=== PATIENT | female | born 1970 | race Caucasian/White ===

== ENCOUNTER 2023-05-30 15:47 | Emergency (ER) | payer MEDICAID, SELFPAY ==
[2023-05-30 15:49] VITALS: BP 133/89; PULSE 99; RESP 16; TEMP 36.4; O2SAT 99; BMI 21.1
--- NOTE | 2023-05-30 16:01 | EDS_ITS ---
HPI History of Present Illness Chief Complaint: Back Detail of Chief Complaint: Back pain that she localized to the sacrum area status post fall Informant: patient Onset/Context/Timing Onset: Days Context: Sudden Onset Injury: direct trauma Timing: Continuous Quality: Sharp Location: - (Sacrum) Current Severity: Mild Maximum Severity: Moderate Worsened by: improves with Movement and - (And sitting) Relieved by: Nothing Associated Symptoms Associated Symptoms: Negative for Numbness, Tingling, Radiation to Right Leg, Radiation to Left Leg, Fever, Abdominal Pain, Dysuria, Unable to Ambulate, Unable to Transfer, Urinary Retention, Urinary Incontinence, Constipation or Fecal Incontinence Narrative Narrative: Patient is a 53-year-old woman with history of ankylosing spondylisis, fracture coccyx who fell 5 days ago. She slipped. She landed on her buttocks. She localizes pain to the sacral region. She denies perianal discomfort or buttocks pain. She denies bowel or bladder dysfunction. Denies saddle paresthesia or anesthesia. She does have a history of herniated disc with foot drop. This improved with conservative therapy. She denies fever, chills night sweats. She states her son drove her to the hospital. She is a smoker. She recent saw pulmonology. She is scheduled for outpatient pulmonary testing. Prior similar symptoms: Yes Recent Illness/Hospitalization: Yes PFSH PFSH Home Medications naproxen 500 mg tablet 500 mg PO BID #14 tabs 05/30/23 [Rx Last Taken Unknown] Allergy/AdvReac Type Severity Reaction Status Date / Time No Known Allergies Allergy Verified 05/30/23 15:48 Social History (Updated 05/30/23 @ 16:[address] Addy Faith MD) household members: children Smoking Status: Current every day smoker tobacco type: cigarettes alcohol intake: current substance use type: does not use ROS ROS ED Constitutional Constitutional ED: Denies chills, fever(s), subjective or sweats Gastrointestinal Gastrointestinal: Denies abdominal pain, nausea or vomiting Genitourinary Genitourinary ED: Denies dysuria, hematuria or urinary frequency Musculoskeletal Musculoskeletal: Reports back pain; Denies arthralgias, myalgias or neck pain Integumentary Denies rash Neurologic Neurologic: Denies headache(s), paresthesias or weakness Hematologic/Lymphatic Hematologic/Lymphatic: Denies easy bleeding or easy bruising EXAM Physical Exam Const Vital Signs: 05/30/23 15:49 Temperature 97.6 F L Temperature Source Temporal Pulse Rate 99 Respiratory Rate 16 Blood Pressure 133/89 H Blood Pressure Mean 103 Pulse Ox 99 Oxygen Delivery Method Room Air Positive well nourished and well developed Constitutional Narrative: While patient was told me what happened she began to cry. She became hysterical then. General Appearance ED: well developed and NAD; Negative for pallor HEENT Reports moist mucous membranes Negative for trauma or tenderness Eyes PERRL and EOMs intact bilaterally General Eye ED: Negative for pale conjunctiva or scleral icterus Neck No no lymphadenopathy, No supple and No no JVD Neck Narrative: There is no posterior midline cervical pain. Resp normal respiratory effort and clear to auscultation bilaterally Cardio regular rate, regular rhythm, S1 normal heart sound, S2 normal heart sound and no murmurs GI normal to inspection, nondistended, normoactive bowel sounds, soft to palpation, non-tender, non-distended and no masses Back/Spine normal to inspection Back/Spine Narrative: There is no pain ovation over the the thoracic spine. There is pain ovation at the area of the L5-S1 junction and sacrum. There is no pain the patient over the left or right ischial tuberosity. There is no pain ovation over the pubic symphysis. Sensation L3-S1 is normal on the right. Sensation over S1 dermatome is abnormal. Patient states is chronic. EHL may be slightly diminished on the left compared to the right. Gait was observed. There is no foot drop. Able to walk on heels and toes. Cervical Spine: Negative for cervical spine tenderness Thoracic Spine / Upper Back: paraspinal muscle tenderness Lumbar Spine / Lower Back: straight leg raise negative bilaterally; Negative for ROM limited Extremity normal to inspection and no clubbing, cyanosis or edema General Extremety ED: Negative for edema or tenderness General Extremity: Negative for edema Neuro oriented x3 and no sensory deficits noted Sensorium / Orientation: alert Deep Tendon Reflexes: Rt Patellar (L4): 3+, Lt Patellar (L4): 3+, Rt Ankle (S1): 3+ and Lt Ankle (S1): 3+ Deep Tendon Reflexes Back: Rt Patellar (L4): 3+, Lt Patellar (L4): 3+, Rt Ankle (S1): 3+ and Lt Ankle (S1): 3+ Plantar Reflex: Downgoing: bilateral (There is no clonus.) Psych Mood & Affect: depressed and tearful Skin no rashes or lesions noted and no wounds General Skin Exam: Negative for jaundice or pallor MDM MDM MDM Narrative Medical decision making narrative: With history of fall and ankle spondylitis will obtain x-ray to assess for fracture. She was medicated with oral Naprosyn and [place]. She requested no injections. History & Record Review Additional record(s) reviewed:: Prior outpatient record (Ankylosing spondylitis) Radiography Chest X-Ray - ED: Read by ED Physician (Three-view x-ray of the LS-spine reveals no acute fracture, subluxation or dislocation. There is minimal degenerative changes noted. Disc spaces normal. This is independent reviewed interpreted by me.) Diagnostic Testing: Clinical Impression(s) from Imaging Studies Lumbar Spine X-Ray 05/30/23 16:25 IMPRESSION: Minimal degenerative changes of the lumbar spine. Electronically Signed: Paul Rocha DO at 17:05 EDT Reading Location ID and State: [facility] / [place] Tel [phone], Service support , Treatment and Re-Evaluation Narrative: Patient was discharged home on NSAIDs and she has no contraindication. Suspect there is an obstructive component that is making her pain worse. Discharge Plan Triage Chief Complaint: Back ED Provider: Addy Faith Dx/Rx/DC Orders Clinical Impression: Injury due to fall, Hx of ankylosing spondylitis, Contusion of lower back and pelvis, initial encounter Instructions: ED Coccyx or Sacrum Contusion Prescriptions: New naproxen 500 mg tablet 500 mg PO BID Qty: 14 0RF Primary Care Provider: Care Physician,No Primary Referrals: NOT,DEFINED [Non-Staff] - Doctor,Your [Non-Staff] - 1 Week if not improving Activity Restrictions/Additional Instructions: 1. Apply ice to your low back 6-10 times a day for the next 3 to 5 days 2. Take medicine as prescribed 3. The name of your primary care provider is listed on your insurance card issued to you by [facility] [employer] Disposition Disposition: Home, Self Care
--- NOTE | 2023-05-30 16:13 | ED.RN ---
PT WILL NOT KEEP GOWN ON PUT HER OWN CLOTHES BACK ON
[2023-05-30] MEDS: HYDROcodone Bitartrate/Apap 5/325 Tablet PO (16:19)
[2023-05-30] MEDS: Naproxen 500 MG Tablet PO (16:19)
--- NOTE | 2023-05-30 16:25 | RAD_ITS ---
STUDY: X-RAY - LUMBAR SPINE REASON FOR EXAM: Female, 53 years old. Injury/Pain -- History of ankylosing spondylisis TECHNIQUE: 3 view(s) of the lumbar spine were obtained. COMPARISON: None FINDINGS: Normal lumbar lordosis. There is no substantial scoliosis. There is a normal alignment of the vertebrae. Normal vertebral bodies with minimal spurring at the endplates. Normal disc space heights. The soft tissue structures are unremarkable. RAD/Lumbar Spine 2 or 3 Views IMPRESSION: Minimal degenerative changes of the lumbar spine. Electronically Signed: Paul Rocha DO at 17:05 EDT Reading Location ID and State: [facility] / [place] Tel [phone], Service support ,
[2023-05-30 17:34] VITALS: BP 140/78; PULSE 80; RESP 16; TEMP 36.6; O2SAT 100
== END 2023-05-30 17:35 | disposition home or self-care (01) ==
PROVIDERS: Emergency Provider Emergency Medicine; Visit Provider Emergency Medicine
DX: S30.0XXA Contusion of lower back and pelvis, initial encounter (principal); M53.3 Sacrococcygeal disorders, not elsewhere classified; W01.0XXA Fall on same level from slipping, tripping and stumbling without subsequent striking against object, initial encounter; F17.210 Nicotine dependence, cigarettes, uncomplicated
CPT/HCPCS: 72100; 99283

== ENCOUNTER 2023-07-12 04:45 | Emergency (ER) | payer MEDICAID, SELFPAY ==
[2023-07-12 04:46] VITALS: BP 169/92; PULSE 110; RESP 18; TEMP 36.2; O2SAT 99
--- NOTE | 2023-07-12 05:20 | RAD_ITS ---
INDICATION: pain EXAMINATION/TECHNIQUE: X-RAY - XR Spine Lumbar Min 4 Views COMPARISON: No relevant prior comparison study available FINDINGS: VERTEBRAE: Preserved vertebral body height. No fracture. No spondylolisthesis. Preservation of the normal lumbar lordosis. No significant facet arthropathy. DISCS: Disc spaces are maintained. INCLUDED ABDOMEN: Included bowel gas pattern is non-obstructive. RAD/L/S Spine Min 4 Views IMPRESSION: No evidence of lumbar spinal fracture or spondylolisthesis. Electronically Signed: Yovanny Rooney MD at 6:20 EDT ,
[2023-07-12] MEDS: Oxycodone/Apap 5/325 Tablet PO (05:32)
[2023-07-12 05:45] VITALS: BP 169/92; PULSE 110; RESP 18; TEMP 36.2; O2SAT 99
--- NOTE | 2023-07-12 06:38 | EDS_ITS ---
HPI History of Present Illness Chief Complaint: Back Informant: patient Narrative Narrative: Patient is a 53-year-old female with past medical history of ankylosing spondylitis. She reports she has chronic back pain from this but also has a old injury. She states the other day she had a mechanical fall where she reinjured her back. She denies striking her head any loss of consciousness or history of bleeding disorder or blood thinner use. She states she had increased pain since a fall with any type of motion making it difficult to ambulate or sleep. She states there is been no loss of bowel or bladder control and she denies any history of IV drug use. However based on the persistent pain and difficulty sleeping she presents for evaluation [facility] Medical History no medical history Home Medications ?Medication ?Instructions ?Recorded ?Last Taken ?Type naproxen 500 mg tablet 500 mg PO BID #14 tabs 05/30/23 Unknown Rx oxycodone-acetaminophen 5 mg-325 1 tab PO Q6H PRN pain 5 days #20 07/12/23 Unknown Rx mg tablet (Percocet) tabs Allergy/AdvReac Type Severity Reaction Status Date / Time No Known Allergies Allergy Verified 05/30/23 15:48 Social History (Updated 05/30/23 @ 16:[address] Addy Faith MD) household members: children Smoking Status: Current every day smoker tobacco type: cigarettes alcohol intake: current substance use type: does not use ROS ROS ED Constitutional Constitutional ED: Denies chills or fever(s) Eyes Eyes: Denies change in vision ENT ENT ED: Denies sore throat Cardiovascular Cardiovascular: Denies chest pain Respiratory/Chest Respiratory/Chest: Denies cough or dyspnea Gastrointestinal Gastrointestinal: Denies abdominal pain, diarrhea, nausea or vomiting Genitourinary Genitourinary ED: Denies dysuria Musculoskeletal Musculoskeletal: Reports back pain Integumentary Denies rash Neurologic Neurologic: Denies headache(s), paresthesias or weakness Hematologic/Lymphatic Hematologic/Lymphatic: Denies easy bleeding or easy bruising EXAM Physical Exam Const Vital Signs: 07/12/23 04:46 07/12/23 05:45 Temperature 97.1 F L 97.1 F L Temperature Source Temporal Pulse Rate 110 H 110 H Respiratory Rate 18 18 Blood Pressure 169/92 H 169/92 H Blood Pressure Mean 117 117 Pulse Ox 99 99 Oxygen Delivery Method Room Air Positive well nourished and well developed General Appearance ED: well developed; Negative for pallor HEENT HEENT Narrative: Normocephalic atraumatic Eyes PERRL and EOMs intact bilaterally General Eye ED: Negative for scleral icterus Neck supple Resp normal respiratory effort and clear to auscultation bilaterally Cardio regular rhythm Rate: tachycardic and other Other Details: Tachycardic rate with regular rhythm Radial and carotid pulses are equal and symmetric GI normal to inspection, nondistended, normoactive bowel sounds, non-tender, non- distended and no masses GI Narrative: No voluntary guarding or rigidity or pulsatile mass Auscultation: normoactive bowel sounds Palpation: soft Back/Spine no CVA tenderness Back/Spine Narrative: No bony deformity or step-off of the thoracic or lumbar spine patient does have midline lumbar tenderness with palpation as well as bilateral paralumbar tenderness and spasm that worsens with motion No saddle anesthesia. Negative straight leg raise. No clonus or Babinski. Patellar reflexes are plus 1 out of 4 bilaterally Extremity normal to inspection Extremity Narrative: No asymmetric edema no pitting edema negative Homans' sign bilaterally Neuro oriented x3, CN's II-XII intact bilaterally and no sensory deficits noted Sensorium / Orientation: alert Psych Psych Narrative: Patient has a tearful/anxious affect Mood & Affect: anxious and tearful Skin no rashes or lesions noted and no wounds General Skin Exam: Negative for jaundice or pallor MDM MDM MDM Narrative Medical decision making narrative: Patient arrived to the ER hypertensive and tachycardic but was felt this was secondary to pain. She reported a longstanding history of back problems but states that the pain worsened after a mechanical fall. As she reported the fall was mechanical there is low concern for cardiac or syncopal cause and I do not feel there is need for laboratory testing. She also denies any loss of bowel or bladder control or IV drug use and my concern for cauda equina versus epidural abscess is low. Based on her history there is higher likelihood for potential compression fracture or spondylolisthesis so an x-ray was ordered. X-ray revealed no signs of acute trauma. After patient was treated in ER she had resolution of her pain and felt much better. Therefore at this time with negative x-rays as well as improvement of pain with treatment did not feel there is need for further evaluation and she is otherwise safe for discharge History & Record Review Discussion w/independent historian: Patient Radiography Diagnostic Testing: Clinical Impression(s) from Imaging Studies Lumbar Spine X-Ray 07/12/23 05:20 IMPRESSION: No evidence of lumbar spinal fracture or spondylolisthesis. Electronically Signed: Yovanny Rooney MD at 6:20 EDT Reading Location ID and State: [facility] / [place] Tel , Service support , X-ray of the lumbar spine as interpreted by the emergency medicine physician reveals no acute compression fracture or spondylolisthesis Discharge Plan Triage Chief Complaint: Back ED Provider: Jose Alfaro Dx/Rx/DC Orders Clinical Impression: Lumbar contusion, Ankylosing spondylitis Instructions: Ankylosing Spondylitis in Adults, ED Back Contusion Prescriptions: New oxycodone-acetaminophen [Percocet] 5-325 mg tablet 1 tab PO Q6H PRN (Reason: pain) 5 Days Qty: 20 0RF No Action naproxen 500 mg tablet 500 mg PO BID Qty: 14 0RF Primary Care Provider: Care Physician,No Primary Referrals: Care Physician,No Primary [Primary Care Provider] - Activity Restrictions/Additional Instructions: Please continue home medications as directed by your doctor and return to the ER should you have any further concerns or worsening of symptoms Print Language: Greenlandic Disposition Disposition: Home, Self Care Discharge Date/Time: 07/12/23 07:15
== END 2023-07-12 07:15 | disposition home or self-care (01) ==
PROVIDERS: Emergency Provider Emergency Medicine; Visit Provider Emergency Medicine
DX: S30.0XXA Contusion of lower back and pelvis, initial encounter (principal); M45.9 Ankylosing spondylitis of unspecified sites in spine; G89.29 Other chronic pain; W19.XXXA Unspecified fall, initial encounter; F17.210 Nicotine dependence, cigarettes, uncomplicated; Z79.1 Long term (current) use of non-steroidal anti-inflammatories (NSAID)
CPT/HCPCS: 72110; 99282; J7030; A4216

== ENCOUNTER 2023-10-27 05:24 | Emergency (ER) | payer MEDICAID, SELFPAY ==
[2023-10-27 05:27] VITALS: BP 163/95; PULSE 88; RESP 16; TEMP 36.2; O2SAT 98; BMI 21.9
--- NOTE | 2023-10-27 05:34 | RAD_ITS ---
INDICATION: FALL EXAMINATION/TECHNIQUE: X-RAY - LEFT XR Shoulder Min 2 Views COMPARISON: None. FINDINGS: SOFT TISSUES: Calcification lateral to the humeral head may represent calcific tendinopathy. BONES/JOINTS: No fracture or dislocation. Mild degenerative changes of the acromioclavicular joint and glenohumeral joint. No erosive changes. RAD/Shoulder min 2 Views IMPRESSION: No fracture or dislocation. Electronically Signed: Ron Iqbal DO at 6:46 EDT ,
--- NOTE | 2023-10-27 05:34 | RAD_ITS ---
INDICATION: FALL EXAMINATION/TECHNIQUE: X-RAY - LEFT XR Hip Unilateral with Pelvis when performed; 2-3 Views COMPARISON: None. FINDINGS: SOFT TISSUES: Unremarkable. BONES/JOINTS: No fracture or dislocation. No significant degenerative changes. No erosive changes. RAD/HIP, UNI W/ Pelvis 2-3 Views IMPRESSION: No fracture or dislocation. Electronically Signed: Ron Iqbal DO at 6:48 EDT ,
[2023-10-27] MEDS: oxyCODONE 5 MG Tablet 10 MG PO ×2 (06:34)
--- NOTE | 2023-10-27 06:36 | EX.ED.DYSGE1 ---
HPI History of Present Illness Chief Complaint: General Illness Informant: patient Narrative Narrative: Patient is a 53-year-old female with past medical history of ankylosing spondylitis. She also has a history of seizure disorder. She reports that earlier in the week she had a seizure versus syncopal event where she was walking out of her bedroom towards the dinner table and the next thing she knows she was waking up on the floor. She was taken to an outside facility where she states she was admitted and worked up for this syncope versus seizure and discharged. She states that she believes she injured her shoulder and hip when she had the events and despite taking her medications and [id number] medications there has been no improvement of the pain so she is concerned for potential injury and comes in for evaluation [facility] Medical History (Updated 10/28/23 @ 02:[address] Joes Alfaro, DO) Ankylosing spondylitis Epilepsy Home Medications ?Medication ?Instructions ?Recorded ?Last Taken ?Type duloxetine 60 mg capsule,delayed 60 mg PO DAILY 10/27/23 Unknown History release (Cymbalta) fluticasone fur. 200 mcg-umeclid 1 ea inhalation DAILY 10/27/23 Unknown History 62.5 mcg-vilant 25 mcg inhalat.powder (Trelegy Ellipta) fluticasone propionate 50 2 spray intranasal DAILY PRN 10/27/23 Unknown History mcg/actuation nasal congestion spray,suspension gabapentin 600 mg tablet 600 mg PO TID 10/27/23 Unknown History hydroxyzine HCl 25 mg tablet 25 mg PO DAILY PRN anxiety 10/27/23 Unknown History lamotrigine 150 mg tablet 150 mg PO DAILY 10/27/23 Unknown History oxycodone-acetaminophen 10 mg-325 1 tab PO Q6H PRN pain 3 days #12 10/27/23 Unknown Rx mg tablet (Percocet) tabs Allergy/AdvReac Type Severity Reaction Status Date / Time No Known Allergies Allergy Verified 10/27/23 05:25 Social History (Updated 05/30/23 @ 16:[address] Addy Faith MD) household members: children Smoking Status: Current every day smoker tobacco type: cigarettes alcohol intake: current substance use type: does not use ROS ROS ED Constitutional Constitutional ED: Denies chills or fever(s) Eyes Eyes: Denies blurry vision or change in vision ENT ENT ED: Denies sore throat Cardiovascular Cardiovascular: Denies chest pain, palpitations or racing heartbeat Respiratory/Chest Respiratory/Chest: Denies cough or dyspnea Gastrointestinal Gastrointestinal: Denies abdominal pain, diarrhea, nausea or vomiting Genitourinary Genitourinary ED: Denies dysuria Musculoskeletal Musculoskeletal: Reports other Details: Positive left shoulder and left hip pain ; Denies neck pain Integumentary Denies rash Neurologic Neurologic: Denies headache(s) Hematologic/Lymphatic Hematologic/Lymphatic: Denies easy bleeding or easy bruising EXAM Physical Exam Const Vital Signs: 10/27/23 05:27 10/27/23 05:27 10/27/23 07:06 Temperature 97.2 F L 97.8 F Temperature Source Temporal Pulse Rate 88 69 Respiratory Rate 16 16 Respiratory Effort Normal Non-Labored Respiratory Pattern Normal Blood Pressure 163/95 H 141/99 H Blood Pressure Mean 117 113 Pulse Ox 98 99 Oxygen Delivery Method Room Air Positive well nourished and well developed General Appearance ED: well developed; Negative for pallor HEENT HEENT Narrative: Normocephalic atraumatic Eyes PERRL and EOMs intact bilaterally General Eye ED: Negative for scleral icterus Neck supple Resp normal respiratory effort and clear to auscultation bilaterally Cardio regular rate and regular rhythm GI normal to inspection, nondistended, normoactive bowel sounds, non-tender, non-distended and no masses Auscultation: normoactive bowel sounds Palpation: soft Back/Spine Back/Spine Narrative: No bony deformity or step-off of the thoracic or lumbar spine no midline tenderness to palpation Extremity Extremity Narrative: Bilateral upper and lower extremities are neurovascularly intact There is mild diffuse pain on palpation of the left shoulder without bony deformity joint effusion or sulcus sign Pelvis is stable there is no shortening or external rotation of either lower extremity. Mild diffuse pain on palpation of the left lateral hip. Despite diffuse pain to the shoulder and hip patient is able to bear weight and move all extremities without difficulty. Neuro oriented x3 and CN's II-XII intact bilaterally Sensorium / Orientation: alert Motor Exam: strength 5/5 throughout Psych Psych Narrative: Tearful/anxious affect Skin no rashes or lesions noted and no wounds Skin Narrative: No overlying soft tissue findings to suggest trauma or infection General Skin Exam: Negative for jaundice or pallor MDM MDM MDM Narrative Medical decision making narrative: Patient presented to the ER hypertensive but otherwise with stable vital. She reported that she sustained injuries after a syncopal versus seizure event which have been completely worked up at an outside facility and therefore I felt no need to repeat this workup. With differential diagnosis being contusion versus dislocation versus fracture and elect to perform x-ray. Imaging studies revealed no signs of acute trauma or joint effusion. By exam she does not have overlying soft tissue changes to suggest septic joint cellulitis abscess or gout/pseudogout. Therefore this time I do not feel there is need for further workup and she is given symptomatic medication and discharged. Radiography Diagnostic Testing: Clinical Impression(s) from Imaging Studies Hip/Pelvis X-Ray 10/27/23 05:34 IMPRESSION: No fracture or dislocation. Electronically Signed: Ron Iqbal DO at 6:48 EDT , Shoulder X-Ray 10/27/23 05:34 IMPRESSION: No fracture or dislocation. Electronically Signed: Ron Iqbal DO at 6:46 EDT , X-ray of the left shoulder as interpreted by the emergency medicine physician reveals no acute fracture dislocation or joint effusion X-ray of the left hip with 1 view pelvis as interpreted by the emergency medicine physician reveals no acute fracture or dislocation or joint effusion Discharge Plan Triage Chief Complaint: General Illness ED Provider: Jose Alfaro Dx/Rx/DC Orders Clinical Impression: Contusion of left shoulder, Contusion of hip, left, Ankylosing spondylitis, Epilepsy Instructions: Bruises (Contusions), Ankylosing Spondylitis in Adults Prescriptions: New oxycodone-acetaminophen [Percocet] 10-325 mg tablet 1 tab PO Q6H PRN (Reason: pain) 3 Days Qty: 12 0RF No Action lamotrigine 150 mg tablet 150 mg PO DAILY gabapentin 600 mg tablet 600 mg PO TID hydroxyzine HCl 25 mg tablet 25 mg PO DAILY PRN (Reason: anxiety) duloxetine [Cymbalta] 60 mg capsule,delayed release(DR/EC) 60 mg PO DAILY fluticasone propionate 50 mcg/actuation spray,suspension 2 spray INTRANASAL DAILY PRN (Reason: congestion) Trelegy Ellipta 200-62.5-25 mcg blister with device 1 ea INHALATION DAILY Primary Care Provider: Care Physician,No Primary Referrals: Care Physician,No Primary [Primary Care Provider] - Activity Restrictions/Additional Instructions: Please follow-up with your family doctor for repeat evaluation and continue all of your home medications as directed. If you have any further concerns or worsening of symptoms please return to the ER for repeat evaluation Print Language: French Disposition Disposition: Home, Self Care Discharge Date/Time: 10/27/23 07:06
[2023-10-27 07:06] VITALS: BP 141/99; PULSE 69; RESP 16; TEMP 36.6; O2SAT 99
== END 2023-10-27 07:06 | disposition home or self-care (01) ==
PROVIDERS: Emergency Provider Emergency Medicine; Visit Provider Emergency Medicine
DX: S70.02XA Contusion of left hip, initial encounter (principal); M45.9 Ankylosing spondylitis of unspecified sites in spine; G40.909 Epilepsy, unspecified, not intractable, without status epilepticus; S40.012A Contusion of left shoulder, initial encounter; W18.30XA Fall on same level, unspecified, initial encounter; Y93.01 Activity, walking, marching and hiking; Z79.51 Long term (current) use of inhaled steroids; Z79.899 Other long term (current) drug therapy; F17.210 Nicotine dependence, cigarettes, uncomplicated
CPT/HCPCS: 73030; 73502; 99284

== ENCOUNTER 2024-01-24 14:40 | Emergency (ER) | payer MEDICAID, SELFPAY ==
[2024-01-24 14:41] VITALS: BP 142/93; PULSE 114; RESP 18; TEMP 36.8; O2SAT 98; BMI 22.1
--- NOTE | 2024-01-24 15:06 | ED.VIS.BACK ---
HPI History of Present Illness Chief Complaint: Back Informant: patient Onset/Context/Timing Onset: Days Context: Gradual Onset Timing: Continuous Quality: - (Shock like) Location: Thoracic, Lumbar, Buttock and Right Leg Worsened by: improves with Movement and Ambulation Relieved by: Nothing Associated Symptoms Associated Symptoms: Tingling and Radiation to Right Leg; Negative for Numbness, Radiation to Left Leg, Fever, Abdominal Pain, Dysuria, Unable to Ambulate, Unable to Transfer, Urinary Retention, Urinary Incontinence, Constipation or Fecal Incontinence Narrative Narrative: Patient presents with low back pain that has been getting worse over the past few days. Patient states she slipped and fell and landed on her right hip recently. Patient states she was also recently diagnosed with COVID and pneumonia. Patient states this has flared up her back pain. Patient states she also has a history of ankylosing spondylitis and fibromyalgia. Patient admits to some tingling down her right leg. Patient admits to some pain shooting to her posterior thigh. Patient denies any radiation of the pain to her abdomen. Patient denies any bowel or bladder changes. Patient denies any saddle anesthesia. [facility] Medical History (Updated 01/24/24 @ 17:[address] Edwar Fitzpatrick, DO) Depression Anxiety Fibromyalgia Ankylosing spondylitis Epilepsy Home Medications ?Medication ?Instructions ?Recorded ?Last Taken ?Type duloxetine 60 mg capsule,delayed 60 mg PO DAILY 10/27/23 Unknown History release (Cymbalta) fluticasone fur. 200 mcg-umeclid 1 ea inhalation DAILY 10/27/23 Unknown History 62.5 mcg-vilant 25 mcg inhalat.powder (Trelegy Ellipta) fluticasone propionate 50 2 spray intranasal DAILY PRN 10/27/23 Unknown History mcg/actuation nasal congestion spray,suspension gabapentin 600 mg tablet 600 mg PO TID 10/27/23 Unknown History hydroxyzine HCl 25 mg tablet 25 mg PO DAILY PRN anxiety 10/27/23 Unknown History lamotrigine 150 mg tablet 150 mg PO DAILY 10/27/23 Unknown History oxycodone-acetaminophen 5 mg-325 1 tab PO Q8H PRN pain 3 days #9 01/24/24 Unknown Rx mg tablet (Percocet) tabs Allergy/AdvReac Type Severity Reaction Status Date / Time No Known Allergies Allergy Verified 01/24/24 14:41 Surgical History History of herniorrhaphy Hx of section Social History household members: children Smoking Status: Current every day smoker tobacco type: cigarettes alcohol intake: current substance use type: does not use ROS ROS ED Constitutional Constitutional ED: Denies chills or fever(s) Eyes Eyes: Denies blurry vision or change in vision ENT ENT ED: Denies rhinorrhea or sore throat Cardiovascular Cardiovascular: Denies chest pain or palpitations Respiratory/Chest Respiratory/Chest: Reports cough; Denies dyspnea Gastrointestinal Gastrointestinal: Reports nausea; Denies vomiting Genitourinary Genitourinary ED: Denies dysuria or hematuria Musculoskeletal Musculoskeletal: Reports back pain and neck pain Integumentary Denies abscess or rash Neurologic Neurologic: Reports headache(s); Denies weakness Allergic/Immunologic Allergic/Immunologic ED: Denies mouth swelling or urticaria EXAM Physical Exam Const Vital Signs: 01/24/24 14:41 Temperature 98.3 F Temperature Source Oral Pulse Rate 114 H Respiratory Rate 18 Blood Pressure 142/93 H Blood Pressure Mean 109 Pulse Ox 98 Oxygen Delivery Method Room Air Positive well nourished and well developed General Appearance ED: well developed and NAD HEENT Reports moist mucous membranes Neck supple and no JVD Back/Spine Back/Spine Narrative: There is tenderness over the lumbar spine and paraspinal muscles. There is also tenderness over the right sacroiliac joint. There is tenderness over the sacrum. There is no edema or ecchymosis. Range of motion was slightly limited in all motions of the lumbar spine secondary to pain. Strength is 5/5 bilaterally in the lower extremities. There are no sensory deficits noted. Deep tendon reflexes are 2/4 bilaterally in the lower extremities. Straight leg raises were negative bilaterally. Patient was able to get out of bed and stand on her own without difficulty. Lumbar Spine / Lower Back: ROM limited and straight leg raise negative bilaterally Extremity normal to inspection General Extremety ED: Negative for edema or tenderness General Extremity: Negative for edema Neuro oriented x3 and no sensory deficits noted Sensorium / Orientation: alert Motor Exam: strength 5/5 throughout Deep Tendon Reflexes: Rt Patellar (L4): 2+, Lt Patellar (L4): 2+, Rt Ankle (S1): 2+ and Lt Ankle (S1): 2+ Deep Tendon Reflexes Back: Rt Patellar (L4): 2+, Lt Patellar (L4): 2+, Rt Ankle (S1): 2+ and Lt Ankle (S1): 2+ MDM MDM MDM Narrative Medical decision making narrative: Differential diagnosis includes lumbosacral strain, sacroiliitis, ankylosing spondylitis, hip fracture, and contusion. X-rays of the right hip will be obtained to assess for fracture and arthritis. Radiography Diagnostic Testing: Clinical Impression(s) from Imaging Studies Hip/Pelvis X-Ray 01/24/24 15:53 IMPRESSION: No evidence for acute fracture of the pelvis or right hip Electronically Signed: Ron Solano MD at 16:50 EST , X-rays of the right hip were obtained. There are 3 views. On my independent interpretation, there is no acute fracture or dislocation noted. Radiologist also interpreted the x-rays and agrees. Treatment and Re-Evaluation Narrative: I offered the patient an injection of morphine. Patient states she would prefer to have the pill and requested 10 mg of oxycodone. Patient was given a dose of 5 mg of oxycodone. Patient was given a prescription for a short course of Percocet. Patient was instructed to follow-up with her primary care physician in 3 to 5 days. Patient was instructed return if worse in any way. Patient understood and was agreeable with plan. All questions were answered. Discharge Plan Triage Chief Complaint: Back ED Provider: Edwar Fitzpatrick Dx/Rx/DC Orders Clinical Impression: Sacroiliitis, Fibromyalgia Instructions: ED Sacroiliitis Prescriptions: New oxycodone-acetaminophen [Percocet] 5-325 mg tablet 1 tab PO Q8H PRN (Reason: pain) 3 Days Qty: 9 0RF Discontinued oxycodone-acetaminophen [Percocet] 10-325 mg tablet 1 tab PO Q6H PRN (Reason: pain) 3 Days Qty: 12 0RF No Action lamotrigine 150 mg tablet 150 mg PO DAILY gabapentin 600 mg tablet 600 mg PO TID hydroxyzine HCl 25 mg tablet 25 mg PO DAILY PRN (Reason: anxiety) duloxetine [Cymbalta] 60 mg capsule,delayed release(DR/EC) 60 mg PO DAILY fluticasone propionate 50 mcg/actuation spray,suspension 2 spray INTRANASAL DAILY PRN (Reason: congestion) Trelegy Ellipta 200-62.5-25 mcg blister with device 1 ea INHALATION DAILY Primary Care Provider: Patricia Montalvo MD Referrals: Patricia Montalvo MD [Other] - 2 Days Care Physician,No Primary [Non-Staff] - Activity Restrictions/Additional Instructions: Any further pain medication must be prescribed by your primary care physician or pain management physician. Print Language: Lithuanian Disposition Disposition: Home, Self Care
[2024-01-24] MEDS: oxyCODONE 5 MG Tablet PO (15:43)
--- NOTE | 2024-01-24 15:53 | RAD_ITS ---
STUDY: X-RAY - PELVIS AND RIGHT HIP REASON FOR EXAM: Female, 53 years old. Injury/Pain TECHNIQUE: 3 views of the pelvis and hip. COMPARISON: None. FINDINGS: There is a non-specific bowel gas pattern. Normal visualized soft tissue structures. Normal bilateral iliac wings, sacroiliac joints and visualized sacrum. Normal bilateral superior and inferior pubic rami. Normal pubic symphysis. Normal bilateral ischial tuberosities. Normal visualized femoral head. Normal acetabulum. Normal hip joint. RAD/HIP, UNI W/ Pelvis 2-3 Views IMPRESSION: No evidence for acute fracture of the pelvis or right hip Electronically Signed: Ron Solano MD at 16:50 EST ,
== END 2024-01-24 17:24 | disposition home or self-care (01) ==
PROVIDERS: Emergency Provider Emergency Medicine; Visit Provider Emergency Medicine
DX: M46.1 Sacroiliitis, not elsewhere classified (principal); M45.9 Ankylosing spondylitis of unspecified sites in spine; M79.7 Fibromyalgia; F17.210 Nicotine dependence, cigarettes, uncomplicated; Z79.51 Long term (current) use of inhaled steroids; Z79.899 Other long term (current) drug therapy
CPT/HCPCS: 73502; 99282

== ENCOUNTER 2024-08-21 03:31 | Emergency (ER) | payer MEDICAID, SELFPAY ==
[2024-08-21 03:32] VITALS: BP 170/100; PULSE 107; RESP 16; TEMP 36.7; O2SAT 98; BMI 20.4
[2024-08-21] MEDS: oxyCODONE 5 MG Tablet 10 MG PO (04:05)
--- NOTE | 2024-08-21 04:20 | RAD_ITS ---
PROCEDURE: SHOULDER MIN 2 VIEWS 08/21/2024 REASON FOR EXAM: PAIN TECHNIQUE: SHOULDER MIN 2 VIEWS COMPARISON: None. FINDINGS: Calcific tendinosis at the humeral insertion of the rotator cuff tendons. Mild osteopenia of the visualized bones. Degenerative joint disease. No fracture or dislocation is seen. No lytic or blastic bone lesion is noted. RAD/Shoulder min 2 Views IMPRESSION: No evidence for acute abnormality. Reading Location[facility]
--- NOTE | 2024-08-21 04:20 | RAD_ITS ---
PROCEDURE: HIP, UNI W/ PELVIS 2-3 VIEWS 08/21/2024 REASON FOR EXAM: PAIN TECHNIQUE: HIP, UNI W/ PELVIS 2-3 VIEWS COMPARISON: 01/24/2024. FINDINGS: Mild osteopenia of the visualized bones. Degenerative joint disease. No fracture or dislocation is seen. No lytic or blastic bone lesion is noted. RAD/HIP, UNI W/ Pelvis 2-3 Views IMPRESSION: No evidence for acute abnormality. Reading Location: [facility]
--- OUTSIDE RECORDS SUMMARY | 2024-08-21 04:29 | XMS RPT_ITS | CCD ---
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 Lymphadenopathy Take 1 tablet by mouth every 4 hours as needed for Pain for up to 3 days. 10 tablet 0 07/01/2020 07/04/2020 Active Start: 06-30-2020 HYDROcodone-ac etaminophen (NORCO) 5-325 MG per tablet 1 tablet Start: 06-30-2020 End: 06-30-2020 HYDROcodone-acetaminophen (N ORCO) 5-325 MG per tablet 1 tablet End: 07-22-2023 take 1 tablet by mouth every six hours as needed HYDROcodone-Acetaminophen (NORCO) 10-325 mg per tablet Take 1 tablet by mouth every 6 hours as needed. 07/22/2023 Discontinued Comment on above: Take 1 tablet by vivi th every 6 hours as needed. albuterol sulfate HFA 108 (90 Base) MCG/ACT inhaler (2 sources) Start: 07-29-19 take 2 puff(s) by inhalation every six hours as needed for wheezing albuterol sulfate HFA 108 (90 Base) MCG/ACT inhaler Indications: Bronchitis Inhale 2 puffs into the lungs every 6 hours as needed for Wheezing or Shortness of Breath 1 Inhaler 3 07/29/2019 Active amoxicillin 875 mg / clavulanate 125 mg oral tablet (2 sources) Penicillin-class Antibacterial Start: 02-28-20 End: 03-04-19 take 1 tablet by mouth twice daily amoxicillin-clavul anate (AUGMENTIN) 875-125 MG per tablet Take 1 tablet by mouth 2 times daily for 5 days 10 tablet 02/28/2024 03/04/2024 Active Start: 02-28-2024 End: 02-28-2024 1 tablet, Oral, ONCE, 1 dose , On Sat02/28/24 at 0430, Antimicrobial Indications: Skin and Soft Tissue Infection ascorbic acid 1000 mg oral tablet (1 source) Vitamin C Start: 08-04-2021 take 1 tablet by mouth once daily Ascorbic Acid (VITAMIN C) 1000 MG tablet Indications: COVID Take 1 tablet by mouth daily 30 tablet 3 08/04/2021 Active azithromycin 500 mg oral tablet (2 sources) Macrolide Antimicrobial Start: 08-04-2021 take 1 tablet by mouth once daily azithromycin (ZITHROMAX) 500 MG tablet Indications: COVID Take 1 tablet by mouth daily 5 tablet 0 08/04/2021 Active Start: 07-29-2019 End: 08-03-2019 take 1 tablet by mouth once daily azithromycin (ZITHROMAX) 500 MG tablet Indications: Bronchitis , Acute sinusitis, recurrence not specified, unspecified location Take 1 tablet by mouth daily for 5 days 5 tablet 0 07/29/2019 08/03/2019 Active cephalexin 500 mg oral capsule (5 sources) Cephalosporin Antibacterial Start: 01-04-2024 End: 07-07-2024 take 1 capsule by mouth every eight hours Cephalexin ([id number] MG) 500 MG CAP Active 500 MG PO EVERY 8 HOURS for paronychia 21 09January 04, 2024 8:39am cyclobenzaprine hydrochloride 10 mg oral tablet (20 sources) Muscle Relaxant Start: 08-20-2024 take 1 tablet by mouth three times daily as needed for muscle spasms cyclobenzaprine (Flexeril) 10 mg tablet Indications: Acute on chronic back pain Take 1 tablet (10 mg) by mouth 3 times a day as needed for muscle spasms. 17 tablet 08/20/2024 Active Start: 06-10-2024 End: 06-20-2024 take 1 tablet by mouth twice daily as needed for muscle spasms cyclobenzaprine (FLEXERIL) 5 MG tablet Take 1 tablet by mouth 2 times daily as needed for Muscle spasms 10 tablet 06/10/2024 06/20/2024 Active Start: 09-06-2023 End: 05-22-2024 take 1 tablet by mouth three times daily as needed for muscle spasms cyclobenzaprine (Flexeril) 10 mg tablet Indications: Other chronic pain Take 1 tablet (10 mg) by mouth 3 times a day as needed for muscle spasms for up to 5 days. 15 tablet 05/17/2024 8:26 AM EDT 05/17/2024 Active Start: 09-02-2023 End: 09-02-2023 cyclobenzaprine (FLEXERIL) t ablet 10 mg Start: 07-09-2023 End: 07-09-2023 cyclobenzaprine (FLEXERIL) t ablet 5 mg Start: 06-15-2023 take 10 mg by mouth three times daily as needed for muscle spasms Cyclobenzaprine [Flexeril] 10 MG PO THREE TIMES A DAY PRN For Muscle Spasm June 15, 2023 Active AMANDA number [id number] Start: 06-15-2023 take 10 mg by mouth three times daily as needed for muscle spasms Cyclobenzaprine 10 MG PO THREE TIMES A DAY PRN For Muscle Spasm June 15, 2023 Active AMANDA number [id number] Start: 06-15-2023 End: 06-23-2024 take 1 tablet by mouth three times daily Cyclobenzaprine (Flexeril) 10 MG Tab Active 10 MG PO THREE TIMES A DAY June 15, 2023 12:00am AMANDA number [id number] Start: 04-04-2023 End: 09-05-2023 take 1 tablet by mouth twice daily as needed for muscle spasms Cyclobenzaprine HCl ([id number] M1) 10 MG TAB Discontinued 10 MG PO TWICE A DAY NEEDED as needed for spasm April 04, 2023 8:01am September 05, 2023 5:44am Start: 10-30-2022 End: 04-30-2024 take 1 tablet by mouth three times daily as needed for muscle spasms cyclobenzaprine (Fexmid) 7.5 mg tablet Take 1 tablet (7.5 mg) by mouth 3 times a day as needed for muscle spasms. 10/30/2022 04/30/2024 Discontinued (Med List Cleanup) Start: 08-18-2022 End: 09-25-2022 take 1 tablet by mouth every eight hours Cyclobenzaprine Hcl (Cyclobenzaprine Hydrochlo) 10 MG Tab Discontinued 10 MG PO Q8H August 18, 2022 12:00am September 25, 2022 11:52am Start: 07-31-2022 End: 03-25-2024 take 1 tablet by mouth once daily Cyclobenzaprine 10 mg tablet Discontinued 10 MG PO Every Day July 31, 2022 12:00am March 25, 2024 10:18am Start: 06-02-2022 End: 06-08-2022 take 1 tablet by mouth every eight hours as needed cyclobenzaprine 10 mg oral tablet ; 1 tab(s) orally every 8 hours, As Needed Quantity: 15 Refills: 0 Ordered: 02-Jun-2022 Lisa Roque Start: 02-Jun-2022 End: 08-Jun-2022 Generic Substitution Allowed Comments: May cause drowsiness. Alcohol may intensify this effect. Use care when operating dangerous machinery.Obtain medical advice before taking any non-prescription drugs as some may affect the action of this medication. Comment on above: May cause drowsiness . Alcohol may intensify this effect. Use care when operating dangerous machinery.Obtain medical advice before taking any non-prescription drugs as some may affect the action of this medication. dextromethorphan hydrobromide 2 mg/ml / guaiFENesin 20 mg/ml oral solution (1 source) Uncompetitive P-hdlfis-L-aspartate Receptor Antagonist, Sigma-1 Agonist Start: 020 take 10 mL by mouth three times daily as needed for cough guaiFENesin-dextro methorphan (ROBITUSSIN DM) 100-10 MG/5ML syrup Indications: Bronchitis , Acute sinusitis, recurrence not specified, unspecified location Take 10 mLs by mouth 3 times daily as needed for Cough 240 mL 2 07/29/2019 Active diclofenac sodium 0.01 mg/mg topical gel (20 sources) Nonsteroidal Anti-inflammatory Drug Start: 024 diclofenac (Voltaren) 1 % GEL topical gel Apply 2 g topically 4 times daily. 100 g 04/08/2023 Active Start: 11-19-2022 take 1 tablet by vivi th twice daily Diclofenac Sodium (Diclofenac Sodium Dr) 75 MG Tab Active 75 MG PO TWICE A DAY November 19, 2022 12:00am Start: 06-30-2020 diclofenac sod ium (VOLTAREN) 1 % gel 2 g Start: 05-20-2020 End: 06-30-2020 diclofenac sodium (VOLTAREN) 1 % GEL Apply 2 g topically 4 times daily as needed for Pain 100 g 3 05/20/2020 06/30/2020 Discontinued (LIST CLEANUP) Start: 05-20-2020 diclofenac sod ium (VOLTAREN) 1 % GEL famotidine 20 mg oral tablet (2 sources) Histamine-2 Receptor Antagonist Start: 08-06-2024 take 1 tablet by mouth twice daily famotidine (PEPCID) 20 MG tablet Take 1 tablet by mouth 2 times daily 60 tablet 08/06/2024 Active 30 actuat fluticasone furoate 0.1 mg/actuat / umeclidinium 0.0625 mg/actuat / vilanterol 0.025 mg/actuat dry powder inhaler (4 sources) Anticholinergic, Corticosteroid, beta2-Adrenergic Agonist Start: 12-03-2018 take 1 puff(s) by inhalation once daily fluticasone-umec lidin-vilant (TRELEGY ELLIPTA) 100-62.5-25 MCG/INH AEPB Indications: Cough Inhale 1 puff into the lungs daily 1 each 0 12/03/2018 Active Fluticasone-Umeclid in-Vilanter (9 sources) Start: 05-20-2024 Fluticasone-Umec lidin-Vilanter (Trelegy Ellipta) 200-62.5-25 mcg blister with device Active 1 INH INH Every Day 60 May 20, 2024 12:10pm Start: 08-08-2022 End: 11-25-2022 Avnhmsgexub-Tznnhzzkz-Mjimxq er (Trelegy Ellipta) 200-62.5-25 mcg blister with device Discontinued EACH IH Daily August 07, 2022 11:00pm November 25, 2022 9:56am Start: 08-08-2022 End: 11-25-2022 Kofcuiqskkx-Rmfrptwjb-Dxjghf er (Trelegy Ellipta) 200-62.5-25 mcg blister with device Discontinued EACH IH Daily August 08, 2022 12:00am November 25, 2022 10:56am Start: 07-31-2022 End: 05-20-2024 Btsbuyocvmf-Xgayoxacl-Laahpa er (Trelegy Ellipta) 200-62.5-25 mcg blister with device Discontinued 1 INH INH Every Day July 31, 2022 12:00am May 20, 2024 12:11pm Start: 07-31-2022 Fluticasone-Um eclidin-Vilanter (Trelegy Ellipta) 200-62.5-25 mcg blister with device Active 1 INH INH Every Day July 30, 2022 11:00pm Start: 07-31-2022 Fluticasone-Um eclidin-Vilanter (Trelegy Ellipta) 200-62.5-25 mcg blister with device Active 1 INH INH Every Day July 31, 2022 12:00am zubtoftsrgz-lmpchnjwj-znjceb er (TRELEGY ELLIPTA) 200-62.5-25 mcg inhalation powder (2 sources) Start: 03-02-2024 take 1 puff(s) by inhalation once daily jwykpikdhvc-tmltvmgkv-hhtqllma (TRELEGY ELLIPTA) 200-62.5-25 mcg inhalation powder Inhale 1 Puff as instructed once daily. 03/02/2024 Active gbvifckevci-mekwjildl-ngzqop er (TRELEGY-ELLIPTA) 200-62.5-25 mcg blister with device (18 sources) Start: 12-04-2022 take 1 puff(s) by inhalation once daily ggvuksqmldk-dqkduqcaf-bixysmma (TRELEGY-ELLIPTA) 200-62.5-25 mcg blister with device Indications: Medication refill Inhale 1 puff once daily. 60 each 12/04/2022 Active Start: 12-04-2022 take 1 puff(s) by inhalation once daily uizqgjoptve-bewgqiiww-cynorozg (TRELEGY-ELLIPTA) 200-62.5-25 mcg blister with device Indications: Medication refill Inhale 1 puff once daily. 60 each 0 12/04/2022 Active Mdngaebkfru-Gsnnulitfkvn-Msy an (10 sources) Fluticasone-Umec lidinium-Vilan (TRELEGY ELLIPTA1 AE1) 1 AER Aero Pow Br Act Active 1 AER IN DAILY 60 actuat formoterol fumarat e 0.005 mg/actuat / mometasone furoate 0.1 mg/actuat metered dose inhaler (1 source) Corticost eroid, beta2-Adr energic Agonist St ar t: 22 take 1 puff(s) by inhalation twice daily mometasone-formoterol (DULERA) 100-5 MCG/ACT inhaler Indications: Bronchitis Inhale 1 puff into the lungs 2 times daily 1 each 3 09/11/2021 Active gabapentin 300 mg oral capsu le (20 sources) Anti-epil eptic Agent St ar t: 25 take 1 capsule by mouth once 300 mg, oral, Once, On 07/12/24 at 0340, For 1 dose, Capsules may be opened and sprinkled on food (eg, applesauce, orange juice, pudding Start: 03-17-2024 End: 07-07-2024 take 1 tablet by mouth three times daily gabapentin (NEURONTIN) 600 MG tablet Take 1 tablet by mouth 3 times daily for 12 days. 36 tablet 03/17/2024 05/15/2024 Discontinued (LIST CLEANUP) Start: 03-08-2024 take 600 mg by mouth three times daily 600 mg, Oral, 3 TIMES DAILY, First dose on 03/08/24 at 0900, Until Discontinued Start: 06-02-2023 take 300 mg by mouth three times daily Gabapentin Active 300 MG PO 3 Times a Day June 02, 2023 12:00am Start: 04-04-2023 End: 08-01-2023 take 1 capsule by mouth every twelve hours Gabapentin ([id number] MG) 100 MG CAP Discontinued 100 MG PO EVERY 12 HOURS April 04, 2023 8:01am August 01, 2023 6:44am Start: 07-31-2022 End: 05-20-2024 take 1 capsule by mouth every eight hours Gabapentin 100 mg capsule Discontinued 100 MG PO Q8H July 31, 2022 12:00am May 20, 2024 11:15am Start: 07-02-2022 End: 11-25-2022 take 100 mg by mouth three times daily Gabapentin Discontinued 100 MG PO 3 Times a Day August 08, 2022 12:00am November 25, 2022 10:55am take 1 tablet by vivi th three times daily gabapentin (Neurontin) 800 mg tablet Take 1 tablet (800 mg) by mouth 3 times a day. Active Comment on above: Take 100 mg by mouth three times daily. It is very important that you take or use this exactly as directed. Do not skip doses or discontinue unless directed by your doctor.May cause drowsiness. Alcohol may intensify this effect. Use care when operating dangerous machinery. 12 hr guaiFENesin 600 mg extended release oral tablet (20 sources) Start: End: take 1 tablet by mouth twice daily guaiFENesin (MUCINEX) 600 MG extended release tablet Take 1 tablet by mouth 2 times daily for 15 days 30 tablet 08/01/2024 08/16/2024 Active Start: 07-01-2024 End: 07-16-2024 take 1 tablet by mouth twice daily guaiFENesin (MUCINEX) 600 MG extended release tablet Take 1 tablet by mouth 2 times daily for 15 days 30 tablet 07/01/2024 07/16/2024 Active Start: 03-13-2024 take 1 tablet by vivi th every twelve hours Guaifenesin 600 mg tablet extended release 12hr Active MG PO March 13, 2024 1:00am End: 07-01-2024 take 2 tablets by mouth twice daily as needed for congestion guaiFENesin (MUCINEX) 600 MG extended release tablet Take 2 tablets by mouth 2 times daily as needed for Congestion 07/01/2024 Discontinued (LIST CLEANUP) ibuprofen 600 mg oral tablet (20 sources) Nonsteroidal Anti-inflammatory Drug Start: 08-01-2024 take 1 tablet by mouth every six hours as needed for pain ibuprofen (ADVIL;MOTRIN) 600 MG tablet Take 1 tablet by mouth every 6 hours as needed for Pain 120 tablet 3 08/01/2024 Active Start: 06-03-2024 End: 06-03-2024 take 1 dose by mouth once 600 mg, Oral, ONCE, 1 dose, On Sat06/03/24 at 1500 Start: 11-20-2023 take 1 tablet by vivi th every six hours as needed for pain Ibuprofen ([id number] MG) 600 MG TAB Active 600 MG PO EVERY 6 HOURS NEEDED as needed for pain 56 November 20, 2023 9:03am Start: 09-15-2023 End: 09-15-2023 take 400 mg by mouth once at mealtime as needed for pain 400 mg, oral, Once, On Sat09/15/23 at 0950, For 1 dose, May administer with food to reduce GI upset., If ordered PRN for pain, nurse is permitted to administer this medication for higher pain scores based on patient preference? Yes Start: 09-20-2022 take 1 tablet by vivi th every six hours as needed Ibuprofen 200 mg tablet Active 200 MG PO Q6H as needed September 20, 2022 12:00am Start: 08-28-2022 End: 09-25-2022 take 1 tablet by mouth every six hours as needed Ibuprofen (Motrin) 600 MG Tab Discontinued 600 MG PO EVERY 6 HOURS NEEDED August 28, 2022 12:00am September 25, 2022 11:52am Start: 08-28-2022 End: 07-22-2023 take 800 mg by mouth every eight hours as needed Ibuprofen Discontinued 800 MG PO EVERY 8 HOURS NEEDED August 28, 2022 12:00am September 25, 2022 11:52am Start: 08-12-2022 End: 09-25-2022 take 600 mg by mouth every eight hours as needed Ibuprofen Discontinued 600 MG PO EVERY 8 HOURS NEEDED August 12, 2022 12:00am September 25, 2022 11:52am Start: 07-01-2020 End: 07-06-2020 take 1 tablet by mouth three times daily as needed for pain ibuprofen (ADVIL;MOTRIN) 600 MG tablet Take 1 tablet by mouth 3 times daily as needed for Pain 15 tablet 0 07/01/2020 07/06/2020 Active ibuprofen (ADVIL ;MOTRIN) 400 MG tablet Take 400 mg by mouth every 6 hours as needed for Pain Patient states she takes 12 tablets a day 0 Active Comment on above: Take 800 mg by mouth . ipratropium bromide 0.2 mg/ml inhalation solution (1 source) Anticholinergic Start: 07-01-19 ipratropium (ATROVENT) 0.02 % nebulizer solution 0.5 mg iv contrast (will be provided with radiology test) (1 source) Start: 10-23-19 End: 10-24-19 iv contrast (will be provided with radiology test) Indications: Chronic low back pain with sciatica, sciatica laterality unspecified, unspecified back pain laterality , Sacroiliac pain MRI pelvis ortho Inj, intravenously, once for 1 dose. No IV access, insert saline lock prior to the beginning of sedation, infusion, injection of imaging exam. Discontinue saline lock post exam. If Pt. has a central line or IVAD, may access for administration according to line specific nursing protocol. Once exam is complete flush line and de-access according to line specific nursing protocol in the MR contrast administration guidelines link 1 Each 0 10/22/2022 10/23/2022 Active Comment on above: MRI pelvis ortho Inj , intravenously, once for 1 dose. No IV access, insert saline lock prior to the beginning of sedation, infusion, injection of imaging exam. Discontinue saline lock post exam. If Pt. has a central line or IVAD, may access for administration according to line specific nursing protocol. Once exam is complete flush line and de-access according to line specific nursing protocol in the MR contrast administration guidelines link ketorolac tromethamine 10 mg oral tablet (20 sources) Nonsteroidal Anti-inflammatory Drug, Cyclooxygenase Inhibitor Start: 08-21-19 End: 08-26-19 take 1 tablet by mouth four times daily ketorolac (Toradol) 10 mg tablet Indications: Acute on chronic back pain , Calcific tendinitis of left shoulder Take 1 tablet (10 mg) by mouth 4 times a day for 5 days. 20 tablet 08/20/2024 08/25/2024 Active Start: 08-20-2024 End: 08-20-2024 inject 60 mg by intramuscular injection once 60 mg, intramuscular, Once, On Alicia 08/20/24 at 1055, For 1 dose Start: 08-08-2024 End: 08-08-2024 30 mg, IntraMUSCular, ONCE, 1 dose, On 08/08/24 at 2000, Do not administer for more than 5 days. Start: 08-06-2024 End: 08-06-2024 30 mg, IntraMUSCular, ONCE, 1 dose, On Alicia 08/06/24 at 0445, Do not administer for more than 5 days. Start: 07-08-2024 End: 07-08-2024 30 mg, IntraMUSCular, ONCE, 1 dose, On 07/08/24 at 2100, Do not administer for more than 5 days. Start: 07-01-2024 End: 07-01-2024 inject 1 dose by intramuscular injection once 30 mg, IntraMUSCular, ONCE, 1 dose, On 07/01/24 at 0830 Start: 06-17-2024 End: 06-17-2024 30 mg, IntraMUSCular, Once, 1 dose, On Sat06/17/24 at 0530, Do not administer for more than 5 days. Start: 06-10-2024 End: 06-10-2024 15 mg, IntraVENous, ONCE, 1 dose, On Sat06/10/24 at 1330 Start: 06-05-2024 End: 06-05-2024 15 mg, IntraVENous, ONCE, 1 dose, On Sat06/05/24 at 1700 Start: 06-03-2024 End: 06-03-2024 15 mg, IntraVENous, ONCE, 1 dose, On Sat06/03/24 at 1200, Do not administer for more than 5 days. Start: 05-25-2024 End: 05-25-2024 15 mg, IntraMUSCular, ONCE, 1 dose, On Sat05/25/24 at 1345, Do not administer for more than 5 days. Start: 05-25-2024 End: 05-25-2024 15 mg, IntraVENous, ONCE, 1 dose, On Sat05/25/24 at 1030, Do not administer for more than 5 days. Start: 05-22-2024 End: 05-22-2024 60 mg, IntraMUSCular, ONCE, 1 dose, On Sat05/22/24 at 1400, Do not administer for more than 5 days. Start: 05-17-2024 End: 05-17-2024 15 mg, intravenous, Once, On Sat05/17/24 at 0620, For 1 dose Start: 05-15-2024 End: 05-15-2024 30 mg, IntraMUSCular, ONCE, 1 dose, On Sat05/15/24 at 1115, Do not administer for more than 5 days. Start: 04-30-2024 End: 04-30-2024 inject 30 mg by intramuscular injection once 30 mg, intramuscular, Once, On Alicia 04/30/24 at 0440, For 1 dose Start: 04-24-2024 End: 04-24-2024 30 mg, IntraMUSCular, ONCE, 1 dose, On Sat04/24/24 at 0500, Do not administer for more than 5 days. Start: 04-20-2024 End: 04-20-2024 60 mg, IntraMUSCular, ONCE, 1 dose, On Sat04/20/24 at 1545, Do not administer for more than 5 days. Start: 04-10-2024 End: 04-10-2024 30 mg, IntraVENous, ONCE, 1 dose, On Sat04/10/24 at 0245, Do not administer for more than 5 days. Start: 04-07-2024 End: 04-07-2024 30 mg, IntraMUSCular, ONCE, 1 dose, On Sat04/07/24 at 0500, Do not administer for more than 5 days. Start: 03-17-2024 End: 03-17-2024 15 mg, IntraMUSCular, ONCE, 1 dose, On Tu03/17/24 at 0330, Do not administer for more than 5 days. Start: 03-12-2024 End: 03-12-2024 30 mg, IntraMUSCular, ONCE, 1 dose, On Alicia 03/12/24 at 1915, Do not administer for more than 5 days. Start: 03-08-2024 End: 03-08-2024 15 mg, IntraVENous, ONCE, 1 dose, On Sat03/08/24 at 0100, Do not administer for more than 5 days. Start: 02-28-2024 End: 02-28-2024 30 mg, IntraMUSCular, ONCE, 1 dose, On Sat02/28/24 at 0430, Do not administer for more than 5 days. Start: 02-20-2024 End: 02-20-2024 30 mg, IntraMUSCular, ONCE, 1 dose, On Alicia 02/20/24 at 0515, Do not administer for more than 5 days. Start: 02-11-2024 End: 02-11-2024 30 mg, IntraMUSCular, ONCE, 1 dose, On Sat02/11/24 at 0400, Do not administer for more than 5 days. Start: 02-06-2024 End: 02-06-2024 30 mg, IntraMUSCular, ONCE, 1 dose, On Alicia 02/06/24 at 0300, Do not administer for more than 5 days. Start: 01-21-2024 End: 01-21-2024 15 mg, IntraMUSCular, ONCE, 1 dose, On 01/21/24 at 1815, Do not administer for more than 5 days. Start: 01-18-2024 End: 01-18-2024 30 mg, IntraMUSCular, ONCE, 1 dose, On 01/18/24 at 0815, Do not administer for more than 5 days. Start: 01-13-2024 End: 01-13-2024 30 mg, IntraMUSCular, ONCE, 1 dose, On 01/13/24 at 0845, Do not administer for more than 5 days. Start: 01-09-2024 End: 01-09-2024 15 mg, IntraMUSCular, ONCE, 1 dose, On Alicia 01/09/24 at 0500, Do not administer for more than 5 days. Start: 12-29-2023 End: 12-29-2023 30 mg, IntraVENous, ONCE, 1 dose, On 12/29/23 at 0800, Do not administer for more than 5 days. Start: 12-03-2023 End: 12-03-2023 30 mg, IntraMUSCular, ONCE, 1 dose, On 12/03/23 at 0430, Do not administer for more than 5 days. Start: 10-18-2023 End: 10-18-2023 30 mg, IntraVENous, ONCE, 1 dose, On Sat10/18/23 at 0945, Do not administer for more than 5 days. Start: 09-06-2023 End: 09-06-2023 inject 1 dose by intramuscular injection once 30 mg, Intramuscular, ONCE, 1 dose, On Sat09/06/23 at 0617 Start: 08-06-2023 take 1 tablet by vivi th every six hours as needed for pain ketorolac (TORADOL) 10 MG tablet Take 1 Tablet by mouth every 6 hours as needed for Pain. 20 Tablet 08/06/2023 Active Start: 08-06-2023 End: 08-06-2023 inject 1 dose by intramuscular injection once 15 mg, Intramuscular, ONCE, 1 dose, On 08/06/23 at 0659 Start: 07-09-2023 End: 07-09-2023 ketorolac (TORADOL) injectio n 30 mg Start: 05-31-2023 End: 05-31-2023 ketorolac (TORADOL) injectio n 30 mg Start: 05-06-2023 End: 05-06-2023 ketorolac (TORADOL) injectio n 30 mg Start: 04-25-2023 End: 04-25-2023 ketorolac (TORADOL) injectio n 30 mg Start: 03-10-2023 End: 03-10-2023 ketorolac (Toradol) injectio n 30 mg Start: 10-31-2022 End: 10-31-2022 ketorolac (TORADOL) 30 MG/ML injection Start: 08-17-2022 End: 08-17-2022 ketorolac (TORADOL) injectio n 30 mg Start: 06-23-2022 End: 06-23-2022 ketorolac (TORADOL) injectio n 30 mg lamoTRIgine 150 mg oral tablet (20 sources) Mood Stabilizer, Anti-epileptic Agent Start: 03-08-2024 take 150 mg by mouth once daily 150 mg, Oral, DAILY, First dose (after last reorder) on 03/08/24 at 1015, Until Discontinued Start: 09-25-2022 take 150 mg by mouth once vicente y Lamotrigine Active 150 MG PO DAILY September 25, 2022 12:00am Start: 07-31-2022 End: 05-20-2024 lamoTRIgine (LAMICTAL) 150 m g tablet 150 mg. 05/15/2023 Active Start: 03-07-2022 End: 03-09-2024 take 1 tablet by mouth twice daily lamoTRIgine (LAMICTAL) 150 MG tablet Indications: PTSD (post-traumatic stress disorder) , Sacroiliitis (HCC) Take 1 tablet by mouth 2 times daily 180 tablet 1 03/07/2022 03/09/2024 Discontinued (Stop Taking at Discharge) Start: 01-30-2021 take 1 tablet by vivi th twice daily lamoTRIgine (LAMICTAL) 150 MG tablet Indications: PTSD (post-traumatic stress disorder) , Sacroiliitis (HCC) Take 1 tablet by mouth 2 times daily 180 tablet 1 01/30/2021 Active Start: 06-30-2020 lamoTRIgine (L AMICTAL) tablet 150 mg Start: 05-20-2020 take 1 tablet by vivi th twice daily lamoTRIgine (LAMICTAL) 150 MG tablet Indications: Sacroiliitis (HCC) , PTSD (post-traumatic stress disorder) Take 1 tablet by mouth 2 times daily 180 tablet 1 05/20/2020 Active Start: 05-11-2019 take 150 mg by mouth once vicente y Lamotrigine Active 150 MG PO Daily August 08, 2022 12:00am Start: 11-02-2018 take 1 tablet by vivi th twice daily lamoTRIgine (LAMICTAL) 150 MG tablet Take 1 tablet by mouth 2 times daily 0 11/02/2018 Active Start: 11-19-2014 take 1 tablet by vivi th twice daily lamoTRIgine (LAMICTAL) 100 mg tablet Take 1 tablet by mouth twice daily. 60 tablet 6 11/19/2014 Active Start: 11-19-2014 End: 10-24-2022 lamoTRIgine (LAMICTAL) 25 mg tablet to be increased to 3 tabs bid 100 tablet 0 11/19/2014 10/24/2022 Discontinued (Dosage adjustment) Comment on above: to be increased to 3 tabs bid Take 1 tablet by vivi th twice daily. lidocaine 0.05 mg/mg medicated patch (20 sources) Antiarrhythmic, Amide Local Anesthetic Start: apply 1 dose transdermal route every twelve hours, then apply 1 dose transdermal route every twelve hours lidocaine (Lidoderm) 5 % patch Indications: Acute on chronic back pain Place 1 patch over 12 hours on the skin once daily. Remove & discard patch within 12 hours or as directed by . 5 patch 08/20/2024 Active Start: 08-20-2024 1 patch, trans dermal, Administer over 12 Hours, Once, On Alicia 08/20/24 at 1055, For 1 dose, Apply to point of maximum pain. Patch will remain on for 12 hours, then removed for [address] patch directly over any surgical incisions or wounds. Start: 08-08-2024 1 patch, Trans DERmal, Administer over 12 Hours, Once, On 08/08/24 at 2030, For 1 dose, Apply patch to right hip. The product development consultant's recommendations for the number of patches that can be applied within a 24-hour period varies from 1 to 4 times daily and the duration of application varies from 8 to 24 hours; refer to the product development consultant's labeling for product-specific recommendations. Start: 07-01-2024 End: 07-31-2024 apply 1 dose transdermal route once daily lidocaine 4 % external patch Place 1 patch onto the skin daily 30 patch 07/01/2024 07/31/2024 Active Start: 07-01-2024 1 patch, Trans DERmal, Administer over 12 Hours, ONCE, On 07/01/24 at 0830, For 1 dose, Apply patch to low back. The product development consultant's recommendations for the number of patches that can be applied within a 24-hour period varies from 1 to 4 times daily and the duration of application varies from 8 to 24 hours; refer to the product development consultant's labeling for product-specific recommendations. Start: 04-20-2024 1 patch, Trans DERmal, Administer over 12 Hours, ONCE, On Sat04/20/24 at 1545, For 1 dose, Apply patch to shoulder l The product development consultant's recommendations for the number of patches that can be applied within a 24-hour period varies from 1 to 4 times daily and the duration of application varies from 8 to 24 hours; refer to the product development consultant's labeling for product-specific recommendations. Start: 04-20-2024 End: 04-30-2024 lidocaine (LIDODERM) 5 % Jerod ce 2 patches onto the skin daily for 10 days 12 hours on, 12 hours off. 30 patch 1 04/20/2024 04/30/2024 Active Start: 03-18-2024 End: 04-17-2024 apply 1 dose transdermal route once daily lidocaine 4 % external patch Place 1 patch onto the skin daily 30 patch 03/18/2024 04/17/2024 Active Start: 03-13-2024 End: 05-20-2024 apply 1 dose transdermal route once daily Lidocaine 5 % adhesive patch,medicated Active 0 .ROUTE .COMPLEX May 20, 2024 12:09pm APPLY 1 PATCH TOPICALLY TO THE SKIN DAILY. MAY WEAR UP TO 12 HOURS; Start: 11-20-2023 End: 12-21-2023 Lidocaine (LIDODERM PATCH1 E ACH) 1 EACH PATCH Discontinued 1 SURINDER TOP DAILY November 20, 2023 9:03am December 21, 2023 12:07am Start: 10-08-2023 End: 10-08-2023 lidocaine (PF) 10 mg/mL (1 % ) 100 mg injection (XYLOCAINE) Start: 09-30-2023 Lidocaine (Lid ocaine Patch 5%) 5 % Pad Active 5 % EX EVERY 12 HOURS September 30, 2023 12:00am Start: 09-06-2023 apply 1 dose transde rmal route every twenty-four hours lidocaine (Lidoderm) 5 % patch Place 1 Patch on the skin every 24 hours. 10 Patch 3 09/06/2023 Active Start: 09-06-2023 apply 1 dose transde rmal route every twelve hours, then apply 1 dose transdermal route once 1 patch, transdermal, Administer over 12 Hours, Once, On Sat09/06/23 at 0725, For 1 dose, Apply to affected area Start: 11-19-2022 End: 09-05-2023 apply 5 doses topically once daily Lidocaine (LIDOCAINE PATCH 55 %) 5 % Patch Discontinued 5 % TOP DAILY April 04, 2023 8:33am September 05, 2023 5:44am Start: 11-19-2022 End: 08-13-2023 lidocaine (LIDODERM) 5 % Start: 10-31-2022 apply 1 dose transde rmal route every twenty-four hours lidocaine (Lidoderm) 5 % patch Place 1 Patch on the skin every 24 hours. (12 hours on, 12 hours off) 10 Patch 0 10/31/2022 Active Start: 09-05-2022 End: 10-02-2023 LIDOCAINE PAIN RELIEF 4 % pa tch Start: 09-05-2022 End: 08-08-2023 apply 1 dose transdermal route once daily lidocaine 4 % external patch Place 1 patch onto the skin daily 30 patch 0 07/09/2023 08/08/2023 Active Start: 07-31-2022 End: 03-18-2024 apply 1 dose transdermal route once daily lidocaine (LIDODERM) 5 % Place 1 patch onto the skin daily 12 hours on, 12 hours off. 30 patch 03/17/2024 03/18/2024 Discontinued (LIST CLEANUP) Start: 06-25-2022 End: 07-24-2022 Lidoderm 5% topical film ; A pply topically to affected area once a day Quantity: 1 Refills: 0 Ordered: 25-Jun-2022 Amandeep Marcial Start: 25-Jun-2022 End: 24-Jul-2022 Generic Substitution Allowed Comments: For external use only.Remove old patch prior to applying a new patch. Start: 06-23-2022 End: 07-08-2022 apply 1 dose transdermal route once daily lidocaine 4 % external patch Place 1 patch onto the skin daily for 15 days 15 each 0 06/23/2022 07/08/2022 Active Comment on above: For external use onl y.Remove old patch prior to applying a new patch. 50 ml magnesium sulfate 40 mg/ml injection (1 source) Start: 5 meloxicam 7.5 mg oral tablet (13 sources) Nonsteroidal Anti-inflammatory Drug Start: 3 End: 4 take 1 tablet by mouth once meloxicam (MOBIC) 7.5 mg tablet Take 1 tablet by mouth every afternoon. 0 09/13/2022 08/20/2023 Discontinued Start: 05-11-2019 End: 11-07-2019 take 1 tablet by mouth once daily meloxicam (MOBIC) 15 MG tablet Indications: DDD (degenerative disc disease), lumbar , Sacroiliitis (HCC) Take 1 tablet by mouth daily 90 tablet 1 05/11/2019 11/07/2019 Active Start: 02-11-2019 take 1 tablet by vivi th once daily meloxicam (MOBIC) 15 MG tablet Take 1 tablet by mouth daily 30 tablet 0 02/11/2019 Active Start: 01-08-2019 End: 02-02-2019 take 1 tablet by mouth once daily meloxicam (MOBIC) 7.5 MG tablet Take 1 tablet by mouth daily 30 tablet 0 01/08/2019 02/02/2019 Discontinued (LIST CLEANUP) Meloxicam 10 MG CAPS Take by mouth Unsure of dose Active MELOXICAM PO Kevin e by mouth 0 Active metaxalone 800 mg oral tablet (1 source) Start: 05-16-2023 End: 05-21-2023 Skelaxin 800 mg oral tablet Dose : 800 mg = 1 tab(s), Oral, TID, X 5 day(s), # 15 tab(s), 0 Refill(s), 05/21/23 5:55:00 AM EDT Start Date: 05/16/23 Stop Date: 05/21/23 Status: Ordered methocarbamol 500 mg oral tablet (20 sources) Muscle Relaxant Start: 08-01-2024 End: 08-11-2024 take 1 tablet by mouth four times daily methocarbamol (ROBAXIN) 500 MG tablet Take 1 tablet by mouth 4 times daily for 10 days 40 tablet 08/01/2024 08/11/2024 Active Start: 07-01-2024 End: 07-04-2024 take 1 tablet by mouth three times daily methocarbamol (ROBAXIN-750) 750 MG tablet Take 1 tablet by mouth 3 times daily for 3 days 9 tablet 07/01/2024 07/04/2024 Active Start: 05-20-2024 End: 06-01-2024 take 1 tablet by mouth four times daily methocarbamol (ROBAXIN) 750 mg tablet Take 750 mg by mouth four times daily. 05/22/2024 Active Start: 12-06-2022 End: 07-22-2023 take 1 tablet by mouth four times daily methocarbamol (ROBAXIN-750) 750 MG tablet Take 1 tablet by mouth 4 times daily for 10 days 40 tablet 0 07/09/2023 07/19/2023 Active Start: 11-19-2022 take 1000 mg by mout h four times daily Methocarbamol [Robaxin] 1000 MG PO FOUR TIMES A DAY November 19, 2022 Active Start: 11-19-2022 take 1000 mg by mout h four times daily Methocarbamol 1000 MG PO FOUR TIMES A DAY November 19, 2022 Active Start: 11-19-2022 take 2 tablets by mo uth four times daily Methocarbamol (Robaxin) 500 MG Tab Active 1000 MG PO FOUR TIMES A DAY November 19, 2022 12:00am Start: 09-25-2022 Methocarbamol MG PO NEEDED PRN September 25, 2022 Active Start: 09-25-2022 Methocarbamol Active MG PO NEEDED September 25, 2022 12:00am Start: 08-04-2022 End: 11-25-2022 Methocarbamol Discontinued 5 00 MG PO As Needed August 08, 2022 12:00am November 25, 2022 10:55am Comment on above: May cause drowsiness . Alcohol may intensify this effect. Use care when operating dangerous machinery. methylPREDNISolone 4 mg oral tablet (20 sources) Corticosteroid Start: 04-11-2024 End: 04-17-2024 Medrol Dosepak 4 mg oral tablet 1 packet(s), Oral, qDay, as directed on package labeling, X 6 day(s), # 21 tab(s), 0 Refill(s), 04/17/24 10:49:00 AM EST Start Date: 04/11/24 Stop Date: 04/17/24 Status: Ordered Quantity: 21.0 Unit: tab(s) Repeat number: 1 Start: 03-18-2024 End: 03-24-2024 methylPREDNISolone (MEDROL, BEE,) 4 MG tablet Take by mouth. 1 kit 03/18/2024 03/24/2024 Active Start: 01-21-2024 End: 01-27-2024 methylPREDNISolone (MEDROL, BEE,) 4 MG tablet Take by mouth. 1 kit 01/21/2024 01/27/2024 Active Start: 10-08-2023 End: 10-08-2023 methylPREDNISolone acetate 4 0 mg injection (DEPO-Medrol) Start: 09-30-2023 Methylpredniso lone (Medrol Dosepak) 4 MG Bee Active 4 MG PO DIRECTED September 30, 2023 12:00am Start: 10-22-2022 End: 10-22-2022 methylPREDNISolone acetate 4 0 mg injection (DEPO-Medrol) Start: 08-09-2022 End: 09-25-2022 take 1 tablet by mouth once daily Methylprednisolone (Medrol Dosepak) 4 MG Tab Discontinued 4 MG PO DAILY August 18, 2022 12:00am September 25, 2022 11:52am End: 09-02-2023 take 0.5 tablet by mouth once daily methylPREDNISolone (MEDROL) 4 MG tablet Take 0.5 tablets by mouth daily 0 09/02/2023 Discontinued (LIST CLEANUP) metoclopramide 10 mg oral tablet (4 sources) Dopamine-2 Receptor Antagonist Start: 08-06-2024 take 1 tablet by mouth three times daily as needed for nausea metoclopramide (REGLAN) 10 MG tablet Take 1 tablet by mouth 3 times daily as needed (nausea) 15 tablet 08/06/2024 Active Start: 10-18-2023 End: 10-18-2023 10 mg, IntraVENous, ONCE, 1 dose, On Sat10/18/23 at 0945, IV Push: Max 10 mg over 1-2 minutes. Start: 09-29-2023 End: 09-29-2023 metoclopramide (REGLAN) inje ction 10 mg naproxen 500 mg oral tablet (20 sources) Nonsteroidal Anti-inflammatory Drug Start: 05-22-2024 End: 08-01-2024 take 1 tablet by mouth twice daily as needed for pain naproxen (NAPROSYN) 500 MG tablet Take 1 tablet by mouth 2 times daily as needed for Pain 60 tablet 05/22/2024 08/01/2024 Discontinued (LIST CLEANUP) Start: 09-02-2023 End: 05-17-2024 take 1 tablet by mouth twice daily as needed for pain naproxen (NAPROSYN) 500 MG tablet Take 1 tablet by mouth 2 times daily as needed for Pain 60 tablet 05/22/2024 Active Start: 06-15-2023 take 500 mg by mouth twice daily as needed for pain Naproxen [Naprosyn] 500 MG PO TWICE A DAY PRN For Pain June 15, 2023 Active Start: 06-15-2023 take 500 mg by mouth twice daily as needed for pain Naproxen 500 MG PO TWICE A DAY PRN For Pain June 15, 2023 Active Start: 06-02-2023 take 1000 mg by mouth once tamiko ly Naproxen Active 1000 MG PO Daily June 02, 2023 12:00am Start: 04-14-2023 End: 05-20-2024 take 1 tablet by mouth every twelve hours in the morning naproxen (Naprosyn) 500 mg tablet Indications: pain Take 1 tablet (500 mg) by mouth every 12 hours. 20 tablet 05/17/2024 8:26 AM EDT 05/17/2024 Active Start: 12-06-2022 End: 09-02-2023 take 1 tablet by mouth twice daily at mealtime as needed for pain naproxen (EC NAPROSYN) 500 MG EC tablet Take 1 tablet by mouth 2 times daily (with meals) For pain relief as needed 20 tablet 0 05/06/2023 09/02/2023 Discontinued (LIST CLEANUP) Start: 09-25-2022 Naproxen MG PO NEEDED PRN September 25, 2022 Active Start: 09-25-2022 Naproxen Activ e MG PO NEEDED September 25, 2022 12:00am Start: 08-04-2022 take 1 tablet by vivi th every twelve hours naproxen 500 mg oral tablet ; 1 tab(s) orally every 12 hours as needed for pain or swelling. Quantity: 20 Refills: 0 Ordered: 04-Aug-2022 Driss Thomasn Aylin Start: 04-Aug-2022 Generic Substitution Allowed Comments: Check with your doctor before becoming .May cause drowsiness or dizziness.Obtain medical advice before taking any non-prescription drugs as some may affect the action of this medication.Take with food or milk. Start: 06-25-2022 End: 05-22-2024 take 1 tablet by mouth twice daily Naproxen (Naprosyn) 500 MG Tab Active 500 MG PO TWICE A DAY June 15, 2023 12:00am End: 08-01-2023 take 1 tablet by mouth every twelve hours Naproxen Sodium (Vsuie611 MG) 220 MG TAB Discontinued 220 MG PO EVERY 12 HOURS August 01, 2023 6:44am Comment on above: Check with your doct or before becoming .May cause drowsiness or dizziness.Obtain medical advice before taking any non-prescription drugs as some may affect the action of this medication.Take with food or milk. omeprazole 40 mg delayed release oral capsule (6 sources) Proton Pump Inhibitor Start: 04-27-19 take 1 capsule by mouth once daily omeprazole (PRILOSEC) 40 mg capsule Take 1 capsule by mouth once daily. 04/27/2024 Active End: 10-24-2022 take 1 capsule by mouth once daily omeprazole (PRILOSEC) 20 mg capsule Take 20 mg by mouth once daily. 0 10/24/2022 Discontinued (Discontinued by another Health Care Provider) Comment on above: Take 20 mg by mouth once daily. ondansetron 4 mg disintegrating oral tablet (16 sources) Serotonin-3 Receptor Antagonist Start: 08-07-19 take 1 tablet by mouth three times daily as needed for nausea ondansetron (ZOFRAN-ODT) 4 MG disintegrating tablet Take 1 tablet by mouth 3 times daily as needed for Nausea or Vomiting 21 tablet 08/06/2024 Active Start: 07-01-2024 take 1 tablet by vivi th three times daily as needed for nausea ondansetron (ZOFRAN-ODT) 4 MG disintegrating tablet Take 1 tablet by mouth 3 times daily as needed for Nausea or Vomiting 21 tablet 07/01/2024 Active Start: 05-02-2024 End: 05-02-2024 4 mg, IntraVENous, ONCE, 1 d ose, On 05/02/24 at 0530 Start: 04-20-2024 End: 04-20-2024 take 1 dose by mouth once 4 mg, Oral, ONCE, 1 dose, On 04/20/24 at 1545 Start: 04-20-2024 End: 04-25-2024 take 1 tablet by mouth every eight hours as needed ondansetron (ZOFRAN) 4 mg tablet Take 4 mg by mouth every 8 hours as needed for nausea/vomiting. 04/20/2024 Active Start: 03-08-2024 4 mg, IntraVEN ous, EVERY 6 HOURS PRN, Starting on 03/08/24 at 0058, Until Discontinued, Nausea, Vomiting Start: 12-29-2023 End: 12-29-2023 4 mg, IntraVENous, ONCE, 1 d ose, On 12/29/23 at 0800 Start: 06-23-2022 End: 06-23-2022 ondansetron (ZOFRAN-ODT) disintegrating tablet 4 mg polyethylene glycol 3350 170 00 mg powder for oral solution (2 sources) Osmotic Laxative Start: 03-08-2024 Start: 06-30-2020 polyethylene g lycol (GLYCOLAX) packet 17 g Potassium Chloride (1 source) Start: 03-08-2024 potassium chlo ride (KLOR-CON M) extended release tablet 40 mEq predniSONE 50 mg oral tablet (20 sources) Start: 08-01-2024 End: 08-06-2024 take 1 tablet by mouth once daily predniSONE (DELTASONE) 50 MG tablet Take 1 tablet by mouth daily for 5 days 5 tablet 08/01/2024 08/06/2024 Active Start: 07-01-2024 End: 07-06-2024 take 1 tablet by mouth once daily predniSONE (DELTASONE) 50 MG tablet Take 1 tablet by mouth daily for 5 days 5 tablet 07/01/2024 07/06/2024 Active Start: 07-01-2024 End: 07-01-2024 take 1 dose by mouth once 60 mg, Oral, ONCE, 1 dose, O n 07/01/24 at 0830 Start: 06-03-2024 End: 06-08-2024 take 2 tablets by mouth once daily predniSONE (DELTASONE) 20 MG tablet Take 2 tablets by mouth daily for 5 days 10 tablet 06/03/2024 06/08/2024 Active Start: 09-02-2023 End: 09-14-2023 predniSONE (DELTASONE) 10 MG tablet Take 4 tablets by mouth daily for 3 days, THEN 3 tablets daily for 3 days, THEN 2 tablets daily for 3 days, THEN 1 tablet daily for 3 days. Take by oral route 4 tabs x 3 days, then 3 tabs x 3 days, then 2 tabs x 3 days, then 1 tab x 3 days, then discontinue. Take with food.. 30 tablet 0 09/02/2023 09/14/2023 Active Start: 06-02-2023 take 20 mg by mouth once daily Prednisone Active 20 MG PO Daily June 02, 2023 12:00am Start: 04-14-2023 predniSONE (De ltasone) 10 mg tablet Indications: Contusion of sacrum, initial encounter , Sprain of left shoulder, unspecified shoulder sprain type, initial encounter Take three tablets orally day 1-3, two tablets day 4-6, and one tablet day 7-9 18 tablet 04/14/2023 Active Start: 12-04-2022 End: 12-09-2022 take 1 tablet by mouth once daily predniSONE (Deltasone) 50 mg tablet Indications: Acute exacerbation of chronic low back pain Take 1 tablet (50 mg) by mouth once daily for 5 days. 5 tablet 0 12/04/2022 12/09/2022 Start: 07-31-2022 End: 05-20-2024 Prednisone 10 mg tablet Discontinued 10 MG PO July 31, 2022 12:00am May 20, 2024 12:11pm Start: 06-25-2022 End: 06-29-2022 take 1 tablet by mouth once daily at mealtime predniSONE 20 mg oral tablet ; 2 tab(s) orally once a day- starting on 06/26/22 Quantity: 10 Refills: 0 Ordered: 25-Jun-2022 Amandeep Marcial Start: 25-Jun-2022 End: 29-Jun-2022 Generic Substitution Allowed Comments: It is very important that you take or use this exactly as directed. Do not skip doses or discontinue unless directed by your doctor.Obtain medical advice before taking any non-prescription drugs as some may affect the action of this medication.Take with food or milk. Start: 06-23-2022 End: 06-28-2022 take 2 tablets by mouth once daily predniSONE (DELTASONE) 20 MG tablet Take 2 tablets by mouth daily for 5 days 10 tablet 0 06/23/2022 06/28/2022 Active Start: 06-02-2022 End: 06-06-2022 take 1 tablet by mouth once daily at mealtime predniSONE 50 mg oral tablet ; 1 tab(s) orally once a day Quantity: 5 Refills: 0 Ordered: 02-Jun-2022 Lisa Roque Start: 02-Jun-2022 End: 06-Jun-2022 Generic Substitution Allowed Comments: It is very important that you take or use this exactly as directed. Do not skip doses or discontinue unless directed by your doctor.Obtain medical advice before taking any non-prescription drugs as some may affect the action of this medication.Take with food or milk. Comment on above: It is very important that you take or use this exactly as directed. Do not skip doses or discontinue unless directed by your doctor.Obtain medical advice before taking any non-prescription drugs as some may affect the action of this medication.Take with food or milk. Promethazine (1 source) Phenothiazine Start: 06-30-2020 promethazine (PHENERGAN) tablet 12.5 mg rizatriptan 10 mg oral tablet (5 sources) Serotonin-1b and Serotonin-1d Receptor Agonist Start: 06-15-2023 Rizatriptan Benzoate [Maxalt] 10 MG PO DAILY PRN June 15, 2023 Active Take 110 mg tablet at time of onset of headache. May repeat once in a 24-hour period. Start: 06-15-2023 Rizatriptan Be nzoate 10 MG PO DAILY PRN June 15, 2023 Active Take 110 mg tablet at time of onset of headache. May repeat once in a 24-hour period. Start: 06-15-2023 Rizatriptan Be nzoate (Maxalt) 10 MG Tab Active 10 MG PO DAILY June 15, 2023 12:00am Take 110 mg tablet at time of onset of headache. May repeat once in a 24-hour period. sulfamethoxazole 800 mg / trimethoprim 160 mg oral tablet (2 sources) Dihydrofolate Reductase Inhibitor Antibacterial, Sulfonamide Antimicrobial Start: 10-27-2023 End: 11-03-2023 take 1 tablet by mouth twice daily sulfamethoxazole-trimethoprim 800-160 MG (Bactrim DS) 800-160 MG per tablet Take 1 Tablet by mouth 2 times daily for 7 days. 14 Tablet 10/27/2023 11/03/2023 Active Start: 10-27-2023 End: 10-27-2023 1 Tablet, Oral, ONCE, 1 dose , On 10/27/23 at 0239 tiZANidine 4 mg oral tablet (11 sources) Central alpha-2 Adrenergic Agonist Start: 09-30-2023 take 1 tablet by mouth three times daily as needed Tizanidine Hcl (Zanaflex) 4 MG Tab Active 4 MG PO THREE TIMES A DAY NEEDED September 30, 2023 12:00am Start: 09-15-2023 End: 09-15-2023 take 4 mg by mouth once 4 mg, oral, Once, On Sun 09/01 06/25 at 0950, For 1 dose Start: 06-25-2022 End: 07-24-2022 take 2 tablets by mouth every eight hours Zanaflex 4 mg oral tablet ; 2 tab(s) orally every 8 hours Quantity: 24 Refills: 0 Ordered: 25-Jun-2022 Amandeep Marcial Start: 25-Jun-2022 End: 24-Jul-2022 Generic Substitution Allowed Comments: It is very important that you take or use this exactly as directed. Do not skip doses or discontinue unless directed by your doctor.May cause drowsiness. Alcohol may intensify this effect. Use care when operating dangerous machinery.This drug may impair the ability to drive or operate machinery. Use care until you become familiar with its effects. Start: 04-22-2019 take 1 tablet by vivi twice daily as needed for muscle spasms tiZANidine (ZANAFLEX) 2 MG tablet Take 1 tablet by mouth 2 times daily as needed (muscle spasms) 60 tablet 0 04/22/2019 Active Start: 02-11-2019 End: 03-13-2019 take 1 tablet by mouth once daily as needed for muscle spasms tiZANidine (ZANAFLEX) 2 MG tablet Take 1 tablet by mouth daily as needed (muscle spasms) 30 tablet 0 02/11/2019 03/13/2019 Comment on above: It is very important that you take or use this exactly as directed. Do not skip doses or discontinue unless directed by your doctor.May cause drowsiness. Alcohol may intensify this effect. Use care when operating dangerous machinery.This drug may impair the ability to drive or operate machinery. Use care until you become familiar with its effects. TRELEGY ELLIPTA 200-62.5-25 mcg inhalation powder (19 sources) Start: 10-16-19 take 1 puff(s) by inhalation once daily TRELEGY ELLIPTA 200-62.5-25 mcg inhalation powder inhale 1 puff once daily 10/15/2022 Active Start: 10-15-2022 take 1 puff(s) by in halation once daily TRELEGY ELLIPTA 200-62.5-25 mcg inhalation powder inhale 1 puff once daily 0 10/15/2022 Active Audsurur-Sjzb-Oxrkv-Oreg-Cap ry 100 mg-150 mg- 50 mg-150 mg capsule (2 sources) Start: 09-20-2022 Ephdeeft-Fmla-Lbfck-Oreg-Cap ry 100 mg-150 mg- 50 mg-150 mg capsule Active CAP PO September 20, 2022 12:00am Start: 09-20-2022 Turmeric-Ging- Vjqvh-Klzr-Fjtqe 100 mg-150 mg- 50 mg-150 mg capsule Active CAP PO September 19, 2022 11:00pm varenicline 1 mg oral tablet (6 sources) Partial Cholinergic Nicotinic Agonist Start: 07-01-2024 varenicline (CHANTIX CONTINUING MONTH BEE) 1 MG tablet Take 0.5 mg once daily for 3 days, 0.5 mg twice daily for 3 days. Take 2 tablets (1mg) twice daily following. 20 tablet 07/01/2024 Active Varenicline Tart rate (CHANTIX) BEE Active 0.5 MG PO Zinc (1 source) Start: 08-04-2021 take 2 capsules by m outh once daily zinc 50 MG CAPS Indications: COVID Take 100 mg by mouth daily 30 capsule 3 08/04/2021 Active Completed/Discontinued Medications Medication Drug Class(es) Dates Sig (Normalized) Sig (Original) (A MED REC NEEDS DONE) (7 sources) End: 07-07-2024 (A MED REC NEEDS DONE) Discontinued July 07, 2024 4:27am (A MED REC NEEDS DONE) Active 0.9% NaCl 10 mL flush (2 sources) Start: 10-08-2023 End: 10-08-2023 0.9% NaCl 10 mL flush acetaminophen 325 mg / oxyCODONE hydrochloride 5 mg oral tablet (20 sources) Opioid Agonist Start: 08-01-2024 End: 08-01-2024 take 1 tablet by mouth every twenty-four hours 1 tablet, Oral, ONCE, 1 dose, On 08/01/24 at 0515, Maximum dose of acetaminophen is 4000 mg from all sources in 24 hours. Start: 07-08-2024 End: 07-08-2024 take 1 tablet by mouth every twenty-four hours 1 tablet, Oral, ONCE, 1 dose, On Sat07/08/24 at 2100, Maximum dose of acetaminophen is 4000 mg from all sources in 24 hours. Start: 05-02-2024 End: 05-02-2024 take 1 tablet by mouth every twenty-four hours 1 tablet, Oral, Once, 1 dose, On 05/02/24 at 0530, Maximum dose of acetaminophen is 4000 mg from all sources in 24 hours. Start: 04-13-2024 take 1 tablet by vivi th every six hours as needed oxyCODONE-acetaminophen (PERCOCET) 5-325 mg tablet Take 1 tablet by mouth every 6 hours as needed. 04/13/2024 Active Start: 03-29-2024 End: 03-29-2024 take 1 tablet by mouth every twenty-four hours 1 tablet, Oral, ONCE, 1 dose, On 03/29/24 at 0830, Maximum dose of acetaminophen is 4000 mg from all sources in 24 hours. Start: 03-18-2024 End: 03-18-2024 take 1 tablet by mouth every twenty-four hours 2 tablet, Oral, ONCE, 1 dose, On 03/18/24 at 0515, Maximum dose of acetaminophen is 4000 mg from all sources in 24 hours. Start: 03-13-2024 End: 03-13-2024 take 1 tablet by mouth every twenty-four hours 1 tablet, Oral, ONCE, 1 dose, On Sat03/13/24 at 1645, Maximum dose of acetaminophen is 4000 mg from all sources in 24 hours. Start: 03-12-2024 End: 03-12-2024 take 1 tablet by mouth every twenty-four hours 1 tablet, Oral, ONCE, 1 dose, On Alicia 03/12/24 at 1915, Maximum dose of acetaminophen is 4000 mg from all sources in 24 hours. Start: 03-12-2024 End: 03-17-2024 oxyCODONE-acetaminophen (PER COCET) 5-325 MG per tablet Indications: Contusion of thigh, unspecified laterality, initial encounter , Facial contusion, initial encounter , Cervical sprain, initial encounter , Back contusion, left, initial encounter Take 1 tablet by mouth every 8 hours as needed for Pain for up to 4 days. Intended supply: 3 days. Take lowest dose possible to manage pain Max Daily Amount: 3 tablets 4 tablet 03/13/2024 03/17/2024 Active Start: 03-08-2024 oxyCODONE-acet aminophen (PERCOCET) 5-325 MG per tablet 1 tablet Start: 03-08-2024 End: 03-08-2024 take 1 tablet by mouth every twenty-four hours 1 tablet, Oral, ONCE, 1 dose, On Verner 03/08/24 at 0100, Maximum dose of acetaminophen is 4000 mg from all sources in 24 hours. Start: 12-29-2023 End: 01-01-2024 oxyCODONE-acetaminophen (PER COCET) 5-325 MG per tablet Indications: Chronic pain syndrome Take 1 tablet by mouth every 6 hours as needed for Pain for up to 3 days. Max Daily Amount: 4 tablets 12 tablet 12/29/2023 01/01/2024 Active Start: 11-10-2023 End: 11-20-2023 Oxycodone W/ Acetaminophen (PERCOCET1 TA1) 1 TAB TAB Discontinued 1 TABLET PO EVERY 8 HOURS NEEDED as needed for PAIN 7-10 2 1 November 10, 2023 4:30pm November 20, 2023 7:03am Start: 10-11-2023 End: 11-20-2023 Oxycodone W/ Acetaminophen (PERCOCET1 TA1) 1 TAB TAB Discontinued 1 TABLET PO EVERY 4 HOURS NEEDED as needed for pain 6 3 October 11, 2023 11:13am November 20, 2023 7:03am Start: 09-06-2023 End: 09-08-2023 take 1 tablet by mouth every eight hours for pain oxyCODONE-acetaminophen (Percocet) 5-325 mg tablet Indications: Ankylosing spondylitis, unspecified site of spine (Multi) , Chronic midline back pain, unspecified back location Take 1 tablet by mouth every 8 hours if needed for severe pain (7 - 10) for up to 2 days. 5 tablet 09/06/2023 09/08/2023 Active Start: 09-06-2023 End: 09-06-2023 take 1 tablet by mouth once as needed for pain 1 tablet, oral, Once, On Sat09/06/23 at 0725, For 1 dose, If ordered PRN for pain, nurse is permitted to administer this medication for higher pain scores based on patient preference? Yes Start: 09-02-2023 End: 09-02-2023 oxyCODONE-acetaminophen (PER COCET) 5-325 MG per tablet 2 tablet Start: 08-15-2023 End: 08-18-2023 take 1 tablet by mouth every six hours as needed for pain Percocet 5 mg-325 mg oral tablet Dose = 1 tab(s), Oral, q6h, PRN Pain, X 3 day(s), # 12 tab(s), 0 Refill(s), Back pain, 62.8 Start Date: 08/15/23 Stop Date: 08/18/23 Status: Ordered Start: 07-12-2023 take 1 tablet by vivi th every six hours Oxycodone-Acetaminophen (Percocet) 5-325 mg tablet Active 1 TABLET PO EVERY 6 HOURS 21 07July 12, 2023 Start: 05-06-2023 End: 05-06-2023 oxyCODONE-acetaminophen (PER COCET) 5-325 MG per tablet 1 tablet Start: 12-04-2022 End: 12-04-2022 oxyCODONE-acetaminophen (Per cocet) 5-325 mg per tablet 1 tablet Start: 08-17-2022 End: 08-17-2022 oxyCODONE-acetaminophen (PER COCET) 5-325 MG per tablet 1 tablet Start: 08-04-2022 End: 08-06-2022 take 1 tablet by mouth every six hours oxycodone-acetaminophen 5 mg-325 mg oral tablet ; 1 tab(s) orally every 6 hours x 3 days Quantity: 12 Refills: 0 Ordered: 04-Aug-2022 Driss Thomasn Aylin Start: 04-Aug-2022 End: 06-Aug-2022 Generic Substitution Allowed Comments: Caution federal law prohibits the transfer of this drug to any person other than the person for whom it was prescribed.May cause drowsiness. Alcohol may intensify this effect. Use care when operating dangerous machinery.This prescription cannot be refilled.This product contains acetaminophen. Do not use with any other product containing acetaminophen to prevent possible liver damage.Using more of this medication than prescribed may cause serious breathing problems. Start: 07-31-2022 End: 07-31-2022 oxyCODONE-acetaminophen (PER COCET) 5-325 MG per tablet 1 tablet Start: 06-23-2022 End: 06-23-2022 oxyCODONE-acetaminophen (PER COCET) 5-325 MG per tablet 1 tablet Comment on above: Caution federal law prohibits the transfer of this drug to any person other than the person for whom it was prescribed.May cause drowsiness. Alcohol may intensify this effect. Use care when operating dangerous machinery.This prescription cannot be refilled.This product contains acetaminophen. Do not use with any other product containing acetaminophen to prevent possible liver damage.Using more of this medication than prescribed may cause serious breathing problems. albuterol 0.83 mg/ml inhalation solution (20 sources) beta2-Adrenergic Agonist Start: 03-08-2024 2.5 mg, Nebulization, 4 TIMES DAILY PRN, Starting on 03/08/24 at 0823, Until Discontinued, Wheezing, Initiate RT Bronchodilator Protocol: No Start: 02-06-2023 End: 05-15-2024 take 2 puff(s) by inhalation four times daily as needed for wheezing albuterol sulfate HFA (VENTOLIN HFA) 108 (90 Base) MCG/ACT inhaler Inhale 2 puffs into the lungs 4 times daily as needed for Wheezing 18 g 02/06/2023 05/15/2024 Discontinued (LIST CLEANUP) Start: 01-30-2021 take 2 puff(s) by in halation every six hours as needed for wheezing albuterol sulfate HFA 108 (90 Base) MCG/ACT inhaler Indications: Bronchitis Inhale 2 puffs into the lungs every 6 hours as needed for Wheezing or Shortness of Breath 18 g 3 01/30/2021 Active Start: 06-30-2020 albuterol (PRO VENTIL) nebulizer solution 2.5 mg Start: 05-20-2020 take 2 puff(s) by in halation every six hours as needed for wheezing albuterol sulfate HFA 108 (90 Base) MCG/ACT inhaler Indications: Bronchitis Inhale 2 puffs into the lungs every 6 hours as needed for Wheezing or Shortness of Breath 1 Inhaler 5 05/20/2020 Active Start: 05-20-2020 albuterol sulf ate HFA 108 (90 Base) MCG/ACT inhaler aluminum & magnesium hydroxide-simethicone (MAALOX PLUS) 30 mL, lidocaine viscous hcl (XYLOCAINE) 5 mL (GI COCKTAIL) (1 source) Start: 08-06-2024 End: 08-06-2024 Oral, ONCE, On Alicia 08/06/24 at 0445, For 1 dose, Take 5 mL from lidocaine viscous 2% cup and mix with 30 mL of maalox and then administer. aspirin 81 mg chewable table t (2 sources) Platelet Aggregation Inhibitor, Nonsteroidal Anti-inflammatory Drug Start: 04-25-2023 End: 04-25-2023 aspirin chewable tablet 324 mg Start: 08-04-2021 End: 08-04-2022 take 1 tablet by mouth once daily aspirin 325 MG EC tablet Indications: COVID Take 1 tablet by mouth daily 30 tablet 3 08/04/2021 08/04/2022 Active azelastine hydrochloride 0.137 mg/actuat metered dose nasal spray (10 sources) Histamine-1 Receptor Antagonist Start: 03-07-2022 End: 06-23-2022 take 1 spray(s) nasal route twice daily azelastine (ASTELIN) 0.1 % nasal spray Indications: Acute sinusitis, recurrence not specified, unspecified location 1 spray by Nasal route 2 times daily Use in each nostril as directed 2 each 1 03/07/2022 06/23/2022 Discontinued (LIST CLEANUP) Start: 05-20-2020 take 1 spray(s) nasa l route twice daily azelastine (ASTELIN) 0.1 % nasal spray Indications: Acute sinusitis, recurrence not specified, unspecified location 1 spray by Nasal route 2 times daily Use in each nostril as directed 2 Bottle 1 05/20/2020 Active Start: 07-29-2019 take 1 spray(s) nasa l route twice daily azelastine (ASTELIN) 0.1 % nasal spray Indications: Acute sinusitis, recurrence not specified, unspecified location 1 spray by Nasal route 2 times daily Use in each nostril as directed 2 Bottle 1 07/29/2019 Active 120 actuat budesonide 0.08 mg/actuat / formoterol fumarate 0.0045 mg/actuat metered dose inhaler (5 sources) Corticosteroid, beta2-Adrenergic Agonist Start: 07-31-2022 End: 05-20-2024 take 1 puff(s) by inhalation every twelve hours Budesonide-Formoterol (Symbicort) 80-4.5 mcg/actuation HFA aerosol inhaler Discontinued 2 PUFF INH EVERY 12 HOURS July 31, 2022 12:00am May 20, 2024 12:10pm Start: 08-04-2021 take 2 puff(s) by in halation twice daily SYMBICORT 80-4.5 MCG/ACT AERO Indications: COVID Inhale 2 puffs into the lungs 2 times daily 10.2 g 3 08/04/2021 Active cefdinir 300 mg oral capsule (5 sources) Cephalosporin Antibacterial Start: 06-10-2024 End: 06-10-2024 take 1 capsule by mouth once 300 mg, Oral, ONCE, 1 dose, On Sat06/10/24 at 1545, Antimicrobial Indications: Pneumonia (CAP) Start: 06-10-2024 End: 06-17-2024 take 1 capsule by mouth twice daily cefdinir (OMNICEF) 300 MG capsule Take 1 capsule by mouth 2 times daily for 7 days 14 capsule 06/10/2024 06/17/2024 Active Start: 01-18-2024 End: 01-28-2024 take 1 capsule by mouth twice daily cefdinir (OMNICEF) 300 MG capsule Take 1 capsule by mouth 2 times daily for 10 days 20 capsule 01/18/2024 01/28/2024 Active celecoxib 200 mg oral capsule (9 sources) Nonsteroidal Anti-inflammatory Drug Start: 03-07-2022 End: 03-25-2024 take 1 capsule by mouth once daily Celecoxib 200 mg capsule Discontinued 200 MG PO Every Day July 31, 2022 12:00am March 25, 2024 10:16am chlorzoxazone 500 mg oral tablet (4 sources) Muscle Relaxant Start: 11-25-2022 End: 03-06-2023 take 500 mg by mouth three times daily Chlorzoxazone Discontinued 500 MG PO 3 Times a Day November 25, 2022 12:00am March 06, 2023 10:53pm cholecalciferol 0.025 mg oral tablet (5 sources) Vitamin D Start: 03-07-2022 End: 06-23-2022 take 1 tablet by mouth once daily vitamin D3 (CHOLECALCIFEROL) 25 MCG (1000 UT) TABS tablet Indications: COVID Take 1 tablet by mouth daily 90 tablet 1 03/07/2022 06/23/2022 Discontinued (LIST CLEANUP) Start: 08-04-2021 take 1 tablet by vivi th once daily vitamin D3 (CHOLECALCIFEROL) 25 MCG (1000 UT) TABS tablet Indications: COVID Take 1 tablet by mouth daily 90 tablet 1 08/04/2021 Active dexamethasone phosphate 10 mg/ml injectable solution (8 sources) Corticosteroid Start: 06-03-2024 End: 06-03-2024 10 mg, IntraVENous, ONCE, On Sat06/03/24 at 1200, For 1 dose Start: 04-10-2024 End: 04-10-2024 10 mg, IntraVENous, ONCE, On Sat04/10/24 at 0245, For 1 dose Start: 03-18-2024 End: 03-18-2024 inject 10 mg by intramuscular injection once 10 mg, IntraMUSCular, ONCE, On Sat03/18/24 at 0515, For 1 dose Start: 03-17-2024 End: 03-17-2024 take 6 mg by mouth once 6 mg, Oral, ONCE, On 03/04 at 0330, For 1 dose Start: 09-29-2023 End: 09-29-2023 dexAMETHasone (DECADRON) injection 10 mg Start: 05-06-2023 End: 05-06-2023 dexAMETHasone (DECADRON) injection 10 mg Start: 07-31-2022 End: 07-31-2022 dexamethasone (DECADRON) injection 10 mg Start: 08-04-2021 dexamethasone (DECADRON) tablet Indications: COVID Take 8 mg a day for 5 days, then 4 mg a day for 5 days 15 tablet 0 08/04/2021 Active diazePAM 5 mg oral tablet (1 source) Benzodiazepine Start: 08-13-2023 End: 08-13-2023 take 10 mg by mouth once 10 mg, oral, Once, On Sat08/13/23 at 1625, For 1 dose doxycycline hyclate 100 mg oral capsule (5 sources) Tetracycline-class Drug Start: 06-10-2024 End: 06-10-2024 take 1 capsule by mouth once 100 mg, Oral, ONCE, 1 dose, On Sat06/10/24 at 1545, Antimicrobial Indications: Pneumonia (CAP), This medication can interact with tube feedings (TF)- obtain MD order to manage. Recommend holding TF for 1 h before and 2 h after dose. Take 1 h before or 2 h after dairy, calcium, iron, magnesium, aluminum or zinc. Start: 06-10-2024 End: 06-17-2024 take 1 tablet by mouth twice daily doxycycline hyclate (VIBRA-TABS) 100 MG tablet Take 1 tablet by mouth 2 times daily for 7 days 14 tablet 06/10/2024 06/17/2024 Active Start: 01-18-2024 End: 01-28-2024 take 1 tablet by mouth twice daily doxycycline hyclate (VIBRA-TABS) 100 MG tablet Take 1 tablet by mouth 2 times daily for 10 days 20 tablet 01/18/2024 01/28/2024 Active 2 ml droperidol 2.5 mg/ml injection (1 source) Dopamine-2 Receptor Antagonist Start: 08-06-2023 End: 08-06-2023 inject 1 dose by intramuscular injection once 2.5 mg, Intramuscular, ONCE, 1 dose, On Sat08/06/23 at 0659 Start: 08-06-2023 End: 08-06-2023 inject 1 dose by intramuscular injection once 2.5 mg, Intramuscular, ONCE, 1 dose, On Sat08/06/23 at 0659 DULoxetine 30 mg delayed release oral capsule (20 sources) Serotonin and Norepinephrine Reuptake Inhibitor Start: 03-08-2024 take 1 capsule by mouth twice daily 60 mg, Oral, 2 TIMES DAILY, First dose (after last reorder) on Sat03/08/24 at 1015, Until Discontinued, Do not crush or break. May add contents of capsule to apple juice or apple sauce, but not chocolate. Start: 10-23-2023 End: 03-09-2024 take 1 capsule by mouth twice daily DULoxetine (CYMBALTA) 60 mg capsule Take 1 capsule by mouth two times a day. 10/23/2023 Active Start: 08-01-2022 Duloxetine 60 mg capsule,delayed release(DR/EC) Active EACH PO August 01, 2022 12:00am Start: 12-30-2021 take 1 capsule by mo uth once daily DULoxetine (Cymbalta) [address] capsule Take 1 capsule (60 mg) by mouth once daily. 12/30/2021 Active Start: 09-11-2021 take 1 capsule by mo uth once daily DULoxetine (CYMBALTA) 60 MG extended release capsule Indications: PTSD (post-traumatic stress disorder) Take 1 capsule by mouth daily 90 capsule 0 09/11/2021 Active Start: 05-20-2020 take 1 capsule by mo uth once daily DULoxetine (CYMBALTA) 60 MG extended release capsule Indications: PTSD (post-traumatic stress disorder) Take 1 capsule by mouth daily 90 capsule 1 05/20/2020 Active Start: 12-03-2018 End: 03-09-2023 take 1 capsule by mouth once daily DULoxetine (CYMBALTA) 30 MG extended release capsule Indications: Annular tear of lumbar disc , DDD (degenerative disc disease), lumbar Take 1 capsule by mouth daily 90 capsule 1 11/17/2019 Active Comment on above: Take 30 mg by mouth once daily. 0.4 ml enoxaparin sodium 100 mg/ml prefilled syringe (2 sources) Low Molecular Weight Heparin Start: 03-08-19 inject 40 mg by subcutaneous injection once daily 40 mg, SubCUTAneous, DAILY, First dose on 03/08/24 at 0900, Until Discontinued, Indication of Use: Prophylaxis-DVT/PE, Administer by deep subCUTAneous injection with pt lying down. Alternate injection sites on abdominal wall. Do not rub site after injection. Check with provider prior to any invasive procedure. Start: 07-01-2020 enoxaparin (LO VENOX) injection 40 mg fluticasone propionate 0.05 mg/actuat metered dose nasal spray (11 sources) Corticosteroid Start: 03-07-2022 End: 06-23-2022 fluticasone (FLONASE) 50 MCG/ACT nasal spray Indications: Acute bacterial sinusitis , Sore throat 1 spray by Nasal route daily 15.8 g 3 03/07/2022 06/23/2022 Discontinued (LIST CLEANUP) Start: 09-11-2021 fluticasone (F LONASE) 50 MCG/ACT nasal spray Indications: Acute bacterial sinusitis , Sore throat 1 spray by Nasal route daily 15.8 g 3 09/11/2021 Active Start: 07-01-2020 fluticasone (F LONASE) 50 MCG/ACT nasal spray 1 spray Start: 05-20-2020 fluticasone (F LONASE) 50 MCG/ACT nasal spray Indications: Acute bacterial sinusitis , Sore throat 1 spray by Nasal route daily 1 Bottle 5 05/20/2020 Active Start: 05-20-2020 fluticasone (F LONASE) 50 MCG/ACT nasal spray Start: 11-17-2019 fluticasone (F LONASE) 50 MCG/ACT nasal spray Indications: Acute bacterial sinusitis , Sore throat 1 spray by Nasal route daily 1 Bottle 3 11/17/2019 Active tazcbhoozin-qtwxcqkxn-aqjifb (TRELEGY ELLIPTA) 200-62.5-25 MCG/ACT AEPB inhaler (20 sources) Start: 07-10-2022 End: 07-31-2022 take 1 puff(s) by inhalation once daily byjirgbswcr-nknopihqp-mljxhg (TRELEGY ELLIPTA) 200-62.5-25 MCG/ACT AEPB inhaler Inhale 1 puff into the lungs daily 1 each 3 07/10/2022 07/31/2022 Discontinued (LIST CLEANUP) Start: 03-23-2022 take 1 puff(s) by inhalation once daily qrvsmsbgeaz-opjtnvyou-hysdjd (TRELEGY ELLIPTA) 200-62.5-25 MCG/ACT AEPB inhaler Inhale 1 puff into the lungs daily 1 each 3 03/23/2022 Active take 1 puff(s) by inhalation once daily as needed zxvifpqieih-zvqerznsy-omdodu (TRELEGY ELLIPTA) 200-62.5-25 MCG/ACT AEPB inhaler Inhale 1 puff into the lungs daily as needed Active gadobenate dimeglumine (MULTIHANCE) injection 10 mL (1 source) Start: 08-17-2022 End: 08-17-2022 gadobenate dimeglumine (MULTIHANCE) injection 10 mL gadobenate dimeglumine (MULTIHANCE) injection 15 mL (1 source) Start: 10-18-2023 End: 10-18-2023 take 1 dose intravenously once 15 mL, IntraVENous, IMG ONCE PRN, 1 dose, Starting on Sat10/18/23 at 1207, Until Sat10/18/23 at 1207, Other gadoteridol (PROHANCE) injection 13 mL (1 source) Start: 03-08-2024 End: 03-08-2024 take 1 dose intravenously once 13 mL, IntraVENous, IMG ONCE PRN, 1 dose, Starting on Sat03/08/24 at 1156, Until Sat03/08/24 at 1202, Other 1000 ml glucose 500 mg/ml injection (1 source) Start: 10-18-2023 25 mL, IntraVENous, PRN, Starting on Sat10/18/23 at 1131, Until Discontinued, Low blood sugar 0.5 ml HYDROmorphone hydrochloride 1 mg/ml prefilled syringe (2 sources) Opioid Agonist Start: 05-17-2024 End: 05-17-2024 0.5 mg, intravenous, Once, On Sat05/17/24 at 0355, For 1 dose Start: 10-18-2023 End: 10-18-2023 take 1 dose by mouth every hour 1 mg, IntraVENous, ONCE, 1 dose, On Sat10/18/23 at 1145, Give just prior to Mri If oral and IV narcotics ordered, use oral first and only use IV if oral is ineffective or cannot take oral. Do Not give oral and IV within 1 hour of each other unless specifically ordered., Give just prior to Mri hydrOXYzine hydrochloride 25 mg oral tablet (20 sources) Antihistamine Start: 06-10-2024 End: 06-10-2024 take 1 tablet by mouth every eight hours as needed hydrOXYzine HCl (ATARAX) 25 MG tablet Take 1 tablet by mouth every 8 hours as needed for Itching 9 tablet 06/10/2024 06/10/2024 Discontinued (LIST CLEANUP) Start: 03-13-2024 take 1 tablet by vivi th every eight hours as needed Hydroxyzine Hcl 25 mg tablet Active 25 MG PO Q8H as needed March 13, 2024 1:00am Start: 04-25-2023 End: 05-09-2023 take 1 capsule by mouth three times daily as needed hydrOXYzine pamoate (VISTARIL) 25 MG capsule Take 1-2 capsules by mouth 3 times daily as needed for Anxiety 30 capsule 0 04/25/2023 05/09/2023 Active take 1 tablet by vivi th twice daily Hydroxyzine Hcl (Hydroxyz HCl50 MG) 50 MG TAB Active 50 MG PO TWICE A DAY End: 06-23-2024 iohexol (OMNIPaque) 350 mg iodine/mL solution 100 mL (1 source) Start: 05-17-2024 End: 05-17-2024 100 mL, intravenous, Once in imaging, Starting on 05/17/24 at 0308, For 1 dose iohexol 300 mg injection (OMNIPAQUE 300) (2 sources) Start: 10-08-2023 End: 10-08-2023 iohexol 300 mg injection (OMNIPAQUE 300) Iopamidol (1 source) Radiographic Contrast Agent Start: 01-07-2019 End: 01-07-2019 iopamidol (ISOVUE-370) 76 % injection 90 mL iopamidol (ISOVUE-370) 76 % injection 50 mL (1 source) Start: 03-22-2022 End: 03-22-2022 iopamidol (ISOVUE-370) 76 % injection 50 mL iopamidol (ISOVUE-370) 76 % injection 75 mL (3 sources) Start: 06-03-2024 End: 06-03-2024 take 1 dose intravenously once 75 mL, IntraVENous, IMG ONCE PRN, 1 dose, Starting on Sat06/03/24 at 1330, Until 06/03/24 at 1330, Other Start: 03-07-2024 End: 03-07-2024 take 1 dose intravenously once 75 mL, IntraVENous, IMG ONCE PRN, 1 dose, Starting on 03/07/24 at 2312, Until 03/07/24 at 2329, Other Start: 06-30-2020 End: 06-30-2020 iopamidol (ISOVUE-370) 76 % injection 75 mL levETIRAcetam 500 mg oral tablet (4 sources) Start: 11-10-2002 End: 10-24-2022 KEPPRA 500MG TABLET Comment on above: Take two(2) tablets twice daily. 1 ml LORazepam 2 mg/ml injection (8 sources) Benzodiazepine Start: 06-10-2024 End: 06-10-2024 inject 1 dose intravenously once 1 mg, IntraVENous, ONCE, 1 dose, On Sat06/10/24 at 1330, Immediately prior to intravenous use, lorazepam Injection must be diluted with at least an equal volume of compatible solution (NS or D5W). Start: 05-22-2024 End: 05-22-2024 take 1 dose by mouth once 1 mg, Oral, ONCE, 1 dose, On Sat05/22/24 at 1245 Start: 03-08-2024 End: 03-08-2024 inject 0.5 mg intravenously once 0.5 mg, IntraVENous, ONCE, 1 dose, On 03/08/24 at 1115, Immediately prior to intravenous use, lorazepam Injection must be diluted with at least an equal volume of compatible solution (NS or D5W). Start: 04-25-2023 End: 04-25-2023 LORazepam (ATIVAN) injection 2 mg End: 10-24-2022 take 1 tablet by mouth twice daily LORazepam (ATIVAN) 1 mg tablet Take 1 mg by mouth twice daily. 0 10/24/2022 Discontinued (Discontinued by another Health Care Provider) Comment on above: Take 1 mg by mouth t wice daily. meclizine hydrochloride 12.5 mg oral tablet (1 source) Antiemetic Start: 2024 End: 2024 take 1 dose by mouth once 25 mg, Oral, ONCE, 1 dose, On 03/08/24 at 0100 methylsulfonylmethane 500 mg oral capsule (4 sources) Start: 2022 End: 2023 Methylsulfonylmethane 500 mg cap Take by mouth. 0 09/20/2022 07/22/2023 Discontinued Start: 09-20-2022 take 1 capsule by mo uth once Methylsulfonylmethane 500 mg capsule Active 1500 MG PO Once September 20, 2022 12:00am Start: 09-20-2022 take 1500 mg by mouth once Met hylsulfonylmethane Active 1500 MG PO Once September 20, 2022 12:00am 1 ml morphine sulfate 4 mg/ml injection (18 sources) Opioid Agonist Start: 03-17-2024 End: 03-17-2024 take 1 dose by mouth every hour 6 mg, IntraMUSCular, ONCE, 1 dose, On Sat03/17/24 at 0330, If oral and IV narcotics ordered, use oral first and only use IV if oral is ineffective or cannot take oral. Do Not give oral and IV within 1 hour of each other unless specifically ordered. Start: 03-08-2024 End: 03-08-2024 take 1 dose by mouth every hour 2 mg, IntraVENous, NOW , 1 dose, On Sat03/08/24 at 1115, If oral and IV narcotics ordered, use oral first and only use IV if oral is ineffective or cannot take oral. Do Not give oral and IV within 1 hour of each other unless specifically ordered. Start: 10-18-2023 End: 10-18-2023 take 1 dose by mouth every hour 4 mg, IntraVENous, ONC E, 1 dose, On Sat10/18/23 at 0945, If oral and IV narcotics ordered, use oral first and only use IV if oral is ineffective or cannot take oral. Do Not give oral and IV within 1 hour of each other unless specifically ordered. Start: 04-04-2023 End: 04-04-2023 take 1 tablet by mouth twice daily as needed for pain Morphine Sulfate (MSIR15 M1) 15 MG TAB Discontinued 15 MG PO TWICE A DAY NEEDED as needed for PAIN 7-10 14 7 April 04, 2023 8:01am April 04, 2023 8:26am 2 ml orphenadrine citrate 30 mg/ml injection (11 sources) Muscle Relaxant Start: 07-01-2024 End: 07-01-2024 inject 1 dose by intramuscular injection once 60 mg, IntraMUSCular, ONCE, 1 dose, On Sat07/01/24 at 0830 Start: 06-17-2024 End: 06-17-2024 inject 1 dose by intramuscular injection once 60 mg, IntraMUSCular, ONCE, 1 dose, On Sat06/17/24 at 0530 Start: 04-20-2024 End: 04-20-2024 inject 1 dose by intramuscular injection once 60 mg, IntraMUSCular, ONCE, 1 dose, On Sat04/20/24 at 1545 Start: 03-29-2024 End: 03-29-2024 inject 1 dose by intramuscular injection once 60 mg, IntraMUSCular, ONCE, 1 dose, On 03/29/24 at 0830 Start: 12-03-2023 End: 12-03-2023 inject 1 dose by intramuscular injection once 30 mg, IntraMUSCular, ONCE, 1 dose, On Sat12/03/23 at 0430 Start: 09-29-2023 End: 09-29-2023 orphenadrine (NORFLEX) injec tion 60 mg Start: 12-04-2022 End: 12-04-2022 orphenadrine (Norflex) injec tion 60 mg Start: 08-17-2022 End: 08-17-2022 orphenadrine (NORFLEX) injec tion 60 mg Start: 07-31-2022 End: 07-31-2022 orphenadrine (NORFLEX) injec tion 60 mg Start: 06-23-2022 End: 06-23-2022 orphenadrine (NORFLEX) injec tion 60 mg oxyCODONE hydrochloride 5 mg oral tablet (20 sources) Opioid Agonist Start: 07-12-2024 End: 07-12-2024 take 5 mg by mouth once as needed for pain 5 mg, oral, Once, On 07/12/24 at 0340, For 1 dose, If ordered PRN for pain, nurse is permitted to administer this medication for higher pain scores based on patient preference? Yes Start: 07-07-2024 take 1 tablet by vivi th every eight hours as needed for pain OXYCODONE IMMEDIATE RELEASE (OXY IR,ROXICODON5 MG) 5 MG Tablet Active 5 MG PO EVERY 8 HOURS NEEDED as needed for SEVERE PAIN 8 July 07, 2024 8:04am Si tab PO q8h prn for severe pain. Take with a large glass of water. Start: 05-11-2024 take 1 tablet by vivi th every six hours as needed oxyCODONE IR (ROXICODONE) 5 mg immediate release tablet Take 5 mg by mouth every 6 hours as needed. 05/11/2024 Active Start: 02-10-2024 End: 02-10-2024 take 5 mg by mouth once as needed for pain 5 mg, oral, Once, On Sat02/10/24 at 0440, For 1 dose, If ordered PRN for pain, nurse is permitted to administer this medication for higher pain scores based on patient preference? Yes, Indications: pain Start: 12-07-2023 End: 07-07-2024 take 1 tablet by mouth three times daily as needed for pain OXYCODONE IMMEDIATE RELEASE (OXY IR,ROXICODON5 MG) 5 MG Tablet Discontinued 5 MG PO THREE TIMES DAILY NEEDED as needed for PAIN 7-10 12 December 07, 2023 8:20am July 07, 2024 4:27am Start: 04-04-2023 End: 08-01-2023 take 1 tablet by mouth three times daily as needed for pain OXYCODONE IMMEDIATE RELEASE (OXY IR,ROXICODON5 MG) 5 MG Tablet Discontinued 5 MG PO THREE TIMES DAILY NEEDED as needed for PAIN 7-10 15 April 04, 2023 8:26am August 01, 2023 6:44am Oxycodone W/ Apap 5-325 Mg (14 sources) Start: 08-28-2022 End: 09-02-2022 take 5-325 mg by mouth every six hours as needed Oxycodone W/ Apap 5-325 Mg 1 TAB PO EVERY 6 HOURS NEEDED PRN 10 August 28,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 Specific [place] (1.002 - 1.030) 1.010 Urines Urine Color (YELLOW) YELLOW Urine Appearance (CLEAR) CLEAR Urine pH (4.6 - 8.0) 6.0 Ur Specific [place] (1.002 - 1.030) 1.012 Urine Protein (NEG) NEG Urine Glucose (UA) (NEG MG/DL) NEG Urine Ketones (NEG) NEG Urine Hemoglobin (NEG) NEG Urine Nitrite (NEG) NEG Urine Gross Bile (NEG) NEG Urine Urobilinogen (<2.0 MG/DL) NEG Ur Leukocyte Esterase (NEG) TR Urine RBC (NEG /HPF) 0-2 Urine WBC (NEG) 0-5 Ur Squamous Epith Cells (NEG /HPF) 0-5 Urine Ascorbic Acid (NEG MG/DL) NEG (Edwar Raygoza MD) Assessment / Plan, ED Orders: All Orders Procedure Date/time Status URINE CULTURE 07/08 615 Active ROUTINE URINE WITH REFLEX CULT 07/07 604 Complete DRUG SCREEN (more content not included)... Normal [facility] Glucose Ur Ql Strip.autoOrde red By: Edwar Raygoza on 07-07-2024 Glucose Auto test strip Ql (U) Negative NEG [facility] Hgb Ur Ql Strip.autoOrdered By: Edwar Raygoza on 07-07-2024 Hemoglobin Auto test strip Ql (U) Negative NEG [facility] Ketones Ur Ql Strip.autoOrde red By: Edwar Raygoza on 07-07-2024 Ketones Auto test strip Ql (U) Negative NEG [facility] Laboratory - Chemistry and C hemistry - challengeOrdered By: Edwar Raygoza on 07-07-2024 Specific gravity (U) [Rel density] 1.010 1.002-1.030 [facility] Comment on above: This is a screening test and the results should be used formedical purposes only. Methadone Ur QlOrdered By: Jonatan Raygoza on 07-07-2024 Methadone Ql (U) Not detected None Detect [facility] Comment on above: Cut-off 300 ng/mLThi s is a screening test and the results should be used formedical purposes only. Nitrite Ur Ql Strip.autoOrde red By: Edwar Raygoza on 07-07-2024 Nitrite Auto test strip Ql (U) Negative NEG [facility] No Panel InformationOrdered By: Edwar Raygoza on 07-07-2024 Urine 6-Acetylmorphine Screen Not detected None Detect [facility] Comment on above: Cut-off 10 ng/mLThis is a screening test and the results should be used formedical purposes only. Urine Ascorbic Acid Level Negative NEG [facility] Urine Fentanyl Screen Not detected NONE DETECT [facility] Comment on above: Cut-off 1 ng/mLThis is a screening test and the results should be used formedical purposes only. Opiates Ur QlOrdered By: Regina Raygoza on 07-07-2024 Opiates Ql (U) Not detected None Detect [facility] Comment on above: Cut-off 300 ng/mLThi s is a screening test and the results should be used formedical purposes only. Oxycodone Ur QlOrdered By: Jonatan Raygoza on 07-07-2024 oxyCODONE Ql (U) Not detected None Detect [facility] Comment on above: Cut-off 100 ng/mLThi s is a screening test and the results should be used formedical purposes only.This test will detect other related compounds; Codeine,Dihydrocodeine, Hydrocodone, Hydromorphone, and Oxymorphone. Prot Ur Ql Strip.autoOrdered By: Edwar Raygoza on 07-07-2024 Protein Auto test strip Ql (U) Negative NEG [facility] RBC #/area UrnS HPFOrdered B y: Edwar Raygoza on 07-07-2024 RBC LM.HPF (Urine sed) [#/Area] 0-2 NEG [facility] ROUTINE URINE WITH RFLX CULT on 07-07-2024 Appearance (U) CLEAR Normal CLEAR [facility] [place] Comment on above: Performed By: #### U RREFLEX ####[address] [address] Color (U) YELLOW Normal YELLOW [facility] Comment on above: Performed By: #### U RREFLEX ####[address] [address] Glucose Ql (U) Negative Normal NEG [facility] [place] [facility] Comment on above: Performed By: #### U RREFLEX ####[address] [address] Nitrite Ql (U) Negative Normal NEG [facility] Comment on above: Performed By: #### U RREFLEX ####[address] [address] pH (U) 6.0 [pH] Normal 4.6-8.0 [facility] Comment on above: Performed By: #### U RREFLEX ####[address] [address] Protein Ql (U) Negative Normal NEG [facility] [place] Comment on above: Performed By: #### U RREFLEX ####[address] [address] Specific gravity (U) [Rel density] 1.012 Normal 1.002-1.030 [facility] Comment on above: Performed By: #### U RREFLEX ####[address] [address] URINE ASCORBIC ACID Negative Normal NEG [facility] Comment on above: Performed By: #### U RREFLEX ####[address] [address] URINE BILE Negative Normal NEG [facility] Comment on above: Performed By: #### U RREFLEX ####[address] [address] URINE HEMOGLOBIN Negative Normal NEG [facility] Comment on above: Performed By: #### U RREFLEX ####[address] [address] URINE KETONE Negative Normal NEG [facility] Comment on above: Performed By: #### U RREFLEX ####[address] [address] URINE LEUKOCYTES TR Abnormal NEG [facility] Comment on above: Performed By: #### U RREFLEX ####[address] [address] URINE RED BLOOD CELLS 0-2 Normal NEG [facility] Comment on above: Performed By: #### U RREFLEX ####[address] [address] URINE SQUAMOUS EPITHELIAL 0-5 Abnormal NEG [facility] Comment on above: Performed By: #### U RREFLEX ####[address] [address] URINE WBC 0-5 Normal NEG [facility] Comment on above: Performed By: #### U RREFLEX ####[address] [address] Urobilinogen (U) [Mass/Vol] Negative Normal <2.0 [facility] Comment on above: Performed By: #### U RREFLEX ####[address] [address] Specific gravity Auto test s trip (U) [Rel density]Ordered By: Edwar Raygoza on 07-07-2024 Specific gravity (U) [Rel density] 1.012 1.002-1.030 [facility] Squamous #/area UrnS HPFOrde red By: Edawr Raygoza on 07-07-2024 Epithelial cells.squamous LM.HPF (Urine sed) [#/Area] 0-5 NEG [facility] URINE CULTUREon 07-07-2024 Bacteria identified Cx Nom (U) RUN DATE: 07/08/24 Laboratory LIVE PAGE 1 RUN TIME: 923 Specimen Inquiry RUN USER: INTERFACE [facility] Department of Laboratories [address] [place] [address] PATIENT: DB DOAN LOC: [facility] U #: [id number] HOME PHONE: AGE/SX: 54/F ROOM: RE07/07/[address]: Edwar Raygoza MD : 74 BED: DIS: STATUS: DEP ER LAB O/S: Specimen: [id number] Collected: 07/07/24 Status: COMP Req#: [id number] Received: 07/07/24 Source: UR CC Sp Desc: Subm Dr: Edwar Raygoza MD Ordered: URINE CULTURE Procedure Result Verified > URINE CULTURE Final 07/08/24 COLONY COUNT > 100,000 COLONIES/ML HEAVY LACTOBACILLUS SPECIES RARE YEAST END OF REPORT Normal [facility] Comment on above: Performed By: #### C KEITH ####[place] [address] Urobilinogen Test strip Ql ( U)Ordered By: Edwar Raygoza on 07-07-2024 Urobilinogen Ql (U) Negative <2.0 [facility] WBC #/area UrnS HPFOrdered B y: Edwar Raygoza on 07-07-2024 WBC LM.HPF (Urine sed) [#/Area] 0-5 NEG [facility] WBC Ur Ql AutoOrdered By: Antonio Raygoza on 07-07-2024 WBC Auto Ql (U) TR NEG [facility] pH Auto test strip (U)Ordere d By: Edwar Raygoza on 07-07-2024 pH (U) 6.0 [pH] 4.6-8.0 [facility] CBC with DIFFERENTIALon Basophils (Bld) [#/Vol] 0.0 10*3/uL Normal 0.0-0.1 [facility] Comment on above: Performed By: #### H S TROP I, CMP, MG, PT, CBCD ####[facility] [address] [place] [address] Basophils/100 WBC (Bld) 0.1 % Normal 0.0-1.0 [facility] Comment on above: Performed By: #### H S TROP I, CMP, MG, PT, CBCD ####[facility] [address] [place] [address] Eosinophils (Bld) [#/Vol] 0.0 10*3/uL Normal 0.0-0.4 [facility] Comment on above: Performed By: #### H S TROP I, CMP, MG, PT, CBCD ####[facility] [address] [place] [address] Eosinophils/100 WBC (Bld) 0.0 % Low 1.0-4.0 [facility] Comment on above: Performed By: #### H S TROP I, CMP, MG, PT, CBCD ####[facility] [address] [place] [address] Hematocrit (Bld) [Volume fraction] 39.2 % Normal 37.0-47.0 [facility] Comment on above: Performed By: #### H S TROP I, CMP, MG, PT, CBCD ####[facility] [address] [place] [address] Hemoglobin (Bld) [Mass/Vol] 13.3 g/dL Normal 12.0-16.0 [facility] Comment on above: Performed By: #### H S TROP I, CMP, MG, PT, CBCD ####[facility] [address] [place] [address] IG # 0.0 10*3/uL Normal 0.0-0.1 [facility] Comment on above: Performed By: #### H S TROP I, CMP, MG, PT, CBCD ####[facility] [address] [place] [address] IG % 0.5 % Normal 0.0-1.0 [facility] Comment on above: Performed By: #### H S TROP I, CMP, MG, PT, CBCD ####[facility] [address] [place] [address] Lymphocytes (Bld) [#/Vol] 1.3 10*3/uL Normal 1.3-4.4 [facility] Comment on above: Performed By: #### H S TROP I, CMP, MG, PT, CBCD ####[facility] [address] [place] [address] Lymphocytes/100 WBC (Bld) 16.4 % Low 27.0-41.0 [facility] Comment on above: Performed By: #### H S TROP I, CMP, MG, PT, CBCD ####[facility] [address] [place] [address] MCV (RBC) [Entitic vol] 92.2 fL Normal 81.0-99.0 [facility] Comment on above: Performed By: #### H S TROP I, CMP, MG, PT, CBCD ####[facility] [address] [place] [address] MEAN CORPUSCULAR HGB 31.3 pg High 27.0-31.0 [facility] Comment on above: Performed By: #### H S TROP I, CMP, MG, PT, CBCD ####[facility] [address] [place] [address] MEAN CORPUSCULAR HGB CONC 33.9 g/dl Normal 33.0-37.0 [facility] Comment on above: Performed By: #### H S TROP I, CMP, MG, PT, CBCD ####[facility] [address] [place] [address] Monocytes (Bld) [#/Vol] 0.4 10*3/uL Normal 0.1-1.0 [facility] Comment on above: Performed By: #### H S TROP I, CMP, MG, PT, CBCD ####[facility] [address] [place] [address] Monocytes/100 WBC (Bld) 4.9 % Normal 3.0-9.0 [facility] Comment on above: Performed By: #### H S TROP I, CMP, MG, PT, CBCD ####[facility] [address] [place] [address] Neutrophils (Bld) [#/Vol] 6.4 10*3/uL Normal 2.3-7.9 [facility] Comment on above: Performed By: #### H S TROP I, CMP, MG, PT, CBCD ####[facility] [address] [place] [address] Neutrophils/100 WBC (Bld) 78.1 % High 47.0-73.0 [facility] Comment on above: Performed By: #### H S TROP I, CMP, MG, PT, CBCD ####[facility] [address] [place] [address] NUCLEATED RED BLOOD CELL 0.0 10*3/uL Normal 0.0-0.0 [facility] Comment on above: Performed By: #### H S TROP I, CMP, MG, PT, CBCD ####[facility] [address] [place] [address] NUCLEATED RED BLOOD CELL 0.0 % Normal 0.0-0.0 [facility] Comment on above: Performed By: #### H S TROP I, CMP, MG, PT, CBCD ####[facility] [address] [place] [address] PLATELET COUNT AUTOMATED 302 10*3/uL Normal 130-400 [facility] Comment on above: Performed By: #### H S TROP I, CMP, MG, PT, CBCD ####[facility] [address] [place] [address] Platelet mean volume (Bld) [Entitic vol] 7.7 fL Low 9.6-12.3 [facility] Comment on above: Performed By: #### H S TROP I, CMP, MG, PT, CBCD ####[facility] [address] [place] [address] RBC (Bld) [#/Vol] 4.25 10*6/uL Normal 4.10-5.10 [facility] Comment on above: Performed By: #### H S TROP I, CMP, MG, PT, CBCD ####[facility] [address] [place] [address] RED CELL DISTRI WIDTH 13.2 % Normal 0-14.5 [facility] Comment on above: Performed By: #### H S TROP I, CMP, MG, PT, CBCD ####[facility] [address] [place] [address] WBC (Bld) [#/Vol] 8.1 10*3/uL Normal 4.8-10.8 [facility] Comment on above: Performed By: #### H S TROP I, CMP, MG, PT, CBCD ####[facility] [address] [place] [address] CHEST AP ONLY (1 V)on 2024 [id number] Name: JEMANITA RAYSandhya Mahmood Phys: DEBORA ACOSTA DO : 1970 Age: 54 Sex: F Acct: [id number] Loc: ED Exam Date: 07/05/2024 Status: REG ER Radiology No: [id number] Unit No: [id number] EXAM# TYPE/EXAM RESULT [id number] EDRAD/CHEST AP ONLY (1 V) SEE REPORT INDICATION: Chest pain. TECHNIQUE: Frontal chest was obtained at 2:15 hours. COMPARISON: 06/07/2024 XR Chest one view FINDINGS: The cardiomediastinal silhouette is normal in size. There is no consolidation or atelectasis in either lung. There are no pleural effusions. There is no pneumothorax. No acute osseous process. IMPRESSION: No acute cardiopulmonary process. Signed by Georgina Gordon MD [facility] [address] [place] [address] REPORT SIGNED IN OTHER VENDOR SYSTEM 07/05/2024 Reported By: GEORGINA GORDON MD CC: MARIA ELENA MONTALVO Technologist: ASAEL MORALES Transcribed Date/Time: 07/05/2024 (0257) Jalousies Installer: BRUCE Printed Date/Time: 07/05/2024 (025) PAGE 1 Signed Report Normal [facility] COMPREHENSIVE METABOLIC PANE Walt 07-05-2024 Albumin [Mass/Vol] 4.1 g/dL Normal 3.4-5.0 [facility] Comment on above: Performed By: #### H S TROP I, CMP, MG, PT, CBCD ####[facility] [address] [place] [address] ALP [Catalytic activity/Vol] 89 U/L Normal 46-116 [facility] Comment on above: Performed By: #### H S TROP I, CMP, MG, PT, CBCD ####[facility] [address] [place] [address] ALT [Catalytic activity/Vol] 18 U/L Normal 5-49 [facility] Comment on above: Performed By: #### H S TROP I, CMP, MG, PT, CBCD ####[facility] [address] [place] [address] AST [Catalytic activity/Vol] 16 U/L Normal 0-34 [facility] Comment on above: Performed By: #### H S TROP I, CMP, MG, PT, CBCD ####[facility] [address] [place] [address] Bilirubin [Mass/Vol] 0.5 mg/dL Normal 0.3-1.2 [facility] Comment on above: Performed By: #### H S TROP I, CMP, MG, PT, CBCD ####[facility] [address] [place] [address] CALCIUM,TOTAL 10.1 md/dL Normal 8.7-10.4 [facility] Comment on above: Performed By: #### H S TROP I, CMP, MG, PT, CBCD ####[facility] [address] [place] [address] Chloride [Moles/Vol] 104 mmol/L Normal 98-107 [facility] Comment on above: Performed By: #### H S TROP I, CMP, MG, PT, CBCD ####[facility] [address] [place] [address] CO2 [Moles/Vol] 27 mmol/L Normal 20-31 [facility] Comment on above: Performed By: #### H S TROP I, CMP, MG, PT, CBCD ####[facility] [address] [place] [address] Creatinine [Mass/Vol] 0.57 mg/dL Normal 0.55-1.02 [facility] Comment on above: Performed By: #### H S TROP I, CMP, MG, PT, CBCD ####[facility] [address] [place] [address] EST GLOM FILT > 60 Normal [facility] Comment on above: Result Comment: Result Units: mL/min/1.73 m2 Note: Persistent reduction for 3 months or more of an eGFR of <60 ml/min/1.73 m2 defines Chronic Kidney Disease (CKD). Patients with eGFR values greater than or equal to 60 ml/min/1.73 m2 may also have CKD if evidence of persistent proteinuria is present. STAGES OF CKD eGFR Stage 1 Kidney damage with normal kidney function >=90 Stage 2 Kidney damage with mild loss of kidney function 89-60 Stage 3a Mild to moderate loss of kidney function 59-44 Stage 3b Moderate to severe loss of kidney function 43-30 Stage 4 Severe loss of kidney function 29-15 Stage 5 Kidney failure < 15 . Performed By: #### H S TROP I, CMP, MG, PT, CBCD ####[facility] [address] [place] [address] ESTIMATED GLOM FILT RATE > 60 Normal [facility] Comment on above: Performed By: #### H S TROP I, CMP, MG, PT, CBCD ####[facility] [address] [place] [address] Glucose [Mass/Vol] 126 mg/dL High 65-99 [facility] Comment on above: Performed By: #### H S TROP I, CMP, MG, PT, CBCD ####[facility] [address] [place] [address] Potassium [Moles/Vol] 3.6 mmol/L Normal 3.4-5.1 [facility] Comment on above: Performed By: #### H S TROP I, CMP, MG, PT, CBCD ####[facility] [address] [place] [address] Protein [Mass/Vol] 7.1 g/dL Normal 6.0-8.0 [facility] Comment on above: Performed By: #### H S TROP I, CMP, MG, PT, CBCD ####[facility] [address] [place] [address] Sodium [Moles/Vol] 138 mmol/L Normal 136-145 [facility] Comment on above: Performed By: #### H S TROP I, CMP, MG, PT, CBCD ####[facility] [address] [place] [address] Urea nitrogen [Mass/Vol] 13 mg/dL Normal 9-23 [facility] Comment on above: Performed By: #### H S TROP I, CMP, MG, PT, CBCD ####[facility] [address] [place] [address] ELECTROCARDIOGRAM REPORTon 0 07-05-2024 Staff Accountant Report [place], [place] ELECTROCARDIOGRAM REPORT NAME: DB DOAN UNIT #: [id number] ROOM: DOCTOR: DEBORA ACOSTA DO BIRTHDATE: [birth year] [facility] Test Date: 2024-07-05 Test Time: 02:05:42 Pat Name: DB DOAN Department: ED Room: Gender: Female Melter Caster: MELISSA : 1970 Requested By: DEBORA ACOSTA Order Number: [id number] Reading MD: Debora Acosta DO Measurements Intervals [place] Rate: 90 P: 77 KS: 171 QRS: 10 QRSD: 91 T: 57 QT: 377 QTc: 462 Interpretive Statements Sinus rhythm Probable left atrial enlargement RSR' in V1 or V2, probably normal variant Compared to ECG 06/07/2024 08:11:11 No significant changes Rate of [address] Elevations READ AT:0211 Electronically Signed On 07-05-2024 16:00:00 PDT by Debora Acosta DO CM:EKGRPT:ELECTROCARDIO GRAM REPORT 4 1600 DEBORA ESTEBAN DO Normal [facility] HIP RIGHT (2-3 V)on 07-06-19 CRHIPR Name: FRANKIDB Mahmood Phys: DEBORA ACOSTA DO : 1970 Age: 54 Sex: F Acct: [id number] Loc: ED Exam Date: 07/05/2024 Status: REG ER Radiology No: [id number] Unit No: [id number] EXAM# TYPE/EXAM RESULT [id number] EDRAD/HIP RIGHT (2-3 V) SEE REPORT INDICATION: Injury at work, fell onto hip. Throbbing right hip joint. TECHNIQUE: Two view(s) of the right hip. COMPARISON: XR Right Hip 03/13/2023. FINDINGS: There is no displaced fracture. The alignment is anatomic. No soft tissue abnormality is seen. IMPRESSION: No acute osseous abnormality. Signed by Lino Junior MD [facility] [address], [place] [address] REPORT SIGNED IN OTHER VENDOR SYSTEM 07/05/2024 Reported By: LINO JUNIOR MD CC: MARIA ELENA MONTALVO Technologist: ASAEL MORALES Transcribed Date/Time: 07/05/2024 (0439) Jalousies Installer: BRUCE Printed Date/Time: 07/05/2024 (7594) PAGE 1 Signed Report Normal [facility] HS TROPONIN Ion 07-05-2024 HS TROPONIN I 5 ng/L Normal 0-34 [facility] Comment on above: Result Comment: Inte rpretation comment: High-sensitivity troponin I (hsTnI) assay can reliably detect low troponin concentrations relative to conventional troponin assays. It is the preferred marker of myocardial necrosis as recommended by the Fourth [employer] Definition of Myocardial Infarction Guidelines. The diagnosis of acute myocardial infarction (AMI) is made based on a rise or fall of troponin with at least one measurement exceeding the laboratory's upper limit of normal (indicatiing myocardial injury), in the context of reasonable suspicion for coronary ischemia (e.g. typical symptoms, changes on ECG, evidence for loss of myocardial infarction or demonstration of obstructive coronary artery disease). Note: Although abnormal hsTnI values reflect injury to myocardial cells, an elevated hsTnI does not indicate the cause of injury (i.e. ischemia versus non-ischemic disease). In some cases, myocardial injury is chronic and relatively stable such that hsTnI values remain elevated but do not change substantially over hours to days (examples include chronic kidney disease, heart failure or advanced patient age). When determining whether there has been a significant rise or fall of troponin on serial sampling, absolute change in troponin concentration has greater diagnostic accuracy for AMI than relative change criteria. A change of >7 ng/L over a 2-hour interval is suggested as a significant change. If the initial hsTnI is below the 99th percentile upper reference limit, a 50% change from the baseline is considered significant. If the initial hsTnI is above the 99th percentile upper reference limit, a 20% change from the baseline value is considered significant. Performed By: #### H S TROP I #### [facility] [address] [place] [address] HS TROPONIN I 5 ng/L Normal 0-34 [facility] Comment on above: Result Comment: Inte rpretation comment: High-sensitivity troponin I (hsTnI) assay can reliably detect low troponin concentrations relative to conventional troponin assays. It is the preferred marker of myocardial necrosis as recommended by the Fourth [facility] Definition of Myocardial Infarction Guidelines. The diagnosis of acute myocardial infarction (AMI) is made based on a rise or fall of troponin with at least one measurement exceeding the laboratory's upper limit of normal (indicatiing myocardial injury), in the context of reasonable suspicion for coronary ischemia (e.g. typical symptoms, changes on ECG, evidence for loss of myocardial infarction or demonstration of obstructive coronary artery disease). Note: Although abnormal hsTnI values reflect injury to myocardial cells, an elevated hsTnI does not indicate the cause of injury (i.e. ischemia versus non-ischemic disease). In some cases, myocardial injury is chronic and relatively stable such that hsTnI values remain elevated but do not change substantially over hours to days (examples include chronic kidney disease, heart failure or advanced patient age). When determining whether there has been a significant rise or fall of troponin on serial sampling, absolute change in troponin concentration has greater diagnostic accuracy for AMI than relative change criteria. A change of >7 ng/L over a 2-hour interval is suggested as a significant change. If the initial hsTnI is below the 99th percentile upper reference limit, a 50% change from the baseline is considered significant. If the initial hsTnI is above the 99th percentile upper reference limit, a 20% change from the baseline value is considered significant. Performed By: #### H S TROP I, CMP, MG, PT, CBCD ####[facility] [id number] [place] [address] MAGNESIUMon 07-05-2024 Magnesium [Mass/Vol] 2.1 mg/dL Normal 1.6-2.6 [facility] Comment on above: Performed By: #### H S TROP I, CMP, MG, PT, CBCD ####[facility] [id number] [place] [address] PROTHROMBIN TIMEon 5 INTERNATIONAL NORM RATIO 0.9 Low 2.0-3.5 [facility] Comment on above: Result Comment: INR THERAPEUTIC RANGE: GROUP A 2.0-3.0 INR GROUP B 2.5-3.5 INR GROUP A SUGGESTED INDICATIONS: PROPHYLAXIS AND TREATMENT OF VENOUS THROMBOSIS TREATMENT OF PULMONARY EMBOLISM ATRIAL FIBRILLATION GROUP B SUGGESTED INDICATIONS: MECHANICAL PROSTHETIC VALVES Performed By: #### H S TROP I, CMP, MG, PT, CBCD ####[facility] [id number] [place] [address] PT Coag (PPP) [Time] 10.0 s Normal 8.9-12.2 [facility] Comment on above: Performed By: #### H S TROP I, CMP, MG, PT, CBCD ####[facility] [id number] [place] [address] XR hand RT min 3Von 07-06-19 25 XR hand RT min 3V [facility] [address] [id number] XRay Report Signed Patient: DB DOAN MR#: [id number] 32 : 1970 Acct:[id number] Age/Sex: 54 / F Admit Date: 07/04/24 Loc: ER Attending Dr: Ordering Physician: Buck Unger MD Date of Service: 07/05/24 Procedure(s): XR hand RT min 3V Accession Number(s): [id number] cc: Buck Unger MD INDICATION: Right thumb pain after injury yesterday. TECHNIQUE: Three views of the right hand. COMPARISON: None Available. FINDINGS: There is no displaced fracture. The alignment is anatomic. No soft tissue abnormality is seen. IMPRESSION: No evidence for acute injury. Signed by Bartolo Garcia MD [address] [place] [address] Dictated By: Bartolo Garcia MD DD/ [id number] Signed By: Bartolo Garcia MD 07/05/2440 Jalousies Installer: STACY 07/05/2440 Normal [facility] ([place]) Portable XR Chest AP single viewon 07-01-2024 No acute cardiopulmonary disease. No significant change. [facility] EXAMINATION: ONE XRAY VIEW OF THE CHEST 07/01/2024 8:26 am COMPARISON: 06/10/2024 HISTORY: ORDERING SYSTEM PROVIDED HISTORY: r/o pneumonia TECHNOLOGIST PROVIDED HISTORY: Reason for exam:->r/o pneumonia FINDINGS: No significant change. Normal heart size. No acute pulmonary infiltrate. No vascular congestion or pleural effusion. No pneumothorax. [facility] Nuno Calzada MD - 07/01/2024 EXAMINATION: ONE XRAY VIEW OF THE CHEST 07/01/2024 8:26 am COMPARISON: 06/10/2024 HISTORY: ORDERING SYSTEM PROVIDED HISTORY: r/o pneumonia TECHNOLOGIST PROVIDED HISTORY: Reason for exam:->r/o pneumonia FINDINGS: No significant change. Normal heart size. No acute pulmonary infiltrate. No vascular congestion or pleural effusion. No pneumothorax. IMPRESSION: No acute cardiopulmonary disease. No significant change. [facility] Radiology Study observation (narrative) [facility] XR CHEST PORTABLEon 07-02-19 XR CHEST PORTABLE EXAMINATION: ONE XRAY VIEW OF THE CHEST 07/01/2024 8:26 am COMPARISON: 06/10/2024 HISTORY: ORDERING SYSTEM PROVIDED HISTORY: r/o pneumonia TECHNOLOGIST PROVIDED HISTORY: Reason for exam:->r/o pneumonia FINDINGS: No significant change. Normal heart size. No acute pulmonary infiltrate. No vascular congestion or pleural effusion. No pneumothorax. IMPRESSION: No acute cardiopulmonary disease. No significant change. Interpreted by: Nuno Calzada MD Signed by: Nuno Calzada MD 07/01/24 Final result Normal [facility] Comment on above: Order Comment: Reaso n for exam:->r/o pneumonia XR SHOULDER LEFT (MIN 2 VIEW S)on 07-01-2024 XR SHOULDER LEFT (MIN 2 VIEWS) EXAMINATION: TWO XRAY VIEWS OF THE LEFT SHOULDER 07/01/2024 8:25 am COMPARISON: Left shoulder x-ray 04/11/2024 HISTORY: ORDERING SYSTEM PROVIDED HISTORY: injury TECHNOLOGIST PROVIDED HISTORY: Reason for exam:->injury FINDINGS: Limited two view exam. No fracture or dislocation. No suspicious bony lesion. The left glenohumeral joint space appears preserved. A 7.5 mm length soft tissue calcification borders the superolateral left humeral head compatible with calcific tendinosis, and unchanged. Left AC joint appears preserved. No focal soft tissue swelling. IMPRESSION: 1. No fracture or dislocation. 2. Left shoulder focal calcific tendinosis, unchanged. Interpreted by: Nuno Calzada MD Signed by: Nuno Calzada MD 07/01/24 Final result Normal [facility] Comment on above: Order Comment: Reaso n for exam:->injury XR Shoulder - left 2 Viewson 07-01-2024 1. No fracture or dislocation. 2. Left shoulder focal calcific tendinosis, unchanged. [facility] EXAMINATION: TWO XRAY VIEWS OF THE LEFT SHOULDER 07/01/2024 8:25 am COMPARISON: Left shoulder x-ray 04/11/2024 HISTORY: ORDERING SYSTEM PROVIDED HISTORY: injury TECHNOLOGIST PROVIDED HISTORY: Reason for exam:->injury FINDINGS: Limited two view exam. No fracture or dislocation. No suspicious bony lesion. The left glenohumeral joint space appears preserved. A 7.5 mm length soft tissue calcification borders the superolateral left humeral head compatible with calcific tendinosis, and unchanged. Left AC joint appears preserved. No focal soft tissue swelling. [facility] Nuno Calzada MD - 07/01/2024 EXAMINATION: TWO XRAY VIEWS OF THE LEFT SHOULDER 07/01/2024 8:25 am COMPARISON: Left shoulder x-ray 04/11/2024 HISTORY: ORDERING SYSTEM PROVIDED HISTORY: injury TECHNOLOGIST PROVIDED HISTORY: Reason for exam:->injury FINDINGS: Limited two view exam. No fracture or dislocation. No suspicious bony lesion. The left glenohumeral joint space appears preserved. A 7.5 mm length soft tissue calcification borders the superolateral left humeral head compatible with calcific tendinosis, and unchanged. Left AC joint appears preserved. No focal soft tissue swelling. IMPRESSION: 1. No fracture or dislocation. 2. Left shoulder focal calcific tendinosis, unchanged. [facility] Radiology Study observation (narrative) [facility] XR Shoulder - left 2 ViewsOr dered By: Nuno Ward on 07-01-2024 [facility]: XR HIP BILATERAL W AP PELVIS (2 VIEWS)on 06-17-2024 XR HIP BILATERAL W AP PELVIS (2 VIEWS) EXAMINATION: ONE XRAY VIEW OF THE PELVIS AND TWO XRAY VIEWS OF EACH OF THE BILATERAL HIPS 06/17/2024 4:56 am COMPARISON: None. HISTORY: ORDERING SYSTEM PROVIDED HISTORY: hip pain TECHNOLOGIST PROVIDED HISTORY: Reason for exam:->hip pain FINDINGS: No evidence of pelvic fracture. Bilateral hips demonstrate normal alignment. No focal osseous lesion. SI joints are symmetric. IMPRESSION: No acute abnormality of the pelvis. Interpreted by: Jaja Weaver MD Signed by: Jaja Weaver MD 06/17/24 Final result Normal [facility] Comment on above: Order Comment: Reaso n for exam:->hip pain XR Pelvis and Hip - bilatera l Viewson 06-17-2024 No acute abnormality of the pelvis. [facility] EXAMINATION: ONE XRAY VIEW OF THE PELVIS AND TWO XRAY VIEWS OF EACH OF THE BILATERAL HIPS 06/17/2024 4:56 am COMPARISON: None. HISTORY: ORDERING SYSTEM PROVIDED HISTORY: hip pain TECHNOLOGIST PROVIDED HISTORY: Reason for exam:->hip pain FINDINGS: No evidence of pelvic fracture. Bilateral hips demonstrate normal alignment. No focal osseous lesion. SI joints are symmetric. [facility] Jaja Weaver MD - 06/17/2024 EXAMINATION: ONE XRAY VIEW OF THE PELVIS AND TWO XRAY VIEWS OF EACH OF THE BILATERAL HIPS 06/17/2024 4:56 am COMPARISON: None. HISTORY: ORDERING SYSTEM PROVIDED HISTORY: hip pain TECHNOLOGIST PROVIDED HISTORY: Reason for exam:->hip pain FINDINGS: No evidence of pelvic fracture. Bilateral hips demonstrate normal alignment. No focal osseous lesion. SI joints are symmetric. IMPRESSION: No acute abnormality of the pelvis. [facility] Radiology Study observation (narrative) [facility] XR Pelvis and Hip - bilatera l ViewsOrdered By: Jaja Weaver on 06-17-2024 [facility] Work Phone: CBC with Auto Differentialon 06-10-2024 Basophils (Bld) [#/Vol] 0.02 10*3/uL [facility] Basophils/100 WBC (Bld) 0 % 0.0 - 2.0 % [facility] Eosinophils (Bld) [#/Vol] 0.01 10*3/uL Low [facility] Eosinophils/100 WBC (Bld) 0 % 0 - 6 % [facility] Erythrocyte distribution width (RBC) [Ratio] 13.1 % 11.5 - 15.0 % [facility] Hematocrit (Bld) [Volume fraction] 40.6 % 34.0 - 48.0 % [facility] Hemoglobin (Bld) [Mass/Vol] 14.1 g/dL 11.5 - 15.5 g/dL [facility] Immature granulocytes (Bld) [#/Vol] 0.18 10*3/uL [facility] Immature granulocytes/100 WBC (Bld) 2 % 0.0 - 5.0 % [facility] Interpretation and review of laboratory results Abnormal [facility] Lymphocytes/100 WBC (Bld) 18 % Low 20.0 - 42.0 % [facility] Lymphocytes/100 WBC (Bld) 1.52 % [facility] MCH (RBC) [Entitic mass] 31.4 pg 26.0 - 35.0 pg [facility] MCHC (RBC) [Mass/Vol] 34.7 g/dL High 32.0 - 34.5 g/dL [facility] MCV (RBC) [Entitic vol] 90.4 fL 80.0 - 99.9 fL [facility] Monocytes/100 WBC (Bld) 10 % 2.0 - 12.0 % [facility] Monocytes/100 WBC (Bld) 0.87 % [facility] Neutrophils/100 WBC (Bld) 69 % 43.0 - 80.0 % [facility] Platelet mean volume (Bld) [Entitic vol] 7.7 fL 7.0 - 12.0 fL [facility] Platelets (Bld) [#/Vol] 352 10*3/uL [facility] RBC (Bld) [#/Vol] 4.49 10*6/uL 3.50 - 5.5 0 m/uL [facility] Segmented neutrophils/100 WBC (Bld) 5.88 % [facility] WBC other (Bld) [#/Vol] 8.5 [facility] CBC with Diffon 06-10-2024 Abs. Basophil 0.02 k/uL Normal 0.00-0.20 [facility] Comment on above: Performed By: #### Goldie SANDOVAL, UA #### [address] [address] Prevention Rn: Darci Castle MD Abs.Imm.Granulocyte 0.18 k/uL Normal 0.00-0.58 [facility] Comment on above: Performed By: #### Goldie SANDOVAL, UA #### [place] [address] Prevention Rn: Darci Castle MD Abs.Neutrophil (Seg) 5.88 k/uL Normal 1.80-7.30 [facility] Comment on above: Performed By: #### Goldie SANDOVAL, UA #### [place] [address] Prevention Rn: Darci Castle MD Basophils/100 WBC (Bld) 0 % Normal 0.0-2.0 [facility] Comment on above: Performed By: #### Goldie SANDOVAL, UA #### [address] [address] Prevention Rn: Darci Castle MD Eosinophils (Bld) [#/Vol] 0.01 10*3/uL Low 0.05-0.50 [facility] Comment on above: Performed By: #### Goldie SANDOVAL, UA #### [address] [address] Prevention Rn: Darci Castle MD Eosinophils/100 WBC (Bld) 0 % Normal 0-6 [facility] Comment on above: Performed By: #### Goldie SANDOVAL, UA #### [address] [place] [address] Prevention Rn: Darci Castle MD Erythrocyte distribution width (RBC) [Ratio] 13.1 % Normal 11.5-15.0 [facility] Comment on above: Performed By: #### Goldie SANDOVAL, UA #### [address] [place] [address] Prevention Rn: Darci Castle MD Hematocrit (Bld) [Volume fraction] 40.6 % Normal 34.0-48.0 [facility] Comment on above: Performed By: #### Goldie SANDOVAL, UA #### [address] [place] [address] Prevention Rn: Darci Castle MD Hemoglobin (Bld) [Mass/Vol] 14.1 g/dL Normal 11.5-15.5 [facility] Comment on above: Performed By: #### Goldie SANDOVAL, UA #### [address] [place] [address] Prevention Rn: Darci Castle MD Immature granulocytes/100 WBC (Bld) 2 % Normal 0.0-5.0 [facility] Comment on above: Performed By: #### Goldie SANDOVAL, UA #### [address] [place] [address] Prevention Rn: Darci Castle MD Lymphocytes (Bld) [#/Vol] 1.52 10*3/uL Normal 1.50-4.00 [facility] Comment on above: Performed By: #### Goldie SANDOVAL, UA #### [address] [place] [address] Prevention Rn: Darci Castle MD Lymphocytes/100 WBC (Bld) 18 % Low 20.0-42.0 [facility] Comment on above: Performed By: #### Goldie SANDOVAL, UA #### [address] [place] [address] Prevention Rn: Darci Castle MD MCH (RBC) [Entitic mass] 31.4 pg Normal 26.0-35.0 [facility] Comment on above: Performed By: #### Goldie SANDOVAL, UA #### [place] [id number] Prevention Rn: Darci Castle MD MCHC (RBC) [Mass/Vol] 34.7 g/dL High 32.0-34.5 [facility] Comment on above: Performed By: #### Goldie SANDOVAL, UA #### [address] [place] [address] Prevention Rn: Darci Castle MD MCV (RBC) [Entitic vol] 90.4 fL Normal 80.0-99.9 [facility] Comment on above: Performed By: #### Goldie SANDOVAL, UA #### [place] [address] Prevention Rn: Darci Castle MD Monocytes (Bld) [#/Vol] 0.87 10*3/uL Normal 0.10-0.95 [facility] Comment on above: Performed By: #### Goldie SANDOVAL, UA #### [address] [place] [address] Prevention Rn: Darci Castle MD Monocytes/100 WBC (Bld) 10 % Normal 2.0-12.0 [facility] Comment on above: Performed By: #### Goldie SANDOVAL, UA #### [place] [address] Prevention Rn: Darci Castle MD Neutrophil (Seg) 69 % Normal 43.0-80.0 [facility] Comment on above: Performed By: #### Goldie SANDOVAL, UA #### [place] [address] [place] [address] Prevention Rn: Darci Castle MD Platelet mean volume (Bld) [Entitic vol] 7.7 fL Normal 7.0-12.0 [facility] Comment on above: Performed By: #### Goldie SANDOVAL, UA #### [address] [place] [address] Prevention Rn: Darci Castle MD Platelets (Bld) [#/Vol] 352 10*3/uL Normal 130-450 [facility] Comment on above: Performed By: #### Goldie SANDOVAL, UA #### [address] [place] [address] Prevention Rn: Darci Castle MD RBC (Bld) [#/Vol] 4.49 10*6/uL Normal 3.50-5.50 [facility] Comment on above: Performed By: #### Goldie SANDOVAL, UA #### [address] [place] [address] Prevention Rn: Darci Castle MD WBC (Bld) [#/Vol] 8.5 10*3/uL Normal 4.5-11.5 [facility] Comment on above: Performed By: #### Goldie SANDOVAL, UA #### [address] [place] [address] Prevention Rn: Darci Castle MD CMPon 06-10-2024 Albumin [Mass/Vol] 4 g/dL 3.5 - 5.2 g/dL [facility] ALP [Catalytic activity/Vol] 98 U/L 35 - 104 U/L [facility] ALT [Catalytic activity/Vol] 17 U/L 0 - 32 U/L [facility] Anion gap [Moles/Vol] 10 mmol/L 7 - 16 mmol/L [facility] AST [Catalytic activity/Vol] 17 U/L 0 - 31 U/L [facility] Bilirubin [Mass/Vol] 0.2 mg/dL 0.0 - 1 .2 mg/dL [facility] Calcium [Mass/Vol] 9.5 mg/dL 8.6 - 10. 2 mg/dL [facility] Chloride [Moles/Vol] 103 mmol/L 98 - 10 7 mmol/L [facility] CO2 [Moles/Vol] 27 mmol/L 22 - 29 mmol/L [facility] Creatinine [Mass/Vol] 0.7 mg/dL 0.50 - 1.00 mg/dL [facility] Est, Glom Filt Rate - PINF [facility] Comment on above: These results are not intended for use in patients <18 years of age. eGFR results are calculated without a race factor using the 2020 CKD-EPI equation. Careful clinical correlation is recommended, particularly when comparing to results calculated using previous equations. The CKD-EPI equation is less accurate in patients with extremes of muscle mass, extra-renal metabolism of creatine, excessive creatine ingestion, or following therapy that affects renal tubular secretion. Glucose [Mass/Vol] 87 mg/dL 74 - 99 mg/dL [facility] Potassium [Moles/Vol] 3.7 mmol/L 3.5 - 5.0 mmol/L [facility] Protein [Mass/Vol] 7.1 g/dL 6.4 - 8.3 g/dL [facility] Sodium [Moles/Vol] 140 mmol/L 132 - 146 mmol/L [facility] Urea nitrogen [Mass/Vol] 13 mg/dL 6 - 20 mg/dL [facility] CT LUMBAR SPINE WO CONTRASTo n 06-10-2024 CT LUMBAR SPINE WO CONTRAST EXAMINATION: CT OF THE LUMBAR SPINE WITHOUT CONTRAST 06/10/2024 TECHNIQUE: CT of the lumbar spine was performed without the administration of intravenous contrast. Multiplanar reformatted images are provided for review. Adjustment of mA and/or kV according to patient size was utilized. Automated exposure control, iterative reconstruction, and/or weight based adjustment of the mA/kV was utilized to reduce the radiation dose to as low as reasonably achievable. COMPARISON: None HISTORY: ORDERING SYSTEM PROVIDED HISTORY: acute on chronic pain TECHNOLOGIST PROVIDED HISTORY: Reason for exam:->acute on chronic pain Decision Support Exception - unselect if not a suspected or confirmed emergency medical condition->Emergency Medical Condition ([place]) FINDINGS: BONES/ALIGNMENT: There is normal alignment of the spine. The vertebral body heights are maintained. No osseous destructive lesion is seen. DEGENERATIVE CHANGES: Unchanged slight bulging discs at the lower 3 lumbar levels. No evidence of soft tissue or osseous narrowing of the canal or neural foramina. SOFT TISSUES/RETROPERITONEUM : New focal alveolar consolidation in the posteromedial left costophrenic angle could reflect pneumonia. No paraspinous soft tissue mass detected. Stomach is mildly distended with fluid. Kidneys appear normal. IMPRESSION: 1. No acute fracture or malalignment of the lumbar spine. 2. New focal alveolar consolidation in the posteromedial left lung costophrenic angle. Consider pneumonia. Interpreted by: Siddhartha Vazquez MD Signed by: Siddhartha Vazquez MD 06/10/24 Final result Normal [facility] Comment on above: Order Comment: Reaso n for exam:->acute on chronic painDecision Support Exception - unselect if not a suspected or confirmed emergency medical condition->Emergency Medical Condition (MA) CT Lumbar spine WO contrasto n 06-10-2024 1. No acute fracture or malalignment of the lumbar spine. 2. New focal alveolar consolidation in the posteromedial left lung costophrenic angle. Consider pneumonia. [facility] EXAMINATION: CT OF THE LUMBAR SPINE WITHOUT CONTRAST 06/10/2024 TECHNIQUE: CT of the lumbar spine was performed without the administration of intravenous contrast. Multiplanar reformatted images are provided for review. Adjustment of mA and/or kV according to patient size was utilized. Automated exposure control, iterative reconstruction, and/or weight based adjustment of the mA/kV was utilized to reduce the radiation dose to as low as reasonably achievable. COMPARISON: None HISTORY: ORDERING SYSTEM PROVIDED HISTORY: acute on chronic pain TECHNOLOGIST PROVIDED HISTORY: Reason for exam:->acute on chronic pain Decision Support Exception - unselect if not a suspected or confirmed emergency medical condition->Emergency Medical Condition (MA) FINDINGS: BONES/ALIGNMENT: There is normal alignment of the spine. The vertebral body heights are maintained. No osseous destructive lesion is seen. DEGENERATIVE CHANGES: Unchanged slight bulging discs at the lower 3 lumbar levels. No evidence of soft tissue or osseous narrowing of the canal or neural foramina. SOFT TISSUES/RETROPERITONEUM : New focal alveolar consolidation in the posteromedial left costophrenic angle could reflect pneumonia. No paraspinous soft tissue mass detected. Stomach is mildly distended with fluid. Kidneys appear normal. [facility] Siddhartha Gan MD - 06/10/2024 EXAMINATION: CT OF THE LUMBAR SPINE WITHOUT CONTRAST 06/10/2024 TECHNIQUE: CT of the lumbar spine was performed without the administration of intravenous contrast. Multiplanar reformatted images are provided for review. Adjustment of mA and/or kV according to patient size was utilized. Automated exposure control, iterative reconstruction, and/or weight based adjustment of the mA/kV was utilized to reduce the radiation dose to as low as reasonably achievable. COMPARISON: None HISTORY: ORDERING SYSTEM PROVIDED HISTORY: acute on chronic pain TECHNOLOGIST PROVIDED HISTORY: Reason for exam:->acute on chronic pain Decision Support Exception - unselect if not a suspected or confirmed emergency medical condition->Emergency Medical Condition (MA) FINDINGS: BONES/ALIGNMENT: There is normal alignment of the spine. The vertebral body heights are maintained. No osseous destructive lesion is seen. DEGENERATIVE CHANGES: Unchanged slight bulging discs at the lower 3 lumbar levels. No evidence of soft tissue or osseous narrowing of the canal or neural foramina. SOFT TISSUES/RETROPERITONEUM : New focal alveolar consolidation in the posteromedial left costophrenic angle could reflect pneumonia. No paraspinous soft tissue mass detected. Stomach is mildly distended with fluid. Kidneys appear normal. IMPRESSION: 1. No acute fracture or malalignment of the lumbar spine. 2. New focal alveolar consolidation in the posteromedial left lung costophrenic angle. Consider pneumonia. [facility] Radiology Study observation (narrative) [facility] CT Lumbar spine WO contrastO rdered By: Siddhartha Vazquez on 06-10-2024 [facility] Work Phone: Comp Metabolic Profon 2024 Albumin [Mass/Vol] 4.0 g/dL Normal 3.5-5.2 [facility] Comment on above: Performed By: #### Goldie ASNDOVAL, UA #### [address] [place] [address] Prevention Rn: Darci Castle MD Alkaline Phos 98 U/L Normal 35-104 [facility] Comment on above: Performed By: #### D LORI, UA #### [address] [address] Prevention Rn: Darci Castle MD ALT [Catalytic activity/Vol] 17 U/L Normal 0-32 [facility] Comment on above: Performed By: #### Goldie SANDOVAL, UA #### [address] [place] [address] Prevention Rn: Darci Castle MD Anion gap [Moles/Vol] 10 mmol/L Normal 7-16 [facility] Comment on above: Performed By: #### Goldie SANDOVAL, UA #### [address] [place] [address] Prevention Rn: Darci Castle MD AST [Catalytic activity/Vol] 17 U/L Normal 0-31 [facility] Comment on above: Performed By: #### Goldie SANDOVAL, UA #### [address] [place] [address] Prevention Rn: Darci Castle MD Bilirubin [Mass/Vol] 0.2 mg/dL Normal 0.0-1.2 [facility] Comment on above: Performed By: #### D AU, UA #### [address] [place] [address] Prevention Rn: Darci Castle MD Calcium [Mass/Vol] 9.5 mg/dL Normal 8.6-10.2 [facility] Comment on above: Performed By: #### D AU, UA #### [address] [place] [address] Prevention Rn: Darci Castle MD Chloride [Moles/Vol] 103 mmol/L Normal 98-107 [facility] Comment on above: Performed By: #### D AU, UA #### [address] [place] [address] Prevention Rn: Darci Castle MD CO2 [Moles/Vol] 27 mmol/L Normal 22-29 [facility] Comment on above: Performed By: #### D AU, UA #### [address] [place] [address] Prevention Rn: Darci Castle MD Creatinine [Mass/Vol] 0.7 mg/dL Normal 0.50-1.00 [facility] Comment on above: Performed By: #### D AU, UA #### [address] [place] [address] Prevention Rn: Darci Castle MD GFR/1.73 sq M.predicted among non-blacks MDRD (S/P/Bld) [Vol rate/Area] mL/min/{1.73_m2} Normal >60 [facility] Comment on above: Result Comment: These results are not intended for use in patients <18 years of age. eGFR results are calculated without a race factor using the 2020 CKD-EPI equation. Careful clinical correlation is recommended, particularly when comparing to results calculated using previous equations. The CKD-EPI equation is less accurate in patients with extremes of muscle mass, extra-renal metabolism of creatine, excessive creatine ingestion, or following therapy that affects renal tubular secretion. Performed By: #### D AU, UA #### [address] [place] [address] Prevention Rn: Darci Castle MD Glucose [Mass/Vol] 87 mg/dL Normal 74-99 [facility] Comment on above: Performed By: #### Goldie AU, UA #### [address] [place] [address] Prevention Rn: Darci Castle MD Potassium [Moles/Vol] 3.7 mmol/L Normal 3.5-5.0 [facility] Comment on above: Performed By: #### Goldie AU, UA #### [address] [place] [address] Prevention Rn: Darci Castle MD Protein [Mass/Vol] 7.1 g/dL Normal 6.4-8.3 [facility] Comment on above: Performed By: #### Goldie SANDOVAL, UA #### [address] [place] [address] Prevention Rn: Darci Castle MD Sodium [Moles/Vol] 140 mmol/L Normal 132-146 [facility] Comment on above: Performed By: #### Goldie AU, UA #### [address] [place] [address] Prevention Rn: Darci Castle MD Urea nitrogen [Mass/Vol] 13 mg/dL Normal 6-20 [facility] Comment on above: Performed By: #### Goldie SANDOVAL, UA #### [address] [place] [address] Prevention Rn: Darci Castle MD HCG Screen, Urineon 06-11-19 25 Beta HCG ( test) Ql (U) Negative Normal NEG [facility] Comment on above: Result Comment: Test results should always be evaluated with all available clinical data. If a urine sample is too dilute, it may not contain a advertising sales representative urinary hCG concentration. If a negative result is obtained and is still suspected, a first morning sample should be obtained and tested. Performed By: #### D AU, UA #### [facility] [address] [place] [address] Prevention Rn: Darci Castle MD Magnesiumon 06-10-2024 Magnesium [Mass/Vol] 2.1 mg/dL 1.6 - 2 .6 mg/dL [facility] Magnesium [Mass/Vol] 2.1 mg/dL Normal 1.6-2.6 [facility] Comment on above: Performed By: #### D AU, UA #### [facility] [address] [place] [address] Prevention Rn: Darci Castle MD No Panel Informationon 06-10 [facility] Portable XR Chest AP single viewon 06-10-2024 1. No acute cardiopulmonary disease. 2. Resolution of the previously seen moderate focal area of consolidation of the lingula. [facility] EXAMINATION: ONE XRAY VIEW OF THE CHEST 06/10/2024 2:27 pm COMPARISON: Chest two views and CT pulmonary angiogram from 06/03/2024. HISTORY: ORDERING SYSTEM PROVIDED HISTORY: chest pain TECHNOLOGIST PROVIDED HISTORY: Reason for exam:->chest pain FINDINGS: The previously seen moderate focal area of consolidation of the lingula has resolved, with clearing of the infiltrate from along the left heart border. The rest of the chest remains clear. There is no sign of pneumothorax, pulmonary contusion, pleural hematoma, or rib fracture to correlate with the history of pain. The heart remains normal in size. The mediastinum is normal in appearance. The osseous structures are normal in appearance for the patient's age. [facility] Manish Gandara MD - 06/10/2024 EXAMINATION: ONE XRAY VIEW OF THE CHEST 06/10/2024 2:27 pm COMPARISON: Chest two views and CT pulmonary angiogram from 06/03/2024. HISTORY: ORDERING SYSTEM PROVIDED HISTORY: chest pain TECHNOLOGIST PROVIDED HISTORY: Reason for exam:->chest pain FINDINGS: The previously seen moderate focal area of consolidation of the lingula has resolved, with clearing of the infiltrate from along the left heart border. The rest of the chest remains clear. There is no sign of pneumothorax, pulmonary contusion, pleural hematoma, or rib fracture to correlate with the history of pain. The heart remains normal in size. The mediastinum is normal in appearance. The osseous structures are normal in appearance for the patient's age. IMPRESSION: 1. No acute cardiopulmonary disease. 2. Resolution of the previously seen moderate focal area of consolidation of the lingula. [facility] Radiology Study observation (narrative) [facility] [employer] Portable XR Chest AP single viewOrdered By: Manish Gandara on 06-10-[address] [facility] Work Phone: , urineon HCG ( test) Ql (U) Negative NEGATIVE [facility] [employer] Comment on above: Test results should always be evaluated with all available clinical data. If a urine sample is too dilute, it may not contain a advertising sales representative urinary hCG concentration. If a negative result is obtained and is still suspected, a first morning sample should be obtained and tested. Troponinon 06-10-2024 Troponin I.cardiac High sensitivity method [Mass/Vol] ng/L 0 - 9 ng/L [facility] Center[facility]uan[facility] Comment on above: High Sensitivity Troponin values cannot be compared with other Troponin methodologies. Patients with high levels of Biotin oral intake (i.e >5mg/day) may have falsely decreased Troponin levels. Samples collected within 8 hours of biotin intake may require additional information for diagnosis. [facility] Center[facility] Troponin, High Sens <6 Normal 0-9 [facility] Comment on above: Result Comment: High Sensitivity Troponin values cannot be compared with other Troponin methodologies. Patients with high levels of Biotin oral intake (i.e >5mg/day) may have falsely decreased Troponin levels. Samples collected within 8 hours of biotin intake may require additional information for diagnosis. Performed By: #### D AU, UA #### [facility] [address] [place] [address] Prevention Rn: Darci Castle MD XR CHEST PORTABLEon 06-11-19 25 XR CHEST PORTABLE EXAMINATION: ONE XRAY VIEW OF THE CHEST 06/10/2024 2:27 pm COMPARISON: Chest two views and CT pulmonary angiogram from 06/03/2024. HISTORY: ORDERING SYSTEM PROVIDED HISTORY: chest pain TECHNOLOGIST PROVIDED HISTORY: Reason for exam:->chest pain FINDINGS: The previously seen moderate focal area of consolidation of the lingula has resolved, with clearing of the infiltrate from along the left heart border. The rest of the chest remains clear. There is no sign of pneumothorax, pulmonary contusion, pleural hematoma, or rib fracture to correlate with the history of pain. The heart remains normal in size. The mediastinum is normal in appearance. The osseous structures are normal in appearance for the patient's age. IMPRESSION: 1. No acute cardiopulmonary disease. 2. Resolution of the previously seen moderate focal area of consolidation of the lingula. Interpreted by: Manish Gandara MD Signed by: Manish Gandara MD 06/10/24 Final result Normal [facility] Comment on above: Order Comment: Reaso n for exam:->chest pain XR HIP RIGHT (2-3 VIEWS)on 0 06-10-2024 XR HIP RIGHT (2-3 VIEWS) EXAMINATION: TWO XRAY VIEWS OF THE RIGHT HIP 06/10/2024 2:27 pm COMPARISON: Pelvis and right hip from 04/11/2024. HISTORY: ORDERING SYSTEM PROVIDED HISTORY: fall TECHNOLOGIST PROVIDED HISTORY: Reason for exam:->fall FINDINGS: There is no sign of fracture or dislocation of the hip. The femoral head and acetabulum are in anatomic alignment. No degenerative disease is seen. The visualized bony pelvis and soft tissues are normal in appearance. IMPRESSION: Normal examination of the right hip. Interpreted by: Manish Gandara MD Signed by: Manish Gandara MD 06/10/24 Final result Normal [facility] Comment on above: Order Comment: Reaso n for exam:->fall XR Hip - right 2 Viewson Normal examination o f the right hip. [facility] EXAMINATION: TWO XRAY VIEWS OF THE RIGHT HIP 06/10/2024 2:27 pm COMPARISON: Pelvis and right hip from 04/11/2024. HISTORY: ORDERING SYSTEM PROVIDED HISTORY: fall TECHNOLOGIST PROVIDED HISTORY: Reason for exam:->fall FINDINGS: There is no sign of fracture or dislocation of the hip. The femoral head and acetabulum are in anatomic alignment. No degenerative disease is seen. The visualized bony pelvis and soft tissues are normal in appearance. [facility] Manish Gandara MD - 06/10/2024 EXAMINATION: TWO XRAY VIEWS OF THE RIGHT HIP 06/10/2024 2:27 pm COMPARISON: Pelvis and right hip from 04/11/2024. HISTORY: ORDERING SYSTEM PROVIDED HISTORY: fall TECHNOLOGIST PROVIDED HISTORY: Reason for exam:->fall FINDINGS: There is no sign of fracture or dislocation of the hip. The femoral head and acetabulum are in anatomic alignment. No degenerative disease is seen. The visualized bony pelvis and soft tissues are normal in appearance. IMPRESSION: Normal examination of the right hip. [facility] Radiology Study observation (narrative) [facility] BASIC METABOLIC PANELon 04-0 CALCIUM,TOTAL 10.5 md/dL High 8.7-10.4 [facility] Comment on above: Performed By: #### B MP, HS TROP I, MG, CBCD ####[facility] [address] [place] [address] Chloride [Moles/Vol] 102 mmol/L Normal 98-107 [facility] Comment on above: Performed By: #### B MP, HS TROP I, MG, CBCD ####[facility] [address] [place] [address] CO2 [Moles/Vol] 26 mmol/L Normal 20-31 [facility] Comment on above: Performed By: #### B MP, HS TROP I, MG, CBCD ####[facility] [address] [place] [address] Creatinine [Mass/Vol] 0.66 mg/dL Normal 0.55-1.02 [facility] Comment on above: Performed By: #### B MP, HS TROP I, MG, CBCD ####[facility] [address] [place] [address] EST GLOM FILT > 60 Normal [facility] Comment on above: Result Comment: Result Units: mL/min/1.73 m2 Note: Persistent reduction for 3 months or more of an eGFR of <60 ml/min/1.73 m2 defines Chronic Kidney Disease (CKD). Patients with eGFR values greater than or equal to 60 ml/min/1.73 m2 may also have CKD if evidence of persistent proteinuria is present. STAGES OF CKD eGFR Stage 1 Kidney damage with normal kidney function >=90 Stage 2 Kidney damage with mild loss of kidney function 89-60 Stage 3a Mild to moderate loss of kidney function 59-44 Stage 3b Moderate to severe loss of kidney function 43-30 Stage 4 Severe loss of kidney function 29-15 Stage 5 Kidney failure < 15 . Performed By: #### B MP, HS TROP I, MG, CBCD ####[facility] [address] [place] [address] ESTIMATED GLOM FILT RATE > 60 Normal [facility] Comment on above: Performed By: #### B MP, HS TROP I, MG, CBCD ####[facility] [address] [place] [address] Glucose [Mass/Vol] 92 mg/dL Normal 65-99 [facility] Comment on above: Performed By: #### B MP, HS TROP I, MG, CBCD ####[facility] [address] [place] [address] Potassium [Moles/Vol] 3.2 mmol/L Low 3.4-5.1 [facility] Comment on above: Performed By: #### B MP, HS TROP I, MG, CBCD ####[facility] [address] [place] [address] Sodium [Moles/Vol] 137 mmol/L Normal 136-145 [facility] Comment on above: Performed By: #### B MP, HS TROP I, MG, CBCD ####[facility] [address] [place] [address] Urea nitrogen [Mass/Vol] 9 mg/dL Normal 9-23 [facility] Comment on above: Performed By: #### B MP, HS TROP I, MG, CBCD ####[facility] [address] [place] [address] CBC with DIFFERENTIALon 04-0 Basophils (Bld) [#/Vol] 0.0 10*3/uL Normal 0.0-0.1 [facility] Comment on above: Performed By: #### B MP, HS TROP I, MG, CBCD ####[facility] [address] [place] [address] Basophils/100 WBC (Bld) 0.2 % Normal 0.0-1.0 [facility] Comment on above: Performed By: #### B MP, HS TROP I, MG, CBCD ####[facility] [address] [place] [address] Eosinophils (Bld) [#/Vol] 0.0 10*3/uL Normal 0.0-0.4 [facility] Comment on above: Performed By: #### B MP, HS TROP I, MG, CBCD ####[facility] [address] [place] [address] Eosinophils/100 WBC (Bld) 0.1 % Low 1.0-4.0 [facility] Comment on above: Performed By: #### B MP, HS TROP I, MG, CBCD ####[facility] [address] [place] [address] Hematocrit (Bld) [Volume fraction] 39.9 % Normal 37.0-47.0 [facility] Comment on above: Performed By: #### B MP, HS TROP I, MG, CBCD ####[facility] [address] [place] [address] Hemoglobin (Bld) [Mass/Vol] 13.8 g/dL Normal 12.0-16.0 [facility] Comment on above: Performed By: #### B MP, HS TROP I, MG, CBCD ####[facility] [address] [place] [address] IG # 0.1 10*3/uL Normal 0.0-0.1 [facility] Comment on above: Performed By: #### B MP, HS TROP I, MG, CBCD ####[facility] [address] [place] [address] IG % 0.9 % Normal 0.0-1.0 [facility] Comment on above: Performed By: #### B MP, HS TROP I, MG, CBCD ####[facility] [address] [place] [address] Lymphocytes (Bld) [#/Vol] 1.9 10*3/uL Normal 1.3-4.4 [facility] Comment on above: Performed By: #### B MP, HS TROP I, MG, CBCD ####[facility] [address] [place] [address] Lymphocytes/100 WBC (Bld) 14.8 % Low 27.0-41.0 [facility] Comment on above: Performed By: #### B MP, HS TROP I, MG, CBCD ####[facility] [address] [place] [address] MCV (RBC) [Entitic vol] 91.1 fL Normal 81.0-99.0 [facility] Comment on above: Performed By: #### B MP, HS TROP I, MG, CBCD ####[facility] [address] [place] [address] MEAN CORPUSCULAR HGB 31.5 pg High 27.0-31.0 [facility] Comment on above: Performed By: #### B MP, HS TROP I, MG, CBCD ####[facility] [address] [place] [address] MEAN CORPUSCULAR HGB CONC 34.6 g/dl Normal 33.0-37.0 [facility] Comment on above: Performed By: #### B MP, HS TROP I, MG, CBCD ####[facility] [address] [place] [address] Monocytes (Bld) [#/Vol] 0.7 10*3/uL Normal 0.1-1.0 [facility] Comment on above: Performed By: #### B MP, HS TROP I, MG, CBCD ####[facility] [address] [place] [address] Monocytes/100 WBC (Bld) 5.4 % Normal 3.0-9.0 [facility] Comment on above: Performed By: #### B MP, HS TROP I, MG, CBCD ####[facility] [address] [place] [address] Neutrophils (Bld) [#/Vol] 9.8 10*3/uL High 2.3-7.9 [facility] Comment on above: Performed By: #### B MP, HS TROP I, MG, CBCD ####[facility] [address] [place] [address] Neutrophils/100 WBC (Bld) 78.6 % High 47.0-73.0 [facility] Comment on above: Performed By: #### B MP, HS TROP I, MG, CBCD ####[facility] [address] [place] [address] NUCLEATED RED BLOOD CELL 0.0 10*3/uL Normal 0.0-0.0 [facility] Comment on above: Performed By: #### B MP, HS TROP I, MG, CBCD ####[facility] [address] [place] [address] NUCLEATED RED BLOOD CELL 0.0 % Normal 0.0-0.0 [facility] Comment on above: Performed By: #### B MP, HS TROP I, MG, CBCD ####[facility] [address] [place] [address] PLATELET COUNT AUTOMATED 369 10*3/uL Normal 130-400 [facility] Comment on above: Performed By: #### B MP, HS TROP I, MG, CBCD ####[facility] [address] [place] [address] Platelet mean volume (Bld) [Entitic vol] 7.9 fL Low 9.6-12.3 [facility] Comment on above: Performed By: #### B MP, HS TROP I, MG, CBCD ####[facility] [address] [place] [address] RBC (Bld) [#/Vol] 4.38 10*6/uL Normal 4.10-5.10 [facility] Comment on above: Performed By: #### B MP, HS TROP I, MG, CBCD ####[facility] [address] [place] [address] RED CELL DISTRI WIDTH 12.9 % Normal 0-14.5 [facility] Comment on above: Performed By: #### B MP, HS TROP I, MG, CBCD ####[facility] [address] [place] [address] WBC (Bld) [#/Vol] 12.5 10*3/uL High 4.8-10.8 [facility] Comment on above: Performed By: #### B MP, HS TROP I, MG, CBCD ####[facility] [address] [place] [address] CHEST AP ONLY (1 V)on 2024 [id number] Name: DB DOAN Phys: BELLO ALARCON MD : 1970 Age: 54 Sex: F Acct: [id number] Loc: ED Exam Date: 06/07/2024 Status: REG ER Radiology No: [id number] Unit No: [id number] EXAM# TYPE/EXAM RESULT [id number] EDRAD/CHEST AP ONLY (1 V) SEE REPORT INDICATION: Chest pain. TECHNIQUE: Frontal chest was obtained at 8:15 hours. COMPARISON: XR chest 04/23/2023 FINDINGS: The cardiomediastinal silhouette is normal in size. There is no consolidation or atelectasis in either lung. There are no pleural effusions. There is no pneumothorax. No acute osseous process. IMPRESSION: No acute cardiopulmonary abnormality. Signed by Yovanny Addison MD [facility] [address] , [place] [address] REPORT SIGNED IN OTHER VENDOR SYSTEM 06/07/2024 Reported By: YOVANNY ADDISON MD CC: MARIA ELENA MONTALVO Technologist: ROCIO POOLE Transcribed Date/Time: 06/07/2024 (826) Jalousies Installer: BRUCE Printed Date/Time: 06/07/2024 (9765) PAGE 1 Signed Report Normal [facility] ELECTROCARDIOGRAM REPORTon 0 06-07-2024 Staff Accountant Report [place], [place] ELECTROCARDIOGRAM REPORT NAME: DB DOAN UNIT #: [id number] ROOM: DOCTOR: [facility] DRAFT REPORT BIRTHDATE: [birth year] [facility] Test Date: 2024-06-07 Test Time: 08:11:11 Pat Name: DB DOAN Department: ED Room: Gender: Female Melter Caster: DW1 : 1970 Requested By: BELLO ALARCON Order Number: [id number] Reading MD: Measurements Intervals [place] Rate: 82 P: 78 KS: 155 QRS: 4 QRSD: 98 T: 51 QT: 406 QTc: 475 Interpretive Statements Sinus rhythm Probable left atrial enlargement RSR' in V1 or V2, probably normal variant CM:EKGRPT:ELECTROCARDIO GRAM REPORT [id number] BELLO ALARCON MD [facility] BELLO ALARCON MD Normal [facility] HS TROPONIN Ion 06-07-2024 HS TROPONIN I 4 ng/L Normal 0-34 [facility] Comment on above: Result Comment: Inte rpretation comment: High-sensitivity troponin I (hsTnI) assay can reliably detect low troponin concentrations relative to conventional troponin assays. It is the preferred marker of myocardial necrosis as recommended by the Fourth Universial Definition of Myocardial Infarction Guidelines. The diagnosis of acute myocardial infarction (AMI) is made based on a rise or fall of troponin with at least one measurement exceeding the laboratory's upper limit of normal (indicatiing myocardial injury), in the context of reasonable suspicion for coronary ischemia (e.g. typical symptoms, changes on ECG, evidence for loss of myocardial infarction or demonstration of obstructive coronary artery disease). Note: Although abnormal hsTnI values reflect injury to myocardial cells, an elevated hsTnI does not indicate the cause of injury (i.e. ischemia versus non-ischemic disease). In some cases, myocardial injury is chronic and relatively stable such that hsTnI values remain elevated but do not change substantially over hours to days (examples include chronic kidney disease, heart failure or advanced patient age). When determining whether there has been a significant rise or fall of troponin on serial sampling, absolute change in troponin concentration has greater diagnostic accuracy for AMI than relative change criteria. A change of >7 ng/L over a 2-hour interval is suggested as a significant change. If the initial hsTnI is below the 99th percentile upper reference limit, a 50% change from the baseline is considered significant. If the initial hsTnI is above the 99th percentile upper reference limit, a 20% change from the baseline value is considered significant. Performed By: #### B MP, HS TROP I, MG, CBCD ####[facility] [address] [place] [address] MAGNESIUMon 06-07-2024 Magnesium [Mass/Vol] 2.3 mg/dL Normal 1.6-2.6 [facility] Comment on above: Performed By: #### B MP, HS TROP I, MG, CBCD ####[facility] [address] [place] [address] Brain Natri. Peptideon 06-05 Natriuretic peptide B (Bld) [Mass/Vol] 54 pg/mL Normal 0-125 [facility] Comment on above: Result Comment: An a ge-independent cutoff point of 300 pg/ml has a 98% negative predictive value excluding acute heart failure. Performed By: #### T HUSSEIN, CBCWD, CP #### [facility] [address] [place] [address] Prevention Rn: Darci Castle MD Brain Natriuretic Peptideon 06-05-2024 Natriuretic peptide B (Bld) [Mass/Vol] 54 pg/mL 0 - 125 pg/mL [facility] Comment on above: An age-independent c utoff point of 300 pg/ml has a 98% negative predictive value excluding acute heart failure. CBC with Auto Differentialon 06-05-2024 Basophils (Bld) [#/Vol] 0.01 10*3/uL [facility] Basophils/100 WBC (Bld) 0 % 0.0 - 2.0 % [facility] Eosinophils (Bld) [#/Vol] 0 10*3/uL Low [facility] Eosinophils/100 WBC (Bld) 0 % 0 - 6 % [facility] Erythrocyte distribution width (RBC) [Ratio] 13.2 % 11.5 - 15.0 % [facility] Hematocrit (Bld) [Volume fraction] 36.4 % 34.0 - 48.0 % [facility] Hemoglobin (Bld) [Mass/Vol] 12.6 g/dL 11.5 - 15.5 g/dL [facility] Immature granulocytes (Bld) [#/Vol] 0.09 10*3/uL [facility] Immature granulocytes/100 WBC (Bld) 1 % 0.0 - 5.0 % [facility] Interpretation and review of laboratory results Abnormal [facility] Lymphocytes/100 WBC (Bld) 11 % Low 20.0 - 42.0 % [facility] Lymphocytes/100 WBC (Bld) 1.16 % Low [facility] MCH (RBC) [Entitic mass] 31.5 pg 26.0 - 35.0 pg [facility] MCHC (RBC) [Mass/Vol] 34.6 g/dL High 32.0 - 34.5 g/dL [facility] MCV (RBC) [Entitic vol] 91 fL 80.0 - 99.9 fL [facility] Monocytes/100 WBC (Bld) 10 % 2.0 - 12.0 % [facility] Monocytes/100 WBC (Bld) 0.98 % High [facility] Neutrophils/100 WBC (Bld) 78 % 43.0 - 80.0 % [facility] Platelet mean volume (Bld) [Entitic vol] 8.1 fL 7.0 - 12.0 fL [facility] Hospital Platelets (Bld) [#/Vol] 345 10*3/uL [facility] RBC (Bld) [#/Vol] 4 10*6/uL 3.50 - 5.5 0 m/uL [facility] Segmented neutrophils/100 WBC (Bld) 8 % High [facility] WBC other (Bld) [#/Vol] 10.2 [facility] CBC with Diffon 06-05-2024 Abs. Basophil 0.01 k/uL Normal 0.00-0.20 [facility] Comment on above: Performed By: #### T ROSSY SAVAGE, CP #### [place] [address] Prevention Rn: Darci Castle MD Abs.Imm.Granulocyte 0.09 k/uL Normal 0.00-0.58 [facility] Comment on above: Performed By: #### T ROSSY SAVAGE, CP #### [place] [address] Prevention Rn: Darci Castle MD Abs.Neutrophil (Seg) 8.00 k/uL High 1.80-7.30 [facility] Comment on above: Performed By: #### T ROSSY SAVAGE, CP #### [place] [address] Prevention Rn: Darci Castle MD Basophils/100 WBC (Bld) 0 % Normal 0.0-2.0 [facility] Comment on above: Performed By: #### T ROSSY SAVAGE, CP #### [place] [address] Prevention Rn: Darci Castle MD Eosinophils (Bld) [#/Vol] 0.00 10*3/uL Low 0.05-0.50 [facility] Comment on above: Performed By: #### T ROSSY SAVAGE, CP #### [address] [place] [address] Prevention Rn: Darci Castle MD Eosinophils/100 WBC (Bld) 0 % Normal 0-6 [facility] Comment on above: Performed By: #### T ROSSY SAVAGE, CP #### [address] [place] [address] Prevention Rn: Darci Castle MD Erythrocyte distribution width (RBC) [Ratio] 13.2 % Normal 11.5-15.0 [facility] Comment on above: Performed By: #### T ROSSY SAVAGE, CP #### [place] [address] Prevention Rn: Darci Castle MD Hematocrit (Bld) [Volume fraction] 36.4 % Normal 34.0-48.0 [facility] Comment on above: Performed By: #### T ROSSY SAVAGE, CP #### [address] [place] [address] Prevention Rn: Darci Castle MD Hemoglobin (Bld) [Mass/Vol] 12.6 g/dL Normal 11.5-15.5 [facility] Comment on above: Performed By: #### T ROSSY SAVAGE, CP #### [address] [place] [address] Prevention Rn: Darci Castle MD Immature granulocytes/100 WBC (Bld) 1 % Normal 0.0-5.0 [facility] Comment on above: Performed By: #### T ROSSY SAVAGE, CP #### [address] [place] [id number] Prevention Rn: Darci Castle MD Lymphocytes (Bld) [#/Vol] 1.16 10*3/uL Low 1.50-4.00 [facility] Comment on above: Performed By: #### T ROSSY SAVAGE, CP #### [place] [address] Prevention Rn: Darci Castle MD Lymphocytes/100 WBC (Bld) 11 % Low 20.0-42.0 [facility] Comment on above: Performed By: #### T ROSSY SAVAGE, CP #### [place] [address] Prevention Rn: Darci Castle MD MCH (RBC) [Entitic mass] 31.5 pg Normal 26.0-35.0 [facility] Comment on above: Performed By: #### ROSSY ALTAMIRANO, CP #### [place] [address] Prevention Rn: Darci Castle MD MCHC (RBC) [Mass/Vol] 34.6 g/dL High 32.0-34.5 [facility] Comment on above: Performed By: #### ROSSY ALTAMIRANO, CP #### [place] [address] Prevention Rn: Darci Castle MD MCV (RBC) [Entitic vol] 91.0 fL Normal 80.0-99.9 [facility] Comment on above: Performed By: #### T ROSSY SAVAGE, CP #### [place] [address] Prevention Rn: Darci Castle MD Monocytes (Bld) [#/Vol] 0.98 10*3/uL High 0.10-0.95 [facility] Comment on above: Performed By: #### T ROSSY SAVAGE, CP #### [address] [place] [address] Prevention Rn: Darci Castle MD Monocytes/100 WBC (Bld) 10 % Normal 2.0-12.0 [facility] Comment on above: Performed By: #### ROSSY ALTAMIRANO, CP #### [address] [place] [address] Prevention Rn: Darci Castle MD Neutrophil (Seg) 78 % Normal 43.0-80.0 [facility] Comment on above: Performed By: #### ROSSY ALTAMIRANO, CP #### [address] [place] [address] Prevention Rn: Darci Castle MD Platelet mean volume (Bld) [Entitic vol] 8.1 fL Normal 7.0-12.0 [facility] Comment on above: Performed By: #### ROSSY ALTAMIRANO, CP #### [address] [place] [address] Prevention Rn: Darci Castle MD Platelets (Bld) [#/Vol] 345 10*3/uL Normal 130-450 [facility] Comment on above: Performed By: #### ROSSY ALTAMIRANO, CP #### [address] [place] [address] Prevention Rn: Darci Castle MD RBC (Bld) [#/Vol] 4.00 10*6/uL Normal 3.50-5.50 [facility] Comment on above: Performed By: #### ROSSY ALTAMIRANO, CP #### [address] [place] [address] Prevention Rn: Darci Castle MD WBC (Bld) [#/Vol] 10.2 10*3/uL Normal 4.5-11.5 [facility] Comment on above: Performed By: #### T HUSSEIN, CBCWD, CP #### [facility] [address] [place] [phone] Prevention Rn: Darci Castle MD [facility] 06-05-2024 Albumin [Mass/Vol] 4.3 g/dL 3.5 - 5.2 g/dL [facility] ALP [Catalytic activity/Vol] 112 U/L High 35 - 104 U/L [facility] ALT [Catalytic activity/Vol] 16 U/L 0 - 32 U/L [facility] Anion gap [Moles/Vol] 14 mmol/L 7 - 16 mmol/L [facility] AST [Catalytic activity/Vol] 13 U/L 0 - 31 U/L [facility] Bilirubin [Mass/Vol] 0.2 mg/dL 0.0 - 1 .2 mg/dL [facility] Calcium [Mass/Vol] 9.5 mg/dL 8.6 - 10. 2 mg/dL [facility] Chloride [Moles/Vol] 99 mmol/L 98 - 10 7 mmol/L [facility] CO2 [Moles/Vol] 22 mmol/L 22 - 29 mmol/L [facility] Creatinine [Mass/Vol] 0.6 mg/dL 0.50 - 1.00 mg/dL [facility] Est, Glom Filt Rate - PINF [facility] Comment on above: These results are not intended for use in patients <18 years of age. eGFR results are calculated without a race factor using the 2020 CKD-EPI equation. Careful clinical correlation is recommended, particularly when comparing to results calculated using previous equations. The CKD-EPI equation is less accurate in patients with extremes of muscle mass, extra-renal metabolism of creatine, excessive creatine ingestion, or following therapy that affects renal tubular secretion. Glucose [Mass/Vol] 105 mg/dL High 74 - 99 mg/dL [facility] Interpretation and review of laboratory results Abnormal [facility] Potassium [Moles/Vol] 3.9 mmol/L 3.5 - 5.0 mmol/L [facility] Protein [Mass/Vol] 6.8 g/dL 6.4 - 8.3 g/dL [facility] Sodium [Moles/Vol] 135 mmol/L 132 - 146 mmol/L [facility] Urea nitrogen [Mass/Vol] 7 mg/dL 6 - 20 mg/dL [facility] COVID-19 & Influenza Comboon 06-05-2024 FLUAV RNA KESHA+probe Ql (Resp) Not detected Not Detected [facility] FLUBV RNA KESHA+probe Ql (Resp) Not detected Not Detected [facility] SARS-CoV-2 (COVID-19) RNA KESHA+probe Ql (Resp) Not detected Not Detected [facility] Comment on above: Testing was performed using JOSE G Bri SARS-CoV-2 and Influenza A/B nucleic acid assay. This test is a multiplex Real-Time Reverse Transcriptase Polymerase Chain Reaction (RT-PCR)-based in vitro diagnostic test intended for the qualitative detection of nucleic acids from SARS-CoV-2, influenza A, and influenza B in nasopharyngeal and nasal swab specimens for use under the FDA's Emergency Use Authorization (EUA) only. Not Detected results do not preclude SARS-CoV-2 infection and should not be used as the sole basis for patient management decisions. Negative results must be combined with clinical observations, patient history, and epidemiological information. Fact sheet for Patients: https://www.fda.gov/media/190968/download Fact sheet for Healthcare Providers: https://www.fda.gov/media/482709/download Source .NASOPHARYNGEAL SWAB [facility] Specimen Description .NASOPHARYNGEAL SWAB [facility] Metabolic Profon 2024 Albumin [Mass/Vol] 4.3 g/dL Normal 3.5-5.2 [facility] Comment on above: Performed By: #### T ROSSY SAVAGE, CP #### [facility] [address] [place] [address] Prevention Rn: Darci Castle MD Alkaline Phos 112 U/L High 35-104 [facility] Comment on above: Performed By: #### T ROSSY SAVAGE, CP #### [address] [place] [address] Prevention Rn: Darci Castle MD ALT [Catalytic activity/Vol] 16 U/L Normal 0-32 [facility] Comment on above: Performed By: #### T ROSSY SAVAGE, CP #### [address] [place] [address] Prevention Rn: Darci Castle MD Anion gap [Moles/Vol] 14 mmol/L Normal 7-16 [facility] Comment on above: Performed By: #### T ROSSY SAVAGE, CP #### [address] [place] [address] Prevention Rn: Darci Castle MD AST [Catalytic activity/Vol] 13 U/L Normal 0-31 [facility] Comment on above: Performed By: #### ROSSY ALTAMIRANO, CP #### [address] [place] [address] Prevention Rn: Darci Castle MD Bilirubin [Mass/Vol] 0.2 mg/dL Normal 0.0-1.2 [facility] Comment on above: Performed By: #### T ROSSY SAVAGE, CP #### [address] [place] [address] Prevention Rn: Darci Castle MD Calcium [Mass/Vol] 9.5 mg/dL Normal 8.6-10.2 [facility] Comment on above: Performed By: #### T ROSSY SAVAGE, CP #### [address] [place] [address] Prevention Rn: Darci Castle MD Chloride [Moles/Vol] 99 mmol/L Normal 98-107 [facility] Comment on above: Performed By: #### T ROSSY SAVAGE, CP #### [address] [place] [address] Prevention Rn: Darci Castle MD CO2 [Moles/Vol] 22 mmol/L Normal 22-29 [facility] Comment on above: Performed By: #### T ROSSY SAVAGE, CP #### [address] [place] [address] Prevention Rn: Darci Castle MD Creatinine [Mass/Vol] 0.6 mg/dL Normal 0.50-1.00 [facility] Comment on above: Performed By: #### T ROSSY SAVAGE, CP #### [address] [place] [address] Prevention Rn: Darci Castle MD GFR/1.73 sq M.predicted among non-blacks MDRD (S/P/Bld) [Vol rate/Area] mL/min/{1.73_m2} Normal >60 [facility] Comment on above: Result Comment: These results are not intended for use in patients <18 years of age. eGFR results are calculated without a race factor using the 2020 CKD-EPI equation. Careful clinical correlation is recommended, particularly when comparing to results calculated using previous equations. The CKD-EPI equation is less accurate in patients with extremes of muscle mass, extra-renal metabolism of creatine, excessive creatine ingestion, or following therapy that affects renal tubular secretion. Performed By: #### T ROSSY SAVAGE, CP #### [address] [place] [address] Prevention Rn: Darci Castle MD Glucose [Mass/Vol] 105 mg/dL High 74-99 [facility] Comment on above: Performed By: #### T ROSSY SAVAGE, CP #### [address] [place] [address] Prevention Rn: Darci Castle MD Potassium [Moles/Vol] 3.9 mmol/L Normal 3.5-5.0 [facility] Comment on above: Performed By: #### ROSSY ALTAMIRANO, CP #### [address] [place] [address] Prevention Rn: Darci Castle MD Protein [Mass/Vol] 6.8 g/dL Normal 6.4-8.3 [facility] Comment on above: Performed By: #### ROSSY ALTAMIRANO, CP #### [address] [place] [address] Prevention Rn: Darci Castle MD Sodium [Moles/Vol] 135 mmol/L Normal 132-146 [facility] Comment on above: Performed By: #### ROSSY ALTAMIRANO, CP #### [address] [place] [address] Prevention Rn: Darci Castle MD Urea nitrogen [Mass/Vol] 7 mg/dL Normal 6-20 [facility] Comment on above: Performed By: #### ROSSY ALTAMIRANO, CP #### [address] [place] [address] Prevention Rn: Darci Castle MD D-Dimer, Quantitativeon D-Dimer, Quant [facility] Comment on above: D-DIMER Interpretation: <230 ng/mL (D-DU) Indicates low probability for PE/DVT >= 4000/ng/mL (D-DU) This level could suggest the presence of DIC. Clinical correlation may be helpful. [facility] D-Dimer,Quantitativeon 06-05 D-dimer <200 Normal 0-230 [facility] Comment on above: Result Comment: D-DIMER Interpretation: <230 ng/mL (D-DU) Indicates low probability for PE/DVT >= 4000/ng/mL (D-DU) This level could suggest the presence of DIC. Clinical correlation may be helpful. Performed By: #### T ROSSY SAVAGE, CP #### [address] [phone] Prevention Rn: Darci Castle MD Magnesium 06-05-2024 Magnesium [Mass/Vol] 2.1 mg/dL 1.6 - 2 .6 mg/dL [facility] Magnesium [Mass/Vol] 2.1 mg/dL Normal 1.6-2.6 [facility] Comment on above: Performed By: #### T ROSSY SAVAGE, CP #### [address] [id number] Prevention Rn: Darci Castle MD No Panel Informationon 06-05 [facility] SARS-CoV-2 + Flu A/[facility] 06-05 Influenza A, RT-PCR Not detected Normal [facility] Comment on above: Performed By: #### D AU, UA #### [address] [place] [address] Prevention Rn: Darci Castle MD Influenza B, RT-PCR Not detected Normal [facility] Comment on above: Performed By: #### D LORI, UA #### [address] [place] [address] Prevention Rn: Darci Castle MD SARS-CoV-2 (COVID-19) RNA KESHA+probe Ql (Unsp spec) Not detected Normal [facility] Comment on above: Result Comment: Testing was performed using JOSE G Bri SARS-CoV-2 and Influenza A/B nucleic acid assay. This test is a multiplex Real-Time Reverse Transcriptase Polymerase Chain Reaction (RT-PCR)-based in vitro diagnostic test intended for the qualitative detection of nucleic acids from SARS-CoV-2, influenza A, and influenza B in nasopharyngeal and nasal swab specimens for use under the FDA's Emergency Use Authorization (EUA) only. Not Detected results do not preclude SARS-CoV-2 infection and should not be used as the sole basis for patient management decisions. Negative results must be combined with clinical observations, patient history, and epidemiological information. Fact sheet for Patients: https://www.fda.gov/media/706859/download Fact sheet for Healthcare Providers: https://www.fda.gov/media/398124/download Performed By: #### D AU, UA #### [address] [place] [address] Prevention Rn: Darci Castle MD Source .NASOPHARYNGEAL SWAB Normal [facility] Comment on above: Performed By: #### D AU, UA #### [address] [place] [address] Prevention Rn: Darci Castle MD Troponinon 06-05-2024 Troponin I.cardiac High sensitivity method [Mass/Vol] 6 ng/L 0 - 9 ng/L [facility] Comment on above: High Sensitivity Troponin values cannot be compared with other Troponin methodologies. Patients with high levels of Biotin oral intake (i.e >5mg/day) may have falsely decreased Troponin levels. Samples collected within 8 hours of biotin intake may require additional information for diagnosis. Troponin, High Sens 6 ng/L Normal 0-9 [facility] Comment on above: Result Comment: High Sensitivity Troponin values cannot be compared with other Troponin methodologies. Patients with high levels of Biotin oral intake (i.e >5mg/day) may have falsely decreased Troponin levels. Samples collected within 8 hours of biotin intake may require additional information for diagnosis. Performed By: #### T ROPI, CBCWD, CP #### [address] [place] [address] Prevention Rn: Darci Castle MD Brain Natri. Peptideon 06-03 Natriuretic peptide B (Bld) [Mass/Vol] 166 pg/mL High 0-125 [facility] Comment on above: Result Comment: An a ge-independent cutoff point of 300 pg/ml has a 98% negative predictive value excluding acute heart failure. Performed By: #### T ROSSY SAVAGE, CP #### [facility] [address] [place] [address] Prevention Rn: Darci Castle MD Brain Natriuretic Peptideon 06-03-2024 Natriuretic peptide B (Bld) [Mass/Vol] 166 pg/mL High 0 - 125 pg/mL [facility] Comment on above: An age-independent c utoff point of 300 pg/ml has a 98% negative predictive value excluding acute heart failure. CBC with Auto Differentialon 06-03-2024 Basophils (Bld) [#/Vol] 0.03 10*3/uL [facility] Basophils/100 WBC (Bld) 0 % 0.0 - 2.0 % [facility] Eosinophils (Bld) [#/Vol] 0.04 10*3/uL Low [facility] Eosinophils/100 WBC (Bld) 0 % 0 - 6 % [facility] Erythrocyte distribution width (RBC) [Ratio] 13.2 % 11.5 - 15.0 % [facility] Hematocrit (Bld) [Volume fraction] 41.5 % 34.0 - 48.0 % [facility] Hemoglobin (Bld) [Mass/Vol] 14.7 g/dL 11.5 - 15.5 g/dL [facility] Immature granulocytes (Bld) [#/Vol] 0.06 10*3/uL [facility] Immature granulocytes/100 WBC (Bld) 1 % 0.0 - 5.0 % [facility] Interpretation and review of laboratory results Abnormal [facility] Lymphocytes/100 WBC (Bld) 17 % Low 20.0 - 42.0 % [facility] Lymphocytes/100 WBC (Bld) 1.95 % [facility] MCH (RBC) [Entitic mass] 31.6 pg 26.0 - 35.0 pg [facility] MCHC (RBC) [Mass/Vol] 35.4 g/dL High 32.0 - 34.5 g/dL [facility] MCV (RBC) [Entitic vol] 89.2 fL 80.0 - 99.9 fL [facility] Monocytes/100 WBC (Bld) 9 % 2.0 - 12.0 % [facility] Monocytes/100 WBC (Bld) 1.05 % High [facility] Neutrophils/100 WBC (Bld) 72 % 43.0 - 80.0 % [facility] Platelet mean volume (Bld) [Entitic vol] 7.9 fL 7.0 - 12.0 fL [facility] Platelets (Bld) [#/Vol] 374 10*3/uL [facility] RBC (Bld) [#/Vol] 4.65 10*6/uL 3.50 - 5.5 0 m/uL [facility] Segmented neutrophils/100 WBC (Bld) 8.1 % High [facility] WBC other (Bld) [#/Vol] 11.2 [facility] CBC with Diffon 06-03-2024 Abs. Basophil 0.03 k/uL Normal 0.00-0.20 [facility] Comment on above: Performed By: #### T ROSSY SAVAGE, CP #### [place] [address] Prevention Rn: Darci Castle MD Abs.Imm.Granulocyte 0.06 k/uL Normal 0.00-0.58 [facility] Comment on above: Performed By: #### T ROSSY SAVAGE, CP #### [place] [address] Prevention Rn: Darci Castle MD Abs.Neutrophil (Seg) 8.10 k/uL High 1.80-7.30 [facility] Comment on above: Performed By: #### T ROSSY SAVAGE, CP #### [place] [address] Prevention Rn: Darci Castle MD Basophils/100 WBC (Bld) 0 % Normal 0.0-2.0 [facility] Comment on above: Performed By: #### ROSSY ALTAMIRANO, CP #### [place] [address] Prevention Rn: Darci Castle MD Eosinophils (Bld) [#/Vol] 0.04 10*3/uL Low 0.05-0.50 [facility] Comment on above: Performed By: #### ROSSY ALTAMIRANO, CP #### [place] [address] Prevention Rn: Darci Castle MD Eosinophils/100 WBC (Bld) 0 % Normal 0-6 [facility] Comment on above: Performed By: #### ROSSY ALTAMIRANO, CP #### [place] [address] Prevention Rn: Darci Castle MD Erythrocyte distribution width (RBC) [Ratio] 13.2 % Normal 11.5-15.0 [facility] Comment on above: Performed By: #### ROSSY ALTAMIRANO, CP #### [place] [address] Prevention Rn: Darci Castle MD Hematocrit (Bld) [Volume fraction] 41.5 % Normal 34.0-48.0 [facility] Comment on above: Performed By: #### ROSSY ALTAMIRANO, CP #### [place] [address] Prevention Rn: Darci Castle MD Hemoglobin (Bld) [Mass/Vol] 14.7 g/dL Normal 11.5-15.5 [facility] Comment on above: Performed By: #### ROSSY ALTAMIRANO, CP #### [address] [place] [address] Prevention Rn: Darci Castle MD Immature granulocytes/100 WBC (Bld) 1 % Normal 0.0-5.0 [facility] Comment on above: Performed By: #### T ROSSY SAVAGE, CP #### [place] [address] Prevention Rn: Darci Castle MD Lymphocytes (Bld) [#/Vol] 1.95 10*3/uL Normal 1.50-4.00 [facility] Comment on above: Performed By: #### T ROSSY SAVAGE, CP #### [place] [address] Prevention Rn: Darci Castle MD Lymphocytes/100 WBC (Bld) 17 % Low 20.0-42.0 [facility] Comment on above: Performed By: #### T ROSSY SAVAGE, CP #### [place] [address] Prevention Rn: Darci Castle MD MCH (RBC) [Entitic mass] 31.6 pg Normal 26.0-35.0 [facility] Comment on above: Performed By: #### T ROSSY SAVAGE, CP #### [place] [address] Prevention Rn: Darci Castle MD MCHC (RBC) [Mass/Vol] 35.4 g/dL High 32.0-34.5 [facility] Comment on above: Performed By: #### T HUSSEIN CBCWD, CP #### [place] [id number] Prevention Rn: Darci Castle MD MCV (RBC) [Entitic vol] 89.2 fL Normal 80.0-99.9 [facility] Comment on above: Performed By: #### T ROSSY SAVAGE, CP #### [address] [address] Prevention Rn: Darci Castle MD Monocytes (Bld) [#/Vol] 1.05 10*3/uL High 0.10-0.95 [facility] Comment on above: Performed By: #### T ROSSY SAVAGE, CP #### [address] [address] Prevention Rn: Darci Castle MD Monocytes/100 WBC (Bld) 9 % Normal 2.0-12.0 [facility] Comment on above: Performed By: #### ROSSY ALTAMIRANO, CP #### [address] [address] Prevention Rn: Darci Castle MD Neutrophil (Seg) 72 % Normal 43.0-80.0 [facility] Comment on above: Performed By: #### ROSSY ALTAMIRANO, CP #### [address] [address] Prevention Rn: Darci Castle MD Platelet mean volume (Bld) [Entitic vol] 7.9 fL Normal 7.0-12.0 [facility] Comment on above: Performed By: #### ROSSY ALTAMIRANO, CP #### [address] [address] Prevention Rn: Darci Castle MD Platelets (Bld) [#/Vol] 374 10*3/uL Normal 130-450 [facility] Comment on above: Performed By: #### ROSSY ALTAMIRANO, CP #### [address] [place], [place] [id number] Prevention Rn: Darci Castle MD RBC (Bld) [#/Vol] 4.65 10*6/uL Normal 3.50-5.50 [facility] Comment on above: Performed By: #### T ROSSY SAVAGE, CP #### [address] [place], [place] [phone] Prevention Rn: Darci Castle MD WBC (Bld) [#/Vol] 11.2 10*3/uL Normal 4.5-11.5 [facility] Comment on above: Performed By: #### T ROSSY SAVAGE, CP #### [address] [id number] Prevention Rn: Darci Castle MD [facility] 06-03-2024 Albumin [Mass/Vol] 4.7 g/dL 3.5 - 5.2 g/dL [facility] ALP [Catalytic activity/Vol] 125 U/L High 35 - 104 U/L [facility] ALT [Catalytic activity/Vol] 16 U/L 0 - 32 U/L [facility] Anion gap [Moles/Vol] 16 mmol/L 7 - 16 mmol/L [facility] AST [Catalytic activity/Vol] 19 U/L 0 - 31 U/L [facility] Bilirubin [Mass/Vol] 0.4 mg/dL 0.0 - 1 .2 mg/dL [facility] Calcium [Mass/Vol] 10.2 mg/dL 8.6 - 10. 2 mg/dL [facility] Chloride [Moles/Vol] 96 mmol/L Low 98 - 10 7 mmol/L [facility] CO2 [Moles/Vol] 25 mmol/L 22 - 29 mmol/L [facility] Creatinine [Mass/Vol] 0.6 mg/dL 0.50 - 1.00 mg/dL [facility] Est, Glom Filt Rate - PINF [facility] Comment on above: These results are not intended for use in patients <18 years of age. eGFR results are calculated without a race factor using the 2020 CKD-EPI equation. Careful clinical correlation is recommended, particularly when comparing to results calculated using previous equations. The CKD-EPI equation is less accurate in patients with extremes of muscle mass, extra-renal metabolism of creatine, excessive creatine ingestion, or following therapy that affects renal tubular secretion. Glucose [Mass/Vol] 88 mg/dL 74 - 99 mg/dL [facility] [employer] Potassium [Moles/Vol] 3 mmol/L Low 3.5 - 5.0 mmol/L [facility] [employer] Protein [Mass/Vol] 7.8 g/dL 6.4 - 8.3 g/dL [facility] [employer] Sodium [Moles/Vol] 137 mmol/L 132 - 146 mmol/L [facility] [employer] Urea nitrogen [Mass/Vol] 13 mg/dL 6 - 20 mg/dL [facility] [employer] COVID-19 & Influenza Comboon 06-03-2024 FLUAV RNA KESHA+probe Ql (Resp) Not detected Not Detected [facility] FLU[facility] RNA KESHA+probe Ql (Resp) Not detected Not Detected [facility] SARS-CoV-2 (COVID-19) RNA KESHA+probe Ql (Resp) Not detected Not Detected [facility] Comment on above: Testing was performed using JOSE G Bri SARS-CoV-2 and Influenza A/B nucleic acid assay. This test is a multiplex Real-Time Reverse Transcriptase Polymerase Chain Reaction (RT-PCR)-based in vitro diagnostic test intended for the qualitative detection of nucleic acids from SARS-CoV-2, influenza A, and influenza B in nasopharyngeal and nasal swab specimens for use under the [facility]'s Emergency Use Authorization (EUA) only. Not Detected results do not preclude SARS-CoV-2 infection and should not be used as the sole basis for patient management decisions. Negative results must be combined with clinical observations, patient history, and epidemiological information. Fact sheet for Patients: https://www.fda.gov/media/442575/download Fact sheet for Healthcare Providers: https://www.fda.gov/media/529481/download Source .NASOP[facility]ARYNGEAL SWAB [facility] [employer] Specimen Description .NASOPHARYNGEAL SWAB [facility] CTA PULMONARY W CONTRASTon 0 06-03-2024 CTA PULMONARY W CONTRAST EXAMINATION: CTA OF THE CHEST 06/03/2024 1:19 pm TECHNIQUE: CTA of the chest was performed after the administration of intravenous contrast. Multiplanar reformatted images are provided for review. MIP images are provided for review. Automated exposure control, iterative reconstruction, and/or weight based adjustment of the mA/kV was utilized to reduce the radiation dose to as low as reasonably achievable. COMPARISON: None. HISTORY: ORDERING SYSTEM PROVIDED HISTORY: elevated ddimer; sternal chest pain TECHNOLOGIST PROVIDED HISTORY: Reason for exam:->elevated ddimer; sternal chest pain Additional Contrast?->1 FINDINGS: Pulmonary Arteries: Pulmonary arteries are adequately opacified for evaluation. No evidence of intraluminal filling defect to suggest pulmonary embolism. Main pulmonary artery is normal in caliber. Mediastinum: No evidence of mediastinal lymphadenopathy. The heart and pericardium demonstrate no acute abnormality. There is no acute abnormality of the thoracic aorta. Lungs/pleura: Lungs without focal consolidation however scattered reticular opacifications in the mid lungs atelectasis versus scarring or bronchiolitis considerations questionable minimal mucous plugging without true consolidation. Right upper lobe groundglass 6mm nodule. No evidence of pleural effusion or pneumothorax. Upper Abdomen: Limited images of the upper abdomen are unremarkable. Soft Tissues/Bones: No acute bone or soft tissue abnormality. IMPRESSION: 1. No evidence of pulmonary embolism. 2. Right upper lobe groundglass 6 mm nodule. 3. No consolidation however scattered opacifications in the mid lungs are partially reticular could represent bronchiolitis versus mixed atelectasis RECOMMENDATIONS: As per Fleischner criteria follow-up as below : Lung-RADS 2 - Benign (v2022) Management: 12 month screening LDCT Interpreted by: Stanford Barger DO Signed by: Stanford Barger DO 06/03/24 Final result Normal [facility] Comment on above: Order Comment: Reaso n for exam:->elevated ddimer; sternal chest painAdditional Contrast?->1 CTA Pulmonary arteries W con trast Maryann 06-03-2024 1. No evidence of pulmonary embolism. 2. Right upper lobe groundglass 6 mm nodule. 3. No consolidation however scattered opacifications in the mid lungs are partially reticular could represent bronchiolitis versus mixed atelectasis RECOMMENDATIONS: As per Fleischner criteria follow-up as below : Lung-RADS 2 - Benign (v2022) Management: 12 month screening LDCT [facility] EXAMINATION: CTA OF THE CHEST 06/03/2024 1:19 pm TECHNIQUE: CTA of the chest was performed after the administration of intravenous contrast. Multiplanar reformatted images are provided for review. MIP images are provided for review. Automated exposure control, iterative reconstruction, and/or weight based adjustment of the mA/kV was utilized to reduce the radiation dose to as low as reasonably achievable. COMPARISON: None. HISTORY: ORDERING SYSTEM PROVIDED HISTORY: elevated ddimer; sternal chest pain TECHNOLOGIST PROVIDED HISTORY: Reason for exam:->elevated ddimer; sternal chest pain Additional Contrast?->1 FINDINGS: Pulmonary Arteries: Pulmonary arteries are adequately opacified for evaluation. No evidence of intraluminal filling defect to suggest pulmonary embolism. Main pulmonary artery is normal in caliber. Mediastinum: No evidence of mediastinal lymphadenopathy. The heart and pericardium demonstrate no acute abnormality. There is no acute abnormality of the thoracic aorta. Lungs/pleura: Lungs without focal consolidation however scattered reticular opacifications in the mid lungs atelectasis versus scarring or bronchiolitis considerations questionable minimal mucous plugging without true consolidation. Right upper lobe groundglass 6mm nodule. No evidence of pleural effusion or pneumothorax. Upper Abdomen: Limited images of the upper abdomen are unremarkable. Soft Tissues/Bones: No acute bone or soft tissue abnormality. [facility] Barger, Stanford, DO - 06/03/2024 EXAMINATION: CTA OF THE CHEST 06/03/2024 1:19 pm TECHNIQUE: CTA of the chest was performed after the administration of intravenous contrast. Multiplanar reformatted images are provided for review. MIP images are provided for review. Automated exposure control, iterative reconstruction, and/or weight based adjustment of the mA/kV was utilized to reduce the radiation dose to as low as reasonably achievable. COMPARISON: None. HISTORY: ORDERING SYSTEM PROVIDED HISTORY: elevated ddimer; sternal chest pain TECHNOLOGIST PROVIDED HISTORY: Reason for exam:->elevated ddimer; sternal chest pain Additional Contrast?->1 FINDINGS: Pulmonary Arteries: Pulmonary arteries are adequately opacified for evaluation. No evidence of intraluminal filling defect to suggest pulmonary embolism. Main pulmonary artery is normal in caliber. Mediastinum: No evidence of mediastinal lymphadenopathy. The heart and pericardium demonstrate no acute abnormality. There is no acute abnormality of the thoracic aorta. Lungs/pleura: Lungs without focal consolidation however scattered reticular opacifications in the mid lungs atelectasis versus scarring or bronchiolitis considerations questionable minimal mucous plugging without true consolidation. Right upper lobe groundglass 6mm nodule. No evidence of pleural effusion or pneumothorax. Upper Abdomen: Limited images of the upper abdomen are unremarkable. Soft Tissues/Bones: No acute bone or soft tissue abnormality. IMPRESSION: 1. No evidence of pulmonary embolism. 2. Right upper lobe groundglass 6 mm nodule. 3. No consolidation however scattered opacifications in the mid lungs are partially reticular could represent bronchiolitis versus mixed atelectasis RECOMMENDATIONS: As per Fleischner criteria follow-up as below : Lung-RADS 2 - Benign (v2022) Management: 12 month screening LDCT [facility] Radiology Study observation (narrative) [facility] CTA Pulmonary arteries W con trast IVOrdered By: Stanford Barger on 06-03-2024 [facility] Work Phone: Comp Metabolic Profon 2024 Albumin [Mass/Vol] 4.7 g/dL Normal 3.5-5.2 [facility] Comment on above: Performed By: #### T ROSSY SAVAGE, CP #### [address] [address] Prevention Rn: Darci Castle MD Alkaline Phos 125 U/L High 35-104 [facility] Comment on above: Performed By: #### ROSSY ALTAMIRANO, CP #### [address] [place] [address] Prevention Rn: Darci Castle MD ALT [Catalytic activity/Vol] 16 U/L Normal 0-32 [facility] Comment on above: Performed By: #### ROSSY ALTAMIRANO, CP #### [address] [place] [address] Prevention Rn: Darci Castle MD Anion gap [Moles/Vol] 16 mmol/L Normal 7-16 [facility] Comment on above: Performed By: #### T ROSSY SAVAGE, CP #### [address] [place] [address] Prevention Rn: Darci Castle MD AST [Catalytic activity/Vol] 19 U/L Normal 0-31 [facility] Comment on above: Performed By: #### T ROSSY SAVAGE, CP #### [address] [address] Prevention Rn: Darci Castle MD Bilirubin [Mass/Vol] 0.4 mg/dL Normal 0.0-1.2 [facility] Comment on above: Performed By: #### T ROSSY SAVAGE, CP #### [address] [place] [address] Prevention Rn: Darci Castle MD Calcium [Mass/Vol] 10.2 mg/dL Normal 8.6-10.2 [facility] Comment on above: Performed By: #### ROSSY ALTAMIRANO, CP #### [address] [place] [address] Prevention Rn: Darci Castle MD Chloride [Moles/Vol] 96 mmol/L Low 98-107 [facility] Comment on above: Performed By: #### T ROSSY SAVAGE, CP #### [address] [place] [address] Prevention Rn: Darci Castle MD CO2 [Moles/Vol] 25 mmol/L Normal 22-29 [facility] Comment on above: Performed By: #### T ROSSY SAVAGE, CP #### [address] [place] [address] Prevention Rn: Darci Castle MD Creatinine [Mass/Vol] 0.6 mg/dL Normal 0.50-1.00 [facility] Comment on above: Performed By: #### ROSSY ALTAMIRANO, CP #### [address] [address] Prevention Rn: Darci Castle MD GFR/1.73 sq M.predicted among non-blacks MDRD (S/P/Bld) [Vol rate/Area] mL/min/{1.73_m2} Normal >60 [facility] Comment on above: Result Comment: These results are not intended for use in patients <18 years of age. eGFR results are calculated without a race factor using the 2020 CKD-EPI equation. Careful clinical correlation is recommended, particularly when comparing to results calculated using previous equations. The CKD-EPI equation is less accurate in patients with extremes of muscle mass, extra-renal metabolism of creatine, excessive creatine ingestion, or following therapy that affects renal tubular secretion. Performed By: #### ROSSY ALTAMIRANO, CP #### [address] [address] Prevention Rn: Darci Castle MD Glucose [Mass/Vol] 88 mg/dL Normal 74-99 [facility] Comment on above: Performed By: #### ROSSY ALTAMIRANO CP #### [address] [address] Prevention Rn: Darci Castle MD Potassium [Moles/Vol] 3.0 mmol/L Low 3.5-5.0 [facility] Comment on above: Performed By: #### ROSSY ALTAMIRANO, CP #### [address] [address] Prevention Rn: Darci Castle MD Protein [Mass/Vol] 7.8 g/dL Normal 6.4-8.3 [facility] Comment on above: Performed By: #### ROSSY ALTAMIRANO, CP #### [address] [place] [address] Prevention Rn: Darci Castle MD Sodium [Moles/Vol] 137 mmol/L Normal 132-146 [facility] Comment on above: Performed By: #### ROSSY ALTAMIRANO, CP #### [address] [place] [address] Prevention Rn: Darci Castle MD Urea nitrogen [Mass/Vol] 13 mg/dL Normal 6-20 [facility] Comment on above: Performed By: #### ROSSY ALTAMIRANO, CP #### [address] [place] [address] Prevention Rn: Darci Castle MD D-Dimer, Quantitativeon 04- D-Dimer, Quant 273 High [facility] Comment on above: D-DIMER Interpretation: <230 ng/mL (D-DU) Indicates low probability for PE/DVT >= 4000/ng/mL (D-DU) This level could suggest the presence of DIC. Clinical correlation may be helpful. Interpretation and review of laboratory results Abnormal [facility] D-Dimer,Quantitativeon 06-03 D-dimer 273 ng/mL DDU High 0-230 [facility] Comment on above: Result Comment: D-DIMER Interpretation: <230 ng/mL (D-DU) Indicates low probability for PE/DVT >= 4000/ng/mL (D-DU) This level could suggest the presence of DIC. Clinical correlation may be helpful. Performed By: #### T ROSSY SAVAGE, CP #### [address] [place] [address] Prevention Rn: Darci Castle MD HCG Screen, Urineon 06-04-19 25 Beta HCG ( test) Ql (U) Negative Normal NEG [facility] Comment on above: Result Comment: Test results should always be evaluated with all available clinical data. If a urine sample is too dilute, it may not contain a advertising sales representative urinary hCG concentration. If a negative result is obtained and is still suspected, a first morning sample should be obtained and tested. Performed By: #### H CGUB #### [facility] [place] [address] Prevention Rn: Liseth Doran MD No Panel Informationon 06-03 Interpretation and review of laboratory results Abnormal [facility] , urineon HCG ( test) Ql (U) Negative NEGATIVE [facility] Comment on above: Test results should always be evaluated with all available clinical data. If a urine sample is too dilute, it may not contain a advertising sales representative urinary hCG concentration. If a negative result is obtained and is still suspected, a first morning sample should be obtained and tested. [facility] SARS-CoV-2 + Flu A/[facility] 06-03 Influenza A, RT-PCR Not detected Normal [facility] Comment on above: Performed By: #### T ROPI #### [address] [address] Prevention Rn: Darci Castle MD Influenza B, RT-PCR Not detected Normal [facility] Comment on above: Performed By: #### T ROPI #### [address] [address] Prevention Rn: Darci Castle MD SARS-CoV-2 (COVID-19) RNA KESHA+probe Ql (Unsp spec) Not detected Normal [facility] Comment on above: Result Comment: Testing was performed using JOSE G Bri SARS-CoV-2 and Influenza A/B nucleic acid assay. This test is a multiplex Real-Time Reverse Transcriptase Polymerase Chain Reaction (RT-PCR)-based in vitro diagnostic test intended for the qualitative detection of nucleic acids from SARS-CoV-2, influenza A, and influenza B in nasopharyngeal and nasal swab specimens for use under the FDA's Emergency Use Authorization (EUA) only. Not Detected results do not preclude SARS-CoV-2 infection and should not be used as the sole basis for patient management decisions. Negative results must be combined with clinical observations, patient history, and epidemiological information. Fact sheet for Patients: https://www.fda.gov/media/097739/download Fact sheet for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 reformatted images are provided for review. Adjustment of mA and/or kV according to patient size was utilized. Automated exposure control, iterative reconstruction, and/or weight based adjustment of the mA/kV was utilized to reduce the radiation dose to as low as reasonably achievable. COMPARISON: None HISTORY: ORDERING SYSTEM PROVIDED HISTORY: s/p reported fall yesterday TECHNOLOGIST PROVIDED HISTORY: Reason for exam:->s/p reported fall yesterday Decision Support Exception - unselect if not a suspected or confirmed emergency medical condition->Emergency Medical Condition (MA) FINDINGS: BONES/ALIGNMENT: There is normal alignment of the spine. The vertebral body heights are maintained. No osseous destructive lesion is seen. Transverse processes appear to be intact. DEGENERATIVE CHANGES: No significant degenerative changes of the lumbar spine. No evidence of high-grade osseous or soft tissue narrowing of the canal. Minimal bulging discs at the lower 2 lumbar levels. SOFT TISSUES/RETROPERITONEUM : No paraspinal mass is seen. IMPRESSION: Unremarkable non-contrast CT of the lumbar spine. Interpreted by: Siddhartha Vazquez MD Signed by: Siddhartha Vazquez MD 05/15/24 Final result Normal [facility] Comment on above: Order Comment: Reaso n for exam:->s/p reported fall yesterdayDecision Support Exception - unselect if not a suspected or confirmed emergency medical condition->Emergency Medical Condition (MA) CT PELVIS WO CONTRASTon 05-02 CT PELVIS WO CONTRAST EXAMINATION: CT OF THE PELVIS WITHOUT CONTRAST05/15/2024 10:09 am TECHNIQUE: CT of the pelvis was performed without the administration of intravenous contrast. Multiplanar reformatted images are provided for review. Adjustment of mA and/or kV according to patient size was utilized. Automated exposure control, iterative reconstruction, and/or weight based adjustment of the mA/kV was utilized to reduce the radiation dose to as low as reasonably achievable. COMPARISON: CT pelvis 03/12/2024. HISTORY: ORDERING SYSTEM PROVIDED HISTORY: s/p fall, reported h/o ankylosing spondylitis TECHNOLOGIST PROVIDED HISTORY: Reason for exam:->s/p fall, reported h/o ankylosing spondylitis Additional Contrast?->None Decision Support Exception - unselect if not a suspected or confirmed emergency medical condition->Emergency Medical Condition (MA) FINDINGS: Lumbar vertebrae are intact with normal height and alignment. There is multilevel very minor lumbar degenerative disc changes manifested as mild endplate spurring. Posterior elements are intact with no significant facet arthritic changes or spondylolysis. Visualized portion of the sacrum is intact. SI joints are normal. There is no evidence of lumbar disc herniation or spinal canal stenosis. IMPRESSION: 1. No acute lumbosacral spine fracture or posttraumatic subluxation. 2. No evidence a lumbar disc herniation, significant degenerative disc changes or spondylolysis. Interpreted by: Dalton Richards MD Signed by: Dalton Richards MD 05/15/24 Final result Normal [facility] Comment on above: Order Comment: Reaso n for exam:->s/p fall, reported h/o ankylosing spondylitisAdditional Contrast?->NoneDecision Support Exception - unselect if not a suspected or confirmed emergency medical condition->Emergency Medical Condition (MA) CT Pelvis WO contraston 05-02 1. No acute lumbosac ral spine fracture or posttraumatic subluxation. 2. No evidence a lumbar disc herniation, significant degenerative disc changes or spondylolysis. [facility] EXAMINATION: CT OF THE PELVIS WITHOUT CONTRAST05/15/2024 10:09 am TECHNIQUE: CT of the pelvis was performed without the administration of intravenous contrast. Multiplanar reformatted images are provided for review. Adjustment of mA and/or kV according to patient size was utilized. Automated exposure control, iterative reconstruction, and/or weight based adjustment of the mA/kV was utilized to reduce the radiation dose to as low as reasonably achievable. COMPARISON: CT pelvis 03/12/2024. HISTORY: ORDERING SYSTEM PROVIDED HISTORY: s/p fall, reported h/o ankylosing spondylitis TECHNOLOGIST PROVIDED HISTORY: Reason for exam:->s/p fall, reported h/o ankylosing spondylitis Additional Contrast?->None Decision Support Exception - unselect if not a suspected or confirmed emergency medical condition->Emergency Medical Condition (MA) FINDINGS: Lumbar vertebrae are intact with normal height and alignment. There is multilevel very minor lumbar degenerative disc changes manifested as mild endplate spurring. Posterior elements are intact with no significant facet arthritic changes or spondylolysis. Visualized portion of the sacrum is intact. SI joints are normal. There is no evidence of lumbar disc herniation or spinal canal stenosis. [facility] Dalton Richards M D - 05/15/2024 EXAMINATION: CT OF THE PELVIS WITHOUT CONTRAST05/15/2024 10:09 am TECHNIQUE: CT of the pelvis was performed without the administration of intravenous contrast. Multiplanar reformatted images are provided for review. Adjustment of mA and/or kV according to patient size was utilized. Automated exposure control, iterative reconstruction, and/or weight based adjustment of the mA/kV was utilized to reduce the radiation dose to as low as reasonably achievable. COMPARISON: CT pelvis 03/12/2024. HISTORY: ORDERING SYSTEM PROVIDED HISTORY: s/p fall, reported h/o ankylosing spondylitis TECHNOLOGIST PROVIDED HISTORY: Reason for exam:->s/p fall, reported h/o ankylosing spondylitis Additional Contrast?->None Decision Support Exception - unselect if not a suspected or confirmed emergency medical condition->Emergency Medical Condition (MA) FINDINGS: Lumbar vertebrae are intact with normal height and alignment. There is multilevel very minor lumbar degenerative disc changes manifested as mild endplate spurring. Posterior elements are intact with no significant facet arthritic changes or spondylolysis. Visualized portion of the sacrum is intact. SI joints are normal. There is no evidence of lumbar disc herniation or spinal canal stenosis. IMPRESSION: 1. No acute lumbosacral spine fracture or posttraumatic subluxation. 2. No evidence a lumbar disc herniation, significant degenerative disc changes or spondylolysis. [facility] Radiology Study observation (narrative) [facility] CT Pelvis WO contrastOrdered By: Dalton Richards on 05-15-2024 [facility] Work Phone: Oneil 05-11-2024 [facility] Telephone ([facility]) DB DOAN ([id number]) 1970 F Date Time Provider Department 05/11/24 CECE STEWART [facility] During your visit today, we recorded the following information about you: Fiona Blum 05/18/2024 11:30 AM Addendum Called the patient to make her aware that the VV appt with Dr. Palacios on 06/12 would have to be in-person or rescheduled for the next available VV. No ans/left msg to call the office back. JOSE Jones Krystle 05/18/2024 11:29 AM Signed Attempted to reach the patient again concerning 06/[address] Palacios. This appointment will have to be in-person or rescheduled for next available VV. No answer/lft msg to call the office back. Will send [facility] message of new appointment. JOSE Jones Allergies As of Date: 05/11/2024 (No Known Allergies) Date Reviewed: 01/20/2024 Reviewed by: Jude Rivas RN - Fully Assessed Reason for Visit: Appointment Conflict [Other] Cmt: 06/[address] Palacios needs to be in-person or rescheduled to vv slot Prescriptions as of 05/18/2024 - DULoxetine (CYMBALTA) 60 mg capsule Take 1 capsule by mouth two times a day. - cyclobenzaprine (FLEXERIL) 10 mg tablet Take 10 mg by mouth at bedtime as needed (muscle spasms). - gabapentin (NEURONTIN) 600 mg tablet Take 600 mg by mouth three times a day. - HYDROXYZINE HCL ORAL Take by mouth once daily as needed. Unknown dosage - TRELEGY ELLIPTA 200-62.5-25 mcg inhalation powder inhale 1 puff once daily - lamoTRIgine (LAMICTAL) 100 mg tablet Take 1 tablet by mouth twice daily. Meds Comments as of 01/20/2024: Also takes Naproxyn and Tylenol. Problem List As Of Date 05/11/2024 Noted Resolved Neck pain, chronic [M54.2, G89.29] 10/28/2014 Arm pain, diffuse [M79.603] 10/28/2014 Bilateral low back pain with left-sided sciatic*10/28/2014 Leg pain, diffuse [M79.606] 10/28/2014 Generalized anxiety disorder [F41.1] 10/28/2014 DDD (degenerative disc disease), lumbar [M51.36*12/03/2018 Sprain or strain of cervical spine [BWO6917] 07/16/2014 Sacroiliitis (HCC) [M46.1] 05/02/2022 Primary osteoarthritis of left hip [M16.12] 01/08/2019 Lymphadenopathy [R59.1] 06/30/2020 Disorder of sacrum [M53.3] 01/08/2019 Centrilobular emphysema (HCC) [J43.2] 03/23/2022 Brachial neuritis or radiculitis [M54.12] 08/14/2011 Anxiety attack [F41.0] 09/16/2014 Syncope and collapse determined by examination *10/22/2023 Fibromyalgia [M79.7] 10/22/2023 PTSD (post-traumatic stress disorder) [F43.10] 10/22/2023 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*10/23/2023 Syncope and collapse [R55] 10/23/2023 Encounter Status:Closed by FIONA BLUM on 05/11/24 Normal [facility] Basic Metabolic Panelon 03-0 Anion gap [Moles/Vol] 7 mmol/L Normal 4-14 [facility] ([place] Comment on above: Performed By: #### 3 00.3525, BMP #### [facility] [address] [place] [address] Calcium [Mass/Vol] 9.6 mg/dL Normal 8.5-10.5 [facility] ([place]) Comment on above: Performed By: #### 3 00.3525, BMP #### [facility] [address] [place] [address] Chloride [Moles/Vol] 105 mmol/L Normal 98-107 [facility] ([place]) Comment on above: Performed By: #### 3 00.3525, BMP #### [facility] [address] [place] [address] CO2 [Moles/Vol] 27 mmol/L Normal 21-31 [facility] ([place]) Comment on above: Performed By: #### 3 00.3525, BMP #### [facility] [address] [place] [address] Creatinine [Moles/Vol] 0.61 mg/dL Normal 0.60-1.20 [facility] ([place] Comment on above: Performed By: #### 3 00.3525, BMP #### [facility] [address] [place] [address] Creatinine and Glomerular filtration rate.predicted panel (S/P/Bld) 125 mL/min Normal >60 [facility] ([place]) Comment on above: Result Comment: [facility] uses the Modification of Diet in Renal Disease (MDRD) equation, along with the patients blood creatinine, age, sex and race to calculate the eGFR. Both values are provided as Lab does not know the race. Performed By: #### 3 00.3524, BMP #### [facility] [address] [place] [address] GFR/1.73 sq M.predicted among non-blacks MDRD (S/P/Bld) [Vol rate/Area] 103 mL/min/{1.73_m2} Normal >60 [facility] ([place]) Comment on above: Performed By: #### 3 , BMP #### [facility] [address] [place] [address] Glucose [Mass/Vol] 76 mg/dL Normal 70-99 [facility] ([place]) Comment on above: Performed By: #### 3 , BMP #### [facility] [address] [place] [address] Potassium [Moles/Vol] 3.5 mmol/L Low 3.6-5.0 [facility] ([place]) Comment on above: Performed By: #### 3 , BMP #### [facility] [address] [place] [address] Sodium [Moles/Vol] 139 mmol/L Normal 135-145 [facility] ([place] Comment on above: Performed By: #### 3 , BMP #### [facility] [address] [place] [address] Urea nitrogen [Mass/Vol] 9 mg/dL Normal 7-25 [facility] ([place] Comment on above: Performed By: #### 3 00.3525, BMP #### [facility] [address] [place] [address] CBC W Auto Differential pane l (Bld)on 05-09-2024 Basophils (Bld) [#/Vol] 0.0 10*3/uL Normal 0.00-0.20 [facility] ([place] Comment on above: Performed By: #### 5 7021-8 #### [facility] [address] [place] [address] Basophils/100 WBC (Bld) 0.2 % Normal 0.0-1.5 [facility] ([place]) Comment on above: Performed By: #### 5 7021-8 #### [facility] [address] [place] [address] Eosinophils (Bld) [#/Vol] 0.1 10*3/uL Normal 0.00-0.33 [facility] ([place]) Comment on above: Performed By: #### 5 7021-8 #### [facility] [address] [place] [address] Eosinophils/100 WBC (Bld) 0.7 % Normal 0.0-3.0 [facility] ([place]) Comment on above: Performed By: #### 5 7021-8 #### [facility] [address] [place] [address] Erythrocyte distribution width (RBC) [Ratio] 14.4 % High 10.9-14.3 [facility] ([place]) Comment on above: Performed By: #### 5 7021-8 #### [facility] [address] [place] [address] Hematocrit (Bld) [Volume fraction] 39.1 % Normal 36.0-44.0 [facility] ([place]) Comment on above: Performed By: #### 5 7021-8 #### [address] [address] Hemoglobin (Bld) [Mass/Vol] 14.0 g/dL Normal 12.0-15.0 [facility] ([place]) Comment on above: Performed By: #### 5 7021-8 #### [address] [address] Lymphocytes Auto (Unsp spec) [#/Vol] 2.1 10*3/uL Normal 1.10-4.80 [facility] ([place]) Comment on above: Performed By: #### 5 7021-8 #### [address] [address] Lymphocytes/100 WBC (Bld) 25.5 % Normal 24.0-44.0 [facility] ([place]) Comment on above: Performed By: #### 5 7021-8 #### [address] [address] MCH (RBC) [Entitic mass] 32.0 pg Normal 28.0-34.0 [facility] ([place]) Comment on above: Performed By: #### 5 7021-8 #### [address] [address] MCHC (RBC) [Mass/Vol] 35.7 g/dL Normal 33.0-37.0 [facility] ([place]) Comment on above: Performed By: #### 5 7021-8 #### [address] [address] MCV (RBC) [Entitic vol] 89.6 fL Normal 80.0-100.0 [facility] ([place]) Comment on above: Performed By: #### 5 7021-8 #### [address] [address] Monocytes (Bld) [#/Vol] 0.5 10*3/uL Normal 0.20-0.70 [facility] ([place]) Comment on above: Performed By: #### 5 7021-8 #### [address] [address] Monocytes/100 WBC (Bld) 5.9 % Normal 3.4-9.0 [facility] ([place]) Comment on above: Performed By: #### 5 7021-8 #### [facility] [address] [place] [address] Neutrophils (Bld) [#/Vol] 5.5 10*3/uL Normal 1.83-8.70 [facility] ([place] Comment on above: Performed By: #### 5 7021-8 #### [facility] [address] [place] [address] Neutrophils/100 WBC (Bld) 67.7 % Normal 40.0-74.0 [facility] ([place]) Comment on above: Performed By: #### 5 7021-8 #### [facility] [address] [place] [address] Platelet mean volume (Bld) [Entitic vol] 6.3 fL Low 7.4-10.4 [facility] ([place]) Comment on above: Performed By: #### 5 7021-8 #### [facility] [address] [place] [address] Platelets (Bld) [#/Vol] 378 10*3/uL Normal 150-450 [facility] ([place]) Comment on above: Performed By: #### 5 7021-8 #### [facility] [address] [place] [address] RBC (Bld) [#/Vol] 4.37 10*6/uL Normal 4.00-4.90 [facility] ([place]) Comment on above: Performed By: #### 5 7021-8 #### [address] [address] WBC (Bld) [#/Vol] 8.2 10*3/uL Normal 4.5-11.0 [facility] ([place]) Comment on above: Performed By: #### 5 7021-8 #### [facility] [address] [place] [address] CT angio abdomen pelv[address] CT angio abdomen pelvis [facility] [address] [place] [address] CT Scan Report Signed Patient: DB DOAN MR#: [id number] 32 : 1970 Acct:[id number] Age/Sex: 54 / F Admit Date: 05/09/24 Loc: ER Attending Dr: Ordering Physician: Siddhartha Siddiqi DO Date of Service: 05/09/24 Procedure(s): CT angio abdomen pelvis Accession Number(s): [id number] cc: Siddhartha Siddiqi DO HISTORY: Celiac artery aneurysm. PHYSICIAN INDICATIONS: TECHNIQUE: High resolution axial CT images of the abdomen/pelvis with three-dimensional reconstruction on separate workstation. Study was performed with intravenous contrast for CT Angiogram. . AEC. k=0.015 mSv/(mGy-cm) FINDINGS: The heart size is normal and lung bases are clear. The liver, spleen, adrenal glands, kidneys and pancreas are unremarkable. Bowel is non-distended. No adenopathy is noted in the retroperitoneum. Bladder is unremarkable. Uterus is present. No adnexal mass or fluid collection. Abdominal aorta is normal in caliber. There is no rupture or dissection. Solitary bilateral renal arteries are present. 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 Right common, internal, and external iliac arteries are unremarkable. Right common femoral artery is unremarkable. Left common, internal, and external iliac arteries are unremarkable. Left common femoral artery is unremarkable. IMPRESSION: CT Angiogram Abdominal Aorta with contrast and high resolution 2-D and 3-D images: 1. 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 2. Normal appearance of the aorta. Dictated By: Mariely Chawla MD DD/ 25 Signed By: Mariely Chawla MD 05/09/241125 [employer] Installer: JEROD 05/09/24 112 Normal [facility] ([place]) CT angio chest PE protocolon 05-09-2024 CT angio chest PE protocol [facility] [address] [place] [address] CT Scan Report Signed Patient: DB DOAN MR#: [id number] 32 : 1970 Acct:[id number] Age/Sex: 54 / F Admit Date: 05/09/24 Loc: ER Attending Dr: Ordering Physician: Siddhartha Siddiqi DO Date of Service: 05/09/24 Procedure(s): CT angio chest PE protocol Accession Number(s): [id number] cc: Siddhartha Siddiqi DO HISTORY: Chest pain. PHYSICIAN INDICATIONS: eval for PE, pleuritic chest pain TECHNIQUE: High resolution axial CT images of the chest with three-dimensional reconstruction on separate workstation. Study was performed with intravenous contrast for CT Angiogram. CT Dose Index: 12.6 mGy. DLP: 954 mGy-cm.. Administered 97.0 ml of mg/ml. AEC. k=0.014 mSv/(mGy-cm) FINDINGS: The pulmonary arteries appear normal in caliber without filling defects to suggest pulmonary emboli. The aorta is normal in caliber without aneurysm, dissection or rupture. The heart size is normal. Chronic bronchiectasis in the right middle lobe and lingula with volume loss. Lung whitfield are otherwise clear. No pleural effusions are present. No lung nodules are identified. The mediastinum is unremarkable with no significant adenopathy identified. The hilar regions are unremarkable. In the upper abdomen, visualized portions of the liver, adrenal glands, kidneys and spleen are unremarkable. IMPRESSION: CT Angiogram Chest and Pulmonary Arteries with contrast and high resolution 2-D and 3-D images: 1. No evidence of pulmonary emboli by CT technique. 2. Chronic bronchiectasis in the right middle lobe and lingula with volume loss. 3. Lung whitfield are clear. Dictated By: Mariely Chawla MD DD/ Signed By: Mariely Chawla MD 05/09/241127 [employer] Installer: JEROD 05/09/24 1128 Normal [facility] ([place]) Troponin I High Sensitivityo n 05-09-2024 Troponin I High Sensitivity 3 pg/mL Normal 0-15 [facility] ([place]) Comment on above: Performed By: #### 3 00.3525, BMP #### [facility] [address] [place] [address] Brain Natri. Peptideon 05-02 Pro-BNP <36 Normal 0-125 [facility] Comment on above: Result Comment: An a ge-independent cutoff point of 300 pg/ml has a 98% negative predictive value excluding acute heart failure. Performed By: #### C P, DDIMER, BNP, CBCWD, TROPI ####[id number] [place] [address] Lab Director: Jewell Tse MD Brain Natriuretic Peptideon 05-02-2024 Natriuretic peptide B (Bld) [Mass/Vol] pg/mL 0 - 125 pg/mL [facility] Comment on above: An age-independent c utoff point of 300 pg/ml has a 98% negative predictive value excluding acute heart failure. CBC with Auto Differentialon 05-02-2024 Basophils (Bld) [#/Vol] 0.01 10*3/uL [facility] Basophils/100 WBC (Bld) 0 % 0.0 - 2.0 % [facility] Eosinophils (Bld) [#/Vol] 0.01 10*3/uL Low [facility] Eosinophils/100 WBC (Bld) 0 % 0 - 6 % [facility] Erythrocyte distribution width (RBC) [Ratio] 13.4 % 11.5 - 15.0 % [facility] Hematocrit (Bld) [Volume fraction] 41.0 % 34.0 - 48.0 % [facility] Hemoglobin (Bld) [Mass/Vol] 13.7 g/dL 11.5 - 15.5 g/dL [facility] Immature granulocytes (Bld) [#/Vol] 0.04 10*3/uL [facility] Immature granulocytes/100 WBC (Bld) 1 % 0.0 - 5.0 % [facility] Interpretation and review of laboratory results Abnormal [facility] Lymphocytes/100 WBC (Bld) 19 % Low 20.0 - 42.0 % [facility] Lymphocytes/100 WBC (Bld) 1.62 % [facility] MCH (RBC) [Entitic mass] 30.8 pg 26.0 - 35.0 pg [facility] MCHC (RBC) [Mass/Vol] 33.4 g/dL 32.0 - 34.5 g/dL [facility] MCV (RBC) [Entitic vol] 92.1 fL 80.0 - 99.9 fL [facility] Monocytes/100 WBC (Bld) 7 % 2.0 - 12.0 % [facility] Monocytes/100 WBC (Bld) 0.55 % [facility] Neutrophils/100 WBC (Bld) 73 % 43.0 - 80.0 % [facility] Platelet mean volume (Bld) [Entitic vol] 7.9 fL 7.0 - 12.0 fL [facility] Platelets (Bld) [#/Vol] 338 10*3/uL [facility] RBC (Bld) [#/Vol] 4.45 10*6/uL 3.50 - 5.5 0 m/uL [facility] Segmented neutrophils/100 WBC (Bld) 6.10 % [facility] WBC other (Bld) [#/Vol] 8.3 [facility] CBC with Diffon 05-02-2024 Abs. Basophil 0.01 k/uL Normal 0.00-0.20 [facility] [facility] Comment on above: Performed By: #### C P, DDIMER, BNP, CBCWD, TROPI ####[place] [address] [facility] Director: Jewell Tse MD Abs.Imm.Granulocyte 0.04 k/uL Normal 0.00-0.58 [facility] Comment on above: Performed By: #### C P, DDIMER, BNP, CBCWD, TROPI ####[place] [address] lab Director: Jewell Tse MD Abs.Neutrophil (Seg) 6.10 k/uL Normal 1.80-7.30 [facility] Comment on above: Performed By: #### C P, DDIMER, BNP, CBCWD, TROPI ####[place] [address] [facility] Director: Jewell Tse MD Basophils/100 WBC (Bld) 0 % Normal 0.0-2.0 [facility] Comment on above: Performed By: #### C P, DDIMER, BNP, CBCWD, TROPI ####[place], [place] [address])[phone] Director: Jewell Tse MD Eosinophils (Bld) [#/Vol] 0.01 10*3/uL Low 0.05-0.50 [facility] Comment on above: Performed By: #### C P, DDIMER, BNP, CBCWD, TROPI ####[place], [place] [address])[phone] Director: Jewell Tse MD Eosinophils/100 WBC (Bld) 0 % Normal 0-6 [facility] Comment on above: Performed By: #### C P, DDIMER, BNP, CBCWD, TROPI ####[place], [place] [address])[phone] Director: Jewell Tse MD Erythrocyte distribution width (RBC) [Ratio] 13.4 % Normal 11.5-15.0 [facility] Comment on above: Performed By: #### C P, DDIMER, BNP, CBCWD, TROPI ####[place], [place] [address])[phone] Director: Jewell Tse MD Hematocrit (Bld) [Volume fraction] 41.0 % Normal 34.0-48.0 [facility] Comment on above: Performed By: #### C P, DDIMER, BNP, CBCWD, TROPI ####[place] [address] Lab Director: Jewell Tse MD Hemoglobin (Bld) [Mass/Vol] 13.7 g/dL Normal 11.5-15.5 [facility] Comment on above: Performed By: #### C P, DDIMER, BNP, CBCWD, TROPI ####[place] [address] Lab Director: Jewell Tse MD Immature granulocytes/100 WBC (Bld) 1 % Normal 0.0-5.0 [facility] Comment on above: Performed By: #### C P, DDIMER, BNP, CBCWD, TROPI ####[place], [place] [address])[phone] Director: Jewell Tse MD Lymphocytes (Bld) [#/Vol] 1.62 10*3/uL Normal 1.50-4.00 [facility] Comment on above: Performed By: #### C P, DDIMER, BNP, CBCWD, TROPI ####[place] [address] [facility] Director: Jewell Tse MD Lymphocytes/100 WBC (Bld) 19 % Low 20.0-42.0 [facility] Comment on above: Performed By: #### C P, DDIMER, BNP, CBCWD, TROPI ####[place] [address] Lab Director: Jewell Tse MD MCH (RBC) [Entitic mass] 30.8 pg Normal 26.0-35.0 [facility] Comment on above: Performed By: #### C P, DDIMER, BNP, CBCWD, TROPI ####[place] [address] Lab Director: Jewlel Tse MD MCHC (RBC) [Mass/Vol] 33.4 g/dL Normal 32.0-34.5 [facility] Comment on above: Performed By: #### C P, DDIMER, BNP, CBCWD, TROPI ####[place], [place] [address])[phone] Director: Jewell Tse MD MCV (RBC) [Entitic vol] 92.1 fL Normal 80.0-99.9 [facility] Comment on above: Performed By: #### C P, DDIMER, BNP, CBCWD, TROPI ####[place], [place] [address])[phone] Director: Jewell Tse MD Monocytes (Bld) [#/Vol] 0.55 10*3/uL Normal 0.10-0.95 [facility] Comment on above: Performed By: #### C P, DDIMER, BNP, CBCWD, TROPI ####[place], [place] [address])[phone] Director: Jewell Tse MD Monocytes/100 WBC (Bld) 7 % Normal 2.0-12.0 [facility] Comment on above: Performed By: #### C P, DDIMER, BNP, CBCWD, TROPI ####[place], [place] [address])[phone] Director: Jewell Tse MD Neutrophil (Seg) 73 % Normal 43.0-80.0 [facility] Comment on above: Performed By: #### C P, DDIMER, BNP, CBCWD, TROPI ####[place], [place] [address])[phone] Director: Jewell Tse MD Platelet mean volume (Bld) [Entitic vol] 7.9 fL Normal 7.0-12.0 [facility] Comment on above: Performed By: #### C P, DDIMER, BNP, CBCWD, TROPI ####[place], [place] [address])[phone] Director: Jewell Tse MD Platelets (Bld) [#/Vol] 338 10*3/uL Normal 130-450 [facility] Comment on above: Performed By: #### C P, DDIMER, BNP, CBCWD, TROPI ####[address] [address] Lab Director: Jewell Tse MD RBC (Bld) [#/Vol] 4.45 10*6/uL Normal 3.50-5.50 [facility] Comment on above: Performed By: #### C P, DDIMER, BNP, CBCWD, TROPI ####[place] [address] lab Director: Jewell Tse MD WBC (Bld) [#/Vol] 8.3 10*3/uL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 (Bazett) 472 ms [facility] Work Phone: R [place] 47 degrees [facility] Work Phone: T [place] 64 degrees [facility] Work Phone: Ventricular Rate 83 BPM [facility] [facility] Work Phone: [facility] Work Phone: EKG 12 Leadon 03-09-2024 Normal sinus rhythm Normal ECG When compared with ECG of 25-APR-2023 11:23, No significant change was found Confirmed by Siddhartha Berman ([id number]) on 03/09/2024 11:12:49 AM [facility] Siddhartha Naik MD - 03/09/2024 Normal sinus rhythm Normal ECG When compared with ECG of 25-APR-2023 11:23, No significant change was found Confirmed by Siddhartha Berman ([id number]) on 03/09/2024 11:12:49 AM [facility] Thyroid Stim. Horm.on 2024 Thyroid Stim. Horm. 0.80 uIU/mL Normal 0.27-4.20 [facility] Comment on above: Performed By: #### D , UA #### [facility] [address] [place] [address] Prevention Rn: Darci Castle MD CTA HEAD W CONTRASTon 2024 CTA HEAD W CONTRAST EXAMINATION: CTA OF THE HEAD WITH CONTRAST 03/07/2024 10:12 pm: TECHNIQUE: CTA of the head/brain was performed with the administration of intravenous contrast. Multiplanar reformatted images are provided for review. MIP images are provided for review. Automated exposure control, iterative reconstruction, and/or weight based adjustment of the mA/kV was utilized to reduce the radiation dose to as low as reasonably achievable. COMPARISON: None. HISTORY: ORDERING SYSTEM PROVIDED HISTORY: Dizzy headache off balance double vision TECHNOLOGIST PROVIDED HISTORY: Reason for exam:->Dizzy headache off balance double vision Has a code stroke or stroke alert been called?-> What reading provider will be dictating this exam?->CRC FINDINGS: ANTERIOR CIRCULATION: No significant stenosis of the intracranial internal carotid, anterior cerebral, or middle cerebral arteries. No aneurysm. POSTERIOR CIRCULATION: No significant stenosis of the vertebral, basilar, or posterior cerebral arteries. No aneurysm. OTHER: No dural venous sinus thrombosis on this non-dedicated study. BRAIN: No mass effect or midline shift. No extra-axial fluid collection. The boogie-white differentiation is maintained. IMPRESSION: Unremarkable CTA of the head. Interpreted by: Yovanny Addison MD Signed by: Yovanny Addison MD 03/08/24 Final result Normal [facility] Comment on above: Order Comment: Reaso n for exam:->Dizzy headache off balance double visionHas a code stroke or stroke alert been called?->What reading provider will be dictating this exam?->CRC CTA Head vessels W contrast Maryann 03-08-2024 Unremarkable CTA of the head. [facility] EXAMINATION: CTA OF THE HEAD WITH CONTRAST 03/07/2024 10:12 pm: TECHNIQUE: CTA of the head/brain was performed with the administration of intravenous contrast. Multiplanar reformatted images are provided for review. MIP images are provided for review. Automated exposure control, iterative reconstruction, and/or weight based adjustment of the mA/kV was utilized to reduce the radiation dose to as low as reasonably achievable. COMPARISON: None. HISTORY: ORDERING SYSTEM PROVIDED HISTORY: Dizzy headache off balance double vision TECHNOLOGIST PROVIDED HISTORY: Reason for exam:->Dizzy headache off balance double vision Has a code stroke or stroke alert been called?-> What reading provider will be dictating this exam?->CRC FINDINGS: ANTERIOR CIRCULATION: No significant stenosis of the intracranial internal carotid, anterior cerebral, or middle cerebral arteries. No aneurysm. POSTERIOR CIRCULATION: No significant stenosis of the vertebral, basilar, or posterior cerebral arteries. No aneurysm. OTHER: No dural venous sinus thrombosis on this non-dedicated study. BRAIN: No mass effect or midline shift. No extra-axial fluid collection. The boogie-white differentiation is maintained. [facility] Yovanny Addison MD - 03/08/2024 EXAMINATION: CTA OF THE HEAD WITH CONTRAST 03/07/2024 10:12 pm: TECHNIQUE: CTA of the head/brain was performed with the administration of intravenous contrast. Multiplanar reformatted images are provided for review. MIP images are provided for review. Automated exposure control, iterative reconstruction, and/or weight based adjustment of the mA/kV was utilized to reduce the radiation dose to as low as reasonably achievable. COMPARISON: None. HISTORY: ORDERING SYSTEM PROVIDED HISTORY: Dizzy headache off balance double vision TECHNOLOGIST PROVIDED HISTORY: Reason for exam:->Dizzy headache off balance double vision Has a code stroke or stroke alert been called?-> What reading provider will be dictating this exam?->CRC FINDINGS: ANTERIOR CIRCULATION: No significant stenosis of the intracranial internal carotid, anterior cerebral, or middle cerebral arteries. No aneurysm. POSTERIOR CIRCULATION: No significant stenosis of the vertebral, basilar, or posterior cerebral arteries. No aneurysm. OTHER: No dural venous sinus thrombosis on this non-dedicated study. BRAIN: No mass effect or midline shift. No extra-axial fluid collection. The boogie-white differentiation is maintained. IMPRESSION: Unremarkable CTA of the head. [facility] CTA Head vessels W contrast IVOrdered By: Yovanny Addison on 03-08-2024 [facility] Work Phone: CTA NECK W CONTRASTon 2024 CTA NECK W CONTRAST EXAMINATION: CTA OF THE NECK 03/07/2024 10:12 pm TECHNIQUE: CTA of the neck was performed with the administration of intravenous contrast. Multiplanar reformatted images are provided for review. MIP images are provided for review. Stenosis of the internal carotid arteries measured using NASCET criteria. Automated exposure control, iterative reconstruction, and/or weight based adjustment of the mA/kV was utilized to reduce the radiation dose to as low as reasonably achievable. COMPARISON: None. HISTORY: ORDERING SYSTEM PROVIDED HISTORY: Dizzy double vision off balance TECHNOLOGIST PROVIDED HISTORY: Reason for exam:->Dizzy double vision off balance Has a code stroke or stroke alert been called?-> What reading provider will be dictating this exam?->CRC FINDINGS: AORTIC ARCH/ARCH VESSELS: No dissection or arterial injury. No significant stenosis of the brachiocephalic or subclavian arteries. CAROTID ARTERIES: No dissection, arterial injury, or hemodynamically significant stenosis by NASCET criteria. VERTEBRAL ARTERIES: No dissection, arterial injury, or significant stenosis. SOFT TISSUES: The lung apices are clear. No cervical or superior mediastinal lymphadenopathy. The larynx and pharynx are unremarkable. No acute abnormality of the salivary and thyroid glands. BONES: No acute osseous abnormality. IMPRESSION: Unremarkable CTA of the neck. Interpreted by: Yovanny Addison MD Signed by: Yovanny Addison MD 03/08/24 Final result Normal [facility] Comment on above: Order Comment: Reaso n for exam:->Dizzy double vision off balanceHas a code stroke or stroke alert been called?->What reading provider will be dictating this exam?->CRC CTA Neck vessels W contrast Maryann 03-08-2024 Unremarkable CTA of the neck. [facility] EXAMINATION: CTA OF THE NECK 03/07/2024 10:12 pm TECHNIQUE: CTA of the neck was performed with the administration of intravenous contrast. Multiplanar reformatted images are provided for review. MIP images are provided for review. Stenosis of the internal carotid arteries measured using NASCET criteria. Automated exposure control, iterative reconstruction, and/or weight based adjustment of the mA/kV was utilized to reduce the radiation dose to as low as reasonably achievable. COMPARISON: None. HISTORY: ORDERING SYSTEM PROVIDED HISTORY: Dizzy double vision off balance TECHNOLOGIST PROVIDED HISTORY: Reason for exam:->Dizzy double vision off balance Has a code stroke or stroke alert been called?-> What reading provider will be dictating this exam?->CRC FINDINGS: AORTIC ARCH/ARCH VESSELS: No dissection or arterial injury. No significant stenosis of the brachiocephalic or subclavian arteries. CAROTID ARTERIES: No dissection, arterial injury, or hemodynamically significant stenosis by NASCET criteria. VERTEBRAL ARTERIES: No dissection, arterial injury, or significant stenosis. SOFT TISSUES: The lung apices are clear. No cervical or superior mediastinal lymphadenopathy. The larynx and pharynx are unremarkable. No acute abnormality of the salivary and thyroid glands. BONES: No acute osseous abnormality. [facility] Yovanny Addison MD - 03/08/2024 EXAMINATION: CTA OF THE NECK 03/07/2024 10:12 pm TECHNIQUE: CTA of the neck was performed with the administration of intravenous contrast. Multiplanar reformatted images are provided for review. MIP images are provided for review. Stenosis of the internal carotid arteries measured using NASCET criteria. Automated exposure control, iterative reconstruction, and/or weight based adjustment of the mA/kV was utilized to reduce the radiation dose to as low as reasonably achievable. COMPARISON: None. HISTORY: ORDERING SYSTEM PROVIDED HISTORY: [email or web address] double vision off balance TECHNOLOGIST PROVIDED HISTORY: Reason for exam:->Dizzy double vision off balance Has a code stroke or stroke alert been called?-> What reading provider will be dictating this exam?->CRC FINDINGS: AORTIC ARCH/ARCH VESSELS: No dissection or arterial injury. No significant stenosis of the brachiocephalic or subclavian arteries. CAROTID ARTERIES: No dissection, arterial injury, or hemodynamically significant stenosis by NASCET criteria. VERTEBRAL ARTERIES: No dissection, arterial injury, or significant stenosis. SOFT TISSUES: The lung apices are clear. No cervical or superior mediastinal lymphadenopathy. The larynx and pharynx are unremarkable. No acute abnormality of the salivary and thyroid glands. BONES: No acute osseous abnormality. IMPRESSION: Unremarkable CTA of the neck. [facility], Abuse, Uron 2024 Amphetamine(s),Ur Negative Normal NEG [facility] Comment on above: Result Comment: Cuto ff: 1000 ng/mL Performed By: #### D AU, UA #### [place] [facility] [address] [place] [address] Prevention Rn: Darci Castle MD Barbiturate(s),Ur Negative Normal NEG [facility] Comment on above: Result Comment: Cuto ff: 200 ng/ml Performed By: #### D AU, UA #### [facility] [address] [place] [address] Prevention Rn: Darci Castle MD Benzodiazepine(s) Negative Normal NEG [facility] Comment on above: Result Comment: Cuto ff: 200 ng/ml Performed By: #### D AU, UA #### [facility] [address] [place] [address] Prevention Rn: Darci Castle MD Buprenorphrine, Ur Positive Abnormal NEG [facility] Comment on above: Result Comment: Cuto ff: 5 ng/ml Performed By: #### D AU, UA #### [facility] [address] [place] [address] Prevention Rn: Darci Castle MD Cannabinoid(s),Ur Negative Normal NEG [facility] Comment on above: Result Comment: Cuto ff: 50 ng/ml Performed By: #### D AU, UA #### [facility] [address] [place] [address] Prevention Rn: Darci Castle MD Cocaine Metabolite Negative Normal NEG [facility] Comment on above: Result Comment: Cuto ff: 300 ng/ml Performed By: #### D AU, UA #### [facility] [address] [place] [address] Prevention Rn: Darci Castle MD Fentanyl, Urine Negative Normal NEG [facility] Comment on above: Result Comment: Cuto ff: 1.0 ng/ml Performed By: #### D AU, UA #### [address] [place] [address] Prevention Rn: Darci Castle MD Interpretive Info These drug screen results are for medical purposes only and should not be Normal [facility] Comment on above: Result Comment: cons idered definitive or confirmed. The drug methodology concentration value must be greater than or equal to the cutoff to be reported as positive. Confirmtory testing orders and/or interpretive sceening questions can be directed to toxicology at [phone]. The absence of expected drug(s) and/or metabolite(s) may be due to inappropriate timing of specimen collection relative to drug administration, poor drug absorption, diluted/adulterated urine, or limitations of screening methodology. Performed By: #### D LORI, UA #### [address] [place] [address] Prevention Rn: Darci Castle MD Methadone Ql (U) Negative Normal NEG [facility] Comment on above: Result Comment: Cuto ff: 300 ng/ml Performed By: #### Goldie AU, UA #### [address] [place] [address] Prevention Rn: Darci Castle MD Opiate(s), Ur Negative Normal NEG [facility] Comment on above: Result Comment: Cuto ff: 300 ng/ml Note: The Opiate screen is not intended to detect Oxycodone. Performed By: #### D AU, UA #### [address] [place] [address] Prevention Rn: Darci Castle MD Oxycodone, Urine Negative Normal NEG [facility] Comment on above: Result Comment: Cuto ff: 100 ng/ml Performed By: #### D AU, UA #### [facility] [address] [facility] [place] [address] Prevention Rn: Darci Castle MD Phencyclidine, Ur Negative Normal NEG [facility] Comment on above: Result Comment: Cuto ff: 25 ng/ml Performed By: #### D AU, UA #### [facility] [address] [place] [place] [address] Prevention Rn: Darci Castle MD MR Brain WO and W contrast I Von 03-08-2024 Radiology Study observation (narrative) [facility] MR Orbit and Face and Neck W O and W contrast Maryann 03-08-2024 Radiology Study observation (narrative) [facility] MRI BRAIN W WO CONTRASTon MRI BRAIN W WO CONTRAST EXAMINATION: MRI OF THE BRAIN WITHOUT AND WITH CONTRAST; MRI OF THE BRAIN AND MRI OF THE ORBITS WITH AND WITHOUT CONTRAST 03/08/2024 11:23 am TECHNIQUE: Multiplanar multisequence MRI of the head/brain was performed without and with the administration of intravenous contrast.; Multiplanar multisequence MRI of the brain and MRI of the orbits was performed with and without intravenous contrast. COMPARISON: Head CT dated 03/07/2024 and MRI brain dated 11/06/2014 HISTORY: ORDERING SYSTEM PROVIDED HISTORY: diplopia TECHNOLOGIST PROVIDED HISTORY: Reason for exam:->diplopia FINDINGS: MRI BRAIN: INTRACRANIAL STRUCTURES/VENTRICLES: Many of the images are degraded by motion artifact. There is no acute infarct. A few tiny stable foci of T2/FLAIR hyperintensity is seen in the bifrontal deep white matter, a that may be related to minimal chronic white matter ischemic disease. These are of doubtful clinical significance. No mass effect or midline shift. No evidence of an acute intracranial hemorrhage. The ventricles and sulci are normal in size and configuration. The sellar/suprasellar regions show no acute process. There is an isointense mass in the pituitary that shows slightly heterogeneous enhancement with contrast measuring 1.5 x 1.2 x 0.9 cm. This extends into the suprasellar cistern in the midline. The infundibulum is in the midline. The superior margin of the mass extends to within about 2 mm of the optic chiasm but there is no evidence of compression of the chiasm. The lesion most likely represents appear to tree adenoma. The normal signal voids within the major intracranial vessels appear maintained. Otherwise, no abnormal focus of enhancement is seen within the brain. SINUSES: The visualized paranasal sinuses and mastoid air cells are well aerated. BONES/SOFT TISSUES: The bone marrow signal intensity appears normal. The soft tissues demonstrate no acute abnormality. MRI ORBITS: The visualized portion of the orbits demonstrate no acute abnormality. The ocular globes, optic nerves and extraocular muscles appear symmetric and within normal limits. The bilateral lacrimal glands are symmetric and enhance normally. There is no evidence of an intra orbital or retro-orbital mass or enhancing lesion. The optic chiasm appears within normal limits with no evidence of compression by the pituitary mass described above. IMPRESSION: 1. No evidence of acute intracranial abnormality. 2. 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 This extends into the suprasellar cistern but there is no evidence of compression of the optic chiasm. Clinical correlation is suggested. 3. Otherwise, unremarkable MRI of the orbits. Interpreted by: Chandra Betancourt MD Signed by: Chandra Betancourt MD 03/08/24 Final result Normal [facility] Comment on above: Order Comment: Reaso n for exam:->diplopia MRI ORBITS FACE NECK W WO CO NTRASTon 03-08-2024 MRI ORBITS FACE NECK W WO CONTRAST EXAMINATION: MRI OF THE BRAIN WITHOUT AND WITH CONTRAST; MRI OF THE BRAIN AND MRI OF THE ORBITS WITH AND WITHOUT CONTRAST 03/08/2024 11:23 am TECHNIQUE: Multiplanar multisequence MRI of the head/brain was performed without and with the administration of intravenous contrast.; Multiplanar multisequence MRI of the brain and MRI of the orbits was performed with and without intravenous contrast. COMPARISON: Head CT dated 03/07/2024 and MRI brain dated 11/06/2014 HISTORY: ORDERING SYSTEM PROVIDED HISTORY: diplopia TECHNOLOGIST PROVIDED HISTORY: Reason for exam:->diplopia FINDINGS: MRI BRAIN: INTRACRANIAL STRUCTURES/VENTRICLES: Many of the images are degraded by motion artifact. There is no acute infarct. A few tiny stable foci of T2/FLAIR hyperintensity is seen in the bifrontal deep white matter, a that may be related to minimal chronic white matter ischemic disease. These are of doubtful clinical significance. No mass effect or midline shift. No evidence of an acute intracranial hemorrhage. The ventricles and sulci are normal in size and configuration. The sellar/suprasellar regions show no acute process. There is an isointense mass in the pituitary that shows slightly heterogeneous enhancement with contrast measuring 1.5 x 1.2 x 0.9 cm. This extends into the suprasellar cistern in the midline. The infundibulum is in the midline. The superior margin of the mass extends to within about 2 mm of the optic chiasm but there is no evidence of compression of the chiasm. The lesion most likely represents appear to tree adenoma. The normal signal voids within the major intracranial vessels appear maintained. Otherwise, no abnormal focus of enhancement is seen within the brain. SINUSES: The visualized paranasal sinuses and mastoid air cells are well aerated. BONES/SOFT TISSUES: The bone marrow signal intensity appears normal. The soft tissues demonstrate no acute abnormality. MRI ORBITS: The visualized portion of the orbits demonstrate no acute abnormality. The ocular globes, optic nerves and extraocular muscles appear symmetric and within normal limits. The bilateral lacrimal glands are symmetric and enhance normally. There is no evidence of an intra orbital or retro-orbital mass or enhancing lesion. The optic chiasm appears within normal limits with no evidence of compression by the pituitary mass described above. IMPRESSION: 1. No evidence of acute intracranial abnormality. 2. 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 This extends into the suprasellar cistern but there is no evidence of compression of the optic chiasm. Clinical correlation is suggested. 3. Otherwise, unremarkable MRI of the orbits. Interpreted by: Chandra Betancourt MD Signed by: Chandra Betancourt MD 03/08/24 Final result Normal [facility] Comment on above: Order Comment: Reaso n for exam:->diplopia No Panel Informationon 03-08 1. No evidence of ac [place] intracranial abnormality. 2. 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 This extends into the suprasellar cistern but there is no evidence of compression of the optic chiasm. Clinical correlation is suggested. 3. Otherwise, unremarkable MRI of the orbits. [facility] EXAMINATION: MRI OF THE BRAIN WITHOUT AND WITH CONTRAST; MRI OF THE BRAIN AND MRI OF THE ORBITS WITH AND WITHOUT CONTRAST 03/08/2024 11:23 am TECHNIQUE: Multiplanar multisequence MRI of the head/brain was performed without and with the administration of intravenous contrast.; Multiplanar multisequence MRI of the brain and MRI of the orbits was performed with and without intravenous contrast. COMPARISON: Head CT dated 03/07/2024 and MRI brain dated 11/06/2014 HISTORY: ORDERING SYSTEM PROVIDED HISTORY: diplopia TECHNOLOGIST PROVIDED HISTORY: Reason for exam:->diplopia FINDINGS: MRI BRAIN: INTRACRANIAL STRUCTURES/VENTRICLES: Many of the images are degraded by motion artifact. There is no acute infarct. A few tiny stable foci of T2/FLAIR hyperintensity is seen in the bifrontal deep white matter, a that may be related to minimal chronic white matter ischemic disease. These are of doubtful clinical significance. No mass effect or midline shift. No evidence of an acute intracranial hemorrhage. The ventricles and sulci are normal in size and configuration. The sellar/suprasellar regions show no acute process. There is an isointense mass in the pituitary that shows slightly heterogeneous enhancement with contrast measuring 1.5 x 1.2 x 0.9 cm. This extends into the suprasellar cistern in the midline. The infundibulum is in the midline. The superior margin of the mass extends to within about 2 mm of the optic chiasm but there is no evidence of compression of the chiasm. The lesion most likely represents appear to tree adenoma. The normal signal voids within the major intracranial vessels appear maintained. Otherwise, no abnormal focus of enhancement is seen within the brain. SINUSES: The visualized paranasal sinuses and mastoid air cells are well aerated. BONES/SOFT TISSUES: The bone marrow signal intensity appears normal. The soft tissues demonstrate no acute abnormality. MRI ORBITS: The visualized portion of the orbits demonstrate no acute abnormality. The ocular globes, optic nerves and extraocular muscles appear symmetric and within normal limits. The bilateral lacrimal glands are symmetric and enhance normally. There is no evidence of an intra orbital or retro-orbital mass or enhancing lesion. The optic chiasm appears within normal limits with no evidence of compression by the pituitary mass described above. [facility] Chandra Betancourt MD - 03/08/2024 EXAMINATION: MRI OF THE BRAIN WITHOUT AND WITH CONTRAST; MRI OF THE BRAIN AND MRI OF THE ORBITS WITH AND WITHOUT CONTRAST 03/08/2024 11:23 am TECHNIQUE: Multiplanar multisequence MRI of the head/brain was performed without and with the administration of intravenous contrast.; Multiplanar multisequence MRI of the brain and MRI of the orbits was performed with and without intravenous contrast. COMPARISON: Head CT dated 03/07/2024 and MRI brain dated 11/06/2014 HISTORY: ORDERING SYSTEM PROVIDED HISTORY: diplopia TECHNOLOGIST PROVIDED HISTORY: Reason for exam:->diplopia FINDINGS: MRI BRAIN: INTRACRANIAL STRUCTURES/VENTRICLES: Many of the images are degraded by motion artifact. There is no acute infarct. A few tiny stable foci of T2/FLAIR hyperintensity is seen in the bifrontal deep white matter, a that may be related to minimal chronic white matter ischemic disease. These are of doubtful clinical significance. No mass effect or midline shift. No evidence of an acute intracranial hemorrhage. The ventricles and sulci are normal in size and configuration. The sellar/suprasellar regions show no acute process. There is an isointense mass in the pituitary that shows slightly heterogeneous enhancement with contrast measuring 1.5 x 1.2 x 0.9 cm. This extends into the suprasellar cistern in the midline. The infundibulum is in the midline. The superior margin of the mass extends to within about 2 mm of the optic chiasm but there is no evidence of compression of the chiasm. The lesion most likely represents appear to tree adenoma. The normal signal voids within the major intracranial vessels appear maintained. Otherwise, no abnormal focus of enhancement is seen within the brain. SINUSES: The visualized paranasal sinuses and mastoid air cells are well aerated. BONES/SOFT TISSUES: The bone marrow signal intensity appears normal. The soft tissues demonstrate no acute abnormality. MRI ORBITS: The visualized portion of the orbits demonstrate no acute abnormality. The ocular globes, optic nerves and extraocular muscles appear symmetric and within normal limits. The bilateral lacrimal glands are symmetric and enhance normally. There is no evidence of an intra orbital or retro-orbital mass or enhancing lesion. The optic chiasm appears within normal limits with no evidence of compression by the pituitary mass described above. IMPRESSION: 1. No evidence of acute intracranial abnormality. 2. 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 This extends into the suprasellar cistern but there is no evidence of compression of the optic chiasm. Clinical correlation is suggested. 3. Otherwise, unremarkable MRI of the orbits. [facility] No Panel InformationOrdered By: Chandra Betancourt on 03-08-2024 [facility] Work Phone: Troponinon 03-08-2024 Interpretation and review of laboratory results Abnormal [facility] Troponin I.cardiac High sensitivity method [Mass/Vol] 10 ng/L High 0 - 9 ng/L [facility] Comment on above: High Sensitivity Troponin values cannot be compared with other Troponin methodologies. Patients with high levels of Biotin oral intake (i.e >5mg/day) may have falsely decreased Troponin levels. Samples collected within 8 hours of biotin intake may require additional information for diagnosis. [facility] Troponin, High Sens 10 ng/L High 0-9 [facility] Comment on above: Result Comment: High Sensitivity Troponin values cannot be compared with other Troponin methodologies. Patients with high levels of Biotin oral intake (i.e >5mg/day) may have falsely decreased Troponin levels. Samples collected within 8 hours of biotin intake may require additional information for diagnosis. Performed By: #### T JOSH #### [facility] [address] [id number] Prevention Rn: Darci Castle MD URINE DRUG SCREENon 03-08-19 25 Amphetamines Ql (U) Negative NEGATIVE [facility] Comment on above: Cutoff: 1000 ng/mL Barbiturates Screen Ql (U) Negative NEGATIVE [facility] Comment on above: Cutoff: 200 ng/ml Benzodiazepines Ql (U) Negative NEGATIVE [facility] Comment on above: Cutoff: 200 ng/ml Buprenorphine Ql (U) Positive Abnormal NEGATIVE [facility] Comment on above: Cutoff: 5 ng/ml Cannabinoids Screen Ql (U) Negative NEGATIVE [facility] Comment on above: Cutoff: 50 ng/ml Cocaine Ql (U) Negative NEGATIVE [facility] Comment on above: Cutoff: 300 ng/ml fentaNYL Ql (U) Negative NEGATIVE [facility] Comment on above: Cutoff: 1.0 ng/ml Interpretation and review of laboratory results Abnormal [facility] Methadone Ql (U) Negative NEGATIVE [facility] Comment on above: Cutoff: 300 ng/ml Opiates Screen Ql (U) Negative NEGATIVE [facility] Comment on above: Cutoff: 300 ng/ml Note: The Opiate screen is not intended to detect Oxycodone. oxyCODONE Ql (U) Negative NEGATIVE [facility] Comment on above: Cutoff: 100 ng/ml Phencyclidine Ql (U) Negative NEGATIVE [facility] Comment on above: Cutoff: 25 ng/ml Test Information These drug screen results are for medical purposes only and should not be considered definitive or confirmed. [facility] Comment on above: The drug methodology concentration value must be greater than or equal to the cutoff to be reported as positive. Confirmtory testing orders and/or interpretive sceening questions can be directed to toxicology at [phone]. The absence of expected drug(s) and/or metabolite(s) may be due to inappropriate timing of specimen collection relative to drug administration, poor drug absorption, diluted/adulterated urine, or limitations of screening methodology. [facility] Bilirubin Ql (U) Negative NEGATIVE [facility] Clarity (U) Clear Clear [facility] Color (U) Yellow Yellow [facility] Comment Microscopic exam not performed based on chemical results unless requested in original order. [facility] Glucose Test strip (U) [Mass/Vol] Negative NEGATIVE mg/dL [facility] Hemoglobin Auto test strip Ql (U) Negative NEGATIVE [facility] Interpretation and review of laboratory results Abnormal [facility] Ketones (U) [Mass/Vol] Negative NEGATIVE mg/dL [facility] Leukocyte esterase Test strip Ql (U) Negative NEGATIVE [facility] Nitrite Ql (U) Negative NEGATIVE [facility] pH (U) 6.5 [pH] 5.0 - 9.0 [facility] Protein (U) [Mass/Vol] Negative NEGATIVE mg/dL [facility] Specific gravity (U) [Rel density] Low 1.005 - 1.030 [facility] Urobilinogen Qn (U) 0.2 {Leonie'U}/dL 0. 0 - 1.0 EU/dL [facility] Urinalysis, Routineon 2024 Bilirubin, SemiQt,Ur Negative Normal NEG [facility] Comment on above: Performed By: #### D AU, UA #### [address] [place] [address] Prevention Rn: Darci Castle MD Blood, Urine Negative Normal NEG [facility] Comment on above: Performed By: #### Goldie SANDOVAL, UA #### [address] [place] [address] Prevention Rn: Darci Castle MD Clarity (U) Clear Normal CLEAR [facility] Comment on above: Performed By: #### Goldie SANDOVAL, UA #### [address] [place] [address] Prevention Rn: Darci Castel MD Color (U) Yellow Normal YEL [facility] Comment on above: Performed By: #### Goldie SANDOVAL, UA #### [address] [place] [address] Prevention Rn: Darci Castle MD Comment Microscopic exam not performed based on chemical results unless requested in Normal [facility] Comment on above: Result Comment: orig inal order. Performed By: #### D AU, UA #### [address] [place] [address] Prevention Rn: Darci Castle MD Glucose Ql (U) Negative Normal NEG [facility] Comment on above: Performed By: #### D AU, UA #### [place] [address] [place] [address] Prevention Rn: Darci Castle MD Ketones Ql (U) Negative Normal NEG [facility] Comment on above: Performed By: #### D AU, UA #### [place] [address] [place] [address] Prevention Rn: Darci Castle MD Leukocyte esterase Test strip Ql (U) Negative Normal NEG [facility] Comment on above: Performed By: #### D AU, UA #### [address] [place] [address] Prevention Rn: Darci Castle MD Nitrite,Ur Negative Normal NEG [facility] Comment on above: Performed By: #### D AU, UA #### [place] [address] [place] [address] Prevention Rn: Darci Castle MD PH,Ur 6.5 Normal 5.0-9.0 [facility] Comment on above: Performed By: #### D AU, UA #### [place] [address] [place] [address] Prevention Rn: Darci Castle MD Protein Ql (U) Negative Normal NEG [facility] Comment on above: Performed By: #### D AU, UA #### [place] [address] [place] [address] Prevention Rn: Darci Castle MD Spec. [place],Ur <1.005 Low 1.005-1.030 [facility] Comment on above: Performed By: #### D AU, UA #### [place] [address] [place] [address] Prevention Rn: Darci Castle MD Urobilinogen,Ur 0.2 EU/dL Normal 0.0-1.0 [facility] Comment on above: Performed By: #### D AU, UA #### [facility] [address] [place] [address] Prevention Rn: Darci Castle MD CBC with Auto Differentialon 03-07-2024 Basophils (Bld) [#/Vol] 0.03 10*3/uL [facility] Basophils/100 WBC (Bld) 1 % 0.0 - 2.0 % [facility] Eosinophils (Bld) [#/Vol] 0.10 10*3/uL [facility] Eosinophils/100 WBC (Bld) 2 % 0 - 6 % [facility] Erythrocyte distribution width (RBC) [Ratio] 12.7 % 11.5 - 15.0 % [facility] Hematocrit (Bld) [Volume fraction] 37.6 % 34.0 - 48.0 % [facility] Hemoglobin (Bld) [Mass/Vol] 12.5 g/dL 11.5 - 15.5 g/dL [facility] Immature granulocytes (Bld) [#/Vol] [facility] Immature granulocytes/100 WBC (Bld) 0 % 0.0 - 5.0 % [facility] Interpretation and review of laboratory results Abnormal [facility] Lymphocytes/100 WBC (Bld) 44 % High 20.0 - 42.0 % [facility] Lymphocytes/100 WBC (Bld) 2.02 % [facility] MCH (RBC) [Entitic mass] 30.3 pg 26.0 - 35.0 pg [facility] MCHC (RBC) [Mass/Vol] 33.2 g/dL 32.0 - 34.5 g/dL [facility] MCV (RBC) [Entitic vol] 91.0 fL 80.0 - 99.9 fL [facility] Monocytes/100 WBC (Bld) 12 % 2.0 - 12.0 % [facility] Monocytes/100 WBC (Bld) 0.54 % [facility] Neutrophils/100 WBC (Bld) 41 % Low 43.0 - 80.0 % [facility] Platelet mean volume (Bld) [Entitic vol] 8.0 fL 7.0 - 12.0 fL [facility] Platelets (Bld) [#/Vol] 305 10*3/uL [facility] RBC (Bld) [#/Vol] 4.13 10*6/uL 3.50 - 5.5 0 m/uL [facility] Segmented neutrophils/100 WBC (Bld) 1.87 % [facility] WBC other (Bld) [#/Vol] 4.6 [facility] CBC with Diffon 03-07-2024 Abs. Basophil 0.03 k/uL Normal 0.00-0.20 [facility] Comment on above: Performed By: #### ROSSY ALTAMIRANO, CP #### [place] [address] Prevention Rn: Darci Castle MD Abs.Imm.Granulocyte <0.03 Normal 0.00-0.58 [facility] Comment on above: Performed By: #### ROSSY ALTAMIRANO, CP #### [place] [address] Prevention Rn: Darci Castle MD Abs.Neutrophil (Seg) 1.87 k/uL Normal 1.80-7.30 [facility] Comment on above: Performed By: #### ROSSY ALTAMIRANO, CP #### [place] [id number] Prevention Rn: Darci Castle MD Basophils/100 WBC (Bld) 1 % Normal 0.0-2.0 [facility] Comment on above: Performed By: #### ROSSY ALTAMIRANO, CP #### [place] [address] Prevention Rn: Darci Castle MD Eosinophils (Bld) [#/Vol] 0.10 10*3/uL Normal 0.05-0.50 [facility] Comment on above: Performed By: #### ROSSY ALTAMIRANO, CP #### [place] [address] Prevention Rn: Darci Castle MD Eosinophils/100 WBC (Bld) 2 % Normal 0-6 [facility] Comment on above: Performed By: #### ROSSY ALTAMIRANO, CP #### [place] [address] Prevention Rn: Darci Castle MD Erythrocyte distribution width (RBC) [Ratio] 12.7 % Normal 11.5-15.0 [facility] Comment on above: Performed By: #### ROSSY ALTAMIRANO, CP #### [place] [address] Prevention Rn: Darci Castle MD Hematocrit (Bld) [Volume fraction] 37.6 % Normal 34.0-48.0 [facility] Comment on above: Performed By: #### ROSSY ALTAMIRANO, CP #### [place] [address] Prevention Rn: Darci Castle MD Hemoglobin (Bld) [Mass/Vol] 12.5 g/dL Normal 11.5-15.5 [facility] Comment on above: Performed By: #### ROSSY ALTAMIRANO, CP #### [place] [address] Prevention Rn: Darci Castle MD Immature granulocytes/100 WBC (Bld) 0 % Normal 0.0-5.0 [facility] Comment on above: Performed By: #### ROSSY ALTAMIRANO, CP #### [address] [place] [address] Prevention Rn: Darci Castle MD Lymphocytes (Bld) [#/Vol] 2.02 10*3/uL Normal 1.50-4.00 [facility] Comment on above: Performed By: #### T ROSSY SAVAGE, CP #### [address] [place] [address] Prevention Rn: Darci Castle MD Lymphocytes/100 WBC (Bld) 44 % High 20.0-42.0 [facility] Comment on above: Performed By: #### ROSSY ALTAMIRANO, CP #### [address] [place] [address] Prevention Rn: Darci Castle MD MCH (RBC) [Entitic mass] 30.3 pg Normal 26.0-35.0 [facility] Comment on above: Performed By: #### ROSSY ALTAMIRANO, CP #### [address] [place] [address] Prevention Rn: Darci Castle MD MCHC (RBC) [Mass/Vol] 33.2 g/dL Normal 32.0-34.5 [facility] Comment on above: Performed By: #### T ROSSY SAVAGE, CP #### [address] [place] [id number] Prevention Rn: Darci Castle MD MCV (RBC) [Entitic vol] 91.0 fL Normal 80.0-99.9 [facility] Comment on above: Performed By: #### T ROSSY SAVAGE, CP #### [address] [place] [id number] Prevention Rn: Darci Castle MD Monocytes (Bld) [#/Vol] 0.54 10*3/uL Normal 0.10-0.95 [facility] Comment on above: Performed By: #### ROSSY ALTAMIRANO, CP #### [address] [place] [address] Prevention Rn: Darci Castle MD Monocytes/100 WBC (Bld) 12 % Normal 2.0-12.0 [facility] Comment on above: Performed By: #### ROSSY ALTAMIRANO, CP #### [place] [address] Prevention Rn: Darci Castle MD Neutrophil (Seg) 41 % Low 43.0-80.0 [facility] Comment on above: Performed By: #### ROSSY ALTAMIRANO, CP #### [address] [place] [address] Prevention Rn: Darci Castle MD Platelet mean volume (Bld) [Entitic vol] 8.0 fL Normal 7.0-12.0 [facility] Comment on above: Performed By: #### ROSSY ALTAMIRANO, CP #### [address] [place] [address] Prevention Rn: Darci Castle MD Platelets (Bld) [#/Vol] 305 10*3/uL Normal 130-450 [facility] Comment on above: Performed By: #### ROSSY ALTAMIRANO, CP #### [place] [address] Prevention Rn: Darci Castle MD RBC (Bld) [#/Vol] 4.13 10*6/uL Normal 3.50-5.50 [facility] Comment on above: Performed By: #### ROSSY ALTAMIRANO, CP #### [address] [place] [address] Prevention Rn: Darci Castle MD WBC (Bld) [#/Vol] 4.6 10*3/uL Normal 4.5-11.5 [facility] Comment on above: Performed By: #### T ROSSY SAVAGE, CP #### [address] [place] [address] Prevention Rn: Darci Castle MD Comp Metabolic Profon 2024 Albumin [Mass/Vol] 3.9 g/dL Normal 3.5-5.2 [facility] Comment on above: Performed By: #### T ROSSY SAVAGE, CP #### [place] [address] Prevention Rn: Darci Castle MD Alkaline Phos 79 U/L Normal 35-104 [facility] Comment on above: Performed By: #### T RSOSY SAVGAE, CP #### [place] [address] Prevention Rn: Darci Castle MD ALT [Catalytic activity/Vol] 14 U/L Normal 0-32 [facility] Comment on above: Performed By: #### T ROSSY SAVAGE, CP #### [address] [place] [address] Prevention Rn: Darci Castle MD Anion gap [Moles/Vol] 7 mmol/L Normal 7-16 [facility] Comment on above: Performed By: #### T ROSSY SAVAGE, CP #### [address] [address] Prevention Rn: Darci Castle MD AST [Catalytic activity/Vol] 16 U/L Normal 0-31 [facility] Comment on above: Performed By: #### T ROSSY SAVAGE, CP #### [address] [place] [address] Prevention Rn: Darci Castle MD Bilirubin [Mass/Vol] 0.3 mg/dL Normal 0.0-1.2 [facility] Comment on above: Performed By: #### T ROSSY SAVAGE, CP #### [address] [address] Prevention Rn: Darci Castle MD Calcium [Mass/Vol] 9.1 mg/dL Normal 8.6-10.2 [facility] Comment on above: Performed By: #### T ROSSY SAVAGE, CP #### [address] [address] Prevention Rn: Darci Castle MD Chloride [Moles/Vol] 102 mmol/L Normal 98-107 [facility] Comment on above: Performed By: #### T ROSSY SAVAGE, CP #### [address] [address] Prevention Rn: Darci Castle MD CO2 [Moles/Vol] 30 mmol/L High 22-29 [facility] Comment on above: Performed By: #### T ROSSY SAVAGE, CP #### [address] [address] Prevention Rn: Darci Castle MD Creatinine [Mass/Vol] 0.7 mg/dL Normal 0.50-1.00 [facility] Comment on above: Performed By: #### T ROSSY SAVAGE, CP #### [address] [address] Prevention Rn: Darci Castle MD GFR/1.73 sq M.predicted among non-blacks MDRD (S/P/Bld) [Vol rate/Area] mL/min/{1.73_m2} Normal >60 [facility] Comment on above: Result Comment: These results are not intended for use in patients <18 years of age. eGFR results are calculated without a race factor using the 2020 CKD-EPI equation. Careful clinical correlation is recommended, particularly when comparing to results calculated using previous equations. The CKD-EPI equation is less accurate in patients with extremes of muscle mass, extra-renal metabolism of creatine, excessive creatine ingestion, or following therapy that affects renal tubular secretion. Performed By: #### ROSSY ALTAMIRANO, CP #### [place] [address] Prevention Rn: Darci Castle MD Glucose [Mass/Vol] 105 mg/dL High 74-99 [facility] Comment on above: Performed By: #### ROSSY ALTAMIRANO, CP #### [place] [address] Prevention Rn: Darci Castle MD Potassium [Moles/Vol] 3.9 mmol/L Normal 3.5-5.0 [facility] Comment on above: Performed By: #### ROSSY ALTAMIRANO, CP #### [place] [address] Prevention Rn: Darci Castle MD Protein [Mass/Vol] 6.1 g/dL Low 6.4-8.3 [facility] Comment on above: Performed By: #### ROSSY ALTAMIRANO, CP #### [place] [address] Prevention Rn: Darci Castle MD Sodium [Moles/Vol] 139 mmol/L Normal 132-146 [facility] Comment on above: Performed By: #### ROSSY ALTAMIRANO, CP #### [place] [address] [facility]. [place], [place] [id number] Prevention Rn: Darci Castle MD Urea nitrogen [Mass/Vol] 3 mg/dL Low 6-20 [facility] Comment on above: Performed By: #### T HUSSEIN, CBCWD, CP #### [facility] [address] [facility] [place], [place] [id number] Prevention Rn: Darci Castle MD Comprehensive Metabolic Pane [facility] 03-07-2024 Albumin [Mass/Vol] 3.9 g/dL 3.5 - 5.2 g/dL [facility] ALP [Catalytic activity/Vol] 79 U/L 35 - 104 U/L [facility] ALT [Catalytic activity/Vol] 14 U/L 0 - 32 U/L [facility] Anion gap [Moles/Vol] 7 mmol/L 7 - 16 mmol/L [facility] AST [Catalytic activity/Vol] 16 U/L 0 - 31 U/L [facility] Bilirubin [Mass/Vol] 0.3 mg/dL 0.0 - 1 .2 mg/dL [facility] Calcium [Mass/Vol] 9.1 mg/dL 8.6 - 10. 2 mg/dL [facility] Chloride [Moles/Vol] 102 mmol/L 98 - 10 7 mmol/L [facility] CO2 [Moles/Vol] 30 mmol/L High 22 - 29 mmol/L [facility] Creatinine [Mass/Vol] 0.7 mg/dL 0.50 - 1.00 mg/dL [facility] Est, Glom Filt Rate - PINF [facility] Comment on above: These results are not intended for use in patients <18 years of age. eGFR results are calculated without a race factor using the 2020 CKD-EPI equation. Careful clinical correlation is recommended, particularly when comparing to results calculated using previous equations. The CKD-EPI equation is less accurate in patients with extremes of muscle mass, extra-renal metabolism of creatine, excessive creatine ingestion, or following therapy that affects renal tubular secretion. Glucose [Mass/Vol] 105 mg/dL High 74 - 99 mg/dL [facility] Potassium [Moles/Vol] 3.9 mmol/L 3.5 - 5.0 mmol/L [facility] Protein [Mass/Vol] 6.1 g/dL Low 6.4 - 8.3 g/dL [facility] Sodium [Moles/Vol] 139 mmol/L 132 - 146 mmol/L [facility] Urea nitrogen [Mass/Vol] 3 mg/dL Low 6 - 20 mg/dL [facility] No Panel Informationon 03-07 Radiology Study observation (narrative) [facility] Interpretation and review of laboratory results Abnormal [facility] Troponinon 03-07-2024 Troponin I.cardiac High sensitivity method [Mass/Vol] 17 ng/L High 0 - 9 ng/L [facility] Comment on above: High Sensitivity Troponin values cannot be compared with other Troponin methodologies. Patients with high levels of Biotin oral intake (i.e >5mg/day) may have falsely decreased Troponin levels. Samples collected within 8 hours of biotin intake may require additional information for diagnosis. Troponin, High Sens 17 ng/L High 0-9 [facility] Comment on above: Result Comment: High Sensitivity Troponin values cannot be compared with other Troponin methodologies. Patients with high levels of Biotin oral intake (i.e >5mg/day) may have falsely decreased Troponin levels. Samples collected within 8 hours of biotin intake may require additional information for diagnosis. Performed By: #### T JOSHI, CBCWD, CP #### [facility] [address] [place] [address] Prevention Rn: Darci Castle MD XR SHOULDER LEFT (MIN 2 VIEW S)on 03-07-2024 XR SHOULDER LEFT (MIN 2 VIEWS) EXAMINATION: THREE XRAY VIEWS OF THE LEFT SHOULDER 03/07/2024 11:07 pm COMPARISON: 01/10/2023 HISTORY: ORDERING SYSTEM PROVIDED HISTORY: fall, pain TECHNOLOGIST PROVIDED HISTORY: Reason for exam:->fall, pain FINDINGS: Glenohumeral joint is normally aligned. No evidence of acute fracture or dislocation. Rotator cuff periarticular calcifications. AC joint degenerative changes. Visualized lung is unremarkable. IMPRESSION: No acute abnormality. Interpreted by: Bello Peralta MD Signed by: Bello Peralta MD 03/07/24 Final result Normal [facility] Comment on above: Order Comment: Reaso n for exam:->fall, pain XR Shoulder - left 2 Viewson 03-07-2024 No acute abnormality . [facility] EXAMINATION: THREE XRAY VIEWS OF THE LEFT SHOULDER 03/07/2024 11:07 pm COMPARISON: 01/10/2023 HISTORY: ORDERING SYSTEM PROVIDED HISTORY: fall, pain TECHNOLOGIST PROVIDED HISTORY: Reason for exam:->fall, pain FINDINGS: Glenohumeral joint is normally aligned. No evidence of acute fracture or dislocation. Rotator cuff periarticular calcifications. AC joint degenerative changes. Visualized lung is unremarkable. [facility] Bello Peralta MD - 03/07/2024 EXAMINATION: THREE XRAY VIEWS OF THE LEFT SHOULDER 03/07/2024 11:07 pm COMPARISON: 01/10/2023 HISTORY: ORDERING SYSTEM PROVIDED HISTORY: fall, pain TECHNOLOGIST PROVIDED HISTORY: Reason for exam:->fall, pain FINDINGS: Glenohumeral joint is normally aligned. No evidence of acute fracture or dislocation. Rotator cuff periarticular calcifications. AC joint degenerative changes. Visualized lung is unremarkable. IMPRESSION: No acute abnormality. [facility] Radiology Study observation (narrative) [facility] XR Shoulder - left 2 ViewsOr dered By: Bello Peralta on 03-07-2024 [facility] Work Phone: COVID-19, Rapidon 02-20-2024 SARS-CoV-2 (COVID-19) RdRp gene KESHA+probe Ql (Resp) Not detected Not Detected [facility] Comment on above: Rapid NATT: Negative results should be treated as presumptive and, if inconsistent with clinical signs and symptoms or necessary for patient management, should be tested with an alternative molecular assay. Negative results do not preclude SARS-CoV-2 infection and should not be used as the sole basis for patient management decisions. This test has been authorized by the FDA under an Emergency Use Authorization (EUA) for use by authorized laboratories. Fact sheet for Healthcare Providers: https://www.fda.gov/media/185993/download Fact sheet for Patients: https://www.fda.gov/media/219495/download Methodology: Isothermal Nucleic Acid Amplification Specimen Description .NASOPHARYNGEAL SWAB [facility] Influenza A and [facility] 02-20-20 24 Influenza A by MOL Detected Abnormal [facility] Comment on above: Result Comment: Meth odology: Isothermal Nucleic Acid Amplification Performed By: #### F LUABP ####[place] [address] Lab Director: Jewell Tse MD Influenza B by MOL Not detected Normal [facility] Comment on above: Result Comment: Meth odology: Isothermal Nucleic Acid Amplification Performed By: #### F LUABP ####[place] [id number] lab Director: Jewell Tse MD Influenza A+B, PCRon 024 Influenza A by PCR Detected Abnormal Not Detected [facility] Comment on above: Methodology: Isother mal Nucleic Acid Amplification Influenza B by PCR Not detected Not Detected [facility] Comment on above: Methodology: Isother mal Nucleic Acid Amplification Interpretation and review of laboratory results Abnormal [facility] No Panel Informationon 02-19 [facility] [id number] 02-20-2024 SARS-CoV-2 (COVID-19) RNA KESHA+probe Ql (Unsp spec) Not detected Normal [facility] Comment on above: Result Comment: Rapid NATT: Negative results should be treated as presumptive and, if inconsistent with clinical signs and symptoms or necessary for patient management, should be tested with an alternative molecular assay. Negative results do not preclude SARS-CoV-2 infection and should not be used as the sole basis for patient management decisions. This test has been authorized by the FDA under an Emergency Use Authorization (EUA) for use by authorized laboratories. Fact sheet for Healthcare Providers: https://www.fda.gov/media/221602/download Fact sheet for Patients: https://www.fda.gov/media/749860/download Methodology: Isothermal Nucleic Acid Amplification Performed By: #### C OVRB #### [facility] [address] [place] [address] Prevention Rn: Jewell Tse MD XR CHEST (2 VW)on 02-20-2024 XR CHEST (2 VW) EXAMINATION: TWO XRAY VIEWS OF THE CHEST 02/20/2024 5:25 am COMPARISON: None. HISTORY: ORDERING SYSTEM PROVIDED HISTORY: cough TECHNOLOGIST PROVIDED HISTORY: Reason for exam:->cough FINDINGS: Two-view chest reveals cardiac and mediastinal silhouettes within normal limits. The lung whitfield are clear. No focal parenchymal opacification present. Some linear scarring or atelectatic change identified within the lingula. Mild bronchial cuffing in the perihilar regions to suggest a nonspecific bronchiolitis. No pleural effusion or pneumothorax. The bony structures are unremarkable. Pulmonary vascularity is within normal limits. IMPRESSION: Some peribronchial cuffing to suggest a nonspecific bronchiolitis. No acute parenchymal disease.. Interpreted by: Mckayla Ha MD Signed by: Mckayla Ha MD 02/20/24 Final result Normal [facility] Comment on above: Order Comment: Reaso n for exam:->cough XR Chest 2 Viewson Some peribronchial cuffing to suggest a nonspecific bronchiolitis. No acute parenchymal disease.. [facility] EXAMINATION: TWO XRAY VIEWS OF THE CHEST 02/20/2024 5:25 am COMPARISON: None. HISTORY: ORDERING SYSTEM PROVIDED HISTORY: cough TECHNOLOGIST PROVIDED HISTORY: Reason for exam:->cough FINDINGS: Two-view chest reveals cardiac and mediastinal silhouettes within normal limits. The lung whitfield are clear. No focal parenchymal opacification present. Some linear scarring or atelectatic change identified within the lingula. Mild bronchial cuffing in the perihilar regions to suggest a nonspecific bronchiolitis. No pleural effusion or pneumothorax. The bony structures are unremarkable. Pulmonary vascularity is within normal limits. [facility] Mckayla Ha MD - 02/20/2024 EXAMINATION: TWO XRAY VIEWS OF THE CHEST 02/20/2024 5:25 am COMPARISON: None. HISTORY: ORDERING SYSTEM PROVIDED HISTORY: cough TECHNOLOGIST PROVIDED HISTORY: Reason for exam:->cough FINDINGS: Two-view chest reveals cardiac and mediastinal silhouettes within normal limits. The lung whitfield are clear. No focal parenchymal opacification present. Some linear scarring or atelectatic change identified within the lingula. Mild bronchial cuffing in the perihilar regions to suggest a nonspecific bronchiolitis. No pleural effusion or pneumothorax. The bony structures are unremarkable. Pulmonary vascularity is within normal limits. IMPRESSION: Some peribronchial cuffing to suggest a nonspecific bronchiolitis. No acute parenchymal disease.. [facility] Radiology Study [facility]narrative) [facility] 2 ViewsOrdered By: Mckayla Ha on 02-20-2024 [facility] Work Phone: MR-ANKLE LEFT WO CONTRASTon 02-12-2024 MR-ANKLE LEFT WO CONTRAST Name: DB DOAN Phys: Ryne Ramirez MD : 1970 Age: 53 Sex: F Acct: [id number] Loc: [facility] Exam Date: 02/12/2024 Status: PRE REF Radiology No: Unit No: [id number] PH: [phone] Diagnosis: INSTABILITY LEFT ANKLE EXAM: [id number] MR-ANKLE LEFT WO CONTRAST Reason For Procedure: LEFT ANKLE INSTABILITY, SPRAIN STUDY: MR-ANKLE LEFT WO CONTRAST CLINICAL INDICATION: [Ankle instability. TECHNIQUE: Magnetic resonance imaging left ankle. Multiplanar multipulse images obtained without intraarticular or intravenous contrast material. COMPARISON: None. FINDINGS: The Achilles tendon is intact and of normal signal intensity. Plantar fascia is normal. Ankle mortise is intact. No osteochondral lesions are seen. Well-corticated bony density inferior to the lateral malleolus apparent old trauma. Deltoid ligament is intact. Sinus tarsi and tarsal tunnels are normal. Subtalar joint appears normal. Calcaneofibular ligament is intact. The tendons along the anterior, posterior lateral aspect of the ankle are intact. Fluid is seen surrounding the tibialis posterior tendon along the medial aspect left ankle. Mild edema anterior talofibular ligament apparent low-grade sprain. Posterior talofibular ligament is intact. The anterior and posterior tibiofibular ligaments are intact. IMPRESSION: TENOSYNOVITIS TIBIALIS POSTERIOR TENDON. MILD LOW-GRADE SPRAIN ANTERIOR TALOFIBULAR LIGAMENT. REPORT SIGNED IN OTHER VENDOR SYSTEM 02/12/2024 Reported By: Ron Coon MD CC: Technologist: KOJO MAE, RT/R/ Transcribed Date/Time: 02/12/2024 (606) [employer] Installer: NAFISA Printed Date/Time: 02/12/2024 ([id number]) PAGE 1 Signed Report Normal [facility] CT CERVICAL SPINE WO JARRET Ton 02-11-2024 CT CERVICAL SPINE WO CONTRAST EXAMINATION: CT OF THE CERVICAL SPINE WITHOUT CONTRAST 02/11/2024 3:56 am TECHNIQUE: CT of the cervical spine was performed without the administration of intravenous contrast. Multiplanar reformatted images are provided for review. Automated exposure control, iterative reconstruction, and/or weight based adjustment of the mA/kV was utilized to reduce the radiation dose to as low as reasonably achievable. COMPARISON: None. HISTORY: ORDERING SYSTEM PROVIDED HISTORY: eval neck pain c7, fall TECHNOLOGIST PROVIDED HISTORY: Reason for exam:->eval neck pain c7, fall Decision Support Exception - unselect if not a suspected or confirmed emergency medical condition->Emergency Medical Condition (MA) FINDINGS: BONES/ALIGNMENT: There is no acute fracture or traumatic malalignment. DEGENERATIVE CHANGES: There is multilevel degenerative disc disease, without significant spinal canal stenosis. SOFT TISSUES: There is no prevertebral soft tissue swelling. IMPRESSION: No acute abnormality of the cervical spine. Interpreted by: Jaja Weaver MD Signed by: Jaja Weaver MD 02/11/24 Final result Normal [facility] Comment on above: Order Comment: Reaso n for exam:->eval neck pain c7, fall Decision Support Exception - unselect if not a suspected or confirmed emergency medical condition->Emergency Medical Condition (MA) CT Cervical spine WO contrtyler ton 02-11-2024 No acute abnormality of the cervical spine. [facility] EXAMINATION: CT OF THE CERVICAL SPINE WITHOUT CONTRAST 02/11/2024 3:56 am TECHNIQUE: CT of the cervical spine was performed without the administration of intravenous contrast. Multiplanar reformatted images are provided for review. Automated exposure control, iterative reconstruction, and/or weight based adjustment of the mA/kV was utilized to reduce the radiation dose to as low as reasonably achievable. COMPARISON: None. HISTORY: ORDERING SYSTEM PROVIDED HISTORY: eval neck pain c7, fall TECHNOLOGIST PROVIDED HISTORY: Reason for exam:->eval neck pain c7, fall Decision Support Exception - unselect if not a suspected or confirmed emergency medical condition->Emergency Medical Condition (MA) FINDINGS: BONES/ALIGNMENT: There is no acute fracture or traumatic malalignment. DEGENERATIVE CHANGES: There is multilevel degenerative disc disease, without significant spinal canal stenosis. SOFT TISSUES: There is no prevertebral soft tissue swelling. [facility] Jaja Weaver MD - 02/11/2024 EXAMINATION: CT OF THE CERVICAL SPINE WITHOUT CONTRAST 02/11/2024 3:56 am TECHNIQUE: CT of the cervical spine was performed without the administration of intravenous contrast. Multiplanar reformatted images are provided for review. Automated exposure control, iterative reconstruction, and/or weight based adjustment of the mA/kV was utilized to reduce the radiation dose to as low as reasonably achievable. COMPARISON: None. HISTORY: ORDERING SYSTEM PROVIDED HISTORY: eval neck pain c7, fall TECHNOLOGIST PROVIDED HISTORY: Reason for exam:->eval neck pain c7, fall Decision Support Exception - unselect if not a suspected or confirmed emergency medical condition->Emergency Medical Condition (MA) FINDINGS: BONES/ALIGNMENT: There is no acute fracture or traumatic malalignment. DEGENERATIVE CHANGES: There is multilevel degenerative disc disease, without significant spinal canal stenosis. SOFT TISSUES: There is no prevertebral soft tissue swelling. IMPRESSION: No acute abnormality of the cervical spine. [facility] Radiology Study observation (narrative) [facility] CT Cervical spine WO contras tOrdered By: Jaja Weaver on 02-11-2024 [facility] Work Phone: XR CERVICAL SPINE 2-3 VIEWSo n 02-10-2024 XR CERVICAL SPINE 2-3 VIEWS Interpreted By: Monae Owens, STUDY: XR CERVICAL SPINE 2-3 VIEWS; ; 02/10/2024 4:56 am INDICATION: Signs/Symptoms:fall. COMPARISON: None. ACCESSION NUMBER(S): [id number] ORDERING CLINICIAN: CHRIS TIWARI FINDINGS: Three views of the cervical spine Alignment appears grossly maintained. Visualized dens appears grossly intact. Multilevel degenerative changes with facet and uncinate hypertrophy. Intervertebral disc space narrowing. Vertebral body heights are grossly maintained. The prevertebral soft tissues are within normal limits. Visualized lung apices are clear. IMPRESSION: Degenerative changes. MACRO: None Signed by: Monae Owens 02/10/2024 5:41 AM Dictation workstation: [id number] [facility] XR HIP RIGHT WITH PELVIS WHE N PERFORMED 2 OR 3 VIEWSon 02-10-2024 XR HIP RIGHT WITH PELVIS WHEN PERFORMED 2 OR 3 VIEWS Interpreted By: Monae Owens, STUDY: XR HIP RIGHT WITH PELVIS WHEN PERFORMED 2 OR 3 VIEWS; ; 02/10/2024 4:56 am INDICATION: Signs/Symptoms:fall. COMPARISON: 08/04/2022 ACCESSION NUMBER(S): [id number] ORDERING CLINICIAN: CHRIS TIWARI FINDINGS: AP pelvis and two views of the right hip. No acute fracture or dislocation identified. Mild degenerative changes noted. Soft tissues are grossly unremarkable. IMPRESSION: No acute osseous abnormality identified. MACRO: None Signed by: Monae Owens 02/10/2024 5:44 AM Dictation workstation: [id number] [facility] XR SHOULDER RIGHT 2+ VIEWSon 02-10-2024 XR SHOULDER RIGHT 2+ VIEWS Interpreted By: Monae Owens, STUDY: XR SHOULDER RIGHT 2+ VIEWS; ; 02/10/2024 4:56 am INDICATION: Signs/Symptoms:fall. COMPARISON: None. ACCESSION NUMBER(S): [id number] ORDERING CLINICIAN: CHRIS TIWARI FINDINGS: Two views of the right shoulder Mild degenerative changes of the acromioclavicular joint. No acute fracture dislocation identified within constraints of limited projection. Soft tissues are within normal limits. The visualized right chest is grossly unremarkable. IMPRESSION: No acute osseous abnormality identified within constraints of limited projection. MACRO: None Signed by: Monae Owens 02/10/2024 5:45 AM Dictation workstation: [id number] [facility] Emergency Department Summary on 01-24-2024 Emergency Department Summary [facility] Medical Records Department [address] [facility] [place] [address] Emergency Department Summary 01/24/24 MR#: [id number] Acct: [id number] Name: DB DOAN Timoteo Rep #: [id number] : 1970 53 From: Edwar Fitzpatrick DO PCP: Maria Elena Montalvo MD Status:DEP ER Location: ED HPI History of Present Illness Chief Complaint: Back Informant: patient Onset/Context/Timing Onset: Days Context: Gradual Onset Timing: Continuous Quality: - (Shock like) Location: Thoracic, Lumbar, Buttock and Right Leg Worsened by: improves with Movement and Ambulation Relieved by: Nothing Associated Symptoms Associated Symptoms: Tingling and Radiation to Right Leg; Negative for Numbness, Radiation to Left Leg, Fever, Abdominal Pain, Dysuria, Unable to Ambulate, Unable to Transfer, Urinary Retention, Urinary Incontinence, Constipation or Fecal Incontinence Narrative Narrative: Patient presents with low back pain that has been getting worse over the past few days. Patient states she slipped and fell and landed on her right hip recently. Patient states she was also recently diagnosed with COVID and pneumonia. Patient states this has flared up her back pain. Patient states she also has a history of ankylosing spondylitis and fibromyalgia. Patient admits to some tingling down her right leg. Patient admits to some pain shooting to her posterior thigh. Patient denies any radiation of the pain to her abdomen. Patient denies any bowel or bladder changes. Patient denies any saddle anesthesia. [facility] Medical History (Updated 01/24/24 @ 17:[address] Edwar Fitzpatrick DO) Depression Anxiety Fibromyalgia Ankylosing spondylitis Epilepsy Home Medications ???Medication ???Instructions ???Recorded ???Last Taken ???Type duloxetine 60 mg capsule,delayed 60 mg PO DAILY 10/27/23 Unknown History release (Cymbalta) fluticasone fur. 200 mcg-umeclid 1 ea inhalation DAILY 10/27/23 Unknown History 62.5 mcg-vilant 25 mcg inhalat.powder (Trelegy Ellipta) fluticasone propionate 50 2 spray intranasal DAILY PRN 10/27/23 Unknown History mcg/actuation nasal congestion spray,suspension gabapentin 600 mg tablet 600 mg PO TID 10/27/23 Unknown History hydroxyzine HCl 25 mg tablet 25 mg PO DAILY PRN anxiety 10/27/23 Unknown History lamotrigine 150 mg tablet 150 mg PO DAILY 10/27/23 Unknown History oxycodone-acetaminophen 5 mg-325 1 tab PO Q8H PRN pain 3 days #9 01/24/24 Unknown Rx mg tablet (Percocet) tabs Allergy/AdvReac Type Severity Reaction Status Date / Time No Known Allergies Allergy Verified 01/24/24 14:41 Surgical History History of herniorrhaphy Hx of section Social History household members: children Smoking Status: Current every day smoker tobacco type: cigarettes alcohol intake: current substance use type: does not use ROS ROS ED Constitutional Constitutional ED: Denies chills or fever(s) Eyes Eyes: Denies blurry vision or change in vision ENT ENT ED: Denies rhinorrhea or sore throat Cardiovascular Cardiovascular: Denies chest pain or palpitations Respiratory/Chest Respiratory/Chest: Reports cough; Denies dyspnea Gastrointestinal Gastrointestinal: Reports nausea; Denies vomiting Genitourinary Genitourinary ED: Denies dysuria or hematuria Musculoskeletal Musculoskeletal: Reports back pain and neck pain Integumentary Denies abscess or rash Neurologic Neurologic: Reports headache(s); Denies weakness Allergic/Immunologic Allergic/Immunologic ED: Denies mouth swelling or urticaria EXAM Physical Exam Const Vital Signs: 01/24/24 14:41 Temperature 98.3 F Temperature Source Oral Pulse Rate 114 H Respiratory Rate 18 Blood Pressure 142/93 H Blood Pressure Mean 109 Pulse Ox 98 Oxygen Delivery Method Room Air Positive well nourished and well developed General Appearance ED: well developed and NAD HEENT Reports moist mucous membranes Neck supple and no JVD Back/Spine Back/Spine Narrative: There is tenderness over the lumbar spine and paraspinal muscles. There is also tenderness over the right sacroiliac joint. There is tenderness over the sacrum. There is no edema or ecchymosis. Range of motion was slightly limited in all motions of the lumbar spine secondary to pain. Strength is 5/5 bilaterally in the lower extremities. There are no sensory deficits noted. Deep tendon reflexes are 2/4 bilaterally in the lower extremities. Straight leg raises were negative bilaterally. Patient was able to get out of bed and stand on her own without difficulty. Lumbar Spine / Lower Back: ROM limited and straight leg raise negative bilaterally Extremity normal to inspection General Extremety ED: N (more content not included)... Normal [facility] HIP, UNI W/ Pelvis 2-3 Views on 01-24-2024 HIP, UNI W/ Pelvis 2-[address] [facility] Imaging Services [address] [place], [place] [id number] HIP, UNI W/ Pelvis 2-3 Views MR#: [id number] Acct: [id number] Name: DB DOAN Rep #: [id number] : 1970 F 53 From: Ron Solano MD PCP: Maria Elena Montalvo MD Status: REG ER Study: HIP, UNI W/ Pelvis 2-3 Views Date of Exam: Exam# [id number] Ordering [place]: [place] [id number] STUDY: X-RAY - PELVIS AND RIGHT HIP REASON FOR EXAM: Female, 53 years old. Injury/Pain TECHNIQUE: 3 views of the pelvis and hip. COMPARISON: None. FINDINGS: There is a non-specific bowel gas pattern. Normal visualized soft tissue structures. Normal bilateral iliac wings, sacroiliac joints and visualized sacrum. Normal bilateral superior and inferior pubic rami. Normal pubic symphysis. Normal bilateral ischial tuberosities. Normal visualized femoral head. Normal acetabulum. Normal hip joint. RAD/HIP, UNI W/ Pelvis 2-3 Views IMPRESSION: No evidence for acute fracture of the pelvis or right hip Electronically Signed: Ron Solano MD at 16:50 EST , CC: Maria Elena Montalvo MD; Dr. Edwar Fitzpatrick DO Jalousies Installer: Signed Normal [facility] COVID-19 & Influenza [place] 01-21-2024 FLUAV RNA KSEHA+probe Ql (Resp) Not detected Not Detected [facility] Comment on above: Note: Influenza A an d Influenza B negative results should be considered presumptive in samples that have a Detected SARS-CoV-2 result. Consider re-testing with an alternate FDA-approved test if clinically indicated. FLUBV RNA KESHA+probe Ql (Resp) Not detected Not Detected [facility] Comment on above: Note: Influenza A an d Influenza B negative results should be considered presumptive in samples that have a Detected SARS-CoV-2 result. Consider re-testing with an alternate FDA-approved test if clinically indicated. Interpretation and review of laboratory results Abnormal [facility] SARS-CoV-2 (COVID-19) RNA KESHA+probe Ql (Resp) Detected Abnormal Not Detected [facility] Comment on above: Testing was performed using JOSE G Bri SARS-CoV-2 and Influenza A/B nucleic acid assay. This test is a multiplex Real-Time Reverse Transcriptase Polymerase Chain Reaction (RT-PCR)-based in vitro diagnostic test intended for the qualitative detection of nucleic acids from SARS-CoV-2, influenza A, and influenza B in nasopharyngeal and nasal swab specimens for use under the FDA's Emergency Use Authorization (EUA) only. Detected results are indicative of the presence of SARS-CoV-2. Clinical correlation with patient history and other diagnostic information is necessary to determine patient infection status. Positive results do not rule out bacterial infection or co-infection with other pathogens. Fact sheet for Patients: https://www.fda.gov/media/554634/download Fact sheet for Healthcare Providers: https://www.fda.gov/media/587514/download Source .NASOPHARYNGEAL SWAB [facility] Specimen Description .NASOPHARYNGEAL SWAB [facility] SARS-CoV-2 + Flu A/Bon 01-20 Influenza A, RT-PCR Not detected Normal [facility] Comment on above: Result Comment: Note : Influenza A and Influenza B negative results should be considered presumptive in samples that have a Detected SARS-CoV-2 result. Consider re-testing with an alternate FDA-approved test if clinically indicated. Performed By: #### C VFLU #### [facility] [address] [place] [address] Prevention Rn: Liseth Doran MD Influenza B, RT-PCR Not detected Normal [facility] Comment on above: Result Comment: Note : Influenza A and Influenza B negative results should be considered presumptive in samples that have a Detected SARS-CoV-2 result. Consider re-testing with an alternate FDA-approved test if clinically indicated. Performed By: #### C VFLU #### [facility] [address] [place], [place] [id number] Prevention Rn: Liseth Doran MD SARS-CoV-2 (COVID-19) RNA KESHA+probe Ql (Unsp spec) Detected Abnormal [facility] Comment on above: Result Comment: Testing was performed using JOSE G Bri SARS-CoV-2 and Influenza A/B nucleic acid assay. This test is a multiplex Real-Time Reverse Transcriptase Polymerase Chain Reaction (RT-PCR)-based in vitro diagnostic test intended for the qualitative detection of nucleic acids from SARS-CoV-2, influenza A, and influenza B in nasopharyngeal and nasal swab specimens for use under the FDA's Emergency Use Authorization (EUA) only. Detected results are indicative of the presence of SARS-CoV-2. Clinical correlation with patient history and other diagnostic information is necessary to determine patient infection status. Positive results do not rule out bacterial infection or co-infection with other pathogens. Fact sheet for Patients: https://www.fda.gov/media/794793/download Fact sheet for Healthcare Providers: https://www.fda.gov/media/626392/download Performed By: #### C VFLU #### [facility] [address] [place], [place] [id number] Prevention Rn: Liseth Doran MD Source .NASOPHARYNGEAL SWAB Normal [facility] Comment on above: Performed By: #### C VFLU #### [facility] [address] [place], [place] [id number] Prevention Rn: Liseth Doran MD [facility] 01-20-2024 [facility] HNO ID: [id number] Author: DYLAN COBURN RT(R) Service: Radiology Author Type: Technologist Type: Allied Health Filed: 01/20/2024 13:26 Note Text: Radiology Service Progress Note PATIENT NAME: Db Doan DATE OF SERVICE: January 20, 2024 TIME: 1:25 PM PATIENT IDENTITY VERIFICATION COMPLETED USING TWO (2) IDENTIFIERS: Name and Date of confirmed by patient verbally and Name and Date of confirmed by identification band. FALL SCREENING: Has the patient had 2 falls in the last year or 1 fall with injury or currently using an Ambulatory Assistive Device (Walker, Cane, Wheelchair, Crutches, etc.)? Emergency Room Patient: Screened in ED PATIENT GENDER DATA: Female. status: : No status: NO. PATIENT RELEVANT IMPLANT DATA REVIEWED: Not Applicable PATIENT PRESENTS WITH AN IMPLANTABLE OR ATTACHED LINE LEADER: No RADIOLOGY DEPARTMENT: CT; Exam(s) Completed: Pelvis PERIPHERAL IV DATA: Not applicable SIGNED BY: MARI Cuellar) January 20, 2024 1:25 PM Normal [facility] HNO ID: [id number] Author: DYLAN COBURN RT(R) Service: Radiology Author Type: Technologist Type: Allied Health Filed: 01/20/2024 13:08 Note Text: Spoke to ED, patient can come to CT when ready Normal [facility] CT PELVIS WO IVCONon 024 CT PELVIS WO IVCON * * *Final Report* * * DATE OF EXAM: Jan 20 2024 1:21PM ASC 0556 - CT PELVIS WO IVCON / PROCEDURE REASON: Pelvic fracture * * * * Physician Interpretation * * * * CT OF PELVIS WITHOUT CONTRAST CLINICAL HISTORY: Pelvic fracture. Tailbone injury. Frequent falls TECHNIQUE: Routine helical scanning of the pelvis without intravenous contrast. Reformatted thin axial, sagittal and coronal images reviewed. CT Radiation dose: Integrated Dose-length product (DLP): 202. mGy*cm. CT Dose Reduction Employed: Automated exposure control(AEC) and iterative recon COMPARISON: 10/22/2023 x-rays RESULT: No acute or chronic fracture. Bilateral hip and sacroiliac joints are maintained. No bone destruction. Sacrum and coccyx are negative. Localizer images: No additional findings. IMPRESSION: No fracture, malalignment or other deformity of pelvic bones. Jalousies Installer: PSCB Transcribe Date/Time: Jan 20 2024 2:19P Dictated by : RAYO COUCH MD This examination was interpreted and the report reviewed and electronically signed by: RAYO COUCH MD on Jan 20 2024 2:29PM EST [id number] [facility] ED NOTEon 01-20-2024 ED NOTE HNO ID: [id number] Author: LUIS HOWARD RN Service: ? Author Type: Registered Nurse Type: ED Notes Filed: 01/20/2024 14:42 Note Text: Left without paper copies of discharge instructions. [facility] ED NOTE HNO ID: [id number] Author: JUDE RIVAS RN Service: ? Author Type: Registered Nurse Type: ED Notes Filed: 01/20/2024 11:50 Note Text: Patient reports that she has an Autoimmune disease. [facility] ED NOTE HNO ID: [id number] Author: JUDE RIVAS RN Service: ? Author Type: Registered Nurse Type: ED Notes Filed: 01/20/2024 11:50 Note Text: Patient is ambulatory to ER for concerns of I feel like I am being electrocuted going up my spine and also a mole on her chest. [facility] ED PROV NOTEon 01-20-2024 ED PROV NOTE HNO ID: [id number] Author: LATANYA HELM MD Service: Emergency Medicine Author Type: Nurse Practitioner Type: ED Provider Notes Filed: 01/21/2024 12:07 Note Text: Attestation signed by Latanya Helm MD at 01/21/2024 12:07 PM SUPERVISED APC VISIT, PHYSICIAN ATTESTATION: (Supervised) Based on the medical record the care appears appropriate. ED Provider Note Patient Name: Db Doan : 1970 SERVICE DATE: 01/20/24 History Patient presents with: Back Pain This is a 53-year-old female that presents to emergency department with complaints of fall 2 days ago landing on her buttocks and now having pain up spine that feels like electrocution. She denies loss of bowel or bladder, numbness or tingling in lower extremities. It was noted that she was seen in an [id number] emergency department approximately 5 hours prior to arrival. History provided by: Patient History limited by: n/a. jack spooler tender used: No PAST MEDICAL HISTORY Diagnosis Date Anxiety attack Brachial neuritis or radiculitis NOS Centrilobular emphysema (HCC) 03/23/2022 Cervical radiculopathy Cervicalgia Disc displacement, lumbar Displacement of cervical intervertebral disc without myelopathy Generalized convulsive epilepsy without intractable epilepsy (HCC) Intractable pain Lumbar radiculopathy Migraine without aura Other chronic pain PTSD (post-traumatic stress disorder) Reactive depression Sprain or strain of cervical spine PAST SURGICAL HISTORY Procedure Laterality Date HERNIA REPAIR HX FAMILY HISTORY Problem Relation Age of Onset Coronary Artery Disease Father Social History Tobacco Use Smoking status: Every Day Current packs/day: 0.50 Types: Cigarettes Smokeless tobacco: Not on file Vaping Use Vaping status: Never Used Substance and Sexual Activity Alcohol use: Never Drug use: Never Sexual activity: Not on file ALLERGIES No Known Allergies Review of Systems Constitutional: Negative. HENT: Negative. Eyes: Negative. Respiratory: Negative. Cardiovascular: Negative. Gastrointestinal: Negative. Genitourinary: Negative. Musculoskeletal: Positive for back pain. Skin: Negative. Neurological: Negative. Psychiatric/Behavioral: Negative. Physical Exam Vitals BP Pulse Temp Temp src Resp SpO2 Weight Height 01/20/24 1150 01/20/24 1144 01/20/24 1144 01/20/24 1144 01/20/24 1144 01/20/24 1150 01/20/24 1144 01/20/24 1144 146/76 102 36.9 ?C (98.5 ?F) Temporal Art 18 99 % 63.5 kg (140 lb) 1.702 m (5' 7) Physical Exam Vitals and nursing note reviewed. Constitutional: Appearance: She is well-developed. HENT: Head: Normocephalic and atraumatic. Right Ear: External ear normal. Left Ear: External ear normal. Nose: Nose normal. Eyes: Conjunctiva/sclera: Conjunctivae normal. Pupils: Pupils are equal, round, and reactive to light. Cardiovascular: Rate and Rhythm: Normal rate and regular rhythm. Heart sounds: Normal heart sounds. Pulmonary: Effort: Pulmonary effort is normal. Breath sounds: Normal breath sounds. Abdominal: General: Bowel sounds are normal. Palpations: Abdomen is soft. Musculoskeletal: General: Normal range of motion. Cervical back: Normal range of motion and neck supple. Lumbar back: Tenderness present. No swelling, edema, deformity, signs of trauma, lacerations, spasms or bony tenderness. Normal range of motion. Negative left straight leg raise test. No scoliosis. Comments: No midline tenderness or step-offs noted. MSP's intact. Bilateral lower extremity reflexes 2+. Skin: General: Skin is warm and dry. Neurological: Mental Status: She is alert and oriented to person, place, and time. Diagnostic Testing ED Labs Ordered and Reviewed URINALYSIS, DIPSTICK ONLY - Abnormal; Notable for the following components: Result Value Ref Range Protein, Urine 1+ (*) Negative All other components within normal limits HCG, QUALITATIVE, URINE - Normal Procedures ED Course / Clinical Impression Clinical Impressions as of 01/20/241940 Chronic bilateral low back pain without sciatica MDM / Disposition / Plan MEDICAL DECISION MAKING Number and Complexity of Problems Differential Diagnosis: contusion, fx, drug seeking MDM data External documents reviewed: old records reviewed My EKG interpretation: n/a My CT interpretation: negative My X-ray interpretation: n/a My Ultrasound interpretation: n/a Decision rules/scores evaluated: n/a Discussed with: n/a Treatment and Disposition ED course: This is a 53-year-old female that presents to emergency department with complaints of fall 2 days ago landing on her buttocks and now having pain up spine that feels like electrocution. She denies loss of bowel o (more content not included)... Normal [facility]Don 01-19-2024 ED [facility] M 01/19/24 [place], [place] [address] [id number] DB DOAN None EMERGENCY ROOM REPORT [id number] History of Present Illness Date of Service 01/19/24 Provider Clive Campbell MD, MBE Chief Complaint Pain, Ankle History of Present Illness 53-year-old female with past medical history of ankylosing spondylitis, chronic lower back pain, left ankle ligamentous injury, and drug-seeking behavior presenting for back and ankle pain. Patient is well-known to this department, frequently presents to this department including 3 days ago speaking only of wanting prescriptions for opioid pain medications. Patient presents asking for opioids and an opioid pain medication prescription today. Patient reports that her chronic back pain has been acting up again as well as her left ankle. Patient does report that she was seen here 3 days ago however states that they did not give her any opioid prescription. Patient denies any new trauma or accidents, difficulty with ambulation, fevers or chills, headache, syncope, dizziness or lightheadedness, chest pain or palpitations or shortness of breath, abdominal pain, changes in urination or bowel movements, or any other symptoms or complaints. Patient reports that she used to follow-up with pain management but has not seen them in a long time. Patient reports that she has not seen her physician who manages her chronic back pain and ankylosing spondylitis and over a year. Patient does report that she is set up with orthopedics regarding her ankle and that she has an outpatient MRI scheduled in the upcoming several weeks but is not sure of exactly when. Denies any changes in these pains or symptoms. 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. She reports that the reason doctors do not take her seriously is because the magalys has gotten to them all. Patient reports that despite the litany of opioid prescription she has been given over the past year, she has not gotten any of these prescriptions as she states that the magalys is stealing my narcotics. Denies any suicidal or homicidal ideation, visual or auditory hallucinations. Patient denies any psychiatric history. Patient states that she had imaging of her ankle a few days ago in this emergency department which was normal and does not want more imaging at this time but would rather just have the Percocets and leave. Denies any other symptoms or complaints. Denies smoking, alcohol, or illicit drug use. Past Medical/Surgical History : EPILEPSY : Depression : Anxiety : ankilosing spondylisis : TAILBONE FRACTURE Family History Diabetes: none Hypertension: none CHF: none Neurological: dementia Social History Smoking history: Never smoker (Kendra Murphy MD) Home Medications . Active Scripts Lamotrigine (Lamictal) 150 MG PO DAILY Duloxetine Hcl (Cymbalta) 60 MG PO BID Gabapentin 600 MG PO TID Acetaminophen (Tylenol Extra Strength) 1,000 MG PO Q6HPRN PRN PAIN Hydroxyzine Hcl (Atarax) 50 MG PO BID Fluticasone-Umeclidiniu m-Vilan (Trelegy Ellipta) 1 AER IN DAILY [A MED REC NEEDS DONE] OXYCODONE IMMEDIATE RELEASE (Oxycodone) 5 MG PO TIDPRN PRN PAIN 7-10 Ibuprofen (MOTRIN) 600 MG PO Q6HPRN PRN pain ACETAMINOPHEN (Tylenol Extra Strength) 500 MG PO Q6HPRN PRN pain Cephalexin (Keflex) 500 MG PO Q8HR (Kendra Murphy MD) Allergies Allergies Coded Allergies: NO KNOWN ALLERGY (11/20/23) (Kendra Murphy MD) Review of Systems Other All relevant ROS reviewed with patient and negative aside from noted in the HPI (Kendra Murphy MD) Examination Exam Vitals Vital Signs Date Time Temp Pulse Resp B/P B/P Pulse O2 O2 Flow FiO2 Mean Ox Delivery Rate 01/18 1607 94 12 145/92 01/18 1514 98.0 102 14 146/119 133 98 Vitals: Listed above and reviewed by myself General: AOx3, no acute distress. Appears stated age Skin: Warm, dry and intact without rashes or lesions. Appropriate color. Nailbeds pink w/o cyanosis or clubbing. HEENT: Normocephalic, atraumatic. EOM intact, PERRLA, w/o scleral icterus, no signs of conjunctival injection or nystagmus. External ear and ear canal are non-tender and without swelling, tympanic membrane normal in appearance. Nasal mucosa is pink and moist. The nasal septum is midline. Nares are patent bilaterally. Pharynx normal in appearance w/o exudates. Neck midline and w/o tenderness CV: RRR, no murmurs, rubs, or gallops. +S1/S2 normal. Pulses 2+ and equal in all extremities Resp: CTABL, no wheezes, rales, or rhonci. Chest wall is symmetric and without deformity or tenderness. GI: Abdomen soft, nontender to palpation and without distension. +BS and normoactive in all four quadrants. No masses, hepatomegaly, or splenomegaly (more content not included)... Normal [facility] COVID-[address] & [address] [facility] 01-18-2024 FLUAV RNA KESHA+probe Ql (Resp) Not detected Not Detected [facility] Comment on above: Note: Influenza A an d Influenza B negative results should be considered presumptive in samples that have a Detected SARS-CoV-2 result. Consider re-testing with an alternate FDA-approved test if clinically indicated. FLUBV RNA KESHA+probe Ql (Resp) Not detected Not Detected [facility] Comment on above: Note: Influenza A an d Influenza B negative results should be considered presumptive in samples that have a Detected SARS-CoV-2 result. Consider re-testing with an alternate FDA-approved test if clinically indicated. Interpretation and review of laboratory results Abnormal [facility] SARS-CoV-2 (COVID-19) RNA KESHA+probe Ql (Resp) Detected Abnormal Not Detected [facility] Comment on above: Testing was performed using JOSE G Bri SARS-CoV-2 and Influenza A/B nucleic acid assay. This test is a multiplex Real-Time Reverse Transcriptase Polymerase Chain Reaction (RT-PCR)-based in vitro diagnostic test intended for the qualitative detection of nucleic acids from SARS-CoV-2, influenza A, and influenza B in nasopharyngeal and nasal swab specimens for use under the FDA's Emergency Use Authorization (EUA) only. Detected results are indicative of the presence of SARS-CoV-2. Clinical correlation with patient history and other diagnostic information is necessary to determine patient infection status. Positive results do not rule out bacterial infection or co-infection with other pathogens. Fact sheet for Patients: https://www.fda.gov/media/329456/download Fact sheet for Healthcare Providers: https://www.fda.gov/media/230666/download Source .NASOPHARYNGEAL SWAB [facility] Specimen Description .NASOPHARYNGEAL SWAB [facility] Portable XR Chest AP single viewon 01-18-2024 1. Small infiltrate within the right lung base. [facility] EXAMINATION: ONE XRAY VIEW OF THE CHEST 01/18/2024 8:03 am COMPARISON: None. HISTORY: ORDERING SYSTEM PROVIDED HISTORY: covid, cough TECHNOLOGIST PROVIDED HISTORY: Reason for exam:->covid, cough FINDINGS: The cardiac silhouette is within normal limits. There is a small infiltrate seen within the right lung base. The left lung is clear. There is no right or left pleural effusion. [facility] Wilmer Wray MD - 01/18/2024 EXAMINATION: ONE XRAY VIEW OF THE CHEST 01/18/2024 8:03 am COMPARISON: None. HISTORY: ORDERING SYSTEM PROVIDED HISTORY: covid, cough TECHNOLOGIST PROVIDED HISTORY: Reason for exam:->covid, cough FINDINGS: The cardiac silhouette is within normal limits. There is a small infiltrate seen within the right lung base. The left lung is clear. There is no right or left pleural effusion. IMPRESSION: 1. Small infiltrate within the right lung base. [facility] Radiology Study observation (narrative) [facility] Portable XR Chest AP single viewOrdered By: Wilmer Wray on 01-18-2024 [facility] Work Phone: Rapid Strep Screenon 024 Specimen source Nom (Unsp spec) .THROAT SWAB [facility] Strep A, Molecular Negative NEGATIVE [facility] SARS-CoV-2 + Flu A/[facility] 01-17 Influenza A, RT-PCR Not detected Normal [facility] Comment on above: Result Comment: Note : Influenza A and Influenza B negative results should be considered presumptive in samples that have a Detected SARS-CoV-2 result. Consider re-testing with an alternate FDA-approved test if clinically indicated. Performed By: #### D AU, UA #### [address] [place], [place] [id number] Prevention Rn: Darci Castle MD Influenza B, RT-PCR Not detected Normal [facility] Comment on above: Result Comment: Note : Influenza A and Influenza B negative results should be considered presumptive in samples that have a Detected SARS-CoV-2 result. Consider re-testing with an alternate FDA-approved test if clinically indicated. Performed By: #### D LORI, UA #### [address] [place] [address] Prevention Rn: Darci Castle MD SARS-CoV-2 (COVID-19) RNA KESHA+probe Ql (Unsp spec) Detected Abnormal [facility] Comment on above: Result Comment: Testing was performed using JOSE G Bri SARS-CoV-2 and Influenza A/B nucleic acid assay. This test is a multiplex Real-Time Reverse Transcriptase Polymerase Chain Reaction (RT-PCR)-based in vitro diagnostic test intended for the qualitative detection of nucleic acids from SARS-CoV-2, influenza A, and influenza B in nasopharyngeal and nasal swab specimens for use under the FDA's Emergency Use Authorization (EUA) only. Detected results are indicative of the presence of SARS-CoV-2. Clinical correlation with patient history and other diagnostic information is necessary to determine patient infection status. Positive results do not rule out bacterial infection or co-infection with other pathogens. Fact sheet for Patients: https://www.fda.gov/media/399821/download Fact sheet for Healthcare Providers: https://www.fda.gov/media/287082/download Performed By: #### D AU, UA #### [address] [place], [place] [id number] Prevention Rn: Darci Castle MD Source .NASOPHARYNGEAL SWAB Normal [facility] Comment on above: Performed By: #### D AU, UA #### [facility] [address] [place] [address] Prevention Rn: Darci Castle MD Strep Group A, Rapidon 01-17 Strep A, Molecular Negative Normal [facility] Comment on above: Performed By: #### R SAB #### [facility] [address] [place] [address] Prevention Rn: Liseth Doran MD Source .THROAT SWAB Normal [facility] Comment on above: Performed By: #### R SAB #### [facility] [address] [place] [address] Prevention Rn: Liseth Doran MD XR CHEST PORTABLEon 01-18-20 XR CHEST PORTABLE EXAMINATION: ONE XRAY VIEW OF THE CHEST 01/18/2024 8:03 am COMPARISON: None. HISTORY: ORDERING SYSTEM PROVIDED HISTORY: covid, cough TECHNOLOGIST PROVIDED HISTORY: Reason for exam:->covid, cough FINDINGS: The cardiac silhouette is within normal limits. There is a small infiltrate seen within the right lung base. The left lung is clear. There is no right or left pleural effusion. IMPRESSION: 1. Small infiltrate within the right lung base. Interpreted by: Wilmer Wray MD Signed by: Wilmer Wray MD 01/18/24 Final result Normal [facility] Comment on above: Order Comment: Reaso n for exam:->covid, cough ANKLE LEFT-MIN 3 VWSon 01-15 ANKLE LEFT-MIN 3 VWS Name: DB DOAN Phys: Suraj Cevallos MD : 1970 Age: 53 Sex: F Acct: [id number] Loc: SAT Exam Date: 01/16/2024 Status: DEP ER Radiology No: Unit No: [id number] PH: [phone] Diagnosis: L ANKLE PAIN, L KNEE PAIN EXAM: [id number] ANKLE LEFT-MIN 3 VWS Reason For Procedure: Rotated, now has pain STUDY: ANKLE LEFT-MIN 3 VWS CLINICAL INDICATION: Left ankle pain TECHNIQUE: 4 views COMPARISON: December 06. FINDINGS: No acute fracture or dislocation. Ankle mortise congruent. Talar dome intact. Well-defined ossific density adjacent to the tip of the fibula similar to prior study suggesting remote injury. Prior Fracture base of the 5th metatarsal unchanged. IMPRESSION: NO ACUTE FRACTURE SITE: O REPORT SIGNED IN OTHER VENDOR SYSTEM 01/16/2024 Reported By: Brandon Morales DO CC: Technologist: AGUILAR OSMAN, RT/R Transcribed Date/Time: 01/16/2024 (07) Jalousies Installer: NAFISA Printed Date/Time: 01/16/2024 (07) PAGE 1 Signed Report Normal [facility] 01-16-2024 ED [facility] 01/16/24 [place], [place] [address] [id number] DB DOAN None EMERGENCY ROOM REPORT MR [id number] History of Present Illness Date of Service 01/16/24 Provider Jayson Henry MD, Colton MD Chief Complaint Pain, Body Part History of Present Illness Patient is a 53-year-old female with a history of ankylosing spondylitis, left ankle ligamentous injury., Presenting for concern of possibly twisting her ankle and left knee. Patient is concerned because this is a similar mechanism to prior injury. Patient has been wearing a prefashion splint to the left ankle, but states that he does not providing adequate support, perhaps her ankle can still roll. Patient is using a cane , but not crutches. She has been following with Ortho who is apparently scheduled a an MRI for further evaluation of ligamentous injury in the left ankle. Patient complains of chronic pain, even though she takes gabapentin and multiple NSAIDs. Patient has previously been referred to pain clinic, but is uncertain if patient is followed up. She currently denies any symptoms except for back pain, SI pain, knee pain, ankle pain. She goes on to state that she has had multiple issues with different splints and boots. Past Medical/Surgical History : EPILEPSY : Depression : Anxiety : ankilosing spondylisis : TAILBONE FRACTURE Family History Diabetes: none Hypertension: none CHF: none Neurological: dementia Social History Smoking history: Current every day smoker Alcohol: N Drugs: N (Suraj Cevallos MD) Home Medications . Active Scripts Lamotrigine (Lamictal) 150 MG PO DAILY Duloxetine Hcl (Cymbalta) 60 MG PO BID Gabapentin 600 MG PO TID Acetaminophen (Tylenol Extra Strength) 1,000 MG PO Q6HPRN PRN PAIN Hydroxyzine Hcl (Atarax) 50 MG PO BID Fluticasone-Umeclidiniu m-Vilan (Trelegy Ellipta) 1 AER IN DAILY [A MED REC NEEDS DONE] OXYCODONE IMMEDIATE RELEASE (Oxycodone) 5 MG PO TIDPRN PRN PAIN 7-10 Ibuprofen (MOTRIN) 600 MG PO Q6HPRN PRN pain ACETAMINOPHEN (Tylenol Extra Strength) 500 MG PO Q6HPRN PRN pain Cephalexin (Keflex) 500 MG PO Q8HR (Suraj Cevallos MD) Allergies Allergies Coded Allergies: NO KNOWN ALLERGY (11/20/23) (Suraj Cevallos MD) Review of Systems Other Negative except as noted in HPI (Suraj Cevallos MD) Examination Exam Date of Last Tetanus: UNK Constitutional Alert, Oriented X3, Mild Distress, Moderate Distress Head ATNC Eye EOMI Mouth/Throat Oropharynx Normal, Moist Membranes Musculoskeletal No Edema, Normal Pulses, patietn endorses tenderness to the left nee along the medial border. Skin/Breasts Intact, Warm and Dry Neurological Normal Speech, Sensation Intact Psych/Mental Status Alert, Oriented X 3 (Suraj Cevallos MD) Exam Vitals Vital Signs Date Time Temp Pulse Resp B/P B/P Pulse O2 O2 Flow FiO2 Mean Ox Delivery Rate 01/15 0300 98.8 110 20 145/97 118 99 Diagnostic Studies Recent Impressions [facility] - ANKLE LEFT-MIN 3 VWS 01/15 329 Report Impression - Status: SIGNED Entered: 01/16/2024726 IMPRESSION: NO ACUTE FRACTURE SITE: O Impression By: Brandon Baxter DO [facility] - KNEE LEFT 4 VWS OR MORE 01/15 329 Report Impression - Status: SIGNED Entered: 01/16/202418 IMPRESSION: NO FRACTURE SITE: O Impression By: Brandon Baxter DO (Jayson Henry MD) Assessment / Plan, ED Medical Decision Making: Patient is a 53-year-old female with history of ankylosing spondylitis, injury to the left leg ankle. I have ordered x-rays based on patient's description of possible injury. On review of these x-rays with wet read by myself and my attending, we do not believe we see any acute fracture abnormalities. Patient already has follow-up scheduled with orthopedics, who has scheduled an MRI. Patient request pain medication, we have given her an initial dose of 5 mg of Percolone. Patient later is requesting that she be able to leave, and is asking if we can give her a prescription for pain medication for a few days released a couple of take-home doses. My attending is met with the patient, and explained that she does not believe this is suitable for her current ailment, and that the patient should follow-up with pain management. Patient has left the department prior to receiving discharge instructions, and has therefore been marked left without completion of treatment. Condition: Good Referrals: Bob Lees MD: 1-2 Days Micah Ketn MD: 1-2 Days Patient Instructions: DI for Knee Pain Additional Instructions: At this time, your knee x-ray and ankle x-ray do not appear significantly changed from prior studies. We do not believe there is any acute fracture or disloca (more content not included)... Normal [facility] KNEE LEFT 4 VWS OR MOREon KNEE LEFT 4 VWS OR MORE Name: DB DOAN Phys: Suraj Cevallos MD : 1970 Age: 53 Sex: F Acct: [id number] Loc: SAT Exam Date: 01/16/2024 Status: DEP ER Radiology No: Unit No: [id number] PH: [phone] Diagnosis: L ANKLE PAIN, L KNEE PAIN EXAM: [id number] KNEE LEFT 4 VWS OR MORE Reason For Procedure: Rotated, now has pain STUDY: KNEE LEFT 4 VWS OR MORE CLINICAL INDICATION: Left knee injury TECHNIQUE: 4 views COMPARISON: None. FINDINGS: No acute fracture or dislocation. No joint effusion. Minimal patellofemoral compartment degenerative change. Minimal medial compartment joint space loss. IMPRESSION: NO FRACTURE SITE: O REPORT SIGNED IN OTHER VENDOR SYSTEM 01/16/2024 Reported By: Brandon Morales DO CC: Technologist: LIN BULLOCK Transcribed Date/Time: 01/16/2024 (717) Jalousies Installer: NAFISA Printed Date/Time: 01/16/2024 (36) PAGE 1 Signed Report Normal [facility] HAND RIGHT (MIN 3 V)on 01-13 CRHANDR Name: DB DOAN Phys: DEYSI NOLASCO JR, DO : 1970 Age: 53 Sex: F Acct: [id number] Loc: ED Exam Date: 01/14/2024 Status: [facility] ER Radiology No: [id number] Unit No: [id number] EXAM# TYPE/EXAM RESULT [id number] EDRAD/HAND RIGHT (MIN 3 V) SEE REPORT INDICATION: Right hand pain and swelling to the fourth and fifth metacarpals after punching a wall. TECHNIQUE: Three view(s) of the right hand. COMPARISON: XR hand 04/23/2023. FINDINGS: There is no displaced fracture. The alignment is anatomic. No soft tissue abnormality is seen. IMPRESSION: No acute osseous abnormality identified. Signed by Robel Dumont [facility] [address] [place] [id number] REPORT SIGNED IN OTHER VENDOR SYSTEM 01/14/2024 Reported By: ROBEL DUMONT M.D. CC: MARIA ELENA MONTALVO Technologist: ASAEL MORALES Transcribed Date/Time: 01/14/2024 (710) Jalousies Installer: BRUCE Printed Date/Time: 01/14/2024 (334) PAGE 1 Signed Report Normal [facility] XR ANKLE MINIMUM 3 VIEWS LEF Ton 01-13-2024 XR ANKLE MINIMUM 3 VIEWS LEFT ORIGINAL EXAMINATION: THREE XRAY VIEWS OF THE LEFT ANKLE 01/13/2024 7:28 am COMPARISON: Left ankle x-ray on 12/22/2023 HISTORY: ORDERING SYSTEM PROVIDED HISTORY: Reason for Exam: pain Twisting injury yesterday. FINDINGS: There is no acute fracture or dislocation of the left ankle. Accessory ossicle adjacent to the lateral malleolus is stable. Alignment of the ankle mortise is normal. Talar dome is normal in contour. There is no fracture of the calcaneus. IMPRESSION: No acute fracture or dislocation of the left ankle. Interpreted by: Krzysztof Mehta MD Preliminary Report By: Krzysztof Mehta MD Electronically signed By Krzysztof Mehta MD Dictated Date: 01/13/2024 7:37:18 AM Prelim Date: 01/13/2024 7:38:36 AM Sign Date: 01/13/2024 7:38:36 AM Ordering Provider: PAULINA THORPE [facility] XR Ankle left 3 plus viewon 01-13-2024 XR Ankle left 3 plus view LEFT FOOT AND ANKLE: CLINICAL INDICATION: fall, pain. TECHNIQUE: AP, Lat, Oblique foot plus AP, lateral and oblique ankle COMPARISON: None. FINDINGS: Mild soft tissue edema of the lateral ankle. There is no evidence for fracture or dislocation. Well corticated ossicles or sequela of remote trauma along the medial malleolus and fifth metatarsal base. IMPRESSION: No acute osseous abnormality of the left foot or ankle. Report Dictated on Authenticated by: Gallo Whitlock On: 01/13/2024 06:01 Read by: GALLO WHITLOCK MD, MD Date: 01/13/2024 06:01 [facility] XR Foot Left complete 3 plus viewson 01-13-2024 XR Foot Left complete 3 plus views LEFT FOOT AND ANKLE: CLINICAL INDICATION: fall, pain. TECHNIQUE: AP, Lat, Oblique foot plus AP, lateral and oblique ankle COMPARISON: None. FINDINGS: Mild soft tissue edema of the lateral ankle. There is no evidence for fracture or dislocation. Well corticated ossicles or sequela of remote trauma along the medial malleolus and fifth metatarsal base. IMPRESSION: No acute osseous abnormality of the left foot or ankle. Report Dictated on Authenticated by: Gallo Whitlock On: 01/13/2024 06:01 Read by: GALLO WHITLOCK MD, MD Date: 01/13/2024 06:01 [facility] XR HAND RIGHT (MIN 3 VIEWS)o n 01-13-2024 XR HAND RIGHT (MIN 3 VIEWS) EXAMINATION: THREE XRAY VIEWS OF THE RIGHT HAND 01/13/2024 8:48 am COMPARISON: None. HISTORY: ORDERING SYSTEM PROVIDED HISTORY: ro fx TECHNOLOGIST PROVIDED HISTORY: Reason for exam:->ro fx FINDINGS: Three views the right hand were obtained. There is no acute fracture dislocation right hand. 6, there is no fracture of the 5th metacarpal. The 5th metacarpophalangeal joint is intact and unremarkable. The carpal bones are normally aligned Under lateral view minimal soft tissue swelling is noted adjacent to the 5th metacarpophalangeal joint. IMPRESSION: 1. There is no acute fracture or dislocation of the right hand 2. Minimal soft tissue swelling adjacent to the 5th metacarpophalangeal joint. Interpreted by: Wilmer Wray MD Signed by: Wilmer Wray MD 01/13/24 Final result Normal [facility] Comment on above: Order Comment: Reaso n for exam:->ro fx XR Hand - right 3 Viewson 1. There is no acute fracture or dislocation of the right hand 2. Minimal soft tissue swelling adjacent to the 5th metacarpophalangeal joint. [facility] EXAMINATION: THREE XRAY VIEWS OF THE RIGHT HAND 01/13/2024 8:48 am COMPARISON: None. HISTORY: ORDERING SYSTEM PROVIDED HISTORY: ro fx TECHNOLOGIST PROVIDED HISTORY: Reason for exam:->ro fx FINDINGS: Three views the right hand were obtained. There is no acute fracture dislocation right hand. 6, there is no fracture of the 5th metacarpal. The 5th metacarpophalangeal joint is intact and unremarkable. The carpal bones are normally aligned Under lateral view minimal soft tissue swelling is noted adjacent to the 5th metacarpophalangeal joint. [facility] Wilmer Wray MD - 01/13/2024 EXAMINATION: THREE XRAY VIEWS OF THE RIGHT HAND 01/13/2024 8:48 am COMPARISON: None. HISTORY: ORDERING SYSTEM PROVIDED HISTORY: ro fx TECHNOLOGIST PROVIDED HISTORY: Reason for exam:->ro fx FINDINGS: Three views the right hand were obtained. There is no acute fracture dislocation right hand. 6, there is no fracture of the 5th metacarpal. The 5th metacarpophalangeal joint is intact and unremarkable. The carpal bones are normally aligned Under lateral view minimal soft tissue swelling is noted adjacent to the 5th metacarpophalangeal joint. IMPRESSION: 1. There is no acute fracture or dislocation of the right hand 2. Minimal soft tissue swelling adjacent to the 5th metacarpophalangeal joint. [facility] Study observation (narrative) [facility] XR Hand - right 3 ViewsOrder ed By: Wilmer Wray on 01-13-2024 [facility] Work Phone: XR Hand Right 3 plus viewson 01-13-2024 XR Hand Right 3 plus views RIGHT HAND: CLINICAL INDICATION: fall, pain. TECHNIQUE: PA, Lat, and oblique COMPARISON: None. FINDINGS: No focal soft tissue abnormalities. No acute fractures or dislocations. Mild osteoarthritic changes. IMPRESSION: No acute fractures or dislocations of the right hand. Report Dictated on Authenticated by: Gallo Whitlock On: 01/13/2024 05:57 Read by: GALLO WHITLOCK MD, MD Date: 01/13/2024 05:57 Normal [facility] Anion Gap SerPl-sCncOrdered By: Lorne Ruvalcaba on 01-04-2024 Anion gap [Moles/Vol] 9.0 mmol/L 0-16 [facility] Appearance UrOrdered By: Fan Ruvalcaba on 01-04-2024 Appearance (U) CLEAR CLEAR [facility] BASIC METABOLICon 01-04-2024 Anion gap [Moles/Vol] 9.0 mmol/L Normal 0-16 [facility] Comment on above: Performed By: #### C HEM7 #### [facility] [address] [address] Calcium [Mass/Vol] 9.8 mg/dL Normal 8.5-10.1 [facility] Comment on above: Performed By: #### C HEM7 #### [facility] [address] [address] Chloride [Moles/Vol] 107 mmol/L Normal 98-107 [facility] Comment on above: Performed By: #### C HEM7 #### [facility] [address] [address] CO2 [Moles/Vol] 30 mmol/L Normal 21-32 [facility] Comment on above: Result Comment: TCO2 test measures total amount of CO2 in the blood, which occurs mostly in the form of bicarbonate (HCO3). Performed By: #### C HEM7 #### [facility] [address] [address] Creatinine [Mass/Vol] 0.63 mg/dL Normal 0.55-1.02 [facility] Comment on above: Performed By: #### C HEM7 #### [facility] [address] [address] GFR/1.73 sq M.predicted among non-blacks MDRD (S/P/Bld) [Vol rate/Area] 107 mL/min/{1.73_m2} Normal >60 [facility] Comment on above: Result Comment: Aver age GFR for 50-59 years old = 93 ml/min/1.73 sq.m Chronic Kidney Disease - GFR generally <60 ml/min/1.73 sq.m Kidney Failure - GFR generally <15 ml/min/1.73 sq.m The estimated glomerular filtration rate (eGFR) was calculated using the 2020 CKD-EPI eGFR creatinine equation, which does not include race as a factor. This equation is validated in individuals 18 years of age and older. Accurate estimation of GFR requires stable day-to-day creatinine. Creatinine-based eGFR is less accurate in patients with extremes of muscle mass, restriction of dietary protein, ingestion of creatine, extra-renal metabolism of creatinine, or treatment with medications that affect renal tubular creatinine secretion. The eGFR is normalized to a body surface area of 1.73 square meters. GFR Categories in Chronic Kidney Disease (CKD) GFR GFR (mL/min/1.73 Category: square meters): Interpretation: G1 90 or greater Normal or high* G2 60-89 Mild decrease* G3a 45-59 Mild to moderate decrease G3b 30-44 Moderate to severe decrease G4 15-29 Severe decrease G5 14 or less Kidney failure *In the absence of evidence of kidney damage, neither GFR category G1 nor G2 fulfill the criteria for CKD (Kidney Int Suppl 2013;3:1-150) The new eGFRcr equation has similar overall performance characteristics to older equations. For most patients the previous eGFR result will be similar. However, for some, the values may differ by more than 10% particularly at higher values of eGFRcr and for younger patients. Please go to eGFR calculator/National Kidney Foundation to compare this result with a previously calculated eGFR based on older equations. Performed By: #### C HEM7 #### [facility] [address] [address] Glucose [Mass/Vol] 82 mg/dL Normal 70-110 [facility] Comment on above: Result Comment: Fals eligio depressed or falsely elevated results may occur on samples drawn from patients taking Sulfasalazine and Sulfapyridine. ADA Guidelines for Diabetes: Fasting glucose <100 = Normal fasting glucose. Fasting glucose 100-125 = Impaired fasting glucose, also referred to as pre-diabetes. Fasting glucose >125 = Provisional diagnosis of diabetes. Diagnosis must be confirmed by repeat testing on a different day. Performed By: #### C HEM7 #### [facility] [address] [address] Potassium [Moles/Vol] 4.0 mmol/L Normal 3.5-5.1 [facility] Comment on above: Performed By: #### C HEM7 #### [facility] [address] [address] Sodium [Moles/Vol] 142 mmol/L Normal 136-145 [facility] Comment on above: Performed By: #### C HEM7 #### [facility] [address] [address] Urea nitrogen [Mass/Vol] 7 mg/dL Normal 7-18 [facility] Comment on above: Performed By: #### C HEM7 #### [facility] [address] [place] [address] Urea nitrogen/Creatinine [Mass ratio] 11.2 mg/mg Normal 0-30 [facility] Comment on above: Performed By: #### C HEM7 #### [facility] [address] [place] [address] BUN SerPl-mCncOrdered By: Shara Ruvalcaba on 01-04-2024 Urea nitrogen [Mass/Vol] 7 mg/dL 7-18 [facility] BUN/creat SerPl-mRtoOrdered By: Lorne Ruvalcaba on 01-04-2024 Urea nitrogen/Creatinine [Mass ratio] 11.2 mg/mg 0-30 [facility] Basophils Auto (Bld) [#/Vol] Ordered By: Lorne Ruvalcaba on 01-04-2024 Basophils (Bld) [#/Vol] 0.00 10*3/uL 0.0-0.2 [facility] Basophils/100 WBC Auto (Bld) Ordered By: Lorne Jordon on 01-04-2024 Basophils/100 WBC (Bld) 0.2 % 0.0-1.5 [facility] Bile Ac Ur QlOrdered By: Fan greta Jordon on 01-04-2024 Bile acid Ql (U) Negative NEG [facility] CBC AUTO DIFF (REFLEX MANUAL )on 01-04-2024 BASOPHIL # 0.00 x10 3/uL Normal 0.0-0.2 [facility] Comment on above: Performed By: #### C BCAD ####[address] [address] BASOPHIL % 0.2 % Normal 0.0-1.5 [facility] Comment on above: Performed By: #### C BCAD ####[address] [address] EOSINOPHIL % 2.0 % Normal 0.0-10.0 [facility] Comment on above: Performed By: #### C BCAD ####[address] [address] LYMPHOCYTE # 1.30 x10 3/uL Normal 1.0-4.8 [facility] Comment on above: Performed By: #### C BCAD ####[address] [address] LYMPHOCYTE % 17.7 % Normal 13.0-47.0 [facility] Comment on above: Performed By: #### C BCAD ####[address] [address] MEAN SHELLY HGB CONC 34.5 g/dl Normal 31.0-37.0 [facility] Comment on above: Performed By: #### C BCAD ####[address] [address] MEAN CORPUSCULAR HGB 32.0 pg Normal 26.0-34.0 [facility] Comment on above: Performed By: #### C BCAD ####[address] [address] MEAN CORPUSCULAR VOLUME 92.8 fl Normal 78-102 [facility] Comment on above: Performed By: #### C BCAD ####[address] [address] MEAN PLATELET VOLUME 6.1 fl Low 7.5-10.7 [facility] Comment on above: Performed By: #### C BCAD ####[address] [address] MONOCYTE # 0.70 x10 3/uL Normal 0.0-1.0 [facility] Comment on above: Performed By: #### C BCAD ####[address] [address] MONOCYTE % 9.7 % Normal 0.0-10.0 [facility] Comment on above: Performed By: #### C BCAD ####[address] [address] NEUT# 5.30 x10 3/uL Normal 1.8-7.7 [facility] Comment on above: Performed By: #### C BCAD ####[address] [address] NEUTROPHIL % 70.4 % Normal 40.0-80.0 [facility] Comment on above: Performed By: #### C BCAD ####[address] [address] PLATELET 385 x10 3/uL High 150-350 [facility] Comment on above: Performed By: #### C BCAD ####[address] [address] RED BLOOD CELL COUNT 4.16 x10 6/uL Normal 4.00-5.20 [facility] Comment on above: Performed By: #### C BCAD ####[address] [address] RED CELL WIDTH 12.9 % Normal 11.5-14.5 [facility] Comment on above: Performed By: #### C BCAD ####[address] [address] TOTAL EO 0.20 x10 3/uL Normal 0-1.0 [facility] Comment on above: Performed By: #### C BCAD ####[address] [address] WHITE BLOOD CELL COUNT 7.5 x10 3/uL Normal 4.5-11.0 [facility] Comment on above: Performed By: #### C BCAD ####[address] [address] CO2 SerPl-sCncOrdered By: Shara Ruvalcaba on 01-04-2024 CO2 [Moles/Vol] 30 mmol/L 21-32 [facility] Comment on above: TCO2 test measures t otal amount of CO2 in the blood, whichoccurs mostly in the form of bicarbonate (HCO3). Calcium SerPl-mCncOrdered By : Lorne Solimanrocky on 01-04-2024 Calcium [Mass/Vol] 9.8 mg/dL 8.5-10.1 [facility] Chloride SerPl-sCncOrdered B y: Lorne Ghrocky on 01-04-2024 Chloride [Moles/Vol] 107 mmol/L 98-107 [facility] Color UrOrdered By: Lorne krishna on 01-04-2024 Color (U) STRAW YELLOW [facility] Creat SerPl-mCncOrdered By: Lorne Jordon on 01-04-2024 Creatinine [Mass/Vol] 0.63 mg/dL 0.55-1.02 [facility] EDon 01-04-2024 ED [facility] SYSTE M 01/04/24 [place], [place] [address] [id number] DB DOAN None EMERGENCY ROOM REPORT MR [id number] History of Present Illness Date of Service 01/04/24 Provider Macario Kincaid MD Chief Complaint Back Pain, Middle History of Present Illness 53-year-old female with past medical history of ankylosing spondylitis, depression, epilepsy who presented to the ED with chief complaints of pain in her left shoulder, left ankle, lower back, left toe since 1 week. The patient believes the patient is experiencing a flareup of her ankylosing spondylitis. She describes her pain in the left shoulder as stabbing pain but there is no problem with the movement, there was no history of any trauma. She took a muscle relaxer 1 and half hour ago before coming to the ER which she claims did help her with the pain. She has got wound in her left toe at the nail fold for which the patient had used peroxide yesterday to clean out the wound. She has got swelling and splitting present in the nail fold which she says were opened and on healing phase. According to the patient she was supposed to get a nerve block yesterday but was canceled due to reasons of work. She has been following in the [facility] for her ankylosing spondylitis treatment. Past Medical/Surgical History : EPILEPSY : Depression : Anxiety : ankilosing spondylisis : TAILBONE FRACTURE Family History Diabetes: none Hypertension: none CHF: none Neurological: dementia Social History Smoking history: Current every day smoker Alcohol: N Drugs: N (Lorne Ruvalcaba MD) Home Medications . Active Scripts Lamotrigine (Lamictal) 150 MG PO DAILY Duloxetine Hcl (Cymbalta) 60 MG PO BID Gabapentin 600 MG PO TID Acetaminophen (Tylenol Extra Strength) 1,000 MG PO Q6HPRN PRN PAIN Hydroxyzine Hcl (Atarax) 50 MG PO BID Fluticasone-Umeclidiniu m-Vilan (Trelegy Ellipta) 1 AER IN DAILY [A MED REC NEEDS DONE] OXYCODONE IMMEDIATE RELEASE (Oxycodone) 5 MG PO TIDPRN PRN PAIN 7-10 Ibuprofen (MOTRIN) 600 MG PO Q6HPRN PRN pain ACETAMINOPHEN (Tylenol Extra Strength) 500 MG PO Q6HPRN PRN pain Cephalexin (Keflex) 500 MG PO Q8HR (Lorne Ruvalcaba MD) Allergies Allergies Coded Allergies: NO KNOWN ALLERGY (11/20/23) (Lorne Ruvalcaba MD) Review of Systems Other Except as noted in the HPI, all remaining systems are reviewed and found to be negative. (Lorne Ruvalcaba MD) Examination Exam Vitals Vital Signs Date Time Temp Pulse Resp B/P B/P Pulse O2 O2 Flow FiO2 Mean Ox Delivery Rate 01/03 0850 106 18 134/92 99 01/03 0746 98.0 106 18 134/92 108 99 01/03 0726 98.0 106 18 134/92 108 99 Room Air General Appearance: Alert and oriented, mild distress. HEENT: No scleral icterus, no thyromegaly, airway normal. Jugular Venous Distension: No JVD, no hepato-jugular reflex. Lungs: Clear to auscultation. Heart: Regular rate. Abdomen: Normal bowel sounds, soft, non-tender. Extremities: Patient has wound present in the right great toe nail fold on the medial side. Paronychia. Tenderness present all over the body. Especially in the shoulder, elbows, ankles., Lower back Neurological: Alert and oriented x3. Mental Status: Cooperative. Musculoskeletal: Full ROM. Skin: No skin disruptions, no rashes. Date of Last Tetanus: UNK Diagnostic Studies Recent Impressions [facility] EMERGENCY/RADIOLOGY - SHOULDER LEFT-MIN 2 VWS 01/04 0807 Report Impression - Status: SIGNED Entered: 01/04/2024 [id number] IMPRESSION: INTACT SKELETAL STRUCTURES AND JOINT SPACES. SMALL FOCUS OF CALCIFICATION ADJACENT TO THE GREATER TUBEROSITY THAT MAY BE THE SEQUELA OF TENDINITIS. SITE O Impression By: WILL/Homer Owens M.D. Laboratory Tests 01/03 753 Chemistry Sodium (136 - 145 MMOL/L) 142 Potassium (3.5 - 5.1 MMOL/L) 4.0 Chloride (98 - 107 MMOL/L) 107 CO2 (Enzymatic) (21 - 32 MMOL/L) 30 Anion Gap (0 - 16) 9.0 BUN (7 - 18 MG/DL) 7 Creatinine (0.55 - 1.02 MG/DL) 0.63 Est GFR (CKD-EPI 2020) (>60) 107 BUN/Creatinine Ratio (0 - 30) 11.2 Glucose (70 - 110 MG/DL) 82 Calcium (8.5 - 10.1 MG/DL) 9.8 Hematology WBC (4.5 - 11.0 x10 3/uL) 7.5 RBC (4.00 - 5.20 x10 6/uL) 4.16 Hgb (12.0 - 16.0 g/dl) 13.3 Hct (36 - 46 %) 38.6 MCV (78 - 102 fl) 92.8 MCH (26.0 - 34.0 pg) 32.0 MCHC (31.0 - 37.0 g/dl) 34.5 RDW (11.5 - 14.5 %) 12.9 Plt Count (150 - 350 x10 3/uL) 385 MPV (7.5 - 10.7 fl) 6.1 Eos # (Auto) (0 - 1.0 x10 3/uL) 0.20 Baso # (Auto) (0.0 - 0.2 x10 3/uL) 0.00 Neutrophils % (40.0 - 80.0 %) 70.4 Lymphocytes % (13.0 - 47.0 %) 17.7 Monocytes % (0.0 - 10.0 %) 9.7 Eosinophils % (0.0 - 10.0 %) 2.0 Basophils % (0.0 - 1.5 %) 0.2 Neutrophils # (1.8 - 7.7 x10 3/uL) 5.30 Lymphocytes # (1.0 - 4.8 x10 3/uL) 1.30 Monocytes # (0.0 - 1.0 x10 3/uL) 0.70 Urines (more content not included)... Normal [facility] Eosinophils Manual cnt (Bld) [#/Vol]Ordered By: Lorne Ruvalcaba on 01-04-2024 Eosinophils (Bld) [#/Vol] 0.20 10*3/uL 0-1.0 [facility] Glucose SerPl-mCncOrdered By : Lorne Ruvalcaba on 01-04-2024 Glucose [Mass/Vol] 82 mg/dL 70-110 [facility] Comment on above: Falsely depressed or falsely elevated results may occur onsamples drawn from patients taking Sulfasalazine andSulfapyridine. ADA Guidelines for Diabetes:Fasting glucose <100 = Normal fasting glucose.Fasting glucose 100-125 = Impaired fasting glucose, also referred to as pre-diabetes.Fasting glucose >125 = Provisional diagnosis of diabetes. Diagnosis must be confirmed by repeat testing on a different day. Glucose Ur Ql Strip.autoOrde red By: Lorne Ruvalcaba on 01-04-2024 Glucose Auto test strip Ql (U) Negative NEG [facility] Hgb Bld-mCncOrdered By: Clare Unger on 01-04-2024 Hemoglobin (Bld) [Mass/Vol] 13.3 g/dL 12.0-16.0 [facility] Hgb Ur Ql Strip.autoOrdered By: Lorne Ruvalcaba on 01-04-2024 Hemoglobin Auto test strip Ql (U) Negative [facility]G [facility] Ketones Ur Ql Strip.autoOrde red By: Lorne Ruvalcaba on 01-04-2024 Ketones Auto test strip Ql (U) Negative NEG [facility] Laboratory - Chemistry and C hemistry - challengeOrdered By: Lorne Ruvalcaba on 01-04-2024 GFR/1.73 sq M.predicted MDRD (S/P/Bld) [Vol rate/Area] 107 mL/min/{1.73_m2} >60 [facility] Comment on above: Average GFR for 50-5 9 years old = 93 ml/min/1.73 sq.mChronic Kidney Disease - GFR generally <60 ml/min/1.73 sq.mKidney Failure - GFR generally <15 ml/min/1.73 sq.m The estimated glomerular filtration rate (eGFR) wascalculated using the 2020 CKD-EPI eGFR creatinine equation,which does not include race as a factor. This equation isvalidated in individuals 18 years of age and older. Accurateestimation of GFR requires stable day-to-day creatinine.Creatinine-based eGFR is less accurate in patients withextremes of muscle mass, restriction of dietary protein,ingestion of creatine, extra-renal metabolism of creatinine,or treatment with medications that affect renal tubularcreatinine secretion. The eGFR is normalized to a bodysurface area of 1.73 square meters. GFR Categories in Chronic Kidney Disease (CKD) GFR GFR (mL/min/1.73Category: square meters): Interpretation:G1 90 or greater Normal or high*G2 60-89 Mild decrease*G3a 45-59 Mild to moderate [id number] 30-44 Moderate to severe decreaseG4 15-29 Severe decreaseG5 14 or less Kidney failure*In the absence of evidence of kidney damage, neither GFRcategory G1 nor G2 fulfill the criteria for CKD (Kidney IntSuppl 2013;3:1-150) The new eGFRcr equation has similar overall performancecharacteristics to older equations. For most patients theprevious eGFR result will be similar. However, for some, thevalues may differ by more than 10% particularly at highervalues of eGFRcr and for younger patients. Please go to eGFRcalculator/National Kidney Foundation to compare this resultwith a previously calculated eGFR based on older equations. Laboratory - Hematology and Cell countsOrdered By: Lorne Ruvalcaba on 01-04-2024 Eosinophils/100 WBC (Bld) 2.0 % 0.0-10.0 [facility] Erythrocyte distribution width (RBC) [Ratio] 12.9 % 11.5-14.5 [facility] Hematocrit Auto (Bld) [Pure volume fraction] 38.6 36-46 [facility] Lymphocytes/100 WBC (Bld) 17.7 % 13.0-47.0 [facility] Monocytes/100 WBC (Bld) 9.7 % 0.0-10.0 [facility] Neutrophils/100 WBC (Bld) 70.4 % 40.0-80.0 [facility] Platelet mean volume (Bld) [Entitic vol] 6.1 fL 7.5-10.7 [facility] Lymphocytes Auto (Bld) [#/Vo l]Ordered By: Lorne Ruvalcaba on 01-04-2024 Lymphocytes (Bld) [#/Vol] 1.30 10*3/uL 1.0-4.8 [facility] MCH Auto (RBC) [Entitic mass ]Ordered By: Lorne Ruvalcaba on 01-04-2024 MCH (RBC) [Entitic mass] 32.0 pg 26.0-34.0 [facility] MCHC Auto (RBC) [Mass/Vol]Or dered By: Lorne Ruvalcaba on 01-04-2024 MCHC (RBC) [Mass/Vol] 34.5 g/dL 31.0-37.0 [facility] MCV Auto (RBC) [Entitic vol] Ordered By: Lorne Ruvalcaba on 01-04-2024 MCV (RBC) [Entitic vol] 92.8 fL 78-102 [facility] Monocytes Auto (Bld) [#/Vol] Ordered By: Lorne Ruvalcaba on 01-04-2024 Monocytes (Bld) [#/Vol] 0.70 10*3/uL 0.0-1.0 [facility] Neutrophils Auto (Bld) [#/Vo l]Ordered By: Lorne Ruvalcaba on 01-04-2024 Neutrophils (Bld) [#/Vol] 5.30 10*3/uL 1.8-7.7 [facility] Nitrite Ur Ql Strip.autoOrde red By: Lorne Jordon on 01-04-2024 Nitrite Auto test strip Ql (U) Negative NEG [facility] No Panel InformationOrdered By: Lorne Ruvalcaba on 01-04-2024 Urine Ascorbic Acid Level Negative NEG [facility] Platelet # BldOrdered By: Shara blair Jordon on 01-04-2024 Platelets (Bld) [#/Vol] 385 10*3/uL 150-350 [facility] Potassium SerPl-sCncOrdered By: Lorne Ruvalcaba on 01-04-2024 Potassium [Moles/Vol] 4.0 mmol/L 3.5-5.1 [facility] Prot Ur Ql Strip.autoOrdered By: Lorne Ruvalcaba on 01-04-2024 Protein Auto test strip Ql (U) Negative NEG [facility] RBC Auto (Bld) [#/Vol]Ordere d By: Lorne Ruvalcaba on 01-04-2024 RBC (Bld) [#/Vol] 4.16 10*6/uL 4.00-5.20 [facility] ROUTINE URINE WITH RFLX CULT on 01-04-2024 Appearance (U) CLEAR Normal CLEAR [facility] [place] Comment on above: Performed By: #### U RREFLEX ####[address] [address] Color (U) STRAW Abnormal YELLOW [facility] Comment on above: Performed By: #### U RREFLEX ####[address] [address] Glucose Ql (U) Negative Normal NEG [facility] [place] Comment on above: Performed By: #### U RREFLEX ####[address] [address] Nitrite Ql (U) Negative Normal NEG [facility] [place] Comment on above: Performed By: #### U RREFLEX ####[address] [address] pH (U) 7.0 [pH] Normal 4.6-8.0 [facility] Comment on above: Performed By: #### U RREFLEX ####[address] [address] Protein Ql (U) Negative Normal NEG [facility] Comment on above: Performed By: #### U RREFLEX ####[address] [address] Specific gravity (U) [Rel density] 1.003 Normal 1.002-1.030 [facility] Comment on above: Performed By: #### U RREFLEX ####[address] [address] URINE ASCORBIC ACID Negative Normal NEG [facility] Comment on above: Performed By: #### U RREFLEX ####[address] [address] URINE BILE Negative Normal NEG [facility] Comment on above: Performed By: #### U RREFLEX ####[address] [address] URINE HEMOGLOBIN Negative Normal NEG [facility] Comment on above: Performed By: #### U RREFLEX ####[address] [address] URINE KETONE Negative Normal NEG [facility] Comment on above: Performed By: #### U RREFLEX ####[address] [address] URINE LEUKOCYTES Negative Normal NEG [facility] Comment on above: Performed By: #### U RREFLEX ####[address] [address] Urobilinogen (U) [Mass/Vol] Negative Normal <2.0 [facility] Comment on above: Performed By: #### U RREFLEX ####[facility] [address] [place] [address] SHOULDER LEFT-MIN 2 VWSon SHOULDER LEFT-MIN 2 VWS Name: DB DOAN Phys: Lorne Ruvalcaba MD : 1970 Age: 53 Sex: F Acct: [id number] Loc: SAT Exam Date: 01/04/2024 Status: REG ER Radiology No: Unit No: [id number] PH: [phone] Diagnosis: BACK PAIN EXAM: [id number] SHOULDER LEFT-MIN 2 VWS Reason For Procedure: pain in left shoulder LEFT SHOULDER - 3 VIEWS: CLINICAL INDICATION: Pain/no known recent injury. COMPARISON: None. IMPRESSION: INTACT SKELETAL STRUCTURES AND JOINT SPACES. SMALL FOCUS OF CALCIFICATION ADJACENT TO THE GREATER TUBEROSITY THAT MAY BE THE SEQUELA OF TENDINITIS. SITE O REPORT SIGNED IN OTHER VENDOR SYSTEM 01/04/2024 Reported By: Homer Chamorro M.D. CC: Technologist: GERMAN JULIAN, RT/Jennifer Transcribed Date/Time: 01/04/2024 (0849) Jalousies Installer: NAFISA Printed Date/Time: 01/04/2024 (0849) PAGE 1 Signed Report Normal [facility] Sodium SerPl-sCncOrdered By: Lorne Ruvalcaba on 01-04-2024 Sodium [Moles/Vol] 142 mmol/L 136-145 [facility] Specific gravity Auto test s trip (U) [Rel density]Ordered By: Lorne Ruvalcaba on 01-04-2024 Specific gravity (U) [Rel density] 1.003 1.002-1.030 [facility] Urobilinogen Test strip Ql ( U)Ordered By: Lorne Ruvalcaba on 01-04-2024 Urobilinogen Ql (U) Negative <2.0 [facility] WBC Auto (Bld) [#/Vol]Ordere d By: Lorne Ruvalcaba on 01-04-2024 WBC (Bld) [#/Vol] 7.5 10*3/uL 4.5-11.0 [facility] WBC Ur Ql AutoOrdered By: Shara Ruvalcaba on 01-04-2024 WBC Auto Ql (U) Negative NEG [facility] pH Auto test strip (U)Ordere d By: Lorne Ruvalcaba on 01-04-2024 pH (U) 7.0 [pH] 4.6-8.0 [facility] CNPNon 12-31-2023 CNPN Telephone (AGSPINE3) DB DOAN ([id number]) 1970 F Date Time Provider Department 12/31/23 JOCELYNE ALBERT AGSPINE3 During your visit today, we recorded the following information about you: Db Chavez 12/31/2023 12:20 PM Signed ----- Message from Marie Stanton sent at 12/31/2023 12:14 PM EDT ----- Regarding: Spine AND Pain / Jocelyne Albert) / Procedure / InjectionCANCEL-RESCHED ULE Contact: Spine AND Pain / Jocelyne Albert) / Procedure / Injection CANCEL-RESCHEDULE Patient has been identified by name and Date of (Y/N): y Patient: Db Doan Date of : 1970 Provider for this encounter: Dr Albert Reason for the call/escalation: needs to cancel/reschedule 01/03/24 and 01/17/24 procedures w/ Dr Albert. They should be on the alternate Fridays Person calling if other than patient: n/a Return call to if other than patient: n/a Best contact number: [phone] Thank you, Marie Greco December 31, 2023 12:16 PM Brandy Samuel 12/31/2023 2:05 PM Signed LVM with patient to call back/reschedule her procedures. Brandy Hoffman 01/01/2024 11:18 AM Signed LVM with patient to call back/reschedule her MBBs and VV follow ups. Brandy Samuel Allergies As of Date: 12/31/2023 (No Known Allergies) Date Reviewed: 12/19/2023 Reviewed by: Bayron Fields APRN.TECHNICAL APPLICATIONS SPECIALIST - Fully Assessed Reason for Visit: Returning Patient's Call [[phone]] Prescriptions as of 01/01/2024 - DULoxetine (CYMBALTA) 60 mg capsule Take 1 capsule by mouth two times a day. - cyclobenzaprine (FLEXERIL) 10 mg tablet Take 10 mg by mouth at bedtime as needed (muscle spasms). - gabapentin (NEURONTIN) 600 mg tablet Take 600 mg by mouth three times a day. - HYDROXYZINE HCL ORAL Take by mouth once daily as needed. Unknown dosage - TRELEGY ELLIPTA 200-62.5-25 mcg inhalation powder inhale 1 puff once daily - lamoTRIgine (LAMICTAL) 100 mg tablet Take 1 tablet by mouth twice daily. Problem List As Of Date 12/31/2023 Noted Resolved Neck pain, chronic [M54.2, G89.29] 10/28/2014 Arm pain, diffuse [M79.603] 10/28/2014 Bilateral low back pain with left-sided sciatic*10/28/2014 Leg pain, diffuse [M79.606] 10/28/2014 Generalized anxiety disorder [F41.1] 10/28/2014 DDD (degenerative disc disease), lumbar [M51.36*12/03/2018 Sprain or strain of cervical spine [[id number]] 07/16/2014 Sacroiliitis (HCC) [M46.1] 05/02/2022 Primary osteoarthritis of left hip [M16.12] 01/08/2019 Lymphadenopathy [R59.1] 06/30/2020 Disorder of sacrum [M53.3] 01/08/2019 Centrilobular emphysema (HCC) [J43.2] 03/23/2022 Brachial neuritis or radiculitis [M54.12] 08/14/2011 Anxiety attack [F41.0] 09/16/2014 Syncope and collapse determined by examination *10/22/2023 Fibromyalgia [M79.7] 10/22/2023 PTSD (post-traumatic stress disorder) [F43.10] 10/22/2023 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*10/23/2023 Syncope and collapse [R55] 10/23/2023 Encounter Status:Closed by DB CHAVEZ on 12/31/23 Normal [facility] CBC with Auto Differentialon 12-29-2023 Basophils (Bld) [#/Vol] 0.01 10*3/uL [facility] Basophils/100 WBC (Bld) 0 % 0.0 - 2.0 % [facility] Eosinophils (Bld) [#/Vol] 0.00 10*3/uL Low [facility] Eosinophils/100 WBC (Bld) 0 % 0 - 6 % [facility] Erythrocyte distribution width (RBC) [Ratio] 12.1 % 11.5 - 15.0 % [facility] Hematocrit (Bld) [Volume fraction] 36.8 % 34.0 - 48.0 % [facility] Hemoglobin (Bld) [Mass/Vol] 13.0 g/dL 11.5 - 15.5 g/dL [facility] Immature granulocytes (Bld) [#/Vol] 0.03 10*3/uL [facility] Immature granulocytes/100 WBC (Bld) 0 % 0.0 - 5.0 % [facility] Interpretation and review of laboratory results Abnormal [facility] Lymphocytes/100 WBC (Bld) 20 % 20.0 - 42.0 % [facility] Lymphocytes/100 WBC (Bld) 1.81 % [facility] MCH (RBC) [Entitic mass] 31.6 pg 26.0 - 35.0 pg [facility] MCHC (RBC) [Mass/Vol] 35.3 g/dL High 32.0 - 34.5 g/dL [facility] MCV (RBC) [Entitic vol] 89.5 fL 80.0 - 99.[address] [facility] [address] [facility] Monocytes/100 WBC (Bld) 8 % 2.0 - 12.0 % [facility] Monocytes/100 WBC (Bld) 0.72 % [facility] Neutrophils/100 WBC (Bld) 72 % 43.0 - 80.0 % [facility] Platelet mean volume (Bld) [Entitic vol] 7.9 fL 7.0 - 12.0 fL [facility] Platelets (Bld) [#/Vol] 322 10*3/uL [facility] RBC (Bld) [#/Vol] 4.11 10*6/uL 3.50 - 5.5 0 m/uL [facility] Segmented neutrophils/100 WBC (Bld) 6.46 % [facility] WBC other (Bld) [#/Vol] 9.0 [facility] CBC with Diffon 12-29-2023 Abs. Basophil 0.01 k/uL Normal 0.00-0.20 [facility] Comment on above: Performed By: #### Goldie SANDOVAL, UA #### [place] [address] Prevention Rn: Darci Castle MD Abs.Imm.Granulocyte 0.03 k/uL Normal 0.00-0.58 [facility] Comment on above: Performed By: #### Goldie SANDOVAL, UA #### [place] [address] Prevention Rn: Darci Castle MD Abs.Neutrophil (Seg) 6.46 k/uL Normal 1.80-7.30 [facility] Comment on above: Performed By: #### Goldie SANDOVAL, UA #### [address] [address] Prevention Rn: Darci Castle MD Basophils/100 WBC (Bld) 0 % Normal 0.0-2.0 [facility] Comment on above: Performed By: #### Goldie AU, UA #### [address] [address] Prevention Rn: Darci Castle MD Eosinophils (Bld) [#/Vol] 0.00 10*3/uL Low 0.05-0.50 [facility] Comment on above: Performed By: #### Goldie SANDOVAL, UA #### [address] [place] [address] Prevention Rn: Darci Castle MD Eosinophils/100 WBC (Bld) 0 % Normal 0-6 [facility] Comment on above: Performed By: #### Goldie SANDOVAL, UA #### [address] [place] [address] Prevention Rn: Darci Castle MD Erythrocyte distribution width (RBC) [Ratio] 12.1 % Normal 11.5-15.0 [facility] Comment on above: Performed By: #### Goldie SANDOVAL, UA #### [address] [place] [address] Prevention Rn: Darci Castle MD Hematocrit (Bld) [Volume fraction] 36.8 % Normal 34.0-48.0 [facility] Comment on above: Performed By: #### Goldie SANDOVAL, UA #### [address] [place] [address] Prevention Rn: Darci Castle MD Hemoglobin (Bld) [Mass/Vol] 13.0 g/dL Normal 11.5-15.5 [facility] Comment on above: Performed By: #### Goldie SANDOVAL, UA #### [address] [place] [address] Prevention Rn: Darci Castle MD Immature granulocytes/100 WBC (Bld) 0 % Normal 0.0-5.0 [facility] Comment on above: Performed By: #### Goldie SANDOVAL, UA #### [address] [place] [address] Prevention Rn: Darci Castle MD Lymphocytes (Bld) [#/Vol] 1.81 10*3/uL Normal 1.50-4.00 [facility] Comment on above: Performed By: #### D AU, UA #### [address] [place] [address] Prevention Rn: Darci Castle MD Lymphocytes/100 WBC (Bld) 20 % Normal 20.0-42.0 [facility] Comment on above: Performed By: #### Goldie AU, UA #### [address] [place] [address] Prevention Rn: Darci Castle MD MCH (RBC) [Entitic mass] 31.6 pg Normal 26.0-35.0 [facility] Comment on above: Performed By: #### Goldie SANDOVAL, UA #### [address] [place] [address] Prevention Rn: Darci Castle MD MCHC (RBC) [Mass/Vol] 35.3 g/dL High 32.0-34.5 [facility] Comment on above: Performed By: #### Goldie AU, UA #### [address] [place] [address] Prevention Rn: Darci Castle MD MCV (RBC) [Entitic vol] 89.5 fL Normal 80.0-99.9 [facility] Comment on above: Performed By: #### Goldie AU, UA #### [address] [place] [address] Prevention Rn: Darci Castle MD Monocytes (Bld) [#/Vol] 0.72 10*3/uL Normal 0.10-0.95 [facility] Comment on above: Performed By: #### Goldie AU, UA #### [address] [place] [address] Prevention Rn: Darci Castle MD Monocytes/100 WBC (Bld) 8 % Normal 2.0-12.0 [facility] Comment on above: Performed By: #### Goldie AU, UA #### [address] [place] [address] Prevention Rn: Darci Castle MD Neutrophil (Seg) 72 % Normal 43.0-80.0 [facility] Comment on above: Performed By: #### Goldie SANDOVAL, UA #### [address] [place] [address] Prevention Rn: Darci Castle MD Platelet mean volume (Bld) [Entitic vol] 7.9 fL Normal 7.0-12.0 [facility] Comment on above: Performed By: #### Goldie SANDOVAL, UA #### [address] [place] [address] Prevention Rn: Darci Castle MD Platelets (Bld) [#/Vol] 322 10*3/uL Normal 130-450 [facility] Comment on above: Performed By: #### Goldie SANDOVAL, UA #### [address] [place] [address] Prevention Rn: Darci Castle MD RBC (Bld) [#/Vol] 4.11 10*6/uL Normal 3.50-5.50 [facility] Comment on above: Performed By: #### Goldie AU, UA #### [address] [place] [address] Prevention Rn: Darci Castle MD WBC (Bld) [#/Vol] 9.0 10*3/uL Normal 4.5-11.5 [facility] Comment on above: Performed By: #### Goldie SANDOVAL, UA #### [address] [place] [address] Prevention Rn: Darci Castle MD Comp Metabolic Profon 2023 Albumin [Mass/Vol] 4.6 g/dL Normal 3.5-5.2 [facility] Comment on above: Performed By: #### ROSSY ALTAMIRANO, CP #### [address] [place] [address] Prevention Rn: Darci Castle MD ALT [Catalytic activity/Vol] 16 U/L Normal 0-32 [facility] Comment on above: Performed By: #### ROSSY ALTAMIRANO, CP #### [place] [address] Prevention Rn: Darci Castle MD Anion gap [Moles/Vol] 15 mmol/L Normal 7-16 [facility] Comment on above: Performed By: #### ROSSY ALTAMIRANO, CP #### [address] [address] Prevention Rn: Darci Castle MD AST [Catalytic activity/Vol] 18 U/L Normal 0-31 [facility] Comment on above: Performed By: #### ROSSY ALTAMIRANO, CP #### [place] [address] Prevention Rn: Darci Castle MD Bilirubin [Mass/Vol] 0.2 mg/dL Normal 0.0-1.2 [facility] Comment on above: Performed By: #### ROSSY ALTAMIRANO, CP #### [place] [address] Prevention Rn: Darci Castle MD Calcium [Mass/Vol] 10.1 mg/dL Normal 8.6-10.2 [facility] Comment on above: Performed By: #### T ROSSY SAVAGE, CP #### [address] [place] [address] Prevention Rn: Darci Castle MD Chloride [Moles/Vol] 103 mmol/L Normal 98-107 [facility] Comment on above: Performed By: #### ROSSY ALTAMIRANO, CP #### [address] [place] [address] Prevention Rn: Darci Castle MD CO2 [Moles/Vol] 25 mmol/L Normal 22-29 [facility] Comment on above: Performed By: #### T ROSSY SAVAGE, CP #### [address] [place] [address] Prevention Rn: Darci Castle MD Creatinine [Mass/Vol] 0.6 mg/dL Normal 0.50-1.00 [facility] Comment on above: Performed By: #### ROSSY ALTAMIRANO, CP #### [address] [place] [address] Prevention Rn: Darci Castle MD Glucose [Mass/Vol] 95 mg/dL Normal 74-99 [facility] Comment on above: Performed By: #### ROSSY ALTAMIRANO, CP #### [address] [place] [address] Prevention Rn: Darci Castle MD Potassium [Moles/Vol] 3.5 mmol/L Normal 3.5-5.0 [facility] Comment on above: Performed By: #### ROSSY ALTAMIRANO, CP #### [address] [place] [address] Prevention Rn: Darci Castle MD Protein [Mass/Vol] 6.8 g/dL Normal 6.4-8.3 [facility] Comment on above: Performed By: #### T ROSSY SAVAGE, CP #### [place] [address] [facility] [place] [address] Prevention Rn: Darci Castle MD Sodium [Moles/Vol] 143 mmol/L Normal 132-146 [facility] Comment on above: Performed By: #### T ROSSY SAVAGE, CP #### [address] [place] [address] Prevention Rn: Darci Castle MD Urea nitrogen [Mass/Vol] 8 mg/dL Normal 6-20 [facility] Comment on above: Performed By: #### T ROSSY SAVAGE, CP #### [address] [place] [address] Prevention Rn: Darci Castle MD Alkaline Phos 81 U/L Normal 35-104 [facility] Comment on above: Performed By: #### T ROSSY SAVAGE, CP #### [address] [place] [address] Prevention Rn: Darci Castle MD GFR/1.73 sq M.predicted among non-blacks MDRD (S/P/Bld) [Vol rate/Area] mL/min/{1.73_m2} Normal >60 [facility] Comment on above: Result Comment: These results are not intended for use in patients <18 years of age. eGFR results are calculated without a race factor using the 2020 CKD-EPI equation. Careful clinical correlation is recommended, particularly when comparing to results calculated using previous equations. The CKD-EPI equation is less accurate in patients with extremes of muscle mass, extra-renal metabolism of creatine, excessive creatine ingestion, or following therapy that affects renal tubular secretion. Performed By: #### T ROSSY SAVAGE, CP #### [address] [place] [address] Prevention Rn: Darci Castle MD Comprehensive Metabolic Pane walt 12-29-2023 ALP [Catalytic activity/Vol] 81 U/L 35 - 104 U/L [facility] Est, Shannon Baird Rate - PINF [facility] Comment on above: These results are not intended for use in patients <18 years of age. eGFR results are calculated without a race factor using the 2020 CKD-EPI equation. Careful clinical correlation is recommended, particularly when comparing to results calculated using previous equations. The CKD-EPI equation is less accurate in patients with extremes of muscle mass, extra-renal metabolism of creatine, excessive creatine ingestion, or following therapy that affects renal tubular secretion. Creatine Kinaseon 12-29-2023 CK [Catalytic activity/Vol] 98 U/L Normal 20-180 [facility] Comment on above: Performed By: #### T HUSSEIN, ROSSY, CP #### [address] [place] [address] Prevention Rn: Darci Castle MD Lactic Acidon 12-29-2023 Interpretation and review of laboratory results Abnormal [facility] Lactate (BldV) [Moles/Vol] 2.3 mmol/L High 0.5 - 2.2 mmol/L [facility] Lactate [Moles/Vol] 2.3 mmol/L High 0.5-2.2 [facility] Comment on above: Performed By: #### D AU, UA #### [address] [place] [address] Prevention Rn: Darci Castle MD No Panel Informationon 12-28 [facility] XR ANKLE MINIMUM 3 VIEWS LEF Ton 12-22-2023 XR ANKLE MINIMUM 3 VIEWS LEFT ORIGINAL EXAMINATION: THREE XRAY VIEWS OF THE LEFT ANKLE 12/22/2023 12:23 am COMPARISON: Left ankle x-ray on 09/30/2023 HISTORY: ORDERING SYSTEM PROVIDED HISTORY: Reason for Exam: pain FINDINGS: There is no acute fracture or dislocation of left tibia or fibula. 7 mm corticated ossicle near the tip of the lateral malleolus is unchanged consistent with the accessory ossicle or fragment from prior trauma. The alignment of the ankle mortise is normal. The talus and calcaneus are intact. Soft tissue swelling is greatest laterally. IMPRESSION: 1. No acute fracture or dislocation. 2. Soft tissue swelling is greatest laterally. Interpreted by: Krzysztof Mehta MD Preliminary Report By: Krzysztof Mehta MD Electronically signed By Krzysztof Mehta MD Dictated Date: 12/22/2023 12:24:24 AM Prelim Date: 12/22/2023 12:26:35 AM Sign Date: 12/22/2023 12:26:35 AM Ordering Provider: [facility] XR SPINE LUMBAR AP/LATon XR SPINE LUMBAR AP/LAT ORIGINAL EXAMINATION: 2 XRAY VIEWS OF THE LUMBAR SPINE12/22/2023 12:24 am COMPARISON: CT lumbar spine 09/30/2023, x-ray lumbar spine 05/16/2023 HISTORY: ORDERING SYSTEM PROVIDED HISTORY: Reason for Exam: pain after fall. FINDINGS: There are 5 lumbar type vertebral bodies present with normal alignment. No acute fracture or compression deformity of the lumbar spine is present. Mild multilevel degenerative changes of the lumbar spine most pronounced at L5-S1. IMPRESSION: No compression deformity or significant listhesis. I have personally reviewed the images of this examination, and agree with the resident's findings and interpretation. Interpreted by: Krzysztof Mehta MD Preliminary Report By: Santa Godinez Electronically signed By Krzysztof Mehta MD Dictated Date: 12/22/2023 12:26:35 AM Prelim Date: 12/22/2023 12:30:27 AM Sign Date: 12/22/2023 12:31:22 AM Ordering Provider: DEYSI US [facility] CNCOon 12-20-[address] [facility] CNPNon 12-20-2023 CNPN Telephone (AGSPHWG) DB DOAN ([id number]) 1970 F Date Time Provider Department 12/20/23 BAYRON FIELDS AGSPHWG During your visit today, we recorded the following information about you: SamuelBrandy 12/20/2023 4:20 PM Signed Procedure(s) being scheduled: MBBs 1.Are you diabetic No 2. Are you on any blood thinners? No 3. Are you taking any aspirin? No 4. Are you currently taking any antibiotics? No 5. Do you have any allergies to latex? No 6. Do you have any allergies to seafood or shellfish? No 7. Do you have any allergies to x-ray dye? No 8. Did the physician instruct you to take any medication prior to your procedure? No 9. Does this procedure require a charter driver? Yes If yes, has patient been notified that a charter driver is needed and must be present at check in? yes 10. Were the pre-procedure instructions explained and provided to the patient? Yes 11. Do you have a pacemaker? No 12. Do you have an internal stimulator of any kind? No Brandy Antonmons Allergies As of Date: 12/20/2023 (No Known Allergies) Date Reviewed: 12/19/2023 Reviewed by: Bayron Fields APRN.TECHNICAL APPLICATIONS SPECIALIST - Fully Assessed Reason for Visit: Injections [199] Prescriptions as of 12/20/2023 - DULoxetine (CYMBALTA) 60 mg capsule Take 1 capsule by mouth two times a day. - cyclobenzaprine (FLEXERIL) 10 mg tablet Take 10 mg by mouth at bedtime as needed (muscle spasms). - gabapentin (NEURONTIN) 600 mg tablet Take 600 mg by mouth three times a day. - HYDROXYZINE HCL ORAL Take by mouth once daily as needed. Unknown dosage - TRELEGY ELLIPTA 200-62.5-25 mcg inhalation powder inhale 1 puff once daily - lamoTRIgine (LAMICTAL) 100 mg tablet Take 1 tablet by mouth twice daily. Problem List As Of Date 12/20/2023 Noted Resolved Neck pain, chronic [M54.2, G89.29] 10/28/2014 Arm pain, diffuse [M79.603] 10/28/2014 Bilateral low back pain with left-sided sciatic*10/28/2014 Leg pain, diffuse [M79.606] 10/28/2014 Generalized anxiety disorder [F41.1] 10/28/2014 DDD (degenerative disc disease), lumbar [M51.36*12/03/2018 Sprain or strain of cervical spine [DLW8912] 07/16/2014 Sacroiliitis (HCC) [M46.1] 05/02/2022 Primary osteoarthritis of left hip [M16.12] 01/08/2019 Lymphadenopathy [R59.1] 06/30/2020 Disorder of sacrum [M53.3] 01/08/2019 Centrilobular emphysema (HCC) [J43.2] 03/23/2022 Brachial neuritis or radiculitis [M54.12] 08/14/2011 Anxiety attack [F41.0] 09/16/2014 Syncope and collapse determined by examination *10/22/2023 Fibromyalgia [M79.7] 10/22/2023 PTSD (post-traumatic stress disorder) [F43.10] 10/22/2023 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*10/23/2023 Syncope and collapse [R55] 10/23/2023 Encounter Status:Closed by BRANDY SAMUEL on 12/20/23 [facility] DB [facility]AN ([id number]) 1970 F Date Time Provider Department 12/18/23 [facility] During your visit today, we recorded the following information about you: Db Chavez 12/18/2023 12:52 PM Signed ----- Message from Alma Cortes sent at 12/18/2023 12:41 PM EDT ----- Regarding: Spine Donnie Virtual Issue Spine Donnie Virtual Issue Patient: Db Doan Date of : 1970 Primary Care Provider: Maria Elena Montalvo MD Patient has been identified by name and Date of (Y/N): y Patient: Db Doan Date of : 1970 Provider for this encounter: Maria Elena Montalvo MD Reason for the call/escalation: Patient stated that her appointment with Bayron Fields isn't showing [facility] after she did the pre visit questionnaire. I gave her the number to [facility] but she said she needs to be seen so she wants to make sure she can be seen Was Patient Referred to [facility]/Seek Emergency Treatment (Y/N): n Did Patient Agree (Y/N): n/a Was An Attempt Made To Transfer The Patient To The Office (Y/N): n Were You Able To Reach Someone At The Office (Y/N): n.a If Yes - Patient Was Transferred To (Caregivers Name): n/a If No - Which [facility] [employer] Salesperson Did You Speak With Regarding This Patient: n/a Was an appointment scheduled (Y/N): n Reason patient was requesting visit (RFV/signs and symptoms/diagnosis) : n/a Person calling if other than patient: self Return call to if other than patient: self Best contact number: [phone] Thank you, Alma Villar December 18, 2023 12:41 PM Brandy Samuel 12/18/2023 1:54 PM Signed Spoke with the patient, who said [facility] technical support already spoke with her and made sure she's all set for her VV with Bayron on 12/19/23. Brandy Samuel Allergies As of Date: 12/18/2023 (No Known Allergies) Date Reviewed: 10/27/2023 Reviewed by: Dent, Marlena D, RN - Fully Assessed Reason for Visit: Returning Patient's Call [408] Prescriptions as of 12/18/2023 - DULoxetine (CYMBALTA) 60 mg capsule Take 1 capsule by mouth two times a day. - cyclobenzaprine (FLEXERIL) 10 mg tablet Take 10 mg by mouth at bedtime as needed (muscle spasms). - gabapentin (NEURONTIN) 600 mg tablet Take 600 mg by mouth three times a day. - HYDROXYZINE HCL ORAL Take by mouth once daily as needed. Unknown dosage - TRELEGY ELLIPTA 200-62.5-25 mcg inhalation powder inhale 1 puff once daily - lamoTRIgine (LAMICTAL) 100 mg tablet Take 1 tablet by mouth twice daily. Problem List As Of Date 12/18/2023 Noted Resolved Neck pain, chronic [M54.2, G89.29] 10/28/2014 Arm pain, diffuse [M79.603] 10/28/2014 Bilateral low back pain with left-sided sciatic*10/28/2014 Leg pain, diffuse [M79.606] 10/28/2014 Generalized anxiety disorder [F41.1] 10/28/2014 DDD (degenerative disc disease), lumbar [M51.36*12/03/2018 Sprain or strain of cervical spine [GOZ0210] 07/16/2014 Sacroiliitis (HCC) [M46.1] 05/02/2022 Primary osteoarthritis of left hip [M16.12] 01/08/2019 Lymphadenopathy [R59.1] 06/30/2020 Disorder of sacrum [M53.3] 01/08/2019 Centrilobular emphysema (HCC) [J43.2] 03/23/2022 Brachial neuritis or radiculitis [M54.12] 08/14/2011 Anxiety attack [F41.0] 09/16/2014 Syncope and collapse determined by examination *10/22/2023 Fibromyalgia [M79.7] 10/22/2023 PTSD (post-traumatic stress disorder) [F43.10] 10/22/2023 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*10/23/2023 Syncope and collapse [R55] 10/23/2023 Encounter Status:Closed by RIDDLE, DB on 12/18/23 [facility] CT LUMBAR SPINE WO CONTRASTo n 12-17-2023 CT LUMBAR SPINE WO CONTRAST EXAMINATION: CT OF THE LUMBAR SPINE WITHOUT CONTRAST 12/17/2023 TECHNIQUE: CT of the lumbar spine was performed without the administration of intravenous contrast. Multiplanar reformatted images are provided for review. Adjustment of mA and/or kV according to patient size was utilized. Automated exposure control, iterative reconstruction, and/or weight based adjustment of the mA/kV was utilized to reduce the radiation dose to as low as reasonably achievable. COMPARISON: CT lumbar spine dated 05/06/2023 HISTORY: ORDERING SYSTEM PROVIDED HISTORY: fall and lumbar pain TECHNOLOGIST PROVIDED HISTORY: Reason for exam:->fall and lumbar pain Decision Support Exception - unselect if not a suspected or confirmed emergency medical condition->Emergency Medical Condition (MA) FINDINGS: BONES/ALIGNMENT: There is normal alignment of the spine. The vertebral body heights are maintained. No osseous destructive lesion is seen. DEGENERATIVE CHANGES: No significant degenerative changes of the lumbar spine. SOFT TISSUES/RETROPERITONEUM : No paraspinal mass is seen. IMPRESSION: Unremarkable non-contrast CT of the lumbar spine. Interpreted by: Stanford Barger DO Signed by: Stanford Barger DO 12/17/23 Final result Normal [facility] Comment on above: Order Comment: Reaso n for exam:->pleurisy XR ANKLE LEFT (MIN 3 VIEWS)o n 12-17-2023 XR ANKLE LEFT (MIN 3 VIEWS) EXAMINATION: THREE XRAY VIEWS OF THE LEFT ANKLE 12/17/2023 5:12 am COMPARISON: None. HISTORY: ORDERING SYSTEM PROVIDED HISTORY: fall and left ankle pain TECHNOLOGIST PROVIDED HISTORY: Reason for exam:->fall and left ankle pain IMPRESSION: Soft tissue swelling lateral ankle. No radiographic evidence of acute fracture or dislocation. Ossific density inferior to the lateral malleolus likely reflects either remote injury or accessory ossicle. Also be an accessory ossicle at the base of the 5th metatarsal. Interpreted by: Nabil Putnam MD Signed by: Nabil Putnam MD 12/17/23 Final result Normal [facility] Comment on above: Order Comment: Reaso n for exam:->pain r/o fracture ANKLE LEFT (MIN3-V)on 2023 [facility] Name: BLADIMIR DOANCEY L Phys: BELLO ALARCON MD : 1970 Age: 53 Sex: F Acct: [id number] Loc: ED Exam Date: 12/13/2023 Status: [facility] ER Radiology No: [id number] Unit No: [id number] EXAM# TYPE/EXAM RESULT [id number] EDRAD/ANKLE LEFT (MIN3-V) SEE REPORT INDICATION: Generalized left lower ankle pain. TECHNIQUE: Four views of the left ankle. COMPARISON: None Available. FINDINGS: Deformity at the proximal portion of the fifth metatarsal may represent old fracture. The alignment is anatomic. Mild lateral soft tissue swelling is. IMPRESSION: Question old fracture of the fifth metatarsal. Soft tissue swelling. Signed by Parker Nuñez MD [address] [address] REPORT SIGNED IN OTHER VENDOR SYSTEM 12/13/2023 Reported By: PARKER NUÑEZ MD CC: MARIA ELENA MONTALVO Technologist: GILLIAN CONNER Transcribed Date/Time: 12/13/2023 (1326) Jalousies Installer: BRUCE Printed Date/Time: 12/13/2023 (0176) PAGE 1 Signed Report Normal [facility] LUMBAR SPINE AP/LAT (2 OR 3 V)on 12-13-2023 CRLSP2 Name: FRANKIDB Phys: BELLO ALARCON MD : 1970 Age: 53 Sex: F Acct: [id number] Loc: ED Exam Date: 12/13/2023 Status: [facility] ER Radiology No: [id number] Unit No: [id number] EXAM# TYPE/EXAM RESULT [id number] EDRAD/LUMBAR SPINE AP/LAT (2 OR SEE REPORT INDICATION: Lower back pain. TECHNIQUE: Three views of the lumbar spine. COMPARISON: 09/13/2023 XR Lumbar. FINDINGS: Slight dextroscoliosis. Vertebral body height is normal without compression deformity. Disc heights are preserved with mild degenerative irregularity of the vertebral endplates. Mild hypertrophic bony degenerative changes in the facet joints lower lumbar spine. IMPRESSION: Mild bony degenerative changes. No acute bony findings. Signed by Catalina Watts MD [address] [address] REPORT SIGNED IN OTHER VENDOR SYSTEM 12/13/2023 Reported By: CATALINA WATTS DO CC: MARIA ELENA MONTALVO Technologist: GILLIAN CONNER Transcribed Date/Time: 12/13/2023 (1324) Jalousies Installer: BRUCE Printed Date/Time: 12/13/2023 (132) PAGE 1 Signed Report Normal [facility] EMILIEcatina 12-07-2023 [facility] Name: DB DOAN Phys: Suraj Cevallos MD : 1970 Age: 53 Sex: F Acct: [id number] Loc: SAT Exam Date: 12/07/2023 Status: PRE ER Radiology No: Unit No: [id number] PH: [phone] Diagnosis: L ANKLE PAIN / RIGHT SIDE BACK PAIN EXAM: [id number] ANKLE LEFT-MIN 3 VWS Reason For Procedure: Suspected inversion injury LEFT ANKLE AND FOOT - 8 VIEWS: CLINICAL INDICATION: Injury. COMPARISON: None. IMPRESSION: TRANSVERSE FRACTURE OF THE BASE OF THE 5TH METATARSAL OF INDETERMINATE AGE. SMALL BONY ELEMENT INFERIOR TO THE LATERAL MALLEOLUS THAT IS FELT TO BE DEVELOPMENTAL OR THE SEQUELA OF OLD TRAUMA. INTACT JOINT SPACES. SITE O REPORT SIGNED IN OTHER VENDOR SYSTEM 12/07/2023 Reported By: Homer Chamorro M.D. CC: Technologist: LIN BONDS Transcribed Date/Time: 12/07/2023 (075) Jalousies Installer: NAFISA Printed Date/Time: 12/07/2023 (075) PAGE 1 Signed Report Normal [facility] 12-07-2023 ED [facility] 12/07/23 [place], [place] [address] [id number] DB DOAN None EMERGENCY ROOM REPORT MR [id number] History of Present Illness Date of Service 12/07/23 Provider Siddhartha Crisostomo MD, Colton MD Chief Complaint Pain, Body Part History of Present Illness Patient is a 53-year-old female with history of chronic back pain with prior spinal surgery, prior coccyx injury, prior left knee fracture, prior ankle fracture on the left. Reported history of epilepsy depression and anxiety. Patient reports that yesterday she was walking in her yard, when she had an inversion of her foot suddenly with significant pain that she says 10 out of 10 in the left ankle. Patient is complaining of an effusion of the left ankle, states that it is difficult to antione her foot. Patient has been able to ambulate, with some difficulty and has numbness over the dorsum of her foot, but has intact pulse motor and sensory. Patient complains of that numbness extending up the posterior lateral aspect of her leg. Patient also complaining of right hip pain, back pain with an aggravation of her sciatica patient concerned that she may have aggravated prior injuries with this fall. Patient denies any other sick symptoms, has had no head injury, no loss conscious, no nausea no vomiting. Past Medical/Surgical History : EPILEPSY : Depression : Anxiety : ankilosing spondylisis : TAILBONE FRACTURE Family History Diabetes: none Hypertension: none CHF: none Neurological: dementia Social History Smoking history: Current every day smoker Alcohol: N Drugs: N (Suraj Cevallos MD) Home Medications . Active Scripts Lamotrigine (Lamictal) 150 MG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 a prescription for Percocets x 2 to take at home until she can follow-up with her PCP. Patient agreeable this plan. Given strict return precautions. Discussed with my attending, Dr. Campbell. Condition: Good Disposition: HOME/PENITENTIARY/ASSIST.ANUSHA() Referrals: None (PCP/Family): As Needed [facility] [place] [facility] Patient Instructions: DI for Back Strain or Sprai (more content not included)... Normal [facility] LSPLALon 11-10-2023 LSPLAL Name: DB DOAN Phys: Kade Prince DO : 1970 Age: 53 Sex: F Acct: [id number] Loc: SAT Exam Date: 11/10/2023 Status: PRE ER Radiology No: Unit No: [id number] PH: [phone] Diagnosis: RIGHT WRIST PAIN EXAM: [id number] LIMITED SPINE/LUMBR 2 OR 3 VWS Reason For Procedure: sacral and SI pain, fall onto glut LUMBAR SPINE - 3 VIEWS: CLINICAL INDICATION: Injury/pain. COMPARISON: None. IMPRESSION: NEAR ANATOMIC ALIGNMENT OF THE CURVATURE. INTACT VERTEBRA AND INTERVERTEBRAL DISC SPACES. SITE O REPORT SIGNED IN OTHER VENDOR SYSTEM 11/10/2023 Reported By: Homer Chamorro M.D. CC: Technologist: CARA BAEZA, RT/R Transcribed Date/Time: 11/10/2023 (160) Jalousies Installer: NAFISA Printed Date/Time: 11/10/2023 (351) PAGE 1 Signed Report Normal [facility] WRSTRon 11-10-2023 WRSTR Name: DB DOAN Phys: Kade Prince DO : 1970 Age: 53 Sex: F Acct: [id number] Loc: SAT Exam Date: 11/10/2023 Status: PRE ER Radiology No: Unit No: [id number] PH: [phone] Diagnosis: RIGHT WRIST PAIN EXAM: [id number] WRIST RIGHT-MIN 3 VWS Reason For Procedure: FOOSH, distal radius/ulna ttp RIGHT WRIST - 4 VIEWS: CLINICAL INDICATION: Fall/pain. COMPARISON: None. IMPRESSION: INTACT SKELETAL STRUCTURES AND JOINT SPACES. SITE O REPORT SIGNED IN OTHER VENDOR SYSTEM 11/10/2023 Reported By: Homer Chamorro M.D. CC: Technologist: CARA BAEZA, RT/R Transcribed Date/Time: 11/10/2023 (1603) Jalousies Installer: NAFISA Printed Date/Time: 11/10/2023 (383) PAGE 1 Signed Report Normal [facility] ED NOTEon 10-27-2023 ED NOTE HNO ID: [id number] Author: ROBERTO GOLDBERG RN Service: Emergency Medicine Author Type: Registered Nurse Type: ED Notes Filed: 10/27/2023 04:11 Note Text: Pt provided discharge paperwork. No PIV in place. VSS. Normal [facility] ED Noteson 10-27-2023 Staff Accountant Authentication Interface Message Text Went to give the patient her sulfamethoxazole-trimet hoprim and the patient was not in her room. The patient left without her antibiotic or her discharge papers. Normal [facility] ED PROV NOTEon 10-27-2023 ED PROV NOTE HNO ID: [id number] Author: MARTA SIERRA MD Service: Emergency Medicine Author Type: Physician Type: ED Provider Notes Filed: 10/29/2023 00:16 Note Text: ED Provider Note Patient Name: Db Doan : 1970 SERVICE DATE: 10/27/23 History Patient presents with: Multiple Concerns HPI Db Doan is a 53-year-old female with history of emphysema, lumbar radiculopathy, and PTSD who presents to the ED for low back pain. History provided by patient note that she is dealing with low back pain for years. Has been unable to achieve any pain relief. No associated bowel incontinence or urinary retention. Denies any fevers or IV drug use. Has tried multiple mvxk-dil-dmjlstl meds without relief. Has been able to continue to ambulate. Given ongoing pain came to the ED for further evaluation and treatment. On chart review: patient with multiple ED visits to different emergency departments requesting opioid pain medications. Elevated Narx Score at 530. PAST MEDICAL HISTORY No date: Anxiety attack No date: Brachial neuritis or radiculitis NOS 03/23/2022: Centrilobular emphysema (HCC) No date: Cervical radiculopathy No date: Cervicalgia No date: Disc displacement, lumbar No date: Displacement of cervical intervertebral disc without myelopathy No date: Generalized convulsive epilepsy without intractable epilepsy (HCC) No date: Intractable pain No date: Lumbar radiculopathy No date: Migraine without aura No date: Other chronic pain No date: PTSD (post-traumatic stress disorder) No date: Reactive depression No date: Sprain or strain of cervical spine No past surgical history on file. FAMILY HISTORY Problem Relation Age of Onset Coronary Artery Disease Father Social History Tobacco Use Smoking status: Every Day Current packs/day: 0.50 Types: Cigarettes Smokeless tobacco: Not on file Vaping Use Vaping status: Never Used Substance and Sexual Activity Alcohol use: Never Drug use: Never Sexual activity: Not on file ALLERGIES No Known Allergies Review of Systems Constitutional: Negative for chills and fever. Physical Exam Vitals [10/27/23 0241] BP Pulse Temp Temp src Resp SpO2 Weight Height 167/108 (!) 114 37.1 ?C (98.7 ?F) Oral 18 99 % 63.5 kg (140 lb) 1.702 m (5' 7) Physical Exam Constitutional: General: She is not in acute distress. Appearance: Normal appearance. Eyes: Extraocular Movements: Extraocular movements intact. Pupils: Pupils are equal, round, and reactive to light. Cardiovascular: Rate and Rhythm: Normal rate and regular rhythm. Pulses: Normal pulses. Pulmonary: Effort: Pulmonary effort is normal. Breath sounds: Normal breath sounds. No wheezing or rales. Abdominal: General: Bowel sounds are normal. Palpations: Abdomen is soft. Tenderness: There is no abdominal tenderness. There is no right CVA tenderness, left CVA tenderness, guarding or rebound. Musculoskeletal: General: Normal range of motion. Cervical back: Normal range of motion. Comments: Midline lumbar back tenderness without palpable step-offs or deformities. Tenderness to the right SI joint. Right lower extremity: strength intact, range of motion intact, sensation intact, 2+ DP and PT pulses Left lower extremity: Strength intact, range of motion intact, sensation intact, 2+ DP and PT pulses. Skin: General: Skin is warm. Capillary Refill: Capillary refill takes less than 2 seconds. Comments: Erythema and mild swelling to the lateral nailbed of the big toe on the left foot. No active purulent drainage. Neurological: Mental Status: She is alert and oriented to person, place, and time. Diagnostic Testing ED Labs Ordered and Reviewed - No data to display Procedures ED Course / Clinical Impression ED Course as of 10/29/23 0011 Others' Documentation Sun Oct 27, 2023 0350 Patient seen and examined. Triage vitals hemodynamically stable. Patient in no acute distress. [JZ] ED Course User Index [JZ] Siddhartha Starks MD Clinical Impressions as of 10/29/23 0011 Paronychia of great toe Chronic midline low back pain without sciatica Pain due to dental caries MDM / Disposition / Plan 53-year-old female who presents to the ED for low back pain. Initial evaluation significant for female in no acute distress vitals hemodynamically stable, and physical exam notable for equal and symmetric strength in the bilateral lower extremities. Patient without concern for cauda equina or cord compression given no history of urinary retention or bowel incontinence and strength intact in the lower extremities. Likely pain secondary to her chronic lower back pain. Discussed with patient we will place referral for pain management to get her connected with long-term outpatient care for her ongoing pain. Patient's exam also significant for a paronychia to the left big toe recommending soaks at home and will prescribe Augmentin (more content not included)... Normal [facility] ED Provider Noteson 10-27-19 Staff Accountant Authentication Interface Message Text EMERGENCY DEPARTMENT - VISIT NOTE ------- HISTORY OF PRESENT ILLNESS --- Chief Complaint Patient presents with Foot/toe symptoms Hx of hangnail x a couple of week. For the last two days pt has noticed her R big toe has been becoming more painful . Redness noted, no warmth, pt states when she squeezes toe, she gets yellow/bloody pus. Sensation intact Toothache Back molar L side HIPAA: Verbal permission granted from patient to discuss case, including protected health information, in front of family / friends in room at the time of the evaluation. Source Inspector: not needed - patient preferred language is Malaysian. The history is provided by the Patient. Db Doan is a 53 year old female w/ PMH of generalized anxiety, emphysema, fibromyalgia, PTSD who presented with left great toe swelling, left-sided dental pain. Patient states over the past 2 days he has noticed the medial portion of her left great toe has started to become red after she pulled a piece of skin from it. She noted mild drainage of purulent discharge as well and the redness has since spread. She denies any fevers, chills. She does have pain at the site however has been ambulatory without issue. She notes since this time she has also developed left mandibular tooth pain and is concerned with the are connected. She also mentions multiple previous complaints of chronic back pain and is requesting stronger pain medications for this. She also mentions that she was unsure whether she was had seizures and was recently admitted for syncope workup and possible seizures. She has been taking her Lamictal and has not missed any doses. Review of External (Non- ED) Notes: Discharge summaries reviewed and show evaluated for syncope, had reassuring workup and was discharged REVIEW OF SYSTEMS Review of Systems See HPI PAST HISTORY Pertinent Past History: No past medical history on file. There is no problem list on file for this patient. Pertinent Social History: PHYSICAL EXAM BP (!) 154/104 Pulse (!) 118 Temp 98.4 ???F (36.9 ???C) (Oral) Resp 18 SpO2 100% Constitutional Nursing triage notes reviewed, Vital signs reviewed, Alert and Awake HENT multiple dental caries noted, small dental fracture around filling in left lower mandibular molar Eyes Nonicteric and Noninjected Neck Supple Lungs Clear to auscultation Heart Regular rate and rhythm and No murmurs Abdomen Soft, Nondistended, Nontender and Normal bowel sounds No CVAT Back No midline bony tenderness to thoracic/lumbar/sacral spines Extremities Left lower extremity: Erythema, mild swelling over the medial nail bed consistent with ingrown toenail has small paronychia, no active purulent discharge, otherwise nontender to palpation, sensation intact distally Neuro Alert normally oriented Skin No rash or lesion Psych Cooperative MEDICAL DECISION MAKING and ED COURSE Nursing triage and assessment notes reviewed and incorporated. Course: Management Decisions: XRAY toe considered but not performed due to low concern for osteomyelitis Secondary Considerations / Diagnoses Addressed During this Visit: Elevated blood pressure assessed and likely in the setting of acute complaint, we will repeat with primary care. Assessment AND Plan: 53 year old female with the above mentioned medical history presenting today with left toe infection, dental pain. Upon presentation to the Emergency Department, patient was hemodynamically stable, normotensive, not tachycardic and afebrile. Patient's history exam as above is consistent with likely ingrown toenail with small paronychia. Low concern for acute septic joint or osteomyelitis. Dental pain as above is likely consistent with dental fracture around filling for which he will need to see dentistry. Plan is for providing a prescription for Bactrim however patient eloped here in the emergency department prior to receiving her prescriptions. Pt made aware of findings and is understanding of and agreeable to plan. Pt given condition specific signs and symptoms that warrant return to the ED. ------- IMPRESSION AND DISPOSITION ----- Clinical Impression Diagnosis Comment Ingrown toenail [L60.0] Closed fracture of tooth, initial encounter [S02.5XXA] Eloped from the Emergency Department. Unable to finish evaluation or complete a medical screening exam due to the patient leaving. Unable to provide discharge or follow up instructions. This note was created with the assistance of speech recognition software. Jose Bennett. Normal [facility] Emergency Department Summary on 10-27-2023 Emergency Department Summary [facility] Medical Records Department [address] [place] [address] Emergency Department Summary 10/27/23 MR#: [id number] Acct: [id number] Name: DB DOAN Rep #: [id number] : 1970 53 From: Jose Alfaro DO PCP: Care Physician,No Primary Status:DEP ER Location: ED HPI History of Present Illness Chief Complaint: General Illness Informant: patient Narrative Narrative: Patient is a 53-year-old female with past medical history of ankylosing spondylitis. She also has a history of seizure disorder. She reports that earlier in the week she had a seizure versus syncopal event where she was walking out of her bedroom towards the dinner table and the next thing she knows she was waking up on the floor. She was taken to an outside facility where she states she was admitted and worked up for this syncope versus seizure and discharged. She states that she believes she injured her shoulder and hip when she had the events and despite taking her medications and lezu-fkt-lsiklva medications there has been no improvement of the pain so she is concerned for potential injury and comes in for evaluation [facility] Medical History (Updated 10/28/23 @ 02:[address] Jose Alfaro, ) Ankylosing spondylitis Epilepsy Home Medications ???Medication ???Instructions ???Recorded ???Last Taken ???Type duloxetine 60 mg capsule,delayed 60 mg PO DAILY 10/27/23 Unknown History release (Cymbalta) fluticasone fur. 200 mcg-umeclid 1 ea inhalation DAILY 10/27/23 Unknown History 62.5 mcg-vilant 25 mcg inhalat.powder (Trelegy Ellipta) fluticasone propionate 50 2 spray intranasal DAILY PRN 10/27/23 Unknown History mcg/actuation nasal congestion spray,suspension gabapentin 600 mg tablet 600 mg PO TID 10/27/23 Unknown History hydroxyzine HCl 25 mg tablet 25 mg PO DAILY PRN anxiety 10/27/23 Unknown History lamotrigine 150 mg tablet 150 mg PO DAILY 10/27/23 Unknown History oxycodone-acetaminophen 10 mg-325 1 tab PO Q6H PRN pain 3 days #12 10/27/23 Unknown Rx mg tablet (Percocet) tabs Allergy/AdvReac Type Severity Reaction Status Date / Time No Known Allergies Allergy Verified 10/27/23 05:25 Social History (Updated 05/30/23 @ 16:[address] Addy Faith MD) household members: children Smoking Status: Current every day smoker tobacco type: cigarettes alcohol intake: current substance use type: does not use ROS ROS ED Constitutional Constitutional ED: Denies chills or fever(s) Eyes Eyes: Denies blurry vision or change in vision ENT ENT ED: Denies sore throat Cardiovascular Cardiovascular: Denies chest pain, palpitations or racing heartbeat Respiratory/Chest Respiratory/Chest: Denies cough or dyspnea Gastrointestinal Gastrointestinal: Denies abdominal pain, diarrhea, nausea or vomiting Genitourinary Genitourinary ED: Denies dysuria Musculoskeletal Musculoskeletal: Reports other Details: Positive left shoulder and left hip pain ; Denies neck pain Integumentary Denies rash Neurologic Neurologic: Denies headache(s) Hematologic/Lymphatic Hematologic/Lymphatic: Denies easy bleeding or easy bruising EXAM Physical Exam Const Vital Signs: 10/27/23 05:27 10/27/23 05:27 10/27/23 07:06 Temperature 97.2 F L 97.8 F Temperature Source Temporal Pulse Rate 88 69 Respiratory Rate 16 16 Respiratory Effort Normal Non-Labored Respiratory Pattern Normal Blood Pressure 163/95 H 141/99 H Blood Pressure Mean 117 113 Pulse Ox 98 99 Oxygen Delivery Method Room Air Positive well nourished and well developed General Appearance ED: well developed; Negative for pallor HEENT HEENT Narrative: Normocephalic atraumatic Eyes PERRL and EOMs intact bilaterally General Eye ED: Negative for scleral icterus Neck supple Resp normal respiratory effort and clear to auscultation bilaterally Cardio regular rate and regular rhythm GI normal to inspection, nondistended, normoactive bowel sounds, non-tender, non-distended and no masses Auscultation: normoactive bowel sounds Palpation: soft Back/Spine Back/Spine Narrative: No bony deformity or step-off of the thoracic or lumbar spine no midline tenderness to palpation Extremity Extremity Narrative: Bilateral upper and lower extremities are neurovascularly intact There is mild diffuse pain on palpation of the left shoulder without bony deformity joint effusion or sulcus sign Pelvis is stable there is no shortening or external rotation of either lower extremity. Mild diffuse pain on palpation of the left lateral hip. Despite diffuse pain to the shoulder and hip patient is able to bear weight and move all extremities without difficulty. Neuro oriented x3 and CN's II-XII intact bilaterally Sensorium / Orientation: alert Motor Exam: stren (more content not included)... Normal [facility] HIP, UNI W/ Pelvis 2-3 Views on 10-27-2023 HIP, UNI W/ Pelvis 2-[address] [facility] Imaging Services [address] [place], [place] [address] HIP, UNI W/ Pelvis 2-3 Views MR#: [id number] Acct: [id number] Name: DB DOAN Rep #: [id number] : 1970 F 53 From: Rno Iqbal MD PCP: Care Physician,No Primary Status: REG ER Study: HIP, UNI W/ Pelvis 2-3 Views Date of Exam: Exam# [id number] Ordering Dr: [place] [id number] INDICATION: FALL EXAMINATION/TECHNIQUE: X-RAY - LEFT XR Hip Unilateral with Pelvis when performed; 2-3 Views COMPARISON: None. FINDINGS: SOFT TISSUES: Unremarkable. BONES/JOINTS: No fracture or dislocation. No significant degenerative changes. No erosive changes. RAD/HIP, UNI W/ Pelvis 2-3 Views IMPRESSION: No fracture or dislocation. Electronically Signed: Ron Iqbal DO at 6:48 EDT , CC: Jose Alfaro DO; No Primary Care Physician Jalousies Installer: Signed Normal [facility] Shoulder min 2 Viewson 10-[address] [facility] Imaging Services [address] [place] [address] Shoulder min 2 Views MR#: [id number] Acct: [id number] Name: DB DOAN Rep #: [id number] : 1970 F 53 From: Ron Iqbal MD PCP: Care Physician,No Primary Status: REG ER Study: Shoulder min 2 Views Date of Exam: 10/27/23 Exam# [id number] Ordering Dr: [place] [id number] INDICATION: FALL EXAMINATION/TECHNIQUE: X-RAY - LEFT XR Shoulder Min 2 Views COMPARISON: None. FINDINGS: SOFT TISSUES: Calcification lateral to the humeral head may represent calcific tendinopathy. BONES/JOINTS: No fracture or dislocation. Mild degenerative changes of the acromioclavicular joint and glenohumeral joint. No erosive changes. RAD/Shoulder min 2 Views IMPRESSION: No fracture or dislocation. Electronically Signed: Ron Iqbal DO at 6:46 EDT , CC: Jose Alfaro DO; No Primary Care Physician Jalousies Installer: Signed [facility] ED NOTEon 10-26-2023 ED NOTE HNO ID: [id number] Author: JUDD MCKEON, NIK Service: ? Author Type: Registered Nurse Type: ED Notes Filed: 10/26/2023 05:17 Note Text: Pt left after being evaluated by EDMD. [facility] ED PROV NOTEon 10-26-2023 ED PROV NOTE HNO ID: [id number] Author: SHRUTHI HURT MD Service: ? Author Type: Physician Type: ED Provider Notes Filed: 10/26/2023 05:18 Note Text: ED Provider Note Patient Name: Db Doan : 1970 SERVICE DATE: 10/26/23 History Patient presents with: Fall: Patient states she has recurrent falls onto right hip, was seen at [facility] in [place] for syncope on Saturday. Patient also states infected right big toe for 4 days. Patient states she also has a cracked tooth for weeks, a filling fell out. This patient is a 53-year-old female with a history of anxiety and PTSD. She is a frequent utilizer of the emergency department. This appears to be her at least 13th ER visit this month. She has been in multiple area emergency departments including [place], [facility], [facility], [facility] emergency department, [facility]. It appears that patient was at [facility] emergency department. She was complaining that she felt like she had had a seizure. She was requesting Percocet. She was offered nonsedating medication and it was explained that opioids were not indicated. She became agitated and eloped. She was then seen at [facility] emergency department. She was asking the nurse if the provider was going to provide home pain medications. Patient then eloped from the emergency department. Patient presents today with multiple complaints. She states that she had a syncopal episode on Saturday. She fell. She was admitted overnight andunderwent cardiac evaluation. She was discharged. She complains of ongoing right hip pain since that time. She states she did not have an x-ray at that time. She also complains of an infection starting in her right great toe. She also complains of dental pain. PAST MEDICAL HISTORY No date: Anxiety attack No date: Brachial neuritis or radiculitis NOS 03/23/2022: Centrilobular emphysema (HCC) No date: Cervical radiculopathy No date: Cervicalgia No date: Disc displacement, lumbar No date: Displacement of cervical intervertebral disc without myelopathy No date: Generalized convulsive epilepsy without intractable epilepsy (HCC) No date: Intractable pain No date: Lumbar radiculopathy No date: Migraine without aura No date: Other chronic pain No date: PTSD (post-traumatic stress disorder) No date: Reactive depression No date: Sprain or strain of cervical spine History reviewed. No pertinent surgical history. FAMILY HISTORY Problem Relation Age of Onset - Coronary Artery Disease Father Social History Tobacco Use - Smoking status: Every Day Current packs/day: 0.50 Types: Cigarettes - Smokeless tobacco: Not on file Vaping Use - Vaping status: Never Used Substance and Sexual Activity - Alcohol use: Never - Drug use: Never - Sexual activity: Not on file ALLERGIES No Known Allergies Review of Systems Physical Exam Vitals [10/26/23 0456] BP Pulse Temp Temp src Resp SpO2 Weight Height 135/95 (!) 97 36.3 ?C (97.3 ?F) Oral 14 98 % 65.2 kg (143 lb 11.8 oz) 1.702 m (5' 7) Physical Exam Vitals reviewed. HENT: Head: Normocephalic. Mouth/Throat: Mouth: Mucous membranes are moist. Comments: Patient does have decay of left mandibular molar, no focal abscess, no fluctuance no facial or jaw swelling Cardiovascular: Rate and Rhythm: Normal rate. Pulmonary: Effort: Pulmonary effort is normal. Musculoskeletal: Comments: Active full range of motion of the right hip. Patient does have some erythema at the medial nail fold of the right great toe consistent with paronychia. Neurological: Mental Status: She is alert. Diagnostic Testing ED Labs Ordered and Reviewed - No data to display Procedures ED Course / Clinical Impression Clinical Impressions as of 10/26/23 0519 Pain, dental Paronychia of toe of right foot Pain of right hip MDM / Disposition / Plan I offered right hip x-ray as well as oral antibiotics for her dental pain and paronychia. Patient specifically was requesting Percocet by name. I explained that narcotics are not indicated at this time. I went back to place orders and was notified that the patient had eloped. Please note this is the patient's third elopement from 3 different emergency departments since yesterday. SIGNATURE: Shruthi Hurt MD - SHRUTHI HURT 10/26/23 0518 [facility] ED Physician Documentationon 10-26-2023 ED Physician Documentation [address] [address] Physician Documentation Signed: Name: DB DOAN MRUN: [id number] : 1970 Loc: ED Age / Sex: 53/ F Adm Status: DEP ER Adm Date:10/26/23 Room/Bed: Disposition Decision - General Final diagnosis: Right hip pain, Onychocryptosis Disposition: HOME, SELF-CARE Condition: Stable Instructions: RICE, ED Toenail Ingrown Infec Abx Only, ED Muscle Strain, Extremity HPI: Back Complaint - Time Seen By Provider Time Seen by Provider: 10/26/23 06:16 - General Information Information source:: Patient Patient limitations: No Limitations - History of Present Illness Chief complaint: Back Complaint Initial narrative: Patient presents with right hip pain. She indicates that she either had a syncopal episode or seizure this past Saturday. She was admitted to [facility] and observed overnight. They did not x-ray her hip. She has been ambulatory has a history of chronic back pain. She indicates still pains over the right lateral hip. She took Tylenol last night and nothing recently. She indicates she has chronic back pain. She also medicates that her right great toe is infected. - Immunization History Tetanus status: Unknown - Allergies Allergies/Adverse reaction: Allergies Allergy/AdvReac Type Severity Reaction Status Date / Time No Known Allergies Allergy Unverified 10/26/23 06:28 Past Medical History - Available ancillary/Nurse notes reviewed History reviewed and agreed with:: Yes Past EENT history: Negative Past EENT surgeries/treatments: Negative Past neurological history: Seizures, Epilepsy Additional medical history details: medicated for seizures, last seizure 3years ago. Past cardiovascular history: Negative Past cardiovascular surgeries/treatments:: Negative Past respiratory history: Negative Past gastrointestinal history: Hernia Past gastrointestinal surgeries/treatments: Hernia repair Past genitourinary history: Negative Past Genitourinary surgeries/treatments: Negative Past musculoskeletal history: Back Injury Past endocrine history: Negative Past endocrine surgeries/treatments: Negative Is the patient ?: No Past female reproductive surgeries/treatments: Negative Hemotologic: Negative Psychiatric: Depression, Anxiety Psychiatric Treatments: Managed with Medications Other surgeries/treatments: Negative Past Anesthesia Complications: Denies - Family History Family History: Negative Family History Review of Systems .: All 10 Systems Reviewed Negative Unless Otherwise Stated in the HPI .: I have reviewed available Ancillary/Nursing Staff documentation. General Exam - Other Other exam information: Patient presents with right hip pain. She indicates that she either had a syncopal episode or seizure this past Saturday. She was admitted to [facility] and observed overnight. They did not x-ray her hip. She has been ambulatory has a history of chronic back pain. She indicates still pains over the right lateral hip. She took Tylenol last night and nothing recently. She indicates she has chronic back pain. She also medicates that her right great toe is infected. Course of Treatment Vital Signs 10/26/23 06:13 Temperature 98.0 F Pulse Rate [ 108 H Left Radial] Respiratory 20 Rate Blood Pressure 138/85 [Right Arm] O2 Sat by Pulse 98 Oximetry - Progress Narrative: 10/26/23 06:32 Patient was seen and evaluated upon arrival in the emergency department. Right hip x-ray was ordered. Patient is actually from the [facility] but indicates that she is here visiting her brother. She was just seen in the [facility] on Saturday overnight. Prior to completion of the x-ray or further discussion including possible medications for pain patient got up and walked out of the department without explanation. She essentially eloped without completion of treatment. Given her underlying story her presentation as well as of the distance between her re sidence in this facility there is some suspicion of narcotic or drug-seeking behavior. Regardless the patient is alert and oriented capable of making her own decisions. - Course Orders: Orders Category Date Time Status XR HIP/PELVIS, RIGHT AP/LAT [RAD] Stat Exams 10/26/23 06:29 Ordered 10/27/23 0729 CC: Maria Guadalupe RACHEL, Jia Benedict; PCP DO, Unknown Normal [facility] CASE MGT INIT Anthony 2023 CASE MGT INIT MARK HNO ID: [id number] Author: BRANDYN MOYA MSW Service: Care Coordination Author Type: Analysis Director Type: Care Mgt Initial Assessment Filed: 10/23/2023 13:46 Note Text: CARE MANAGEMENT: ASSESSMENT AND DISCHARGE PLAN SERVICE DATE: October 23, 2023 SERVICE TIME: 1:31 PM PCP: Maria Elena Montalvo MD Primary Contact: Extended Emergency Contact Information Primary Emergency Contact: Chung Doan Mobile Relation: Brother Admission Status: Inpatient Insurance Provider: [employer] [place] MEDICA[employer] Discharge Planning requested by: Potential Transition Plans Home Advance Directives Current Advance Directive: None Brancher Attempted to Assist with AD Completion: Yes Action: Education Provided Current Living Arrangements and Support Lives with: Family members Type of Residence: Private Residence (House) Support: None How do you manage to accomplish the following: Independent: Bathe/Shower;Dress;Meal s/Meal Prep;Going to the bathroom;Medication Management Needs Assistance: Ambulation;Transportati on to appointments/community Current Services/Equipment Current Post-Acute Service(s): DME Current DME Type: Walker Discharge Planning Patient Goal(s): Better mobility, General wellness, Be able to go home Marlette of Choice Explained: Marlette of Choice Given: Yes Level of Care Discussed: Home Care Are you interested in bedside delivery of your medications? No Discharge Planning Participant(s): Patient Patient/Family Comments: Caregiver Assessment: Caregiver is ready, willing and able to meet the patient's needs as recommended by the inter-professional team: No Caregiver needed Transport at Discharge: Transportation Arrangements: Car Destination: Home Needs Prior to Discharge: Needs Prior to Discharge: To Be Determined Post-Acute Discharge Plan: SW met with patient at bedside . Patient admitted for syncope and syncope and collapse . Patient history Bilateral low back pain with left-sided sciatica COPD Generalized anxiety disorder ,Epilepsy (HCC) Centrilobular emphysema (HCC) . Patient reports that she has a wheeled walker at home . Patient request a bedside commode . Patient reports her brother will transport at discharge . Patient anticipated to be discharged home when medically cleared . [facility] will follow-up . SIGNATURE: DANIEL Izquierdo PATIENT NAME: Db Doan DATE: October 23, 2023 TIME: 1:31 PM CONTACT #: [phone] Normal [facility] CBC panel Auto (Bld)on 10-22 Erythrocyte distribution width (RBC) [Ratio] 12.9 % Normal 11.5-15.0 [facility] Comment on above: Order Comment: Speci men Type: BLOOD SPECIMENOrdering Facility: [facility] Address: [address] [place] [address] Performed By: #### 5 8410-2 ####[facility] LABORATORYCLIA [id number] [place] [address] [place] Hematocrit (Bld) [Volume fraction] 35.4 % Low 36.0-46.0 [facility] Comment on above: Order Comment: Speci men Type: BLOOD SPECIMENOrdering Facility: [facility] Address: [address] [place] [address] Performed By: #### 5 8410-2 ####[facility] LABORATORYCLIA [id number] [place] [address] [place] Hemoglobin (Bld) [Mass/Vol] 12.0 g/dL Normal 11.5-15.5 [facility] Comment on above: Order Comment: Speci men Type: BLOOD SPECIMENOrdering Facility: [facility] Address: [address] [place] [address] Performed By: #### 5 8410-2 ####[facility] LABORATORYCLIA [id number] [place] [address] [place] MCH (RBC) [Entitic mass] 32.0 pg Normal 26.0-34.0 [facility] Comment on above: Order Comment: Speci men Type: BLOOD SPECIMENOrdering Facility: [facility] Address: [address] [place] [address] Performed By: #### 5 8410-2 ####[facility] LABORATORYCLIA [id number] [place] [address] [place] MCHC (RBC) [Mass/Vol] 33.9 g/dL Normal 30.5-36.0 [facility] Comment on above: Order Comment: Speci men Type: BLOOD SPECIMENOrdering Facility: [facility] Address: [address] [place] [address] Performed By: #### 5 8410-2 ####[facility] LABORATORYCLIA [id number] [place] [id number] [place] MCV (RBC) [Entitic vol] 94.4 fL Normal 80.0-100.0 [facility] Comment on above: Order Comment: Speci men Type: BLOOD SPECIMENOrdering Facility: [facility] Address: [address] [place] [address] Performed By: #### 5 8410-2 ####[facility] LABORATORYCLIA [id number] [place] [address] [place] Nucleated RBC (Bld) [#/Vol] 10*3/uL Normal <0.01 [facility] Comment on above: Order Comment: Speci men Type: BLOOD SPECIMENOrdering Facility: [facility] Address: [address] [place] [address] Performed By: #### 5 8410-2 ####[facility] LABORATORYCLIA [id number] [place] [address] [place] Platelet mean volume (Bld) [Entitic vol] 8.0 fL Low 9.0-12.7 [facility] Comment on above: Order Comment: Speci men Type: BLOOD SPECIMENOrdering Facility: [facility] Address: [address] [place] [address] Performed By: #### 5 8410-2 ####[facility] LABORATORYCLIA [id number] [place] [address] [place] Platelets (Bld) [#/Vol] 258 10*3/uL Normal 150-400 [facility] Comment on above: Order Comment: Speci men Type: BLOOD SPECIMENOrdering Facility: [facility] Address: [address] [place] [address] Performed By: #### 5 8410-2 ####[facility] LABORATORYCLIA [id number] [place] [address] [place] RBC (Bld) [#/Vol] 3.75 10*6/uL Low 3.90-5.20 [facility] Comment on above: Order Comment: Speci men Type: BLOOD SPECIMENOrdering Facility: [facility] Address: [address] [place] [address] Performed By: #### 5 8410-2 ####[facility] LABORATORYCLIA [id number] [place] [address] [place] WBC (Bld) [#/Vol] 5.95 10*3/uL Normal 3.70-11.00 [facility] Comment on above: Order Comment: Speci men Type: BLOOD SPECIMENOrdering Facility: [facility] Address: [address] [place] [address] Performed By: #### 5 8410-2 ####[facility] LABORATORYCLIA [id number] [place] [address] [place] Erythrocyte distribution width (RBC) [Ratio] 12.9 % Normal 11.5-15.0 [facility] Comment on above: Order Comment: Speci men Type: BLOOD SPECIMENOrdering Facility: [facility] Address: [address] [place] [address] Performed By: #### 5 8410-2 ####[facility] LABORATORYCLIA [id number] [place] [address] [place] Hematocrit (Bld) [Volume fraction] 32.3 % Low 36.0-46.0 [facility] Comment on above: Order Comment: Speci men Type: BLOOD SPECIMENOrdering Facility: [facility] Address: [address] [place] [address] Performed By: #### 5 8410-2 ####[facility] LABORATORYCLIA [id number] [place] [address] [place] Hemoglobin (Bld) [Mass/Vol] 10.8 g/dL Low 11.5-15.5 [facility] Comment on above: Order Comment: Speci men Type: BLOOD SPECIMENOrdering Facility: [facility] Address: [address] [place] [address] Performed By: #### 5 8410-2 ####[facility] LABORATORYCLIA [id number] [place] [address] [place] MCH (RBC) [Entitic mass] 32.0 pg Normal 26.0-34.0 [facility] Comment on above: Order Comment: Speci men Type: BLOOD SPECIMENOrdering Facility: [facility] Address: [address] [place] [address] Performed By: #### 5 8410-2 ####[facility] LABORATORYCLIA [id number] [place] [id number] [place] MCHC (RBC) [Mass/Vol] 33.4 g/dL Normal 30.5-36.0 [facility] Comment on above: Order Comment: Speci men Type: BLOOD SPECIMENOrdering Facility: [facility] Address: [address] [place] [address] Performed By: #### 5 8410-2 ####[facility] LABORATORYCLIA [id number] [place] [id number] [place] MCV (RBC) [Entitic vol] 95.8 fL Normal 80.0-100.0 [facility] Comment on above: Order Comment: Speci men Type: BLOOD SPECIMENOrdering Facility: [facility] Address: [address] [place] [address] Performed By: #### 5 8410-2 ####[facility] LABORATORYCLIA [id number] [place] [address] [place] Nucleated RBC (Bld) [#/Vol] 10*3/uL Normal <0.01 [facility] Comment on above: Order Comment: Speci men Type: BLOOD SPECIMENOrdering Facility: [facility] Address: [address] [place] [address] Performed By: #### 5 8410-2 ####[facility] LABORATORYCLIA [id number] [place] [address] [place] Platelet mean volume (Bld) [Entitic vol] 8.3 fL Low 9.0-12.7 [facility] Comment on above: Order Comment: Speci men Type: BLOOD SPECIMENOrdering Facility: [facility] Address: [address] [place] [address] Performed By: #### 5 8410-2 ####[facility] LABORATORYCLIA [id number] [place] [id number] [place] Platelets (Bld) [#/Vol] 221 10*3/uL Normal 150-400 [facility] Comment on above: Order Comment: Speci men Type: BLOOD SPECIMENOrdering Facility: [facility] Address: [address] [place] [address] Performed By: #### 5 8410-2 ####[facility] LABORATORYCLIA [id number] [place] [address] [place] RBC (Bld) [#/Vol] 3.37 10*6/uL Low 3.90-5.20 [facility] Comment on above: Order Comment: Speci men Type: BLOOD SPECIMENOrdering Facility: [facility] Address: [address] [place] [address] Performed By: #### 5 8410-2 ####[facility] LABORATORYCLIA [id number] WBC (Bld) [#/Vol] 3.83 10*3/uL Normal 3.70-11.00 [facility] Comment on above: Order Comment: Speci men Type: BLOOD SPECIMENOrdering Facility: [facility] Address: [address] [place] [address] Performed By: #### 5 8410-2 ####[facility] LABORATORYCLIA [id number] [place] [id number] [facility] CONSULT PROGon 10-23-2023 CONSULT PROG HNO ID: [id number] Author: MARIELY SALTER DO Service: Neurology General Author Type: Physician Type: Consult Progress Note Filed: 10/24/2023 10:13 Note Text: [facility] Neurologic Follow-up Consultation Patient Name: Db Doan Date of : 1970 Primary Care Physician: Maria Elena Montalvo MD Consulting Physician: Lance Sr MD Date of Service: October 23, 2023 Impressions and Recommendations: 1.) Syncope - The patient has a non-focal neurologic history and physical examination. There are no reports of post ictal confusion, tongue biting, loss of bowel or bladder control, or any seizure like activity. I don't suspect that this syncopal event represents a primary neurological process such as stroke, TIA, or seizure. This was in the setting of feeling poorly over the past couple of the week and eating very little. No new episodes noted. - continue supportive care - monitor for expected course - no additional neurologic testing needed at this point OK for discharge from a neurologic standpoint Chief Complaint/Reason for Consult: syncope and collapse Interval History of Present Illness: Per nurse: d/w RN. Reviewed notes. No new neurologic concerns. Per patient: feeling better, denies new focal weakness, denies new neurologic complaints Associated with: No reported new focal weakness or abnormal movements. There are no additional associated signs or symptoms. Exacerbated by: Denied Alleviated by: Denied Events: No further events noted There are no additional modifying factors. There is no additional collateral history. Brief Interval Review of systems: Patient denies and there is no indication of chest pain, shortness of breath, nausea or any other new updates to ROS as documented in my original consultation. Medications: Current Facility-Administered Medications Medication Dose Route Frequency heparin 5,000 Units injection 5,000 Units SUBCUTANEOUS q 12 H NaCl 0.9% iv flush bag 20 mL INTRAVENOUS PRN prochlorperazine 5 mg injection (COMPAZINE) 5 mg INTRAVENOUS q 6 H PRN docusate sodium 100 mg cap(s) (COLACE) 100 mg ORAL BID PRN acetaminophen 650 mg tab(s) (TYLENOL) 650 mg ORAL q 6 H PRN lidocaine 4 % 1 Patch (SALONPAS) 1 Patch TRANSDERMAL DAILY And lidocaine patch - REMOVE OTHER AT BEDTIME And lidocaine - VERIFY PATCH OTHER q 8 H DULoxetine 60 mg cap(s) (CYMBALTA) 60 mg ORAL BID gabapentin 600 mg tab(s) (NEURONTIN) 600 mg ORAL TID hydrOXYzine HCl 25 mg tab(s) (ATARAX) 25 mg ORAL q 8 H PRN lamoTRIgine (LaMICtal) tab(s) 150 mg 150 mg ORAL DAILY cyclobenzaprine 10 mg tab(s) (FLEXERIL) 10 mg ORAL AT BEDTIME PRN budesonide 0.5 mg/2 mL 1 mg (PULMICORT) 1 mg INHALATION BID And ipratropium-albuterol 3 mL nebulizer solution (DUONEB) 3 mL INHALATION QID sodium chloride 0.9 % (flush) 2-10 mL (BD POSIFLUSH) 2-10 mL INTRAVENOUS DIRECTED PRN And perflutren lipid microspheres 1.1 mg/mL 1.3 mL injection (DEFINITY) 1.3 mL INTRAVENOUS DIRECTED PRN oxyCODONE-acetaminophen 5-325 mg 2 tablet (PERCOCET) 2 tablet ORAL q 6 H PRN Pre-admission cyclobenzaprine (FLEXERIL) 10 mg tablet, Take 10 mg by mouth at bedtime as needed (muscle spasms)., Disp: , Rfl: , Unknown gabapentin (NEURONTIN) 600 mg tablet, Take 600 mg by mouth three times a day., Disp: , Rfl: , 10/22/2023 HYDROXYZINE HCL ORAL, Take by mouth once daily as needed. Unknown dosage, Disp: , Rfl: , Unknown DULoxetine (CYMBALTA) 60 mg capsule, Take 1 capsule by mouth once daily for 14 days., Disp: 14 capsule, Rfl: 0, 10/22/2023 TRELEGY ELLIPTA 200-62.5-25 mcg inhalation powder, inhale 1 puff once daily, Disp: , Rfl: , Unknown lidocaine (LIDODERM) 5 %, , Disp: , Rfl: , Unknown lamoTRIgine (LAMICTAL) 100 mg tablet, Take 1 tablet by mouth twice daily., Disp: 60 tablet, Rfl: 6, 10/22/2023 LIDOCAINE PAIN RELIEF 4 % patch, , Disp: , Rfl: NEUROLOGIC SINGLE SYSTEM EXAM: Vital Signs: BP 139/73 Pulse 84 Temp 36.6 ?C (97.9 ?F) (Oral) Resp 17 Ht 170.2 cm (5' 7) Wt 63.5 kg (140 lb) SpO2 99% BMI 21.93 kg/m? Orthostatic Vital Signs (Comprehensive) BP Device / Method: Automatic General: Pleasant and cooperative. Well nourished and well developed. Appears to be stated age. Mental Status: Awake, alert and oriented. Attentive with good concentration. Mood and affect are normal. Language is fluent without aphasia. Recent and remote memory adequate. Adequate fund of knowledge. Cranial Nerves: VFF. PERRL, EOMs full, no nystagmus, pursuits are normal. Facial movement and sensation intact. Eyelid and lip closure strong. Hearing intact. Palate and tongue are midline with normal movements. Sternocleidomastoid and trapezius are strong bilaterally. Motor: No tremor, fasciculations, or atrophy. Tone and power are normal in the bilateral UE and LE. Sensation: Intact to light touch sense in all 4 extremities. Coordination: No limb ataxia. No truncal ataxia. Reflexes: (more content not included)... Normal [facility] Comprehensive metabolic 2000 panelon 10-23-2023 Albumin [Mass/Vol] 3.1 g/dL Low 3.9-4.9 [facility] Comment on above: Order Comment: Speci men Type: BLOOD SPECIMENOrdering Facility: [facility] Address: [address] [place] [address] Performed By: #### 1 9123-9, 96652-7 ####[facility] LABORATORYCLIA [id number] [place] [address] [place] ALP [Catalytic activity/Vol] 44 U/L Normal 34-123 [facility] Comment on above: Order Comment: Speci men Type: BLOOD SPECIMENOrdering Facility: [facility] Address: [address] [place] [address] Performed By: #### 1 9123-9, 64175-7 ####[facility] LABORATORYCLIA [id number] [place] [address] [place] ALT [Catalytic activity/Vol] 16 U/L Normal 7-38 [facility] Comment on above: Order Comment: Speci men Type: BLOOD SPECIMENOrdering Facility: [facility] Address: [address] [place] [address] Performed By: #### 1 9123-9, 80523-8 ####[facility] LABORATORYCLIA [id number] [place] [address] [place] Anion gap [Moles/Vol] 4 mmol/L Low 8-15 [facility] Comment on above: Order Comment: Speci men Type: BLOOD SPECIMENOrdering Facility: [facility] Address: [address] [place] [address] Performed By: #### 1 9123-9, 66083-3 ####[facility] LABORATORYCLIA [id number] [place] [address] [place] AST [Catalytic activity/Vol] 14 U/L Normal 13-35 [facility] Comment on above: Order Comment: Speci men Type: BLOOD SPECIMENOrdering Facility: [facility] Address: [address] [place] [address] Performed By: #### 1 9123-9, 82742-1 ####[facility] LABORATORYCLIA [id number] [place] [address] [place] Bilirubin [Mass/Vol] 0.2 mg/dL Normal 0.2-1.3 [facility] Comment on above: Order Comment: Speci men Type: BLOOD SPECIMENOrdering Facility: [facility] Address: [address] [place] [address] Performed By: #### 1 9123-9, 95620-6 ####[facility] LABORATORYCLIA [id number] [place] [address] [place] Calcium [Mass/Vol] 8.3 mg/dL Low 8.5-10.2 [facility] Comment on above: Order Comment: Speci men Type: BLOOD SPECIMENOrdering Facility: [facility] Address: [address] [place] [address] Performed By: #### 1 9123-9, 50569-2 ####[facility] LABORATORYCLIA [id number] [place] [address] [place] Chloride [Moles/Vol] 109 mmol/L High 98-107 [facility] Comment on above: Order Comment: Speci men Type: BLOOD SPECIMENOrdering Facility: [facility] Address: [address] [place] [address] Performed By: #### 1 9123-9, 06488-0 ####[facility] LABORATORYCLIA [id number] [place] [address] [place] CO2 [Moles/Vol] 29 mmol/L Normal 22-30 [facility] Comment on above: Order Comment: Speci men Type: BLOOD SPECIMENOrdering Facility: [facility] Address: [address] [place] [address] Performed By: #### 1 9123-9, 30029-8 ####[facility] LABORATORYCLIA [id number] [place] [id number] [place] Creatinine [Mass/Vol] 0.70 mg/dL Normal 0.58-0.96 [facility] Comment on above: Order Comment: Speci men Type: BLOOD SPECIMENOrdering Facility: [facility] Address: [address] [place] [address] Performed By: #### 1 9123-9, 95671-4 ####[facility] LABORATORYCLIA [id number] [place] [address] [place] Creatinine and Glomerular filtration rate.predicted panel (S/P/Bld) 105 mL/min/1.73m??? Normal >=60 [facility] Comment on above: Order Comment: Eunice perez Type: BLOOD SPECIMENOrdering Facility: [facility] Address: [address] [place] [address] Result Comment: Rah mated Glomerular Filtration Rate (eGFR) is calculated using the 2020 CKD-EPI creatinine equation. This equation utilizes serum creatinine, sex, and age as parameters. The creatinine assay has traceable calibration to isotope dilution-mass spectrometry. Refer to KDIGO guidelines for clinical interpretation. In patients with unstable renal function, e.g. those with acute kidney injury, the eGFR may not accurately reflect actual GFR. Performed By: #### 1 9123-9, 23095-1 ####[facility] LABORATORYCLIA [id number] [place] [id number] [place] Glucose [Mass/Vol] 72 mg/dL Low 74-99 [facility] Comment on above: Order Comment: Speci men Type: BLOOD SPECIMENOrdering Facility: [facility] Address: [address] [place] [address] Result Comment: The [place] [employer] (ADA) provides guidance for cutoff values for fasting glucose and random glucose. The ADA defines fasting as no caloric intake for at least 8 hours. Fasting plasma glucose results between 100 to 125 mg/dL indicate increased risk for diabetes (prediabetes). Fasting plasma glucose results greater than or equal to 126 mg/dL meet the criteria for diagnosis of diabetes. In the absence of unequivocal hyperglycemia, results should be confirmed by repeat testing. In a patient with classic symptoms of hyperglycemia or hyperglycemic crisis, random plasma glucose results greater than or equal to 200 mg/dL meet the criteria for diagnosis of diabetes. Reference: Standards of Medical Care in Diabetes 2016, [place] [employer]. Diabetes Care. 2016.39(Suppl 1). Performed By: #### 1 9123-9, 58959-6 ####[facility] LABORATORYCLIA [id number] [place] [id number] [place] Potassium [Moles/Vol] 4.3 mmol/L Normal 3.7-5.1 [facility] Comment on above: Order Comment: Speci men Type: BLOOD SPECIMENOrdering Facility: [facility] Address: [address] [place] [address] Performed By: #### 1 9123-9, 19479-3 ####[facility] LABORATORYCLIA [id number] [place] [address] [place] Protein [Mass/Vol] 4.7 g/dL Low 6.3-8.0 [facility] Comment on above: Order Comment: Speci men Type: BLOOD SPECIMENOrdering Facility: [facility] Address: [address] [place] [address] Performed By: #### 1 9123-9, 67362-7 ####[facility] LABORATORYCLIA [id number] [place] [address] [place] Sodium [Moles/Vol] 142 mmol/L Normal 136-144 [facility] Comment on above: Order Comment: Speci men Type: BLOOD SPECIMENOrdering Facility: [facility] Address: [address] [place] [address] Performed By: #### 1 9123-9, 71257-7 ####[facility] LABORATORYCLIA [id number] [place] [address] [place] Urea nitrogen [Mass/Vol] 6 mg/dL Low 7-21 [facility] Comment on above: Order Comment: Speci men Type: BLOOD SPECIMENOrdering Facility: [facility] Address: [address] [address] Performed By: #### 1 9123-9, 16932-2 ####[facility] LABORATORYCLIA [id number] [place] [address] [place] Magnesium SerPl-mCncon 10-22 Magnesium [Mass/Vol] 2.3 mg/dL Normal 1.7-2.3 [facility] Comment on above: Order Comment: Speci men Type: BLOOD SPECIMENOrdering Facility: [facility] Address: [address] [address] Performed By: #### 1 9123-9, 06299-3 ####[facility] LABORATORYCLIA [id number] [place] [id number] [place] NM CARDIAC PERF STRESS/PHARM on 10-23-2023 NM CARDIAC PERF STRESS/PHARM * * *Final Report* * * DATE OF EXAM: Oct 23 2023 11:19AM [facility] 0006 NM CARDIAC PERF STRESS/PHARM / PROCEDURE REASON: Chest pain/anginal equiv, high CAD risk, not treadmill candidate * * * * Physician Interpretation * * * * RESULT: PATIENT: Name: MISS DB DOAN Age: 53 years Gender: F CONCLUSIONS: 1. SPECT Perfusion Study: Normal. 2. There is no scintigraphic evidence for inducible ischemia. 3. No evidence of scarred myocardium. 4. Left ventricle is normal in size. The left ventricle systolic function is normal. 5. This is a low risk scan. Gated Stress FBP LVEF % 84 Prior Study Comparison No prior nuclear cardiology exam available for comparison. Nuclear Med Report:1-Day Gated SPECT Myocardial Perfusion with Regadenoson Stress: Myocardial perfusion imaging was performed at rest 30 minutes following the IV injection of the radiotracer. The patient received 0.4 mg of regadenoson, via rapid IV push, immediately followed by radiotracer IV. Gated post stress tomographic imaging was performed 30 to 60 minutes later. See administered radiotracer and doses below. [facility] Date of service: 10/23/2023 9:16:51 AM Ordering Physician: ELIF ALLEN. Requesting Physician: ELIF ALLEN Indication: CP - ECG uniterpretable OR unable to exercise Interpreting physician: Lino Vela MD Height: 170.20 cm BSA: 1.73 m? Weight: 63.50 kg BMI: 21.9 kg/m? Exam Type: Rest Stress Radiopharm: Tc-99m Tetrofosmin Tc-99m Tetrofosmin Dosage(mCi): 13.3 34.0 Stress Agent: Regadenoson 0.4mg Supply provided from [facility] Resting Blood Press: 110/60 mmHg Image Quality The overall study imaging quality was deemed to be good. FINDINGS: Left Ventricle Wall Motion: Stress IR:3D - All segments are normal. Rest IR:3D - Gated Stress FBP - Reversibility - Stress IR:3D Stress IR:3D Gated Stress FBP LVEF: 84 % ED Volume: 85 ml ES Volume: 14 ml TID: 0.94 Perfusion Findings Stress IR:3D - Summed Score=0 All segments demonstrate normal perfusion. Rest IR:3D - Summed Score=0 All segments demonstrate normal perfusion. Stress IR:3D Rest IR:3D Summed Score=0 Summed Score=0 LEFT VENTRICLE The left ventricle is normal in size. Left ventricular systolic function is normal. Right Ventricle The right ventricle is unseen or not interrogated. Stress Test Findings: There is no scintigraphic evidence for inducible ischemia. There is no evidence of scarring. The left ventricular cavity size is unchanged with stress. * * * Final * * * ---- Stress ECG Report: [facility] Date of service: 10/23/2023 9:16:51 AM Ordering physician: ELIF ALLEN senior education specialist: Lisa Melgoza Interpreting physician: Niurka Lopez MD Patient name: MISS DB DOAN Age: 53 years Gender: F Height: 170.20 cm BSA: 1.73 m? Weight: 63.50 kg BMI: 21.9 kg/m? Indication: Syncope / near-syncope Stress ECG Conclusion: Conclusion: Normal Stress ECG Summary: The patient's resting heart rate was 77 bpm and blood pressure was 110/60 mmHg. The test was terminated due to end of protocol. No symptoms provoked during stress. The maximum heart rate was 93 bpm, which is 55% of the predicted heart rate for age. Peak blood pressure was 100/60 mmHg. The double product achieved was 9300. Medications: Last Used CYMBALTA HEPARIN SQ Resting ECG: Normal Sinus Rhythm Symptoms at rest: No symptoms Pharamcologic Protocol: Regadenoson Stress Exercise Table: +-----+--+---+---+ Stage HR SYS MARIANNE +-----+--+---+---+ 1 76 +-----+--+---+---+ 2 81 +-----+--+---+---+ 3 93 102 58 +-----+--+---+---+ +-----+--+---+---+ HR SYS MARIANNE +-----+--+---+---+ Final 93 100 60 +-----+--+---+---+ Recovery Table: +------+--+---+---+ Stage HR SYS MARIANNE +------+--+---+---+ 1 83 +------+--+---+---+ 2 88 100 60 +------+--+---+---+ 3 81 94 62 +------+--+---+---+ Stress Observations: Resting HR: 77 bpm Peak HR: 93 bpm (55% MPHR) Resting BP: 110 / 60 mmHg Peak BP: 100 / 60 mmHg Rate Pressure Product (RPP): 9300 Stress Exercise Observations: Reason for test termination: end of protocol, Symptoms during test: No symptoms provoked during stress, ST segment and T wave changes: No ST changes and Arrhythmias: No arrhythmias Comments: All blood pressure taken manually right arm with regular cuff Metabolic Exercise Data Variable: Observed value [Expected Range] HGI: 0.1 [>1.06 bpm/mmHg] * * * Final * * * ---- 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 [facility] THERAPY NTon 10-23-2023 THERAPY NT HNO ID: [id number] Author: AMY LEOS, PT Service: Physical Therapy Author Type: Physical Therapist Type: Therapy (PT/OT/Speech/Resp) Filed: 10/23/2023 14:12 Note Text: Physical Therapy Evaluation Summary SERVICE DATE: 10/23/2023 SERVICE TIME: 1135 to 1210 ROOM: [place] [address] PT 6 Clicks Score: 24 DISCHARGE RECOMMENDATIONS Outpatient PT Recommended Discharge Disposition Comments: Recommend outpatient PT to address chronic back pain and related balance and mobility deficits. Discussed using wheeled walker on bad days to improve balance and safety. Recommended Discharge Equipment: No equipment needs anticipated ASSESSMENT Response to Therapy Interventions: Good Participation in Activities, Pain PRECAUTIONS Fall Risk CURRENT HOSPITAL COURSE Admitted after syncopal episode at home; right hip pain after fall. Patient reports increase in back pain since steroid injection and 10/07. Had decreased appetite and lightheadedness prior to syncopal episode. Relevant Past Medical History: Anxiety, emphysema, ankylosing spondylitis, COPD, fibromyalgia, cervical radiculopathy, epilepsy, migraines, chronic LBP with sciatica, PTSD HOME LIVING Patient Lives With: Family (Stays with different family members; plans to go to mother and step-father's home at discharge.) Assistance Available: Part-Time Entry To Home: No Stairs Number Of Stairs To Bed/Bath: 0 Tub/Shower Type: Sits in tub to shower due to being unable to stand; does not take a bath. Equipment Owned: Cane, Walker- Wheeled, Grab Bars- Shower PRIOR FUNCTIONAL LEVEL Within Functional Limits Baseline: IND ambulation/ADLs; drives; uses cane PRN. Reports with she does not have pain meds, she is barely able to get OOB. SUBJECTIVE Agreeable to participate. Patient tearful throughout session talking about chronic back pain. THERAPY DIAGNOSIS Abnormalities of gait and mobility-other TREATMENT INTERVENTIONS Evaluation, Therapeutic Activity (67066) Timed Code Treatment (minutes): 10 Skilled Treatment Time (minutes): 35 TRAINING AND EDUCATION PROVIDED Assistive Device Use, Benefits of In-Hospital Mobility, Discharge Planning, Disease Specific Education, Equipment, Expected Functional Level, Role of Physical Therapy THERAPEUTIC SKILLS USED Assessment of Tolerance Including Vitals Response to Activity, Cuing Verbal FUNCTIONAL STATUS Bed Mobility Supine To Sit: Independent Sit to Supine: Independent Transfers Sit To Stand: Independent Stand To Sit: Independent Bed to Chair Gait Supervision Gait Device: None General Deviations/Observations : Wide base of support Gait Distance (feet): 150 feet, 10 feet Stairs GOALS Patient will demonstrate understanding of importance of mobility during hospital stay and resolve all functional needs identified. Rehab Potential: Good PLAN PT Frequency: Discontinue Therapy Services Reasons Therapy Services Discontinued: Goals met (No inpatient skilled PT needs. Patient ambulating in the [place] without assist.) Treatment Interventions: Education, Functional Mobility Training, Balance Training SIGNATURE: Amy Leos, PT PATIENT NAME: Db Doan DATE: October 23, 2023 TIME: 2:12 PM [facility] 10-22-2023 ALLIED HEALTH HNO ID: [id number] Author: BELLO STYLES RT(R) Service: Radiology Author Type: Technologist Type: Allied Health Filed: 10/22/2023 08:18 Note Text: Radiology Service Progress Note PATIENT NAME: Db Doan DATE OF SERVICE: October 22, 2023 TIME: 8:18 AM PATIENT IDENTITY VERIFICATION COMPLETED USING TWO (2) IDENTIFIERS: Name and Date of confirmed by patient verbally and Name and Date of confirmed by identification band. FALL SCREENING: Has the patient had 2 falls in the last year or 1 fall with injury or currently using an Ambulatory Assistive Device (Walker, Cane, Wheelchair, Crutches, etc.)? No PATIENT GENDER DATA: Female. status: : No status: NO. PATIENT RELEVANT IMPLANT DATA REVIEWED: Not Applicable PATIENT PRESENTS WITH AN IMPLANTABLE OR ATTACHED LINE LEADER: No RADIOLOGY DEPARTMENT: General X-ray: Exam(s) Completed: Chest X-Ray Pelvis X-Ray: Pelvis with Hip Right PERIPHERAL IV DATA: Not applicable SIGNED BY: Bello Styles RT(R) October 22, 2023 8:18 AM Normal [facility] CBC W Auto Differential pane l (Bld)on 10-22-2023 Basophils (Bld) [#/Vol] 10*3/uL Normal <0.11 [facility] Comment on above: Order Comment: Speci men Type: BLOOD SPECIMENOrdering Facility: [facility] Address: [address] [place] [address] Performed By: #### 5 7021-8 ####[facility] LABORATORYCLIA [id number] [place] [address] [place] Basophils/100 WBC (Bld) 0.3 % [facility] Comment on above: Order Comment: Speci men Type: BLOOD SPECIMENOrdering Facility: [facility] Address: [address] [place] [address] Performed By: #### 5 7021-8 ####[facility] LABORATORYCLIA [id number] [place] [address] [place] Differential cell count method Nom (Bld) Auto [facility] Comment on above: Order Comment: Speci men Type: BLOOD SPECIMENOrdering Facility: [facility] Address: [address] [place] [address] Performed By: #### 5 7021-8 ####[facility] LABORATORYCLIA [id number] [place] [address] [place] Eosinophils (Bld) [#/Vol] 0.19 10*3/uL Normal <0.46 [facility] Comment on above: Order Comment: Speci men Type: BLOOD SPECIMENOrdering Facility: [facility] Address: [address] [place] [address] Performed By: #### 5 7021-8 ####[facility] LABORATORYCLIA [id number] [place] [address] [place] Eosinophils/100 WBC (Bld) 2.7 % [facility] Comment on above: Order Comment: Speci men Type: BLOOD SPECIMENOrdering Facility: [facility] Address: [address] [place] [address] Performed By: #### 5 7021-8 ####[facility] LABORATORYCLIA [id number] [place] [address] [place] Erythrocyte distribution width (RBC) [Ratio] 12.9 % Normal 11.5-15.0 [facility] Comment on above: Order Comment: Speci men Type: BLOOD SPECIMENOrdering Facility: [facility] Address: [address] [place] [address] Performed By: #### 5 7021-8 ####[facility] LABORATORYCLIA [id number] [place] [address] [place] Hematocrit (Bld) [Volume fraction] 43.3 % Normal 36.0-46.0 [facility] Comment on above: Order Comment: Speci men Type: BLOOD SPECIMENOrdering Facility: [facility] Address: [address] [place] [address] Performed By: #### 5 7021-8 ####[facility] LABORATORYCLIA [id number] [place] [address] [place] Hemoglobin (Bld) [Mass/Vol] 15.0 g/dL Normal 11.5-15.5 [facility] Comment on above: Order Comment: Speci men Type: BLOOD SPECIMENOrdering Facility: [facility] Address: [address] [place] [address] Performed By: #### 5 7021-8 ####[facility] LABORATORYCLIA [id number] [place] [address] [place] Immature granulocytes (Bld) [#/Vol] 10*3/uL Normal <0.10 [facility] Comment on above: Order Comment: Speci men Type: BLOOD SPECIMENOrdering Facility: [facility] Address: [address] [place] [address] Performed By: #### 5 7021-8 ####[facility] LABORATORYCLIA [id number] [place] [address] [place] Immature granulocytes/100 WBC (Bld) 0.3 % Normal [facility] Comment on above: Order Comment: Speci men Type: BLOOD SPECIMENOrdering Facility: [facility] Address: [address] [place] [address] Performed By: #### 5 7021-8 ####[facility] LABORATORYCLIA [id number] [place] [address] [place] Lymphocytes (Bld) [#/Vol] 2.04 10*3/uL Normal 1.00-4.00 [facility] Comment on above: Order Comment: Speci men Type: BLOOD SPECIMENOrdering Facility: [facility] Address: [address] [place] [address] Performed By: #### 5 7021-8 ####[facility] LABORATORYCLIA [id number] [address] [place] Lymphocytes/100 WBC (Bld) 29.2 % Normal [facility] Comment on above: Order Comment: Speci men Type: BLOOD SPECIMENOrdering Facility: [facility] Address: [address] [place] [address] Performed By: #### 5 7021-8 ####[facility] LABORATORYCLIA [id number] [place] [address] [place] MCH (RBC) [Entitic mass] 32.5 pg Normal 26.0-34.0 [facility] Comment on above: Order Comment: Speci men Type: BLOOD SPECIMENOrdering Facility: [facility] Address: [address] [place] [address] Performed By: #### 5 7021-8 ####[facility] LABORATORYCLIA [id number] [place] [address] [place] MCHC (RBC) [Mass/Vol] 34.6 g/dL Normal 30.5-36.0 [facility] Comment on above: Order Comment: Speci men Type: BLOOD SPECIMENOrdering Facility: [facility] Address: [address] [place] [address] Performed By: #### 5 7021-8 ####[facility] LABORATORYCLIA [id number] [place] [id number] [place] MCV (RBC) [Entitic vol] 93.9 fL Normal 80.0-100.0 [facility] Comment on above: Order Comment: Speci men Type: BLOOD SPECIMENOrdering Facility: [facility] Address: [address] [place] [address] Performed By: #### 5 7021-8 ####[facility] LABORATORYCLIA [id number] [place] [id number] [place] Monocytes (Bld) [#/Vol] 0.70 10*3/uL Normal <0.87 [facility] Comment on above: Order Comment: Speci men Type: BLOOD SPECIMENOrdering Facility: [facility] Address: [address] [place] [address] Performed By: #### 5 7021-8 ####[facility] LABORATORYCLIA [id number] [place] [address] [place] Monocytes/100 WBC (Bld) 10.0 % Normal [facility] Comment on above: Order Comment: Speci men Type: BLOOD SPECIMENOrdering Facility: [facility] Address: [address] [place] [address] Performed By: #### 5 7021-8 ####[facility] LABORATORYCLIA [id number] [place] [id number] [place] Neutrophils (Bld) [#/Vol] 4.01 10*3/uL Normal 1.45-7.50 [facility] Comment on above: Order Comment: Speci men Type: BLOOD SPECIMENOrdering Facility: [facility] Address: [address] [place] [address] Performed By: #### 5 7021-8 ####[facility] LABORATORYCLIA [id number] [place] [id number] [place] Neutrophils/100 WBC (Bld) 57.5 % Normal [facility] Comment on above: Order Comment: Speci men Type: BLOOD SPECIMENOrdering Facility: [facility] Address: [address] [address] Performed By: #### 5 7021-8 ####[facility] LABORATORYCLIA [id number] [place] [address] [place] Nucleated RBC (Bld) [#/Vol] 10*3/uL Normal <0.01 [facility] Comment on above: Order Comment: Speci men Type: BLOOD SPECIMENOrdering Facility: [facility] Address: [address] [place] [address] Performed By: #### 5 7021-8 ####[facility] LABORATORYCLIA [id number] [place] [address] [place] Nucleated RBC/100 WBC (Bld) [Ratio] 0.0 /100 WBC Normal [facility] Comment on above: Order Comment: Speci men Type: BLOOD SPECIMENOrdering Facility: [facility] Address: [address] [place] [address] Performed By: #### 5 7021-8 ####[facility] LABORATORYCLIA [id number] [place] [address] [place] Platelet mean volume (Bld) [Entitic vol] 8.1 fL Low 9.0-12.7 [facility] Comment on above: Order Comment: Speci men Type: BLOOD SPECIMENOrdering Facility: [facility] Address: [address] [place] [address] Performed By: #### 5 7021-8 ####[facility] LABORATORYCLIA [id number] [place] [address] [place] Platelets (Bld) [#/Vol] 316 10*3/uL Normal 150-400 [facility] Comment on above: Order Comment: Speci men Type: BLOOD SPECIMENOrdering Facility: [facility] Address: [address] [place] [address] Performed By: #### 5 7021-8 ####[facility] LABORATORYCLIA [id number] [place] [address] [place] RBC (Bld) [#/Vol] 4.61 10*6/uL Normal 3.90-5.20 [facility] Comment on above: Order Comment: Speci men Type: BLOOD SPECIMENOrdering Facility: [facility] Address: [address] [address] Performed By: #### 5 7021-8 ####[facility] LABORATORYCLIA [id number] [place] WBC (Bld) [#/Vol] 6.98 10*3/uL Normal 3.70-11.00 [facility] Comment on above: Order Comment: Speci men Type: BLOOD SPECIMENOrdering Facility: [facility] Address: [address] [place] [address] Performed By: #### 5 7021-8 ####[facility] LABORATORYCLIA [id number] [place] [id number] [facility]23 CONSULT HNO ID: [id number] Author: ERICA RANDOLPH MD Service: Cardiovascular Medicine Author Type: Physician Type: Consults Filed: 10/22/2023 15:53 Note Text: CONSULT: CARDIOLOGY PATIENT NAME: Db Doan SERVICE DATE: 10/22/2023 SERVICE TIME: 9:58 AM CONSULTING PHYSICIAN: Erica Randolph MD PCP: Maria Elena Montalvo MD ATTENDING: Lance Sr MD CONSULTING PROVIDER: Lance Sr MD REASON FOR CONSULT: Syncope ASSESSMENT: Reported syncope. Resolved spontaneously. Chest pain. History of prolonged episodes of chest pain not related to exertion. Will rule out ischemia. EKG : NSR. No old EKG for comparison, but no concerning findings. HS VICKY normal x 2. Tele : NSR. Echo today : Ejection fraction 59%. Stress test in the am. (Had coffee today AND concern for unsteadiness w/ exercise stress.) Other problems: Hx Seizure DO COPD Depression / anxiety Ankylosing spondylitis ADMISSION DIAGNOSIS: Syncope and collapse determined by examination [R55] HPI: Ms. Doan is a 53 year old female with a PMH of COPD, anxiety, depression, ankylosing spondylitis, fibromyalgia, cervical radiculopathy, epilepsy, migraines, chronic LBP w/ sciatica, PTSD who presented to the ED with complaint of syncope. On 10/07 she had a steroid injection in her low back and the pain has been worse since. She has had decreased oral intake d/t the pain and felt she was lightheaded and dehydrated then had a syncopal episode witnessed by her mother. She fell to the ground on her right side without hitting her head. She was out for about a minute and a half. The patient describes the sensation of her dizziness as if she is unsteady and drunk. [place] like her eyes were fluttering, but also felt her vision go dark and is certain she had LOC. She also states she has had intermittent left sided chest achy pain which can last a long time and is nonexertional. Pt is very anxious and becomes tearful because her dad from an [place] in his late 30s. She denies SOB, palpitations, diaphoresis, orthopnea or PND. She still smokes cigarettes. HISTORY: PAST MEDICAL HISTORY No date: Anxiety attack No date: Brachial neuritis or radiculitis NOS 03/23/2022: Centrilobular emphysema (HCC) No date: Cervical radiculopathy No date: Cervicalgia No date: Disc displacement, lumbar No date: Displacement of cervical intervertebral disc without myelopathy No date: Generalized convulsive epilepsy without intractable epilepsy (HCC) No date: Intractable pain No date: Lumbar radiculopathy No date: Migraine without aura No date: Other chronic pain No date: PTSD (post-traumatic stress disorder) No date: Reactive depression No date: Sprain or strain of cervical spine No past surgical history on file. FAMILY HISTORY Problem Relation Age of Onset Coronary Artery Disease Father SOCIAL Social History Tobacco Use Smoking status: Every Day Current packs/day: 0.50 Types: Cigarettes Vaping Use Vaping status: Never Used Substance Use Topics Alcohol use: Never Drug use: Never ALLERGIES: ALLERGIES No Known Allergies MEDICATIONS: Prior to Admission Medications: cyclobenzaprine (FLEXERIL) 10 mg tablet, Take 10 mg by mouth at bedtime as needed (muscle spasms)., Disp: , Rfl: , Unknown gabapentin (NEURONTIN) 600 mg tablet, Take 600 mg by mouth three times a day., Disp: , Rfl: , 10/22/2023 HYDROXYZINE HCL ORAL, Take by mouth once daily as needed. Unknown dosage, Disp: , Rfl: , Unknown DULoxetine (CYMBALTA) 60 mg capsule, Take 1 capsule by mouth once daily for 14 days., Disp: 14 capsule, Rfl: 0, 10/22/2023 TRELEGY ELLIPTA 200-62.5-25 mcg inhalation powder, inhale 1 puff once daily, Disp: , Rfl: , Unknown lidocaine (LIDODERM) 5 %, , Disp: , Rfl: , Unknown lamoTRIgine (LAMICTAL) 100 mg tablet, Take 1 tablet by mouth twice daily., Disp: 60 tablet, Rfl: 6, 10/22/2023 LIDOCAINE PAIN RELIEF 4 % patch, , Disp: , Rfl: Current Facility-Administered Medications Medication Dose Route Frequency lidocaine patch - REMOVE OTHER ONCE And lidocaine - VERIFY PATCH OTHER ONCE heparin 5,000 Units injection 5,000 Units SUBCUTANEOUS q 12 H NaCl 0.9% iv flush bag 20 mL INTRAVENOUS PRN NaCl 0.9% iv infusion 75 mL/hr INTRAVENOUS CONTINUOUS prochlorperazine 5 mg injection (COMPAZINE) 5 mg INTRAVENOUS q 6 H PRN docusate sodium 100 mg cap(s) (COLACE) 100 mg ORAL BID PRN acetaminophen 650 mg tab(s) (TYLENOL) 650 mg ORAL q 6 H PRN traMADol 25 mg tab(s) (ULTRAM) 25 mg ORAL q 6 H PRN [START ON 10/23/2023] lidocaine 4 % 1 Patch (SALONPAS) 1 Patch TRANSDERMAL DAILY And [START ON 10/23/2023] lidocaine patch - REMOVE OTHER AT BEDTIME And [START ON 10/23/2023] lidocaine - VERIFY PATCH OTHER q 8 H DULoxetine 60 mg cap(s) (CYMBALTA) 60 mg ORAL BID gabapentin 600 mg tab(s) (NEURONTIN) 600 mg ORAL TID hydrOXYzine HCl 25 mg tab(s) (ATARAX) 25 mg ORAL q 8 H PRN lamoTRIgine (LaMICtal) tab(s) 150 mg 150 mg ORA (more content not included)... [facility] CONSULT HNO ID: [id number] Author: MARIELY SALTER DO Service: Neurology General Author Type: Physician Type: Consults Filed: 10/22/2023 17:50 Note Text: [facility] Neurologic Initial Consultation Patient Name: Db Doan Date of : 1970 Primary Care Physician: Maria Elena Montalvo MD Consulting Physician: Lance Sr MD Date of Service: October 22, 2023 Impressions and Recommendations: 1.) Syncope - The patient has a non-focal neurologic history and physical examination. There are no reports of post ictal confusion, tongue biting, loss of bowel or bladder control, or any seizure like activity. I don't suspect that this syncopal event represents a primary neurological process such as stroke, TIA, or seizure. This was in the setting of feeling poorly over the past couple of the week and eating very little. - continue supportive care - monitor for expected course - no additional neurologic testing needed at this point -Okay with discharge from a neurological standpoint Chief Complaint/Reason for Consult: syncope and collapse History of Present Illness: Db Doan is a 53 year old right-handed female who I was asked to see for an acute change in neurological status in regard to the above chief complaint. History is obtained by a thorough review of the electronic medical records and speaking with the patient. Patient reported to the emergency room very early in the morning with complaints of dizziness. She had a low back injection 2 weeks ago on the sixth and said ever since then she has been feeling dehydrated and very lightheaded. She also reports that she feels unsteady when she is walking. She denies a spinning sensation. She has no tinnitus or hearing loss. She said she has been eating poorly. Details are scant but apparently a syncopal event was witnessed to her mother falling to the ground landing on her right side. She denies striking her head. No seizure activity was reported. Nothing focal was reported. They did a head CT in the ER that was unremarkable. There are no additional associated signs or symptoms. There are no additional modifying factors. No CP, SOB, or nausea. Although it appears it is being reported that she has epilepsy I can find no such history and she denies such. Comprehensive Review Of Systems: Except as already mentioned, the remaining 13 ROS, done in a thorough and comprehensive manner with a good audrey effort, are negative. Allergies:ALLERGIES No Known Allergies Medications: Current Facility-Administered Medications Medication Dose Route Frequency lidocaine patch - REMOVE OTHER ONCE And lidocaine - VERIFY PATCH OTHER ONCE heparin 5,000 Units injection 5,000 Units SUBCUTANEOUS q 12 H NaCl 0.9% iv flush bag 20 mL INTRAVENOUS PRN NaCl 0.9% iv infusion 75 mL/hr INTRAVENOUS CONTINUOUS prochlorperazine 5 mg injection (COMPAZINE) 5 mg INTRAVENOUS q 6 H PRN docusate sodium 100 mg cap(s) (COLACE) 100 mg ORAL BID PRN acetaminophen 650 mg tab(s) (TYLENOL) 650 mg ORAL q 6 H PRN traMADol 25 mg tab(s) (ULTRAM) 25 mg ORAL q 6 H PRN [START ON 10/23/2023] lidocaine 4 % 1 Patch (SALONPAS) 1 Patch TRANSDERMAL DAILY And [START ON 10/23/2023] lidocaine patch - REMOVE OTHER AT BEDTIME And [START ON 10/23/2023] lidocaine - VERIFY PATCH OTHER q 8 H DULoxetine 60 mg cap(s) (CYMBALTA) 60 mg ORAL BID gabapentin 600 mg tab(s) (NEURONTIN) 600 mg ORAL TID hydrOXYzine HCl 25 mg tab(s) (ATARAX) 25 mg ORAL q 8 H PRN lamoTRIgine (LaMICtal) tab(s) 150 mg 150 mg ORAL DAILY cyclobenzaprine 10 mg tab(s) (FLEXERIL) 10 mg ORAL AT BEDTIME PRN budesonide 0.5 mg/2 mL 1 mg (PULMICORT) 1 mg INHALATION BID And ipratropium-albuterol 3 mL nebulizer solution (DUONEB) 3 mL INHALATION QID Pre-admission (Not in a hospital admission) Past Medical History: PAST MEDICAL HISTORY No date: Anxiety attack No date: Brachial neuritis or radiculitis NOS 03/23/2022: Centrilobular emphysema (HCC) No date: Cervical radiculopathy No date: Cervicalgia No date: Disc displacement, lumbar No date: Displacement of cervical intervertebral disc without myelopathy No date: Generalized convulsive epilepsy without intractable epilepsy (HCC) No date: Intractable pain No date: Lumbar radiculopathy No date: Migraine without aura No date: Other chronic pain No date: PTSD (post-traumatic stress disorder) No date: Reactive depression No date: Sprain or strain of cervical spine Past Surgical History:No past surgical history on file. Family History: FAMILY HISTORY Problem Relation Age of Onset Coronary Artery Disease Father Social History: Social History Tobacco Use Smoking status: Every Day Current packs/day: 0.50 Types: Cigarettes Vaping Use Vaping status: Never Used Substance Use Topics Alcohol use: Never Drug use: Never NEUROLOGIC SINGLE SYSTEM EXAM: Vital Signs: BP 134/72 Pulse 85 Temp 36.9 ?C (98.4 ?F) (Ora (more content not included)... Normal [facility] Comprehensive metabolic 2000 panelon 10-22-2023 Albumin [Mass/Vol] 4.2 g/dL Normal 3.9-4.9 [facility] Comment on above: Order Comment: Speci men Type: BLOOD SPECIMENOrdering Facility: [facility] Address: [address] [place] [address] Performed By: #### 2 4323-8, [id number], ####[facility] LABORATORYCLIA [id number] [place] [address] [place] ALP [Catalytic activity/Vol] 68 U/L Normal 34-123 [facility] Comment on above: Order Comment: Speci men Type: BLOOD SPECIMENOrdering Facility: [facility] Address: [address] [place] [address] Performed By: #### 2 4323-8, [id number], ####[facility] LABORATORYCLIA [id number] [place] [address] [place] ALT [Catalytic activity/Vol] 22 U/L Normal 7-38 [facility] Comment on above: Order Comment: Speci men Type: BLOOD SPECIMENOrdering Facility: [facility] Address: [address] [place] [address] Performed By: #### 2 4323-8, [id number], ####[facility] LABORATORYCLIA [id number] [place] [id number] [place] Anion gap [Moles/Vol] 9 mmol/L Normal 8-15 [facility] Comment on above: Order Comment: Speci men Type: BLOOD SPECIMENOrdering Facility: [facility] Address: [address] [place] [address] Performed By: #### 2 4323-8, [id number], ####[facility] LABORATORYCLIA [id number] [place] [id number] [place] AST [Catalytic activity/Vol] 21 U/L Normal 13-35 [facility] Comment on above: Order Comment: Speci men Type: BLOOD SPECIMENOrdering Facility: [facility] Address: [address] [place] [address] Performed By: #### 2 4323-8, [id number], ####[facility] LABORATORYCLIA [id number] [place] [id number] [place] Bilirubin [Mass/Vol] 0.2 mg/dL Normal 0.2-1.3 [facility] Comment on above: Order Comment: Speci men Type: BLOOD SPECIMENOrdering Facility: [facility] Address: [address] [place] [address] Performed By: #### 2 4323-8, [id number], ####[facility] LABORATORYCLIA [id number] [place] [address] [place] Calcium [Mass/Vol] 9.5 mg/dL Normal 8.5-10.2 [facility] Comment on above: Order Comment: Speci men Type: BLOOD SPECIMENOrdering Facility: [facility] Address: [address] [place] [address] Performed By: #### 2 4323-8, [id number], ####[facility] LABORATORYCLIA [id number] [place] [address] [place] Chloride [Moles/Vol] 97 mmol/L Low 98-107 [facility] Comment on above: Order Comment: Speci men Type: BLOOD SPECIMENOrdering Facility: [facility] Address: [address] [place] [address] Performed By: #### 2 4323-8, [id number], ####[facility] LABORATORYCLIA [id number] [place] [id number] [place] CO2 [Moles/Vol] 30 mmol/L Normal 22-30 [facility] Comment on above: Order Comment: Speci men Type: BLOOD SPECIMENOrdering Facility: [facility] Address: [address] [place] [address] Performed By: #### 2 4323-8, [id number], ####[facility] LABORATORYCLIA [id number] [place] [id number] [place] Creatinine [Mass/Vol] 0.69 mg/dL Normal 0.58-0.96 [facility] Comment on above: Order Comment: Speci men Type: BLOOD SPECIMENOrdering Facility: [facility] Address: [address] [place] [address] Performed By: #### 2 4323-8, [id number], ####[facility] LABORATORYCLIA [id number] [place] [id number] [place] Creatinine and Glomerular filtration rate.predicted panel (S/P/Bld) 105 mL/min/1.73m??? Normal >=60 [facility] Comment on above: Order Comment: [facility] Type: BLOOD SPECIMENOrdering Facility: [facility] Address: [address] [place] [address] Result Comment: Rah mated Glomerular Filtration Rate (eGFR) is calculated using the 2020 CKD-EPI creatinine equation. This equation utilizes serum creatinine, sex, and age as parameters. The creatinine assay has traceable calibration to isotope dilution-mass spectrometry. Refer to KDIGO guidelines for clinical interpretation. In patients with unstable renal function, e.g. those with acute kidney injury, the eGFR may not accurately reflect actual GFR. Performed By: #### 2 4323-8, [id number], ####[facility] LABORATORYCLIA [id number] [place] [id number] [place] Glucose [Mass/Vol] 91 mg/dL Normal 74-99 [facility] Comment on above: Order Comment: Speci ana Type: BLOOD SPECIMENOrdering Facility: [facility] Address: [address] [place] [address] Result Comment: The [place] Diabetes [employer] (ADA) provides guidance for cutoff values for fasting glucose and random glucose. The ADA defines fasting as no caloric intake for at least 8 hours. Fasting plasma glucose results between 100 to 125 mg/dL indicate increased risk for diabetes (prediabetes). Fasting plasma glucose results greater than or equal to 126 mg/dL meet the criteria for diagnosis of diabetes. In the absence of unequivocal hyperglycemia, results should be confirmed by repeat testing. In a patient with classic symptoms of hyperglycemia or hyperglycemic crisis, random plasma glucose results greater than or equal to 200 mg/dL meet the criteria for diagnosis of diabetes. Reference: Standards of Medical Care in Diabetes 2016, [place] [employer]. Diabetes Care. 2016.39(Suppl 1). Performed By: #### 2 4323-8, [id number], ####[facility] LABORATORYCLIA [id number] [place] [address] [place] Potassium [Moles/Vol] 4.1 mmol/L Normal 3.7-5.1 [facility] Comment on above: Order Comment: Speci men Type: BLOOD SPECIMENOrdering Facility: [facility] Address: [address] [place] [address] Performed By: #### 2 4323-8, [id number], ####[facility]CLIA [id number] [place] [address] [place] Protein [Mass/Vol] 6.4 g/dL Normal 6.3-8.0 [facility] Comment on above: Order Comment: Speci men Type: BLOOD SPECIMENOrdering Facility: [facility] Address: [address] [place] [address] Performed By: #### 2 4323-8, [id number], ####[facility] LABORATORYCLIA [id number] [place] [id number] [place] Sodium [Moles/Vol] 136 mmol/L Normal 136-144 [facility] Comment on above: Order Comment: Nishii men Type: BLOOD SPECIMENOrdering Facility: [facility] Address: [address] [place] [address] Performed By: #### 2 4323-8, [id number], ####[facility] LABORATORYCLIA [id number] [place] [id number] [place] Urea nitrogen [Mass/Vol] 8 mg/dL Normal 09-21 [facility] Comment on above: Order Comment: Speci men Type: BLOOD SPECIMENOrdering Facility: [facility] Address: [address] [place] [address] Performed By: #### 2 4323-8, [id number], 67877-7 ####[facility] LABORATORYCLIA [id number] [place] [id number] [place] ECG COMPLETEon 10-22-2023 ECG COMPLETE Ventricular Rate : 8 2 BPM Atrial Rate : 82 BPM P-R Interval : 164 ms QRS Duration : 84 ms Q-T Interval : 420 ms QTC Calculation(Bazett) : 490 ms Calculated P [place] : 78 degrees Calculated R [place] : 48 degrees Calculated T [place] : 58 degrees NORMAL SINUS RHYTHM POSSIBLE LEFT ATRIAL ENLARGEMENT LOW VOLTAGE QRS PROLONGED QT ABNORMAL ECG NO PREVIOUS ECGS AVAILABLE Confirmed by DO CAPONE JEREMY ([id number]), industrial editor YAMILET MARIN () on 10/23/2023 7:52:06 AM NAME : DB DOAN PID : [id number] : 1970 Gender : Female Race : ORD : [id number] Procedure Date : Oct 22 2023 07:56:21 Edit Date : Oct 23 2023 07:57:08 Diagnosis: NORMAL SINUS RHYTHM POSSIBLE LEFT ATRIAL ENLARGEMENT LOW VOLTAGE QRS PROLONGED QT ABNORMAL ECG NO PREVIOUS ECGS AVAILABLE Confirmed by DO CAPONE JEREMY ([id number]), industrial editor YAMILET MARIN () on 10/23/2023 7:52:06 AM Test Reason : Chest Pain Location : 1 : 1 ED Overread By : DO CAPONE JEREMY Edited By : YAMILET MARIN Referred By : , Acquired by : [id number], Normal [facility] ECHOon 10-22-2023 Echocardiography Echocardiography Report: Transthoracic Echo [facility] Date of service: 10/22/2023 1:23:09 PM Ordering physician: ELIF ALLEN Indication: Syncope Technologist: Minna FIELD Interpreting physician: Erica Randolph MD PATIENT: Name: DB DOAN : 1970 Age: 53 years Gender: F Primary rhythm: sinus. Height: 170.18 cm BSA: 1.76 m Weight: 65.32 kg BMI: 22.6 kg/m Heart rate 79 bpm Blood pressure 130/75 mmHg Color Doppler was utilized to interrogate the cardiac valves assessed and spectral Doppler was utilized to determine the flow velocities and pressure gradients reported in this exam. Myocardial strain analysis was performed in this exam to aid in the assessment of cardiac function. MEASUREMENTS: Value Indexed Normal Left atrial volume 25 ml (biplane A-L) 14 ml/m Litzy <= 34 LV ID (diastole) 4.7 cm (2D) 2.67 cm/m LV ID (systole) 2.9 cm (2D) 1.65 cm/m IVS, leaflet tips 0.8 cm (2D) Posterior wall thickness 0.8 cm (2D) Left ventricular mass 122 g (2D) 70 g/m Global peak long strain -18.6 % LV stroke volume 40 ml (2D 4-ch.) LV end diastolic volume 68 ml (2D 4-ch.) 39.0 ml/m 29<=EDVi<62 LV end systolic volume 28 ml (2D 4-ch.) 16.2 ml/m Ejection Fraction 59 % (2D 4-ch.) EF > 54 FINDINGS: LEFT VENTRICLE The left ventricle is normal in size. Left ventricular systolic function is normal. Global LV myocardial strain is normal. Normal left ventricular diastolic function. Mitral annular lateral E/e': 6.2. Mitral annular septal E/e': 7.2. Wall Motion: All scored segments are normal. RIGHT VENTRICLE The right ventricle is normal in size. Right ventricular systolic function is normal. RV systolic tissue Doppler velocity is 14.0 cm/s. Tricuspid annular displacement is 1.7 cm. Estimated right ventricular systolic pressure is not reported due to an insufficient tricuspid regurgitation signal. Estimated right atrial pressure is 3 mmHg based on IVC assessment. LEFT ATRIUM The left atrial cavity is normal in size. Pulmonary Veins: The pulmonary venous pattern showed normal systolic flow. RIGHT ATRIUM The right atrial cavity is normal in size. Inferior Vena Cava: The inferior vena cava appears normal measuring 0.8 cm. The vessel decreases greater than 50 percent with inspiration. MITRAL VALVE The mitral valve leaflets are structurally normal. [place] mitral valve. There is trace mitral valve regurgitation. The pressure half time is 46 msec. The peak mitral E/A ratio is 1.22. The average mitral E/e' ratio is 6.7. The mitral flow deceleration time is 158 msec. TRICUSPID VALVE The tricuspid valve leaflets are structurally normal. [place] tricuspid valve. There is trace tricuspid valve regurgitation. AORTIC VALVE The aortic valve cusps are structurally normal. There is trace aortic valve regurgitation. Tricuspid aortic valve. PULMONIC VALVE The pulmonic valve cusps are structurally normal. There is trace pulmonic valve regurgitation. PULMONARY ARTERIES The pulmonary arteries are normal. PERICARDIUM There is no pericardial effusion. CONCLUSIONS: - Exam indication: Syncope - The left ventricle is normal in size. Left ventricular systolic function is normal. EF = 59 5% (2D 4-ch.) Normal left ventricular diastolic function. - The right ventricle is normal in size. Right ventricular systolic function is normal. - There are no significant valvular abnormalities. - The patient has not had a prior [facility] echocardiographic exam for comparison. * * * Final * * * [facility] : [id number] ISUID [facility] ED NOTEon 10-22-2023 ED NOTE HNO ID: [id number] Author: BRANDON CARDENAS RN Service: Emergency Medicine Author Type: Registered Nurse Type: ED Notes Filed: 10/22/2023 09:13 Note Text: 6 floor notified of RN handoff [facility] ED NOTE HNO ID: [id number] Author: CHELSI FISHER, Medic Service: ? Author Type: Real Estate Underwriter and Melter Caster Type: ED Notes Filed: 10/22/2023 06:39 Note Text: Patient to ED with dizziness, lower back pain and hip pain after a syncopal episode at 1700 yesterday in which she had LOC for 5 minutes but didn't hit her head (per patient mother who witnessed). [facility] ED PROV NOTEon 10-22-2023 ED PROV NOTE HNO ID: [id number] Author: ISABEL CAPONE DO Service: Emergency Medicine Author Type: Physician Type: ED Provider Notes Filed: 10/22/2023 11:57 Note Text: ED Provider Note Patient Name: Db Doan : 1970 SERVICE DATE: 10/22/23 History Patient presents with: Dizziness Low Back Pain Hip Pain Patient is a 53-year-old female with PMH anxiety, emphysema, ankylosing spondylitis, COPD, fibromyalgia, cervical radiculopathy, epilepsy, migraines, chronic low back pain with sciatica, PTSD presenting to ED for syncope. On 10/07 had steroid injection into her back per chronic back pain. States since then she feels her back pain has been worse and has caused decreased appetite and she feels she may be dehydrated as yesterday she felt very lightheaded like she was in a pass out and had a syncopal event. Her mom did witness the event where she fell to the ground landing on her right side. She did not hit her head. She was out for about a minute and a half before coming to. States she now has pain to her right hip as well after the fall. Lightheadedness has improved and she has been ambulatory since. She denies any fevers or chills, cough or congestion, CP or SOB, nausea vomiting or diarrhea, abdominal pain, urinary changes, paresthesias or weakness in the extremities. She does states she has chronic numbness to the left side of her groin, nothing new or worsening. No loss of bowel or bladder function. No tongue or mouth injury. No open wounds. History provided by: Patient jack spooler tender used: No PAST MEDICAL HISTORY No date: Anxiety attack No date: Brachial neuritis or radiculitis NOS 03/23/2022: Centrilobular emphysema (HCC) No date: Cervical radiculopathy No date: Cervicalgia No date: Disc displacement, lumbar No date: Displacement of cervical intervertebral disc without myelopathy No date: Generalized convulsive epilepsy without intractable epilepsy (HCC) No date: Intractable pain No date: Lumbar radiculopathy No date: Migraine without aura No date: Other chronic pain No date: PTSD (post-traumatic stress disorder) No date: Reactive depression No date: Sprain or strain of cervical spine No past surgical history on file. FAMILY HISTORY Problem Relation Age of Onset Coronary Artery Disease Father Social History Tobacco Use Smoking status: Every Day Current packs/day: 0.50 Types: Cigarettes Smokeless tobacco: Not on file Vaping Use Vaping status: Never Used Substance and Sexual Activity Alcohol use: Never Drug use: Never Sexual activity: Not on file ALLERGIES No Known Allergies Review of Systems Constitutional: Positive for appetite change. Negative for chills and fever. HENT: Negative. Respiratory: Negative. Cardiovascular: Negative. Gastrointestinal: Negative. Genitourinary: Negative. Musculoskeletal: Positive for arthralgias and back pain. Skin: Negative. Allergic/Immunologic: Negative. Neurological: Positive for syncope and light-headedness. Negative for dizziness, weakness, numbness and headaches. Hematological: Negative. Physical Exam Vitals [10/22/23 0635] BP Pulse Temp Temp src Resp SpO2 Weight Height 119/88 (!) 95 36.9 ?C (98.4 ?F) Oral 16 99 % 63.5 kg (140 lb) 1.702 m (5' 7) Physical Exam Vitals and nursing note reviewed. Constitutional: Appearance: She is not diaphoretic. Comments: Alert and oriented x 3. No acute distress. Not acutely ill or toxic appearing. HENT: Head: Normocephalic and atraumatic. Comments: No obvious or palpable deformities. No septal hematomas or subconjunctival hemorrhages. Nose: Nose normal. Mouth/Throat: Pharynx: Oropharynx is clear. Eyes: Extraocular Movements: Extraocular movements intact. Conjunctiva/sclera: Conjunctivae normal. Pupils: Pupils are equal, round, and reactive to light. Cardiovascular: Rate and Rhythm: Normal rate and regular rhythm. Pulses: Normal pulses. Heart sounds: Normal heart sounds. No murmur heard. No friction rub. No gallop. Pulmonary: Effort: Pulmonary effort is normal. No respiratory distress. Breath sounds: Normal breath sounds. Abdominal: General: There is no distension. Palpations: Abdomen is soft. Tenderness: There is no abdominal tenderness. Comments: No pulsatile abdominal mass Musculoskeletal: General: Normal range of motion. Cervical back: Normal range of motion and neck supple. No rigidity or tenderness. Comments: Diffuse tenderness across the lower back. No bony step-offs/deformities. Moves all extremities without difficulty. 2+ pulse in bilateral upper and lower extremities. Lymphadenopathy: Cervical: No cervical adenopathy. Skin: General: Skin is warm and dry. Capillary Refill: Capillary refill takes less than 2 seconds. Neurological: General: No focal deficit present. Mental Status: She is alert and oriented to person, place, and time. GCS: GCS eye subscore (more content not included)... Normal [facility] HCG Preg Ur Qlon 10-22-2023 HCG ( test) Ql (U) Negative Normal Negative [facility] Comment on above: Order Comment: Speci men Type: URINE SPECIMENOrdering Facility: [facility] Address: [address] [place] [address] Result Comment: This test is intended to aid in the early detection of . Very dilute urine samples, as indicated by a low specific gravity, may not contain advertising sales representative levels of hCG. This test detects intact hCG only. This test does not reliably detect hCG degradation products, including free-beta subunit and beta-core fragment. Therefore, this test may show reduced reactivity in urine after 8 weeks gestation. A number of conditions other than , including trophoblastic disease and certain non-trophoblastic neoplasms cause elevated levels of hCG. As with any assay employing mouse antibodies, the possibility exists for interference by human anti-mouse antibodies (HAMA) in the specimen. The test provides a presumptive diagnosis for . Performed By: #### 2 4356-8, 2106-3 ####[facility] LABORATORYCLIA [id number] [place] [address] [place] HIGH SENSITIVITY TROPONIN T (INITIAL)on 10-22-2023 Troponin T.cardiac High sensitivity method [Mass/Vol] 10 ng/L Normal <12 [facility] Comment on above: Order Comment: Speci men Type: BLOOD SPECIMENOrdering Facility: [facility] Address: [address] [place] [address] Performed By: #### 2 4323-8, [id number], 57732-3 ####[facility] LABORATORYCLIA [id number] [place] [id number] [place] HIGH SENSITIVITY TROPONIN T (SECOND)on 10-22-2023 Troponin T.cardiac High sensitivity method [Mass/Vol] 9 ng/L Normal <12 [facility] Comment on above: Order Comment: Speci men Type: BLOOD SPECIMENOrdering Facility: [facility] Address: [address] [place] [address] Performed By: #### L [id number] ####[facility] LABORATORYCLIA [id number] [place] [id number] [place] HISTORY PHYSICALon HISTORY PHYSICAL HNO ID: [id number] Author: LANCE SR MD Service: ? Author Type: Physician Type: H&P Filed: 10/22/2023 17:17 Note Text: HISTORY AND PHYSICAL EXAMINATION SERVICE DATE: 10/22/2023 SERVICE TIME: 5:14 PM PRIMARY CARE PHYSICIAN: Maria Elena Montalvo MD ASSESSMENT AND PLAN Patient Active Hospital Problem List: Syncope and collapse determined by examination Date Noted: 10/22/2023 Bilateral low back pain with left-sided sciatica Date Noted: 10/28/2014 Generalized anxiety disorder Date Noted: 10/28/2014 Epilepsy (HCC) Date Noted: 10/28/2014 Centrilobular emphysema (HCC) Date Noted: 03/23/2022 Fibromyalgia Date Noted: 10/22/2023 PTSD (post-traumatic stress disorder) Date Noted: 10/22/2023 Plan: Syncope: Physical examination is benign. No gross neurologic deficit. States was out for 1.5 min. No seizure. Cardiology and neuro consulted. Stress test planned for AM. COPD: Continue with respiratory treatment as needed. Anxiety: Management as outpatient. PTSD and FM: Continue with the same medications. LBP: sees pain management. SZD: On Lamictal. Gabapentin. SUBJECTIVE CHIEF COMPLAINT: passed out HPI: 53-year-old female with PMH anxiety, emphysema, ankylosing spondylitis, COPD, fibromyalgia, cervical radiculopathy, epilepsy, migraines, chronic low back pain with sciatica, PTSD presenting to ED for syncope. On 10/07 had steroid injection into her back per chronic back pain. States since then she feels her back pain has been worse and has caused decreased appetite and she feels she may be dehydrated as yesterday she felt very lightheaded like she was in a pass out and had a syncopal event. Her mom did witness the event where she fell to the ground landing on her right side. She did not hit her head. She was out for about a minute and a half before coming to. States she now has pain to her right hip as well after the fall. Lightheadedness has improved and she has been ambulatory since. She denies any fevers or chills, cough or congestion, CP or SOB, nausea vomiting or diarrhea, abdominal pain, urinary changes, paresthesias or weakness in the extremities. She does states she has chronic numbness to the left side of her groin, nothing new or worsening. No loss of bowel or bladder function. No tongue or mouth injury. No open wounds. PAST MEDICAL HISTORY: PAST MEDICAL HISTORY No date: Anxiety attack No date: Brachial neuritis or radiculitis NOS 03/23/2022: Centrilobular emphysema (HCC) No date: Cervical radiculopathy No date: Cervicalgia No date: Disc displacement, lumbar No date: Displacement of cervical intervertebral disc without myelopathy No date: Generalized convulsive epilepsy without intractable epilepsy (HCC) No date: Intractable pain No date: Lumbar radiculopathy No date: Migraine without aura No date: Other chronic pain No date: PTSD (post-traumatic stress disorder) No date: Reactive depression No date: Sprain or strain of cervical spine PAST SURGICAL HISTORY: None. FAMILY HISTORY: FAMILY HISTORY Problem Relation Age of Onset Coronary Artery Disease Father SOCIAL HISTORY: Social History Tobacco Use Smoking status: Every Day Current packs/day: 0.50 Types: Cigarettes Vaping Use Vaping status: Never Used Substance Use Topics Alcohol use: Never Drug use: Never MEDICATIONS: Prior to Admission Medications cyclobenzaprine (FLEXERIL) 10 mg tablet, Take 10 mg by mouth at bedtime as needed (muscle spasms)., Disp: , Rfl: , Unknown gabapentin (NEURONTIN) 600 mg tablet, Take 600 mg by mouth three times a day., Disp: , Rfl: , 10/22/2023 HYDROXYZINE HCL ORAL, Take by mouth once daily as needed. Unknown dosage, Disp: , Rfl: , Unknown DULoxetine (CYMBALTA) 60 mg capsule, Take 1 capsule by mouth once daily for 14 days., Disp: 14 capsule, Rfl: 0, 10/22/2023 TRELEGY ELLIPTA 200-62.5-25 mcg inhalation powder, inhale 1 puff once daily, Disp: , Rfl: , Unknown lidocaine (LIDODERM) 5 %, , Disp: , Rfl: , Unknown lamoTRIgine (LAMICTAL) 100 mg tablet, Take 1 tablet by mouth twice daily., Disp: 60 tablet, Rfl: 6, 10/22/2023 LIDOCAINE PAIN RELIEF 4 % patch, , Disp: , Rfl: CURRENT ALLERGIES: ALLERGIES No Known Allergies COMPLETE REVIEW OF SYSTEMS: GENERAL: No fever, wt loss, loss of appetite, fatigue HEENT: No epistaxis, no mouth ulcers NECK: no neck pain, masses RESPIRATORY: No sob, cough, DAHL, wheezing CARDIOVASCULAR: No cp, palp, leg edema, PND, orthopnea GI: No nausea,vomiting, diarrhea, constipation, abdominal pain. Reflux, blood in stool. : No hematuria, dysuria, flank pain, frequency. MUSCULOSKELETAL: chronic aches and pains. SKIN: No rashes, ulcers, itching. PSYCH: + anxiety, depression, insomnia. HEMATOLOGY/LYMPHOLOGY: No bruising, Hx of hematological problems, Hx of VTE ENDOCRINE: No polyuria, polydipsia, undue heat or cold intolerance NEURO: No seizures, syncope, numbness, focal weakness, tingling, dizziness, vertigo, slurred speech (more content not included)... Normal [facility] Magnesium SerPl-mCncon 10-21 Magnesium [Mass/Vol] 2.4 mg/dL High 1.7-2.3 [facility] Comment on above: Order Comment: Speci men Type: BLOOD SPECIMENOrdering Facility: [facility] Address: [address] [place] [address] Performed By: #### 2 4323-8, HLX2829, 52105-9 ####[facility] LABORATORYCLIA [id number] [place] [address] [place] NURSING PROGon 10-22-2023 NURSING PROG HNO ID: [id number] Author: MARIAELENA TAYLOR RN Service: Nursing Author Type: Registered Nurse Type: Nursing Progress Note Filed: 10/22/2023 10:21 Note Text: Other: Nursing assessment database complete. CASINO CASHIER medications reviewed with patient and updated. . JOB COACH/JOB DEVELOPER notified for admission orders. Safety measures in place. Normal [facility] Urinalysis complete panel (U )on 10-22-2023 Bilirubin Ql (U) Negative Normal Negative [facility] Comment on above: Order Comment: Speci men Type: URINE SPECIMENOrdering Facility: [facility] Address: [address] [place] [address] Performed By: #### 2 4356-8, 2105-05 ####[facility] LABORATORYCLIA [id number] [place] [id number] [facility] Performed By: #### 2 4356-8 ####[facility] LABORATORYCLIA [id number] [place] [id number] [place] Clarity (Unsp spec) Clear Normal Clear [facility] Comment on above: Order Comment: Speci men Type: URINE SPECIMENOrdering Facility: [facility] Address: [address] [place] [address] Performed By: #### 2 4356-8, 2105-05 ####[facility] [id number] [address] Performed By: #### 2 4356-8 ####[facility] [id number] [address] [place] Color (U) Yellow Normal Yellow [facility] Comment on above: Order Comment: Speci men Type: URINE SPECIMENOrdering Facility: [facility] Address: [address] [place] [address] Performed By: #### 2 4356-8, 2105-05 ####[facility] LABORATORYCLIA [id number] [address] [place] Performed By: #### 2 4356-8 ####[facility] LABORATORYCLIA [id number] [place] [id number] [place] Epithelial cells LM.HPF (Urine sed) [#/Area] Few Normal [facility] Comment on above: Order Comment: Speci men Type: URINE SPECIMENOrdering Facility: [facility] Address: [address] [place] [address] Performed By: #### 2 4356-8, 2105-05 ####[facility] MARGIE LABORATORYCLIA [id number] [place] [id number] [facility] [place] Performed By: #### 2 4356-8 ####[facility] LABORATORYCLIA [id number] [place] [id number] [facility] [place] Glucose Test strip (U) [Mass/Vol] Negative Normal Negative [facility] Comment on above: Order Comment: Speci men Type: URINE SPECIMENOrdering Facility: [facility] Address: [address] [place] [address] Performed By: #### 2 4356-8, 2105-05 ####[facility] KORTNEY LABORATORYCLIA [id number] [address] [place] Performed By: #### 2 4356-8 ####[facility] LABORATORYCLIA [id number] [place] [id number] [place] Hemoglobin Ql (U) Negative Normal Negative [facility] Comment on above: Order Comment: Speci men Type: URINE SPECIMENOrdering Facility: [facility] Address: [address] [place] [address] Performed By: #### 2 4356-8, 2105-05 ####[facility] LABORATORYCLIA [id number] [address] [place] Performed By: #### 2 4356-8 ####[facility] LABORATORYCLIA [id number] [place] [id number] [place] Ketones Ql (U) Negative Normal Negative [facility] Comment on above: Order Comment: Speci men Type: URINE SPECIMENOrdering Facility: [facility] Address: [address] [place] [id number] Performed By: #### 2 4356-8, 2105-05 ####[facility] LABORATORYCLIA [id number] [place] [id number] [place] Performed By: #### 2 4356-8 ####[facility] LABORATORYCLIA [id number] [place] [id number] [facility] Leukocyte esterase Test strip Ql (U) Negative Normal Negative [facility] Comment on above: Order Comment: Speci men Type: URINE SPECIMENOrdering Facility: [facility] Address: [address] [place] [address] Performed By: #### 2 4356-8, 2105-05 ####[facility] LABORATORYCLIA [id number] [place] [id number] [facility] [place] Performed By: #### 2 4356-8 ####[facility] LABORATORYCLIA [id number] [place] [id number] [place] Nitrite Ql (U) Negative Normal Negative [facility] Comment on above: Order Comment: Speci men Type: URINE SPECIMENOrdering Facility: [facility] Address: [address] [place] [address] Performed By: #### 2 4356-8, 2105-05 ####[facility] LABORATORYCLIA [id number] [address] [place] Performed By: #### 2 4356-8 ####[facility] LABORATORYCLIA [id number] [place] [id number] [place] pH (U) 6.5 [pH] Normal 5.0-8.0 [facility] Comment on above: Order Comment: Speci men Type: URINE SPECIMENOrdering Facility: [facility] Address: [address] [place] [address] Performed By: #### 2 4356-8, 2105-05 ####[facility] LABORATORYCLIA [id number] [place] [id number] [place] pH (U) 7.0 [pH] Normal 5.0-8.0 [facility] Comment on above: Order Comment: Speci men Type: URINE SPECIMENOrdering Facility: [facility] Address: [address] [place] [address] Performed By: #### 2 4356-8 ####[facility] LABORATORYCLIA [id number] [address] Protein (U) [Mass/Vol] Negative Normal Negative [facility] Comment on above: Order Comment: Speci men Type: URINE SPECIMENOrdering Facility: [facility] Address: [address] [place] [address] Performed By: #### 2 4356-8, 2105-05 ####[facility] KORTNEY LABORATORYCLIA [id number] [address] Performed By: #### 2 4356-8 ####[facility] LABORATORYCLIA [id number] [place] [id number] [facility] [place] RBC LM.HPF (Urine sed) [#/Area] 0-3 /HPF Normal 0-3 /HPF [facility] Comment on above: Order Comment: Speci men Type: URINE SPECIMENOrdering Facility: [facility] Address: [address] [place] [address] Performed By: #### 2 4356-8, 2105-05 ####[facility] K[facility]NEY LABORATORYCLIA [id number] [address] Performed By: #### 2 4356-8 ####[facility] LABORATORYCLIA [id number] [place] [id number] [facility] [place] Specific gravity (U) [Rel density] <=1.005 Low 1.005-1.030 [facility] Comment on above: Order Comment: Speci men Type: URINE SPECIMENOrdering Facility: [facility] Address: [address] [place] [address] Performed By: #### 2 4356-8, 2105-05 ####[facility] LABORATORYCLIA [id number] [address] Specific gravity (U) [Rel density] 1.010 Normal 1.005-1.030 [facility] Comment on above: Order Comment: Speci men Type: URINE SPECIMENOrdering Facility: [facility] Address: [address] [place] [address] Performed By: #### 2 4356-8 ####[facility] LABORATORYCLIA [id number] [address] Urobilinogen Ql (U) 0.2 EU/dL Normal 0.2-1.0 EU/dL [facility] Comment on above: Order Comment: Speci men Type: URINE SPECIMENOrdering Facility: [facility] Address: [address] [place] [address] Performed By: #### 2 4356-8, 2105-05 ####[facility] LABORATORYCLIA [id number] [address] Performed By: #### 2 4356-8 ####[facility] LABORATORYCLIA [id number] [address] WBC LM.HPF (Urine sed) [#/Area] 0-5 /HPF Normal 0-5 /HPF [facility] Comment on above: Order Comment: Speci men Type: URINE SPECIMENOrdering Facility: [facility] Address: [address] [place] [address] Performed By: #### 2 4356-8, 2105-05 ####[facility] LABORATORYCLIA [id number] [address] Performed By: #### 2 4356-8 ####[facility] LABORATORYCLIA [id number] [address] [place] XR CHEST 1V FRONTALon 2023 XR CHEST 1V FRONTAL * * *Final Report* * * DATE OF EXAM: Oct 22 2023 8:17AM SPX 5290 - XR CHEST 1V FRONTAL / PROCEDURE REASON: Syncope/presyncope * * * * Physician Interpretation * * * * RESULT: EXAM:XR HIP 3V PELV+ AP/LAT RT, XR CHEST 1V FRONTAL HISTORY: Fracture, hip. Syncope. COMPARISON:Chest CT October 17, 2023 IMPRESSION: CHEST: The lungs are clear. There is no pleural effusion. The cardiomediastinal silhouette is within limits of normal. Osseous structures are unremarkable. RIGHT HIP AND PELVIS: There is no evidence of fracture. Bilateral hip and sacroiliac joints are maintained. Mineralization is normal. Few pelvic phleboliths are noted. Transcribed Using Voice Recognition Transcribe Date/Time: Oct 22 2023 8:22A Dictated by: ALICIA DALAL MD This examination was interpreted and the report reviewed and electronically signed by: ALICIA DALAL MD on Oct 22 2023 8:26AM EST [id number] [facility] XR HIP 3V PELV+ AP/LAT RTon 10-22-2023 XR HIP 3V PELV+ AP/LAT RT * * *Final Report* * * DATE OF EXAM: Oct 22 2023 8:17AM SPX 5352 - XR HIP 3V PELV+ AP/LAT RT / PROCEDURE REASON: Fracture, hip * * * * Physician Interpretation * * * * RESULT: EXAM:XR HIP 3V PELV+ AP/LAT RT, XR CHEST 1V FRONTAL HISTORY: Fracture, hip. Syncope. COMPARISON:Chest CT October 17, 2023 IMPRESSION: CHEST: The lungs are clear. There is no pleural effusion. The cardiomediastinal silhouette is within limits of normal. Osseous structures are unremarkable. RIGHT HIP AND PELVIS: There is no evidence of fracture. Bilateral hip and sacroiliac joints are maintained. Mineralization is normal. Few pelvic phleboliths are noted. Transcribed Using Voice Recognition Transcribe Date/Time: Oct 22 2023 8:22A Dictated by: ALICIA DALAL MD This examination was interpreted and the report reviewed and electronically signed by: ALICIA DALAL MD on Oct 22 2023 8:26AM EST [id number] [facility] Cult,Urineon 10-19-2023 Cult,Urine Specimen Description .CLEAN CATCH URINE Special Requests Site: Urine Culture NO GROWTH Report Status FINAL 10/19/[address] [facility] Comment on above: Performed By: #### U ####[facility] [place] [address] [facility] Director: Darci Castle [place] [address] [address] lab Director: Lam Kenyon MD CBC with Auto Differentialon 10-18-2023 Basophils (Bld) [#/Vol] 0.02 10*3/uL [facility] Basophils/100 WBC (Bld) 0 % 0.0 - 2.0 % [facility] Eosinophils (Bld) [#/Vol] 0.09 10*3/uL [facility] Eosinophils/100 WBC (Bld) 1 % 0 - 6 % [facility] Erythrocyte distribution width (RBC) [Ratio] 12.3 % 11.5 - 15.0 % [facility] Hematocrit (Bld) [Volume fraction] 39.8 % 34.0 - 48.0 % [facility] Hemoglobin (Bld) [Mass/Vol] 13.8 g/dL 11.5 - 15.5 g/dL [facility] Immature granulocytes (Bld) [#/Vol] 0.03 10*3/uL [facility] Immature granulocytes/100 WBC (Bld) 0 % 0.0 - 5.0 % [facility] Interpretation and review of laboratory results Abnormal [facility] Lymphocytes/100 WBC (Bld) 29 % 20.0 - 42.0 % [facility] Lymphocytes/100 WBC (Bld) 2.26 % [facility] MCH (RBC) [Entitic mass] 33.0 pg 26.0 - 35.0 pg [facility] MCHC (RBC) [Mass/Vol] 34.7 g/dL High 32.0 - 34.5 g/dL [facility] MCV (RBC) [Entitic vol] 95.2 fL 80.0 - 99.9 fL [facility] Monocytes/100 WBC (Bld) 9 % 2.0 - 12.0 % [facility] Monocytes/100 WBC (Bld) 0.72 % [facility] Neutrophils/100 WBC (Bld) 59 % 43.0 - 80.0 % [facility] Platelet mean volume (Bld) [Entitic vol] 7.9 fL 7.0 - 12.0 fL [facility] Platelets (Bld) [#/Vol] 331 10*3/uL [facility] RBC (Bld) [#/Vol] 4.18 10*6/uL 3.50 - 5.5 0 m/uL [facility] Segmented neutrophils/100 WBC (Bld) 4.56 % [facility] WBC other (Bld) [#/Vol] 7.7 [facility] CBC with Diffon 10-18-2023 Abs. Basophil 0.02 k/uL Normal 0.00-0.20 [facility] Comment on above: Performed By: #### C MPX, MG, LACTIC, CBCWD, SED, TROPI ####[place] [address] [place], [place] [address])[phone] Director: Lam Kenyon MD Abs.Imm.Granulocyte 0.03 k/uL Normal 0.00-0.58 [facility] Comment on above: Performed By: #### C MPX, MG, LACTIC, CBCWD, SED, TROPI ####[place] [address] [place], [place] [address])[phone] Director: Lam Kenyon MD Abs.Neutrophil (Seg) 4.56 k/uL Normal 1.80-7.30 [facility] Comment on above: Performed By: #### C MPX, MG, LACTIC, CBCWD, SED, TROPI ####[place] [address] [place], [place] [address])[phone] Director: Lam Kenyon MD Basophils/100 WBC (Bld) 0 % Normal 0.0-2.0 [facility] Comment on above: Performed By: #### C MPX, MG, LACTIC, CBCWD, SED, TROPI ####[address] [address])[phone] Director: Lam Kenyon MD Eosinophils (Bld) [#/Vol] 0.09 10*3/uL Normal 0.05-0.50 [facility] Comment on above: Performed By: #### C MPX, MG, LACTIC, CBCWD, SED, TROPI ####[facility] [place] [address] Lab Director: Lam Kenyon MD Eosinophils/100 WBC (Bld) 1 % Normal 0-6 [facility] Comment on above: Performed By: #### C MPX, MG, LACTIC, CBCWD, SED, TROPI ####[place] [address] [place] [address] Lab Director: Lam Kenyon MD Erythrocyte distribution width (RBC) [Ratio] 12.3 % Normal 11.5-15.0 [facility] Comment on above: Performed By: #### C MPX, MG, LACTIC, CBCWD, SED, TROPI ####[place] [address] [place] [address] Lab Director: Lam Kenyon MD Hematocrit (Bld) [Volume fraction] 39.8 % Normal 34.0-48.0 [facility] Comment on above: Performed By: #### C MPX, MG, LACTIC, CBCWD, SED, TROPI ####[address] [address] Lab Director: Lam Kenyon MD Hemoglobin (Bld) [Mass/Vol] 13.8 g/dL Normal 11.5-15.5 [facility] Comment on above: Performed By: #### C MPX, MG, LACTIC, CBCWD, SED, TROPI ####[address] [address] Lab Director: Lam Kenyon MD Immature granulocytes/100 WBC (Bld) 0 % Normal 0.0-5.0 [facility] Comment on above: Performed By: #### C MPX, MG, LACTIC, CBCWD, SED, TROPI ####[place] [address] [place] [address] Lab Director: Lam Kenyon MD Lymphocytes (Bld) [#/Vol] 2.26 10*3/uL Normal 1.50-4.00 [facility] Comment on above: Performed By: #### C MPX, MG, LACTIC, CBCWD, SED, TROPI ####[facility] [address] [place] [address] Lab Director: Lam Kenyon MD Lymphocytes/100 WBC (Bld) 29 % Normal 20.0-42.0 [facility] Comment on above: Performed By: #### C MPX, MG, LACTIC, CBCWD, SED, TROPI ####[facility] [address] [place] [address] Lab Director: Lam Kenyon MD MCH (RBC) [Entitic mass] 33.0 pg Normal 26.0-35.0 [facility] Comment on above: Performed By: #### C MPX, MG, LACTIC, CBCWD, SED, TROPI ####[facility] [address] [place], [place] [address])[phone] Director: Lam Kenyon MD MCHC (RBC) [Mass/Vol] 34.7 g/dL High 32.0-34.5 [facility] Comment on above: Performed By: #### C MPX, MG, LACTIC, CBCWD, SED, TROPI ####[facility] [address] [place] [address]([facility])[phone] Director: Lam Kenyon MD MCV (RBC) [Entitic vol] 95.2 fL Normal 80.0-99.9 [facility] Comment on above: Performed By: #### C MPX, MG, LACTIC, CBCWD, SED, TROPI ####[facility] [address] [place], [place] [address])[phone] Director: Lam Kenyon MD Monocytes (Bld) [#/Vol] 0.72 10*3/uL Normal 0.10-0.95 [facility] Comment on above: Performed By: #### C MPX, MG, LACTIC, CBCWD, SED, TROPI ####[address] [place] [address] Lab Director: Lam Kenyon MD Monocytes/100 WBC (Bld) 9 % Normal 2.0-12.0 [facility] Comment on above: Performed By: #### C MPX, MG, LACTIC, CBCWD, SED, TROPI ####[facility] [address] [place] [address] Lab Director: Lam Kenyon MD Neutrophil (Seg) 59 % Normal 43.0-80.0 [facility] Comment on above: Performed By: #### C MPX, MG, LACTIC, CBCWD, SED, TROPI ####[facility] [address] [place] [address] Lab Director: Lam Kenyon MD Platelet mean volume (Bld) [Entitic vol] 7.9 fL Normal 7.0-12.0 [facility] Comment on above: Performed By: #### C MPX, MG, LACTIC, CBCWD, SED, TROPI ####[facility] [address] [place] [address]([facility])[phone] Director: Lam Kenyon MD Platelets (Bld) [#/Vol] 331 10*3/uL Normal 130-450 [facility] Comment on above: Performed By: #### C MPX, MG, LACTIC, CBCWD, SED, TROPI ####[facility] [address] [place], [place] [phone])[phone] Director: Lam Kenyon MD RBC (Bld) [#/Vol] 4.18 10*6/uL Normal 3.50-5.50 [facility] Comment on above: Performed By: #### C MPX, MG, LACTIC, CBCWD, SED, TROPI ####[facility] [place], [place] [phone])[phone] Director: Lam Kenyon MD WBC (Bld) [#/Vol] 7.7 10*3/uL Normal 4.5-11.5 [facility] Comment on above: Performed By: #### C MPX, MG, LACTIC, CBCWD, SED, TROPI ####[facility] [address] [place], [place] [phone] Lab Director: Lam Kenyon MD CNCOon 10-18-2023 CNCO Letter Text Normal [facility] Comp Metabolic Pr/rfx MGon 0 10-18-2023 Albumin [Mass/Vol] 4.1 g/dL Normal 3.5-5.2 [facility] Comment on above: Performed By: #### C MPX, MG, LACTIC, CBCWD, SED, TROPI ####[facility] [address] [place], [place] [phone] Lab Director: Lam Kenyon MD Alkaline Phos 69 U/L Normal 35-104 [facility] Comment on above: Performed By: #### C MPX, MG, LACTIC, CBCWD, SED, TROPI ####[facility] [address] [place], [place] [phone] Lab Director: Lam Kenyon MD ALT [Catalytic activity/Vol] 21 U/L Normal 0-32 [facility] Comment on above: Performed By: #### C MPX, MG, LACTIC, CBCWD, SED, TROPI ####[facility] [address] [place], [place] [phone] Lab Director: Lam Kenyon MD Anion gap [Moles/Vol] 13 mmol/L Normal 7-16 [facility] Comment on above: Performed By: #### C MPX, MG, LACTIC, CBCWD, SED, TROPI ####[facility] [address] [place], [place] [phone] Lab Director: Lam Kenyon MD AST [Catalytic activity/Vol] 20 U/L Normal 0-31 [facility] Comment on above: Performed By: #### C MPX, MG, LACTIC, CBCWD, SED, TROPI ####[facility] [address] [place] [address] Lab Director: Lam Kenyon MD Bilirubin [Mass/Vol] 0.2 mg/dL Normal 0.0-1.2 [facility] Comment on above: Performed By: #### C MPX, MG, LACTIC, CBCWD, SED, TROPI ####[facility] [place] [address] Lab Director: Lam Kenyon MD Calcium [Mass/Vol] 9.3 mg/dL Normal 8.6-10.2 [facility] Comment on above: Performed By: #### C MPX, MG, LACTIC, CBCWD, SED, TROPI ####[facility] [place] [address] Lab Director: Lam Kenyon MD Chloride [Moles/Vol] 100 mmol/L Normal 98-107 [facility] Comment on above: Performed By: #### C MPX, MG, LACTIC, CBCWD, SED, TROPI ####[facility] [address] [place] [address] Lab Director: Lam Kenyon MD CO2 [Moles/Vol] 27 mmol/L Normal 22-29 [facility] Comment on above: Performed By: #### C MPX, MG, LACTIC, CBCWD, SED, TROPI ####[facility] [place] [address] Lab Director: Lam Kenyon MD Creatinine [Mass/Vol] 0.7 mg/dL Normal 0.50-1.00 [facility] [facility] Comment on above: Performed By: #### C MPX, MG, LACTIC, CBCWD, SED, TROPI ####[facility] [place] [address] Lab Director: Lam Kenyon MD GFR/1.73 sq M.predicted among non-blacks MDRD (S/P/Bld) [Vol rate/Area] mL/min/{1.73_m2} Normal >60 [facility] Comment on above: Result Comment: These results are not intended for use in patients <18 years of age. eGFR results are calculated without a race factor using the 2020 CKD-EPI equation. Careful clinical correlation is recommended, particularly when comparing to results calculated using previous equations. The CKD-EPI equation is less accurate in patients with extremes of muscle mass, extra-renal metabolism of creatine, excessive creatine ingestion, or following therapy that affects renal tubular secretion. Performed By: #### C MPX, MG, LACTIC, CBCWD, SED, TROPI ####[facility] [place] [address] Lab Director: Lam Kenyon MD Glucose [Mass/Vol] 57 mg/dL Low 74-99 [facility] Comment on above: Performed By: #### C MPX, MG, LACTIC, CBCWD, SED, TROPI ####[id number] [place], [place] [address])[phone] Director: Lam Kenyon MD Potassium [Moles/Vol] 3.5 mmol/L Normal 3.5-5.0 [facility] Comment on above: Performed By: #### C MPX, MG, LACTIC, CBCWD, SED, TROPI ####[id number] [place] [address] Lab Director: Lam Kenyon MD Protein [Mass/Vol] 6.3 g/dL Low 6.4-8.3 [facility] Comment on above: Performed By: #### C MPX, MG, LACTIC, CBCWD, SED, TROPI ####[facility] [place] [address] Lab Director: Lam Kenyon MD Sodium [Moles/Vol] 140 mmol/L Normal 132-146 [facility] Comment on above: Performed By: #### C MPX, MG, LACTIC, CBCWD, SED, TROPI ####[facility] [place], [place] [address])[phone] Director: Lam Kenyon MD Urea nitrogen [Mass/Vol] 5 mg/dL Low 6-20 [facility] Comment on above: Performed By: #### C MPX, MG, LACTIC, CBCWD, SED, TROPI ####[facility] [address] [place] [address] lab Director: Lam Kenyon MD Comprehensive Metabolic Pane l w/ Reflex to MGon 10-18-2023 Albumin [Mass/Vol] 4.1 g/dL 3.5 - 5.2 g/dL [facility] ALP [Catalytic activity/Vol] 69 U/L 35 - 104 U/L [facility] ALT [Catalytic activity/Vol] 21 U/L 0 - 32 U/L [facility] Anion gap [Moles/Vol] 13 mmol/L 7 - 16 mmol/L [facility] AST [Catalytic activity/Vol] 20 U/L 0 - 31 U/L [facility] Bilirubin [Mass/Vol] 0.2 mg/dL 0.0 - 1 .2 mg/dL [facility] Calcium [Mass/Vol] 9.3 mg/dL 8.6 - 10. 2 mg/dL [facility] Chloride [Moles/Vol] 100 mmol/L 98 - 10 7 mmol/L [facility] CO2 [Moles/Vol] 27 mmol/L 22 - 29 mmol/L [facility] Creatinine [Mass/Vol] 0.7 mg/dL 0.50 - 1.00 mg/dL [facility] Est, Glom Filt Rate - PINF [facility] Comment on above: These results are not intended for use in patients <18 years of age. eGFR results are calculated without a race factor using the 2020 CKD-EPI equation. Careful clinical correlation is recommended, particularly when comparing to results calculated using previous equations. The CKD-EPI equation is less accurate in patients with extremes of muscle mass, extra-renal metabolism of creatine, excessive creatine ingestion, or following therapy that affects renal tubular secretion. Glucose [Mass/Vol] 57 mg/dL Low 74 - 99 mg/dL [facility] Interpretation and review of laboratory results Abnormal [facility] Potassium [Moles/Vol] 3.5 mmol/L 3.5 - 5.0 mmol/L [facility] Protein [Mass/Vol] 6.3 g/dL Low 6.4 - 8.3 g/dL [facility] Sodium [Moles/Vol] 140 mmol/L 132 - 146 mmol/L [facility] Urea nitrogen [Mass/Vol] 5 mg/dL Low 6 - 20 mg/dL [facility] D-Dimer, Quantitativeon 10-02 D-Dimer, Quant [facility] Comment on above: D-DIMER Interpretation: <230 ng/mL (D-DU) Indicates low probability for PE/DVT >= 4000/ng/mL (D-DU) This level could suggest the presence of DIC. Clinical correlation may be helpful. D-Dimer,Quantitativeon 10-17 D-dimer <200 Normal 0-230 [facility] Comment on above: Result Comment: D-DIMER Interpretation: <230 ng/mL (D-DU) Indicates low probability for PE/DVT >= 4000/ng/mL (D-DU) This level could suggest the presence of DIC. Clinical correlation may be helpful. Performed By: #### D DIMER ####[facility] [place] [address] Lab Director: Lam Kenyon MD Lactic Acidon 10-18-2023 Lactate (BldV) [Moles/Vol] 2.1 mmol/L 0.5 - 2.2 mmol/L [facility] Lactate [Moles/Vol] 2.1 mmol/L Normal 0.5-2.2 [facility] Comment on above: Performed By: #### C MPX, MG, LACTIC, CBCWD, SED, TROPI ####[facility] [place] [address] Lab Director: Lam Kenyon MD MR Lumbar spine WO and W con trast Maryann 10-18-2023 1. No evidence of epidural mass or abscess. 2. No central canal stenosis. 3. Mild bilateral neural foraminal narrowing present at L4/L5 more significant on the left and mild bilateral neural foraminal narrowing at L5/S1. 4. Tiny annular fissures are seen at L4/L5 and L5/S1. [facility] EXAMINATION: MRI OF THE LUMBAR SPINE WITHOUT AND WITH CONTRAST 10/18/2023 11:37 am TECHNIQUE: Multiplanar multisequence MRI of the lumbar spine was performed without and with the administration of intravenous contrast. COMPARISON: None. HISTORY: ORDERING SYSTEM PROVIDED HISTORY: Rule out epidural abscess, cauda equina TECHNOLOGIST PROVIDED HISTORY: Reason for exam:->Rule out epidural abscess, cauda equina Decision Support Exception - unselect if not a suspected or confirmed emergency medical condition->Emergency Medical Condition (MA) FINDINGS: 15 mL MultiHance utilized. No abnormal osseous enhancement. No enhancement involving conus medullaris or nerve roots. No evidence of epidural mass or hematoma. No fracture or malalignment. No prevertebral soft tissue edema. L1/L2: No central canal stenosis or neural foraminal narrowing. L2/L3: No central canal stenosis or neural foraminal narrowing. L3/L4: No central canal stenosis. There is mild bilateral neural foraminal narrowing L4/L5: Mild facet hypertrophy is present with mild circumferential disc bulge. There is a small focus of increased T2 and STIR signal associated with the central annulus at this location suggesting a small annular fissure. There is mild bilateral neural foraminal narrowing more significant on the left. L5/S1: Mild circumferential disc bulge is present. There is a tiny focus of increased signal associated with the left foraminal annulus at this level suggestive of a small annular fissure. There is mild bilateral neural foraminal narrowing. [facility] Ismael Hurst DO - 10/18/2023 EXAMINATION: MRI OF THE LUMBAR SPINE WITHOUT AND WITH CONTRAST 10/18/2023 11:37 am TECHNIQUE: Multiplanar multisequence MRI of the lumbar spine was performed without and with the administration of intravenous contrast. COMPARISON: None. HISTORY: ORDERING SYSTEM PROVIDED HISTORY: Rule out epidural abscess, cauda equina TECHNOLOGIST PROVIDED HISTORY: Reason for exam:->Rule out epidural abscess, cauda equina Decision Support Exception - unselect if not a suspected or confirmed emergency medical condition->Emergency Medical Condition (MA) FINDINGS: 15 mL MultiHance utilized. No abnormal osseous enhancement. No enhancement involving conus medullaris or nerve roots. No evidence of epidural mass or hematoma. No fracture or malalignment. No prevertebral soft tissue edema. L1/L2: No central canal stenosis or neural foraminal narrowing. L2/L3: No central canal stenosis or neural foraminal narrowing. L3/L4: No central canal stenosis. There is mild bilateral neural foraminal narrowing L4/L5: Mild facet hypertrophy is present with mild circumferential disc bulge. There is a small focus of increased T2 and STIR signal associated with the central annulus at this location suggesting a small annular fissure. There is mild bilateral neural foraminal narrowing more significant on the left. L5/S1: Mild circumferential disc bulge is present. There is a tiny focus of increased signal associated with the left foraminal annulus at this level suggestive of a small annular fissure. There is mild bilateral neural foraminal narrowing. IMPRESSION: 1. No evidence of epidural mass or abscess. 2. No central canal stenosis. 3. Mild bilateral neural foraminal narrowing present at L4/L5 more significant on the left and mild bilateral neural foraminal narrowing at L5/S1. 4. Tiny annular fissures are seen at L4/L5 and L5/S1. [facility] Radiology Study observation (narrative) [facility] MR Lumbar spine WO and W con trast IVOrdered By: Ismael Hurst on 10-18-2023 [facility] Work Phone: MRI LUMBAR SPINE W WO CONTRA STon 10-18-2023 MRI LUMBAR SPINE W WO CONTRAST EXAMINATION: MRI OF THE LUMBAR SPINE WITHOUT AND WITH CONTRAST 10/18/2023 11:37 am TECHNIQUE: Multiplanar multisequence MRI of the lumbar spine was performed without and with the administration of intravenous contrast. COMPARISON: None. HISTORY: ORDERING SYSTEM PROVIDED HISTORY: Rule out epidural abscess, cauda equina TECHNOLOGIST PROVIDED HISTORY: Reason for exam:->Rule out epidural abscess, cauda equina Decision Support Exception - unselect if not a suspected or confirmed emergency medical condition->Emergency Medical Condition (MA) FINDINGS: 15 mL MultiHance utilized. No abnormal osseous enhancement. No enhancement involving conus medullaris or nerve roots. No evidence of epidural mass or hematoma. No fracture or malalignment. No prevertebral soft tissue edema. L1/L2: No central canal stenosis or neural foraminal narrowing. L2/L3: No central canal stenosis or neural foraminal narrowing. L3/L4: No central canal stenosis. There is mild bilateral neural foraminal narrowing L4/L5: Mild facet hypertrophy is present with mild circumferential disc bulge. There is a small focus of increased T2 and STIR signal associated with the central annulus at this location suggesting a small annular fissure. There is mild bilateral neural foraminal narrowing more significant on the left. L5/S1: Mild circumferential disc bulge is present. There is a tiny focus of increased signal associated with the left foraminal annulus at this level suggestive of a small annular fissure. There is mild bilateral neural foraminal narrowing. IMPRESSION: 1. No evidence of epidural mass or abscess. 2. No central canal stenosis. 3. Mild bilateral neural foraminal narrowing present at L4/L5 more significant on the left and mild bilateral neural foraminal narrowing at L5/S1. 4. Tiny annular fissures are seen at L4/L5 and L5/S1. Interpreted by: Ismael Hurst DO Signed by: Ismael Hurst DO 10/18/23 Final result Normal [facility] Comment on above: Order Comment: Reaso n for exam:->Rule out epidural abscess, cauda equina Decision Support Exception - unselect if not a suspected or confirmed emergency medical condition->Emergency Medical Condition (MA) Magnesiumon 10-18-2023 Magnesium [Mass/Vol] 2.1 mg/dL 1.6 - 2 .6 mg/dL [facility] Magnesium [Mass/Vol] 2.1 mg/dL Normal 1.6-2.6 [facility] Comment on above: Performed By: #### C MPX, MG, LACTIC, CBCWD, SED, TROPI ####[facility] [place] [address] lab Director: Lam Kenyon MD No Panel InformationOrdered By: Sheree Isaac on 10-18-2023 [employer] POC Urine QualOrde red By: Sheree Isaac on 10-18-2023 Beta HCG ( test) Ql (U) Negative Negative [facility] CoursePeer Lot Number [id number] [facility] Negative QC Pass/Fail Pass [facility] Positive QC Pass/Fail Pass [facility] Sedimentation Rateon 024 ESR (Bld) [Velocity] 1 mm/h [facility] Sedimentation Rate 1 mm/Hr Normal 0-20 [facility] Comment on above: Performed By: #### C MPX, MG, LACTIC, CBCWD, SED, TROPI ####[facility] [address] [place] [address] Lab Director: Lam Kenyon MD Troponinon 10-18-2023 Troponin I.cardiac High sensitivity method [Mass/Vol] 6 ng/L 0 - 9 ng/L [facility] Comment on above: High Sensitivity Troponin values cannot be compared with other Troponin methodologies. Patients with high levels of Biotin oral intake (i.e >5mg/day) may have falsely decreased Troponin levels. Samples collected within 8 hours of biotin intake may require additional information for diagnosis. Troponin, High Sens 6 ng/L Normal 0-9 [facility] Comment on above: Result Comment: High Sensitivity Troponin values cannot be compared with other Troponin methodologies. Patients with high levels of Biotin oral intake (i.e >5mg/day) may have falsely decreased Troponin levels. Samples collected within 8 hours of biotin intake may require additional information for diagnosis. Performed By: #### C MPX, MG, LACTIC, CBCWD, SED, TROPI ####[facility] [address] [place] [address] Lab Director: Lam Kenyon MD Urinalysis w/ Microon 2023 Urine RBC's 0 TO 2 Normal R02 [facility] Comment on above: Performed By: #### U AMIC ####[facility] [address] [place] [address] Lab Director: Lam Kenyon MD Urine WBC's 0 TO 5 Normal R05 [facility] Comment on above: Performed By: #### U AMIC ####[facility] [address] [place] [address] Lab Director: Lam Kenyon MD Bilirubin, SemiQt,Ur Negative Normal NEG [facility] Comment on above: Performed By: #### U AMIC ####[facility] [address] [place] [address] Lab Director: Lam Kenyon MD Blood, Urine Negative Normal NEG [facility] Comment on above: Performed By: #### U AMIC ####[facility] [address] [place] [address] Lab Director: Lam Kenyon MD Clarity (U) Clear Normal CLEAR [facility] Comment on above: Performed By: #### U AMIC ####[facility] [address] [place] [address] Lab Director: Lam Kenyon MD Color (U) Yellow Normal YEL [facility] Comment on above: Performed By: #### U AMIC ####[facility] [address] [place] [address] Lab Director: Lam Kenyon MD Glucose Ql (U) Negative Normal NEG [facility] Comment on above: Performed By: #### U AMIC ####[facility] [address] [place] [address] Lab Director: Lam Kenyon MD Ketones Ql (U) Negative Normal NEG [facility] Comment on above: Performed By: #### U AMIC ####[facility] [address] [place], [place] [id number] Lab Director: Lam Kenyon MD Leukocyte esterase Test strip Ql (U) Negative Normal NEG [facility] Comment on above: Performed By: #### U AMIC ####[facility] [address] [place] [address] Lab Director: Lam Kenyon MD Nitrite,Ur Negative Normal NEG [facility] Comment on above: Performed By: #### U AMIC ####[facility] [address] [place] [address] Lab Director: Lam Kenyon MD PH,Ur 6.5 Normal 5.0-9.0 [facility] Comment on above: Performed By: #### U AMIC ####[facility] [address] [place] [address] Lab Director: Lam Kenyon MD Protein Ql (U) Negative Normal NEG [facility] Comment on above: Performed By: #### U AMIC ####[facility] [address] [place] [address] lab Director: Lam Kenyon MD Spec. [place],Ur <1.005 Low 1.005-1.030 [facility] Comment on above: Performed By: #### U AMIC ####[facility] [address] [place] [address] lab Director: Lam Kenyon MD Urobilinogen,Ur 0.2 EU/dL Normal 0.0-1.0 [facility] Comment on above: Performed By: #### U AMIC ####[facility] [address] [place], [place] [address])[phone] Director: Lam Kenyon MD Urinalysis with Microscopico n 10-18-2023 Bilirubin Ql (U) Negative NEGATIVE [facility] Clarity (U) Clear Clear [facility] Color (U) Yellow Yellow [facility] Glucose Test strip (U) [Mass/Vol] Negative NEGATIVE mg/dL [facility] Hemoglobin Auto test strip Ql (U) Negative NEGATIVE [facility] Interpretation and review of laboratory results Abnormal [facility] Ketones (U) [Mass/Vol] Negative NEGATIVE mg/dL [facility] Leukocyte esterase Test strip Ql (U) Negative NEGATIVE [facility] Nitrite Ql (U) Negative NEGATIVE [facility] pH (U) 6.5 [pH] 5.0 - 9.0 [facility] Protein (U) [Mass/Vol] Negative NEGATIVE mg/dL [facility] RBC LM.HPF (Urine sed) [#/Area] 0 TO 2 0 TO 2 /HPF [facility] Specific gravity (U) [Rel density] Low 1.005 - 1.030 [facility] Urobilinogen Qn (U) 0.2 {Leonie'U}/dL 0. 0 - 1.0 EU/dL [facility] WBC LM.HPF (Urine sed) [#/Area] 0 TO 5 0 TO 5 /HPF [facility] ALLIED HEALTHon 10-17-2023 ALLIED HEALTH HNO ID: [id number] Author: ARI ESTEBAN RT(R) Service: Radiology Author Type: Melter Caster Type: Birdi Filed: 10/17/2023 08:03 Note Text: Radiology Service Progress Note DATE OF SERVICE: October 17, 2023 TIME: 7:30 AM PATIENT IDENTITY VERIFICATION COMPLETED USING TWO (2) STANDARD IDENTIFIERS: Name and Date of confirmed by patient verbally and Name and Date of confirmed by identification band. FALL SCREENING: Has the patient had 2 falls in the last year or 1 fall with injury or currently using an Ambulatory Assistive Device (Walker, Cane, Wheelchair, Crutches, etc.)? Emergency Room Patient: Screened in ED PATIENT GENDER DATA: Female. status: : No status: NO. PATIENT RELEVANT IMPLANT DATA REVIEWED: Not Applicable PATIENT PRESENTS WITH AN IMPLANTABLE OR ATTACHED LINE LEADER: No ALLERGIES: Reviewed and unchanged CONTRAST ALLERGY: NO. EXAM: CT -CONTRAST INDUCED NEPHROPATHY RISK FACTORS: Not applicable CREATININE: Creatinine Date Value Ref Range Status 10/17/2023 0.67 0.52 - 1.04 mg/dL Final eGFR-All Other Races Date Value Ref Range Status 10/17/2023 >60 >60 mL/min/1.73 2 Final eGFR- Date Value Ref Range Status 10/17/2023 >60 >60 mL/min/1.73 2 Final Comment: MDRD calculation used for eGFR results. P.O.C.T. RESULTS: POC done: Yes, See Lab Tab October 17, 2023 TREATMENT: N/A and No Hydration needed. PERIPHERAL IV DATA: Inpatient - refer to LDA documentation RADIOLOGY DEPARTMENT: CT; Exam(s) Completed: Abdomen/Pelvis and PE Study SIGNATURE: RT SYLVESTER(R) PATIENT NAME: Db Doan DATE: October 17, 2023 TIME: 7:30 AM Normal [facility] ALLIED HEALTH HNO ID: [id number] Author: ARI ESTEBAN RT(R) Service: Radiology Author Type: Melter Caster Type: Allied Health Filed: 10/17/2023 07:12 Note Text: CT waiting on labs to scan. Normal [facility] CBCDIFon 10-17-2023 Abs Baso 0.02 k/uL Normal 0-0.2 [facility] Comment on above: Performed By: #### L IPA, CMP, CBCDIF, TROPI ####[facility] [id number] [facility] Hospital[facility], [place] [phone] Abs Bond 0.70 k/uL Normal 0-0.8 [facility] Comment on above: Performed By: #### L IPA, CMP, CBCDIF, TROPI ####[facility] [id number]Holy Family Hospitalrd, [place] [phone] Abs Neut 3.72 k/uL Normal 1.8-7.7 [facility] Comment on above: Performed By: #### L IPA, CMP, CBCDIF, TROPI ####[facility] [address], [place] [phone] Basophils/100 WBC (Bld) 0.3 % Normal 0-1 [facility] Comment on above: Performed By: #### L IPA, CMP, CBCDIF, TROPI ####[facility] [id number] RdHoly Family Hospitalrdon, [place] [phone] Eosinophils (Bld) [#/Vol] 0.03 10*3/uL Normal 0-0.4 [facility] Comment on above: Performed By: #### L IPA, CMP, CBCDIF, TROPI ####[facility] [id number], [place] [phone] Eosinophils/100 WBC (Bld) 0.4 % Normal 0-4 [facility] Comment on above: Performed By: #### L IPA, CMP, CBCDIF, TROPI ####[facility] [id number], [place] [phone] Erythrocyte distribution width (RBC) [Ratio] 12.7 % Normal 11.5-14.5 [facility] Comment on above: Performed By: #### L IPA, CMP, CBCDIF, TROPI ####[facility] [id number], [place] [phone] Hematocrit (Bld) [Volume fraction] 38.3 % Normal 36.0-46.0 [facility] Comment on above: Performed By: #### L IPA, CMP, CBCDIF, TROPI ####[facility] Clinical [id number], [place] [phone] Hemoglobin (Bld) [Mass/Vol] 13.7 g/dL Normal 12.0-16.0 [facility] Comment on above: Performed By: #### L IPA, CMP, CBCDIF, TROPI ####[facility] [id number], [place] [phone] Immature Gran 0.40 % Normal 0-1.9 [facility] Comment on above: Performed By: #### L IPA, CMP, CBCDIF, TROPI ####[facility] [id number], [place] [phone] Lymphocytes (Bld) [#/Vol] 3.01 10*3/uL Normal 1.0-4.0 [facility] Comment on above: Performed By: #### L IPA, CMP, CBCDIF, TROPI ####[facility] Clinical [id number], [place] [phone] Lymphocytes/100 WBC (Bld) 40.1 % Normal 22-44 [facility] Comment on above: Performed By: #### L IPA, CMP, CBCDIF, TROPI ####[facility] [id number], [place] [phone] MCH 32.9 pG Normal 26-34 [facility] Comment on above: Performed By: #### L IPA, CMP, CBCDIF, TROPI ####[facility] [id number], [place] [phone] MCHC (RBC) [Mass/Vol] 35.8 g/dL Normal 31-37 [facility] Comment on above: Performed By: #### L IPA, CMP, CBCDIF, TROPI ####[facility] [id number], [place] [phone] MCV (RBC) [Entitic vol] 91.8 fL Normal 80-100 [facility] Comment on above: Performed By: #### L IPA, CMP, CBCDIF, TROPI ####[facility] [id number], [place] [phone] Monocytes/100 WBC (Bld) 9.3 % Normal 4-12 [facility] Comment on above: Performed By: #### L IPA, CMP, CBCDIF, TROPI ####[facility] [id number], [place] [phone] Neutrophils/100 WBC (Bld) 49.5 % Normal 40-70 [facility] Comment on above: Performed By: #### L IPA, CMP, CBCDIF, TROPI ####[facility] [id number], [place] [phone] NRBCs 0 /100 WBC Normal 0-0.9 [facility] Comment on above: Performed By: #### L IPA, CMP, CBCDIF, TROPI ####[facility] [id number], [place] [phone] Platelets (Bld) [#/Vol] 310 10*3/uL Normal 150-450 [facility] Comment on above: Performed By: #### L IPA, CMP, CBCDIF, TROPI ####[facility] [id number], [place] [phone] RBC (Bld) [#/Vol] 4.17 10*6/uL Normal 4.00-5.20 [facility] Comment on above: Performed By: #### L IPA, CMP, CBCDIF, TROPI ####[facility] [id number] [place], [place] [phone] WBC (Bld) [#/Vol] 7.51 10*3/uL Normal 4.5-11.0 [facility] Comment on above: Performed By: #### L IPA, CMP, CBCDIF, TROPI ####[facility] [id number] [place], [place] [phone] CT ABD/PEL W IVCONon 024 CT ABD/PEL W IVCON * * *Final Report* * * DATE OF EXAM: Oct 17 2023 8:11AM ASC 0530 - CT ABD/PEL W IVCON / PROCEDURE REASON: Abdominal abscess/infection suspected * * * * Physician Interpretation * * * * EXAMINATION: CT ABDOMEN AND PELVIS WITH IV CONTRAST CLINICAL HISTORY: Epigastric pain radiating to the right shoulder TECHNIQUE: CT of the abdomen and pelvis was performed using standard technique, scanning from just above the dome of the diaphragm to the symphysis pubis. MQ: CTAP_3 Contrast: IV: 100 ml of Omnipaque 350 CT Radiation dose: Integrated Dose-length product (DLP) for this visit = 473 mGy*cm. CT Dose Reduction Employed: Automated exposure control(AEC) and iterative recon COMPARISON: 03/22/2022 outside imaging RESULT: Liver: No mass. Biliary: No bile duct dilation. Gallbladder unremarkable Spleen: No mass. No splenomegaly. Pancreas: No mass or duct dilation. Adrenals: No mass. Kidneys: No mass, calculus or hydronephrosis. GI tract: Mild dilatation of the colon with a moderate amount of fluid and stool present Lymph nodes: No abdominal or pelvic lymphadenopathy. Mesentery/Peritoneum: No ascites or mass. Retroperitoneum: No mass. Vasculature: - Abdominal aorta and iliac arteries: No aneurysm. - Celiac and SMA: Patent without stenosis. - Portal venous system (SMV, splenic vein, portal vein and branches): Patent. - Hepatic veins: Patent. Pelvis: No mass, ascites or fluid collection. Bones/Soft Tissues: Unremarkable Lower thorax: A chest CT performed will be reported separately. Localizer images: No additional findings. IMPRESSION: No acute abnormality seen. Mildly distended colon with a moderate amount of stool and fluid present throughout. Jalousies Installer: [facility] Transcribe Date/Time: Oct 17 2023 10:08A Dictated by : DANIA QUIROZ MD This examination was interpreted and the report reviewed and electronically signed by: DANIA QUIROZ MD on Oct 17 2023 10:12AM EST [id number] Normal [facility] CT CHEST W IVCON PEon 2023 CT CHEST W IVCON PE * * *Final Report* * * DATE OF EXAM: Oct 17 2023 8:11AM ASC 0540 - CT CHEST W IVCON PE / PROCEDURE REASON: sob * * * * Physician Interpretation * * * * EXAMINATION: CHEST CT WITH CONTRAST (PULMONARY EMBOLISM PROTOCOL) CLINICAL HISTORY: Shortness of breath. Epigastric pain. Technique: Spiral CT acquisition of the chest from the thoracic inlet to the upper abdomen following IV contrast. Axial 1 and 3 mm thick slices plus coronal and sagittal reformatted images. MQ: CTCP_5 Contrast: 100 mL Omnipaque [address] Radiation dose: Integrated Dose-length product (DLP) for this visit = 473 mGy*cm CT Dose Reduction Employed: Automated exposure control(AEC) and iterative recon Comparison: No relevant prior studies available. RESULT: Limitations: None. Evaluation for thromboembolic disease: - Right heart chambers: No thromboembolic disease. - Main pulmonary arteries: No thromboembolic disease. - Lobar pulmonary arteries: No thromboembolic disease. - Segmental pulmonary arteries: No thromboembolic disease. - Subsegmental pulmonary arteries: No thromboembolic disease. - Additional pulmonary artery findings: The main pulmonary artery is normal in caliber. Lines, tubes, and devices: None. Lung parenchyma and airways: No consolidation. No suspicious pulmonary nodule. The central airways are patent. Minor atelectasis in the anterior inferior right middle lobe and lingula. Pleural space: No pleural effusion. No pleural thickening. Lower neck, lymph nodes, and mediastinum: The imaged thyroid gland is normal. No lymphadenopathy in the supraclavicular, axillary, mediastinal, or hilar regions. Heart, pericardium, and thoracic vessels: The thoracic aorta is normal in caliber. The cardiac chambers are normal in size. No coronary artery atherosclerotic calcifications are noted, although the study is not optimized for coronary assessment. No pericardial effusion or thickening. Bones and soft tissues: No destructive bone lesion. Chest wall is unremarkable. Upper abdomen: No abnormality in the imaged upper abdomen. Localizer images: No additional findings. IMPRESSION: No CT evidence of pulmonary embolism. No acute parenchymal lung abnormality identified. Minor scarring and/or atelectasis in the inferior right middle lobe and lingula Jalousies Installer: [facility] Transcribe Date/Time: Oct 17 2023 10:06A Dictated by : DANIA QUIROZ MD This examination was interpreted and the report reviewed and electronically signed by: DANIA QUIROZ MD on Oct 17 2023 10:08AM EST [id number] Normal [facility] Comp Metabolic Panelon 10-16 Albumin [Mass/Vol] 4.1 g/dL Normal 3.5-5.0 [facility] Comment on above: Performed By: #### L IPA, CMP, CBCDIF, TROPI ####[facility] [id number] [place], [place] [phone] Alkaline Phos 53 U/L Normal 38-125 [facility] Comment on above: Performed By: #### L IPA, CMP, CBCDIF, TROPI ####[facility] [id number] [place], [place] [phone] ALT [Catalytic activity/Vol] 23 U/L Normal 0-34 [facility] Comment on above: Performed By: #### L IPA, CMP, CBCDIF, TROPI ####[facility] [id number] [place], [place] [phone] Anion gap [Moles/Vol] 6 mmol/L Normal 0-15 [facility] Comment on above: Performed By: #### L IPA, CMP, CBCDIF, TROPI ####[facility] [id number] [place], [place] [phone] AST [Catalytic activity/Vol] 24 U/L Normal 17-59 [facility] Comment on above: Performed By: #### L IPA, CMP, CBCDIF, TROPI ####[facility] [id number] [facility] [place] [phone] Bilirubin [Mass/Vol] 0.5 mg/dL Normal 0.2-1.3 [facility] Comment on above: Performed By: #### L IPA, CMP, CBCDIF, TROPI ####[facility] [id number] [facility] [place] [phone] Calcium [Mass/Vol] 9.4 mg/dL Normal 8.4-10.2 [facility] Comment on above: Performed By: #### L IPA, CMP, CBCDIF, TROPI ####[facility] Clinical [id number] [facility] [place] [phone] Chloride [Moles/Vol] 105 mmol/L Normal 98-107 [facility] Comment on above: Performed By: #### L IPA, CMP, CBCDIF, TROPI ####[facility] Clinical [id number] [facility] [place] [phone] CO2 [Moles/Vol] 31 mmol/L High 22-30 [facility] Comment on above: Performed By: #### L IPA, CMP, CBCDIF, TROPI ####[facility] Clinical [id number] [facility] [place] [place] [phone] Creatinine [Mass/Vol] 0.67 mg/dL Normal 0.52-1.04 [facility] Comment on above: Performed By: #### L IPA, CMP, CBCDIF, TROPI ####[facility] Clinical [id number] [facility] [place] [place], [place] [phone] eGFR Amer >60 Normal >60 [facility] Comment on above: Result Comment: MDRD calculation used for eGFR results. Performed By: #### L IPA, CMP, CBCDIF, TROPI ####[facility] [id number] [facility] [place] [phone] eGFR non Am >60 Normal >60 [facility] Comment on above: Performed By: #### L IPA, CMP, CBCDIF, TROPI ####[facility] [id number] [facility] [place] [phone] Glucose [Mass/Vol] 85 mg/dL Normal 74-106 [facility] Comment on above: Performed By: #### L IPA, CMP, CBCDIF, TROPI ####[facility] [id number] [facility] [place] [phone] Potassium [Moles/Vol] 3.5 mmol/L Normal 3.5-5.1 [facility] Comment on above: Performed By: #### L IPA, CMP, CBCDIF, TROPI ####[facility] [id number] [facility] [place] [phone] Protein [Mass/Vol] 6.4 g/dL Normal 6.2-8.2 [facility] Comment on above: Performed By: #### L IPA, CMP, CBCDIF, TROPI ####[facility] [id number] [facility] [place] [phone] Sodium [Moles/Vol] 138 mmol/L Normal 137-145 [facility] Comment on above: Performed By: #### L IPA, CMP, CBCDIF, TROPI ####[facility] [id number] [facility] [place] [place] [phone] Urea nitrogen [Mass/Vol] 9 mg/dL Normal 7-17 [facility] Comment on above: Performed By: #### L IPA, CMP, CBCDIF, TROPI ####[facility] [id number] [facility] [place], [place] [phone] ED NOTEon 10-17-2023 ED NOTE HNO ID: [id number] Author: MACI BAILON RN Service: Nursing Author Type: Registered Nurse Type: ED Notes Filed: 10/17/2023 10:43 Note Text: at bedside to review radiology results and discharge plan. Patient tearful and continuing to request narcotic prescription d/t chronic pain. Pain management discussed with patient by . Patient continuing to push for narcotic prescription stating you cannot discharge me home like this, I have to much pain. offered alternative medications prior to discharge. Patient states I do not need Toradol or norflex or anything else that stuff does not work. again informed patient to follow up withpain management. Patient remains unhappy and tearful in room. Patient stating this is ridiculous that you all are allowing me to live this way. Attempted to review discharge instructions and follow up care information with patient. Patient unwilling to listen and review discharge at this time. IV removed. [facility] ED NOTE HNO ID: [id number] Author: MACI BAILON RN Service: Nursing Author Type: Registered Nurse Type: ED Notes Filed: 10/17/2023 10:40 Note Text: Called to bedside by patient. Patient requesting to be discharged to make her scheduled appointment this afternoon. notified. Awaiting radiology results at this time. Patient updated. [facility] ED NOTE HNO ID: [id number] Author: MACI BAILON RN Service: Nursing Author Type: Registered Nurse Type: ED Notes Filed: 10/17/2023 07:45 Note Text: Assumed care of patient. Bedside report received from Gallo ZARAGOZA. Patient initially presented to the ED with c/o back pain. Patient has chronic back pain. Recent pain injection on 10/10/23. Patient denies any injury. Denies any loss of bowel or bladder control. Patient states pain improved since arrival to the ED. Patient awaiting radiology at this time. Call carrillo within reach, will continue to monitor. [facility] ED NOTE HNO ID: [id number] Author: GALLO ROLDAN, NIK Service: ? Author Type: Registered Nurse Type: ED Notes Filed: 10/17/2023 05:16 Note Text: Patient to ed for lower back pain, received an inject to her back on 10/10/2023. [facility] ED PROV NOTEon 10-17-2023 ED PROV NOTE HNO ID: [id number] Author: AUSTEN SALAZAR JR, MD Service: ? Author Type: Physician Type: ED Provider Notes Filed: 10/17/2023 10:30 Note Text: ED Provider Note Patient Name: Db Doan : 1970 SERVICE DATE: 10/17/23 History Patient presents with: Back Pain HPI PAST MEDICAL HISTORY No date: Anxiety attack No date: Brachial neuritis or radiculitis NOS 03/23/2022: Centrilobular emphysema (HCC) No date: Cervical radiculopathy No date: Cervicalgia No date: Disc displacement, lumbar No date: Displacement of cervical intervertebral disc without myelopathy No date: Generalized convulsive epilepsy without intractable epilepsy (HCC) No date: Intractable pain No date: Lumbar radiculopathy No date: Migraine without aura No date: Other chronic pain No date: PTSD (post-traumatic stress disorder) No date: Reactive depression No date: Sprain or strain of cervical spine History reviewed. No pertinent surgical history. FAMILY HISTORY Problem Relation Age of Onset Coronary Artery Disease Father Social History Tobacco Use Smoking status: Every Day Packs/day: .5 Types: Cigarettes Smokeless tobacco: Not on file Vaping Use Vaping Use: Never used Substance and Sexual Activity Alcohol use: Never Drug use: Never Sexual activity: Not on file ALLERGIES No Known Allergies Review of Systems Physical Exam Vitals [10/17/23 0513] BP Pulse Temp Temp src Resp SpO2 Weight Height 134/86 105 36.9 ?C (98.4 ?F) Oral 20 98 % 65.8 kg (145 lb) -- Physical Exam Diagnostic Testing ED Labs Ordered and Reviewed COMPREHENSIVE METABOLIC PANEL - Abnormal; Notable for the following components: Result Value Ref Range CO2 31 (*) 22 - 30 mmol/L All other components within normal limits LIPASE COMPLETE BLOOD COUNT AND DIFFERENTIAL TROPONIN I LIPASE Procedures ED Course / Clinical Impression Clinical Impressions as of 10/17/23 0734 RUQ pain Acute pain of right shoulder Acute exacerbation of chronic low back pain MDM / Disposition / Plan MEDICAL DECISION MAKING Number and Complexity of Problems Differential Diagnosis: MDM Data External documents reviewed . My EKG interpretation: EKG-normal sinus rhythm normal EKG My CT interpretation: My X-ray interpretation: My Ultrasound interpretation: Tests considered but not ordered Decision rules/scores evaluated: Discussed with: Treatment and Disposition ED Course: Social determinants of health that impact treatment or disposition Shared decision making: Code status: Discussion with regarding code status. Code status determined as Full I assumed care of this patient at 0700 hrs. The patient presents with back pain. Workup including CT of the thorax PE protocol and an abdominal CAT scan were both unremarkable. I discussed the results with the patient. She verbalized understanding. The patient will be discharged with follow-up with her PCP. SIGNATURE: Austen Salazar Jr, MD, - AUSTEN SALAZAR JR, MD 10/17/23 1030 Normal [facility] ED PROV NOTE HNO ID: [id number] Author: LATANYA HELM MD Service: Emergency Medicine Author Type: Physician Type: ED Provider Notes Filed: 10/17/2023 06:36 Note Text: ED Provider Note Patient Name: Db Doan : 1970 SERVICE DATE: 10/17/23 History Patient presents with: Back Pain Abdominal Pain Pain location: Epigastric Pain quality: aching Pain radiation: ? r shoulder. Pain severity: Moderate Onset quality: Gradual Duration: 2 days Timing: Constant Chronicity: New Context: not eating and not sick contacts Relieved by: Nothing Worsened by: Deep breathing (?) Associated symptoms: no anorexia, no belching, no chest pain, no chills, no fatigue, no fever, no flatus, no melena, no nausea, no shortness of breath, no sore throat and no vaginal bleeding Risk factors comment: Chronic back pain from ankylosing spondylitis PAST MEDICAL HISTORY No date: Anxiety attack No date: Brachial neuritis or radiculitis NOS 03/23/2022: Centrilobular emphysema (HCC) No date: Cervical radiculopathy No date: Cervicalgia No date: Disc displacement, lumbar No date: Displacement of cervical intervertebral disc without myelopathy No date: Generalized convulsive epilepsy without intractable epilepsy (HCC) No date: Intractable pain No date: Lumbar radiculopathy No date: Migraine without aura No date: Other chronic pain No date: PTSD (post-traumatic stress disorder) No date: Reactive depression No date: Sprain or strain of cervical spine History reviewed. No pertinent surgical history. FAMILY HISTORY Problem Relation Age of Onset Coronary Artery Disease Father Social History Tobacco Use Smoking status: Every Day Packs/day: .5 Types: Cigarettes Smokeless tobacco: Not on file Vaping Use Vaping Use: Never used Substance and Sexual Activity Alcohol use: Never Drug use: Never Sexual activity: Not on file ALLERGIES No Known Allergies Review of Systems Constitutional: Negative for chills, fatigue and fever. HENT: Negative for sore throat. Eyes: Negative. Respiratory: Negative for shortness of breath. Cardiovascular: Negative for chest pain. Gastrointestinal: Positive for abdominal pain. Negative for anorexia, flatus, melena and nausea. Genitourinary: Negative. Negative for vaginal bleeding. Musculoskeletal: Negative. R shoulder pain Skin: Negative. Neurological: Negative. Psychiatric/Behavioral: Negative. All other systems reviewed and are negative. Physical Exam Vitals [10/17/23 0513] BP Pulse Temp Temp src Resp SpO2 Weight Height 134/86 105 36.9 ?C (98.4 ?F) Oral 20 98 % 65.8 kg (145 lb) -- Physical Exam Vitals and nursing note reviewed. Constitutional: Appearance: She is well-developed. HENT: Head: Normocephalic and atraumatic. Right Ear: External ear normal. Left Ear: External ear normal. Nose: Nose normal. Mouth/Throat: Mouth: Mucous membranes are moist. Eyes: Extraocular Movements: Extraocular movements intact. Conjunctiva/sclera: Conjunctivae normal. Pupils: Pupils are equal, round, and reactive to light. Cardiovascular: Rate and Rhythm: Normal rate and regular rhythm. Pulses: Normal pulses. Heart sounds: Normal heart sounds, S1 normal and S2 normal. No murmur heard. No gallop. Pulmonary: Effort: Pulmonary effort is normal. Breath sounds: Normal breath sounds. Abdominal: General: Bowel sounds are normal. Palpations: Abdomen is soft. Tenderness: There is abdominal tenderness. Comments: Ruq Musculoskeletal: General: Normal range of motion. Cervical back: Normal range of motion and neck supple. Comments: Mild bilateral lumbar spasm negative straight leg raising test. Skin: General: Skin is warm and dry. Capillary Refill: Capillary refill takes less than 2 seconds. Neurological: General: No focal deficit present. Mental Status: She is alert and oriented to person, place, and time. Psychiatric: Mood and Affect: Mood normal. Diagnostic Testing ED Labs Ordered and Reviewed COMPREHENSIVE METABOLIC PANEL LIPASE COMPLETE BLOOD COUNT AND DIFFERENTIAL LIPASE TROPONIN I Procedures ED Course / Clinical Impression Clinical Impressions as of 10/17/23 0636 RUQ pain Acute pain of right shoulder Acute exacerbation of chronic low back pain MDM / Disposition / Plan MEDICAL DECISION MAKING Number and Complexity of Problems Differential Diagnosis: Intra-abdominal process with a free air PE gallbladder disease pancreatitis MDM Data External documents reviewed prior inpatient notes. My EKG interpretation: My CT interpretation: My X-ray interpretation: My Ultrasound interpretation: Tests considered but not ordered Decision rules/scores evaluated: Discussed with: Treatment and Disposition ED Course: This is a 53-year-old woman with history of ankylosing spondylitis had an epidural shot done on 10/09 at the [facility] complains of a 2-day histor (more content not included)... Normal [facility] Lipaseon 10-17-2023 Lipase [Catalytic activity/Vol] 69 U/L Normal 23-300 [facility] Comment on above: Performed By: #### L IPA, CMP, CBCDIF, TROPI ####[facility] [id number] [place], [place] [phone] Troponin Ion 10-17-2023 Troponin I.cardiac [Mass/Vol] ng/mL Normal [facility] Comment on above: Result Comment: Troponin I Interpretation <0.012-0.034 Negative 0.035-0.119 Boogie Zone: Risk Stratification >0.119 Consistent with AMI Biotin (Vitamin B7) is known to potentially cause an interfering NEGATIVE bias with this assay. If this result does not correlate clinically with your patient's presentation, it is suggested that Biotin use be discontinued for 2 days prior to re-testing. Performed By: #### L IPA, CMP, CBCDIF, TROPI ####[facility] [id number] [place], [place] [phone] EDon 10-11-2023 ED [facility] 10/11/23 [place], [place] [address] [id number] DB DOAN None EMERGENCY ROOM REPORT MR [id number] History of Present Illness Chief Complaint Back Pain, Lower Past Medical/Surgical History : EPILEPSY : Depression : Anxiety : ankilosing spondylisis : TAILBONE FRACTURE Family History Diabetes: none Hypertension: none CHF: none Neurological: dementia Social History Smoking history: Current every day smoker Alcohol: N Drugs: N (Bob Dominguez MD) Date of Service 10/11/23 Provider Bob Dominguez MD, Jaemin MD History of Present Illness Patient is a 53-year-old female with a past medical history of ankylosing spondylitis, epilepsy, tailbone fracture, who comes to the ED with a complaint of low back pain. Patient reports she has had a chronic back pain since her tailbone fracture. Patient reportedly got epidural caudal block 2 days ago at [facility]. Patient reports she starting having worsening back pain yesterday. It was associated with left leg radiating pain. Denies motor weakness, saddle anesthesia, renal difficulty, defecation difficulty. Denies fever, chills. No difficulty walking. Patient reports she was instructed that the pain might get worse for the past couple of weeks. Patient is on gabapentin, Cymbalta, naproxen, lamotrigine. (Usha Meza MD) Home Medications . Active Scripts Lamotrigine (Lamictal) 150 MG PO DAILY Duloxetine Hcl (Cymbalta) 60 MG PO BID Gabapentin 600 MG PO TID Acetaminophen (Tylenol Extra Strength) 1,000 MG PO Q6HPRN PRN PAIN Hydroxyzine Hcl (Atarax) 50 MG PO BID Fluticasone-Umeclidiniu m-Vilan (Trelegy Ellipta) 1 AER IN DAILY Oxycodone W/ Acetaminophen (Percocet 5/325) 1 TABLET PO Q4HPRN PRN pain Oxycodone W/ Acetaminophen (Percocet 5/325) 1 TABLET PO Q4HPRN PRN pain (Bob Dominguez MD) Allergies Allergies Coded Allergies: NO KNOWN ALLERGY (09/05/23) (Usha Meza MD) Review of Systems Other Except as noted in the HPI, all remaining systems were reviewed and found to be negative. (Usha Meza MD) Examination Exam Vitals Vital Signs Date Time Temp Pulse Resp B/P B/P Pulse O2 O2 Flow FiO2 Mean Ox Delivery Rate 10/10 1120 85 157/91 10/10 1030 90 18 150/85 98 Room Air 10/10 0947 97.5 108 18 149/109 126 98 10/10 0941 97.5 108 18 149/109 126 98 Room Air General Appearance: Alert and oriented, mild distress. HEENT: No scleral icterus, no thyromegaly, airway normal, mucus membranes pink and moist. Jugular Venous Distension: No JVD, no hepato-jugular reflex. Lungs: Clear to auscultation. No crackles, rhonchi, or wheezes. Heart: Regular rate. No murmur, rub, or gallop. Abdomen: Normal bowel sounds, soft, non-tender. No guarding or rigidity. Extremities: No pitting edema, peripheral pulses good bilaterally. Neurological: Alert and oriented x3. Mental Status: Cooperative. Musculoskeletal: No swelling or redness seen on back area. No tenderness present. Lower extremity motor V/V bilateral throughout. Sensation symmetric. Skin: No skin disruptions, no rashes. (Usha Meza MD) Date of Last Tetanus: UNK (Bob Dominguez MD) Assessment / Plan, ED Orders: All Orders Procedure Date/time Status SEEN BY PHYSICIAN / PROVIDER 10/10 956 Active Current Medications Anti-Emetics Sig/Pola Start time Last Medication Dose Route/Reason Stop Time Status Admin/ Admin Dose Ondansetron Base 4 MG ONCE ONE 10/10 1030 DC 10/10 PO 10/10 1031 1050 4 MG Opiate Agonists Sig/Pola Start time Last Medication Dose Route/Reason Stop Time Status Admin/ Admin Dose Hydromorphone HCl 0.5 MG ONCE ONE 10/10 1029 DC 10/10 IM 10/10 1030 1047 0.5 MG Medical Decision Making: I saw the patient in conjunction with the Emergency Medicine Resident. I was present during the critical decision making process, and agree with the above assessment and treatment plan. (Bob Dominguez MD) Clinical Impression: Back pain Diagnosis: Back pain Medical Decision Making: Patient is a 53-year-old female with a past medical history of ankylosing spondylitis, epilepsy, tailbone fracture, who comes to the ED with a complaint of low back pain. On presentation, patient's vitals were stable without fever at 149/545-203-62-98%??97. 5. On examination, no focal focal neurologic deficits seen. No swelling or redness tenderness present on her lower back. 0.5 Dilaudid IM, ondansetron 4 mg ODT given for pain control. I explained to the patient that pain can get worse for the first couple of days after procedure, but there is no sign of infection or neurologic deficit. I counseled the patient to take prescribed Percocet as needed and follow-up with her neurosurgeon as scheduled. Patient was additionally instructed to come back to the ED if fever dev (more content not included)... Normal [facility] CBC with Diffon 10-10-2023 Abs. Basophil 0.02 k/uL Normal 0.00-0.20 [facility] Comment on above: Performed By: #### T ROSSY SAVAGE, CP #### [place] [address] Prevention Rn: Darci Castle MD Abs.Imm.Granulocyte 0.05 k/uL Normal 0.00-0.58 [facility] Comment on above: Performed By: #### ROSSY ALTAMIRANO, CP #### [place] [address] Prevention Rn: Darci Castle MD Abs.Neutrophil (Seg) 4.24 k/uL Normal 1.80-7.30 [facility] Comment on above: Performed By: #### ROSSY ALTAMIRANO, CP #### [address] [place] [address] Prevention Rn: Darci Castle MD Basophils/100 WBC (Bld) 0 % Normal 0.0-2.0 [facility] Comment on above: Performed By: #### ROSSY ALTAMIRANO, CP #### [place] [address] Prevention Rn: Darci Castle MD Eosinophils (Bld) [#/Vol] 0.10 10*3/uL Normal 0.05-0.50 [facility] Comment on above: Performed By: #### T ROSSY SAVAGE, CP #### [place] [address] Prevention Rn: Darci Castle MD Eosinophils/100 WBC (Bld) 1 % Normal 0-6 [facility] Comment on above: Performed By: #### T ROSSY SAVAGE, CP #### [place] [address] Prevention Rn: Darci Castle MD Erythrocyte distribution width (RBC) [Ratio] 12.5 % Normal 11.5-15.0 [facility] Comment on above: Performed By: #### T ROSSY SAVAGE, CP #### [place] [address] Prevention Rn: Darci Castle MD Hematocrit (Bld) [Volume fraction] 37.4 % Normal 34.0-48.0 [facility] Comment on above: Performed By: #### T ROSSY SAVAGE, CP #### [place] [address] Prevention Rn: Darci Castle MD Hemoglobin (Bld) [Mass/Vol] 12.7 g/dL Normal 11.5-15.5 [facility] Comment on above: Performed By: #### T ROSSY SAVAGE, CP #### [place] [address] Prevention Rn: Darci Castle MD Immature granulocytes/100 WBC (Bld) 1 % Normal 0.0-5.0 [facility] Comment on above: Performed By: #### T ROSSY SAVAGE, CP #### [place] [address] Prevention Rn: Darci Castle MD Lymphocytes (Bld) [#/Vol] 2.15 10*3/uL Normal 1.50-4.00 [facility] Comment on above: Performed By: #### ROSSY ALTAMIRANO, CP #### [address] [address] Prevention Rn: Darci Castle MD Lymphocytes/100 WBC (Bld) 30 % Normal 20.0-42.0 [facility] Comment on above: Performed By: #### T ROSSY SAVAGE, CP #### [place] [address] Prevention Rn: Darci Castle MD MCH (RBC) [Entitic mass] 32.2 pg Normal 26.0-35.0 [facility] Comment on above: Performed By: #### ROSSY ALTAMIRANO, CP #### [place] [address] Prevention Rn: Darci Castle MD MCHC (RBC) [Mass/Vol] 34.0 g/dL Normal 32.0-34.5 [facility] Comment on above: Performed By: #### ROSSY ALTAMIRANO, CP #### [place] [address] Prevention Rn: Darci Castle MD MCV (RBC) [Entitic vol] 94.7 fL Normal 80.0-99.9 [facility] Comment on above: Performed By: #### T ROSSY SAVAGE, CP #### [place] [address] Prevention Rn: Darci Castle MD Monocytes (Bld) [#/Vol] 0.57 10*3/uL Normal 0.10-0.95 [facility] Comment on above: Performed By: #### T ROSSY SAVAGE, CP #### [address] [place] [address] Prevention Rn: Darci Castle MD Monocytes/100 WBC (Bld) 8 % Normal 2.0-12.0 [facility] Comment on above: Performed By: #### T ROSSY SAVAGE, CP #### [address] [place] [address] Prevention Rn: Darci Castle MD Neutrophil (Seg) 59 % Normal 43.0-80.0 [facility] Comment on above: Performed By: #### T ROSSY SAVAGE, CP #### [address] [place] [address] Prevention Rn: Darci Castle MD Platelet mean volume (Bld) [Entitic vol] 7.8 fL Normal 7.0-12.0 [facility] Comment on above: Performed By: #### T ROSSY SAVAGE, CP #### [address] [place] [address] Prevention Rn: Darci Castle MD Platelets (Bld) [#/Vol] 324 10*3/uL Normal 130-450 [facility] Comment on above: Performed By: #### T ROSSY SAVAGE, CP #### [address] [place] [id number] Prevention Rn: Darci Castle MD RBC (Bld) [#/Vol] 3.95 10*6/uL Normal 3.50-5.50 [facility] Comment on above: Performed By: #### T ROSSY SAVAGE, CP #### [address] [place] [address] Prevention Rn: Darci Castle MD WBC (Bld) [#/Vol] 7.1 10*3/uL Normal 4.5-11.5 [facility] Comment on above: Performed By: #### T ROSSY SAVAGE, ADILENE #### [facility] [address] [place] [address] Prevention Rn: Darci Castle MD 10-10-2023 CNPN Telephone (AGSPINE3) DB DOAN ([id number]) 1970 F Date Time Provider Department 10/10/23 JOCELYNE ALBERT AGSPINE3 During your visit today, we recorded the following information about you: Minna Sandoval LPN 10/10/2023 2:30 PM Signed Spoke with patient following up from procedure. Patient states that she has had severe increased pain since the procedure. Patient also stated that her pain is throbbing and radiating up her back. She also stated that she was not able to sleep, and that her torso is so stiff she is not able to turn. She stated that she has an autoimmune disease, that she has trouble with anytime any foreign body is introduced to her system. This nurse instructed the patient that she should go to the Emergency department to get checked out. She was also instructed to take her after visit summary with her so everyone knew what procedure she had done. I also went over the discharge instruction again and told her that it takes 3-5 days for the steroid to start working, and 2-3 weeks to get the full effect. Please advise. BAM Amaral Kermit, MD 10/10/2023 2:51 PM Signed I attempted to call the patient, but I was unable to reach her on her provided contact number. Regarding the message from our nursing staff, I agree with these recommendations. She is only 2 days out from the Caudal Epidural steroid injection, it will be at least 3-7 days to experience relief from the injection, and it is very common to have worsening of pain in the short-term during those first few days. This was discussed at the time of consent for the injection and as part of her after-visit instructions. If she is having red flag symptoms - loss of bowel or bladder function, new and progressively worsening weakness, or intractable pain, then ED would be appropriate and updated imaging might be considered if clinically relevant. Jocelyne Albert III, MD, TRACEE Allergies As of Date: 10/10/2023 (No Known Allergies) Date Reviewed: 10/08/2023 Reviewed by: Minna Sandoval LPN - Fully Assessed Reason for Visit: Procedure Follow Up [1139] Cmt: Dr. Albert 10/08/23 Prescriptions as of 10/10/2023 - gabapentin (NEURONTIN) 600 mg tablet Take 600 mg by mouth three times a day. - HYDROXYZINE HCL ORAL Take by mouth once daily as needed. Unknown dosage - DULoxetine (CYMBALTA) 60 mg capsule Take 1 capsule by mouth once daily for 14 days. - LIDOCAINE PAIN RELIEF 4 % patch - TRELEGY ELLIPTA 200-62.5-25 mcg inhalation powder inhale 1 puff once daily - lidocaine (LIDODERM) 5 % - lamoTRIgine (LAMICTAL) 100 mg tablet Take 1 tablet by mouth twice daily. Problem List As Of Date 10/10/2023 Noted Resolved Neck pain, chronic [M54.2, G89.29] 10/28/2014 Arm pain, diffuse [M79.603] 10/28/2014 Bilateral low back pain with left-sided sciatic*10/28/2014 Leg pain, diffuse [M79.606] 10/28/2014 Generalized anxiety disorder [F41.1] 10/28/2014 Epilepsy (HCC) [G40.909] 10/28/2014 DDD (degenerative disc disease), lumbar [M51.36]12/03/2018 Sprain or strain of cervical spine [NVV0797] 07/16/2014 Sacroiliitis (HCC) [M46.1] 05/02/2022 Primary osteoarthritis of left hip [M16.12] 01/08/2019 Lymphadenopathy [R59.1] 06/30/2020 Disorder of sacrum [M53.3] 01/08/2019 Centrilobular emphysema (HCC) [J43.2] 03/23/2022 Brachial neuritis or radiculitis [M54.12] 08/14/2011 Anxiety attack [F41.0] 09/16/2014 Encounter Status:Closed by MINNA SANDOVAL on 10/10/23 Normal [facility] CT HEAD WO CONTRASTon 2023 CT HEAD WO CONTRAST EXAMINATION: CT OF THE HEAD WITHOUT CONTRAST 10/10/2023 3:41 pm TECHNIQUE: CT of the head was performed without the administration of intravenous contrast. Automated exposure control, iterative reconstruction, and/or weight based adjustment of the mA/kV was utilized to reduce the radiation dose to as low as reasonably achievable. COMPARISON: None. HISTORY: ORDERING SYSTEM PROVIDED HISTORY: headache TECHNOLOGIST PROVIDED HISTORY: Reason for exam:->headache Has a code stroke or stroke alert been called?->No Decision Support Exception - unselect if not a suspected or confirmed emergency medical condition->Emergency Medical Condition (MA) FINDINGS: BRAIN/VENTRICLES: There is no acute intracranial hemorrhage, mass effect or midline shift. No abnormal extra-axial fluid collection. The boogie-white differentiation is maintained without evidence of an acute infarct. There is no evidence of hydrocephalus. ORBITS: The visualized portion of the orbits demonstrate no acute abnormality. SINUSES: The visualized paranasal sinuses and mastoid air cells demonstrate no acute abnormality. SOFT TISSUES/SKULL: No acute abnormality of the visualized skull or soft tissues. The pituitary gland is prominent measures 1.2 by 0.94 cm. The pituitary gland is stable in size when compared with the patient's prior study of 04/24/2018. IMPRESSION: No acute intracranial abnormality. Stable prominence of the pituitary gland which measures 1.2 cm x 0.9 cm. Interpreted by: Wilmer Wray MD Signed by: Wilmer Wray MD 10/10/23 Final result Normal [facility] Comment on above: Order Comment: Reaso n for exam:->headacheHas a code stroke or stroke alert been called?->NoDecision Support Exception - unselect if not a suspected or confirmed emergency medical condition->Emergency Medical Condition (MA) Comp Metabolic Profon 2023 Albumin [Mass/Vol] 4.2 g/dL Normal 3.5-5.2 [facility] Comment on above: Performed By: #### T ROSSY SAVAGE, CP #### [address] [place] [address] Prevention Rn: Darci Castle MD Alkaline Phos 69 U/L Normal 35-104 [facility] Comment on above: Performed By: #### ROSSY ALTAMIRANO, CP #### [address] [address] Prevention Rn: Darci Castle MD ALT [Catalytic activity/Vol] 23 U/L Normal 0-32 [facility] Comment on above: Performed By: #### ROSSY ALTAMIRANO, CP #### [address] [address] Prevention Rn: Darci Castle MD Anion gap [Moles/Vol] 11 mmol/L Normal 7-16 [facility] Comment on above: Performed By: #### ROSSY ALTAMIRANO, CP #### [address] [address] Prevention Rn: Darci Castle MD AST [Catalytic activity/Vol] 20 U/L Normal 0-31 [facility] Comment on above: Performed By: #### ROSSY ALTAMIRANO, CP #### [address] [address] Prevention Rn: Darci Castle MD Bilirubin [Mass/Vol] 0.2 mg/dL Normal 0.0-1.2 [facility] Comment on above: Performed By: #### ROSSY ALTAMIRANO, CP #### [address] [address] Prevention Rn: Darci Castle MD Calcium [Mass/Vol] 9.6 mg/dL Normal 8.6-10.2 [facility] Comment on above: Performed By: #### T ROSSY SAVAGE, CP #### [address] [place] [address] Prevention Rn: Darci Castle MD Chloride [Moles/Vol] 105 mmol/L Normal 98-107 [facility] Comment on above: Performed By: #### T ROSSY SAVAGE, CP #### [address] [place] [address] Prevention Rn: Darci Castle MD CO2 [Moles/Vol] 28 mmol/L Normal 22-29 [facility] Comment on above: Performed By: #### T ROSSY SAVAGE, CP #### [place] [address] Prevention Rn: Darci Castle MD Creatinine [Mass/Vol] 0.7 mg/dL Normal 0.50-1.00 [facility] Comment on above: Performed By: #### T ROSSY SAVAGE, CP #### [address] [place] [address] Prevention Rn: Darci Castle MD GFR/1.73 sq M.predicted among non-blacks MDRD (S/P/Bld) [Vol rate/Area] mL/min/{1.73_m2} Normal >60 [facility] Comment on above: Result Comment: These results are not intended for use in patients <18 years of age. eGFR results are calculated without a race factor using the 2020 CKD-EPI equation. Careful clinical correlation is recommended, particularly when comparing to results calculated using previous equations. The CKD-EPI equation is less accurate in patients with extremes of muscle mass, extra-renal metabolism of creatine, excessive creatine ingestion, or following therapy that affects renal tubular secretion. Performed By: #### T ROSSY SAVAGE, CP #### [address] [place] [address] Prevention Rn: Darci Castle MD Glucose [Mass/Vol] 90 mg/dL Normal 74-99 [facility] Comment on above: Performed By: #### T ROSSY SAVAGE, CP #### [address] [place] [address] Prevention Rn: Darci Castle MD Potassium [Moles/Vol] 4.0 mmol/L Normal 3.5-5.0 [facility] Comment on above: Performed By: #### T ROSSY SAVAGE, CP #### [address] [place] [address] Prevention Rn: Darci Castle MD Protein [Mass/Vol] 6.3 g/dL Low 6.4-8.3 [facility] Comment on above: Performed By: #### ROSSY ALTAMIRANO, CP #### [address] [place] [address] Prevention Rn: Darci Castle MD Sodium [Moles/Vol] 144 mmol/L Normal 132-146 [facility] Comment on above: Performed By: #### ROSSY ALTAMIRANO, CP #### [address] [place] [address] Prevention Rn: Darci Castle MD Urea nitrogen [Mass/Vol] 9 mg/dL Normal 6-20 [facility] Comment on above: Performed By: #### ROSSY ALTAMIRANO, CP #### [address] [address] Prevention Rn: Darci Castle MD ANKLE-LEFT MIN 3 VIEWSon ANKLE-LEFT MIN 3 VIEWS JEMANITA RAYY Female [id number] Ordering physician: Shakeel Saavedra LOC:ER [id number] Attending physician: 1970 53 DO S: 09/30/23 Acc#: [id number] Exam/Proc: ANKLE-LEFT MIN 3 VIEWS Dept: RADIOLOGY EXAMINATION: THREE XRAY VIEWS OF THE LEFT ANKLE09/30/2023 3:15 pm COMPARISON: None. HISTORY: ORDERING SYSTEM PROVIDED HISTORY: TECHNOLOGIST PROVIDED HISTORY: Reason for Exam: PAIN FINDINGS: There is no acute fracture dislocation or ankle joint effusion. Ankle mortise is symmetric and the talar dome is smooth in contour. There is a corticated bony density measuring approximately 0.7 cm below the lateral malleolus representing either accessory ossicle or sequela from prior trauma. There is no soft tissue swelling. There is no ankle joint effusion. IMPRESSION: 1. No acute bony abnormality or ankle joint effusion. Electronically signed By Dalton Richards 09/30/2023 3:17:49 PM EST Workstation ID : [id number] REPORT SIGNATURE ON FILE Electronically Signed Date/Time: 09/30/23 1517 Dictated Date/time: 09/30/23 1516 CC: [facility] ED.PDOCon 09-30-2023 ED.PDOC DB DOAN Female [id number] Attending provider: DEANDRE BURGER [id number] Shakeel Saavedra 1970 53 DOS: 09/30/23 Hx/Exam - History of Present Illness Chief Complaint: BACK PAIN Location: Lower Symptom Duration: Several Symptom Duration: Week(s) Onset of Symptoms: Acute on chronic Intensity: moderate Quality: Pain Episode Frequency: constant Additional Comments: Patient has a history of chronic back pain. She complains of lower back pain that radiates down the left lower extremity. She states she does not have any ligaments in her ankle she stepped in a pothole twisting her ankle complains of ankle and foot pain. Denies any numbness or saddle paresthesias denies bowel or bladder incontinence denies IV drug use. No fever or chills. - Review of Systems All Other Systems: Pertinent Positives in HPI, All Other Systems Negative - Past Medical History ED PMH: Yes Anxiety, Yes Arthritis, Yes Depression, Yes Seizures - Past Surgical History Surgical History: Yes (X 2), Yes Hernia Repair (LT INGUINAL) - Social History Smoking Status: Current every day smoker Hx Alcohol Use: No - Family History Family/Social History Related to Chief Complaint: Denies - Physical Exam Other Exam Findings: Physical Exam General Appearance: awake, alert, no apparent distress Eyes: PERRL, EOMI, conjunctivae clear, no discharge, no scleral icterus Head, Ears, Nose, and Throat: TMs normal, pharynx normal, EAC normal, mucous membranes moist, nares clear, mastoid non-tender Neck: supple, non-tender, no stridor, no masses, no bony tenderness, full ROM Respiratory: lungs clear, no wheezes/rhonchi/rales, no respiratory distress, no accessory muscle use, chest non-tender Cardiovascular: regular rate, rhythm, no murmur Abdomen/GI: non tender, soft, non-distended, normal bowel sounds, no organomegaly, no pulsatile mass, no peritoneal signs Back: no CVA tenderness, no vertebral tenderness, normal ROM, There are equal and adequate pedal pulses and posterior tibialis pulses. Good strength the hallux longus bilaterally. DTRs 2+/4 in the bilateral lower extremities without focal neurological deficits. Straight leg test is negative. Tender in the bilateral paraspinal musculature lumbar spine with radiculopathy down the left lower extremity. Extremity: Tender to the lateral portion of the left foot and lateral malleolus. Achilles tendon intact neurovascular exam intact compartments are soft Neurologic: no motor/sensory deficits, normal gait, normal strength, normal sensation, speech clear/fluent, [employer] II-XII intact Psychiatric: oriented x3, calm, normal affect Skin Exam: warm/dry, normal color - Source of History Source of History: Nursing Notes/Vital Signs/Triage Reviewed and Agree Source of History: Old Medical Records Reviewed Note(s) - Physician Notes Additional Notes, See Orders for Details: 09/30/23 14:44 MEDICAL DECISION MAKING Number and Complexity of Problems Differential Diagnosis: [X]-Fracture, sprain, strain, contusion, discitis, lumbar radiculopathy, sciatica neuritis MDM Data External documents reviewed: [X]-records reviewed and nothing relevant to todays visit My EKG Interpretation: [See Note if applicable] My CT Interpretation: [Interpreted by radiology if applicable] My X-ray Interpretation: [Interpreted by radiology if applicable] My Ultrasound Interpretation: [Interpreted by radiology if applicable] Decision rules/scored evaluated: [] Tests considered but not ordered: [] Discussed with: [] Treatment and Disposition ED Course: [X]-see below Shared decision making: [X]-patient and or parent/Guardian agreeable with treatment plan Social determinants: [X]-none Code status: [X]-full Patient is giving pain medication here. Records were reviewed. She has been seen in the emergency department multiple times for chronic back issues. She has an extensive OARRS history 09/30/23 14:45 09/30/23 14:46 She assures me that she has a ride home. I have reservations of prescribing scheduled medications for her and I will not prescribe any narcotic pain medicines given her past ER visit history and given the fact that her OARRS report is significant. 09/30/23 15:34 FOOT-LEFT MIN 3 VIEWS Dept: RADIOLOGY EXAMINATION: THREE XRAY VIEWS OF THE LEFT FOOT09/30/2023 3:16 pm COMPARISON: None. HISTORY: ORDERING SYSTEM PROVIDED HISTORY: TECHNOLOGIST PROVIDED HISTORY: Reason for Exam: PAIN FINDINGS: No acute fracture dislocation or destructive bony process. No evidence of degenerative or erosive arthritic changes. Soft tissues are normal. IMPRESSION: No acute bony abnormality. Electronically signed By Dalton Richards 09/30/2023 3:18:[address] THREE XRAY VIEWS OF THE LEFT ANKLE09/30/2023 3:15 pm COMPARISON: None. HISTORY: ORDERING SYSTEM PROVIDED HISTORY: TECHNOLOGIST PROVIDED HISTORY: Reason for Exam: PAIN FINDINGS: There is no ac (more content not included)... Normal [facility] FOOT-LEFT MIN 3 VIEWSon 09-02 FOOT-LEFT MIN 3 VIEWS DB DOAN [id number] Ordering physician: Shakeel Saavedra LOC:ER [id number] Attending physician: 1970 53 DO S: 09/30/23 Acc#: [id number] Exam/Proc: FOOT-LEFT MIN 3 VIEWS Dept: RADIOLOGY EXAMINATION: THREE XRAY VIEWS OF THE LEFT FOOT09/30/2023 3:16 pm COMPARISON: None. HISTORY: ORDERING SYSTEM PROVIDED HISTORY: TECHNOLOGIST PROVIDED HISTORY: Reason for Exam: PAIN FINDINGS: No acute fracture dislocation or destructive bony process. No evidence of degenerative or erosive arthritic changes. Soft tissues are normal. IMPRESSION: No acute bony abnormality. Electronically signed By Dalton Richards 09/30/2023 3:18:56 PM EST Workstation ID : [id number] REPORT SIGNATURE ON FILE Electronically Signed Date/Time: 09/30/231517 Dictated Date/time: 09/30/231517 CC: [facility] LUMBAR SPINE W/O CONTRASTon 09-30-2023 LUMBAR SPINE W/O CONTRAST DB DOAN Female [id number] Ordering physician: Shakeel Saavedra LOC:ER [id number] Attending physician: 1970 53 DO S: 09/30/23 Acc#: [id number] Exam/Proc: LUMBAR SPINE W/O CONTRAST Dept: COMPUTED TOMOGRAPHY EXAMINATION: CT OF THE LUMBAR SPINE WITHOUT CONTRAST 09/30/2023 3:19 pm TECHNIQUE: CT of the lumbar spine was performed without the administration of intravenous contrast. Multiplanar reformatted images are provided for review. Adjustment of mA and/or kV according to patient size was utilized. Automated exposure control, iterative reconstruction, and/or weight based adjustment of the mA/kV was utilized to reduce the radiation dose to as low as reasonably achievable. COMPARISON: CT lumbar spine 12/02/2022. HISTORY: ORDERING SYSTEM PROVIDED HISTORY: TECHNOLOGIST PROVIDED HISTORY: Reason for Exam: fall FINDINGS: Visualized lung bases are clear. Lumbar vertebra are intact with normal height and alignment. Disc spaces are well preserved. Spinal canal volume is normal. The posterior elements align normally with no appreciable degenerative facet arthritic changes or spondylolysis. The sacrum is intact. There is no gross lumbar disc herniation. Bilateral lumbar neural foramina are widely patent. IMPRESSION: 1. No acute cervical spine fracture or malalignment. 2. No gross evidence of lumbar disc herniation. 3. No evidence of acute posttraumatic spondylolysis. Electronically signed By Dalton Richards 09/30/2023 3:33:35 PM EST Workstation ID : [id number] REPORT SIGNATURE ON FILE Electronically Signed Date/Time: 09/30/23 1533 Dictated Date/time: 09/30/23 1530 CC: Normal [facility] CBC with Auto Differentialon 09-29-2023 Basophils (Bld) [#/Vol] 0.01 10*3/uL [facility] [employer] [facility] Basophils/100 WBC (Bld) 0 % 0.0 - 2.0 % [facility] Eosinophils (Bld) [#/Vol] 0.02 10*3/uL Low [facility] Eosinophils/100 WBC (Bld) 0 % 0 - 6 % [facility] Erythrocyte distribution width (RBC) [Ratio] 12.1 % 11.5 - 15.0 % [facility] Hematocrit (Bld) [Volume fraction] 39.2 % 34.0 - 48.0 % [facility] Hemoglobin (Bld) [Mass/Vol] 13.9 g/dL 11.5 - 15.5 g/dL [facility] Immature granulocytes (Bld) [#/Vol] 0.03 10*3/uL [facility] Immature granulocytes/100 WBC (Bld) 0 % 0.0 - 5.0 % [facility] Interpretation and review of laboratory results Abnormal [facility] Lymphocytes/100 WBC (Bld) 11 % Low 20.0 - 42.0 % [facility] Lymphocytes/100 WBC (Bld) 0.96 % Low [facility] MCH (RBC) [Entitic mass] 32.6 pg 26.0 - 35.0 pg [facility] MCHC (RBC) [Mass/Vol] 35.5 g/dL High 32.0 - 34.5 g/dL [facility] MCV (RBC) [Entitic vol] 92.0 fL 80.0 - 99.9 fL [facility] Monocytes/100 WBC (Bld) 3 % 2.0 - 12.0 % [facility] Monocytes/100 WBC (Bld) 0.21 % [facility] Neutrophils/100 WBC (Bld) 86 % High 43.0 - 80.0 % [facility] Platelet mean volume (Bld) [Entitic vol] 8.1 fL 7.0 - 12.0 fL [facility] Platelets (Bld) [#/Vol] 371 10*3/uL [facility] RBC (Bld) [#/Vol] 4.26 10*6/uL 3.50 - 5.5 0 m/uL [facility] Segmented neutrophils/100 WBC (Bld) 7.26 % [facility] WBC other (Bld) [#/Vol] 8.5 [facility] CBC with Diffon 09-29-2023 Abs. Basophil 0.01 k/uL Normal 0.00-0.20 [facility] Comment on above: Performed By: #### C LASHONDA, CMPX, LIP, LACTIC #### [address] [address] Prevention Rn: Lam Kenyon MD Abs.Imm.Granulocyte 0.03 k/uL Normal 0.00-0.58 [facility] Comment on above: Performed By: #### C LASHONDA, CMPX, LIP, LACTIC #### [address] [address] Prevention Rn: Lam Kenyon MD Abs.Neutrophil (Seg) 7.26 k/uL Normal 1.80-7.30 [facility] Comment on above: Performed By: #### C BCWD, CMPX, LIP, LACTIC #### [address] [id number] Prevention Rn: Lam Kenyon MD Basophils/100 WBC (Bld) 0 % Normal 0.0-2.0 [facility] Comment on above: Performed By: #### C BCWD, CMPX, LIP, LACTIC #### [address] [address] Prevention Rn: Lam Kenyon MD Eosinophils (Bld) [#/Vol] 0.02 10*3/uL Low 0.05-0.50 [facility] Comment on above: Performed By: #### C BCWD, CMPX, LIP, LACTIC #### [address] [address] ( Prevention Rn: Lam Kenyon MD Eosinophils/100 WBC (Bld) 0 % Normal 0-6 [facility] Comment on above: Performed By: #### C BCWD, CMPX, LIP, LACTIC #### [address] [address] Prevention Rn: Lam Kenyon MD Erythrocyte distribution width (RBC) [Ratio] 12.1 % Normal 11.5-15.0 [facility] Comment on above: Performed By: #### C BCWD, CMPX, LIP, LACTIC #### [address] [address] ( Prevention Rn: Lam Kenyon MD Hematocrit (Bld) [Volume fraction] 39.2 % Normal 34.0-48.0 [facility] Comment on above: Performed By: #### C BCWD, CMPX, LIP, LACTIC #### [address] [address] ( Prevention Rn: Lam Kenyon MD Hemoglobin (Bld) [Mass/Vol] 13.9 g/dL Normal 11.5-15.5 [facility] Comment on above: Performed By: #### C BCWD, CMPX, LIP, LACTIC #### [address] [address] Prevention Rn: Lam Kenyon MD Immature granulocytes/100 WBC (Bld) 0 % Normal 0.0-5.0 [facility] Comment on above: Performed By: #### C BCWD, CMPX, LIP, LACTIC #### [address] [address] ( Prevention Rn: Lam Kenyon MD Lymphocytes (Bld) [#/Vol] 0.96 10*3/uL Low 1.50-4.00 [facility] Comment on above: Performed By: #### C BCWD, CMPX, LIP, LACTIC #### [address] [address] ( Prevention Rn: Lam Kenyon MD Lymphocytes/100 WBC (Bld) 11 % Low 20.0-42.0 [facility] Comment on above: Performed By: #### C BCWD, CMPX, LIP, LACTIC #### [address] [address] ( Prevention Rn: Lam Kenyon MD MCH (RBC) [Entitic mass] 32.6 pg Normal 26.0-35.0 [facility] Comment on above: Performed By: #### C BCWD, CMPX, LIP, LACTIC #### [address] [address] Prevention Rn: Lam Kenyon MD MCHC (RBC) [Mass/Vol] 35.5 g/dL High 32.0-34.5 [facility] Comment on above: Performed By: #### C BCWD, CMPX, LIP, LACTIC #### [address] [address] Prevention Rn: Lam Kenyon MD MCV (RBC) [Entitic vol] 92.0 fL Normal 80.0-99.9 [facility] Comment on above: Performed By: #### C BCWD, CMPX, LIP, LACTIC #### [address] [place] [address] Prevention Rn: Lam Kenyon MD Monocytes (Bld) [#/Vol] 0.21 10*3/uL Normal 0.10-0.95 [facility] Comment on above: Performed By: #### C BCWD, CMPX, LIP, LACTIC #### [address] [address] Prevention Rn: Lam Kenyon MD Monocytes/100 WBC (Bld) 3 % Normal 2.0-12.0 [facility] Comment on above: Performed By: #### C BCWD, CMPX, LIP, LACTIC #### [address] [address] Prevention Rn: Lam Kenyon MD Neutrophil (Seg) 86 % High 43.0-80.0 [facility] Comment on above: Performed By: #### C BCWD, CMPX, LIP, LACTIC #### [address] [address] Prevention Rn: Lam Kenyon MD Platelet mean volume (Bld) [Entitic vol] 8.1 fL Normal 7.0-12.0 [facility] Comment on above: Performed By: #### C BCWD, CMPX, LIP, LACTIC #### [address] [address] Prevention Rn: Lam Kenyon MD Platelets (Bld) [#/Vol] 371 10*3/uL Normal 130-450 [facility] Comment on above: Performed By: #### C BCWD, CMPX, LIP, LACTIC #### [facility] [address] [place] [address] Prevention Rn: Lam Kenyon MD RBC (Bld) [#/Vol] 4.26 10*6/uL Normal 3.50-5.50 [facility] Comment on above: Performed By: #### C BCWD, CMPX, LIP, LACTIC #### [facility] [address] [place], [place] [id number] Prevention Rn: Lam Kenyon MD WBC (Bld) [#/Vol] 8.5 10*3/uL Normal 4.5-11.5 [facility] Comment on above: Performed By: #### C BCWD, CMPX, LIP, LACTIC #### [facility] [address] [place], [place] [phone] Prevention Rn: Lam Kenyon MD Comp Metabolic Pr/rfx MGon 0 09-29-2023 Albumin [Mass/Vol] 4.4 g/dL Normal 3.5-5.2 [facility] Comment on above: Performed By: #### C BCWD, CMPX, LIP, LACTIC #### [address] [id number] Prevention Rn: Lam Kenyon MD Alkaline Phos 76 U/L Normal 35-104 [facility] Comment on above: Performed By: #### C BCWD, CMPX, LIP, LACTIC #### [facility] [address] [place] [phone] Prevention Rn: Lam Kenyon MD ALT [Catalytic activity/Vol] 17 U/L Normal 0-32 [facility] Comment on above: Performed By: #### C BCWD, CMPX, LIP, LACTIC #### [address] [phone] Prevention Rn: Lam Kenyon MD Anion gap [Moles/Vol] 17 mmol/L High 7-16 [facility] Comment on above: Performed By: #### C BCWD, CMPX, LIP, LACTIC #### [facility] [address] [place], [place] [address] Prevention Rn: Lam Kenyon MD AST [Catalytic activity/Vol] 17 U/L Normal 0-31 [facility] Comment on above: Performed By: #### C BCWD, CMPX, LIP, LACTIC #### [address] [phone] Prevention Rn: Lam Kenyon MD Bilirubin [Mass/Vol] 0.2 mg/dL Normal 0.0-1.2 [facility] Comment on above: Performed By: #### C BCWD, CMPX, LIP, LACTIC #### [address] [id number] Prevention Rn: Lam Kenyon MD Calcium [Mass/Vol] 9.7 mg/dL Normal 8.6-10.2 [facility] Comment on above: Performed By: #### C BCWD, CMPX, LIP, LACTIC #### [address] [address] Prevention Rn: Lam Kenyon MD Chloride [Moles/Vol] 97 mmol/L Low 98-107 [facility] Comment on above: Performed By: #### C BCWD, CMPX, LIP, LACTIC #### [address] [address] Prevention Rn: Lam Kenyon MD CO2 [Moles/Vol] 21 mmol/L Low 22-29 [facility] Comment on above: Performed By: #### C BCWD, CMPX, LIP, LACTIC #### [address] [id number] Prevention Rn: Lam Kenyon MD Creatinine [Mass/Vol] 0.7 mg/dL Normal 0.50-1.00 [facility] Comment on above: Performed By: #### C BCWD, CMPX, LIP, LACTIC #### [address] [address] Prevention Rn: Lam Kenyon MD GFR/1.73 sq M.predicted among non-blacks MDRD (S/P/Bld) [Vol rate/Area] mL/min/{1.73_m2} Normal >60 [facility] Comment on above: Result Comment: These results are not intended for use in patients <18 years of age. eGFR results are calculated without a race factor using the 2020 CKD-EPI equation. Careful clinical correlation is recommended, particularly when comparing to results calculated using previous equations. The CKD-EPI equation is less accurate in patients with extremes of muscle mass, extra-renal metabolism of creatine, excessive creatine ingestion, or following therapy that affects renal tubular secretion. Performed By: #### C BCWD, CMPX, LIP, LACTIC #### [address] [place] [address] Prevention Rn: Lam Kenyon MD Glucose [Mass/Vol] 152 mg/dL High 74-99 [facility] Comment on above: Performed By: #### C BCWD, CMPX, LIP, LACTIC #### [address] [address] Prevention Rn: Lam Kenyon MD Potassium [Moles/Vol] 3.7 mmol/L Normal 3.5-5.0 [facility] Comment on above: Performed By: #### C BCWD, CMPX, LIP, LACTIC #### [address] [address] Prevention Rn: Lam Kenyon MD Protein [Mass/Vol] 6.9 g/dL Normal 6.4-8.3 [facility] Comment on above: Performed By: #### C BCWD, CMPX, LIP, LACTIC #### [address] [address] Prevention Rn: Lam Kenyon MD Sodium [Moles/Vol] 135 mmol/L Normal 132-146 [facility] Comment on above: Performed By: #### C BCWD, CMPX, LIP, LACTIC #### [address] [address] Prevention Rn: Lam Kenyon MD Urea nitrogen [Mass/Vol] 10 mg/dL Normal 6-20 [facility] Comment on above: Performed By: #### C BCWD, CMPX, LIP, LACTIC #### [facility] [address] [place] [address] Prevention Rn: Lam Kenyon MD Comprehensive Metabolic Pane l w/ Reflex to MGon 09-29-2023 Albumin [Mass/Vol] 4.4 g/dL 3.5 - 5.2 g/dL [facility] ALP [Catalytic activity/Vol] 76 U/L 35 - 104 U/L [facility] ALT [Catalytic activity/Vol] 17 U/L 0 - 32 U/L [facility] Anion gap [Moles/Vol] 17 mmol/L High 7 - 16 mmol/L [facility] AST [Catalytic activity/Vol] 17 U/L 0 - 31 U/L [facility] Bilirubin [Mass/Vol] 0.2 mg/dL 0.0 - 1 .2 mg/dL [facility] Calcium [Mass/Vol] 9.7 mg/dL 8.6 - 10. 2 mg/dL [facility] Chloride [Moles/Vol] 97 mmol/L Low 98 - 10 7 mmol/L [facility] CO2 [Moles/Vol] 21 mmol/L Low 22 - 29 mmol/L [facility] Creatinine [Mass/Vol] 0.7 mg/dL 0.50 - 1.00 mg/dL [facility] Est, Glom Filt Rate - PINF [facility] Comment on above: These results are not intended for use in patients <18 years of age. eGFR results are calculated without a race factor using the 2020 CKD-EPI equation. Careful clinical correlation is recommended, particularly when comparing to results calculated using previous equations. The CKD-EPI equation is less accurate in patients with extremes of muscle mass, extra-renal metabolism of creatine, excessive creatine ingestion, or following therapy that affects renal tubular secretion. Glucose [Mass/Vol] 152 mg/dL High 74 - 99 mg/dL [facility] Interpretation and review of laboratory results Abnormal [facility] Potassium [Moles/Vol] 3.7 mmol/L 3.5 - 5.0 mmol/L [facility] Protein [Mass/Vol] 6.9 g/dL 6.4 - 8.3 g/dL [facility] Sodium [Moles/Vol] 135 mmol/L 132 - 146 mmol/L [facility] Urea nitrogen [Mass/Vol] 10 mg/dL 6 - 20 mg/dL [facility] Lactic Acidon 09-29-2023 Interpretation and review of laboratory results Abnormal [facility] Lactate (BldV) [Moles/Vol] 3.9 mmol/L Critically high 0.5 - 2.2 mmol/L [facility] Comment on above: Results called to an d read back by: ARI MARTIN RN ON AT 1412 [facility] Lactate [Moles/Vol] 3.9 mmol/L Critically high 0.5-2.2 [facility] Comment on above: Result Comment: Resu lts called to and read back by: ARI MARTIN RN ON AT 1412 Performed By: #### C BCWD, CMPX, LIP, LACTIC #### [facility] [address] [place] [address] Prevention Rn: Lam Kenyon MD Lipaseon 09-29-2023 Lipase [Catalytic activity/Vol] 17 U/L 13 - 60 U/L [facility] Lipase [Catalytic activity/Vol] 17 U/L Normal 13-60 [facility] Comment on above: Performed By: #### C BCWD, CMPX, LIP, LACTIC #### [facility] [address] [place] [address] Prevention Rn: Lam Kenyon MD No Panel Informationon 09-28 [facility] Urinalysis w/ Microon 2023 Bacteria 2+ Abnormal NONE [facility] Comment on above: Performed By: #### U AMIC ####[facility] [place] [address] Lab Director: Lam Kenyon MD Epithelial cells LM Ql (Urine sed) 0 TO 2 Normal [facility] Comment on above: Performed By: #### U AMIC ####[facility] [address] [place], [place] [address])[phone] Director: Lam Kenyon MD Mucus Strands PRESENT Normal [facility] Comment on above: Performed By: #### U AMIC ####[facility] [address] [place] [address]([facility])[phone] Director: Lam Kenyon MD Urine RBC's 0 TO 2 Normal R02 [facility] Comment on above: Performed By: #### U AMIC ####[facility] [address] [place], [place] [address])[phone] Director: Lam Kenyon MD Urine WBC's 0 TO 5 Normal 5 [facility] Comment on above: Performed By: #### U AMIC ####[facility] [address] [place], [place] [address])[phone] Director: Lam Kenyon MD Bilirubin, SemiQt,Ur Negative Normal NEG [facility] Comment on above: Performed By: #### U AMIC ####[facility] [address] [place] [address]([facility])[phone] Director: Lam Kenyon MD Blood, Urine Negative Normal NEG [facility] Comment on above: Performed By: #### U AMIC ####[facility] [address] [place], [place] [address])[phone] Director: Lam Kenyon MD Clarity (U) Clear Normal CLEAR [facility] Comment on above: Performed By: #### U AMIC ####[facility] [address] [place] [address]([facility])[phone] Director: Lam Kenyon MD Color (U) Yellow Normal YEL [facility] Comment on above: Performed By: #### U AMIC ####[facility] [address] [place] [phone] Director: Lam Kenyon MD Glucose Ql (U) Negative Normal NEG [facility] Comment on above: Performed By: #### U AMIC ####[facility] [address] [place] [address]([facility])[phone] Director: Lam Kenyon MD Ketones Ql (U) TRACE Abnormal NEG [facility] Comment on above: Performed By: #### U AMIC ####[facility] [address] [place] [address]([facility])[phone] Director: Lam Kenyon MD Leukocyte esterase Test strip Ql (U) Negative Normal NEG [facility] Comment on above: Performed By: #### U AMIC ####[facility] [address] [place] [address]([facility])[phone] Director: Lam Kenyon MD Nitrite,Ur Negative Normal NEG [facility] Comment on above: Performed By: #### U AMIC ####[facility] [place] [address]([facility])[phone] Director: Lam Kenyon MD PH,Ur 6.0 Normal 5.0-9.0 [facility] Comment on above: Performed By: #### U AMIC ####[facility] [address] [place] [address]([facility])[phone] Director: Lam Kenyon MD Protein Ql (U) Negative Normal NEG [facility] Comment on above: Performed By: #### U AMIC ####[facility] [address] [place], [place] [address])[phone] Director: Lam Kenyon MD Spec. [place],Ur 1.025 Normal 1.005-1.030 [facility] Comment on above: Performed By: #### U AMIC ####[facility] [address] [place] [address]([facility])[phone] Director: Lam Kenyon MD Urobilinogen,Ur 0.2 EU/dL Normal 0.0-1.0 [facility] Comment on above: Performed By: #### U [facility] ####[facility] [place] [address] lab Director: Lam Kenyon MD Urinalysis with Microscopico n 09-29-2023 Bacteria LM Ql (Urine sed) 2+ Abnormal None [facility] Bilirubin Ql (U) Negative NEGATIVE [facility] Clarity (U) Clear Clear [facility] Color (U) Yellow Yellow [facility] Epithelial cells LM.HPF (Urine sed) [#/Area] 0 TO 2 /HPF [facility] Glucose Test strip (U) [Mass/Vol] Negative NEGATIVE mg/dL [facility] Hemoglobin Auto test strip Ql (U) Negative NEGATIVE [facility] Interpretation and review of laboratory results Abnormal [facility] Ketones (U) [Mass/Vol] TRACE Abnormal NEGATIVE mg/dL [facility] [employer] [facility] Leukocyte esterase Test strip Ql (U) Negative NEGATIVE [employer] [facility] Mucus Ql (Urine sed) PRESENT [facility] [employer] [facility] Nitrite Ql (U) Negative NEGATIVE [facility] pH (U) 6.0 [pH] 5.0 - 9.0 [facility] Protein (U) [Mass/Vol] Negative NEGATIVE mg/dL [facility] RBC LM.HPF (Urine sed) [#/Area] 0 TO 2 0 TO 2 /HPF [facility] [employer] [facility] Specific gravity (U) [Rel density] 1.025 1.005 - 1.030 [facility] Urobilinogen Qn (U) 0.2 {Leonie'U}/dL 0. 0 - 1.0 EU/dL [employer] [facility] WBC LM.HPF (Urine sed) [#/Area] 0 TO 5 0 TO 5 /HPF [facility] XR FOOT LEFT (MIN 3 VIEWS)on 09-29-2023 XR FOOT LEFT (MIN 3 VIEWS) EXAMINATION: THREE XRAY VIEWS OF THE LEFT FOOT 09/29/2023 12:00 pm COMPARISON: The previous study performed 09/23/2023. HISTORY: ORDERING SYSTEM PROVIDED HISTORY: concern fracture is not healing TECHNOLOGIST PROVIDED HISTORY: Reason for exam:->concern fracture is not healing FINDINGS: Again identified is the fracture at the base of the 5th metatarsal bone. There has been no significant interval change in alignment and position. No new osseous or surrounding soft tissue abnormality is appreciated. IMPRESSION: Fracture at the base of the 5th metatarsal bone again identified, when compared to the previous study performed 09/23/2023. No significant interval change in alignment and position. Interpreted by: Ron Oviedo MD Signed by: Ron Oviedo MD 09/29/23 Final result Normal [facility] Comment on above: Order Comment: Reaso n for exam:->concern fracture is not healing XR Foot - left 3 Viewson Fracture at the base of the 5th metatarsal bone again identified, when compared to the previous study performed 09/23/2023. No significant interval change in alignment and position. [facility] EXAMINATION: THREE XRAY VIEWS OF THE LEFT FOOT 09/29/2023 12:00 pm COMPARISON: The previous study performed 09/23/2023. HISTORY: ORDERING SYSTEM PROVIDED HISTORY: concern fracture is not healing TECHNOLOGIST PROVIDED HISTORY: Reason for exam:->concern fracture is not healing FINDINGS: Again identified is the fracture at the base of the 5th metatarsal bone. There has been no significant interval change in alignment and position. No new osseous or surrounding soft tissue abnormality is appreciated. [facility] Ron Oviedo MD - 09/29/2023 EXAMINATION: THREE XRAY VIEWS OF THE LEFT FOOT 09/29/2023 12:00 pm COMPARISON: The previous study performed 09/23/2023. HISTORY: ORDERING SYSTEM PROVIDED HISTORY: concern fracture is not healing TECHNOLOGIST PROVIDED HISTORY: Reason for exam:->concern fracture is not healing FINDINGS: Again identified is the fracture at the base of the 5th metatarsal bone. There has been no significant interval change in alignment and position. No new osseous or surrounding soft tissue abnormality is appreciated. IMPRESSION: Fracture at the base of the 5th metatarsal bone again identified, when compared to the previous study performed 09/23/2023. No significant interval change in alignment and position. [facility] Radiology Study observation (narrative) [facility] XR Foot - left 3 ViewsOrdere d By: Ron Oviedo on 09-29-2023 [facility] Work Phone: XR ANKLE LEFT (MIN 3 VIEWS)o n 09-23-2023 XR ANKLE LEFT (MIN 3 VIEWS) EXAM: XR Left Ankle Complete, 3 or More Views EXAM DATE/TIME: 09/23/2023 1:06 pm CLINICAL HISTORY: ORDERING SYSTEM PROVIDED HISTORY: pain post injury TECHNOLOGIST PROVIDED HISTORY: Reason for exam:->pain post injury TECHNIQUE: Frontal, lateral and oblique views of the left ankle. COMPARISON: No relevant prior studies available. FINDINGS: Bones/joints: Calcification at the tip the lateral malleolus appears to be developmental with no definite acute fractures or any bony malalignment noted. Soft tissues: Lateral ankle soft tissue swelling. IMPRESSION: 1. Lateral ankle soft tissue swelling. 2. Calcification at the tip the lateral malleolus appears to be developmental with no definite acute fractures or any bony malalignment noted. Interpreted by: Aylin Dougherty MD Signed by: Aylin Dougherty MD 09/23/23 Final result Normal [facility] Comment on above: Order Comment: Reaso n for exam:->pain post injury XR FOOT LEFT (MIN 3 VIEWS)on 09-23-2023 XR FOOT LEFT (MIN 3 VIEWS) EXAM: XR Left Foot Complete, 3 or More Views EXAM DATE/TIME: 09/23/2023 1:06 pm CLINICAL HISTORY: ORDERING SYSTEM PROVIDED HISTORY: pain post injury TECHNOLOGIST PROVIDED HISTORY: Reason for exam:->pain post injury TECHNIQUE: Frontal, lateral and oblique views of the left foot. COMPARISON: No relevant prior studies available. FINDINGS: Bones/joints: Appearance of the tubercle at the base of the 5th metatarsal suggests an accessory ossicle or at most an old fracture with either incomplete or nonhealing. No acute fractures are noted. No dislocation. Soft tissues: No acute findings. No radiopaque foreign body. IMPRESSION: Appearance of the tubercle at the base of the 5th metatarsal suggests an accessory ossicle or at most an old fracture with either incomplete or nonhealing. No acute fractures are noted. Interpreted by: Aylin Dougherty MD Signed by: Aylin Dougherty MD 09/23/23 Final result Normal [facility] Comment on above: Order Comment: Reaso n for exam:->pain post injury CNOVon 09-19-2023 CNOV Office Visit (AGSPIN E2) DB DOAN ([id number]) 1970 F Date Time Provider Department 09/19/23 12:30 PM BELLO LIM AGSPINE2 During your visit today, we recorded the following information about you: Bello Lim, [place] 09/20/2023 8:57 AM Signed Chiropractor Progress/Procedure Note Db Mahmood rFanki is a 53 year old female who presents for Chiropractic follow up for Low Back Pain acu 04/18 mp mkf Have you noticed any improvement since your last visit? Patient states she had less pain for about a day. Has high pain today due to helping her daughter move. Have you done any home exercises that Dr. Lim gave you? None What is your response to the home exercises? N/A What aggravates your pain? Non specific ADLs, chores, lifting What makes your pain better? Chiro care Current pain level? 9/10 How low has your pain level been on the pain scale since your last visit? 5/10 How high has your pain level been on the pain scale since your last visit? 10/10. Since your last visit with Dr. Lim have you had any Images or injections? no REVIEW OF SYSTEMS: The patient reports arm or leg weakness and numbness or tingling. PHYSICAL EXAM: The patient is alert and oriented in no acute distress. There is moderate hypertonicity through the cervical paraspinal muscles, thoracic paraspinal muscles, and lumbar paraspinal muscles. Range of motion: improved Pain on extension. Motor Strength: reduced Neurovascular intact. Orthopedic testing: N/A. Spinal segmental dysfunction: Cervical, Lumbar, Thoracic, and SI The patient is alert and oriented in no acute distress. I have confirmed and edited as necessary the HPI and ROS obtained by others. IMPRESSION AND PLAN: (M54.50, G89.29) Chronic bilateral low back pain without sciatica (primary encounter diagnosis) (M99.01) Segmental and somatic dysfunction of cervical region (M99.05) Segmental and somatic dysfunction of pelvic region (M99.04) Segmental and somatic dysfunction of sacral region No orders found for this visit on 09/19/23. Treatments: Acupuncture: 38 minutes, lumbar spine, needles re-inserted every 15 minutes. Manipulation/ART : C4-5 / T5-7 / L3: cervical spine, sacral, and pelvic. Return: 1 time, 4 weeks Patient responded well, instructed to call with problems or concerns, responded well to all treatments. I personally performed treatments/procedures listed. Time in: 12:37 Time out: 140 Dr. Bello Lim [place] Allergies As of Date: 09/19/2023 (No Known Allergies) Date Reviewed: 09/19/2023 Reviewed by: Elif Marino LMT - Fully Assessed Reason for Visit: Low Back Pain [126] Primary Visit Diagnosis:Chronic bilateral low back pain without sciatica [M54.50, G89.29] Other Visit Diagnoses:Segmental and somatic dysfunction of cervical region [M99.01] Segmental and somatic dysfunction of pelvic region [M99.05] Segmental and somatic dysfunction of sacral region [M99.04] Order(s):ACUPUNCT W/O STIMUL 15 MIN [[id number]] Order #: [id number] ACUPUNCT W/O STIMUL ADDL 15M [[id number]] Order #: [id number]: 2 CHIROPRAC MANIP,SPINAL,3-4 REGIONS [[id number]] Order #: [id number] Prescriptions as of 09/20/2023 - gabapentin (NEURONTIN) 600 mg tablet Take 600 mg by mouth three times a day. - HYDROXYZINE HCL ORAL Take by mouth once daily as needed. Unknown dosage - DULoxetine (CYMBALTA) 60 mg capsule Take 1 capsule by mouth once daily for 14 days. - LIDOCAINE PAIN RELIEF 4 % patch - TRELEGY ELLIPTA 200-62.5-25 mcg inhalation powder inhale 1 puff once daily - lidocaine (LIDODERM) 5 % - lamoTRIgine (LAMICTAL) 100 mg tablet Take 1 tablet by mouth twice daily. Problem List As Of Date 09/19/2023 Noted Resolved Neck pain, chronic [M54.2, G89.29] 10/28/2014 Arm pain, diffuse [M79.603] 10/28/2014 Bilateral low back pain with left-sided sciatic*10/28/2014 Leg pain, diffuse [M79.606] 10/28/2014 Generalized anxiety disorder [F41.1] 10/28/2014 Epilepsy (HCC) [G40.909] 10/28/2014 DDD (degenerative disc disease), lumbar [M51.36]12/03/2018 Sprain or strain of cervical spine [KEQ9731] 07/16/2014 Sacroiliitis (HCC) [M46.1] 05/02/2022 Primary osteoarthritis of left hip [M16.12] 01/08/2019 Lymphadenopathy [R59.1] 06/30/2020 Disorder of sacrum [M53.3] 01/08/2019 Centrilobular emphysema (HCC) [J43.2] 03/23/2022 Brachial neuritis or radiculitis [M54.12] 08/14/2011 Anxiety attack [F41.0] 09/16/2014 Encounter Status:Closed by BELLO LIM on 09/20/23 [facility] XR SACRUM COCCYX 2+ VIEWSon 09-15-2023 XR SACRUM COCCYX 2+ VIEWS Interpreted By: Kailee Leach, STUDY: XR SACRUM COCCYX 2+ VIEWS; ; 09/15/2023 10:20 am INDICATION: Signs/Symptoms:fall. COMPARISON: 04/14/2023 ACCESSION NUMBER(S): [id number] ORDERING CLINICIAN: JATIN DAVIS FINDINGS: Three views sacrum show sacroiliac joints and sacrum appear intact. Pubic symphysis appears normal. Tubal ligation clips noted. No fracture. Alignment satisfactory. IMPRESSION: No acute bony abnormalities. No change since the prior exam MACRO: None Signed by: Kailee Leach 09/15/2023 10:47 AM Dictation workstation: [id number] [facility] XR Sacrum and Coccyx 2 Views on 09-15-2023 No acute bony abnormalities. No change since the prior exam MACRO: None Signed by: Kailee Leach 09/15/2023 10:47 AM Dictation workstation: [id number] MMODAL Interpreted By: Kailee Gallardo ch, STUDY: XR SACRUM COCCYX 2+ VIEWS; ; 09/15/2023 10:20 am INDICATION: Signs/Symptoms:fall. COMPARISON: 04/14/2023 ACCESSION NUMBER(S): [id number] ORDERING CLINICIAN: JATIN DAVIS FINDINGS: Three views sacrum show sacroiliac joints and sacrum appear intact. Pubic symphysis appears normal. Tubal ligation clips noted. No fracture. Alignment satisfactory. MMODAL Kailee Leach MD - 09/15/2023 Interpreted By: Kailee Leach, STUDY: XR SACRUM COCCYX 2+ VIEWS; ; 09/15/2023 10:20 am INDICATION: Signs/Symptoms:fall. COMPARISON: 04/14/2023 ACCESSION NUMBER(S): [id number] ORDERING CLINICIAN: JATIN DAVIS FINDINGS: Three views sacrum show sacroiliac joints and sacrum appear intact. Pubic symphysis appears normal. Tubal ligation clips noted. No fracture. Alignment satisfactory. IMPRESSION: No acute bony abnormalities. No change since the prior exam MACRO: None Signed by: Kailee Leach 09/15/2023 10:47 AM Dictation workstation: [id number] [facility] Work Phone: Radiology Study observation (narrative) [facility] Work Phone: XR Sacrum and Coccyx 2 Views Ordered By: Kailee Leach on 09-15-2023 [facility] Work Phone: LUMBAR SPINE AP/LAT (2 OR 3 V)on 09-13-2023 [id number] Name: ANITA DOANSandhya Mahmood Phys: LINGAFELT DO,EDDIE : 1970 Age: 53 Sex: F Acct: [id number] Loc: ED Exam Date: 09/13/2023 Status: REG ER Radiology No: [id number] Unit No: [id number] EXAM# TYPE/EXAM RESULT [id number] EDRAD/LUMBAR SPINE AP/LAT (2 OR SEE REPORT INDICATION: Low back pain. Recent fall. TECHNIQUE: Two view(s) of the lumbar spine. COMPARISON: XR sacrum/coccyx 09/13/2023. XR lumbar spine 08/31/2023. FINDINGS: The alignment is anatomic. Vertebral body height is normal without compression deformity. Mild narrowing of the L5-S1 disc space. Moderate facet arthrosis in the mid to lower lumbar spine. IMPRESSION: Mild narrowing at L5-S1 disc space. Moderate facet arthrosis in the mid to lower lumbar spine. No acute osseous abnormality. Signed by Lino Junior MD REPORT SIGNED IN OTHER VENDOR SYSTEM 09/13/2023 Reported By: LINO JUNIOR MD CC: MARIA ELENA MONTALVO Technologist: HIMA CORREIA Transcribed Date/Time: 09/13/2023 (708) Jalousies Installer: BRUCE Printed Date/Time: 09/13/2023 (708) PAGE 1 Signed Report Normal [facility] SACRUM/COCCYX (MIN 2 V)on [facility] Name: DB DOAN Phys: LINGAFELT DO,EDDIE : 1970 Age: 53 Sex: F Acct: [id number] Loc: ED Exam Date: 09/13/2023 Status: REG ER Radiology No: [id number] Unit No: [id number] EXAM# TYPE/EXAM RESULT [id number] EDRAD/SACRUM/COCCYX (MIN 2 V) SEE REPORT INDICATION: Low back pain. Recent fall. TECHNIQUE: Three views of the sacrum and coccyx were obtained. COMPARISON: XR lumbar spine 09/13/2023. FINDINGS: There is no acute fracture. Visualized joint spaces are unremarkable. Large amount of stool in the distal colon and rectum. IMPRESSION: 1. No acute osseous abnormality. Signed by Lino Junior MD REPORT SIGNED IN OTHER VENDOR SYSTEM 09/13/2023 Reported By: LINO JUNIOR MD CC: MARIA ELENA MONTALVO Technologist: HIMA CORREIA Transcribed Date/Time: 09/13/2023 (720) Jalousies Installer: BRUCE Printed Date/Time: 09/13/2023 (720) PAGE 1 Signed Report Normal [facility] CNPNon 09-10-2023 CNPN Telephone (AGSPINE3) DB DOAN ([id number]) 1970 F Date Time Provider Department 09/10/23 BELLO LIM AGSPINE3 During your visit today, we recorded the following information about you: Db Chavez 09/10/2023 10:41 AM Signed ----- Message from Jase Hemphill sent at 09/10/2023 10:08 AM EDT ----- Regarding: Spine AND Pain / Bello Lim ID / Cancellation of Visits on 09/09 and 09/11 Patient: Db Doan Date of : 1970 Primary Care Provider: Maria Elena Montalvo MD Patient has been identified by name and Date of (Y/N): y Patient: Db Doan Date of : 1970 Provider for this encounter: Maria Elena Montalvo MD Reason for the call/escalation: Pt called in to cancel two visits with Dr Lim: one for today 09/09 and another on 09/11. Pt stated they would not need to reschedule visits as they already have other visits scheduled with Dr Lim. Was Patient Referred to [facility]/Seek Emergency Treatment (Y/N): n Did Patient Agree (Y/N): n Was An Attempt Made To Transfer The Patient To The Office (Y/N): n Were You Able To Reach Someone At The Office (Y/N): n If Yes - Patient Was Transferred To (Caregivers Name): n If No - Which [facility] [employer] Salesperson Did You Speak With Regarding This Patient: n Was an appointment scheduled (Y/N): n Reason patient was requesting visit (RFV/signs and symptoms/diagnosis) : acu and manip Person calling if other than patient: self Return call to if other than patient: n Best contact number: [phone] Thank you, Jase Hemphill September 10, 2023 10:08 AM Allergies As of Date: 09/10/2023 (No Known Allergies) Date Reviewed: 08/27/2023 Reviewed by: Bridgette Fraser LMT - Fully Assessed Reason for Visit: Returning Patient's Call [408] Prescriptions as of 10/03/2023 - gabapentin (NEURONTIN) 600 mg tablet Take 600 mg by mouth three times a day. - HYDROXYZINE HCL ORAL Take by mouth once daily as needed. Unknown dosage - DULoxetine (CYMBALTA) 60 mg capsule Take 1 capsule by mouth once daily for 14 days. - LIDOCAINE PAIN RELIEF 4 % patch - TRELEGY ELLIPTA 200-62.5-25 mcg inhalation powder inhale 1 puff once daily - lidocaine (LIDODERM) 5 % - lamoTRIgine (LAMICTAL) 100 mg tablet Take 1 tablet by mouth twice daily. Problem List As Of Date 09/10/2023 Noted Resolved Neck pain, chronic [M54.2, G89.29] 10/28/2014 Arm pain, diffuse [M79.603] 10/28/2014 Bilateral low back pain with left-sided sciatic*10/28/2014 Leg pain, diffuse [M79.606] 10/28/2014 Generalized anxiety disorder [F41.1] 10/28/2014 Epilepsy (HCC) [G40.909] 10/28/2014 DDD (degenerative disc disease), lumbar [M51.36]12/03/2018 Sprain or strain of cervical spine [HZN3830] 07/16/2014 Sacroiliitis (HCC) [M46.1] 05/02/2022 Primary osteoarthritis of left hip [M16.12] 01/08/2019 Lymphadenopathy [R59.1] 06/30/2020 Disorder of sacrum [M53.3] 01/08/2019 Centrilobular emphysema (HCC) [J43.2] 03/23/2022 Brachial neuritis or radiculitis [M54.12] 08/14/2011 Anxiety attack [F41.0] 09/16/2014 Encounter Status:Closed by RIDDLE, DB on 09/10/23 Normal [facility] ED Provider Noteson 09-06-19 Staff Accountant Authentication Interface Message Text CC: Low back pain HPI: Patient reports that she may have injured her tailbone a year ago Has lower back pain Wanted narcotic pain medications Followed by pain management in [facility] This visit multiple ERs recently for similar complaints Denies fever chills Denies weakness, dizziness, headache, facial pain, stuffy nose, earache, sore throat, cough, difficulty breathing, chest pain, abdominal pain, nausea, vomiting, diarrhea, pain with urination, frequency or urgency, arm pain, leg pain, neck pain, or any injury There is no problem list on file for this patient. The remainder of the review of systems is negative for other complaint. BP 139/86 Pulse 99 Temp 98.2 ???F (36.8 ???C) (Temporal) Resp 16 Wt 140 lb (63.5 kg) SpO2 100% Physical Exam Vitals and nursing note reviewed. Constitutional: General: She is not in acute distress. Appearance: She is not toxic-appearing. HENT: Head: Normocephalic. Mouth/Throat: Mouth: Mucous membranes are moist. Eyes: Extraocular Movements: Extraocular movements intact. Pupils: Pupils are equal, round, and reactive to light. Cardiovascular: Rate and Rhythm: Normal rate and regular rhythm. Heart sounds: Normal heart sounds. Pulmonary: Effort: Pulmonary effort is normal. Breath sounds: Normal breath sounds. Abdominal: General: Abdomen is flat. Bowel sounds are normal. There is no distension or abdominal bruit. There are no signs of injury. Palpations: Abdomen is soft. Tenderness: There is no abdominal tenderness. Musculoskeletal: Comments: Full range of motion of all 4 extremity Mild lower back tenderness Skin: General: Skin is warm and dry. Capillary Refill: Capillary refill takes less than 2 seconds. Neurological: General: No focal deficit present. Mental Status: She is alert and oriented to person, place, and time. Cranial Nerves: No cranial nerve deficit. Motor: No weakness. Gait: Gait normal. Comments: No neuro deficits Cranial nerves intact No focal weakness of extremities Psychiatric: Mood and Affect: Mood normal. Behavior: Behavior normal. Medical Decision Making AND Course: Chronic lower back pain Treated with Toradol Tylenol and Lidoderm patches Nursing triage and assessment notes reviewed and incorporated. Nature of presenting problem: Complication of an existing problem The patient has received a medical screening examination and within reasonable clinical confidence an emergency medical condition was identified and has been stabilized Jonny Xiao MD Normal [facility] EDon 09-05-2023 ED [facility] 09/05/23 [place], [place] [address] [id number] DB DOAN None EMERGENCY ROOM REPORT MR [id number] History of Present Illness Date of Service 09/05/23 Provider Edwar Raygoza MD Chief Complaint Back Pain, Lower History of Present Illness Patient is a 53-year-old female presenting with lower back pain. Patient states that she has a 1 year history of back fracture, and had chronic back pain prior to that. Patient denies any urinary incontinence, bowel incontinence or saddle anesthesia. Patient states that this is chronic back pain, however it is worse at this time. She is to follow-up with neurosurgery at [facility]. She did see them on September 03 where they did some hip and back manipulation. She states that they also did some acupuncture. Since then the pain has been worsening. Patient states that the actual pain management aspect of her treatment will not be until October. She has presented to the emergency department requesting pain management. She states that she does not want Dilaudid, as she has become immune Dilaudid. She states that 10 mg of oxycodone is usually quite helpful to her. Patient has not had any recent trauma to the area after the manipulation that was done by neurosurgery at [facility]. Patient does not have any red flags for cauda equina at this time. Patient has been otherwise well. Past Medical/Surgical History : EPILEPSY : Depression : Anxiety : ankilosing spondylisis : TAILBONE FRACTURE Family History Diabetes: none Hypertension: none CHF: none Neurological: dementia Social History Smoking history: Current every day smoker Alcohol: DENIES Drugs: DENIES (Ruby Meeks MD) Date of Service 09/05/23 Provider Edwar Raygoza MD (Edwar Raygoza MD) Home Medications . Active Scripts Lamotrigine (Lamictal) 150 MG PO DAILY Duloxetine Hcl (Cymbalta) 60 MG PO BID Gabapentin 600 MG PO TID Acetaminophen (Tylenol Extra Strength) 1,000 MG PO Q6HPRN PRN PAIN Hydroxyzine Hcl (Atarax) 50 MG PO BID Fluticasone-Umeclidiniu m-Vilan (Trelegy Ellipta) 1 AER IN DAILY (Ruby Meeks MD) Allergies Allergies Coded Allergies: NO KNOWN ALLERGY (09/05/23) (Ruby Meeks MD) Review of Systems Other Except as noted in the HPI, all remaining systems are reviewed and found to be negative. (Ruby Meeks MD) Examination Exam Vitals Vital Signs Date Time Temp Pulse Resp B/P B/P Pulse O2 O2 Flow FiO2 Mean Ox Delivery Rate 09/04 0712 89 19 155/60 100 RA 09/04 0653 94 17 150/80 100 Room Air 09/04 0540 97.4 104 18 142/86 109 99 09/04 0535 97.4 104 18 142/86 109 99 Date of Last Tetanus: UNK Other Physical Findings General Appearance: Alert and oriented, mild distress. HEENT: No scleral icterus, no thyromegaly, airway normal, mucus membranes pink and moist. Lungs: Speaking in full sentences. Nonlabored respirations. Abdomen: Normal bowel sounds, soft, non-tender. No guarding or rigidity. Extremities: No pitting edema, peripheral pulses good bilaterally. Neurological: Alert and oriented x3. Mental Status: Cooperative. Musculoskeletal: Full ROM. Pain upon palpation of lumbar spine. Skin: No skin disruptions, no rashes. (Rbuy Meeks MD) Exam Musculoskeletal Normal Pulses, Pt is able to get on and off the ED gurney without difficulty. Also able to lay flat and sit up without difficulty or pain. Neurological Normal Gait, Normal Speech, Strength at 5/5 X4 Ext, Normal Tone, Sensation Intact, Cranial Nerves 3-12 NL, Reflexes 2+ (Edwar Raygoza MD) Assessment / Plan, ED Medical Decision Making: Patient is a 53-year-old female presenting with chronic lower back pain that is worsening in intensity. Patient does not have any red flags for cauda equina or any recent trauma to the area. She does not require any repeat imaging. There are concerns about patient's pain medication use, with review of OARRS. She was given 10 mg oxycodone one time, and advised to follow-up with the pain specialist, her team at [facility] or her primary care doctor. This patient was seen and managed with supervision by Dr. Raygoza. (Ruby Meeks MD) Clinical Impression: ACUTE ON CHRONIC BACK PAIN-ATRAUMATIC. Diagnosis: Acute on chronic back pain-atraumatic Orders: All Orders Procedure Date/time Status SEEN BY PHYSICIAN / PROVIDER 09/04 0550 Active Current Medications Opiate Agonists Sig/Pola Start time Last Medication Dose Route/Reason Stop Time Status Admin/ Admin Dose Oxycodone HCl 10 MG ONCE ONE 09/04 700 DC 09/04 PO 09/04 701 0711 10 MG Medical Decision Making: I reviewed with the emergency medicine or internal medicine resident rotating in the emergency department about the care of this patient. We have dis (more content not included)... Normal [facility] XR LUMBAR SPINE (2-3 VIEWS)o n 09-02-2023 XR LUMBAR SPINE (2-3 VIEWS) EXAMINATION: XRAY VIEWS OF THE LUMBAR SPINE 09/02/2023 11:54 am COMPARISON: None. HISTORY: ORDERING SYSTEM PROVIDED HISTORY: back pain after manipulation TECHNOLOGIST PROVIDED HISTORY: Reason for exam:->back pain after manipulation FINDINGS: 5 non rib-bearing lumbar type vertebral bodies are identified. The vertebrae appear normal in height and alignment. Small endplate osteophytes noted at L2-3, L3-4 and L4-5. There is no evidence of paravertebral soft tissue edema or fracture. No pars defect is identified. The SI joints are grossly unremarkable. IMPRESSION: Mild multilevel degenerative disc disease in the mid lumbar spine. Otherwise unremarkable lumbar spine radiographs. If there are neurologic symptoms, MRI could be performed for further evaluation. Interpreted by: Mike Baron MD Signed by: Mike Baron MD 09/02/23 Final result Normal [facility] Comment on above: Order Comment: Reaso n for exam:->back pain after manipulation XR Lumbar spine 2 or 3 Views on 09-02-2023 Mild multilevel degenerative disc disease in the mid lumbar spine. Otherwise unremarkable lumbar spine radiographs. If there are neurologic symptoms, MRI could be performed for further evaluation. [facility] EXAMINATION: XRAY VIEWS OF THE LUMBAR SPINE 09/02/2023 11:54 am COMPARISON: None. HISTORY: ORDERING SYSTEM PROVIDED HISTORY: back pain after manipulation TECHNOLOGIST PROVIDED HISTORY: Reason for exam:->back pain after manipulation FINDINGS: 5 non rib-bearing lumbar type vertebral bodies are identified. The vertebrae appear normal in height and alignment. Small endplate osteophytes noted at L2-3, L3-4 and L4-5. There is no evidence of paravertebral soft tissue edema or fracture. No pars defect is identified. The SI joints are grossly unremarkable. [facility] Mike Baron MD - 09/02/2023 EXAMINATION: XRAY VIEWS OF THE LUMBAR SPINE 09/02/2023 11:54 am COMPARISON: None. HISTORY: ORDERING SYSTEM PROVIDED HISTORY: back pain after manipulation TECHNOLOGIST PROVIDED HISTORY: Reason for exam:->back pain after manipulation FINDINGS: 5 non rib-bearing lumbar type vertebral bodies are identified. The vertebrae appear normal in height and alignment. Small endplate osteophytes noted at L2-3, L3-4 and L4-5. There is no evidence of paravertebral soft tissue edema or fracture. No pars defect is identified. The SI joints are grossly unremarkable. IMPRESSION: Mild multilevel degenerative disc disease in the mid lumbar spine. Otherwise unremarkable lumbar spine radiographs. If there are neurologic symptoms, MRI could be performed for further evaluation. [facility] Radiology Study observation (narrative) [facility] XR Lumbar spine 2 or 3 Views Ordered By: Mike Baron on 09-02-2023 [facility] Work Phone: LUMBAR SPINE (1 V)on 024 [id number] Name: DB DOAN Phys: SANTANA ZAMBRANO DO : 1970 Age: 53 Sex: F Acct: [id number] Loc: ED Exam Date: 08/31/2023 Status: DEP ER Radiology No: [id number] Unit No: [id number] EXAM# TYPE/EXAM RESULT [id number] EDRAD/LUMBAR SPINE (1 V) SEE REPORT INDICATION: LOwer back pain, chronic. Multiple recent imaging studies for similar pain. TECHNIQUE: One view(s) of the lumbar spine. COMPARISON: XR lumbar spine 05/23/2023. FINDINGS: The alignment is anatomic. Vertebral body height is normal without compression deformity. Visualized disc spaces are unremarkable. There is a large amount of gas and stool throughout the colon. IMPRESSION: No evidence of acute fracture of the lumbosacral spine. Signed by Zoltan Heredia MD REPORT SIGNED IN OTHER VENDOR SYSTEM 08/31/2023 Reported By: ZOLTAN HEREDIA MD CC: MARIA ELENA MONTALVO Technologist: ANTON PRESLEY Transcribed Date/Time: 08/31/2023 (9955) Jalousies Installer: BRUCE Printed Date/Time: 08/31/2023 (8006) PAGE 1 Signed Report Normal [facility] CNCOon 08-27-2023 CNCO Letter Text Normal [facility] CNOVon 08-27-2023 CNOV Office Visit (AGSPIN E2) DB DOAN ([id number]) 1970 F Date Time Provider Department 08/27/23 10:00 AM BELLO LIM AGSPINE2 During your visit today, we recorded the following information about you: Bello Lim, DC 08/28/2023 2:10 PM Signed New Patient Chiropractor Progress Note Dbsandhya Doan is a 53 year old female who presents today with complaints of neck pain and low back pain. She describes the pain as being burning, shooting, and stabbing, cramping and throbbing and rates the pain as a 10/10. The pain began 10 years ago as a result of falling. The pain is exacerbated by ADLs. Previous treatments have included none. She complains of radiation to the the left leg. She reports numbness, tingling, moreso in L leg patient believes from sciatica; electric shocks are up and down R side of back, or electric shocks. She reports catching. She reports difficulty with walking and muscle weakness. 04/02 acu 03/18 mp Az Pain Intensity 4 - The pain is very severe at the moment Personal Care (Washing/Dressing) 5 - I do not get dressed. I wash with difficult and stay in bed Lifting 2 - Pain prevents me from lifting heavy weights off the floor, but I can manage if conveniently positioned (e.g. on a table) Walking 3 - Pain prevents me from walking more than 1/4 mile Sitting 4 - Pain prevents me from sitting more than 10 minutes Standing 4 - Pain prevents me from standing more than 10 minutes Sleeping 2 - Even when I take medication I have less than 6 hours of sleep Social Life 5 - I have no social life because of pain Total Score 97 Interpretation 81% - 100% - (bed-bound or exaggerating) MEDICATIONS: Current Outpatient Medications Medication Sig gabapentin (NEURONTIN) 600 mg tablet Take 600 mg by mouth three times a day. HYDROXYZINE HCL ORAL Take by mouth once daily as needed. Unknown dosage DULoxetine (CYMBALTA) 60 mg capsule Take 1 capsule by mouth once daily for 14 days. LIDOCAINE PAIN RELIEF 4 % patch TRELEGY ELLIPTA 200-62.5-25 mcg inhalation powder inhale 1 puff once daily lidocaine (LIDODERM) 5 % lamoTRIgine (LAMICTAL) 100 mg tablet Take 1 tablet by mouth twice daily. No current facility-administered medications for this visit. REVIEW OF SYSTEMS: Constitutional: Negative for fever and chills. Eyes: Negative for blurred vision and double vision. Respiratory: Negative for shortness of breath. Cardiovascular: Negative for chest pain and leg swelling. Gastrointestinal: Negative for nausea. Genitourinary: Negative for dysuria. Neurological: Negative for tingling, POS weakness and headaches. Endo/Heme/Allergies: Does bruise/bleed easily. Psychiatric/Behavioral: Negative for suicidal ideas and substance abuse. OBSERVATION/PHYSICAL EXAM: AANDOx3 Antalgic: Flexed Bilateral DTR: 2/4 to UE and LE MOTOR : 5/5 to upper extremity and lower extremity SENSORY: Pin prick/light touch NOT intact RANGE OF MOTION: reduced HEEL WALK: WNL TOE WALK: WNL ORTHO EXAM: PROVACITIVE TESTING: SLR PALPATION: WNL Tenderness: no tenderness LEG LENGTH: N/A wnl PERIPHERAL PULSES: Palpable PERIPHERAL EDEMA: Segmental dysfunction : TLS The patient is alert and oriented in no acute distress. I have confirmed and edited as necessary the HPI and ROS obtained by others. IMPRESSION AND PLAN: (M54.50, G89.29) Chronic bilateral low back pain without sciatica (primary encounter diagnosis) (M99.01) Segmental and somatic dysfunction of cervical region (M99.05) Segmental and somatic dysfunction of pelvic region (M99.04) Segmental and somatic dysfunction of sacral region No orders found for this visit on 08/27/23. Treatments Acupunture lumbar spine, 3 units, 38 minutes and Manipulation/ART 3-4 areas,C4-5/T5-6 / L3/SI , cervical spine, sacral, and pelvic, Return: 2 times, 4 weeks Patient responded well, instructed to call with problems or concerns I personally performed treatments/procedures listed above. Time in: 948 Time out: 1100 Dr. Bello Lim DC Referring Provider: TRISHA TENORIO [[id number]] Allergies As of Date: 08/27/2023 (No Known Allergies) Date Reviewed: 08/27/2023 Reviewed by: Bridgette Fraser LMT - Fully Assessed Reason for Visit: Low Back Pain [126] Back Pain [12] Primary Visit Diagnosis:Chronic bilateral low back pain without sciatica [M54.50, G89.29] Other Visit Diagnoses:Segmental and somatic dysfunction of cervical region [M99.01] Segmental and somatic dysfunction of pelvic region [M99.05] Segmental and somatic dysfunction of sacral region [M99.04] Order(s):ACUPUNCT W/O STIMUL 15 MIN [27273DIF] Order #: [id number] ACUPUNCT W/O STIMUL ADDL 15M [[id number]] Order #: [id number]: 2 CHIROPRAC MANIP,SPINAL,3-4 REGIONS [[id number]] Order #: [id number] XR LUMBAR SPNE COMP 6V AP/LAT/BOTH OBL/FLEX/EXT (AK) [[id number]] Order #: [id number] (more content not included)... Normal [facility] 08-27-2023 CNPN Telephone (AGSPINE2) DB DOAN ([id number]) 1970 F Date Time Provider Department 08/27/23 COBY TRISHAMEDINA DUGAN AGSPINE2 During your visit today, we recorded the following information about you: Mary Ellen Cavazos 08/27/2023 11:22 AM Signed Procedure(s) being scheduled: 1.Are you diabetic No 2. Are you on any blood thinners? No If yes, does it require a hold? No If yes, was approval letter sent? No 3. Are you taking any aspirin? No 4. Are you currently taking any antibiotics? No If yes, is it prophylactic or for treatment of an infection? No 5. Do you have any allergies to latex? No 6. Do you have any allergies to seafood or shellfish? No 7. Do you have any allergies to x-ray dye? No 8. Did the physician instruct you to take any medication prior to your procedure? No 9. Does this procedure require a charter driver? Yes If yes, has patient been notified that a charter driver is needed and must be present at check in? Yes, mom 10. Were the pre-procedure instructions explained and provided to the patient? Yes 11. Do you have a pacemaker? No 12. Do you have an internal stimulator of any kind? No If yes, please bring the remote with you to your procedure visit. 13. Have you received the COVID-19 Vaccine? Yes. If yes, date(s) received: Last done 2021 (Patient should not receive a procedure including steroids 14 days prior to their first dose of the COVID vaccine. They should not receive any procedure containing steroids in the time frame between their 1st and 2nd doses of the COVID vaccine. They should not receive a procedure containing steroids 14 days after their 2nd dose of the COVID vaccine.) Mary Ellen Cavazos Allergies As of Date: 08/27/2023 (No Known Allergies) Date Reviewed: 08/27/2023 Reviewed by: Bridgette Fraser LMT - Fully Assessed Reason for Visit: Injections [199] Cmt: Questions Prescriptions as of 08/27/2023 - gabapentin (NEURONTIN) 600 mg tablet Take 600 mg by mouth three times a day. - HYDROXYZINE HCL ORAL Take by mouth once daily as needed. Unknown dosage - DULoxetine (CYMBALTA) 60 mg capsule Take 1 capsule by mouth once daily for 14 days. - LIDOCAINE PAIN RELIEF 4 % patch - TRELEGY ELLIPTA 200-62.5-25 mcg inhalation powder inhale 1 puff once daily - lidocaine (LIDODERM) 5 % - lamoTRIgine (LAMICTAL) 100 mg tablet Take 1 tablet by mouth twice daily. Problem List As Of Date 08/27/2023 Noted Resolved Neck pain, chronic [M54.2, G89.29] 10/28/2014 Arm pain, diffuse [M79.603] 10/28/2014 Bilateral low back pain with left-sided sciatic*10/28/2014 Leg pain, diffuse [M79.606] 10/28/2014 Generalized anxiety disorder [F41.1] 10/28/2014 Epilepsy (HCC) [G40.909] 10/28/2014 DDD (degenerative disc disease), lumbar [M51.36]12/03/2018 Sprain or strain of cervical spine [VSZ3812] 07/16/2014 Sacroiliitis (HCC) [M46.1] 05/02/2022 Primary osteoarthritis of left hip [M16.12] 01/08/2019 Lymphadenopathy [R59.1] 06/30/2020 Disorder of sacrum [M53.3] 01/08/2019 Centrilobular emphysema (HCC) [J43.2] 03/23/2022 Brachial neuritis or radiculitis [M54.12] 08/14/2011 Anxiety attack [F41.0] 09/16/2014 Encounter Status:Closed by MARY ELLEN CAVAZOS on 08/27/23 [facility] CNPN Telephone (AGSPINE2) DB DOAN ([id number]) 1970 F Date Time Provider Department 08/27/23 BRIDGETTE FRASER AGSPINE2 During your visit today, we recorded the following information about you: Bridgette Fraser LMT 08/27/2023 6:40 AM Signed INSURANCE CO. ID # GROUP # [id number] DEDUCTIBLE COINSUR. OUT OF POCKET MAX PRIOR AUTH REQU'D LIMITATIONS REFERENCE # SPOKE TO: [place] [employer] [phone] [id number] - - -- - AFTER VISIT LIMIT MET 15 MP 30 ACU [id number] MARIYA C 2 XRAYS IN CALENDAR YEAR Is this a Medicare or Medicaid product? N Does this follow Medicare guidelines? N Is this a [employer] product? N Does this require clinical submission through [employer]? N Chiropractor: Dr. Lim Contracted: Y Chiropractic benefits: In network Are the billable benefits a HARD LIMIT? NO If yes, how do we ask for more visits? Fax: Mail: Phone: Website: Ask for the [employer] care department for benefits Be sure to ask: Are these supervised or unsupervised therapeutic modalities covered if billed by a chiropractor? CPT CODE NAME COVERED? 40036 Manual manipulations spine 1-2 Y 72555 66849 Manual manipulations spine 3-4 Manual manipulations spine 5 Y Y 86281 Manual manipulations of extremities 46370 Hot/cold packs 60903 Mechanical traction 14708 Electrical stimulation 06049 Therapeutic exercises 24895 Neuromuscular re-education 30403 91137 Dry needling 1-2 Muscles Dry needling 3-4 muscles 45397 Massage therapy 77124 Manual therapy 77892 Acupuncture < 15 minutes Y 77147 31183 12128 Acupuncture > 15 minutes Acupuncture with stim < 15 minutes Acupuncture with stim > 15 minutes Y Bridgette Fraser LMT Allergies As of Date: 08/27/2023 (No Known Allergies) Date Reviewed: 08/20/2023 Reviewed by: Trisha Tenorio APRN.TECHNICAL APPLICATIONS SPECIALIST - Fully Assessed Reason for Visit: Insurance Authorization [[id number]] Cmt: CHIRO 2023 Prescriptions as of 08/27/2023 - gabapentin (NEURONTIN) 600 mg tablet Take 600 mg by mouth three times a day. - HYDROXYZINE HCL ORAL Take by mouth once daily as needed. Unknown dosage - DULoxetine (CYMBALTA) 60 mg capsule Take 1 capsule by mouth once daily for 14 days. - LIDOCAINE PAIN RELIEF 4 % patch - TRELEGY ELLIPTA 200-62.5-25 mcg inhalation powder inhale 1 puff once daily - lidocaine (LIDODERM) 5 % - lamoTRIgine (LAMICTAL) 100 mg tablet Take 1 tablet by mouth twice daily. Problem List As Of Date 08/27/2023 Noted Resolved Neck pain, chronic [M54.2, G89.29] 10/28/2014 Arm pain, diffuse [M79.603] 10/28/2014 Bilateral low back pain with left-sided sciatic*10/28/2014 Leg pain, diffuse [M79.606] 10/28/2014 Generalized anxiety disorder [F41.1] 10/28/2014 Epilepsy (HCC) [G40.909] 10/28/2014 DDD (degenerative disc disease), lumbar [M51.36]12/03/2018 Sprain or strain of cervical spine [QUS8893] 07/16/2014 Sacroiliitis (HCC) [M46.1] 05/02/2022 Primary osteoarthritis of left hip [M16.12] 01/08/2019 Lymphadenopathy [R59.1] 06/30/2020 Disorder of sacrum [M53.3] 01/08/2019 Centrilobular emphysema (HCC) [J43.2] 03/23/2022 Brachial neuritis or radiculitis [M54.12] 08/14/2011 Anxiety attack [F41.0] 09/16/2014 Encounter Status:Closed by BRIDGETTE FRASER on 08/27/23 [facility] Oneil 08-20-2023 XUANN Telephone (AGSPINE2) DB [id number]) 1970 F Date Time Provider Department 08/20/23 BRIDGETTE FRASER AGSPINE2 During your visit today, we recorded the following information about you: Bridgette Fraser LMT 08/20/2023 2:59 PM Signed LVM for patient to schedule with WINSOME Redmond Stephanie A, LMT 08/21/2023 11:16 AM Signed Patient was scheduled with WINSOME Kate Robert 08/26/2023 2:11 PM Signed LVM with patient to call back/schedule EMG, caudal EDNA, and OV after the injection. Brandy Samuel Allergies As of Date: 08/20/2023 (No Known Allergies) Date Reviewed: 08/20/2023 Reviewed by: Trisha Tenorio APRN.TECHNICAL APPLICATIONS SPECIALIST - Fully Assessed Reason for Visit: Appointment [186] Prescriptions as of 08/26/2023 - gabapentin (NEURONTIN) 600 mg tablet Take 600 mg by mouth three times a day. - HYDROXYZINE HCL ORAL Take by mouth once daily as needed. Unknown dosage - DULoxetine (CYMBALTA) 60 mg capsule Take 1 capsule by mouth once daily for 14 days. - LIDOCAINE PAIN RELIEF 4 % patch - TRELEGY ELLIPTA 200-62.5-25 mcg inhalation powder inhale 1 puff once daily - lidocaine (LIDODERM) 5 % - lamoTRIgine (LAMICTAL) 100 mg tablet Take 1 tablet by mouth twice daily. Problem List As Of Date 08/20/2023 Noted Resolved Neck pain, chronic [M54.2, G89.29] 10/28/2014 Arm pain, diffuse [M79.603] 10/28/2014 Bilateral low back pain with left-sided sciatic*10/28/2014 Leg pain, diffuse [M79.606] 10/28/2014 Generalized anxiety disorder [F41.1] 10/28/2014 Epilepsy (HCC) [G40.909] 10/28/2014 DDD (degenerative disc disease), lumbar [M51.36]12/03/2018 Sprain or strain of cervical spine [CJP0354] 07/16/2014 Sacroiliitis (HCC) [M46.1] 05/02/2022 Primary osteoarthritis of left hip [M16.12] 01/08/2019 Lymphadenopathy [R59.1] 06/30/2020 Disorder of sacrum [M53.3] 01/08/2019 Centrilobular emphysema (HCC) [J43.2] 03/23/2022 Brachial neuritis or radiculitis [M54.12] 08/14/2011 Anxiety attack [F41.0] 09/16/2014 Encounter Status:Closed by BRIDGETTE FRASER on 08/20/23 [facility] CNOVon 08-19-2023 CNOV Office Visit (AGSPIN E2) DB DOAN ([id number]) 1970 F Date Time Provider Department 08/19/23 1:00 PM TRISHA TENORIO AGSPINE2 During your visit today, we recorded the following information about you: Trisha Tenorio APRN.[facility] 08/07/2023 7:33 AM Signed Ice and heat as tolerated Activity as tolerated Referring Provider: SELF [200] Allergies As of Date: 08/19/2023 (No Known Allergies) Date Reviewed: 08/12/2023 Reviewed by: Marleny Rodriguez, NIK - Fully Assessed Primary Visit Diagnosis:APPOINTMENT CANCELLED Prescriptions as of 08/20/2023 - gabapentin (NEURONTIN) 600 mg tablet Take 600 mg by mouth three times a day. - HYDROXYZINE HCL ORAL Take by mouth once daily as needed. Unknown dosage - DULoxetine (CYMBALTA) 60 mg capsule Take 1 capsule by mouth once daily for 14 days. - LIDOCAINE PAIN RELIEF 4 % patch - TRELEGY ELLIPTA 200-62.5-25 mcg inhalation powder inhale 1 puff once daily - lidocaine (LIDODERM) 5 % - lamoTRIgine (LAMICTAL) 100 mg tablet Take 1 tablet by mouth twice daily. Problem List As Of Date 08/19/2023 Noted Resolved Neck pain, chronic [M54.2, G89.29] 10/28/2014 Arm pain, diffuse [M79.603] 10/28/2014 Bilateral low back pain with left-sided sciatic*10/28/2014 Leg pain, diffuse [M79.606] 10/28/2014 Generalized anxiety disorder [F41.1] 10/28/2014 Epilepsy (HCC) [G40.909] 10/28/2014 DDD (degenerative disc disease), lumbar [M51.36]12/03/2018 Sprain or strain of cervical spine [LDQ6456] 07/16/2014 Sacroiliitis (HCC) [M46.1] 05/02/2022 Primary osteoarthritis of left hip [M16.12] 01/08/2019 Lymphadenopathy [R59.1] 06/30/2020 Disorder of sacrum [M53.3] 01/08/2019 Centrilobular emphysema (HCC) [J43.2] 03/23/2022 Brachial neuritis or radiculitis [M54.12] 08/14/2011 Anxiety attack [F41.0] 09/16/2014 Other instructions from your clinician: Ice and heat as tolerated Activity as tolerated Encounter Status:Closed by TRISHA TENORIO on 08/20/23 [facility] ED Prov Noteon 08-13-2023 ED Prov Note ED PROVIDER NOTE [facility] EMERGENCY DEPARTMENT NAME: Db Doan AGE: 53 y.o. : 1970 VISIT DATE: 08/13/2023 CSN: [id number] PCP: System, Provider Not In Chief Complaint Patient presents with Ankle Pain Patient presents to the emergency department for complaint of left ankle and calf pain. Patient explains that she stepped in a pothole about a week ago and has had left ankle pain since then. States that she also has had some intermittent left calf pain and some tingling in her foot. She did not fall down or sustain any other injuries. She states that she does have chronic back pain from having ankylosing spondylitis. She also states that she has pain in her tailbone on and off as she has had a previous tailbone fracture a little over a year ago. States that sometimes she wakes up in her joints are all painful as well. She is supposed to see pain management doctor along with a neurosurgeon next week. Patient denies any numbness, tingling or any weakness. Denies all other symptoms and complaints at this time. Past Medical History: Diagnosis Date Ankylosing hyperostosis Anxiety Depression Epilepsy (HCC) Neuropathy Past Surgical History: Procedure Laterality Date SECTION HERNIA REPAIR History reviewed. No pertinent family history. Social History Socioeconomic History Marital status: Tobacco Use Smoking status: Every Day Types: Cigarettes Smokeless tobacco: Never Vaping Use Vaping Use: Never used Substance and Sexual Activity Alcohol use: Never Drug use: Never Previous Medications Medication Sig acetaminophen (TYLENOL) 500 MG tablet Take 2 (two) tablets (1,000 mg total) by mouth every 6 (six) hours as needed . budesonide-formoteroL (SYMBICORT) 80-4.5 mcg/actuation inhaler Inhale 2 (two) puffs . DULoxetine (CYMBALTA) 60 MG capsule Take 1 (one) capsule (60 mg total) by mouth . lamoTRIgine (LAMICTAL) 100 MG tablet Take 1.5 (one and a half) tablets (150 mg total) by mouth . hydrOXYzine (ATARAX) 50 MG tablet Take by mouth . No Known Allergies Review of Systems Constitutional: Negative for activity change, chills, fatigue and fever. HENT: Negative for congestion, ear pain, hearing loss, postnasal drip, rhinorrhea, sore throat and trouble swallowing. Eyes: Negative for photophobia, pain, redness and visual disturbance. Respiratory: Negative for cough, chest tightness, shortness of breath and wheezing. Cardiovascular: Negative for chest pain, palpitations and leg swelling. Gastrointestinal: Negative for abdominal pain, constipation, diarrhea, nausea and vomiting. Genitourinary: Negative for difficulty urinating, dysuria, hematuria and urgency. Musculoskeletal: Positive for arthralgias and myalgias. Negative for back pain, neck pain and neck stiffness. Skin: Negative for color change and rash. Neurological: Negative for dizziness, speech difficulty, weakness, numbness and headaches. Psychiatric/Behavioral: Negative for agitation and suicidal ideas. The patient is not nervous/anxious. Patient Vitals for the past 24 hrs: BP Temp Pulse Resp SpO2 Height Weight 08/13/23 0647 (!) 149/90 98.3 degrees F (36.8 degrees C) 83 -- 99 % -- -- 08/13/23 0641 -- -- -- 16 -- 5' 7 63.5 kg (140 lb) Physical Exam Vitals and nursing note reviewed. Constitutional: General: She is not in acute distress. Appearance: She is well-developed. She is not toxic-appearing. HENT: Head: Normocephalic and atraumatic. Right Ear: External ear normal. Left Ear: External ear normal. Eyes: Extraocular Movements: Extraocular movements intact. Conjunctiva/sclera: Conjunctivae normal. Cardiovascular: Rate and Rhythm: Normal rate and regular rhythm. Pulses: Normal pulses. Heart sounds: Normal heart sounds. Musculoskeletal: General: No tenderness or deformity. Normal range of motion. Cervical back: Normal range of motion. Comments: Slight tenderness to palpation noted to the left calf and left lateral malleolus without any swelling or deformity Patient maintains full range of motion of her left lower extremity without any difficulty Full strength Neurovascularly intact Pulmonary: Effort: Pulmonary effort is normal. Breath sounds: Normal breath sounds. Skin: General: Skin is warm and dry. Findings: No rash. Neurological: General: No focal deficit present. Mental Status: She is alert. Sensory: No sensory deficit. Motor: No weakness. Psychiatric: Mood and Affect: Mood normal. . Laboratory & Radiographic Imaging (if done): No results found for this visit on 08/13/23. XR Ankle Left 3+ Views (Standard) Final Result No acute findings. Workstation ID: [id number] Venous Doppler LEFT Lower Extremity (Results Pending) Procedures Medical Decision Making Patient presents to the emergency department for complaint of left ankle and calf pain. Patient explains that she stepped i (more content not included)... Normal [facility] DUPLEX VENOUS LEG LEFTon 08-13-2023 US DUPLEX VENOUS LEG LEFT Patient Info Name: DB DOAN Age: 53 years : 1970 Gender: Female Exam Date: 08/13/2023 7:38 AM Patient Status: Emergency Material Man: Kelly Lyon RVT Referring Physician: NICK Lara; Indications M79.605 - Pain in left leg Procedure Description 53826 Duplex examination using B-mode, color and spectral Doppler of extremity veins including responses to compression and other maneuvers; unilateral or limited study. Conclusions * No evidence of deep or superficial vein thrombosis in the left lower extremity. Risk Factors Left leg pain and numbness. Patient has a history of tobacco use-current. . Report Signatures Finalized by Chapo Claros MD on 08/13/2023 08:54 AM External Iliac: - External Iliac: - External Iliac: - External Iliac: - External Iliac: Normal External Iliac: Normal Common Femoral: Complete Common Femoral: Normal Common Femoral: Normal Common Femoral: Complete Common Femoral: Normal Common Femoral: Normal Femoral: - Femoral: Complete Femoral: - Femoral: Normal Femoral: - Femoral: Normal Peroneal: - Peroneal: Complete Peroneal: - Peroneal: - Peroneal: - Peroneal: - Profunda Femoral: - Profunda Femoral: -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 use: Never Drug use: Never Sexual activity: Not on file ALLERGIES No Known Allergies Review of Systems Constitutional: Negative. Negative for weight loss. HENT: Negative. Eyes: Negative. Respiratory: Negative. Cardiovascular: Negative. Gastrointestinal: Negative for abdominal pain. Genitourinary: Negative. Negative for bladder incontinence. Musculoskeletal: Positive for back pain. Skin: Negative. Neurological: Negative for tingling, weakness, numbness and paresthesias. Psychiatric/Behavioral: Negative. All other systems reviewed and are negative. Physical Exam Vitals [08/03/23 0408] BP Pulse Temp Temp src Resp SpO2 Weight Height 153/85 (!) 111 37 ?C (98.6 ?F) Oral 20 100 % 63.5 kg (140 lb) -- Physical Exam Vitals and nursing note reviewed. Constitutional: Appearance: She is well-developed. HENT: Head: Normocephalic and atraumatic. Mouth/Throat: Mouth: Mucous membranes are moist. Eyes: Extraocular Movements: Extraocular movements intact. Conjunctiva/sclera: Conjunctivae normal. Pupils: Pupils are equal, round, and reactive to light. Cardiovascular: Rate and Rhythm: Normal rate and regular rhythm. Pulses: Normal pulses. Heart sounds: Normal heart sounds, S1 normal and S2 normal. No murmur heard. No gallop. Pulmonary: Effort: Pulmonary effort is normal. Breath sounds: Normal breath sounds. Abdominal: General: Bowel sounds are normal. Palpations: Abdomen is soft. Musculoskeletal: General: Normal range of motion. Arms: Cervical back: Normal range of motion and neck supple. Comments: Mild tenderness of the coccyx no ecchymosis Skin: General: Skin is warm and dry. Capillary Refill: Capillary refill takes less than 2 seconds. Neurological: General: No focal deficit present. Mental Status: She is alert and oriented to person, place, and time. Psychiatric: Mood and Affect: Mood normal. Diagnostic Testing ED Labs Ordered and Reviewed - No data to display Procedures ED Course / Clinical Impression Clinical Impressions as of 08/03/23 0437 Exacerbation of chronic back pain MDM / Disposition / Plan MEDICAL DECISION MAKING Number and Complexity of Problems Differential Diagnosis: Chronic lower back pain history of ankylosing spondylitis and coccyx fracture MDM Data External documents reviewed prior inpatient notes. My EKG interpretation: My CT interpretation: My X-ray interpretation: My Ultrasound interpretation: Tests considered but not ordered Decision rules/scores evaluated: Discussed with: Treatment and Disposition ED Course: This is a 53-year-old woman with a history of possible ankylosing spondylitis chronic back pain here in the emergency room with exacerbation of pain no recent fever no trauma no incontinence of urine or stool. She has an appointment to see the neurosurgeon at [facility]. Examination she is awake she is alert able to bear full weight on both legs . Abdomen is soft nontender. Back examination showed there is mild tenderness to the coccyx area but no ecchymosis negative straight leg raising test. Social determinants of health that impact treatment or disposition Shared decision making: Code status: Management Meds Given During Visit ED Medication Administration from 08/03/2023 0344 to 08/03/2023 0437 None Dispositio (more content not included)... Normal [facility] EDon 08-01-2023 ED [place], [place] [address] [id number] DB DOAN None EMERGENCY ROOM REPORT MR [id number] History of Present Illness Date of Service 08/01/23 Provider Siddhartha Crisostoom MD Chief Complaint Pain, Joint History of Present Illness 53-year-old female patient comes to the ED secondary to diffuse body aches. Patient says she has a history of ankylosing spondylitis and fibromyalgia. She notes that she has had a big flareup of her joint pain. She went to the ER in [facility] yesterday where her son is and she got a shot of steroids. She notes that the pain in her wrists and hands are feeling little bit better today but her back is still hurting pretty badly. She has no fevers or chills. She notes no weight loss. I reviewed her past medical history family history and social history. I did an [facility] report on her and reviewed it and discussed it with her. Past Medical/Surgical History : EPILEPSY : Depression : Anxiety : ankilosing spondylisis Family History Diabetes: none Hypertension: none CHF: none Neurological: dementia Social History Smoking history: Current every day smoker Alcohol: DENIES Drugs: DEBIES Home Medications . Active Scripts Lamotrigine (Lamictal) 150 MG PO DAILY Duloxetine Hcl (Cymbalta) 60 MG PO BID Gabapentin 600 MG PO TID Acetaminophen (Tylenol Extra Strength) 1,000 MG PO Q6HPRN PRN PAIN Hydroxyzine Hcl (Atarax) 50 MG PO BID Cyclobenzaprine HCl (Cyclobenzaprine Hydrochlo) 10 MG PO BIDPRN PRN spasm Lidocaine (Lidocaine Patch 5%) 5 % TOP DAILY Home medications above are reviewed by me Allergies Allergies Coded Allergies: NO KNOWN DRUG ALLERGY (NKDA) (05/17/23) Review of Systems Other All remaining systems are reviewed and found to be negative Examination Exam Vitals Vital Signs Date Time Temp Pulse Resp B/P B/P Pulse O2 O2 Flow FiO2 Mean Ox Delivery Rate 07/31 0636 97.9 99 20 140/96 112 100 07/31 0622 97.9 99 20 140/96 112 100 Room Air General Appearance: Alert and oriented, uncomfortable. Vitals are noted above by me. Blood pressure when I was in the room was 120/76 HEENT: No scleral icterus, no thyromegaly, airway normal, mucus membranes pink and moist. Lungs: nonlabored respirations Heart: Regular rate. Neurological: Alert and oriented x3. Moves all 4 without ataxia Mental Status: Cooperative. Musculoskeletal: No deformities. No inflamed joints. Hands are little puffy and tender in the MCP area. Also complains of pain at the DIP joints. Lower rounder and backer to palpation. Range of motion is okay at this time. Skin: No skin disruptions, no rashes. Date of Last Tetanus: UNK Assessment / Plan, ED Clinical Impression: Chronic pain Diagnosis: Exacerbation of arthritis Orders: All Orders Procedure Date/time Status SEEN BY PHYSICIAN / PROVIDER 07/31 729 Active Medical Decision Makin-year-old female who came to ED secondary to pain in her lower back. She gave me a history of having a flareup of her some sort of rheumatological versus ankylosing spondylitis with diffuse body pain after working in the yard too much over 12 days ago. She notes that she has an appointment with the spine surgeon on August 02 and she has an appointment with a pain clinic on August 15. I reviewed her OARRS report. She is on chronic Neurontin per her family doctor. I gave her an injection of Dilaudid 0.5 mg IM here in the emergency department. Gave her Zofran for some nausea that she is complaining of. And I am going to give her 2 Percocets to go home with. I advised her to please take it easy rest and follow-up as directed with these physicians. I reviewed her old medical record from here as well as I had seen her back in April. Condition: Good Disposition: HOME/PENITENTIARY/ASSIST.ANUSHA() Referrals: None (PCP/Family): As Needed Patient Instructions: DI for Joint Pain Additional Instructions: return if worse follow up as [lanned with specialists J Siddhartha Crisostomo MD Signed Electronically 08/01/23 0802 EMERGENCY ROOM REPORT Normal [facility] Noelle 07-25-2023 CARLY Office Visit (AGSPIN E2) DB DOAN ([id number]) 1970 F Date Time Provider Department 07/25/23 9:00 AM TRISHA TENORIO AGSPINE2 During your visit today, we recorded the following information about you: Trisha Tenorio APRN.TECHNICAL APPLICATIONS SPECIALIST 07/22/2023 7:07 AM Signed Ice and heat as tolerated Activity as tolerated Referring Provider: SELF [200] Allergies As of Date: 07/25/2023 (No Known Allergies) Date Reviewed: 03/09/2023 Reviewed by: Luis Howard, NIK - Fully Assessed Primary Visit Diagnosis:APPOINTMENT CANCELLED Prescriptions as of 07/29/2023 - DULoxetine (CYMBALTA) 60 mg capsule Take 1 capsule by mouth once daily for 14 days. - LIDOCAINE PAIN RELIEF 4 % patch - meloxicam (MOBIC) 7.5 mg tablet Take 1 tablet by mouth every afternoon. - TRELEGY ELLIPTA 200-62.5-25 mcg inhalation powder inhale 1 puff once daily - guaiFENesin (MUCINEX) 600 mg 12 hr tablet as needed. - lidocaine (LIDODERM) 5 % - lamoTRIgine (LAMICTAL) 100 mg tablet Take 1 tablet by mouth twice daily. Problem List As Of Date 07/25/2023 Noted Resolved Neck pain, chronic [M54.2, G89.29] 10/28/2014 Arm pain, diffuse [M79.603] 10/28/2014 Bilateral low back pain with left-sided sciatic*10/28/2014 Leg pain, diffuse [M79.606] 10/28/2014 Generalized anxiety disorder [F41.1] 10/28/2014 Epilepsy (HCC) [G40.909] 10/28/2014 DDD (degenerative disc disease), lumbar [M51.36]12/03/2018 Sprain or strain of cervical spine [ROE6967] 07/16/2014 Sacroiliitis (HCC) [M46.1] 05/02/2022 Primary osteoarthritis of left hip [M16.12] 01/08/2019 Lymphadenopathy [R59.1] 06/30/2020 Disorder of sacrum [M53.3] 01/08/2019 Centrilobular emphysema (HCC) [J43.2] 03/23/2022 Brachial neuritis or radiculitis [M54.12] 08/14/2011 Anxiety attack [F41.0] 09/16/2014 Other instructions from your clinician: Ice and heat as tolerated Activity as tolerated Medications Discontinued During This Encounter Prescriptions - HYDROcodone-Acetaminoph en (NORCO) 10-325 mg per tablet (Discontinued) Reported on 03/09/2023 - ibuprofen (MOTRIN ORAL) (Discontinued) Reported on 03/09/2023 - methocarbamol (ROBAXIN) 750 mg tablet (Discontinued) Reported on 03/09/2023 - Methylsulfonylmethane 500 mg cap (Discontinued) Reported on 03/09/2023 Encounter Status:Closed by TRISHA TENORIO on 07/29/23 [facility] Emergency Department Summary on 07-12-2023 Emergency Department Summary [facility] Medical Records Department [address] [place] [address] Emergency Department Summary 07/12/23 MR#: [id number] Acct: [id number] Name: DB DOAN Rep #: [id number] : 1970 53 From: Jose Alfaro DO PCP: Care Physician,No Primary Status:DEP ER Location: ED HPI History of Present Illness Chief Complaint: Back Informant: patient Narrative Narrative: Patient is a 53-year-old female with past medical history of ankylosing spondylitis. She reports she has chronic back pain from this but also has a old injury. She states the other day she had a mechanical fall where she reinjured her back. She denies striking her head any loss of consciousness or history of bleeding disorder or blood thinner use. She states she had increased pain since a fall with any type of motion making it difficult to ambulate or sleep. She states there is been no loss of bowel or bladder control and she denies any history of IV drug use. However based on the persistent pain and difficulty sleeping she presents for evaluation [facility] Medical History no medical history Home Medications ???Medication ???Instructions ???Recorded ???Last Taken ???Type naproxen 500 mg tablet 500 mg PO BID #14 tabs 05/30/23 Unknown Rx oxycodone-acetaminophen 5 mg-325 1 tab PO Q6H PRN pain 5 days #20 07/12/23 Unknown Rx mg tablet (Percocet) tabs Allergy/AdvReac Type Severity Reaction Status Date / Time No Known Allergies Allergy Verified 05/30/23 15:48 Social History (Updated 05/30/23 @ 16:[address] Addy Faith MD) household members: children Smoking Status: Current every day smoker tobacco type: cigarettes alcohol intake: current substance use type: does not use ROS ROS ED Constitutional Constitutional ED: Denies chills or fever(s) Eyes Eyes: Denies change in vision ENT ENT ED: Denies sore throat Cardiovascular Cardiovascular: Denies chest pain Respiratory/Chest Respiratory/Chest: Denies cough or dyspnea Gastrointestinal Gastrointestinal: Denies abdominal pain, diarrhea, nausea or vomiting Genitourinary Genitourinary ED: Denies dysuria Musculoskeletal Musculoskeletal: Reports back pain Integumentary Denies rash Neurologic Neurologic: Denies headache(s), paresthesias or weakness Hematologic/Lymphatic Hematologic/Lymphatic: Denies easy bleeding or easy bruising EXAM Physical Exam Const Vital Signs: 07/12/23 04:46 07/12/23 05:45 Temperature 97.1 F L 97.1 F L Temperature Source Temporal Pulse Rate 110 H 110 H Respiratory Rate 18 18 Blood Pressure 169/92 H 169/92 H Blood Pressure Mean 117 117 Pulse Ox 99 99 Oxygen Delivery Method Room Air Positive well nourished and well developed General Appearance ED: well developed; Negative for pallor HEENT HEENT Narrative: Normocephalic atraumatic Eyes PERRL and EOMs intact bilaterally General Eye ED: Negative for scleral icterus Neck supple Resp normal respiratory effort and clear to auscultation bilaterally Cardio regular rhythm Rate: tachycardic and other Other Details: Tachycardic rate with regular rhythm Radial and carotid pulses are equal and symmetric GI normal to inspection, nondistended, normoactive bowel sounds, non-tender, non-distended and no masses GI Narrative: No voluntary guarding or rigidity or pulsatile mass Auscultation: normoactive bowel sounds Palpation: soft Back/Spine no CVA tenderness Back/Spine Narrative: No bony deformity or step-off of the thoracic or lumbar spine patient does have midline lumbar tenderness with palpation as well as bilateral paralumbar tenderness and spasm that worsens with motion No saddle anesthesia. Negative straight leg raise. No clonus or Babinski. Patellar reflexes are plus 1 out of 4 bilaterally Extremity normal to inspection Extremity Narrative: No asymmetric edema no pitting edema negative Homans' sign bilaterally Neuro oriented x3, CN's II-XII intact bilaterally and no sensory deficits noted Sensorium / Orientation: alert Psych Psych Narrative: Patient has a tearful/anxious affect Mood Affect: anxious and tearful Skin no rashes or lesions noted and no wounds General Skin Exam: Negative for jaundice or pallor MDM MDM MDM Narrative Medical decision making narrative: Patient arrived to the ER hypertensive and tachycardic but was felt this was secondary to pain. She reported a longstanding history of back problems but states that the pain worsened after a mechanical fall. As she reported the fall was mechanical there is low concern for cardiac or syncopal cause and I do not feel there is need for laboratory testing. She also denies any loss of bowel or bladder control or IV drug use and my concern for cauda equina versus epidural abscess is low. Based on her histo (more content not included)... Normal [facility] L/S Spine Min 4 Viewson 07-02 0-2023 L/S Spine Min [address] [facility] Imaging Services [address] [place] [address] L/S Spine Min 4 Views MR#: [id number] Acct: [id number] Name: DB DOAN Rep #: [id number] : 1970 F 53 From: Yovanny Kwan PCP: Care Physician,No Primary Status: REG ER Study: L/S Spine Min 4 Views Date of Exam: 07/12/23 Exam# [id number] Ordering [place]: [place] [id number] INDICATION: pain EXAMINATION/TECHNIQUE: X-RAY - XR Spine Lumbar Min 4 Views COMPARISON: No relevant prior comparison study available FINDINGS: VERTEBRAE: Preserved vertebral body height. No fracture. No spondylolisthesis. Preservation of the normal lumbar lordosis. No significant facet arthropathy. DISCS: Disc spaces are maintained. INCLUDED ABDOMEN: Included bowel gas pattern is non-obstructive. RAD/L/S Spine Min 4 Views IMPRESSION: No evidence of lumbar spinal fracture or spondylolisthesis. Electronically Signed: Yovanny Addison MD at 6:20 EDT Reading Location ID and State: [facility] / [place] Tel , Service support , CC: Jose Alfaro DO; No Primary Care Physician Jalousies Installer: Signed Normal [facility] ABD GB/PANC/LIVERon 06-15-19 ABD GB/PANC/LIVER DB DOAN Female [id number] Ordering physician: Babs Lou LOC:ER [id number] Attending physician: 1970 53 DO S: 06/15/23 Acc#: [id number] Exam/Proc: ABD GB/PANC/LIVER Dept: ULTRASOUND EXAMINATION: ULTRASOUND RUQ TECHNIQUE: Grayscale/B-mode and color Doppler flow evaluation of the abdomen COMPARISON: Same day CT abdomen pelvis HISTORY: ORDERING SYSTEM PROVIDED HISTORY: TECHNOLOGIST PROVIDED HISTORY: Reason for Exam: abdominal pain FINDINGS: The liver is normal in size and echogenicity. No focal lesions are seen. There is no intra or extrahepatic bile duct dilatation. The common duct is 7 mm at the tayo hepatis. The gallbladder is distended measuring 11 cm. No evidence of calculus, wall thickening or a positive Granados's sign. The visualized pancreas is suboptimally visualized. No ascites is seen in Khanna's pouch. The right kidney measures 10.7 x 4.9 x 4.2 cm and is unremarkable. IMPRESSION: Distended gallbladder and borderline dilated common bile duct without evidence of cholecystitis. If clinically appropriate consider nuclear medicine hepatobiliary imaging or MRCP. Electronically signed By Brandy Crow MD 06/15/2023 12:51:21 PM EST Workstation ID : [id number] REPORT SIGNATURE ON FILE Electronically Signed Date/Time: 06/15/23 1251 Dictated Date/time: 06/15/23 1247 CC: [facility] ABDOMEN/PELVIS W/CONTRASTon 06-15-2023 ABDOMEN/PELVIS W/CONTRAST DB DOAN Female [id number] Ordering physician: Babs Lou LOC:ER [id number] Attending physician: 1970 53 DO S: 06/15/23 Acc#: [id number] Exam/Proc: ABDOMEN/PELVIS W/CONTRAST Dept: COMPUTED TOMOGRAPHY EXAMINATION: CT OF THE ABDOMEN AND PELVIS WITH CONTRAST TECHNIQUE: CT of the Abdomen and Pelvis with intravenous contrast was performed. Axial, sagittal and coronal reformatted images were reviewed. Low dose CT acquisition technique included one of the following options: 1. Automated exposure control, 2. Adjustment of the MA and/or KV according to patient size, or 3. Use of iterative reconstruction. COMPARISON: None HISTORY: ORDERING SYSTEM PROVIDED HISTORY: TECHNOLOGIST PROVIDED HISTORY: Reason for Exam: Back pain FINDINGS: Support devices: None Lower thorax: Right middle lobe and lingula scar or mild atelectasis. Mild dependent right lower lobe subsegmental atelectasis. Solid organs: Decreased hepatic attenuation without a discrete lesion. The spleen, pancreas, and adrenal glands are unremarkable. A small accessory spleen is noted. Biliary system: No evidence of biliary ductal dilatation. The gallbladder is mildly distended without associated mesenteric inflammatory changes. Genitourinary: The kidneys are normal in appearance bilaterally with no evidence of hydronephrosis. No stones are appreciated. The urinary bladder is unremarkable. Gastrointestinal: The stomach is unremarkable. The small bowel is nondistended. Moderate retained fecal matter is seen throughout the colon. No evidence of a bowel obstruction. Appendix: Within normal limits without adjacent fat stranding. Peritoneum: No ascites, pneumoperitoneum, or abscess. Abdominal wall: No ventral wall hernia. Pelvic organs: The uterus is atrophic. Lymph nodes: No adenopathy by size criteria. Vascular structures: Visualized vascular structures appear normal. Osseous and soft tissue structures: Bone windows demonstrate no suspicious osteolytic or osteoblastic lesions. No fracture identified. A mild thoracolumbar rotary dextroscoliosis is present. IMPRESSION: 1. Mildly distended gallbladder. Consider further evaluation with ultrasound. 2. Moderate retained fecal matter throughout the colon. 3. Hepatic steatosis. Electronically signed By Brandy Crow MD 06/15/2023 11:17:09 AM EST Workstation ID : [id number] REPORT SIGNATURE ON FILE Electronically Signed Date/Time: 06/15/23 1117 Dictated Date/time: 06/15/23 1110 CC: Normal [facility] Bilirubin Test strip Ql (U)O rdered By: Babs Lou on 06-15-2023 Bilirubin Ql (U) Negative NEGATIVE [facility] CBC with AUTO DIFFon 024 BAS0 % 0.10 % Normal 0-2 [facility] Comment on above: Performed By: #### D IFF (MANUAL), CBC #### [address] [address] Basophils (Bld) [#/Vol] 0.0 10*3/uL Normal 0-0.1 [facility] Comment on above: Performed By: #### D IFF (MANUAL), CBC #### [address] [address] Eosinophils (Bld) [#/Vol] 0.0 10*3/uL Normal 0.0-1.80 [facility] Comment on above: Performed By: #### D IFF (MANUAL), CBC #### [address] [address] Eosinophils/100 WBC (Bld) 0 % Normal 0-8 [facility] Comment on above: Performed By: #### D IFF (MANUAL), CBC #### [address] [address] GRAN # 12.5 K/uL High 2.2-9.1 [facility] Comment on above: Performed By: #### D IFF (MANUAL), CBC #### [address] [address] GRAN % 86.1 % High 42-80 [facility] Comment on above: Performed By: #### D IFF (MANUAL), CBC #### [facility] [address] [place] [address] Hematocrit (Bld) [Volume fraction] 38.8 % Normal 37.0-47.0 [facility] Comment on above: Performed By: #### D IFF (MANUAL), CBC #### [facility] [address] [place] [address] Hemoglobin (Bld) [Mass/Vol] 13.7 g/dL Normal 12.0-16.0 [facility] Comment on above: Performed By: #### D IFF (MANUAL), CBC #### [facility] [address] [place] [address] Lymphocytes (Bld) [#/Vol] 1.2 10*3/uL Normal 1.0-4.0 [facility] Comment on above: Performed By: #### D IFF (MANUAL), CBC #### [address] [address] Lymphocytes/100 WBC (Bld) 8.6 % Low 16-48 [facility] Comment on above: Performed By: #### D IFF (MANUAL), CBC #### [facility] [address] [place] [address] MCV (RBC) [Entitic vol] 93.5 fL Normal 80-97 [facility] Comment on above: Performed By: #### D IFF (MANUAL), CBC #### [address] [place] [address] MEAN CORPUSCULAR HGB 33.0 pg High 26.0-32.0 [facility] Comment on above: Performed By: #### D IFF (MANUAL), CBC #### [address] [place] [address] MEAN CORPUSCULAR HGB CONC 35.3 g/dL Normal 31.0-36.0 [facility] Comment on above: Performed By: #### D IFF (MANUAL), CBC #### [facility] [address] [place] [address] MONO DISTRIB WIDTH 16.15 Normal 0-20 [facility] Comment on above: Result Comment: For ED adult patients suspected of sepsis, MDW<=20.0 does not rule out sepsis or risk of sepsis Performed By: #### D IFF (MANUAL), CBC #### [facility] [address] [place] [address] Monocytes (Bld) [#/Vol] 0.8 10*3/uL Normal 0.1-1.7 [facility] Comment on above: Performed By: #### D IFF (MANUAL), CBC #### [facility] [address] [place] [address] Monocytes/100 WBC (Bld) 5.2 % Normal 3-9 [facility] Comment on above: Performed By: #### D IFF (MANUAL), CBC #### [facility] [address] [place] [address] Platelet mean volume (Bld) [Entitic vol] 5.8 fL Low 6.6-10.5 [facility] Comment on above: Performed By: #### D IFF (MANUAL), CBC #### [facility] [address] [place] [address] Platelets (Bld) [#/Vol] 429 10*3/uL Normal 140-450 [facility] Comment on above: Performed By: #### D IFF (MANUAL), CBC #### [facility] [address] [place] [address] RBC (Bld) [#/Vol] 4.15 10*6/uL Low 4.20-5.50 [facility] Comment on above: Performed By: #### D IFF (MANUAL), CBC #### [facility] [address] [place] [address] RED CELL DISTRI WIDTH 13.1 % Normal 11.0-15.5 [facility] Comment on above: Performed By: #### D IFF (MANUAL), CBC #### [facility] [address] [place] [address] WBC (Bld) [#/Vol] 14.5 10*3/uL High 4.0-11.0 [facility] Comment on above: Performed By: #### D IFF (MANUAL), CBC #### [facility] [address] [place] [address] COMPREHENSIVE METABOLIC PANE Walt 06-15-2023 Albumin [Mass/Vol] 3.2 g/dL Low 3.4-5.0 [facility] Comment on above: Performed By: #### M N, HCG, LIP ####[facility] [facility] [place] [address] Albumin/Globulin [Mass ratio] 1.1 {ratio} Normal 1.1-1.8 [facility] Comment on above: Performed By: #### M N, HCG, LIP ####[facility] [facility] [place] [address] ALP [Catalytic activity/Vol] 47 U/L Normal 45-117 [facility] Comment on above: Performed By: #### M N, HCG, LIP ####[facility] [facility] [place] [address] ALT [Catalytic activity/Vol] 30 U/L Normal 12-78 [facility] Comment on above: Performed By: #### M N, HCG, LIP ####[facility] [facility] [place] [address] Anion gap [Moles/Vol] 13.1 mmol/L Normal 11-23 [facility] Comment on above: Performed By: #### M N, HCG, LIP ####[address] [place] [address] AST [Catalytic activity/Vol] 16 U/L Normal 15-37 [facility] Comment on above: Performed By: #### M N, HCG, LIP ####[facility] [facility] [place] [address] Bilirubin [Mass/Vol] 0.5 mg/dL Normal 0.2-1.0 [facility] Comment on above: Performed By: #### M N, HCG, LIP ####[facility] [facility] [place] [address] Calcium [Mass/Vol] 9.0 mg/dL Normal 8.5-10.1 [facility] Comment on above: Performed By: #### M N, HCG, LIP ####[facility] [facility] [place] [address] Chloride [Moles/Vol] 108 mmol/L High 98-107 [facility] Comment on above: Performed By: #### M N, HCG, LIP ####[facility] [facility] [place] [address] CO2 [Moles/Vol] 23.0 mmol/L Normal 21-32 [facility] Comment on above: Performed By: #### M N, HCG, LIP ####[address] [place] [address] Creatinine [Mass/Vol] 0.90 mg/dL Normal 0.55-1.02 [facility] Comment on above: Performed By: #### M N, HCG, LIP ####[facility] [facility] [place] [address] GFR > 60.0 [facility] Comment on above: Performed By: #### M N, HCG, LIP ####[address] [place] [address] GFR AM > 60.0 [facility] Comment on above: Result Comment: THE NORMAL LEVEL OF GFR VARIES ACCORDING TO AGE, SEX, AND BODY SIZE. A GFR LEVEL OF LESS THAN 60 ML/MIN REPRESENTS LOSS OF THE ADULT LEVEL OF NORMAL KIDNEY FUNCTION. Performed By: #### M N, HCG, LIP ####[place] [address] [place] [address] Globulin (S) [Mass/Vol] 2.8 g/dL Normal 2.5-4.6 [facility] Comment on above: Performed By: #### M N, HCG, LIP ####[address] [place] [address] Glucose [Mass/Vol] 143 mg/dL High 70-100 [facility] Comment on above: Performed By: #### M N, HCG, LIP ####[address] [place] [address] Potassium [Moles/Vol] 3.4 mmol/L Low 3.5-5.1 [facility] Comment on above: Performed By: #### M N, HCG, LIP ####[facility] [facility] [place] [address] Protein [Mass/Vol] 6.0 g/dL Normal 6.0-8.3 [facility] Comment on above: Performed By: #### M N, HCG, LIP ####[facility] [facility] [place] [address] Sodium [Moles/Vol] 141 mmol/L Normal 136-145 [facility] Comment on above: Performed By: #### M N, HCG, LIP ####[address] [place] [address] Urea nitrogen [Mass/Vol] 9.0 mg/dL Normal 7-18 [facility] Comment on above: Performed By: #### M N, HCG, LIP ####[facility] [place] [address] DIFFERENTIALon 06-15-2023 IMMATURE GRANS NONE SEEN Normal [facility] Comment on above: Performed By: #### D IFF (MANUAL), CBC #### [facility] [address] [place] [address] Lymphocytes/100 WBC (Bld) 9 % Low 16-48 [facility] Comment on above: Performed By: #### D IFF (MANUAL), CBC #### [facility] [address] [place] [address] Monocytes/100 WBC (Bld) 5 % Normal 3-9 [facility] Comment on above: Performed By: #### D IFF (MANUAL), CBC #### [facility] [address] [place] [address] Neutrophils/100 WBC (Bld) 86 % High 42-80 [facility] Comment on above: Performed By: #### D IFF (MANUAL), CBC #### [address] [place] [address] PLATELET ESTIMATE NORMAL Normal [facility] Comment on above: Performed By: #### D IFF (MANUAL), CBC #### [facility] [address] [place] [address] RBC morphology finding Nom (Bld) ESSENTIALLY NORMAL Normal [facility] Comment on above: Performed By: #### D IFF (MANUAL), CBC #### [facility] [address] [place] [address] TOTAL CELLS COUNTED 100 #CELLS Normal [facility] Comment on above: Performed By: #### D IFF (MANUAL), CBC #### [facility] [address] [place] [address] Determination of erythrocyte mean corpuscular volume (MCV)Ordered By: Babs Lou on 06-15-2023 MCV (RBC) [Entitic vol] 93.5 fL 80-97 [facility] ED.PDOCon 06-15-2023 ED.PDOC DB DOAN Female [id number] Attending provider: [facility] [id number] Babs Lou 1970 53 DOS: 06/15/23 Hx/Exam - History of Present Illness Chief Complaint: HEADACHE Additional Comments: 53-year-old female states [place] [facility] last night and was in the hospital. She states she had a head CT and a CT of her spine and they told her she might have a kidney stone. They also stated that she had a pituitary tumor or swelling or possibly bleeding on her head CT. She signed herself out because she did not want to be that far away from home. She drove her car back here and then decided to come to [place]. She states she has a headache that been going on for 3 days. She rates it a 10 out of 10. - Review of Systems All Other Systems: Pertinent Positives in HPI, All Other Systems Negative - Past Medical History ED PMH: Yes Anxiety, Yes Arthritis, Yes Depression, Yes Seizures - Past Surgical History Surgical History: Yes (X 2), Yes Hernia Repair (LT INGUINAL) - Social History Smoking Status: Current every day smoker Hx Alcohol Use: No - Physical Exam General Appearance: awake, alert, no apparent distress Eyes: PERRL, EOMI, conjunctivae clear, no scleral icterus Head, Ears, Nose, and Throat: pharynx normal, mucous membranes moist Neck: no stridor, no meningeal signs Respiratory: lungs clear, no wheezes/rhonchi/rales, no respiratory distress, no accessory muscle use Cardiovascular: regular rate, rhythm, no murmur, no gallop Abdomen/GI: non tender, soft, non-distended, normal bowel sounds Rectal Exam: normal rectal tone, other (Skin tag external rectal) Back: lumbar tenderness (L), lumbar tenderness (R), other (Sacrum pain from prior fracture) Extremity: normal inspection, no pedal edema, no calf tenderness Pulses: Radial: 2+ Neurologic: speech clear/fluent, [employer] II-XII intact, other (Normal rectal tone and sensation. No sign of cauda equina syndrome.) Psychiatric: oriented x3, calm, normal affect Skin Exam: warm/dry, normal color - Source of History Source of History: Nursing Notes/Vital Signs/Triage Reviewed and Agree Source of History: Old Medical Records Reviewed Note(s) - Physician Notes Additional Notes, See Orders for Details: MDM Differential Diagnosis includes but is not limited to: Intracranial bleed, pituitary adenoma, migraine, kidney stone, acute on chronic back pain, UTI, pyelonephritis 04/13/24 10:46 06/15/23 09:55 WBC 14.5 H RBC 4.15 L Hgb 13.7 Hct 38.8 Plt Count 429 Gran % (Auto) 86.1 H Lymph % (Auto) 8.6 L Bond % (Auto) 5.2 Eos % (Auto) 0 Baso % (Auto) 0.10 Lymph # (Auto) 1.2 Bond # (Auto) 0.8 Eos # (Auto) 0.0 Baso # (Auto) 0.0 Absolute Gran (auto) 12.5 H Total Counted 100 Seg Neuts % (Manual) 86 H Lymphocytes % (Manual) 9 L Monocytes % (Manual) 5 Monocyte Dist Width 16.15 Sodium 141 Potassium 3.4 L Chloride 108 H Carbon Dioxide 23.0 Anion Gap 13.1 BUN 9.0 Creatinine 0.90 Est GFR ( Amer) > 60.0 Est GFR (Non-Af Amer) > 60.0 Glucose 143 H Calcium 9.0 Total Bilirubin 0.5 AST 16 ALT 30 Alkaline Phosphatase 47 Total Protein 6.0 Albumin 3.2 L Globulin 2.8 Albumin/Globulin Ratio 1.1 Lipase 15 Serum HCG, Qual Negative 06/15/23 09:55 Lactic Acid 4.5 H 06/15/23 10:00 Urine Color Lt. yellow Urine Appearance Clear Urine pH 6.5 Ur Specific [place] <= 1.005 Urine Protein Negative Urine Ketones Negative Urine Blood Negative Urine Nitrite Negative Urine Bilirubin Negative Urine Urobilinogen 0.2 Ur Leukocyte Esterase Negative Urine Glucose Negative CT head without contrast FINDINGS: Parenchyma: No acute intracranial hemorrhage, midline shift, mass effect or acute ischemic infarct is demonstrated. The boogie-white matter junctions are preserved. No space occupying intra-axial masses or extra-axial fluid collections are seen. Ventricles: No evidence of hydrocephalus or ventricular effacement. Vessels: No significant atherosclerotic calcifications. Orbits: Unremarkable. Calvarium: Unremarkable. Paranasal sinuses: Trace effusions in the left sphenoid sinus. Mastoid sinuses: Clear. IMPRESSION: 1. No acute intracranial pathology. 2. Trace effusions in the left sphenoid sinus. Electronically signed By Brandy Crow MD 06/15/2023 11:10:38 AM EST Workstation ID : [id number] CT abdomen pelvis FINDINGS: Support devices: None Lower thorax: Right middle lobe and lingula scar or mild atelectasis. Mild dependent right lower lobe subsegmental atelectasis. Solid organs: Decreased hepatic attenuation without a discrete lesion. The spleen, pancreas, and adrenal glands are unremarkable. A small accessory spleen is noted. Biliary system: No evidence of biliary ductal dilatation. The gallbladder is mildly distended without associated mesenteric inflammatory changes. Genitourinary: The (more content not included)... Normal [facility] EGFR non- AmericanOrd ered By: Babs Lou on 06-15-2023 GFR/1.73 sq M.predicted among non-blacks MDRD (S/P/Bld) [Vol rate/Area] mL/min/{1.73_m2} [facility] Eosinophil percentOrdered By : Babs Lou on 06-15-2023 Basophils/100 WBC (Bld) 0.10 % 0-2 [facility] Bilirubin [Mass/Vol] 0.5 mg/dL 0.2-1.0 [facility] Chloride [Moles/Vol] 108 mmol/L High 98-107 [facility] Eosinophils/100 WBC (Bld) 0 % 0-8 [facility] Hemoglobin (Bld) [Mass/Vol] 13.7 g/dL 12.0-16.0 [facility] Lactate [Moles/Vol] 4.5 mmol/L High 0.4-2.0 [facility] Lymphocytes (Bld) [#/Vol] 1.2 10*3/uL 1.0-4.0 [facility] Lymphocytes/100 WBC (Bld) 8.6 % Low 16-48 [facility] Monocytes (Bld) [#/Vol] 0.8 10*3/uL 0.1-1.7 [facility] Monocytes/100 WBC (Bld) 5.2 % 3-9 [facility] Potassium [Moles/Vol] 3.4 mmol/L Low 3.5-5.1 [facility] Protein [Mass/Vol] 6.0 g/dL 6.0-8.3 [facility] Sodium [Moles/Vol] 141 mmol/L 136-145 [facility] Fluoroscopic guidance for danny mbar puncture (LP)Ordered By: Babs Lou on 06-15-2023 Albumin [Mass/Vol] 3.2 g/dL [facility]4-[facility] Basophils (Bld) [#/Vol] 0.0 10*3/uL 0-0.1 [facility] Eosinophils (Bld) [#/Vol] 0.0 10*3/uL 0.0-1.80 [facility] Glucose Test strip Ql (U)Ord ered By: Babs Lou on 06-15-2023 Glucose Ql (U) Negative NEGATIVE [facility] Granulocytes/100 WBC Auto (B ld)Ordered By: Babs Lou on 06-15-2023 Granulocytes/100 WBC (Bld) 86.1 % High 42-80 [facility] HCG SERUM,QUALITATIVEon 06-02 HCG SERUM,QUALITATIVE Negative Normal [facility] Comment on above: Performed By: #### M N, HCG, LIP ####[address] [address] HCG ser/plasOrdered By: Sabas Lou on 06-15-2023 HCG Qn Negative [facility] HEAD W/O CONTRASTon 06-15-19 HEAD W/O CONTRAST DB DOAN Female [id number] Ordering physician: Babs Lou LOC:ER [id number] Attending physician: 1970 53 DO S: 06/15/23 Acc#: [id number] Exam/Proc: HEAD W/O CONTRAST Dept: COMPUTED TOMOGRAPHY EXAMINATION: CT HEAD TECHNIQUE: Axial CT images from skull base to vertex without IV contrast. This exam was performed according to our departmental dose optimization program, and includes the following measures where applicable: automated exposure control, adjustment of the mAs and/or kVp according to patient size and/or exam, and an iterative reconstruction algorithm. COMPARISON: None HISTORY: ORDERING SYSTEM PROVIDED HISTORY: TECHNOLOGIST PROVIDED HISTORY: Reason for Exam: HEADACHE FINDINGS: Parenchyma: No acute intracranial hemorrhage, midline shift, mass effect or acute ischemic infarct is demonstrated. The boogie-white matter junctions are preserved. No space occupying intra-axial masses or extra-axial fluid collections are seen. Ventricles: No evidence of hydrocephalus or ventricular effacement. Vessels: No significant atherosclerotic calcifications. Orbits: Unremarkable. Calvarium: Unremarkable. Paranasal sinuses: Trace effusions in the left sphenoid sinus. Mastoid sinuses: Clear. IMPRESSION: 1. No acute intracranial pathology. 2. Trace effusions in the left sphenoid sinus. Electronically signed By Brandy Crow MD 06/15/2023 11:10:38 AM EST Workstation ID : [id number] REPORT SIGNATURE ON FILE Electronically Signed Date/Time: 06/15/23 1110 Dictated Date/time: 06/15/23 1108 CC: Normal [facility] LACTIC ACIDon 06-15-2023 Lactate [Moles/Vol] 4.5 mmol/L High 0.4-2.0 [facility] Comment on above: Order Comment: Y Performed By: #### L A ####[facility] [place] [address] LIPASEon 06-15-2023 Lipase [Catalytic activity/Vol] 15 U/L Normal 13- [facility] Comment on above: Performed By: #### M N, HCG, LIP ####[address] [address] Laboratory - Chemistry and C hemistry - challengeOrdered By: Babs Lou on 06-15-2023 Albumin/Globulin [Mass ratio] 1.1 {ratio} 1.1-1.8 [facility] ALP [Catalytic activity/Vol] 47 U/L 45-117 [facility] ALT [Catalytic activity/Vol] 30 U/L 12-78 [facility] AST [Catalytic activity/Vol] 16 U/L 15-37 [facility] Calcium [Mass/Vol] 9.0 mg/dL 8.5-10.1 [facility] CO2 [Moles/Vol] 23.0 mmol/L 21-32 [facility] Creatinine [Mass/Vol] 0.90 mg/dL 0.55-1.02 [facility] GFR/1.73 sq M.predicted MDRD (S/P/Bld) [Vol rate/Area] mL/min/{1.73_m2} [facility] Comment on above: THE NORMAL LEVEL OF GFR VARIES ACCORDING TO AGE, SEX, AND BODY SIZE. A GFR LEVEL OF LESS THAN 60 ML/MIN REPRESENTS LOSS OF THE ADULT LEVEL OF NORMAL KIDNEY FUNCTION. Globulin (S) [Mass/Vol] 2.8 g/dL 2.5-4.6 [facility] Glucose [Mass/Vol] 143 mg/dL High 70-100 [facility] Lipase [Catalytic activity/Vol] 15 U/L 13-75 [facility] Urea nitrogen [Mass/Vol] 9.0 mg/dL 7-18 [facility] Laboratory - Hematology and Cell countsOrdered By: Babs Lou on 06-15-2023 Erythrocyte distribution width (RBC) [Ratio] 13.1 % 11.0-15.5 [facility] Granulocytes (Bld) [#/Vol] 12.5 10*3/uL High 2.2-9.1 [facility] Hematocrit (Bld) [Volume fraction] 38.8 % 37.0-47.0 [facility] MCH (RBC) [Entitic mass] 33.0 pg High 26.0-32.0 [facility] MCHC (RBC) [Mass/Vol] 35.3 g/dL 31.0-36.0 [facility] Platelet mean volume (Bld) [Entitic vol] 5.8 fL Low 6.6-10.5 [facility] Platelets (Bld) [#/Vol] 429 10*3/uL 140-450 [facility] RBC (Bld) [#/Vol] 4.15 10*6/uL Low 4.20-5.50 [facility] Segmented neutrophils/100 WBC (Bld) 86 % High 42-80 [facility] WBC (Bld) [#/Vol] 14.5 10*3/uL High 4.0-11.0 [facility] Laboratory - UrinalysisOrder ed By: Babs Lou on 06-15-2023 Protein Ql (U) Negative NEGATIVE [facility] Laboratory StudiesOrdered By : Babs Lou on 06-15-2023 Urobilinogen Ql (U) 0.2 E.U./dL <=1.0 [facility] pH (U) 6.5 [pH] Normal 5.0-9.0 [facility] Comment on above: Order Comment: What Is Urine Source? Random Performed By: #### U A ####[address] [address] Laboratory studies (set)on 06-15-2023 Appearance (U) CLEAR [facility] Bilirubin Ql (U) NEGATIVE [facility] Color (U) [facility] Glucose Ql (U) NEGATIVE [facility] Hemoglobin Ql (U) NEGATIVE [facility] Ketones Ql (U) NEGATIVE [facility] Leukocyte esterase Test strip Ql (U) NEGATIVE [facility] Nitrite Ql (U) NEGATIVE [facility] Protein Ql (U) NEGATIVE [facility] Specific gravity (U) [Rel density] 1.003-1.035 [facility] Albumin [Mass/Vol] 3.2 g/dL Low 3.4-5.0 [facility] Albumin/Globulin [Mass ratio] 1.1 {ratio} 1.1-1.8 [facility] ALP [Catalytic activity/Vol] 47 U/L 45-117 [facility] ALT [Catalytic activity/Vol] 30 U/L 12-78 [facility] Anion gap [Moles/Vol] 13.1 mmol/L 11-23 [facility] AST [Catalytic activity/Vol] 16 U/L 15-37 [facility] Basophils (Bld) [#/Vol] 0.0 10*3/uL 0-0.1 [facility] Basophils/100 WBC (Bld) 0.10 % 0-2 [facility] Bilirubin [Mass/Vol] 0.5 mg/dL 0.2-1.0 [facility] Calcium [Mass/Vol] 9.0 mg/dL 8.5-10.1 [facility] Chloride [Moles/Vol] 108 mmol/L High 98-107 [facility] CO2 [Moles/Vol] 23.0 mmol/L 21-32 [facility] Creatinine [Mass/Vol] 0.90 mg/dL 0.55-1.02 [facility] Differential Total Cells Counted 100 #CELLS [facility] Eosinophils (Bld) [#/Vol] 0.0 10*3/uL 0.0-1.80 [facility] Eosinophils/100 WBC (Bld) 0 % 0-8 [facility] Erythrocyte distribution width (RBC) [Ratio] 13.1 % 11.0-15.5 [facility] Estimated GFR () [facility] Comment on above: THE NORMAL LEVEL OF GFR VARIES ACCORDING TO AGE, SEX, AND BODY SIZE. A GFR LEVEL OF LESS THAN 60 ML/MIN REPRESENTS LOSS OF THE ADULT LEVEL OF NORMAL KIDNEY FUNCTION. GFR/1.73 sq M.predicted among non-blacks MDRD (S/P/Bld) [Vol rate/Area] [facility] Globulin (S) [Mass/Vol] 2.8 g/dL 2.5-4.6 [facility] Glucose [Mass/Vol] 143 mg/dL High 70-100 [facility] Granulocytes (Bld) [#/Vol] 12.5 10*3/uL High 2.2-9.1 [facility] Granulocytes/100 WBC (Bld) 86.1 % High 42-80 [facility] HCG Qn [facility] Hematocrit (Bld) [Volume fraction] 38.8 % 37.0-47.0 [facility] Hemoglobin (Bld) [Mass/Vol] 13.7 g/dL 12.0-16.0 [facility] Immature Granulocytes [facility] Lactate [Moles/Vol] 4.5 mmol/L High 0.4-2.0 [facility] Lipase [Catalytic activity/Vol] 15 U/L 13-75 [facility] Lymphocytes (Bld) [#/Vol] 1.2 10*3/uL 1.0-4.0 [facility] Lymphocytes Auto (Unsp spec) [#/Vol] 9 % Low 16-48 [facility] Lymphocytes/100 WBC (Bld) 8.6 % Low 16-48 [facility] MCH (RBC) [Entitic mass] 33.0 pg High 26.0-32.0 [facility] MCHC (RBC) [Mass/Vol] 35.3 g/dL 31.0-36.0 [facility] MCV (RBC) [Entitic vol] 93.5 fL 80-97 [facility] Monocyte distribution width Auto (Bld) [Entitic vol] 16.15 0-20 [facility] Comment on above: For ED adult patient s suspected of sepsis, MDW<=20.0 does not rule out sepsis or risk of sepsis Monocytes (Bld) [#/Vol] 0.8 10*3/uL 0.1-1.7 [facility] Monocytes/100 WBC (Bld) 5 % 3-9 [facility] Monocytes/100 WBC (Bld) 5.2 % 3-9 [facility] Platelet mean volume (Bld) [Entitic vol] 5.8 fL Low 6.6-10.5 [facility] Platelets (Bld) [#/Vol] 429 10*3/uL 140-450 [facility] Platelets LM Ql (Bld) [facility] Potassium [Moles/Vol] 3.4 mmol/L Low 3.5-5.1 [facility] Protein [Mass/Vol] 6.0 g/dL 6.0-8.3 [facility] RBC (Bld) [#/Vol] 4.15 10*6/uL Low 4.20-5.50 [facility] RBC morphology finding Nom (Bld) [facility] Segmented neutrophils/100 WBC (Bld) 86 % High 42-80 [facility] Sodium [Moles/Vol] 141 mmol/L 136-145 [facility] Urea nitrogen [Mass/Vol] 9.0 mg/dL 7-18 [facility] WBC (Bld) [#/Vol] 14.5 10*3/uL High 4.0-11.0 [facility] LymphoOrdered By: Babs narayan on 06-15-2023 Lymphocytes Auto (Unsp spec) [#/Vol] 9 % Low 16-48 [facility] Monocyte distribution width [Entitic volume] in Blood by AutomatedOrdered By: Babs Lou on 06-15-2023 Monocyte distribution width Auto (Bld) [Entitic vol] 16.15 0-20 [facility] Comment on above: For ED adult patient s suspected of sepsis, MDW<=20.0 does not rule out sepsis or risk of sepsis Monocytes (Bld) [#/Vol]Order ed By: Babs Lou on 06-15-2023 Monocytes/100 WBC (Bld) 5 % 3-9 [facility] Nitrite Test strip Ql (U)Ord ered By: Babs Lou on 06-15-2023 Nitrite Ql (U) Negative NEGATIVE [facility] No Panel InformationOrdered By: Babs Lou on 06-15-2023 Differential Total Cells Counted 100 #CELLS [facility] Immature Granulocytes None seen [facility] Platelet estimateOrdered By: Babs Lou on 06-15-2023 Platelets LM Ql (Bld) Normal [facility] RBC morphologyOrdered By: St maryellen Lou on 06-15-2023 RBC morphology finding Nom (Bld) Essentially normal [facility] Serum or plasma anion gapOrd ered By: Babs Lou on 06-15-2023 Anion gap [Moles/Vol] 13.1 mmol/L 01-24 [facility] Specific gravity Test strip (U) [Rel density]Ordered By: Babs Lou on 06-15-2023 Specific gravity (U) [Rel density] <= 1.005 1.003-1.035 [facility] URINALYSISon 06-15-2023 URINE BILIRUBIN - DIPSTICK Negative Normal NEGATIVE [facility] Comment on above: Order Comment: What Is Urine Source? Random Performed By: #### U A ####[address] [address] URINE GLUCOSE -DIPSTICK Negative Normal NEGATIVE [facility] Comment on above: Order Comment: What Is Urine Source? Random Performed By: #### U A ####[address] [address] URINE KETONE Negative Normal NEGATIVE [facility] Comment on above: Order Comment: What Is Urine Source? Random Performed By: #### U A ####[address] [place] [address] URINE LEUK ESTERASE Negative Normal NEGATIVE [facility] Comment on above: Order Comment: What Is Urine Source? Random Performed By: #### U A ####[address] [place] [address] URINE NITRITE - DIPSTICK Negative Normal NEGATIVE [facility] Comment on above: Order Comment: What Is Urine Source? Random Performed By: #### U A ####[address] [place] [address] URINE PROTEIN - DIPSTICK Negative Normal NEGATIVE [facility] Comment on above: Order Comment: What Is Urine Source? Random Performed By: #### U A ####[address] [place] [address] URINE SPEC GRAVITY, DIPSTICK <= 1.005 Normal 1.003-1.035 [facility] Comment on above: Order Comment: What Is Urine Source? Random Performed By: #### U A ####[address] [place] [address] URINE UROBILINOGEN - DIPSTICK 0.2 E.U./dL Normal <=1.0 [facility] Comment on above: Order Comment: What Is Urine Source? Random Performed By: #### U A ####[address] [place] [address] Urine appearance determinati onOrdered By: Babs Lou on 06-15-2023 Appearance (U) Clear Normal CLEAR [facility] Comment on above: Order Comment: What Is Urine Source? Random Performed By: #### U A ####[address] [place] [address] Urine blood detection by dip stickOrdered By: Babs Lou on 06-15-2023 Hemoglobin Ql (U) Negative Normal NEGATIVE [facility] Comment on above: Order Comment: What Is Urine Source? Random Performed By: #### U A ####[address] [place] [address] Urine colorOrdered By: Bigg Lou on 06-15-2023 Color (U) Lt. yellow Normal [facility] Comment on above: Order Comment: What Is Urine Source? Random Performed By: #### U A ####[address] [place] [address] Urine ketones detectionOrder ed By: Babs Lou on 06-15-2023 Ketones Ql (U) Negative NEGATIVE [facility] Urine leukocyte esterase det ection by dipstickOrdered By: Babs Lou on 06-15-2023 Leukocyte esterase Test strip Ql (U) Negative NEGATIVE [facility] Emergency Department Summary on 05-30-2023 Emergency Department Summary [facility] Medical Records Department [address] [place] [address] Emergency Department Summary 05/30/23 MR#: [id number] Acct: [id number] Name: DB DOAN Rep #: [id number] : 1970 53 From: Addy Faith MD PCP: Care Physician,No Primary Status:REG ER Location: ED HPI History of Present Illness Chief Complaint: Back Detail of Chief Complaint: Back pain that she localized to the sacrum area status post fall Informant: patient Onset/Context/Timing Onset: Days Context: Sudden Onset Injury: direct trauma Timing: Continuous Quality: Sharp Location: - (Sacrum) Current Severity: Mild Maximum Severity: Moderate Worsened by: improves with Movement and - (And sitting) Relieved by: Nothing Associated Symptoms Associated Symptoms: Negative for Numbness, Tingling, Radiation to Right Leg, Radiation to Left Leg, Fever, Abdominal Pain, Dysuria, Unable to Ambulate, Unable to Transfer, Urinary Retention, Urinary Incontinence, Constipation or Fecal Incontinence Narrative Narrative: Patient is a 53-year-old woman with history of ankylosing spondylisis, fracture coccyx who fell 5 days ago. She slipped. She landed on her buttocks. She localizes pain to the sacral region. She denies perianal discomfort or buttocks pain. She denies bowel or bladder dysfunction. Denies saddle paresthesia or anesthesia. She does have a history of herniated disc with foot drop. This improved with conservative therapy. She denies fever, chills night sweats. She states her son drove her to the hospital. She is a smoker. She recent saw pulmonology. She is scheduled for outpatient pulmonary testing. Prior similar symptoms: Yes Recent Illness/Hospitalization : Yes PFSH PFSH Home Medications naproxen 500 mg tablet 500 mg PO BID #14 tabs 05/30/23 [Rx Last Taken Unknown] Allergy/AdvReac Type Severity Reaction Status Date / Time No Known Allergies Allergy Verified 05/30/23 15:48 Social History (Updated 05/30/23 @ 16:[address] Addy Faith MD) household members: children Smoking Status: Current every day smoker tobacco type: cigarettes alcohol intake: current substance use type: does not use ROS ROS ED Constitutional Constitutional ED: Denies chills, fever(s), subjective or sweats Gastrointestinal Gastrointestinal: Denies abdominal pain, nausea or vomiting Genitourinary Genitourinary ED: Denies dysuria, hematuria or urinary frequency Musculoskeletal Musculoskeletal: Reports back pain; Denies arthralgias, myalgias or neck pain Integumentary Denies rash Neurologic Neurologic: Denies headache(s), paresthesias or weakness Hematologic/Lymphatic Hematologic/Lymphatic: Denies easy bleeding or easy bruising EXAM Physical Exam Const Vital Signs: 05/30/23 15:49 Temperature 97.6 F L Temperature Source Temporal Pulse Rate 99 Respiratory Rate 16 Blood Pressure 133/89 H Blood Pressure Mean 103 Pulse Ox 99 Oxygen Delivery Method Room Air Positive well nourished and well developed Constitutional Narrative: While patient was told me what happened she began to cry. She became hysterical then. General Appearance ED: well developed and NAD; Negative for pallor HEENT Reports moist mucous membranes Negative for trauma or tenderness Eyes PERRL and EOMs intact bilaterally General Eye ED: Negative for pale conjunctiva or scleral icterus Neck No no lymphadenopathy, No supple and No no JVD Neck Narrative: There is no posterior midline cervical pain. Resp normal respiratory effort and clear to auscultation bilaterally Cardio regular rate, regular rhythm, S1 normal heart sound, S2 normal heart sound and no murmurs GI normal to inspection, nondistended, normoactive bowel sounds, soft to palpation, non-tender, non- distended and no masses Back/Spine normal to inspection Back/Spine Narrative: There is no pain ovation over the the thoracic spine. There is pain ovation at the area of the L5- S1 junction and sacrum. There is no pain the patient over the left or right ischial tuberosity. There is no pain ovation over the pubic symphysis. Sensation L3-S1 is normal on the right. Sensation over S1 dermatome is abnormal. Patient states is chronic. EHL may be slightly diminished on the left compared to the right. Gait was observed. There is no foot drop. Able to walk on heels and toes. Cervical Spine: Negative for cervical spine tenderness Thoracic Spine / Upper Back: paraspinal muscle tenderness Lumbar Spine / Lower Back: straight leg raise negative bilaterally; Negative for ROM limited Extremity normal to inspection and no clubbing, cyanosis or edema General Extremety ED: Negative for edema or tenderness General Extremity: Negative for edema Neuro oriented x3 and no sensory deficits noted Sensorium / Orientation: alert Deep Tendon Reflexe (more content not included)... Normal [facility] Lumbar Spine 2 or 3 Viewson 05-30-2023 Lumbar Spine [address] [facility] Imaging Services [address] [place] [address] Lumbar Spine 2 or 3 Views MR#: [id number] Acct: [id number] Name: DB DOAN Rep #: [id number] : 1970 F 53 From: Paul Rocha DO PCP: Care Physician,No Primary Status: REG ER Study: Lumbar Spine 2 or 3 Views Date of Exam: Exam# [id number] Ordering Dr: [place] [id number] STUDY: X-RAY - LUMBAR SPINE REASON FOR EXAM: Female, 53 years old. Injury/Pain -- History of ankylosing spondylisis TECHNIQUE: 3 view(s) of the lumbar spine were obtained. COMPARISON: None FINDINGS: Normal lumbar lordosis. There is no substantial scoliosis. There is a normal alignment of the vertebrae. Normal vertebral bodies with minimal spurring at the endplates. Normal disc space heights. The soft tissue structures are unremarkable. RAD/Lumbar Spine 2 or 3 Views IMPRESSION: Minimal degenerative changes of the lumbar spine. Electronically Signed: Paul Rocha DO at 17:05 EDT , CC: Dr. Addy Faith MD; No Primary Care Physician Jalousies Installer: Signed Normal [facility] Appearance UrOrdered By: Richard Murphy on 05-17-2023 Appearance (U) SLIGHTLY-CLOUDY CLEAR [facility] Bacteria UrnS Ql MicroOrdere d By: Kendra Murphy on 05-17-2023 Bacteria LM Ql (Urine sed) TR NEG [facility] Bile Ac Ur QlOrdered By: Richard Murphy on 05-17-2023 Bile acid Ql (U) Negative NEG [facility] Color UrOrdered By: Kendra juarez on 05-17-2023 Color (U) YELLOW YELLOW [facility] Glucose Ur Ql Strip.autoOrde red By: Kendra Murphy on 05-17-2023 Glucose Auto test strip Ql (U) Negative NEG [facility] HCG Ur QlOrdered By: Kendra rascon on 05-17-2023 HCG ( test) Ql (U) Negative NEG [facility] Hgb Ur Ql Strip.autoOrdered By: Kendra Murphy on 05-17-2023 Hemoglobin Auto test strip Ql (U) Negative NEG [facility] Ketones Ur Ql Strip.autoOrde red By: Kendra Murphy on 05-17-2023 Ketones Auto test strip Ql (U) Negative NEG [facility] Nitrite Ur Ql Strip.autoOrde red By: Kendra Murphy on 05-17-2023 Nitrite Auto test strip Ql (U) Negative NEG [facility] No Panel InformationOrdered By: Kendra Murphy on 05-17-2023 Urine Ascorbic Acid Level Negative NEG [facility] Prot Ur Ql Strip.autoOrdered By: Kendra Murphy on 05-17-2023 Protein Auto test strip Ql (U) Negative NEG [facility] RBC #/area UrnS HPFOrdered B y: Kendra Murphy on 05-17-2023 RBC LM.HPF (Urine sed) [#/Area] 0-2 NEG [facility] Specific gravity Auto test s trip (U) [Rel density]Ordered By: Kendra Murphy on 05-17-2023 Specific gravity (U) [Rel density] 1.003 1.002-1.030 [facility] Squamous #/area UrnS HPFOrde red By: Kendra Murphy on 05-17-2023 Epithelial cells.squamous LM.HPF (Urine sed) [#/Area] 6-10 NEG [facility] Urobilinogen Test strip Ql ( U)Ordered By: Kendra Murphy on 05-17-2023 Urobilinogen Ql (U) Negative <2.0 [facility] WBC #/area UrnS HPFOrdered B y: Kendra Murphy on 05-17-2023 WBC LM.HPF (Urine sed) [#/Area] 6-10 NEG [facility] WBC Ur Ql AutoOrdered By: Nimisha Murphy on 05-17-2023 WBC Auto Ql (U) TR NEG [facility] pH Auto test strip (U)Ordere d By: Kendra Murphy on 05-17-2023 pH (U) 7.0 [pH] 4.6-8.0 [facility] XR SPINE LUMBOSACRAL MINIMUM 4 VIEWSon 05-16-2023 XR SPINE LUMBOSACRAL MINIMUM 4 VIEWS ORIGINAL EXAMINATION: 4 XRAY VIEWS OF THE LUMBAR SPINE 05/16/2023 5:40 am COMPARISON: CT lumbar spine on 05/06/2023. Lumbar spine x-ray on 03/04/2023 HISTORY: ORDERING SYSTEM PROVIDED HISTORY: Reason for Exam: pain FINDINGS: There are 5 lumbar vertebrae. The lumbar spine alignment is normal. Vertebral bodies are normal in shape with no fracture. The intervertebral disc spaces are maintained. Facet joints and posterior elements show no sign of abnormality. Sacroiliac joints are normal. IMPRESSION: Normal lumbar spine. Interpreted by: Krzysztof Mehta MD Preliminary Report By: Krzysztof Mehta MD Electronically signed By Krzysztof Mehta MD Dictated Date: 05/16/2023 5:44:18 AM Prelim Date: 05/16/2023 5:46:11 AM Sign Date: 05/16/2023 5:46:11 AM Ordering Provider: YAMILET Briceno Replaced By [facility] ([place] Lumbar spine WO contrasto n 05-06-2023 1. No acute osseous abnormality. 2. No central canal stenosis or obvious neural foraminal narrowing. [facility] EXAMINATION: CT OF THE LUMBAR SPINE WITHOUT CONTRAST 05/06/2023 TECHNIQUE: CT of the lumbar spine was performed without the administration of intravenous contrast. Multiplanar reformatted images are provided for review. Adjustment of mA and/or kV according to patient size was utilized. Automated exposure control, iterative reconstruction, and/or weight based adjustment of the mA/kV was utilized to reduce the radiation dose to as low as reasonably achievable. COMPARISON: 12/02/2022 HISTORY: ORDERING SYSTEM PROVIDED HISTORY: low back pain TECHNOLOGIST PROVIDED HISTORY: Reason for exam:->low back pain Decision Support Exception - unselect if not a suspected or confirmed emergency medical condition->Emergency Medical Condition (MA) FINDINGS: No fracture or malalignment. No lytic or blastic bone lesion. No central canal stenosis or significant neural foraminal narrowing. No evidence of prevertebral soft tissue edema. [facility] Ismael Sherwood DO - 05/06/2023 EXAMINATION: CT OF THE LUMBAR SPINE WITHOUT CONTRAST 05/06/2023 TECHNIQUE: CT of the lumbar spine was performed without the administration of intravenous contrast. Multiplanar reformatted images are provided for review. Adjustment of mA and/or kV according to patient size was utilized. Automated exposure control, iterative reconstruction, and/or weight based adjustment of the mA/kV was utilized to reduce the radiation dose to as low as reasonably achievable. COMPARISON: 12/02/2022 HISTORY: ORDERING SYSTEM PROVIDED HISTORY: low back pain TECHNOLOGIST PROVIDED HISTORY: Reason for exam:->low back pain Decision Support Exception - unselect if not a suspected or confirmed emergency medical condition->Emergency Medical Condition (MA) FINDINGS: No fracture or malalignment. No lytic or blastic bone lesion. No central canal stenosis or significant neural foraminal narrowing. No evidence of prevertebral soft tissue edema. IMPRESSION: 1. No acute osseous abnormality. 2. No central canal stenosis or obvious neural foraminal narrowing. [facility] Radiology Study observation (narrative) [facility] CT Lumbar spine WO contrastO rdered By: Ismael Hurst on 05-06-2023 [facility] Work Phone: CT Lumbar wo contraston 04-05 CT Lumbar wo contrast CT LUMBAR SPINE : CLINICAL INDICATION: Trauma TECHNIQUE: Transaxial sequence through the lumbar spine. Multiplanar reconstruction imaging was performed. Dose reduction was employed with automated exposure control. COMPARISON: None FINDINGS: Lumbar vertebrae and joints: No fracture, subluxation or other malalignment. Minimal facet arthropathy is seen spanning L4-S1.. No bone lesion identified. Intervertebral disc spaces and spinal canal: No intervertebral disc space narrowing identified. No bony encroachment upon the lumbar spinal canal. Soft tissues: Paraspinal soft tissues are unremarkable on this noncontrast study. Other: None IMPRESSION: No acute fracture or dislocation identified. Report Dictated on Authenticated by: Itz Garcia On: 05/02/2023 08:44 Read by: ITZ GARCIA MD, Date: 05/02/2023 08:44 [facility] BMPon 04-25-2023 Anion gap [Moles/Vol] 10 mmol/L 7 - 16 mmol/L [facility] Calcium [Mass/Vol] 9.5 mg/dL 8.6 - 10. 2 mg/dL [facility] Chloride [Moles/Vol] 104 mmol/L 98 - 10 7 mmol/L [facility] CO2 [Moles/Vol] 28 mmol/L 22 - 29 mmol/L [facility] Creatinine [Mass/Vol] 0.7 mg/dL 0.50 - 1.00 mg/dL [facility] GFR/1.73 sq M.predicted MDRD (S/P/Bld) [Vol rate/Area] - PINF [facility] Comment on above: These results are not intended for use in patients <18 years of age. eGFR results are calculated without a race factor using the 2020 CKD-EPI equation. Careful clinical correlation is recommended, particularly when comparing to results calculated using previous equations. The CKD-EPI equation is less accurate in patients with extremes of muscle mass, extra-renal metabolism of creatine, excessive creatine ingestion, or following therapy that affects renal tubular secretion. Glucose [Mass/Vol] 97 mg/dL 74 - 99 mg/dL [facility] Potassium [Moles/Vol] 4.1 mmol/L 3.5 - 5.0 mmol/L [facility] Sodium [Moles/Vol] 142 mmol/L 132 - 146 mmol/L [facility] Urea nitrogen [Mass/Vol] 8 mg/dL 6 - 20 mg/dL [facility] CoursePeer CBC with Auto Differentialon 04-25-2023 Basophils (Bld) [#/Vol] 0.02 10*3/uL [facility] Basophils/100 WBC (Bld) 1 % 0.0 - 2.0 % [facility] Eosinophils (Bld) [#/Vol] 0.05 10*3/uL [facility] Eosinophils/100 WBC (Bld) 1 % 0 - 6 % [facility] Erythrocyte distribution width (RBC) [Ratio] 11.9 % 11.5 - 15.0 % [facility] Hematocrit (Bld) [Volume fraction] 37.9 % 34.0 - 48.0 % [facility] Hemoglobin (Bld) [Mass/Vol] 13.6 g/dL 11.5 - 15.5 g/dL [facility] Immature granulocytes (Bld) [#/Vol] [facility] Immature granulocytes/100 WBC (Bld) 0 % 0.0 - 5.0 % [facility] Interpretation and review of laboratory results Abnormal [facility] Lymphocytes/100 WBC (Bld) 40 % 20.0 - 42.0 % [facility] Lymphocytes/100 WBC (Bld) 1.67 % [facility] MCH (RBC) [Entitic mass] 32.4 pg 26.0 - 35.0 pg [facility] MCHC (RBC) [Mass/Vol] 35.9 g/dL High 32.0 - 34.5 g/dL [facility] MCV (RBC) [Entitic vol] 90.2 fL 80.0 - 99.9 fL [facility] Monocytes/100 WBC (Bld) 10 % 2.0 - 12.0 % [facility] Monocytes/100 WBC (Bld) 0.42 % [facility] Neutrophils/100 WBC (Bld) 48 % 43.0 - 80.0 % [facility] Platelet mean volume (Bld) [Entitic vol] 7.8 fL 7.0 - 12.0 fL [facility] Platelets (Bld) [#/Vol] 319 10*3/uL [facility] RBC (Bld) [#/Vol] 4.20 10*6/uL 3.50 - 5.5 0 m/uL [facility] Segmented neutrophils/100 WBC (Bld) 2.01 % [facility] WBC other (Bld) [#/Vol] 4.2 Low [facility] Magnesiumon 04-25-2023 Magnesium [Mass/Vol] 2.1 mg/dL 1.6 - 2 .6 mg/dL [facility] No Panel Informationon 04-25 [facility] Portable XR Chest AP single viewon 04-25-2023 No acute process. [facility] EXAMINATION: ONE XRAY VIEW OF THE CHEST 04/25/2023 12:01 pm COMPARISON: None. HISTORY: ORDERING SYSTEM PROVIDED HISTORY: cp TECHNOLOGIST PROVIDED HISTORY: Reason for exam:->cp FINDINGS: The lungs are without acute focal process. There is no effusion or pneumothorax. The cardiomediastinal silhouette is without acute process. The osseous structures are without acute process. [facility] Tapan Tyler MD - 04/25/2023 EXAMINATION: ONE XRAY VIEW OF THE CHEST 04/25/2023 12:01 pm COMPARISON: None. HISTORY: ORDERING SYSTEM PROVIDED HISTORY: cp TECHNOLOGIST PROVIDED HISTORY: Reason for exam:->cp FINDINGS: The lungs are without acute focal process. There is no effusion or pneumothorax. The cardiomediastinal silhouette is without acute process. The osseous structures are without acute process. IMPRESSION: No acute process. [facility] Radiology Study observation (narrative) [facility] Portable XR Chest AP single viewOrdered By: Tapan Tyler on 04-25-2023 [facility] Work Phone: [employer]-INRon 04-25-2023 INR Coag (PPP) [Relative time] 1.1 {INR} [facility] Comment on above: Therapeutic Range: Moderate Anticoagulant Intensity: INR = 2.0-3.0 High Anticoagulant Intensity: INR = 2.5-3.5 PT Coag (PPP) [Time] 11.8 s [facility] Troponinon 04-25-2023 Troponin I.cardiac High sensitivity method [Mass/Vol] ng/L 0 - 9 ng/L [facility] Comment on above: High Sensitivity Troponin values cannot be compared with other Troponin methodologies. Patients with high levels of Biotin oral intake (i.e >5mg/day) may have falsely decreased Troponin levels. Samples collected within 8 hours of biotin intake may require additional information for diagnosis. [facility] ED Provider Notesigor 04-08-19 Staff Accountant Authentication Interface Message Text EMERGENCY DEPARTMENT - VISIT NOTE ------- HISTORY OF PRESENT ILLNESS --- Chief Complaint Patient presents with Fall Source Inspector: not needed - patient preferred language is Malaysian. The history is provided by the Patient. Db Doan is a 52 year old female with hx of L shoulder pain, ankylosing spondylitis presenting to the ED for multiple falls. Patient endorses she feels unstable with her gait at baseline and she slipped and fell down 4 steps at her home. She denies headstrike, LOC, thinners. She endorses she fell on her L shoulder and now her shoulder pain feels worse from her baseline. She denies lightheadedness, palpitations, SOB, abdominal pain. PAST HISTORY Pertinent Past History: No past medical history on file. There is no problem list on file for this patient. Pertinent Social History: None PHYSICAL EXAM BP 132/78 Pulse 94 Temp 97.9 ???F (36.6 ???C) (Oral) Resp 18 SpO2 100% Triage note and vital signs reviewed General: Well-appearing, CARTER and non-toxic appearing HEENT: Normocephalic, atraumatic; EOM intact, PERRL, no scleral icterus; no epistaxis, rhinorrhea, or congestion; neck is supple Mouth: MMM Cardiovascular: RRR, no mumurs, rubs or gallops Respiratory: No respiratory distress, CTAB without wheezes, rales or ronchi Abdomen: Soft, non-distended, nontender to palpation, grossly atraumatic MSK: Full ROM, able to ambulate, L shoulder tenderness. Otherwise grossly atraumatic, nonttp in RUE and BLE. No midline C/T/L spine tenderness Skin: No rashes, capillary refill <2 seconds Neuro: A AND Ox3, patellar reflexes intact, normal gait, neurosensory intact in BUE and BLE, no facial droop, dysarthria MEDICAL DECISION MAKING and ED COURSE Shared medical decision making was used to determine final disposition and follow up if necessary Secondary diagnoses reviewed/addressed: elevated blood pressure and patient was advised to follow up with their pcp and monitor for signs or symptoms of hypertensive emergency. ED prescription medication management per below Personal interpretation of XR per ED course below Evaluated by EM attending Santa Pelayo Course: ED Course as of 04/08/23 0957 Mon Apr 08, 2023 0852 X-ray L-Spine AP+Lateral (supine) Personally reviewed and interpreted without concerns for dislocation or fracture [SIMONA] 0854 X-ray T-Spine AP and Lateral (Routine) Personally reviewed and interpreted without concerns for dislocation or fracture [SIMONA] 0854 X-ray L-Spine AP+Lateral (supine) Personally reviewed and interpreted without concerns for dislocation or fracture [ISMONA] ED Course User Index [SIMONA] Shruthi Richards MD XR L-SPINE AP+LATERAL 2-3 VIEWS Result Date: 04/08/2023 Narrative: EXAMINATION: XR L-SPINE AP+LATERAL 2-3 VIEWS 04/08/2023 08:50 AM CLINICAL HISTORY: Fall, pain, ankylosing spondylitis ASSOCIATED DIAGNOSIS: ORDERING PROVIDER: SHRUTHI RICHARDS TECHNOLOGISTS NOTE: COMPARISON: None FINDINGS: Heights of the lumbar vertebral bodies are maintained. No acute fracture or aggressive osseous lesion. There is no significant listhesis. There are mild to moderate multilevel degenerative changes most pronounced at L4-5 and L5-S1. Slight dextroconvex curvature of the lumbar spine. IMPRESSION: No radiographic evidence of compression deformity or significant listhesis in the lumbar spine. Multilevel degenerative changes in the lumbar spine most pronounced at L4-5 and L5-S1. MACRO: None XR T-SPINE 2 VIEWS Result Date: 04/08/2023 Narrative: EXAMINATION: XR T-SPINE 2 VIEWS 04/08/2023 08:39 AM CLINICAL HISTORY: Fall, pain ASSOCIATED DIAGNOSIS: ORDERING PROVIDER: SHRUTHI RICHARDS TECHNIBIS NOTE: COMPARISON: None FINDINGS: Evaluation of the upper thoracic spine is limited on the lateral images because of the shoulders. There is age indeterminate mild compression deformity of a midthoracic vertebral body (likely T6) with approximately 20% height loss. The included ribs are grossly intact. Mild levoconvex curvature of the thoracic spine. IMPRESSION: Age indeterminate, mild compression deformity of a midthoracic vertebral body (likely T6). MACRO: None XR SHOULDER LEFT MINIMUM 2 VIEWS Result Date: 04/08/2023 Narrative: EXAMINATION: XR SHOULDER LEFT MINIMUM 2 VIEWSPRO/LT 04/08/2023 08:28 AM CLINICAL HISTORY: Shoulder pain, left ASSOCIATED DIAGNOSIS: Shoulder pain, left ORDERING PROVIDER: SHRUTHI RICHARDS TECHNIBIS NOTE: COMPARISON: None IMPRESSION: No left shoulder fracture or glenohumeral dislocation is identified. Mild degenerative changes are present at the acromioclavicular joint. Findings of calcific tendinopathy of the supraspinatus tendon near its insertion on the greater tuberosity. Left te (more content not included)... Normal [facility] Progress Noteson 04-08-2023 Staff Accountant Authentication Interface Message Text Fell down 4 stairs, shoulder and tail bone hurts. Denies LOC. Normal [facility] XR L-SPINE AP+LATERAL 2-3 EWSon 04-08-2023 XR L-SPINE AP+LATERAL 2-3 VIEWS EXAMINATION: XR L-SPINE AP+LATERAL 2-3 VIEWS 04/08/2023 08:50 AM CLINICAL HISTORY: Fall, pain, ankylosing spondylitis ASSOCIATED DIAGNOSIS: ORDERING PROVIDER: SHRUTHI RICHARDS TECHNIBIS NOTE: COMPARISON: None FINDINGS: Heights of the lumbar vertebral bodies are maintained. No acute fracture or aggressive osseous lesion. There is no significant listhesis. There are mild to moderate multilevel degenerative changes most pronounced at L4-5 and L5-S1. Slight dextroconvex curvature of the lumbar spine. IMPRESSION: No radiographic evidence of compression deformity or significant listhesis in the lumbar spine. Multilevel degenerative changes in the lumbar spine most pronounced at L4-5 and L5-S1. MACRO: None Normal [facility] XR SHOULDER LEFT MINIMUM 2 V IEWSon 04-08-2023 XR SHOULDER LEFT MINIMUM 2 VIEWS EXAMINATION: XR SHOULDER LEFT MINIMUM 2 VIEWSPRO/LT 04/08/2023 08:28 AM CLINICAL HISTORY: Shoulder pain, left ASSOCIATED DIAGNOSIS: Shoulder pain, left ORDERING PROVIDER: SHRUTHI RICHARDS TECHNOLOGISTS NOTE: COMPARISON: None IMPRESSION: No left shoulder fracture or glenohumeral dislocation is identified. Mild degenerative changes are present at the acromioclavicular joint. Findings of calcific tendinopathy of the supraspinatus tendon near its insertion on the greater tuberosity. Left shoulder MACRO: None Normal [facility] XR T-SPINE 2 VIEWSon 024 XR T-SPINE 2 VIEWS EXAMINATION: XR T-SP INE 2 VIEWS 04/08/2023 08:39 AM CLINICAL HISTORY: Fall, pain ASSOCIATED DIAGNOSIS: ORDERING PROVIDER: SHRUTHI RICHARDS TECHNOLOGISTS NOTE: COMPARISON: None FINDINGS: Evaluation of the upper thoracic spine is limited on the lateral images because of the shoulders. There is age indeterminate mild compression deformity of a midthoracic vertebral body (likely T6) with approximately 20% height loss. The included ribs are grossly intact. Mild levoconvex curvature of the thoracic spine. IMPRESSION: Age indeterminate, mild compression deformity of a midthoracic vertebral body (likely T6). MACRO: None Normal [facility] ALLIED HEALTHon 03-09-2023 [facility] HNO ID: [id number] Author: LEISA LANGLEY RT(R) Service: ? Author Type: Technologist Type: Allied Health Filed: 03/09/2023 12:43 Note Text: Radiology Service Progress Note PATIENT NAME: Db Doan DATE OF SERVICE: March 09, 2023 TIME: 12:43 PM PATIENT IDENTITY VERIFICATION COMPLETED USING TWO (2) IDENTIFIERS: Name and Date of confirmed by patient verbally. FALL SCREENING: Has the patient had 2 falls in the last year or 1 fall with injury or currently using an Ambulatory Assistive Device (Walker, Cane, Wheelchair, Crutches, etc.)? No PATIENT GENDER DATA: Female. status: : No status: NO. PATIENT RELEVANT IMPLANT DATA REVIEWED: Not Applicable RADIOLOGY DEPARTMENT: General X-ray: Exam(s) Completed: Upper Extremity X-Ray(s): Shoulder, Y VIEW left AP/GRASHEY / Y VIEWS PERIPHERAL IV DATA: Not applicable SIGNED BY: RT Oskar(R) March 09, 2023 12:43 PM Normal [facility] ED NOTEon 03-09-2023 ED NOTE HNO ID: [id number] Author: LUIS HOWARD, NIK Service: ? Author Type: Registered Nurse Type: ED Notes Filed: 03/09/2023 11:49 Note Text: Left shoulder pain after lifting yesterday. History of torn rotator cuff. Normal [facility] ED PROV NOTEon 03-09-2023 ED PROV NOTE HNO ID: [id number] Author: ELIF THOMAS DO Service: Emergency Medicine Author Type: Nurse Practitioner Type: ED Provider Notes Filed: 03/10/2023 08:23 Note Text: Attestation signed by Elif Thomas DO at 03/10/2023 8:23 AM Patient was seen and evaluated by midlevel provider only, after chart review I agree with the assessment and treatment plan Signature: Elif Thomas DO Date: 03/10/2023 Time: 8:23 AM ED Provider Note Patient Name: Db Dona : 1970 SERVICE DATE: 03/09/23 History Patient presents with: Shoulder Injury: left This is a 52-year-old female that presents to emergency department with left shoulder pain after lifting items over head developing intense pain in left shoulder. She reports history of left tear and rotator cuff and was being managed by orthopedic Dr. Leidy Davis in [place]. Rates pain 8/10 sudden onset worse with movement. Right hand dominant. History provided by: Patient History limited by: n/a. 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 No pertinent surgical history. FAMILY HISTORY Problem Relation Age of Onset Coronary Artery Disease Father Social History Tobacco Use Smoking status: Never Smokeless tobacco: Not on file Substance and Sexual Activity Alcohol use: Never Drug use: Never Sexual activity: Not on file ALLERGIES No Known Allergies Review of Systems Constitutional: Negative. HENT: Negative. Eyes: Negative. Respiratory: Negative. Cardiovascular: Negative. Gastrointestinal: Negative. Genitourinary: Negative. Musculoskeletal: Left shoulder pain Skin: Negative. Neurological: Negative. Psychiatric/Behavioral: Negative. Physical Exam Vitals [03/09/23 1146] BP Pulse Temp Temp src Resp SpO2 Weight Height 156/88 88 36.2 ?C (97.1 ?F) Temporal 16 99 % 61.2 kg (135 lb) 1.702 m (5' 7) Physical Exam Vitals and nursing note reviewed. Constitutional: General: She is not in acute distress. Appearance: She is well-developed. She is not ill-appearing. HENT: Head: Normocephalic and atraumatic. Right Ear: External ear normal. Left Ear: External ear normal. Nose: Nose normal. Eyes: Conjunctiva/sclera: Conjunctivae normal. Pupils: Pupils are equal, round, and reactive to light. Cardiovascular: Rate and Rhythm: Normal rate and regular rhythm. Heart sounds: Normal heart sounds. Pulmonary: Effort: Pulmonary effort is normal. Breath sounds: Normal breath sounds. Abdominal: General: Bowel sounds are normal. Palpations: Abdomen is soft. Musculoskeletal: General: Normal range of motion. Left shoulder: Tenderness present. No swelling, deformity, effusion, laceration, bony tenderness or crepitus. Normal range of motion. Normal strength. Normal pulse. Cervical back: Normal range of motion and neck supple. Skin: General: Skin is warm and dry. Neurological: Mental Status: She is alert and oriented to person, place, and time. Diagnostic Testing ED Labs Ordered and Reviewed - No data to display Procedures ED Course / Clinical Impression Clinical Impressions as of 03/09/23 1547 Left shoulder strain, initial encounter Fall, initial encounter MDM / Disposition / Plan MEDICAL DECISION MAKING Number and Complexity of Problems Differential Diagnosis: strain, contusion, dislocation MDM data External documents reviewed: old records reviewed My EKG interpretation: n/a My CT interpretation: n/a My X-ray interpretation: negative My Ultrasound interpretation: n/a Decision rules/scores evaluated: n/a Discussed with: n/a Treatment and Disposition ED course: This is a 52-year-old female that presents to emergency department with left shoulder pain after lifting items over head developing intense pain in left shoulder. She reports history of left tear and rotator cuff and was being managed by orthopedic Dr. Leidy Davis in [place]. Rates pain 8/10 sudden onset worse with movement. Right hand dominant. Imaging obtained and demonstrates no acute findings. Patient will be discharged to home advised follow-up for PCP in 1 to 2 days and/or if worsening symptoms return to emergency department. Patient verbalized understanding. Shared decision making: POC discussed with patient (more content not included)... Normal [facility] XR SHLDR >/=3V AP/DAMARI AP/OTH R LTon 03-09-2023 XR SHLDR >/=3V AP/DAMARI AP/OTHR LT * * *Final Report* * * DATE OF EXAM: Mar 09 2023 12:41PM ASX 5252 - XR SHLDR >/=3V AP/DAMARI AP/OTHR LT / PROCEDURE REASON: Other * * * * Physician Interpretation * * * * XR SHLDR >/=3V AP/DAMARI AP/OTHR LT INDICATION: Other / 52 years Female RESULT: No acute fracture identified. No lytic or blastic lesions. Calcific density projects lateral to the humeral head which could represent calcific tendinitis/bursitis IMPRESSION: No acute fracture/ Possible calcific tendinitis/bursitis Jalousies Installer: MARSHALL Transcribe Date/Time: Mar 09 2023 12:46P Dictated by : ERICA MARIE MD This examination was interpreted and the report reviewed and electronically signed by: ERICA MARIE MD on Mar 09 2023 12:47PM EST [id number] Normal [facility] ALT (SGPT) ser/plasOrdered B y: Kathia Gallego on 03-07-2023 ALT [Catalytic activity/Vol] 16 U/L 7-52 [facility] Absolute lymphocyte countOrd ered By: Kathia Gallego on 03-07-2023 Lymphocytes Auto (Unsp spec) [#/Vol] 2.9 10*3/uL 1.10-4.80 [facility] Albumin [Mass/volume] in Ser um or PlasmaOrdered By: Kathia Gallego on 03-07-2023 Albumin [Mass/Vol] 4.4 g/dL 3.5-5.0 [facility] Albumin/Globulin [Mass Ratio ] in Serum or PlasmaOrdered By: Kathia Gallego on 03-07-2023 Albumin/Globulin [Mass ratio] 2.8 {ratio} 1.1-2.2 [facility] Alkaline phosphatase [Enzyma tic activity/volume] in Serum or PlasmaOrdered By: Kathia Gallego on 03-07-2023 ALP [Catalytic activity/Vol] 42 U/L 42-121 [facility] Appearance urOrdered By: Angle Gallego on 03-07-2023 Appearance (U) Clear [facility] Aspartate aminotransferase [ Enzymatic activity/volume] in Serum or PlasmaOrdered By: Kathia Gallego on 03-07-2023 AST [Catalytic activity/Vol] 15 U/L 10-41 [facility] Basophils Auto (Bld) [#/Vol] Ordered By: Kathia Gallego on 03-07-2023 Basophils (Bld) [#/Vol] 6.3 10*3/uL 4.5-11.0 [facility] Basophils (Bld) [#/Vol] 0.0 10*3/uL 0.00-0.20 [facility] Basophils/100 WBC Auto (Bld) Ordered By: Kathia Gallego on 03-07-2023 Basophils/100 WBC (Bld) 0.5 % 0.0-1.5 [facility] Bilirubin.total [Mass/volume ] in Serum or PlasmaOrdered By: Kathia Gallego on 03-07-2023 Bilirubin [Mass/Vol] 0.4 mg/dL 0.3-1.5 [facility] Carbon dioxide, total [Moles /volume] in Serum or PlasmaOrdered By: Kathia Gallego on 03-07-2023 CO2 [Moles/Vol] 27 mmol/L 21-31 [facility] Chloride [Moles/volume] in S yeimy or PlasmaOrdered By: Kathia Gallego on 03-07-2023 Chloride [Moles/Vol] 105 mmol/L 98-107 [facility] Creatinine and Glomerular fi ltration rate.predicted panel (S/P/Bld)Ordered By: Kathia Gallego on 03-07-2023 GFR/1.73 sq M.predicted MDRD (S/P/Bld) [Vol rate/Area] 123 mL/min/{1.73_m2} >60 [facility] Detection in urine of either or both bilirubin and urobilinogenOrdered By: Kathia Gallego on 03-07-2023 Bilirubin+Urobilinoge n Ql (U) Negative Negative [facility] Eosinophils Auto (Bld) [#/Vo l]Ordered By: Kathia Gallego on 03-07-2023 Eosinophils (Bld) [#/Vol] 0.1 10*3/uL 0.00-0.33 [facility] Eosinophils/100 WBC Auto (Bl d)Ordered By: Kathia Gallego on 03-07-2023 Eosinophils/100 WBC (Bld) 1.9 % 0.0-3.0 [facility] Erythrocyte distribution wid th Auto (RBC) [Ratio]Ordered By: Kathia Gallego on 03-07-2023 Erythrocyte distribution width (RBC) [Ratio] 12.7 % 10.9-14.3 [facility] Estimated glomerular filtrat ion rate (GFR) non- AmericanOrdered By: Kathia Gallego on 03-07-2023 GFR/1.73 sq M.predicted among non-blacks MDRD (S/P/Bld) [Vol rate/Area] 102 mL/min/{1.73_m2} >60 [facility] Fibrin D-dimer FEU measureme nt in platelet poor plasma (mass/volume)Ordered By: Kathia Gallego on 03-07-2023 Fibrin D-dimer FEU (PPP) [Mass/Vol] 478 ng/mLFEU 0-499 [facility] Comment on above: Patient D-Dimer resu lt is negative. The Laboratory Department recommends utilization of this test only for its NEGATIVE PREDICTIVE VALUE. Negative predictive value is >95%. Specificity of positive result is <50%. Clinical correlation is essential. Glucose [Mass/volume] in Uri ne by Automated test stripOrdered By: Kathia Gallego on 03-07-2023 Glucose Auto test strip (U) [Mass/Vol] Negative Negative [facility] Hematocrit Auto (Bld) [Volum e fraction]Ordered By: Kathia Gallego on 03-07-2023 Hematocrit (Bld) [Volume fraction] 39.3 % 36.0-44.0 [facility] Hemoglobin [Mass/volume] in BloodOrdered By: Kathia Gallego on 03-07-2023 Hemoglobin (Bld) [Mass/Vol] 13.7 g/dL 12.0-15.0 [facility] Lymphocytes/100 WBC Auto (Bl d)Ordered By: Kathia Gallego on 03-07-2023 Lymphocytes/100 WBC (Bld) 46.9 % 24.0-44.0 [facility] MCH Auto (RBC) [Entitic mass ]Ordered By: Kathia Gallego on 03-07-2023 MCH (RBC) [Entitic mass] 32.8 pg 28.0-34.0 [facility] MCHC Auto (RBC) [Mass/Vol]Or dered By: Kathia Gallego on 03-07-2023 MCHC (RBC) [Mass/Vol] 35.0 g/dL 33.0-37.0 [facility] MCV (mean corpuscular volume ) determinationOrdered By: Kathia Gallego on 03-07-2023 MCV (RBC) [Entitic vol] 93.9 fL 80.0-100.0 [facility] Monocytes Auto (Bld) [#/Vol] Ordered By: Kathia Gallego on 03-07-2023 Monocytes (Bld) [#/Vol] 0.7 10*3/uL 0.20-0.70 [facility] Monocytes/100 WBC Auto (Bld) Ordered By: Kathia Gallego on 03-07-2023 Monocytes/100 WBC (Bld) 10.4 % 3.4-9.0 [facility] Neutrophils Auto (Bld) [#/Vo l]Ordered By: Kathia Gallego on 03-07-2023 Neutrophils (Bld) [#/Vol] 2.5 10*3/uL 1.83-8.70 [facility] Neutrophils/100 WBC Auto (Bl d)Ordered By: Kathia Gallego on 03-07-2023 Neutrophils/100 WBC (Bld) 40.3 % 40.0-74.0 [facility] No Panel InformationOrdered By: Kathia Gallego on 03-07-2023 Troponin I High Sensitivity < 2 pg/mL 0-15 [facility] Platelet mean volume Auto (B ld) [Entitic vol]Ordered By: Kathia Gallego on 03-07-2023 Platelet mean volume (Bld) [Entitic vol] 5.7 fL 7.4-10.4 [facility] Platelets Auto (Bld) [#/Vol] Ordered By: Kathia Gallego on 03-07-2023 Platelets (Bld) [#/Vol] 409 10*3/uL 150-450 [facility] Potassium [Moles/volume] in Serum or PlasmaOrdered By: Kathia Gallego on 03-07-2023 Potassium [Moles/Vol] 4.2 mmol/L 3.6-5.0 [facility] RBC Auto (Bld) [#/Vol]Ordere d By: Kathia Gallego on 03-07-2023 RBC (Bld) [#/Vol] 4.18 10*6/uL 4.00-4.90 [facility] Serum globulin measurement ( mass/volume)Ordered By: Kathia Gallego on 03-07-2023 Globulin (S) [Mass/Vol] 1.6 g/dL 1.9-3.9 [facility] Serum glucose measurement (m ass/volume)Ordered By: Kathia Gallego on 03-07-2023 Glucose [Mass/Vol] 95 mg/dL 70-99 [facility] Serum or plasma anion gap de termination (moles/volume)Ordered By: Kathia Gallego on 03-07-2023 Anion gap [Moles/Vol] 9 mmol/L 4-14 [facility] Serum or plasma calcium minh urement (mass/volume)Ordered By: Kathia Gallego on 03-07-2023 Calcium [Mass/Vol] 9.5 mg/dL 8.5-10.5 [facility] Serum or plasma creatinine m easurement (moles/volume)Ordered By: Kathia Gallego on 03-07-2023 Creatinine [Moles/Vol] 0.62 mg/dL 0.60-1.20 [facility] Serum or plasma sodium measu rement (moles/volume)Ordered By: Kathia Gallego on 03-07-2023 Sodium [Moles/Vol] 141 mmol/L 135-145 [facility] Serum or plasma urea nitroge n measurement (mass/volume)Ordered By: Kathia Gallego on 03-07-2023 Urea nitrogen [Mass/Vol] 9 mg/dL 7-25 [facility] Specific gravity of UrineOrd ered By: Kathia Gallego on 03-07-2023 Specific gravity (U) [Rel density] 1.008 1.001-1.035 [facility] Total protein bloodOrdered B y: Kathia Gallego on 03-07-2023 Protein [Mass/Vol] 6.0 g/dL 6.2-8.0 [facility] Urine blood detectionOrdered By: Kathia Gallego on 03-07-2023 RBC Ql (U) Negative Negative [facility] Urine colorOrdered By: Kathia Gallego on 03-07-2023 Color (U) Straw [facility] Urine ketones detectionOrder ed By: Kathia Gallego on 03-07-2023 Ketones Ql (U) Negative Negative [facility] Urine leukocytes detection b y microscopyOrdered By: Kathia Gallego on 03-07-2023 WBC Visual Ql (U) Negative Negative [facility] Urine nitrate detectionOrder ed By: Kathia Gallego on 03-07-2023 Nitrate Ql (U) Negative Negative [facility] Urine pHOrdered By: Kathia moura on 03-07-2023 pH (U) 5.0 [pH] 4.6-8.0 [facility] Urine protein detection by a utomated test stripOrdered By: Kathia Gallego on 03-07-2023 Protein Auto test strip Ql (U) Negative Negative [facility] Urobilinogen Test strip (U) [Mass/Vol]Ordered By: Kathia Gallego on 03-07-2023 Urobilinogen (U) [Mass/Vol] Negative Negative [facility] No Panel Informationon 03-04 Radiology Study observation (narrative) [facility] XR Lumbar spine 2 or 3 Views on 03-04-2023 1. There is no fract ure of the lumbar spine or sacrum 2. Minimal degenerative disc disease at the L5-S1 level. [facility] EXAMINATION: XRAY VIEWS OF THE LUMBAR SPINE 03/04/2023 12:21 pm COMPARISON: None. HISTORY: ORDERING SYSTEM PROVIDED HISTORY: fall, lower lumbar/ sacrum pain TECHNOLOGIST PROVIDED HISTORY: Reason for exam:->fall, lower lumbar/ sacrum pain FINDINGS: Three views lumbar spine were obtained. There is no acute fracture or subluxation of the lumbar spine. Minimal degenerative disc disease is noted at the L5-S1 level. The sacroiliac joints are patent and symmetrical bilaterally. There is no fracture of the sacrum. [facility] Wilmer Wray MD - 03/04/2023 EXAMINATION: XRAY VIEWS OF THE LUMBAR SPINE 03/04/2023 12:21 pm COMPARISON: None. HISTORY: ORDERING SYSTEM PROVIDED HISTORY: fall, lower lumbar/ sacrum pain TECHNOLOGIST PROVIDED HISTORY: Reason for exam:->fall, lower lumbar/ sacrum pain FINDINGS: Three views lumbar spine were obtained. There is no acute fracture or subluxation of the lumbar spine. Minimal degenerative disc disease is noted at the L5-S1 level. The sacroiliac joints are patent and symmetrical bilaterally. There is no fracture of the sacrum. IMPRESSION: 1. There is no fracture of the lumbar spine or sacrum 2. Minimal degenerative disc disease at the L5-S1 level. [employer] XR Lumbar spine 2 or 3 Views Ordered By: Wilmer Wray on 03-04-2023 [employer] Work Phone: XR Pelvis 1 or 2 [employer] No acute abnormality of the pelvis. [facility] EXAMINATION: ONE XRAY VIEW OF THE PELVIS 03/04/2023 12:21 pm COMPARISON: None. HISTORY: ORDERING SYSTEM PROVIDED HISTORY: fall, sacrum pain TECHNOLOGIST PROVIDED HISTORY: Reason for exam:->fall, sacrum pain FINDINGS: No evidence of pelvic fracture. Bilateral hips demonstrate normal alignment. No focal osseous lesion. SI joints are symmetric. Frontal view of the sacrum appears unremarkable. Normal sacral alignment on lumbar spine exam from same day. [facility] Siddhartha Vazquez MD - 03/04/2023 EXAMINATION: ONE XRAY VIEW OF THE PELVIS 03/04/2023 12:21 pm COMPARISON: None. HISTORY: ORDERING SYSTEM PROVIDED HISTORY: fall, sacrum pain TECHNOLOGIST PROVIDED HISTORY: Reason for exam:->fall, sacrum pain FINDINGS: No evidence of pelvic fracture. Bilateral hips demonstrate normal alignment. No focal osseous lesion. SI joints are symmetric. Frontal view of the sacrum appears unremarkable. Normal sacral alignment on lumbar spine exam from same day. IMPRESSION: No acute abnormality of the pelvis. [employer] XR Pelvis 1 or 2 ViewsOrdere d By: Siddhartha Vazquez on 03-04-2023 [employer] Work Phone: XR Shoulder - left 2 [employer] 03-04-2023 No acute abnormality . [facility] EXAMINATION: THREE XRAY VIEWS OF THE LEFT SHOULDER 03/04/2023 12:21 pm COMPARISON: None. HISTORY: ORDERING SYSTEM PROVIDED HISTORY: pain post fall TECHNOLOGIST PROVIDED HISTORY: Reason for exam:->pain post fall FINDINGS: Glenohumeral joint is normally aligned. No evidence of acute fracture or dislocation. No abnormal periarticular calcifications. The AC joint is unremarkable in appearance. Visualized lung is unremarkable. [facility] Wilmer Wray MD - 03/04/2023 EXAMINATION: THREE XRAY VIEWS OF THE LEFT SHOULDER 03/04/2023 12:21 pm COMPARISON: None. HISTORY: ORDERING SYSTEM PROVIDED HISTORY: pain post fall TECHNOLOGIST PROVIDED HISTORY: Reason for exam:->pain post fall FINDINGS: Glenohumeral joint is normally aligned. No evidence of acute fracture or dislocation. No abnormal periarticular calcifications. The AC joint is unremarkable in appearance. Visualized lung is unremarkable. IMPRESSION: No acute abnormality. [facility] ED.PDOCon 12-23-2022 ED.PDOC DB DOAN Female [id number] Attending provider: PRE [facility] ER [id number] Donald Lainez 1970 52 DOS: 12/23/22 Hx/Exam - History of Present Illness Chief Complaint: SHOULDER PAIN Location: Left shoulder Symptom Duration: intermittently for months Intensity: mild-moderate Episode Frequency: intermittant Symptoms Worse with: Intermittent atraumatic left shoulder pain Assoc Sxs/Pertinent Hx: Has history of joint pain frequent visits, No chest painWorse with movement - Review of Systems All Other Systems: Pertinent Positives in HPI, All Other Systems Negative Constitutional: Denies: Fever Respiratory: Denies: Shortness of Breath Musculoskeletal: Back Pain, Shoulder Pain - Past Medical History ED PMH: Yes Anxiety, Yes Arthritis, Yes Depression, Yes Seizures - Past Surgical History Surgical History: Yes (X 2), Yes Hernia Repair (LT INGUINAL) - Social History Smoking Status: Current every day smoker Hx Alcohol Use: No - Physical Exam General Appearance: awake, alert Head, Ears, Nose, and Throat: mucous membranes moist Neck: full ROM Respiratory: no respiratory distress Cardiovascular: regular rate, rhythm Extremity: normal range of motion, normal inspection Neurologic: normal sensation Psychiatric: anxious Skin Exam: warm/dry - Source of History Source of History: Nursing Notes/Vital Signs/Triage Reviewed and Agree Note(s) - Physician Notes Additional Notes, See Orders for Details: 12/23/22 16:05 Here with recurrent joint pain shoulder pain and history of recurrent chronic back pain. She states she has been seen by multiple physicians including orthopedist and has had multiple pain management appointments And states that they were canceled inadvertently. On physical exam she is very anxious I have seen her on prior visits to. She complains of left shoulder pain but I see nothing traumatic appearing she has full range of motion subjective pain but normal distal pulses and sensation. I had a conversation regarding her OARRS which shows 20 some odd prescriptions from 20 some prescribers over the past year. I advised her that again that we had this discussion from previous providers in the ER regarding pain medications we will not be prescribing narcotics and she will need to see pain management as well as orthopedist for further evaluation. I offered a Toradol shot here and she agreed. She then stopped ask if she could have 1 Percocet and I declined . EKG - EKG EKG Interpretation: Not Applicable Discharge Screen - Discharge Discharge Problem: Chronic joint pain Disposition: HOME/SELF CARE Additional Instructions: Pursue follow-up with orthopedist dipper fish and pain management as discussed. Condition: Good Referrals: Jaime Davis [Primary Care Provider] - Dictated By: Donald Lainez DO Dictated Date/Time:12/23/22 1550 Electronically Signed Date/Time: 12/23/22 1610 Normal [facility] Absolute lymphocyte countOrd ered By: Homer Soria on 12-21-2022 Lymphocytes Auto (Unsp spec) [#/Vol] 3.1 10*3/uL 1.10-4.80 [facility] Basophils Auto (Bld) [#/Vol] Ordered By: Homer Soria on 12-21-2022 Basophils (Bld) [#/Vol] 12.1 10*3/uL 4.5-11.0 [facility] Basophils (Bld) [#/Vol] 0.1 10*3/uL 0.00-0.20 [facility] Basophils/100 WBC Auto (Bld) Ordered By: Homer Soria on 12-21-2022 Basophils/100 WBC (Bld) 0.6 % 0.0-1.5 [facility] Eosinophils Auto (Bld) [#/Vo l]Ordered By: Homer Soria on 12-21-2022 Eosinophils (Bld) [#/Vol] 0.1 10*3/uL 0.00-0.33 [facility] Eosinophils/100 WBC Auto (Bl d)Ordered By: Homer Soria on 12-21-2022 Eosinophils/100 WBC (Bld) 0.8 % 0.0-3.0 [facility] Erythrocyte distribution wid th Auto (RBC) [Ratio]Ordered By: Homer Soria on 12-21-2022 Erythrocyte distribution width (RBC) [Ratio] 13.0 % 10.9-14.3 [facility] Hematocrit Auto (Bld) [Volum e fraction]Ordered By: Homer Soria on 12-21-2022 Hematocrit (Bld) [Volume fraction] 42.0 % 36.0-44.0 [facility] Hemoglobin [Mass/volume] in BloodOrdered By: Homer Soria on 12-21-2022 Hemoglobin (Bld) [Mass/Vol] 14.9 g/dL 12.0-15.0 [facility] Lymphocytes/100 WBC Auto (Bl d)Ordered By: Homer Soria on 12-21-2022 Lymphocytes/100 WBC (Bld) 25.7 % 24.0-44.0 [facility] MCH Auto (RBC) [Entitic mass ]Ordered By: Homer Soria on 12-21-2022 MCH (RBC) [Entitic mass] 32.8 pg 28.0-34.0 [facility] MCHC Auto (RBC) [Mass/Vol]Or dered By: Homer Soria on 12-21-2022 MCHC (RBC) [Mass/Vol] 35.4 g/dL 33.0-37.0 [facility] MCV (mean corpuscular volume ) determinationOrdered By: Homer Soria on 12-21-2022 MCV (RBC) [Entitic vol] 92.7 fL 80.0-100.0 [facility] Monocytes Auto (Bld) [#/Vol] Ordered By: Homer Soria on 12-21-2022 Monocytes (Bld) [#/Vol] 0.8 10*3/uL 0.20-0.70 [facility] Monocytes/100 WBC Auto (Bld) Ordered By: Homer Soria on 12-21-2022 Monocytes/100 WBC (Bld) 6.6 % 3.4-9.0 [facility] Neutrophils Auto (Bld) [#/Vo l]Ordered By: Homer Soria on 12-21-2022 Neutrophils (Bld) [#/Vol] 8.0 10*3/uL 1.83-8.70 [facility] Neutrophils/100 WBC Auto (Bl d)Ordered By: Homer Soria on 12-21-2022 Neutrophils/100 WBC (Bld) 66.3 % 40.0-74.0 [facility] Platelet mean volume Auto (B ld) [Entitic vol]Ordered By: Homer Soria on 12-21-2022 Platelet mean volume (Bld) [Entitic vol] 5.9 fL 7.4-10.4 [facility] Platelets Auto (Bld) [#/Vol] Ordered By: Homer Soria on 12-21-2022 Platelets (Bld) [#/Vol] 396 10*3/uL 150-450 [facility] RBC Auto (Bld) [#/Vol]Ordere d By: Homer Soria on 12-21-2022 RBC (Bld) [#/Vol] 4.53 10*6/uL 4.00-4.90 [facility] Serum or plasma C reactive p rotein measurement (mass/volume)Ordered By: Homer Soria on 12-21-2022 CRP [Mass/Vol] mg/L <9.9 [facility] MR Pelvis WO and W contrast Maryann 11-15-2022 IMPRESSION: Mild hip degenerative arthritis and suspected acetabular labral tears bilaterally. Minimal trochanteric bursitis bilaterally. Mild bilateral gluteus minimus and gluteus medius tendinosis. Transcribe Date/Time: Nov 15 2022 9:00A Dictated by: JENNIFER MEMBRENO MD This examination was interpreted and the report reviewed and electronically signed by: JENNIFER MEMBRENO MD on Nov 15 2022 9:17AM EST Thank you for allowing us to participate in the care of your patient. Should there be any questions regarding this interpretation, please call [phone]. If you are unable to reach us at the number above, please feel free to contact [facility] at [phone]. DIVISION OF RADIOLOGY * * *Final Report* * * DATE OF EXAM: Nov 14 2022 5:09PM NIM 0230 - MRI PELVIS ORTHO GEN WO/W IVCON / PROCEDURE REASON: LBP, SCIATICA, SACROILIAC PAIN * * * * Physician Interpretation * * * * RESULT: MRI PELVIS WITHOUT AND WITH CONTRAST INDICATION: LBP, SCIATICA, SACROILIAC PAIN. COMPARISON: None. TECHNIQUE: Multiplanar, multisequence imaging of the pelvis was performed before and after intravenous administration of 12 mL Dotarem. RESULT: BONE MARROW: No evidence of acute fracture, bone contusion, avascular necrosis, or pathologic marrow replacing lesion. HIP JOINTS: Large [id number] images precludes optimal assessment of hip joint cartilage and erasmo. Bilateral hip marginal and collar osteophytes. Suspected small areas of left posterior acetabular/femoral head and bilateral superior acetabular/femoral head chondral chondral loss and fissuring. Slight irregularity and increased signal on fluid sensitive sequences involving the anterior-superior acetabular erasmo bilaterally suspicious for tears. SACROILIAC JOINTS: Maintained bilaterally without diastasis or joint effusion. No evidence of erosion or sacroiliitis. No abnormal synovial enhancement to suggest synovitis. PUBIC SYMPHYSIS: Within normal limits. TENDONS: The visualized tendons about the pelvis are intact including the iliopsoas, hamstring, gluteal and rectus femoris tendons. Mild thickening and intermediate signal the bilateral gluteus minimus and gluteus medius tendons at their greater trochanter attachments bilaterally compatible with mild tendinosis. MUSCLES: Normal muscle bulk and signal intensity. OTHER: Trace fluid signal and edema about the lateral aspects of the greater trochanters bilaterally compatible with minimal bursitis. The visualized sciatic nerves are unremarkable. Small free fluid in the pelvis. Partially imaged lower lumbar spine degenerative changes. LOCALIZER IMAGES: No other significant findings. DIVISION OF RADIOLOGY Provider, [facility] - 11/15/2022 * * *Final Report* * * DATE OF EXAM: Nov 14 2022 5:09PM [facility] 0230 - MRI PELVIS ORTHO GEN WO/W IVCON / PROCEDURE REASON: LBP, SCIATICA, SACROILIAC PAIN * * * * Physician Interpretation * * * * RESULT: MRI PELVIS WITHOUT AND WITH CONTRAST INDICATION: LBP, SCIATICA, SACROILIAC PAIN. COMPARISON: None. TECHNIQUE: Multiplanar, multisequence imaging of the pelvis was performed before and after intravenous administration of 12 mL Dotarem. RESULT: BONE MARROW: No evidence of acute fracture, bone contusion, avascular necrosis, or pathologic marrow replacing lesion. HIP JOINTS: Large [id number] images precludes optimal assessment of hip joint cartilage and erasmo. Bilateral hip marginal and collar osteophytes. Suspected small areas of left posterior acetabular/femoral head and bilateral superior acetabular/femoral head chondral chondral loss and fissuring. Slight irregularity and increased signal on fluid sensitive sequences involving the anterior-superior acetabular erasmo bilaterally suspicious for tears. SACROILIAC JOINTS: Maintained bilaterally without diastasis or joint effusion. No evidence of erosion or sacroiliitis. No abnormal synovial enhancement to suggest synovitis. PUBIC SYMPHYSIS: Within normal limits. TENDONS: The visualized tendons about the pelvis are intact including the iliopsoas, hamstring, gluteal and rectus femoris tendons. Mild thickening and intermediate signal the bilateral gluteus minimus and gluteus medius tendons at their greater trochanter attachments bilaterally compatible with mild tendinosis. MUSCLES: Normal muscle bulk and signal intensity. OTHER: Trace fluid signal and edema about the lateral aspects of the greater trochanters bilaterally compatible with minimal bursitis. The visualized sciatic nerves are unremarkable. Small free fluid in the pelvis. Partially imaged lower lumbar spine degenerative changes. LOCALIZER IMAGES: No other significant findings. IMPRESSION IMPRESSION: Mild hip degenerative arthritis and suspected acetabular labral tears bilaterally. Minimal trochanteric bursitis bilaterally. Mild bilateral gluteus minimus and gluteus medius tendinosis. Transcribe Date/Time: Nov 15 2022 9:00A Dictated by: JENNIFER MEMBRENO MD This examination was interpreted and the report reviewed and electronically signed by: JENNIFER MEMBRENO MD on Nov 15 2022 9:17AM EST Thank you for allowing us to participate in the care of your patient. Should there be any questions regarding this interpretation, please call [phone]. If you are unable to reach us at the number above, please feel free to contact [facility] eRadiology at [phone]. [facility] MR Pelvis WO and W contrast IVOrdered By: Ccf Provider on 11-15-2022 [facility] MR Pelvis WO and W contrast Maryann 11-14-2022 Radiology Study observation (narrative) [facility] BASIC METABOLIC PANELon 08-0 Anion gap [Moles/Vol] 9 mmol/L Low 10 - 20 [facility] inson/Tayo [facility] Comment on above: Performed By: #### B MP #### [address] [address] Calcium [Mass/Vol] 8.7 mg/dL Normal 8.6 - 10.3 [facility] Comment on above: Performed By: #### B MP #### [address] [address] Chloride [Moles/Vol] 106 mmol/L Normal 98 - 107 Markel [facility] Comment on above: Performed By: #### B MP #### [address] [address] Creatinine [Mass/Vol] 0.57 mg/dL Normal 0.50 - 1.05 Ro [facility] Comment on above: Performed By: #### B MP #### [address] [address] eGFR FEMALE >90 Normal >90 [place] Comment on above: Result Comment: CALC ULATIONS OF ESTIMATED GFR ARE PERFORMED USING THE 2020 CKD-EPI STUDY REFIT EQUATION WITHOUT THE RACE VARIABLE FOR THE IDMS-TRACEABLE CREATININE METHODS. https://jasn.asnjournals.org/content/early//ASN.891978 4374 Performed By: #### B MP #### [address] [address] Glucose [Mass/Vol] 84 mg/dL Normal 74 - 99 [facility] Comment on above: Performed By: #### B MP #### [address] [address] HCO3 (Bld) [Moles/Vol] 26 mmol/L Normal 21 - 32 [facility] Comment on above: Performed By: #### B MP #### [address] [address] Potassium [Moles/Vol] 3.4 mmol/L Low 3.5 - 5.3 [facility] Comment on above: Performed By: #### B MP #### [address] [address] Sodium [Moles/Vol] 138 mmol/L Normal 136 - 145 [facility] Comment on above: Performed By: #### B MP #### [place] [id number] Urea nitrogen [Mass/Vol] 6 mg/dL Normal 6 - 23 [facility] Comment on above: Performed By: #### B MP #### [place] [id number] CBC AND DIFFERENTIALon 10-06 % AUTOMATED IMMATURE GRAN 0.5 % Normal 0.0 - 0.9 [facility] Comment on above: Result Comment: Anahi ture Granulocyte Count (IG) includes promyelocytes, myelocytes and metamyelocytes but does not include bands. Percent differential counts (%) should be interpreted in the context of the absolute cell counts (cells/L). Performed By: #### C BCDF #### [place] [address] Basophils (Bld) [#/Vol] 0.03 10*3/uL Normal 0.00 - 0.10 [facility] Comment on above: Performed By: #### C BCDF #### [address] [address] Basophils/100 WBC (Bld) 0.3 % Normal 0.0 - 2.0 [facility] Comment on above: Performed By: #### C BCDF #### [address] [address] Eosinophils (Bld) [#/Vol] 0.04 10*3/uL Normal 0.00 - 0.70 [facility] Comment on above: Performed By: #### C BCDF #### [address] [address] Eosinophils/100 WBC (Bld) 0.4 % Normal 0.0 - 6.0 [facility] Comment on above: Performed By: #### C BCDF #### [address] [address] Erythrocyte distribution width (RBC) [Ratio] 12.9 % Normal 11.5 - 14.5 [facility] Comment on above: Performed By: #### C BCDF #### [address] [address] Hematocrit (Bld) [Volume fraction] 39.2 % Normal 36.0 - 46.0 [facility] Comment on above: Performed By: #### C BCDF #### [address] [address] Hemoglobin (Bld) [Mass/Vol] 13.7 g/dL Normal 12.0 - 16.0 [facility] Comment on above: Performed By: #### C BCDF #### [address] [address] Lymphocytes (Bld) [#/Vol] 2.20 10*3/uL Normal 1.20 - 4.80 [facility] Comment on above: Performed By: #### C BCDF #### [address] [address] Lymphocytes/100 WBC (Bld) 23.9 % Normal 13.0 - 44.0 [facility] Comment on above: Performed By: #### C BCDF #### [address] [address] MCHC (RBC) [Mass/Vol] 34.9 g/dL Normal 32.0 - 36.0 [facility] Comment on above: Performed By: #### C BCDF #### [address] [address] MCV (RBC) [Entitic vol] 95 fL Normal 80 - 100 [facility] Comment on above: Performed By: #### C BCDF #### [address] [address] Monocytes (Bld) [#/Vol] 0.59 10*3/uL Normal 0.10 - 1.00 [facility] Comment on above: Performed By: #### C BCDF #### [address] [address] Monocytes/100 WBC (Bld) 6.4 % Normal 2.0 - 10.0 [facility] Comment on above: Performed By: #### C BCDF #### [address] [address] Neutrophils (Bld) [#/Vol] 6.31 10*3/uL Normal 1.20 - 7.70 [facility] Comment on above: Performed By: #### C BCDF #### [address] [address] Neutrophils/100 WBC (Bld) 68.5 % Normal 40.0 - 80.0 [facility] Comment on above: Performed By: #### C BCDF #### [address] [address] Platelets (Bld) [#/Vol] 350 10*3/uL Normal 150 - 450 [facility] Comment on above: Performed By: #### C BCDF #### [address] [address] RBC 4.13 x10E12/L Normal 4.00 - 5.20 [place] Comment on above: Performed By: #### C BCDF #### [address] [address] WBC (Bld) [#/Vol] 9.2 10*3/uL Normal 4.4 - 11.3 [facility] Comment on above: Performed By: #### C BCDF #### [address] [address] CREATINE KINASEon 10-06-2022 CK [Catalytic activity/Vol] 46 U/L Normal 0 - 215 [facility] Comment on above: Performed By: #### C K #### [address] [address] HEPATIC FUNCTION PANELon Albumin [Mass/Vol] 3.8 g/dL Normal 3.4 - 5.0 [facility] Comment on above: Performed By: #### H EPFP #### [address] [address] ALP [Catalytic activity/Vol] 39 U/L Normal 33 - 110 [facility] Comment on above: Performed By: #### H EPFP #### [address] [address] ALT [Catalytic activity/Vol] 13 U/L Normal 7 - 45 [facility] Comment on above: Result Comment: Risa ents treated with Sulfasalazine may generate falsely decreased results for ALT. Performed By: #### H EPFP #### [address] [address] AST [Catalytic activity/Vol] 15 U/L Normal 9 - 39 [facility] Comment on above: Performed By: #### H EPFP #### [address] [address] Bilirubin [Mass/Vol] 0.5 mg/dL Normal 0.0 - 1.2 [facility] Comment on above: Performed By: #### H EPFP #### [address] [address] Bilirubin.indirect [Mass/Vol] 0.1 mg/dL Normal 0.0 - 0.3 [facility] Comment on above: Performed By: #### H EPFP #### [address] [address] Protein [Mass/Vol] 5.5 g/dL Low 6.4 - 8.2 [facility] Comment on above: Performed By: #### H EPFP #### [address] [address] TSHon 10-06-2022 TSH Qn 0.43 m[IU]/L Low 0.44 - 3.98 [facility] Comment on above: Result Comment: TSH testing is performed using different testing methodology at [facility] than at other [facility]. Direct result comparisons should only be made within the same method. Performed By: #### B MP #### [facility] [address] [place] [address] Triage - EDon 10-06-2022 Triage - ED Quick Triage: Are You no Have You Given In The Last 6 Weeksno Are You Currently Breastfeedingno Chart Review: ARRIVAL INFORMATION Mode of Arrival: private vehicle CHIEF COMPLAINT DB DOAN is a Female patient with a chief complaint of weakness (Multiple falls- 8 in last month). Onset of the Complaint: 01-Sep-2022 Triage Date/Time: 06-Oct-2022 15:22 EDNA: 3 Pain Rating (0-10): 10 = Severe Vital Signs: Temperature: 98.7F ( 37.0C) taken forehead Blood Pressure: 139/86 Mean: Heart Rate: 98 Respiratory Rate: 18 Pulse Oximetry: 99% on room air, no respiratory support. Height: 5 feet 7.00 inches. 170.1 CM Weight: 135.5 pounds. Calculated 61.5 kg. Calculated BMI (kg/m2): 21.255 Calculated BSA (m2) 1.70 Cassandra Coma Scale: Best Eye Response: (E4) spontaneous Best Motor Response: (M6) obeys commands Best Verbal Response: (V5) oriented Mary Score: 15 Allergies: no Patient has homicidal thoughts: no Symptom Notes: . Symptoms Are POSITIVE For: confusion, headache and weakness. Symptoms Are Negative For: blurred vision, chills, dehydration, diaphoresis, loss of consciousness and nausea. Last Known Well: unknown Risk Screens Suicide Risk Screen In the Past Month: Have you wished you were or wished you could go to sleep and not wake up no In the Past Month: Have you had any actual thoughts of killing yourself no In Your Lifetime: Have you ever done anything, started to do anything, or prepared to do anything to end your life no Weiner Fall Scale Screening Has the patient fallen before (or is the patient in the ED as a result of a fall) has had a fall Does the patient have an impaired gait does not have impaired gait Is the patient cognitively impaired not cognitively impaired Weiner Fall Scale History of falling (immediate or previous) yes (25) Secondary Diagnosis yes (15) Intravenous Therapy/ Heparin/Saline Lock no (0) Gait/Transferring impaired (20) Ambulatory Aids none/bedrest/nurse assist (0) Mental Status oriented to own ability (0) Weiner Fall Risk Score: 60 Interventions: Weiner Fall Interventions: LOW INTERVENTIONS: *patient oriented to surroundings and call system, * patient/family falls education completed and documented, *patients fall status communicated during bedside handoff, *whiteboard updated, *mode of toileting discussed with patient, *bed in low position with brakes locked, *call light in reach, * non-skid footwear TRAVEL HISTORY Travel History Coronavirus Screening: no exposure or symptoms Travel Exposure History: NO travel to International locations in the past 30 days PAIN Pain Scale Used: SAMANTHA Pain Rating (0-10): 10 = Severe Past Medical History: Past Medical History Reviewedyes Electronic Signatures: Lourdes Espinosa (RN) (Signed 06-Oct-2022 15:31) Entered: Risk Screens, Pain, Travel History, Chart Review, Scores, Past Medical History Authored: Quick Triage, Risk Screens, Pain, Travel History, Chart Review, Scores, Past Medical History Parker Talamantes) (Signed 06-Oct-2022 18:48) Authored: Quick Triage, Chart Review Last Updated: 06-Oct-2022 18:48 by Parker Talamantes (NIK) Normal [place] URINALYSIS WITH CULTURE IF I NDICATEDon 10-06-2022 Appearance (U) Clear Normal CLEAR [place]/P diomedes [facility] Comment on above: Performed By: #### U ARFX #### [address] [address] Bilirubin Ql (U) Negative Normal NEGATIVE [place] [facility] Comment on above: Performed By: #### U ARFX #### [address] [address] Color (U) Straw Normal STRAW,YELLOW [place]/Por ta [facility] Comment on above: Performed By: #### U ARFX #### [address] [address] Glucose Ql (U) Negative Normal NEGATIVE [place]/P diomedes [facility] Comment on above: Performed By: #### U ARFX #### [address] [address] Hemoglobin Ql (U) Negative Normal NEGATIVE [facility] Comment on above: Performed By: #### U ARFX #### [address] [address] Ketones Ql (U) 20(1+) Abnormal NEGATIVE [place] Comment on above: Performed By: #### U ARFX #### [address] [address] Leukocyte esterase Test strip Ql (U) Negative Normal NEGATIVE [facility] Comment on above: Performed By: #### U ARFX #### [address] [address] Nitrite Ql (U) Negative Normal NEGATIVE [facility] Comment on above: Performed By: #### U ARFX #### [place] [address] pH (U) 6.0 [pH] Normal 5.0 - 8.0 [facility] Comment on above: Performed By: #### U ARFX #### [place] [address] Protein Ql (U) Negative Normal NEGATIVE [facility] Comment on above: Performed By: #### U ARFX #### [place] [address] Specific gravity (U) [Rel density] 1.008 Normal 1.005 - 1.035 [facility] Comment on above: Performed By: #### U ARFX #### [place] [address] Urobilinogen (U) [Mass/Vol] mg/dL Normal 0.0 - 1.9 [facility] Comment on above: Performed By: #### U ARFX #### [place] [address] VENOUS FULL PANELon 10-07-19 23 Anion gap [Moles/Vol] 11 mmol/L Normal 10 - 25 [facility] Comment on above: Performed By: #### H EPFP #### [place] [address] BASE EXCESS-BLOOD 1.2 mmol/L Normal -2.0 - 3.0 [facility] Comment on above: Performed By: #### H EPFP #### [address] [address] BICARB, CALCULATED 26.0 mmol/L Normal 22.0 - 26.0 [facility] Comment on above: Performed By: #### H EPFP #### [place] [address] CALCIUM,IONIZED 1.19 mmol/L Normal 1.10 - 1.33 [facility] Comment on above: Performed By: #### H EPFP #### [place] [address] Chloride [Moles/Vol] 105 mmol/L Normal 98 - 107 [facility] Comment on above: Performed By: #### H EPFP #### [place] [address] Glucose [Mass/Vol] 86 mg/dL Normal 74 - 99 [facility] Comment on above: Performed By: #### H EPFP #### [place] [address] Hematocrit (Bld) [Volume fraction] 39.0 % Normal 36.0 - 46.0 [facility] Comment on above: Performed By: #### H EPFP #### [address] [address] Hemoglobin (Bld) [Mass/Vol] 12.9 g/dL Normal 12.0 - 16.0 [facility] Comment on above: Performed By: #### H EPFP #### [address] [address] Lactate [Moles/Vol] 0.7 mmol/L Normal 0.4 - 2.0 [facility] Comment on above: Performed By: #### H EPFP #### [address] [address] OXY HGB 84.2 % High 45.0 - 75.0 [facility] Comment on above: Performed By: #### H EPFP #### [address] [address] Oxygen (Bld) [Partial pressure] 53 mm[Hg] High 35 - 45 [facility] Comment on above: Performed By: #### H EPFP #### [address] [address] PATIENT TEMPERATURE 37.0 degrees C Normal [facility] on above: Result Comment: NOTE : PATIENT RESULTS ARE NOT CORRECTED FOR TEMPERATURE. Performed By: #### H EPFP #### [address] [address] PCO2 41 mmHg Normal 41 - 51 [facility] Comment on above: Performed By: #### H EPFP #### [address] [address] pH (Bld) 7.41 [pH] Normal 7.33 - 7.43 [facility] Comment on above: Performed By: #### H EPFP #### [address] [address] Potassium [Moles/Vol] 3.6 mmol/L Normal 3.5 - 5.3 [facility] Comment on above: Performed By: #### H EPFP #### [address] [address] SO2 88 % High 45 - 75 [facility] Comment on above: Performed By: #### H EPFP #### [address] [address] Sodium [Moles/Vol] 138 mmol/L Normal 136 - 145 [facility] Comment on above: Performed By: #### H EPFP #### [address] [address] Provider Note - ED v3on 07-0 Provider Note - ED v3 Provider Note: Results/Vital Signs: Pediatric Clinical Scoring (COOPER) is no recent COOPER charted on this account Chart Review: ED NOTES ED NOTES: 52-year-old female presents to the ER with chief complaint of back pain for multiple weeks according to the patient. Patient reports that she is seen various physicians for evaluation. Patient did have an MRI performed for the pain on August 17 which came back negative for any emergent findings no significant lumbar spinal mass or stenosis is detected no abnormal enhancement is actual read from the MRI. Patient denies any fever or chills patient denies any problems urination or defecation. Patient denies any IV drugs. Patient reports that she did let herself down to her buttocks last night but did not actually fall. Patient denies any recent injury. For this reason I do not see any indication for new imaging. Patient has been seen at multiple different ERs she has been seen at [facility] on August 28 also on the also seen at [facility] on the and back to [place] on the then [facility] on the also seen at [facility] on the [place] on the also seen in the ED at [facility] on the also seen on 09 August at [facility]. Patient has been witnessed by me walking throughout the ER without any difficulty walking does not appear to be in actual pain at this time. Patient had go to the restroom and I was able to see her go from 1 restroom to the other restroom walking normal without any abnormal gait or any grimacing was actually moving pretty quickly actually. I did confront the patient with her OARRS report I explained to her that there was multiple hits on the database at this time I recommend anti-inflammatories and some steroids. Also give referral to pain management. Patient understands explained to its very important that she follows up with a specialist patient reports that she will follow-up pain management again clinically patient is well-appearing no acute distress patient is discharged home. HISTORY OF PRESENTING ILLNESS DB is a 52 year old Female and was seen by me at 03-Sep-2022 12:15 for a chief complaint of neck pain (fell last night and feels stenosis is flared up in neck and back)(1). Triage Information: Most recent Vital Sign Value Date Temp (F): 97.4 09-03-2022 12:31 Temp (C): 36.3 09-03-2022 12:31 Heart Rate (beats/min): 116 09-03-2022 12:31 Respirations (breaths/min): 18 09-03-2022 12:31 SpO2 (%): 99 09-03-2022 12:31 BP Systolic (mm Hg): 136 09-03-2022 12:31 BP Diastolic (mm Hg): 103 09-03-2022 12:31 PAST MEDICAL HISTORY ALLERGIES/INTOLERANCES: No Known Allergies HEALTH HISTORY: No documented data. OUTPATIENT MEDICATIONS: Home Medications Review Status for Reconciliation: N/A Med Status: Patient Currently Takes Medications Drug Name: cyclobenzaprine 10 mg oral tablet Instructions: 1 tab(s) orally every 8 hours, As Needed Drug Name: predniSONE 50 mg oral tablet Instructions: 1 tab(s) orally once a day Drug Name: predniSONE 20 mg oral tablet Instructions: 2 tab(s) orally once a day- starting on 06/26/22 Drug Name: Zanaflex 4 mg oral tablet Instructions: 2 tab(s) orally every 8 hours Drug Name: Lidoderm 5% topical film Instructions: Apply topically to affected area once a day Drug Name: naproxen 500 mg oral tablet Instructions: 1 tab(s) orally 2 times a day Drug Name: gabapentin 100 mg oral capsule Instructions: 1 cap(s) orally 3 times a day Drug Name: naproxen 500 mg oral tablet Instructions: 1 tab(s) orally every 12 hours as needed for pain or swelling. Drug Name: methocarbamol 500 mg oral tablet Instructions: 1-2 tab(s) orally every 12 hours as needed for muscle spasm. May cause sleepiness. Drug Name: oxycodone-acetaminophen 5 mg-325 mg oral tablet Instructions: 1 tab(s) orally every 6 hours x 3 days SIGNIFICANT EVENTS: Past Medical History Description:epilepsy REVIEW OF SYSTEMS CONSTITUTIONAL: Negative for: anorexia, chills and fever EYES: Negative for: pain and vision changes ENMTThroat/Neck: Negative for: dysphagia, neck pain and neck stiffness CARDIOVASCULAR: Negative for: chest pain and tachycardia RESPIRATORY: Negative for: cough, dyspnea and wheezing GASTROINTESTINAL: Negative for: abdominal pain, diarrhea, nausea and vomiting; GENITOURINARY: Negative for: dysuria, frequency, hematuria and urgency; MUSCULOSKELETAL: POSITIVE for: pain Negative for: back pain, sensory deficits and weakness INTEGUMENTARY: Negative for: lesions; NEUROLOGICAL: Negative for: altered mental status, dizziness, headache, loss of consciousness, loss of function and low extremity numbness; PSYCHIATRIC: Negative for: anxiety, hallucinations and mood swings HEME/LYMPH: Negative for: anemia ALLERGIC/IMMUNOLOGIC: Negative for: HIV; latex (more content not included)... Normal [facility] Risk Screen - Adult Emergenc yon 09-03-2022 Risk Screen - Adult Emergency Preferred Language: Preferred Language: Preferred Language for Discussing Health Care (patient/designee)Jeet kenney Patient Preferred Pharmacy: Patient Preferred Pharmacy Statement: I have reviewed and updated the patient's preferred pharmacy selection for today's visit. Advanced Directives: Advance Directive/DNRno Family Violence Adult: Abuse Screen: Are you or have you been threatened or abused physically, emotionally, or sexually by anyoneno Learning Assessment (Patient): Learning Assessment (Patient): Patient is Able to be Assessed for Learningyes Factors Influencing Readiness to Learnacuteness of illness Factors that Impact Ability to Learnnone Devices/Methods Used to Communicatenone Learning Preferencesverbal instruction; written material Cultural Considerationsnone Developmental Considerationsnone Evangelical Considerationsnone Learning Assessment (Other Learner): Learning Assessment (Other Learner): Other learner availableno Pressure Injury/TB/Substance: Pressure Injury: Do you have a coughno Smoking Statusnever smoker Alcohol Usedenies Drug Usedenies Admission Risk Screen: Significant IndicatorsComplete CAGE: CAGE: Is this an injured patient at a Trauma Center ([facility]/[place]): no Electronic Signatures: Daksha Call (NIK) (Signed 03-Sep-2022 14:32) Authored: Preferred Language, Patient Preferred Pharmacy, Advanced Directives, Family Violence Adult, Learning Assessment (Patient), Learning Assessment (Other Learner), Pressure Injury/TB/Substance, Pressure Injury, CAGE Last Updated: 03-Sep-2022 14:32 by Daksha Call (NIK) Normal [facility] Triage - EDon 09-03-2022 Triage - ED Quick Triage: Are You no Are You Currently Breastfeedingno Chart Review: PRIMARY ASSESSMENT DB DOAN's primary assessment is Within Defined Limits. The airway is open and patent. Breathing spontaneous and unlabored with clear breath sounds bilaterally. Circulation is normal with good peripheral pulses. Skin is warm and dry and color is normal for race. ARRIVAL INFORMATION Mode of Arrival: private vehicle CHIEF COMPLAINT DB DOAN is a Female patient with a chief complaint of neck pain (fell last night and feels stenosis is flared up in neck and back). Triage Date/Time: 03-Sep-2022 12:31 EDNA: 4 Pain Rating (0-10): 10 = Severe Vital Signs: Temperature: 97.4F ( 36.3C) Blood Pressure: 136/103 Mean: Heart Rate: 116 Respiratory Rate: 18 Pulse Oximetry: 99% Height: 5 feet 7.00 inches. 170.1 CM Weight: 143.3 pounds. Calculated 65.0 kg. Calculated BMI (kg/m2): 22.464 Calculated BSA (m2) 1.75 Cassandra Coma Scale: Best Eye Response: (E4) spontaneous Best Motor Response: (M6) obeys commands Best Verbal Response: (V5) oriented Mary Score: 15 Patient has homicidal thoughts: no Risk Screens Suicide Risk Screen In the Past Month: Have you wished you were or wished you could go to sleep and not wake up no In the Past Month: Have you had any actual thoughts of killing yourself no In Your Lifetime: Have you ever done anything, started to do anything, or prepared to do anything to end your life no Weiner Fall Scale Screening Has the patient fallen before (or is the patient in the ED as a result of a fall) has not had a fall Does the patient have an impaired gait does not have impaired gait Is the patient cognitively impaired not cognitively impaired Interventions: Weiner Fall Interventions: LOW INTERVENTIONS: *patient oriented to surroundings and call system, * patient/family falls education completed and documented, *patients fall status communicated during bedside handoff, *whiteboard updated, *mode of toileting discussed with patient, *bed in low position with brakes locked, *call light in reach, * non-skid footwear TRAVEL HISTORY Travel History Coronavirus Screening: no exposure or symptoms Travel Exposure History: NO travel to International locations in the past 30 days PAIN Pain Scale Used: SAMANTHA Pain Rating (0-10): 10 = Severe Past Medical History: Past Medical History Reviewedyes Electronic Signatures: Purnima Heredia) (Signed 03-Sep-2022 12:33) Entered: Risk Screens, Pain, ABCD, Travel History, Chart Review, Scores, Past Medical History Authored: Quick Triage, Risk Screens, Pain, ABCD, Travel History, Chart Review, Scores, Past Medical History Last Updated: 03-Sep-2022 12:33 by Purnima Heredia (RN) Normal [facility] HCG,URINEon 08-07-2022 Beta HCG ( test) Ql (U) Negative Normal Negative [facility] Comment on above: Performed By: #### H CGU #### [facility] [address] [place] [address] Provider Note - ED v3on Provider Note - ED v3 Provider Note: Chart Review: HISTORY OF PRESENTING ILLNESS DB is a 52 year old Female and was seen by me at 07-Aug-2022 12:38 for a chief complaint of (left hip/back pain radiating to leg) . Other complaints include: increased pain after walking at concert in [place] last night. Presents the emergency department for evaluation of worsening low back pain and left leg pain after over 3 miles at a [employer] concert last night. There is no new traumatic incident. Patient was seen recently in the ER after she was knocked down by a car door. She was given muscle relaxants, NSAID and states that she aggravated this injury secondary to walking a long distance and standing a long time at a concert. She has no chronic lower back pain and is following with Dr. Latham for possible surgical intervention after starting pain management on August 23. She denies any loss of bowel or bladder control, saddle paresthesia, urinary retention, fever, chills, abdominal pain, leg weakness. She has taken Tylenol and ibuprofen with a muscle relaxant for her discomfort this morning and came to the emergency department due to persistent pain. Her symptoms are moderate to severe in severity and persistent nature.. Triage Information: Most recent Vital Sign Value Date Temp (F): 98.7 08-07-2022 11:57 Temp (C): 37 08-07-2022 11:57 Heart Rate (beats/min): 89 08-07-2022 11:57 Respirations (breaths/min): 18 08-07-2022 11:57 SpO2 (%): 99 08-07-2022 11:57 BP Systolic (mm Hg): 133 08-07-2022 11:57 BP Diastolic (mm Hg): 82 08-07-2022 11:57 PAST MEDICAL HISTORY CURRENT OR FORMER SUBSTANCE USE: Tobacco/Nicotine Use: unable to assess Alcohol Use: occasionally Drug Use: (marijuana gummy, no IVDU),ALLERGIES/INTOLER ANCES: No Known Allergies HEALTH HISTORY: No documented data. OUTPATIENT MEDICATIONS: Home Medications Review Status for Reconciliation: N/A Med Status: Patient Currently Takes Medications Drug Name: cyclobenzaprine 10 mg oral tablet Instructions: 1 tab(s) orally every 8 hours, As Needed Drug Name: predniSONE 50 mg oral tablet Instructions: 1 tab(s) orally once a day Drug Name: predniSONE 20 mg oral tablet Instructions: 2 tab(s) orally once a day- starting on 06/26/22 Drug Name: Zanaflex 4 mg oral tablet Instructions: 2 tab(s) orally every 8 hours Drug Name: Lidoderm 5% topical film Instructions: Apply topically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 Score: 15 Cough lasting greater than 3 weeks: no Allergies: no Mask applied: yes Patient has homicidal thoughts: no Risk Screens Suicide Risk Screen In the Past Month: Have you wished you were or wished you could go to sleep and not wake up no In the Past Month: Have you had any actual thoughts of killing yourself no In Your Lifetime: Have you ever done anything, started to do anything, or prepared to do anything to end your life no Interventions: Weiner Fall Interventions: LOW INTERVENTIONS: *patient oriented to surroundings and call system, * patient/family falls education completed and documented, *patients fall status communicated during bedside handoff, *whiteboard updated, *mode of toileting discussed with patient, *bed in low position with brakes locked, *call light in reach, * non-skid footwear TRAVEL HISTORY Travel History Coronavirus Screening: no exposure or symptoms Travel Exposure History: NO travel to International locations in the past 30 days PAIN Pain Scale Used: SAMANTHA Pain Rating (0-10): 10 = Severe Past Medical History: Past Medical History Reviewedno Electronic Signatures: Anjana Yanez (NIK) (Signed 30-Jun-2022 16:57) Entered: Risk Screens, Pain, Travel History, Chart Review, Past Medical History Authored: Quick Triage, Risk Screens, Pain, Travel History, Chart Review, Past Medical History Last Updated: 30-Jun-2022 16:57 by Anjana Yanez) [facility] Provider Note - ED v3on 04- Provider Note - ED v3 Provider Note: Chart Review: HISTORY OF PRESENTING ILLNESS DB is a 52 year old Female and was seen by me at 25-Jun-2022 15:15 for a chief complaint of (Back, L leg pain x5 days. Pt. reports nerve pain in L lower back with shooting pains down L leg. Pt. states leg has given out multiple times resulting in minor falls. Pt. denies any trauma with the falls. Pt. denies further complaints.)(1). Other complaints include: 52 year old female presents to the Emergency Department today complaining of a 4-5 day history of lower back pain that she describes as sharp in nature, constant, radiates down the posterior aspect of the left leg to her foot, and varies in intensity. Notes that her pain is worse with movement. Denies any injury/trauma to the area. Denies any associated fever, chills, headache, neck pain, chest pain, shortness of breath, abdominal pain, nausea, vomiting, diarrhea, constipation, hematemesis, hematochezia, melena, urinary symptoms, paresthesias, focal weakness of extremities, or problems with bowel or bladder function. Has a longstanding history of lower back pain. Had a recent CT and MRI which were both unremarkable. Followed up with a neurosurgeon who wanted the patient to start PT, which she has been unable to attend at this point. . The historian is the patient. Triage Information: Most recent Vital Sign Value Date Temp (F): 97.7 06-25-2022 14:34 Temp (C): 36.5 06-25-2022 14:34 Heart Rate (beats/min): 101 06-25-2022 14:34 Respirations (breaths/min): 18 06-25-2022 14:34 SpO2 (%): 99 06-25-2022 14:34 BP Systolic (mm Hg): 120 06-25-2022 14:34 BP Diastolic (mm Hg): 85 06-25-2022 14:34 PAST MEDICAL HISTORY CURRENT OR FORMER SUBSTANCE USE: Tobacco/Nicotine Use: never smoker Alcohol Use: denies Drug Use: denies,ALLERGIES/INTOLE RANCES: No Known Allergies HEALTH HISTORY: No documented data. OUTPATIENT MEDICATIONS: Home Medications Review Status for Reconciliation: N/A Med Status: Patient Currently Takes Medications Drug Name: cyclobenzaprine 10 mg oral tablet Instructions: 1 tab(s) orally every 8 hours, As Needed Drug Name: predniSONE 50 mg oral tablet Instructions: 1 tab(s) orally once a day SIGNIFICANT EVENTS: Past Medical History Description:epilepsy REVIEW OF SYSTEMS All other systems reviewed and are negative PHYSICAL EXAM CONSTITUTIONAL: Well appearing patient who appears in no acute distress. HENMT: Normocephalic. Bilateral auditory canals are non-inflamed and non-reddened. Bilateral TMs are pearly boogie with good light reflex. Septum midline without deviation. Turbinates are not inflamed and reddened. Mucous members are moist. All teeth are intact. Uvula midline without deviation rises upon phonation. Tonsils 1+ without exudate. EYES: Bilateral conjunctiva are without injection, discharge, or drainage. PERRL with consensual pupil response bilaterally. EOM's are intact without any signs of entrapment. CARDIOVASCULAR: RRR without murmur, click, or rub. RESPIRATORY: Respirations are spontaneous and nonlabored. Lung sounds are clear in all whitfield anteriorly and posteriorly. GASTROINTESTINAL: Bowel sounds are active 4 quads. Soft, nondistended, and nontender to palpation. There was no rebound, rigidity, or guarding noted. There were no peritoneal signs noted. Negative Granados's sign. Negative McBurney's sign. GENITOURINARY: No suprapubic or CVA tenderness noted. MUSCULOSKELETAL: No edema, cyanosis, or clubbing noted. No spinous process tenderness, but does have bilateral paraspinal muscle tenderness to the lumbar sacral region. No saddle paresthesias. Negative straight leg raises. Able to plantarflex and dorsiflex bilateral great toes without difficulty. NEUROLOGICAL: Alert and oriented to person, place, or time. Follows commands well. Hand grasps and push/pulls are equally strong bilaterally. DTR's are 2+ and intact bilaterally. Gait is steady and strong. SKIN: No rashes, lesions, petechiae, or purpura. No signs of infection. PSYCHIATRIC: Alert, interactive, and cooperative. HEME/LYMPH: No adenopathy or splenomegaly. No cervical, supraclavicular, or infraclavicular lymphadenopathy. CRITICAL CARE RESULTS: Radiology Results: Impression: NO RECURRENT LEFT INGUINAL HERNIA THE MESH MATERIAL IS INNER VERY NEAR THE ANTICIPATED LOCATION USUALLY SEEN. ITS LOWER MARGIN ABUTS THE ANTERIOR LEFT CORNER OF THE URINARY BLADDER. THE MESH HAS TRACE AMOUNTS OF FLUID ADJACENT TO IT BUT THIS MAY NOT BE AN ACUTE ABNORMALITY MRI LUMBAR SPINE EARLIER SAME DAY HAS BEEN REPORTED ALREADY OTHER INCLUDED BONES AND SOFT TISSUES NONCONTRIBUTORY MASSIVE CONSTIPATION WITHOUT STERCORAL OR OTHER COLITIS CT Abdomen and Pelvis with IV Contrast [Jun 02 2022 4:38PM] Impression: Mild lumbar spondylosis at L4-L5 and L5-S1 as detailed. MRI L Spine without Contrast [Jun 02 2022 4:31PM] VITAL SIGNS: T PRBP SpO2O (more content not included)... Normal [facility] Triage - EDon 06-25-2022 Triage - ED Quick Triage: Are You no Have You Given In The Last 6 Weeksno Are You Currently Breastfeedingno The patient and/or guardian verbally acknowledges placement for services into the following (when Urgent Care Service hours are operating):emergency department Risk Screens: Chart Review: ARRIVAL INFORMATION Mode of Arrival: private vehicle CHIEF COMPLAINT DB DOAN is a Female patient with a chief complaint of (Back, L leg pain x5 days. Pt. reports nerve pain in L lower back with shooting pains down L leg. Pt. states leg has given out multiple times resulting in minor falls. Pt. denies any trauma with the falls. Pt. denies further complaints.). Triage Date/Time: 25-Jun-2022 14:34 EDNA: 3V Vital Signs: Temperature: 97.7F ( 36.5C) taken noncontact, forehead Blood Pressure: 120/85 Mean: Heart Rate: 101 Respiratory Rate: 18 Pulse Oximetry: 99% on room air, no respiratory support. Height: 5 feet 7.00 inches. 170.1 CM Weight: 141.0 pounds. Calculated 64.0 kg. Calculated BMI (kg/m2): 22.119 Calculated BSA (m2) 1.74 Cassandra Coma Scale: Best Eye Response: (E4) spontaneous Best Motor Response: (M6) obeys commands Best Verbal Response: (V5) oriented Mary Score: 15 Patient has homicidal thoughts: no Risk Screens Suicide Risk Screen In the Past Month: Have you wished you were or wished you could go to sleep and not wake up no In the Past Month: Have you had any actual thoughts of killing yourself no In Your Lifetime: Have you ever done anything, started to do anything, or prepared to do anything to end your life no Interventions: Weiner Fall Interventions: MODERATE INTERVENTIONS: *Low Interventions Plus: * falls risk band/sticker applied to patient, *yellow non-skid footwear, *instruct to call for assistance before getting out of bed, *bed/chair/bedside commode/toilet alarms, *sensory devices/ambulatory aides available and in reach, *medications reviewed for potential side effects and care planning. TRAVEL HISTORY Travel History Coronavirus Screening: no exposure or symptoms Travel Exposure History: NO travel to International locations in the past 30 days PAIN Pain Scale Used: SAMANTHA Past Medical History: Past Medical History Reviewedyes epilepsy: Past Medical History, Active Electronic Signatures: Carlos Baeza (EMT-P) (Signed 25-Jun-2022 14:37) Entered: Risk Screens, Pain, Travel History, Chart Review, Past Medical History Authored: Quick Triage, Risk Screens, Pain, Travel History, Chart Review, Past Medical History Daniel Guadarrama (RN) (Signed 25-Jun-2022 14:45) Authored: Quick Triage, Risk Screens, Chart Review Last Updated: 25-Jun-2022 14:45 by Daniel Guadarrama (RN) Normal [facility] CT CERVICAL SPINE WO CONTRAS Ton 06-23-2022 No acute abnormality of the cervical spine. Minimal degenerative disc disease at the C5-6 level. [facility] EXAMINATION: CT OF THE CERVICAL SPINE WITHOUT CONTRAST 06/23/2022 2:05 pm TECHNIQUE: CT of the cervical spine was performed without the administration of intravenous contrast. Multiplanar reformatted images are provided for review. Automated exposure control, iterative reconstruction, and/or weight based adjustment of the mA/kV was utilized to reduce the radiation dose to as low as reasonably achievable. COMPARISON: None. HISTORY: ORDERING SYSTEM PROVIDED HISTORY: INJURY TECHNOLOGIST PROVIDED HISTORY: Reason for exam:->INJURY Decision Support Exception - unselect if not a suspected or confirmed emergency medical condition->Emergency Medical Condition (MA) FINDINGS: BONES/ALIGNMENT: There is no acute fracture or traumatic malalignment. The ring of C1 is intact as is the dense. There is no compression fracture cervical spine. No jumped or perched facet is noted. The posterior elements are intact and unremarkable. DEGENERATIVE CHANGES: Minimal degenerative disc disease is noted at the C5-6 level. There is no appreciable cervical disc herniation or central canal stenosis. Gross neural foraminal narrowing is also not appreciated.. SOFT TISSUES: There is no prevertebral soft tissue swelling. [facility] Wilmer Wray MD - 06/23/2022 EXAMINATION: CT OF THE CERVICAL SPINE WITHOUT CONTRAST 06/23/2022 2:05 pm TECHNIQUE: CT of the cervical spine was performed without the administration of intravenous contrast. Multiplanar reformatted images are provided for review. Automated exposure control, iterative reconstruction, and/or weight based adjustment of the mA/kV was utilized to reduce the radiation dose to as low as reasonably achievable. COMPARISON: None. HISTORY: ORDERING SYSTEM PROVIDED HISTORY: INJURY TECHNOLOGIST PROVIDED HISTORY: Reason for exam:->INJURY Decision Support Exception - unselect if not a suspected or confirmed emergency medical condition->Emergency Medical Condition (MA) FINDINGS: BONES/ALIGNMENT: There is no acute fracture or traumatic malalignment. The ring of C1 is intact as is the dense. There is no compression fracture cervical spine. No jumped or perched facet is noted. The posterior elements are intact and unremarkable. DEGENERATIVE CHANGES: Minimal degenerative disc disease is noted at the C5-6 level. There is no appreciable cervical disc herniation or central canal stenosis. Gross neural foraminal narrowing is also not appreciated.. SOFT TISSUES: There is no prevertebral soft tissue swelling. IMPRESSION: No acute abnormality of the cervical spine. Minimal degenerative disc disease at the C5-6 level. [employer] Phone: Radiology Study observation (narrative) [employer] Phone: CT CERVICAL SPINE WO CONTRAS TOrdered By: Wilmer Wray on 06-23-2022 [employer] Phone: XR HIP 2-3 VW W PELVIS LEFTo n 06-23-2022 No acute osseous findings of the pelvis or dedicated imaging of the left hip which appears grossly well approximating the acetabular cup without acute fracture [facility] EXAMINATION: ONE XRAY VIEW OF THE PELVIS AND TWO XRAY VIEWS LEFT HIP 06/23/2022 2:01 pm COMPARISON: X-ray dated 09/28/2021 HISTORY: ORDERING SYSTEM PROVIDED HISTORY: pain TECHNOLOGIST PROVIDED HISTORY: Reason for exam:->pain FINDINGS: SI joints symmetric without widening. No displaced pelvic ring fracture. [id number] DJD of the bilateral hips with dedicated imaging of the left hip AP and frog-lateral views fail to demonstrate acute fracture or cortical irregularity. [facility] BRENDA BargerStanfordDO - 06/23/2022 EXAMINATION: ONE XRAY VIEW OF THE PELVIS AND TWO XRAY VIEWS LEFT HIP 06/23/2022 2:01 pm COMPARISON: X-ray dated 09/28/2021 HISTORY: ORDERING SYSTEM PROVIDED HISTORY: pain TECHNOLOGIST PROVIDED HISTORY: Reason for exam:->pain FINDINGS: SI joints symmetric without widening. No displaced pelvic ring fracture. [id number] DJD of the bilateral hips with dedicated imaging of the left hip AP and frog-lateral views fail to demonstrate acute fracture or cortical irregularity. IMPRESSION: No acute osseous findings of the pelvis or dedicated imaging of the left hip which appears grossly well approximating the acetabular cup without acute fracture [employer] Phone: Radiology Study observation (narrative) [employer] Phone: XR HIP 2-3 VW W PELVIS LEFTO rdered By: Stanford Barger on 06-23-2022 [employer] Phone: CBC AND DIFFERENTIALon 06-02 % AUTOMATED IMMATURE GRAN 0.3 % Normal 0.0 - 0.9 [facility] Comment on above: Result Comment: Anahi ture Granulocyte Count (IG) includes promyelocytes, myelocytes and metamyelocytes but does not include bands. Percent differential counts (%) should be interpreted in the context of the absolute cell counts (cells/L). Performed By: #### C BCDF #### [facility] [address] [place] [id number] Basophils (Bld) [#/Vol] 0.03 10*3/uL Normal 0.00 - 0.10 [facility] Comment on above: Performed By: #### C BCDF #### [address] [address] Basophils/100 WBC (Bld) 0.4 % Normal 0.0 - 2.0 [facility] Comment on above: Performed By: #### C BCDF #### [place] [address] Eosinophils (Bld) [#/Vol] 0.11 10*3/uL Normal 0.00 - 0.70 [facility] Comment on above: Performed By: #### C BCDF #### [place] [address] Eosinophils/100 WBC (Bld) 1.5 % Normal 0.0 - 6.0 [facility] Comment on above: Performed By: #### C BCDF #### [place] [address] Erythrocyte distribution width (RBC) [Ratio] 13.1 % Normal 11.5 - 14.5 [facility] Comment on above: Performed By: #### C BCDF #### [place] [address] Hematocrit (Bld) [Volume fraction] 38.9 % Normal 36.0 - 46.0 [facility] Comment on above: Performed By: #### C BCDF #### [place] [address] Hemoglobin (Bld) [Mass/Vol] 13.2 g/dL Normal 12.0 - 16.0 [facility] Comment on above: Performed By: #### C BCDF #### [place] [address] Lymphocytes (Bld) [#/Vol] 2.50 10*3/uL Normal 1.20 - 4.80 [facility] Comment on above: Performed By: #### C BCDF #### [place] [address] Lymphocytes/100 WBC (Bld) 34.3 % Normal 13.0 - 44.0 [facility] Comment on above: Performed By: #### C BCDF #### [place] [address] MCHC (RBC) [Mass/Vol] 33.9 g/dL Normal 32.0 - 36.0 [facility] Comment on above: Performed By: #### C BCDF #### [address] [address] MCV (RBC) [Entitic vol] 91 fL Normal 80 - 100 [facility] Comment on above: Performed By: #### C BCDF #### [address] [address] Monocytes (Bld) [#/Vol] 0.47 10*3/uL Normal 0.10 - 1.00 [facility] Comment on above: Performed By: #### C BCDF #### [address] [address] Monocytes/100 WBC (Bld) 6.4 % Normal 2.0 - 10.0 [facility] Comment on above: Performed By: #### C BCDF #### [address] [address] Neutrophils (Bld) [#/Vol] 4.16 10*3/uL Normal 1.20 - 7.70 [facility] Comment on above: Performed By: #### C BCDF #### [address] [address] Neutrophils/100 WBC (Bld) 57.1 % Normal 40.0 - 80.0 [facility] Comment on above: Performed By: #### C BCDF #### [address] [address] Platelets (Bld) [#/Vol] 310 10*3/uL Normal 150 - 450 [facility] Comment on above: Performed By: #### C BCDF #### [address] [address] RBC 4.26 x10E12/L Normal 4.00 - 5.20 [facility] Comment on above: Performed By: #### C BCDF #### [address] [address] WBC (Bld) [#/Vol] 7.3 10*3/uL Normal 4.4 - 11.3 [facility] Comment on above: Performed By: #### C BCDF #### [address] [address] COMPREHENSIVE PANELon 2022 Anion gap [Moles/Vol] 9 mmol/L Low 10 - 20 [facility] Comment on above: Performed By: #### B MP #### [address] [address] Chloride [Moles/Vol] 108 mmol/L High 98 - 107 [facility] Comment on above: Performed By: #### B MP #### [address] [address] HCO3 (Bld) [Moles/Vol] 25 mmol/L Normal 21 - 32 [facility] Comment on above: Performed By: #### B MP #### [address] [address] Potassium [Moles/Vol] 4.4 mmol/L Normal 3.5 - 5.3 [facility] Comment on above: Performed By: #### B MP #### [address] [address] Sodium [Moles/Vol] 138 mmol/L Normal 136 - 145 [facility] Comment on above: Performed By: #### B MP #### [address] [address] Albumin [Mass/Vol] 3.8 g/dL Normal 3.4 - 5.0 [facility] Comment on above: Performed By: #### B MP #### [address] [address] ALP [Catalytic activity/Vol] 55 U/L Normal 33 - 110 [facility] Comment on above: Performed By: #### B MP #### [address] [address] ALT [Catalytic activity/Vol] 11 U/L Normal 7 - 45 [facility] Comment on above: Result Comment: Risa ents treated with Sulfasalazine may generate falsely decreased results for ALT. Performed By: #### B MP #### [address] [address] AST [Catalytic activity/Vol] 13 U/L Normal 9 - 39 [facility] Comment on above: Performed By: #### B MP #### [address] [address] Bilirubin [Mass/Vol] 0.2 mg/dL Normal 0.0 - 1.2 [facility] Comment on above: Performed By: #### B MP #### [address] [address] Calcium [Mass/Vol] 8.3 mg/dL Low 8.6 - 10.3 [facility] [facility] Comment on above: Performed By: #### B MP #### [address] [address] Creatinine [Mass/Vol] 0.74 mg/dL Normal 0.50 - 1.05 [facility] Comment on above: Performed By: #### B MP #### [address] [address] eGFR FEMALE >90 Normal >90 [facility] Comment on above: Result Comment: CALC ULATIONS OF ESTIMATED GFR ARE PERFORMED USING THE 2020 CKD-EPI STUDY REFIT EQUATION WITHOUT THE RACE VARIABLE FOR THE IDMS-TRACEABLE CREATININE METHODS. https://jasn.asnjournals.org/content//ASN.044338 7074 Performed By: #### B MP #### [address] [address] Glucose [Mass/Vol] 88 mg/dL Normal 74 - 99 [facility] Comment on above: Performed By: #### B MP #### [address] [address] Protein [Mass/Vol] 5.6 g/dL Low 6.4 - 8.2 [facility] Comment on above: Performed By: #### B MP #### [place] [address] Urea nitrogen [Mass/Vol] 12 mg/dL Normal 6 - 23 [facility] Comment on above: Performed By: #### B MP #### [place] [address] HCG,URINEon 06-02-2022 Beta HCG ( test) Ql (U) Negative Normal Negative [facility] Comment on above: Performed By: #### H CGU #### [place] [address] LACTATEon 06-02-2022 Lactate [Moles/Vol] 0.8 mmol/L Normal 0.4 - 2.0 [facility] Comment on above: Result Comment: Jen puncture immediately after or during the administration of Metamizole may lead to falsely low results. Testing should be performed immediately prior to Metamizole dosing. Performed By: #### L ACT #### [place] [address] Provider Note - ED v3on 04-0 Provider Note - ED v3 Provider Note: Chart Review: HISTORY OF PRESENTING ILLNESS DB is a 52 year old Female and was seen by me at 02-Jun-2022 13:59 for a chief complaint of (left groin pain/ sciatica) . Other complaints include: Patient presents to the emergency department for evaluation of chronic low back pain with worsening yesterday after moving a washer. She states that she was pivoting and turning when she moved the washer and got a worsening pain in her left facet area. now the pain is wrapping around to her left lower quadrant and groin area. Patient had inguinal hernia repair in March and has concern for it having ruptured. She has a history of chronic low back pain with recent MRI showing herniated disc. She states that she has issues with incontinence and subjective leg weakness. She denies any associated incontinence, urinary retention, foot drop or ataxia since her injury. She has not had saddle anesthesia, dysuria, hematuria or forking of her urine and she denies a history of pyelonephritis or renal lithiasis. She has had a uterine ablation and has no concern for or STI. There is been no associated fever, chills, syncope, chest pain, shortness of breath, nausea, vomiting, diarrhea but she has been constipated the last 2 days. her pain is aggravated by movement and unalleviated. Her symptoms are moderate to severe in severity and persistent in nature.. The historian is the patient. Triage Information: Most recent Vital Sign Value Date Temp (F): 98.6 06-02-2022 13:52 Temp (C): 37 06-02-2022 13:52 Heart Rate (beats/min): 87 06-02-2022 13:52 BP Systolic (mm Hg): 112 06-02-2022 13:52 BP Diastolic (mm Hg): 82 06-02-2022 13:52 PAST MEDICAL HISTORY CURRENT OR FORMER SUBSTANCE USE: Tobacco/Nicotine Use: moderate user (uses 11-30 cig/day, OR 0.5-1.5 ppd, OR 2-3 cans/pouches loose leaf tobacco per week, OR 0.5-1.5 vape pods per day) Alcohol Use: occasionally Drug Use: occasionally (marijuana gummies, no IVDU),ALLERGIES/INTOLER ANCES: No Known Allergies HEALTH HISTORY: No documented data. OUTPATIENT MEDICATIONS: Home Medications Review Status for Reconciliation: Not Done Med Status: Patient Currently Takes Medications Drug Name: cyclobenzaprine 10 mg oral tablet Instructions: 1 tab(s) orally every 8 hours, As Needed Drug Name: predniSONE 50 mg oral tablet Instructions: 1 tab(s) orally once a day SIGNIFICANT EVENTS: No documented data. ADULT HEALTH CLINICAL NURSE SPECIALIST: Is : no REVIEW OF SYSTEMS All other systems reviewed and are negative PHYSICAL EXAM CONSTITUTIONAL: Well appearing, non-toxic and no apparent distress. HENMT: NC/NT. Nasal mucosa clear. External ears normal bilaterally. Oral mucosa pink and moist. Airway patent. EYES: Clear bilaterally, pupils equal without injection or drainage. CARDIOVASCULAR: Regular rate and rhythm. No murmurs. Strong distal pulse. RESPIRATORY: Lung sounds clear and equal bilaterally. No respiratory distress or conversational dyspnea. GASTROINTESTINAL: Active bowel sounds. Abdomen soft, non-distended, tenderness through the left flank and left lower quadrant into the groin. Laparoscopic sites are well-healed with no erythema or induration. There is no palpable abnormality in the left groin. No rebound, rigidity or pulsatile mass. GENITOURINARY: No CVA tenderness bilaterally or suprapubic tenderness. Pelvic exam deferred. MUSCULOSKELETAL: full range of motion of the neck with no midline vertebral tenderness through the cervical or thoracic spine. There is no outward sign of trauma the posterior torso. No ecchymosis or vesicular rash. She has diffuse tenderness through the mid to lower lumbar spine without step-off or crepitus. She has tenderness at the left SI joint and palpation of this area reproduces her back pain. She also has left lower lumbar paraspinal tenderness with appreciated muscle spasm. No bony tenderness to palpation of the iliac crests. Patient ambulates with a steady gait and no assistive device. Moves extremities randomly. Sensation intact. Neurovascularly intact. NEUROLOGICAL: Alert and oriented, no focal deficits, no motor or sensory deficits. Hand grasps, pushes, pulls strong and equal bilaterally. Her dorsiflexion and plantarflexion are weaker on the left 3/5. SKIN: Skin normal color for race, warm, dry and intact. Capillary refill <2 seconds. PSYCHIATRIC: Normal mood and affect. No apparent risk to self or others. CRITICAL CARE RESULTS: Recent Lab Results: I have reviewed these laboratory results: Urinalysis 02-Jun-2022 14:32:00 ResultValue Color, Urine Straw Reference Range: STRAW,YELLOW Appearance, Urine Clear Specific [place], Urine 1.005 pH, Urine 5.0 Protein, Urine Negative Glucose, Urine Negative Blood, Urine Negative Ketones, Urine Negative Bilirubin, Urine Negative Urobilinogen, Urine <2.0 Nitrite, Urine Negative Leukocyte Esterase, Urine Negative (more content not included)... Normal [facility] Triage - EDon 06-02-2022 Triage - ED Quick Triage: Are You no Have You Given In The Last 6 Weeksno Are You Currently Breastfeedingno The patient and/or guardian verbally acknowledges placement for services into the following (when Urgent Care Service hours are operating):emergency department Chart Review: ARRIVAL INFORMATION Mode of Arrival: private vehicle CHIEF COMPLAINT DB DOAN is a Female patient with a chief complaint of (left groin pain/ sciatica). Other Complaints: was lifting and moving heavy boxes yesterday Triage Date/Time: 02-Jun-2022 13:52 EDNA: 3V Vital Signs: Temperature: 98.6F ( 37.0C) taken temporal Blood Pressure: 112/82 Mean: Heart Rate: 87 Height: 5 feet 7.00 inches. 170.1 CM Weight: 138.8 pounds. Calculated 63.0 kg. (scale measurement) Calculated BMI (kg/m2): 21.773 Calculated BSA (m2) 1.73 Mary Coma Scale: Best Eye Response: (E4) spontaneous Best Motor Response: (M6) obeys commands Best Verbal Response: (V5) oriented Cassandra Score: 15 Cough lasting greater than 3 weeks: no Allergies: no Mask applied: yes Patient has homicidal thoughts: no Risk Screens Suicide Risk Screen In the Past Month: Have you wished you were or wished you could go to sleep and not wake up no In the Past Month: Have you had any actual thoughts of killing yourself no In Your Lifetime: Have you ever done anything, started to do anything, or prepared to do anything to end your life no Interventions: Weiner Fall Interventions: LOW INTERVENTIONS: *patient oriented to surroundings and call system, * patient/family falls education completed and documented, *patients fall status communicated during bedside handoff, *whiteboard updated, *mode of toileting discussed with patient, *bed in low position with brakes locked, *call light in reach, * non-skid footwear TRAVEL HISTORY Travel History Coronavirus Screening: no exposure or symptoms Travel Exposure History: NO travel to International locations in the past 30 days PAIN Pain Scale Used: SAMANTHA Past Medical History: Past Medical History Reviewedno Electronic Signatures: Anjana Yanez (NIK) (Signed 02-Jun-2022 13:56) Entered: Risk Screens, Pain, Travel History, Chart Review, Past Medical History Authored: Quick Triage, Risk Screens, Pain, Travel History, Chart Review, Past Medical History Last Updated: 02-Jun-2022 13:56 by Anjana Yanez (NIK) Normal [facility] URINALYSISon 06-02-2022 Appearance (U) Clear Normal CLEAR [facility] Comment on above: Performed By: #### B MP #### [address] [address] Bilirubin Ql (U) Negative Normal NEGATIVE [facility] /Tayo ge [facility] Comment on above: Performed By: #### B MP #### [address] [address] Color (U) Straw Normal STRAW,YELLOW [place] ge [facility] Comment on above: Performed By: #### B MP #### [address] [address] Glucose Ql (U) Negative Normal NEGATIVE [facility]/P diomedes [facility] Comment on above: Performed By: #### B MP #### [address] [address] Hemoglobin Ql (U) Negative Normal NEGATIVE [place]ayo ge [facility] Comment on above: Performed By: #### B MP #### [address] [address] Ketones Ql (U) Negative Normal NEGATIVE [facility] diomedes [facility] Comment on above: Performed By: #### B MP #### [address] [address] Leukocyte esterase Test strip Ql (U) Negative Normal NEGATIVE [facility] Comment on above: Performed By: #### B MP #### [address] [address] Nitrite Ql (U) Negative Normal NEGATIVE [facility]/P diomedes [facility] Comment on above: Performed By: #### B MP #### [address] [address] pH (U) 5.0 [pH] Normal 5.0 - 8.0 [facility] Comment on above: Performed By: #### B MP #### [address] [address] Protein Ql (U) Negative Normal NEGATIVE [facility]/P diomedes [facility] Comment on above: Performed By: #### B MP #### [address] [address] Specific gravity (U) [Rel density] 1.005 Normal 1.005 - 1.035 [place]o [facility] Comment on above: Performed By: #### B MP #### [facility] [address] [place] [address] Urobilinogen (U) [Mass/Vol] mg/dL Normal 0.0 - 1.9 [facility] Comment on above: Performed By: #### B MP #### [facility] [address] [place] [address] MRI LUMBAR SPINE WO CONTRAST on 03-22-2022 1. No fracture or brendan ny destructive lesion. 2. Disc bulges in the lower lumbar spine, associated with annular tears at L4-5 and L5-S1. 3. Mild neural foraminal stenoses at L4-5. 4. No significant central canal or lateral recess stenosis. RECOMMENDATIONS: Unavailable [facility] EXAMINATION: MRI OF THE LUMBAR SPINE WITHOUT CONTRAST, 03/22/2022 3:00 pm TECHNIQUE: Multiplanar multisequence MRI of the lumbar spine was performed without the administration of intravenous contrast. COMPARISON: None. HISTORY: ORDERING SYSTEM PROVIDED HISTORY: Sacroiliitis (HCC) FINDINGS: BONES/ALIGNMENT: There is normal alignment of the spine. The vertebral body heights are maintained. The bone marrow signal appears unremarkable. SPINAL CORD: The conus terminates normally. SOFT TISSUES: No paraspinal mass identified. L1-L2: There is no significant disc herniation, spinal canal stenosis or neural foraminal narrowing. L2-L3: There is no significant disc herniation, spinal canal stenosis or neural foraminal narrowing. L3-L4: Disc desiccation mild loss of disc height and a minimal disc bulge. No significant central canal, lateral recess or neural foraminal stenoses. L4-L5: Disc desiccation with a small disc bulge. Tiny annular tear in the posterior midline disc. Mild facet hypertrophy. No significant central canal or lateral recess stenosis. Mild neural foraminal stenoses. L5-S1: Disc desiccation with a small disc bulge. An annular tear is seen in the left neural foraminal segment of the disc. No significant central canal, lateral recess or neural foraminal stenoses. [facility] Nina Patel MD - 03/22/2022 EXAMINATION: MRI OF THE LUMBAR SPINE WITHOUT CONTRAST, 03/22/2022 3:00 pm TECHNIQUE: Multiplanar multisequence MRI of the lumbar spine was performed without the administration of intravenous contrast. COMPARISON: None. HISTORY: ORDERING SYSTEM PROVIDED HISTORY: Sacroiliitis (HCC) FINDINGS: BONES/ALIGNMENT: There is normal alignment of the spine. The vertebral body heights are maintained. The bone marrow signal appears unremarkable. SPINAL CORD: The conus terminates normally. SOFT TISSUES: No paraspinal mass identified. L1-L2: There is no significant disc herniation, spinal canal stenosis or neural foraminal narrowing. L2-L3: There is no significant disc herniation, spinal canal stenosis or neural foraminal narrowing. L3-L4: Disc desiccation mild loss of disc height and a minimal disc bulge. No significant central canal, lateral recess or neural foraminal stenoses. L4-L5: Disc desiccation with a small disc bulge. Tiny annular tear in the posterior midline disc. Mild facet hypertrophy. No significant central canal or lateral recess stenosis. Mild neural foraminal stenoses. L5-S1: Disc desiccation with a small disc bulge. An annular tear is seen in the left neural foraminal segment of the disc. No significant central canal, lateral recess or neural foraminal stenoses. IMPRESSION: 1. No fracture or bony destructive lesion. 2. Disc bulges in the lower lumbar spine, associated with annular tears at L4-5 and L5-S1. 3. Mild neural foraminal stenoses at L4-5. 4. No significant central canal or lateral recess stenosis. RECOMMENDATIONS: Unavailable [employer] Phone: Radiology Study observation (narrative) [employer] Phone: MRI LUMBAR SPINE WO CONTRAST Ordered By: Nina Patel on 03-22-2022 [employer] Phone: No Panel Informationon 03-[address] of the [address] st with atelectasis in the right middle lobe and lingula. The previously described mass in the left supraclavicular region is not identified with persistent small lymph nodes in the axilla. Continued surveillance recommend. There is slight limitation to the study since the lung apex and supraclavicular region are somewhat incompletely included. There is no acute inflammation, bowel obstruction or obstructive uropathy in the abdomen pelvis. Distended gallbladder. Consider ultrasonography [facility] EXAMINATION: CT OF THE CHEST WITHOUT CONTRAST; CT OF THE ABDOMEN AND PELVIS WITH AND WITHOUT CONTRAST 03/22/2022 2:16 pm TECHNIQUE: CT of the chest was performed without the administration of intravenous contrast. Multiplanar reformatted images are provided for review. Automated exposure control, iterative reconstruction, and/or weight based adjustment of the mA/kV was utilized to reduce the radiation dose to as low as reasonably achievable.; CT of the abdomen and pelvis was performed with and without the administration of intravenous contrast. Multiplanar reformatted images are provided for review. Automated exposure control, iterative reconstruction, and/or weight based adjustment of the mA/kV was utilized to reduce the radiation dose to as low as reasonably achievable. COMPARISON: June 28, 2021 HISTORY: ORDERING SYSTEM PROVIDED HISTORY: Lung mass FINDINGS: The left lung apex is incompletely included in the study. The heart and the great vessels are normal. Trachea and major bronchi are patent. There are no enlarged mediastinal or hilar adenopathy. There is emphysema. There is slightly progressive atelectasis in the right middle lobe and lingula with mild bronchiectasis. There is no focal consolidation or pleural effusion. The previously described of mass in the left supraclavicular region is not identified with persistent small axillary lymph nodes. CT abdomen and pelvis. The liver is of normal architecture. Gallbladder is partially distended. Consider ultrasonography. nonenlarged lymph nodes are identified in the portacaval region. Spleen, pancreas, the adrenals and the kidneys are normal. Pelvis. Bladder is contracted with mild wall thickening. There is constipation. The appendix is normal. [facility] Wilmer Sky MD - 03/22/2022 EXAMINATION: CT OF THE CHEST WITHOUT CONTRAST; CT OF THE ABDOMEN AND PELVIS WITH AND WITHOUT CONTRAST 03/22/2022 2:16 pm TECHNIQUE: CT of the chest was performed without the administration of intravenous contrast. Multiplanar reformatted images are provided for review. Automated exposure control, iterative reconstruction, and/or weight based adjustment of the mA/kV was utilized to reduce the radiation dose to as low as reasonably achievable.; CT of the abdomen and pelvis was performed with and without the administration of intravenous contrast. Multiplanar reformatted images are provided for review. Automated exposure control, iterative reconstruction, and/or weight based adjustment of the mA/kV was utilized to reduce the radiation dose to as low as reasonably achievable. COMPARISON: June 28, 2021 HISTORY: ORDERING SYSTEM PROVIDED HISTORY: Lung mass FINDINGS: The left lung apex is incompletely included in the study. The heart and the great vessels are normal. Trachea and major bronchi are patent. There are no enlarged mediastinal or hilar adenopathy. There is emphysema. There is slightly progressive atelectasis in the right middle lobe and lingula with mild bronchiectasis. There is no focal consolidation or pleural effusion. The previously described of mass in the left supraclavicular region is not identified with persistent small axillary lymph nodes. CT abdomen and pelvis. The liver is of normal architecture. Gallbladder is partially distended. Consider ultrasonography. nonenlarged lymph nodes are identified in the portacaval region. Spleen, pancreas, the adrenals and the kidneys are normal. Pelvis. Bladder is contracted with mild wall thickening. There is constipation. The appendix is normal. IMPRESSION: Stable CT of the chest with atelectasis in the right middle lobe and lingula. The previously described mass in the left supraclavicular region is not identified with persistent small lymph nodes in the axilla. Continued surveillance recommend. There is slight limitation to the study since the lung apex and supraclavicular region are somewhat incompletely included. There is no acute inflammation, bowel obstruction or obstructive uropathy in the abdomen pelvis. Distended gallbladder. Consider ultrasonography [employer] Phone: Radiology Study observation (narrative) [employer] Phone: No Panel InformationOrdered By: Wilmer Sky on 03-22-2022 [employer] Phone: XR CHEST (2 VW)on 03-22-2022 No acute process. Specifically, there is no right pleural effusion [facility] EXAMINATION: TWO XRAY VIEWS OF THE CHEST 03/22/2022 2:13 pm COMPARISON: None. HISTORY: ORDERING SYSTEM PROVIDED HISTORY: Chronic bronchitis, unspecified chronic bronchitis type (HCC) FINDINGS: The lungs are without acute focal process. There is no effusion or pneumothorax. The cardiomediastinal silhouette is without acute process. The osseous structures are without acute process. [facility] Wilmer Wray MD - 03/22/2022 EXAMINATION: TWO XRAY VIEWS OF THE CHEST 03/22/2022 2:13 pm COMPARISON: None. HISTORY: ORDERING SYSTEM PROVIDED HISTORY: Chronic bronchitis, unspecified chronic bronchitis type (HCC) FINDINGS: The lungs are without acute focal process. There is no effusion or pneumothorax. The cardiomediastinal silhouette is without acute process. The osseous structures are without acute process. IMPRESSION: No acute process. Specifically, there is no right pleural effusion [employer] Phone: Radiology Study observation (narrative) [employer] Phone: XR CHEST (2 VW)Ordered By: Carolann Wray on 03-22-2022 [employer] Phone: XR PELVIS (1-2 VIEWS)on 09-02 Unremarkable pelvis. [facility] EXAMINATION: ONE XRAY VIEW OF THE PELVIS 09/28/2021 1:04 pm COMPARISON: 11 December 2018 HISTORY: ORDERING SYSTEM PROVIDED HISTORY: Other osteoarthritis involving multiple joints FINDINGS: No significant hip or SI joint arthropathy. No fracture or dislocation. Normal soft tissues. [facility] Shruthi Johnson MD - 09/28/2021 EXAMINATION: ONE XRAY VIEW OF THE PELVIS 09/28/2021 1:04 pm COMPARISON: 11 December 2018 HISTORY: ORDERING SYSTEM PROVIDED HISTORY: Other osteoarthritis involving multiple joints FINDINGS: No significant hip or SI joint arthropathy. No fracture or dislocation. Normal soft tissues. IMPRESSION: Unremarkable pelvis. [employer] Phone: Radiology Study observation (narrative) [employer] Phone: XR PELVIS (1-2 VIEWS)Ordered By: Shruthi Johnson on 09-28-2021 [employer] Phone: US HEAD NECK SOFT TISSUE THY ROIDOrdered By: Umer Adams on 07-26-2020 Palpable lumps in th e left supraclavicular region appear to correspond to several morphologically normal appearing lymph nodes. The cortices of these lymph nodes are not thickened. (Given the maintained morphology and normal cortical thickness, these lymph nodes are possibly reactive given the recent history of vaccination.) RECOMMENDATIONS: Recommend follow-up superficial ultrasound in 8-10 weeks to reassess. [employer] Phone: EXAMINATION: Superficial neck ULTRASOUND 07/26/2020 COMPARISON: None. HISTORY: ORDERING SYSTEM PROVIDED HISTORY: Supraclavicular adenopathy TECHNOLOGIST PROVIDED HISTORY: What reading provider will be dictating this exam?->CRC FINDINGS: Superficial sonographic evaluation of the left supraclavicular mass was performed using a combination of grayscale and color Doppler technique. In the left supraclavicular region there is a superficial lymph node which measures 1.4 x 0.5 x 0.6 cm. This maintains a reniform shape with a fatty hilum. The cortex measures just under 2 mm. In the region of the above lymph node, there appears to be a 2nd lymph node which is somewhat hyperechoic measuring 1.1 x 1.7 x 0.7 cm. The cortex of this lymph node is 2.4 mm. No fluid collections identified. The surrounding soft tissues are unremarkable. [employer] Phone: Tristin, Mhy Incoming Radiant Results From [employer] - 07/26/2020 5:37 PM EDT EXAMINATION: Superficial neck ULTRASOUND 07/26/2020 COMPARISON: None. HISTORY: ORDERING SYSTEM PROVIDED HISTORY: Supraclavicular adenopathy TECHNOLOGIST PROVIDED HISTORY: What reading provider will be dictating this exam?->CRC FINDINGS: Superficial sonographic evaluation of the left supraclavicular mass was performed using a combination of grayscale and color Doppler technique. In the left supraclavicular region there is a superficial lymph node which measures 1.4 x 0.5 x 0.6 cm. This maintains a reniform shape with a fatty hilum. The cortex measures just under 2 mm. In the region of the above lymph node, there appears to be a 2nd lymph node which is somewhat hyperechoic measuring 1.1 x 1.7 x 0.7 cm. The cortex of this lymph node is 2.4 mm. No fluid collections identified. The surrounding soft tissues are unremarkable. IMPRESSION: Palpable lumps in the left supraclavicular region appear to correspond to several morphologically normal appearing lymph nodes. The cortices of these lymph nodes are not thickened. (Given the maintained morphology and normal cortical thickness, these lymph nodes are possibly reactive given the recent history of vaccination.) RECOMMENDATIONS: Recommend follow-up superficial ultrasound in 8-10 weeks to reassess. [employer] Phone: [employer] Phone: Basic Metabolic Panel w/ Ref luke to MGOrdered By: Jai Ellis on 07-01-2020 Anion gap [Moles/Vol] 9 mmol/L 7 - 16 mmol/L [employer] Phone: Calcium [Mass/Vol] 8.3 mg/dL Low 8.6 - 10. 2 mg/dL [employer] Phone: Chloride [Moles/Vol] 101 mmol/L 98 - 10 7 mmol/L [employer] Phone: CO2 [Moles/Vol] 24 mmol/L 22 - 29 mmol/L [employer] Phone: Creatinine [Mass/Vol] 0.6 mg/dL 0.5 - 1.0 mg/dL [employer] Phone: GFR >60 [employer] Phone: GFR Non- >60 >=60 mL/min/1.73 [employer] Phone: Comment on above: Chronic Kidney Disea se: less than 60 ml/min/1.73 sq.m. Kidney Failure: less than 15 ml/min/1.73 sq.m. Results valid for patients 18 years and older. Glucose [Mass/Vol] 89 mg/dL 74 - 99 mg/dL [employer] Phone: Interpretation and review of laboratory results Abnormal [employer] Phone: Potassium [Moles/Vol] 4.3 mmol/L 3.5 - 5.0 mmol/L [employer] Phone: Sodium [Moles/Vol] 134 mmol/L 132 - 146 mmol/L [employer] Phone: Urea nitrogen (BldV) [Mass/Vol] 7 mg/dL 6 - 20 mg/dL [employer] Phone: CBCOrdered By: Jia weaver on 07-01-2020 Hematocrit (Bld) [Volume fraction] 33.6 % Low 34.0 - 48.0 % [employer] Phone: Hemoglobin.gastrointe stinal spec 1 Ql (Stl) 11.7 g/dL 11.5 - 15.5 g/dL [employer] Phone: Interpretation and review of laboratory results Abnormal [employer] Phone: MCH (RBC) [Entitic mass] 32.2 pg 26.0 - 35.0 pg [employer] Phone: MCHC (RBC) [Mass/Vol] 34.8 % High 32.0 - 34.5 % [employer] Phone: MCV (RBC) [Entitic vol] 92.6 fL 80.0 - 99.9 fL [employer] Phone: Platelet distribution width (Bld) [Ratio] 12.1 fL 11.5 - 15.0 fL [employer] Phone: Platelet mean volume (Bld) [Entitic vol] 8.7 fL 7.0 - 12.0 fL [employer] Phone: Platelets (Bld) [#/Vol] 258 10*3/uL [employer] Phone: RBC (Bld) [#/Vol] 3.63 10*6/uL [employer] Phone: WBC (Bld) [#/Vol] 3.8 10*3/uL Low [employer] Phone: CBC Auto DifferentialOrdered By: Sigrid Forbes on 06-30-2020 Basophils (Bld) [#/Vol] 0.03 10*3/uL [employer] Phone: Basophils/100 WBC (Bld) 0.7 % 0.0 - 2.0 % [employer] Phone: Eosinophils Absolute 0.15 [employer] Phone: Eosinophils/100 WBC (Bld) 3.5 % 0.0 - 6.0 % [employer] Phone: Hematocrit (Bld) [Volume fraction] 38.1 % 34.0 - 48.0 % [employer] Phone: Hemoglobin.gastrointe stinal spec 1 Ql (Stl) 13.4 g/dL 11.5 - 15.5 g/dL [employer] Phone: Immature Granulocytes # 0.01 E9/L [employer] Phone: Immature granulocytes/100 WBC (Bld) 0.2 % 0.0 - 5.0 % [employer] Phone: Interpretation and review of laboratory results Abnormal [employer] Phone: Lymphocytes Absolute 1.24 Low [employer] Phone: Lymphocytes/100 WBC (Bld) 28.8 % 20.0 - 42.0 % [employer] Phone: MCH (RBC) [Entitic mass] 32.6 pg 26.0 - 35.0 pg [employer] Phone: MCHC (RBC) [Mass/Vol] 35.2 % High 32.0 - 34.5 % [employer] Phone: MCV (RBC) [Entitic vol] 92.7 fL 80.0 - 99.9 fL [employer] Phone: Monocytes Absolute 0.35 [employer] Phone: Monocytes/100 WBC (Bld) 8.1 % 2.0 - 12.0 % [employer] Phone: Neutrophils Absolute 2.53 [employer] Phone: Neutrophils/100 WBC (Bld) 58.7 % 43.0 - 80.0 % [employer] Phone: Platelet distribution width (Bld) [Ratio] 12.3 fL 11.5 - 15.0 fL [employer] Phone: Platelet mean volume (Bld) [Entitic vol] 8.6 fL 7.0 - 12.0 fL [employer] Phone: Platelets (Bld) [#/Vol] 251 10*3/uL [employer] Phone: RBC (Bld) [#/Vol] 4.11 10*6/uL [employer] Phone: WBC (Bld) [#/Vol] 4.3 10*3/uL Low [employer] Phone: CT CHEST W CONTRASTOrdered B y: Sigrid Forbes on 06-30-2020 An asymmetric soft tissue mass in the left supraclavicular region which is vascular enhancing which is worrisome for malignancy. Adjacent left axillary lymph nodes are noted. Further assessment by PET-CT scan and or MRI is recommended. Tissue sampling may be indicated. [employer] Phone: EXAMINATION: CT OF T HE CHEST WITH CONTRAST 06/30/2020 5:02 pm TECHNIQUE: CT of the chest was performed with the administration of intravenous contrast. Multiplanar reformatted images are provided for review. Dose modulation, iterative reconstruction, and/or weight based adjustment of the mA/kV was utilized to reduce the radiation dose to as low as reasonably achievable. COMPARISON: Previous CT scan 01/07/2019 HISTORY: ORDERING SYSTEM PROVIDED HISTORY: left subclavicular lymphadenopathy TECHNOLOGIST PROVIDED HISTORY: Reason for exam:->left subclavicular lymphadenopathy Decision Support Exception - unselect if not a suspected or confirmed emergency medical condition->Emergency Medical Condition (MA) FINDINGS: Heart and the great vessels are normal. The trachea and major bronchi are patent. Nonenlarged mediastinal lymph nodes are present. There is mild COPD with scarring in the lung apices, right middle lobe, and lingula. There is no focal consolidation or pleural effusion. Liver is of normal architecture. An asymmetric soft tissue mass measuring 4.4 x 4.7 cm is identified in the left supraclavicular region anterior to the distal clavicle/AC joint which is vascular and enhancing. Moderately enlarged lymph nodes in the left axilla measuring up to 1.1 cm are identified. [facility] Phone: Tristin, Mhy Incoming Radiant Results From [employer] - 06/30/2020 5:58 PM EDT EXAMINATION: CT OF THE CHEST WITH CONTRAST 06/30/2020 5:02 pm TECHNIQUE: CT of the chest was performed with the administration of intravenous contrast. Multiplanar reformatted images are provided for review. Dose modulation, iterative reconstruction, and/or weight based adjustment of the mA/kV was utilized to reduce the radiation dose to as low as reasonably achievable. COMPARISON: Previous CT scan 01/07/2019 HISTORY: ORDERING SYSTEM PROVIDED HISTORY: left subclavicular lymphadenopathy TECHNOLOGIST PROVIDED HISTORY: Reason for exam:->left subclavicular lymphadenopathy Decision Support Exception - unselect if not a suspected or confirmed emergency medical condition->Emergency Medical Condition (MA) FINDINGS: Heart and the great vessels are normal. The trachea and major bronchi are patent. Nonenlarged mediastinal lymph nodes are present. There is mild COPD with scarring in the lung apices, right middle lobe, and lingula. There is no focal consolidation or pleural effusion. Liver is of normal architecture. An asymmetric soft tissue mass measuring 4.4 x 4.7 cm is identified in the left supraclavicular region anterior to the distal clavicle/AC joint which is vascular and enhancing. Moderately enlarged lymph nodes in the left axilla measuring up to 1.1 cm are identified. IMPRESSION: An asymmetric soft tissue mass in the left supraclavicular region which is vascular enhancing which is worrisome for malignancy. Adjacent left axillary lymph nodes are noted. Further assessment by PET-CT scan and or MRI is recommended. Tissue sampling may be indicated. [facility] Phone: Comprehensive Metabolic Pane l w/ Reflex to MGOrdered By: Sigrid Forbes on 06-30-2020 Albumin [Mass/Vol] 4.3 g/dL 3.5 - 5.2 g/dL [employer] Phone: ALP (Bld) [Catalytic activity/Vol] 61 U/L 35 - 104 U/L [employer] Phone: ALT [Catalytic activity/Vol] 16 U/L 0 - 32 U/L [employer] Phone: Anion gap [Moles/Vol] 10 mmol/L 7 - 16 mmol/L [employer] Phone: AST [Catalytic activity/Vol] 26 U/L 0 - 31 U/L [employer] Phone: Comment on above: Specimen is moderate ly Hemolyzed. Result may be artificially increased. Bilirubin [Mass/Vol] 0.2 mg/dL 0.0 - 1 .2 mg/dL [employer] Phone: Calcium [Mass/Vol] 9.2 mg/dL 8.6 - 10. 2 mg/dL [employer] Phone: Chloride [Moles/Vol] 100 mmol/L 98 - 10 7 mmol/L [employer] Phone: CO2 [Moles/Vol] 26 mmol/L 22 - 29 mmol/L [employer] Phone: Creatinine [Mass/Vol] 0.7 mg/dL 0.5 - 1.0 mg/dL [employer] Phone: Free PSA/Total PSA [Mass fraction] 7.2 g/dL 6.4 - 8.3 g/dL [employer] Phone: GFR >60 [employer] Phone: GFR Non- >60 >=60 mL/min/1.73 [employer] Phone: Comment on above: Chronic Kidney Disea se: less than 60 ml/min/1.73 sq.m. Kidney Failure: less than 15 ml/min/1.73 sq.m. Results valid for patients 18 years and older. Glucose [Mass/Vol] 90 mg/dL 74 - 99 mg/dL [facility] Phone: Potassium [Moles/Vol] 5.0 mmol/L 3.5 - 5.0 mmol/L [employer] Phone: Comment on above: Specimen is moderate ly Hemolyzed. Result may be artificially increased. Sodium [Moles/Vol] 136 mmol/L 132 - 146 mmol/L [employer] Phone: Urea nitrogen (BldV) [Mass/Vol] 7 mg/dL 6 - 20 mg/dL [employer] Phone: ANAon 12-01-2019 Nuclear Ab IF (S) [Titer] Negative NEGATIVE [place] Comment on above: NEGATIVE: <=16 years <1:10 >16 years <1:40 Test done by Indirect fluorescent antibody (HEp-2). Lipid Panelon 12-01-2019 Cholesterol [Mass/Vol] 283 mg/dL High 0 - 199 mg/dL [place] Cholesterol in HDL [Mass/Vol] 66 mg/dL >40 [place] Cholesterol in LDL [Mass/Vol] 168 mg/dL High 0 - 99 mg/dL [place] Interpretation and review of laboratory results Abnormal [place] Triglyceride [Mass/Vol] 244 mg/dL High 0 - 149 mg/dL [place] VLDL Cholesterol Calculated 49 mg/dL [place] Sedimentation Rateon 020 Sed Rate 5 [place] C-Reactive Proteinon 020 CRP [Mass/Vol] mg/L 0 - 0.4 mg/dL [place] Rheumatoid Factoron 11-30-19 20 Rheumatoid Factor 10 [place], [place] CBC Auto Differentialon - Basophils (Bld) [#/Vol] 0.04 10*3/uL [place] Basophils/100 WBC (Bld) 0.6 % 0 - 2 % [place] Eosinophils (Bld) [#/Vol] 0.23 10*3/uL [place] Eosinophils/100 WBC (Bld) 3.7 % 0 - 6 % [place] Erythrocyte distribution width (RBC) [Ratio] 13.0 fL 11.5 - 15 fL [place] Hematocrit (Bld) [Volume fraction] 40.3 % 34 - 48 % [place] Hemoglobin (Bld) [Mass/Vol] 13.1 g/dL 11.5 - 15.5 g/dL [place] Immature granulocytes (Bld) [#/Vol] 0.02 10*3/uL E9/L [place] Immature granulocytes/100 WBC (Bld) 0.3 % 0 - 5 % [place] Lymphocytes (Bld) [#/Vol] 2.08 10*3/uL [place] Lymphocytes/100 WBC (Bld) 33.2 % 20 - 42 % [place] MCH (RBC) [Entitic mass] 31.2 pg 26 - 35 pg [place] MCHC (RBC) [Mass/Vol] 32.5 % 32 - 34.5 % [place] MCV (RBC) [Entitic vol] 96.0 fL 80 - 99.9 fL [place] Monocytes (Bld) [#/Vol] 0.57 10*3/uL [place] Monocytes/100 WBC (Bld) 9.1 % 2 - 12 % [place] Neutrophils Absolute 3.32 [place] Neutrophils/100 WBC (Bld) 53.1 % 43 - 80 % [place] Platelet mean volume (Bld) [Entitic vol] 8.8 fL 7 - 12 fL [place] Platelets (Bld) [#/Vol] 343 10*3/uL [place] RBC (Bld) [#/Vol] 4.20 10*6/uL [place] WBC (Bld) [#/Vol] 6.3 10*3/uL [place] Comprehensive Metabolic Pane walt 07-30-2019 Albumin [Mass/Vol] 4.6 g/dL 3.5 - 5.2 g/dL [place] ALP [Catalytic activity/Vol] 50 U/L 35 - 104 U/L [place] ALT [Catalytic activity/Vol] 10 U/L 0 - 32 U/L [place] Anion gap [Moles/Vol] 20 mmol/L High 7 - 16 mmol/L [place] AST [Catalytic activity/Vol] 14 U/L 0 - 31 U/L [place] Bilirubin Ql (U) 0.3 mg/dL 0 - 1.2 mg/dL [place] Calcium [Mass/Vol] 9.8 mg/dL 8.6 - 10. 2 mg/dL [place] Chloride [Moles/Vol] 103 mmol/L 98 - 10 7 mmol/L [place] CO2 [Moles/Vol] 19 mmol/L Low 22 - 29 mmol/L [place] Creatinine [Mass/Vol] 0.8 mg/dL 0.5 - 1 mg/dL [place] GFR >60 [place] GFR Non- >60 >=60 mL/min/1.73 [place] Comment on above: Chronic Kidney Disea se: less than 60 ml/min/1.73 sq.m. Kidney Failure: less than 15 ml/min/1.73 sq.m. Results valid for patients 18 years and older. Glucose [Mass/Vol] 96 mg/dL 74 - 99 mg/dL [place] Interpretation and review of laboratory results Abnormal [place] Potassium [Moles/Vol] 4.5 mmol/L 3.5 - 5 mmol/L [place] Protein [Mass/Vol] 7.3 g/dL 6.4 - 8.3 g/dL [place] Sodium [Moles/Vol] 142 mmol/L 132 - 146 mmol/L [place] Urea nitrogen [Mass/Vol] 10 mg/dL 6 - 20 mg/dL [place] Hemoglobin A1Con 07-30-2019 HbA1c (Bld) [Mass fraction] 4.8 % 4 - 5.6 % [place] TSH without Reflexon 020 TSH Qn 0.692 m[IU]/L [place] Fluoro For Surgical Procedur esOrdered By: Khoa Gallagher on 03-17-2019 Radiology exam is complete. No Radiologist dictation. Please follow up with ordering provider. [facility] [employer] Work Phone: Fluoro For Surgical Procedur eson 02-02-2019 Radiology exam is complete. No Radiologist dictation. Please follow up with ordering provider. [place] CBC Auto Differentialon Basophils (Bld) [#/Vol] 0.02 10*3/uL [place] Basophils/100 WBC (Bld) 0.2 % 0 - 2 % [place] Eosinophils (Bld) [#/Vol] 0.04 10*3/uL Low [place] Eosinophils/100 WBC (Bld) 0.5 % 0 - 6 % [place] Erythrocyte distribution width (RBC) [Ratio] 11.8 fL 11.5 - 15 fL [place] Hematocrit (Bld) [Volume fraction] 39.7 % 34 - 48 % [place] Hemoglobin (Bld) [Mass/Vol] 13.4 g/dL 11.5 - 15.5 g/dL [place] Immature granulocytes (Bld) [#/Vol] 0.03 10*3/uL E9/L [place] Immature granulocytes/100 WBC (Bld) 0.3 % 0 - 5 % [place] Interpretation and review of laboratory results Abnormal [place] Lymphocytes (Bld) [#/Vol] 2.22 10*3/uL [place] Lymphocytes/100 WBC (Bld) 25.5 % 20 - 42 % [place] MCH (RBC) [Entitic mass] 30.7 pg 26 - 35 pg [place] MCHC (RBC) [Mass/Vol] 33.8 % 32 - 34.5 % [place] MCV (RBC) [Entitic vol] 91.1 fL 80 - 99.9 fL [place] Monocytes (Bld) [#/Vol] 0.55 10*3/uL [place] Monocytes/100 WBC (Bld) 6.3 % 2 - 12 % [place] Neutrophils Absolute 5.86 [place] Neutrophils/100 WBC (Bld) 67.2 % 43 - 80 % [place] Platelet mean volume (Bld) [Entitic vol] 8.2 fL 7 - 12 fL [place] Platelets (Bld) [#/Vol] 299 10*3/uL [place] RBC (Bld) [#/Vol] 4.36 10*6/uL [place] WBC (Bld) [#/Vol] 8.7 10*3/uL [place] CT CHEST W WO CONTRASTon Scattered bilateral parenchymal scars. No acute intrathoracic process is noted [place] Patient 9 : 1970 Age: 48 years Gender: Female Order Date: 01/07/2019 9:11 AM EXAM: CT CHEST W WO CONTRAST Dosage: 1183.6 mGY-cm Contrast: 90 mL Isovue-370 INDICATION: R07.9 Chest pain, unspecified type COMPARISON: None FINDINGS: There is some areas of scarring in the lingula and left lower lobe. There is scarring in the right middle lobe and lower lobe. There are no definite infiltrates, effusions or lung nodules. No vascular plaque is noted. No definite pulmonary emboli are identified. Visualized upper abdomen is normal. [place] Tristin, Mhy Incoming Radiant Results From [employer] - 01/07/2019 10:43 AM EST Patient : 1970 Age: 48 years Gender: Female Order Date: 01/07/2019 9:11 AM EXAM: CT CHEST W WO CONTRAST Dosage: 1183.6 mGY-cm Contrast: 90 mL Isovue-370 INDICATION: R07.9 Chest pain, unspecified type COMPARISON: None FINDINGS: There is some areas of scarring in the lingula and left lower lobe. There is scarring in the right middle lobe and lower lobe. There are no definite infiltrates, effusions or lung nodules. No vascular plaque is noted. No definite pulmonary emboli are identified. Visualized upper abdomen is normal. IMPRESSION: Scattered bilateral parenchymal scars. No acute intrathoracic process is noted [place] Comprehensive Metabolic Pane walt 01-07-2019 Albumin [Mass/Vol] 4.3 g/dL 3.5 - 5.2 g/dL [place] ALP [Catalytic activity/Vol] 59 U/L 35 - 104 U/L [place] ALT [Catalytic activity/Vol] 15 U/L 0 - 32 U/L [place] Anion gap [Moles/Vol] 14 mmol/L 7 - 16 mmol/L [place] AST [Catalytic activity/Vol] 17 U/L 0 - 31 U/L [place] Bilirubin Ql (U) 0.5 mg/dL 0 - 1.2 mg/dL [place] Calcium [Mass/Vol] 9.3 mg/dL 8.6 - 10. 2 mg/dL [place] Chloride [Moles/Vol] 102 mmol/L 98 - 10 7 mmol/L [place] CO2 [Moles/Vol] 23 mmol/L 22 - 29 mmol/L [place] Creatinine [Mass/Vol] 0.7 mg/dL 0.5 - 1 mg/dL [place] GFR >60 [place] GFR Non- >60 >=60 mL/min/1.73 [place] Comment on above: Chronic Kidney Disea se: less than 60 ml/min/1.73 sq.m. Kidney Failure: less than 15 ml/min/1.73 sq.m. Results valid for patients 18 years and older. Glucose [Mass/Vol] 91 mg/dL 74 - 99 mg/dL [place] Potassium [Moles/Vol] 4.1 mmol/L 3.5 - 5 mmol/L [place] Protein [Mass/Vol] 7.3 g/dL 6.4 - 8.3 g/dL [place] Sodium [Moles/Vol] 139 mmol/L 132 - 146 mmol/L [place] Urea nitrogen [Mass/Vol] 6 mg/dL 6 - 20 mg/dL [place] Hemoglobin A1Con 01-07-2019 HbA1c (Bld) [Mass fraction] 4.8 % 4 - 5.6 % [place] Lipid Panelon 01-07-2019 Cholesterol [Mass/Vol] 231 mg/dL High 0 - 199 mg/dL [place] Cholesterol in HDL [Mass/Vol] 70 mg/dL >40 [place] Cholesterol in LDL [Mass/Vol] 137 mg/dL High 0 - 99 mg/dL [place] Interpretation and review of laboratory results Abnormal [place] Triglyceride [Mass/Vol] 118 mg/dL 0 - 149 mg/dL [place] VLDL Cholesterol Calculated 24 mg/dL [place] MRI Lumbar Spine WO Contrast on 01-07-2019 1. Mild disc degenerative changes, with associated annular tears at L4-5 and L5-S1. 2. No significant central canal, lateral recess or neural foraminal stenoses. [place] Patient 9 : 1970 Age: 48 years Gender: Female Order Date: 01/07/2019 9:09 AM Exam: MRI LUMBAR SPINE WO CONTRAST Number of Images: views Indication: M51.36 DDD (degenerative disc disease), lumbar Comparison: None. Findings: : No fracture or joint dislocation. No bony destructive lesion. No marrow signal abnormality. The conus medullaris is unremarkable at the level of L1. L1-2: Unremarkable. L2-3: Unremarkable. L3-4: Minimal disc desiccation with minimal bulging. No significant central canal, lateral recess or neural foraminal stenoses. L4-5: Tiny posterior disc protrusion with annular tear. Mild facet hypertrophy. No significant central canal, lateral recess or neural foraminal stenoses. L5-S1: Minimal disc protrusion with associated annular tear in the left neural foramina. No significant central canal, lateral recess or neural foraminal stenoses. [facility] [place] Tristin, Mhy Incoming Radiant Results From [employer] - 01/09/2019 3:32 PM EST Patient : 1970 Age: 48 years Gender: Female Order Date: 01/07/2019 9:09 AM Exam: MRI LUMBAR SPINE WO CONTRAST Number of Images: views Indication: M51.36 DDD (degenerative disc disease), lumbar Comparison: None. Findings: : No fracture or joint dislocation. No bony destructive lesion. No marrow signal abnormality. The conus medullaris is unremarkable at the level of L1. L1-2: Unremarkable. L2-3: Unremarkable. L3-4: Minimal disc desiccation with minimal bulging. No significant central canal, lateral recess or neural foraminal stenoses. L4-5: Tiny posterior disc protrusion with annular tear. Mild facet hypertrophy. No significant central canal, lateral recess or neural foraminal stenoses. L5-S1: Minimal disc protrusion with associated annular tear in the left neural foramina. No significant central canal, lateral recess or neural foraminal stenoses. IMPRESSION: 1. Mild disc degenerative changes, with associated annular tears at L4-5 and L5-S1. 2. No significant central canal, lateral recess or neural foraminal stenoses. [place] TSH without Reflexon 019 TSH Qn 0.900 m[IU]/L [place] XR CHEST STANDARD (2 VW)on No acute infiltrate The exam has been dictated and signed by Jaja Blum, RATE INSERTER-TECHNICAL APPLICATIONS SPECIALIST and Jamal Merino II, MD, reviewed and concurred with these findings. [facility] [place] Patient 9 : 1970 Age: 48 years Gender: Female Order Date: 12/11/2018 2:06 PM Exam: XR CHEST (2 VW) Number of Images: 2 views Indication: R05 Cough Comparison: 09/29/2018 Findings: The heart is borderline The lung whitfield demonstrate no significant pulmonary vascular congestion and edema. The aorta is tortuous ectatic There are no acute infiltrates seen throughout the lung whitfield. Chronic changes are noted [employer] Tristin, [employer] Incoming Radiant Results From [employer] - 12/11/2018 4:04 PM EDT Patient : 1970 Age: 48 years Gender: Female Order Date: 12/11/2018 2:06 PM Exam: XR CHEST (2 VW) Number of Images: 2 views Indication: R05 Cough Comparison: 09/29/2018 Findings: The heart is borderline The lung whitfield demonstrate no significant pulmonary vascular congestion and edema. The aorta is tortuous ectatic There are no acute infiltrates seen throughout the lung whitfield. Chronic changes are noted IMPRESSION: No acute infiltrate The exam has been dictated and signed by EVON Ha and Jamal Merino II, MD, reviewed and concurred with these findings. [employer] LUIS MATIAS XR HIP LEFT (2-3 VIEWS)on Mild degenerative changes of the left hip. The exam has been dictated and signed by EVON Ha and Jamal Merino II, MD, reviewed and concurred with these findings. [employer] [facility] Patient 9 : 1970 Age: 48 years Gender: Female Order Date: 12/11/2018 2:06 PM EXAM: XR HIP LEFT (2-3 VIEWS) NUMBER OF IMAGES: 2 views INDICATION: M51.36 Annular tear of lumbar disc COMPARISON: 09/29/2018 The bones appear to be in anatomic alignment. No foreign body is identified. No fracture is identified. There is mild joint space loss. There are mild degenerative changes present [employer] Tristin, [employer] Incoming Radiant Results From [employer] - 12/11/2018 4:01 PM EDT Patient : 1970 Age: 48 years Gender: Female Order Date: 12/11/2018 2:06 PM EXAM: XR HIP LEFT (2-3 VIEWS) NUMBER OF IMAGES: 2 views INDICATION: M51.36 Annular tear of lumbar disc COMPARISON: 09/29/2018 The bones appear to be in anatomic alignment. No foreign body is identified. No fracture is identified. There is mild joint space loss. There are mild degenerative changes present IMPRESSION: Mild degenerative changes of the left hip. The exam has been dictated and signed by EVON Ha and Jamal Merino II, MD, reviewed and concurred with these findings. [facility] (2-3 VIEWS)o n 12-11-2018 Findings consistent with mild degenerative disc disease and moderate degenerative facet disease The exam has been dictated and signed by EVON Ha and Jamal Merino II, MD, reviewed and concurred with these findings. [facility] : 1970 Age: 48 years Gender: Female Order Date: 12/11/2018 2:05 PM EXAM: XR LUMBAR SPINE (2-3 VIEWS) NUMBER OF IMAGES: 4 views INDICATION: M51.36 Annular tear of lumbar disc COMPARISON: None Alignment of the vertebral bodies appears to be near-anatomic No fracture or foreign body is identified. The disc spaces demonstrate mild degenerative changes. There is mild loss of the vertebral body height There are moderate degenerative changes involving the facets. [facility] Mhy Incoming Radiant Results From [employer] - 12/11/2018 4:08 PM EDT Patient : 1970 Age: 48 years Gender: Female Order Date: 12/11/2018 2:05 PM EXAM: XR LUMBAR SPINE (2-3 VIEWS) NUMBER OF IMAGES: 4 views INDICATION: M51.36 Annular tear of lumbar disc COMPARISON: None Alignment of the vertebral bodies appears to be near-anatomic No fracture or foreign body is identified. The disc spaces demonstrate mild degenerative changes. There is mild loss of the vertebral body height There are moderate degenerative changes involving the facets. IMPRESSION: Findings consistent with mild degenerative disc disease and moderate degenerative facet disease The exam has been dictated and signed by EVON Ha and Jamal Merino II, MD, reviewed and concurred with these findings. [facility] V[facility] Sign[facility] Date Time Vital Sign Value Performing Clinician Facility 08-20-2024 11:54-0400 Diastolic blood pressure 94 mm[Hg] Maria Elena Montalvo MD Work Phone: [facility] 08-20-2024 11:54-0400 Heart rate 74 /min Maria Elena Montalvo MD Work Phone: [facility] 08-20-2024 11:54-0400 Respiratory rate 16 /min Maria Elena Montalvo MD Work Phone: [facility] 08-20-2024 11:54-0400 SaO2% (BldA) [Mass fraction] 99 % Maria Elena Montalvo MD Work Phone: [facility] 08-20-2024 11:54-0400 Systolic blood pressure 148 mm[Hg] Humairam Selvin RACHEL Work Phone: [facility] 08-20-2024 10:03-0400 Body height 172.7 cm Maria Elena Montalvo MD Work Phone: [facility] 08-20-2024 10:03-0400 Body mass index (BMI) [Ratio] 18.85 kg/m2 Maria Elena Montalvo MD Work Phone: [facility] 08-20-2024 10:03-0400 Body temperature 98.2 [degF] Maria Elena Montalvo MD Work Phone: [facility] 08-20-2024 10:03-0400 Body weight 56.25 kg Maria Elena Montalvo MD Work Phone: [facility] 08-08-2024 20:20-0400 Diastolic blood pressure 81 mm[Hg] Lourdes Cardoza MD Work Phone: [facility] 08-08-2024 20:20-0400 Heart rate 83 /min Lourdes Cardoza MD [facility] [facility] 08-08-2024 20:20-0400 Respiratory rate 18 /min Lourdes Cardoza MD Work Phone: [facility] 08-08-2024 20:20-0400 SaO2% (BldA) [Mass fraction] 97 % Lourdes Cardoza MD Work Phone: [facility] [employer] 08-08-2024 20:20-0400 Systolic blood pressure 134 mm[Hg] [facility] 08-08-2024 17:45-0400 Body temperature 98.49 [degF] Lourdes Cardoza MD Work Phone: [facility] [employer] 08-06-2024 04:30-0400 Body temperature 98.1 [degF] Kayode Glozman DO Work Phone: [facility] [employer] 08-06-2024 04:30-0400 Diastolic blood pressure 71 mm[Hg] Kayode Glozman DO Work Phone: [facility] [employer] 08-06-2024 04:30-0400 Heart rate 72 /min Kayode Glozman DO Work Phone: [facility] [employer] 08-06-2024 04:30-0400 Respiratory rate 16 /min Kayode Glozman DO Work Phone: [facility] 08-06-2024 04:30-0400 SaO2% (BldA) [Mass fraction] 98 % Kayode Glozman DO Work Phone: [facility] 08-06-2024 04:30-0400 Systolic blood pressure 108 mm[Hg] Kayode Glozman DO Work Phone: [facility] 08-01-2024 04:34-0400 Diastolic blood pressure 84 mm[Hg] Christopher Brancker DO Work Phone: [facility] 08-01-2024 04:34-0400 Heart rate 94 /min Christopher Brancker DO Work Phone: [facility] 08-01-2024 04:34-0400 Respiratory rate 17 /min Christopher Brancker DO Work Phone: [facility] 08-01-2024 04:34-0400 SaO2% (BldA) [Mass fraction] 100 % Jia Huerta DO Work Phone: [facility] [employer] 08-01-2024 04:34-0400 Systolic blood pressure 110 mm[Hg] Jia Huerta DO Work Phone: [facility] 07-12-2024 04:15-0400 Body temperature 98.1 [degF] Lesley Taylor DO Work Phone: [facility] 07-12-2024 04:15-0400 Diastolic blood pressure 91 mm[Hg] Lesley Taylor DO Work Phone: [facility] 07-12-2024 04:15-0400 Heart rate 93 /min Lesley Taylor DO Work Phone: [facility] 07-12-2024 04:15-0400 Respiratory rate 16 /min Lesley Taylor DO Work Phone: [facility] 07-12-2024 04:15-0400 SaO2% (BldA) [Mass fraction] 97 % Lesley Taylor DO Work Phone: [facility] 07-12-2024 04:15-0400 Systolic blood pressure 128 mm[Hg] Lesley Taylor DO Work Phone: [facility] 07-12-2024 02:13-0400 Body height 172.7 cm Lesley Taylor DO Work Phone: [facility] 07-12-2024 02:13-0400 Body mass index (BMI) [Ratio] 19.46 kg/m2 Lesley Taylor DO Work Phone: [facility] 07-12-2024 02:13-0400 Body weight 58.06 kg Lesley Taylor DO Work Phone: [facility] 07-08-2024 21:23-0400 Respiratory rate 16 /min Kev Hsu DO Work Phone: [facility] 07-08-2024 19:56-0400 Body mass index (BMI) [Ratio] 19.01 kg/m2 Kev Hsu DO Work Phone: [facility] [employer] 07-08-2024 19:56-0400 Body weight 56.7 kg Kev Hsu DO Work Phone: [facility] 07-08-2024 19:38-0400 Body temperature 98.4 [degF] Kev Hsu DO Work Phone: [facility] 07-08-2024 19:38-0400 Diastolic blood pressure 91 mm[Hg] [facility] 07-08-2024 19:38-0400 Heart rate 102 /min Kev Hsu [employer] Work Phone: [facility] [employer] 07-08-2024 19:38-0400 SaO2% (BldA) [Mass fraction] 98 % Kev Hsu [employer] Work Phone: [facility] 07-08-2024 19:38-0400 Systolic blood pressure 138 mm[Hg] Kev Hsu [employer] Work Phone: [facility] 07-07-2024 08:19-0400 Diastolic blood pressure 75 mm[Hg] [facility] 07-07-2024 08:19-0400 Systolic blood pressure 128 mm[Hg] [facility] 07-07-2024 04:16-0400 Body height 172.72 cm [facility] 07-07-2024 04:16-0400 Body mass index (BMI) [Ratio] 18.8 kg/m2 [facility] 07-07-2024 04:16-0400 Body temperature 97.7 [degF] [facility] 07-07-2024 04:16-0400 Body weight 56.1 kg [facility] 07-07-2024 04:16-0400 Heart rate 101 /min [facility] 07-07-2024 04:16-0400 Respiratory rate 20 /min [facility] 07-07-2024 04:16-0400 SaO2% (BldA) [Mass fraction] 99 % [facility] 07-01-2024 07:53-0400 Diastolic blood pressure 70 mm[Hg] Cara Ojeda DO Work Phone: [facility] [employer] 07-01-2024 07:53-0400 Heart rate 86 /min Cara Bynumrne DO Work Phone: [facility] 07-01-2024 07:53-0400 Respiratory rate 16 /min Cara De Pazne DO Work Phone: [facility] 07-01-2024 07:53-0400 SaO2% (BldA) [Mass fraction] 98 % Craa Ojeda DO Work Phone: [facility] 07-01-2024 07:53-0400 Systolic blood pressure 133 mm[Hg] Craa De Pazne DO Work Phone: [facility] 07-01-2024 07:48-0400 Body height 172.7 cm Cara Bynumrne DO Work Phone: [facility] 07-01-2024 07:48-0400 Body mass index (BMI) [Ratio] 20.53 kg/m2 Cara Bynumrne DO Work Phone: [facility] 07-01-2024 07:48-0400 Body weight 61.24 kg Cara Ojeda DO Work Phone: [facility] 07-01-2024 07:39-0400 Body temperature 98.2 [degF] Cara Bynumrne DO Work Phone: [facility] 06-17-2024 03:52-0400 Body mass index (BMI) [Ratio] 19.98 kg/m2 Kev Hsu DO Work Phone: [facility] 06-17-2024 03:52-0400 Body weight 57.88 kg Kev Hsu DO Work Phone: [employer] 06-17-2024 03:40-0400 Body temperature 98.2 [degF] Kev Hsu DO Work Phone: [facility] 06-17-2024 03:40-0400 Diastolic blood pressure 98 mm[Hg] Kev Hsu DO Work Phone: [facility] 06-17-2024 03:40-0400 Heart rate 95 /min Kev Hsu DO Work Phone: [facility] 06-17-2024 03:40-0400 Respiratory rate 16 /min Kev Hsu DO Work Phone: [facility] 06-17-2024 03:40-0400 SaO2% (BldA) [Mass fraction] 97 % Kev Hsu DO Work Phone: [facility] 06-17-2024 03:40-0400 Systolic blood pressure 174 mm[Hg] Kev Hsu DO Work Phone: [employer] 06-10-2024 15:30-0400 Diastolic blood pressure 75 mm[Hg] Cara Ojeda DO Work Phone: [facility] 06-10-2024 15:30-0400 Heart rate 92 /min Cara Ojeda DO Work Phone: [employer] 06-10-2024 15:30-0400 Respiratory rate 17 /min Cara Ojeda DO Work Phone: [facility] 06-10-2024 15:30-0400 SaO2% (BldA) [Mass fraction] 95 % Cara Ojeda DO Work Phone: [facility] 06-10-2024 15:30-0400 Systolic blood pressure 100 mm[Hg] Cara Ojeda DO Work Phone: [employer] 06-10-2024 12:43-0400 Body temperature 98.4 [degF] Cara Ojeda DO Work Phone: [facility] 06-05-2024 16:06-0400 Body mass index (BMI) [Ratio] 20.36 kg/m2 Cara Ojeda DO Work Phone: [facility] 06-05-2024 16:06-0400 Body weight 58.97 kg Cara Ojeda DO Work Phone: [facility] 06-05-2024 16:06-0400 Diastolic blood pressure 90 mm[Hg] Cara Ojeda DO Work Phone: [facility] 06-05-2024 16:06-0400 Respiratory rate 18 /min Cara Ojeda DO Work Phone: [facility] 06-05-2024 16:06-0400 Systolic blood pressure 118 mm[Hg] Cara Ojeda DO Work Phone: [facility] 06-05-2024 15:46-0400 Body temperature 98.4 [degF] Cara Ojeda DO Work Phone: [facility] 06-05-2024 15:46-0400 Heart rate 113 /min Cara Ojeda DO Work Phone: [facility] 06-05-2024 15:46-0400 SaO2% (BldA) [Mass fraction] 98 % Cara Ojeda DO Work Phone: [employer] 06-03-2024 10:50-0400 Body height 170.2 cm Kev Hsu DO Work Phone: [facility] 06-03-2024 10:50-0400 Body mass index (BMI) [Ratio] 21.14 kg/m2 Kev Hsu DO Work Phone: [facility] 06-03-2024 10:50-0400 Body weight 61.24 kg Kev Hsu DO Work Phone: [employer] 06-03-2024 10:16-0400 Body temperature 98.01 [degF] Kev Hsu DO Work Phone: [facility] 06-03-2024 10:16-0400 Diastolic blood pressure 86 mm[Hg] Kev Hsu DO Work Phone: [facility] 06-03-2024 10:16-0400 Heart rate 100 /min Kev Hsu DO Work Phone: [facility] 06-03-2024 10:16-0400 Respiratory rate 20 /min Kev Hsu DO Work Phone: [facility] 06-03-2024 10:16-0400 SaO2% (BldA) [Mass fraction] 97 % Kev Hsu DO Work Phone: [facility] 06-03-2024 10:16-0400 Systolic blood pressure 125 mm[Hg] Kev Hsu DO Work Phone: [facility] 05-25-2024 13:06-0400 Body temperature 98.2 [degF] Hu Hannah DO Work Phone: [facility] 05-25-2024 13:06-0400 Diastolic blood pressure 89 mm[Hg] Hu Hannah DO Work Phone: [employer] 05-25-2024 13:06-0400 Heart rate 91 /min Hu Hannah DO Work Phone: [employer] 05-25-2024 13:06-0400 Respiratory rate 18 /min Hu Hannah DO Work Phone: [employer] 05-25-2024 13:06-0400 SaO2% (BldA) [Mass fraction] 100 % Hu Hannah DO Work Phone: [employer] 05-25-2024 13:06-0400 Systolic blood pressure 142 mm[Hg] Hu Hannah DO Work Phone: [facility] 05-25-2024 10:22-0400 Diastolic blood pressure 107 mm[Hg] Maria Elena Montalvo MD Work Phone: [facility] 05-25-2024 10:22-0400 Heart rate 92 /min Maria Elena Montalvo MD Work Phone: [facility] 05-25-2024 10:22-0400 Systolic blood pressure 145 mm[Hg] Maria Elena Montalvo MD Work Phone: [facility] 05-25-2024 10:20-0400 Respiratory rate 20 /min Maria Elena Montalvo MD Work Phone: [facility] 05-25-2024 09:56-0400 Body temperature 98.29 [degF] Maria Elena Montalvo MD Work Phone: [facility] 05-25-2024 09:56-0400 SaO2% (BldA) [Mass fraction] 98 % Maria Elena Montalvo MD Work Phone: [employer] 05-22-2024 11:28-0400 Body mass index (BMI) [Ratio] 21.93 kg/m2 Jae Sommer MD Work Phone: [employer] 05-22-2024 11:28-0400 Body weight 63.5 kg Jae Sommer MD Work Phone: [employer] 05-22-2024 11:26-0400 Diastolic blood pressure 101 mm[Hg] Jae Sommer MD Work Phone: [facility] 05-22-2024 11:26-0400 Respiratory rate 20 /min Jae Sommer MD Work Phone: [facility] 05-22-2024 11:26-0400 Systolic blood pressure 145 mm[Hg] Jae Sommer MD Work Phone: [facility] 05-22-2024 11:03-0400 Body temperature 97.5 [degF] Jae Sommer MD Work Phone: [facility] 05-22-2024 11:03-0400 Heart rate 67 /min Jae Sommer MD Work Phone: [facility] 05-22-2024 11:03-0400 SaO2% (BldA) [Mass fraction] 100 % Jae Sommer MD Work Phone: [facility] 05-20-2024 13:12-0400 Body temperature 97.9 [degF] Don Queen MD Work Phone: [facility] 05-20-2024 13:12-0400 Diastolic blood pressure 74 mm[Hg] Don Queen MD Work Phone: [facility] 05-20-2024 13:12-0400 Heart rate 95 /min Don Queen MD Work Phone: [facility] 05-20-2024 13:12-0400 Respiratory rate 24 /min Don Queen MD Work Phone: [facility] 05-20-2024 13:12-0400 SaO2% (BldA) [Mass fraction] 97 % Don Queen MD Work Phone: [facility] 05-20-2024 13:12-0400 Systolic blood pressure 116 mm[Hg] Don Queen MD Work Phone: [facility] 05-20-2024 11:13-0400 Body height 170.18 cm [facility] 05-20-2024 11:13-0400 Body mass index (BMI) [Ratio] 20.5 kg/m2 [facility] 05-20-2024 11:13-0400 Body temperature 97.3 [degF] [facility] 05-20-2024 11:13-0400 Body weight 59.42 kg [facility] 05-20-2024 11:13-0400 Diastolic blood pressure 84 mm[Hg] [facility] 05-20-2024 11:13-0400 Heart rate 88 /min [facility] 05-20-2024 11:13-0400 SaO2% (BldA) [Mass fraction] 99 % [facility] 05-20-2024 11:13-0400 Systolic blood pressure 136 mm[Hg] [facility] 05-17-2024 08:15-0400 Diastolic blood pressure 70 mm[Hg] Lesley Taylor DO Work Phone: [facility] 05-17-2024 08:15-0400 Heart rate 78 /min Lesley Tayolr DO Work Phone: [facility] 05-17-2024 08:15-0400 Respiratory rate 20 /min Lesley Taylor DO Work Phone: [facility] 05-17-2024 08:15-0400 SaO2% (BldA) [Mass fraction] 97 % Lesley Taylor DO Work Phone: [facility] 05-17-2024 08:15-0400 Systolic blood pressure 132 mm[Hg] Lesley Taylor DO Work Phone: [facility] 05-17-2024 07:30-0400 Body temperature 98.6 [degF] Lesley Taylor DO Work Phone: [facility] 05-17-2024 03:00-0400 Body height 170.2 cm Lesley Taylor DO Work Phone: [facility] 05-17-2024 03:00-0400 Body mass index (BMI) [Ratio] 21.62 kg/m2 Lesley Taylor DO Work Phone: [facility] 05-17-2024 03:00-0400 Body weight 62.6 kg Lesley Taylor DO Work Phone: [facility] 03-14-2025 11:18-0400 Diastolic blood pressure 92 mm[Hg] Kev Shadi DO Work Phone: [employer] 05-15-2024 11:18-0400 Heart rate 68 /min Kev Shadi DO Work Phone: [facility] 05-15-2024 11:18-0400 Respiratory rate 18 /min Kevharper Hsu DO Work Phone: [facility] 05-15-2024 11:18-0400 SaO2% (BldA) [Mass fraction] 99 % Kev Shadi DO Work Phone: [employer] 05-15-2024 11:18-0400 Systolic blood pressure 147 mm[Hg] Kev Hsu DO Work Phone: [facility] 05-15-2024 09:41-0400 Body height 170.2 cm Kev Hsu DO Work Phone: [facility] 05-15-2024 09:41-0400 Body mass index (BMI) [Ratio] 21.14 kg/m2 Kev Hsu DO Work Phone: [facility] 05-15-2024 09:41-0400 Body weight 61.24 kg Kev Hsu DO Work Phone: [facility] 05-15-2024 09:35-0400 Body temperature 97.9 [degF] Kev Hsu DO Work Phone: [facility] 05-02-2024 06:22-0500 Diastolic blood pressure 71 mm[Hg] Kev Hsu DO Work Phone: [employer] 05-02-2024 06:22-0500 Heart rate 79 /min Kev Hsu DO Work Phone: [facility] 05-02-2024 06:22-0500 Respiratory rate 16 /min Kev Hsu DO Work Phone: [facility] 05-02-2024 06:22-0500 SaO2% (BldA) [Mass fraction] 98 % Kevharper Hsu DO Work Phone: [employer] 05-02-2024 06:22-0500 Systolic blood pressure 112 mm[Hg] Kev Shadi DO Work Phone: [facility] 05-02-2024 03:52-0500 Body height 170.2 cm Kevharper Hsu DO Work Phone: [facility] 05-02-2024 03:52-0500 Body mass index (BMI) [Ratio] 22.71 kg/m2 Kevharper Hsu DO Work Phone: [facility] 05-02-2024 03:52-0500 Body temperature 98.2 [degF] Kevharper Hsu DO Work Phone: [facility] 05-02-2024 03:52-0500 Body weight 65.77 kg Kevharper Hsu DO Work Phone: [employer] 04-30-2024 04:06-0500 Body height 172.7 cm Tonya Tran MD Work Phone: [facility] 04-30-2024 04:06-0500 Body mass index (BMI) [Ratio] 21.29 kg/m2 Tonya Tran MD Work Phone: [facility] 04-30-2024 04:06-0500 Body temperature 97.9 [degF] Tonya Tran MD Work Phone: [facility] 04-30-2024 04:06-0500 Body weight 63.5 kg Tonya Tran MD Work Phone: [facility] 04-30-2024 04:06-0500 Diastolic blood pressure 86 mm[Hg] Tonya Tran MD Work Phone: [facility] 04-30-2024 04:06-0500 Heart rate 94 /min Tonya Tran MD Work Phone: [facility] 04-30-2024 04:06-0500 Respiratory rate 18 /min Tonya Tran MD Work Phone: [facility] 04-30-2024 04:06-0500 SaO2% (BldA) [Mass fraction] 98 % Tonya Tran MD Work Phone: [facility] 04-30-2024 04:06-0500 Systolic blood pressure 121 mm[Hg] Tonya Tran MD Work Phone: [facility] 04-24-2024 04:31-0500 Body height 170.2 cm Kayode Glozman DO Work Phone: [employer] 04-24-2024 04:31-0500 Body mass index (BMI) [Ratio] 21.14 kg/m2 Kayode Glozman DO Work Phone: [facility] 04-24-2024 04:31-0500 Body temperature 98.6 [degF] Kayode Glozman DO Work Phone: [facility] 04-24-2024 04:31-0500 Body weight 61.24 kg Kayode Glozman DO Work Phone: [facility] 04-24-2024 04:31-0500 Diastolic blood pressure 84 mm[Hg] Kayode Glozman DO Work Phone: [facility] 04-24-2024 04:31-0500 Heart rate 89 /min Kayode Glozman DO Work Phone: [facility] 04-24-2024 04:31-0500 Respiratory rate 20 /min Kayode Glozman DO Work Phone: [facility] 04-24-2024 04:31-0500 SaO2% (BldA) [Mass fraction] 97 % Kayode Glozman DO Work Phone: [facility] 04-24-2024 04:31-0500 Systolic blood pressure 143 mm[Hg] [facility]ansen [facility] 04-20-2024 14:07-0500 Body mass index (BMI) [Ratio] 21.14 kg/m2 Basem Selvin RACHEL Work [facility] 04-20-2024 14:07-0500 Body weight 61.24 kg Basem Selvin MD [facility] 04-20-2024 13:55-0500 Body temperature 98.1 [degF] Basem Selvin RACHEL [facility] 04-20-2024 13:55-0500 Diastolic blood pressure 84 mm[Hg] Basem Selvin MD [facility] 04-20-2024 13:55-0500 Heart rate 91 /min Basem Selvin RACHEL [facility] 04-20-2024 13:55-0500 Respiratory rate 14 /min Basem Selvin RACHEL [facility] 04-20-2024 13:55-0500 SaO2% (BldA) [Mass fraction] 98 % Basem Selvin MD [facility] 04-20-2024 13:55-0500 Systolic blood pressure 137 mm[Hg] Basem Selvin RACHEL [facility] 04-11-2024 10:59-0500 Diastolic Blood Pressure Non-Invasive 83 mm[Hg] DR SANTA LESTER MD [facility] 04-11-2024 10:59-0500 Respiratory rate 20 /min DR SANTA LESTER MD [facility] 04-11-2024 10:59-0500 Systolic Blood Pressure Non-Invasive 147 mm[Hg] DR SANTA LESTER MD [facility] 04-11-2024 06:35-0500 Blood Pressure Cuff Size DR SANTA LESTER MD [facility] 04-11-2024 06:35-[address] SANTA LESTER MD [facility] 04-11-2024 06:35-[address] SANTA LESTER MD [facility] 04-11-2024 06:35-0500 Body temperature 96.8 [degF] DR SANTA LESTER MD [facility] 04-11-2024 06:35-0500 Body weight 60.[address] SANTA LESTER MD [facility] 04-11-2024 06:35-0500 Diastolic Blood Pressure Non-Invasive 88 mm[Hg] DR SANTA LESTER MD [facility] 04-11-2024 06:35-0500 Respiratory rate 18 /min DR SANTA LESTER MD [facility] 04-11-2024 06:35-0500 Systolic Blood Pressure Non-Invasive 129 mm[Hg] DR SANTA LESTER MD [facility] 04-10-2024 02:57-0500 Diastolic blood pressure 89 mm[Hg] Maria Elena Montalvo MD Work Phone: [facility] 04-10-2024 02:57-0500 Heart rate 95 /min Maria Elena Montalvo MD Work Phone: [facility] 04-10-2024 02:57-0500 Respiratory rate 18 /min Maria Elena Montalvo MD Work Phone: [facility] 04-10-2024 02:57-0500 SaO2% (BldA) [Mass fraction] 98 % Maria Elena Montalvo MD Work Phone: [facility] 04-10-2024 02:57-0500 Systolic blood pressure 132 mm[Hg] Basem Selvin RACHEL Work Phone: [facility] 04-10-2024 02:08-0500 Body height 170.2 cm Maria Elena Montalvo MD Work Phone: [facility] 04-10-2024 02:08-0500 Body mass index (BMI) [Ratio] 21.93 kg/m2 Maria Elena Montalvo MD Work Phone: [facility] 04-10-2024 02:08-0500 Body temperature 98.8 [degF] Maria Elena Montalvo MD Work Phone: [facility] 04-10-2024 02:08-0500 Body weight 63.5 kg Maria Elena Montalvo MD Work Phone: [facility] 04-07-2024 04:26-0500 Body temperature 97.9 [degF] Brandy Sanches MD Work Phone: [facility] 04-07-2024 04:26-0500 Diastolic blood pressure 75 mm[Hg] Brandy Sanches MD Work Phone: [facility] 04-07-2024 04:26-0500 Heart rate 95 /min Brandy Sanches MD Work Phone: [facility] 04-07-2024 04:26-0500 Respiratory rate 16 /min Brandy Sanches MD Work Phone: [facility] 04-07-2024 04:26-0500 SaO2% (BldA) [Mass fraction] 98 % Brandy Sanches MD Work Phone: [facility] 04-07-2024 04:26-0500 Systolic blood pressure 140 mm[Hg] Brandy Sanches MD Work Phone: [facility] 03-29-2024 09:56-0500 SaO2% (BldA) [Mass fraction] 98 % Kev Shadi DO Work Phone: [facility] 03-29-2024 09:55-0500 Diastolic blood pressure 86 mm[Hg] Kev Hsu DO Work Phone: [facility] 03-29-2024 09:55-0500 Systolic blood pressure 148 mm[Hg] Kevharper Hsu DO Work Phone: [facility] 03-29-2024 08:29-0500 Heart rate 94 /min Kev Shadi DO Work Phone: [facility] 03-29-2024 08:29-0500 Respiratory rate 10 /min Kevharper Hsu DO Work Phone: [facility] 03-29-2024 07:10-0500 Body height 170.2 cm Kevharper Hsu DO Work Phone: [facility] 03-29-2024 07:10-0500 Body mass index (BMI) [Ratio] 21.93 kg/m2 Kevharper Hsu DO Work Phone: [facility] 03-29-2024 07:10-0500 Body temperature 98.2 [degF] Kevharper Hsu DO Work Phone: [facility] 03-29-2024 07:10-0500 Body weight 63.5 kg Kevharper Hsu DO Work Phone: [facility] 03-25-2024 09:08-0500 Body height 170.18 cm [facility] 03-25-2024 09:08-0500 Body mass index (BMI) [Ratio] 21.3 kg/m2 [facility] 03-25-2024 09:08-0500 Body temperature 97.3 [degF] [facility] 03-25-2024 09:08-0500 Body weight 61.8 kg [facility] 03-25-2024 09:08-0500 Diastolic blood pressure 76 mm[Hg] [facility] 03-25-2024 09:08-0500 Heart rate 85 /min [facility] 03-25-2024 09:08-0500 SaO2% (BldA) [Mass fraction] 99 % [facility] 03-25-2024 09:08-0500 Systolic blood pressure 116 mm[Hg] [facility] 03-19-2024 05:57-0500 Diastolic blood pressure 86 mm[Hg] [facility] 03-19-2024 05:57-0500 Systolic blood pressure 141 mm[Hg] [facility] [facility] 03-19-2024 05:24-0500 Heart rate 92 /min [facility] 03-19-2024 05:24-0500 Respiratory rate 16 /min [facility] 03-19-2024 05:24-0500 SaO2% (BldA) [Mass fraction] 100 % [facility] 03-19-2024 03:20-0500 Body temperature 98.5 [degF] [facility] 03-18-2024 04:57-0500 Body temperature 97.9 [degF] Rosi Petersen DO Work Phone: [facility] 03-18-2024 04:57-0500 Diastolic blood pressure 99 mm[Hg] Rosi Petersen DO Work Phone: [facility] [employer] 03-18-2024 04:57-0500 Heart rate 100 /min Rosi Peetrsen DO Work Phone: [facility] 03-18-2024 04:57-0500 Respiratory rate 18 /min Rosi Petersen DO Work Phone: [facility] 03-18-2024 04:57-0500 SaO2% (BldA) [Mass fraction] 99 % Rosi Petersen DO Work Phone: [facility] 03-18-2024 04:57-0500 Systolic blood pressure 154 mm[Hg] Rosi Petersen DO Work Phone: [facility] [employer] 03-17-2024 04:48-0500 Diastolic blood pressure 89 mm[Hg] Jia Huerta DO Work Phone: [facility] [employer] 03-17-2024 04:48-0500 Heart rate 87 /min Jia Huerta DO Work Phone: [facility] [employer] 03-17-2024 04:48-0500 Respiratory rate 16 /min Jia Huerta DO Work Phone: [facility] [employer] 03-17-2024 04:48-0500 SaO2% (BldA) [Mass fraction] 100 % Jia Huerta DO Work Phone: [facility] [employer] 03-17-2024 04:48-0500 Systolic blood pressure 154 mm[Hg] Jia Huerta DO Work Phone: [facility] [employer] 03-17-2024 03:01-0500 Body height 170.2 cm Jia Huerta DO Work Phone: [facility] [employer] 03-17-2024 03:01-0500 Body mass index (BMI) [Ratio] 21.93 kg/m2 Jia Huerta DO Work Phone: [facility] [employer] 03-17-2024 03:01-0500 Body temperature 97.7 [degF] Jia Huerta DO Work Phone: [facility] [employer] 03-17-2024 03:01-0500 Body weight 63.5 kg Jia Huerta DO Work Phone: [facility] [employer] 03-13-2024 16:36-0500 Body temperature 97.2 [degF] Maria Elena Montalvo MD Work Phone: [facility] [employer] 03-13-2024 16:36-0500 Diastolic blood pressure 97 mm[Hg] Maria Elena Montalvo MD Work Phone: [facility] [employer] 03-13-2024 16:36-0500 Heart rate 88 /min Basem Selvin Work Phone: [facility] [employer] 03-13-2024 16:36-0500 Respiratory rate 18 /min Basem Selvin Work Phone: [facility] [employer] 03-13-2024 16:36-0500 SaO2% (BldA) [Mass fraction] 99 % Basem Selvin Work Phone: [facility] [employer] 03-13-2024 16:36-0500 Systolic blood pressure 152 mm[Hg] Basem Selvin Work Phone: [facility] [employer] 03-13-2024 16:35-0500 Body height 170.2 cm Basem Selvin Work Phone: [facility] [employer] 03-13-2024 16:35-0500 Body mass index (BMI) [Ratio] 21.93 kg/m2 Basem Selvin Work Phone: [facility] [employer] 03-13-2024 16:35-0500 Body weight 63.5 kg Basem Selvin Work Phone: [facility] [employer] 03-12-2024 16:13-0500 Body height 170.2 cm Basem Selvin Work Phone: [facility] [employer] 03-12-2024 16:13-0500 Body mass index (BMI) [Ratio] 21.93 kg/m2 Basem Selvin Work Phone: [facility] [employer] 03-12-2024 16:13-0500 Body temperature 99.3 [degF] Basem Selvin Work Phone: [facility] [employer] 03-12-2024 16:13-0500 Body weight 63.5 kg Basem Selvin Work Phone: [facility] [employer] 03-12-2024 16:13-0500 Diastolic blood pressure 104 mm[Hg] [facility]em Selvin [facility] 03-12-2024 16:13-0500 Heart rate 98 /min Baseedouard Montalvo MD Work Phone: [facility] 03-12-2024 16:13-0500 Respiratory rate 16 /min Basem Selvin Work Phone: [facility] 03-12-2024 16:13-0500 SaO2% (BldA) [Mass fraction] 99 % Basem Selvin MD [facility] Phone[facility] 03-12-2024 16:13-0500 Systolic blood pressure 147 mm[Hg] Basem Selvin MD Work Phone: [facility] 03-09-2024 10:52-0500 Body temperature 97.9 [degF] Emelia Melendez MD [facility] 03-09-2024 10:52-0500 Diastolic blood pressure 86 mm[Hg] Emelia Melendez [facility] 03-09-2024 10:52-0500 Heart rate 76 /min Emelia Melendez MD [facility] 03-09-2024 10:52-0500 Respiratory rate 13 /min Emelia Melendez MD [facility] 03-09-2024 10:52-0500 SaO2% (BldA) [Mass fraction] 97 % Emelia [facility]endez [facility] 03-09-2024 10:52-0500 Systolic blood pressure 126 mm[Hg] Emelia Melendez [facility] 02-28-2024 04:05-0500 Body temperature 98.4 [degF] Maria Elena Montalvo MD Work Phone[facility] 02-28-2024 04:05-0500 Diastolic blood pressure 75 mm[Hg] Maria Elena Montalvo MD Work Phone: [facility] 02-28-2024 04:05-0500 Heart rate 90 /min Basem Selvin Work Phone: [employer] 02-28-2024 04:05-0500 Respiratory rate 18 /min Basem Selvin Work Phone: [facility] [employer] 02-28-2024 04:05-0500 SaO2% (BldA) [Mass fraction] 96 % Basem Selvin Work Phone: [employer] 02-28-2024 04:05-0500 Systolic blood pressure 119 mm[Hg] Basem Selvin Work Phone: [employer] 02-20-2024 04:50-0500 Body temperature 99.3 [degF] SonalHW Work Phone: [employer] 02-20-2024 04:50-0500 Diastolic blood pressure 84 mm[Hg] [facility] Work Phone: [employer] 02-20-2024 04:50-0500 Heart rate 116 /min [facility] Work Phone: [employer] 02-20-2024 04:50-0500 Respiratory rate 20 /min [facility] Work Phone: [employer] 02-20-2024 04:50-0500 SaO2% (BldA) [Mass fraction] 99 % [facility] Work Phone: [employer] 02-20-2024 04:50-0500 Systolic blood pressure 110 mm[Hg] [facility] Work Phone: [employer] 02-20-2024 04:48-0500 Body height 170.2 cm [facility] Work Phone: [employer] 02-20-2024 04:48-0500 Body mass index (BMI) [Ratio] 21.93 kg/m2 [facility] Work Phone: [employer] 02-20-2024 04:48-0500 Body weight 63.5 kg Sonal Mclaughlin DO Work Phone: [facility] [employer] 02-12-2024 09:07-0500 Body height 170.2 cm Siddhartha Zarco MD Work Phone: [facility] 02-12-2024 09:07-0500 Body mass index (BMI) [Ratio] 22.71 kg/m2 Siddhartha Zarco MD Work Phone: [facility] 02-12-2024 09:07-0500 Body weight 65.77 kg Siddhartha Zarco MD Work Phone: [facility] 02-12-2024 09:07-0500 Diastolic blood pressure 87 mm[Hg] Siddhartha Zarco MD Work Phone: [facility] 02-12-2024 09:07-0500 Heart rate 88 /min Siddhartha Zarco MD Work Phone: [facility] 02-12-2024 09:07-0500 Respiratory rate 16 /min Siddhartha Zarco MD Work Phone: [facility] 02-12-2024 09:07-0500 SaO2% (BldA) [Mass fraction] 97 % Siddhartha Zarco MD Work Phone: [facility] 02-12-2024 09:07-0500 Systolic blood pressure 125 mm[Hg] Siddhartha Zarco MD Work Phone: [facility] 02-11-2024 03:38-0500 Diastolic blood pressure 105 mm[Hg] Kayode Glozman DO Work Phone: [employer] 02-11-2024 03:38-0500 Heart rate 99 /min Kayode Glozman DO Work Phone: [facility] [employer] 02-11-2024 03:38-0500 Respiratory rate 16 /min Kayode Glozman DO Work Phone: [employer] 02-11-2024 03:38-0500 SaO2% (BldA) [Mass fraction] 99 % Kayode Jansen DO Work Phone: [facility] 02-11-2024 03:38-0500 Systolic blood pressure 151 mm[Hg] Kayode Jansen DO Work Phone: [facility] 02-11-2024 03:29-0500 Body temperature 97.9 [degF] Kayode Jansen DO Work Phone: [facility] 02-10-2024 03:48-0500 Body height 170.2 cm Chris Tiwari MD Work Phone: 2(285)682-500103 [place] [address] 02-10-2024 03:48-0500 Body mass index (BMI) [Ratio] 21.93 kg/m2 Chris Tiwari MD Work Phone: 9(809)980-410601 [place] [address] 02-10-2024 03:48-0500 Body temperature 97.5 [degF] Chris Tiwari MD Work Phone: 4(286)086-492703 [place] [address] 02-10-2024 03:48-0500 Body weight 63.5 kg Chris Tiwari MD Work Phone: 8(895)[phone] [place] [address] 02-10-2024 03:48-0500 Diastolic blood pressure 88 mm[Hg] Chris Tiwari MD Work Phone: 9(153)341-049803 [place] [address] 02-10-2024 03:48-0500 Heart rate 96 /min Chris Tiwari MD Work Phone: 7(411)782-164303 [place] [address] 02-10-2024 03:48-0500 Respiratory rate 16 /min Chris Tiwari MD Work Phone: 3(828)380-706203 [place] [address] 02-10-2024 03:48-0500 SaO2% (BldA) [Mass fraction] 98 % Chris Tiwari MD Work Phone: 4(968)879-699803 [place] [address] 02-10-2024 03:48-0500 Systolic blood pressure 124 mm[Hg] Chris Tiwari MD Work Phone: [facility] 02-06-2024 02:38-0500 Body height 170.2 cm Brandy Sanches MD Work Phone: [employer] 02-06-2024 02:38-0500 Body mass index (BMI) [Ratio] 21.93 kg/m2 Brandy Sanches MD Work Phone: [employer] 02-06-2024 02:38-0500 Body temperature 97.9 [degF] Brandy Sanches MD Work Phone: [employer] 02-06-2024 02:38-0500 Body weight 63.5 kg Brandy Sanches MD Work Phone: [employer] 02-06-2024 02:38-0500 Diastolic blood pressure 92 mm[Hg] Brandy Sanches MD Work Phone: [employer] 02-06-2024 02:38-0500 Heart rate 95 /min Brandy Sanches MD Work Phone: [employer] 02-06-2024 02:38-0500 Respiratory rate 18 /min Brandy Sanches MD Work Phone: [employer] 02-06-2024 02:38-0500 SaO2% (BldA) [Mass fraction] 99 % Brandy Sanches MD Work Phone: [employer] 02-06-2024 02:38-0500 Systolic blood pressure 130 mm[Hg] Brandy Sanches MD Work Phone: [employer] 01-21-2024 17:15-0500 Body temperature 98.6 [degF] Earnest Shearer MD Work Phone: [employer] 01-21-2024 17:15-0500 Diastolic blood pressure 99 mm[Hg] Earnest Shearer MD Work Phone: [facility] 01-21-2024 17:15-0500 Heart rate 99 /min Earnest Shearer MD Work Phone: [facility] 01-21-2024 17:15-0500 Respiratory rate 18 /min Earnest Shearer MD Work Phone: [facility] 01-21-2024 17:15-0500 SaO2% (BldA) [Mass fraction] 98 % Earnest Shearer MD Work Phone: [facility] 01-21-2024 17:15-0500 Systolic blood pressure 160 mm[Hg] Earnest Shearer MD Work Phone: [facility] 01-20-2024 10:48-0500 Body height 170.2 cm Greg Zamarripa MD Work Phone: [facility] 01-20-2024 10:48-0500 Body mass index (BMI) [Ratio] 22.44 kg/m2 Greg Zamarripa MD Work Phone: 6(572)914-983503 [place] [address] 01-20-2024 10:48-0500 Body weight 65 kg Greg Zamarripa MD Work Phone: [facility] 01-20-2024 10:47-0500 Body temperature 97.59 [degF] Greg Zamarripa MD Work Phone: [facility] 01-20-2024 10:47-0500 Diastolic blood pressure 74 mm[Hg] Greg Zamarripa MD Work Phone: [facility] 01-20-2024 10:47-0500 Heart rate 84 /min Greg Zamarripa MD Work Phone: [facility] 01-20-2024 10:47-0500 Respiratory rate 18 /min Greg Zamarripa MD Work Phone: [facility] 01-20-2024 10:47-0500 SaO2% (BldA) [Mass fraction] 97 % Greg Zamarripa MD Work Phone: [facility] 01-20-2024 10:47-0500 Systolic blood pressure 132 mm[Hg] Greg Zamarripa MD Work Phone: [facility] 01-19-2024 16:07-0500 Diastolic blood pressure 92 mm[Hg] [facility] 01-19-2024 16:07-0500 Heart rate 94 /min [facility] 01-19-2024 16:07-0500 Respiratory rate 12 /min [facility] 01-19-2024 16:07-0500 Systolic blood pressure 145 mm[Hg] [facility] 01-19-2024 15:14-0500 Body temperature 98 [degF] [facility] 01-19-2024 15:14-0500 SaO2% (BldA) [Mass fraction] 98 % [facility] 01-18-2024 07:45-0500 Body height 170.2 cm Hu Hannah DO Work Phone: [employer] 01-18-2024 07:45-0500 Body mass index (BMI) [Ratio] 21.93 kg/m2 Huestella Hannah DO Work Phone: [employer] 01-18-2024 07:45-0500 Body weight 63.5 kg Hu Hannah DO Work Phone: [employer] 01-18-2024 07:44-0500 Body temperature 98.6 [degF] Huestella Hannah DO Work Phone: [employer] 01-18-2024 07:44-0500 Diastolic blood pressure 61 mm[Hg] Huestella Falconon DO Work Phone: [employer] 01-18-2024 07:44-0500 Heart rate 95 /min Huestella Falconon DO Work Phone: [employer] 01-18-2024 07:44-0500 Respiratory rate 16 /min Huestella Hannah DO Work Phone: [facility] 01-18-2024 07:44-0500 SaO2% (BldA) [Mass fraction] 98 % Hu Hannah DO Work Phone: [facility] 01-18-2024 07:44-0500 Systolic blood pressure 122 mm[Hg] Hu Hannah DO Work Phone: [facility] 01-16-2024 03:00-0500 Body temperature 98.8 [degF] [facility] 01-16-2024 03:00-0500 Diastolic blood pressure 97 mm[Hg] [facility] 01-16-2024 03:00-0500 Heart rate 110 /min [facility] 01-16-2024 03:00-0500 Respiratory rate 20 /min [facility] 01-16-2024 03:00-0500 SaO2% (BldA) [Mass fraction] 99 % [facility] 01-16-2024 03:00-0500 Systolic blood pressure 145 mm[Hg] [facility] 01-14-2024 03:27-0500 Body temperature 97.4 [degF] [facility] 01-14-2024 03:27-0500 Diastolic blood pressure 83 mm[Hg] [facility] 01-14-2024 03:27-0500 Heart rate 93 /min [facility] 01-14-2024 03:27-0500 Respiratory rate 14 /min [facility] 01-14-2024 03:27-0500 SaO2% (BldA) [Mass fraction] 94 % [facility] 01-14-2024 03:27-0500 Systolic blood pressure 126 mm[Hg] [facility] 01-13-2024 08:43-0500 Body mass index (BMI) [Ratio] 21.93 kg/m2 Babs Wootenen DO Work Phone: [facility] 01-13-2024 08:43-0500 Body weight 63.5 kg Babs Thomas DO Work Phone: [facility] 01-13-2024 08:33-0500 Body temperature 97.9 [degF] Babs Thomas DO [facility] 01-13-2024 08:33-0500 Diastolic blood pressure 92 mm[Hg] Babs Thomas DO Work Phone[facility] 01-13-2024 08:33-0500 Heart rate 86 /min Babs Thomas DO Work Phone: [facility] 01-13-2024 08:33-0500 Respiratory rate 14 /min Babs Thomas DO Work Phone: [facility] 01-13-2024 08:33-0500 SaO2% (BldA) [Mass fraction] 98 % Babs Thomas DO Work Phone: [facility] 01-13-2024 08:33-0500 Systolic blood pressure 162 mm[Hg] Babs Thomas DO Work Phone: [facility] [employer] 01-10-2024 14:54-0500 Body height 170.2 cm Basem Selvin RACHEL Work Phone: [facility] 01-10-2024 14:54-0500 Body mass index (BMI) [Ratio] 21.93 kg/m2 Basem Selvin RACHEL Work Phone: [facility] 01-10-2024 14:54-0500 Body temperature 97.9 [degF] Basem Selvin RACHEL Work Phone: [facility] 01-10-2024 14:54-0500 Body weight 63.5 kg Basem Selvin RACHEL Work Phone: [facility] 01-10-2024 14:54-0500 Diastolic blood pressure 72 mm[Hg] Basem Selvin RACHEL Work Phone: [facility] 01-10-2024 14:54-0500 Heart rate 107 /min Basem Selvin RACHEL Work Phone: [facility] 01-10-2024 14:54-0500 Respiratory rate 18 /min Basem Selvin MD Work Phone: [facility] 01-10-2024 14:54-0500 SaO2% (BldA) [Mass fraction] 97 % Maria Elena Montalvo MD Work Phone: [facility] 01-10-2024 14:54-0500 Systolic blood pressure 111 mm[Hg] Maria Elena Montalvo MD Work Phone: [facility] 01-09-2024 04:44-0500 Body temperature 98.4 [degF] Kayode Glozman DO Work Phone: [facility] 01-09-2024 04:44-0500 Diastolic blood pressure 79 mm[Hg] Kayode Glozman DO Work Phone: [facility] [employer] [facility] 01-09-2024 04:44-0500 Heart rate 89 /min Kayode Glozman DO Work Phone: [facility] 01-09-2024 04:44-0500 Respiratory rate 16 /min Kayode Glozman DO Work Phone: [facility] [employer] 01-09-2024 04:44-0500 SaO2% (BldA) [Mass fraction] 98 % Kayode Glozman DO Work Phone: [facility] [employer] 01-09-2024 04:44-0500 Systolic blood pressure 118 mm[Hg] Kayode Glozman DO Work Phone: [facility] [employer] 01-04-2024 09:50-0400 Diastolic blood pressure 92 mm[Hg] [place] [employer] [facility] 01-04-2024 09:50-0400 Heart rate 106 /min Annalisa [employer] [facility] 01-04-2024 09:50-0400 Respiratory rate 18 /min [facility] 01-04-2024 09:50-0400 SaO2% (BldA) [Mass fraction] 99 % Annalisa [employer] [facility] 01-04-2024 09:50-0400 Systolic blood pressure 134 mm[Hg] [facility] 01-04-2024 08:46-0400 Body height 170.18 cm [facility] 01-04-2024 08:46-0400 Body mass index (BMI) [Ratio] 22 kg/m2 [facility] 01-04-2024 08:46-0400 Body temperature 98 [degF] [facility] 01-04-2024 08:46-0400 Body weight 63.6 kg [facility] 12-29-2023 09:15-0400 Diastolic blood pressure 95 mm[Hg] Hu Hannah DO Work Phone: [employer] 12-29-2023 09:15-0400 Heart rate 80 /min Hu Hannah DO Work Phone: [facility] [employer] 12-29-2023 09:15-0400 Respiratory rate 18 /min Hu Hannah DO Work Phone: [employer] 12-29-2023 09:15-0400 SaO2% (BldA) [Mass fraction] 100 % Hu Hannah DO Work Phone: [employer] 12-29-2023 09:15-0400 Systolic blood pressure 164 mm[Hg] Hu Hannah DO Work Phone: [facility] [employer] 12-29-2023 07:35-0400 Body mass index (BMI) [Ratio] 21.93 kg/m2 Hu Hannah DO Work Phone: [facility] [employer] 12-29-2023 07:35-0400 Body weight 63.5 kg Hu Hannah DO Work Phone: [employer] 12-29-2023 07:27-0400 Body temperature 98.01 [degF] Hu Hannah DO Work Phone: [employer] 12-22-2023 01:30-0400 Diastolic Blood Pressure Non-Invasive 79 mm[Hg] ARLYN VIDAL MD [facility] 12-22-2023 01:30-0400 Heart rate 90 /min ARLYN VIDAL MD [facility] 12-22-2023 01:30-0400 Respiratory rate 16 /min ARLYN VIDAL MD [facility] 12-22-2023 01:30-0400 Systolic Blood Pressure Non-Invasive 144 mm[Hg] ARLYN VIDAL MD [facility] 12-21-2023 23:16-0400 Body weight 64.3 kg ARLYN VIDAL MD [address] [place] [address] 12-21-2023 23:16-0400 Diastolic Blood Pressure Non-Invasive 81 mm[Hg] ARLYN VIDAL MD [address] 12-21-2023 23:16-0400 Heart rate 97 /min ARLYN VIDAL MD [address] 12-21-2023 23:16-0400 Respiratory rate 18 /min ARLYN VIDAL MD [address] [place] [address] 12-21-2023 23:16-0400 Systolic Blood Pressure Non-Invasive 114 mm[Hg] ARLYN VIDAL MD [address] [place] [address] 12-20-2023 03:40-0400 Body height 170.2 cm Baseedouard Montalvo MD Work Phone: [facility] 12-20-2023 03:40-0400 Body mass index (BMI) [Ratio] 21.93 kg/m2 Maria Elena Montalvo MD Work Phone: [facility] 12-20-2023 03:40-0400 Body temperature 97.2 [degF] Maria Elena Montalvo MD Work Phone: [facility] 12-20-2023 03:40-0400 Body weight 63.5 kg Maria Elena Montalvo MD Work Phone: [facility] 12-20-2023 03:40-0400 Diastolic blood pressure 78 mm[Hg] Maria Elena Montalvo MD Work Phone: [facility] 12-20-2023 03:40-0400 Heart rate 102 /min Maria Elena Montalvo MD Work Phone: [facility] 12-20-2023 03:40-0400 Respiratory rate 18 /min Maria Eelna Montalvo MD Work Phone: [facility] 12-20-2023 03:40-0400 SaO2% (BldA) [Mass fraction] 100 % Maria Elena Montalvo MD Work Phone: [facility] 12-20-2023 03:40-0400 Systolic blood pressure 130 mm[Hg] Maria Elena Montalvo MD Work Phone: [facility] 12-07-2023 08:21-0400 Body temperature 98.4 [degF] [facility] 12-07-2023 08:21-0400 Diastolic blood pressure 72 mm[Hg] [facility] 12-07-2023 08:21-0400 Heart rate 82 /min [facility] 12-07-2023 08:21-0400 Respiratory rate 14 /min [facility] 12-07-2023 08:21-0400 SaO2% (BldA) [Mass fraction] 99 % [facility] 12-07-2023 08:21-0400 Systolic blood pressure 126 mm[Hg] [facility] 12-07-2023 07:56-0400 Body weight 64 kg [facility] 12-03-2023 04:14-0400 Body temperature 98.4 [degF] Brandy Sanches MD Work Phone: [facility] 12-03-2023 04:14-0400 Diastolic blood pressure 76 mm[Hg] Brandy Sanches MD Work Phone: [facility] 12-03-2023 04:14-0400 Heart rate 105 /min Brandy Sanches MD Work Phone: [facility] 12-03-2023 04:14-0400 Respiratory rate 16 /min Brandy Sanches MD Work Phone: [facility] 12-03-2023 04:14-0400 SaO2% (BldA) [Mass fraction] 97 % Brandy Sanches MD Work Phone: [facility] 12-03-2023 04:14-0400 Systolic blood pressure 125 mm[Hg] Brandy Sanches MD Work Phone: [facility] 11-23-2023 15:57-0400 Diastolic blood pressure 89 mm[Hg] Jaime Davis Work Phone: [facility] 11-23-2023 15:57-0400 Heart rate 84 /min Jaime Davis Work Phone: [facility] 11-23-2023 15:57-0400 Respiratory rate 16 /min Jaime Davis Work Phone: [facility] 11-23-2023 15:57-0400 SaO2% (BldA) [Mass fraction] 98 % Jaime Davis Work Phone: [facility] 11-23-2023 15:57-0400 Systolic blood pressure 145 mm[Hg] Jaime Davis Work Phone: [facility] 11-23-2023 14:39-0400 Body height 170.18 cm Jaime Davis Work Phone: [facility] 11-23-2023 14:39-0400 Body temperature 97.52 [degF] Jaime Davis Work Phone: [facility] 11-23-2023 14:39-0400 Body weight 63.5 kg Jaime Davis Work Phone: [facility] 11-20-2023 09:42-0400 Body temperature 97.3 [degF] [facility] 11-20-2023 09:42-0400 Diastolic blood pressure 103 mm[Hg] [facility] 11-20-2023 09:42-0400 Heart rate 81 /min [facility] 11-20-2023 09:42-0400 Respiratory rate 16 /min [facility] 11-20-2023 09:42-0400 SaO2% (BldA) [Mass fraction] 96 % [facility] 11-20-2023 09:42-0400 Systolic blood pressure 141 mm[Hg] [facility] 11-10-2023 15:42-0400 Body height 170.18 cm [facility] 11-10-2023 15:42-0400 Body mass index (BMI) [Ratio] 21.8 kg/m2 [facility] 11-10-2023 15:42-0400 Body temperature 98.4 [degF] [facility] 11-10-2023 15:42-0400 Body weight 63 kg [facility] 11-10-2023 15:42-0400 Diastolic blood pressure 101 mm[Hg] [facility] 11-10-2023 15:42-0400 Heart rate 102 /min [facility] 11-10-2023 15:42-0400 Respiratory rate 20 /min [facility] 11-10-2023 15:42-0400 SaO2% (BldA) [Mass fraction] 99 % [facility] 11-10-2023 15:42-0400 Systolic blood pressure 154 mm[Hg] [facility] 10-27-2023 01:38-0400 Body temperature 98.4 [degF] Jose Resendes DO Work Phone: [facility] 10-27-2023 01:38-0400 Diastolic blood pressure 104 mm[Hg] Jose Resendes DO Work Phone: [facility] 10-27-2023 01:38-0400 Heart rate 118 /min Jose Resendes DO Work Phone: [facility] 10-27-2023 01:38-0400 Respiratory rate 18 /min Jose Resendes DO Work Phone: [facility] 10-27-2023 01:38-0400 SaO2% (BldA) [Mass fraction] 100 % Jose Resendes DO Work Phone: [facility] 10-27-2023 01:38-0400 Systolic blood pressure 154 mm[Hg] Jose Resendes DO Work Phone: [facility] 10-26-2023 06:13-0400 Body height 170.18 cm DO Unknown PCP [facility] Work Phone: 10-26-2023 06:13-0400 Body mass index (BMI) [Ratio] 21.9 kg/m2 DO Unknown PCP [facility] Work Phone: 10-26-2023 06:13-0400 Body temperature 98 [degF] DO Unknown PCP [facility] Work Phone: 10-26-2023 06:13-0400 Body weight 63.5 kg DO Unknown PCP [facility] Work Phone: 10-26-2023 06:13-0400 Diastolic blood pressure 85 mm[Hg] DO Unknown PCP [facility] Work Phone: 10-26-2023 06:13-0400 Heart rate 108 /min DO Unknown PCP [facility] Work Phone: 10-26-2023 06:13-0400 Respiratory rate 20 /min DO Unknown PCP [facility] Work Phone: 10-26-2023 06:13-0400 SaO2% (BldA) [Mass fraction] 98 % DO Unknown PCP [facility] Work Phone: 10-26-2023 06:13-0400 Systolic blood pressure 138 mm[Hg] DO Unknown PCP [facility] Work Phone: 10-18-2023 11:21-0400 Diastolic blood pressure 99 mm[Hg] Basem Selvin MD Work Phone: [employer] 10-18-2023 11:21-0400 Heart rate 85 /min Basem Selvin Work Phone: [employer] 10-18-2023 11:21-0400 Respiratory rate 13 /min Basem Selvin Work Phone: [facility] [employer] [facility] 10-18-2023 11:21-0400 SaO2% (BldA) [Mass fraction] 100 % Maria Elena Montalvo MD Work Phone: [facility] [employer] [facility] 10-18-2023 11:21-0400 Systolic blood pressure 142 mm[Hg] Maria Elena Montalvo MD Work Phone: [facility] 10-18-2023 09:20-0400 Body mass index (BMI) [Ratio] 21.93 kg/m2 Maria Elena Montalvo MD Work Phone: [facility] 10-18-2023 09:20-0400 Body weight 63.5 kg Maria Elena Montalvo MD Work Phone: [facility] 10-18-2023 09:03-0400 Body temperature 97 [degF] Maria Elena Montalvo MD Work Phone: [facility] 10-11-2023 11:20-0400 Diastolic blood pressure 91 mm[Hg] [facility] 10-11-2023 11:20-0400 Heart rate 85 /min [facility] 10-11-2023 11:20-0400 Systolic blood pressure 157 mm[Hg] [facility] 10-11-2023 10:30-0400 Respiratory rate 18 /min [facility] 10-11-2023 10:30-0400 SaO2% (BldA) [Mass fraction] 98 % [facility] 10-11-2023 09:47-0400 Body height 170.18 cm [facility] 10-11-2023 09:47-0400 Body mass index (BMI) [Ratio] 21.8 kg/m2 [facility] 10-11-2023 09:47-0400 Body temperature 97.5 [degF] [facility] 10-11-2023 09:47-0400 Body weight 63 kg [facility] 10-08-2023 13:18-0400 Diastolic blood pressure 79 mm[Hg] Jocelyne Albert MD Work Phone: [facility] 10-08-2023 13:18-0400 Heart rate 77 /min Jocelyne Albert MD Work Phone: [facility] 10-08-2023 13:18-0400 Respiratory rate 17 /min Jocelyne Albert MD Work Phone: [facility] 10-08-2023 13:18-0400 SaO2% (BldA) [Mass fraction] 99 % Jocelyne Albert MD Work Phone: [facility] 10-08-2023 13:18-0400 Systolic blood pressure 123 mm[Hg] Jocelyne Albert MD Work Phone: [facility] 09-30-2023 14:24-0400 Body height 170.18 cm Jaime Davis Work Phone: [facility] 09-30-2023 14:24-0400 Body temperature 98.78 [degF] Jaime Davis Work Phone: [facility] 09-30-2023 14:24-0400 Body weight 63.32 kg Jaime Davis Work Phone: [facility] 09-30-2023 14:24-0400 Diastolic blood pressure 98 mm[Hg] Jaime Davis Work Phone: [facility] 09-30-2023 14:24-0400 Heart rate 105 /min Jaime Davis Work Phone: [facility] 09-30-2023 14:24-0400 Respiratory rate 18 /min Jaime Davis Work Phone: [facility] 09-30-2023 14:24-0400 SaO2% (BldA) [Mass fraction] 100 % Jaime Davis Work Phone: [facility] 09-30-2023 14:24-0400 Systolic blood pressure 144 mm[Hg] Jaime Davis Work Phone: [facility] 09-29-2023 13:05-0400 Diastolic blood pressure 76 mm[Hg] Mariely Veira DO Work Phone: [employer] [facility] 09-29-2023 13:05-0400 Heart rate 95 /min Mariely Viera DO Work Phone: [employer] 09-29-2023 13:05-0400 Respiratory rate 20 /min Mariely Viera DO Work Phone: [facility] [employer] [facility] [employer] 09-29-2023 13:05-0400 SaO2% (BldA) [Mass fraction] 100 % Mariely Viera DO Work Phone: [facility] [employer] [facility] [employer] 09-29-2023 13:05-0400 Systolic blood pressure 130 mm[Hg] Mariely Viera DO Work Phone: [facility] [employer] [facility] [employer] 09-29-2023 10:04-0400 Body temperature 97.39 [degF] Mariely Viera DO Work Phone: [facility] 09-19-2023 09:40-0400 Diastolic blood pressure 75 mm[Hg] Nathan Prince MD Work Phone: [facility] 09-19-2023 09:40-0400 Heart rate 94 /min Nathan Prince MD Work Phone: [facility] 09-19-2023 09:40-0400 SaO2% (BldA) [Mass fraction] 96 % Nathan Prince MD Work Phone: [facility] 09-19-2023 09:40-0400 Systolic blood pressure 111 mm[Hg] Nathan Prince MD Work Phone: [facility] 09-15-2023 09:29-0400 Body height 170.2 cm Jaime Davis MD Work Phone: [facility] 09-15-2023 09:29-0400 Body mass index (BMI) [Ratio] 21.93 kg/m2 Jaime Davis MD Work Phone: [facility] 09-15-2023 09:29-0400 Body temperature 97.39 [degF] Jaime Davis MD Work Phone: [facility] 09-15-2023 09:29-0400 Body weight 63.5 kg Jaime Davis MD Work Phone: [facility] 09-15-2023 09:29-0400 Diastolic blood pressure 76 mm[Hg] Jaime Davis MD Work Phone: [facility] 09-15-2023 09:29-0400 Heart rate 98 /min Jaime Davis MD Work Phone: [facility] 09-15-2023 09:29-0400 Respiratory rate 17 /min Jaime Davis MD Work Phone: [facility] 09-15-2023 09:29-0400 SaO2% (BldA) [Mass fraction] 100 % Jaime Davis MD Work Phone: [facility] 09-15-2023 09:29-0400 Systolic blood pressure 137 mm[Hg] Jaime Davis MD Work Phone: [facility] 09-06-2023 06:34-0400 Body height 170.2 cm Jaime Davis MD Work Phone: [facility] 09-06-2023 06:34-0400 Body mass index (BMI) [Ratio] 21.93 kg/m2 Jaime Davis MD Work Phone: [facility] 09-06-2023 06:34-0400 Body temperature 97.3 [degF] Jaime Davis MD Work Phone: [facility] 09-06-2023 06:34-0400 Body weight 63.5 kg Jaime Davis MD Work Phone: [facility] 09-06-2023 06:34-0400 Diastolic blood pressure 75 mm[Hg] Jaime Davis MD Work Phone: [facility] 09-06-2023 06:34-0400 Heart rate 89 /min Jaime Davis MD Work Phone: [facility] 09-06-2023 06:34-0400 Respiratory rate 16 /min Jaime Davis MD Work Phone: [facility] 09-06-2023 06:34-0400 SaO2% (BldA) [Mass fraction] 100 % Jaime Davis MD Work Phone: [facility] 09-06-2023 06:34-0400 Systolic blood pressure 123 mm[Hg] Jaime Davis MD Work Phone: [facility] 09-06-2023 05:07-0400 Body temperature 98.2 [degF] Jonny Xiao MD Work Phone: [facility] 09-06-2023 05:07-0400 Body weight 63.5 kg Jonny Xiao MD Work Phone: [facility] 09-06-2023 05:07-0400 Diastolic blood pressure 86 mm[Hg] Jonny Xiao MD Work Phone: [facility] 09-06-2023 05:07-0400 Heart rate 99 /min Jonny Xiao MD Work Phone: [facility] 09-06-2023 05:07-0400 Respiratory rate 16 /min Jonny Xiao MD Work Phone: [facility] 09-06-2023 05:07-0400 SaO2% (BldA) [Mass fraction] 100 % Jonny Xiao MD Work Phone: [facility] 09-06-2023 05:07-0400 Systolic blood pressure 139 mm[Hg] Jonny Xiao MD Work Phone: [facility] 09-05-2023 07:12-0400 Diastolic blood pressure 60 mm[Hg] [facility] 09-05-2023 07:12-0400 Heart rate 89 /min [facility] 09-05-2023 07:12-0400 Respiratory rate 19 /min [facility] 09-05-2023 07:12-0400 SaO2% (BldA) [Mass fraction] 100 % [facility] 09-05-2023 07:12-0400 Systolic blood pressure 155 mm[Hg] [facility] 09-05-2023 05:40-0400 Body height 170.18 cm [facility] 09-05-2023 05:40-0400 Body mass index (BMI) [Ratio] 21.8 kg/m2 [facility] 09-05-2023 05:40-0400 Body temperature 97.4 [degF] [facility] 09-05-2023 05:40-0400 Body weight 63 kg [facility] 09-02-2023 11:30-0400 Body mass index (BMI) [Ratio] 21.93 kg/m2 Jae Sommer MD Work Phone: [facility] 09-02-2023 11:30-0400 Body weight 63.5 kg Jae Sommer MD [facility] 09-02-2023 11:24-0400 Body temperature 98.4 [degF] Jae [facility]mer MD [facility] 09-02-2023 11:24-0400 Diastolic blood pressure 72 mm[Hg] Jae Sommer MD [facility] 09-02-2023 11:24-0400 Heart rate 86 /min Jae Sommer MD [facility] 09-02-2023 11:24-0400 Respiratory rate 18 /min Jae Sommer MD [facility] Phone[facility] 09-02-2023 11:24-0400 SaO2% (BldA) [Mass fraction] 97 % Jae Sommer MD Work Phone: [facility] [employer] 09-02-2023 11:24-0400 Systolic blood pressure 113 mm[Hg] Jae Sommer MD Work Phone: [facility] [employer] 08-20-2023 08:13-0400 Body height 170.2 cm Trisha Hodakievic RATE INSERTER.TECHNICAL APPLICATIONS SPECIALIST Work Phone: [facility] 08-20-2023 08:13-0400 Body mass index (BMI) [Ratio] 21.93 kg/m2 Trisha Tenorio RATE INSERTER.TECHNICAL APPLICATIONS SPECIALIST Work Phone: [facility] 08-20-2023 08:13-0400 Body weight 63.5 kg Trisha Goeljuan j RATE INSERTER.TECHNICAL APPLICATIONS SPECIALIST Work Phone: [facility] 08-15-2023 10:45-0400 Diastolic Blood Pressure Non-Invasive 88 mm[Hg] BRO CHAVEZ DO [facility] 08-15-2023 10:45-0400 Heart rate 88 /min BRO CHAVEZ DO [employer] [facility] 08-15-2023 10:45-0400 Systolic Blood Pressure Non-Invasive 168 mm[Hg] BRO CHAVEZ DO [facility] 08-15-2023 06:58-0400 Diastolic Blood Pressure Non-Invasive 142 mm[Hg] BRO CHAVEZ DO [facility] 08-15-2023 06:58-0400 Systolic Blood Pressure Non-Invasive 173 mm[Hg] BRO CHAVEZ DO [employer] [facility] 08-15-2023 06:55-0400 Diastolic Blood Pressure Non-Invasive 135 mm[Hg] BRO CHAVEZ DO [facility] 08-15-2023 06:55-0400 Heart rate 88 /min BRO CHAVEZ DO [facility] 08-15-2023 06:55-0400 Systolic Blood Pressure Non-Invasive 163 mm[Hg] BRO CHAVEZ DO [employer] [facility] 08-15-2023 04:30-0400 Body temperature 97.52 [degF] BRO CHAVEZ DO [facility] 08-15-2023 04:30-0400 Body weight 62.8 kg BRO CHAVEZ DO [facility] 08-15-2023 04:30-0400 Heart rate 110 /min BRO CHAVEZ DO [facility] 08-15-2023 04:30-0400 Respiratory rate 20 /min [facility] 08-13-2023 15:56-0400 Diastolic blood pressure 78 mm[Hg] Jaime Davis MD Work Phone: [facility] 08-13-2023 15:56-0400 Systolic blood pressure 122 mm[Hg] Jaime Davis MD Work Phone: [facility] 08-13-2023 15:54-0400 Body height 170.2 cm Jaime Davis MD Work Phone: [facility] 08-13-2023 15:54-0400 Body mass index (BMI) [Ratio] 21.93 kg/m2 Jaime Davis MD Work Phone: [facility] 08-13-2023 15:54-0400 Body temperature 97.39 [degF] Jaime Davis MD Work Phone: [facility] 08-13-2023 15:54-0400 Body weight 63.5 kg Jaime Davis MD Work Phone: [facility] 08-13-2023 15:54-0400 Heart rate 117 /min Jaime Davis MD Work Phone: [facility] 08-13-2023 15:54-0400 Respiratory rate 18 /min Jaime Davis MD Work Phone: [facility] 08-13-2023 15:54-0400 SaO2% (BldA) [Mass fraction] 98 % Jaime Davis MD Work Phone: [facility] 08-13-2023 05:26-0400 Body height 162.6 cm [employer] [facility] 08-13-2023 05:26-0400 Body mass index (BMI) [Ratio] 24.03 kg/m2 [facility] 08-13-2023 05:26-0400 Body weight 63.5 kg [facility] [employer] [facility] 08-13-2023 05:25-0400 Body temperature 98.29 [degF] [facility] [employer] [facility] 08-13-2023 05:25-0400 Diastolic blood pressure 103 mm[Hg] [facility] 08-13-2023 05:25-0400 Heart rate 80 /min [facility] 08-13-2023 05:25-0400 Respiratory rate 20 /min [facility] [employer] [facility] 08-13-2023 05:25-0400 SaO2% (BldA) [Mass fraction] 99 % [facility] 08-13-2023 05:25-0400 Systolic blood pressure 180 mm[Hg] [facility] 08-12-2023 08:23-0400 Body height 162.6 cm Gillian Sosa DO Work Phone: [facility] 08-12-2023 08:23-0400 Body mass index (BMI) [Ratio] 25.06 kg/m2 Gillian Sosa DO Work Phone: [facility] 08-12-2023 08:23-0400 Body temperature 98.2 [degF] Gillian Shoemakerrey DO Work Phone: [facility] 08-12-2023 08:23-0400 Body weight 66.22 kg Gillian Shoemakerrey DO Work Phone: [facility] 08-12-2023 08:23-0400 Diastolic blood pressure 88 mm[Hg] Gillian Hanksphrey DO Work Phone: [facility] 08-12-2023 08:23-0400 Heart rate 113 /min Gillian Hanksphrey DO Work Phone: [facility] 08-12-2023 08:23-0400 Respiratory rate 19 /min Gillian Hanksphrey DO Work Phone: [facility] 08-12-2023 08:23-0400 SaO2% (BldA) [Mass fraction] 98 % Gillian Sosa DO Work Phone: [facility] 08-12-2023 08:23-0400 Systolic blood pressure 152 mm[Hg] Gillian Sosa DO Work Phone: [facility] 08-10-2023 09:37-0400 Body height 170.18 cm Babs Lou Work Phone: [facility] 08-10-2023 09:37-0400 Body temperature 98.06 [degF] Babs Lou Work Phone: [facility] 08-10-2023 09:37-0400 Body weight 63.04 kg Babs Lou Work Phone: [facility] 08-10-2023 09:37-0400 Diastolic blood pressure 95 mm[Hg] Babs Lou Work Phone: [facility] 08-10-2023 09:37-0400 Heart rate 106 /min Babs Lou Work Phone: [facility] 08-10-2023 09:37-0400 Respiratory rate 18 /min Babs Lou Work Phone: [facility] 08-10-2023 09:37-0400 SaO2% (BldA) [Mass fraction] 100 % Babs Lou Work Phone: [facility] 08-10-2023 09:37-0400 Systolic blood pressure 167 mm[Hg] Babs Lou Work Phone: [facility] 08-06-2023 06:19-0400 Body temperature 98.2 [degF] Rosalie South Renovo DO Work Phone: [facility] 08-06-2023 06:19-0400 Diastolic blood pressure 100 mm[Hg] Rosalie Chevy DO Work Phone: [facility] 08-06-2023 06:19-0400 Heart rate 112 /min Rosalie South Renovo DO Work Phone: [facility] 08-06-2023 06:19-0400 Respiratory rate 18 /min Rosalie South Renovo DO Work Phone: [facility] 08-06-2023 06:19-0400 SaO2% (BldA) [Mass fraction] 98 % Rosalie South Renovo DO Work Phone: [facility] 08-06-2023 06:19-0400 Systolic blood pressure 149 mm[Hg] Rosalie South Renovo DO Work Phone: [facility] 08-01-2023 08:24-0400 Diastolic blood pressure 79 mm[Hg] [facility] 08-01-2023 08:24-0400 Heart rate 89 /min [facility] 08-01-2023 08:24-0400 Respiratory rate 18 /min [facility] 08-01-2023 08:24-0400 SaO2% (BldA) [Mass fraction] 99 % [facility] 08-01-2023 08:24-0400 Systolic blood pressure 120 mm[Hg] [facility] 08-01-2023 06:36-0400 Body height 170.18 cm [facility] 08-01-2023 06:36-0400 Body mass index (BMI) [Ratio] 22.3 kg/m2 [facility] 08-01-2023 06:36-0400 Body temperature 97.9 [degF] [facility] 08-01-2023 06:36-0400 Body weight 64.7 kg [facility] 07-12-2023 05:45-0400 Body temperature 97.1 [degF] [facility] 07-12-2023 05:45-0400 Diastolic blood pressure 92 mm[Hg] [facility] 07-12-2023 05:45-0400 Heart rate 110 /min [facility] 07-12-2023 05:45-0400 Respiratory rate 18 /min [facility] 07-12-2023 05:45-0400 SaO2% (BldA) [Mass fraction] 99 % [facility] 07-12-2023 05:45-0400 Systolic blood pressure 169 mm[Hg] [facility] 07-12-2023 04:46-0400 Body height 170.18 cm [facility] 07-12-2023 04:46-0400 Body mass index (BMI) [Ratio] 9.9 kg/m2 [facility] 07-12-2023 04:46-0400 Body weight 28.89 kg [facility] 07-09-2023 08:34-0400 Body mass index (BMI) [Ratio] 21.93 kg/m2 Shady Jeremy DO [facility] Phone: [facility] 07-09-2023 08:34-0400 Body weight 63.5 kg Shady Jeremy DO [facility] 07-09-2023 08:22-0400 Body temperature 98.29 [degF] Shadyyessi Suarez DO [facility] Phone: [facility] 07-09-2023 08:22-0400 Diastolic blood pressure 106 mm[Hg] Shady Suarez DO Work Phone: [facility] [employer] 07-09-2023 08:22-0400 Heart rate 92 /min Shady Suarez DO Work Phone: [facility] [employer] 07-09-2023 08:22-0400 Respiratory rate 16 /min Shady Jeremy DO Work Phone: [facility] [employer] 07-09-2023 08:22-0400 SaO2% (BldA) [Mass fraction] 97 % Shady Jeremy DO Work Phone: [facility] [employer] 07-09-2023 08:22-0400 Systolic blood pressure 160 mm[Hg] Shady Suarez DO Work Phone: [facility] [employer] 06-15-2023 14:22-0400 Diastolic blood pressure 79 mm[Hg] Babs Lou [facility] 06-15-2023 14:22-0400 Heart rate 75 /min Babs Lou [facility] 06-15-2023 14:22-0400 Respiratory rate 18 /min Babs Lou [facility] 06-15-2023 14:22-0400 SaO2% (BldA) [Mass fraction] 100 % Babs Lou [facility] 06-15-2023 14:22-0400 Systolic blood pressure 131 mm[Hg] Babs Lou [facility] 06-15-2023 12:22-0400 Diastolic blood pressure 79 mm[Hg] Babs Lou Work Phone: [facility] 06-15-2023 12:22-0400 Heart rate 75 /min Babs Lou Work Phone: [facility] 06-15-2023 12:22-0400 Respiratory rate 18 /min Babs Lou Work Phone: [facility] 06-15-2023 12:22-0400 SaO2% (BldA) [Mass fraction] 100 % Babs Lou Work Phone: [facility] 06-15-2023 12:22-0400 Systolic blood pressure 131 mm[Hg] Babs Lou Work Phone: [facility] 06-15-2023 11:29-0400 Body temperature 98 [degF] Babs Lou [facility] 06-15-2023 11:29-0400 Body weight 63.049 Babs Lou [facility] 06-15-2023 09:29-0400 Body temperature 98.06 [degF] Babs Lou Work Phone: [facility] 06-15-2023 09:29-0400 Body weight 63.04 kg Babs Lou Work Phone: [facility] 06-02-2023 04:43-0400 Body height 170.18 cm [facility] 06-02-2023 04:43-0400 Body mass index (BMI) [Ratio] 24.9 kg/m2 [facility] 06-02-2023 04:43-0400 Body temperature 96.4 [degF] [facility] 06-02-2023 04:43-0400 Body weight 72 kg [facility] 06-02-2023 04:43-0400 Diastolic blood pressure 118 mm[Hg] [facility] 06-02-2023 04:43-0400 Heart rate 88 /min [facility] 06-02-2023 04:43-0400 Respiratory rate 20 /min [facility] 06-02-2023 04:43-0400 SaO2% (BldA) [Mass fraction] 100 % [facility] 06-02-2023 04:43-0400 Systolic blood pressure 143 mm[Hg] [facility] 06-02-2023 03:35-0400 Body height 170.18 cm Jaime Davis Work Phone: [facility] 06-02-2023 03:35-0400 Body weight 61.24 kg Jaime Davis Work Phone: [facility] 06-02-2023 03:06-0400 Body temperature 97.9 [degF] Jaime Davis Work Phone: [facility] 06-02-2023 03:06-0400 Diastolic blood pressure 97 mm[Hg] Jaime Davis Work Phone: [facility] 06-02-2023 03:06-0400 Heart rate 98 /min Jaime Davis Work Phone: [facility] 06-02-2023 03:06-0400 Respiratory rate 16 /min Jaime Davis Work Phone: [facility] 06-02-2023 03:06-0400 SaO2% (BldA) [Mass fraction] 100 % Jaime Davis Work Phone: [facility] 06-02-2023 03:06-0400 Systolic blood pressure 164 mm[Hg] Jaime Davis Work Phone: [facility] 05-31-2023 09:45-0400 Body height 170.2 cm Humairam Selvin RACHEL Work Phone: [facility] [employer] 05-31-2023 09:45-0400 Body mass index (BMI) [Ratio] 21.14 kg/m2 Basem Selvin RACHEL Work Phone: [facility] [employer] 05-31-2023 09:45-0400 Body weight 61.24 kg Maria Elena Montalvo MD Work Phone: [facility] [employer] 05-31-2023 09:45-0400 Diastolic blood pressure 99 mm[Hg] Basem Selvin RACHEL Work Phone: [facility] [employer] 05-31-2023 09:45-0400 Heart rate 99 /min Basem Selvin RACHEL Work Phone: [facility] [employer] 05-31-2023 09:45-0400 Respiratory rate 18 /min Maria Elena Montalvo MD Work Phone: [facility] [employer] 05-31-2023 09:45-0400 SaO2% (BldA) [Mass fraction] 100 % Baseed[employer]ard Montalvo MD Work Phone: [facility] [facility] 05-31-2023 09:45-0400 Systolic blood pressure 157 mm[Hg] Humairam Selvin RACHEL Work Phone: [employer] 05-31-2023 09:38-0400 Body temperature 97.2 [degF] Maria Elena Montalvo MD Work Phone: [facility] [employer] 05-30-2023 17:34-0400 Body temperature 97.9 [degF] [facility] 05-30-2023 17:34-0400 Diastolic blood pressure 78 mm[Hg] [facility] 05-30-2023 17:34-0400 Heart rate 80 /min [facility] 05-30-2023 17:34-0400 Respiratory rate 16 /min [facility] 05-30-2023 17:34-0400 SaO2% (BldA) [Mass fraction] 100 % [facility] 05-30-2023 17:34-0400 Systolic blood pressure 140 mm[Hg] [facility] 05-30-2023 15:49-0400 Body height 170.18 cm [facility] 05-30-2023 15:49-0400 Body mass index (BMI) [Ratio] 21.1 kg/m2 [facility] 05-30-2023 15:49-0400 Body weight 61.23 kg [facility] 05-17-2023 11:29-0400 Diastolic blood pressure 92 mm[Hg] [facility] 05-17-2023 11:29-0400 Heart rate 99 /min [facility] 05-17-2023 11:29-0400 Respiratory rate 20 /min [facility] 05-17-2023 11:29-0400 SaO2% (BldA) [Mass fraction] 100 % [facility] 05-17-2023 11:29-0400 Systolic blood pressure 142 mm[Hg] [facility] 05-17-2023 08:26-0400 Body height 162.56 cm [facility] 05-17-2023 08:26-0400 Body mass index (BMI) [Ratio] 24.6 kg/m2 [facility] 05-17-2023 08:26-0400 Body temperature 98 [degF] [facility] 05-17-2023 08:26-0400 Body weight 65 kg [facility] 05-16-2023 06:08-0400 Diastolic Blood Pressure Non-Invasive 90 mm[Hg] RYANNE HENLEY MD [facility] 05-16-2023 06:08-0400 Heart rate 104 /min RYANNE HENLEY MD [facility] 05-16-2023 06:08-0400 Respiratory rate 18 /min RYANNE HENLEY MD [facility] 05-16-2023 06:08-0400 Systolic Blood Pressure Non-Invasive 128 mm[Hg] RYANNE HENLEY MD [facility] 05-16-2023 04:33-0400 Body temperature 98.06 [degF] RYANNE HENLEY MD [facility] 05-16-2023 04:33-0400 Body weight 63.5 kg RYANNE HENLEY MD [facility] 05-16-2023 04:33-0400 Diastolic Blood Pressure Non-Invasive 90 mm[Hg] RYANNE HENLEY MD [facility] 05-16-2023 04:33-0400 Heart rate 122 /min RYANNE HENLEY MD [facility] 05-16-2023 04:33-0400 Respiratory rate 18 /min RYANNE HENLEY MD [facility] 05-16-2023 04:33-0400 Systolic Blood Pressure Non-Invasive 129 mm[Hg] RYANNE HENLEY MD [facility] 05-06-2023 17:07-0500 Diastolic blood pressure 71 mm[Hg] Bro Mckinley Work Phone: [employer] 05-06-2023 17:07-0500 Heart rate 98 /min Bro Mckinley DO Work Phone: [employer] 05-06-2023 17:07-0500 Systolic blood pressure 109 mm[Hg] Bro Mckinley Work Phone: [employer] 05-06-2023 13:48-0500 Body height 170.2 cm Bro Leungrell Work Phone: [employer] 05-06-2023 13:48-0500 Body mass index (BMI) [Ratio] 21.14 kg/m2 Bro Mckinley Work Phone: [facility] [employer] 05-06-2023 13:48-0500 Body temperature 98.8 [degF] Bro Mckinley DO Work Phone: [facility] [employer] 05-06-2023 13:48-0500 Body weight 61.24 kg Bro Mckinley DO Work Phone: [facility] [employer] 05-06-2023 13:48-0500 Respiratory rate 16 /min Bro Mckinley DO Work Phone: [facility] [employer] 05-06-2023 13:48-0500 SaO2% (BldA) [Mass fraction] 100 % Bro Mckinley DO Work Phone: [facility] [employer] 04-25-2023 12:52-0500 Diastolic blood pressure 68 mm[Hg] Jae Sommer MD Work Phone: [employer] 04-25-2023 12:52-0500 Heart rate 84 /min Jae Sommer MD Work Phone: [employer] 04-25-2023 12:52-0500 Respiratory rate 14 /min Jae Sommer MD Work Phone: [facility] [employer] 04-25-2023 12:52-0500 SaO2% (BldA) [Mass fraction] 100 % Jae Sommer MD Work Phone: [employer] 04-25-2023 12:52-0500 Systolic blood pressure 116 mm[Hg] Jae Sommer MD Work Phone: [facility] [employer] 04-25-2023 11:07-0500 Body temperature 98.4 [degF] Jae Sommer MD Work Phone: [employer] 04-04-2023 08:14-0500 Diastolic blood pressure 90 mm[Hg] [facility] 04-04-2023 08:14-0500 Heart rate 94 /min [facility] 04-04-2023 08:14-0500 Respiratory rate 18 /min [facility] 04-04-2023 08:14-0500 SaO2% (BldA) [Mass fraction] 98 % [facility] 04-04-2023 08:14-0500 Systolic blood pressure 130 mm[Hg] [facility] 04-04-2023 06:33-0500 Body temperature 97.2 [degF] [facility] 04-04-2023 06:31-0500 Body height 170.18 cm [facility] 04-04-2023 06:31-0500 Body mass index (BMI) [Ratio] 21.1 kg/m2 [facility] 04-04-2023 06:31-0500 Body weight 61 kg [facility] 03-10-2023 04:40-0500 Body height 170.2 cm Saul Kuhn MD Work Phone: [facility] 03-10-2023 04:40-0500 Body mass index (BMI) [Ratio] 21.14 kg/m2 Saul Kuhn MD Work Phone: [facility] 03-10-2023 04:40-0500 Body temperature 97.39 [degF] Saul Kuhn MD Work Phone: [facility] 03-10-2023 04:40-0500 Body weight 61.24 kg Saul Kuhn MD Work Phone: [facility] 03-10-2023 04:40-0500 Diastolic blood pressure 81 mm[Hg] Saul Kuhn MD Work Phone: [facility] 03-10-2023 04:40-0500 Heart rate 100 /min Saul Kuhn MD Work Phone: [facility] 03-10-2023 04:40-0500 Respiratory rate 18 /min Saul Kuhn MD Work Phone: [facility] 03-10-2023 04:40-0500 SaO2% (BldA) [Mass fraction] 99 % Saul Kuhn MD Work Phone: [facility] 03-10-2023 04:40-0500 Systolic blood pressure 113 mm[Hg] Saul Kuhn MD Work Phone: [facility] 03-07-2023 07:56-0500 Diastolic blood pressure 81 mm[Hg] Jaime Davis Work Phone: [facility] 03-07-2023 07:56-0500 Heart rate 95 /min Jaime Davis Work Phone: [facility] 03-07-2023 07:56-0500 Respiratory rate 18 /min Jaime Davis Work Phone: [facility] 03-07-2023 07:56-0500 SaO2% (BldA) [Mass fraction] 97 % Jaime Davis Work Phone: [facility] 03-07-2023 07:56-0500 Systolic blood pressure 116 mm[Hg] Jaime Davis Work Phone: [facility] 03-07-2023 07:37-0500 Body height 170.18 cm Jaime Davis Work Phone: [facility] 03-07-2023 07:37-0500 Body weight 61.24 kg Jaime Davis Work Phone: [facility] 03-07-2023 02:04-0500 Body temperature 97.7 [degF] Jaime Davis Work Phone: [facility] 03-04-2023 11:31-0500 Body height 170.2 cm Jessenia Ramirezjoy Work Phone: [employer] 03-04-2023 11:31-0500 Body mass index (BMI) [Ratio] 21.14 kg/m2 Jessenia Miller DO Work Phone: [employer] 03-04-2023 11:31-0500 Body temperature 99 [degF] Jessenia Miller DO Work Phone: [employer] 03-04-2023 11:31-0500 Body weight 61.24 kg Jessenia Miller DO Work Phone: [facility] [employer] 03-04-2023 11:31-0500 Diastolic blood pressure 92 mm[Hg] Jessenia Miller DO Work Phone: [facility] [employer] 03-04-2023 11:31-0500 Heart rate 105 /min Jessenia Miller [facility] 03-04-2023 11:31-0500 Respiratory rate 16 /min Jessenia Miller DO [facility] 03-04-2023 11:31-0500 SaO2% (BldA) [Mass fraction] 99 % Jessenia Miller DO Work Phone: [facility] [employer] 03-04-2023 11:31-0500 Systolic blood pressure 132 mm[Hg] Jessenia Miller DO [facility] 02-07-2023 17:45-0500 Body temperature 98.2 [degF] Jaime Davis [facility] 02-07-2023 17:45-0500 Body weight 60.328 Jaime Davis [facility] 02-07-2023 17:45-0500 Diastolic blood pressure 85 mm[Hg] Jaime Davis [facility] 02-07-2023 17:45-0500 Heart rate 99 /min Jaime Davis [facility] 02-07-2023 17:45-0500 Respiratory rate 16 /min Jaime Davis [facility] 02-07-2023 17:45-0500 SaO2% (BldA) [Mass fraction] 100 % Jaime Davis [facility] 02-07-2023 17:45-0500 Systolic blood pressure 125 mm[Hg] Jaime Davis [facility] 02-07-2023 15:45-0500 Body temperature 98.24 [degF] Babs Lou Work Phone: [facility] 02-07-2023 15:45-0500 Body weight 60.32 kg Babs Lou Work Phone: [facility] 02-07-2023 15:45-0500 Diastolic blood pressure 85 mm[Hg] Babs Lou Work Phone: [facility] 02-07-2023 15:45-0500 Heart rate 99 /min Babs Lou Work Phone: [facility] 02-07-2023 15:45-0500 Respiratory rate 16 /min Babs Lou Work Phone: [facility] 02-07-2023 15:45-0500 SaO2% (BldA) [Mass fraction] 100 % Babs Lou Work Phone: [facility] 02-07-2023 15:45-0500 Systolic blood pressure 125 mm[Hg] Babs Lou Work Phone: [facility] 02-05-2023 17:38-0500 Diastolic blood pressure 70 mm[Hg] Jaime Davis MD Work Phone: [facility] 02-05-2023 17:38-0500 Heart rate 90 /min Jaime Davis MD Work Phone: [facility] 02-05-2023 17:38-0500 Respiratory rate 20 /min Jaime Davis MD Work Phone: [facility] 02-05-2023 17:38-0500 SaO2% (BldA) [Mass fraction] 98 % Jaime Davis MD Work Phone: [facility] 02-05-2023 17:38-0500 Systolic blood pressure 138 mm[Hg] Jaime Davis MD Work Phone: [facility] 02-05-2023 16:09-0500 Body height 170.2 cm Jaime Davis MD Work Phone: [facility] 02-05-2023 16:09-0500 Body mass index (BMI) [Ratio] 21.14 kg/m2 Jaime Davis MD Work Phone: [facility] 02-05-2023 16:09-0500 Body temperature 98.29 [degF] Jaime Davis MD Work Phone: [facility] 02-05-2023 16:09-0500 Body weight 61.24 kg Jaime Davis MD Work Phone: [facility] 12-23-2022 15:29-0400 Body temperature 97.52 [degF] Babs Lou Work Phone: [facility] 12-23-2022 15:29-0400 Body weight 60.69 kg Babs Lou Work Phone: [facility] 12-23-2022 15:29-0400 Diastolic blood pressure 90 mm[Hg] Babs Lou Work Phone: [facility] 12-23-2022 15:29-0400 Heart rate 107 /min Babs Lou Work Phone: [facility] 12-23-2022 15:29-0400 Respiratory rate 20 /min Babs Lou Work Phone: [facility] 12-23-2022 15:29-0400 SaO2% (BldA) [Mass fraction] 100 % Babs Lou Work Phone: [facility] 12-23-2022 15:29-0400 Systolic blood pressure 132 mm[Hg] Babs Lou Work Phone: [facility] 12-21-2022 15:49-0400 Diastolic blood pressure 76 mm[Hg] Jaime Davis Work Phone: [facility] 12-21-2022 15:49-0400 Heart rate 90 /min Jaime Davis Work Phone: [facility] 12-21-2022 15:49-0400 Respiratory rate 20 /min Jaime Davis Work Phone: [facility] 12-21-2022 15:49-0400 SaO2% (BldA) [Mass fraction] 100 % Jaime Davis Work Phone: [facility] 12-21-2022 15:49-0400 Systolic blood pressure 150 mm[Hg] Jaime Davis Work Phone: [facility] 12-21-2022 14:32-0400 Body height 170.18 cm Jaime Davis Work Phone: [facility] 12-21-2022 14:32-0400 Body weight 61.24 kg Jaime Davis Work Phone: [facility] 12-21-2022 13:21-0400 Body temperature 97.9 [degF] Jaime Davis Work Phone: [facility] 12-04-2022 09:17-0400 Body height 170 cm Saul Kuhn MD Work Phone: [facility] 12-04-2022 09:17-0400 Body mass index (BMI) [Ratio] 21.11 kg/m2 Saul Kuhn MD Work Phone: [facility] 12-04-2022 09:17-0400 Body temperature 98.01 [degF] Saul Kuhn MD Work Phone: [facility] 12-04-2022 09:17-0400 Body weight 61 kg Saul Kuhn MD Work Phone: [facility] 12-04-2022 09:17-0400 Diastolic blood pressure 80 mm[Hg] Saul Kuhn MD Work Phone: [facility] 12-04-2022 09:17-0400 Heart rate 88 /min Saul Kuhn MD Work Phone: [facility] 12-04-2022 09:17-0400 Respiratory rate 18 /min Saul Kuhn MD Work Phone: [facility] 12-04-2022 09:17-0400 SaO2% (BldA) [Mass fraction] 99 % Saul Kuhn MD Work Phone: [facility] 12-04-2022 09:17-0400 Systolic blood pressure 123 mm[Hg] Saul Kuhn MD Work Phone: [facility] 11-25-2022 14:35-0400 Diastolic blood pressure 82 mm[Hg] Jaime Davis Work Phone: [facility] 11-25-2022 14:35-0400 Heart rate 82 /min Jaime Davis Work Phone: [facility] 11-25-2022 14:35-0400 Respiratory rate 18 /min Jaime Davis Work Phone: [facility] 11-25-2022 14:35-0400 SaO2% (BldA) [Mass fraction] 99 % Jaime Davis Work Phone: [facility] 11-25-2022 14:35-0400 Systolic blood pressure 126 mm[Hg] Jaime Davis Work Phone: [facility] 11-25-2022 11:16-0400 Body height 170.18 cm Jaime Davis Work Phone: [facility] 11-25-2022 11:16-0400 Body weight 61.24 kg Jaime Davis Work Phone: [facility] 11-25-2022 10:50-0400 Body temperature 97.8 [degF] Jaime Davis Work Phone: [facility] 11-19-2022 20:42-0400 Body temperature 97.1 [degF] Jaime Davis [facility] 11-19-2022 20:42-0400 Body weight 61.235 Jaime Davis [facility] 11-19-2022 20:42-0400 Diastolic blood pressure 91 mm[Hg] Jaime Davis [facility] 11-19-2022 20:42-0400 Heart rate 87 /min Jaime Davis [facility] 11-19-2022 20:42-0400 Respiratory rate 19 /min Jaime Davis [facility] 11-19-2022 20:42-0400 SaO2% (BldA) [Mass fraction] 99 % Jaime Davis [facility] 11-19-2022 20:42-0400 Systolic blood pressure 131 mm[Hg] Jaime Davis [facility] 11-19-2022 18:42-0400 Body temperature 97.16 [degF] Babs Lou Work Phone: [facility] 11-19-2022 18:42-0400 Body weight 61.23 kg Babs Lou Work Phone: [facility] 11-19-2022 18:42-0400 Diastolic blood pressure 91 mm[Hg] Babs Lou Work Phone: [facility] 11-19-2022 18:42-0400 Heart rate 87 /min Babs Lou Work Phone: [facility] 11-19-2022 18:42-0400 Respiratory rate 19 /min Babs Carmine Work Phone: [facility] 11-19-2022 18:42-0400 SaO2% (BldA) [Mass fraction] 99 % Babs Lou Work Phone: [facility] 11-19-2022 18:42-0400 Systolic blood pressure 131 mm[Hg] Babs Carmine Work Phone: [facility] 10-31-2022 08:00-0400 Body temperature 97 [degF] Venecia Corey MD Work Phone: [facility] 10-31-2022 08:00-0400 Body weight 66.68 kg Venecia Corey MD [facility] 10-31-2022 08:00-0400 Diastolic blood pressure 82 mm[Hg] Venecia Corey MD Work Phone: [facility] 10-31-2022 08:00-0400 Heart rate 96 /min Venecia Corey MD Work Phone: [facility] [facility] 10-31-2022 08:00-0400 Respiratory rate 16 /min Venecia Corey MD Work Phone: [facility] [facility] 10-31-2022 08:00-0400 SaO2% (BldA) [Mass fraction] 100 % Venecia Corey MD Work Phone: [facility] 10-31-2022 08:00-0400 Systolic blood pressure 114 mm[Hg] Venecia Corey MD Work Phone: [employer] 10-24-2022 08:19-0400 Body height 170.2 cm Mariam Stoll APRN.CNP, DNP Work Phone: [facility] 10-24-2022 08:19-0400 Body weight 61.69 kg Mariam Stoll APRN.CNP, DNP Work Phone: [facility] 10-24-2022 08:19-0400 Diastolic blood pressure 86 mm[Hg] Mariam Stoll APRN.CNP, DNP Work Phone: [facility] 10-24-2022 08:19-0400 Heart rate 84 /min Mariam Stoll RATE INSERTER.TECHNICAL APPLICATIONS SPECIALIST, DNP Work Phone: [facility] 10-24-2022 08:19-0400 SaO2% (BldA) [Mass fraction] 98 % Mariam Stoll RATE INSERTER.TECHNICAL APPLICATIONS SPECIALIST, DNP Work Phone: [facility] 10-24-2022 08:19-0400 Systolic blood pressure 122 mm[Hg] Mraiam Stoll RATE INSERTER.TECHNICAL APPLICATIONS SPECIALIST, DNP Work Phone: [facility] 10-22-2022 09:05-0400 Body temperature 98.01 [degF] Ahmed Elghawy DO Work Phone: [facility] 10-22-2022 09:05-0400 Body weight 61.83 kg Ahmed Elghawy DO Work Phone: [facility] 10-22-2022 09:05-0400 Diastolic blood pressure 84 mm[Hg] Ahmed Elghawy DO Work Phone: [facility] 10-22-2022 09:05-0400 Heart rate 97 /min Ahmed Elghawy DO Work Phone: [facility] 10-22-2022 09:05-0400 Systolic blood pressure 129 mm[Hg] Ahmed Elghawy DO Work Phone: [facility] 10-06-2022 21:40-0400 Body temperature 97.7 [degF] Jaime Davis [facility] 10-06-2022 21:40-0400 Diastolic blood pressure 87 mm[Hg] Jaime Davis [facility] 10-06-2022 21:40-0400 Heart rate 80 /min Jaime Davis [facility] 10-06-2022 21:40-0400 Respiratory rate 18 /min Jaime Davis [facility] 10-06-2022 21:40-0400 SaO2% (BldA) [Mass fraction] 99 % Jaime Davis [facility] 10-06-2022 21:40-0400 Systolic blood pressure 129 mm[Hg] Jaime Davis [facility] 10-06-2022 17:22-0400 Body height 170.1 cm Jaime Davis [facility] 10-06-2022 17:22-0400 Body weight 61.5 kg Jaime Davis [facility] 09-25-2022 13:37-0400 Body height 170.18 cm Jaime Davis [facility] 09-25-2022 11:37-0400 Body height 170.18 cm Babs Lou Work Phone: [facility] 09-25-2022 11:37-0400 Body temperature 98.42 [degF] Babs Lou Work Phone: [facility] 09-25-2022 11:37-0400 Body weight 61.68 kg Babs Lou Work Phone: [facility] 09-25-2022 11:37-0400 Diastolic blood pressure 92 mm[Hg] Babs Lou Work Phone: [facility] 09-25-2022 11:37-0400 Heart rate 102 /min Babs Lou Work Phone: [facility] 09-25-2022 11:37-0400 Respiratory rate 19 /min Babs Lou Work Phone: [facility] 09-25-2022 11:37-0400 SaO2% (BldA) [Mass fraction] 100 % Babs Lou Work Phone: [facility] 09-25-2022 11:37-0400 Systolic blood pressure 142 mm[Hg] Babs Lou Work Phone: [facility] 09-20-2022 08:49-0400 Body height 170.18 cm [facility] 09-20-2022 08:49-0400 Body mass index (BMI) [Ratio] 21.9 kg/m2 [facility] 09-20-2022 08:49-0400 Body weight 63.5 kg [facility] 09-20-2022 08:49-0400 Diastolic blood pressure 75 mm[Hg] [facility] 09-20-2022 08:49-0400 Systolic blood pressure 116 mm[Hg] [facility] 09-03-2022 14:31-0400 Body height 170.1 cm Text Entry [facility] 09-03-2022 14:31-0400 Body temperature 97.34 [degF] Text Entry [facility] 09-03-2022 14:31-0400 Body weight 65 kg Text Entry [facility] 09-03-2022 14:31-0400 Diastolic blood pressure 103 mm[Hg] Text Entry Free [facility] 09-03-2022 14:31-0400 Heart rate 116 /min Text Entry Free [facility] 09-03-2022 14:31-0400 Respiratory rate 18 /min Text Entry [facility] 09-03-2022 14:31-0400 SaO2% (BldA) [Mass fraction] 99 % Text Entry [facility] 09-03-2022 14:31-0400 Systolic blood pressure 136 mm[Hg] Text Entry [facility] 08-28-2022 08:44-0400 Body temperature 96.98 [degF] Babs Lou Work Phone: [facility] 08-28-2022 08:44-0400 Body weight 63.5 kg Babs Lou Work Phone: [facility] 08-28-2022 08:44-0400 Diastolic blood pressure 93 mm[Hg] Babs Lou Work Phone: [facility] 08-28-2022 08:44-0400 Heart rate 86 /min Babs Lou Work Phone: [facility] 08-28-2022 08:44-0400 Respiratory rate 19 /min Babs Lou Work Phone: [facility] 08-28-2022 08:44-0400 SaO2% (BldA) [Mass fraction] 100 % Babs Lou Work Phone: [facility] 08-28-2022 08:44-0400 Systolic blood pressure 150 mm[Hg] Babs Lou Work Phone: [facility] 08-20-2022 11:30-0400 Body temperature 97.3 [degF] Jaime Davis [facility] 08-20-2022 11:30-0400 Body weight 66.678 Jaime Jones [facility] 08-20-2022 11:30-0400 Diastolic blood pressure 92 mm[Hg] Jaime Davis [facility] 08-20-2022 11:30-0400 Heart rate 109 /min Jaime Ryan [facility] 08-20-2022 11:30-0400 Respiratory rate 16 /min Jaime Jones [facility] 08-20-2022 11:30-0400 SaO2% (BldA) [Mass fraction] 100 % Jaime Ryan [facility] 08-20-2022 11:30-0400 Systolic blood pressure 152 mm[Hg] Jaime Davis [facility] 08-20-2022 09:30-0400 Body temperature 97.34 [degF] Babs Lou Work Phone: [facility] 08-20-2022 09:30-0400 Body weight 66.67 kg Babs Lou Work Phone: [facility] 08-20-2022 09:30-0400 Diastolic blood pressure 92 mm[Hg] Babs Lou Work Phone: [facility] 08-20-2022 09:30-0400 Heart rate 109 /min Babs Lou Work Phone: [facility] 08-20-2022 09:30-0400 Respiratory rate 16 /min Babs Lou Work Phone: [facility] 08-20-2022 09:30-0400 SaO2% (BldA) [Mass fraction] 100 % Babs Lou Work Phone: [facility] 08-20-2022 09:30-0400 Systolic blood pressure 152 mm[Hg] Babs Carmine Work Phone: [facility] 08-18-2022 10:17-0400 Body height 170.18 cm Jaime Davis [facility] 08-18-2022 10:17-0400 Body temperature 96.9 [degF] Jaime Davis [facility] 08-18-2022 10:17-0400 Body weight 61.235 Jaime Davis [facility] 08-18-2022 10:17-0400 Diastolic blood pressure 98 mm[Hg] Jaime Davis [facility] 08-18-2022 10:17-0400 Heart rate 92 /min Jaime Davis [facility] 08-18-2022 10:17-0400 Respiratory rate 20 /min Jaime Davis [facility] 08-18-2022 10:17-0400 SaO2% (BldA) [Mass fraction] 100 % Jaime Davis [facility] 08-18-2022 10:17-0400 Systolic blood pressure 148 mm[Hg] Jaime Davis [facility] 08-18-2022 08:17-0400 Body height 170.18 cm Babs Lou Work Phone: [facility] 08-18-2022 08:17-0400 Body temperature 96.98 [degF] Babs Lou Work Phone: [facility] 08-18-2022 08:17-0400 Body weight 61.23 kg Babs Lou Work Phone: [facility] 08-18-2022 08:17-0400 Diastolic blood pressure 98 mm[Hg] Babs Lou Work Phone: [facility] 08-18-2022 08:17-0400 Heart rate 92 /min Babs Lou Work Phone: [facility] 08-18-2022 08:17-0400 Respiratory rate 20 /min Babs Lou Work Phone: [facility] 08-18-2022 08:17-0400 SaO2% (BldA) [Mass fraction] 100 % Babs Lou Work Phone: [facility] 08-18-2022 08:17-0400 Systolic blood pressure 148 mm[Hg] Babs Lou Work Phone: [facility] 08-17-2022 18:16-0400 Heart rate 78 /min Jaime Davis [facility] 08-17-2022 18:11-0400 Body temperature 98 [degF] Jaime Davis [facility] [facility]2022 18:11-0400 Body weight 63.503 Jaime Davis [facility] 08-17-2022 18:11-0400 Diastolic blood pressure 100 mm[Hg] Jaime Davis [facility] 08-17-2022 18:11-0400 Respiratory rate 16 /min Jaime Davis [facility] 08-17-2022 18:11-0400 SaO2% (BldA) [Mass fraction] 100 % Jaime Davis [facility] 08-17-2022 18:11-0400 Systolic blood pressure 139 mm[Hg] Jaime Davis [facility] 08-17-2022 16:16-0400 Heart rate 78 /min Babs Lou Work Phone: [facility] 08-17-2022 16:11-0400 Body temperature 98.06 [degF] Babs Lou Work Phone: [facility] 08-17-2022 16:11-0400 Body weight 63.5 kg Babs Lou Work Phone: [facility] 08-17-2022 16:11-0400 Diastolic blood pressure 100 mm[Hg] Babs Lou Work Phone: [facility] 08-17-2022 16:11-0400 Respiratory rate 16 /min Babs Lou Work Phone: [facility] 08-17-2022 16:11-0400 SaO2% (BldA) [Mass fraction] 100 % Babs Lou Work Phone: [facility] 08-17-2022 16:11-0400 Systolic blood pressure 139 mm[Hg] Babs Lou Work Phone: [facility] 08-17-2022 07:15-0400 Body height 170.2 cm Babs Thomas DO Work Phone: [facility] 08-17-2022 07:15-0400 Body mass index (BMI) [Ratio] 21.14 kg/m2 Babs Thomas DO Work Phone: [facility] 08-17-2022 07:15-0400 Body weight 61.24 kg Babs Thomas DO Work Phone: [facility] 08-17-2022 07:15-0400 Diastolic blood pressure 78 mm[Hg] Babs Thomas DO Work Phone: [facility] 08-17-2022 07:15-0400 Heart rate 116 /min Babs Thomas DO Work Phone: [facility] 08-17-2022 07:15-0400 Respiratory rate 20 /min Babs Thomas DO Work Phone: [facility] 08-17-2022 07:15-0400 Systolic blood pressure 124 mm[Hg] Babs Thomas DO Work Phone: [facility] 08-17-2022 06:30-0400 Body temperature 98.01 [degF] Babs Thomas DO Work Phone: [facility] 08-17-2022 06:30-0400 SaO2% (BldA) [Mass fraction] 100 % Babs Thomas DO Work Phone: [facility] 08-12-2022 09:55-0400 Respiratory rate 18 /min Babs Lou Work Phone: [facility] 08-12-2022 08:44-0400 Body temperature 97.34 [degF] Babs Lou Work Phone: [facility] 08-12-2022 08:44-0400 Body weight 60.96 kg Babs Lou Work Phone: [facility] 08-12-2022 08:44-0400 Diastolic blood pressure 94 mm[Hg] Babs Lou Work Phone: [facility] 08-12-2022 08:44-0400 Heart rate 99 /min Babs Lou Work Phone: [facility] 08-12-2022 08:44-0400 SaO2% (BldA) [Mass fraction] 100 % Babs Lou Work Phone: [facility] 08-12-2022 08:44-0400 Systolic blood pressure 126 mm[Hg] Babs Lou Work Phone: [facility] 08-09-2022 09:22-0400 Body temperature 98.2 [degF] Donald White [facility] 08-09-2022 09:22-0400 Body weight 61.41 kg Donald White [facility] 08-09-2022 09:22-0400 Diastolic blood pressure 97 mm[Hg] Donald White [facility] 08-09-2022 09:22-0400 Heart rate 97 /min Donald White [facility] 08-09-2022 09:22-0400 Respiratory rate 18 /min Donald White [facility] 08-09-2022 09:22-0400 SaO2% (BldA) [Mass fraction] 100 % Donald White [facility] 08-09-2022 09:22-0400 Systolic blood pressure 129 mm[Hg] Donald White [facility] 08-07-2022 13:57-0400 Body height 170.1 cm Text Entry [facility] 08-07-2022 13:57-0400 Body temperature 98.6 [degF] Text Entry [facility] [place] 08-07-2022 13:57-0400 Body weight 64 kg Text Entry [facility] 08-07-2022 13:57-0400 Diastolic blood pressure 82 mm[Hg] Text Entry [facility] 08-07-2022 13:57-0400 Heart rate 89 /min Text Entry [facility] 08-07-2022 13:57-0400 Respiratory rate 18 /min Text Entry [facility] [place] [facility] 08-07-2022 13:57-0400 SaO2% (BldA) [Mass fraction] 99 % Text Entry [facility] [place] 08-07-2022 13:57-0400 Systolic blood pressure 133 mm[Hg] Text Entry [facility] [place] 08-04-2022 11:22-0400 Body height 170.1 cm Text Entry [facility] [place] [facility] 08-04-2022 11:22-0400 Body temperature 98.6 [degF] Text Entry Free [facility] 08-04-2022 11:22-0400 Body weight 63 kg Text Entry [facility] 08-04-2022 11:22-0400 Diastolic blood pressure 91 mm[Hg] Text Entry [facility] [place] [facility] 08-04-2022 11:22-0400 Heart rate 84 /min Text Entry [facility] [place] [facility] 08-04-2022 11:22-0400 Respiratory rate 18 /min Text Entry [facility] 08-04-2022 11:22-0400 SaO2% (BldA) [Mass fraction] 95 % [facility] 08-04-2022 11:22-0400 Systolic blood pressure 157 mm[Hg] Text Entry [facility] [place] [facility] 08-01-2022 11:24-0400 Body height 170.18 cm [facility] 08-01-2022 11:24-0400 Body mass index (BMI) [Ratio] 21.9 kg/m2 [facility] 08-01-2022 11:24-0400 Body weight 63.5 kg [facility] 07-31-2022 13:02-0400 Body mass index (BMI) [Ratio] 20.95 kg/m2 Jessenia Miller DO Work Phone: [facility] 07-31-2022 13:02-0400 Body weight 66.22 kg Jessenia Miller DO Work Phone: [facility] 07-31-2022 12:55-0400 Body temperature 98.29 [degF] Jessenia Miller DO Work Phone: [facility] 07-31-2022 12:55-0400 Diastolic blood pressure 87 mm[Hg] Jessenia Miller DO Work Phone: [facility] 07-31-2022 12:55-0400 Heart rate 106 /min Jessenia Miller DO Work Phone: [facility] 07-31-2022 12:55-0400 Respiratory rate 20 /min Jessenia Miller DO Work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 department patient visit [facility] Start: 09-30-2023 End: 09-30-2023 Emergency department patient [facility] Start: 09-29-2023 Emergency department patient visit RON NUÑEZ [facility] Start: 09-29-2023 End: 09-29-2023 Emergency department patient visit Mariely Viera DO Work Phone: [facility] Emergency Department Comment on above: Acute exacerbation o f chronic low back pain (Primary Dx); Closed fracture of base of fifth metatarsal bone of left foot; Left against medical advice Start: 09-23-2023 End: 09-23-2023 Emergency department patient visit [facility] Start: 09-19-2023 End: 09-19-2023 Patient encounter procedure Bello Lmi DC Work Phone: [facility] Comment on above: Chronic bilateral lo w back pain without sciatica (Primary Dx); Segmental and somatic dysfunction of cervical region; Segmental and somatic dysfunction of pelvic region; Segmental and somatic dysfunction of sacral region Start: 09-19-2023 End: 09-19-2023 ambulatory BELLO LIM Facility:[facility] Start: 09-19-2023 End: 09-19-2023 [facility] Start: 09-19-2023 End: 09-19-2023 Office outpatient new 45 minutes Nathan Prince MD Work Phone: [facility] Comment on above: Ankylosing spondylit is, unspecified site of spine (Multi); Chronic midline back pain, unspecified back location Start: 09-15-2023 End: 09-15-2023 Emergency department patient visit JAIME DAVIS [facility] Emergency Medicine Comment on above: Sacral pain (Primary Dx); Left ear pain Start: 09-13-2023 End: 09-13-2023 Emergency department patient visit MARIA ELENA MONTALVO Facility:[facility] Start: 09-10-2023 Telephone encounter Bello Ortega DC Work Phone: [facility] Comment on above: Returning Patient's Call Start: 09-06-2023 End: 09-06-2023 Emergency department patient visit JAIME DAVIS [facility] Work Phone: Comment on above: Ankylosing spondylit is, unspecified site of spine (Multi) (Primary Dx); Chronic midline back pain, unspecified back location Start: 09-06-2023 End: 09-06-2023 Emergency department patient visit Jonny Xiao MD Work Phone: [facility] Emergency Dept Comment on above: Fall (Pt states fell tonight, c/o pain in tailbone) Start: 09-05-2023 End: 09-05-2023 Emergency department patient visit [facility] Work Phone (unformatted): [phone] Start: 09-02-2023 End: 09-02-2023 Emergency department patient visit Jae Sommer MD Work Phone: [facility] Emergency Department Comment on above: Chronic left-sided l ow back pain with left-sided sciatica (Primary Dx) Start: 08-31-2023 End: 08-31-2023 Emergency department patient visit MARIA ELENA MONTALVO Facility:[facility] Start: 08-27-2023 Telephone encounter Bridgette Fraser T [facility] Comment on above: Insurance Authorizat ion (CHIRO 2023) Injections (Question s ) Start: 08-27-2023 End: 08-27-2023 Patient encounter procedure Bello Lim DC Work Phone: [facility] [place] Comment on above: Chronic bilateral lo w back pain without sciatica (Primary Dx); Segmental and somatic dysfunction of cervical region; Segmental and somatic dysfunction of pelvic region; Segmental and somatic dysfunction of sacral region Start: 08-27-2023 End: 08-27-2023 ambulatory BELLO LIM Facility:[facility] Start: 08-20-2023 Telephone encounter Bridgette Fraser T [facility] [place] Comment on above: Appointment Start: 08-20-2023 End: 08-20-2023 Telemedicine consultation with patient Trisha Tenorio APRN.CNP Work Phone: [facility] Start: 08-20-2023 End: 08-20-2023 ambulatory Trisha Tenorio APRN.CNP Work Phone: [facility] [place] Comment on above: Chronic bilateral lo w back pain without sciatica (Primary Dx); Degeneration of lumbar intervertebral disc; Displacement of lumbar intervertebral disc without myelopathy; Pain in soft tissues of limb; DDD (degenerative disc disease), cervical Start: 08-19-2023 End: 08-19-2023 Patient encounter procedure Trisha Tenorio APRN.CNP Work Phone: [facility] [place] Comment on above: APPOINTMENT CANCELLE D (Primary Dx) Start: 08-15-2023 End: 08-15-2023 Emergency department patient visit BRO CHAVEZ DO [facility] Start: 08-13-2023 End: 08-13-2023 Emergency department patient visit JAIME DAVIS [facility] Emergency Medicine Comment on above: Chronic pain of left ankle (Primary Dx) Start: 08-13-2023 End: 08-13-2023 Emergency department patient visit PHYSICIAN [facility] Start: 08-13-2023 End: 08-13-2023 Emergency department patient visit [facility] Emergency Department Start: 08-12-2023 End: 08-12-2023 Emergency department patient visit Gillian Edouard Sosa DO Work Phone: [facility] Emergency Medicine Comment on above: Other chronic pain ( Primary Dx) Start: 08-10-2023 End: 08-10-2023 Emergency department patient visit [facility]abs Carmine [facility] Start: 08-06-2023 End: 08-06-2023 Emergency department patient visit Rosalie Wernerchie DO Work Phone: [facility] Emergency Department Comment on above: Back symptoms/compla ints (Chronic back and tailbone complaints; ); Ankle symptoms/complaints (Left ankle injury after fall;/) Start: 08-06-2023 Emergency department patient visit UNKNOWN PROVIDER Facility:[facility] Start: 08-03-2023 End: 08-03-2023 Emergency department patient visit JESSENIA MILLER Facility:[phone] Start: 08-01-2023 End: 08-01-2023 Emergency department patient visit Siddhartha Coila Facility:[facility] Start: 08-01-2023 End: 08-01-2023 Emergency department patient visit [facility] Work Phone (unformatted): [phone] Start: 07-25-2023 End: 07-25-2023 Patient encounter procedure Trisha Tenorio APRN.TECHNICAL APPLICATIONS SPECIALIST Work Phone: [facility] Comment on above: APPOINTMENT CANCELLE D (Primary Dx) Start: 07-18-2023 End: 07-18-2023 Emergency department patient visit ALGONQUIN Goldie [facility] Start: 07-12-2023 End: 07-12-2023 Emergency department patient visit [facility] Work Phone: Start: 07-09-2023 End: 07-09-2023 Emergency department patient visit Shady Suarez DO Work Phone: [facility] Emergency Department Comment on above: Neck pain (Primary D x) Start: 06-15-2023 End: 06-15-2023 Emergency department patient visit Babs Carmine [facility] Start: 06-15-2023 End: 06-15-2023 Emergency department patient visit Babs Carmine Work Phone: [facility] Work Phone: Start: 06-12-2023 End: 06-12-2023 Emergency department patient visit CULLEN LESTER MD [facility] Start: 06-02-2023 End: 06-02-2023 Emergency department patient visit numberFire Work Phone (unformatted): [phone] Start: 06-02-2023 End: 06-02-2023 Emergency department patient visit Jaime Davis Work Phone: [facility]Emergency Department Start: 05-31-2023 End: 05-31-2023 Emergency department patient visit Maria Elena Montalvo MD Work Phone: [facility] Emergency Department Comment on above: Chronic low back casandra n with sciatica, sciatica laterality unspecified, unspecified back pain laterality (Primary Dx); Drug-seeking behavior Start: 05-30-2023 End: 05-30-2023 Emergency department patient visit [facility] Work Phone: Start: 05-17-2023 End: 05-17-2023 Emergency department patient visit numberFire Work Phone (unformatted): [phone] Start: 05-16-2023 End: 05-16-2023 Emergency department patient visit RYANNE HENLEY MD [facility] Start: 05-06-2023 End: 05-06-2023 Emergency department patient visit BRO MCKINLEY [facility] Start: 05-06-2023 End: 05-06-2023 Emergency department patient visit Bro Mckinley Work Phone: [facility] Emergency Department Comment on above: Chronic bilateral lo w back pain without sciatica (Primary Dx); Contusion of back, unspecified laterality, initial encounter Start: 05-02-2023 End: 05-02-2023 Emergency department patient visit YIMI GELLER DO~[id number] [facility] Start: 04-26-2023 End: 04-26-2023 Emergency department patient visit [facility] Start: 04-25-2023 End: 04-25-2023 Emergency department patient visit JESSENIA TYLER [facility] Start: 04-25-2023 End: 04-25-2023 Emergency department patient visit Jae Sommer MD Work Phone: [facility] Emergency Department Comment on above: Anxiety (Primary Dx) ; Chest pain, unspecified type Start: 04-08-2023 End: 04-08-2023 Emergency department patient visit SANTA PELAYO Facility:[facility] Start: 04-08-2023 Emergency department patient visit UNKNOWN PROVIDER Facility:[facility] Start: 04-04-2023 End: 04-04-2023 Emergency department patient visit [facility] Work Phone (unformatted): [phone] Start: 03-28-2023 End: 03-28-2023 Emergency department patient visit JESSENIA TYLER [facility] Start: 03-10-2023 End: 03-10-2023 Emergency department patient visit Saul Kuhn MD Work Phone: [facility] Emergency Medicine Comment on above: Chronic left shoulde r pain (Primary Dx) Start: 03-09-2023 End: 03-09-2023 Emergency department patient visit JESSENIA MILLER Facility:[phone] Start: 03-06-2023 End: 03-07-2023 Emergency department patient visit Jaime Davis Work Phone: [facility]Emer[facility] Department Start: 03-04-2023 End: 03-04-2023 Emergency department patient visit JESSENIA TYLER [facility] Emergency Department Comment on above: Fall, initial encoun ter (Primary Dx); Strain of left shoulder, initial encounter; Sacrum sprain, initial encounter Start: 02-15-2023 Emergency department patient visit MARIELY VIERA [facility] Start: 02-15-2023 Emergency department patient visit JESSENIA TYLER [facility] Start: 02-07-2023 End: 02-07-2023 Emergency department patient visit Jaime Davis [facility] Start: 02-07-2023 End: 02-07-2023 Emergency department patient visit Babs Lou Work Phone: [facility] Work Phone: Start: 02-06-2023 Emergency department patient visit JESSENIA TYLER [facility] Start: 02-05-2023 End: 02-05-2023 Emergency department patient visit Jaime Davis MD Work Phone: [facility] Medicine Start: 12-23-2022 End: 12-23-2022 Emergency department patient visit Jaiem Davis [facility] Start: 12-23-2022 End: 12-23-2022 Emergency department patient visit Babs Lou Work Phone: [facility] Work Phone: Start: 12-21-2022 End: 12-21-2022 Emergency department patient visit Jaime Davis Work Phone: [facility] Department Start: 12-04-2022 End: 12-04-2022 Emergency department patient visit Saul Kuhn MD Work Phone: [facility] Emergency Medicine Comment on above: Acute exacerbation o f chronic low back pain (Primary Dx); Medication refill Start: 11-25-2022 End: 11-25-2022 Emergency department patient visit Jaime Davis Work Phone: [facility] Department Start: 11-22-2022 End: 11-22-2022 Patient encounter procedure Lesley Weiss PSYD Work Phone: [facility] Comment on above: Severe episode of re current major depressive disorder, without psychotic features (HCC) (Primary Dx); ZHANE (generalized anxiety disorder); PTSD (post-traumatic stress disorder); Chronic pain syndrome; Fibromyalgia Start: 11-19-2022 End: 11-19-2022 Emergency department patient visit Jaime Davis [facility] Start: 11-19-2022 End: 11-19-2022 Emergency department patient visit Babs Carmine Work Phone: [facility] Work Phone: Start: 11-14-2022 End: 11-14-2022 Subsequent hospital visit by physician Zeeshan Sanderson (Lg Bore/1.5t) Work Phone: Radiology Comment on above: Chronic low back casandra n with sciatica, sciatica laterality unspecified, unspecified back pain laterality [M54.40, G89.29] Start: 10-31-2022 End: 10-31-2022 Emergency department patient visit Venecia Corey MD Work Phone: [facility] Emergency Dept Comment on above: Pain In multiple sit es Start: 10-29-2022 Emergency department patient visit [facility] Start: 10-29-2022 End: 10-29-2022 Emergency department patient visit [facility] Start: 10-24-2022 End: 10-24-2022 Patient encounter procedure Mariam Stoll RATE INSERTER.TECHNICAL APPLICATIONS SPECIALIST, DNP Work Phone: [facility] Comment on above: Chronic pain syndrom e (Primary Dx); Fibromyalgia Start: 10-22-2022 End: 10-22-2022 Patient encounter procedure Jeri Mendes Work Phone: [facility] Comment on above: DDD (degenerative di sc disease), lumbar (Primary Dx); Chronic low back pain with sciatica, sciatica laterality unspecified, unspecified back pain laterality; Sacroiliac pain; Fibromyalgia; Disorder of bone; History of migraine; Tendinopathy of gluteus medius; Physical deconditioning Start: 10-06-2022 End: 10-06-2022 Emergency department patient visit Ary Main [facility] 08 Start: 09-25-2022 End: 09-25-2022 Emergency department patient visit Jaime Davis [facility] Start: 09-25-2022 End: 09-25-2022 Emergency department patient visit Babs Lou Work Phone: [facility]EMERGENCY Work Phone: Start: 09-20-2022 End: 09-20-[address] [facility] Work Phone: Start: 09-20-2022 End: 09-20-[address] [facility] [address]WL[id number] [place] [address] Start: 09-03-2022 End: 09-03-2022 [facility] Start: 08-28-2022 End: 08-28-2022 Emergency department patient visit Jaime Davis [facility] Start: 08-28-2022 End: 08-28-2022 Emergency department patient visit Babs Lou Work Phone: [facility] Work Phone: Start: 08-20-2022 End: 08-20-2022 Emergency department patient visit Jaime Davis [facility] Start: 08-20-2022 End: 08-20-2022 Emergency department patient visit Babs Carmine Work Phone: [facility]EM[facility] Work Phone: Start: 08-18-2022 End: 08-18-2022 Emergency department patient visit Jaime Davis [facility] Start: 08-18-2022 End: 08-18-2022 Emergency department patient visit Babs Carmine Work Phone: [facility] Work Phone: Start: 08-17-2022 End: 08-17-2022 Emergency department patient visit Jaime Davis [facility] Start: 08-17-2022 End: 08-17-2022 Emergency department patient visit Babs Carmine Work Phone: [facility] Work Phone: Start: 08-17-2022 End: 08-17-2022 Emergency department patient visit Babs Thomas DO Work Phone: [facility] Comment on above: Acute exacerbation o f chronic low back pain (Primary Dx) Start: 08-12-2022 End: 08-12-2022 Emergency department patient visit Jaime Davis [facility] Start: 08-12-2022 End: 08-12-2022 Emergency department patient visit Babs Carmine Work Phone: [facility]EM[facility] Work Phone: Start: 08-09-2022 End: 08-09-2022 Emergency department patient visit Donald Lainez [facility] Start: 08-07-2022 End: 08-07-2022 Emergency department patient visit Saul [facility] Start: 08-04-2022 End: 08-04-2022 Emergency department patient visit Eugene Thomas [facility] 10 Start: 08-01-2022 End: 08-01-[address] [facility] Work Phone: Start: 08-01-2022 End: 08-01-[address] [facility] [address] Start: 07-31-2022 End: 07-31-2022 Emergency department patient visit Jessenia Miller DO Work Phone: [facility] Emergency Department Comment on above: Acute exacerbation o f chronic low back pain (Primary Dx) Start: 07-02-2022 End: 07-02-2022 Emergency department patient visit Saul Kuhn [facility] Start: 06-30-2022 End: 06-30-2022 Emergency department patient visit Bridgette Melendez Other Phone (unformatted): [phone] [facility] Wait Start: 06-25-2022 End: 06-25-2022 Emergency department patient visit Mr. Amandeep Perez Hil[facility] Facility:[id number] Start: 06-23-2022 End: 06-23-2022 Emergency department patient visit Jessenia Miller DO Work Phone: [facility] Emergency Department Comment on above: Pain of left hip (Pr imary Dx); Acute strain of neck muscle, initial encounter; Trapezius muscle spasm Start: 06-02-2022 End: 06-02-2022 Emergency department patient visit Dr. Asael Nava Facility:[id number] Start: 05-02-2022 End: 05-02-2022 Patient encounter procedure Kraig Gómez DO Work Phone: Spine Medicine Comment on above: Chronic left-sided l ow back pain with left-sided sciatica (Primary Dx); Chronic pain syndrome; Lumbar spondylosis; Degeneration of lumbar intervertebral disc Start: 04-20-2022 Chart abstracting Unk (Historical) N eurology Start: 03-22-2022 End: 03-24-2022 Subsequent hospital visit by physician Vero Hurtado Mri [facility] Comment on above: Sacroiliitis (HCC) Chronic bronchitis, unspecified chronic bronchitis type (HCC) Generalized abdomina l pain; Lung mass Start: 09-28-2021 End: 09-30-2021 Subsequent hospital visit by physician Jf Torres Xr Rm 1 [facility] Radiology Comment on above: Other osteoarthritis involving multiple joints Start: 07-26-2020 End: 07-28-2020 Subsequent hospital visit by physician Vero Us Rm 2 [facility] Ultrasound Comment on above: Supraclavicular radha opathy Start: 06-30-2020 End: 07-01-2020 Subsequent hospital visit by physician [facility]ia Ellis [facility] Comment on above: Lymphadenopathy (Sophia papa Dx) Start: 06-30-2020 End: 06-30-2020 Emergency department patient visit Jessenia Miller DO Work Phone: [facility] Emergency Department Start: 11-30-2019 End: 12-02-2019 Subsequent hospital visit by physician Jessenia [facility] Comment on above: Joint swelling; Fatigue, unspecified type; Elevated erythrocyte sedimentation rate; RED positive; Dyslipidemia Start: 07-30-2019 End: 08-01-2019 Subsequent hospital visit by physician Jessenia [facility] Comment on above: Fatigue, unspecified type; Generalized seizure disorder (HCC); Cough; Bronchitis; Acute sinusitis, recurrence not specified, unspecified location; IFG (impaired fasting glucose); Dyslipidemia Start: 03-17-2019 End: 03-17-2019 Subsequent hospital visit by physician Khoa Gallagher MD Work Phone: [facility] Start: 03-17-2019 End: 03-17-2019 Subsequent hospital visit by physician Khoa Gallagher MD Work Phone: [facility] Comment on above: Pain of left hip [place] Start: 02-02-2019 End: 02-02-2019 Subsequent hospital visit by physician Khoa Gallagher Work Phone: [facility] Comment on above: Sacroiliitis (HCC) Start: 01-07-2019 End: 01-07-2019 Subsequent hospital visit by physician Jessenia Miller [facility] Comment on above: IFG (impaired fastin g glucose); Syncope and collapse; Nonintractable headache, unspecified chronicity pattern, unspecified headache type; Annular tear of lumbar disc; DDD (degenerative disc disease), lumbar; PTSD (post-traumatic stress disorder); Generalized seizure disorder (HCC); Dyslipidemia; Fatigue, unspecified type Start: 01-07-2019 End: 01-09-2019 Subsequent hospital visit by physician Jf Ct Scan [facility] CT Scan Comment on above: Chest pain, unspecif ied type Arrived Start: 12-11-2018 End: 12-13-2018 Subsequent hospital visit by physician Jf Torres Xr Rm 1 [facility] Comment on above: Annular tear of lumb ar disc; DDD (degenerative disc disease), lumbar Cough Procedures Date Procedure Procedure Detail Performing Clinician Start: 08-20-2024 Radex spine thoracic 2 views Amandeep Marcial RATE INSERTER-TECHNICAL APPLICATIONS SPECIALIST Work Phone: Start: 08-08-2024 End: 08-08-2024 Radiologic examination knee 3 views Lourdes Cardoza MD Work Phone: Start: 08-08-2024 Ct cervical spine w/ o contrast material Lourdes Cardoza MD Work Phone: Start: 08-08-2024 Ct head/brain w/o co ntrast material Lourdes Cardoza MD Work Phone: Start: 07-01-2024 Radiologic exam ches t single view Cara Ojeda DO Work Phone: Start: 07-01-2024 Radex shoulder compl ete minimum 2 views Cara Ojeda DO Work Phone: Start: 06-17-2024 Radex hips bilateral with pelvis 2 views Kev Hsu DO Work Phone: Start: 06-10-2024 Ct lumbar spine w/o contrast material Cara Ojeda DO Work Phone: Start: 06-10-2024 Radex hip unilateral with pelvis 2-3 views Cara Ojeda DO Work Phone: Start: 06-10-2024 Radiologic exam ches t single view Cara Ojeda DO Work Phone: Start: 06-10-2024 Comprehensive metabo lic panel Cara Ojeda DO Work Phone: Start: 06-10-2024 Urine test visual color cmprsn meths Cara Ojeda DO Work Phone: Start: 06-10-2024 Ecg routine ecg w/le ast 12 lds w/i&r Cara Ojeda DO Work Phone: Start: 06-05-2024 Comprehensive metabo lic panel Cara Ojeda DO Work Phone: Start: 06-05-2024 COVID-19 & INFLUENZA COMBO Cara Ojeda DO Work Phone: Start: 06-03-2024 Ct angiography chest w/contrast/noncontrast Kev Shadi DO Work Phone: Start: 06-03-2024 Urine test visual color cmprsn meths Sophia Mancilla DO Work Phone: Start: 06-03-2024 Radiologic exam ches t 2 views Kev Hsu DO Work Phone: Start: 06-03-2024 End: 06-03-2024 Comprehensive metabolic panel Kev Shadi DO Work Phone: Start: 06-03-2024 COVID-19 & INFLUENZA COMBO Kev Shadi DO Work Phone: Start: 06-03-2024 Ecg routine ecg w/le ast 12 lds w/i&r Kev Shadi DO Work Phone: Start: 05-25-2024 Comprehensive metabo lic panel Ariel Sanders PA-C Work Phone: Start: 05-25-2024 Ecg routine ecg w/le ast 12 lds w/i&r Ariel Sanders PA-C Work Phone: Start: 05-22-2024 Ct head/brain w/o co ntrast material Jae Sommer MD Work Phone: Start: 05-22-2024 Radiologic exam ches t 2 views Jae Sommer MD Work Phone: Start: 05-22-2024 Ecg routine ecg w/le ast 12 lds w/i&r Jae Sommer MD Work Phone: Start: 05-20-2024 Radiologic exam ches t 2 views Don Queen MD Work Phone: Start: 05-20-2024 Basic metabolic pane l calcium total Don Queen MD Work Phone: Start: 05-20-2024 Ecg routine ecg w/le ast 12 lds w/i&r Don Queen MD Work Phone: Start: 05-17-2024 Drug tst prsmv instr mnt chem analyzers pr date Lesley Taylor DO Work Phone: Start: 05-17-2024 Urine test visual color cmprsn meths Lesley Taylor DO Work Phone: Start: 05-17-2024 Ct abdomen & pelvis w/contrast material Lesley Taylor DO Work Phone: Start: 05-17-2024 CT Thoracic spine WO contrast Lesley Taylor DO Work Phone: Start: 05-17-2024 Ct cervical spine w/ o contrast material Lesley Taylor DO Work Phone: Start: 05-17-2024 Ct head/brain w/o co ntrast material Lesley Taylor DO Work Phone: Start: 05-17-2024 Blood typing serolog ic rh (d) Lesley Taylor DO Work Phone: Start: 05-17-2024 Comprehensive metabo lic panel Lesley Taylor DO Work Phone: Start: 05-17-2024 Ethanol [Mass/volume ] in Serum or Plasma Lesley Taylor DO Work Phone: Start: 05-17-2024 Radiologic exam ches t single view Lesley Taylor DO Work Phone: Start: 05-15-2024 Ct pelvis w/o contra st material Arlyn Pelayo MD Work Phone: Start: 05-02-2024 Comprehensive metabo lic panel Kev Shadi DO Work Phone: Start: 05-02-2024 Radiologic exam ches t single view Kev Shadi DO Work Phone: Start: 04-20-2024 Radiologic exam ches t single view Sigrid Manuel Forbes RATE INSERTER - TECHNICAL APPLICATIONS SPECIALIST Work Phone: Start: 04-20-2024 Radex shoulder compl ete minimum 2 views Sigrid Ogacco RATE INSERTER - TECHNICAL APPLICATIONS SPECIALIST Work Phone: Start: 03-29-2024 Comprehensive metabo lic panel Kev Shadi DO Work Phone: Start: 03-12-2024 Radiologic examinati on femur minimum 2 views Ninoska Munoz RATE INSERTER - TECHNICAL APPLICATIONS SPECIALIST Start: 03-12-2024 Ct cervical spine w/ o contrast material Samira L Geiselman RATE INSERTER - TECHNICAL APPLICATIONS SPECIALIST Work Phone: Start: 03-12-2024 Ct head/brain w/o co ntrast material Samira L Geiselman RATE INSERTER - TECHNICAL APPLICATIONS SPECIALIST Work Phone: Start: 03-12-2024 Ct pelvis w/o contra st material Samira L Geiselman RATE INSERTER - TECHNICAL APPLICATIONS SPECIALIST Work Phone: Start: 03-12-2024 Radex ribs uni w/pos teroant ch minimum 3 views Samira L Geiselman RATE INSERTER - TECHNICAL APPLICATIONS SPECIALIST Work Phone: Start: 03-08-2024 End: 03-08-2024 Mri orbit face & neck w/o & w/contrast steve Alvarez DO Work Phone: Start: 03-08-2024 Assay of troponin quantitative Emelia Melendez MD Start: 03-07-2024 Ct angiography head w/contrast/noncontrast Emelia Melendez MD Start: 03-07-2024 Ct angiography neck w/contrast/noncontrast Emelia Melendez MD Start: 03-07-2024 Radex shoulder compl ete minimum 2 views Emelia Melendez MD Start: 03-07-2024 Ecg routine ecg w/le ast 12 lds w/i&r Emelia Melendez MD Start: 03-07-2024 Comprehensive metabo lic panel Emelia Melendez MD Start: 03-07-2024 Drug tst prsmv instr mnt chem analyzers pr date Emelia Melendez MD Start: 03-07-2024 Urnls dip stick/tabl et rgnt auto w/o microscopy Emelia Melendez MD Start: 02-20-2024 Radiologic exam ches t 2 views Sonal Mclaughlin DO Work Phone: Start: 02-20-2024 Antibody influenza virus Sonal Mclaughlin DO Work Phone: Start: 02-20-2024 COVID-19, RAPID Sonal Mclaughlin DO Work Phone: Start: 02-11-2024 Ct cervical spine w/ o contrast material Kayode Jansen DO Work Phone: Start: 01-21-2024 COVID-19 & INFLUENZA COMBO Earnest Shearer MD Work Phone: Start: 01-18-2024 COVID-19 & INFLUENZA COMBO Hu Hannah DO Work Phone: Start: 01-18-2024 Iaad ia streptococcu s group a Huestella Falconon DO Work Phone: Start: 01-18-2024 Radiologic exam ches t single view Hu Hannah DO Work Phone: Start: 01-13-2024 Radex hand minimum 3 views Babs Thomas DO Work Phone: Start: 01-04-2024 Blood count hemoglobin Edwar Raygoza Comment on above: Performed By: #### C BCAD ####[id number] [address] Start: 12-29-2023 Comprehensive metabo lic panel Hu Hannah DO Work Phone: Start: 11-23-2023 Pelvis X-ray Jaime Morillo mandy Work Phone: Start: 11-23-2023 X-ray of lumbar spin e, two or three views Jaime Davis Work Phone: Start: 10-18-2023 Urine test visual color cmprsn meths Minna FINLEY Work Phone: Start: 10-18-2023 Mri spinal canal lum bar w/o & w/contr matrl Minna FINLEY Work Phone: Start: 10-18-2023 Ecg routine ecg w/le ast 12 lds w/i&r Minna FINLEY Work Phone: Start: 10-18-2023 End: 10-18-2023 Assay of lactate Minna FINLEY Work Phone: Start: 10-18-2023 Urnls dip stick/tabl et reagent auto microscopy Minna FINLEY Work Phone: Start: 09-30-2023 CT of lumbar spine w ithout contrast Jaime Davis Work Phone: Start: 09-30-2023 X-ray of left ankle Jose Armando durhamhelena Davis Work Phone: Start: 09-30-2023 X-ray of left foot Ricco pop Davis Work Phone: Start: 09-29-2023 Assay of lactate Brandan Nuñez MD Work Phone: Start: 09-29-2023 Urnls dip stick/tabl et reagent auto microscopy Ron Nuñez MD Work Phone: Start: 09-29-2023 Radex foot complete minimum 3 views Ron Nuñez MD Work Phone: Start: 09-15-2023 Radex sacrum & coccy x minimum 2 views Jatin Davis PA-C Work Phone: Start: 09-02-2023 Radex spine lumbosac ral 2/3 views Jae Sommer MD Work Phone: Start: 08-06-2023 End: 08-06-2023 Radex ankle complete minimum 3 views Rosalie Wernerchie DO Work Phone: Start: 07-12-2023 X-ray of lumbosacral spine Start: 06-15-2023 End: 06-15-2023 Computed tomography of abdomen and pelvis with contrast Babs Lou Start: 06-15-2023 End: 06-15-2023 CT of head without contrast Babs Lou Start: 06-15-2023 End: 06-15-2023 Ultrasonography of abdomen Babs Lou Start: 05-30-2023 X-ray of lumbar spin e, two or three views Start: 05-06-2023 Ct lumbar spine w/o contrast material Angela Burkett PA-C Work Phone: Start: 04-25-2023 Radiologic exam ches t single view Jae Sommer MD Work Phone: Start: 04-25-2023 Basic metabolic pane l calcium total Jae Sommer MD Work Phone: Start: 03-04-2023 Radex spine lumbosac ral 2/3 views Lam Bray APRN - TECHNICAL APPLICATIONS SPECIALIST Work Phone: Start: 11-14-2022 Mri pelvis w/o & w/c ontrast material Jeri Mendes DO Work Phone: Start: 10-06-2022 End: 10-06-2022 EKG impression Ary Main Start: 08-17-2022 Mri spinal canal lum bar w/o & w/contr matrl Babs Thomas DO Work Phone: Start: 08-09-2022 LUMBAR SPINE-2 OR 3 VIEW Jaime Davis Start: 08-09-2022 Pelvis X-ray Jaime Yisel galvan Start: 08-01-2022 X-ray of lumbar spin e, four views Start: 06-23-2022 Ct cervical spine w/ o contrast material Linette M Ofe RATE INSERTER - TECHNICAL APPLICATIONS SPECIALIST Work Phone: Start: 06-23-2022 Radex hip unilateral with pelvis 2-3 views Linette M Ofe RATE INSERTER - TECHNICAL APPLICATIONS SPECIALIST Work Phone: Start: 03-22-2022 Mri spinal canal lum bar w/o contrast material Jessenia Miller DO Work Phone: Start: 03-22-2022 Ct abdomen & pelvis w/o contrst 1/> body re Jessenia Miller DO Work Phone: Start: 03-22-2022 Ct thorax w/o contra st material Jessenia Miller DO Work Phone: Start: 03-22-2022 Radiologic exam ches t 2 views Jessenia Miller DO Work Phone: Start: 09-28-2021 Radiologic examinati on pelvis 1/2 views Homer Sarabia DO Work Phone: Start: 07-26-2020 Us soft tissue head & neck real time imge alanna Adams MD Work Phone: Start: 07-01-2020 BASIC METABOLIC PANE L W/ REFLEX TO MG FOR LOW K Jia Ellis MD Work Phone: Start: 07-01-2020 Blood count complete automated Jia Ellis MD Work Phone: Start: 06-30-2020 Ct thorax w/contrast material Sigrid Forbes RATE INSERTER - TECHNICAL APPLICATIONS SPECIALIST Work Phone: Start: 06-30-2020 Blood count complete auto&auto difrntl wbc Sigrid Forbes RATE INSERTER - TECHNICAL APPLICATIONS SPECIALIST Work Phone: Start: 06-21-2020 Microscopic observat ion [Identifier] in Cervix by Cyto stain Maria Elena Montalvo MD Work Phone: Start: 11-30-2019 Antinuclear antibodies red Jessenia [facility] Work Phone: Start: 11-30-2019 C-reactive protein Rich nandinigoldie [facility] Work Phone: Start: 11-30-2019 Lipid panel Jessenia [facility] Work Phone: Start: 11-30-2019 MISCELLANEOUS SENDOUT 1 Jessenia Miller Work Phone: Start: 11-30-2019 Rheumatoid factor quantitative [facility] Work Phone: Start: 11-30-2019 Sedimentation rate r bc automated Jessenia Miller Work Phone: Start: 11-30-2019 Lipid 1996 panel - S yeimy or Plasma Trisha Tenorio RATE INSERTER.TECHNICAL APPLICATIONS SPECIALIST Work Phone: Start: 07-30-2019 Assay of thyroid stimulating hormone tsh Jessenia Miller Work Phone: Start: 07-30-2019 Blood count complete auto&auto difrntl wbc Jessenia Miller Work Phone: Start: 07-30-2019 Comprehensive metabo lic panel Jessenia Miller Work Phone: Start: 07-30-2019 Hemoglobin glycosylated a1c Jessenia Miller Work Phone: Start: 03-17-2019 FLUORO FOR SURGICAL PROCEDURES Khoa Gallagher MD Work Phone: Start: 02-02-2019 FLUORO FOR SURGICAL PROCEDURES Khoa Gallagher Work Phone: Start: 01-07-2019 Mri spinal canal lum bar w/o contrast material Jessenia Miller Work Phone: Start: 01-07-2019 Assay of thyroid stimulating hormone tsh Jessenia Miller Work Phone: Start: 01-07-2019 Blood count complete auto&auto difrntl wbc Jessenia Ramirezjoy Work Phone: Start: 01-07-2019 Comprehensive metabo lic panel Jessenia Ramirezjoy Work Phone: Start: 01-07-2019 Hemoglobin glycosylated a1c Jessenia Ramirezjoy Work Phone: Start: 01-07-2019 Lipid panel Jessenia Vy mills Ashleyavivarobert Work Phone: Start: 01-07-2019 Ct thorax w/o & w/co ntrast material Jessenia Ramirezjoy Work Phone: Start: 12-11-2018 Radex spine lumbosac ral 2/3 views Jessenia Ramirezjoy Work Phone: Start: 12-11-2018 Radex hip unilateral with pelvis 2-3 views Jessenia Ramirezjoy Work Phone: Start: 12-11-2018 Radiologic exam ches t 2 views Jessenia Ramirezjoy Work Phone: Plan of Treatment Date Care Activity Detail Author Start: 02-27-2034 DTaP/Tdap/Td Vaccine s (3 - Td or Tdap) DTaP/Tdap/Td Vaccines (3 - Td or Tdap) [facility] Start: 09-13-2032 DTaP/Tdap/Td Vaccine s (2 - Td or Tdap) DTaP/Tdap/Td Vaccines (2 - Td or Tdap) [facility] Start: 06-11-2027 Diabetes Screening Diabetes Screenin g [facility] Start: 05-26-2027 Diabetes Screening Diabetes Screenin g [facility] Start: 03-29-2027 Diabetes Screening Diabetes Screenin g [facility] Start: 10-22-2026 Diabetes Screening Diabetes Screenin g [facility] Start: 09-28-2026 Diabetes Screening Diabetes Screenin g [facility] Start: 07-29-2026 Diabetes Screening Diabetes Screenin g [facility] Start: 03-05-2026 Diabetes Screening Diabetes Screenin g [facility] Start: 10-06-2025 DIABETES SCREEN DIABETES SCREEN [facility] Start: 10-06-2025 Diabetes Screening Diabetes Screenin g [facility] Start: 11-29-2024 Lipid panel [facility] Start: 11-02-2024 Influenza vaccination Influenz a Vaccine (Season Ended) [facility] Start: 08-14-2024 End: 08-14-2024 Patient encounter procedure 08/14/2024 3:00 PM EDT Office Visit [facility] [address] [place] [address] [id number] Jaime Davis MD [address] [place] [address], [address] [phone] right hip pain, xrays at [facility] Comment on above: right hip pain, xray s at [facility] Start: 08-11-2024 End: 08-11-2024 Patient encounter procedure 08/11/2024 1:45 PM EDT Office Visit [facility] [address] [place] [id number] Jaime Davis MD [address] [place] [address], [address] [phone] right hip pain, xrays at [facility] Comment on above: right hip pain, xray s at [facility] Start: 07-08-2024 End: 07-08-2024 ambulatory 07/08/2024 1:00 PM EDT [facility] Endocrinology [address] [place] [address] Tenisha Palacios MD [address] [place] [address] Time Frame: Next available Endocrinology Comment on above: Time Frame: Next elias ilable Start: 06-12-2024 End: 06-12-2024 ambulatory 06/12/2024 1:30 PM EDT Distance [facility] Endocrinology [address] [place] [address] Tenisha Palacios MD [address] [place] [address] Time Frame: Next available Endocrinology Comment on above: Time Frame: Next elias ilable Start: 06-03-2024 End: 06-03-2024 ambulatory 06/03/2024 9:30 AM EDT Distance [facility] [place] [address] [place] [address] Cece Stewart MD [address] [place] [address] Time Frame: Next available [facility] [place] Comment on above: Time Frame: Next elias ilable Start: 05-29-2024 End: 05-29-2024 ambulatory 05/29/2024 8:00 AM EDT Results Only Lab [facility] [address] [place] [address] Labs Lab [facility] Comment on above: Labs Start: 05-20-2024 Patient referral [facility] Work Phone: Start: 05-06-2024 End: 05-06-2024 ambulatory 05/06/2024 2:30 PM EST [facility] Endocrinology [address] [place] [address] Tenisha Palacios MD [address] [place] [address] Time Frame: Next available Endocrinology Comment on above: Time Frame: Next elias ilable Start: 05-04-2024 End: 05-04-2024 ambulatory 05/04/2024 8:30 AM EST Results Only Lab [facility] [address] [place] [address] Labs Lab [facility] Comment on above: Labs Start: 04-06-2024 End: 03-30-2025 Corticotropin [Mass/volume] in Plasma ACTH BLD Lab Routine Pituitary lesion ([facility]) Expected: 04/06/2024 (Approximate), Expires: 03/30/2025 [facility] Comment on above: Expected: 04/06/2024 (Approximate), Expires: 03/30/2025 Start: 04-06-2024 End: 03-30-2025 Cortisol [Mass/volume] in Serum or Plasma CORTISOL, SERUM Lab Routine Pituitary lesion ([facility]) Expected: 04/06/2024 (Approximate), Expires: 03/30/2025 [facility] Comment on above: Expected: 04/06/2024 (Approximate), Expires: 03/30/2025 Start: 04-06-2024 End: 03-30-2025 Estradiol (E2) [Mass/volume] in Serum or Plasma ESTRADIOL-17B BLD Lab Routine Pituitary lesion ([facility]) Expected: 04/06/2024 (Approximate), Expires: 03/30/2025 [facility] Work Phone: Comment on above: Expected: 04/06/2024 (Approximate), Expires: 03/30/2025 Start: 04-06-2024 End: 03-30-2025 Follitropin [Units/volume] in Serum or Plasma FOLLICLE STIMULATING HORMONE Lab Routine Pituitary lesion ([facility]) Expected: 04/06/2024 (Approximate), Expires: 03/30/2025 [facility] Comment on above: Expected: 04/06/2024 (Approximate), Expires: 03/30/2025 Start: 04-06-2024 End: 03-30-2025 INSULIN LIK GR FAC I INSULIN LIK GR FAC I Lab Routine Pituitary lesion ([facility]) Expected: 04/06/2024 (Approximate), Expires: 03/30/2025 [facility] Comment on above: Expected: 04/06/2024 (Approximate), Expires: 03/30/2025 Start: 04-06-2024 End: 03-30-2025 Lutropin [Units/volume] in Serum or Plasma LUTEINIZING HORMONE Lab Routine Pituitary lesion ([facility]) Expected: 04/06/2024 (Approximate), Expires: 03/30/2025 [facility] Comment on above: Expected: 04/06/2024 (Approximate), Expires: 03/30/2025 Start: 04-06-2024 End: 03-30-2025 Prolactin [Mass/volume] in Serum or Plasma PROLACTIN Lab Routine Pituitary lesion (HCC) Expected: 04/06/2024 (Approximate), Expires: 03/30/2025 [facility] Comment on above: Expected: 04/06/2024 (Approximate), Expires: 03/30/2025 Start: 04-06-2024 End: 03-30-2025 Somatostatin [Mass/volume] in Plasma GROWTH HORMONE Lab Routine Pituitary lesion (HCC) Expected: 04/06/2024 (Approximate), Expires: 03/30/2025 [facility] Comment on above: Expected: 04/06/2024 (Approximate), Expires: 03/30/2025 Start: 04-06-2024 End: 03-30-2025 Thyrotropin [Units/volume] in Serum or Plasma THYROID STIMULATING HORMONE Lab Routine Pituitary lesion (HCC) Expected: 04/06/2024 (Approximate), Expires: 03/30/2025 [facility] Comment on above: Expected: 04/06/2024 (Approximate), Expires: 03/30/2025 Start: 04-06-2024 End: 03-30-2025 Thyroxine (T4) free [Mass/volume] in Serum or Plasma T4 FREE/FREE THYROXINE Lab Routine Pituitary lesion (HCC) Expected: 04/06/2024 (Approximate), Expires: 03/30/2025 [facility] Comment on above: Expected: 04/06/2024 (Approximate), Expires: 03/30/2025 Start: 03-25-2024 Patient referral [facility] Work Phone: Start: 02-29-2024 DTaP/Tdap/Td vaccine (1 - Tdap) DTaP/Tdap/Td vaccine (1 - Tdap) [facility] Start: 02-29-2024 Urine microalbumin profile DTaP,Tdap,Td Vaccine (1 - Tdap) [facility] Start: 02-12-2024 End: 02-12-2024 Patient encounter procedure 02/12/2024 9:00 AM EST Office Visit [facility] [address] [place] [address] [address] [place] [phone] [place] [address] [place] [address] [facility] Start: 01-23-2024 End: 01-23-2024 Patient encounter procedure 01/23/2024 10:45 AM EST Office Visit [facility] [address] [place], [place] [address] Jocelyne Albert MD [address] [place] [address] 2nd MBB follow up [facility] Comment on above: 2nd MBB follow up Start: 01-17-2024 End: 01-17-2024 ambulatory [facility] Comment on above: Bilateral MBBs at L4 -5 and L5-S1 (2 of 2) AUTH GOOD SR (NPCR) Bilateral MBBs at L4-5 and L5-S1 (2 of 2) Start: 01-11-2024 Depression Monitoring Depression Mon [facility] Start: 01-10-2024 End: 01-10-2024 Follow-up encounter 01/10/2024 4:00 PM EST [facility] [place] [address] [place] [address] Bayron Fields APRN.TECHNICAL APPLICATIONS SPECIALIST [address] [place] [address] 1st MBB follow up [facility] Comment on above: 1st MBB follow up Start: 01-08-2024 Lipid panel Lipid screen [employer] - [place], [place] Start: 01-08-2024 [facility] screen [facility] [place] [place] Start: 01-03-2024 End: 01-03-2024 ambulatory [facility] Comment on above: Bilateral MBBs at L4 -5 and L5-S1 (1 of 2) AUTH GOOD SR (NPCR) Bilateral MBBs at L4-5 and L5-S1 (1 of 2) Start: 12-19-2023 End: 12-19-2023 ambulatory 12/19/2023 4:15 PM EDT [facility] [place] [address] [place] [address] Bayron Fields APRN.TECHNICAL APPLICATIONS SPECIALIST [address] [place] [address] [phone] est pt pain managment [facility] Comment on above: est pt pain managmen t Start: 12-03-2023 Influenza vaccination Influenza Vacc ine (#1) [facility] Start: 11-03-2023 COVID-19 Vaccine ( season) COVID-19 Vaccine () [facility] Start: 11-03-2023 COVID-19 Vaccine ( season) COVID-19 Vaccine ( season) [facility] Start: 11-03-2023 Covid-19 Vaccine ( season) Covid-19 Vaccine ( season) [facility] Start: 11-03-2023 Covid-19 Vaccine ( season) Covid-19 Vaccine ( season) [facility] Start: 11-03-2023 Influenza vaccination C [facility] Start: 10-26-2023 Plain X-ray of right hip XR HIP/PELVIS, RIGHT AP/LAT [facility] Work Phone: Start: 10-24-2023 End: 10-24-2023 Patient encounter procedure 10/24/2023 9:45 AM EDT Office Visit [facility] [address] [place], [place] [phone] Trisha Tenorio APRN.TECHNICAL APPLICATIONS SPECIALIST [address] [place] [phone] follow up from [facility] and bilateral leg emg [facility] Comment on above: follow up from Caud[facility] l EDNA and bilateral leg emg Start: 10-22-2023 End: 10-22-2023 Follow-up encounter 10/22/2023 1:30 PM EDT [facility] [place] [address] [place] [address] Trisha Tenorio APRN.TECHNICAL APPLICATIONS SPECIALIST [address] [place] [phone] follow up from [facility] EDNA and bilateral leg emg [facility] Comment on above: follow up from Caud[facility] EDNA and bilateral leg emg Start: 10-17-2023 End: 10-17-2023 ambulatory [facility] Comment on above: Bilateral Leg EMG PENDING LMS - Bilate ral Leg EMG AUTH GOOD LMS - Bila teral Leg EMG Start: 10-08-2023 End: 10-08-2023 ambulatory 10/08/2023 1:00 PM EDT Procedure [facility] [address] [place], [place] [phone] Jocelyne Albert MD [address] [phone] [facility] Comment on above: [facility] Start: 10-03-2023 Influenza vaccination [facility] Start: 09-27-2023 End: 09-27-2023 Patient encounter procedure 09/27/2023 12:00 PM EDT Office Visit [facility] [place] [address] [place] [address] Bello Lim, ISSAC [address] [place] [phone] acu manip [facility] Comment on above: acu manip Start: 09-24-2023 End: 09-24-2023 Patient encounter procedure 09/24/2023 9:30 AM EDT Office Visit [facility] [address] [place], [place] [phone] Bello Lim DC [address] [place] [phone] acu manip [facility] Comment on above: acu manip Start: 09-19-2023 End: 09-19-2023 Patient encounter procedure 09/19/2023 12:30 PM EDT Office Visit [facility] [place] [address] [place] [address] Bello Lim, ISSAC [address] [place] [phone] acu manip [facility] Comment on above: acu manip Start: 09-18-2023 End: 09-18-2023 Patient encounter procedure 09/18/2023 10:30 AM EDT Office Visit [address] [phone] Yovanny Feliciano MD [address] [address] [facility] Start: 09-17-2023 End: 09-17-2023 Patient encounter procedure 09/17/2023 2:30 PM EDT Office Visit [facility] [address] [place] [address] Bello Lim, ISSAC [address] [place] [phone] acu manip [facility] [place] [facility] Comment on above: acu manip Start: 09-12-2023 End: 09-12-2023 Patient encounter procedure 09/12/2023 1:30 PM EDT Office Visit [facility] [place] [address] [place] [address] Bello Lim, ISSAC [address] [place] [phone] acu manip [facility] Comment on above: acu manip Start: 09-10-2023 End: 09-10-2023 Patient encounter procedure 09/10/2023 1:30 PM EDT Office Visit [facility] [place] [address] [place] [address] Bello Lim, ISSAC [address] [place] [phone] acu manip [facility] Comment on above: acu manip Start: 09-04-2023 End: 09-04-2023 Patient encounter procedure 09/04/2023 8:30 AM EDT Office Visit [facility] [place] [address] [place] [address] Bello Lim, ISSAC [address] [place] [phone] acu manip [facility] Comment on above: acu manip Start: 08-29-2023 End: 08-29-2023 Patient encounter procedure 08/29/2023 8:30 AM EDT Office Visit [facility] [place] [address] [place] [address] Bello Lim, ISSAC [address] [place] [phone] acu & manip [facility] Comment on above: acu & manip Start: 08-19-2023 End: 08-19-2023 Patient encounter procedure 08/19/2023 1:00 PM EDT Office Visit [facility] [place] [address] [place] [address] Trisha Tenorio, RATE INSERTER.TECHNICAL APPLICATIONS SPECIALIST [address] [place] [phone] New wmhuxxp-Aqwc-izktrh disease, 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 [facility] Comment on above: New mjvujsd-Wkpd-gey une disease, 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 Start: 07-12-2023 [facility] Start: 06-22-2023 Screening for malign ant neoplasm of [facility] Start: 05-30-2023 [facility] Start: 03-07-2023 Depression Monitoring Depression [facility] Start: 03-04-2023 Behavioral Health Screening Behavioral Health Screening [facility] Start: 12-02-2022 Influenza vaccination Influenza Vacc ine (#1) [facility] Start: 11-02-2022 COVID-19 VACCINE ( season) COVID-19 VACCINE ( season) [facility] Start: 11-02-2022 COVID-19 Vaccine ( season) COVID-19 Vaccine ( season) [facility] Start: 11-02-2022 Covid-19 Vaccine ( season) Covid-19 Vaccine ( season) [facility] Start: 11-02-2022 Influenza vaccination [facility] Start: 10-02-2022 Influenza vaccination Flu vaccine (# 1) [facility] Start: 08-22-2022 End: 08-22-2022 Patient encounter procedure 08/22/2022 Office Visit Family Medicine Jessenia Miller, [address] [place] [address] [facility] Start: 08-09-2022 LUMBAR SPINE-2 OR 3 VIEW LUMBAR SPINE-2 OR 3 VIEW [facility] Start: 08-09-2022 Pelvis X-ray PELVIS-1 OR 2 VIEWS [facility] Start: 07-29-2022 Diabetes mellitus screening Diabetes Screening [facility] Start: 06-21-2022 Screening for malign ant neoplasm of breast Breast cancer screen [facility] Start: 2022 Shingles (RZV) Vacci ne (1 of 2) Shingles (RZV) Vaccine (1 of 2) [facility] Start: 2022 Shingles vaccine (1 of 2) Shingles vaccine (1 of 2) [facility] Start: 2022 SHINGRIX VACCINE (1 of 2) SHINGRIX VACCINE (1 of 2) [facility] Start: 2022 Zoster vaccine hzv l chaya for subcutaneous use ZOSTER (SHINGLES) VACCINE (1 of 2) [facility] Start: 2022 Zoster Vaccines (1 o f 2) Zoster Vaccines (1 of 2) [facility] Start: 03-04-2022 DEPRESSION ASSESSMENT DEPRESSION ASS ESSMENT [facility] Start: 02-24-2022 COVID-19 Vaccine (5 - Moderna series) COVID-19 Vaccine (5 - Moderna series) [facility] Start: 12-30-2021 COVID-19 Vaccine (#1) COVID-19 Vacci ne (#1) [facility] Start: 11-02-2021 Influenza vaccination [facility] Start: 07-19-2021 Pneumococcal 0-64 ye ars Vaccine (2 - PCV) Pneumococcal 0-64 years Vaccine (2 - PCV) [facility] Start: 07-19-2021 Pneumococcal 0-64 ye ars Vaccine (2 of 2 - PCV) Pneumococcal 0-64 years Vaccine (2 of 2 - PCV) [facility] Start: 07-19-2021 Pneumococcal 50+ yea rs Vaccine (2 of 2 - PCV) Pneumococcal 50+ years Vaccine (2 of 2 - PCV) [facility] Start: 07-19-2021 Pneumococcal vaccination Pneumococcal Vaccine (2 of 2 - PCV) [facility] Start: 07-19-2021 Pneumococcal Vaccine : 50+ (2 of 2 - PCV) Pneumococcal Vaccine: 50+ (2 of 2 - PCV) [facility] Start: 07-19-2021 Pneumococcal Vaccine : Pediatrics (0 to 5 Years) and At-Risk Patients (6 to 64 Years) (2 - PCV) Pneumococcal Vaccine: Pediatrics (0 to 5 Years) and At-Risk Patients (6 to 64 Years) (2 - PCV) [facility] Start: 07-19-2021 Pneumococcal Vaccine : Pediatrics (0 to 5 Years) and At-Risk Patients (6 to 64 Years) (2 of 2 - PCV) Pneumococcal Vaccine: Pediatrics (0 to 5 Years) and At-Risk Patients (6 to 64 Years) (2 of 2 - PCV) [facility] Start: 05-01-2021 COVID-19 Vaccine (4 - Moderna series) COVID-19 Vaccine (4 - Moderna series) [facility] Start: 11-23-2020 Pneumococcal Vaccine : Pediatrics (0 to 5 Years) and At-Risk Patients (6 to 64 Years) (2 - PCV) Pneumococcal Vaccine: Pediatrics (0 to 5 Years) and At-Risk Patients (6 to 64 Years) (2 - PCV) [facility] Start: 11-02-2020 Influenza vaccination Flu vacc ine (Season Ended) [facility] Work Phone: Start: 08-15-2020 COVID-19 Vaccine (2 - Mixed Product series) COVID-19 Vaccine (2 - Mixed Product series) [facility] Start: 11-04-2019 Lipid screen Lipid screen [facility], [place] Start: 11-03-2019 Influenza vaccination [facility], [place] Start: 04-01-2019 End: 04-01-2019 Patient encounter procedure 04/01/2019 Office Visit Pain Management Khoa Gallagher MD [address] [facility] [place] [address] [phone] [facility] Start: 03-09-2019 End: 03-09-2019 Office Visit 03/09/2019 Office Visit Pain Management Khoa Gallagher MD [address] [facility] [place] [address] [phone] [facility] Start: 01-12-2019 End: 01-12-2019 Office Visit 01/12/2019 Office Visit Physical Medicine and Rehab Bib Medrano, [address] [facility] [place] [address] [phone] [facility] PMR Start: 01-08-2019 End: 01-08-2019 Office Visit 01/08/2019 Office Visit Pain Management Khoa Gallagher MD [address] [facility] [place] [address] [phone] [facility] Start: 12-26-2018 End: 12-26-2018 Ancillary Procedure 12/26/2018 Ancillary Procedure Radiology [facility] Start: 11-02-2018 Influenza vaccination Flu vaccine (# 1) [employer] [place] Start: 2017 Cholesterol [Mass/volume] in Serum or Plasma Cholesterol [facility] Start: 2017 COLOGUARD (FIT-DNA) COLOGUARD (FIT-D NA) [facility] Start: 2017 Colonoscopy COLONOSCOPY [facility] Start: 2017 COLORECTAL CANCER SCREENING COLORECTAL CANCER SCREENING [facility] Start: [address] COLONOGRAPHY [facility] Start: 2017 DIABETES SCREEN DIABETES SCREEN [facility] Start: 2017 FECAL OCCULT BLOOD FECAL OCCULT BLOO D [facility] Start: 2017 Lipid 1996 panel - Serum or Plasma Lipid Screening [facility] Start: 2017 LIPID SCREEN LIPID SCREEN [facility] Start: 2017 Screening for malign ant neoplasm of colon [facility] Start: 2017 SIGMOIDOSCOPY SIGMOIDOSCOPY [facility] Start: 2012 Lipid panel LIPID SCREENING [employer] [facility] Start: 2012 Mammography [facility] Start: 2012 Screening for malign ant neoplasm of breast [facility] Start: 2002 HPV TESTING HPV TESTING [facility] Start: 2002 Screening for malign ant neoplasm of cervix [facility] Start: 2002 Zoledronic acid therapy ALPHA- 1 ANTITRYPSIN DEFICIENCY SCREENING [facility] Start: 1994 DTaP/Tdap/Td Vaccine s (1 - Tdap) DTaP/Tdap/Td Vaccines (1 - Tdap) [facility] Start: 1993 Cervical cancer screen Cervical canc [place] Start: 1993 PAP TESTING PAP TESTING [facility] Start: 1993 [facility]ening for malign [facility]oplasm [facility] Start: 1991 DTaP/Tdap/Td vaccine (1 - Tdap) DTaP/Tdap/Td vaccine (1 - Tdap) [facility] Start: 1991 Hepatitis A (HAV) Vaccine (optional start 19+ years) Hepatitis A (HAV) Vaccine (optional start 19+ years) [facility] Start: 1991 Hepatitis B vaccination [facility] Start: 1991 Hepatitis B Vaccine (1 of 3 - 19+ 3-dose series) Hepatitis B Vaccine (1 of 3 - 19+ 3-dose series) [facility] Start: 1991 Hepatitis B Vaccines (1 of 3 - 19+ 3-dose series) Hepatitis B Vaccines (1 of 3 - 19+ 3-dose series) [facility] Start: 1991 Third diphtheria, tetanus and acellular pertussis (DTaP) vaccination TDAP (ADULT) [facility] Start: 1991 Urine microalbumin profile [facility] Start: 1990 ANNUAL PCP TEAM STOCK ASSOCIATE MELA DISEASE VISIT ANNUAL PCP TEAM CHRONIC DISEASE VISIT [facility] Start: 1990 Depression Screening Depression Scre ening [facility] Start: 1990 Hepatitis C screening [facility] Start: 1990 HEPATITIS C SCREENING HEPATITIS C SC REENASRA [facility] Start: 1990 HIV SCREENING HIV SCREENING [facility] Start: 1990 HIV screening HIV Screening [facility] Start: 1990 SPIROMETRY SPIROMETRY [facility] Start: 1990 Tetanus + diphtheria + acellular pertussis vaccine (product) [employer] [facility] Start: 1988 COVID-19 Vaccine (1) COVID-19 Vaccin e (1) [facility] [employer] Phone: Start: 1987 HIV screen HIV screen [place], [place] Start: 1987 HIV screening [facility] Start: 1984 COVID-19 Vaccine (1) COVID-19 Vaccin e (1) [facility] Work Phone: Start: 1984 Depression Monitoring Depression Mon [employer] [facility] Start: 1983 DTaP/Tdap/Td vaccine (1 - Tdap) DTaP/Tdap/Td vaccine (1 - Tdap) [place], [place] Start: 1978 PNEUMOCOCCAL (1 - PCV) PNEUMOCOCCAL (1 - PCV) [facility] Start: 1978 Pneumococcal vaccination Pneumococcal Vaccine (1 - PCV) [facility] Start: 1978 Pneumococcal Vaccine : Pediatrics (0 to 5 Years) and At-Risk Patients (6 to 64 Years) (1 - PCV) Pneumococcal Vaccine: Pediatrics (0 to 5 Years) and At-Risk Patients (6 to 64 Years) (1 - PCV) [facility] Start: 1973 MMR Vaccines (1 of 1 - Standard series) MMR Vaccines (1 of 1 - Standard series) [facility] Start: 1972 COVID-19 VACCINE (#1) COVID-19 VACCI NE (#1) [facility] Start: 1972 HEPATITIS B (1 of 3 - 3-dose series) HEPATITIS B (1 of 3 - 3-dose series) [facility] Start: 1972 Hepatitis B Vaccine (1 of 3 - 3-dose series) Hepatitis B Vaccine (1 of 3 - 3-dose series) [facility] Start: 1972 Hepatitis B Vaccines (1 of 3 - 3-dose series) Hepatitis B Vaccines (1 of 3 - 3-dose series) [facility] Start: 1972 Hepatitis C screening A bonita [facility] Start: 1972 HIV screening HIV Screening [facility] Start: 1972 Lipid panel Lipid Panel [facility] Start: 1972 Screening for malign ant neoplasm of colon [facility] Start: 1972 Tetanus vaccination [facility] Start: 1972 Yearly Adult Physical Yearly Adult P hysical [facility] Acupuncture 1/> ndle s w/o elec stimj init 15 min ACUPUNCT W/O STIMUL 15 MIN Procedures Routine Chronic bilateral low back pain without sciatica Ordered: 08/28/2023 [facility] Work Phone: Comment on above: Ordered: 08/28/2023 Acupuncture 1/> ndle s w/o elec stimj init 15 min ACUPUNCT W/O STIMUL 15 MIN Procedures Routine Chronic bilateral low back pain without sciatica Ordered: 09/20/2023 [facility] Work Phone: Comment on above: Ordered: 09/20/2023 Acupuncture 1/> ndls w/o elec stimj ea 15 min ACUPUNCT W/O STIMUL ADDL 15M Procedures Routine Chronic bilateral low back pain without sciatica Ordered: 08/28/2023 [facility] Comment on above: Ordered: 08/28/2023 Acupuncture 1/> ndls w/o elec stimj ea 15 min ACUPUNCT W/O STIMUL ADDL 15M Procedures Routine Chronic bilateral low back pain without sciatica Ordered: 09/20/2023 [facility] Comment on above: Ordered: 09/20/2023 B12/folate level [facility] Bacteria identified in Urine by Culture Annalisa [facility] Bacteria identified in Urine by Culture [facility] [employer] CBC W Auto Different ial panel - Blood [facility] End: 06-17-2024 CBC W Auto Differential panel - Blood CBC with Auto Differential Lab STAT One Time for 1 Occurrences starting 06/17/2024 until 06/17/2024 [employer] Comment on above: One Time for 1 Occur rences starting 06/17/2024 until 06/17/2024 Chiropractic manipulative tx spinal 3-4 regions CHIROPRAC MANIP,SPINAL,3-4 REGIONS Procedures Routine Segmental and somatic dysfunction of cervical region Segmental and somatic dysfunction of pelvic region Segmental and somatic dysfunction of sacral region Ordered: 08/28/2023 [facility] Comment on above: Ordered: 08/28/2023 Chiropractic manipulative tx spinal 3-4 regions CHIROPRAC MANIP,SPINAL,3-4 REGIONS Procedures Routine Segmental and somatic dysfunction of cervical region Segmental and somatic dysfunction of pelvic region Segmental and somatic dysfunction of sacral region Ordered: 09/20/2023 [facility] Comment on above: Ordered: 09/20/2023 Comprehensive metabo lic 2000 panel - Serum or Plasma [facility] End: 06-17-2024 Comprehensive metabolic 2000 panel - Serum or Plasma CMP Lab STAT One Time for 1 Occurrences starting 06/17/2024 until 06/17/2024 [employer] Comment on above: One Time for 1 Occur rences starting 06/17/2024 until 06/17/2024 End: 04-10-2024 CT Head WO contrast [employer] Comment on above: Once for 1 Occurrenc es starting 04/10/2024 until 04/10/2024 End: 04-10-2024 CT Lumbar spine WO contrast [employer] Comment on above: Once for 1 Occurrenc es starting 04/10/2024 until 04/10/2024 End: 05-15-2024 CT Lumbar spine WO contrast [employer] Work Phone: Comment on above: Once for 1 Occurrenc es starting 05/15/2024 until 05/15/2024 End: 10-18-2023 Culture, Urine [employer] Comment on above: One Time for 1 Occur rences starting 10/18/2023 until 10/18/2023 ECG 12 lead ECG 12 lead ECG STAT 05/17/2024 6:34 AM EDT [facility] Work Phone: EKG 12 Lead EKG 12 Lead ECG STAT 10/18/2023 10:03 AM EDT [employer] EKG 12 Lead EKG 12 Lead ECG STAT 05/20/2024 1:27 PM EDT [employer] EKG 12 Lead EKG 12 Lead ECG STAT 06/03/2024 9:57 AM EDT [employer] Work Phone: EKG 12 Lead EKG 12 Lead ECG STAT 06/10/2024 1:27 PM EDT [employer] End: 06-17-2024 EKG 12 Lead EKG 12 Lead ECG STAT One Time for 1 Occurrences starting 06/17/2024 until 06/17/2024 [employer] Comment on above: One Time for 1 Occur rences starting 06/17/2024 until 06/17/2024 EKG 12 Lead (Abn HR) EKG 12 Lead (Abn HR) ECG STAT 05/22/2024 12:45 PM EDT [employer] EKG 12 Lead (Chest Pain) EKG 12 Lead (Chest Pain) ECG STAT 05/25/2024 10:26 AM EDT [employer] End: 05-17-2024 Electrocardiogram, 12-lead [facility] Service Area Work Phone: Comment on above: As needed until disc ontinued starting 05/17/2024 Once for 1 Occurrenc es starting 05/17/2024 until 05/17/2024 End: 03-16-2025 Extra Urine [employer] Extra Urine [employer] Lab Timed Once for 1 Occurrences starting 05/17/2024 until 05/17/2024 [facility] Work Phone: Comment on above: Once for 1 Occurrenc es starting 05/17/2024 until 05/17/2024 Hemoglobin A1c/Hemoglobin.total in Blood [facility] Lipid panel [facility] Magnesium measurement [facility] Miscellaneous Sendout 1 Miscella neous Sendout 1 Lab Routine Joint swelling Fatigue, unspecified type Elevated erythrocyte sedimentation rate RED positive 11/30/2019 2:49 PM EDT [employer] End: 01-07-2019 MRI BRAIN W WO CONTRAST MRI BRAIN W WO CONTRAST Imaging Routine Nonintractable headache, unspecified chronicity pattern, unspecified headache type 1 Occurrences starting 01/07/2019 until 01/07/2019 [employer] [place] Comment on above: 1 Occurrences starti ng 01/07/2019 until 01/07/2019 MRI LUMBAR SPINE W W O CONTRAST MRI LUMBAR SPINE W WO CONTRAST Imaging STAT 08/17/2022 9:53 AM EDT [facility] Work Phone: End: 11-21-2023 Mri pelvis w/o & w/contrast material MRI PELVIS ORTHO GENERAL WO/W IVCON Radiology Routine Chronic low back pain with sciatica, sciatica laterality unspecified, unspecified back pain laterality Sacroiliac pain Disorder of bone 1 Occurrences starting 10/22/2022 until 11/21/2023 [facility] Work Phone: Comment on above: 1 Occurrences starti ng 10/22/2022 until 11/21/2023 Nebulizer therapy [facility] Work Phone: Comment on above: Every 6hr As Needed until discontinued starting 06/30/2020 Q12H until discontin ued starting 06/30/2020 Njx dx/ther sbst intrlmnr lmbr/sac w/img gdn EPI LUMBAR OR SACRAL W/IMAGING Procedures Routine Lumbar radiculopathy Ordered: 10/08/2023 [facility] Work Phone: Comment on above: Ordered: 10/08/2023 Oxygen therapy [Mini mum Data Set] Initiate Oxygen Therapy Protocol Respiratory Care Routine Daily until discontinued starting 06/30/2020 [employer] Work Phone: Comment on above: Daily until disconti nued starting 06/30/2020 Oxygen therapy [Mini mum Data Set] Initiate Oxygen Therapy Protocol Respiratory Care Routine As Needed until discontinued starting 03/08/2024 [employer] Work Phone: Comment on above: As Needed until disc ontinued starting 03/08/2024 Patient Education [facility] Patient referral [facility] Work Phone: End: 02-02-2019 , urine POCT , urine POCT Point of Care Testing Routine One Time for 1 Occurrences starting 02/02/2019 until 02/02/2019 [employer]- [place], [place] Comment on above: One Time for 1 Occur rences starting 02/02/2019 until 02/02/2019 End: 03-17-2019 , urine POCT , urine POCT Point of Care Testing Routine One Time for 1 Occurrences starting 03/17/2019 until 03/17/2019 [employer] Work Phone: Comment on above: One Time for 1 Occur rences starting 03/17/2019 until 03/17/2019 Thyroid stimulating hormone measurement [facility] End: 03-09-2024 Thyrotropin [Units/volume] in Serum or Plasma [employer] Work Phone: Comment on above: One Time for 1 Occur rences starting 03/09/2024 until 03/09/2024 End: 03-09-2024 Thyroxine (T4) free [Mass/volume] in Serum or Plasma [employer] Comment on above: One Time for 1 Occur rences starting 03/09/2024 until 03/09/2024 End: 06-05-2024 Troponin I.cardiac [Mass/volume] in Serum or Plasma Troponin Lab STAT One Time for 1 Occurrences starting 06/05/2024 until 06/05/2024 [employer] Comment on above: One Time for 1 Occur rences starting 06/05/2024 until 06/05/2024 End: 06-17-2024 Troponin I.cardiac [Mass/volume] in Serum or Plasma Troponin Lab STAT One Time for 1 Occurrences starting 06/17/2024 until 06/17/2024 [facility] [employer] [facility] Comment on above: One Time for 1 Occur rences starting 06/17/2024 until 06/17/2024 End: 05-17-2024 Troponin I.cardiac panel - Serum or Plasma by High sensitivity method [facility] Work Phone: Comment on above: STAT (Lab) for 1 Occ urrences starting 05/17/2024 until 05/17/2024 Urinalysis complete W Reflex Culture panel - Urine [facility] End: 05-17-2024 Urinalysis complete W Reflex Culture panel - Urine [facility] Work Phone: Comment on above: Once (Lab) for 1 Occ urrences starting 05/17/2024 until 05/17/2024 Once for 1 Occurrenc es starting 05/17/2024 until 05/17/2024 End: 03-09-2024 [facility] Comment on above: One Time for 1 Occur rences starting 03/09/2024 until 03/09/2024 Vitamin D, 25-hydrox y measurement [facility] End: 01-07-2019 VL DUP CAROTID BILATERAL VL DUP CAROTID BILATERAL Imaging Routine Syncope and collapse 1 Occurrences starting 01/07/2019 until 01/07/2019 [facility]- [place], [place] Comment on above: 1 Occurrences starti ng 01/07/2019 until 01/07/2019 XR Ankle - left 3 Views XR ANKLE LEFT 3 VIEWS Imaging STAT 08/06/2023 7:05 AM EDT [employer] Work Phone: End: 02-10-2024 XR Cervical spine 2 or 3 Views [facility] Service Area Work Phone: Comment on above: Once for 1 Occurrenc es starting 02/10/2024 until 02/10/2024 End: 06-05-2024 XR Chest 2 Views XR CHEST (2 VW) Imaging STAT Once for 1 Occurrences starting 06/05/2024 until 06/05/2024 [employer] Work Phone: Comment on above: Once for 1 Occurrenc es starting 06/05/2024 until 06/05/2024 End: 02-05-2023 XR Hip Views XR hip left with pelvis when performed 2 or 3 views Imaging STAT Once for 1 Occurrences starting 02/05/2023 until 02/05/2023 [facility] Service Area Work Phone: Comment on above: Once for 1 Occurrenc es starting 02/05/2023 until 02/05/2023 End: 02-10-2024 XR Hip Views [facility] Work Phone: Comment on above: Once for 1 Occurrenc es starting 02/10/2024 until 02/10/2024 End: 04-07-2024 XR Pelvis and Hip - right 2 Views [facility] Comment on above: Once for 1 Occurrenc es starting 04/07/2024 until 04/07/2024 XR Sacrum and Coccyx Views XR SACRUM-COCCYX 3 VIEWS Imaging STAT 08/06/2023 7:04 AM EDT [facility] End: 02-10-2024 XR Shoulder - right 2 Views [facility] Work Phone: Comment on above: Once for 1 Occurrenc es starting 02/10/2024 until 02/10/2024 End: 09-25-2024 XR Spine Lumbar and Sacrum GE 6 Views XR LUMBAR SPNE COMP 6V AP/LAT/BOTH OBL/FLEX/EXT (AK) Radiology Routine Chronic bilateral low back pain without sciatica 1 Occurrences starting 08/28/2023 until 09/25/2024 [facility] Comment on above: 1 Occurrences starti ng 08/28/2023 until 09/25/2024 [facility] Immunizations Immunization Date Immunization Notes Care Provider Jamie scherer 02-28-2024 tetanus and diphther ia toxoids, adsorbed, preservative free, for adult use (5 Lf of tetanus toxoid and 2 Lf of diphtheria toxoid) Maria Elena Montalvo MD [facility] [employer] 12-04-2023 influenza, seasonal, injectable [facility] 12-04-2023 influenza virus vaccine, unspecified formulation Bayron iFelds APRN.TECHNICAL APPLICATIONS SPECIALIST Work Phone: [facility] 12-30-2021 Influenza, injectabl e, Madin Manderson Canine Kidney, preservative free, quadrivalent Rosalie South Renovo DO Work Phone: [facility] 12-30-2021 influenza virus vaccine, unspecified formulation Lesley Abhishek SPENCEYD Work Phone: [facility] 06-06-2021 influenza, seasonal, injectable Mri Bore/1.5t) Work Phone: [facility] 03-06-2021 Moderna Monovalent (12+ yrs) COVID-19 vaccine, mRNA, spike protein, LNP, PF, 100 mcg/0.5 mL (LMS=509) Rosalie Chevy DO Work Phone: [facility] 01-30-2021 Influenza, injectabl e, Madin Cindy Canine Kidney, preservative free, quadrivalent [facility] 07-19-2020 influenza, seasonal, injectable Mri Bore/1.5t) Work Phone: [facility] 07-19-2020 pneumococcal vaccine , unspecified formulation Mri Bore/1.5t) Work Phone: [facility] 07-18-2020 COVID-19 vaccine, unspecified formulation Mri Bore/1.5t) Work Phone: [facility] 06-28-2020 Moderna Monovalent (12+ yrs) COVID-19 vaccine, mRNA, spike protein, LNP, PF, 100 mcg/0.5 mL (OLA=625) Rosalie Chevy DO Work Phone: [facility] 05-31-2020 Moderna Monovalent (12+ yrs) COVID-19 vaccine, mRNA, spike protein, LNP, PF, 100 mcg/0.5 mL (XWN=647) Rosalie Chevy DO Work Phone: [facility] 11-24-2019 influenza, injectabl e, quadrivalent, preservative free Rosalie Chevy DO Work Phone: [facility] 11-24-2019 pneumococcal polysaccharide vaccine, 23 valent Rosalie South Renovo DO Work Phone: [facility] 12-24-2018 influenza, injectabl e, quadrivalent, preservative free Rosalie Chevy DO Work Phone: [facility] 12-16-2017 Influenza, injectabl e, Madin Manderson Canine Kidney, preservative free, quadrivalent Rosalie South Renovo DO Work Phone: [facility] Payers Date Payer Category Payer Legal Liability / Liability Insurance ACCIDENT RELATED NON-MEDICARE [id number] 05-17-2024 Unknown GENERIC AUTO INS URANCE [id number] .[id number] 12-23-2022 Self-pay [id number] 04-04-2022 Medicaid [id number] .[id number] 05-17-2021 Unknown GENERIC AUTO INS URANCE [id number] .[id number] 05-17-2021 Unknown GENERIC AUTO INS URANCE [place]AR [place]IE [id number] 1.2.840.280725.1.13.239.2 .[id number] 01-02-2019 Medicaid (Managed Care) 1.2. [id number] .[id number] 01-02-2019 Unknown 03-04-2014 Unknown [facility] xxxxxxxxxxxx 2014-Present [phone] [address] [place] [address] xxxxxxxxxxxx 1.2.840.637615.1.13.239.2 .7.3.669700.315 1972 Unknown [id number] 2.16.840.1.063503.3.579.2 .356 1972 Unknown [id number] 2.16.840.1.200485.3.579.2 .1069 1972 Unknown [id number] 2.16.840.1.059689.3.579.2 .1068 1972 Unknown [id number] 2.16.840.1.197941.3.579.2 .1068 1972 Unknown [id number] 2.16.840.1.603683.3.579.2 .1068 1972 Unknown [id number] 2.16.840.1.385303.3.579.2 .1068 1972 Unknown [id number] 2.16.840.1.263831.3.579.2 .1068 1972 Unknown [id number] 2.16.840.1.984385.3.579.2 .1068 1972 Unknown [id number] 2.16840.1.772009.3.579.2 .204 1972 Unknown [id number] 2.16840.1.213782.3.579.2 .204 1972 Unknown [id number] 2.16840.1.260785.3.579.2 .204 1972 Unknown [id number] 2.16840.1.504232.3.579.2 .204 1972 Unknown [id number] 2.16840.1.256150.3.579.2 .204 1972 Unknown [id number] 2.16840.1.580951.3.579.2 .204 1972 Unknown [id number] 2.16.840.1.316024.3.579.2 .204 1972 Unknown [id number] 2.16840.1.983024.3.579.2 .204 1972 Unknown [id number] 2.16840.1.733228.3.579.2 .204 1972 Unknown [id number] 2.16840.1.639159.3.579.2 .204 1972 Unknown [id number] 2.16.840.1.177236.3.579.2 .204 1972 Unknown [id number] 2.16.840.1.667804.3.579.2 .983 1972 Unknown [id number] 2.16.840.1.474318.3.579.2 .903 1972 Unknown [id number] 2.16840.1.416506.3.579.2 .627 1972 Unknown [id number] 2.16840.1.418094.3.579.2 .627 1972 Unknown [id number] 2.16840.1.584726.3.579.2 .627 1972 Unknown [id number] 2.840.1.455637.3.579.2 .1245 1972 Unknown [id number] .840.1.993109.3.579.2 .1244 1972 Unknown [id number] 2.840.1.852359.3.579.2 .732 1972 Unknown [id number] .840.1.038621.3.579.2 .732 1972 Unknown [id number] 2.840.1.355721.3.579.2 .732 1972 Unknown [id number] .840.1.654957.3.579.2 .732 1972 Unknown [id number] .840.1.291415.3.579.2 .732 1972 Unknown [id number] .16840.1.237667.3.579.2 .732 1972 Unknown [id number] 2.16840.1.499381.3.579.2 .732 1972 Unknown [id number] 2.16840.1.081621.3.579.2 .732 1972 Unknown [id number] 2.16.840.1.483701.3.579.2 .732 1972 Unknown [id number] 2.16.840.1.041927.3.579.2 .1242 1972 Unknown [id number] 2.16.840.1.714683.3.579.2 .1242 1972 Unknown [id number] 2.16.840.1.898414.3.579.2 .598 1972 Unknown [id number] 2.16.840.1.757156.3.579.2 .598 1972 Unknown [id number] 2.16840.1.827899.3.579.2 .627 1972 Unknown [id number] 2.16840.1.935260.3.579.2 .627 1972 Unknown [id number] 2.16840.1.992067.3.579.2 .627 1972 Unknown [id number] 2.16840.1.256169.3.579.2 .627 1972 Unknown [id number] 2.16840.1.840685.3.579.2 .627 1972 Unknown [id number] 2.16840.1.654173.3.579.2 .1243 1972 Unknown [id number] 2.16.840.1.138970.3.579.2 .1243 1972 Unknown [id number] 2.16.840.1.722361.3.579.2 .1243 1972 Unknown [id number] 2.16.840.1.159554.3.579.2 .1243 1972 Unknown [id number] 2.16.840.1.340170.3.579.2 .1243 1972 Unknown [id number] 2.16.840.1.016817.3.579.2 .1243 1972 Unknown [id number] 2.16.840.1.754652.3.579.2 .1243 1972 Unknown [id number] 2.16.840.1.035015.3.579.2 .1243 1972 Unknown [id number] 2.16.840.1.975002.3.579.2 .1243 1972 Unknown [id number] 2.16.840.1.569834.3.579.2 .204 1972 Unknown [id number] 2.16.840.1.897311.3.579.2 .204 1972 Unknown [id number] 2.16840.1.397464.3.579.2 .204 1972 Unknown [id number] 2.16840.1.809896.3.579.2 .204 1972 Unknown [id number] 2.16840.1.377789.3.579.2 .204 1972 Unknown [id number] 2.16840.1.085699.3.579.2 .204 1972 Unknown [id number] 2.16840.1.930087.3.579.2 .204 1972 Unknown [id number] 2.16840.1.631235.3.579.2 .204 1972 Unknown [id number] 2.16840.1.386929.3.579.2 .204 1972 Unknown [id number] 2.16840.1.719795.3.579.2 .204 1972 Unknown [id number] 2.16840.1.756805.3.579.2 .204 1972 Unknown [id number] 2.16840.1.112431.3.579.2 .204 1972 Unknown [id number] 2.16840.1.037221.3.579.2 .204 1972 Unknown [id number] 2.16.840.1.775996.3.579.2 .204 1972 Unknown [id number] 2.16.840.1.428850.3.579.2 .204 1972 Unknown [id number] 2.16.840.1.717767.3.579.2 .204 1972 Unknown [id number] 2.16840.1.172297.3.579.2 .204 1972 Unknown [id number] 2.16840.1.818830.3.579.2 .1972 Unknown [id number] 2.16840.1.607707.3.579.2 .1972 Unknown [id number] 2.16840.1.547864.3.579.2 .1972 Unknown [id number] 2.16840.1.608823.3.579.2 .204 1972 Unknown [id number] 2.16840.1.293325.3.579.2 .1972 Unknown [id number] 2.16840.1.605260.3.579.2 .1972 Unknown [id number] 2.16840.1.314652.3.579.2 .1972 Unknown [id number] 2.16840.1.689037.3.579.2 .204 1972 Unknown [id number] 2.16840.1.148562.3.579.2 .204 1972 Unknown [id number] 2.16840.1.052076.3.579.2 .204 1972 Unknown [id number] 2.16840.1.139617.3.579.2 .204 1972 Unknown [id number] 2.16840.1.169926.3.579.2 .204 1972 Unknown [id number] 2.16.840.1.270572.3.579.2 .204 1972 Unknown [id number] 2.16840.1.672289.3.579.2 .1972 Unknown [id number] 2.16.840.1.443194.3.579.2 .204 1972 Unknown [id number] 2.16840.1.509262.3.579.2 .1972 Unknown [id number] 2.16840.1.454680.3.579.2 .1972 Unknown [id number] 2.16840.1.922074.3.579.2 .1972 Unknown [id number] 2.840.1.130378.3.579.2 .1972 Unknown [id number] 2.840.1.580801.3.579.2 .1972 Unknown [id number] 2.16840.1.133066.3.579.2 .204 1972 Unknown [id number] 2.16840.1.513588.3.579.2 .1972 Unknown [id number] 2.16840.1.918438.3.579.2 .1972 Unknown [id number] 2.16840.1.419406.3.579.2 .204 1972 Unknown [id number] 2.16840.1.070759.3.579.2 .204 1972 Unknown [id number] 2.16840.1.652447.3.579.2 .1972 Unknown [id number] 2.16840.1.049283.3.579.2 .204 1972 Unknown [id number] 2.16840.1.964550.3.579.2 .204 1972 Unknown [id number] 2.16.840.1.185301.3.579.2 .204 1972 Unknown [id number] 2.16.840.1.666395.3.579.2 .204 1972 Unknown [id number] 2.16.840.1.471666.3.579.2 .204 1972 Unknown [id number] 2.16.840.1.687340.3.579.2 .204 1972 Unknown [id number] 2.16.840.1.940743.3.579.2 .204 1972 Unknown [id number] 2.16840.1.740221.3.579.2 .204 1972 Unknown [id number] 2.16840.1.126488.3.579.2 .204 1972 Unknown [id number] 2.16840.1.690598.3.579.2 .204 1972 Unknown [id number] 2.16840.1.259435.3.579.2 .204 1972 Unknown [id number] 2.16840.1.355929.3.579.2 .204 1972 Unknown [id number] 2.16840.1.402560.3.579.2 .204 1972 Unknown [id number] 2.16840.1.116960.3.579.2 .204 1972 Unknown [id number] 2.16840.1.703515.3.579.2 .204 1972 Unknown [id number] 2.16840.1.997582.3.579.2 .204 1972 Unknown [id number] 2.16840.1.245439.3.579.2 .204 1972 Unknown [id number] 2.16840.1.353297.3.579.2 .204 1972 Unknown [id number] 2.16.840.1.555541.3.579.2 .204 1972 Unknown [id number] 2.16.840.1.175731.3.579.2 .204 1972 Unknown [id number] 2.16.840.1.998276.3.579.2 .204 1972 Unknown [id number] 2.16840.1.482243.3.579.2 .204 1972 Unknown [id number] 2.16840.1.157058.3.579.2 .204 1972 Unknown [id number] 2.16840.1.245348.3.579.2 .204 1972 Unknown [id number] 2.16840.1.294288.3.579.2 .204 1972 Unknown [id number] 2.840.1.092181.3.579.2 .204 1972 Unknown [id number] 2.16840.1.545593.3.579.2 .204 1972 Unknown [id number] 2.16840.1.677087.3.579.2 .204 1972 Unknown [id number] 2.840.1.751264.3.579.2 .204 1972 Unknown [id number] 2.840.1.774370.3.579.2 .204 1972 Unknown [id number] 2.16840.1.790965.3.579.2 .204 1972 Unknown [id number] 2.16840.1.049277.3.579.2 .204 1972 Unknown [id number] 2.16840.1.412134.3.579.2 .204 1972 Unknown [id number] 2.16840.1.582158.3.579.2 .204 1972 Unknown [id number] 2.16.840.1.702828.3.579.2 .204 1972 Unknown [id number] 2.16.840.1.760190.3.579.2 .204 1972 Unknown [id number] 2.16.840.1.790986.3.579.2 .204 1972 Unknown [id number] 2.16.840.1.045736.3.579.2 .204 1972 Unknown [id number] 2.16.840.1.164181.3.579.2 .204 1972 Unknown [id number] 2.16.840.1.491914.3.579.2 .204 1972 Unknown [id number] 2.16.840.1.013537.3.579.2 .204 1972 Unknown [id number] 2.16840.1.711286.3.579.2 .204 1972 Unknown [id number] 2.16.840.1.021429.3.579.2 .204 1972 Unknown [id number] 2.16840.1.646984.3.579.2 .204 1972 Unknown [id number] 2.16.840.1.120584.3.579.2 .204 1972 Unknown [id number] 2.16840.1.791986.3.579.2 .204 1972 Unknown [id number] 2.16.840.1.009117.3.579.2 .204 1972 Unknown [id number] 2.16.840.1.952224.3.579.2 .204 03-04-1957 Unknown [id number] 1.2.840.618425.1.13.239.2 .7.3.331734.315 Unknown [id number] 2.16.840.1.365582.3.579.2 .443 Unknown [id number] 2.16.840.1.288282.3.579.2 .630 Unknown [id number] 2.840.1.273122.3.579.2 .630 Unknown [id number] 2.16.840.1.571149.3.579.2 .630 Unknown [id number] 2.16.840.1.283774.3.579.2 .630 Unknown [id number] 2.840.1.414217.3.579.2 .630 Unknown [id number] 2.840.1.016705.3.579.2 .630 Unknown [id number] 2.840.1.189991.3.579.2 .462 Unknown [id number] 2.840.1.501646.3.579.2 .462 Unknown [id number] 2.840.1.412050.3.579.2 .462 Unknown [id number] 2.840.1.850059.3.579.2 .462 Unknown [id number] 2.840.1.011034.3.579.2 .579 Unknown [id number] .840.1.205778.3.579.2 .579 Unknown [id number] .840.1.287128.3.579.2 .579 Unknown [id number] .840.1.594076.3.579.2 .579 Unknown [id number] .840.1.127033.3.579.2 .579 Unknown [id number] .840.1.406520.3.579.2 .579 Unknown [id number] 2.840.1.394404.3.579.2 .579 Unknown [id number] 2.840.1.345808.3.579.2 .579 Unknown [id number] 2.840.1.193669.3.579.2 .579 Unknown [id number] 2.16.840.1.729515.3.579.2 .579 Unknown [id number] 2.16.840.1.460703.3.579.2 .579 Unknown [id number] 2.16.840.1.896800.3.579.2 .579 Unknown [id number] 2.16.840.1.901572.3.579.2 .579 Unknown [id number] 2.16.840.1.659282.3.579.2 .921 Unknown [id number] 2.16.840.1.440887.3.579.2 .921 Unknown [id number] 2.16.840.1.066842.3.579.2 .921 Unknown [id number] 2.16.840.1.836785.3.579.2 .212 Unknown [id number] 2.16.840.1.777985.3.579.2 .212 Unknown [id number] 2.16.840.1.638476.3.579.2 .212 Unknown [id number] 2.16.840.1.507377.3.579.2 .212 Unknown [id number] 2.16.840.1.961363.3.579.2 .212 Unknown [id number] 2.16.840.1.176868.3.579.2 .212 Unknown [id number] 2.16.840.1.638553.3.579.2 .212 Unknown [id number] 2.16.840.1.546179.3.579.2 .212 Unknown [id number] 2.16.840.1.306986.3.579.2 .212 Unknown [id number] 2.16.840.1.579026.3.579.2 .212 Unknown [id number] 2.16.840.1.092701.3.579.2 .212 Unknown [id number] 2.16.840.1.978692.3.579.2 .212 Social History Date Type Detail Facility Start: 12-03-2018 End: 03-17-2019 Tobacco smoking status NHIS Former smoker [facility] [place] Start: 03-04-2015 End: 06-03-2018 History of tobacco use Current smoker [place] Start: 03-04-2015 End: 06-03-2018 History of tobacco use Cigarette Smoker [place] Start: 12-03-2018 End: 02-12-2024 Cigarettes smoked current (pack per day) - Reported [facility] Work Phone: Start: 12-03-2018 End: 02-12-2024 Alcohol intake No [facility] Work Phone: Start: 08-14-2011 Alcohol Comment rarely [place] Start: 1970 Sex Assigned At Not on file [place] Start: 01-08-2019 End: 09-02-2023 Alcohol intake Current non-drinker of alcohol (finding) [place] Start: 11-17-2019 End: 04-30-2024 Tobacco use and exposure Never used [place] Start: 06-13-2022 End: 07-12-2024 Exposure to SARS-CoV-2 (event) Not sure [facility] Start: 11-04-2020 End: 03-07-2022 History SDOH Financial 5 [employer] [facility] [employer] Phone: Start: 11-04-2020 End: 03-07-2022 History SDOH Food Worry 1 [employer] [facility] Phone: Start: 03-04-2015 End: 09-29-2023 Tobacco smoking status NMIS Occasional tobacco smoker [facility] [employer] [facility] [employer] Start: 10-28-2014 End: 08-13-2023 Tobacco smoking status NMIS Never smoked tobacco [facility] Start: 11-19-2014 Alcohol intake Not Asked [facility] Start: 05-02-2022 End: 08-06-2024 Alcohol intake Lifetime non-drinker (finding) [facility] Start: 04-04-2023 End: 07-07-2024 Tobacco smoking consumption unknown [facility] Start: 08-01-2022 Never Smoker [facility] Start: 1970 Sex Assigned At Female [facility] National Score (1-100), lower number is lower risk 86 [facility] Work Phone: Start: 11-25-2022 End: 04-30-2024 Tobacco smoking status NHIS Smokes tobacco daily (finding) [facility] Start: 08-12-2022 No [facility] How often to you have a drink containing alcohol? Never [facility] [employer] How hard is it for you to pay for the very basics like food, housing, medical care, and heating Not very hard [employer] (I/We) worried whether (my/our) food would run out before (I/we) got money to buy more. Never true [employer] At any time in the past 12 months, were you homeless or living in half-way [including now]? No [facility] Start: 04-04-2023 N [facility] Work Phone: Start: 04-04-2023 Y [facility] Work Phone: Tobacco smoking status [facility] Start: 08-01-2023 DENIES [facility] Work Phone: Start: 08-01-2023 DEBIES [facility] Work Phone: Start: 08-01-2023 Y - 1/2 PPD [facility] Work Phone: Start: 09-05-2023 YES. ABOUT 1/2 [facility] Work Phone: Start: 09-29-2023 End: 07-12-2024 Alcohol intake Ex-drinker (finding) [facility] Work Phone: Start: 10-26-2023 Light Tobacco Smoker (< 10 cigarettes per day) [facility] Work Phone: Start: 10-26-2023 Yes Radha zaragoza [facility] Work Phone: Start: 12-16-2023 Tobacco smoking status Heavy tobacco smoker (finding) [facility] How often to you have a drink containing alcohol? Monthly or less [employer] How many standard drinks containing alcohol do you have on a typical day? 1 or 2 [employer] Start: 01-16-2024 1/2PPD [facility] Work Phone: Start: 03-19-2024 YES [facility] Work Phone: Start: 03-25-2024 Current Every Day Smoker Current Every Day Smoker [facility] Start: 04-12-2012 End: 03-25-2024 Sex Female (finding) [facility] Start: 07-07-2024 2 A DAY [facility] Work Phone: NEGATED: Highlighted row [facility] Functional Status Date Assessment Result Facility 08-20-2024 [place] - suicide severity rating scale screener - recent [C-SSRS] [facility] Work Phone: 07-12-2024 [place] - suicide severity rating scale screener - recent [C-SSRS] [facility] Work Phone: 04-11-2024 Functional Status Repositions self [facility] 12-22-2023 Functional Status Room check performed [facility] 10-23-2023 Are you deaf, or do you have serious difficulty hearing No 10/23/2023 4:29 PM [place] Florence, NIK No [facility] 10-23-2023 Are you blind, or do you have serious difficulty seeing, even when wearing glasses No 10/23/2023 4:29 PM Gaston Florence, RN No [facility] 10-23-2023 Do you have serious difficulty walking or climbing stairs No 10/23/2023 4:29 PM Gaston Florence, RN No [facility] 10-23-2023 Do you have difficul ty dressing or bathing No 10/23/2023 4:29 PM Gaston Florence, RN No [facility] 10-23-2023 Because of a physica l, mental, or emotional condition, do you have difficulty doing errands alone such as visiting a physician's office or shopping No 10/23/2023 4:29 PM Gaston Florence RN No [facility] 08-15-2023 Functional Status Awake Enriqueta Kamlesh phillips 08-15-2023 Functional Status Standard Safet y ID band on, Call device within reach, Bed in low position, Wheels locked [facility] 06-02-2023 Functional status Normal [facility] Work Phone: 05-16-2023 Functional Status Assistive Device None A [facility] 05-16-2023 Functional Status Repositions self [facility] 03-06-2023 Functional status Normal [facility] Work Phone: 12-21-2022 Functional status Normal [facility] Work Phone: 11-25-2022 Functional status Parent [facility] Work Phone: [facility] Mental Status Date Assessment Result Facility 04-11-2024 Mental Status Oriented x [address] [facility] 10-23-2023 Because of a physica l, mental, or emotional condition, do you have serious difficulty concentrating, remembering, or making decisions No 10/23/2023 4:29 PM Gaston Florence RN No [facility] 08-15-2023 Mental Status Oriented x [address] [facility] 08-15-[address] [facility] 06-15-2023 Cognitive function Patient Remington steel Person;Place;Time;Location /Situation [facility] Work Phone: 05-16-2023 Mental Status Orientation Oriented x 4 [facility] 05-16-[address] [facility] 12-21-2022 Cognitive function Appropriate;[facility] Work Phone: 11-25-2022 Cognitive function Mood Description Mohinder lomeli [facility] Work Phone: 09-25-2022 Cognitive function Patient Orimedina singhion Person;Place;Time;Location /Situation [facility] Work Phone: 08-18-2022 Cognitive function Patient Orimedina tation Person;Place;Time;Location /Situation [facility] Work Phone: 08-17-2022 Cognitive function Patient Orimedina steel Person;Place;Time;Location /Situation [facility] Work Phone: Clinical Notes 03-17-2019 to 08-20-2024 [facility] - 08/20/2024 10:46 AM EDTJerobert Marcial APRNXUAN - 08/20/2024 10:46 AM EDTDischarge InstructionsAttachmentsDischarge InstructionsDischarge InstructionsAttachments Note Date & Type Note Facility 08-20-2024 Physician Emergency department Note Chief Complaint Patient presents with Shoulder Pain (L) shoulder pain started 2 days ago while at work, pt states, 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 HPI 54 year old right hand dominant female presents to the Emergency Department today complaining of left shoulder and elbow pain status post injury that occurred 2 days ago. 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 Notes that this incident seemed to exacerbate her chronic back pain. Denies any associated fever, chills, headache, neck pain, chest pain, shortness of breath, abdominal pain, nausea, vomiting, diarrhea, constipation, hematemesis, hematochezia, melena, urinary symptoms, paresthesias, focal weakness of extremities, or problems with bowel or bladder function. Has an underlying history of ankylosing spondylitis for which she is to be evaluated by a new dipper fish soon. History provided by: Patient Patient History Medical History[1] Surgical History[2] Family History[3] Social History[4] Physical Exam Constitutional: Appearance: Normal appearance. HENT: Head: Normocephalic. Right Ear: External ear normal. Left Ear: External ear normal. Nose: Nose normal. No septal deviation. Right Turbinates: Not enlarged. Left Turbinates: Not enlarged. Mouth/Throat: Lips: [place]. Mouth: Mucous membranes are moist. Dentition: No dental caries. Tongue: No lesions. Pharynx: Oropharynx is clear. Uvula midline. Tonsils: No tonsillar exudate. 1+ on the right. 1+ on the left. Eyes: General: Lids are normal. Conjunctiva/sclera: Conjunctivae normal. Cardiovascular: Rate and Rhythm: Normal rate and regular rhythm. Pulses: Radial pulses are 3+ on the right side and 3+ on the left side. Heart sounds: Normal heart sounds. No murmur heard. No friction rub. No gallop. Pulmonary: Effort: Pulmonary effort is normal. Breath sounds: Normal breath sounds. No wheezing, rhonchi or rales. Abdominal: General: Abdomen is flat. Bowel sounds are normal. Palpations: Abdomen is soft. Tenderness: There is no abdominal tenderness. There is no right CVA tenderness or left CVA tenderness. Negative signs include Granados's sign and McBurney's sign. Musculoskeletal: Cervical back: Full passive range of motion without pain and neck supple. Comments: No edema, cyanosis, or clubbing noted. No spinous process tenderness, but does have bilateral paraspinal muscle tenderness to the lumbar sacral region. No saddle paresthesias. Negative straight leg raises. Able to plantarflex and dorsiflex bilateral great toes without difficulty. No obvious deformity, ecchymosis, edema, or bony tednerness noted to her left upper extremity. Full ROM. Left radial pulse is strong and regular. Capillary refill was within normal limits. Sensation is intact distally. Lymphadenopathy: Cervical: No cervical adenopathy. Skin: General: Skin is warm. Capillary Refill: Capillary refill takes less than 2 seconds. Findings: No petechiae or rash. Rash is not purpuric. Neurological: Mental Status: She is alert and oriented to person, place, and time. Sensory: Sensation is intact. Motor: Motor function is intact. Coordination: Coordination is intact. Gait: Gait is intact. Psychiatric: Attention and Perception: Attention normal. Mood and Affect: Mood normal. Speech: Speech normal. Behavior: Behavior normal. Behavior is cooperative. Labs Reviewed - No data to display XR elbow left 3+ views Final Result No acute abnormality in the left elbow MACRO: None Signed by: Shashank Bettencourt 08/20/2024 11:14 AM Dictation workstation: [id number] XR shoulder left 2+ views Final Result No acute abnormality seen. Findings suggestive of calcific tendinitis in the distal infraspinatus MACRO: None Signed by: Shashank Bettencourt 08/20/2024 11:15 AM Dictation workstation: [id number] XR thoracic spine 2 views Final Result No acute abnormality in the thoracic spine MACRO: None Signed by: Shashank Bettencourt 08/20/2024 11:16 AM Dictation workstation: [id number] XR lumbar spine 2-3 views Final Result Mild facet disease and minimal spondylosis lower lumbar spine MACRO: None Signed by: Shashank Bettencourt 08/20/2024 11:15 AM Dictation workstation: [id number] ED Course & MDM Diagnoses as of 08/20/24 1147 Acute on chronic back pain Calcific tendinitis of left shoulder Medical Decision Making Patient was seen and evaluated by myself. Thoracic spine, lumbar spine, left shoulder, and left elbow x-rays show no acute abnormality in the thoracic spine; mild facet disease and minimal spondylosis lower lumbar spine; no acute abnormality seen in left shoulder, but findings suggestive of calcific tendinitis in the distal infraspinatus are noted; and no acute abnormality in the left elbow, I independently reviewed the x-rays and concur with radiology interpretation. Given an injection of Toradol and a Lidoderm patch was placed with improvement in her pain. Exhibits no signs of cauda equina or spinal epidural abscess. I feel that she is experiencing an acute exacerbation of her chronic back pain. I feel that her shoulder pain is related to calcific tendinitis. I explained the treatment for such and importance of follow up. Instructed to apply ice or heat as needed. Given prescriptions for Toradol, Lidoderm patches, and Flexeril. No contraindications to NSAIDs are noted. She requested that I give her a prescription for narcotic pain medications. There is no clinical indication for such. I explained this to the patient at length and she verbalized understanding. She did cry intermittently throughout her visit. States that no one wants to help her. I apologized for her feelings and stated that I would refer her to an senior education specialist and perinatal specialist. Follow up with their doctor in 1 week. Return if worse in any way. Discharged in stable condition with computer instructions. Diagnostic Impression: 1. Acute exacerbation of chronic back pain 2. Calcific tendinitis of the left shoulder 3. IM injection 4. Prescription therapy Your medication list ASK your doctor about these medications Instructions Last Dose Given Next Dose Due acetaminophen 325 mg tablet Commonly known as: TylenoL Take 2 tablets (650 mg) by mouth every 6 hours if needed for mild pain (1 - 3) or fever (temp greater than 38.0 C). cyclobenzaprine 10 mg tablet Commonly known as: Flexeril Take 1 tablet (10 mg) by mouth 3 times a day as needed for muscle spasms for up to 5 days[address] D[address] capsule Commonly known as: Cymbalta qodbqouliax-dwuclnkrt-ifzinphq 200-62.5-25 mcg blister with device Commonly known as: TRELEGY-ELLIPTA Inhale 1 puff once daily. gabapentin 800 mg tablet Commonly known as: Neurontin hydrOXYzine pamoate 25 mg capsule Commonly known as: Vistaril lamoTRIgine 150 mg tablet Commonly known as: LaMICtal naproxen 500 mg tablet Commonly known as: Naprosyn Take 1 tablet (500 mg) by mouth every 12 hours. predniSONE 10 mg tablet Commonly known as: Deltasone Take three tablets orally day 1-3, two tablets day 4-6, and one tablet day 7-9 Procedure Procedures [1] Past Medical History: Diagnosis Date Epilepsy Rotator cuff disorder [2] Past Surgical History: Procedure Laterality Date HERNIA REPAIR [3] No family history on file. [4] Social History Tobacco Use Smoking status: Every Day Current packs/day: 0.50 Types: Cigarettes Smokeless tobacco: Never Vaping Use Vaping status: Never Used Substance Use Topics Alcohol use: Not Currently Drug use: Never EVON Sylvester 08/20/24 1150 [facility] Work Phone: 08-20-2024 Emergency department Note Chief Complaint Patient presents with Shoulder Pain (L) shoulder pain started 2 days ago while at work, pt states, 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 HPI 54 year old right hand dominant female presents to the Emergency Department today complaining of left shoulder and elbow pain status post injury that occurred 2 days ago. 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 Notes that this incident seemed to exacerbate her chronic back pain. Denies any associated fever, chills, headache, neck pain, chest pain, shortness of breath, abdominal pain, nausea, vomiting, diarrhea, constipation, hematemesis, hematochezia, melena, urinary symptoms, paresthesias, focal weakness of extremities, or problems with bowel or bladder function. Has an underlying history of ankylosing spondylitis for which she is to be evaluated by a new dipper fish soon. History provided by: Patient Patient History Medical History[1] Surgical History[2] Family History[3] Social History[4] Physical Exam Constitutional: Appearance: Normal appearance. HENT: Head: Normocephalic. Right Ear: External ear normal. Left Ear: External ear normal. Nose: Nose normal. No septal deviation. Right Turbinates: Not enlarged. Left Turbinates: Not enlarged. Mouth/Throat: Lips: [place]. Mouth: Mucous membranes are moist. Dentition: No dental caries. Tongue: No lesions. Pharynx: Oropharynx is clear. Uvula midline. Tonsils: No tonsillar exudate. 1+ on the right. 1+ on the left. Eyes: General: Lids are normal. Conjunctiva/sclera: Conjunctivae normal. Cardiovascular: Rate and Rhythm: Normal rate and regular rhythm. Pulses: Radial pulses are 3+ on the right side and 3+ on the left side. Heart sounds: Normal heart sounds. No murmur heard. No friction rub. No gallop. Pulmonary: Effort: Pulmonary effort is normal. Breath sounds: Normal breath sounds. No wheezing, rhonchi or rales. Abdominal: General: Abdomen is flat. Bowel sounds are normal. Palpations: Abdomen is soft. Tenderness: There is no abdominal tenderness. There is no right CVA tenderness or left CVA tenderness. Negative signs include Granados's sign and McBurney's sign. Musculoskeletal: Cervical back: Full passive range of motion without pain and neck supple. Comments: No edema, cyanosis, or clubbing noted. No spinous process tenderness, but does have bilateral paraspinal muscle tenderness to the lumbar sacral region. No saddle paresthesias. Negative straight leg raises. Able to plantarflex and dorsiflex bilateral great toes without difficulty. No obvious deformity, ecchymosis, edema, or bony tednerness noted to her left upper extremity. Full ROM. Left radial pulse is strong and regular. Capillary refill was within normal limits. Sensation is intact distally. Lymphadenopathy: Cervical: No cervical adenopathy. Skin: General: Skin is warm. Capillary Refill: Capillary refill takes less than 2 seconds. Findings: No petechiae or rash. Rash is not purpuric. Neurological: Mental Status: She is alert and oriented to person, place, and time. Sensory: Sensation is intact. Motor: Motor function is intact. Coordination: Coordination is intact. Gait: Gait is intact. Psychiatric: Attention and Perception: Attention normal. Mood and Affect: Mood normal. Speech: Speech normal. Behavior: Behavior normal. Behavior is cooperative. Labs Reviewed - No data to display XR elbow left 3+ views Final Result No acute abnormality in the left elbow MACRO: None Signed by: Shashank Bettencourt 08/20/2024 11:14 AM Dictation workstation: [id number] XR shoulder left 2+ views Final Result No acute abnormality seen. Findings suggestive of calcific tendinitis in the distal infraspinatus MACRO: None Signed by: Shashank Bettencourt 08/20/2024 11:15 AM Dictation workstation: [id number] XR thoracic spine 2 views Final Result No acute abnormality in the thoracic spine MACRO: None Signed by: Shashank Bettencourt 08/20/2024 11:16 AM Dictation workstation: [id number] XR lumbar spine 2-3 views Final Result Mild facet disease and minimal spondylosis lower lumbar spine MACRO: None Signed by: Shashank Bettencourt 08/20/2024 11:15 AM Dictation workstation: [id number] ED Course & MDM Diagnoses as of 08/20/24 1147 Acute on chronic back pain Calcific tendinitis of left shoulder Medical Decision Making Patient was seen and evaluated by myself. Thoracic spine, lumbar spine, left shoulder, and left elbow x-rays show no acute abnormality in the thoracic spine; mild facet disease and minimal spondylosis lower lumbar spine; no acute abnormality seen in left shoulder, but findings suggestive of calcific tendinitis in the distal infraspinatus are noted; and no acute abnormality in the left elbow, I independently reviewed the x-rays and concur with radiology interpretation. Given an injection of Toradol and a Lidoderm patch was placed with improvement in her pain. Exhibits no signs of cauda equina or spinal epidural abscess. I feel that she is experiencing an acute exacerbation of her chronic back pain. I feel that her shoulder pain is related to calcific tendinitis. I explained the treatment for such and importance of follow up. Instructed to apply ice or heat as needed. Given prescriptions for Toradol, Lidoderm patches, and Flexeril. No contraindications to NSAIDs are noted. She requested that I give her a prescription for narcotic pain medications. There is no clinical indication for such. I explained this to the patient at length and she verbalized understanding. She did cry intermittently throughout her visit. States that no one wants to help her. I apologized for her feelings and stated that I would refer her to an senior education specialist and perinatal specialist. Follow up with their doctor in 1 week. Return if worse in any way. Discharged in stable condition with computer instructions. Diagnostic Impression: 1. Acute exacerbation of chronic back pain 2. Calcific tendinitis of the left shoulder 3. IM injection 4. Prescription therapy Your medication list ASK your doctor about these medications Instructions Last Dose Given Next Dose Due acetaminophen 325 mg tablet Commonly known as: TylenoL Take 2 tablets (650 mg) by mouth every 6 hours if needed for mild pain (1 - 3) or fever (temp greater than 38.0 C). cyclobenzaprine 10 mg tablet Commonly known as: Flexeril Take 1 tablet (10 mg) by mouth 3 times a day as needed for muscle spasms for up to 5 days[address] D[address] capsule Commonly known as: Cymbalta zbovvkrzifb-kvjobephf-hehullyi 200-62.5-25 mcg blister with device Commonly known as: TRELEGY-ELLIPTA Inhale 1 puff once daily. gabapentin 800 mg tablet Commonly known as: Neurontin hydrOXYzine pamoate 25 mg capsule Commonly known as: Vistaril lamoTRIgine 150 mg tablet Commonly known as: LaMICtal naproxen 500 mg tablet Commonly known as: Naprosyn Take 1 tablet (500 mg) by mouth every 12 hours. predniSONE 10 mg tablet Commonly known as: Deltasone Take three tablets orally day 1-3, two tablets day 4-6, and one tablet day 7-9 Procedure Procedures [1] Past Medical History: Diagnosis Date Epilepsy Rotator cuff disorder [2] Past Surgical History: Procedure Laterality Date HERNIA REPAIR [3] No family history on file. [4] Social History Tobacco Use Smoking status: Every Day Current packs/day: 0.50 Types: Cigarettes Smokeless tobacco: Never Vaping Use Vaping status: Never Used Substance Use Topics Alcohol use: Not Currently Drug use: Never EVON Sylvester 08/20/24 1150 documented in this encounter [facility] Work Phone: 08-06-2024 Hospital Discharge instructions Kayode Jansen DO - 08/06/2024 4:42 AM EDT Come back for worsening symptoms. Please follow-up with primary doctor. The following attachments cannot be sent through Care Everywhere.Hip Pain (Malaysian)Dyspepsia (Malaysian)documented in this encounter [facility] 08-01-2024 Hospital Discharge instructions Isatu Hairston MD - 08/01/2024 5:14 AM EDT Please return to the emergency department for medical emergencies. Please follow-up with PCP. Please take your medications as prescribed. documented in this encounter [facility] 07-12-2024 Hospital Discharge instructions Lesley Taylor DO - 07/12/2024 4:02 AM EDT I recommend continuing the tylenol, naproxen OR mobic, flexeril, and gabapentin. It is important to follow up with your spine doctor and pain management to get better control of your symptoms. The following attachments cannot be sent through Care Everywhere.Managing acute pain at home (Malaysian)How to Keep Track of Your Pain (Malaysian)documented in this encounter [facility] Work Phone: 06-17-2024 Hospital Discharge instructions Kev Hsu DO - 06/17/2024 5:29 AM EDT Follow-up with your family physician. Despite leaving AGAINST MEDICAL ADVICE, if symptoms worsen or concern arises please return for reevaluation. The following attachments cannot be sent through Care Everywhere.Chest Pain (Malaysian)Chest Pain: Musculoskeletal (Malaysian)Headache (Malaysian)Back Pain (Malaysian)Back: Stretches: Exercises (Malaysian)Low Back Pain: Exercises (Malaysian)documented in this encounter [facility] 06-10-2024 Hospital Discharge instructions Alma Delia Redd RN - 06/10/2024 3:46 PM EDT Continuity of Care Form Patient Name: Db Doan : 1970 Admit date: 06/10/2024 Discharge date: Code Status Order: Prior Advance Directives: Admitting Physician: No admitting provider for patient encounter. PCP: Maria Elena Montalvo MD Discharging Nurse: Discharging Hospital Unit/Room#: 04/05 Discharging Unit Phone Number: Emergency Contact: Extended Emergency Contact Information Primary Emergency Contact: Dolly Benitez Mobile Relation: Child Source Inspector needed? No Past Surgical History: Past Surgical History: Procedure Laterality Date SECTION SECTION 08/09/1999 &12/11/[address] PACHECO HC INJECTION PROCEDURE FOR SACROILIAC JOINT Left 02/02/2019 LEFT SACROILIAC JOINT INJECTION WITHOUT SEDATION (CPT 85509) performed by Khoa Gallagher MD at [facility] OR HERNIA REPAIR HIP SURGERY Left 03/17/2019 LEFT HIP INJECTION WITHOUT SEDATION (CPT 77766,07038) performed by Khoa Gallagher MD at [facility] OR NERVE BLOCK Left 02/02/2019 sacroiliac joint NERVE BLOCK Left 03/17/2019 hip injection TUBAL LIGATION 08/2012 Immunization History: Immunization History Administered Date(s) Administered COVID-19, MODERNA BLUE border, Primary or Immunocompromised, (age 12y+), IM, 100 mcg/0.5mL 05/31/2020, 06/28/2020, 03/06/2021 COVID-19, MODERNA Bivalent, (age 12y+), IM, 50 mcg/0.5 mL 12/30/2021 Influenza, FLUCELVAX, (age 6 mo+), MDCK, Quadv PF, 0.5mL 01/30/2021 TD 5LF, TENIVAC, (age 7y+), IM, 0.5mL 02/28/2024 Active Problems: Patient Active Problem List Diagnosis Code Migraine without aura G43.009 Neck pain M54.2 Displacement of cervical intervertebral disc without myelopathy M50.20 Brachial neuritis or radiculitis M54.12 Cervical radiculopathy M54.12 Lumbar radiculopathy M54.16 Disc displacement, lumbar M51.26 Intractable pain R52 PTSD (post-traumatic stress disorder) F43.10 Sprain or strain of cervical spine [id number] Reactive depression F32.9 Low back pain M54.50 Anxiety attack F41.0 Intervertebral disc disorders with radiculopathy, lumbar region M51.16 Generalized seizure disorder (HCC) G40.309 Annular tear of lumbar disc M51.369 DDD (degenerative disc disease), lumbar M51.369 Chronic pain syndrome G89.4 Lumbar facet arthropathy M47.816 Disorder of sacrum M53.3 Primary osteoarthritis of left hip M16.12 Sacroiliitis M46.1 Pain of right hip M25.551 Lymphadenopathy R59.1 Shoulder pain M25.519 Anxiety F41.9 History of chronic pain Z87.898 Lumbar spondylosis M47.816 Lumbar disc disorder M51.9 Greater trochanteric bursitis of left hip M70.62 Centrilobular emphysema (HCC) J43.2 Contusion of back S20.229A Sciatica M54.30 Other chronic pain G89.29 Diplopia H53.2 Pituitary adenoma (HCC) D35.2 Dizziness R42 Sprain of left ankle S93.402A Isolation/Infection: Isolation No Isolation Patient Infection Status No active infections. Resolved Infection Onset Added Last Indicated Last Indicated By Resolved Resolved By Influenza 02/20/24 02/20/24 02/20/24 Influenza A+B, PCR 03/01/24 history Infection COVID-19 01/18/24 01/18/24 01/21/24 COVID-19 & Influenza Combo 02/04/24 history Infection Nurse Assessment: Last Vital Signs: BP 100/75 Pulse 92 Temp 98.4 F (36.9 C) (Oral) Resp 17 SpO2 95% Last documented pain score (0-10 scale): Pain Level: 10 Last Weight: Wt Readings from Last 1 Encounters: 06/05/24 59 kg (130 lb) Mental Status: {IP PT MENTAL STATUS:} IV Access: {[facility] [place] IV ACCESS:[id number]} Nursing Mobility/ADLs: Walking {CHP DME ADLs:991293493} Transfer {CHP DME ADLs:494228347} Bathing {CHP DME ADLs:415555856} Dressing {CHP DME ADLs:542948741} Toileting {CHP DME ADLs:892211849} Feeding {CHP DME ADLs:570465222} Career Resource Technician {P DME ADLs:574390957} Med Delivery { [facility] MED Delivery:[id number]} Wound Care Documentation and Therapy: Elimination: Continence: Bowel: {YES / NO:} Bladder: {YES / NO:} Urinary Catheter: {Urinary Catheter:530003384} Colostomy/Ileostomy/Ileal Conduit: {YES / NO:} Date of Last BM: Intake/Output Summary (Last 24 hours) at 06/10/2024 1546 Last data filed at 06/10/2024 1447 Gross per 24 hour Intake 1000 ml Output -- Net 1000 ml No intake/output data recorded. Safety Concerns: { YEYO Safety Concerns:491225478} Impairments/Disabilities: {MH YEYO Impairments/Disabilities:35828110 3} Nutrition Therapy: Current Nutrition Therapy: { YEYO Diet List:462405538} Routes of Feeding: {[facility] DME Other Feedings:342365279} Liquids: {Kiln Fireman liquid thickness:67580} Daily Fluid Restriction: {[facility] DME Yes amt example:857738721} Last Modified Barium Swallow with Video (Video Swallowing Test): {Done Not Done Date:} Treatments at the Time of Hospital Discharge: Respiratory Treatments: Oxygen Therapy: {Therapy; copd oxygen:36291} Ventilator: { CC Vent List:220728444} Rehab Therapies: {THERAPEUTIC INTERVENTION:1827300249} Weight Bearing Status/Restrictions: {[facility] Weight Bearin} Other Medical Equipment (for information only, NOT a DME order): {EQUIPMENT:592261643} Other Treatments: Patient's personal belongings (please select all that are sent with patient): {[facility] DME Belongings:148560427} RN SIGNATURE: {Esignature:982563230} CASE MANAGEMENT/SOCIAL WORK SECTION Inpatient Status Date: Readmission Risk Assessment Score: [facility] RISK OF UNPLANNED READMISSION 2.0 0 Total Score Discharging to Facility/ Agency Name: Address: Phone: Fax: Dialysis Facility (if applicable) Name: Address: Dialysis Schedule: Phone: Fax: Osd Clerk/Analysis Director signature: {Esignature:342806953} PHYSICIAN SECTION Prognosis: {Prognosis:2238611152} Condition at Discharge: { Patient Condition:485712706} Rehab Potential (if transferring to Rehab): {Prognosis:3433183349} Recommended Labs or Other Treatments After Discharge: Physician Certification: I certify the above information and transfer of Db Doan is necessary for the continuing treatment of the diagnosis listed and that she requires {Admit to Appropriate Level of Care:98028} for {GREATER/LESS:229988608} 30 days. Update Admission H&P: {P DME Changes in HandP:880424259} PHYSICIAN SIGNATURE: {Esignature:278479529} The following attachments cannot be sent through Care Everywhere.Anxiety Disorders: General Info (Malaysian)Chest Pain: Musculoskeletal (Malaysian)documented in this encounter [facility] 06-03-2024 History of Present illness Narrative Images from the original note were not included. SECTION OF SKULL BASE SURGERY MINIMALLY INVASIVE CRANIAL BASE & PITUITARY SURGERY PROGRAM [facility] [place], [facility] TELEMEDICINE NEW VISIT This is a virtual visit. It required patient-provider interaction for the medical decision making as documented below. Db Doan has consented for this telemedicine encounter. I have communicated my name and active licensure. The patient's identity and physical location were verified at the time of this visit. Either the patient or their legal advertising sales representative has been informed of the risks and benefits of -- and alternatives to -- treatment through a remote evaluation and consents to proceed with the evaluation remotely. CC: MD Tenisha Urias MD Assessment: In summary, Db Doan is a very pleasant 54 year old female who self-referred for a known pituitary macroadenoma. In retrospect, it may have been present although likely smaller in 2015. I believe this is most likely a nonfunctional pituitary tumor although the possibility that this could represent another type of tumor was also discussed.The natural history of pituitary tumors was discussed in detail. Treatment options were discussed in detail including observation, radiation treatment/radiosurgery, or surgery. In this case, I recommend complete endocrinological work-up. If it is nonfunctional, I would advocate a conservative approach given that it is not touching the optic chiasm and that I do not believe it to be causing any of her symptoms. If it were to be functional, then surgical intervention could be reconsidered. Plan: - Complete endocrinological evaluation. She is scheduled to see Dr. Palacios. Should it be confirmed to be nonfunctional, then Dr. Palacios will follow primarily. Should it be functional or demonstrate growth in the future, I would be happy to revisit surgical interventions. I spent a total of 45 minutes on the date of the service which included preparing to see the patient, [id number]-st-afgb patient care, completing clinical documentation, obtaining and/or reviewing separately obtained history, counseling and educating the patient/family/caregiver, and communicating with other HCPs (not separately reported). Cece Stewart MD Chief Complaint: Pituitary Macroadenoma HPI Unaccompanied - Per care everywhere records review patient has a complex past medical hx of frequent ER visits to multiple health care facilities since 2022 for low back pain , falls , ankle sprain, headache & chronic pain. - Significant med hx of Generalized Tonic Clonic Seizures - Seen on 11/19/2014 at [facility] Neurology for GTC seizures medication management . She was lost to follow up. Stated that her PCP is managing. - No attributable vision changes (temporal field) PMHx: PAST MEDICAL HISTORY Diagnosis Date Anxiety attack Brachial neuritis or radiculitis NOS Centrilobular emphysema (HCC) 03/23/2022 Cervical radiculopathy Cervicalgia Disc displacement, lumbar Displacement of cervical intervertebral disc without myelopathy Generalized convulsive epilepsy without intractable epilepsy (HCC) Intractable pain Lumbar radiculopathy Migraine without aura Other chronic pain PTSD (post-traumatic stress disorder) Reactive depression Sprain or strain of cervical spine PSHx PAST SURGICAL HISTORY Procedure Laterality Date HERNIA REPAIR HX SH: Social History Tobacco Use Smoking status: Every Day Current packs/day: 0.50 Types: Cigarettes Vaping Use Vaping status: Never Used Substance Use Topics Alcohol use: Never Drug use: Never Medications Current Outpatient Medications Medication Sig methocarbamol (ROBAXIN) 750 mg tablet Take 750 mg by mouth four times daily. oxyCODONE IR (ROXICODONE) 5 mg immediate release tablet Take 5 mg by mouth every 6 hours as needed. oibyzxatmrg-nmbmvlxuk-bnypybnu (TRELEGY ELLIPTA) 200-62.5-25 mcg inhalation powder Inhale 1 Puff as instructed once daily. lamoTRIgine (LAMICTAL) 150 mg tablet 150 mg. oxyCODONE-acetaminophen (PERCOCET) 5-325 mg tablet Take 1 tablet by mouth every 6 hours as needed. ondansetron (ZOFRAN) 4 mg tablet Take 4 mg by mouth every 8 hours as needed for nausea/vomiting. omeprazole (PRILOSEC) 40 mg capsule Take 1 capsule by mouth once daily. naproxen (NAPROSYN) 500 mg tablet Take 500 mg by mouth. lidocaine (LIDODERM) 5 % APPLY 1 PATCH TOPICALLY TO THE SKIN DAILY. MAY WEAR UP TO 12 HOURS DULoxetine (CYMBALTA) 60 mg capsule Take 1 capsule by mouth two times a day. TRELEGY ELLIPTA 200-62.5-25 mcg inhalation powder inhale 1 puff once daily lamoTRIgine (LAMICTAL) 100 mg tablet Take 1 tablet by mouth twice daily. No current facility-administered medications for this visit. Allergies ALLERGIES No Known Allergies Exam: Const Well appearing, NAD Neuro Awake, alert, oriented x 3 Fluent speech Face symmetric No obvious neurological deficit Data: 03/08/2024 MRI Brain - personally reviewed, left sided sellar mass. No abutment of optic chiasm or obvious cavernous sinus invasion. When compared to 11/06/2014, the mass is likely present (most visible on sagittal) albeit likely slightly smaller with the understanding that the previous study was not directly comparable as it was not thin cut through the pituitary region Impression 1. No evidence of acute intracranial abnormality. 2. 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 This extends into the suprasellar cistern but there is no evidence of compression of the optic chiasm. Clinical correlation is suggested. 3. Otherwise, unremarkable MRI of the orbits FINDINGS: MRI BRAIN: INTRACRANIAL STRUCTURES/VENTRICLES: Many of the images are degraded by motion artifact. There is no acute infarct. A few tiny stable foci of T2/FLAIR hyperintensity is seen in the bifrontal deep white matter, a that may be related to minimal chronic white matter ischemic disease. These are of doubtful clinical significance. No mass effect or midline shift. No evidence of an acute intracranial hemorrhage. The ventricles and sulci are normal in size and configuration. The sellar/suprasellar regions show no acute process. There is an isointense mass in the pituitary that shows slightly heterogeneous enhancement with contrast measuring 1.5 x 1.2 x 0.9 cm. This extends into the suprasellar cistern in the midline. The infundibulum is in the midline. The superior margin of the mass extends to within about 2 mm of the optic chiasm but there is no evidence of compression of the chiasm. The lesion most likely represents appear to tree adenoma. The normal signal voids within the major intracranial vessels appear maintained. Otherwise, no abnormal focus of enhancement is seen within the brain. SINUSES: The visualized paranasal sinuses and mastoid air cells are well aerated. BONES/SOFT TISSUES: The bone marrow signal intensity appears normal. The soft tissues demonstrate no acute abnormality. MRI ORBITS: The visualized portion of the orbits demonstrate no acute abnormality. The ocular globes, optic nerves and extraocular muscles appear symmetric and within normal limits. The bilateral lacrimal glands are symmetric and enhance normally. There is no evidence of an intra orbital or retro-orbital mass or enhancing lesion. The optic chiasm appears within normal limits with no evidence of compression by the pituitary mass described above. documented in this encounter [facility] 06-03-2024 Note HNO ID: [id number] Author: CECE STEWART MD Service: ? Author Type: Physician Type: Progress Notes Filed: 06/23/2024 08:01 Note Text: SECTION OF SKULL BASE SURGERY MINIMALLY INVASIVE CRANIAL BASE AND PITUITARY SURGERY PROGRAM [facility] [place], [facility] TELEMEDICINE NEW VISIT This is a virtual visit. It required patient-provider interaction for the medical decision making as documented below. Db Doan has consented for this telemedicine encounter. I have communicated my name and active licensure. The patient's identity and physical location were verified at the time of this visit. Either the patient or their legal advertising sales representative has been informed of the risks and benefits of -- and alternatives to -- treatment through a remote evaluation and consents to proceed with the evaluation remotely. CC: MD Tenisha Urias MD Assessment: In summary, Db Doan is a very pleasant 54 year old female who self-referred for a known pituitary macroadenoma. In retrospect, it may have been present although likely smaller in 2015. I believe this is most likely a nonfunctional pituitary tumor although the possibility that this could represent another type of tumor was also discussed.The natural history of pituitary tumors was discussed in detail. Treatment options were discussed in detail including observation, radiation treatment/radiosurgery, or surgery. In this case, I recommend complete endocrinological work-up. If it is nonfunctional, I would advocate a conservative approach given that it is not touching the optic chiasm and that I do not believe it to be causing any of her symptoms. If it were to be functional, then surgical intervention could be reconsidered. Plan: - Complete endocrinological evaluation. She is scheduled to see Dr. Palacios. Should it be confirmed to be nonfunctional, then Dr. Palacios will follow primarily. Should it be functional or demonstrate growth in the future, I would be happy to revisit surgical interventions. I spent a total of 45 minutes on the date of the service which included preparing to see the patient, [id number]-[id number]-ezpm patient care, completing clinical documentation, obtaining and/or reviewing separately obtained history, counseling and educating the patient/family/caregiver, and communicating with other HCPs (not separately reported). Cece Setwart MD Chief Complaint: Pituitary Macroadenoma HPI Unaccompanied - Per care everywhere records review patient has a complex past medical hx of frequent ER visits to multiple health care facilities since 2022 for low back pain , falls , ankle sprain, headache AND chronic pain. - Significant med hx of Generalized Tonic Clonic Seizures - Seen on 11/19/2014 at [facility] for GTC seizures medication management . She was lost to follow up. Stated that her PCP is managing. - No attributable vision changes (temporal field) PMHx: PAST MEDICAL HISTORY Diagnosis Date Anxiety attack Brachial neuritis or radiculitis NOS Centrilobular emphysema (HCC) 03/23/2022 Cervical radiculopathy Cervicalgia Disc displacement, lumbar Displacement of cervical intervertebral disc without myelopathy Generalized convulsive epilepsy without intractable epilepsy (HCC) Intractable pain Lumbar radiculopathy Migraine without aura Other chronic pain PTSD (post-traumatic stress disorder) Reactive depression Sprain or strain of cervical spine PSHx PAST SURGICAL HISTORY Procedure Laterality Date HERNIA REPAIR HX SH: Social History Tobacco Use Smoking status: Every Day Current packs/day: 0.50 Types: Cigarettes Vaping Use Vaping status: Never Used Substance Use Topics Alcohol use: Never Drug use: Never Medications Current Outpatient Medications Medication Sig methocarbamol (ROBAXIN) 750 mg tablet Take 750 mg by mouth four times daily. oxyCODONE IR (ROXICODONE) 5 mg immediate release tablet Take 5 mg by mouth every 6 hours as needed. zkuflxapdly-qqwsmforp-vubsckgc (TRELEGY ELLIPTA) 200-62.5-25 mcg inhalation powder Inhale 1 Puff as instructed once daily. lamoTRIgine (LAMICTAL) 150 mg tablet 150 mg. oxyCODONE-acetaminophen (PERCOCET) 5-325 mg tablet Take 1 tablet by mouth every 6 hours as needed. ondansetron (ZOFRAN) 4 mg tablet Take 4 mg by mouth every 8 hours as needed for nausea/vomiting. omeprazole (PRILOSEC) 40 mg capsule Take 1 capsule by mouth once daily. naproxen (NAPROSYN) 500 mg tablet Take 500 mg by mouth. lidocaine (LIDODERM) 5 % APPLY 1 PATCH TOPICALLY TO THE SKIN DAILY. MAY WEAR UP TO 12 HOURS DULoxetine (CYMBALTA) 60 mg capsule Take 1 capsule by mouth two times a day. TRELEGY ELLIPTA 200-62.5-25 mcg inhalation powder inhale 1 puff once daily lamoTRIgine (LAMICTAL) 100 mg tablet Take 1 tablet by mouth twice daily. No current facility-admini (more content not included)... [facility] 05-25-2024 Hospital Discharge instructions Arlyn Pelayo MD - 05/25/2024 1:49 PM EDT Pain Management, Chronic You have a painful condition that has required frequent use of narcotic-type pain medicine. We would like to see that you receive the best possible care for your problem. To achieve this, you must have a personal physician who can supervise a treatment plan for you. You may locate a personal physician on your own or contact one of the doctors whose name has been given to you. If your physician determines that you need to visit the Emergency Department for pain control, that doctor should provide you with a pain contract. This is a letter from your doctor which describes what pain medicine you may receive, how much and how often. You sign it agreeing to the terms of the treatment plan. Bring this with each time you come to this facility. It will help the Emergency Physician provide the proper treatment for you with minimal delay. Please Note: In the future you may not be able to receive narcotic pain medicine from this facility without a pain contract or telephone approval from your personal physician. The following attachments cannot be sent through Care Everywhere.Chronic Pain (Malaysian)Pain Diary: General Info (Malaysian)Sympathetic Nerve Block: General Info (Malaysian)documented in this encounter [facility] 05-20-2024 Hospital Discharge instructions Don Queen MD - 05/20/2024 3:27 PM EDT Return if any new or worsening symptoms. Follow up on pain management. The following attachments cannot be sent through Care Everywhere.Chest Pain (Malaysian)documented in this encounter [facility] 05-11-2024 Telephone encounter Note Called the patient to make her aware that the VV appt with Dr. Stewart on 06/03 would have to be in-person or rescheduled for the next available VV. No ans/left msg to call the office back. JOSE Jones [facility] 05-11-2024 Miscellaneous Notes Called the patient to make her aware that the VV appt with Dr. Stewart on 06/03 would have to be in-person or rescheduled for the next available VV. No ans/left msg to call the office back. JOSE Jones documented in this encounter [facility] 04-30-2024 Physician Emergency department Note Images from the original note were not included. HPI Chief Complaint Patient presents with Back Pain Shoulder Pain Patient presents to the emergency department secondary to chronic pain issues. Patient has chronic low back pain and recently injured her left shoulder. She was told by her orthopedic physician that she had a rotator cuff injury. She is scheduled for physical therapy but is unable to control her pain with perw-abb-gwtdnor medications. She has no acute neurologic symptoms. She has chronic intermittent paresthesia of the right leg. No loss of bowel or bladder control. No chest pain or shortness of breath. No fever or chills. No other complaints at this time. She states that she has attempted to get into pain management physicians and has not been able to be helped. Mary Coma Scale Score: 15 Patient History Past Medical History: Diagnosis Date Epilepsy Rotator cuff disorder Past Surgical History: Procedure Laterality Date HERNIA REPAIR No family history on file. Social History Tobacco Use Smoking status: Every Day Current packs/day: 0.50 Types: Cigarettes Smokeless tobacco: Never Vaping Use Vaping status: Never Used Substance Use Topics Alcohol use: Not Currently Drug use: Never Physical Exam ED Triage Vitals [04/30/24 0406] Temperature Heart Rate Respirations BP 36.6 C (97.9 F) 94 18 121/86 Pulse Ox Temp Source Heart Rate Source Patient Position 98 % Temporal -- -- BP Location FiO2 (%) -- -- Physical Exam Vitals and nursing note reviewed. Constitutional: General: She is not in acute distress. Appearance: Normal appearance. She is well-developed. HENT: Head: Normocephalic and atraumatic. Eyes: Conjunctiva/sclera: Conjunctivae normal. Cardiovascular: Rate and Rhythm: Normal rate and regular rhythm. Heart sounds: No murmur heard. Pulmonary: Effort: Pulmonary effort is normal. No respiratory distress. Breath sounds: Normal breath sounds. Abdominal: Palpations: Abdomen is soft. Tenderness: There is no abdominal tenderness. There is no guarding or rebound. Musculoskeletal: General: No swelling. Cervical back: Neck supple. Comments: Right low lumbar tenderness to palpation. No midline tenderness or step-offs. Pain with range of motion of the left shoulder. Skin: General: Skin is warm and dry. Capillary Refill: Capillary refill takes less than 2 seconds. Neurological: General: No focal deficit present. Mental Status: She is alert and oriented to person, place, and time. Cranial Nerves: No cranial nerve deficit. Sensory: No sensory deficit. Motor: No weakness. Psychiatric: Mood and Affect: Mood normal. Labs Reviewed - No data to display Pain Management Panel No data to display No orders to display ED Course & MDM Diagnoses as of 04/30/24 0442 Other chronic pain Medical Decision Making Patient at this time has chronic pain syndrome. Patient does not require acute imaging. She is already in the care of her orthopedic surgeon for her shoulder and is planning on seeing a neurosurgeon for her back. She is given referral to pain management. She is given IM Toradol and a prescription for Flexeril. At this time narcotics are not clinically indicated. Patient is stable for discharge. She is given a light duty note for work for 1 week. Procedure Procedures Tonya Tran MD 04/30/24 0444 [facility] Work Phone: 04-30-2024 Emergency department Note Images from the original note were not included. HPI Chief Complaint Patient presents with Back Pain Shoulder Pain Patient presents to the emergency department secondary to chronic pain issues. Patient has chronic low back pain and recently injured her left shoulder. She was told by her orthopedic physician that she had a rotator cuff injury. She is scheduled for physical therapy but is unable to control her pain with yeme-lgx-ubafnan medications. She has no acute neurologic symptoms. She has chronic intermittent paresthesia of the right leg. No loss of bowel or bladder control. No chest pain or shortness of breath. No fever or chills. No other complaints at this time. She states that she has attempted to get into pain management physicians and has not been able to be helped. Cassandra Coma Scale Score: 15 Patient History Past Medical History: Diagnosis Date Epilepsy Rotator cuff disorder Past Surgical History: Procedure Laterality Date HERNIA REPAIR No family history on file. Social History Tobacco Use Smoking status: Every Day Current packs/day: 0.50 Types: Cigarettes Smokeless tobacco: Never Vaping Use Vaping status: Never Used Substance Use Topics Alcohol use: Not Currently Drug use: Never Physical Exam ED Triage Vitals [04/30/24 0406] Temperature Heart Rate Respirations BP 36.6 C (97.9 F) 94 18 121/86 Pulse Ox Temp Source Heart Rate Source Patient Position 98 % Temporal -- -- BP Location FiO2 (%) -- -- Physical Exam Vitals and nursing note reviewed. Constitutional: General: She is not in acute distress. Appearance: Normal appearance. She is well-developed. HENT: Head: Normocephalic and atraumatic. Eyes: Conjunctiva/sclera: Conjunctivae normal. Cardiovascular: Rate and Rhythm: Normal rate and regular rhythm. Heart sounds: No murmur heard. Pulmonary: Effort: Pulmonary effort is normal. No respiratory distress. Breath sounds: Normal breath sounds. Abdominal: Palpations: Abdomen is soft. Tenderness: There is no abdominal tenderness. There is no guarding or rebound. Musculoskeletal: General: No swelling. Cervical back: Neck supple. Comments: Right low lumbar tenderness to palpation. No midline tenderness or step-offs. Pain with range of motion of the left shoulder. Skin: General: Skin is warm and dry. Capillary Refill: Capillary refill takes less than 2 seconds. Neurological: General: No focal deficit present. Mental Status: She is alert and oriented to person, place, and time. Cranial Nerves: No cranial nerve deficit. Sensory: No sensory deficit. Motor: No weakness. Psychiatric: Mood and Affect: Mood normal. Labs Reviewed - No data to display Pain Management Panel No data to display No orders to display ED Course & MDM Diagnoses as of 04/30/24 0442 Other chronic pain Medical Decision Making Patient at this time has chronic pain syndrome. Patient does not require acute imaging. She is already in the care of her orthopedic surgeon for her shoulder and is planning on seeing a neurosurgeon for her back. She is given referral to pain management. She is given IM Toradol and a prescription for Flexeril. At this time narcotics are not clinically indicated. Patient is stable for discharge. She is given a light duty note for work for 1 week. Procedure Procedures Tonya Tran MD 04/30/24443 Pt presenting to ED with 10/10 back and shoulder pain. Pt tore L rotator cuff last week and saw her ortho doc. Ortho doc is going to do physical therapy with pt but pt remarks that yesterday she exerted herself at work and made the issue worse. Now her chronic back pain has flared and her shoulder pain is worse. documented in this encounter [facility] Work Phone: 04-30-2024 Emergency department Triage note Pt presenting to ED with 10/10 back and shoulder pain. Pt tore L rotator cuff last week and saw her ortho doc. Ortho doc is going to do physical therapy with pt but pt remarks that yesterday she exerted herself at work and made the issue worse. Now her chronic back pain has flared and her shoulder pain is worse. [facility] Work Phone: 04-20-2024 Hospital Discharge instructions Lea Alfonso APRN - CNP - 04/20/2024 3:38 PM EST Continue with muscle relaxer Use lidoderm patch as needed Keep appt with Dr Davis this week Use zofran as needed for nausea documented in this encounter [facility] 04-11-2024 Hospital Discharge instructions Patient Education 04/11/2024 10:32:52 Shoulder Pain, Uncertain Cause Shoulder Pain with Uncertain Cause Shoulder pain can have many causes. Pain often comes from the structures that surround the shoulder joint. These are the joint capsule, ligaments, tendons, muscles, and bursa. Pain can also come from cartilage in the joint. Cartilage can become worn out or injured. It s important to know what s causing your pain so the healthcare provider can use the correct treatment. But sometimes it s difficult to find the exact cause of shoulder pain. You may need to see a specialist (orthopedist). You may also need special tests such as a CT scan or MRI. The provider may need to use special tools to look inside the joint (arthroscopy). Shoulder pain can be treated with a sling or a device that keeps your shoulder from moving. You can take an anti-inflammatory medicine such as ibuprofen to ease pain. You may need to do special shoulder exercises. Follow up with a specialist if the pain is severe or doesn t go away after a few weeks. Home care Follow these tips when caring for yourself at home: If a sling was given to you, leave it in place for the time advised by your healthcare provider. If you aren t sure how long to wear it, ask for advice. If the sling becomes loose, adjust it so that your forearm is level with the ground. Your shoulder should feel well supported. Put an ice pack on the injured area for 20 minutes every 1 to 2 hours the first day. You can make your own ice pack by putting ice cubes in a plastic bag. Wrap the bag in a thin towel. Continue with ice packs 3 to 4 times a day for the next 2 days. Then use the pack as needed to ease pain and swelling. You may use acetaminophen or ibuprofen to control pain, unless another pain medicine was prescribed. If you have chronic liver or kidney disease, talk with your healthcare provider before using these medicines. Also talk with your provider if you ve ever had a stomach ulcer or GI bleeding. Shoulder pain may seem worse at night, when there is less to distract you from the pain. If you sleep on your side, try to keep weight off your painful shoulder. Propping pillows behind you may stop you from rolling over onto that shoulder during sleep. Shoulder and elbow joints can become stiff if left in a sling for too long. You should start range of motion exercises about 7 to 10 days after the injury. Talk with your provider to find out what type of exercises to do and how soon to start. You can take the sling off to shower or bathe. Follow-up care Follow up with your healthcare provider if you don t start to get better in the next 5 days. When to seek medical advice Call your healthcare provider right away if any of these occur: Pain or swelling gets worse or continues for more than a few days Your hand or fingers become cold, blue, numb, or tingly Large amount of bruising on your shoulder or upper arm Difficulty moving your hand or fingers Weakness in your hand or fingers Your shoulder becomes stiff It feels like your shoulder is popping out You are less able to do your daily activities [id number] [employer]. [address] [place] [address]. All rights reserved. This information is not intended as a substitute for professional medical care. Always follow your healthcare professional's instructions. Follow Up Care 04/11/2024 06:33:36 With:VALARIE MARTIN DO Address: [address] [facility], [place] [address]- [phone] When:2-4 days With:MARIA ELENA MONTALVO MD Address: [address] [place] [address]- [phone] When:2-[address] [facility] 04-11-2024 Emergency department Discharge summary Discharge Instructions Thank you for allowing [facility] to assist you with your healthcare needs. The following is important discharge information regarding your hospital visit. What to Do Next Instructions from Your Care Team No qualifying data available. Post Acute Orders No qualifying data available. You Need to Schedule the Following Appointments Follow Up with VALARIE MARTIN DO When:Within 2-4 days Where:[address] [facility], [place] [address]- [phone] Follow Up with MARIA ELENA MONTALVO MD When:Within 2-4 days Where:[address] [place] [address]- [phone] Allergies No Known Medication Allergies Medications Please ask your primary doctor or pharmacist before taking any other medication not listed, including over the counter drugs, herbal medications, vitamins and or supplements as they may interact with your home medications. What How Much When Instructions Last Dose New methylPREDNISolone (Medrol Dosepak 4 mg oral tablet) 1 Packet(s) by mouth Once a day Duration: 6 Days as directed on package labeling Printed Prescription Unchanged lamoTRIgine (lamoTRIgine 150 mg oral tablet) 1 tab(s) by mouth Two (2) times a day Please take this list to your next doctor s visit. Bring all medications you take, including over the counter medications, herbals and other supplements with you to your doctor s visit. Patients and families are reminded to discard old lists and to update any records with all medication providers or retail pharmacies. Education Materials Shoulder Pain with Uncertain Cause Shoulder pain can have many causes. Pain often comes from the structures that surround the shoulder joint. These are the joint capsule, ligaments, tendons, muscles, and bursa. Pain can also come from cartilage in the joint. Cartilage can become worn out or injured. It s important to know what s causing your pain so the healthcare provider can use the correct treatment. But sometimes it s difficult to find the exact cause of shoulder pain. You may need to see a specialist (orthopedist). You may also need special tests such as a CT scan or MRI. The provider may need to use special tools to look inside the joint (arthroscopy). Shoulder pain can be treated with a sling or a device that keeps your shoulder from moving. You can take an anti-inflammatory medicine such as ibuprofen to ease pain. You may need to do special shoulder exercises. Follow up with a specialist if the pain is severe or doesn t go away after a few weeks. Home care Follow these tips when caring for yourself at home: If a sling was given to you, leave it in place for the time advised by your healthcare provider. If you aren t sure how long to wear it, ask for advice. If the sling becomes loose, adjust it so that your forearm is level with the ground. Your shoulder should feel well supported. Put an ice pack on the injured area for 20 minutes every 1 to 2 hours the first day. You can make your own ice pack by putting ice cubes in a plastic bag. Wrap the bag in a thin towel. Continue with ice packs 3 to 4 times a day for the next 2 days. Then use the pack as needed to ease pain and swelling. You may use acetaminophen or ibuprofen to control pain, unless another pain medicine was prescribed. If you have chronic liver or kidney disease, talk with your healthcare provider before using these medicines. Also talk with your provider if you ve ever had a stomach ulcer or GI bleeding. Shoulder pain may seem worse at night, when there is less to distract you from the pain. If you sleep on your side, try to keep weight off your painful shoulder. Propping pillows behind you may stop you from rolling over onto that shoulder during sleep. Shoulder and elbow joints can become stiff if left in a sling for too long. You should start range of motion exercises about 7 to 10 days after the injury. Talk with your provider to find out what type of exercises to do and how soon to start. You can take the sling off to shower or bathe. Follow-up care Follow up with your healthcare provider if you don t start to get better in the next 5 days. When to seek medical advice Call your healthcare provider right away if any of these occur: Pain or swelling gets worse or continues for more than a few days Your hand or fingers become cold, blue, numb, or tingly Large amount of bruising on your shoulder or upper arm Difficulty moving your hand or fingers Weakness in your hand or fingers Your shoulder becomes stiff It feels like your shoulder is popping out You are less able to do your daily activities [id number] [employer]. [address] [place] [address], [place] [address]. All rights reserved. This information is not intended as a substitute for professional medical care. Always follow your healthcare professional's instructions. Additional Information VACCINATE! IT SAVES LIVES! Members of the community who have not yet received the COVID-19 vaccine and would like to receive it can visit one of [facility] vaccine clinics. There are many vaccine clinic locations within the [facility]. For locations and available times, please visit www.gettheshot.coronavirus.arizona.g ov/. It is important to note that some COVID mobile vaccine clinics are held outdoors and may be canceled in rainy or stormy conditions. To learn more about pediatric vaccinations (ages 5-11), we invite you to visit the [facility] webpage. https://www.Appingtons.org/pa ges/6465-Rrbwe-Pitnonszxyq-Freque dpin-Cmolg-Kudqpglgo.html To learn more about the COVID-19 vaccine, we invite you to visit the CDC website for a list of frequently asked questions. https://www.cdc.gov/coronavirus/2 019-ncov/vaccines/faq.html [facility] [employer] Patient Portal Access Instructions: Stay connected with your healthcare team and access your personal medical information anytime with the [facility] Patient Portal. If you would like a full copy of your medical records please contact the [facility] Medical Records Department Saturday through Saturday between 8a.m. and 4:30p.m. Please follow the directions below to access the portal: 1.Access the email account you provided upon registration to the hospital.2.Look for an invitation email from [facility].3.Open the email and access the invitation link: Accept Invitation to [facility].Fill in the required whitfield to create your account. Sign into www.Eptica with your username and password that you created in the above steps to stay up to date. You can then view a summary of results, a summary of your visits, and the ability to download your summaries to your computer or send the information securely to a physician. Remember that your healthcare information is confidential, so carefully consider who you will allow to register on the [facility] Patient Portal for access to your information. You can also access the [facility] Patient Portal on the [employer] surinder. Simply click on Health Records under Health Data and then click on the [employer] logo. HOW TO SAFELY DISPOSE OF PRESCRIPTION MEDICATIONS Please use one of the following methods to safely dispose of your unused medications. 1.Use a drug disposal kit: the drug disposal pouch allows you to safely discard your old and unused drugs. Ask your nurse to give you one when you are discharged.2.Visit a local take-back location: Many local pharmacies and police departments have programs that collect old and unwanted prescription drugs. Call your local pharmacy or go to http://[employer].toucanBox/0A3To0p to find one close to you.3.Make use of household items: Use cat litter or old coffee grounds to dispose medications if other options are not available. Mix your drugs with these household products, seal them in an airtight container and throw it into the garbage. Call [facility]: [phone] to be sure your drugs can be disposed of in this way. Some medicines may require a different approach.4.Never flush your medications down the toilet. IF YOU HAVE BEEN PRESCRIBED AN OPIOIDS FOR PAIN If you have been prescribed an opioid (such as hydrocodone, oxycodone or morphine), it is critical to understand the possible side effects and risks of opioid pain medications. Even when taken as directed, opioids can have several side effects including: Tolerance, meaning you might need to take more of a medication for the same pain relief. Nausea, vomiting and/or constipation. Sleepiness, dizziness, dry mouth, confusion, depression or itching. Physical dependence, meaning you have withdrawal symptoms when a medication is stopped ? this can develop within a few days. KNOW YOUR RESPONSIBILITIES It is important to know exactly how much and how often to take the opioid pain medications you are prescribed. Never take opioids in higher amounts or more often than prescribed. Do not combine opioids with alcohol or other drugs that cause drowsiness, such as benzodiazepines, also known as benzos, including diazepam and alprazolam, muscle relaxants or sleep aids. Never sell or share prescription opioids. This is illegal. Store opioids in a secure place and out of reach of others (including children, family, friends and visitors). The last page(s) of this document has been signed and retained as a CHART COPY Signatures Patient Education Materials Shoulder Pain, Uncertain Cause Medication Leaflets My discharge plan and instructions have been reviewed and explained to me and I,JEMFLOR DB L understand my current condition and have read and understand these discharge instructions. I have received a written copy of the plan/instructions. If I have questions, I am aware that I should contact my doctor. 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 04-11-2024 Note Exam Date Time Procedure Performing Provider Status 04/11/24 9:18 AM XR Shoulder Minimum 2 Views Left BELLO CHAVARRIA DO; Auth (Verified) [id number] ORIGINAL EXAMINATION: TWO XRAY VIEWS OF THE LEFT SHOULDER04/11/2024 9:19 am COMPARISON: 03/12/2024 HISTORY: ORDERING SYSTEM PROVIDED HISTORY: Reason for Exam: pain FINDINGS: There is no glenohumeral fracture or dislocation. There is no acromioclavicular joint widening. There is no significant AC joint spurring. The coracoclavicular distance is maintained. Mild calcific tendinitis. The included thoracic structures are normal. IMPRESSION: No acute fracture or dislocation. Interpreted by: Bello Foley DO Preliminary Report By: Bello Foley DO Electronically signed By Bello Foley DO Dictated Date: 04/11/2024 9:23:46 AM Prelim Date: 04/11/2024 9:26:10 AM Sign Date: 04/11/2024 9:26:10 AM Ordering Provider[id number]* Exam Date Time Procedure Performing Provider Status 04/11/24 9:14 AM XR Sacrum/Coccyx Minimum 2 Views BELLO CHAVARRIA DO; Auth (Verified) [id number] ORIGINAL EXAMINATION: THREE XRAY VIEWS OF THE SACRUM/COCCYX04/11/2024 9:20 am COMPARISON: None HISTORY: ORDERING SYSTEM PROVIDED HISTORY: Reason for Exam: pain FINDINGS: There is minor degenerative change of the sacroiliac joints. No evidence of sacral fracture. There are pelvic phleboliths. Mild stool over the rectum. IMPRESSION: No acute fracture or dislocation. Interpreted by: Bello Foley DO Preliminary Report By: Bello Foley DO Electronically signed By Bello Foley DO Dictated Date: 04/11/2024 9:29:06 AM Prelim Date: 04/11/2024 9:30:58 AM Sign Date: 04/11/2024 9:30:58 AM Ordering Provider: [facility]02-08-2025 Note* Exam Date Time Procedure Performing Provider Status 04/11/24 9:13 AM XR Hip Right w/Pelvis 4 Views BELLO FOLEY DO; Auth (Verified) [id number] ORIGINAL EXAMINATION: 2 XRAY VIEWS OF THE RIGHT HIP, 2 VIEWS OF THE PELVIS04/11/2024 9:19 am COMPARISON: None HISTORY: ORDERING SYSTEM PROVIDED HISTORY: Reason for Exam: pain FINDINGS: The pelvic ring is intact. Pubic symphysis is maintained. No hip fracture or dislocation is evident. IMPRESSION: No acute fracture or dislocation. Interpreted by: Bello Foley DO Preliminary Report By: Bello Foley DO Electronically signed By Bello Foley DO Dictated Date: 04/11/2024 9:27:39 AM Prelim Date: 04/11/2024 9:28:58 AM Sign Date: 04/11/2024 9:28:58 AM Ordering Provider: [facility]01-27-2025 Telephone encounter Note* Telephone Encounter - Kyle Bagley - 03/30/2024 1:56 PM EST Called Patient 2 times Patient ended call called for the 3rd time was sent to (Left With Apptdetails , Mailed Patient Appointment Reminder & Sent [facility] Message) Kyle Bagley March 30, 2024 1:57 PM [facility]01-27-2025 Miscellaneous Notes* Telephone Encounter - Kyle Bagley - 03/30/2024 1:56 PM EST Called Patient 2 times Patient ended call called for the 3rd time was sent to VM (Left VM With Apptdetails , Mailed Patient Appointment Reminder & Sent [employer] Message) Kyle Bagley March 30, 2024 1:57 PM * Addendum Note - Ra Abbott APRN.CNP - 03/30/2024 12:22 PM ESTAddended by: RA ABBOTT on: 03/30/2024 12:22 PM Modules accepted: Orders * Telephone Encounter - Ra Abbott APRN.CNP - 03/30/2024 12:17 PM EST Time Frame: Next available Orders: Blood work (must be drawn @ 8AM any day prior to appt) Provider: Dr. Melgoza or Dr. Stewart & Dr. Tenisha Palacios Referring: Self Please instruct patient to hand carry/ upload images prior to appt Dx: Pituitary lesion Patient: Db Doan Address: Db Doan [id number] [place] [address] [address] [place] [address] Per Triage: Db Doan is a 53 year old female that requests evaluation of previously diagnosed pituitary lesion. Patient expectations: New Consult Tumor Specifics: Location: pituitary Previous Evaluations: MRI w/wo contrast (03/08/24): @ [facility] 1. No evidence of acute intracranial abnormality. 2. 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 This extends into the suprasellar cistern but there is no evidence of compression of the optic chiasm. Clinical correlation is suggested. 3. Otherwise, unremarkable MRI of the orbits. Previous Treatments: N/A Impression: As above. Ra Abbott APRN.CNP March 30, 2024 * Telephone Encounter - Foina Blum - 03/30/2024 11:51 AM EST Records requested from [facility] 03/30 @ 11:58am 1. Loan Expeditor: Who is requesting this appointment?patient 2. Loan Expeditor: Please indicate the best contact information for our team to reach you with any questions/concerns we may have? cell 3. Loan Expeditor: What is your diagnosis? Pituitary Tumor 4. Loan Expeditor: Have you ever been seen at our center before? No 5. Loan Expeditor: Is there a specific doctor you were referred to? No 6. Loan Expeditor: What facility and/or hospital have you been seen at? [facility] Name offacility/name of provider where patient was treated. Dr. [place] Elena Montalvo 7. Loan Expeditor: For this appointment, we will need to request a few records from you. This will help our triage team be able to select the best provider for your treatment. a. Please provide: Most recent MRI- spine/Brain (Loan Expeditor will check CareEverywhere for records). 8. Loan Expeditor: Where was your last imaging completed:[facility] March 2024(Ideally should be completed within the last six months). 9. Loan Expeditor: Have you had any surgeries pertaining to this appointment? No If yes, please obtain pathology report. 10. Loan Expeditor: Please allow up to 48-72 hours for our triage team to review your records. Once theyreviewed your records, we will be in contact with you. a. Was the patient made aware of the turnaround time? Yes 11. Loan Expeditor: Our department offers virtual visits depending on the provider you are recommended to see and the state that you live in. If able to schedule, would you like a virtual visit? Yes a. If answered yes: Does the patient have MyChart access: Yes If not, then bung driver will walk patient through getting access to [facility]. b. If no, Are you interested in In Person (If not, please indicate patient refused to schedule at this time and the reason to not proceed with scheduling). 12. Sent to triage pool. (Waiting approval). [facility]* Addendum Note - Ra Abbott APRN.CNP - 03/30/2024 12:22 PM ESTAddended by: RA ABBOTT on: 03/30/2024 12:22 PM Modules accepted: Orders [facility]01-27-2025 Telephone encounter Note* Telephone Encounter - Ra Abbott APRN.CNP - 03/30/2024 12:17 PM EST Time Frame: Next available Orders: Blood work (must be drawn @ 8AM any day prior to appt) Provider: Dr. Melgoza or Dr. Stewart & Dr. Tenisha Palacios Referring: Self Please instruct patient to hand carry/ upload images prior to appt Dx: Pituitary lesion Patient: Db Doan Address: Db Doan [id number] [place] [address] [address] [facility] [address] Per Triage: Db Doan is a 53 year old female that requests evaluation of previously diagnosed pituitary lesion. Patient expectations: New Consult Tumor Specifics: Location: pituitary Previous Evaluations: MRI w/wo contrast (03/08/24): @ [facility] 1. No evidence of acute intracranial abnormality. 2. 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 This extends into the suprasellar cistern but there is no evidence of compression of the optic chiasm. Clinical correlation is suggested. 3. Otherwise, unremarkable MRI of the orbits. Previous Treatments: N/A Impression: As above. Ra Abbott APRN.CNP March 30, 2024 [facility]01-27-2025 Telephone encounter Note* Telephone Encounter - Fiona Blum - 03/30/2024 11:51 AM EST Records requested from [facility] 03/30 @ 11:58am 1. Loan Expeditor: Who is requesting this appointment?patient 2. Loan Expeditor: Please indicate the best contact information for our team to reach you with any questions/concerns we may have? cell 3. Loan Expeditor: What is your diagnosis? Pituitary Tumor 4. Loan Expeditor: Have you ever been seen at our center before? No 5. Loan Expeditor: Is there a specific doctor you were referred to? No 6. Loan Expeditor: What facility and/or hospital have you been seen at? [facility] Name offacility/name of provider where patient was treated. Dr. [place] Elena Montalvo 7. Loan Expeditor: For this appointment, we will need to request a few records from you. This will help our triage team be able to select the best provider for your treatment. a. Please provide: Most recent MRI- spine/Brain (Loan Expeditor will check CareEverywhere for records). 8. Loan Expeditor: Where was your last imaging completed:[facility] March 2024(Ideally should be completed within the last six months). 9. Loan Expeditor: Have you had any surgeries pertaining to this appointment? No If yes, please obtain pathology report. 10. Loan Expeditor: Please allow up to 48-72 hours for our triage team to review your records. Once theyreviewed your records, we will be in contact with you. a. Was the patient made aware of the turnaround time? Yes 11. Loan Expeditor: Our department offers virtual visits depending on the provider you are recommended to see and the state that you live in. If able to schedule, would you like a virtual visit? Yes a. If answered yes: Does the patient have MyChart access: Yes If not, then bung driver will walk patient through getting access to [facility]. b. If no, Are you interested in In Person (If not, please indicate patient refused to schedule at this time and the reason to not proceed with scheduling). 12. Sent to triage pool. (Waiting approval). [facility]01-26-2025 Hospital Discharge instructions* Discharge Instructions* Ron Nuñez MD - 03/29/2024 9:52 AM EST Thank you for the opportunity to serve in your medical care today. Please be sure to take your prescribed medication as directed. Follow up with your doctor is critical for optimal healing. Should you have any new or worsening symptoms, please return to the Emergency Department for further work-up and evaluation. * Attachments The following attachments cannot be sent through Care Everywhere. * Back Pain (Malaysian) * Back: Preventing Injuries (Malaysian) [facility] Discharge instructions* Discharge Instructions* Rosi Petersen DO - 03/18/2024 5:12 AM EST Follow-up with family doctor. Return for any significant worsening symptoms or other acute symptomsor concerns. * Attachments The following attachments cannot be sent through Care Everywhere. * Sciatica (Malaysian) [facility] Discharge instructions* Discharge Instructions* Ninoska Munoz APRN - CNP - 03/12/2024 8:10 PM EST Do not drink alcohol, drive or operate heavy equipment while taking narcotics. * Attachments The following attachments cannot be sent through Care Everywhere. * Low Back Contusion (Malaysian) * Cervical Strain or Sprain: Rehab Exercises (Malaysian) * Head Injury (Malaysian) * Postconcussion Syndrome (Malaysian) * Quadriceps Contusion (Malaysian) * Abrasions (Malaysian) * Opioids: General Info (Malaysian) [facility] History of Present illness Narrative* Wong Castillo MD - 03/09/2024 3:01 PM EST Subjective: Chief complaint: Diplopia is resolved Now complaining of chronic back pain No problems overnight. Denies chest pain, angina, and dyspnea. Denies abdominal pain. Tolerating diet. No nausea or vomiting. Objective: BP 110/62 Pulse 80 Temp 97.7 F (36.5 C) (Temporal) Resp 13 SpO2 96% General : Awake ,alert,no distress. Heart: RRR, no murmurs, gallops, or rubs. Lungs: CTA bilaterally, no wheeze, rales or rhonchi Abd: bowel sounds present, nontender, nondistended, no masses Extrem: No clubbing, cyanosis, or edema CBC: Lab Results Component Value Date/Time WBC 4.6 03/07/2024 09:45 PM RBC 4.13 03/07/2024 09:45 PM HGB 12.5 03/07/2024 09:45 PM HCT 37.6 03/07/2024 09:45 PM MCV 91.0 03/07/2024 09:45 PM MCH 30.3 03/07/2024 09:45 PM MCHC 33.2 03/07/2024 09:45 PM RDW 12.7 03/07/2024 09:45 PM PLT 305 03/07/2024 09:45 PM MPV 8.0 03/07/2024 09:45 PM BMP: Lab Results Component Value Date/Time NA 139 03/07/2024 09:45 PM K 3.9 03/07/2024 09:45 PM K 4.3 07/01/2020 03:20 AM CL 102 03/07/2024 09:45 PM CO2 30 03/07/2024 09:45 PM BUN 3 03/07/2024 09:45 PM CREATININE 0.7 03/07/2024 09:45 PM CALCIUM 9.1 03/07/2024 09:45 PM GFRAA >60 07/01/2020 03:20 AM LABGLOM >90 03/07/2024 09:45 PM LABGLOM >60 04/25/2023 11:45 AM GLUCOSE 105 03/07/2024 09:45 PM GLUCOSE 88 06/02/2022 02:29 PM PT/INR: Lab Results Component Value Date/Time PROTIME 11.8 04/25/2023 11:45 AM INR 1.1 04/25/2023 11:45 AM Troponin: No results found for: TROPONINI No results for input(s): LABURIN in the last 72 hours. No results for input(s): BC in the last 72 hours. No results for input(s): BLOODCULT2 in the last 72 hours. Current Facility-Administered Medications: ondansetron (ZOFRAN) injection 4 mg, 4 mg, IntraVENous, Q6H PRN, Emelia Melendez MD, 4 mg at 03/08/24 0116 oxyCODONE-acetaminophen (PERCOCET) 5-325 MG per tablet 1 tablet, 1 tablet, Oral, Q6H PRN OR oxyCODONE-acetaminophen (PERCOCET) 10-325 MG per tablet 1 tablet, 1 tablet, Oral, Q6H PRN, Erica Alvarez DO, 1 tablet at 03/09/24 1052 gabapentin (NEURONTIN) capsule 600 mg, 600 mg, Oral, TID, Erica Alvarez DO, 600 mg at 452 sodium chloride flush 0.9 % injection 5-40 mL, 5-40 mL, IntraVENous, 2 times per day, Erica Alvarez DO, 10 mL at 03/09/24 0840 sodium chloride flush 0.9 % injection 5-40 mL, 5-40 mL, IntraVENous, PRN, Erica Alvarez DO 0.9 % sodium chloride infusion, , IntraVENous, PRN, Erica Alvarez DO potassium chloride (KLOR-CON M) extended release tablet 40 mEq, 40 mEq, Oral, PRN OR potassium bicarb-citric acid (EFFER-K) effervescent tablet 40 mEq, 40 mEq, Oral, PRN OR potassium [id number] mEq/100 mL IVPB (Peripheral Line), 10 mEq, IntraVENous, PRN, Erica Alvarez DO magnesium sulfate 2000 mg in 50 mL IVPB premix, 2,000 mg, IntraVENous, PRN, Erica Alvarez DO enoxaparin (LOVENOX) injection 40 mg, 40 mg, SubCUTAneous, Daily, Erica Alvarez DO, 40 mg at 03/09/24 0840 polyethylene glycol (GLYCOLAX) packet 17 g, 17 g, Oral, Daily PRN, Erica Alvarez, acetaminophen (TYLENOL) tablet 650 mg, 650 mg, Oral, Q6H PRN OR acetaminophen (TYLENOL) suppository 650 mg, 650 mg, Rectal, Q6H PRN, Erica Alvarez, albuterol (PROVENTIL) (2.5 MG/3ML) 0.083% nebulizer solution 2.5 mg, 2.5 mg, Nebulization, 4x DailyPRN, Erica Alvarez DO lamoTRIgine (LAMICTAL) tablet 150 mg, 150 mg, Oral, Daily, Erica Alvarez DO, 150 mg at 03/09/24 0840 DULoxetine (CYMBALTA) extended release capsule 60 mg, 60 mg, Oral, BID, Erica Alvarez DO, 60 mg at 03/09/24 0840 ADULT DIET; Regular MRI ORBITS FACE NECK W WO CONTRAST Final Result 1. No evidence of acute intracranial abnormality. 2. 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 This extends into the suprasellar cistern but there is no evidence of compression of the optic chiasm. Clinical correlation is suggested. 3. Otherwise, unremarkable MRI of the orbits. MRI BRAIN W WO CONTRAST Final Result 1. No evidence of acute intracranial abnormality. 2. 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 This extends into the suprasellar cistern but there is no evidence of compression of the optic chiasm. Clinical correlation is suggested. 3. Otherwise, unremarkable MRI of the orbits. CTA HEAD W CONTRAST Final Result Unremarkable CTA of the head. CTA NECK W CONTRAST Final Result Unremarkable CTA of the neck. XR SHOULDER LEFT (MIN 2 VIEWS) Final Result No acute abnormality. Assessment: Principal Problem: Diplopia Active Problems: Pituitary adenoma (HCC) Resolved Problems: * No resolved hospital problems. * Pituitary adenoma Chronic back pain Migraine Plan: Details of MRI discussed with the patient Neurosurgery input noted Neurosurgery facilitating referral to a [employer] tumor specialist at [place] Patient now requesting narcotics Defer this to her PCP Wong Castillo MD 3:02 PM 03/09/2024 NOTE: This report was transcribed using voice recognition software. Every effort was made to ensureaccuracy; however, inadvertent fiscal accountant errors may be present Rev. Lino Chao - 03/09/2024 10:54 AM EST Spiritual Health History and Assessment/Progress Note Y Eli Josephine (P) Initial Encounter, , , Name: Db Doan Age: 53 y.o. Sex: female Language: Malaysian Buddhism: None Diplopia Date: 03/09/2024 Spiritual Assessment began in [address] PICU Referral/Consult From: (P) Rounding Encounter Overview/Reason: (P) Initial Encounter Service Provided For: (P) Patient Audrey, Belief, Meaning: Patient identifies as spiritual and is connected with a audrey tradition or spiritual practice Family/Friends No family/friends present Importance and Influence: Patient has spiritual/personal beliefs that influence decisions regarding their health Family/Friends No family/friends present Community: Patient is connected with a spiritual community and feels well-supported. Support system includes: Children Family/Friends No family/friends present Assessment and Plan of Care: Patient Interventions include: Facilitated expression of thoughts and feelings, Explored spiritual coping/struggle/distress, Engaged in theological reflection, Affirmed coping skills/support systems,and Provided sacramental/mandaen ritual Family/Friends Interventions include: No family/friends present Patient Plan of Care: Spiritual Care available upon further referral Family/Friends Plan of Care: No family/friends present * Margaux Neal RN - 03/09/2024 10:46 AM EST Employee pharmacy placed in data base for preferred pharmacy. * Elissa Peter RN - 03/08/2024 4:45 PM EST Chart accessed as nurse assuming care of this patient pending admission to PICU. * Jordin Boyce DO - 03/08/2024 4:09 PM EST Consult received for pituitary mass seen on MRI. Case discussed with attending physician, this is outside of ENT scope of practice. Recommend Neurosurgical consult or transfer to facility with Skull Base Surgery available. Discussed with RN. * Mary Ellen Andre - 03/08/2024 7:52 AM EST MRI screening form needs completed, thank you. [facility] Hospital Discharge instructions* Discharge Instructions* Kayode Jansen DO - 02/28/2024 4:17 AM EST If you develop redness, swelling at the bite sites, drainage go to emergency department for evaluation as this may mean is infected * Attachments The following attachments cannot be sent through Care Everywhere. * Cervical Strain (Malaysian) * Bite: Human (Malaysian) [facility] History of Present illness Narrative* Siddhartha Zarco MD - 02/12/2024 9:00 AM EST Subjective Patient ID: Db Doan is a 53 y.o. female who presents for Neck Pain and Back Pain. HPI Patient presents to office for initial eval of neck pain and lower back pain. Patient states that she has Compressed nerves everywhere in the spine as well as several bulging discs. Patient states worst points are currently the neck and bilateral hips. Was recently in ER for 10 pain to hips, back, and neck Pain Score: 9/10 Injections/Procedures: in past without relief Neuromodulators/Other Medications: flexeril, naproxen, prednisone pack in recent history Other: denies Patient complains today of diffuse body pain, most severe near her tailbone. Patient describes her overall pain as about 10 out of 10 intensity and sharp in nature. Patient has reportedly been seen by several pain management physicians and has gone to several hospitals and emergency rooms for narcotic prescriptions. Patient says that the only thing that helps her get through the day are narcotic medications. Patient was reportedly recommended to undergo ketamine infusions at one point, but did not go to her appointments because they were reportedly scheduled too far out and she had problems with obtaining a ride. Patient reportedly also takes Cymbalta, gabapentin, naproxen, ibuprofen, Flexeril, hydroxyzine, and uses THC gummies. Patient has reportedly not had any recent physical therapy. Patient says she does not routinely do any home exercises. Of note patient previously seen my colleague Dr. Prince about 5 months ago. OARRS: Siddhartha Zarco MD on 02/12/2024 9:04 AM I have personally reviewed the OARRS report for Db Mahmood Jemflor. I have considered the risks of abuse, dependence, addiction and diversion Review of Systems Current Outpatient Medications Medication Instructions acetaminophen (TYLENOL) 650 mg, oral, Every 6 hours PRN cyclobenzaprine (FEXMID) 7.5 mg, 3 times daily PRN cyclobenzaprine (FLEXERIL) 10 mg, oral, 3 times daily PRN DULoxetine (CYMBALTA) 60 mg, Daily RT fdjdqyxclta-narztyrxe-wojzqrec (TRELEGY-ELLIPTA) 200-62.5-25 mcg blister with device 1 puff, inhalation, Daily gabapentin (NEURONTIN) 800 mg, 3 times daily hydrOXYzine pamoate (VISTARIL) 25 mg, 3 times daily PRN lamoTRIgine (LAMICTAL) 150 mg, Daily RT naproxen (NAPROSYN) 500 mg, oral, Every 12 hours naproxen (NAPROSYN) 500 mg, oral, 2 times daily predniSONE (Deltasone) 10 mg tablet Take three tablets orally day 1-3, two tablets day 4-6, and onetablet day 7-9 Past Medical History: Diagnosis Date Rotator cuff disorder No past surgical history on file. No family history on file. No Known Allergies XR hip right with pelvis when performed 2 or 3 views 02/10/2024 Narrative Interpreted By: Monae Owens, STUDY: XR HIP RIGHT WITH PELVIS WHEN PERFORMED 2 OR 3 VIEWS; ; 02/10/2024 4:56 am INDICATION: Signs/Symptoms:fall. COMPARISON: 08/04/2022 ACCESSION NUMBER(S): [id number] ORDERING CLINICIAN: CHRIS TIWARI FINDINGS: AP pelvis and two views of the right hip. No acute fracture or dislocation identified. Mild degenerative changes noted. Soft tissues are grossly unremarkable. Impression No acute osseous abnormality identified. MACRO: None Signed by: oMnae Owens 02/10/2024 5:44 AM Dictation workstation: [id number] XR cervical spine 2-3 views 02/10/2024 Narrative Interpreted By: Monae Owens, STUDY: XR CERVICAL SPINE 2-3 VIEWS; ; 02/10/2024 4:56 am INDICATION: Signs/Symptoms:fall. COMPARISON: None. ACCESSION NUMBER(S): [id number] ORDERING CLINICIAN: CHRIS TIWARI FINDINGS: Three views of the cervical spine Alignment appears grossly maintained. Visualized dens appears grossly intact. Multilevel degenerative changes with facet and uncinate hypertrophy. Intervertebral disc space narrowing. Vertebral body heights are grossly maintained. The prevertebral soft tissues are within normal limits. Visualized lung apices are clear. Impression Degenerative changes. MACRO: None Signed by: Monae Owens 02/10/2024 5:41 AM Dictation workstation: [id number] XR cervical spine 2-3 views 02/26/2023 Narrative XR SPINE CERVICAL 2 OR 3 VW, February 26, 2023 7:22 AM INDICATIONS: Pain COMPARISON: None. TECHNIQUE: Three views of the cervical spine were submitted. FINDINGS: Cervical lordosis is preserved and no significant subluxation. The cervical vertebral body and disc heights are preserved. Minimal anterior marginal osteophytosis. No prevertebral soft tissue swelling. No aggressive bone lesion. Bone density is unremarkable. Normally aligned lateral masses of C1 on C2. Impression Only minimal anterior marginal osteophytosis. No prevertebral edema or cervical compression fracture. MR lumbar spine wo IV contrast 09/21/2022 Narrative Patient Name: DB DOAN : 1970 [facility]#: [id number] Exam Date/Time: 09/21/2022 17:18 Procedure: MR LUMBAR SPINE WO CONTRAST Ordering Provider: [facility] [place] Reason For Exam: Low back pain, cauda equina syndrome suspected CLINICAL INFORMATION: Lower back pain with lower extremity weakness. Abnormal gait. MRI lumbar spine without contrast: Sagittal and axial T1 and turbo spin-echo T2 and sagittal T2-weighted inversion recovery images areobtained. Correlation with lumbar spine radiographs of 09/04/2022 demonstrate the presence of five lumbar type vertebral bodies. There is no intrinsic signal or structural abnormality of the distal spinal cord, conus medullaris or cauda equina. The conus terminates at approximately the mid L1 level. There is disc desiccation at L3-L4, L4-L5 and L5-S1 with mild intervertebral disc narrowing at L3-L4. There is no spondylolisthesis. There is a generally capacious lumbar spinal canal. There are no areas of no significant abnormal bone marrow signal intensity. T12-L1: No disc bulge or protrusion. T12-L1: No disc bulge or protrusion. L1-L2: No disc bulge or protrusion. L2-L3: No disc bulge or protrusion. L3-L4: Minimal disc bulge minimally flattening the ventral aspect of the thecal sac without thecal sac or neural foraminal narrowing. L4-L5: Small midline annulus hyperintensity with disc bulge or minimal broad protrusion mildly flattening the ventral aspect of the thecal sac with minimal thecal sac narrowing. Mild to moderate right and mild left ligamentum flavum and facet hypertrophy without neural foraminal narrowing. L5-S1: Disc bulge or small broad protrusion abutting the ventral aspect of the thecal sac without thecal sac narrowing or S1 nerve root displacement. Mild left facet hypertrophy. No neural foraminal narrowing. Impression 1. Multilevel lower lumbar degenerative disc disease. 2. Small L4-L5 minimal midline annulus hyperintensity with disc bulge or minimal broad protrusion with minimal thecal sac narrowing. 3. L5-S1 disc bulge or small broad protrusion without thecal sac narrowing or S1 nerve root displacement. 4. Minimal L3-L4 disc bulge without thecal sac narrowing. 5. Otherwise negative examination. Report Dictated on Electronically Signed By: Rohan Nguyen MD Electronically Signed Date/Time: 09/21/2022 6:03 PM EDT MR lumbar spine wo IV contrast Narrative Interpreted By: KATHY BENITEZ MD Patient Name: DB DOAN STUDY: MRI L-SPINE WO; 06/02/2022 3:53 pm INDICATION: chronic low back pain with recent MRI, was moving a washer and now having left groin pain and constipation with lumbar pain and left leg weakness on clinical exam . COMPARISON: None. ACCESSION NUMBER(S): [id number] ORDERING CLINICIAN: LISA ROQUE TECHNIQUE: Sagittal and axial T1 and T2 weighted images of the lumbar spine were acquired. Sagittal STIR imaging was also performed FINDINGS: The vertebral bodies demonstrate expected height, alignment and marrow signal except for minimal marrow edema adjacent to inferior endplate of L5. There is mild desiccation of the lower lumbar intervertebral discs. The lower thoracic cord is unremarkable. The conus terminates appropriately at L1-L2. At T12-L1, there is no central canal stenosis or neural foraminal narrowing. At L1-L2, there is no central canal stenosis or neural foraminal narrowing. At L2-L3, there is no central canal stenosis or neural foraminal narrowing. At L3-L4 there is mild bilateral facet hypertrophy without central canal stenosis or neural foraminal narrowing. At L4-L5, there is a circumferential disc bulge with a small central disc protrusion with an associated annular fissure. Mild bilateral facet hypertrophy is seen. A tiny right foraminal disc protrusion is also noted. There is mild bilateral neural foraminal narrowing without central canal stenosis. At L5-S1, there is circumferential disc bulge with a subtle left paracentral disc protrusion and an associated annular fissure. There is mild bilateral facet hypertrophy without central canal stenosis or neural foraminal narrowing. The anterior and posterior paraspinous soft tissues are within normal limits. Impression Mild lumbar spondylosis at L4-L5 and L5-S1 as detailed. MR lumbar spine wo IV contrast 03/22/2022 Narrative EXAMINATION: MRI OF THE LUMBAR SPINE WITHOUT CONTRAST, 03/22/2022 3:00 pm TECHNIQUE: Multiplanar multisequence MRI of the lumbar spine was performed without the administration of intravenous contrast. COMPARISON: None. HISTORY: ORDERING SYSTEM PROVIDED HISTORY: Sacroiliitis (HCC) FINDINGS: BONES/ALIGNMENT: There is normal alignment of the spine. The vertebral body heights are maintained. The bone marrow signal appears unremarkable. SPINAL CORD: The conus terminates normally. SOFT TISSUES: No paraspinal mass identified. L1-L2: There is no significant disc herniation, spinal canal stenosis or neural foraminal narrowing. L2-L3: There is no significant disc herniation, spinal canal stenosis or neural foraminal narrowing. L3-L4: Disc desiccation mild loss of disc height and a minimal disc bulge. No significant central canal, lateral recess or neural foraminal stenoses. L4-L5: Disc desiccation with a small disc bulge. Tiny annular tear in the posterior midline disc. Mild facet hypertrophy. No significant central canal or lateral recess stenosis. Mild neural foraminal stenoses. L5-S1: Disc desiccation with a small disc bulge. An annular tear is seen in the left neural foraminal segment of the disc. No significant central canal, lateral recess or neural foraminal stenoses. Impression 1. No fracture or bony destructive lesion. 2. Disc bulges in the lower lumbar spine, associated with annular tears at L4-5 and L5-S1. 3. Mild neural foraminal stenoses at L4-5. 4. No significant central canal or lateral recess stenosis. RECOMMENDATIONS: Unavailable Objective Vitals: 02/12/24 0907 BP: 125/87 Pulse: 88 Resp: 16 SpO2: 97% Physical Exam GENERAL EXAM Vital Signs: Vital signs to include heart rate, respiration rate, blood pressure, and temperature were reviewed. General Appearance: Awake, alert, healthy appearing, well developed, No acute distress. Head: Normocephalic without evidence of head injury. Neck: The appearance of the neck was normal without swelling with a midline trachea. Eyes: The eyelids and eyebrows exhibited no abnormalities. Pupils were not pin- point. Sclera was without icterus. Lungs: Respiration rhythm and depth was normal. Respiratory movements were normal without labored breathing. Cardiovascular: No peripheral edema was present. Neurological: Patient was oriented to time, place, and person. Speech was normal. Balance, gait, and stance were unremarkable. Psychiatric: Appearance was normal with appropriate dress. Mood was euthymic and affect was normal. Skin: Affected regions were without ecchymosis or skin lesions. Physical exam as above except: Diffuse tenderness to palpation over upper thoracic spine, lower lumbar spine, bilateral shoulders,bilateral hips Assessment/Plan Diagnoses and all orders for this visit: Other chronic pain Chronic pain syndrome - Referral to Pain Medicine Drug-seeking behavior 53 y.o. F presents with chronic pain throughout her body and reports that the only thing that helpswith her pain is narcotics. After review of patient's extensive medical record and OARRS it appearsthe patient has been seen multiple times in many different emergency room departments and by different pain physicians in the area for chronic pain. Patient history and evaluation consistent with ankylosing spondylitis, possible fibromyalgia, possible opioid induced hyperalgesia, and drug-seeking behavior. While she certainly does have pain likely this repeated and continuous opiate use has significantly worsened her pain. We did discuss that her behavior is very concerning for opiate use disorder which I think is overlying all of the issues. She is on appropriate adjunctive medications in terms of duloxetine and gabapentin but is not very functional and is not exercising or doing any type of physical therapy. Plan: -Patient advised to see addiction medicine at this time. Patient refused to have this discussion regarding evaluation by addiction medicine, and abruptly left visit. - Patient may follow-up with me as needed but I would as above recommend patient see addiction medicine Geraldine Auguste DO - Pain Fellow This note was generated with the aid of dictation software, there may be typos despite my attempts at proofreading. I saw and evaluated the patient. I personally obtained the barger and critical portions of the historyand physical exam or was physically present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 bruise to her left. She does not want to claim Worker's Comp. - Review of Systems All Other Systems: Pertinent Positives in HPI, All Other Systems Negative Constitutional: Denies: Fever, Chills, Sweats, Weakness, Malaise Respiratory: Denies: Cough, Shortness of Breath, Wheezing Cardiovascular: Denies: Chest Pain, Palpitations, Light Headedness Gastrointestinal: Denies: Nausea, Vomiting, Abdominal Pain, Diarrhea, Constipation, Melena, Hematochezia Genitourinary: Denies: Dysuria, Frequency, Urgency, Hematuria, Incontinence, Retention Musculoskeletal: Back Pain, Hip Pain. Denies: Neck Pain, Shoulder Pain, Knee Pain, Ankle Pain Skin: Bruising. Denies: Rash, Lesions, Jaundice, Laceration, Abrasion Neurological: Denies: Headache, Weakness, Numbness, Incoordination, Change in Speech, Confusion, Seizures - Past Medical History ED PMH: Yes Anxiety, Yes Arthritis, Yes Depression, Yes Seizures - Past Surgical History Surgical History: Yes (X 2), Yes Hernia Repair (LT INGUINAL) - Social History Smoking Status: Current every day smoker Hx Alcohol Use: No - Physical Exam General Appearance: awake, alert, no apparent distress Eyes: PERRL, EOMI, conjunctivae clear Head, Ears, Nose, and Throat: pharynx normal, mucous membranes moist, atraumatic Neck: supple, no bony tenderness, full ROM Respiratory: lungs clear, no wheezes/rhonchi/rales, no respiratory distress, no accessory muscle use Cardiovascular: regular rate, rhythm, no murmur Abdomen/GI: non tender, soft, non-distended, normal bowel sounds, no organomegaly, no pulsatile mass, no peritoneal signs Back: no CVA tenderness, no vertebral tenderness, normal ROM (No signs of cord compression or cauda equina) Extremity: normal range of motion, non-tender, normal inspection, normal capillary refill, pelvis stable Pulses: Radial: 2+, Dorsalis Pedis: 2+ Neurologic: no motor/sensory deficits, normal gait, normal strength, normal sensation, speech clear/fluent Psychiatric: oriented x3, anxious Skin Exam: warm/dry, normal color - Source of History Source of History: Nursing Notes/Vital Signs/Triage Reviewed and Agree Source of History: Old Medical Records Reviewed Note(s) - Physician Notes Additional Notes, See Orders for Details: 11/23/23 15:42 MEDICAL DECISION MAKING Number and Complexity of Problems Differential Diagnosis: [X]-herniated disc, strain, compression fracture, contusion MDM Data External documents reviewed: [X]-no outside records available for review My EKG Interpretation: [] My CT Interpretation: [] My X-ray Interpretation: [] My Ultrasound Interpretation: [] Decision rules/scored evaluated: [] Tests considered but not ordered: [] Discussed with: [] Treatment and Disposition ED Course: [X]-see below Shared decision making: [X]-patient agreeable with treatment plan Social determinants: [X]-none Code status: [X]-full 11/23/23 16:16 Patient not wanting to claim Worker's Comp. She has chronic low back pain. She states she is just really here for pain medications because she is so sore. She is currently in the process of getting referred to pain management. [place] was reviewed and she had several past prescriptions from several different prescribers. Currently she is showing an active prescription for gabapentin. She was given a dose of Dilaudid 1 mg IM while here. She states she has been taking NSAIDs without relief. She also states steroid shots have been given in her back at the Clinic and dont help. 11/23/23 16:33 Exam/Proc: LUMBAR SPINE-2 OR 3 VIEW Dept: RADIOLOGY EXAMINATION: 2 XRAY VIEWS OF THE LUMBAR SPINE11/23/2023 4:08 pm COMPARISON: CT lumbar spine 09/30/2023 HISTORY: ORDERING SYSTEM PROVIDED HISTORY: TECHNOLOGIST PROVIDED HISTORY: Reason for Exam: PAIN FINDINGS: There are 5 pze-yrl-yddjkfu lumbar type vertebral bodies. Alignment and curvature of lumbar spine is maintained. Vertebral body heights are maintained.. Multilevel spondylotic changes including marginal osteophytes and facet arthropathy at lower lumbar levels.. SI joints are symmetric. The visualized sacrum and pelvis are unremarkable. The visualized soft tissues exhibit no acute abnormalities. IMPRESSION: No compression deformity or significant listhesis. Mild degenerative change, greatest at L5-S1. I have personally reviewed the images of this examination and agree with the resident's findings and interpretation. Electronically signed By Nabil Delgado 11/23/2023 4:20:03 PM EST Workstation ID : [id number] REPORT SIGNATURE ON FILE Electronically Signed Date/Time: 11/23/23 1620 Dictated Date/time: 11/23/23 1615 11/23/23 16:33 Exam/Proc: PELVIS-1 OR 2 VIEWS Dept: RADIOLOGY EXAMINATION: ONE XRAY VIEW OF THE PELVIS11/23/2023 4:07 pm COMPARISON: CT abdomen pelvis 06/15/2023, x-ray pelvis 08/09/2022 HISTORY: ORDERING SYSTEM PROVIDED HISTORY: TECHNOLOGIST PROVIDED HISTORY: Reason for Exam: PAIN, FINDINGS: No fracture or dislocation. IMPRESSION: No fracture or dislocation. I have personally reviewed the images of this examination and agree with the resident's findings and interpretation. Electronically signed By Benjie Blankenship 11/23/2023 4:24:06 PM EST Workstation ID : [id number] REPORT SIGNATURE ON FILE Electronically Signed Date/Time: 11/23/23 1624 Dictated Date/time: 11/23/23 1609 11/23/23 16:34 11/23/23 16:42 At this time patient instructed to continue her gabapentin and she can continue kwov-bkx-[id number] medications for pain. She is definitely showing drug-seeking behavior. She can follow-up with the clinic to discuss other alternatives to her pain management. She is up and ambulating here without any clinical trial assistant without any signs of discomfort. Return precautions discussed. She was offered work note but declined. EKG - EKG EKG Interpretation: Not Applicable Discharge Screen - Discharge Discharge Problem: Chronic low back pain Disposition: HOME/SELF CARE Additional Instructions: If the symptoms worsen or new symptoms develop return to the Emergency Department (ED) immediately. Call your doctor for additional questions. Condition: Good Instructions: Managing Chronic Low Back Pain Referrals: provider (Unknown),Unlisted [Primary Care Provider] - 2-3 Days <Electronically signed by Elizabeth Go > Dictated By: MALIA Sims Dictated Date/Time:11/23/23 1444 Electronically Signed Date/Time: 11/23/23 2308 [facility] Work Phone: [phone] Emergency department Note* Gillian Mcnamara RN - 10/27/2023 2:15 AM EDT Went to give the patient her sulfamethoxazole-trimethoprim and the patient was not in her room. Thepatient left without her antibiotic or her discharge papers. [id number] Emergency department Note* Gillian Mcnamara RN - 10/27/2023 2:15 AM EDT Went to give the patient her sulfamethoxazole-trimethoprim and the patient was not in her room. Thepatient left without her antibiotic or her discharge papers. documented in this [id number] Hospital Discharge instructions* Discharge Instructions* Jose Villagomez DO - 10/27/2023 2:09 AM EDT Take all antibiotics until gone. Infection instructions: Return to the ED if you still have a fever 48 hours after starting antibiotics, if you cannot take your antibiotics, if your condition gets worse, or you aren't better in 2 days. Procedures done during this visit: None * Attachments The following attachments cannot be sent through Care Everywhere. * Ingrown Toenail Discharge Instructions (Malaysian) documented in this [id number] NoteHNO ID: [id number] Author: GASTON LAINEZ RN Service: Nursing Author Type: Registered Nurse Type: Nursing Progress Note Filed: 10/23/2023 16:39 Note Text: Patient left without d/c summary.[facility]08-21-2024 NoteHNO ID: [id number] Author: LANCE SR MD Service: ? Author Type: Physician Type: Progress Notes Filed: 10/23/2023 14:50 Note Text: PROGRESS NOTE - INTERNAL MEDICINE PATIENT NAME: Db Doan Patient Active Hospital Problem List: Syncope and collapse determined by examination Date Noted: 10/22/2023 Bilateral low back pain with left-sided sciatica Date Noted: 10/28/2014 Generalized anxiety disorder Date Noted: 10/28/2014 Centrilobular emphysema (HCC) Date Noted: 03/23/2022 Fibromyalgia Date Noted: 10/22/2023 PTSD (post-traumatic stress disorder) Date Noted: 10/22/2023 PLAN: Syncope: Physical examination is benign. No gross neurologic deficit. Check stress test result. COPD: Continue with respiratory treatment as needed. Management as outpatient. Anxiety: Management as outpatient. PTSD and FM: Continue with the same medications. LBP: sees pain management. SZD: On Lamictal. Gabapentin. Discussed with patient in details. Has significant psychiatric problems. Advised to follow up with PCP and psychiatrist. If stress test is negative, OK to discharge the patient. Rest of management as outpatient. I personally spent more than 30 minutes for discharge of this patient. Discussed with unit PA/TECHNICAL APPLICATIONS SPECIALIST about care plans. Physical Examination: Alert, comfortable, in no acute distress. Depressed mood. BP 139/73 Pulse 84 Temp 36.6 ?C (97.9 ?F) (Oral) Resp 17 Ht 170.2 cm (5' 7) Wt 63.5 kg (140 lb) SpO2 99% BMI 21.93 kg/m? HEENT: Unremarkable, AT/NC. Neck: supple, No JVD, No lymphadenopathy, No thyromegally Chest: Clear to auscultation bilaterally, No rales, Rhonchi, or wheezing. Heart: Regular, No S3 gallop. Abdomen: Soft, nontender, Bowel sounds are present. No organomegally. No rebound, no guarding. Extremities: No edema, cyanosis. Peripheral pulses are palpable. Neurologically has no gross deficit. INTERVAL HISTORY OF PRESENT ILLNESS: Patient is doing fine. No dysuria or hematuria. No hematemesis or melena. Denies any chest pain, SOB, nausea, vomiting, diarrhea, constipation, or abdominal pain. No dizziness, lightheadedness, or loss of consciousness. Complains of LBP. Crying. Patient Vitals for the past 24 hrs: BP Temp Temp src Pulse Resp SpO2 10/23/23 1116 139/73 36.6 ?C (97.9 ?F) Oral 84 17 99 % 10/23/23 0723 114/61 36.4 ?C (97.5 ?F) Oral 84 16 97 % 10/23/23 0716 -- -- -- 84 20 100 % 10/23/23 0703 -- -- -- 85 20 100 % 10/23/23 0408 112/65 36.8 ?C (98.2 ?F) Oral 83 18 99 % 10/22/23 2349 105/61 36.5 ?C (97.7 ?F) Oral 86 17 97 % 10/22/23 1954 123/72 36.3 ?C (97.3 ?F) Oral 84 17 99 % 10/22/23 1558 -- -- -- 87 14 -- 10/22/23 1542 -- -- -- 86 16 96 % Body mass index is 21.93 kg/m?. Last 2 Encounter Wt Readings: Date: Wt: 10/22/2023 63.5 kg (140 lb) 10/22/2023 63.5 kg (140 lb) DATA: Diagnostic tests reviewed for today's visit: Most recent labs Most recent imaging Current Facility-Administered Medications Medication Dose Route Frequency heparin 5,000 Units injection 5,000 Units SUBCUTANEOUS q 12 H NaCl 0.9% iv flush bag 20 mL INTRAVENOUS PRN prochlorperazine 5 mg injection (COMPAZINE) 5 mg INTRAVENOUS q 6 H PRN docusate sodium 100 mg cap(s) (COLACE) 100 mg ORAL BID PRN acetaminophen 650 mg tab(s) (TYLENOL) 650 mg ORAL q 6 H PRN lidocaine 4 % 1 Patch (SALONPAS) 1 Patch TRANSDERMAL DAILY And lidocaine patch - REMOVE OTHER AT BEDTIME And lidocaine - VERIFY PATCH OTHER q 8 H DULoxetine 60 mg cap(s) (CYMBALTA) 60 mg ORAL BID gabapentin 600 mg tab(s) (NEURONTIN) 600 mg ORAL TID hydrOXYzine HCl 25 mg tab(s) (ATARAX) 25 mg ORAL q 8 H PRN lamoTRIgine (LaMICtal) tab(s) 150 mg 150 mg ORAL DAILY cyclobenzaprine 10 mg tab(s) (FLEXERIL) 10 mg ORAL AT BEDTIME PRN budesonide 0.5 mg/2 mL 1 mg (PULMICORT) 1 mg INHALATION BID And ipratropium-albuterol 3 mL nebulizer solution (DUONEB) 3 mL INHALATION QID sodium chloride 0.9 % (flush) 2-10 mL (BD POSIFLUSH) 2-10 mL INTRAVENOUS DIRECTED PRN And perflutren lipid microspheres 1.1 mg/mL 1.3 mL injection (DEFINITY) 1.3 mL INTRAVENOUS DIRECTED PRN oxyCODONE-acetaminophen 5-325 mg 2 tablet (PERCOCET) 2 tablet ORAL q 6 H PRN Recent Labs 10/23/23 1219 10/23/23 0615 10/22/23 0708 WBC 5.95 3.83 6.98 HB 12.0 10.8* 15.0 HCT 35.4* 32.3* 43.3 PLT 258 221 316 NA -- 142 136 K -- 4.3 4.1 CHLOR -- 109* 97* CO2 -- 29 30 CREAT -- 0.70 0.69 BUN -- 6* 8 GLUC -- 72* 91 TPROT -- 4.7* 6.4 ALB -- 3.1* 4.2 MG -- 2.3 2.4* CA -- 8.3* 9.5 ALKPHOS -- 44 68 TBILI -- 0.2 0.2 AST -- 14 21 ALT -- 16 22 SIGNATURE: Lance Sr MD DATE: October 23, 2023 TIME: 2:49 [facility]08-21-2024 NoteHNO ID: [id number] Author: NABIL MARROQUIN, Nuclear Elli Service: Nuclear Medicine Author Type: Melter Caster Type: Progress Notes Filed: 10/23/2023 11:12 Note Text: RADIOLOGY SERVICE PROGRESS NOTE SERVICE DATE: 10/23/2023 SERVICE TIME: 10:31 AM PATIENT IDENTITY VERIFICATION COMPLETED USING TWO (2) STANDARD IDENTIFIERS: Name and Date of confirmed by patient verbally FALL SCREENING: Has the patient had 2 falls in the last year or 1 fall with injury or currently using an Ambulatory Assistive Device (Walker, Cane, Wheelchair, Crutches, etc.)? Inpatient: Screened on floor PATIENT GENDER DATA: .female : No ALLERGIES: Reviewed and unchanged MEDICATIONS REVIEWED: Yes PATIENT RELEVANT IMPLANT DATA REVIEWED: Not Applicable PATIENT PRESENTS WITH AN IMPLANTABLE OR ATTACHED LINE LEADER: No CREATININE: Creatinine Date Value Ref Range Status 10/23/2023 0.70 0.58 - 0.96 mg/dL Final 10/22/2023 0.69 0.58 - 0.96 mg/dL Final 10/17/2023 0.67 0.52 - 1.04 mg/dL Final Estimated Glomerular Filtration Rate Date Value Ref Range Status 10/23/2023 105 >=60 mL/min/1.73m? Final Comment: Estimated Glomerular Filtration Rate (eGFR) is calculated using the 2020 CKD-EPI creatinine equation. This equation utilizes serum creatinine, sex, and age as parameters. The creatinine assay has traceable calibration to isotope dilution-mass spectrometry. Refer to KDIGO guidelines for clinical interpretation. In patients with unstable renal function, e.g. those with acute kidney injury, the eGFR may not accurately reflect actual GFR. eGFR- Date Value Ref Range Status 10/17/2023 >60 >60 mL/min/1.73 2 Final Comment: MDRD calculation used for eGFR results. P.O.C.T. RESULTS: N/A October 23, [address] PERFORMED: No IV SITE: Inpatient - refer to LDA documentation POST EXAM PIV STATUS: Inpatient see LDA documentation PROCEDURE TYPE: NM Stress: 13.3 mCi [id number] was administered IV for Rest Imaging at 8:55AM by DL. 34.0 mCi [id number] was administered IV for Stress Imaging at 10:20AM by GB. ADMINISTRATION TIME: 8:55AM PATIENT DISCHARGED TO: Patient taken to IP transport area for return to [facility]/ICU/ED. A Diagnostic radioactive procedure has taken place, with no further precautions necessary other than routine body substance precautions. More information regarding radiation safety can be found using this link: [email or web address] SIGNATURE: Nabil Marroquin Nuclear [facility] PATIENT NAME: Db Doan DATE: October 23, 2023 TIME: 10:31 AM PAGER/CONTACT #:[facility]08-21-2024 NoteHNO ID: [id number] Author: LISA CASSIDY, NIK Service: ? Author Type: Registered Nurse Type: Procedures Filed: 10/23/2023 10:31 Note Text: Pt identified by name and Pt educated on stress test and Lexiscan Existing IV patent with blood return present Lexiscan stress completed per protocol See MAR for administration IV maintained Pt resting in bed with no signs of distressCenterpoint [facility]-2024 Note HNO ID: [id number] Author: ERICA RANDOLPH MD Service: Cardiovascular Medicine Author Type: Physician Type: Progress Notes Filed: 10/24/2023 15:36 Note Text: CONSULT PROGRESS NOTE: CARDIOLOGY SERVICE PATIENT NAME: Db Doan SERVICE DATE: 10/23/2023 SERVICE TIME: 10:09 AM CONSULTING PHYSICIAN: Erica Randolph MD ASSESSMENT: Reported syncope. Resolved spontaneously. Pt on flexeril, neurontin. Chest pain. History of prolonged episodes of chest pain not related to exertion. Lexiscan stress test : No ischemia. No sign of scarring. EKG : NSR. No old EKG for comparison, but no concerning findings. HS VICKY normal x 2. Tele : NSR. Echo yesterday : Ejection fraction 59%. PLAN: Clear for discharge from a cardiac standpoint if stress test is normal. Other problems: Hx Seizure DO COPD Depression / anxiety Ankylosing spondylitis INTERVAL HPI and SUBJECTIVE: Denies chest pain, palpitations, dizziness today. PHYSICAL EXAM: Body mass index is 21.93 kg/m?. O2 Therapy: Room Air Patient Vitals for the past 48 hrs: BP Temp Temp src Pulse Resp SpO2 Height Weight 10/23/23 0723 114/61 36.4 ?C (97.5 ?F) Oral 84 16 97 % -- -- 10/23/23 0716 -- -- -- 84 20 100 % -- -- 10/23/23 0703 -- -- -- 85 20 100 % -- -- 10/23/23 0408 112/65 36.8 ?C (98.2 ?F) Oral 83 18 99 % -- -- 10/22/23 2349 105/61 36.5 ?C (97.7 ?F) Oral 86 17 97 % -- -- 10/22/23 1954 123/72 36.3 ?C (97.3 ?F) Oral 84 17 99 % -- -- 10/22/23 1558 -- -- -- 87 14 -- -- -- 10/22/23 1542 -- -- -- 86 16 96 % -- -- 10/22/23 1214 -- -- -- 85 16 98 % -- -- 10/22/23 0951 130/75 36.7 ?C (98.1 ?F) Oral 83 16 99 % -- -- 10/22/23 0932 134/72 -- -- 85 18 100 % -- -- 10/22/23 0635 119/88 36.9 ?C (98.4 ?F) Oral (!) 95 16 99 % 170.2 cm (5' 7) 63.5 kg (140 lb) Pleasant, comfortable, not in acute distress. Awake, alert, oriented times 3. Moves all extremities. NECK: Supple, no JVD, no carotid bruit, no thyromegaly. LUNGS: Clear to auscultation bilaterally. CARDIAC: PMI present, RRR, S1 and S2, no S3 or S4, no additional heart sounds or murmurs. EXTREMITIES: No edema. No intake or output data in the 24 hours ending 10/23/23 1009 MEDS: Current meds reviewed. Current Facility-Administered Medications Medication Dose Route Frequency heparin 5,000 Units injection 5,000 Units SUBCUTANEOUS q 12 H NaCl 0.9% iv flush bag 20 mL INTRAVENOUS PRN prochlorperazine 5 mg injection (COMPAZINE) 5 mg INTRAVENOUS q 6 H PRN docusate sodium 100 mg cap(s) (COLACE) 100 mg ORAL BID PRN acetaminophen 650 mg tab(s) (TYLENOL) 650 mg ORAL q 6 H PRN lidocaine 4 % 1 Patch (SALONPAS) 1 Patch TRANSDERMAL DAILY And lidocaine patch - REMOVE OTHER AT BEDTIME And lidocaine - VERIFY PATCH OTHER q 8 H DULoxetine 60 mg cap(s) (CYMBALTA) 60 mg ORAL BID gabapentin 600 mg tab(s) (NEURONTIN) 600 mg ORAL TID hydrOXYzine HCl 25 mg tab(s) (ATARAX) 25 mg ORAL q 8 H PRN lamoTRIgine (LaMICtal) tab(s) 150 mg 150 mg ORAL DAILY cyclobenzaprine 10 mg tab(s) (FLEXERIL) 10 mg ORAL AT BEDTIME PRN budesonide 0.5 mg/2 mL 1 mg (PULMICORT) 1 mg INHALATION BID And ipratropium-albuterol 3 mL nebulizer solution (DUONEB) 3 mL INHALATION QID sodium chloride 0.9 % (flush) 2-10 mL (BD POSIFLUSH) 2-10 mL INTRAVENOUS DIRECTED PRN And perflutren lipid microspheres 1.1 mg/mL 1.3 mL injection (DEFINITY) 1.3 mL INTRAVENOUS DIRECTED PRN oxyCODONE-acetaminophen 5-325 mg 2 tablet (PERCOCET) 2 tablet ORAL q 6 H PRN regadenoson 0.4 mg injection (LEXISCAN) 0.4 mg INTRAVENOUS ONCE And sodium chloride 0.9 % (flush) 5 mL (BD POSIFLUSH) 5 mL INTRAVENOUS ONCE DATA: Diagnostic tests reviewed for today's visit: Most recent labs and imaging results. Labs: CBC: Recent Labs 10/23/23 1219 WBC 5.95 RBC 3.75* HB 12.0 HCT 35.4* PLT 258 MCV 94.4 MCH 32.0 MPV 8.0* BMP: Recent Labs 10/23/23 0615 NA 142 K 4.3 CHLOR 109* CO2 29 BUN 6* CREAT 0.70 GLUC 72* CMP: Recent Labs 10/23/23 0615 NA 142 K 4.3 CHLOR 109* CO2 29 BUN 6* CREAT 0.70 GLUC 72* TPROT 4.7* CA 8.3* MG 2.3 TBILI 0.2 ALKPHOS 44 ALT 16 AST 14 ANION 4* Liver Function, Amylase, Lipase: Recent Labs 10/23/23 0615 TPROT 4.7* ALB 3.1* ALT 16 AST 14 ALKPHOS 44 TBILI 0.2 MG/PHOS: Recent Labs 10/23/23 0615 MG 2.3 Renal Panel: Recent Labs 10/23/23 0615 CREAT 0.70 BUN 6* GLUC 72* CA 8.3* CHLOR 109* K 4.3 CO2 29 NA 142 SIGNATURE: Elif Allen APRN.CNP DATE: October 23, 2023 TIME: 10:09 AM I have reviewed the above note documented by Elif Allen CNP and I personally participated in the barger components. I have discussed the case and management of the patient's care. I have confirmed and addended the note as needed. The physical findings confirmed as above, addended as needed. The assessment and plan reflect our discussion and agreed plan of care. SIGNATURE: Erica Randolph, [facility]08-20-2024 NoteHNO ID: [id number] Author: FELY CHAWLA APRN.CNP Service: General Internal Medicine Author Type: Nurse Practitioner Type: Plan of Care Filed: 10/22/2023 10:57 Note Text: CODE STATUS CONVERSATION: Discussed code status with patient at 10:57 AM on 10/22/2023. I thoroughly discussed the options with them including the definition of cardiac and respiratory arrest, what resuscitation (a code) is, all of the components involved in a code (CPR, cardioversion, medications, and intubation), the benefits and risks of the procedure, all of the options involved in the decision, and we discussed quality of life outcomes related to decision. The patient decided that they would want to undergo resuscitation if they were to arrest and made the decision to have the code status FULL CODE. The patient was informed of the availability to change this decision at any time. The patient was of sound mind during this decision. Order is now in place for FULL CODE. Fely Chawla APRN.CNP October 22, 2023 10:57 [facility]08-20-2024 NoteHNO ID: [id number] Author: FELY CHAWLA APRN.CNP Service: General Internal Medicine Author Type: Nurse Practitioner Type: Plan of Care Filed: 10/22/2023 09:38 Note Text: SERVICE DATE: 10/22/2023 SERVICE TIME: 9:35 AM PRIMARY SERVICE: Internal Medicine ASKED TO COORDINATE ADMISSION ORDERS FOR DR. Sr. ADMISSION DISCUSSED WITH ATTENDING. Subjective: Patient is a 53-year-old female with PMH anxiety, emphysema, ankylosing spondylitis, COPD, fibromyalgia, cervical radiculopathy, epilepsy, migraines, chronic low back pain with sciatica, PTSD presenting to ED for syncope. On 10/07 had steroid injection into her back per chronic back pain. States since then she feels her back pain has been worse and has caused decreased appetite and she feels she may be dehydrated as yesterday she felt very lightheaded like she was in a pass out and had a syncopal event. Her mom did witness the event where she fell to the ground landing on her right side. She did not hit her head. She was out for about a minute and a half before coming to. States she now has pain to her right hip as well. She denies any fevers or chills, cough or congestion, CP or SOB, nausea vomiting or diarrhea, abdominal pain, urinary changes, paresthesias or weakness in the extremities. She does states she has chronic numbness to the left side of her groin, nothing new or worsening. No loss of bowel or bladder function. No tongue or mouth injury. No open wounds. . Objective: BP 134/72 Pulse 85 Temp 36.9 ?C (98.4 ?F) (Oral) Resp 18 Ht 170.2 cm (5' 7) Wt 63.5 kg (140 lb) SpO2 100% BMI 21.93 kg/m? General: Patient is alert, oriented, in no apparent distress. Patient is pleasant and cooperative. HEENT: Normocephalic, atraumatic. PERRLA, EOMI. Cardiac: Regular rate and rhythm. Lungs: CTA bilateral. Abdomen: Soft, nontender. NABSx4. Extremities: No edema. Assessment/Plan: Syncope and collapse -all imaging (-) from syncope and collapse -c/s Cardio -c/s Neuro -Ortho VS -IVF -tele Chronic back pain -lidocaine patches -c/w home pain med -gabapentin -muscle relaxants [facility]IER medications reconciled with patient and dispense records. POC discussed with patient. Dr. Sr to follow with full HANDP and continuation of care. SIGNATURE: Fely Chawla APRN.XUAN PATIENT NAME: Db Doan DATE: October 22, 2023 TIME: 9:35 AM PAGER: [phone] Hospital Discharge instructions* Discharge Instructions* Minna Darby PA - 10/18/2023 1:06 PM EDT Continue with muscle relaxer prednisone burst Lidoderm patch as previously pressure * Attachments The following attachments cannot be sent through Care Everywhere. * Back Pain (Malaysian) * Sciatica (Malaysian) * Headache (Malaysian) [facility] Tele[facility] encounter Note* Telephone Encounter - Jocelyne Albert MD - 10/10/2023 2:47 PM EDT I attempted to call the patient, but I was unable to reach her on her provided contact number. Regarding the message from our nursing staff, I agree with these recommendations. She is only 2 days out from the Caudal Epidural steroid injection, it will be at least 3-7 days to experience relief from the injection, and it is very common to have worsening of pain in the short-term during those first few days. This was discussed at the time of consent for the injection and as part of her after-visit instructions. If she is having red flag symptoms - loss of bowel or bladder function, new and progressively worsening weakness, or intractable pain, then ED would be appropriate and updated imaging might be considered if clinically relevant. Jocelyne Albert III, MD, MBA [facility] Work Phone: [phone]) 122-616308-08-2024 Miscellaneous Notes* Telephone Encounter - Jocelyne Albert MD - 10/10/2023 2:47 PM EDT I attempted to call the patient, but I was unable to reach her on her provided contact number. Regarding the message from our nursing staff, I agree with these recommendations. She is only 2 days out from the Caudal Epidural steroid injection, it will be at least 3-7 days to experience relief from the injection, and it is very common to have worsening of pain in the short-term during those first few days. This was discussed at the time of consent for the injection and as part of her after-visit instructions. If she is having red flag symptoms - loss of bowel or bladder function, new and progressively worsening weakness, or intractable pain, then ED would be appropriate and updated imaging might be considered if clinically relevant. Jocelyne Albert III, MD, MBA * Telephone Encounter - Minna Sandoval LPN - 10/10/2023 2:25 PM EDT Spoke with patient following up from procedure. Patient states that she has had severe increased pain since the procedure. Patient also stated that her pain is throbbing and radiating up her back. She also stated that she was not able to sleep, and that her torso is so stiff she is not able to turn. She stated that she has an autoimmune disease, that she has trouble with anytime any foreign body is introduced to her system. This nurse instructed the patient that she should go to the Emergency department to get checked out. She was also instructed to take her after visit summary with her so everyone knew what procedure she had done. I also went over the discharge instruction again and told her that it takes 3-5 days for the steroid to start working, and 2-3 weeks to get the full effect. Please advise. Minna Sandoval LPN [facility] Telephone encounter Note * Telephone Encounter - Minna Sandoval LPN - 10/10/2023 2:25 PM EDT Spoke with patient following up from procedure. Patient states that she has had severe increased pain since the procedure. Patient also stated that her pain is throbbing and radiating up her back. She also stated that she was not able to sleep, and that her torso is so stiff she is not able to turn. She stated that she has an autoimmune disease, that she has trouble with anytime any foreign body is introduced to her system. This nurse instructed the patient that she should go to the Emergency department to get checked out. She was also instructed to take her after visit summary with her so everyone knew what procedure she had done. I also went over the discharge instruction again and told her that it takes 3-5 days for the steroid to start working, and 2-3 weeks to get the full effect. Please advise. Minna Sandoval LPN [facility]08-06-[facility] Nurse Note* Ny Lea LPN - 10/08/2023 1:16 PM EDT Order has been placed in the patient's chart with the following parameters for discharge from the physician: Patient is alert and oriented Vitals: Diastolic/Systolic +/- 20mmHg Respirations: 12-18 Pulse: 60-100 SpO2 is greater than or equal to 90% Patient has no nausea or vomiting Patient has no dizziness Pain level is +/- 2 from initial evaluation Dressing, dry and intact with no evidence of bleeding Criteria has been met, patient is okay to be discharged per the physician. Physician has gone in and evaluated the patient. Dressing dry and intact. No drainage noted. The patient denies nausea, numbness, tingling, weakness, shortness of breath, dizziness, or headache. Pain level 8/10. Vital signs within normal limits. Patient denied needing walked out by clinical staff and denied needing a wheelchair. Patient given discharge instructions and sent to transportation via ambulatory method. Patient left in good condition. [facility]08-06-[facility] Nurse Note* Ny Lea LPN - 10/08/2023 1:16 PM EDT Order has been placed in the patient's chart with the following parameters for discharge from the physician: Patient is alert and oriented Vitals: Diastolic/Systolic +/- 20mmHg Respirations: 12-18 Pulse: 60-100 SpO2 is greater than or equal to 90% Patient has no nausea or vomiting Patient has no dizziness Pain level is +/- 2 from initial evaluation Dressing, dry and intact with no evidence of bleeding Criteria has been met, patient is okay to be discharged per the physician. Physician has gone in and evaluated the patient. Dressing dry and intact. No drainage noted. The patient denies nausea, numbness, tingling, weakness, shortness of breath, dizziness, or headache. Pain level 8/10. Vital signs within normal limits. Patient denied needing walked out by clinical staff and denied needing a wheelchair. Patient given discharge instructions and sent to transportation via ambulatory method. Patient left in good condition. * Minna Sandoval LPN - 10/08/2023 12:52 PM EDT Procedure to be performed: Caudal Epidural Steroid Injection Patient was walked from exam room to procedure room and assisted onto the procedure tablePatient s procedure was performed in an [facility] Procedure room. Pause completed at each level by provider to verify correct level and laterality placement Pressure was applied to patient s injection site(s) and bleeding was minimal. Patient had no complaint of shortness of breath, dizziness, headache, numbness, tingling, weakness or complications from procedure. Patient was assisted from the procedure table and walked back to exam room. Patient was advised a clinician will be to obtain another set of vitals. Time Out: 1303 Confirmed patient name, date of , procedure site, laterality, and allergies Procedure Start: 1306 Procedure End: 1314 * Leti Abraham LPN - 10/08/2023 12:40 PM EDT Tower Climber's Name: ISIAH Are you on a blood thinner: NO If yes, is a hold required: NO Last dose of blood thinner: NO INR Result today: NO Do you require a Lovenox bridge:NO Are you a diabetic:NO Are you/or could you be : NO Are you taking Xanax for the procedure: NO Are you currently on a steroid? NO Are you currently on an antibiotic: NO Have you had a COVID-19 vaccine in the last 14 days Or are you scheduled to receive one? NO [facility] History of Present illness Narrative* Jocelyne Albert MD - 10/08/2023 1:00 PM EDT [facility] Date: 10/08/2023 Patient name: Db Doan Physician performing procedure: Jocelyne Albert M.D., M.B.A. Diagnosis: (M54.16) Lumbar radiculopathy (primary encounter diagnosis) Procedure: Epidural Steroid Injection - Caudal Approach under fluoroscopic guidance Injectate: A total of 10 ml volume was injected The injectate consisted of: 1 ml of Depo-Medrol (40mg/ml), The remainder consisting of 0.5% Lidocaine Comments: None Improvement after today's procedure: as per nursing report HPI: Db Doan is an 53 year old FEMALE who presents today, in pain, for the procedure noted above. Review of Systems: Pertinent Positives: MSK: pain in the region being treated Neuro: weakness or numbness in the region being treated (unless otherwise noted) Skin: Negative (No itching) Eyes: Negative (No blurred or double vision) Respiratory: Negative (No Cough, [id number], Dyspnea on exertion, wheezing) Cardiovascular: Negative (No Chest Pain, Tightness, Pressure, Palpitations) Gastrointestinal: Negative (No Abdominal pain, Nausea, Vomiting, Constipation, Diarrhea) Genitourinary: Negative (No dysuria) Hematologic: Negative (No bleeding, bruising) OB: is Denied or Not Applicable Endocrine: Negative (No hot/cold intolerance) Psychiatric: Negative (No depression, anxiety or suicidal ideation) PAST MEDICAL HISTORY No date: Anxiety attack No date: Brachial neuritis or radiculitis NOS 03/23/2022: Centrilobular emphysema (HCC) No date: Cervical radiculopathy No date: Cervicalgia No date: Disc displacement, lumbar No date: Displacement of cervical intervertebral disc without myelopathy No date: Generalized convulsive epilepsy without intractable epilepsy (HCC) No date: Intractable pain No date: Lumbar radiculopathy No date: Migraine without aura No date: Other chronic pain No date: PTSD (post-traumatic stress disorder) No date: Reactive depression No date: Sprain or strain of cervical spine No past surgical history on file. FAMILY HISTORY Problem Relation Age of Onset Coronary Artery Disease Father Social History Tobacco Use Smoking status: Every Day Packs/day: .5 Types: Cigarettes Substance Use Topics Alcohol use: Never Drug use: Never Current Outpatient Medications on File Prior to Visit Medication Sig gabapentin (NEURONTIN) 600 mg tablet Take 600 mg by mouth three times a day. HYDROXYZINE HCL ORAL Take by mouth once daily as needed. Unknown dosage DULoxetine (CYMBALTA) 60 mg capsule Take 1 capsule by mouth once daily for 14 days. LIDOCAINE PAIN RELIEF 4 % patch TRELEGY ELLIPTA 200-62.5-25 mcg inhalation powder inhale 1 puff once daily lidocaine (LIDODERM) 5 % lamoTRIgine (LAMICTAL) 100 mg tablet Take 1 tablet by mouth twice daily. No current facility-administered medications on file prior to visit. Objective Exam: Vitals: As per nursing documentation Constitutional: Normal Appearance, Oriented to Time, Place and Person Head: No lacerations, no external signs of trauma Eyes: Conjunctiva clear. No discharge from the eyes Cardiovascular: Appears well-perfused Pulmonary: Non-labored respirations Abdominal: Non-distended Skin: No visible rashes or ecchymosis Psychiatric: Mood appropriate for given condition Neurological: Gross movements are limited by pain, but otherwise unremarkable Data Reviewed: Nursing note and vitals reviewed. Additional imaging reviewed as appropriate Assessment and Plan: As noted above [facility] protocol documentation / Pre-Procedure Checklist: Consent: Obtained in writing prior to procedure I had a nice discussion with the patient today about their current pain and the pathology that could be causing it We discussed different treatment options, including risks, benefits and alternatives. We agreed to proceed as previously discussed, or the plan was modified in accordance with the comments noted above Unless stated otherwise in the procedure note, the risks include but are not limited to infection, allergic reaction, increased pain, lack of therapeutic benefit, steroid reaction, nerve damage, paralysis, stroke, epidural hematoma, syncope, headache, respiratory or cardiac arrest, pneumothorax, and scar formation Once the plan was agreed upon, the patient gave written consent to proceed and was transported intothe procedure room Surgical/Procedure pause or Time Out : Time Out was led by the physician in the procedure room, with the patient and all staff present andparticipating The following information was verified during the Time Out process: Patient name, patient date of , procedure site (marked), laterality, anticoagulants and allergies Procedure: The patient was prepped and draped in a sterile fashion in the prone position after informed consent was signed and all patient questions were answered including the risks, benefits, alternative treatment options, and prognosis. The risks are as mentioned above, with the exception of Pneumothorax. The coronae was localized with palpation and confirmed under fluoroscopic visualization. A 1.5inch,25 gauge needle was inserted and a skin wheel was made. The needle was then advanced until contact was made with the periosteum. Two cc. of 1% Lidocaine without Epinephrine was injected into the periosteum. A 22 gauge, 3.5 inch needle was then advanced through the Sacrococcygeal ligament. Under lateral visualization, the needle was further advanced until contact was made with the posterior surface of the dorsal sacrum. The needle was then withdrawn slightly and aligned parallel to horizontal and advanced into the epidural space. Using AP visualization, the needle was advanced no further superior than the S3 level. Contrast was then injected as described above. Subsequently, the injectate was placed. Radiographs were obtained for documentation purposes. Please see the nursing note for exact times (time out, procedure start, procedure end). After careful removal of the needle, there was minimal bleeding. The injection site was covered with appropriate sterile dressing. The patient was noted to have tolerated the procedure well and was discharged after an appropriate period of post-procedure observation. The patient was instructed to contact us if there were any complications. The patient was advised to follow-up with the requesting physician within one to two weeks or as per their requested follow-up plan. Post procedure visit summary with written instructions was offered to the patient. Jocelyne Albert MD, MBA Pain Management [facility] * Leti Abraham LPN - 10/08/2023 12:44 PM EDT Review of Systems Constitutional: Positive for activity change. Negative for chills, fever and unexpected weight change. Genitourinary: Positive for difficulty urinating. Musculoskeletal: Positive for arthralgias, back pain, gait problem, joint swelling and myalgias. Negative for neck pain and neck stiffness. Neurological: Positive for weakness, numbness and headaches. Psychiatric/Behavioral: Positive for dysphoric mood and sleep disturbance. Negative for suicidal ideas. The patient is nervous/anxious. [facility] NoteHNO ID: [id number] Author: JOCELYNE ALBERT MD Service: ? Author Type: Physician Type: Progress Notes Filed: 10/08/2023 13:51 Note Text: [facility] Date: 10/08/2023 Patient name: Db Doan Physician performing procedure: Jocelyne Albert M.D., M.B.A. Diagnosis: (M54.16) Lumbar radiculopathy (primary encounter diagnosis) Procedure: Epidural Steroid Injection - Caudal Approach under fluoroscopic guidance Injectate: A total of 10 ml volume was injected The injectate consisted of: 1 ml of Depo-Medrol (40mg/ml), The remainder consisting of 0.5% Lidocaine Comments: None Improvement after today's procedure: as per nursing report HPI: Db Doan is an 53 year old FEMALE who presents today, in pain, for the procedure noted above. Review of Systems: Pertinent Positives: MSK: pain in the region being treated Neuro: weakness or numbness in the region being treated (unless otherwise noted) Skin: Negative (No itching) Eyes: Negative (No blurred or double vision) Respiratory: Negative (No Cough, [id number], Dyspnea on exertion, wheezing) Cardiovascular: Negative (No Chest Pain, Tightness, Pressure, Palpitations) Gastrointestinal: Negative (No Abdominal pain, Nausea, Vomiting, Constipation, Diarrhea) Genitourinary: Negative (No dysuria) Hematologic: Negative (No bleeding, bruising) OB: is Denied or Not Applicable Endocrine: Negative (No hot/cold intolerance) Psychiatric: Negative (No depression, anxiety or suicidal ideation) PAST MEDICAL HISTORY No date: Anxiety attack No date: Brachial neuritis or radiculitis NOS 03/23/2022: Centrilobular emphysema (HCC) No date: Cervical radiculopathy No date: Cervicalgia No date: Disc displacement, lumbar No date: Displacement of cervical intervertebral disc without myelopathy No date: Generalized convulsive epilepsy without intractable epilepsy (HCC) No date: Intractable pain No date: Lumbar radiculopathy No date: Migraine without aura No date: Other chronic pain No date: PTSD (post-traumatic stress disorder) No date: Reactive depression No date: Sprain or strain of cervical spine No past surgical history on file. FAMILY HISTORY Problem Relation Age of Onset Coronary Artery Disease Father Social History Tobacco Use Smoking status: Every Day Packs/day: .5 Types: Cigarettes Substance Use Topics Alcohol use: Never Drug use: Never Current Outpatient Medications on File Prior to Visit Medication Sig gabapentin (NEURONTIN) 600 mg tablet Take 600 mg by mouth three times a day. HYDROXYZINE HCL ORAL Take by mouth once daily as needed. Unknown dosage DULoxetine (CYMBALTA) 60 mg capsule Take 1 capsule by mouth once daily for 14 days. LIDOCAINE PAIN RELIEF 4 % patch TRELEGY ELLIPTA 200-62.5-25 mcg inhalation powder inhale 1 puff once daily lidocaine (LIDODERM) 5 % lamoTRIgine (LAMICTAL) 100 mg tablet Take 1 tablet by mouth twice daily. No current facility-administered medications on file prior to visit. Objective Exam: Vitals: As per nursing documentation Constitutional: Normal Appearance, Oriented to Time, Place and Person Head: No lacerations, no external signs of trauma Eyes: Conjunctiva clear. No discharge from the eyes Cardiovascular: Appears well-perfused Pulmonary: Non-labored respirations Abdominal: Non-distended Skin: No visible rashes or ecchymosis Psychiatric: Mood appropriate for given condition Neurological: Gross movements are limited by pain, but otherwise unremarkable Data Reviewed: Nursing note and vitals reviewed. Additional imaging reviewed as appropriate Assessment and Plan: As noted above [facility] protocol documentation / Pre-Procedure Checklist: Consent: Obtained in writing prior to procedure I had a nice discussion with the patient today about their current pain and the pathology that could be causing it We discussed different treatment options, including risks, benefits and alternatives. We agreed to proceed as previously discussed, or the plan was modified in accordance with the comments noted above Unless stated otherwise in the procedure note, the risks include but are not limited to infection, allergic reaction, increased pain, lack of therapeutic benefit, steroid reaction, nerve damage, paralysis, stroke, epidural hematoma, syncope, headache, respiratory or cardiac arrest, pneumothorax, and scar formation Once the plan was agreed upon, the patient gave written consent to proceed and was transported into the procedure room Surgical/Procedure pause or ?Time Out?: Time Out was led by the physician in the procedure room, with the patient and all staff present and participating The following information was verified during the Time Out process: Patient name, patient date of , procedure site (marked), laterality, anticoagulants and allergies Procedure: (more content not included)...[facility]08-06-2024 Nurse Note* Minna Sandoval LPN - 10/08/2023 12:52 PM EDT Procedure to be performed: Caudal Epidural Steroid Injection Patient was walked from exam room to procedure room and assisted onto the procedure tablePatient s procedure was performed in an [facility] Procedure room. Pause completed at each level by provider to verify correct level and laterality placement Pressure was applied to patient s injection site(s) and bleeding was minimal. Patient had no complaint of shortness of breath, dizziness, headache, numbness, tingling, weakness or complications from procedure. Patient was assisted from the procedure table and walked back to exam room. Patient was advised a clinician will be to obtain another set of vitals. Time Out: 1303 Confirmed patient name, date of , procedure site, laterality, and allergies Procedure Start: 1306 Procedure End: 1314 [facility]08-[facility] Instructions* Patient Instructions* Ny Lea LPN - 10/08/2023 12:47 PM EDT PROCEDURE DISCHARGE INSTRUCTIONS 10/08/2023 Db Doan 1970 Physician: Jocelyne Albert MD Procedure: Caudal Epidural Steroid Injection Post Procedure Instructions: If sedation not given, no driving for 3 hours after the procedure., Rest the day of the procedure.,You may resume normal activities the day after the procedure, as tolerated., Pain should gradually subside over the next 2-3 weeks., Avoid movements that may aggravate pain., Apply cold compresses toinjection site if needed., If medically acceptable, take over the counter anti-inflammatories such as ibuprofen or Aleve if needed for post procedure discomfort., and No hot baths, hot tubs or hot compresses for 24 hours. If you have any of the following signs or symptoms, please call our office at Fever and/or chills Swelling and/or drainage from injection site New pain that is different than your normal pain (other than soreness at the site of the procedure) Stiff neck Shortness of breath Severe increase in pain Motor dysfunctions, such as difficulty walking, bowel or bladder dysfunction and/or incontinence Headache that is severe, light sensitive or develops when changing positions (positional headache) Nausea and/or vomiting accompanied by headache that started 24-48 hours after the procedure If you have any emergent concerns, please call 911 or go to your local emergency room. Please also contact our office to let us know you will be seeking emergency care and why. documented in this [facility] NoteHNO ID: [id number] Author: LETI ABRAHAM LPN Service: ? Author Type: LICENSED NURSE Type: Progress Notes Filed: 10/08/2023 13:51 Note Text: Review of Systems Constitutional: Positive for activity change. Negative for chills, fever and unexpected weight change. Genitourinary: Positive for difficulty urinating. Musculoskeletal: Positive for arthralgias, back pain, gait problem, joint swelling and myalgias. Negative for neck pain and neck stiffness. Neurological: Positive for weakness, numbness and headaches. Psychiatric/Behavioral: Positive for dysphoric mood and sleep disturbance. Negative for suicidal ideas. The patient is nervous/anxious.[facility]08-06-[facility] Nurse Note* Leti Abraham LPN - 10/08/2023 12:40 PM EDT Tower Climber's Name: ISIAH Are you on a blood thinner: NO If yes, is a hold required: NO Last dose of blood thinner: NO INR Result today: NO Do you require a Lovenox bridge:NO Are you a diabetic:NO Are you/or could you be : NO Are you taking Xanax for the procedure: NO Are you currently on a steroid? NO Are you currently on an antibiotic: NO Have you had a COVID-19 vaccine in the last 14 days Or are you scheduled to receive one? NO [facility]07-29-[facility]24 History and physical note Author TOD [facility] September 30, 2023 4:39pm Note Date/Time September 30, 2023 3:29 pm DB DOAN Female [id number] Attending provider: DEANDRE BURGER [id number] Shakeel Saavedra 1970 53 DOS: 09/30/23 Hx/Exam - History of Present Illness Chief Complaint: BACK PAIN Location: Lower Symptom Duration: Several Symptom Duration: Week(s) Onset of Symptoms: Acute on chronic Intensity: moderate Quality: Pain Episode Frequency: constant Additional Comments: Patient has a history of chronic back pain. She complains of lower back pain that radiates down the left lower extremity. She states she does not have any ligaments in her ankle she stepped in a pothole twisting her ankle complains of ankle and foot pain. Denies any numbness or saddle paresthesias denies bowel orbladder incontinence denies IV drug use. No fever or chills. - Review of Systems All Other Systems: Pertinent Positives in HPI, All Other Systems Negative - Past Medical History ED PMH: Yes Anxiety, Yes Arthritis, Yes Depression, Yes Seizures - Past Surgical History Surgical History: Yes (X 2), Yes Hernia Repair (LT INGUINAL) - Social History Smoking Status: Current every day smoker Hx Alcohol Use: No - Family History Family/Social History Related to Chief Complaint: Denies - Physical Exam Other Exam Findings: Physical Exam General Appearance: awake, alert, no apparent distress Eyes: PERRL, EOMI, conjunctivae clear, no discharge, no scleral icterus Head, Ears, Nose, and Throat: TMs normal, pharynx normal, EAC normal, mucous membranes moist, nares clear, mastoid non-tender Neck: supple, non-tender, no stridor, no masses, no bony tenderness, full ROM Respiratory: lungs clear, no wheezes/rhonchi/rales, no respiratory distress, no accessory muscle use, chest non-tender Cardiovascular: regular rate, rhythm, no murmur Abdomen/GI: non tender, soft, non-distended, normal bowel sounds, no organomegaly, no pulsatile mass, no peritoneal signs Back: no CVA tenderness, no vertebral tenderness, normal ROM, There are equal and adequate pedal pulses and posterior tibialis pulses. Good strength the hallux longus bilaterally. DTRs 2+/4 in the bilateral lower extremities withoutfocal neurological deficits. Straight leg test is negative. Tender in the bilateral paraspinal musculature lumbar spine with radiculopathy down the left lower extremity. Extremity: Tender to the lateral portion of the left foot and lateral malleolus. Achilles tendon intact neurovascular exam intact compartments are soft Neurologic: no motor/sensory deficits, normal gait, normal strength, normal sensation, speech clear/fluent, [employer] II-XII intact Psychiatric: oriented x3, calm, normal affect Skin Exam: warm/dry, normal color - Source of History Source of History: Nursing Notes/Vital Signs/Triage Reviewed and Agree Source of History: Old Medical Records Reviewed Note(s) - Physician Notes Additional Notes, See Orders for Details: 09/30/23 14:44 MEDICAL DECISION MAKING Number and Complexity of Problems Differential Diagnosis: [X]-Fracture, sprain, strain, contusion, discitis, lumbar radiculopathy, sciatica neuritis MDM Data External documents reviewed: [X]-records reviewed and nothing relevant to todays visit My EKG Interpretation: [See Note if applicable] My CT Interpretation: [Interpreted by radiology if applicable] My X-ray Interpretation: [Interpreted by radiology if applicable] My Ultrasound Interpretation: [Interpreted by radiology if applicable] Decision rules/scored evaluated: [] Tests considered but not ordered: [] Discussed with: [] Treatment and Disposition ED Course: [X]-see below Shared decision making: [X]-patient and or parent/Guardian agreeable with treatment plan Social determinants: [X]-none Code status: [X]-full Patient is giving pain medication here. Records were reviewed. She has been seen in the emergency department multiple times for chronic back issues. She has an extensive OARRS history 09/30/23 14:45 09/30/23 14:46 She assures me that she has a ride home. I have reservations of prescribing scheduled medications for her and I will not prescribe any narcotic pain medicines given her past ER visit history and given the fact that her OARRS report is significant. 09/30/23 15:34 FOOT-LEFT MIN 3 VIEWS Dept: RADIOLOGY EXAMINATION: THREE XRAY VIEWS OF THE LEFT FOOT09/30/2023 3:16 pm COMPARISON: None. HISTORY: ORDERING SYSTEM PROVIDED HISTORY: TECHNOLOGIST PROVIDED HISTORY: Reason for Exam: PAIN FINDINGS: No acute fracture dislocation or destructive bony process. No evidence of degenerative or erosive arthritic changes. Soft tissues are normal. IMPRESSION: No acute bony abnormality. Electronically signed By [employer] 09/30/2023 3:18:56 PM EST THREE XRAY VIEWS OF THE LEFT ANKLE09/30/2023 3:15 pm COMPARISON: None. HISTORY: ORDERING SYSTEM PROVIDED HISTORY: TECHNOLOGIST PROVIDED HISTORY: Reason for Exam: PAIN FINDINGS: There is no acute fracture dislocation or ankle joint effusion. Ankle mortise is symmetric and the talar dome is smooth in contour. There is a corticated bony density measuring approximately 0.7 cm below the lateral malleolus representing either accessory ossicle or sequela from prior trauma. There is no soft tissue swelling. There is no ankle joint effusion. IMPRESSION: 1. No acute bony abnormality or ankle joint effusion. Electronically signed By [employer] 09/30/2023 3:17:49 PM EST 09/30/23 15:37 LUMBAR SPINE W/O CONTRAST Dept: COMPUTED TOMOGRAPHY EXAMINATION: CT OF THE LUMBAR SPINE WITHOUT CONTRAST 09/30/2023 3:19 pm TECHNIQUE: CT of the lumbar spine was performed without the administration of intravenous contrast. Multiplanar reformatted images are provided for review. Adjustment of mA and/or kV according to patient size was utilized. Automated exposure control, iterative reconstruction, and/or weight based adjustment of the mA/kV was utilized to reduce the radiation dose to as low as reasonably achievable. COMPARISON: CT lumbar spine 12/02/2022. HISTORY: ORDERING SYSTEM PROVIDED HISTORY: TECHNOLOGIST PROVIDED HISTORY: Reason for Exam: fall FINDINGS: Visualized lung bases are clear. Lumbar vertebra are intact with normal height and alignment. Disc spaces are well preserved. Spinal canal volume is normal. The posterior elements align normally with no appreciable degenerative facet arthritic changes or spondylolysis. The sacrum is intact. There is no gross lumbar disc herniation. Bilateral lumbar neural foramina are widely patent. IMPRESSION: 1. No acute cervical spine fracture or malalignment. 2. No gross evidence of lumbar disc herniation. 3. No evidence of acute posttraumatic spondylolysis. Electronically signed By [employer] 09/30/2023 3:33:35 PM EST Is discharged home. Return if worse. Discharged in stable condition EKG - EKG EKG Interpretation: Not Applicable Discharge Screen - Discharge Discharge Problem: Low back pain with sciatica, Chronic low back pain, Left ankle sprain Disposition: HOME/SELF CARE Condition: Stable Instructions: Managing Chronic Low Back Pain Prescriptions: Lidocaine [Lidocaine Patch 5%] 5 % EX Q12HR #4 pad Transmission Status: Pending to [facility] #[id number] Methylprednisolone [Medrol Dosepak] 4 mg PO ASDIR #1 tab Transmission Status: Pending to [facility] #[id number] TiZANidine HCL [Zanaflex] 4 mg PO TID PRN PRN #20 tab PRN Reason: Transmission Status: Pending to [facility] #[id number] Referrals: provider (Unknown),Unlisted [Primary Care Provider] - 2-3 Days <Electronically signed by Shakeel Saavedra > Dictated By: MLAIA ZIMMERMAN Dictated Date/Time:09/30/23 1429 Electronically Signed Date/Time: 09/30/23 1539 [facility] Work Phone: [phone] 602-194607-28-2024 Hospital Discharge instructions* Discharge Instructions* Ron Nuñez MD - 09/29/2023 1:01 PM EDT Thank you for the opportunity to serve in your medical care today. Please be sure to take your prescribed medication as directed. Follow up with your doctor is critical for optimal healing. Should you have any new or worsening symptoms, please return to the Emergency Department for further work-up and evaluation. Leaving Against Medical Advice Discharge against medical advice means that you choose to leave the hospital before your caregiver recommends that you do. Your caregiver may still need to diagnose or treat your condition or your treatment may not be complete. INSTRUCTIONS: contact your doctor or the provider assigned on your instructions as soon as possibleto arrange follow-up. Risks: Risks of leaving the hospital before your caregivers recommend include the following: Your condition may cause other health problems if not treated properly including disability or .. You may need to be admitted to the hospital again for the same condition. Your condition could become life-threatening. * Attachments The following attachments cannot be sent through Care Everywhere. * Metatarsal Fracture (Malaysian) * Back Pain (Malaysian) [facility] NoteHNO ID: [id number] Author: BELLO LIM DC Service: ? Author Type: Chiropractor Type: Progress Notes Filed: 09/20/2023 08:57 Note Text: Chiropractor Progress/Procedure Note Db Doan is a 53 year old female who presents for Chiropractic follow up for Low Back Pain acu 04/18 mp mkf Have you noticed any improvement since your last visit? Patient states she had less pain for about a day. Has high pain today due to helping her daughter move. Have you done any home exercises that Dr. Lim gave you? None What is your response to the home exercises? N/A What aggravates your pain? Non specific ADLs, chores, lifting What makes your pain better? Chiro care Current pain level? 11/11 How low has your pain level been on the pain scale since your last visit? 07/11 How high has your pain level been on the pain scale since your last visit? 12/11. Since your last visit with Dr. Lim have you had any Images or injections? no REVIEW OF SYSTEMS: The patient reports arm or leg weakness and numbness or tingling. PHYSICAL EXAM: The patient is alert and oriented in no acute distress. There is moderate hypertonicity through the cervical paraspinal muscles, thoracic paraspinal muscles, and lumbar paraspinal muscles. Range of motion: improved Pain on extension. Motor Strength: reduced Neurovascular intact. Orthopedic testing: N/A. Spinal segmental dysfunction: Cervical, Lumbar, Thoracic, and SI The patient is alert and oriented in no acute distress. I have confirmed and edited as necessary the HPI and ROS obtained by others. IMPRESSION AND PLAN: (M54.50, G89.29) Chronic bilateral low back pain without sciatica (primary encounter diagnosis) (M99.01) Segmental and somatic dysfunction of cervical region (M99.05) Segmental and somatic dysfunction of pelvic region (M99.04) Segmental and somatic dysfunction of sacral region No orders found for this visit on 09/19/23. Treatments: Acupuncture: 38 minutes, lumbar spine, needles re-inserted every 15 minutes. Manipulation/ART : C4-5 / T5-7 / L3: cervical spine, sacral, and pelvic. Return: 1 time, 4 weeks Patient responded well, instructed to call with problems or concerns, responded well to all treatments. I personally performed treatments/procedures listed. Time in: 12:37 Time out: 140 Dr. Bello Lim, [facility]07-18-2024 History of Present illness Narrative* Bello Lim, DC - 09/19/2023 12:37 PM EDT Chiropractor Progress/Procedure Note Db Doan is a 53 year old female who presents for Chiropractic follow up for Low Back Pain acu 04/18 mp mkf Have you noticed any improvement since your last visit? Patient states she had less pain for about a day. Has high pain today due to helping her daughter move. Have you done any home exercises that Dr. Lim gave you? None What is your response to the home exercises? N/A What aggravates your pain? Non specific ADLs, chores, lifting What makes your pain better? Chiro care Current pain level? 11/11 How low has your pain level been on the pain scale since your last visit? 07/11 How high has your pain level been on the pain scale since your last visit? 12/11. Since your last visit with Dr. Lim have you had any Images or injections? no REVIEW OF SYSTEMS: The patient reports arm or leg weakness and numbness or tingling. PHYSICAL EXAM: The patient is alert and oriented in no acute distress. There is moderate hypertonicity through thecervical paraspinal muscles, thoracic paraspinal muscles, and lumbar paraspinal muscles. Range of motion: improved Pain on extension. Motor Strength: reduced Neurovascular intact. Orthopedic testing:N/A. Spinal segmental dysfunction: Cervical, Lumbar, Thoracic, and SI The patient is alert and oriented in no acute distress. I have confirmed and edited as necessary the HPI and ROS obtained by others. IMPRESSION & PLAN: (M54.50, G89.29) Chronic bilateral low back pain without sciatica (primary encounter diagnosis) (M99.01) Segmental and somatic dysfunction of cervical region (M99.05) Segmental and somatic dysfunction of pelvic region (M99.04) Segmental and somatic dysfunction of sacral region No orders found for this visit on 09/19/23. Treatments: Acupuncture: 38 minutes, lumbar spine, needles re-inserted every 15 minutes. Manipulation/ART : C4-5 / T5-7 / L3: cervical spine, sacral, and pelvic. Return: 1 time, 4 weeks Patient responded well, instructed to call with problems or concerns, responded well to all treatments. I personally performed treatments/procedures listed. Time in: 12:37 Time out: 140 Dr. Bello Lim DC [facility] Discharge instructions* Discharge Instructions* Jatin Davis PA-C - 09/15/2023 11:04 AM EDT Please follow-up with your primary care provider 1 to 2 days, or return to the emergency departmentimmediately with any worsening symptoms. If any medications were prescribed please take them as instructed. * Attachments The following attachments cannot be sent through Care Everywhere. * Coccyx Injury Discharge Instructions (Malaysian) [facility] Work Phone: 1(300) 465-981707-14-2024 Emergency department Note* Jatin Davis PA-C - 09/15/2023 9:24 AM EDT EMERGENCY MEDICINE EVALUATION NOTE History of Present Illness Chief Complaint: Chief Complaint Patient presents with Tailbone Pain Pt had fractured her tailbone in the past. Pt saw a chiropractor on 09/13/23 and afterwards had fallen on her tailbone on a curb later that same night. Bowel and bladder wnl and pt able to ambulate. Earache Bilateral ear pain, started 09/12/23. HPI: Db Doan is a 53 y.o. female presents with a chief complaint of tailbone pain. Patient reports she had a fall on 09/13/2023. She reports that she was at the chiropractor and when she was walking out she had some pain and low bit of wobbliness. She states that during that time she fell down striking her tailbone off of a curb. Patient reports that she has been taking lkoo-vwr-uhapzya meds but nothing is controlling her pain at home. She came in for second opinion and reevaluation. Patient reports that she is currently starting in pain management next week and going to the chiropractor but the pain was acute so she came in for evaluation. She denies any loss of bowel or bladder function. She denies any saddle paresthesias. Patient states she did not strike her head during the fall. Should be noted patient mentions throughout interview that there is someone who is filling opiate medications under her name and she is requesting Percocet by name and several times throughout interview. Patient was reported she did have a slight earache. She states that her mother looked in her ear and was concerned that she had something in the ear that she would like to have that evaluated aswell. Previous History Past Medical History: Diagnosis Date Rotator cuff disorder History reviewed. No pertinent surgical history. Social History Tobacco Use Smoking status: Some Days Types: Cigarettes Smokeless tobacco: Never Vaping Use Vaping status: Never Used Substance Use Topics Alcohol use: Not Currently Drug use: Never No family history on file. No Known Allergies Current Outpatient Medications Medication Instructions acetaminophen (TYLENOL) 650 mg, oral, Every 6 hours PRN cyclobenzaprine (FEXMID) 7.5 mg, oral, 3 times daily PRN cyclobenzaprine (FLEXERIL) 10 mg, oral, 3 times daily PRN DULoxetine (CYMBALTA) 60 mg, oral, Daily RT fcabnwyqmtm-uojfvffyj-alxddgaj (TRELEGY-ELLIPTA) 200-62.5-25 mcg blister with device 1 puff, inhalation, Daily lamoTRIgine (LAMICTAL) 150 mg, oral, Daily RT naproxen (NAPROSYN) 500 mg, oral, Every 12 hours naproxen (NAPROSYN) 500 mg, oral, 2 times daily predniSONE (Deltasone) 10 mg tablet Take three tablets orally day 1-3, two tablets day 4-6, and onetablet day 7-9 Physical Exam Appearance: Alert, oriented , cooperative, in no acute distress. Skin: Abrasion over left upper buttock. Dry skin, no lesions, rash, petechiae or purpura. Eyes: PERRLA, EOMs intact, Conjunctiva pink ENT: Hearing grossly intact. Pharynx clear, uvula midline. Bilateral tympanic membranes within normal limits, no foreign body in ears, no cerumen impaction noted. Neck: Supple. Trachea at midline. Pulmonary: Clear bilaterally. No rales, rhonchi or wheezing. No accessory muscle use or stridor. Cardiac: Normal rate and rhythm without murmur Abdomen: Soft, nontender, active bowel sounds. Musculoskeletal: Full range of motion. Patient able to ambulate around room without difficulty. Shehas diffuse tenderness in the left upper buttock area. No midline C, T, or L-spine tenderness. Neurovascular tact in bilateral lower extremities. Neurological:Cranial nerves II through XII are grossly intact, normal sensation, no weakness, no focal findings identified. Results Labs Reviewed - No data to display XR sacrum coccyx 2+ views Final Result No acute bony abnormalities. No change since the prior exam MACRO: None Signed by: Kailee Leach 09/15/2023 10:47 AM Dictation workstation: [id number] ED Course & Medical Decision Making Medications tiZANidine (Zanaflex) tablet 4 mg (4 mg oral Given 09/15/23 1024) ibuprofen tablet 400 mg (400 mg oral Given 09/15/23 1025) Heart Rate: [98] Temperature: [36.3 C (97.4 F)] Respirations: [17] BP: (137)/(76) Height: [170.2 cm (5' 7)] Weight: [63.5 kg (140 lb)] Pulse Ox: [100 %] ED Course as of 09/15/23 1104 Sun Sep 15, 2023 0948 During patient's interview I did have some suspicion for narcotic seeking, after review of patient's OARRS report and looking at her listed home address. It appears that she is going in about a 2-hour radius from her home address to receive opiate pain medications. This is the patient's 14th visit since August 02 for complaints of low back pain. With 6 of those visits being within a less than 48 hours pain at various locations from [facility] to [facility] with multiple hospitals on the route in between. [CJ] 1101 Updated patient on the results of her x-ray there is no acute fracture. Patient once again asked for Percocet here and I told her I did not feel comfortable prescribing her any opiate pain medication based on her history and her OARRS report. At this time patient be discharged home. She was offered muscle relaxants she states he does not want she will get them filled tomorrow. [CJ] ED Course User Index [CJ] Jatin Davis PA-C Diagnoses as of 09/15/23 1104 Sacral pain Left ear pain Procedures Procedures Diagnosis 1. Sacral pain 2. Left ear pain Disposition Discharged ED Prescriptions None Disclaimer: This note was dictated by speech recognition. Minor errors in fiscal accountant may be present. Please call if questions. Jatin Davis PA-C 09/15/23 1104 documented in this [facility] Work Phone: 1(585) 974-574707-14-2024 Physician Emergency department Note* Jatin Davis PA-C - 09/15/2023 9:24 AM EDT EMERGENCY MEDICINE EVALUATION NOTE History of Present Illness Chief Complaint: Chief Complaint Patient presents with Tailbone Pain Pt had fractured her tailbone in the past. Pt saw a chiropractor on 09/13/23 and afterwards had fallen on her tailbone on a curb later that same night. Bowel and bladder wnl and pt able to ambulate. Earache Bilateral ear pain, started 09/12/23. HPI: Db Doan is a 53 y.o. female presents with a chief complaint of tailbone pain. Patient reports she had a fall on 09/13/2023. She reports that she was at the chiropractor and when she was walking out she had some pain and low bit of wobbliness. She states that during that time she fell down striking her tailbone off of a curb. Patient reports that she has been taking fmqd-bua-gqcphdg meds but nothing is controlling her pain at home. She came in for second opinion and reevaluation. Patient reports that she is currently starting in pain management next week and going to the chiropractor but the pain was acute so she came in for evaluation. She denies any loss of bowel or bladder function. She denies any saddle paresthesias. Patient states she did not strike her head during the fall. Should be noted patient mentions throughout interview that there is someone who is filling opiate medications under her name and she is requesting Percocet by name and several times throughout interview. Patient was reported she did have a slight earache. She states that her mother looked in her ear and was concerned that she had something in the ear that she would like to have that evaluated aswell. Previous History Past Medical History: Diagnosis Date Rotator cuff disorder History reviewed. No pertinent surgical history. Social History Tobacco Use Smoking status: Some Days Types: Cigarettes Smokeless tobacco: Never Vaping Use Vaping status: Never Used Substance Use Topics Alcohol use: Not Currently Drug use: Never No family history on file. No Known Allergies Current Outpatient Medications Medication Instructions acetaminophen (TYLENOL) 650 mg, oral, Every 6 hours PRN cyclobenzaprine (FEXMID) 7.5 mg, oral, 3 times daily PRN cyclobenzaprine (FLEXERIL) 10 mg, oral, 3 times daily PRN DULoxetine (CYMBALTA) 60 mg, oral, Daily RT tpqlxoapkon-rkjxsxnnk-lfrscude (TRELEGY-ELLIPTA) 200-62.5-25 mcg blister with device 1 puff, inhalation, Daily lamoTRIgine (LAMICTAL) 150 mg, oral, Daily RT naproxen (NAPROSYN) 500 mg, oral, Every 12 hours naproxen (NAPROSYN) 500 mg, oral, 2 times daily predniSONE (Deltasone) 10 mg tablet Take three tablets orally day 1-3, two tablets day 4-6, and onetablet day 7-9 Physical Exam Appearance: Alert, oriented , cooperative, in no acute distress. Skin: Abrasion over left upper buttock. Dry skin, no lesions, rash, petechiae or purpura. Eyes: PERRLA, EOMs intact, Conjunctiva pink ENT: Hearing grossly intact. Pharynx clear, uvula midline. Bilateral tympanic membranes within normal limits, no foreign body in ears, no cerumen impaction noted. Neck: Supple. Trachea at midline. Pulmonary: Clear bilaterally. No rales, rhonchi or wheezing. No accessory muscle use or stridor. Cardiac: Normal rate and rhythm without murmur Abdomen: Soft, nontender, active bowel sounds. Musculoskeletal: Full range of motion. Patient able to ambulate around room without difficulty. Shehas diffuse tenderness in the left upper buttock area. No midline C, T, or L-spine tenderness. Neurovascular tact in bilateral lower extremities. Neurological:Cranial nerves II through XII are grossly intact, normal sensation, no weakness, no focal findings identified. Results Labs Reviewed - No data to display XR sacrum coccyx 2+ views Final Result No acute bony abnormalities. No change since the prior exam MACRO: None Signed by: Kailee Leach 09/15/2023 10:47 AM Dictation workstation: [id number] ED Course & Medical Decision Making Medications tiZANidine (Zanaflex) tablet 4 mg (4 mg oral Given 09/15/23 1024) ibuprofen tablet 400 mg (400 mg oral Given 09/15/23 1025) Heart Rate: [98] Temperature: [36.3 C (97.4 F)] Respirations: [17] BP: (137)/(76) Height: [170.2 cm (5' 7)] Weight: [63.5 kg (140 lb)] Pulse Ox: [100 %] ED Course as of 09/15/23 1104 Sun Sep 15, 2023 0948 During patient's interview I did have some suspicion for narcotic seeking, after review of patient's OARRS report and looking at her listed home address. It appears that she is going in about a 2-hour radius from her home address to receive opiate pain medications. This is the patient's visit since August 02 for complaints of low back pain. With 6 of those visits being within a less than 48 hours pain at various locations from [facility] to [facility] with multiple hospitals on the route in between. [CJ] 1101 Updated patient on the results of her x-ray there is no acute fracture. Patient once again asked for Percocet here and I told her I did not feel comfortable prescribing her any opiate pain medication based on her history and her OARRS report. At this time patient be discharged home. She was offered muscle relaxants she states he does not want she will get them filled tomorrow. [CJ] ED Course User Index [CJ] Jatin Davis PA-C Diagnoses as of 09/15/23 1104 Sacral pain Left ear pain Procedures Procedures Diagnosis 1. Sacral pain 2. Left ear pain Disposition Discharged ED Prescriptions None Disclaimer: This note was dictated by speech recognition. Minor errors in fiscal accountant may be present. Please call if questions. Jatin Davis PA-C 09/15/23 1104 [facility] Work Phone: 1([phone]) 983-693707-09-2024 Telephone encounter Note* Telephone Encounter - Db Chavez - 09/10/2023 10:41 AM EDT ----- Message from Jase Hemphill sent at 09/10/2023 10:08 AM EDT ----- Regarding: Spine & Pain / Bello Lim DC / Cancellation of Visits on 09/09 and 09/11 Patient: Db Doan Date of : 1970 Primary Care Provider: Maria Elena Montalvo MD Patient has been identified by name and Date of (Y/N): y Patient: Db Doan Date of : 1970 Provider for this encounter: Maria Elena Montalvo MD Reason for the call/escalation: Pt called in to cancel two visits with Dr Lim: one for today 09/09 and another on 09/11. Pt stated they would not need to reschedule visits as they already have other visits scheduled with Dr Lim. Was Patient Referred to [facility]/Seek Emergency Treatment (Y/N): n Did Patient Agree (Y/N): n Was An Attempt Made To Transfer The Patient To The Office (Y/N): n Were You Able To Reach Someone At The Office (Y/N): n If Yes - Patient Was Transferred To (Caregivers Name): n If No - Which [facility] [employer] Salesperson Did You Speak With Regarding This Patient: n Was an appointment scheduled (Y/N): n Reason patient was requesting visit (RFV/signs and symptoms/diagnosis) : acu and manip Person calling if other than patient: self Return call to if other than patient: n Best contact number: [phone] Thank you, Jase Hemphill September 10, 2023 10:08 AM [facility]07-09-2024 Miscellaneous Notes* Telephone Encounter - Db Chavez - 09/10/2023 10:41 AM EDT ----- Message from Jase Hemphill sent at 09/10/2023 10:08 AM EDT ----- Regarding: Spine & Pain / Bello Lim DC / Cancellation of Visits on 09/09 and 09/11 Patient: Db Doan Date of : 1970 Primary Care Provider: Maria Elena Montalvo MD Patient has been identified by name and Date of (Y/N): y Patient: Db Doan Date of : 1970 Provider for this encounter: Maria Elena Montalvo MD Reason for the call/escalation: Pt called in to cancel two visits with Dr Lim: one for 09/09 and another on 09/11. Pt stated they would not need to reschedule visits as they already have other visits scheduled with Dr Lim. Was Patient Referred to [facility]/Seek Emergency Treatment (Y/N): n Did Patient Agree (Y/N): n Was An Attempt Made To Transfer The Patient To The Office (Y/N): n Were You Able To Reach Someone At The Office (Y/N): n If Yes - Patient Was Transferred To (Caregivers Name): n If No - Which [facility] [employer] Salesperson Did You Speak With Regarding This Patient: n Was an appointment scheduled (Y/N): n Reason patient was requesting visit (RFV/signs and symptoms/diagnosis) : acu and manip Person calling if other than patient: self Return call to if other than patient: n Best contact number: [phone] Thank you, Jase Hemphill September 10, 2023 10:08 AM documented in [facility] Hospital Discharge instructions* Discharge Instructions* Shruthi Osborn PA-C - 09/06/2023 7:27 AM EDT Referral is entered for orthopedic spine clinic as well as pain management clinic. If you have not heard from them call: Orthopedic spine - [phone] Pain management - [phone] documented in this [facility] Work Phone: 1(968) 370-758707-05-2024 Emergency department Note* Shruthi Osborn PA-C - 09/06/2023 6:31 AM EDT HPI: 53-year-old female with history of ankylosing spondylitis, chronic back pain presenting for acute on chronic back pain. States that she fell on her back yesterday which worsened since falling on her lower back mostly fireworks yesterday. States the pain is constant and severe. States she is having a hard time getting good follow-up care at [facility] pain and spine clinic. Was referred to a chiropractorwho she feels worsened her condition. Has not followed up back with the spine clinic. States her PCP is not able to give her narcotic pain medications. Denies any change in quality or severity to herpain. States the pain is always in her spine diffusely worse in her lower spine. Denies any bowel or bladder incontinence. Denies any trouble walking. Denies any urinary complaints including frequency urgency dysuria or hematuria. Physical Exam: GEN: Vitals noted. NAD EYES: EOMs grossly intact, anicteric sclera KARTHIK: Mucosa moist. NECK: Supple. CARD: RRR PULMONARY: Moving air well. Clear all lung whitfield. ABDOMEN: Soft, no guarding, no rigidity. Nontender. NABS Back: Diffuse tenderness poorly localized EXTREMITIES: Full ROM, no pitting edema, SKIN: Intact, warm and dry NEURO: Alert and oriented x 3, speech is clear, no obvious deficits noted. Intact sensation and strength in lower extremities, nonantalgic gait, intact deep tendon reflexes MDM: 53-year-old female presenting for acute on chronic back pain. On exam she is in obvious discomfort from her chronic pains. Vital signs stable. Neurologically intact with no concerns for spinal cord pathology at this time. No indication for advanced imaging. She does have largest concerns about how to navigate the medical system with her chronic pain condition. I did have lengthy discussion with her about steps going forward in managing her pain. She is recommended to follow up with her [facility] painand spine clinic provider as they referred her to chiropractor and she feels chiropractor worsened her condition. Alternatively she would like to seek a second opinion here at which I feel is reasonable. Referral is entered for orthospine and pain management. She is given a couple days of Percocet as she does not have any active prescriptions in her OARRS reviewed. Will give her dose now of Percocet. Diagnoses as of 09/06/23 0729 Ankylosing spondylitis, unspecified site of spine (Multi) Chronic midline back pain, unspecified back location No orders to display Labs Reviewed - No data to display This note was dictated using a speech recognition program. While an attempt was made at proof reading to minimize errors, minor errors in fiscal accountant may be present call for questions. Shruthi Osborn PA-C 09/06/23 0733 * Agnieszka Martin RN - 09/06/2023 6:31 AM EDT Pt. Reports that she sustained an injury to her tailbone last fall and felt as if it has never healed. Patient was watching fireworks last night when she fell on her butt and has been having pain since then. Took ibuprofen and toradol at home without relief. [facility] Work Phone: 1(437) 928-608707-05-2024 Emergency department Triage note* Agnieszka Martin RN - 09/06/2023 6:31 AM EDT Pt. Reports that she sustained an injury to her tailbone last fall and felt as if it has never healed. Patient was watching fireworks last night when she fell on her butt and has been having pain since then. Took ibuprofen and toradol at home without relief. [facility]07-05-2024 Physician Emergency department Note * Shruthi Osborn PA-C - 09/06/2023 6:31 AM EDT HPI: 53-year-old female with history of ankylosing spondylitis, chronic back pain presenting for acute on chronic back pain. States that she fell on her back yesterday which worsened since falling on her lower back mostly fireworks yesterday. States the pain is constant and severe. States she is having a hard time getting good follow-up care at [facility] pain and spine clinic. Was referred to a chiropractorwho she feels worsened her condition. Has not followed up back with the spine clinic. States her PCP is not able to give her narcotic pain medications. Denies any change in quality or severity to herpain. States the pain is always in her spine diffusely worse in her lower spine. Denies any bowel or bladder incontinence. Denies any trouble walking. Denies any urinary complaints including frequency urgency dysuria or hematuria. Physical Exam: GEN: Vitals noted. NAD EYES: EOMs grossly intact, anicteric sclera KARTHIK: Mucosa moist. NECK: Supple. CARD: RRR PULMONARY: Moving air well. Clear all lung whitfield. ABDOMEN: Soft, no guarding, no rigidity. Nontender. NABS Back: Diffuse tenderness poorly localized EXTREMITIES: Full ROM, no pitting edema, SKIN: Intact, warm and dry NEURO: Alert and oriented x 3, speech is clear, no obvious deficits noted. Intact sensation and strength in lower extremities, nonantalgic gait, intact deep tendon reflexes MDM: 53-year-old female presenting for acute on chronic back pain. On exam she is in obvious discomfort from her chronic pains. Vital signs stable. Neurologically intact with no concerns for spinal cord pathology at this time. No indication for advanced imaging. She does have largest concerns about how to navigate the medical system with her chronic pain condition. I did have lengthy discussion with her about steps going forward in managing her pain. She is recommended to follow up with her [facility] painand spine clinic provider as they referred her to chiropractor and she feels chiropractor worsened her condition. Alternatively she would like to seek a second opinion here at which I feel is reasonable. Referral is entered for orthospine and pain management. She is given a couple days of Percocet as she does not have any active prescriptions in her OARRS reviewed. Will give her dose now of Percocet. Diagnoses as of 09/06/23 0729 Ankylosing spondylitis, unspecified site of spine (Multi) Chronic midline back pain, unspecified back location No orders to display Labs Reviewed - No data to display This note was dictated using a speech recognition program. While an attempt was made at proof reading to minimize errors, minor errors in fiscal accountant may be present call for questions. Shruthi Osborn PA-C 09/06/23 0733 [facility] Work Phone: 1(803) 290-440307-05-2024 Hospital Discharge instructions* Discharge Instructions* Jonny Xiao MD - 09/06/2023 5:54 AM EDT For pain: 2 extra strength Tylenol every 8 hours or ibuprofen 400 mg every 8 hours Always take Ibuprofen with food Consider Lidoderm patch apply as prescribed to lower back Back pain Instructions: Return to the ED if you have weakness or numbness in your arms or legs, youare unable to control your bowels or bladder, or you are unable to walk or if you have worsening pain in your back. Procedures done during this visit: None * Attachments The following attachments cannot be sent through Care Everywhere. * Chronic Pain Discharge Instructions (Malaysian) documented in this [id number] Telephone encounter Note* Telephone Encounter - Mary Ellen Cavazos - 08/27/2023 11:21 AM EDT Procedure(s) being scheduled: 1.Are you diabetic No 2. Are you on any blood thinners? No If yes, does it require a hold? No If yes, was approval letter sent? No 3. Are you taking any aspirin? No 4. Are you currently taking any antibiotics? No If yes, is it prophylactic or for treatment of an infection? No 5. Do you have any allergies to latex? No 6. Do you have any allergies to seafood or shellfish? No 7. Do you have any allergies to x-ray dye? No 8. Did the physician instruct you to take any medication prior to your procedure? No 9. Does this procedure require a charter driver? Yes If yes, has patient been notified that a charter driver is needed and must be present at check in? Yes, mom 10. Were the pre-procedure instructions explained and provided to the patient? Yes 11. Do you have a pacemaker? No 12. Do you have an internal stimulator of any kind? No If yes, please bring the remote with you to your procedure visit. 13. Have you received the COVID-19 Vaccine? Yes. If yes, date(s) received: Last done 2021 (Patient should not receive a procedure including steroids 14 days prior to their first dose of theCOVID vaccine. They should not receive any procedure containing steroids in the time frame between their 1st and 2nd doses of the COVID vaccine. They should not receive a procedure containing steroids 14 days after their 2nd dose of the COVID vaccine.) Mary Ellen Cavazos [facility]06-25-2024 Miscellaneous Notes* Telephone Encounter - Mary Ellen Cavazos - 08/27/2023 11:21 AM EDT Procedure(s) being scheduled: 1.Are you diabetic No 2. Are you on any blood thinners? No If yes, does it require a hold? No If yes, was approval letter sent? No 3. Are you taking any aspirin? No 4. Are you currently taking any antibiotics? No If yes, is it prophylactic or for treatment of an infection? No 5. Do you have any allergies to latex? No 6. Do you have any allergies to seafood or shellfish? No 7. Do you have any allergies to x-ray dye? No 8. Did the physician instruct you to take any medication prior to your procedure? No 9. Does this procedure require a charter driver? Yes If yes, has patient been notified that a charter driver is needed and must be present at check in? Yes, mom 10. Were the pre-procedure instructions explained and provided to the patient? Yes 11. Do you have a pacemaker? No 12. Do you have an internal stimulator of any kind? No If yes, please bring the remote with you to your procedure visit. 13. Have you received the COVID-19 Vaccine? Yes. If yes, date(s) received: Last done 2021 (Patient should not receive a procedure including steroids 14 days prior to their first dose of theCOVID vaccine. They should not receive any procedure containing steroids in the time frame between their 1st and 2nd doses of the COVID vaccine. They should not receive a procedure containing steroids 14 days after their 2nd dose of the COVID vaccine.) Mary Ellen Cavazos documented in this [facility]06[facility]24 NoteHNO ID: [id number] Author: BELLO LIM DC Service: ? Author Type: Chiropractor Type: Progress Notes Filed: 08/28/2023 14:10 Note Text: New Patient Chiropractor Progress Note Db Doan is a 53 year old female who presents today with complaints of neck pain and low back pain. She describes the pain as being burning, shooting, and stabbing, cramping and throbbing and rates the pain as a 10/10. The pain began 10 years ago as a result of falling. The pain is exacerbated by ADLs. Previous treatments have included none. She complains of radiation to the the left leg. She reports numbness, tingling, moreso in L leg patient believes from sciatica; electric shocks are up and down R side of back, or electric shocks. She reports catching. She reports difficulty with walking and muscle weakness. 04/02 acu 03/18 mp Az Pain Intensity 4 - The pain is very severe at the moment Personal Care (Washing/Dressing) 5 - I do not get dressed. I wash with difficult and stay in bed Lifting 2 - Pain prevents me from lifting heavy weights off the floor, but I can manage if conveniently positioned (e.g. on a table) Walking 3 - Pain prevents me from walking more than 1/4 mile Sitting 4 - Pain prevents me from sitting more than 10 minutes Standing 4 - Pain prevents me from standing more than 10 minutes Sleeping 2 - Even when I take medication I have less than 6 hours of sleep Social Life 5 - I have no social life because of pain Total Score 97 Interpretation 81% - 100% - (bed-bound or exaggerating) MEDICATIONS: Current Outpatient Medications Medication Sig gabapentin (NEURONTIN) 600 mg tablet Take 600 mg by mouth three times a day. HYDROXYZINE HCL ORAL Take by mouth once daily as needed. Unknown dosage DULoxetine (CYMBALTA) 60 mg capsule Take 1 capsule by mouth once daily for 14 days. LIDOCAINE PAIN RELIEF 4 % patch TRELEGY ELLIPTA 200-62.5-25 mcg inhalation powder inhale 1 puff once daily lidocaine (LIDODERM) 5 % lamoTRIgine (LAMICTAL) 100 mg tablet Take 1 tablet by mouth twice daily. No current facility-administered medications for this visit. REVIEW OF SYSTEMS: Constitutional: Negative for fever and chills. Eyes: Negative for blurred vision and double vision. Respiratory: Negative for shortness of breath. Cardiovascular: Negative for chest pain and leg swelling. Gastrointestinal: Negative for nausea. Genitourinary: Negative for dysuria. Neurological: Negative for tingling, POS weakness and headaches. Endo/Heme/Allergies: Does bruise/bleed easily. Psychiatric/Behavioral: Negative for suicidal ideas and substance abuse. OBSERVATION/PHYSICAL EXAM: AANDOx3 Antalgic: Flexed Bilateral DTR: 2/4 to UE and LE MOTOR : 5/5 to upper extremity and lower extremity SENSORY: Pin prick/light touch NOT intact RANGE OF MOTION: reduced HEEL WALK: WNL TOE WALK: WNL ORTHO EXAM: PROVACITIVE TESTING: SLR PALPATION: WNL Tenderness: no tenderness LEG LENGTH: N/A wnl PERIPHERAL PULSES: Palpable PERIPHERAL EDEMA: Segmental dysfunction : TLS The patient is alert and oriented in no acute distress. I have confirmed and edited as necessary the HPI and ROS obtained by others. IMPRESSION AND PLAN: (M54.50, G89.29) Chronic bilateral low back pain without sciatica (primary encounter diagnosis) (M99.01) Segmental and somatic dysfunction of cervical region (M99.05) Segmental and somatic dysfunction of pelvic region (M99.04) Segmental and somatic dysfunction of sacral region No orders found for this visit on 08/27/23. Treatments Acupunture lumbar spine, 3 units, 38 minutes and Manipulation/ART 3-4 areas,C4-5/T5-6 / L3/SI , cervical spine, sacral, and pelvic, Return: 2 times, 4 weeks Patient responded well, instructed to call with problems or concerns I personally performed treatments/procedures listed above. Time in: 948 Time out: 1100 Dr. Bello Lim [facility]06-25-2024 History of Present illness Narrative* Bello Lim P, DC - 08/27/2023 9:48 AM EDT New Patient Chiropractor Progress Note Db Doan is a 53 year old female who presents today with complaints of neck pain and low backpain. She describes the pain as being burning, shooting, and stabbing, cramping and throbbing and rates the pain as a 10/10. The pain began 10 years ago as a result of falling. The pain is exacerbated by ADLs. Previous treatments have included none. She complains of radiation to the the left leg. She reports numbness, tingling, moreso in L leg patient believes from sciatica; electric shocks are up and down R side of back, or electric shocks. She reports catching. She reports difficulty with walking and muscle weakness. 04/02 acu 03/18 mp Az Pain Intensity 4 - The pain is very severe at the moment Personal Care (Washing/Dressing) 5 - I do not get dressed. I wash with difficult and stay in bed Lifting 2 - Pain prevents me from lifting heavy weights off the floor, but I can manage if conveniently positioned (e.g. on a table) Walking 3 - Pain prevents me from walking more than 1/4 mile Sitting 4 - Pain prevents me from sitting more than 10 minutes Standing 4 - Pain prevents me from standing more than 10 minutes Sleeping 2 - Even when I take medication I have less than 6 hours of sleep Social Life 5 - I have no social life because of pain Total Score 97 Interpretation 81% - 100% - (bed-bound or exaggerating) MEDICATIONS: Current Outpatient Medications Medication Sig gabapentin (NEURONTIN) 600 mg tablet Take 600 mg by mouth three times a day. HYDROXYZINE HCL ORAL Take by mouth once daily as needed. Unknown dosage DULoxetine (CYMBALTA) 60 mg capsule Take 1 capsule by mouth once daily for 14 days. LIDOCAINE PAIN RELIEF 4 % patch TRELEGY ELLIPTA 200-62.5-25 mcg inhalation powder inhale 1 puff once daily lidocaine (LIDODERM) 5 % lamoTRIgine (LAMICTAL) 100 mg tablet Take 1 tablet by mouth twice daily. No current facility-administered medications for this visit. REVIEW OF SYSTEMS: Constitutional: Negative for fever and chills. Eyes: Negative for blurred vision and double vision. Respiratory: Negative for shortness of breath. Cardiovascular: Negative for chest pain and leg swelling. Gastrointestinal: Negative for nausea. Genitourinary: Negative for dysuria. Neurological: Negative for tingling, POS weakness and headaches. Endo/Heme/Allergies: Does bruise/bleed easily. Psychiatric/Behavioral: Negative for suicidal ideas and substance abuse. OBSERVATION/PHYSICAL EXAM: A&Ox3 Antalgic: Flexed Bilateral DTR: 2/4 to UE and LE MOTOR : 5/5 to upper extremity and lower extremity SENSORY: Pin prick/light touch NOT intact RANGE OF MOTION: reduced HEEL WALK: WNL TOE WALK: WNL ORTHO EXAM: PROVACITIVE TESTING: SLR PALPATION: WNL Tenderness: no tenderness LEG LENGTH: N/A wnl PERIPHERAL PULSES: Palpable PERIPHERAL EDEMA: Segmental dysfunction : TLS The patient is alert and oriented in no acute distress. I have confirmed and edited as necessary the HPI and ROS obtained by others. IMPRESSION & PLAN: (M54.50, G89.29) Chronic bilateral low back pain without sciatica (primary encounter diagnosis) (M99.01) Segmental and somatic dysfunction of cervical region (M99.05) Segmental and somatic dysfunction of pelvic region (M99.04) Segmental and somatic dysfunction of sacral region No orders found for this visit on 08/27/23. Treatments Acupunture lumbar spine, 3 units, 38 minutes and Manipulation/ART 3-4 areas,C4-5/T5-6 / L3/SI , cervical spine, sacral, and pelvic, Return: 2 times, 4 weeks Patient responded well, instructed to call with problems or concerns I personally performed treatments/procedures listed above. Time in: 948 Time out: 1100 Dr. Bello Lim DC documented in this [facility]06[facility] Telephone encounter Note * Telephone Encounter - Bridgette Fraser LMT - 08/27/2023 6:39 AM EDT INSURANCE CO. ID # GROUP # CO-PAY DEDUCTIBLE COINSUR. OUT OF POCKET MAX PRIOR AUTH REQU'D LIMITATIONS REFERENCE # SPOKE TO: MALVINJonatan MEDICAID [phone] [id number] - - -- - AFTER VISIT LIMIT MET 15 MP 30 ACU [id number] MARIYA C 2 XRAYS IN CALENDAR YEAR Is this a Medicare or Medicaid product? N Does this follow Medicare guidelines? N Is this a United [employer] product? N Does this require clinical submission through [employer]? N Chiropractor: Dr. Lim Contracted: Y Chiropractic benefits: In network Are the billable benefits a HARD LIMIT? NO If yes, how do we ask for more visits? Fax: Mail: Phone: Website: Ask for the [facility] department for benefits Be sure to ask: Are these supervised or unsupervised therapeutic modalities covered if billed by [facility]? CPT CODE NAME COVERED? 03500 Manual manipulations spine 1-2 Y 86372 68563 Manual manipulations spine 3-4 Manual manipulations spine 5 Y Y 75161 Manual manipulations of extremities 62015 Hot/cold packs 30269 Mechanical traction 48857 Electrical stimulation 49651 Therapeutic exercises 60585 Neuromuscular re-education 29364 60947 Dry needling 1-2 Muscles Dry needling 3-4 muscles 25328 Massage therapy 74438 Manual therapy 08411 Acupuncture < 15 minutes Y 76886 56044 14887 Acupuncture > 15 minutes Acupuncture with stim < 15 minutes Acupuncture with stim > 15 minutes Y Bridgette Fraser LMT [facility]06-25-2024 Miscellaneous Notes* Telephone Encounter - Bridgette Fraser LMT - 08/27/2023 6:39 AM EDT INSURANCE CO. ID # GROUP # CO-PAY DEDUCTIBLE COINSUR. OUT OF POCKET MAX PRIOR AUTH REQU'D LIMITATIONS REFERENCE # SPOKE TO: MALVINEYE MEDICAID [phone] [id number] - - -- - AFTER VISIT LIMIT MET 15 MP 30 ACU [id number] MARIYA C 2 XRAYS IN CALENDAR YEAR Is this a Medicare or Medicaid product? N Does this follow Medicare guidelines? N Is this a United [employer] product? N Does this require clinical submission through [employer]? N Chiropractor: Dr. Lim Contracted: Y Chiropractic benefits: In network Are the billable benefits a HARD LIMIT? NO If yes, how do we ask for more visits? Fax: Mail: Phone: Website: Ask for the [facility] department for benefits Be sure to ask: Are these supervised or unsupervised therapeutic modalities covered if billed by [facility]? CPT CODE NAME COVERED? 24240 Manual manipulations spine 1-2 Y 04228 14579 Manual manipulations spine 3-4 Manual manipulations spine 5 Y Y 68886 Manual manipulations of extremities 47070 Hot/cold packs 61116 Mechanical traction 60729 Electrical stimulation 16502 Therapeutic exercises 28514 Neuromuscular re-education 96949 Dry needling 1-2 Muscles Dry needling 3-4 muscles 48712 Massage therapy 53204 Manual therapy 35655 Acupuncture < 15 minutes Y 89348 80230 20045 Acupuncture > 15 minutes Acupuncture with stim < 15 minutes Acupuncture with stim > 15 minutes Y Bridgette Fraser LMT documented in this encounterL[facility]06-18-2024 Telephone encounter Note * Telephone Encounter - Bridgette Fraser LMT - 08/20/2023 2:58 PM EDT LVM for patient to schedule with allen Fraser LMT [facility]06-18-2024 Miscellaneous Notes* Telephone Encounter - Bridgette Fraser LMT - 08/20/2023 2:58 PM EDT LVM for patient to schedule with allen Fraser LMT documented in this encounterLancaster [facility]06-18-2024 NoteHNO ID: [id number] Author: TRISHA TENORIO APRN.TECHNICAL APPLICATIONS SPECIALIST Service: ? Author Type: Nurse Practitioner Type: Progress Notes Filed: 08/20/2023 08:14 Note Text: VIRTUAL VISIT PROGRESS NOTE This is a virtual visit using [employer] Video Visit. It required patient-provider interaction for the medical decision making as documented below. I have communicated my name and active licensure. The patient's identity and physical location were verified at the time of this visit. Either the patient or their legal advertising sales representative has been informed of the risks and benefits of -- and alternatives to -- treatment through a remote evaluation and consents to proceed with the evaluation remotely. . [facility] Today's Date: 08/07/2023 Name: Db Doan : 1970 Purpose: New Patient Evaluation Chief complaint: neck and back pain, 12/11 Referring Clinician: Self Pertinent Past Medical History: Anxiety, PTSD, depression, emphysema, migraine generalized convulsive epilepsy Pertinent Past Surgeries: None History of Present Illness (HPI): 08/20/2023 - Initial HPI (Obtained by Trisha Tenorio CNP). DURATION AND ONSET: The pain complaint has been present for approximately 10 years. She had fallen and was told she had a slipped disc. She had bilateral leg numbness and had a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 Please ask your primary doctor or pharmacist before taking any other medication not listed, including over the counter drugs, herbal medications, vitamins and or supplements as they may interact withyour home medications. What How Much When Why Instructions Last Dose New acetaminophen-oxyCODONE (Percocet 5 mg-325 mg oral tablet) 1 tab(s) by mouth Every 6 hours as needed for Pain Back pain Duration: 3 Days Printed Prescription Please take this list to your next doctor s visit. Bring all medications you take, including over the counter medications, herbals and other supplements with you to your doctor s visit. Patients and families are reminded to discard old lists and to update any records with all medication providers or retail pharmacies. Education Materials Back Care Tips Caring for your back These are things you can do to prevent a recurrence of acute back pain and to reduce symptoms from chronic back pain: Maintain a healthy weight. If you are overweight, losing weight will help most types of back pain. Exercise is an important part of recovery from most types of back pain. The muscles behind and in front of the spine support the back. This means strengthening both the back muscles and the abdominalmuscles will provide better support for your spine. Swimming and brisk walking are good overall exercises to improve your fitness level. Practice safe lifting methods (below). Practice good posture when sitting, standing and walking. Avoid prolonged sitting. This puts more stress on the lower back than standing or walking. Wear quality shoes with sufficient arch support. Foot and ankle alignment can affect back symptoms.Women should avoid wearing high heels. Therapeutic massage can help relax the back muscles without stretching them. During the first 24 to 72 hours after an acute injury or flare-up of chronic back pain, apply an ice pack to the painful area for 20 minutes and then remove it for 20 minutes, over a period of 60 to 90 minutes, or several times a day. As a safety precaution, do not use a heating pad at bedtime. Sleeping on a heating pad can lead to skin thomas or tissue damage. You can alternate ice and heat therapies. Medicines Talk to your healthcare provider before using medicines, especially if you have other medical problems or are taking other medicines. You may use acetaminophen or ibuprofen to control pain, unless your healthcare provider prescribed other pain medicine. If you have chronic conditions like diabetes, liver or kidney disease, stomach ulcers, or gastrointestinal bleeding, or are taking blood thinners, talk with your healthcare provider before taking any medicines. Be careful if you are given prescription pain medicines, narcotics, or medicine for muscle spasm. They can cause drowsiness, affect your coordination, reflexes, and judgment. Do not drive or operate heavy machinery while taking these types of medicines. Take prescription pain medicine only as prescribed by your healthcare provider. Lumbar stretch Here is a simple stretching exercise that will help relax muscle spasm and keep your back more limber. If exercise makes your back pain worse, don t do it. Lie on your back with your knees bent and both feet on the ground. Slowly raise your left knee to your chest as you flatten your lower back against the floor. Hold for 5 seconds. Relax and repeat the exercise with your right knee. Do 10 of these exercises for each leg. Safe lifting method Don t bend over at the waist to lift an object off the floor. Instead, bend your knees and hips in a squat. Keep your back and head upright Hold the object close to your body, directly in front of you. Straighten your legs to lift the object. Lower the object to the floor in the reverse fashion. If you must slide something across the floor, push it. Posture tips Sitting Sit in chairs with straight backs or low-back support. Keep your knees lower than your hips, with your feet flat on the floor. When driving, sit up straight. Adjust the seat forward so you are not leaning toward the steering wheel. A small pillow or rolled towel behind your lower back may help if you are driving long distances. Standing When standing for long periods, shift most of your weight to one leg at a time. Alternate legs every few minutes. Sleeping The best way to sleep is on your side with your knees bent. Put a low pillow under your head to support your neck in a neutral spine position. Avoid thick pillows that bend your neck to one side. Puta pillow between your legs to further relax your lower back. If you sleep on your back, put pillowsunder your knees to support your legs in a slightly flexed position. Use a firm mattress. If your mattress sags, replace it, or use a 1/2-inch plywood board under the mattress to add support. Follow-up care Follow up with your healthcare provider, or as advised. If X-rays, a CT scan or an MRI scan were taken, they will be reviewed by a radiologist. You will benotified of any new findings that may affect your care. Call 911 Call 911 if any of the following occur: Trouble breathing Confusion Very drowsy Fainting or loss of consciousness Rapid or very slow heart rate Loss of bowel or bladder control When to seek medical advice Call your healthcare provider right away if any of the following occur: Pain becomes worse or spreads to your arms or legs Weakness or numbness in one or both arms or legs Numbness in the groin area [id number] [employer]. [address] [place], [place] [id number]. All rights reserved. This information is not intended as a substitute for professional medical care. Always follow yourhealthcare professional's instructions. Additional Information VACCINATE! IT SAVES LIVES! Members of the community who have not yet received the COVID-19 vaccine and would like to receive it can visit one of [facility] vaccine clinics. There are many vaccine clinic locations within the [facility]. For locations and available times, please visit www.gettheshot.coronavirus.[place].gov/. It is important to note that some COVID mobile vaccine clinics are held outdoors and may be canceled in rainy or stormy conditions. To learn more about pediatric vaccinations (ages 5-11), we invite you to visit the [facility] webpage. https://www.[email or web address].org/pages/3128-Urqco-Ryvqtpjituc-Yqbhtjqyjv-Iewmw-Eqt stions.htmlTo learn more about the COVID-19 vaccine, we invite you to visit the CDC website for a list of frequently asked questions. https://www.cdc.gov/coronavirus/2019-ncov/vaccines/faq.html [facility] [employer] Patient Portal Access Instructions: Stay connected with your healthcare team and access your personal medical information anytime with the [employer] Patient Portal. If you would like a full copy of your medical records please contact the [facility] Medical Records Department Saturday through Saturday between 8a.m. and 4:30p.m. Please follow the directions below to access the portal: 1.Access the email account you provided upon registration to the [facility].2.Look for an invitation email from [facility].3.Open the email and access the invitation link: [facility] to [facility]4.Fill in the required whitfield to create your account. Sign into www.[employer] with your username and password that you created in the above steps to stay up to date. You can then view a summary of results, a summary of your visits, and the ability to download your summaries to your computer or send the information securely to a physician. Remember that your healthcare information is confidential, so carefully consider who you will allow to register on the [facility] Patient Portal for access to your information. You can also access the [employer] Patient Portal on the in2apps. Simply click on Health Records under HealthData and then click on the [employer] logo. HOW TO SAFELY DISPOSE OF PRESCRIPTION MEDICATIONS Please use one of the following methods to safely dispose of your unused medications. 1.Use a drug disposal kit: the drug disposal pouch allows you to safely discard your old and unuseddrugs. Ask your nurse to give you one when you are discharged.2.Visit a local take-back location: Many local pharmacies and police departments have programs that collect old and unwanted prescriptiondrugs. Call your local pharmacy or go to http://bit.ly/0F3Vg1n to find one close to you.3.Make use of household items: Use cat litter or old coffee grounds to dispose medications if other options arenot available. Mix your drugs with these household products, seal them in an airtight container andthrow it into the garbage. Call [facility]: [phone] to be sure your drugs can be disposed of in this way. Some medicines may require a different approach.4.Never flush your medications down the toilet. IF YOU HAVE BEEN PRESCRIBED AN OPIOIDS FOR PAIN If you have been prescribed an opioid (such as hydrocodone, oxycodone or morphine), it is critical to understand the possible side effects and risks of opioid pain medications. Even when taken as directed, opioids can have several side effects including: Tolerance, meaning you might need to take more of a medication for the same pain relief. Nausea, vomiting and/or constipation. Sleepiness, dizziness, dry mouth, confusion, depression or itching. Physical dependence, meaning you have withdrawal symptoms when a medication is stopped ? this can develop within a few days. KNOW YOUR RESPONSIBILITIES It is important to know exactly how much and how often to take the opioid pain medications you are prescribed. Never take opioids in higher amounts or more often than prescribed. Do not combine opioids with alcohol or other drugs that cause drowsiness, such as benzodiazepines, also known as benzos,including diazepam and alprazolam, muscle relaxants or sleep aids. Never sell or share prescriptionopioids. This is illegal. Store opioids in a secure place and out of reach of others (including children, family, friends and visitors). The last page(s) of this document has been signed and retained as a CHART COPY Signatures Patient Education Materials Back Care Tips Medication Leaflets My discharge plan and instructions have been reviewed and explained to me and I,DB DOAN understand my current condition and have read and understand these discharge instructions. I have received a written copy of the plan/instructions. If I have questions, I am aware that I should contact my doctor. 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 Discharge instructions* Discharge Instructions* EVON Caceres - 08/13/2023 4:29 PM EDT Please follow-up with your pain management as well as your your orthopedic physicians as scheduled * Attachments The following attachments cannot be sent through Care Everywhere. * Chronic pain (Malaysian) documented in this [facility] Work Phone: 1(793) 401-391606-11-2024 Emergency department Note* EVON Caceres - 08/13/2023 3:52 PM EDT Chief Complaint Patient presents with Ankle Pain Left 53-year-old female arrives to the emergency department with a chief complaint of chronic left anklepain as well as numbness from her left knee distally. The patient has multiple chronic pains, stating that yesterday she began having idiopathic ankle pain that did not follow any type of known injury. Patient states that the pain is primarily on the area of her lateral malleolus, there is no bruising or swelling appreciated. Patient states that she has had intermittent numbness that involves herleft calf as well as her ankle area. Patient is in no apparent distress upon arrival, patient is anxious and appears to be aggravated/elevated, this likely contributes to her mild tachycardia upon arrival. Patient also states that she has chronic low back pain, denies any saddle paresthesias, acuteinjury, incontinence of urine or stool. Patient states that due to her left ankle pain it is makingit difficult for her to walk with a steady gait. 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 jack spooler tender used: No PmHx, PsHx, Allergies, Family Hx, social Hx reviewed as documented Given the focused nature of the complaint, only related components review of systems were evaluated, and abnormalities indicated in HPI Physical Exam: General: Patient is AAOx3, appears well developed, well nourished, is a good historian, answers questions appropriately HEENT: head normocephalic, atraumatic, PERRLA, EOMs intact, oropharynx without erythema or exudate,buccal mucosa intact without lesions, TMs unremarkable, nose is patent bilateral Pulmonary: CTAB, no accessory muscle use, able to speak full clear sentences Cardiac: HRRR, no murmurs, rubs or gallops GI: soft, non-tender, non-distended Musculoskeletal: Acute on chronic left ankle pain per HPI full weight bearing, HOLM, no joint effusions, clubbing or edema noted Skin: Endorses intermittent numbness in the left lower extremity per HPI, otherwise skin intact, nolesions or rashes noted, turgor is good. Medical Decision Making This patient was seen in the emergency department with an attending physician available at all times throughout their ED course Primary consideration for this patient given her intermittent numbness, idiopathic pain, would be osseous abnormality, acute on chronic pain, or even a DVT with an atypical presentation. The patient's skin temperature is normal to that of the nonicteric affected extremity, distal sensation intact, patient ambulates with steady gait. the patient has been to multiple emergency departments, from what is available to be viewed on the EMR on chart review, this is the patient's sixth visit in 6 different emergency room in the last 36 hours, with it being the third visit today since 8 AM with majority of the notes stating that the patient walks out immediately after being told that she was not going to receive any narcotic medication. Upon my arrival into the room, the patient states that this is my 6 hospital, and if you do not help me with my pain by giving me narcotic medications, I will continue to go to hospitals until someone does . Patient further states that she has an appointment this coming Saturday with pain management as well as orthopedic spine for her chronic back pain. The patient is not writhing in pain, the patient was attempting to bargain with me for narcotic medication. The patient was told that given herchronic pain, without acute injury or findings, that I was happy to control her pain and any nonnarcotic medications that have worked for her in the past. Patient states that NSAIDs do not help, thatshe currently takes Tylenol and gabapentin, patient immediately began to be tearful and further aggravated. It was agreed that the patient would receive a Valium as a muscle relaxer, as well as for her anxiety and in attempts to relieve the feeling of numbness and spasms that she is feeling in the left ankle/calf area. Patient has had multiple imaging including x-rays and lower extremity ultrasounds in the last 24 to 48 hours that have all been negative for any acute abnormality showing chronic findings. The patient states that she will just move onto the next hospital until someone gives me narcotic medications the patient has an OARRS reporting score of 630 and has had multiple narcotic prescriptions from multiple different providers. Patient is amenable to the plan of discharge as outlined above, all patient's questions pertaining to their ED course were answered in their entirety. Strict return precautions were discussed with the patient and they verbalized understanding. Further, it was made clear to the patient that from an emergent basis, all effort and testing was done to eliminate any imminent dangerous or potentially dangerous conditions of the patient however if their symptoms get much worse or feel life-threatening, they are to return to the emergency department or call 911 immediately. Amount and/or Complexity of Data Reviewed External Data Reviewed: radiology. Diagnoses as of 08/13/231641 Chronic pain of left ankle The patient has had the following imaging during this ER visit: None Patient History Past Medical History: Diagnosis Date Rotator cuff disorder No past surgical history on file. No family history on file. Social History Tobacco Use Smoking status: Some Days Types: Cigarettes Smokeless tobacco: Never Substance Use Topics Alcohol use: Never Drug use: Never ED Triage Vitals Temperature Heart Rate Respirations BP 08/13/23 1554 08/13/23 1554 08/13/23 1554 08/13/23 1556 36.3 C (97.4 F) (!) 117 18 122/78 Pulse Ox Temp src Heart Rate Source Patient Position 08/13/23 155 -- -- -- 98 % BP Location FiO2 (%) -- -- Vitals: 08/13/23 1554 08/13/23 1556 BP: 122/78 Pulse: (!) 117 Resp: 18 Temp: 36.3 C (97.4 F) SpO2: 98% Weight: 63.5 kg (140 lb) Height: 1.702 m (5' 7) EVON Caceres 08/13/23 164 documented in this [facility] Work Phone: [phone]) 385-650006-11-2024 Physician Emergency department Note* Siddhartha Partida, RATE INSERTER-TECHNICAL APPLICATIONS SPECIALIST - 08/13/2023 3:52 PM EDT Chief Complaint Patient presents with Ankle Pain Left 53-year-old female arrives to the emergency department with a chief complaint of chronic left anklepain as well as numbness from her left knee distally. The patient has multiple chronic pains, stating that yesterday she began having idiopathic ankle pain that did not follow any type of known injury. Patient states that the pain is primarily on the area of her lateral malleolus, there is no bruising or swelling appreciated. Patient states that she has had intermittent numbness that involves herleft calf as well as her ankle area. Patient is in no apparent distress upon arrival, patient is anxious and appears to be aggravated/elevated, this likely contributes to her mild tachycardia upon arrival. Patient also states that she has chronic low back pain, denies any saddle paresthesias, acuteinjury, incontinence of urine or stool. Patient states that due to her left ankle pain it is makingit difficult for her to walk with a steady gait. 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 jack spooler tender used: No PmHx, PsHx, Allergies, Family Hx, social Hx reviewed as documented Given the focused nature of the complaint, only related components review of systems were evaluated, and abnormalities indicated in HPI Physical Exam: General: Patient is AAOx3, appears well developed, well nourished, is a good historian, answers questions appropriately HEENT: head normocephalic, atraumatic, PERRLA, EOMs intact, oropharynx without erythema or exudate,buccal mucosa intact without lesions, TMs unremarkable, nose is patent bilateral Pulmonary: CTAB, no accessory muscle use, able to speak full clear sentences Cardiac: HRRR, no murmurs, rubs or gallops GI: soft, non-tender, non-distended Musculoskeletal: Acute on chronic left ankle pain per HPI full weight bearing, HOLM, no joint effusions, clubbing or edema noted Skin: Endorses intermittent numbness in the left lower extremity per HPI, otherwise skin intact, nolesions or rashes noted, turgor is good. Medical Decision Making This patient was seen in the emergency department with an attending physician available at all times throughout their ED course Primary consideration for this patient given her intermittent numbness, idiopathic pain, would be osseous abnormality, acute on chronic pain, or even a DVT with an atypical presentation. The patient's skin temperature is normal to that of the nonicteric affected extremity, distal sensation intact, patient ambulates with steady gait. the patient has been to multiple emergency departments, from what is available to be viewed on the EMR on chart review, this is the patient's sixth visit in 6 different emergency room in the last 36 hours, with it being the third visit today since 8 AM with majority of the notes stating that the patient walks out immediately after being told that she was not going to receive any narcotic medication. Upon my arrival into the room, the patient states that this is my 6 hospital, and if you do not help me with my pain by giving me narcotic medications, I will continue to go to hospitals until someone does . Patient further states that she has an appointment this coming Saturday with pain management as well as orthopedic spine for her chronic back pain. The patient is not writhing in pain, the patient was attempting to bargain with me for narcotic medication. The patient was told that given herchronic pain, without acute injury or findings, that I was happy to control her pain and any nonnarcotic medications that have worked for her in the past. Patient states that NSAIDs do not help, thatshe currently takes Tylenol and gabapentin, patient immediately began to be tearful and further aggravated. It was agreed that the patient would receive a Valium as a muscle relaxer, as well as for her anxiety and in attempts to relieve the feeling of numbness and spasms that she is feeling in the left ankle/calf area. Patient has had multiple imaging including x-rays and lower extremity ultrasounds in the last 24 to 48 hours that have all been negative for any acute abnormality showing chronic findings. The patient states that she will just move onto the next hospital until someone gives me narcotic medications the patient has an OARRS reporting score of 630 and has had multiple narcotic prescriptions from multiple different providers. Patient is amenable to the plan of discharge as outlined above, all patient's questions pertaining to their ED course were answered in their entirety. Strict return precautions were discussed with the patient and they verbalized understanding. Further, it was made clear to the patient that from an emergent basis, all effort and testing was done to eliminate any imminent dangerous or potentially dangerous conditions of the patient however if their symptoms get much worse or feel life-threatening, they are to return to the emergency department or call 911 immediately. Amount and/or Complexity of Data Reviewed External Data Reviewed: radiology. Diagnoses as of 08/13/23 1642 Chronic pain of left ankle The patient has had the following imaging during this ER visit: None Patient History Past Medical History: Diagnosis Date Rotator cuff disorder No past surgical history on file. No family history on file. Social History Tobacco Use Smoking status: Some Days Types: Cigarettes Smokeless tobacco: Never Substance Use Topics Alcohol use: Never Drug use: Never ED Triage Vitals Temperature Heart Rate Respirations BP 08/13/23 1554 08/13/23 1554 08/13/23 1554 08/13/23 1556 36.3 C (97.4 F) (!) 117 18 122/78 Pulse Ox Temp src Heart Rate Source Patient Position 08/13/23 155 -- -- -- 98 % BP Location FiO2 (%) -- -- Vitals: 08/13/23 1554 08/13/23 1556 BP: 122/78 Pulse: (!) 117 Resp: 18 Temp: 36.3 C (97.4 F) SpO2: 98% Weight: 63.5 kg (140 lb) Height: 1.702 m (5' 7) EVON Caceres 08/13/23 1642 [facility] Work Phone: [phone] 259-666006-11-2024 Emergency department Note* Gillian Ayala RN - 08/13/2023 5:53 AM EDT Patient discharged by dr harrison. Patient unhappy with discharge and wants an MRI. Patient seen at three separate facilities yesterday for the same pain. Patient walked out of ed, steady gait, nad. [facility]06-11-2024 Emergency department Note* Gillian Ayala RN - 08/13/2023 5:53 AM EDT Patient discharged by dr harrison. Patient unhappy with discharge and wants an MRI. Patient seen at three separate facilities yesterday for the same pain. Patient walked out of ed, steady gait, nad. * Erica Harrison MD - 08/13/2023 5:49 AM EDT Emergency Department Report [facility] EMERGENCY DEPARTMENT Service Date:.08/13/23 PCP: No primary care provider on file. Chief Complaint: Chief Complaint Patient presents with Ankle Pain Pt states, I rolled my ankle last Saturday and today it's just killing me. Pt complains of left anklepain and numbness. Pt c/o lower back pain. Pt had an xray done @ and found normal xray HPI Db Doan is a 53 y.o. female presents to the ED today due to complaints of injuring ankle 4 days ago. She has a past medical history is significant for ankylosing spondylitis, chronic back pain, and ankle pain. She states that she has follow up with pain management on Saturday. She denies any newtrauma or injury. In reviewing her records I see that she was seen at 3 different emergency department yesterday to which he had x-rays. One she left against medical advice when she was advised she would not get any pain medications. In reviewing further she has utilized 7 emergency department in the month of August in total. I instructed her that she was to continue on her current regimen that I would be discharging her home to follow up with her shipyard painter apprentice on Saturday at [facility]. Review of Systems: Review of Systems Constitutional: Negative for fatigue and fever. HENT: Negative. Respiratory: Negative. Cardiovascular: Negative. Gastrointestinal: Negative. Genitourinary: Negative. Musculoskeletal: Positive for arthralgias, back pain and myalgias. Neurological: Negative. All other systems reviewed and are negative. Past Medical History: Past Medical History: Diagnosis Date Ankylosing spondylitis Past Surgical History: Past Surgical History: Procedure Laterality Date LUMBAR FUSION Allergies: No Known Allergies Medications: Patient's Medications No medications on file Family History: History reviewed. No pertinent family history. Social History: Social History Socioeconomic History Marital status: Spouse name: Not on file Number of children: Not on file Years of education: Not on file Highest education level: Not on file Occupational History Not on file Tobacco Use Smoking status: Never Smokeless tobacco: Never Substance and Sexual Activity Alcohol use: Not on file Drug use: Not on file Sexual activity: Not on file Other Topics Concern Not on file Social History Narrative Not on file Social Determinants of Health Financial Resource Strain: Low Risk (11/01/2022) Received from [facility] Overall Financial Resource Strain (CARDIA) Difficulty of Paying Living Expenses: Not very hard Food Insecurity: No Food Insecurity (11/01/2022) Received from [facility] Hunger Vital Sign Worried About Running Out of Food in the Last Year: Never true Ran Out of Food in the Last Year: Never true Transportation Needs: Unknown (11/01/2022) Received from [facility] PRAPARE - Transportation Lack of Transportation (Medical): Not on file Lack of Transportation (Non-Medical): No Physical Activity: Not on file Stress: Not on file Social Connections: Not on file Intimate Partner Violence: Not on file Housing Stability: Unknown (11/01/2022) Received from [facility] Housing Stability Vital Sign Unable to Pay for Housing in the Last Year: Not on file Number of Places Lived in the Last Year: Not on file Unstable Housing in the Last Year: No Physical Exam: Physical Exam Vitals and nursing note reviewed. Constitutional: Appearance: Normal appearance. Cardiovascular: Pulses: Normal pulses. Heart sounds: Normal heart sounds. Pulmonary: Effort: Pulmonary effort is normal. Breath sounds: Normal breath sounds. Abdominal: General: Abdomen is flat. Musculoskeletal: General: Tenderness present. Comments: Tender to the lateral aspect of the left ankle. Skin: Capillary Refill: Capillary refill takes less than 2 seconds. Neurological: General: No focal deficit present. Mental Status: She is alert and oriented to person, place, and time. Motor: No weakness. Psychiatric: Comments: Anxious Vital Signs During ED Visit Patient Vitals for the past 24 hrs: BP Temp Temp src Pulse Resp SpO2 Height Weight 06/11/24 0526 -- -- -- -- -- -- 1.626 m (5' 4) 63.5 kg (140 lb) 08/13/23 0525 (!) 180/103 98.3 F (36.8 C) Oral 80 20 99 % -- -- Orders/Results: No orders of the defined types were placed in this encounter. No results found for this or any previous visit. Radiographic Imaging No orders to display Procedures: Procedures Moderate Sedation Procedure: No ED Summary/MDM Patient presents with complaints of ankle pain. In reviewing her history she was multiple emergencydepartment visits to multiple different facilities including 3 yesterday. At this point she will bedischarged home to follow up with a shipyard painter apprentice as scheduled on Saturday. Clinical Impression: Ankle Pain Chronic Pain No follow-ups on file. New Prescriptions No medications on file Discontinued Medications No medications on file An After Visit Summary was printed and given to the patient with above information. Erica Harrison MD 08/13/23 0552 [facility] Emergency department Note* Erica Harrison MD - 08/13/2023 5:49 AM EDT Emergency Department Report [facility] EM[facility]GENC[facility]PART[facility] Service Date:.08/13/23 PCP: No primary care provider on file. Chief Complaint: Chief Complaint Patient presents with Ankle Pain Pt states, I rolled my ankle last Saturday and today it's just killing me. Pt complains of left anklepain and numbness. Pt c/o lower back pain. Pt had an xray done @ and found normal xray HPI Db Doan is a 53 y.o. female presents to the ED today due to complaints of injuring ankle 4 days ago. She has a past medical history is significant for ankylosing spondylitis, chronic back pain, and ankle pain. She states that she has follow up with pain management on Saturday. She denies any newtrauma or injury. In reviewing her records I see that she was seen at 3 different emergency department yesterday to which he had x-rays. One she left against medical advice when she was advised she would not get any pain medications. In reviewing further she has utilized 7 emergency department in the month of August in total. I instructed her that she was to continue on her current regimen that I would be discharging her home to follow up with her shipyard painter apprentice on Saturday at [facility]. Review of Systems: Review of Systems Constitutional: Negative for fatigue and fever. HENT: Negative. Respiratory: Negative. Cardiovascular: Negative. Gastrointestinal: Negative. Genitourinary: Negative. Musculoskeletal: Positive for arthralgias, back pain and myalgias. Neurological: Negative. All other systems reviewed and are negative. Past Medical History: Past Medical History: Diagnosis Date Ankylosing spondylitis Past Surgical History: Past Surgical History: Procedure Laterality Date LUMBAR FUSION Allergies: No Known Allergies Medications: Patient's Medications No medications on file Family History: History reviewed. No pertinent family history. Social History: Social History Socioeconomic History Marital status: Spouse name: Not on file Number of children: Not on file Years of education: Not on file Highest education level: Not on file Occupational History Not on file Tobacco Use Smoking status: Never Smokeless tobacco: Never Substance and Sexual Activity Alcohol use: Not on file Drug use: Not on file Sexual activity: Not on file Other Topics Concern Not on file Social History Narrative Not on file Social Determinants of Health Financial Resource Strain: Low Risk (11/01/2022) Received from [facility] Overall Financial Resource Strain (CARDIA) Difficulty of Paying Living Expenses: Not very hard Food Insecurity: No Food Insecurity (11/01/2022) Received from [facility] Hunger Vital Sign Worried About Running Out of Food in the Last Year: Never true Ran Out of Food in the Last Year: Never true Transportation Needs: Unknown (11/01/2022) Received from [facility] PRAPARE - Transportation Lack of Transportation (Medical): Not on file Lack of Transportation (Non-Medical): No Physical Activity: Not on file Stress: Not on file Social Connections: Not on file Intimate Partner Violence: Not on file Housing Stability: Unknown (11/01/2022) Received from [facility] Housing Stability Vital Sign Unable to Pay for Housing in the Last Year: Not on file Number of Places Lived in the Last Year: Not on file Unstable Housing in the Last Year: No Physical Exam: Physical Exam Vitals and nursing note reviewed. Constitutional: Appearance: Normal appearance. Cardiovascular: Pulses: Normal pulses. Heart sounds: Normal heart sounds. Pulmonary: Effort: Pulmonary effort is normal. Breath sounds: Normal breath sounds. Abdominal: General: Abdomen is flat. Musculoskeletal: General: Tenderness present. Comments: Tender to the lateral aspect of the left ankle. Skin: Capillary Refill: Capillary refill takes less than 2 seconds. Neurological: General: No focal deficit present. Mental Status: She is alert and oriented to person, place, and time. Motor: No weakness. Psychiatric: Comments: Anxious Vital Signs During ED Visit Patient Vitals for the past 24 hrs: BP Temp Temp src Pulse Resp SpO2 Height Weight 08/13/23 0526 -- -- -- -- -- -- 1.626 m (5' 4) 63.5 kg (140 lb) 08/13/23 0525 (!) 180/103 98.3 F (36.8 C) Oral 80 20 99 % -- -- Orders/Results: No orders of the defined types were placed in this encounter. No results found for this or any previous visit. Radiographic Imaging No orders to display Procedures: Procedures Moderate Sedation Procedure: No ED Summary/MDM Patient presents with complaints of ankle pain. In reviewing her history she was multiple emergencydepartment visits to multiple different facilities including 3 yesterday. At this point she will bedischarged home to follow up with a shipyard painter apprentice as scheduled on Saturday. Clinical Impression: Ankle Pain Chronic Pain No follow-ups on file. New Prescriptions No medications on file Discontinued Medications No medications on file An After Visit Summary was printed and given to the patient with above information. Erica Harrison MD 08/13/23 0552 [id number] Instructions* Patient Instructions* Trisha Tenorio APRN.XUAN - 08/07/2023 7:33 AM EDT Ice and heat as tolerated Activity as tolerated [facility] Emergency department Note* Santa Pelayo DO - 08/06/2023 7:36 AM EDT Patient was signed out to me by overnight physician. 53-year-old female history of ankylosing spondylitis presenting for mechanical fall with coccyx pain and ankle pain. Imaging was negative for acute injury. I re-evaluated the patient at 7:30 a.m. and she appeared well. Improvement with medications per below. Ambulated with steady gait with equal strength in all extremities. No evidence of acuteneurologic compromise including cord compression, cauda equina syndrome, conus medullaris syndrome.There is no evidence to suggest occult fracture or epidural abscess/hematoma. We discussed pain management at home. She has chronic pain and is scheduled to [facility]. She also has epilepsy and takes Lamictal. No recent seizures. She was discharged in stable condition. XR SACRUM-COCCYX 3 VIEWS Result Date: 08/06/2023 Narrative: EXAMINATION: XR SACRUM-COCCYX 3 VIEWS 08/06/2023 07:04 AM CLINICAL HISTORY: upper sacrumtenderness, left SI joint tenderness s/p fall ASSOCIATED DIAGNOSIS: ORDERING PROVIDER: ROSALIE ENGEL NOTE: COMPARISON: XR L-SPINE AP+LATERAL 2-3 VIEWS 04/08/2023, 8:50 AM IMPRESSION: There is no evidence for a fracture or bone destruction. The coccygeal segments appear intact. The remaining visualized bones are maintained. MACRO: None XR ANKLE LEFT 3 VIEWS Result Date: 08/06/2023 Narrative: EXAMINATION: XR ANKLE LEFT 3 VIEWSPRO/LT 08/06/2023 07:05 AM CLINICAL HISTORY: fall w/ lateral ankle tenderness ASSOCIATED DIAGNOSIS: ORDERING PROVIDER: ROSALIE ENGEL NOTE: COMPARISON: None IMPRESSION: Small osseous fragment adjacent to the lateral malleolus seen on singleprojection represents an age-indeterminate avulsed fragment. Minimal lateral malleolus soft tissue swelling favors an acute process. The ankle mortise and talar dome are normal. The joint spaces are maintained. There is no radiopaque foreign body. Left ankle MACRO: None Medications lidocaine (LIDODERM) 4 % patch (1 Patch Transdermal Patch Applied 08/06/23640) ketorolac (TORADOL) 15 MG/ML injection (15 mg Intramuscular Given 08/06/23640) acetaminophen (TYLENOL) tablet (650 mg Oral Given 08/06/23640) droperidol (INAPSINE) 2.5 MG/ML injection (2.5 mg Intramuscular Given 08/06/23640) Clinical Impression Diagnosis Comment Contusion of sacrum, initial encounter [S30.0XXA] Ankylosing spondylitis, unspecified site of spine (HCC) [M45.9] New Prescriptions KETOROLAC (TORADOL) 10 MG TABLET Take 1 Tablet by mouth every 6 hours as needed for Pain. LIDOCAINE (LIDODERM) 5 % PATCH Place 1 Patch on the skin every 24 hours for 7 days. METHOCARBAMOL (ROBAXIN) 500 MG TABLET Take 2 Tablets by mouth 4 times daily as needed. Dispo: wa home Santa Pelayo DO [id number] Emergency department Note* Santa Pelayo DO - 08/06/2023 7:36 AM EDT Patient was signed out to me by overnight physician. 53-year-old female history of ankylosing spondylitis presenting for mechanical fall with coccyx pain and ankle pain. Imaging was negative for acute injury. I re-evaluated the patient at 7:30 a.m. and she appeared well. Improvement with medications per below. Ambulated with steady gait with equal strength in all extremities. No evidence of acuteneurologic compromise including cord compression, cauda equina syndrome, conus medullaris syndrome.There is no evidence to suggest occult fracture or epidural abscess/hematoma. We discussed pain management at home. She has chronic pain and is scheduled to see a [facility] on[facility] 18. She also has epilepsy and takes Lamictal. No recent seizures. She was discharged in stable condition. XR SACRUM-COCCYX 3 VIEWS Result Date: 08/06/2023 Narrative: EXAMINATION: XR SACRUM-COCCYX 3 VIEWS 08/06/2023 07:04 AM CLINICAL HISTORY: upper sacrumtenderness, left SI joint tenderness s/p fall ASSOCIATED DIAGNOSIS: ORDERING PROVIDER: ROSALIE ENGEL NOTE: COMPARISON: XR L-SPINE AP+LATERAL 2-3 VIEWS 04/08/2023, 8:50 AM IMPRESSION: There is no evidence for a fracture or bone destruction. The coccygeal segments appear intact. The remaining visualized bones are maintained. MACRO: None XR ANKLE LEFT 3 VIEWS Result Date: 08/06/2023 Narrative: EXAMINATION: XR ANKLE LEFT 3 VIEWSPRO/LT 08/06/2023 07:05 AM CLINICAL HISTORY: fall w/ lateral ankle tenderness ASSOCIATED DIAGNOSIS: ORDERING PROVIDER: ROSALIE NELSON TECHNIBIS NOTE: COMPARISON: None IMPRESSION: Small osseous fragment adjacent to the lateral malleolus seen on singleprojection represents an age-indeterminate avulsed fragment. Minimal lateral malleolus soft tissue swelling favors an acute process. The ankle mortise and talar dome are normal. The joint spaces are maintained. There is no radiopaque foreign body. Left ankle MACRO: None Medications lidocaine (LIDODERM) 4 % patch (1 Patch Transdermal Patch Applied 08/06/23640) ketorolac (TORADOL) 15 MG/ML injection (15 mg Intramuscular Given 08/06/23640) acetaminophen (TYLENOL) tablet (650 mg Oral Given 08/06/23640) droperidol (INAPSINE) 2.5 MG/ML injection (2.5 mg Intramuscular Given 08/06/23640) Clinical Impression Diagnosis Comment Contusion of sacrum, initial encounter [S30.0XXA] Ankylosing spondylitis, unspecified site of spine (HCC) [M45.9] New Prescriptions KETOROLAC (TORADOL) 10 MG TABLET Take 1 Tablet by mouth every 6 hours as needed for Pain. LIDOCAINE (LIDODERM) 5 % PATCH Place 1 Patch on the skin every 24 hours for 7 days. METHOCARBAMOL (ROBAXIN) 500 MG TABLET Take 2 Tablets by mouth 4 times daily as needed. Dispo: dc home Santa Pelayo DO documented in this [id number] Hospital Discharge instructions* Discharge Instructions* Santa Pelayo DO - 08/06/2023 7:34 AM EDT Procedures done during this visit: None * Attachments The following attachments cannot be sent through Care Everywhere. * Coccyx Injury (Malaysian) documented in this [id number] Instructions* Patient Instructions* Trisha Tenorio APRN.CNP - 07/22/2023 7:07 AM EDT Ice and heat as tolerated Activity as tolerated documented [facility] Hospital Discharge instructions* Discharge Instructions* Sophia Mancilla DO - 07/09/2023 10:22 AM EDT Please call and follow-up with your family physician as soon as possible. Return to emergency department if symptoms persist or worsen. Take medications as prescribed and follow stretches as instructed. Follow-up with your pain specialist. * Attachments The following attachments cannot be sent through Care Everywhere. * Cervical: Exercises (Malaysian) * Back Care Basics: General Info (Malaysian) documented in this [facility] Discharge summary Author Addy Faith [facility] May 30, 2023 5:24pm Note Date/Time May 30, 2023 4:0 7pm [facility] Medical Records Department [address] [place] [address] Emergency Department Summary 05/30/23 MR#: [id number] Acct: [id number] Name: DB DOAN Rep #:[id number] : 1970 53 From: Addy Faith MD PCP: Care Physician,No Primary Status :REG ER Location: ED HPI History of Present Illness Chief Complaint: Back Detail of Chief Complaint: Back pain that she localized to the sacrum area status post fall Informant: patient Onset/Context/Timing Onset: Days Context: Sudden Onset Injury: direct trauma Timing: Continuous Quality: Sharp Location: - (Sacrum) Current Severity: Mild Maximum Severity: Moderate Worsened by: improves with Movement and - (And sitting) Relieved by: Nothing Associated Symptoms Associated Symptoms: Negative for Numbness, Tingling, Radiation to Right Leg, Radiation to Left Leg, Fever, Abdominal Pain, Dysuria, Unable to Ambulate, Unable to Transfer, Urinary Retention, Urinary Incontinence, Constipation or Fecal Incontinence Narrative Narrative: Patient is a 53-year-old woman with history of ankylosing spondylisis, fracture coccyx who fell 5 days ago. She slipped. She landed on her buttocks. She localizes pain to the sacral region. She denies perianal discomfort or buttockspain. She denies bowel or bladder dysfunction. Denies saddle paresthesia or anesthesia. She does have a history of herniated disc with foot drop. This improved with conservative therapy. She denies fever, chills night sweats. Shestates her son drove her to the hospital. She is a smoker. She recent saw pulmonology. She is scheduled for outpatient pulmonary testing. Prior similar symptoms: Yes Recent Illness/Hospitalization: Yes PFSH PFSH Home Medications naproxen 500 mg tablet 500 mg PO BID #14 tabs 05/30/23 [Rx Last Taken Unknown] Allergy/AdvReac Type Severity Reaction Status Date / Time No Known Allergies Allergy Verified 05/30/23 15:48 Social History (Updated 05/30/23 @ 16:[address] Addy Faith MD) household members: children Smoking Status: Current every day smoker tobacco type: cigarettes alcohol intake: current substance use type: does not use ROS ROS ED Constitutional Constitutional ED: Denies chills, fever(s), subjective or sweats Gastrointestinal Gastrointestinal: Denies abdominal pain, nausea or vomiting Genitourinary Genitourinary ED: Denies dysuria, hematuria or urinary frequency Musculoskeletal Musculoskeletal: Reports back pain; Denies arthralgias, myalgias or neck pain Integumentary Denies rash Neurologic Neurologic: Denies headache(s), paresthesias or weakness Hematologic/Lymphatic Hematologic/Lymphatic: Denies easy bleeding or easy bruising EXAM Physical Exam Const Vital Signs: 05/30/23 15:49 Temperature 97.6 F L Temperature Source Temporal Pulse Rate 99 Respiratory Rate 16 Blood Pressure 133/89 H Blood Pressure Mean 103 Pulse Ox 99 Oxygen Delivery Method Room Air Positive well nourished and well developed Constitutional Narrative: While patient was told me what happened she began to cry. She became hystericalthen. General Appearance ED: well developed and NAD; Negative for pallor HEENT Reports moist mucous membranes Negative for trauma or tenderness Eyes PERRL and EOMs intact bilaterally General Eye ED: Negative for pale conjunctiva or scleral icterus Neck No no lymphadenopathy, No supple and No no JVD Neck Narrative: There is no posterior midline cervical pain. Resp normal respiratory effort and clear to auscultation bilaterally Cardio regular rate, regular rhythm, S1 normal heart sound, S2 normal heart sound and no murmurs GI normal to inspection, nondistended, normoactive bowel sounds, soft to palpation,non-tender, non-distended and no masses Back/Spine normal to inspection Back/Spine Narrative: There is no pain ovation over the the thoracic spine. There is pain ovation at the area of the L5-S1 junction and sacrum. There is no pain the patient over the left or right ischial tuberosity. There is no pain ovation over the pubic symphysis. Sensation L3-S1 is normal on the right. Sensation over S1 dermatomeis abnormal. Patient states is chronic. EHL may be slightly diminished on the left compared to the right. Gait was observed. There is no foot drop. Able towalk on heels and toes. Cervical Spine: Negative for cervical spine tenderness Thoracic Spine / Upper Back: paraspinal muscle tenderness Lumbar Spine / Lower Back: straight leg raise negative bilaterally; Negative forROM limited Extremity normal to inspection and no clubbing, cyanosis or edema General Extremety ED: Negative for edema or tenderness General Extremity: Negative for edema Neuro oriented x3 and no sensory deficits noted Sensorium / Orientation: alert Deep Tendon Reflexes: Rt Patellar (L4): 3+, Lt Patellar (L4): 3+, Rt Ankle (S1):3+ and Lt Ankle (S1): 3+ Deep Tendon Reflexes Back: Rt Patellar (L4): 3+, Lt Patellar (L4): 3+, Rt Ankle (S1): 3+ and Lt Ankle (S1): 3+ Plantar Reflex: Downgoing: bilateral (There is no clonus.) Psych Mood & Affect: depressed and tearful Skin no rashes or lesions noted and no wounds General Skin Exam: Negative for jaundice or pallor MDM MDM MDM Narrative Medical decision making narrative: With history of fall and ankle spondylitis will obtain x-ray to assess for fracture. She was medicated with oral Naprosyn and [place]. She requested no injections. History & Record Review Additional record(s) reviewed:: Prior outpatient record (Ankylosing spondylitis) Radiography Chest X-Ray - ED: Read by ED Physician (Three-view x-ray of the LS-spine revealsno acute fracture, subluxation or dislocation. There is minimal degenerative changes noted. Disc spaces normal. This is independent reviewed interpreted byme.) Diagnostic Testing: Clinical Impression(s) from Imaging Studies Lumbar Spine X-Ray 05/30/23 16:25 IMPRESSION: Minimal degenerative changes of the lumbar spine. Electronically Signed: Paul Rocha DO at 17:05 EDT Reading Location ID and State: [facility] / [place] Tel [phone], Service support , Treatment and Re-Evaluation Narrative: Patient was discharged home on NSAIDs and she has no contraindication. Suspect there is an obstructive component that is making her pain worse. Discharge Plan Triage Chief Complaint: Back ED Provider: Addy Faith Dx/Rx/DC Orders Clinical Impression: Injury due to fall, Hx of ankylosing spondylitis, Contusion of lower back and pelvis, initial encounter Instructions: ED Coccyx or Sacrum Contusion Prescriptions: New naproxen 500 mg tablet 500 mg PO BID Qty: 14 0RF Primary Care Provider: Care Physician,No Primary Referrals: NOT,DEFINED [Non-Staff] - Doctor,Your [Non-Staff] - 1 Week if not improving Activity Restrictions/Additional Instructions: 1. Apply ice to your low back 6-10 times a day for the next 3 to 5 days 2. Take medicine as prescribed 3. The name of your primary care provider is listed on your insurance card issued to you by [facility] [employer]. Disposition Disposition: Home, Self Care What to do if you have Problems For any increased pain, shortness of breath, bleeding, nausea or vomiting, chestpain, or any unexpected problems, contact your Primary Care Provider. Call [facility] ([phone]) or report to the closest Emergency Room. Call 911 if necessary. 05/30/23 4134 <Electronically signed by Addy Faith MD> Cosigner Signature (if applicable): CC: No Primary Care Physician ~ Signed [facility] Work Phone: [phone] [phone] Hospital Discharge instructions Additional Instructions 1. Apply ice to your low back 6-10 times a day for the next 3 to 5 days 2. Take medicine as prescribed 3. The name of your primary care provider is listed on your insurance card issued to you by [facility] [employer] Work Phone: [phone]) [phone] Hospital Discharge instructions Patient Education 05/16/2023 05:56:05 Back Sprain/Strain Back Sprain or Strain Injury to the muscles (strain) or ligaments (sprain) around the spine can be troubling. Injury may occur after a sudden forceful twisting or bending force such as in a car accident, after a simple awkward movement, or after lifting something heavy with poor body positioning. In any case, muscle spasm is often present and adds to the pain. Thankfully, most people feel better in 1 to 2 weeks, and most of the rest in 1 to 2 months. Most people can remain active. Unless you had a forceful or traumatic physical injury such as a car accident or fall, X-rays may not be ordered for the first evaluation of a back sprain or strain. If pain continues and does not respond to medical treatment, your healthcare provider may then order X-rays and other tests. Home care The following guidelines will help you care for your injury at home: When in bed, try to find a comfortable position. A firm mattress is best. Try lying flat on your back with pillows under your knees. You can also try lying on your side with your knees bent up towardyour chest and a pillow between your knees. Don't sit for long periods. Try not to take long car rides or take other trips that have you sitting for a long time. This puts more stress on the lower back than standing or walking. During the first 24 to 72 hours after an injury or flare-up, apply an ice pack to the painful area for 20 minutes. Then remove it for 20 minutes. Do this for 60 to 90 minutes, or several times a day.This will reduce swelling and pain. Be sure to wrap the ice pack in a thin towel or plastic to protect your skin. You can start with ice, then switch to heat. Heat from a hot shower, hot bath, or heating pad reduces pain and works well for muscle spasms. Put heat on the painful area for 20 minutes, then remove for 20 minutes. Do this for 60 to 90 minutes, or several times a day. Do not use a heating pad while sleeping. It can burn the skin. You can alternate the ice and heat. Talk with your healthcare provider to find out the best treatment or therapy for your back pain. Therapeutic massage will help relax the back muscles without stretching them. Be aware of safe lifting methods. Do not lift anything over 15 pounds until all of the pain is gone. Medicines Talk to your healthcare provider before using medicines, especially if you have other health problems or are taking other medicines. You may use acetaminophen or ibuprofen to control pain, unless another pain medicine was prescribed. If you have chronic conditions like diabetes, liver or kidney disease, stomach ulcers, or gastrointestinal bleeding, or are taking blood-thinner medicines, talk with your doctor before taking any medicines. Be careful if you are given prescription medicines, narcotics, or medicine for muscle spasm. They can cause drowsiness, and affect your coordination, reflexes, and judgment. Do not drive or operate heavy machinery when taking these types of medicines. Only take pain medicine as prescribed by your healthcare provider. Follow-up care Follow up with your healthcare provider, or as advised. You may need physical therapy or more testsif your symptoms get worse. If you had X-rays your healthcare provider may be checking for any broken bones, breaks, or fractures. Bruises and sprains can sometimes hurt as much as a fracture. These injuries can take time to heal completely. If your symptoms don t improve or they get worse, talk with your healthcare provider.You may need a repeat X-ray or other tests. Call 911 Call 911 if any of the following occur: Trouble breathing Confused Very drowsy or trouble awakening Fainting or loss of consciousness Rapid or very slow heart rate Loss of bowel or bladder control When to seek medical advice Call your healthcare provider right away if any of the following occur: Pain gets worse or spreads to your arms or legs Weakness or numbness in one or both arms or legs Numbness in the groin or genital area [phone] [employer]. [address] [place] [address], [place] [address]. All rights reserved. This information is not intended as a substitute for professional medical care. Always follow yourhealthcare professional's instructions. Follow Up Care 05/16/2023 04:33:43 With:MARIA ELENA MONTALVO MD Address: [place] [address]- [phone] When:2-[address] [facility] 03-14-2024 Emergency department Discharge summary Discharge Instructions Thank you for allowing [facility] to assist you with your healthcare needs. The following is importantdischarge information regarding your hospital visit. Diagnosis from Today's Visit Back pain What to Do Next Instructions from Your Care Team No qualifying data available. Post Acute Orders No qualifying data available. You Need to Schedule the Following Appointments Follow Up with MARIA ELENA MONTALVO MD When Within 2-4 days Where: [place] [address]- [phone] Allergies No Known Medication Allergies Medications Please ask your primary doctor or pharmacist before taking any other medication not listed, including over the counter drugs, herbal medications, vitamins and or supplements as they may interact withyour home medications. What How Much When Instructions Last Dose New metaxalone (Skelaxin 800 mg oral tablet) 1 tab(s) by mouth Three (3) times a day Duration: 5 Days Printed Prescription Please take this list to your next doctor s visit. Bring all medications you take, including over the counter medications, herbals and other supplements with you to your doctor s visit. Patients and families are reminded to discard old lists and to update any records with all medication providers or retail pharmacies. Education Materials Back Sprain or Strain Injury to the muscles (strain) or ligaments (sprain) around the spine can be troubling. Injury may occur after a sudden forceful twisting or bending force such as in a car accident, after a simple awkward movement, or after lifting something heavy with poor body positioning. In any case, muscle spasm is often present and adds to the pain. Thankfully, most people feel better in 1 to 2 weeks, and most of the rest in 1 to 2 months. Most people can remain active. Unless you had a forceful or traumatic physical injury such as a car accident or fall, X-rays may not be ordered for the first evaluation of a back sprain or strain. If pain continues and does not respond to medical treatment, your healthcare provider may then order X-rays and other tests. Home care The following guidelines will help you care for your injury at home: When in bed, try to find a comfortable position. A firm mattress is best. Try lying flat on your back with pillows under your knees. You can also try lying on your side with your knees bent up towardyour chest and a pillow between your knees. Don't sit for long periods. Try not to take long car rides or take other trips that have you sitting for a long time. This puts more stress on the lower back than standing or walking. During the first 24 to 72 hours after an injury or flare-up, apply an ice pack to the painful area for 20 minutes. Then remove it for 20 minutes. Do this for 60 to 90 minutes, or several times a day.This will reduce swelling and pain. Be sure to wrap the ice pack in a thin towel or plastic to protect your skin. You can start with ice, then switch to heat. Heat from a hot shower, hot bath, or heating pad reduces pain and works well for muscle spasms. Put heat on the painful area for 20 minutes, then remove for 20 minutes. Do this for 60 to 90 minutes, or several times a day. Do not use a heating pad while sleeping. It can burn the skin. You can alternate the ice and heat. Talk with your healthcare provider to find out the best treatment or therapy for your back pain. Therapeutic massage will help relax the back muscles without stretching them. Be aware of safe lifting methods. Do not lift anything over 15 pounds until all of the pain is gone. Medicines Talk to your healthcare provider before using medicines, especially if you have other health problems or are taking other medicines. You may use acetaminophen or ibuprofen to control pain, unless another pain medicine was prescribed. If you have chronic conditions like diabetes, liver or kidney disease, stomach ulcers, or gastrointestinal bleeding, or are taking blood-thinner medicines, talk with your doctor before taking any medicines. Be careful if you are given prescription medicines, narcotics, or medicine for muscle spasm. They can cause drowsiness, and affect your coordination, reflexes, and judgment. Do not drive or operate heavy machinery when taking these types of medicines. Only take pain medicine as prescribed by your healthcare provider. Follow-up care Follow up with your healthcare provider, or as advised. You may need physical therapy or more testsif your symptoms get worse. If you had X-rays your healthcare provider may be checking for any broken bones, breaks, or fractures. Bruises and sprains can sometimes hurt as much as a fracture. These injuries can take time to heal completely. If your symptoms don t improve or they get worse, talk with your healthcare provider.You may need a repeat X-ray or other tests. Call 911 Call 911 if any of the following occur: Trouble breathing Confused Very drowsy or trouble awakening Fainting or loss of consciousness Rapid or very slow heart rate Loss of bowel or bladder control When to seek medical advice Call your healthcare provider right away if any of the following occur: Pain gets worse or spreads to your arms or legs Weakness or numbness in one or both arms or legs Numbness in the groin or genital area [phone] [employer]. [address] [place] [address]. All rights reserved. This information is not intended as a substitute for professional medical care. Always follow yourhealthcare professional's instructions. Additional Information VACCINATE! IT SAVES LIVES! Members of the community who have not yet received the COVID-19 vaccine and would like to receive it can visit one of [facility] vaccine clinics. There are many vaccine clinic locations within the [facility]. For locations and available times, please visit www.gettheshot.coronavirus.[place].gov/. It is important to note that some COVID mobile vaccine clinics are held outdoors and may be canceled in rainy or stormy conditions. To learn more about pediatric vaccinations (ages 5-11), we invite you to visit the [facility] webpage. https://www.[facility].org/pages/2176-Hesbg-Zsayuoqtdku-Xkfjvteozd-Tiaek-Xvd stions.htmlTo learn more about the COVID-19 vaccine, we invite you to visit the CDC website for a list of frequently asked questions. https://www.cdc.gov/coronavirus/2019-ncov/vaccines/faq.html [facility] [employer] Patient Portal Access Instructions: Stay connected with your healthcare team and access your personal medical information anytime with the [facility] [employer] Patient Portal. If you would like a full copy of your medical records please contact the [facility] Medical Records Department Saturday through Saturday between 8a.m. and 4:30p.m. Please follow the directions below to access the portal: 1.Access the email account you provided upon registration to the hospital.2.Look for an invitation email from [facility].3.Open the email and access the invitation link: Accept Invitation to [facility].Fill in the required whitfield to create your account. Sign into [email or web address] with your username and password that you created in the above steps to stay up to date. You can then view a summary of results, a summary of your visits, and the ability to download your summaries to your computer or send the information securely to a physician. Remember that your healthcare information is confidential, so carefully consider who you will allow to register on the [employer] Patient Portal for access to your information. You can also access the [employer] Patient Portal on the in2apps. Simply click on Health Records under [employer] and then click on the [employer] logo. HOW TO SAFELY DISPOSE OF PRESCRIPTION MEDICATIONS Please use one of the following methods to safely dispose of your unused medications. 1.Use a drug disposal kit: the drug disposal pouch allows you to safely discard your old and unuseddrugs. Ask your nurse to give you one when you are discharged.2.Visit a local take-back location: Many local pharmacies and police departments have programs that collect old and unwanted prescriptiondrugs. Call your local pharmacy or go to http://[employer].toucanBox/8U0Og9z to find one close to you.3.Make use of household items: Use cat litter or old coffee grounds to dispose medications if other options arenot available. Mix your drugs with these household products, seal them in an airtight container andthrow it into the garbage. Call [facility]: [phone] to be sure your drugs can be disposed of in this way. Some medicines may require a different approach.4.Never flush your medications down the toilet. IF YOU HAVE BEEN PRESCRIBED AN OPIOIDS FOR PAIN If you have been prescribed an opioid (such as hydrocodone, oxycodone or morphine), it is critical to understand the possible side effects and risks of opioid pain medications. Even when taken as directed, opioids can have several side effects including: Tolerance, meaning you might need to take more of a medication for the same pain relief. Nausea, vomiting and/or constipation. Sleepiness, dizziness, dry mouth, confusion, depression or itching. Physical dependence, meaning you have withdrawal symptoms when a medication is stopped ? this can develop within a few days. KNOW YOUR RESPONSIBILITIES It is important to know exactly how much and how often to take the opioid pain medications you are prescribed. Never take opioids in higher amounts or more often than prescribed. Do not combine opioids with alcohol or other drugs that cause drowsiness, such as benzodiazepines, also known as benzos,including diazepam and alprazolam, muscle relaxants or sleep aids. Never sell or share prescriptionopioids. This is illegal. Store opioids in a secure place and out of reach of others (including children, family, friends and visitors). The last page(s) of this document has been signed and retained as a CHART COPY Signatures Patient Education Materials Back Sprain/Strain Medication Leaflets My discharge plan and instructions have been reviewed and explained to me and I,DB DOAN understand my current condition and have read and understand these discharge instructions. I have received a written copy of the plan/instructions. If I have questions, I am aware that I should contact my doctor. 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 Note ORIGINAL EXAMINATION: 4 XRAY VIEWS OF THE LUMBAR SPINE 05/16/2023 5:40 am COMPARISON: CT lumbar spine on 05/06/2023. Lumbar spine x-ray on 03/04/2023 HISTORY: ORDERING SYSTEM PROVIDED HISTORY: Reason for Exam: pain FINDINGS: There are 5 lumbar vertebrae. The lumbar spine alignment is normal. Vertebral bodies are normal in shape with no fracture. The intervertebral disc spaces are maintained. Facet joints and posterior elements show no sign of abnormality. Sacroiliac joints are normal. IMPRESSION: Normal lumbar spine. Interpreted by: Krzysztof Mehta MD Preliminary Report By: Krzysztof Mehta MD Electronically signed By Krzysztof Mehta MD Dictated Date: 05/16/2023 5:44:18 AM Prelim Date: 05/16/2023 5:46:11 AM Sign Date: 05/16/2023 5:46:11 AM Ordering Provider: [facility]AMILET [facility]Pro[facility] [id number] Hospital Discharge instructions* Discharge Instructions* Ninoska Munoz APRN - CNP - 05/06/2023 4:43 PM EST Continue taking your Cymbalta, naproxen, Tylenol, Lidoderm patches and muscle relaxants as prescribed. * Discharge Instr - YEYO* Anayeli Nguyen RN - 05/06/2023 5:17 PM EST Continuity of Care Form Patient Name: Db oDan : 1970 Admit date: 05/06/2023 Discharge date: Code Status Order: Prior Advance Directives: Admitting Physician: No admitting provider for patient encounter. PCP: Maria Elena Montalvo MD Discharging Nurse: Discharging Hospital Unit/Room#: 36/36 Discharging Unit Phone Number: Emergency Contact: Extended Emergency Contact Information Primary Emergency Contact: Dolly Benitez Mobile Relation: Child Source Inspector needed? No Past Surgical History: Past Surgical History: Procedure Laterality Date SECTION SECTION 08/09/1999 &12/11/[address] PACHECO HC INJECTION PROCEDURE FOR SACROILIAC JOINT Left 02/02/2019 LEFT SACROILIAC JOINT INJECTION WITHOUT SEDATION (CPT 86334) performed by Khoa Gallagher MD at [facility] OR HERNIA REPAIR HIP SURGERY Left 03/17/2019 LEFT HIP INJECTION WITHOUT SEDATION (CPT 24893,85917) performed by Khoa Gallagher MD at [facility] OR NERVE BLOCK Left 02/02/2019 sacroiliac joint NERVE BLOCK Left 03/17/2019 hip injection TUBAL LIGATION 08/2012 Immunization History: Immunization History Administered Date(s) Administered COVID-19, MODERNA BLUE border, Primary or Immunocompromised, (age 12y+), IM, 100 mcg/0.5mL 05/31/2020, 06/28/2020, 03/06/2021 COVID-19, MODERNA Bivalent, (age 12y+), IM, 50 mcg/0.5 mL 12/30/2021 Influenza, FLUCELVAX, (age 6 mo+), MDCK, PF, 0.5mL 01/30/2021 Active Problems: Patient Active Problem List Diagnosis Code Migraine without aura G43.009 Cervicalgia M54.2 Displacement of cervical intervertebral disc without myelopathy M50.20 Brachial neuritis or radiculitis M54.12 Cervical radiculopathy M54.12 Lumbar radiculopathy M54.16 Disc displacement, lumbar M51.26 Intractable pain R52 PTSD (post-traumatic stress disorder) F43.10 Sprain or strain of cervical spine [id number] Reactive depression F32.9 Other chronic pain G89.29 Anxiety attack F41.0 Intervertebral disc disorders with radiculopathy, lumbar region M51.16 Generalized seizure disorder (HCC) G40.309 Annular tear of lumbar disc M51.36 DDD (degenerative disc disease), lumbar M51.36 Chronic pain syndrome G89.4 Lumbar facet arthropathy M47.816 Disorder of sacrum M53.3 Primary osteoarthritis of left hip M16.12 Sacroiliitis (HCC) M46.1 Pain in left hip M25.552 Lymphadenopathy R59.1 Shoulder pain M25.519 Anxiety F41.9 History of chronic pain Z87.898 Lumbar spondylosis M47.816 Lumbar disc disorder M51.9 Greater trochanteric bursitis of left hip M70.62 Centrilobular emphysema (HCC) J43.2 Isolation/Infection: Isolation No Isolation Patient Infection Status None to display Nurse Assessment: Last Vital Signs: BP 109/71 Pulse 98 Temp 98.8 F (37.1 C) (Oral) Resp 16 Ht 1.702 m (5' 7) Wt 61.2 kg (135 lb) SpO2 100% BMI 21.14 kg/m Last documented pain score (0-10 scale): Pain Level: 10 Last Weight: Wt Readings from Last 1 Encounters: 05/06/23 61.2 kg (135 lb) Mental Status: {IP PT MENTAL STATUS:} IV Access: { YEYO IV ACCESS:072659940} Nursing Mobility/ADLs: Walking {CHP DME ADLs:346769805} Transfer {CHP DME ADLs:566404435} Bathing {CHP DME ADLs:811685542} Dressing {CHP DME ADLs:946778895} Toileting {CHP DME ADLs:205489401} Feeding {CHP DME ADLs:742220954} Career Resource Technician {CHP DME ADLs:697225561} Med Delivery { YEYO MED Delivery:441507960} Wound Care Documentation and Therapy: Elimination: Continence: Bowel: {YES / NO:} Bladder: {YES / NO:} Urinary Catheter: {Urinary Catheter:693588622} Colostomy/Ileostomy/Ileal Conduit: {YES / NO:} Date of Last BM: No intake or output data in the 24 hours ending 05/06/231716 No intake/output data recorded. Safety Concerns: { YEYO Safety Concerns:914118047} Impairments/Disabilities: { YEYO Impairments/Disabilities:471354236} Nutrition Therapy: Current Nutrition Therapy: { YEYO Diet List:538423202} Routes of Feeding: {[facility] DME Other Feedings:346795947} Liquids: {Kiln Fireman liquid thickness:65876} Daily Fluid Restriction: {CHP DME Yes amt example:667327542} Last Modified Barium Swallow with Video (Video Swallowing Test): {Done Not Done Date:} Treatments at the Time of Hospital Discharge: Respiratory Treatments: Oxygen Therapy: {Therapy; copd oxygen:67812} Ventilator: { CC Vent List:802906242} Rehab Therapies: {THERAPEUTIC INTERVENTION:8330583986} Weight Bearing Status/Restrictions: { CC Weight Bearin} Other Medical Equipment (for information only, NOT a DME order): {EQUIPMENT:226930292} Other Treatments: Patient's personal belongings (please select all that are sent with patient): {CHP DME Belongings:129529544} RN SIGNATURE: {Esignature:085561574} CASE MANAGEMENT/SOCIAL WORK SECTION Inpatient Status Date: Readmission Risk Assessment Score: Readmission Risk Risk of Unplanned Readmission: 0 Discharging to Facility/ Agency Name: Address: Phone: Fax: Dialysis Facility (if applicable) Name: Address: Dialysis Schedule: Phone: Fax: Osd Clerk/Analysis Director signature: {Esignature:678241471} PHYSICIAN SECTION Prognosis: {Prognosis:4081434178} Condition at Discharge: { Patient Condition:467280842} Rehab Potential (if transferring to Rehab): {Prognosis:3581241923} Recommended Labs or Other Treatments After Discharge: Physician Certification: I certify the above information and transfer of Db Doan is necessary for the continuing treatment of the diagnosis listed and that she requires {Admit to Appropriate Level of Care:55071} for {GREATER/LESS:404612772} 30 days. Update Admission H&P: {CHP DME Changes in HandP:048415256} PHYSICIAN SIGNATURE: {Esignature:967794112} * Attachments The following attachments cannot be sent through Care Everywhere. * Back Pain: Urgent Symptoms (Malaysian) * Chronic Low Back Pain: Is It Time to Try Something New?: Video (Malaysian) [facility] instructions* Discharge Instr - YEYO* Fidencio Alberto RN - 04/25/2023 1:11 PM EST Continuity of Care Form Patient Name: Db Doan : 1970 Admit date: 04/25/2023 Discharge date: Code Status Order: Prior Advance Directives: Admitting Physician: No admitting provider for patient encounter. PCP: Jessenia Miller DO Discharging Nurse: Discharging Hospital Unit/Room#: [facility] Discharging Unit Phone Number: Emergency Contact: Extended Emergency Contact Information Primary Emergency Contact: Dolly Benitez Mobile Relation: Child Source Inspector needed? No Past Surgical History: Past Surgical History: Procedure Laterality Date SECTION SECTION 08/09/1999 &12/11/[address] PACHECO HC INJECTION PROCEDURE FOR SACROILIAC JOINT Left 02/02/2019 LEFT SACROILIAC JOINT INJECTION WITHOUT SEDATION (CPT 45062) performed by Khoa Gallagher MD at [facility] OR HERNIA REPAIR HIP SURGERY Left 03/17/2019 LEFT HIP INJECTION WITHOUT SEDATION (CPT 64395,69681) performed by Khoa Gallagher MD at [facility] OR NERVE BLOCK Left 02/02/2019 sacroiliac joint NERVE BLOCK Left 03/17/2019 hip injection TUBAL LIGATION 08/2012 Immunization History: Immunization History Administered Date(s) Administered COVID-19, MODERNA BLUE border, Primary or Immunocompromised, (age 12y+), IM, 100 mcg/0.5mL 05/31/2020, 06/28/2020, 03/06/2021 COVID-19, MODERNA Bivalent, (age 12y+), IM, 50 mcg/0.5 mL 12/30/2021 Influenza, FLUCELVAX, (age 6 mo+), MDCK, PF, 0.5mL 01/30/2021 Active Problems: Patient Active Problem List Diagnosis Code Migraine without aura G43.009 Cervicalgia M54.2 Displacement of cervical intervertebral disc without myelopathy M50.20 Brachial neuritis or radiculitis M54.12 Cervical radiculopathy M54.12 Lumbar radiculopathy M54.16 Disc displacement, lumbar M51.26 Intractable pain R52 PTSD (post-traumatic stress disorder) F43.10 Sprain or strain of cervical spine [id number] Reactive depression F32.9 Other chronic pain G89.29 Anxiety attack F41.0 Intervertebral disc disorders with radiculopathy, lumbar region M51.16 Generalized seizure disorder (HCC) G40.309 Annular tear of lumbar disc M51.36 DDD (degenerative disc disease), lumbar M51.36 Chronic pain syndrome G89.4 Lumbar facet arthropathy M47.816 Disorder of sacrum M53.3 Primary osteoarthritis of left hip M16.12 Sacroiliitis (HCC) M46.1 Pain in left hip M25.552 Lymphadenopathy R59.1 Shoulder pain M25.519 Anxiety F41.9 History of chronic pain Z87.898 Lumbar spondylosis M47.816 Lumbar disc disorder M51.9 Greater trochanteric bursitis of left hip M70.62 Centrilobular emphysema (HCC) J43.2 Isolation/Infection: Isolation No Isolation Patient Infection Status None to display Nurse Assessment: Last Vital Signs: BP 116/68 Pulse 84 Temp 98.4 F (36.9 C) (Oral) Resp 14 SpO2 100% Last documented pain score (0-10 scale): Pain Level: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 (Malaysian) documented in this encounterBON CoursePeer Work Phone: [phone]) 115-812503-01-2023 Instructions* Patient Instructions* Kraig Gómez DO - 05/02/2022 1:54 PM EST -Follow up with your provider who ordered the MRI lumbar spine to discuss an appeal for the denial. -Recommend low impact aerobic exercise and yoga as tolerated. -Complete a full course of physical therapy and follow home exercise program daily. -If not improved after physical therapy then discuss with Dr. Gallagher regarding consideration for trial of diagnostic lumbar facet blocks at the Left L3 and L4 medial branch and L5 dorsal ramus for theLeft L4-5 and L5-S1 facet joints. -Continue Cymbalta. If no further relief in 1 month then discuss with your primary care provider orDr. Gallagher regarding considering adding Lyrica or Gabapentin for potential added pain relief. -If not improving after the above recommendations then let us know and we can refer you to our [facility] for further multi-disciplinary treatment options. documented in this [facility]03[facility] History of Present illness Narrative* Kraig Gómez DO - 05/02/2022 1:00 PM EST Images from the original note were not included. [facility] [place] [facility] - Medical Spine Initial Exam SUBJECTIVE HISTORY OF PRESENT ILLNESS: Db Doan is a 52 year old female who presents with a chief complaint of low back pain. Referred by Dr. Jessenia Miller. Spine Surgery triage chart review was completed and MRI considered benign, patient was recommended to see medical spine interventionalist and was scheduled here today. Low back pain started in 2013 after a fall Chronic left sided low back pain dating back multiple years, occasionally on the right as well Pain radiates into the left buttock, travels posteriorly down left thigh to the knee Radicular leg pain is intermittent, low back pain is constant and more severe Low back pain>>leg symptoms Denies numbness/tingling in lower limbs Subjective left leg weakness Prior patient of Dr. Khoa Gallagher MD in [facility] -Has undergone multiple left SI joint injections with minimal relief -Also underwent left hip injection with mild improvement in groin pain -Per chart review, Dr. Gallagher was wanting to trial medial branch blocks, denied due to insurance, needed to do physical therapy -Patient reports she has refused PT in the past because she thinks she would not be able to tolerate it due to the pain -Patient had MRI lumbar spine completed, but the next day she received a letter stating the procedure was denied by insurance Low back pain is constant. Described as sharp, shooting, aching Low back pain worse with prolonged sitting, lying down Pain improves with standing, stretching Low back pain worse than leg pain, it is debilitating Patient states her low back pain is so severe that she sometimes has to urinate in bed because it is too painful for her to get up Patient has been unable to work for the last 2 years due to pain, but she wants to go back Started on Celebrex approximately 2 months ago, she is unsure if it is helping Denies numbness/tingling. Denies bowel/bladder incontinence or saddle anesthesia. The pain is currently 8/10. The pain can get to 10/10 at the highest and 8/10 at the lowest. PAIN EVALUATION 05/02/2022 1240 Pain Level: 8 Pain Location: Back-Lower Left side Description: Radiating;Sharp;Shooting;Stabbing;Throbbing;Aching Duration Amount of Time: 2013 Duration Units: Years Frequency: Continuous Comments: No Intervention Pain Radiation: Left buttock/posterior thigh Aggravating Factors: Sitting Alleviating Factors: Standing, stretching Pain Ratio: Left sided low back, left posterior thigh Pain Radiation: As above Current Treatment: Medications Cymbalta Celebrex Therapies None Prior Treatment: Medications [place] Gabapentin-prior to hernia surgery Medrol dose pack Therapies Physical therapy years ago for low back pain Prior spine interventions: Left SI joint 02/02/19-no benefit Left SI joint 03/17/19-no benefit Left hip injection 03/07/19 Lumbar epidural injection 11/2014-no improvement Prior spine surgery: None [place] Doug Faustin-Spine Medicine, for neck pain 10/2014 PMH: COPD Anxiety Depression Fibromyalgia Seizures h/o cancer: None PSH: See below Social Alcohol: Denies Tobacco: Smoker Illicit drugs: Denies Litigation: No Workers' Compensation: No YELLOW & BLUE FLAGS YES-Neg Attitude; Back Pain is Disabling YES-Avoiding Activity (for Fear of Pain) YES-Depression or Anxiety Disorders No-Social Problems No-Substance Use Disorder No-Job Dissatisfaction No-Financial Disincentives Depression Screening: PHQ-9 10/28/2014 Score 25 PHQ-9 Self-Harm (Item 9) response options: 0 Not at all 1 Several days 2 More than half the days 3 Nearly every day PHQ-9 Levels: 0-4 No - mild depression 5-9 Mild depression 10-14 Moderate depression 15-19 Moderately severe depression 20-27 Severe depression ACTIVE PROBLEM LIST Neck Pain, Chronic Arm Pain, Diffuse Bilateral Low Back Pain With Left-Sided Sciatica Leg Pain, Diffuse Generalized Anxiety Disorder Epilepsy (Hcc) Ddd (Degenerative Disc Disease), Lumbar Sprain Or Strain of Cervical Spine Sacroiliitis (Hcc) Primary Osteoarthritis of Left Hip Lymphadenopathy Disorder of Sacrum Centrilobular Emphysema (Hcc) Brachial Neuritis Or Radiculitis Anxiety Attack PAST MEDICAL HISTORY Diagnosis Date Anxiety attack Brachial neuritis or radiculitis NOS Centrilobular emphysema (HCC) 03/23/2022 Cervical radiculopathy Cervicalgia Disc displacement, lumbar Displacement of cervical intervertebral disc without myelopathy Generalized convulsive epilepsy without intractable epilepsy (HCC) Intractable pain Lumbar radiculopathy Migraine without aura Other chronic pain PTSD (post-traumatic stress disorder) Reactive depression Sprain or strain of cervical spine No past surgical history on file. Social History Tobacco Use Smoking status: Never FAMILY HISTORY Problem Relation Age of Onset Coronary Artery Disease Father ALLERGIES No Known Allergies CURRENT MEDICATIONS: DULoxetine (CYMBALTA) 30 mg capsule Take 30 mg by mouth once daily. lamoTRIgine (LAMICTAL) 25 mg tablet to be increased to 3 tabs bid lamoTRIgine (LAMICTAL) 100 mg tablet Take 1 tablet by mouth twice daily. gabapentin (NEURONTIN) 100 mg capsule Take 100 mg by mouth three times daily. HYDROcodone-Acetaminophen (NORCO) 10-325 mg per tablet Take 1 tablet by mouth every 6 hours as needed. LORazepam (ATIVAN) 1 mg tablet Take 1 mg by mouth twice daily. omeprazole (PRILOSEC) 20 mg capsule Take 20 mg by mouth once daily. temazepam (RESTORIL) 15 mg cap Take by mouth at bedtime as needed. KEPPRA 500MG TABLET Take two(2) tablets twice daily. REVIEW OF SYSTEMS: 14 systems reviewed and otherwise negative unless mentioned above. OBJECTIVE: PHYSICAL EXAM BP 131/81 Pulse 87 Ht 170.2 cm (5' 7) Wt 61.2 kg (134 lb 14.4 oz) SpO2 99% BMI 21.13 kg/m GENERAL APPEARANCE: Well nourished, well developed, and no apparent distress. NEURO PSYCH: Patient oriented to person, place, and time. Mood pleasant. Benign affect. Patient tearful during encounter regarding her pain and limitations. CARDIOVASCULAR: Palpable pulses. No edema noted. RESPIRATORY: non-labored breathing, no grunting/flaring/retractions SKIN: Head, neck, trunk, and extremities dry, intact and without lesions. MUSCULOSKELETAL VISUAL INSPECTION Posture: normal posture and alignment PALPATION: mild tenderness to palpation left lower lumbar SPINE ROM: LUMBAR ROM: Pain with lumbar extension. Full ROM MUSCLE BULK: Normal and symmetrical in the upper & lower extremities. MUSCLE TONE: Normal. MOTOR: 5/5 bilateral LE hip flexion, knee flexion, knee extension, ankle dorsiflexion, plantarflexion, EHL. SENSORY: sensation decreased to light touch left lower leg REFLEXES: 2+ bilateral UE, LE. LONG TRACT SIGNS: No clonus. No Hoffmans. BABINSKI: absent bilateral GAIT: Non-antalgic. Able to stand on toes and heels. Able to perform tandem gait. PERIPHERAL JOINT ROM: HIP ROM: Full ROM Without Pain STRAIGHT LEG TEST: negative bilateral Minimal tenderness to palpation over left greater trochanter Wayne testing negative for SI joint or groin pain Gaenslens negative for SI joint pain Thigh thrust negative Facet loading positive on the left Data Review: All images/reports listed below were personally reviewed by me unless otherwise indicated. MRI lumbar spine 03/22/22 -Done at outside hospital, no images available Per report impression 1. No fracture or bony destructive lesion. 2. Disc bulges in the lower lumbar spine, associated with annular tears at L4-5 and L5-S1. 3. Mild neural foraminal stenoses at L4-5. 4. No significant central canal or lateral recess stenosis. ASSESSMENT/PLAN DIAGNOSIS: M54.42, G89.29 Chronic left-sided low back pain with left-sided sciatica (primary encounter diagnosis) G89.4 Chronic pain syndrome M47.816 Lumbar spondylosis M51.36 Degeneration of lumbar intervertebral disc ASSESSMENT: Db Doan is a 52 year old female with PMH of COPD, fibromyalgia, anxiety/depression, seizure disorder, presenting with chronic left sided low back pain since 2013, sometimes right side, with intermittent radiation into the left posterior thigh. Low back pain more severe than leg pa in. Previously treated by pain management physician in [place], [place]. Underwent left SI joint injection x2 with minimal relief in symptoms. Per chart review, pain physician discussed trial of medial branch blocks however this was denied by insurance. The patient also notified us that her MRI lumbar spine that has been completed was denied by insurance. We discussed having the patient follow up with the provider who ordered her MRI to discuss an appeal for the denial. Patient was neurologically intact on exam. SI joint provacative maneuvers were negative. Facet loading was positive on the left>right. Patient does report intermittent radiation of pain that travels into her left posterior thigh, however I was unable to provoke this on exam. Her biggest concern is axial low back pain, which may be facet arthropathy. Her MRI lumbar spine report does not describe any significant canal or foraminal stenosis, but these images are not available for review. Explained to patient that minimal foraminal narrowing reported at L4-5 is not significant to cause her level of pain. Her pain could be discogenic, but has not responded to LESI or PT in the past. It seems she is primarily dealing with a chronic pain syndrome at this time. We recommend low impact aerobic exercise and yoga as tolerated for chronic pain. We also provided a script for formal PT. If symptoms persist despite physical therapy, recommend consideration for trial of diagnostic left L3 and L4 medial branch and L5 dorsal ramus blocks for the left L4-5 and L5-S1 facet joints. Patient notes she would pursue interventions local to her rather than at [facility] due to distance. Patient was encouraged to continue with Cymbalta, if no benefit after 1 month then she was encouraged to speak with her PCP or Dr. Gallagher regarding trial of Lyrica or Gabapentin. If no improvement with above recommendations, patient was encouraged to contact our office and we can refer her to the [facility] for further multi-disciplinary treatment options. PLAN: 1) Imaging/Diagnostic Studies: -Patient can have MRI lumbar images sent to us for further review if needed. -She will need to discuss MRI appeal options with the ordering provider. -Imaging reviewed as above. 2) Therapy/Rehabilitation: -Consult physical therapy for lumbar spine, chronic pain syndrome. Follow HEP. 3) Pharmacological Management: -Continue medications as prescribed, Duloxetine and Celebrex. Could consider trial of Lyrica/Gabapentin, will defer to PCP or Dr. Gallagher 4) Spine/MSK Interventions: -Consider diagnostic left L3, L4 medial branch and L5 dorsal ramus blocks if not improved after course of PT. -Patient states [facility] is too far from her, so she will seek treatment locally with Dr. Gallagher 5) Consultations: -None 6) Follow -up: -As needed after course of PT. -Patient instructed to call/seek urgent medical care with worsening of symptoms or change of neurological status. 7) Future treatment considerations: -XR lumbar if seeing further treatment at [facility] -[facility] for [facility] Matt Maggie, DO Spine Medicine Fellow Attending Note: Barger findings confirmed. Patient examined. Discussed with the fellow and the patient. All information in the note above was confirmed by me and edited as necessary for accurate information. Plan as outlined. I spent a total of 60 minutes on the date of the service which included preparing to see the patient, [id number] patient care, completing clinical documentation, obtaining and/or reviewing separately obtained history, performing a medically appropriate examination, counseling and educating the pat ient/family/caregiver, ordering medications, tests, or procedures, independently interpreting results (not separately reported), and communicating results to the patient/family/caregiver. SIGNATURE: Kraig Gómez DO PATIENT NAME: Db Doan DATE: May 02, 2022 TIME: 12:19 PM documented in this [facility]02-17-[facility]23 History of Present illness Narrative* Ghada Lincoln PA-C - 04/20/2022 4:07 PM EST Per Triage: Db Doan is a 51 year old female that requests evaluation of spine. Per review, they have symptoms of lower back pain, buttock pain, left thigh to knee pain. Left arm pain, left shoulder pain, neck pain. Difficulty walking - limps. Numbness pelvic area. Weakness left leg Referring provider: Dr. Jessenia Poe's Patient out of state: no 2nd opinion: no Prior spine surgery: no CMT: IBU Studies (Reports unless indicated) MRI lumbar spine report 03/22/22: FINDINGS: BONES/ALIGNMENT: There is normal alignment of the spine. The vertebral body heights are maintained. The bone marrow signal appears unremarkable. SPINAL CORD: The conus terminates normally. SOFT TISSUES: No paraspinal mass identified. L1-L2: There is no significant disc herniation, spinal canal stenosis or neural foraminal narrowing. L2-L3: There is no significant disc herniation, spinal canal stenosis or neural foraminal narrowing. L3-L4: Disc desiccation mild loss of disc height and a minimal disc bulge. No significant central canal, lateral recess or neural foraminal stenoses. L4-L5: Disc desiccation with a small disc bulge. Tiny annular tear in the posterior midline disc. Mild facet hypertrophy. No significant central canal or lateral recess stenosis. Mild neural foraminal stenoses. L5-S1: Disc desiccation with a small disc bulge. An annular tear is seen in the left neural foraminal segment of the disc. No significant central canal, lateral recess or neural foraminal stenoses. Disposition: Based on triage, recommend patient be scheduled with medical spine interventionalsit. MRI lumbar benign. If patient would like sooner appointment, is it okay to offer appointment with spine surgical SURINDER No (If patient is okay to see first available surgeon, please specify dx to aid in appropriate scheduling, such as cervical degenerative disease, scoliosis ) If VV, please advise pt to send or upload relevant outside images prior to appt so they will be available for review during the appt If office visit, please advise pt to hand carry relevant images on CD to the appt so they can be reviewed during the appt Ghada Lincoln PA-C * Jenn Haq, Research Coordinator - 04/20/2022 12:21 PM EST Patient name: Db Doan Are you being referred by a [facility] Provider or Pain Management Provider at [facility]? No If answer is YES please schedule directly with surgeon, triage does not need to be completed. Is this a self-referral No If not, who is the Referring Provider Dr. Jessenia Peo's office referring the patient to be seen in Neurosurgery for sacroiliitis. Is this a 2nd opinion? No Were you offered surgery? No MRI/CT/myelogram within 12 months? Yes If NO, please refer to medical spine or PCP to complete above imaging, triage does not need to be completed If YES, please ask for the name/address of the facility where the MRI/CT/myelogram was completed: imaging report in [facility] [address], [place] [address] MRI/CT/myelogram viewable in Epic: No If not, please provide [phone] to fax in imaging reports for review. Also, please inform patient to hand carry imaging disc to appointment. XR (spine) within 12 months: No If YES, please ask for the name/address of the facility where the XR was completed: Dr. Sandra's patients: Have you had previous EMG/Nerve Conduction Study, Ultrasound, or MRI for thesesame symptoms? If YES, please ask for the name/address of the facility where they were completed: Requested provider (First and Last name): any Are you interested in a virtual visit if offered? Yes 1. Where are you having symptoms related to this visit? Back pain Yes LBP, buttocks Leg pain Yes back of L thigh to knee Arm pain Yes L arm, L shoulder Neck pain Yes 2. Are you having any of the following symptoms: Difficulty walking Yes I walk with a limp. Numbness Yes pelvic area Weakness Yes L leg Trouble using your hands? No 3. Have you had any injections or physical therapy in the last 12 months? No If YES then please ask for the name/address of the facility where the injections and/or physical therapy was completed PT hurts too bad. Have you tried any other kinds of non-surgical treatments in the last 12 months? (For example: NSAIDS, muscle relaxants, analgesics, oral steroids, Chiropractor, Acupuncture): Ibuprofen 4. Are you currently taking daily prescribed narcotic medications for your current symptoms (For example Oxycodone, Hydrocodone, Tramadol, Morphine, Other)? No 5. Have you had previous spinal surgery for this same symptoms? No If YES please ask for the name of facility/address of where the surgery was completed: Additional Comments [phone] documented in this encounterL[facility]04-30-2021 History of Present illness Narrative* Sheridan Sanchez - 07/01/2020 4:48 PM EDT CLINICAL PHARMACY NOTE: MEDS TO [facility] Select Patient?: No Total # of Prescriptions Filled: 0 The following medications were delivered to the patient: norco 5-325 mg Total # of Interventions Completed: 7 Time Spent (min): 60 Additional Documentation: * Ban Blanc, OT - 07/01/2020 3:35 PM EDT Occupational Therapy Date:07/01/2020 Patient Name: Db Doan [facility] (OT) order received, patient's medical record reviewed, and OT evaluation attempted this afternoon; patient reported that she is independent with ADLs and functional transfers/mobility and declined completion of OT evaluation. Patient education provided regarding compensatory strategies for implementation into UB ADL routines; patient was encouraged to have assistance from family members for completion of IADLs, as needed. Patient stated that family can assist with IADLs, as needed, and denied having concerns about returning home upon discharge. No OT evaluation completed, per patient preference. [place] License Number: [id number] * Marcy Davila PT - 07/01/2020 10:42 AM EDT Physical Therapy Facility/Department: [address] MED SURG Initial Assessment NAME: Db Doan : 1970 Date of Service: 07/01/2020 Physical therapy orders received/treatment attempted and chart review completed. Patient reported being very tired and not wanting to get out of bed at this time and not able to be seen. Will attemptat a later time/date as able. Thank you for the opportunity to assist in the care of this patient. Marcy Davila PT, DPT License [id number] documented in this [facility] [employer] Phone: 1(704) 715-844304-30-2021 Hospital course Narrative* Jia Ellis MD - 07/01/2020 3:16 PM EDT Physician Discharge Summary Patient ID: Db Doan [id number] 50 y.o. 1970 Admit date: 06/30/2020 Discharge date and time: 07/01/2020 Discharge Diagnoses: Active Problems: Lymphadenopathy Shoulder pain Anxiety History of chronic pain Resolved Problems: * No resolved hospital problems. * Consults: IP CONSULT TO HEM/ONC Procedures: See below Hospital Course: 50-year-old female with lymphadenopathy after COVID-19 vaccination Suspects lymphadenopathy secondary to COVID-19 vaccination Symptomatic treatment Oncology is consulted --dscd case discharge home F/u as OP Discharge Exam: See progress note from today Condition: Stable Disposition: home Patient Instructions: Current Discharge Medication List START taking these medications Details HYDROcodone-acetaminophen (NORCO) 5-325 MG per tablet Take 1 tablet by mouth every 4 hours as needed for Pain for up to 3 days. Qty: 10 tablet, Refills: 0 Comments: Reduce doses taken as pain becomes manageable Associated Diagnoses: Lymphadenopathy ibuprofen (ADVIL;MOTRIN) 600 MG tablet Take 1 tablet by mouth 3 times daily as needed for Pain Qty: 15 tablet, Refills: 0 CONTINUE these medications which have NOT CHANGED Details lamoTRIgine (LAMICTAL) 150 MG tablet Take 1 tablet by mouth 2 times daily Qty: 180 tablet, Refills: 1 Associated Diagnoses: Sacroiliitis (HCC); PTSD (post-traumatic stress disorder) fluticasone (FLONASE) 50 MCG/ACT nasal spray 1 spray by Nasal route daily Qty: 1 Bottle, Refills: 5 Associated Diagnoses: Acute bacterial sinusitis; Sore throat albuterol sulfate HFA 108 (90 Base) MCG/ACT inhaler Inhale 2 puffs into the lungs every 6 hours as needed for Wheezing or Shortness of Breath Qty: 1 Inhaler, Refills: 5 Associated Diagnoses: Bronchitis azelastine (ASTELIN) 0.1 % nasal spray 1 spray by Nasal route 2 times daily Use in each nostril as directed Qty: 2 Bottle, Refills: 1 Associated Diagnoses: Acute sinusitis, recurrence not specified, unspecified location DULoxetine (CYMBALTA) 60 MG extended release capsule Take 1 capsule by mouth daily Qty: 90 capsule, Refills: 1 Associated Diagnoses: PTSD (post-traumatic stress disorder) Activity: activity as tolerated Diet: regular diet Follow-up with 1wk PCP, 2wks Oncology Signed: Jia Ellis MD 07/01/2020 3:16 PM documented in this encounter[facility] HospitalDealerTrack Phone: [phone] Hospital Discharge instructions* Instructions* Lourdes Hussein RN - 03/17/2019 [facility] Pain Management Department [phone] Post-Pain Block/ Radiofrequency Home Going Instructions 1-Go home, rest for the remainder of the day 2-Please do not lift over 20 pounds the day of the injection 3-If you received sedation No: alcohol, driving, operating lawn mowers, plows, tractors or other dangerous equipment until next morning. Do not make important decisions or sign legal documents for 24hours. You may experience light headedness, dizziness, nausea or sleepiness after sedation. Do not stay alone. A responsible adult must be with you for 24 hours. You could be nauseated from the medications you have received. Your IV site may be sore and bruised. 4-No dietary restrictions 5-Resume all medications the same day, blood thinners to be resumed 24 hours after injection 6-Keep the surgical site clean and dry, you may shower the next morning and remove the dressing. 7- No sitz baths, tub baths or hot tubs/swimming for 24 hours. 8- If you have any pain at the injection site(s), application of an ice pack to the area should be helpful, 20 minutes on/20 minutes off for next 48 hours. 9- Call [facility] pain management immediately at if you develop. ? Fever greater than 100.4 F ? Have bleeding or drainage from the puncture site ? Have progressive Leg/arm numbness and or weakness ? Loss of control of bowel and or bladder (wet/soil yourself) ? Severe headache with inability to lift head 10-You may return to work the next day documented in this encounterMer[facility] Clerm[facility] HospitalDealerTrack Phone: evaluation + Plan note No data available for this section [facility] Evaluation note* Diagnosis Lymphadenopathy- Primary Enlargement of lymph nodes Shoulder pain Pain in joint, shoulder region Anxiety Anxiety state, unspecified History of chronic pain documented in this encounter [employer] Phone: evaluation note* Diagnosis Supraclavicular adenopathy Enlargement of lymph nodes documented in this encounter [employer] Phone: evaluation note* Diagnosis Primary osteoarthritis of left hip Primary localized osteoarthrosis, pelvic region and thigh documented in this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 (OMNICEF) 300 MG capsule Take 1 capsule by mouth 2 times daily for 7 days 14 capsule 06/10/2024 5 hydrOXYzine HCl (ATARAX) 25 MG tablet Take 1 tablet by mouth every 8 hours as needed for Itching 9 tablet 06/10/2024 5 Prescription Sig Dispense Quantity Refills Last Filled Start Date End Date varenicline (CHANTIX CONTINUING MONTH BEE) 1 MG tablet Take 0.5 mg once daily for 3 days, 0.5 mg twice daily for 3 days. Take 2 tablets (1mg) twice daily following. 20 tablet 07/01/2024 ondansetron (ZOFRAN-ODT) 4 MG disintegrating tablet Take 1 tablet by mouth 3 times daily as needed for Nausea or Vomiting 21 tablet 07/01/2024 lidocaine 4 % external patch Place 1 patch onto the skin daily 30 patch 07/01/2024 5 predniSONE (DELTASONE) 50 MG tablet Take 1 tablet by mouth daily for 5 days 5 tablet 07/01/2024 5 methocarbamol (ROBAXIN-750) 750 MG tablet Take 1 tablet by mouth 3 times daily for 3 days 9 tablet 07/01/2024 5 guaiFENesin (MUCINEX) 600 MG extended release tablet Take 1 tablet by mouth 2 times daily for 15 days 30 tablet 07/01/2024 5 Prescription Sig Dispense Quantity Refills Last Filled Start Date End Date HYDROcodone-acetam inophen (NORCO) 5-325 MG per tabletIndications: Chronic left shoulder pain,Bilateral hip pain Take 1 tablet by mouth every 4 hours as needed for Pain for up to 3 days. Intended supply: 3 days. Take lowest dose possible to manage pain Max Daily Amount: 6 tablets 18 tablet 08/01/2024 5 predniSONE (DELTASONE) 50 MG tablet Take 1 tablet by mouth daily for 5 days 5 tablet 08/01/2024 5 guaiFENesin (MUCINEX) 600 MG extended release tablet Take 1 tablet by mouth 2 times daily for 15 days 30 tablet 08/01/2024 5 methocarbamol (ROBAXIN) 500 MG tablet Take 1 tablet by mouth 4 times daily for 10 days 40 tablet 08/01/2024 5 ibuprofen (ADVIL;MOTRIN) 600 MG tablet Take 1 tablet by mouth every 6 hours as needed for Pain 120 tablet 3 08/01/2024 Prescription Sig Dispense Quantity Refills Last Filled Start Date End Date famotidine (PEPCID) 20 MG tablet Take 1 tablet by mouth 2 times daily 60 tablet 08/06/2024 metoclopramide (REGLAN) 10 MG tablet Take 1 tablet by mouth 3 times daily as needed (nausea) 15 tablet 08/06/2024 ondansetron (ZOFRAN-ODT) 4 MG disintegrating tablet Take 1 tablet by mouth 3 times daily as needed for Nausea or Vomiting 21 tablet 08/06/2024 Care Teams (unrecognized sec tion and content) Team Status: Active Member Role Status Dates Jessenia Ashleyjoy Primary Care Provider Active Team Status: Inactive Member Role Status Dates [facility] Primary Care Provider Active S tart: May 20, 2024 End: May 20, 2024 Maria Elena Montalvo MD Attending Provider Active Start: May 20, 2024 End: May 20, 2024 Team Status: Active Member Role Status Dates [facility] Primary Care Provider Active S tart: March 08, 2024 Erica Alvarez DO Attending Provider Active St art: March 08, 2024 Team Status: Inactive Member Role Status Dates Jessenia Qasimrobert Primary Care Provider Active S tart: March 25, 2024 End: March 25, 2024 Maria Elena Montalvo MD Attending Provider Active Start: March 25, 2024 End: March 25, 2024 [employer] Salesperson Relationship Specialty Start Date End Date Jessenia Miller DO [address] [place] [facility] [place] [address] PCP - General Family Medicine 12/03/18 [employer] Salesperson Relationship Specialty Start Date End Date Jessenia Miller DO [address] [place] [place] [address] PCP - General Family Medicine 12/03/18 [employer] Salesperson Relationship Specialty Start Date End Date Jessenia Miller DO [address] [place] [address] PCP - General Family Medicine 12/03/18 [employer] Salesperson Relationship Specialty Start Date End Date Jessenia Miller DO [address] [place] [address] PCP - General Family Medicine 12/03/18 [employer] Salesperson Relationship Specialty Start Date End Date Jessenia Miller [address] [place] [place] [address] PCP - General Family Medicine 03/09/22 AshleyJessenia hamilton [address] [place] [address] Referring Family Medicine 03/09/22 [employer] Salesperson Relationship Specialty Start Date End Date Jessenia Miller [address] [place] [address] PCP - General Family Medicine 03/09/22 MorisJessenia [address] [place] [address] Referring Family Medicine 03/09/22 [employer] Salesperson Relationship Specialty Start Date End Date Moris Jessenia Tyler [address] [place] [address] PCP - General Family Medicine 12/03/18 Team Status: Inactive Member Role Status Dates Jessenia Miller Primary Care Provider Active Simba Latham DO Attending Provider Active [employer] Salesperson Relationship Specialty Start Date End Date AshleyavivarobertJessenia DO [address] [place] [address] PCP - General Family Medicine 12/03/18 [employer] Salesperson Relationship Specialty Start Date End Date QasimJessenia jones Timoteo [address] [place] [address] PCP - General Family Medicine 03/09/22 Moris Jessenia Timoteo [address] [place] [address] Referring Family Medicine 03/09/22 Jaime Davis [address] [place] [address] [place] [address] Referring Orthopedics 10/15/22 [employer] Salesperson Relationship Specialty Start Date End Date Jessenia Miller [address] [place] [place] [address] PCP - General Family Medicine 03/09/22 Jessenia Miller [address] [place] [address] Referring Family Medicine 03/09/22 Jaime Davis [address] [phone] Referring Orthopedics 10/15/22 Team Status: Active Member Role Status Dates Jaime Davis Primary Care Provider Active Team Status: Inactive Member Role Status Dates Jaime Davis Primary Care Provider Active Patric Dias MD Emergency Provider Active [employer] Sales[employer] Relationship Specialty Start Date End Date Jessenia Miller [address] [place] [place] [address] PCP - General Family Medicine 03/09/22 Jessenia Miller [address] [place] [address] Referring Family Medicine 03/09/22 Jaime Davis [address] [place] [phone] Referring Orthopedics 10/15/22 [employer] Salesperson Relationship Specialty Start Date End Date Jaime Davis MD [address] [facility], [address] [place], [place] [address] PCP - General 10/06/22 Team Status: Inactive Member Role Status Dates Jaime Davis Primary Care Provider Active Sta rt: November 25, 2022 End: November 25, 2022 Patric Dias MD Emergency Provider Active Start: November 25, 2022 End: November 25, 2022 Team Status: Inactive Member Role Status Dates Jaime Davis Primary Care Provider Active Sta rt: December 21, 2022 End: December 21, 2022 Homer Soria MD Emergency Provider Active Sta rt: December 21, 2022 End: December 21, 2022 [employer] Salesperson Relationship Specialty Start Date End Date Jaime Davis MD [address] [place] [address], [address] [address] PCP - General 10/06/22 [employer] Salesperson Relationship Specialty Start Date End Date Jaime Davis MD [address] [place] [address], [address] [id number] PCP - General 10/06/22 [employer] Salesperson Relationship Specialty Start Date End Date Jessenia Miller DO [address] [place] [address] PCP - General Family Medicine 12/03/18 Team Status: Inactive Member Role Status Dates Jaime Davis Primary Care Provider Active Sta rt: December 21, 2022 End: December 21, 2022 Homer Soria MD Emergency Provider Active Sta rt: December 21, 2022 End: December 21, 2022 Mariely Chawla MD Attending Provider Active St art: December 21, 2022 Team Status: Inactive Member Role Status Dates Jaime Davis Primary Care Provider Active Sta rt: March 06, 2023 End: March 07, 2023 Kathia Gallego MD Emergency Provider Active Star t: March 06, 2023 End: March 07, 2023 [employer] Salesperson Relationship Specialty Start Date End Date Jaime Davis MD [address] [place] [address], [address] [id number] PCP - General 10/06/22 Team Status: Active Member Role Status Dates None primary care physician Active Start : April 04, 2023 Siddhartha Crisostomo MD EMERGENCY Active Start: ary 2023 None FAMILY Active Start: April 04, 2023 DB DOAN Guarantor Active Start: 2023 [employer] Salesperson Relationship Specialty Start Date End Date Ashleyavivarobert Jessenia DO Jayson [address] [place] [address] PCP - General Family Medicine 12/03/18 [employer] Salesperson Relationship Specialty Start Date End Date Maria Elena Montalvo MD [address] [place] [phone] PCP - General Internal Medicine 05/06/23 Team Status: Active Member Role Status Dates None primary care physician Active Start : May 17, 2023 Bob Dominguez MD EMERGENCY Active Start: May 17, 2023 None FAMILY Active Start: May 162023 DB DOAN Guarantor Active Start: May 17, 2023 Team Status: Active Member Role Status Dates No Primary Care Physician Primary Care Provider Active Team Status: Inactive Member Role Status Dates Dr. Addy Faith MD Emergency Provider Active No Primary Care Physician Primary Care Provider Active [employer] Sales[employer] Relationship Specialty Start Date End Date Maria Elena Montalvo MD [address] [place] [phone] PCP - General Internal Medicine 05/06/23 Team Status: Active Member Role Status Dates Basem N Selvin Primary Care Provider Active Team Status: Inactive Member Role Status Dates Basem N Selvin Primary Care Provider Active Start: June 02, 2023 End: June 02, 2023 Naeem Heredia MD Emergency Provider Active Star t: June 02, 2023 End: June 02, 2023 Team Status: Active Member Role Status Dates None primary care physician Active Start : June 02, 2023 Edwar Raygoza MD EMERGENCY Active Start: M 2023 None FAMILY Active Start: June 012023 DB DOAN Guarantor Active Start: June 02, 2023 [employer] Salesperson Relationship Specialty Start Date End Date Maria Elena Montalvo MD [address] [place] [address] PCP - General Internal Medicine 05/06/23 Team Status: Inactive Member Role Status Dates No Primary Care Physician Primary Care Provider Active Dr. Jose Alfaro , Emergency Provider Active Team Status: Inactive Member Role Status Dates Dr. Addy Faith MD Attending Provider, Emergency Provi isaiah Active No Primary Care Physician Primary Care Provider Active [employer] Salesperson Relationship Specialty Start Date End Date Jessenia Miller [address] [place] [address] PCP - General Family Medicine 03/09/22 Jessenia Miller [address] [place] [address] Referring Family Medicine 03/09/22 Jaime Davis [address] [place] [phone] Referring Orthopedics 10/15/22 Team Status: Active Member Role Status Dates None primary care physician Active Start : August 01, 2023 Siddhartha Crisostomo MD EMERGENCY Active Start: Sonya arthur 2023 None FAMILY Active Start: July DB DOAN Guarantor Active Start: July 312023 [employer] Salesperson Relationship Specialty Start Date End Date Maria Elena Montalvo MD [address] [address] 08/06/23 Team Status: Active Member Role Status Dates Babs Lou Emergency Provider Active Start: Felicity mendoza 2022 Jaime Davis Primary Care Provider Active Sta rt: August 12, 2022 ER WTBS Emergency Provider Active Start: Ju ne 2022 Mike Bowen Emergency Provider Active Start: Ju ne 2022 Donald Lainez Emergency Provider Active Start: Ju ne 2022 Cuca Thomas Emergency Provider Active Start: Ju ly 2022 Togoldie Saavedra Emergency Provider Active Start: Se ptember 2022 Unlisted provider (Unknown) Primary Care Provider Acti ve Start: June 15, 2023 ISIAH STARKS Emergency Contact #1 Active JOESPH BOISSEVAIN Emergency Contact #2 Active [employer] Salesperson Relationship Specialty Start Date End Date Jaime Davis MD [address] [place] [address], [address] [place] [address] PCP - General 10/06/22 [employer] Salesperson Relationship Specialty Start Date End Date Maria Elena Montalvo MD [address] [facility] [address] [place], [place] [address] PCP - General Internal Medicine 08/12/23 Jessenia Miller [address] [place], [place] [address] Referring Family Medicine 03/09/22 Jaime Davis [address] [place] [address] [address] [place] [address] Referring Orthopedics 10/15/22 [employer] Salesperson Relationship Specialty Start Date End Date Maria Elena Montalvo MD [address] [place] [address] PCP - General Internal Medicine 08/12/23 Jessenia Miller [address] [place], [place] [address] Referring Family Medicine 03/09/22 Jaime Davis [address] [phone] Referring Orthopedics 10/15/22 [employer] Salesperson Relationship Specialty Start Date End Date Maria Elena Montalvo MD [address] [facility] [address] PCP - General Internal Medicine 08/12/23 Jessenia Miller [address] [place] [address] Referring Family Medicine 03/09/22 Jaime Davis [address] [phone] Referring Orthopedics 10/15/22 [employer] Salesperson Relationship Specialty Start Date End Date SelvinMaria Elena cortes MD [address] [facility] [place] [address] PCP - General Internal Medicine 08/12/23 Jessenia Miller [address] [place] [address] Referring Family Medicine 03/09/22 Jaime Davis [address] [phone] Referring Orthopedics 10/15/22 [employer] Salesperson Relationship Specialty Start Date End Date Maria Elena Montalvo MD [address] [facility] [place] [place] [address] PCP - General Internal Medicine 08/12/23 Jessenia Miller [address] [place] [address] Referring Family Medicine 03/09/22 Jaime Davis [address] [phone] Referring Orthopedics 10/15/22 [employer] Salesperson Relationship Specialty Start Date End Date Maria Elena Montalvo MD [address] [place] [phone] PCP - General Internal Medicine 05/06/23 [employer] Salesperson Relationship Specialty Start Date End Date Maria Elena Montalvo MD [address] [address] 08/06/23 Team Status: Active Member Role Status Dates None primary care physician Active Start : September 05, 2023 Edwar Raygoza MD EMERGENCY Active Start: J han 2023 None FAMILY Active Start: September DB [employer] Guarantor Active Start: September 042023 [employer] Salesperson Relationship Specialty Start Date End Date Maria Elena Montalvo MD [address] [facility] [place] [address] PCP - General Internal Medicine 08/12/23 Jessenia Miller [address] [place] [address] Referring Family Medicine 03/09/22 Jaime Davis [address] [phone] Referring Orthopedics 10/15/22 [employer] Salesperson Relationship Specialty Start Date End Date Selvin, Basem N, MD [address] [facility] [place] [address] PCP - General Internal Medicine 08/12/23 Jessenia Miller [address] [place] [address] Referring Family Medicine 03/09/22 Jaime Davis [address] [phone] Referring Orthopedics 10/15/22 [employer] Salesperson Relationship Specialty Start Date End Date Maria Elena Montalvo MD [address] [place] [phone] PCP - General Internal Medicine 05/06/23 Team Status: Active Member Role Status Dates Jaime Davis Primary Care Provider Active Sta rt: November 19, 2022 Shakeel Saavedra Emergency Provider Active Start: Se ptember 2022 Donald Lainez Emergency Provider Active Start: Oc tober 2022 ER WTCARY Emergency Provider Active Start: De cember 2022 Babs Lou Emergency Provider Active Start: Ap ril 2023 Unlisted provider (Unknown) Primary Care Provider Acti ve Start: June 15, 2023 ISIAH STARSK Emergency Contact #1 Active JOESPH BOISSEVAIN Emergency Contact #2 Active [employer] Salesperson Relationship Specialty Start Date End Date Maria Elena Montalvo MD [address] [facility] [place] [address] PCP - General Internal Medicine 08/12/23 Jessenia Miller [address] [place] [address] Referring Family Medicine 03/09/22 Jaime Davis [address] [facility] [address] [place] [phone] Referring Orthopedics 10/15/22 [employer] Salesperson Relationship Specialty Start Date End Date Maria Elena Montalvo MD [address] [facility] [place] [address] PCP - General Internal Medicine 08/12/23 Jessenia Miller [address] [place], [place] [address] Referring Family Medicine 03/09/22 Jaime Davis [address] [facility] [address] [place] [phone] Referring Orthopedics 10/15/22 Team Status: Active Member Role Status Dates None primary care physician Active Start : October 11, 2023 Bob Dominguez MD EMERGENCY Active Start: October 11, 2023 None FAMILY Active Start: October 102023 DB DOAN Guarantor Active Start: October 11, 2023 [employer] Salesperson Relationship Specialty Start Date End Date Maria Elena Montalvo MD [address] [place] [phone] PCP - General Internal Medicine 05/06/23 [employer] Salesperson Relationship Specialty Start Date End Date Maria Elena Montalvo MD [address] [address] 08/06/23 Team Status: Active Member Role Status Dates None primary care physician Active Start : November 10, 2023 Clive Campbell DO EMERGENCY Active Start: November 10, 2023 None FAMILY Active Start: 2023 DB DOAN Guarantor Active Start: 2023 Team Status: Active Member Role Status Dates None primary care physician Active Start : November 20, 2023 Bob Dominguez MD EMERGENCY Active Start: November 20, 2023 None FAMILY Active Start: r 2023 DB Timoteo FRANKI Guarantor Active Start: 2023 [employer] Salesperson Relationship Specialty Start Date End Date Maria Elena Montalvo MD [address] [facility] [address] [place] [address] 08/06/23 [employer] Salesperson Relationship Specialty Start Date End Date Jessenia Miller [address] [place] [address] PCP - General Family Medicine 03/09/22 08/11/23 Jessenia Miller [address] [place], [place] [address] Referring Family Medicine 03/09/22 Jiame Davis [address] [facility] [place] [address] [place] [phone] Referring Orthopedics 10/15/22 Team Status: Active Member Role Status Dates Jaime Davis Primary Care Provider Active Sta rt: December 23, 2022 Donald Lainez Emergency Provider Active Start: Oc tober 2022 ER WTCARY Emergency Provider Active Start: De savita 2022 Babs Lou Emergency Provider Active Start: Ap ril 2023 Unlisted provider (Unknown) Primary Care Provider Acti ve Start: June 15, 2023 Shakeel Saavedra Emergency Provider Active Start: Ju ly 2023 Elizabeth Go Emergency Provider Active Start: November 23, 2023 ISIAH STARKS Emergency Contact #1 Active JOESPH BENITEZ Emergency Contact #2 Active [employer] Salesperson Relationship Specialty Start Date End Date Maria Elena Montalvo MD [address] [place] [address] PCP - General Internal Medicine 05/06/23 Team Status: Active Member Role Status Dates None primary care physician Active Start : December 07, 2023 Siddhartha Crisostomo MD EMERGENCY Active Start: Oc tober 2023 None FAMILY Active Start: December 07, 2023 DB Mahmood FRANKI Guarantor Active Start: Octobe r 2023 [employer] Salesperson Relationship Specialty Start Date End Date Maria Elena Montalvo MD [address] [place] [address] PCP - General Internal Medicine 08/12/23 Jessenia Miller [address] [place] [address] Referring Family Medicine 03/09/22 Jaime Davis [address] [phone] Referring Orthopedics 10/15/22 [employer] Salesperson Relationship Specialty Start Date End Date Maria Elena Montalvo MD [address] [place] [address] PCP - General Internal Medicine 08/12/23 Jessenia Miller [address] [place] [address] Referring Family Medicine 03/09/22 Jaime Davis [address] [phone] Referring Orthopedics 10/15/22 [employer] Salesperson Relationship Specialty Start Date End Date Maria Elena Montalvo MD [address] [place] [phone] PCP - General Internal Medicine 12/20/23 [employer] Salesperson Relationship Specialty Start Date End Date Maria Elena Montalvo MD [address] [place] [address] PCP - General Internal Medicine 08/12/23 Jessenia Miller [address] [place] [address] Referring Family Medicine 03/09/22 Jaime Davis [address] [phone] Referring Orthopedics 10/15/22 [employer] Salesperson Relationship Specialty Start Date End Date Maria Elena Montalvo MD [address] [place] [phone] PCP - General Internal Medicine 05/06/23 [employer] Salesperson Relationship Specialty Start Date End Date Maria Elena Montalvo MD [address] [facility] [address] PCP - General Internal Medicine 08/12/23 Jessenia Miller [address] [place] [address] Referring Family Medicine 03/09/22 Jaime Davsi [address] [phone] Referring Orthopedics 10/15/22 [employer] Salesperson Relationship Specialty Start Date End Date Maria Elena Montalvo MD [address] [place] [address] PCP - General Internal Medicine 05/06/23 [employer] Salesperson Relationship Specialty Start Date End Date Maria Elena Montalvo MD [address] [place] [address] PCP - General Internal Medicine 12/20/23 [employer] Salesperson Relationship Specialty Start Date End Date Maria Elena Montalvo MD [address] [place] [address] PCP - General Internal Medicine 05/06/23 Team Status: Active Member Role Status Dates None primary care physician Active Start : January 14, 2024 Edwra Raygoza MD EMERGENCY Active Start: N ovember 2023 None FAMILY Active Start: January 14, 2024 DB DOAN Guarantor Active Start: b er 2023 Team Status: Active Member Role Status Dates None primary care physician Active Start : January 16, 2024 Jayson Henry MD EMERGENCY Active Start: No vember 2023 None FAMILY Active Start: January 16, 2024 DB DOAN Guarantor Active Start: b er 2023 Team Status: Active Member Role Status Dates None primary care physician Active Start : January 19, 2024 Clive Campbell DO EMERGENCY Active Start: January 19, 2024 None FAMILY Active Start: January 19, 2024 DB DOAN Guarantor Active Start: b er 2023 [employer] Salesperson Relationship Specialty Start Date End Date Maria Elena Montalvo MD [address] [place] [address] PCP - General Internal Medicine 12/20/23 [employer] Salesperson Relationship Specialty Start Date End Date Maria Elena Montalvo MD [address] [place] [phone] PCP - General Internal Medicine 12/20/23 [employer] Salesperson Relationship Specialty Start Date End Date Jaime Davis MD [address] [place] [id number] PCP - General 10/06/22 [employer] Salesperson Relationship Specialty Start Date End Date Maria Elena Montalvo MD [address] [place] [address] PCP - General Internal Medicine 12/20/23 [employer] Salesperson Relationship Specialty Start Date End Date Jaime Davis MD [address] [place] [address], [address] [phone] PCP - General 10/06/22 [employer] Salesperson Relationship Specialty Start Date End Date Jaime Davis MD [address] [place] [id number] PCP - General 10/06/22 [employer] Salesperson Relationship Specialty Start Date End Date Maria Elena Montalvo MD [address] [place] [address] PCP - General Internal Medicine 05/06/23 [employer] Salesperson Relationship Specialty Start Date End Date Maria Elena Montalvo MD [address] [place] [address] PCP - General Internal Medicine 05/06/23 [employer] Salesperson Relationship Specialty Start Date End Date Maria Elena Montalvo MD [address] [place] [address] PCP - General Internal Medicine 05/06/23 [employer] Salesperson Relationship Specialty Start Date End Date Maria Elena Montalvo MD [address] [place] [phone] PCP - General Internal Medicine 05/06/23 [employer] Salesperson Relationship Specialty Start Date End Date Maria Elena Montalvo MD [address] [place] [address] PCP - General Internal Medicine 05/06/23 Team Status: Active Member Role Status Dates None primary care physician Active Start : March 19, 2024 Jayson Henry MD EMERGENCY Active Start: Hakan tesfaye 2024 None FAMILY Active Start: March 19, 2024 DB DOAN Guarantor Active Start: Anabell arthur 2024 [employer] Salesperson Relationship Specialty Start Date End Date Maria Elena Montalvo MD [address] [facility] [address] [place], [place] [address] PCP - General Internal Medicine 08/12/23 Jessenia Miller [address] [place] [address] Referring Family Medicine 03/09/22 Jaime Davis [address] [facility] [address] [place] [phone] Referring Orthopedics 10/15/22 Maria Elena Montalvo MD [address] [facility] [address] [place] [address] Referring Internal Medicine 03/26/24 [employer] Salesperson Relationship Specialty Start Date End Date Maria Elena Montalvo MD [address] [place] [phone] PCP - General Internal Medicine 05/06/23 [employer] Salesperson Relationship Specialty Start Date End Date Maria Elena Montalvo MD [address] [place] [phone] PCP - General Internal Medicine 05/06/23 [employer] Salesperson Relationship Specialty Start Date End Date Maria Elena Montalvo MD [address] [place] [phone] PCP - General Internal Medicine 05/06/23 [employer] Salesperson Relationship Specialty Start Date End Date Maria Elena Montalvo MD [address] [place] [phone] PCP - General Internal Medicine 12/20/23 [employer] Salesperson Relationship Specialty Start Date End Date SelvinMaria Elena cortes MD [address] [place] [phone] PCP - General Internal Medicine 05/06/23 [employer] Salesperson Relationship Specialty Start Date End Date SlevinMaria Elena cortes MD [address] [facility] [place] [address] PCP - General Internal Medicine 08/12/23 Jessenia Miller [address] [place] [address] Referring Family Medicine 03/09/22 Jaime Davis [facility] [address] [phone] Referring Orthopedics 10/15/22 SelvinMaria Elena cortes MD [address] [facility] [address] [place] [address] Referring Internal Medicine 03/26/24 [employer] Salesperson Relationship Specialty Start Date End Date SelvinMaria Elena cortes MD [address] [place] [address] PCP - General Internal Medicine 12/20/23 [employer] Salesperson Relationship Specialty Start Date End Date Maria Elena Montalvo MD [address] [place] [address] PCP - General Internal Medicine 05/06/23 [employer] Salesperson Relationship Specialty Start Date End Date Maria Elena Montalvo MD [address] [place] [address] PCP - General Internal Medicine 05/06/23 [employer] Salesperson Relationship Specialty Start Date End Date Maria Elena Montalvo MD [address] [place] [address] PCP - General Internal Medicine 05/06/23 [employer] Salesperson Relationship Specialty Start Date End Date Maria Elena Montalvo MD [address] [place] [address] PCP - General Internal Medicine 05/06/23 [employer] Salesperson Relationship Specialty Start Date End Date Maria Elena Montalvo MD [address] [place] [address] PCP - General Internal Medicine 05/06/23 [employer] Salesperson Relationship Specialty Start Date End Date Maria Elena Montalvo MD [address] [place] [phone] PCP - General Internal Medicine 08/12/23 Jessenia Miller [address] [place] [address] Referring Family Medicine 03/09/22 Jaime Davis [address] [phone] Referring Orthopedics 10/15/22 Maria Elena Montalvo MD [address] [place] [phone] Referring Internal Medicine 03/26/24 [employer] Salesperson Relationship Specialty Start Date End Date Maria Elena Montalvo MD [address] [place] [phone] PCP - General Internal Medicine 05/06/23 [employer] Salesperson Relationship Specialty Start Date End Date Maria Elena Montalvo MD [address] [phone] PCP - General Internal Medicine 08/12/23 Jessenia Miller [address] [place] [address] Referring Family Medicine 03/09/22 Jaime Davis [address] [place] [phone] Referring Orthopedics 10/15/22 Maria Elena Montalvo MD [address] [phone] Referring Internal Medicine 03/26/24 Team Status: Active Member Role Status Dates None primary care physician Active Start : July 07, 2024 Edwar Raygoza MD EMERGENCY Active Start: ay 2024 None FAMILY Active Start: July 07, 2024 DB DOAN Guarantor Active Start: July [employer] Salesperson Relationship Specialty Start Date End Date Maria Elena Montalvo MD [address] [place] [phone] PCP - General Internal Medicine 05/06/23 [employer] Salesperson Relationship Specialty Start Date End Date Maria Elena Montalvo MD [address] [place] [phone] PCP - General Internal Medicine 12/20/23 [employer] Salesperson Relationship Specialty Start Date End Date Maria Elena Montalvo MD [address] [place] [phone] PCP - General Internal Medicine 05/06/23 [employer] Salesperson Relationship Specialty Start Date End Date Maria Elena Montalvo MD [address] [place] [phone] PCP - General Internal Medicine 12/20/23 Source Comments (unrecognize d section and content) In the event this informatio n is protected by the Federal Confidentiality of Alcohol and Drug Abuse Patient Records regulations: The Federal rules restrict any use of the information to criminally investigate or prosecute any alcohol or drug abuse patient.[facility] the event this information is protected by the Federal Confidentiality of Alcohol and Drug Abuse Patient Records regulations: The Federal rules restrict any use of the information to criminally investigate or prosecute any alcohol or drug abuse patient.[facility] the event this information is protected by the Federal Confidentiality of Alcohol and Drug Abuse Patient Records regulations: The Federal rules restrict any use of the information to criminally investigate or prosecute any alcohol or drug abuse patient.[facility] the event this information is protected by the Federal Confidentiality of Alcohol and Drug Abuse Patient Records regulations: The Federal rules restrict any use of the information to criminally investigate or prosecute any alcohol or drug abuse patient.[facility] the event this information is protected by the Federal Confidentiality of Alcohol and Drug Abuse Patient Records regulations: The Federal rules restrict any use of the information to criminally investigate or prosecute any alcohol or drug abuse patient.[facility] the event this information is protected by the Federal Confidentiality of Alcohol and Drug Abuse Patient Records regulations: The Federal rules restrict any use of the information to criminally investigate or prosecute any alcohol or drug abuse patient.[facility] the event this information is protected by the Federal Confidentiality of Alcohol and Drug Abuse Patient Records regulations: The Federal rules restrict any use of the information to criminally investigate or prosecute any alcohol or drug abuse patient.[facility] the event this information is protected by the Federal Confidentiality of Alcohol and Drug Abuse Patient Records regulations: The Federal rules restrict any use of the information to criminally investigate or prosecute any alcohol or drug abuse patient.[facility] the event this information is protected by the Federal Confidentiality of Alcohol and Drug Abuse Patient Records regulations: The Federal rules restrict any use of the information to criminally investigate or prosecute any alcohol or drug abuse patient.[facility] the event this information is protected by the Federal Confidentiality of Alcohol and Drug Abuse Patient Records regulations: The Federal rules restrict any use of the information to criminally investigate or prosecute any alcohol or drug abuse patient.[facility] the event this information is protected by the Federal Confidentiality of Alcohol and Drug Abuse Patient Records regulations: The Federal rules restrict any use of the information to criminally investigate or prosecute any alcohol or drug abuse patient.[facility] the event this information is protected by the Federal Confidentiality of Alcohol and Drug Abuse Patient Records regulations: The Federal rules restrict any use of the information to criminally investigate or prosecute any alcohol or drug abuse patient.[facility] the event this information is protected by the Federal Confidentiality of Alcohol and Drug Abuse Patient Records regulations: The Federal rules restrict any use of the information to criminally investigate or prosecute any alcohol or drug abuse patient.[facility] the event this information is protected by the Federal Confidentiality of Alcohol and Drug Abuse Patient Records regulations: The Federal rules restrict any use of the information to criminally investigate or prosecute any alcohol or drug abuse patient.[facility] the event this information is protected by the Federal Confidentiality of Alcohol and Drug Abuse Patient Records regulations: The Federal rules restrict any use of the information to criminally investigate or prosecute any alcohol or drug abuse patient.[facility] the event this information is protected by the Federal Confidentiality of Alcohol and Drug Abuse Patient Records regulations: The Federal rules restrict any use of the information to criminally investigate or prosecute any alcohol or drug abuse patient.[facility] the event this information is protected by the Federal Confidentiality of Alcohol and Drug Abuse Patient Records regulations: The Federal rules restrict any use of the information to criminally investigate or prosecute any alcohol or drug abuse patient.[facility] the event this information is protected by the Federal Confidentiality of Alcohol and Drug Abuse Patient Records regulations: The Federal rules restrict any use of the information to criminally investigate or prosecute any alcohol or drug abuse patient.[facility]In the event this information is protected by the Federal Confidentiality of Alcohol and Drug Abuse Patient Records regulations: The Federal rules restrict any use of the information to criminally investigate or prosecute any alcohol or drug abuse patient.[facility]In the event this information is protected by the Federal Confidentiality of Alcohol and Drug Abuse Patient Records regulations: The Federal rules restrict any use of the information to criminally investigate or prosecute any alcohol or drug abuse patient.[facility]In the event this information is protected by the Federal Confidentiality of Alcohol and Drug Abuse Patient Records regulations: The Federal rules restrict any use of the information to criminally investigate or prosecute any alcohol or drug abuse patient.[facility]In the event this information is protected by the Federal Confidentiality of Alcohol and Drug Abuse Patient Records regulations: The Federal rules restrict any use of the information to criminally investigate or prosecute any alcohol or drug abuse patient.[facility]In the event this information is protected by the Federal Confidentiality of Alcohol and Drug Abuse Patient Records regulations: The Federal rules restrict any use of the information to criminally investigate or prosecute any alcohol or drug abuse patient.[facility]In the event this information is protected by the Federal Confidentiality of Alcohol and Drug Abuse Patient Records regulations: The Federal rules restrict any use of the information to criminally investigate or prosecute any alcohol or drug abuse patient.[facility]In the event this information is protected by the Federal Confidentiality of Alcohol and Drug Abuse Patient Records regulations: The Federal rules restrict any use of the information to criminally investigate or prosecute any alcohol or drug abuse patient.[facility] Scheduled Active and Recently Administ ered Medications (unrecognized section and content) Medication Order 06/21/2022 06/22/2022 06/23/2022 ketorolac (TORADOL) injection 30 mg (COMPLETED) 30 mg, IntraMUSCular, ONCE, 1 dose, On 06/23/22 at 1430, Do not administer for more than 5 days. 1420 (Given - Provid er: Faina Tafoya RN) ondansetron (ZOFRAN-ODT) disintegrating tablet 4 mg (COMPLETED) 4 mg, Oral, ONCE, 1 dose, On 06/23/22 at 1400 1420 (Given - Provid er: Faina Tafoya RN) orphenadrine (NORFLEX) injection 60 mg (COMPLETED) 60 mg, IntraMUSCular, ONCE, 1 dose, On 06/23/22 at 1400 1420 (Given - Provid er: Faina Tafoya RN) oxyCODONE-acetaminophen (PERCOCET) 5-325 MG per tablet 1 tablet (COMPLETED) 1 tablet, Oral, ONCE, 1 dose, On 06/23/22 at 1600, Maximum dose of acetaminophen is 4000 mg from all sources in 24 hours. 1628 (Given - Provid er: Faina Tafoya RN) Scheduled Medication Order 07/29/2022 07/30/2022 07/31/2022 dexamethasone (DECADRON) injection 10 mg (COMPLETED) 10 mg, IntraMUSCular, ONCE, On 07/31/22 at 1345, For 1 dose 1407 (Given - Provid er: Laverne C Lutz, RN) lidocaine 4 % external patch 1 patch 1 patch, TransDERmal, Administer over 12 Hours, ONCE, On Sat07/31/22 at 1545, For 1 dose, Apply patch to left low back. 1545 (Due) orphenadrine (NORFLEX) injection 60 mg (COMPLETED) 60 mg, IntraMUSCular, ONCE, 1 dose, On Sat07/31/22 at 1345 1408 (Given - Provid er: Laverne Lutz RN) oxyCODONE-acetaminophen (PERCOCET) 5-325 MG per tablet 1 tablet (COMPLETED) 1 tablet, Oral, ONCE, 1 dose, On Sat07/31/22 at 1345, Maximum dose of acetaminophen is 4000 mg from all sources in 24 hours. 1406 (Given - Provid er: Laverne Lutz RN) Scheduled Medication Order 08/15/2022 08/16/2022 08/17/2022 gadobenate dimeglumine (MULTIHANCE) injection 10 mL (COMPLETED) 10 mL, IntraVENous, ONCE, 1 dose, On Sat08/17/22 at 0930 0924 (Given - Provid er: Ligia Cat) ketorolac (TORADOL) injection 30 mg (COMPLETED) 30 mg, IntraVENous, ONCE, 1 dose, On Sat08/17/22 at 0745, Do not administer for more than 5 days. 0754 (Given - Provid er: Siddhartha Trotter RN) orphenadrine (NORFLEX) injection 60 mg (COMPLETED) 60 mg, IntraMUSCular, ONCE, 1 dose, On Sat08/17/22 at 0745 0748 (Given - Provid er: Siddhartha Trotter RN) oxyCODONE-acetaminophen (PERCOCET) 5-325 MG per tablet 1 tablet (COMPLETED) 1 tablet, Oral, ONCE, 1 dose, On Sat08/17/22 at 1045, Maximum dose of acetaminophen is 4000 mg from all sources in 24 hours. 1046 (Given - Provid er: Kitty Cadena RN) Scheduled Medication Order 10/29/2022 10/30/2022 10/31/2022 acetaminophen (TYLENOL) tablet (COMPLETED) 1,000 mg, Oral, ONCE, 1 dose, On Sat10/31/22 at 0918 0859 (Given - Provid er: Job Berg) ketorolac (TORADOL) 30 MG/ML injection (COMPLETED) 30 mg, Intramuscular, ONCE, 1 dose, On Sat10/31/22 at 0918 0859 (Given - Provid er: Job Berg) lidocaine (LIDODERM) 5 % patch 1 Patch, Transdermal, EVERY 24 HOURS, First dose on Sat10/31/22 at 0918, Until Discontinued 858 (Patch Applied - Provider: Job Berg)2058 (Due: Patch Removal - Provider: Job Berg) Scheduled Medication Order 12/02/2022 12/03/2022 12/04/2022 orphenadrine (Norflex) injection 60 mg (COMPLETED) 60 mg, intramuscular, Once, On Sat12/04/22 at 1110, For 1 dose 111 (Given - Provid er: DEVORAH Olsen) oxyCODONE-acetaminophen (Percocet) 5-325 mg per tablet 1 tablet (COMPLETED) 1 tablet, oral, Once, On Sat12/04/22 at 1110, For 1 dose, If ordered PRN for pain, nurse is permitted to administer this medication for higher pain scores based on patient preference? Yes 1116 (Given - Provid er: DEVORAH Olsen) predniSONE (Deltasone) tablet 50 mg (COMPLETED) 50 mg, oral, Once, On Sat12/04/22 at 1140, For 1 dose 1149 (Given - Provid er: Junior Cartwright RN) Scheduled Medication Order 12/02/2022 12/03/2022 12/04/2022 orphenadrine (Norflex) injection 60 mg (COMPLETED) 60 mg, intramuscular, Once, On Sat12/04/22 at 1110, For 1 dose 1116 (Given - Provid er: DEVORAH Olsen) oxyCODONE-acetaminophen (Percocet) 5-325 mg per tablet 1 tablet (COMPLETED) 1 tablet, oral, Once, On Sat12/04/22 at 1110, For 1 dose, If ordered PRN for pain, nurse is permitted to administer this medication for higher pain scores based on patient preference? Yes 1116 (Given - Provid er: DEVORAH Olsen) predniSONE (Deltasone) tablet 50 mg (COMPLETED) 50 mg, oral, Once, On Sat12/04/22 at 1140, For 1 dose 1149 (Given - Provid er: Junior Cartwright RN) Scheduled Medication Order 03/02/2023 03/03/2023 03/04/2023 ibuprofen (ADVIL;MOTRIN) tablet 800 mg (COMPLETED) 800 mg, Oral, ONCE, 1 dose, On 03/04/23 at 1215 1216 (Given - Provid er: Uyen Shah RN) Scheduled Medication Order 03/08/2023 03/09/2023 03/10/2023 ketorolac (Toradol) injection 30 mg (COMPLETED) 30 mg, intramuscular, Once, On Sat03/10/23 at 0450, For 1 dose 0517 (Given - Provid er: Ciara Seaman RN) Scheduled Medication Order 04/23/2023 04/24/2023 04/25/2023 aspirin chewable tablet 324 mg (COMPLETED) 324 mg, Oral, ONCE, 1 dose, On Alicia 04/25/23 at 1145, Have patient chew 1143 (Given - Provid er: Fidencio Alberto RN) ketorolac (TORADOL) injection 30 mg (COMPLETED) 30 mg, IntraMUSCular, ONCE, 1 dose, On Alicia 04/25/23 at 1245, Do not administer for more than 5 days. 1250 (Given - Provid er: Pankaj Espinal RN) LORazepam (ATIVAN) injection 2 mg (COMPLETED) 2 mg, IntraVENous, ONCE, 1 dose, On Alicia 04/25/23 at 1145, Immediately prior to intravenous use, lorazepam Injection must be diluted with at least an equal volume of compatible solution (NS or D5W). 1148 (Given - Provid er: Fidencio Alberto RN) Scheduled Medication Order 05/04/2023 05/05/2023 05/06/2023 dexAMETHasone (DECADRON) injection 10 mg (COMPLETED) 10 mg, IntraMUSCular, ONCE, On 05/06/23 at 1645, For 1 dose 1701 (Given - Provid er: Anayeli Nguyen RN) ketorolac (TORADOL) injection 30 mg (COMPLETED) 30 mg, IntraMUSCular, ONCE, 1 dose, On 05/06/23 at 1645, Do not administer for more than 5 days. 1700 (Given - Provid er: Anayeli Nguyen RN) oxyCODONE-acetaminophen (PERCOCET) 5-325 MG per tablet 1 tablet (COMPLETED) 1 tablet, Oral, ONCE, 1 dose, On Sat05/06/23 at 1645, Maximum dose of acetaminophen is 4000 mg from all sources in 24 hours. 1659 (Given - Provid er: Anayeli Nguyen RN) Scheduled Medication Order 05/29/2023 05/30/2023 05/31/2023 ketorolac (TORADOL) injection 30 mg (COMPLETED) 30 mg, IntraMUSCular, ONCE, 1 dose, On Sat05/31/23 at 1015, Do not administer for more than 5 days. 1018 (Given - Provid er: Raul Nj RN) Scheduled Medication Order 07/07/2023 07/08/2023 07/09/2023 cyclobenzaprine (FLEXERIL) tablet 5 mg (COMPLETED) 5 mg, Oral, ONCE, 1 dose, On Sat07/09/23 at 0915 0912 (Given - Provid er: Diamante Davis RN) ketorolac (TORADOL) injection 30 mg (COMPLETED) 30 mg, IntraMUSCular, ONCE, 1 dose, On Sat07/09/23 at 0900, Do not administer for more than 5 days. 0904 (Given - Provid er: Diamante Davis RN) lidocaine 4 % external patch 1 patch 1 patch, TransDERmal, Administer over 12 Hours, ONCE, On Sat07/09/23 at 0900, For 1 dose, Apply patch to back. Patch may remain in place for up to 12 hours in any 24 hour period. 09 (Patch Applied - Provider: Diamante Davis RN)2104 (Due: Patch Removed - Provider: Diamante Davis RN) Scheduled Medication Order 08/04/2023 08/05/2023 08/06/2023 acetaminophen (TYLENOL) tablet (COMPLETED) 650 mg, Oral, ONCE, 1 dose, On Sat08/06/23 at 0659 0641 (Given - Provid er: Nuno Byrne RN) droperidol (INAPSINE) 2.5 MG/ML injection (COMPLETED) 2.5 mg, Intramuscular, ONCE, 1 dose, On Sat08/06/23 at 0659 0641 (Given - Provid er: Nuno Byrne RN) ketorolac (TORADOL) 15 MG/ML injection (COMPLETED) 15 mg, Intramuscular, ONCE, 1 dose, On Sat08/06/23 at 0659 0641 (Given - Provid er: Nuno Byrne RN) lidocaine (LIDODERM) 4 % patch 1 Patch, Transdermal, EVERY 24 HOURS, First dose on Sat08/06/23 at 0730, Until Discontinued 0641 (Patch Applied - Provider: Nuno Byrne RN)1841 (Due: Patch Removal - Provider: Nuno Byrne RN) Scheduled Medication Order 08/11/2023 08/12/2023 08/13/2023 diazePAM (Valium) tablet 10 mg (COMPLETED) 10 mg, oral, Once, On Sat08/13/23 at 1625, For 1 dose 1628 (Given - Provid er: Melida Wilkinson LPN) Scheduled Medication Order 08/31/2023 09/01/2023 09/02/2023 cyclobenzaprine (FLEXERIL) tablet 10 mg (COMPLETED) 10 mg, Oral, ONCE, 1 dose, On Sat09/02/23 at 1200 1156 (Given - Provid er: Agnieszka Roman RN) oxyCODONE-acetaminophen (PERCOCET) 5-325 MG per tablet 2 tablet (COMPLETED) 2 tablet, Oral, ONCE, 1 dose, On Sat09/02/23 at 1200, Maximum dose of acetaminophen is 4000 mg from all sources in 24 hours. 1156 (Given - Provid er: Agnieszka Roman RN) Scheduled Medication Order 09/04/2023 09/05/2023 09/06/2023 acetaminophen (TYLENOL) tablet (COMPLETED) 1,000 mg, Oral, ONCE, 1 dose, On Sat09/06/23 at 0608 0553 (Given - Provid er: Maddy Castro RN) ketorolac (TORADOL) 30 MG/ML injection (COMPLETED) 30 mg, Intramuscular, ONCE, 1 dose, On Sat09/06/23 at 0617 0553 (Given - Provid er: Maddy Castro RN) lidocaine (LIDODERM) 4 % patch 1 Patch, Transdermal, EVERY 24 HOURS, First dose on Sat09/06/23 at 0610, Until Discontinued 0553 (Patch Applied - Provider: Maddy Castro, RN)1753 (Due: Patch Removal - Provider: Maddy Castro, RN) Scheduled Medication Order 09/27/2023 09/28/2023 09/29/2023 dexAMETHasone (DECADRON) injection 10 mg (COMPLETED) 10 mg, IntraVENous, ONCE, On 09/29/23 at 1130, For 1 dose 1135 (Given - Provid er: Liseth Knutson RN) HYDROcodone-acetaminophen (NORCO) 5-325 MG per tablet 1 tablet (COMPLETED) 1 tablet, Oral, ONCE, 1 dose, On 09/29/23 at 1315, Maximum dose of acetaminophen is 4000 mg from all sources in 24 hours. 1321 (Given - Provid er: Bridgette Coon RN) metoclopramide (REGLAN) injection 10 mg (COMPLETED) 10 mg, IntraVENous, ONCE, 1 dose, On 09/29/23 at 1130, IV Push: Max 10 mg over 1-2 minutes. 1135 (Given - Provid er: Liseth Knutson RN) orphenadrine (NORFLEX) injection 60 mg (COMPLETED) 60 mg, IntraMUSCular, ONCE, 1 dose, On 09/29/23 at 1130 1135 (Given - Provid er: Liseth Knutson RN) prochlorperazine (COMPAZINE) injection 10 mg (COMPLETED) 10 mg, IntraVENous, ONCE, 1 dose, On 09/29/23 at 1315, If administering IV push, administer at a maximum rate of 5 mg/minute. Patients should remain lying down following administration and be reassessed for relief of nausea and presence of hypotension. Patients should be assisted the first time they get up after administration. 1317 (Given - Provid er: Bridgette Coon RN) Scheduled Medication Order 10/16/2023 10/17/2023 10/18/2023 HYDROmorphone HCl PF (DILAUDID) injection 1 mg (COMPLETED) 1 mg, IntraVENous, ONCE, 1 dose, On Sat10/18/23 at 1145, Give just prior to Mri If oral and IV narcotics ordered, use oral first and only use IV if oral is ineffective or cannot take oral. Do Not give oral and IV within 1 hour of each other unless specifically ordered., Give just prior to Mri 1121 (Given - Provid er: Sheree Isaac RN) ketorolac (TORADOL) injection 30 mg (COMPLETED) 30 mg, IntraVENous, ONCE, 1 dose, On Sat10/18/23 at 0945, Do not administer for more than 5 days. 0954 (Given - Provid er: Sheree Isaac RN) metoclopramide (REGLAN) injection 10 mg (COMPLETED) 10 mg, IntraVENous, ONCE, 1 dose, On Sat10/18/23 at 0945, IV Push: Max 10 mg over 1-2 minutes. 0954 (Given - Provid er: Sheree Isaac RN) morphine injection 4 mg (COMPLETED) 4 mg, IntraVENous, ONCE, 1 dose, On Sat10/18/23 at 0945, If oral and IV narcotics ordered, use oral first and only use IV if oral is ineffective or cannot take oral. Do Not give oral and IV within 1 hour of each other unless specifically ordered. 0953 (Given - Provid er: Sheree Isaac RN) sodium chloride 0.9 % bolus 1,000 mL (COMPLETED) 1,000 mL (15.7 mL/kg), IntraVENous, at 1,000 mL/hr, Administer over 1 Hours, ONCE, On Sat10/18/23 at 0945, For 1 dose, May be administered over 30 minutes if well tolerated. 0954 (New Bag - Prov ider: Sheree Isaac RN)1148 (Stopped - Provider: Sheree Isaac RN) PRN Medication Order 10/16/2023 10/17/2023 10/18/2023 dextrose 50 % IV solution 25 mL, IntraVENous, PRN, Starting on Sat10/18/23 at 1131, Until Discontinued, Low blood sugar 1224 (Given - Provid er: Sheree Isaac RN) gadobenate dimeglumine (MULTIHANCE) injection 15 mL (COMPLETED) 15 mL, IntraVENous, IMG ONCE PRN, 1 dose, Starting on Sat10/18/23 at 1207, Until Sat10/18/23 at 1207, Other 1207 (Given - Provid er: Leticia Bran) Scheduled Medication Order 10/25/2023 10/26/2023 10/27/2023 sulfamethoxazole-trimethoprim 800-160 MG (BACTRIM DS) tablet 1 Tablet, Oral, ONCE, 1 dose, On 10/27/23 at 0239 0239 (Due) Scheduled Medication Order 12/01/2023 12/02/2023 12/03/2023 ketorolac (TORADOL) injection 30 mg (COMPLETED) 30 mg, IntraMUSCular, ONCE, 1 dose, On Sat12/03/23 at 0430, Do not administer for more than 5 days. 0438 (Given - Provid er: Annie Núñez RN) orphenadrine (NORFLEX) injection 30 mg (COMPLETED) 30 mg, IntraMUSCular, ONCE, 1 dose, On Sat12/03/23 at 0430 0438 (Given - Provid er: Annie Núñez RN) Scheduled Medication Order 12/27/2023 12/28/2023 12/29/2023 acetaminophen (TYLENOL) tablet 325 mg (COMPLETED)(Linked Group 1) 325 mg, Oral, ONCE, 1 dose, On 12/29/23 at 0800, Maximum dose of acetaminophen is 4000 mg from all sources in 24 hours. 0807 (Given - Provid er: Lea Trotter RN) ketorolac (TORADOL) injection 30 mg (COMPLETED) 30 mg, IntraVENous, ONCE, 1 dose, On 12/29/23 at 0800, Do not administer for more than 5 days. 08 (Given - Provid er: Lea Trotter RN) ondansetron (ZOFRAN) injection 4 mg (COMPLETED) 4 mg, IntraVENous, ONCE, 1 dose, On 12/29/23 at 0800 0806 (Given - Provid er: Lea Trotter RN) oxyCODONE (ROXICODONE) immediate release tablet 10 mg (COMPLETED)(Linked Group 1) 10 mg, Oral, ONCE, 1 dose, On 12/29/23 at 0800 0808 (Given - Provid er: Lea Trotter RN) sodium chloride 0.9 % bolus 1,000 mL (COMPLETED) 1,000 mL (15.7 mL/kg), IntraVENous, at 1,000 mL/hr, Administer over 1 Hours, ONCE, On 12/29/23 at 0800, For 1 dose 0806 (New Bag - Prov ider: Lea Trotter RN)0910 (Stopped - Provider: Lea Trotter RN) Linked Groups Order Group 1: oxyCODONE (ROXICODONE) immediate release tablet 10 mg (COMPLETED)Jump to med 10 mg, Oral, ONCE, 1 dose, On 12/29/23 at 0800 And acetaminophen (TYLENOL) tablet 325 mg (COMPLETED)Jump to med 325 mg, Oral, ONCE, 1 dose, On 12/29/23 at 0800, Maximum dose of acetaminophen is 4000 mg from all sources in 24 hours. Scheduled Medication Order 01/07/2024 01/08/2024 01/09/2024 ketorolac (TORADOL) injection 15 mg (COMPLETED) 15 mg, IntraMUSCular, ONCE, 1 dose, On Alicia 01/09/24 at 0500, Do not administer for more than 5 days. 0502 (Given - Provid er: Annie Núñez RN) Scheduled Medication Order 01/11/2024 01/12/2024 01/13/2024 ketorolac (TORADOL) injection 30 mg (COMPLETED) 30 mg, IntraMUSCular, ONCE, 1 dose, On 01/13/24 at 0845, Do not administer for more than 5 days. 0904 (Given - Provid er: Kathia Wong RN) Scheduled Medication Order 01/16/2024 01/17/2024 01/18/2024 ketorolac (TORADOL) injection 30 mg (COMPLETED) 30 mg, IntraMUSCular, ONCE, 1 dose, On 01/18/24 at 0815, Do not administer for more than 5 days. 0823 (Given - Provid er: Norma Ibarra RN) Scheduled Medication Order 01/19/2024 01/20/2024 01/21/2024 ketorolac (TORADOL) injection 15 mg (COMPLETED) 15 mg, IntraMUSCular, ONCE, 1 dose, On 01/21/24 at 1815, Do not administer for more than 5 days. 1830 (Given - Provid er: Masoud Hammer RN) Scheduled Medication Order 02/04/2024 02/05/2024 02/06/2024 ketorolac (TORADOL) injection 30 mg (COMPLETED) 30 mg, IntraMUSCular, ONCE, 1 dose, On Alicia 02/06/24 at 0300, Do not administer for more than 5 days. 0256 (Given - Provid er: Masoud Hammer RN) triamcinolone acetonide (KENALOG-40) injection 40 mg (COMPLETED) 40 mg, IntraMUSCular, ONCE, 1 dose, On Alicia 02/06/24 at 0300 0256 (Given - Provid er: Masoud Hammer RN) Scheduled Medication Order 02/08/2024 02/09/2024 02/10/2024 oxyCODONE (Roxicodone) immediate release tablet 5 mg (COMPLETED) 5 mg, oral, Once, On 02/10/24 at 0440, For 1 dose, If ordered PRN for pain, nurse is permitted to administer this medication for higher pain scores based on patient preference? Yes, Indications: pain 0508 (Given - Provid er: Joe Salazar LPN) Scheduled Medication Order 02/09/2024 02/10/2024 02/11/2024 ketorolac (TORADOL) injection 30 mg (COMPLETED) 30 mg, IntraMUSCular, ONCE, 1 dose, On Tu02/11/24 at 0400, Do not administer for more than 5 days. 0352 (Given - Provid er: Brissa Hunt LPN) Scheduled Medication Order 09/04/2023 09/05/2023 09/06/2023 lidocaine 4 % patch 1 patch 1 patch, transdermal, Administer over 12 Hours, Once, On Sat09/06/23 at 0725, For 1 dose, Apply to affected area 0742 (Medication Surinder lied - Provider: Bridgette Butt RN - Comment: BACK)1942 (Due: Medication Removed - Provider: Bridgette Butt RN) oxyCODONE-acetaminophen (Percocet) 5-325 mg per tablet 1 tablet (COMPLETED) 1 tablet, oral, Once, On Sat09/06/23 at 0725, For 1 dose, If ordered PRN for pain, nurse is permitted to administer this medication for higher pain scores based on patient preference? Yes 0742 (Given - Provid er: Bridgette Butt RN) Scheduled Medication Order 09/13/2023 09/14/2023 09/15/2023 ibuprofen tablet 400 mg (COMPLETED) 400 mg, oral, Once, On Sat09/15/23 at 0950, For 1 dose, May administer with food to reduce GI upset., If ordered PRN for pain, nurse is permitted to administer this medication for higher pain scores based on patient preference? Yes 1025 (Given - Provid er: Jayna Amaya RN) tiZANidine (Zanaflex) tablet 4 mg (COMPLETED) 4 mg, oral, Once, On 09/15/23 at 0950, For 1 dose 1024 (Given - Provid er: Jayna Amaya RN) Scheduled Medication Order 02/18/2024 02/19/2024 02/20/2024 ketorolac (TORADOL) injection 30 mg (COMPLETED) 30 mg, IntraMUSCular, ONCE, 1 dose, On Alicia 02/20/24 at 0515, Do not administer for more than 5 days. 0541 (Given - Provid er: Melida Ahumada RN) Scheduled Medication Order 02/26/2024 02/27/2024 02/28/2024 amoxicillin-clavulanate (AUGMENTIN) 875-125 MG per tablet 1 tablet (COMPLETED) 1 tablet, Oral, ONCE, 1 dose, On Sat02/28/24 at 0430, Antimicrobial Indications: Skin and Soft Tissue Infection 0428 (Given - Provid er: Madelin Kearney RN) ketorolac (TORADOL) injection 30 mg (COMPLETED) 30 mg, IntraMUSCular, ONCE, 1 dose, On Sat02/28/24 at 0430, Do not administer for more than 5 days. 0428 (Given - Provid er: Madelin Kearney RN) Scheduled Medication Order 03/07/2024 03/08/2024 03/09/2024 DULoxetine (CYMBALTA) extended release capsule 60 mg 60 mg, Oral, 2 TIMES DAILY, First dose (after last reorder) on 03/08/24 at 1015, Until Discontinued, Do not crush or break. May add contents of capsule to apple juice or apple sauce, but not chocolate. 1016 (Given - Provider: Bridget Miles, NIK)2129 (Given - Provider: Nadia Munoz RN) 0840 (Given - Provider: Isabel Jenkins RN)2100 (Due) enoxaparin (LOVENOX) injection 40 mg 40 mg, SubCUTAneous, DAILY, First dose on 03/08/24 at 0900, Until Discontinued, Indication of Use: Prophylaxis-DVT/PE, Administer by deep subCUTAneous injection with pt lying down. Alternate injection sites on abdominal wall. Do not rub site after injection. Check with provider prior to any invasive procedure. 0830 (Given - Provider: Bridget Miles RN) 0840 (Given - Provider: Isabel Jenkins RN) gabapentin (NEURONTIN) capsule 600 mg 600 mg, Oral, 3 TIMES DAILY, First dose on 03/08/24 at 0900, Until Discontinued 1016 (Given - Provider: Bridget Miles RN)1508 (Given - Provider: Asael Matias RN)2129 (Given - Provider: Nadia Munoz, NIK) 0839 (Given - Provider: Isabel Jenkins RN)1452 (Given - Provider: Margaux Neal RN)2100 (Due) ketorolac (TORADOL) injection 15 mg (COMPLETED) 15 mg, IntraVENous, ONCE, 1 dose, On 03/08/24 at 0100, Do not administer for more than 5 days. 0116 (Given - Provider: Santos Palacios, NIK) lamoTRIgine (LAMICTAL) tablet 150 mg 150 mg, Oral, DAILY, First dose (after last reorder) on 03/08/24 at 1015, Until Discontinued 1016 (Given - Provider: Bridget Miles RN) 0840 (Given - Provider: Isabel Jenkins RN) LORazepam (ATIVAN) injection 0.5 mg (COMPLETED) 0.5 mg, IntraVENous, ONCE, 1 dose, On 03/08/24 at 1115, Immediately prior to intravenous use, lorazepam Injection must be diluted with at least an equal volume of compatible solution (NS or D5W). 1111 (Given - Provider: Bridget Miles RN - Comment: pt in MRI, sever pain, unable to tolerate lying flat) meclizine (ANTIVERT) tablet 25 mg (COMPLETED) 25 mg, Oral, ONCE, 1 dose, On 03/08/24 at 0100 0115 (Given - Provider: Santos Palacios RN) morphine (PF) injection 2 mg (COMPLETED) 2 mg, IntraVENous, NOW, 1 dose, On 03/08/24 at 1115, If oral and IV narcotics ordered, use oral first and only use IV if oral is ineffective or cannot take oral. Do Not give oral and IV within 1 hour of each other unless specifically ordered. 1111 (Given - Provider: Bridget Miles RN - Comment: pt in MRI, sever pain, unable to tolerate lying flat) oxyCODONE-acetaminophen (PERCOCET) 5-325 MG per tablet 1 tablet (COMPLETED) 1 tablet, Oral, ONCE, 1 dose, On 03/08/24 at 0100, Maximum dose of acetaminophen is 4000 mg from all sources in 24 hours. 0115 (Given - Provider: Santos Palacios RN) sodium chloride flush 0.9 % injection 5-40 mL 5-40 mL, IntraVENous, EVERY 12 HOURS SCHEDULED (2 times per day), First dose on 03/08/24 at 0900, Until Discontinued, For Line Patency: Peripheral IV = 5 mL; Midline or Central Line = 10 mL/lumen. If following IV push medication, administer flush at same rate as the IV push. Flush volume is determined by type of infusion therapy being given. For non-viscous solutions use: Peripheral IV = 5 mL Midline or Central Line = 10 mL/lumen For viscous solutions (i.e. blood components, parenteral nutrition, contrast media, or after obtaining blood sample) use: Peripheral IV = 10 mL Midline or Central Line = 20 mL/lumen 0831 (Given - Provider: Bridget Miles RN)2130 (Given - Provider: Nadia Munoz RN) 0840 (Given - Provider: Isabel Jenkins RN)2100 (Due) PRN Medication Order 03/07/2024 03/08/2024 03/09/2024 0.9 % sodium chloride infusion IntraVENous, at 5-250 mL/hr, PRN, if patient receiving piggyback infusions and maintenance fluids are not ordered, Starting on 03/08/24 at 0819, For piggyback infusion, administer at same rate as piggyback for a total of 25 mL. Enter 25 mL into dose field and piggyback rate into rate field of order. If piggyback is infusing at a rate less than 100 mL/hr, enter 25 mL into dose field and 100 mL/hr into rate field of order. acetaminophen (TYLENOL) suppository 650 mg(Linked Group 1) 650 mg, Rectal, EVERY 6 HOURS PRN, Starting on 03/08/24 at 0819, Until Discontinued, Pain Mild (1-3), Fever, For temp greater than 100.4 F (38 C), Administer if oral route cannot be used. acetaminophen (TYLENOL) tablet 650 mg(Linked Group 1) 650 mg, Oral, EVERY 6 HOURS PRN, Starting on 03/08/24 at 0819, Until Discontinued, Pain Mild (1-3), Fever, For temp greater than 100.4 F (38 C), Maximum dose of acetaminophen is 4000 mg from all sources in 24 hours. albuterol (PROVENTIL) (2.5 MG/3ML) 0.083% nebulizer solution 2.5 mg 2.5 mg, Nebulization, 4 TIMES DAILY PRN, Starting on 03/08/24 at 0823, Until Discontinued, Wheezing, Initiate RT Bronchodilator Protocol: No gadoteridol (PROHANCE) injection 13 mL (COMPLETED) 13 mL, IntraVENous, IMG ONCE PRN, 1 dose, Starting on 03/08/24 at 1156, Until 03/08/24 at 1202, Other 1202 (Given - Provider: Mary Ellen Andre) iopamidol (ISOVUE-370) 76 % injection 75 mL (COMPLETED) 75 mL, IntraVENous, IMG ONCE PRN, 1 dose, Starting on 03/07/24 at 2312, Until 03/07/24 at 2329, Other 2329 (Given - Provider: Aishwarya Aparicio) magnesium sulfate 2000 mg in 50 mL IVPB premix 2,000 mg, IntraVENous, at 25 mL/hr, Administer over 2 Hours, PRN, Other, Magnesium Replacement, Starting on 03/08/24 at 0819, Mag Lab Replacement Action 1.4-1.6 mg/dL 2,000 mg Total Dose Given as 1,000 mg IVPB x 2 doses or 2,000 mg IVPB x 1 dose 1.0-1.3 mg/dL 4,000 mg Total Dose Given as 1,000 mg IVPB x 4 doses or 2,000 mg IVPB x 2 doses Less than 1.0 mg/dL CALL PHYSICIAN and give 4,000 mg Total Dose Given as 1,000 mg IVPB x 4 doses or 2,000 mg IVPB x 2 doses Infuse at 1,000 mg/hr Repeat Mag level 1 hour after final administration Protocol not for use in Patients with CrCl less than 30ml/min ondansetron (ZOFRAN) injection 4 mg 4 mg, IntraVENous, EVERY 6 HOURS PRN, Starting on 03/08/24 at 0058, Until Discontinued, Nausea, Vomiting 0116 (Given - Provider: Santos Palacios RN) oxyCODONE-acetaminophen (PERCOCET) 10-325 MG per tablet 1 tablet(Linked Group 2) 1 tablet, Oral, EVERY 6 HOURS PRN, Starting on 03/08/24 at 0744, Until Discontinued, Pain Severe (7-10), Maximum dose of acetaminophen is 4000 mg from all sources in 24 hours. 0829 (Given - Provider: Bridget Miles RN)1509 (Given - Provider: Asael Matias, NIK)2128 (Given - Provider: Nadia Munoz RN) 043 (Given - Provider: Nadia Munoz RN)1052 (Given - Provider: Margaux Neal, NIK)1628 (Given - Provider: Margaux Neal, NIK) oxyCODONE-acetaminophen (PERCOCET) 5-325 MG per tablet 1 tablet(Linked Group 2) 1 tablet, Oral, EVERY 6 HOURS PRN, Starting on 03/08/24 at 0744, Until Discontinued, Pain Moderate (4-6), Maximum dose of acetaminophen is 4000 mg from all sources in 24 hours. 0829 (See Alternative - Provider: Bridget Miles RN)1509 (See Alternative - Provider: Asael Matias RN)2128 (See Alternative - Provider: Nadia Munoz RN) 043 (See Alternative - Provider: Nadia Munoz RN)1052 (See Alternative - Provider: Margaux Neal, NIK)1628 (See Alternative - Provider: Margaux Neal, NKI) polyethylene glycol (GLYCOLAX) packet 17 g 17 g, Oral, DAILY PRN, Starting on 03/08/24 at 0819, Until Discontinued, Constipation, First line therapy for constipation potassium bicarb-citric acid (EFFER-K) effervescent tablet 40 mEq(Linked Group 3) 40 mEq, Oral, PRN, Starting on 03/08/24 at 0819, Until Discontinued, Per Potassium Replacement Protocol, Administer as alternative if patient unable to tolerate oral tablet. K Lab Replacement Action 3.1 to 3.5 40 mEq ORAL x 1 Under 3.1 Refer to IV replacement protocol Recheck K level in AM. Protocol not for use in patients with CrCl less than 30 mL/min. Do not chew or crush. Dissolve flavored tablets completely in 3 to 4 ounces of cold water; unflavored tablets may be dissolved in 3 to 4 ounces of cold juice. Patient to sip slowly over a 5 to 10 minute period. May further dilute if GI adverse effects occur. potassium chloride (KLOR-CON M) extended release tablet 40 mEq(Linked Group 3) 40 mEq, Oral, PRN, Starting on 03/08/24 at 0819, Until Discontinued, Potassium Replacement, May give alternative linked oral order (ordered as effervescent, packet, or liquid solution) if patient unable to tolerate tablet. K Lab Replacement Action 3.1 to 3.5 40 mEq ORAL x 1 Under 3.1 Refer to IV replacement protocol Recheck K level in AM. Protocol not for use in patients with CrCl less than 30 mL/min. Do not crush, chew, or suck on tablet. Tablet may also be broken in half and each half swallowed separately. potassium chloride 10 mEq/100 mL IVPB (Peripheral Line)(Linked Group 3) 10 mEq, IntraVENous, PRN, Starting on Sat03/08/24 at 0819, Until Discontinued, at 100 mL/hr, Potassium Replacement, K Lab Replacement Action 2.7 to 3.0 10 mEq IVPB x 6 doses (60 mEq Total) Under 2.7 CALL PROVIDER and administer 10 mEq IVPB x 6 doses (60 mEq Total) Infuse at 10 mEq/hr. Repeat Potassium lab 1 hour after final administration. Protocol not for use in patients with CrCl less than 30 mL/min. sodium chloride flush 0.9 % injection 5-40 mL 5-40 mL, IntraVENous, PRN, Starting on Sat03/08/24 at 0819, Until Discontinued, Line Care, After every IV line use, For Line Patency: Peripheral IV = 5 mL; Midline or Central Line = 10 mL/lumen. If following IV push medication, administer flush at same rate as the IV push. Flush volume is determined by type of infusion therapy being given. For non-viscous solutions use: Peripheral IV = 5 mL Midline or Central Line = 10 mL/lumen For viscous solutions (i.e. blood components, parenteral nutrition, contrast media, or after obtaining blood sample) use: Peripheral IV = 10 mL Midline or Central Line = 20 mL/lumen Linked Groups Order Group 1: acetaminophen (TYLENOL) tablet 650 mgJump to med 650 mg, Oral, EVERY 6 HOURS PRN, Starting on 03/08/24 at 0819, Until Discontinued, Pain Mild (1-3), Fever, For temp greater than 100.4 F (38 C), Maximum dose of acetaminophen is 4000 mg from all sources in 24 hours. Or acetaminophen (TYLENOL) suppository 650 mgJump to med 650 mg, Rectal, EVERY 6 HOURS PRN, Starting on 03/08/24 at 0819, Until Discontinued, Pain Mild (1-3), Fever, For temp greater than 100.4 F (38 C), Administer if oral route cannot be used. Group 2: oxyCODONE-acetaminophen (PERCOCET) 5-325 MG per tablet 1 tabletJump to med 1 tablet, Oral, EVERY 6 HOURS PRN, Starting on 03/08/24 at 0744, Until Discontinued, Pain Moderate (4-6), Maximum dose of acetaminophen is 4000 mg from all sources in 24 hours. Or oxyCODONE-acetaminophen (PERCOCET) 10-325 MG per tablet 1 tabletJump to med 1 tablet, Oral, EVERY 6 HOURS PRN, Starting on 03/08/24 at 0744, Until Discontinued, Pain Severe (7-10), Maximum dose of acetaminophen is 4000 mg from all sources in 24 hours. Group 3: potassium chloride (KLOR-CON M) extended release tablet 40 mEqJump to med 40 mEq, Oral, PRN, Starting on 03/08/24 at 0819, Until Discontinued, Potassium Replacement, May give alternative linked oral order (ordered as effervescent, packet, or liquid solution) if patient unable to tolerate tablet. K Lab Replacement Action 3.1 to 3.5 40 mEq ORAL x 1 Under 3.1 Refer to IV replacement protocol Recheck K level in AM. Protocol not for use in patients with CrCl less than 30 mL/min. Do not crush, chew, or suck on tablet. Tablet may also be broken in half and each half swallowed separately. Or potassium bicarb-citric acid (EFFER-K) effervescent tablet 40 mEqJump to med 40 mEq, Oral, PRN, Starting on Sat03/08/24 at 0819, Until Discontinued, Per Potassium Replacement Protocol, Administer as alternative if patient unable to tolerate oral tablet. K Lab Replacement Action 3.1 to 3.5 40 mEq ORAL x 1 Under 3.1 Refer to IV replacement protocol Recheck K level in AM. Protocol not for use in patients with CrCl less than 30 mL/min. Do not chew or crush. Dissolve flavored tablets completely in 3 to 4 ounces of cold water; unflavored tablets may be dissolved in 3 to 4 ounces of cold juice. Patient to sip slowly over a 5 to 10 minute period. May further dilute if GI adverse effects occur. Or potassium chloride 10 mEq/100 mL IVPB (Peripheral Line)Jump to med 10 mEq, IntraVENous, PRN, Starting on Sat03/08/24 at 0819, Until Discontinued, at 100 mL/hr, Potassium Replacement, K Lab Replacement Action 2.7 to 3.0 10 mEq IVPB x 6 doses (60 mEq Total) Under 2.7 CALL PROVIDER and administer 10 mEq IVPB x 6 doses (60 mEq Total) Infuse at 10 mEq/hr. Repeat Potassium lab 1 hour after final administration. Protocol not for use in patients with CrCl less than 30 mL/min. Scheduled Medication Order 03/10/2024 03/11/2024 03/12/2024 ketorolac (TORADOL) injection 30 mg (COMPLETED) 30 mg, IntraMUSCular, ONCE, 1 dose, On Alicia 03/12/24 at 1915, Do not administer for more than 5 days. 1958 (Given - Provid er: Jessica Burgess RN) oxyCODONE-acetaminophen (PERCOCET) 5-325 MG per tablet 1 tablet (COMPLETED) 1 tablet, Oral, ONCE, 1 dose, On Alicia 03/12/24 at 1915, Maximum dose of acetaminophen is 4000 mg from all sources in 24 hours. 1999 (Given - Provid er: Jessica Burgess RN) Scheduled Medication Order 03/11/2024 03/12/2024 03/13/2024 oxyCODONE-acetaminophen (PERCOCET) 5-325 MG per tablet 1 tablet (COMPLETED) 1 tablet, Oral, ONCE, 1 dose, On Sat03/13/24 at 1645, Maximum dose of acetaminophen is 4000 mg from all sources in 24 hours. 1642 (Given - Provid er: Hima Flannery RN) Scheduled Medication Order 03/15/2024 03/16/2024 03/17/2024 dexAMETHasone (DECADRON) Oral 6 mg (COMPLETED) 6 mg, Oral, ONCE, On Sat03/17/24 at 0330, For 1 dose 0344 (Given - Provid er: Liseth Kevin RN) ketorolac (TORADOL) injection 15 mg (COMPLETED) 15 mg, IntraMUSCular, ONCE, 1 dose, On Sat03/17/24 at 0330, Do not administer for more than 5 days. 034 (Given - Provid er: Liseth Kevin RN) morphine sulfate (PF) injection 6 mg (COMPLETED) 6 mg, IntraMUSCular, ONCE, 1 dose, On Sat03/17/24 at 0330, If oral and IV narcotics ordered, use oral first and only use IV if oral is ineffective or cannot take oral. Do Not give oral and IV within 1 hour of each other unless specifically ordered. 034 (Given - Provid er: Liseth Kevin RN) Scheduled Medication Order 03/16/2024 03/17/2024 03/18/2024 dexAMETHasone (DECADRON) injection 10 mg (COMPLETED) 10 mg, IntraMUSCular, ONCE, On Sat03/18/24 at 0515, For 1 dose 05 (Given - Provid er: Elizabeth Caldera RN) oxyCODONE-acetaminophen (PERCOCET) 5-325 MG per tablet 2 tablet (COMPLETED) 2 tablet, Oral, ONCE, 1 dose, On Sat03/18/24 at 0515, Maximum dose of acetaminophen is 4000 mg from all sources in 24 hours. 0529 (Given - Provid er: Elizabeth Caldera RN) Scheduled Medication Order 03/27/2024 03/28/2024 03/29/2024 orphenadrine (NORFLEX) injection 60 mg (COMPLETED) 60 mg, IntraMUSCular, ONCE, 1 dose, On Sat03/29/24 at 0830 0836 (Given - Provid er: Yesi Dumont RN) oxyCODONE-acetaminophen (PERCOCET) 10-325 MG per tablet 1 tablet (COMPLETED) 1 tablet, Oral, ONCE, 1 dose, On Sat03/29/24 at 0830, Maximum dose of acetaminophen is 4000 mg from all sources in 24 hours. 0836 (Given - Provid er: Yesi Dumont RN) Scheduled Medication Order 04/05/2024 04/06/2024 04/07/2024 ketorolac (TORADOL) injection 30 mg (COMPLETED) 30 mg, IntraMUSCular, ONCE, 1 dose, On Sat04/07/24 at 0500, Do not administer for more than 5 days. 0455 (Given - Provid er: Madelin Kearney RN) triamcinolone acetonide (KENALOG-40) injection 40 mg (COMPLETED) 40 mg, IntraMUSCular, ONCE, 1 dose, On Sat04/07/24 at 0500 0455 (Given - Provid er: Madelin Kearnye RN) Scheduled Medication Order 04/08/2024 04/09/2024 04/10/2024 dexAMETHasone (DECADRON) injection 10 mg (COMPLETED) 10 mg, IntraVENous, ONCE, On Sat04/10/24 at 0245, For 1 dose 0248 (Given - Provid er: Lance Penn RN) ketorolac (TORADOL) injection 30 mg (COMPLETED) 30 mg, IntraVENous, ONCE, 1 dose, On Sat04/10/24 at 0245, Do not administer for more than 5 days. 0250 (Given - Provid er: Lance Penn RN) prochlorperazine (COMPAZINE) injection 10 mg (COMPLETED) 10 mg, IntraVENous, ONCE, 1 dose, On Sat04/10/24 at 0245, If administering IV push, administer at a maximum rate of 5 mg/minute. Patients should remain lying down following administration and be reassessed for relief of nausea and presence of hypotension. Patients should be assisted the first time they get up after administration. 0252 (Given - Provid er: Lance Penn RN) sodium chloride 0.9 % bolus 1,000 mL (COMPLETED) 1,000 mL (15.7 mL/kg), IntraVENous, at 4,000 mL/hr, Administer over 0.25 Hours, ONCE, On Sat04/10/24 at 0245, For 1 dose 0246 (New Bag - Prov ider: Lance Penn RN)0310 (Stopped - Provider: Lance Penn RN) Scheduled Medication Order 04/18/2024 04/19/2024 04/20/2024 ketorolac (TORADOL) injection 60 mg (COMPLETED) 60 mg, IntraMUSCular, ONCE, 1 dose, On Sat04/20/24 at 1545, Do not administer for more than 5 days. 1554 (Given - Provid er: Su Mae RN) lidocaine 4 % external patch 1 patch 1 patch, TransDERmal, Administer over 12 Hours, ONCE, On Sat04/20/24 at 1545, For 1 dose, Apply patch to shoulder l The product development consultant's recommendations for the number of patches that can be applied within a 24-hour period varies from 1 to 4 times daily and the duration of application varies from 8 to 24 hours; refer to the product development consultant's labeling for product-specific recommendations. 1555 (Patch Applied - Provider: Su Mae RN) ondansetron (ZOFRAN-ODT) disintegrating tablet 4 mg (COMPLETED) 4 mg, Oral, ONCE, 1 dose, On 04/20/24 at 1545 1554 (Given - Provid er: Su Mae RN) orphenadrine (NORFLEX) injection 60 mg (COMPLETED) 60 mg, IntraMUSCular, ONCE, 1 dose, On 04/20/24 at 1545 1555 (Given - Provid er: Su Mae RN) Scheduled Medication Order 04/22/2024 04/23/2024 04/24/2024 ketorolac (TORADOL) injection 30 mg (COMPLETED) 30 mg, IntraMUSCular, ONCE, 1 dose, On Sat04/24/24 at 0500, Do not administer for more than 5 days. 0456 (Given - Provid er: Olga Lester RN) Scheduled Medication Order 2024 04/29/2024 04/30/2024 ketorolac (Toradol) injection 30 mg (COMPLETED) 30 mg, intramuscular, Once, On Alicia 04/30/24 at 0440, For 1 dose 0450 (Given - Provid er: Jessenia Parkinson RN) Scheduled Medication Order 04/30/2024 05/01/2024 05/02/2024 ketorolac (TORADOL) injection 15 mg 15 mg, IntraVENous, ONCE, 1 dose, On 05/02/24 at 0645, Do not administer for more than 5 days. 0645 (Due) ondansetron (ZOFRAN) injection 4 mg (COMPLETED) 4 mg, IntraVENous, ONCE, 1 dose, On 05/02/24 at 0530 0544 (Given - Provid er: Emeka Vasquez RN) oxyCODONE-acetaminophen (PERCOCET) 10-325 MG per tablet 1 tablet (COMPLETED) 1 tablet, Oral, Once, 1 dose, On 05/02/24 at 0530, Maximum dose of acetaminophen is 4000 mg from all sources in 24 hours. 0545 (Given - Provid er: Emeka Vasquez RN) sodium chloride 0.9 % bolus 1,000 mL (COMPLETED) 1,000 mL (15.2 mL/kg), IntraVENous, at 983.6 mL/hr, Administer over 61 Minutes, ONCE, On 05/02/24 at 0530, For 1 dose 0541 (New Bag - Prov ider: Emeka Vasquez RN)0633 (Stopped - Provider: Emeka Vasquez RN) Scheduled Medication Order 05/13/2024 05/14/2024 05/15/2024 HYDROcodone-acetaminophen (NORCO) 5-325 MG per tablet 1 tablet (COMPLETED) 1 tablet, Oral, Once, 1 dose, On Sat05/15/24 at 1000, Maximum dose of acetaminophen is 4000 mg from all sources in 24 hours. 1034 (Given - Provid er: Papa Delgado RN) ketorolac (TORADOL) injection 30 mg (COMPLETED) 30 mg, IntraMUSCular, ONCE, 1 dose, On Sat05/15/24 at 1115, Do not administer for more than 5 days. 1112 (Given - Provid er: Demetrice Taylor RN) Scheduled Medication Order 05/15/2024 05/16/2024 05/17/2024 HYDROmorphone (Dilaudid) injection 0.5 mg (COMPLETED) 0.5 mg, intravenous, Once, On 05/17/24 at 0355, For 1 dose 0422 (Given - Provid er: Glenda Thomas RN) iohexol (OMNIPaque) 350 mg iodine/mL solution 100 mL (COMPLETED) 100 mL, intravenous, Once in imaging, Starting on 05/17/24 at 0308, For 1 dose 0309 (Given - Provid er: Linda Oliva) ketorolac (Toradol) injection 15 mg (COMPLETED) 15 mg, intravenous, Once, On 05/17/24 at 0620, For 1 dose 0637 (Given - Provid er: Glenda Thomas RN) orphenadrine (Norflex) injection 60 mg 60 mg, intravenous, Once, On 05/17/24 at 0620, For 1 dose 0640 (Not Given - Pr ovider: Glenda Thomas RN - Reason: Patient/family refused) Scheduled Medication Order 05/18/2024 05/19/2024 05/20/2024 HYDROcodone-acetaminophen (NORCO) 5-325 MG per tablet 1 tablet (COMPLETED) 1 tablet, Oral, Once, 1 dose, On Sat05/20/24 at 1430, Maximum dose of acetaminophen is 4000 mg from all sources in 24 hours. 1433 (Given - Provid er: Alma Delia Redd RN) Scheduled Medication Order 05/20/2024 05/21/2024 05/22/2024 ketorolac (TORADOL) injection 60 mg (COMPLETED) 60 mg, IntraMUSCular, ONCE, 1 dose, On Sat05/22/24 at 1400, Do not administer for more than 5 days. 1411 (Given - Provid er: Fidelina Hein RN) LORazepam (ATIVAN) tablet 1 mg (COMPLETED) 1 mg, Oral, ONCE, 1 dose, On Sat05/22/24 at 1245 1240 (Given - Provid er: Bridget Miles RN) Scheduled Medication Order 05/23/2024 05/24/2024 05/25/2024 acetaminophen (TYLENOL) tablet 650 mg (COMPLETED) 650 mg, Oral, ONCE, 1 dose, On Sat05/25/24 at 1130, Maximum dose of acetaminophen is 4000 mg from all sources in 24 hours. 1133 (Given - Provid er: Mary Ellen Henderson RN) ketorolac (TORADOL) injection 15 mg (COMPLETED) 15 mg, IntraVENous, ONCE, 1 dose, On Sat05/25/24 at 1030, Do not administer for more than 5 days. 1049 (Given - Provid er: Melida Paige RN) Scheduled Medication Order 05/23/2024 05/24/2024 05/25/2024 HYDROcodone-acetaminophen (NORCO) 5-325 MG per tablet 1 tablet (COMPLETED) 1 tablet, Oral, Once, 1 dose, On Sat05/25/24 at 1345, Maximum dose of acetaminophen is 4000 mg from all sources in 24 hours. 1346 (Given - Provid er: Lea Trotter RN) ketorolac (TORADOL) injection 15 mg (COMPLETED) 15 mg, IntraMUSCular, ONCE, 1 dose, On Sat05/25/24 at 1345, Do not administer for more than 5 days. 1346 (Given - Provid er: Lea Trotter RN) Scheduled Medication Order 06/01/2024 06/02/2024 06/03/2024 acetaminophen (TYLENOL) tablet 650 mg (COMPLETED) 650 mg, Oral, Once, 1 dose, On Sat06/03/24 at 1200 1220 (Given - Provid er: Nina Heredia RN) dexAMETHasone (DECADRON) injection 10 mg (COMPLETED) 10 mg, IntraVENous, ONCE, On Sat06/03/24 at 1200, For 1 dose 1222 (Given - Provid er: Nina Heredia RN) ibuprofen (ADVIL;MOTRIN) tablet 600 mg (COMPLETED) 600 mg, Oral, ONCE, 1 dose, On Sat06/03/24 at 1500 1500 (Given - Provid er: Mary Srinivasan RN) ketorolac (TORADOL) injection 15 mg (COMPLETED) 15 mg, IntraVENous, ONCE, 1 dose, On Sat06/03/24 at 1200, Do not administer for more than 5 days. 1222 (Given - Provid er: Nina Heredia RN) potassium bicarb-citric acid (EFFER-K) effervescent tablet 40 mEq (COMPLETED) 40 mEq, Oral, ONCE, 1 dose, On Sat06/03/24 at 1300, Do not chew or crush. Dissolve flavored tablets completely in 3 to 4 ounces of cold water; unflavored tablets may be dissolved in 3 to 4 ounces of cold juice. Patient to sip slowly over a 5 to 10 minute period. May further dilute if GI adverse effects occur. 1406 (Given - Provid er: Nina Heredia RN) PRN Medication Order 06/01/2024 06/02/2024 06/03/2024 iopamidol (ISOVUE-370) 76 % injection 75 mL (COMPLETED) 75 mL, IntraVENous, IMG ONCE PRN, 1 dose, Starting on Sat06/03/24 at 1330, Until Sat06/03/24 at 1330, Other 1330 (Given - Provid er: Emily Deleon) Scheduled Medication Order 06/03/2024 06/04/2024 06/05/2024 ketorolac (TORADOL) injection 15 mg (COMPLETED) 15 mg, IntraVENous, ONCE, 1 dose, On Sat06/05/24 at 1700 1713 (Given - Provid er: Lisa Gallego RN) sodium chloride 0.9 % bolus 1,000 mL (COMPLETED) 1,000 mL (16.9 mL/kg), IntraVENous, at 983.6 mL/hr, Administer over 61 Minutes, ONCE, On Sat06/05/24 at 1700, For 1 dose 1712 (New Bag - Prov ider: Lisa Gallego RN)1737 (Stopped - Provider: Sigrid Waite LPN) Scheduled Medication Order 06/08/2024 06/09/2024 06/10/2024 cefdinir (OMNICEF) capsule 300 mg (COMPLETED) 300 mg, Oral, ONCE, 1 dose, On Sat06/10/24 at 1545, Antimicrobial Indications: Pneumonia (CAP) 1544 (Given - Provid er: Alma Delia Redd RN) doxycycline hyclate (VIBRAMYCIN) capsule 100 mg (COMPLETED) 100 mg, Oral, ONCE, 1 dose, On Sat06/10/24 at 1545, Antimicrobial Indications: Pneumonia (CAP), This medication can interact with tube feedings (TF)- obtain MD order to manage. Recommend holding TF for 1 h before and 2 h after dose. Take 1 h before or 2 h after dairy, calcium, iron, magnesium, aluminum or zinc. 1544 (Given - Provid er: Alma Delia Redd RN) HYDROcodone-acetaminophen (NORCO) 5-325 MG per tablet 1 tablet (COMPLETED) 1 tablet, Oral, ONCE, 1 dose, On Sat06/10/24 at 1415, Maximum dose of acetaminophen is 4000 mg from all sources in 24 hours. 1449 (Given - Provid er: Alma Delia Redd RN) ketorolac (TORADOL) injection 15 mg (COMPLETED) 15 mg, IntraVENous, ONCE, 1 dose, On Sat06/10/24 at 1330 1334 (Given - Provid er: Alma Delia Redd RN) LORazepam (ATIVAN) injection 1 mg (COMPLETED) 1 mg, IntraVENous, ONCE, 1 dose, On Sat06/10/24 at 1330, Immediately prior to intravenous use, lorazepam Injection must be diluted with at least an equal volume of compatible solution (NS or D5W). 1334 (Given - Provid er: Alma Delia Redd RN) sodium chloride 0.9 % bolus 1,000 mL (COMPLETED) 1,000 mL (16.9 mL/kg), IntraVENous, at 983.6 mL/hr, Administer over 61 Minutes, ONCE, On Sat06/10/24 at 1330, For 1 dose 1333 (New Bag - Prov ider: Alma Delia Redd RN)1447 (Stopped - Provider: Alma Delia Redd RN) Scheduled Medication Order 06/15/2024 06/16/2024 06/17/2024 ketorolac (TORADOL) injection 30 mg (COMPLETED) 30 mg, IntraMUSCular, Once, 1 dose, On Sat06/17/24 at 0530, Do not administer for more than 5 days. 0533 (Given - Provid er: Gertrude Velasco RN) orphenadrine (NORFLEX) injection 60 mg (COMPLETED) 60 mg, IntraMUSCular, ONCE, 1 dose, On Sat06/17/24 at 0530 0533 (Given - Provid er: Gertrude Velasco RN) Scheduled Medication Order 06/29/2024 06/30/2024 07/01/2024 HYDROcodone-acetaminophen (NORCO) 5-325 MG per tablet 1 tablet (COMPLETED) 1 tablet, Oral, ONCE, 1 dose, On Sat07/01/24 at 0830, Maximum dose of acetaminophen is 4000 mg from all sources in 24 hours. 0823 (Given - Provid er: Papa Delgado RN) ketorolac (TORADOL) injection 30 mg (COMPLETED) 30 mg, IntraMUSCular, ONCE, 1 dose, On Sat07/01/24 at 0830 0827 (Given - Provid er: Papa Delgado RN) lidocaine 4 % external patch 1 patch 1 patch, TransDERmal, Administer over 12 Hours, ONCE, On Sat07/01/24 at 0830, For 1 dose, Apply patch to low back. The product development consultant's recommendations for the number of patches that can be applied within a 24-hour period varies from 1 to 4 times daily and the duration of application varies from 8 to 24 hours; refer to the product development consultant's labeling for product-specific recommendations. 821 (Patch Applied - Provider: Papa Delgado RN)2021 (Due: Patch Removed - Provider: Papa Delgado RN) orphenadrine (NORFLEX) injection 60 mg (COMPLETED) 60 mg, IntraMUSCular, ONCE, 1 dose, On Sat07/01/24 at 0830 0826 (Given - Provid er: Papa Delgado RN) predniSONE (DELTASONE) tablet 60 mg (COMPLETED) 60 mg, Oral, ONCE, 1 dose, On Sat07/01/24 at 0830 0825 (Given - Provid er: Papa Delgado RN) Scheduled Medication Order 07/06/2024 07/07/2024 07/08/2024 ketorolac (TORADOL) injection 30 mg (COMPLETED) 30 mg, IntraMUSCular, ONCE, 1 dose, On Sat07/08/24 at 2100, Do not administer for more than 5 days. 2122 (Given - Provid er: Masoud Hammer RN) oxyCODONE-acetaminophen (PERCOCET) 5-325 MG per tablet 1 tablet (COMPLETED) 1 tablet, Oral, ONCE, 1 dose, On Sat07/08/24 at 2100, Maximum dose of acetaminophen is 4000 mg from all sources in 24 hours. 2122 (Given - Provid er: Masoud Hammer RN) Scheduled Medication Order 07/10/2024 07/11/2024 07/12/2024 gabapentin (Neurontin) capsule 300 mg (COMPLETED) 300 mg, oral, Once, On 07/12/24 at 0340, For 1 dose, Capsules may be opened and sprinkled on food (eg, applesauce, orange juice, pudding 409 (Given - Provid er: Joe Salazar LPN) orphenadrine (Norflex) injection 60 mg 60 mg, intramuscular, Once, On 07/12/24 at 0340, For 1 dose 411 (Not Given - Pr ovider: Joe Salazar LPN - Reason: Patient/family refused) oxyCODONE (Roxicodone) immediate release tablet 5 mg (COMPLETED) 5 mg, oral, Once, On 07/12/24 at 0340, For 1 dose, If ordered PRN for pain, nurse is permitted to administer this medication for higher pain scores based on patient preference? Yes 0410 (Given - Provid er: Joe Salazar LPN) Scheduled Medication Order 07/30/2024 07/31/2024 08/01/2024 oxyCODONE-acetaminophen (PERCOCET) 5-325 MG per tablet 1 tablet (COMPLETED) 1 tablet, Oral, ONCE, 1 dose, On [facility] 08/01/24 at 0515, Maximum dose of acetaminophen is 4000 mg from all sources in 24 hours. 0508 (Given - Provid er: Collette Duarte RN) Scheduled Medication Order 08/04/2024 08/05/2024 08/06/2024 aluminum & magnesium hydroxide-simethicone (MAALOX PLUS) 30 mL, lidocaine viscous hcl (XYLOCAINE) 5 mL (GI COCKTAIL) (COMPLETED) Oral, ONCE, On [facility] 08/06/24 at 0445, For 1 dose, Take 5 mL from lidocaine viscous 2% cup and mix with 30 mL of maalox and then administer. 045 (Given - Provid er: Demetrice Taylor RN) ketorolac (TORADOL) injection 30 mg (COMPLETED) 30 mg, IntraMUSCular, ONCE, 1 dose, On [facility] 08/06/24 at 0445, Do not administer for more than 5 days. 455 (Given - Provid er: Demetrice Taylor RN) Scheduled Medication Order 08/06/2024 08/07/2024 08/08/2024 ketorolac (TORADOL) injection 30 mg (COMPLETED) 30 mg, IntraMUSCular, ONCE, 1 dose, On [facility] 08/08/24 at 2000, Do not administer for more than 5 days. 1955 (Given - Provid er: Keila Watson RN) lidocaine 4 % external patch 1 patch 1 patch, TransDERmal, Administer over 12 Hours, Once, On [facility] 08/08/24 at 2030, For 1 dose, Apply patch to right hip. The product development consultant's recommendations for the number of patches that can be applied within a 24-hour period varies from 1 to 4 times daily and the duration of application varies from 8 to 24 hours; refer to the product development consultant's labeling for product-specific recommendations. 2027 (Patch Applied - Provider: Keila Watson RN) Scheduled Medication Order 08/18/2024 08/19/2024 08/20/2024 ketorolac (Toradol) injection 60 mg (COMPLETED) 60 mg, intramuscular, Once, On Alicia 08/20/24 at 1055, For 1 dose 1115 (Given - Provid er: Nuno Castle RN) lidocaine 4 % patch 1 patch 1 patch, transdermal, Administer over 12 Hours, Once, On Alicia 08/20/24 at 1055, For 1 dose, Apply to point of maximum pain. Patch will remain on for 12 hours, then removed for [address] patch directly over any surgical incisions or wounds. 111 (Medication Surinder lied - Provider: Nuno Castle RN - Comment: back placement)2315 (Due: Medication Removed - Provider: Nuno Castle RN) <item><item><item><item><item><item> Privacy Markings (unrecogniz ed section and content) Section Author: Susana Hernandez PROHIBITION ON REDISCLOSURE OF CONFIDENTIAL INFORMATION This notice accompanies a disclosure of information concerning a client made to you with the consent of such client. Section Author: Susana Hernandez PROHIBITION ON REDISCLOSURE OF CONFIDENTIAL INFORMATION This notice accompanies a disclosure of information concerning a client made to you with the consent of such client. Section Author: Susana Hernandez PROHIBITION ON REDISCLOSURE OF CONFIDENTIAL INFORMATION This notice accompanies a disclosure of information concerning a client made to you with the consent of such client. Section Author: Susana Hernandez PROHIBITION ON REDISCLOSURE OF CONFIDENTIAL INFORMATION This notice accompanies a disclosure of information concerning a client made to you with the consent of such client. Section Author: Susana Hernandez PROHIBITION ON REDISCLOSURE OF CONFIDENTIAL INFORMATION This notice accompanies a disclosure of information concerning a client made to you with the consent of such client. Section Author: Susana Hernandez PROHIBITION ON REDISCLOSURE OF CONFIDENTIAL INFORMATION This notice accompanies a disclosure of information concerning a client made to you with the consent of such client. Goals (unrecognized section and content) Goals may be documented in a n alternate sectionGoals may be documented in an alternate sectionGoals may be documented in an alternate sectionGoals may be documented in an alternate sectionGoals may be documented in an alternate sectionGoals may be documented in an alternate sectionGoals may be documented in an alternate section No data available for this sectionGoals may be documented in an alternate sectionGoals may be documented in an alternate sectionGoals may be documented in an alternate sectionGoals may be documented in an alternate section No data available for this sectionGoals may be documented in an alternate sectionGoals may be documented in an alternate sectionGoals may be documented in an alternate section No data available for this sectionGoals may be documented in an alternate sectionGoals may be documented in an alternate sectionGoals may be documented in an alternate sectionGoals may be documented in an alternate sectionGoals may be documented in an alternate sectionGoals may be documented in an alternate sectionGoals may be documented in an alternate sectionGoals may be documented in an alternate sectionGoals may be documented in an alternate section No data available for this sectionGoals may be documented in an alternate sectionGoals may be documented in an alternate sectionGoals may be documented in an alternate sectionGoals may be documented in an alternate sectionGoals may be documented in an alternate section No data available for this sectionGoals may be documented in an alternate sectionGoals may be documented in an alternate section INFORMATION SOURCE (unrecogn ized section and content) DATE CREATED AUTHOR 09/03/2022 [facility] DATE CREATED AUTHOR AUTHOR'S ORGANIZ ATION 10/09/2022 [facility] DATE CREATED AUTHOR AUTHOR'S ORGANIZ ATION 02/17/2023 [facility] DATE CREATED AUTHOR AUTHOR'S ORGANIZ ATION 05/03/2023 [facility] DATE CREATED AUTHOR AUTHOR'S ORGANIZ ATION 05/03/2023 [facility] DATE CREATED AUTHOR AUTHOR'S ORGANIZ ATION 05/12/2023 [facility] DATE CREATED AUTHOR AUTHOR'S ORGANIZ ATION 07/20/2023 [facility] [place] DATE CREATED AUTHOR AUTHOR'S ORGANIZ ATION 08/15/2023 [facility] DATE CREATED AUTHOR AUTHOR'S ORGANIZ ATION 08/30/2023 [facility] DATE CREATED AUTHOR AUTHOR'S ORGANIZ ATION 09/05/2023 [facility] DATE CREATED AUTHOR AUTHOR'S ORGANIZ ATION 09/18/2023 [facility] DATE CREATED AUTHOR AUTHOR'S ORGANIZ ATION 09/22/2023 [facility] DATE CREATED AUTHOR AUTHOR'S ORGANIZ ATION 10/20/2023 [facility] DATE CREATED AUTHOR AUTHOR'S ORGANIZ ATION 10/23/2023 [facility] DATE CREATED AUTHOR AUTHOR'S ORGANIZ ATION 10/24/2023 [facility] DATE CREATED AUTHOR AUTHOR'S ORGANIZ ATION 10/28/2023 [facility] DATE CREATED AUTHOR AUTHOR'S ORGANIZ ATION 10/28/2023 [facility] DATE CREATED AUTHOR AUTHOR'S ORGANIZ ATION 11/01/2023 [facility] DATE CREATED AUTHOR AUTHOR'S ORGANIZ ATION 11/02/2023 [facility] DATE CREATED AUTHOR AUTHOR'S ORGANIZ ATION 11/30/2023 [facility] DATE CREATED AUTHOR AUTHOR'S ORGANIZ ATION 01/01/2024 [facility] DATE CREATED AUTHOR AUTHOR'S ORGANIZ ATION 01/22/2024 [facility] DATE CREATED AUTHOR AUTHOR'S ORGANIZ ATION 01/26/2024 [facility] DATE CREATED AUTHOR AUTHOR'S ORGANIZ ATION 01/26/2024 [facility] DATE CREATED AUTHOR AUTHOR'S ORGANIZ ATION 02/24/2024 [facility] DATE CREATED AUTHOR AUTHOR'S ORGANIZ ATION 03/21/2024 [facility] DATE CREATED AUTHOR AUTHOR'S ORGANIZ ATION 03/27/2024 [facility] DATE CREATED AUTHOR AUTHOR'S ORGANIZ ATION 04/25/2024 [facility] DATE CREATED AUTHOR AUTHOR'S ORGANIZ ATION 05/19/2024 [facility] DATE CREATED AUTHOR AUTHOR'S ORGANIZ ATION 06/19/2024 [facility] DATE CREATED AUTHOR AUTHOR'S ORGANIZ ATION 06/24/2024 [facility] DATE CREATED AUTHOR AUTHOR'S ORGANIZ ATION 07/21/[address] [facility] [place] DATE CREATED AUTHOR AUTHOR'S ORGANIZ ATION 07/23/2024 [facility] DATE CREATED AUTHOR AUTHOR'S ORGANIZ ATION 07/31/2024 [facility] DATE CREATED AUTHOR AUTHOR'S ORGANIZ ATION 08/08/2024 [facility] DATE CREATED AUTHOR AUTHOR'S ORGANIZ ATION 08/14/2024 [facility] DATE CREATED AUTHOR AUTHOR'S ORGANIZ ATION 08/17/2024 [facility] DATE CREATED AUTHOR AUTHOR'S ORGANIZ ATION 08/20/2024 [facility] FOR RECORDS PERTAINING TO PATIENTS WHO ARE OR HAVE BEEN ENROLLED IN A CHEMICAL DEPENDENCY/SUBSTANCEABUSE PROGRAM, SOME INFORMATION MAY BE OMITTED. This clinical summary was aggregated from multiple sources. Caution should be exercised in using it in the provision of clinical care. This summary normalizes information from multiple sources, and as a consequence, information in this document may materially change the coding, format and clinical context of patient data. In addition, data may be omitted in some cases. CLINICAL DECISIONS SHOULD BE BASED ON THE PRIMARY CLINICAL RECORDS. [employer] provides no warranty or guarantee of the accuracy or completeness of information in this document.
--- NOTE | 2024-08-21 05:07 | EDS_ITS ---
HPI History of Present Illness Chief Complaint: Fall Informant: patient Narrative Narrative: Patient is a 54-year-old female with past manage anxiety depression and fibromyalgia. 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 She reports over the last 2 days she was restraining a individual and she injured her right hip and left shoulder. She states she still been able to ambulate and move the arm but there is pain with doing so and she is unsure if she may have damaged her rotator cuff or cause bursitis to her hip and secondary to this comes in for evaluation. [facility] Medical History (Updated 08/21/24 @ 22:[address] Jose Alfaro DO) Depression Anxiety Fibromyalgia Ankylosing spondylitis Epilepsy Home Medications ?Medication ?Instructions ?Recorded ?Last Taken ?Type duloxetine 60 mg capsule,delayed 60 mg PO DAILY Unknown History release (Cymbalta) fluticasone fur. 200 mcg-umeclid 1 ea inhalation DAILY 10/27/23 Unknown History 62.5 mcg-vilant 25 mcg inhalat.powder (Trelegy Ellipta) fluticasone propionate 50 2 spray intranasal DAILY PRN 10/27/23 Unknown History mcg/actuation nasal congestion spray,suspension lamotrigine 150 mg tablet 150 mg PO DAILY 10/27/23 Unk nown History oxycodone 5 mg tablet 5 mg PO Q6H PRN pain 3 days #12 08/21/24 Unknown Rx tabs Allergy/AdvReac Type Severity Reaction Status Date / Time No Known Allergies Allergy Verified 08/21/24 05:12 Surgical History History of herniorrhaphy Hx of section Social History household members: children Smoking Status: Current every day smoker tobacco type: cigarettes alcohol intake: current substance use type: does not use ROS ROS ED Constitutional Constitutional ED: Denies chills or fever(s) Eyes Eyes: Denies change in vision ENT ENT ED: Denies sore throat Cardiovascular Cardiovascular: Denies chest pain Respiratory/Chest Respiratory/Chest: Denies cough or dyspnea Gastrointestinal Gastrointestinal: Denies abdominal pain, diarrhea, nausea or vomiting Musculoskeletal Musculoskeletal: Reports other Details: Positive left shoulder and right hip pain Integumentary Denies rash Neurologic Neurologic: Denies headache(s) or paresthesias Hematologic/Lymphatic Hematologic/Lymphatic: Denies easy bleeding or easy bruising EXAM Physical Exam Const Vital Signs: 08/21/24 03:32 08/21/24 03:32 08/21/24 05:27 Temperature 98.1 F 98.1 F Temperature Source Oral Pulse Rate 107 H 100 Respiratory Rate 16 16 Respiratory Effort Normal Non-Labored Respiratory Depth Normal Respiratory Pattern Normal Blood Pressure 170/100 H 152/74 H Blood Pressure Mean 123 100 Pulse Ox 98 98 Oxygen Delivery Method Room Air Room Air Positive well nourished and well developed General Appearance ED: well developed; Negative for pallor HEENT HEENT Narrative: Normocephalic atraumatic Eyes PERRL and EOMs intact bilaterally General Eye ED: Negative for scleral icterus Neck supple Neck Narrative: No bony deformity or step-off of the cervical spine no midline tenderness to palpation Resp normal respiratory effort and clear to auscultation bilaterally Cardio regular rate and regular rhythm Back/Spine Back/Spine Narrative: No bony deformity or step-off of the thoracic or lumbar spine Extremity Extremity Narrative: Left upper extremity is neurovascularly intact. There is no obvious bony deformity or joint effusion. There is mild diffuse pain with palpation. There is pain with external and internal rotation as well as right-sided shoulder raising. Negative sulcus sign Pelvis is stable and there is no shortening or external rotation of either lower extremity There is pain palpation along the SI joint region as well as right greater trochanter. There is pain with external rotation and abduction. No overlying soft tissue changes to suggest trauma or infection All compartments are soft and compressible going against compartment syndrome Neuro oriented x3, CN's II-XII intact bilaterally and no sensory deficits noted Sensorium / Orientation: alert Motor Exam: strength 5/5 throughout Psych Mood & Affect: anxious and tearful Skin no rashes or lesions noted and no wounds General Skin Exam: Negative for jaundice or pallor MDM MDM MDM Narrative Medical decision making narrative: Patient arrived to the ER hypertensive but is in pain and anxious and otherwise with stable vital. She reported injury to the shoulder and hip after restraining an individual at work. By exam there is no obvious signs of fracture or dislocation. However patient could still have these versus contusion versus AC joint separation versus rotator cuff injury or muscular strain. There is no overlying findings to suggest infection such as erythema or warmth and therefore only felt need for x-rays at this time and not blood work. Compartments are soft and compressible going against compartment syndrome. Physical exam did not suggest septic joint. X-rays revealed no acute findings and after pain medication patient did have improvement of symptoms. Therefore this time patient appears to have tendinitis and a muscular strain and she can be given symptomatic care and is otherwise safe for discharge. Radiography Diagnostic Testing: Clinical Impression(s) from Imaging Studies Hip/Pelvis X-Ray 08/21/24 04:20 IMPRESSION: No evidence for acute abnormality. [facility] Should[facility] X-Ray 08/21/24 04:20 IMPRESSION: No evidence for acute abnormality. Reading Location: [place] [id number] Right hip x-rays 1 view pelvis as interpreted by the emergency medicine physician reveals no acute fracture or dislocation or joint effusion X-ray of the left shoulder as interpreted by the emergency medicine physician reveals no acute fracture or dislocation Discharge Plan Triage Chief Complaint: Fall ED Provider: Jose Alfaro Dx/Rx/DC Orders Clinical Impression: Rotator cuff tendonitis, Strain of right hip, Anxiety, Depression, Fibromyalgia Instructions: Rotator Cuff Injury, ED Hip Strain Prescriptions: New oxycodone 5 mg tablet 5 mg PO Q6H PRN (Reason: pain) 3 Days Qty: 12 0RF No Action lamotrigine 150 mg tablet 150 mg PO DAILY duloxetine [Cymbalta] 60 mg capsule,delayed release(DR/EC) 60 mg PO DAILY fluticasone propionate 50 mcg/actuation spray,suspension 2 spray INTRANASAL DAILY PRN (Reason: congestion) Trelegy Ellipta 200-62.5-25 mcg blister with device 1 ea INHALATION DAILY Stand Alone Forms: ED Work / School Excuse Primary Care Provider: [facility] Doctor,Out of Referrals: Masoud Flannery DO [Med Staff - Active Staff] - [facility] Doctor,Out of [Primary Care Provider] - Activity Restrictions/Additional Instructions: Please follow-up with orthopedic surgery to discuss potential treatment options regarding your shoulder pain. Return to the ER should you have any further concerns Print Language: Telugu Disposition Disposition: Home, Self Care Discharge Date/Time: 08/21/24 05:27
[2024-08-21 05:27] VITALS: BP 152/74; PULSE 100; RESP 16; TEMP 36.7; O2SAT 98
== END 2024-08-21 05:27 | disposition home or self-care (01) ==
PROVIDERS: Emergency Provider Emergency Medicine; Visit Provider Emergency Medicine
DX: M75.82 Other shoulder lesions, left shoulder (principal); G40.909 Epilepsy, unspecified, not intractable, without status epilepticus; S76.011A Strain of muscle, fascia and tendon of right hip, initial encounter; X58.XXXA Exposure to other specified factors, initial encounter; Y93.89 Activity, other specified; M79.7 Fibromyalgia; F32.A Depression, unspecified; F41.9 Anxiety disorder, unspecified; F17.210 Nicotine dependence, cigarettes, uncomplicated; Y99.0 Civilian activity done for income or pay; Y92.538 Other ambulatory health services establishments as the place of occurrence of the external cause; Z79.899 Other long term (current) drug therapy
CPT/HCPCS: 73030; 73502; 99282

== ENCOUNTER 2024-11-05 04:45 | Emergency (ER) | payer MEDICAID, SELFPAY ==
[2024-11-05 04:46] VITALS: BP 157/83; PULSE 92; RESP 18; TEMP 36.5; O2SAT 95; BMI 22.4
--- NOTE | 2024-11-05 04:58 | ED.RN ---
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 also reports aggravation of chronic neck and lower back pain. pt tearful and frustrated. expressing frustration w/the amt of time workman's comp is taking to get her pain treated. [facility] paperwork filed in august. pt repeatedly asking for us to treat her pain with something strong while I'm here. md advised pt that tylenol and anti-inflammatories are appropriate for her treatment. she expresses frustration and asks for something stronger multiple times. pt left after md discussed treatment plan and denied her requests for narcotics.
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
--- OUTSIDE RECORDS SUMMARY | 2024-11-05 05:07 | XMS RPT_ITS | CCD ---
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 Matt Vang Attending Unavaila ble Pending, Provider Primary Care Unavailable Unavailable [facility] Care Provider Unav ailable Jaime Davis Primary Care Provider [facility] Primary Care Provider Unav ailable Jaime Davis Unavailable Unavailable Ary Main Unavailable Pending, Provider Primary Care Unavailable Bam, Dr. Saul Stover Attending Unavailable Pending, Provider Primary Care Unavailable Bam, Dr. Saul Stover Attending Unavailable Pending, Provider Primary Care Unavailable Bam, Dr. Saul Stover Attending Unavailable Ryan, Dr. Jaime Padgett Primary Care Unavaila ble Jose David, Dr. Ary Montana Attending Kelly Melendez, Dr. Bridgette Pozo Attending Unav ailable Pending, Provider Primary Care Unavailable Brandy, Dr. Asael Tyler Attending Kelly Marcial, Mr. Amandeep Perez Attending Dejava ilromario Pending, Provider Primary Care Unavailable Jessenia Miller Primary Care Provider [phone] Jaime Davis Unavailable Unavailable Primary Care Provider Unavailabl Shakeel Terrazas Emergency Provider Jaime Davis Primary Care Provider MD Arun Hawley Emergency Provider [phone] Jaime Davis MD Primary Care Provider MD Homer Soria Emergency Provider JESSENIA MILLER Primary Care Unavailab MARIELY Menard Attending Unavailable MARIELY VIERA Referring Unavailable JESSENIA MILLER Primary Care Unavailab Jaime Schultz Primary Care Provider [phone] MD Homer Soria Emergency Provider MD Kathia Gallego Emergency Provider None Primary Care Physician Unavailab JESSENIA Walker Primary Care Unavailab MARIELY Menard Attending Unavailable JAE SOMMER Referring Unavailable ASHLEYTERJESSENIA JONES Primary Care Unavailab le CATTERJESSENIA JONES Primary Care Unavailab SIGRID Salinas Referring Unavailable ASHLEYTERROBERT, JESSENIA TYLER Primary Care Unavailab le JAE SOMMER Attending Unavailable CATTERROBERT, JESSENIA TYLER Primary Care Unavailab BRANDY Wallis II Attending Unavailable PCP, NO Primary Care Unavailable BRANDY [place] II Referring Unavailable PCP, NO Primary Care Unavailable PCP, NO Primary Care Unavailable DARIANA NELSON Attending Unavailable DARIANA NELSON Referring Unavailable PCP, NO Primary Care Unavailable Maria Elena Montalvo MD Primary Care Provider [phone] JESSENIA MILLER Primary Care Unavailab JESSENIA Walker Primary Care Unavailab le ANGELA BURKETT Referring Unavailable JESSENIA MILLER Primary Care Unavailab LAM Mcfarland Referring Unavailable BRO MCKINLEY Attending Unavailable MARIA ELENA MONTALVO Primary Care Unavailable MARIA ELENA MONTALVO MD Primary Care Physician None Primary Care Physician Unavailab Maria Elena Morillo MD Primary Care Provider Jaime Davis Primary Care Provider MD Kathia Gallego Emergency Provider [phone] Maria Elena Montalvo Primary Care Provider MD Naeem Heredia Emergency Provider None Primary Care Physician Unavailab Babs Machuca Emergency Provider Jessenia Miller Primary Care Provider [phone] None Primary Care Physician Unavailab Maria Elena Morillo MD Unavailable Babs Lou Emergency Provider [phone] Jaime Davis Primary Care Provider [facility], [facility] Emergency Provider Unavailable Mike Bowen Emergency Provider [phone] Donald Lainez Emergency Provider [phone] Thomas, Cuca Emergency Provider Shakeel Stephens Emergency Provider [phone] provider (Unknown), Unlisted Primary Care Provid er Unavailable Unavailable Primary Care Provider UnavailJessenia Grimm Unavailable Maria Elena Montalvo MD Primary Care Provider NO, PHYSICIAN Primary Care Unavailable TJ CASTRO Attending Unavailable MARIA ELENA MONTALVO MD Primary Care Unavailable TAYLER RACHEL, CULLEN Benedict Attending Unavailable BRO CHAVEZ DO Attending Unavailable MARIA ELENA MONTALVO MD Primary Care Unavailable MARIA ELENA MONTALVO MD Primary Care Unavailable RYANNE HENLEY MD Attending Unavailable None Primary Care Physician Unavailab le JAIME DAVIS Primary Care Unavailable NATHAN PRINCE Attending Unavailable SHRUTHI OSBORN Referring Unavailable JAIME DAVIS Primary Care Unavailable Jaime Davis Primary Care Provider [phone] Donald Lainez Emergency Provider [facility], ER Emergency Provider Unavailable Babs Lou Emergency Provider None Primary Care Physician Unavailab Maria Elena Morillo MD Primary Care Provider SELVINMARIA ELENA Cortes Primary Care Unavailable SELVINMARIA ELENA Cortes Primary Care Unavailable SHRUTHI HURT Attending Unavaila ble SYSTEM, PCP NOT IN Primary Care Unavailable TRISTAN PRO III Attending Unavailable PCP, DO Unknown Primary Care Provider Unavailabl e MD Catrachito Lrema MD Emergency Provider Catrachito Lerma MD Attending Unavaila ble PCP, Unknown Primary Care Unavailable None Primary Care Physician Unavailab le None Primary Care Physician Unavailab Jessenia Walker Primary Care Provider [phone] Jaime Davis Primary Care Provider Shakeel Stephens Emergency Provider Elizabeth Santos Emergency Provider [phone] Jaime Davis Primary Care Unavailable [facility], [facility] Attending Unavailable Jaime Davis Primary Care Unavailable Donald Lainez Attending Unavailable Babs Lou Attending Unavailable provider (Unknown), Unlisted Primary Care Deja vailable provider (Unknown), Unlisted Primary Care Deja vailable Babs Lou Attending Unavailable Shakeel Stephens Attending Unavailable provider (Unknown), Unlisted Primary Care Deja vailable Elizabeth Santos Attending Unavailable provider (Unknown), Unlisted Primary Care Deja vailable None Primary Care Physician Unavailab Maria Elena Morillo MD Primary Care Provider JOCELYNE ALBERT Attending Unavailable TRISHA TENORIO Referring Unavailab le SELVIN BASEM N Primary Care Unavailable BAYRON FIELDS [...] Unavailable SELVIN, BASEM N Primary Care Unavailable HANIFFMARGARETTEAAGerman M Attending Unavailable CATTERLIN, JESSENIA L Primary Care Unavailable HANIFFLATANYA M Attending Unavailable CATTERLIN, JESSENIA L Primary Care Unavailable HOPLIGHT, AMY Attending Unavailable SELVIN, BASEM N Primary Care Unavailable HOPLIGHT, AMY Attending Unavailable JAIME DAVIS Primary Care Unavailable GILLIAN SOSA Attending Unavailable SELVIN, BASEM ELIZABETH Primary Care Unavailable GREG ZAMARRIPA Attending Unavailable LOMASNEY DO~[id number], YIMI REYNOSO Attending Unavailable LOMASNEY DO~[id number], ESTHELAMASNEY EDGARDO Admitting Unavailable SELVIN, BASEM ELIZABETH Primary Care Unavailable SELVIN, BASEM ELIZABETH Primary Care Unavailable LOMASNEY DO~[id number], YIMI REYNOSO Attending Unavailable LOMASNEY DO~[id number], LOMASNEY EDGARDO Admitting Unavailable None Primary Care Physician Unavailab Erica Orta Attending Unavailable Selvin, Basem Attending Unavailable Selvin, Basem Attending Unavailable Selvin , Basem German Unavailable SELVIN RACHEL, BASEM N Primary Care Unavailable CLEMENTE DREW DO Attending Unavailable SELVIN MD, BASEM N Primary Care Unavailable DR SANTA LESTER MD Attending Unavailabl e Selvin MD, Basem Elizabeth Primary Care Provider Selvin MD, Basem Elizabeth Unavailable CECE STEWART Attending Unavailable SELVIN, BASEM N Primary Care Unavailable Selvin MD, Basem N Primary Care Provider Selvin MD, Basem German Unavailable Selvin RACHEL, Basem N Primary Care Provider Selvin , Base N Unavailable None Primary Care Physician Unavailab le [facility] Doctor, Out of Primary Care Provider Unavai Dr. Jose Cagle DO Emergency Provider Jose Alfaro Attending Unavailable [facility] Doctor, Out of Primary Care Unavailable PASTOR NUNEZ Primary Care Unavailable Edwar Fitzpatrick Attending Unavailable Care Physician, No Primary Primary Care Unava ilable Jose Alfaro Attending Unavailable Selvin , [facility] Primary Care Provider Selvin , Base Primary Care Provider Selvin , Base Attending Provider Selvin, Basem Attending Unavailable Selvin, Basem Attending Unavailable Selvin, Basem Attending Unavailable Selvin, Basem Attending Unavailable SELVIN, BASEM ELIZABETH Primary Care Unavailable PROVIDER, UNKNOWN Admitting Unavailable PROVIDER, UNKNOWN Attending Unavailable PROVIDER, UNKNOWN Admitting Unavailable JOSE VILLAGOMEZ Attending Unavailable SELVIN, BASEM Primary Care Unavailable SELVIN, BASEM Primary Care Unavailable KEENA YBARRA Attending Unavailable SELVIN, BASEM Primary Care Unavailable SELVIN, BASEM Primary Care Unavailable SONAL MCLAUGHLIN Referring Unavailable SELVIN, BASEM Primary Care Unavailable KEV HSU Attending Unavailable SELVIN, BASEM Primary Care Unavailable ROSI PETERSEN Attending Unavailabl e SELVIN, BASEM Primary Care Unavailable EKV HSU Attending Unavailable SELVIN, BASEM Primary Care Unavailable SAMIRA VALERA Referring Unavailable SELVIN, BASEM Primary Care Unavailable RON NUÑEZ Referring Unavailable SELVNI, BASEM Primary Care Unavailable KEV HSU Attending Unavailable SELVIN, BASEM Primary Care Unavailable BRO MCKINLEY Attending Unavailable SELVIN, BASEM Primary Care Unavailable SELVIN, BASEM Primary Care Unavailable SOPHIA MANCILLA Referring Unavailable SELVIN, BASEM Primary Care Unavailable SOPHIA MANCILLA Referring Unavailable SELVIN, BASEM Primary Care Unavailable KAILEE DILLON Referring Unavailable SELVIN, BASEM Primary Care Unavailable KEV HSU Referring Unavailable JIA HUERTA Attending Unavailabl e SELVIN, BASEM Primary Care Unavailable SELVIN, BASEM Primary Care Unavailable JIA HUERTA Attending Unavailabl e SELVIN, BASEM Primary Care Unavailable SELVIN, BASEM Primary Care Unavailable SELVIN, BASEM Primary Care Unavailable SONAL MCLAUGHLIN Attending Unavailable SELVIN, BASEM Primary Care Unavailable CHICHI, SAMIRA L Referring Unavailable NINOSKA MUNOZ Referring Unavailable SELVIN, BASEM Primary Care Unavailable SELVIN, BASEM Primary Care Unavailable LISSA FIDENCIO Mcgrath Referring Unavailable LISSA ELSIE McgrathER Attending Unavailable SELVIN, BASEM Primary Care Unavailable GERICHYLMAN, SAMIRA L Referring Unavailable SELVIN, BASEM Primary Care Unavailable Buck Unger Attending Unavailable Selvin, Basem N Primary Care Unavailable Moreno Ojeda Attending Unavailable Selvin, Basem N Primary Care Unavailable Viky Michele Attending Unavailable Selvin, Basem N Primary Care Unavailable Buck Unger Attending Unavailable Selvin, Basem N Primary Care Unavailable Siddhartha Siddiqi Attending Unavailable Selvin, Basem N Primary Care Unavailable Siddhartha Siddiqi Attending Unavailable Selvin, Basem N Primary Care Unavailable NO DVAIS MD Attending Unavailab vy MONTALVO MD, BASEM N Primary Care Unavailable NO DAVIS MD Attending Unavailab vy MONTALVO MD, BASEM N Primary Care Unavailable NO DAVIS MD Attending Unavailab vy MONTALVO MD, BASEM N Primary Care Unavailable ELIZABETH SANTOS PA-C Attending Unavaila buzz MONTALVO MD, BASEM N Primary Care Unavailable SELVIN, BASEM Primary Care Unavailable SAMUEL LOPEZ Attending Unavailable SELVIN, BASEM Primary Care Unavailable CARMENZA VINCENT Attending Unavailable SELVIN, BASEM Primary Care Unavailable SAMUEL LOPEZ Attending Unavailable SELVIN, BASEM Primary Care Unavailable JAN SMITH Attending Unavailable SELVIN, BASEM Primary Care Unavailable SELVIN, BASEM Primary Care Unavailable JENNIFER MAE Attending Unavailable SELVIN, BASEM ELIZABETH Primary Care Unavailable TONYA TRAN Attending UnavailSIDDHARTHA Prather Attending Unavailable SIDDHARTHA PARTIDA Referring Unavailable SELVIN, BASEM ELIZABETH Primary Care Unavailable SELVIN, BASEM ELIZABETH Primary Care Unavailable CASEY DUNCAN Attending Unavail able SELVIN, BASEM ELIZABETH Primary Care Unavailable LESLEY TAYLOR Attending Unavailable SELVIN, BASEM ELIZABETH Primary Care Unavailable LESLEY TAYLOR Attending Unavailable SELVIN, BASEM ELIZABETH Primary Care Unavailable SELVIN, BASEM ELIZABETH Primary Care Unavailable TIWARI, CHRIS Attending Unavailable SELVIN, BASEM ELIZABETH Primary Care Unavailable SELVIN, BASEM ELIZABETH Primary Care Unavailable HARVEY BRITO Attending Unavailabl e SELVIN, BASEM N Primary Care Unavailable physician, Non-Staff Primary Care Physician Unav ailable EDWARD PARKER Attending Unavailable CASEY DUNCAN Referring Unavail able SELVIN, BASEM ELIZABETH Primary Care Unavailable Ryne Ramirez Attending Unavailable Edwar Raygoza Attending Unavailable Elaine, Jayson Attending Unavailable Elaine, Jayson Attending Unavailable Mone Roman Attending Unavailable Clive Campbell Attending Unavailable Edwar Raygoza Attending Unavailable Gaurav Patel Attending Unavailable Clive Campbell Attending Unavailable Bob Dominguez Attending Unavailable Kranthi, Siddhartha Attending Unavailable Macario Kincaid Attending Unavailable PCP, NO Primary Care Unavailable AYLIN MALDONADO Attending Unavailable KAYODE JANSEN Referring Unavailable SELVIN, BASEM Primary Care Unavailable SELVIN, BASEM Primary Care Unavailable SELVIN, BASEM Primary Care Unavailable SHADY SUAREZ Attending Unavailable KAYODE JANSEN Attending Unavailable SELVIN, BASEM Primary Care Unavailable SELVIN, BASEM Primary Care Unavailable BABS THOMAS Attending Unavailable MASOUD FINK Attending Unavailable SELVIN, BASEM Primary Care Unavailable KAYODE JANSEN Attending Unavailable SELVIN, BASEM Primary Care Unavailable SELVIN, BASEM Primary Care Unavailable SHADY SUAREZ Referring Unavailable SELVIN, BASEM Primary Care Unavailable SIGRID FORBES Referring Unavailable SELVIN, BASEM Primary Care Unavailable CARA OJEDA Referring Unavailable SELVIN, BASEM Primary Care Unavailable KEV HSU Referring Unavailable BRANDY SANCHES Attending Unavailabl e SELVIN, BASEM Primary Care Unavailable SELVIN, BASEM Primary Care Unavailable HU HANNAH Attending Unavailable SELVIN, BASEM Primary Care Unavailable HU HANNAH Attending Unavailable SELVIN, BASEM Primary Care Unavailable BABS THOMAS Attending Unavailable SELVIN, BASEM Primary Care Unavailable KAYODE JANSEN Attending Unavailable SELVIN, BASEM Primary Care Unavailable BRANDY SANCHES Attending Unavailabl e SELVIN, BASEM Primary Care Unavailable SELVIN, BASEM Primary Care Unavailable SELVIN, BASEM Primary Care Unavailable BRANDY SANCHES Attending Unavailabl e AL, LOURDES Attending Unavailable SELVIN, BASEM Primary Care Unavailable KAYODE JANSEN Attending Unavailable SELVIN, BASEM Primary Care Unavailable SELVIN, BASEM Primary Care Unavailable CARA OJEDA Attending Unavailable SELVIN, BASEM Primary Care Unavailable SELVIN, BASEM Primary Care Unavailable EMELIA MELENDEZ MD Referring Unavailable SELVIN, BASEM Primary Care Unavailable HU HANNAH F Referring Unavailable SELVIN, BASEM Primary Care Unavailable SHADI KEV Referring Unavailable SELVIN, BASEM Primary Care Unavailable SIGRID FORBES Referring Unavailable SELVIN, BASEM Primary Care Unavailable HSU, KEV Referring Unavailable SELVIN, BASEM Primary Care Unavailable SELVIN, BASEM Primary Care Unavailable EMELIA MELENDEZ MD Referring Unavailable SELVIN, BASEM Primary Care Unavailable LUTHERAN, JAE Referring Unavailable SELVIN, BASEM Primary Care Unavailable SOPHIA MANCILLA Attending Unavailable SOPHIA MANCILLA Referring Unavailable SELVIN, BASEM Primary Care Unavailable ROBERTOSURAJ A Referring Unavailable SELVIN, BASEM Primary Care Unavailable DEWAYNE AMBRIZ A Referring Unavailable SELVIN, BASEM Primary Care Unavailable DEWAYNE AMBRIZ A Referring Unavailable SELVIN, BASEM Primary Care Unavailable BABS THOMAS Referring Unavailable BRANDY SANCHES Referring Unavailabl e SELVIN, BASEM Primary Care Unavailable BRANDY SANCHES Referring Unavailabl e SELVIN, BASEM Primary Care Unavailable SELVIN, BASEM Primary Care Unavailable SHADI KEV Referring Unavailable LUTHERAN, JAE Attending Unavailable SELVIN, BASEM Primary Care Unavailable DON QUEEN Attending Unavailable SELVIN, BASEM Primary Care Unavailable SELVIN, BASEM Primary Care Unavailable SELVIN, BASEM Primary Care Unavailable BRANDY SANCHES Attending Unavailabl e SELVIN, BASEM Primary Care Unavailable BRANDY SANCHES Attending Unavailabl e SHADI KEV Attending Unavailable SELVIN, BASEM Primary Care Unavailable SELVIN, BASEM Primary Care Unavailable SHADI KEV Attending Unavailable SELVIN, BASEM Primary Care Unavailable CARA OJEDA Attending Unavailable SELVIN, BASEM Primary Care Unavailable Nii CLARK~[phone] ROSI~[id number] MIR Attending Unavailable SELVIN, BASEM Primary Care Unavailable SELVIN, BASEM Attending Unavailable SELVIN, BASEM Primary Care Unavailable KEV HSU Attending Unavailable SELVIN, BASEM Primary Care Unavailable HU HANNAH Attending Unavailable EARNEST SHEARER Attending Unavailable SELVIN, BASEM Primary Care Unavailable SELVIN, BASEM Primary Care Unavailable SELVIN, BASEM Primary Care Unavailable CARA OJEDA Attending Unavailable SELVIN, BASEM Primary Care Unavailable OJEDACARA MENDOZA Referring Unavailable SELVIN, BASEM Primary Care Unavailable KEV HSU Attending Unavailable SMOOTH CASTILLOHIJennifer Jackson Attending Unavailshelia e ERICA ALVAREZ Consulting Unavailable SELVIN, BASEM Primary Care Unavailable WONG CASTILLO Admitting UnavailEMELIA Monahan MD Referring Unavailable SIDDHARTHA BRASHER Consulting Unavailable SAMEER TAMEZ Consulting Unavailable BRYAN BUENO Consulting Unavailable SELVIN, BASEM Primary Care Unavailable OJEDACARA WHITLEY Referring Unavailable JAE SOMMER Referring Unavailable SELVIN, BASEM Primary Care Unavailable DON QUEEN Referring Unavailable SELVIN, BASEM Primary Care Unavailable SELVIN, BASEM Primary Care Unavailable ARLYN PELAYO Referring Unavailable SELVIN, BASEM Primary Care Unavailable AL LOURDES Referring Unavailable SELVIN, BASEM Primary Care Unavailable AL LOURDES Referring Unavailable AL, LOURDES Referring Unavailable SELVIN, BASEM Primary Care Unavailable AL, LOURDES Referring Unavailable SELVIN, BASEM Primary Care Unavailable OJEDACARA WHITLEY Referring Unavailable SELVIN, BASEM Primary Care Unavailable SELVIN, BASEM Primary Care Unavailable CARA OJEDA Referring Unavailable SELVIN, BASEM Primary Care Unavailable ERICA ALVAREZ Referring Unavailable ERICA ALVAREZ Referring Unavailable SELVIN, BASEM Primary Care Unavailable SELVIN, BASEM Primary Care Unavailable OJEDACARA WHITLEY Referring Unavailable BRANDY SANCHES Attending Unavailabl e SELVIN, BASEM Primary Care Unavailable SELVIN, BASEM Primary Care Unavailable SOPHIA MANCILLA Attending Unavailable SELVIN, BASEM Primary Care Unavailable SHADY SUAREZ Attending Unavailable SELVIN, BASEM N Primary Care Unavailable MD BELLO ALARCON Attending Unavailable SELVIN, BASEM N Primary Care Unavailable DO DEYSI NOLASCO JR Attending Unavailable DO SANTANA ZAMBRANO Attending Unavailable SELVIN, BASEM N Primary Care Unavailable DO DEBORA ACOSTA Attending Unavailabl e SELVIN, BASEM N Primary Care Unavailable WALKER JR, DO DEYSI Attending Unavailable SELVIN, BASEM N Primary Care Unavailable DO DEBORA ACOSTA Attending Unavailabl e SELVIN, BASEM N Primary Care Unavailable WALKER JR, DO DEYSI Attending Unavailable SELVIN, BASEM N Primary Care Unavailable DO EDDIE BRIDGES Attending Unavailable SELVIN, BASEM N Primary Care Unavailable SELVIN, BASEM N Primary Care Unavailable DO DEBORA ACOSTA Attending UnavailMD BELLO Don Attending Unavailable SELVIN, BASEM N Primary Care Unavailable SELVIN, BASEM N Primary Care Unavailable WALKER JR, DO DEYSI Attending Unavailable WALKER JR, DO DEYSI Attending Unavailable SELVIN, BASEM N Primary Care Unavailable SELVIN, BASEM N Primary Care Unavailable WALKER JR, DO DEYSI Attending Unavailable Medications Current Medications Medication Drug Class(es) Dates Sig (Normalized) Sig (Original) acetaminophen 500 mg oral tablet (20 sources) Start: 10-21-2024 take 4000 mg by mouth every twenty-four hours 1,000 mg, Oral, ONCE, 1 dose, On Sat10/21/24 at 1330, Maximum dose of acetaminophen is 4000 mg from all sources in 24 hours. Start: 10-20-2024 End: 10-20-2024 650 mg, Oral, Once, On Sat at 1340, For 1 dose, Maximum dose of acetaminophen is 4000 mg from all sources in 24 hours. Start: 10-13-2024 take 4000 mg by mout h every twenty-four hours 650 mg, Oral, ONCE, 1 dose, On Sat10/13/24 at 1330, Maximum dose of acetaminophen is 4000 mg from all sources in 24 hours. Start: 10-10-2024 End: 10-10-2024 take 1 dose by mouth once 1,000 mg, Oral, ONCE, 1 dose , On Sat10/10/24 at 0954 Start: 08-24-2024 take 4000 mg by mout h every twenty-four hours 1,000 mg, Oral, ONCE, 1 dose, On Sat08/24/24 at 1700, Maximum dose of acetaminophen is 4000 mg from all sources in 24 hours. Start: 06-03-2024 take 1 dose by mouth once 650 mg, Oral, Once, 1 dose, On Sat06/03/24 at 1200 Start: 05-25-2024 take 4000 mg by mout h every twenty-four hours 650 mg, Oral, ONCE, 1 dose, On Sat05/25/24 at 1130, Maximum dose of acetaminophen is 4000 mg from all sources in 24 hours. Start: 04-29-2024 End: 04-29-2024 1,000 mg, Oral, Once, On Sat04/29/24 at 0420, For 1 dose, Maximum dose of acetaminophen is 4000 mg from all sources in 24 hours. Start: 03-08-2024 acetaminophen (TYLENOL) tablet 650 mg Start: 11-20-2023 End: 07-07-2024 take 1 tablet by mouth every six hours as needed for pain ACETAMINOPHEN ([id number] M1) 500 MG TAB Discontinued 500 MG [...] Day June 02, 2023 12:00am Start: 05-06-2023 End: 08-24-2024 take 1 tablet by mouth four times daily as needed for pain acetaminophen (TYLENOL) 500 MG tablet Take 1 tablet by mouth 4 times daily as needed for Pain 120 tablet 5 08/24/2024 Active Start: 10-31-2022 End: 10-31-2022 acetaminophen (TYLENOL) tabl et Start: 06-30-2020 acetaminophen (TYLENOL) tablet 650 mg Acetaminophen (T YLENOL [id number] MG) 500 MG Tablet Active 1000 MG [...] every six hours as needed for headache wtyqmai-hcqdhbepfxzim-rgngdcxw (EXCEDRIN MIGRAINE) 250-250-65 MG per tablet Take 1 tablet by mouth every 6 hours as needed for Headaches 0 Active acetaminophen 325 mg / oxyCODONE hydrochloride 5 mg oral tablet (20 sources) Opioid Agonist Sta rt: End : take 1 tablet by mouth every six hours as needed for pain oxyCODONE-acetaminophen (Percocet) 5-325 MG tablet Indications: Rotator cuff tear arthropathy, left Take 1 tablet by mouth every 6 hours as needed for severe pain (7-10) for up to 3 days. 8 tablet 10/20/2024 10/23/2024 Active Start: 10-06-2024 End: 10-06-2024 take 1 tablet by mouth every twenty-four hours 1 tablet, Oral, ONCE, 1 dose, On Sat10/06/24 at 1030, Maximum dose of acetaminophen is 4000 mg from all sources in 24 hours. Start: 09-21-2024 End: 09-21-2024 take 1 tablet by mouth every twenty-four hours 1 tablet, Oral, ONCE, 1 dose, On Sat09/21/24 at 1400, Maximum dose of acetaminophen is 4000 mg from all sources in 24 hours. Start: 09-21-2024 End: 09-24-2024 oxyCODONE-acetaminophen (PER COCET) 5-325 MG per tablet Indications: Other chronic pain Take 1 tablet by mouth every 6 hours as needed for Pain for up to 3 days. Max Daily Amount: 4 tablets 12 tablet 09/21/2024 09/24/2024 Active Start: 09-12-2024 End: 09-19-2024 oxyCODONE-acetaminophen (PER COCET) 5-325 MG per tablet Indications: Closed fracture of nasal bone, initial encounter Take 1 tablet by mouth every 6 hours as needed for Pain for up to 7 days. Max Daily Amount: 4 tablets 12 tablet 09/12/2024 09/19/2024 Active Start: 09-11-2024 End: 09-11-2024 take 1 tablet by mouth every twenty-four hours 2 tablet, Oral, ONCE, 1 dose, On Sat09/11/24 at 2345, Maximum dose of acetaminophen is 4000 mg from all sources in 24 hours. Start: 09-10-2024 End: 09-10-2024 take 1 tablet by mouth every twenty-four hours 1 tablet, Oral, ONCE, 1 dose, On Alicia 09/10/24 at 0845, Maximum dose of acetaminophen is 4000 mg from all sources in 24 hours. Start: 09-04-2024 End: 09-04-2024 take 1 tablet by mouth every twenty-four hours 1 tablet, Oral, ONCE, 1 dose, On Sat09/04/24 at 1130, Maximum dose of acetaminophen is 4000 mg from all sources in 24 hours. Start: 08-29-2024 End: 09-05-2024 oxyCODONE-acetaminophen (PER COCET) 5-325 MG per tablet Indications: Closed fracture of nasal bone, initial encounter Take 1 tablet by mouth every 6 hours as needed for Pain for up to 7 days. Max Daily Amount: 4 tablets 12 tablet 08/29/2024 09/05/2024 Active Start: 08-29-2024 End: 08-29-2024 take 1 tablet by mouth every twenty-four hours 2 tablet, Oral, ONCE, 1 dose, On 08/29/24 at 0445, Maximum dose of acetaminophen is 4000 mg from all sources in 24 hours. Start: 08-01-2024 End: 08-01-2024 take 1 tablet [...] all sources in 24 hours. Start: 03-08-2024 oxyCODONE-acet aminophen (PERCOCET) 5-325 MG per tablet 1 tablet Start: 03-08-2024 End: 03-08-2024 take 1 tablet by mouth every twenty-four hours 1 tablet, Oral, ONCE, 1 dose, On 03/08/24 at 0100, Maximum dose of acetaminophen is 4000 mg from all sources in 24 hours. Start: 01-24-2024 End: 08-21-2024 oxyCODONE-acetaminophen (PER COCET) 5-325 MG per tablet [...] tablets 4 tablet 03/13/2024 03/17/2024 Active Start: 01-06-2024 End: 01-06-2024 1 tablet, Oral, Once, On 01/06/24 at 1945, For 1 dose, Maximum dose of acetaminophen is 4000 mg from all sources in 24 hours. Start: 01-06-2024 End: 01-11-2024 take 1 tablet by mouth every six hours as needed for pain oxyCODONE-acetaminophen (Percocet) 5-325 MG tablet Indications: Left shoulder pain, unspecified chronicity Take 1 tablet by mouth every 6 hours as needed for severe pain (7-10) for up to 5 days. 5 tablet 01/06/2024 01/11/2024 Active Start: 12-29-2023 End: 01-01-2024 oxyCODONE-acetaminophen (PER COCET) [...] NEEDED as needed for PAIN 7-10 2 November 10, 2023 4:30pm November 20, 2023 7:03am Start: 10-27-2023 End: 01-24-2024 Oxycodone-Acetaminophen (Per cocet) 10-325 mg tablet Discontinued 1 {tbl} PO EVERY 6 HOURS as needed for pain 12 3 October 27, 2023 January 24, 2024 6:01pm Start: 10-11-2023 End: 11-20-2023 Oxycodone W/ Acetaminophen [...] 5-325 MG per tablet 2 tablet Start: 08-10-2023 End: 08-10-2023 oxyCODONE-acetaminophen (Per cocet) 5-325 MG per tablet 2 tablet Start: 07-12-2023 End: 10-27-2023 take 1 tablet by mouth every six hours as needed for pain Percocet 5 mg-325 mg oral tablet Dose = 1 tab(s), Oral, q6h, PRN Pain, X 3 day(s), # 12 tab(s), 0 Refill(s), Back pain, 62.8 Start Date: 08/15/23 Stop Date: 08/18/23 Status: Ordered Start: 05-24-2023 End: 05-24-2023 oxyCODONE-acetaminophen (Per cocet) 5-325 MG per tablet 2 tablet Start: 05-06-2023 End: 05-06-2023 oxyCODONE-acetaminophen (PER COCET) 5-325 MG per tablet 1 tablet Start: 03-05-2023 End: 03-05-2023 take 1 tablet by mouth every six hours as needed for pain oxyCODONE-acetaminophen (Percocet) 5-325 MG tablet Indications: Chest wall pain Take 1 tablet by mouth every 6 hours as needed for severe pain (7-10) for up to 2 days. 8 tablet 0 03/05/2023 03/05/2023 Discontinued (Entered in error) Start: 12-04-2022 End: 12-04-2022 oxyCODONE-acetaminophen (Per cocet) 5-325 mg per tablet 1 tablet Start: 11-15-2022 End: 11-15-2022 oxyCODONE-acetaminophen (Per cocet) 5-325 MG per tablet 1 tablet Start: 11-09-2022 End: 11-09-2022 oxyCODONE-acetaminophen (Per cocet) 5-325 MG per tablet 1 tablet Start: 09-16-2022 End: 09-16-2022 oxyCODONE-acetaminophen (Per cocet) 5-325 MG per tablet 1 tablet Start: 09-13-2022 End: 09-13-2022 oxyCODONE-acetaminophen (Per cocet) 5-325 MG per tablet 1 tablet Start: 09-13-2022 End: 09-15-2022 take 1 tablet by mouth every six hours as needed for pain oxyCODONE-acetaminophen (Percocet) 5-325 MG tablet Indications: Acute exacerbation of chronic low back pain Take 1 tablet by mouth every 6 hours as needed for severe pain (7-10) for up to 2 days. 8 tablet 0 09/13/2022 09/15/2022 Active Start: 09-04-2022 End: 09-04-2022 oxyCODONE-acetaminophen (Per cocet) 5-325 MG per tablet 1 tablet Start: 08-17-2022 End: 08-17-2022 oxyCODONE-acetaminophen (PER COCET) 5-325 MG per tablet 1 tablet Start: 08-04-2022 End: 08-06-2022 take 1 tablet by mouth every six hours oxycodone-acetaminophen 5 mg-325 mg oral tablet ; 1 tab(s) orally every 6 hours x 3 days Quantity: 12 Refills: 0 Ordered: 04-Aug-2022 Eugene Thomas Start: 04-Aug-2022 End: 06-Aug-2022 Generic Substitution Allowed [...] prescribed may cause serious breathing problems. albuterol sulfate HFA 108 (90 Base) MCG/ACT [...] mg / clavulanate 125 mg oral tablet (7 sources) Penicillin-class Antibacterial Start: 09-11-19 End: 09-18-19 take 1 tablet by mouth twice daily amoxicillin-clavula jyotsna (AUGMENTIN) 875-125 MG per tablet Take 1 tablet by mouth 2 times daily for 7 days 14 tablet 09/10/2024 09/12/2024 Discontinued (LIST CLEANUP) Start: 08-29-2024 End: 09-08-2024 take 1 tablet by mouth twice daily amoxicillin-clavulanate (AUGMENTIN) 875-125 MG per tablet Take 1 tablet by mouth 2 times daily for 10 days 20 tablet 08/29/2024 09/08/2024 Active Start: 08-29-2024 End: 08-29-2024 1 tablet, Oral, ONCE, 1 dose , On 08/29/24 at 0430, Antimicrobial Indications: Other, Other Abx Indication: nasal Start: 02-28-2024 End: 03-04-2024 take 1 tablet by mouth twice daily amoxicillin-clavulanate (AUGMENTIN) 875-125 MG per tablet Take [...] days 5 tablet 0 07/29/2019 08/03/2019 Active celecoxib 100 mg oral capsule (17 sources) Nonsteroidal Anti-inflammatory Drug Start: 10-06-2024 take 1 capsule by mouth twice daily celecoxib (CELEBREX) 100 MG capsule Take 1 capsule by mouth 2 times daily 60 capsule 10/06/2024 Active Start: 03-07-2022 End: 03-25-2024 take 1 capsule by mouth once daily Celecoxib 200 mg capsule Discontinued 200 MG PO Every Day July 31, 2022 12:00am March 25, 2024 10:16am cyclobenzaprine hydrochloride 10 mg oral tablet (20 sources) Muscle Relaxant Start: 08-20-2024 take 1 tablet by mouth three times daily as needed for muscle spasms cyclobenzaprine (Flexeril) 10 mg tablet Indications: Acute on chronic back pain Take 1 tablet (10 mg) by mouth 3 times a day as needed for muscle spasms. 17 tablet 08/20/2024 11:59 AM EDT 08/20/2024 Active Start: 06-10-2024 End: 06-20-2024 take [...] needed for muscle spasms. 17 tablet 08/20/2024 11:59 AM EDT 08/20/2024 Active Start: 09-02-2023 End: 09-02-2023 cyclobenzaprine (FLEXERIL) t ablet 10 mg Start: 07-09-2023 End: 07-09-2023 cyclobenzaprine (FLEXERIL) t ablet 5 mg Start: 06-15-2023 take 10 mg by mouth three times daily as needed for muscle spasms Cyclobenzaprine [Flexeril] 10 MG PO THREE TIMES A DAY PRN For Muscle Spasm June 15, 2023 Active AMANDA number [id number] Start: 06-15-2023 take 10 mg by mouth three times daily as needed for muscle spasms Cyclobenzaprine 10 MG PO THREE TIMES A DAY PRN For Muscle Spasm June 15, 2023 Active AMANDA number [id number] Start: 06-15-2023 End: 06-23-2024 take 1 tablet by mouth three times daily Cyclobenzaprine (Flexeril) 10 MG Tab Active 10 MG PO THREE TIMES A DAY June 15, 2023 12:00am AMANDA number [id number] Start: 04-04-2023 End: 09-05-2023 take 1 tablet by mouth twice daily as needed for muscle spasms Cyclobenzaprine HCl (SAODNHTRLELCZVT07 M1) 10 MG TAB Discontinued 10 MG [...] 20 mg/ml oral solution (1 source) Uncompetitive T-awkwgu-Z-aspartate Receptor Antagonist, Sigma-1 Agonist Start: take 10 mL by mouth three times daily as needed for cough guaiFENesin-dextro methorphan (ROBITUSSIN DM) 100-10 MG/5ML syrup Indications: Bronchitis , Acute sinusitis, recurrence not specified, unspecified location Take 10 mLs by mouth 3 times daily as needed for Cough 240 mL 2 07/29/2019 Active diclofenac sodium 0.01 mg/mg topical gel (20 sources) Nonsteroidal Anti-inflammatory Drug Start: diclofenac (Voltaren) 1 % GEL topical gel [...] diclofenac sod ium (VOLTAREN) 1 % GEL fluticasone propionate 0.05 mg/actuat metered dose nasal spray (12 sources) Corticosteroid Start: 10-27-2023 Fluticasone Pr opionate 50 mcg/actuation spray,suspension Active 2 NMA INTRANASAL DAILY as needed for congestion October 27, 2023 12:00am Start: 03-07-2022 End: 06-23-2022 fluticasone (FLONASE) 50 MCG /ACT nasal spray Indications: Acute bacterial sinusitis , [...] route daily 1 Bottle 3 11/17/2019 Active 30 actuat fluticasone furoate 0.1 mg/actuat / umeclidinium 0.0625 mg/actuat / vilanterol 0.025 mg/actuat dry powder inhaler (4 sources) Anticholinergic, Corticosteroid, beta2-Adrenergic Agonist Start: 12-03-2018 take 1 puff(s) by inhalation once daily vjfytglzrht-pgwhcrobq-gmbzlg (TRELEGY ELLIPTA) 100-62.5-25 MCG/INH AEPB Indications: Cough Inhale 1 puff into the lungs daily 1 each 0 12/03/2018 Active Fluticasone-Um eclidin-Vilant er (12 sources) Start: 09-23-2024 Fumapeolhdk-Hjurzzxwv-Mtfyvu e r (Trelegy Ellipta) 200-62.5-25 mcg blister with device Active 1 INH INH Every Day 60 5 September 23, 2024 3:18pm Start: 05-20-2024 End: 09-23-2024 Alswxuzliep-Eztgjnkru-Enotce er (Trelegy Ellipta) 200-62.5-25 mcg blister with device Discontinued 1 INH INH Every Day 60 2 May 20, 2024 12:10pm September 23, 2024 3:21pm Start: 05-20-2024 Fluticasone-Um eclidin-Vilanter (Trelegy Ellipta) 200-62.5-25 mcg blister with device Active 1 INH INH Every Day 60 May 20, 2024 12:10pm Start: 08-08-2022 End: 11-25-2022 Ddqaptmmevn-Emcqaelbn-Vcizbm er (Trelegy Ellipta) 200-62.5-25 mcg blister with device Discontinued EACH IH Daily August 07, 2022 11:00pm November 25, 2022 9:56am Start: 08-08-2022 End: 11-25-2022 Jvmabmzmoyj-Xjztfhvqb-Vcukeo er (Trelegy Ellipta) 200-62.5-25 mcg blister with device Discontinued EACH IH Daily August 08, 2022 12:00am November 25, 2022 10:56am Start: 07-31-2022 End: 05-20-2024 Ofzzohyvben-Ryvuqlaja-Anvmao er (Trelegy Ellipta) 200-62.5-25 mcg blister with [...] INH Every Day July 31, 2022 12:00am gmoeissxabj-kcpkcssir-lwfrxv er (TRELEGY ELLIPTA) 200-62.5-25 mcg inhalation powder (2 sources) Start: 03-02-2024 take 1 puff(s) by inhalation once daily atzdttdbnnp-ihszmwkxn-krjseivk (TRELEGY ELLIPTA) 200-62.5-25 mcg inhalation powder Inhale 1 Puff as instructed once daily. 03/02/2024 Active rzfhrwwdsne-hyoehbeff-juchrf er (TRELEGY-ELLIPTA) 200-62.5-25 mcg blister with device (20 sources) Start: 12-04-2022 take 1 puff(s) by inhalation once daily dakxdjskffq-xggxlkift-plkyiyfp (TRELEGY-ELLIPTA) 200-62.5-25 mcg blister with device Indications: Medication refill Inhale 1 puff once daily. 60 each 12/04/2022 Active Start: 12-04-2022 take 1 puff(s) by inhalation once daily qdzeqycwsfq-qkbvxbogq-rliggryf (TRELEGY-ELLIPTA) 200-62.5-25 mcg blister with device Indications: Medication refill Inhale 1 puff once daily. 60 each 0 12/04/2022 Active Rukvhynzqov-Ckcecdisj-Ezrzjq er [Fluticasone Fur. 200 Mcg-Umeclid 62.5 Mcg-Vilant 25 Mcg Inhalat.Powder] (1 source) Start: 10-27-2023 Dyoozdwtbzu-Ncihlmwpj-Ygcksm er [Fluticasone Fur. 200 Mcg-Umeclid 62.5 Mcg-Vilant 25 Mcg Inhalat.Powder] (Fluticasone Fur. 200 Mcg-Umeclid 62.5 Mcg-Vilant ) 200-62.5-25 mcg blister with device Active 1 NMA INHALATION DAILY October 27, 2023 12:00am Wakeqxbohnq-Tjzjtvzemleh-Ieh an (11 sources) Fluticasone-Umec lidinium-Vilan (TRELEGY ELLIPTA1 AE1) 1 AER Aero Pow Br Act Active 1 AER IN DAILY 60 actuat formoterol fumarat e 0.005 mg/actuat / mometasone furoate 0.1 mg/actuat metered dose inhaler (1 source) Cortic ostero id, beta2- Adrene rgic Agonis t Start: 09-11-2021 take 1 puff(s ) by inhala tion twice daily mometasone-formoterol (DULERA) 100-5 MCG/ACT inhaler Indications: Bronchitis Inhale 1 puff into the lungs 2 times daily 1 each 3 09/11/2021 Active gabapentin 300 mg oral riley mcclellan (20 sources) Anti-e pilept ic Agent Start: 07-12-2024 take 1 capsul e by mouth once 300 mg, oral, Once, On 07/12/24 at 0340, For 1 dose, Capsules may be opened and sprinkled on food (eg, applesauce, orange juice, pudding Start: 03-08-2024 take 600 mg by mouth three times daily 600 mg, Oral, 3 TIMES DAILY, First dose on 03/08/24 at 0900, Until Discontinued Start: 10-27-2023 End: 08-21-2024 take 1 tablet by mouth three times daily gabapentin (NEURONTIN) 600 MG tablet Take 1 tablet by mouth 3 times daily for 12 days. 36 tablet 03/17/2024 05/15/2024 Discontinued (LIST CLEANUP) Start: 06-02-2023 take 300 mg by mouth three times daily Gabapentin Active 300 MG PO 3 Times a Day June 02, 2023 12:00am Start: 04-04-2023 End: 08-01-2023 take 1 capsule by mouth every twelve hours Gabapentin ([id number] MG) 100 MG CAP Discontinued 100 MG [...] needed for Congestion 07/01/2024 Discontinued (LIST CLEANUP) hydrOXYzine pamoate 25 mg oral capsule (20 sources) Antihistamine Start: 09-21-2024 take 1 capsule by mouth twice daily as needed for anxiety hydrOXYzine pamoate (VISTARIL) 25 MG capsule Take 1 capsule by mouth 2 times daily as needed for Anxiety 30 capsule 09/21/2024 Active Start: 03-13-2024 End: 09-23-2024 take 1 tablet by mouth every eight hours as needed hydrOXYzine HCl (ATARAX) 25 MG tablet Take 1 tablet by mouth every 8 hours as needed for Itching 9 tablet 06/10/2024 06/10/2024 Discontinued (LIST CLEANUP) Start: 10-27-2023 End: 08-21-2024 take 1 tablet by mouth once daily as needed for anxiety Hydroxyzine Hcl 25 mg tablet Discontinued 25 mg PO DAILY as needed for anxiety October 27, 2023 12:00am August 21, 2024 3:34am Start: 04-25-2023 End: 05-09-2023 take 1 capsule by mouth three times daily as needed hydrOXYzine pamoate (VISTARIL) 25 MG capsule Take 1-2 capsules by mouth 3 times daily as needed for Anxiety 30 capsule 0 04/25/2023 05/09/2023 Active take 1 tablet by vivi th twice daily Hydroxyzine Hcl (Hydroxyz HCl50 MG) 50 MG TAB Active 50 MG PO TWICE A DAY End: 06-23-2024 ipratropium bromide 0.2 mg/ml inhalation solution (1 source) Anticholinergic Start: 06-30-2020 ipratropium (ATROVENT) 0.02 % nebulizer solution 0.5 mg iv contrast (will be provided with radiology test) (1 source) Start: 10-22-2022 End: 10-23-2022 iv contrast (will be provided with radiology [...] in the MR contrast administration guidelines link lamoTRIgine 150 mg oral tablet (20 sources) Mood Stabilizer, Anti-epileptic Agent Start: 03-08-2024 take 150 mg by mouth once daily 150 mg, Oral, DAILY, First dose (after last reorder) on 03/08/24 at 1015, Until Discontinued Start: 09-25-2022 take 150 mg by mouth once vicente y Lamotrigine Active 150 MG PO DAILY September 25, 2022 12:00am Start: 07-31-2022 End: 09-23-2024 take 1 tablet by mouth every twelve hours Lamotrigine 150 mg tablet Active 150 MG PO EVERY 12 HOURS 60 5 September 23, 2024 3:19pm Start: 03-07-2022 End: 03-09-2024 take 1 tablet [...] tablet 1 05/20/2020 Active Start: 05-11-2019 take 1 tablet by vivi th once daily Lamotrigine 150 mg tablet Active 150 mg PO DAILY October 27, 2023 12:00am Start: 11-02-2018 take 1 tablet by [...] tablet 0 11/19/2014 10/24/2022 Discontinued (Dosage adjustment) lamoTRIgine (Ritter ICtal) 25 MG tablet Take 150 mg by mouth daily. Active Comment on above: to be increased to 3 tabs bid Take 1 tablet by vivi th twice daily. lidocaine 0.04 mg/mg medicated patch (20 sources) Antiarrhythmic, Amide Local Anesthetic Start: 10-27-2024 1 patch, TransDERmal, Administer over 12 Hours, Once, On Sat10/27/24 at 1615, For 1 dose, Apply patch to lower back pain, rt flank. The automatic gluing machine operator's recommendations for the number of patches that can be applied within a 24-hour period varies from 1 to 4 times daily and the duration of application varies from 8 to 24 hours; refer to the automatic gluing machine operator's labeling for product-specific recommendations. Start: 10-21-2024 1 patch, Trans DERmal, Administer over 12 Hours, ONCE, On Sat10/21/24 at 1200, For 1 dose, Apply patch to lower back. The automatic gluing machine operator's recommendations for the number of patches that can be applied within a 24-hour period varies from 1 to 4 times daily and the duration of application varies from 8 to 24 hours; refer to the automatic gluing machine operator's labeling for product-specific recommendations. Start: 10-20-2024 End: 10-20-2024 apply 1 dose transdermal route once daily, then apply 1 dose transdermal route every twelve hours 1 patch, TransDERmal, Administer over 12 Hours, Daily, First dose on Sat10/20/24 at 1445, Apply patch to Left shoulder. Patch may remain in place for up to 12 hours in any 24 hour period. Start: 10-10-2024 apply 1 dose transde rmal route every twenty-four hours 1 Patch, Transdermal, EVERY 24 HOURS, First dose on 10/10/24 at 0954, Until Discontinued Start: 09-27-2024 1 patch, Trans DERmal, Administer over 12 Hours, Once, On 09/27/24 at 0115, For 1 dose, Apply patch to left elbow. The automatic gluing machine operator's recommendations for the number of patches that can be applied within a 24-hour period varies from 1 to 4 times daily and the duration of application varies from 8 to 24 hours; refer to the automatic gluing machine operator's labeling for product-specific recommendations. Start: 09-11-2024 End: 09-11-2024 take 15 mL by mouth every three hours as needed for pain lidocaine viscous hcl (XYLOCAINE) 2 % SOLN solution Take 15 mLs by mouth every 3 hours as needed for Dental Pain 200 mL 09/11/2024 Active Start: 08-20-2024 apply 1 dose transde rmal route every [...] dose, Apply patch to right hip. The automatic gluing machine operator's recommendations for the number of patches that can be applied within a 24-hour period varies from 1 to 4 times daily and the duration of application varies from 8 to 24 hours; refer to the automatic gluing machine operator's labeling for product-specific recommendations. Start: 07-01-2024 End: 07-31-2024 apply 1 dose transdermal route once daily lidocaine 4 % external patch Place 1 patch onto the skin daily 30 patch 07/01/2024 07/31/2024 Active Start: 07-01-2024 1 patch, Trans DERmal, Administer over 12 Hours, ONCE, On Sat07/01/24 at 0830, For 1 dose, Apply patch to low back. The automatic gluing machine operator's recommendations for the number of patches that can be applied within a 24-hour period varies from 1 to 4 times daily and the duration of application varies from 8 to 24 hours; refer to the automatic gluing machine operator's labeling for product-specific recommendations. Start: 04-29-2024 End: 04-29-2024 apply 1 dose transdermal route once daily, then apply 1 dose transdermal route every twelve hours 1 patch, TransDERmal, Administer over 12 Hours, Daily, First dose on Sat04/29/24 at 0900, Apply patch to back. Patch may remain in place for up to 12 hours in any 24 hour period. Start: 04-29-2024 End: 04-29-2024 apply 1 dose transdermal route once daily, then apply 1 dose transdermal route every twelve hours 1 patch, TransDERmal, Administer over 12 Hours, Daily, First dose on Sat04/29/24 at 0900, Apply patch to back. Patch may remain in place for up to 12 hours in any 24 hour period. Start: 04-20-2024 1 patch, Trans DERmal, Administer over 12 Hours, ONCE, On Sat04/20/24 at 1545, For 1 dose, Apply patch to shoulder l The automatic gluing machine operator's recommendations for the number of patches that can be applied within a 24-hour period varies from 1 to 4 times daily and the duration of application varies from 8 to 24 hours; refer to the automatic gluing machine operator's labeling for product-specific recommendations. Start: 04-20-2024 End: [...] patch 03/18/2024 04/17/2024 Active Start: 03-13-2024 End: 09-23-2024 apply 1 dose transdermal route once daily Lidocaine 5 % adhesive patch,medicated Active 0 .ROUTE .COMPLEX 30 5 September 23, 2024 3:19pm APPLY 1 PATCH TOPICALLY TO THE SKIN [...] Patch 0 10/31/2022 Active Start: 09-05-2022 End: 08-08-2023 LIDOCAINE PAIN RELIEF 4 % pa tch Start: 09-04-2022 End: 10-02-2023 lidocaine 4 % external patch Place 1 patch onto the skin every [address] 1 patch onto the skin daily 12 hours on, 12 hours off. 30 patch 0 09/02/2023 10/02/2023 Active Start: 09-04-2022 End: 09-09-2022 apply 1 dose transdermal route once daily, then apply 1 dose transdermal route every twelve hours lidocaine (Lidoderm) 5 % patch Apply 1 patch topically daily for 5 days. Remove & discard patch within 12 hours or as directed by . 5 patch 0 09/04/2022 09/09/2022 Start: 07-31-2022 End: 03-18-2024 apply 1 dose [...] patch prior to applying a new patch. magnesium gluconate 250 mg oral tablet (10 sources) Start: 09-15-2024 take 1 tablet by mouth once daily Magnesium Gluconate 250 MG TABS Indications: Injury of head, initial encounter , Concussion without loss of consciousness, initial encounter Take 250 mg by mouth daily 30 tablet 1 09/15/2024 Active 50 ml magnesium sulfate 40 mg/ml injection (1 source) Start: 03-08-2024 meloxicam 7.5 mg oral tablet (20 sources) Nonsteroidal Anti-inflammatory Drug Start: 03-05-2023 End: 03-15-2023 take 1 tablet by mouth once daily meloxicam (Mobic) 15 MG tablet Take 1 tablet (15 mg) by mouth daily for 10 days. 10 tablet 0 03/05/2023 03/15/2023 Active Start: 09-13-2022 End: 08-20-2023 take 1 tablet by mouth once meloxicam (MOBIC) 7.5 mg t ablet Take 1 tablet by mouth every afternoon. [...] tablet 0 01/08/2019 02/02/2019 Discontinued (LIST CLEANUP) End: 08-24-2024 Meloxicam 10 MG CAPS Take by mouth Unsure of dose 08/24/2024 Discontinued (LIST CLEANUP) MELOXICAM PO Kevin e by mouth 0 Active metaxalone 800 mg oral table t (1 source) Start: 05-16-2023 End: 05-21-2023 Skelaxin 800 mg oral tablet Dose : 800 mg = 1 tab(s), Oral, TID, X 5 day(s), # 15 tab(s), 0 Refill(s), 05/21/23 5:55:00 AM EDT Start Date: 05/16/23 Stop Date: 05/21/23 Status: Ordered methylPREDNISolone 4 mg oral tablet (20 sources) [...] mouth daily 0 09/02/2023 Discontinued (LIST CLEANUP) 2 ml metoclopramide 5 mg/ml prefilled syringe (20 sources) Dopamine-2 Receptor Antagonist Start: 09-04-2024 10 mg, IntraVENous, ONCE, 1 dose, On Sat09/04/24 at 1100, IV Push: Max 10 mg over 1-2 minutes. Start: 08-06-2024 take 1 tablet by vivi th three [...] June 02, 2023 12:00am Start: 04-14-2023 End: 09-23-2024 take 1 tablet by mouth every twelve [...] swelling. Quantity: 20 Refills: 0 Ordered: 04-Aug-2022 Eugene Thomas Start: 04-Aug-2022 Generic Substitution Allowed Comments: Check with your doctor before becoming .May cause drowsiness or dizziness.Obtain medical advice before taking any non-prescription drugs as some may affect the action of this medication.Take with food or milk. Start: 06-25-2022 End: 05-22-2024 take 1 tablet by mouth twice daily as needed naproxen (NAPROSYN) 500 MG tablet Take 1 Tablet by mouth 2 times daily as needed. 30 Tablet 10/31/2022 Active End: 08-01-2023 take 1 tablet by mouth every twelve hours Naproxen Sodium ([id number] MG) 220 MG TAB Discontinued 220 MG [...] daily. ondansetron 4 mg disintegrating oral tablet (20 sources) Serotonin-3 Receptor Antagonist Start: 07-02-19 End: 08-25-19 take 1 tablet by mouth three times daily as needed for nausea ondansetron (ZOFRAN-ODT) 4 MG disintegrating tablet Take 1 tablet by mouth 3 times daily as needed for Nausea or Vomiting 21 tablet 07/01/2024 Active Start: 05-02-2024 End: 05-02-2024 4 mg, IntraVENous, ONCE, 1 d ose, On 05/02/24 at 0530 Start: 04-29-2024 End: 04-29-2024 take 4 mg by mouth once 4 mg, Oral, Once, On 04/05 at 0420, For 1 dose Start: 04-20-2024 End: 04-20-2024 take 1 dose by mouth once 4 mg, Oral, ONCE, 1 dose, On 2/17/25 at 1545 Start: 04-20-2024 End: 08-24-2024 take 1 tablet by mouth every eight hours as needed ondansetron (ZOFRAN) 4 MG tablet Take 1 tablet by mouth every 8 hours as needed 04/20/2024 08/24/2024 Discontinued (LIST CLEANUP) Start: 03-08-2024 4 mg, IntraVEN ous, EVERY [...] M) extended release tablet 40 mEq predniSONE 20 mg oral tablet (20 sources) Start: 10-06-2024 End: 10-11-2024 take 2 tablets by mouth once daily predniSONE (DELTASONE) 20 MG tablet Take 2 tablets by mouth daily for 5 days 10 tablet 10/06/2024 10/11/2024 Active Start: 10-06-2024 End: 10-06-2024 take 1 dose by mouth once 40 mg, Oral, ONCE, 1 dose, O n 10/06/24 at 1030 Start: 09-10-2024 End: 09-10-2024 take 1 dose by mouth once 60 mg, Oral, ONCE, 1 dose, O n Alicia 09/10/24 at 0845 Start: 08-01-2024 End: 08-06-2024 take 1 tablet [...] or milk. Promethazine (1 source) Phenothiazine Start: 07-01-19 21 promethazine (PHENERGAN) tablet 12.5 mg riboflavin 400 mg oral tablet (10 sources) Start: 09-16-19 25 take 1 tablet by mouth once daily Riboflavin 400 MG TABS Indications: Injury of head, initial encounter , Concussion without loss of consciousness, initial encounter Take 400 mg by mouth daily 30 tablet 1 09/15/2024 Active rizatriptan 10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 Auto Differentialon 10-27-2024 Basophils (Bld) [#/Vol] 0.02 10*3/uL [facility] Basophils/100 WBC (Bld) 0 % 0.0 - 2.0 % [facility] Eosinophils (Bld) [#/Vol] 0.20 10*3/uL [facility] Eosinophils/100 WBC (Bld) 3 % 0 - 6 % [facility] Erythrocyte distribution width (RBC) [Ratio] 12.9 % 11.5 - 15.0 % [facility] Hematocrit (Bld) [Volume fraction] 35.0 % 34.0 - 48.0 % [facility] Hemoglobin (Bld) [Mass/Vol] 11.9 g/dL 11.5 - 15.5 g/dL [facility] Immature granulocytes (Bld) [#/Vol] 0.05 10*3/uL [facility] Immature granulocytes/100 WBC (Bld) 1 % 0.0 - 5.0 % [facility] Lymphocytes/100 WBC (Bld) 37 % 20.0 - 42.0 % [facility] Lymphocytes/100 WBC (Bld) 2.33 % [facility] MCH (RBC) [Entitic mass] 31.5 pg 26.0 - 35.0 pg [facility] MCHC (RBC) [Mass/Vol] 34.0 g/dL 32.0 - 34.5 g/dL [facility] MCV (RBC) [Entitic vol] 92.6 fL 80.0 - 99.9 fL [facility] Monocytes/100 WBC (Bld) 9 % 2.0 - 12.0 % [facility] Monocytes/100 WBC (Bld) 0.55 % [facility] Neutrophils/100 WBC (Bld) 50 % 43.0 - 80.0 % [facility] Platelet mean volume (Bld) [Entitic vol] 8.1 fL 7.0 - 12.0 fL [facility] Platelets (Bld) [#/Vol] 314 10*3/uL [facility] RBC (Bld) [#/Vol] 3.78 10*6/uL 3.50 - 5.5 0 m/uL [facility] Segmented neutrophils/100 WBC (Bld) 3.10 % [facility] WBC other (Bld) [#/Vol] 6.3 [facility] CBC with Diffon 10-27-2024 Abs. Basophil 0.02 k/uL Normal 0.00-0.20 [facility] Comment on above: Performed By: #### C ADILENE GALLEGO TROPI #### [place] [address] [employer] Worker: Darci Castle MD Abs.Imm.Granulocyte 0.05 k/uL Normal 0.00-0.58 [facility] Comment on above: Performed By: #### Maximino GALLEGO CP TROPI #### [place] [address] [employer] Worker: Darci Castle MD Abs.Neutrophil (Seg) 3.10 k/uL Normal 1.80-7.30 [facility] Comment on above: Performed By: #### Maximino GALLEGO CP TROPI #### [place] [id number] [employer] Worker: Darci Castle MD Basophils/100 WBC (Bld) 0 % Normal 0.0-2.0 [facility] Comment on above: Performed By: #### Maximino GALLEGO CP, TROPI #### [address] [place] [address] [employer] Worker: Darci Castle MD Eosinophils (Bld) [#/Vol] 0.20 10*3/uL Normal 0.05-0.50 [facility] Comment on above: Performed By: #### Maximino GALLEGO CP, TROPI #### [address] [place] [address] [employer] Worker: Darci Castle MD Eosinophils/100 WBC (Bld) 3 % Normal 0-6 [facility] Comment on above: Performed By: #### Maximino GALLEGO CP, TROPI #### [address] [place] [address] [employer] Worker: Darci Castle MD Erythrocyte distribution width (RBC) [Ratio] 12.9 % Normal 11.5-15.0 [facility] Comment on above: Performed By: #### Maximino GALLEGO CP, TROPI #### [address] [place] [address] [employer] Worker: Darci Castle MD Hematocrit (Bld) [Volume fraction] 35.0 % Normal 34.0-48.0 [facility] Comment on above: Performed By: #### Maximino GALLEGO CP, TROPI #### [address] [place] [address] [employer] Worker: Darci Castle MD Hemoglobin (Bld) [Mass/Vol] 11.9 g/dL Normal 11.5-15.5 [facility] Comment on above: Performed By: #### Maximino GALLEGO CP, TROPI #### [address] [place] [address] [employer] Worker: Darci Castle MD Immature granulocytes/100 WBC (Bld) 1 % Normal 0.0-5.0 [facility] Comment on above: Performed By: #### Maximino GALLEGO CP, TROPI #### [address] [place] [address] [employer] Worker: Darci Castle MD Lymphocytes (Bld) [#/Vol] 2.33 10*3/uL Normal 1.50-4.00 [facility] Comment on above: Performed By: #### C LASHONDA, CP, TROPI #### [place] [address] [employer] Worker: Darci Castle MD Lymphocytes/100 WBC (Bld) 37 % Normal 20.0-42.0 [facility] Comment on above: Performed By: #### Maximino GALLEGO CP, TROPI #### [place] [address] [employer] Worker: Darci Castle MD MCH (RBC) [Entitic mass] 31.5 pg Normal 26.0-35.0 [facility] Comment on above: Performed By: #### Maximino GALLEGO CP, TROPI #### [address] [address] [employer] Worker: Darci Castle MD MCHC (RBC) [Mass/Vol] 34.0 g/dL Normal 32.0-34.5 [facility] Comment on above: Performed By: #### Maximino GALLEGO, CP, TROPI #### [address] [address] [employer] Worker: Darci Castle MD MCV (RBC) [Entitic vol] 92.6 fL Normal 80.0-99.9 [facility] Comment on above: Performed By: #### C LASHONDA, CP, TROPI #### [address] [place] [address] [employer] Worker: Darci Castle MD Monocytes (Bld) [#/Vol] 0.55 10*3/uL Normal 0.10-0.95 [facility] Comment on above: Performed By: #### C ADILENE GALLEGO, TROPI #### [address] [place] [address] [employer] Worker: Darci Castle MD Monocytes/100 WBC (Bld) 9 % Normal 2.0-12.0 [facility] Comment on above: Performed By: #### C ADILENE GALLEGO, TROPI #### [address] [place] [address] [employer] Worker: Darci Castle MD Neutrophil (Seg) 50 % Normal 43.0-80.0 [facility] Comment on above: Performed By: #### C ADILENE GALLEGO, TROPI #### [address] [place] [address] [employer] Worker: Darci Castle MD Platelet mean volume (Bld) [Entitic vol] 8.1 fL Normal 7.0-12.0 [facility] Comment on above: Performed By: #### C ADILENE AGLLEGO, TROPI #### [address] [place] [address] [employer] Worker: Darci Castle MD Platelets (Bld) [#/Vol] 314 10*3/uL Normal 130-450 [facility] Comment on above: Performed By: #### C ADILENE GALLEGO, TROPI #### [address] [place] [address] [employer] Worker: Darci Castle MD RBC (Bld) [#/Vol] 3.78 10*6/uL Normal 3.50-5.50 [facility] Comment on above: Performed By: #### C LASHONDA, ADILENE, TROPI #### [facility] [address] [place], [place] [id number] [employer] Worker: Darci Castle MD WBC (Bld) [#/Vol] 6.3 10*3/uL Normal 4.5-11.5 [facility] Comment on above: Performed By: #### C LASHONDA, ADILENE, TROPI #### [facility] [address] [place], [place] [id number] [employer] Worker: Darci Castle MD [facility] 10-27-2024 Albumin [Mass/Vol] 4.0 g/dL 3.5 - 5.2 g/dL [facility] ALP [Catalytic activity/Vol] 99 U/L 35 - 104 U/L [facility] ALT [Catalytic activity/Vol] 19 U/L 0 - 35 U/L [facility] Anion gap [Moles/Vol] 14 mmol/L 7 - 16 mmol/L [facility] AST [Catalytic activity/Vol] 25 U/L 0 - 35 U/L [facility] Comment on above: Specimen hemolyzed, results may be adversely affected. Bilirubin [Mass/Vol] mg/dL 0.0 - 1 .2 mg/dL [facility] Calcium [Mass/Vol] 9.1 mg/dL 8.6 - 10. 0 mg/dL [facility] Chloride [Moles/Vol] 99 mmol/L 98 - 10 7 mmol/L [facility] CO2 [Moles/Vol] 24 mmol/L 22 - 29 mmol/L [facility] Creatinine [Mass/Vol] 0.7 mg/dL 0.5 - 1.0 mg/dL [facility] Est, Glom Filt Rate - PINF [facility] Comment on above: These results are not [...] that affects renal tubular secretion. Glucose [Mass/Vol] 119 mg/dL High 74 - 99 mg/dL [facility] Interpretation and review of laboratory results Abnormal [facility] Potassium [Moles/Vol] 4.1 mmol/L 3.5 - 5.1 mmol/L [facility] Comment on above: Specimen hemolyzed, results may be adversely affected. Protein [Mass/Vol] 6.6 g/dL 6.4 - 8.3 g/dL [facility] Sodium [Moles/Vol] 138 mmol/L 136 - 145 mmol/L [facility] Urea nitrogen [Mass/Vol] 10 mg/dL 6 - 20 mg/dL [facility]EL[facility] W IV CONTR Rosalind 10-27-2024 CT ABDOMEN PELVIS W IV CONTRAST EXAMINATION: CT OF THE ABDOMEN AND PELVIS WITH CONTRAST 10/27/2024 4:48 pm TECHNIQUE: CT of the abdomen and pelvis was performed with the administration of intravenous contrast. Multiplanar reformatted images are provided for review. Automated exposure control, iterative reconstruction, and/or weight based adjustment of the mA/kV was utilized to reduce the radiation dose to as low as reasonably achievable. COMPARISON: None. HISTORY: ORDERING SYSTEM PROVIDED HISTORY: lower back pain and rt flank pain, concern for acute cystitis and vs urinary retention vs acute fx TECHNOLOGIST PROVIDED HISTORY: Reason for exam:->lower back pain and rt flank pain, concern for acute cystitis and vs urinary retention vs acute fx Additional Contrast?->None Decision Support Exception - unselect if not a suspected or confirmed emergency medical condition->Emergency Medical Condition ([place]) What reading provider will be dictating this exam?->CRC FINDINGS: Lower Chest: Visualized lungs are normal. Organs: The the liver, spleen, adrenal glands, kidneys and pancreas are normal. The gallbladder is not visualized. GI/Bowel: Colonic fecal retention. Normal small bowel. Pelvis: Normal urinary bladder. Peritoneum/Retroperiton eum: No free fluid or free air. Osseous structures and soft tissues: Unremarkable. IMPRESSION: 1. No acute intra-abdominal or pelvic process. 2. Colonic fecal retention. Interpreted by: Bello Peralta MD Signed by: Bello Peralta MD 10/27/24 Final result Normal [facility] Comment on above: Order Comment: Reaso n for exam:->lower back pain and rt flank pain, concern for acute cystitis and vs urinary retention vs acute fxAdditional Contrast?->NoneDecision Support Exception - unselect if not a suspected or confirmed emergency medical condition->Emergency Medical Condition ([place])What reading provider will be dictating this exam?->CRC CT Abdomen and Pelvis W cont rast Maryann 10-27-2024 1. No acute intra-abdominal or pelvic process. 2. Colonic fecal retention. [facility] EXAMINATION: CT OF THE ABDOMEN AND PELVIS WITH CONTRAST 10/27/2024 4:48 pm TECHNIQUE: CT of the abdomen and pelvis was performed with the administration of intravenous contrast. Multiplanar reformatted images are provided for review. Automated exposure control, iterative reconstruction, and/or weight based adjustment of the mA/kV was utilized to reduce the radiation dose to as low as reasonably achievable. COMPARISON: None. HISTORY: ORDERING SYSTEM PROVIDED HISTORY: lower back pain and rt flank pain, concern for acute cystitis and vs urinary retention vs acute fx TECHNOLOGIST PROVIDED HISTORY: Reason for exam:->lower back pain and rt flank pain, concern for acute cystitis and vs urinary retention vs acute fx Additional Contrast?->None Decision Support Exception - unselect if not a suspected or confirmed emergency medical condition->Emergency Medical Condition ([place]) What reading provider will be dictating this exam?->CRC FINDINGS: Lower Chest: Visualized lungs are normal. Organs: The the liver, spleen, adrenal glands, kidneys and pancreas are normal. The gallbladder is not visualized. GI/Bowel: Colonic fecal retention. Normal small bowel. Pelvis: Normal urinary bladder. Peritoneum/Retroperiton eum: No free fluid or free air. Osseous structures and soft tissues: Unremarkable. [facility] Bello Peralta MD - 10/27/2024 EXAMINATION: CT OF THE ABDOMEN AND PELVIS WITH CONTRAST 10/27/2024 4:48 pm TECHNIQUE: CT of the abdomen and pelvis was performed with the administration of intravenous contrast. Multiplanar reformatted images are provided for review. Automated exposure control, iterative reconstruction, and/or weight based adjustment of the mA/kV was utilized to reduce the radiation dose to as low as reasonably achievable. COMPARISON: None. HISTORY: ORDERING SYSTEM PROVIDED HISTORY: lower back pain and rt flank pain, concern for acute cystitis and vs urinary retention vs acute fx TECHNOLOGIST PROVIDED HISTORY: Reason for exam:->lower back pain and rt flank pain, concern for acute cystitis and vs urinary retention vs acute fx Additional Contrast?->None Decision Support Exception - unselect if not a suspected or confirmed emergency medical condition->Emergency Medical Condition ([place]) What reading provider will be dictating this exam?->CRC FINDINGS: Lower Chest: Visualized lungs are normal. Organs: The the liver, spleen, adrenal glands, kidneys and pancreas are normal. The gallbladder is not visualized. GI/Bowel: Colonic fecal retention. Normal small bowel. Pelvis: Normal urinary bladder. Peritoneum/Retroperiton eum: No free fluid or free air. Osseous structures and soft tissues: Unremarkable. IMPRESSION: 1. No acute intra-abdominal or pelvic process. 2. Colonic fecal retention. [facility] CT Abdomen and Pelvis W cont rast IVOrdered By: Bello Peralta on 10-27-2024 [facility] Work Phone: CT LUMBAR SPINE WO CONTRASTo n 10-27-2024 CT LUMBAR SPINE WO CONTRAST EXAMINATION: CT OF THE LUMBAR SPINE WITHOUT CONTRAST 10/27/2024 TECHNIQUE: CT of the lumbar spine was [...] COMPARISON: None HISTORY: ORDERING SYSTEM PROVIDED HISTORY: lower back pain and rt flank pain, concern for acute cystitis and vs urinary retention vs acute fx TECHNOLOGIST PROVIDED HISTORY: Reason for exam:->lower back pain and rt flank pain, concern for acute cystitis and vs urinary retention vs acute fx Decision Support Exception - unselect if not a suspected or confirmed emergency medical condition->Emergency Medical Condition ([place]) What reading provider will be dictating this exam?->CRC FINDINGS: BONES/ALIGNMENT: There is normal alignment of the spine. The vertebral body heights are maintained. No osseous destructive lesion is seen. DEGENERATIVE CHANGES: No significant degenerative changes of the lumbar spine. SOFT TISSUES/RETROPERITONEUM : No paraspinal mass is seen. IMPRESSION: Unremarkable non-contrast CT of the lumbar spine. Interpreted by: Bello Peralta MD Signed by: Bello Peralta MD 10/27/24 Final result Normal [facility] Comment on above: Order Comment: Reaso n for exam:->lower back pain and rt flank pain, concern for acute cystitis and vs urinary retention vs acute fxDecision Support Exception - unselect if not a suspected or confirmed emergency medical condition->Emergency Medical Condition ([place])What reading provider will be dictating this exam?->CRC CT Lumbar spine WO contrasto n 10-27-2024 Unremarkable non-contrast CT of the lumbar spine. [facility] EXAMINATION: CT OF THE LUMBAR SPINE WITHOUT CONTRAST 10/27/2024 TECHNIQUE: CT of the lumbar spine was [...] COMPARISON: None HISTORY: ORDERING SYSTEM PROVIDED HISTORY: lower back pain and rt flank pain, concern for acute cystitis and vs urinary retention vs acute fx TECHNOLOGIST PROVIDED HISTORY: Reason for exam:->lower back pain and rt flank pain, concern for acute cystitis and vs urinary retention vs acute fx Decision Support Exception - unselect if not a suspected or confirmed emergency medical condition->Emergency Medical Condition ([place]) What reading provider will be dictating this exam?->CRC FINDINGS: BONES/ALIGNMENT: There is normal alignment of the spine. The vertebral body heights are maintained. No osseous destructive lesion is seen. DEGENERATIVE CHANGES: No significant degenerative changes of the lumbar spine. SOFT TISSUES/RETROPERITONEUM : No paraspinal mass is seen. [facility] Bello Peralta MD - 10/27/2024 EXAMINATION: CT OF THE LUMBAR SPINE WITHOUT CONTRAST 10/27/2024 TECHNIQUE: CT of the lumbar spine was [...] COMPARISON: None HISTORY: ORDERING SYSTEM PROVIDED HISTORY: lower back pain and rt flank pain, concern for acute cystitis and vs urinary retention vs acute fx TECHNOLOGIST PROVIDED HISTORY: Reason for exam:->lower back pain and rt flank pain, concern for acute cystitis and vs urinary retention vs acute fx Decision Support Exception - unselect if not a suspected or confirmed emergency medical condition->Emergency Medical Condition ([place]) What reading provider will be dictating this exam?->CRC FINDINGS: BONES/ALIGNMENT: There is normal alignment of the spine. The vertebral body heights are maintained. No osseous destructive lesion is seen. DEGENERATIVE CHANGES: No significant degenerative changes of the lumbar spine. SOFT TISSUES/RETROPERITONEUM : No paraspinal mass is seen. IMPRESSION: Unremarkable non-contrast CT of the lumbar spine. [facility] Comp Metabolic Profon 2024 Albumin [Mass/Vol] 4.0 g/dL Normal 3.5-5.2 [facility] Comment on above: Performed By: #### C ADILENE GALLEGO TROPI #### [address] [address] [employer] Worker: Darci Castle MD Alkaline Phos 99 U/L Normal 35-104 [facility] Comment on above: Performed By: #### Maximino GALLEGO CP TROPI #### [address] [address] [employer] Worker: Darci Castle MD ALT [Catalytic activity/Vol] 19 U/L Normal 0-35 [facility] Comment on above: Performed By: #### Maximino GALLEGO CP TROPI #### [address] [address] [employer] Worker: Darci Castle MD Anion gap [Moles/Vol] 14 mmol/L Normal 7-16 [facility] Comment on above: Performed By: #### C BCWD, CP, TROPI #### [address] [place] [address] [employer] Worker: Darci Castle MD AST [Catalytic activity/Vol] 25 U/L Normal 0-35 [facility] Comment on above: Result Comment: Spec imen hemolyzed, results may be adversely affected. Performed By: #### C LASHONDA, CP, TROPI #### [address] [place] [address] [employer] Worker: Darci Castle MD Bilirubin [Mass/Vol] mg/dL Normal 0.0-1.2 [facility] Comment on above: Performed By: #### C LASHONDA, CP, TROPI #### [address] [place] [address] [employer] Worker: Darci Castle MD Calcium [Mass/Vol] 9.1 mg/dL Normal 8.6-10.0 [facility] Comment on above: Performed By: #### C LASHONDA, CP, TROPI #### [address] [place] [address] [employer] Worker: Darci Castle MD Chloride [Moles/Vol] 99 mmol/L Normal 98-107 [facility] Comment on above: Performed By: #### C LASHONDA, CP, TROPI #### [address] [place] [address] [employer] Worker: Darci Castle MD CO2 [Moles/Vol] 24 mmol/L Normal 22-29 [facility] Comment on above: Performed By: #### C LASHONDA, CP, TROPI #### [address] [place] [address] [employer] Worker: Darci Castle MD Creatinine [Mass/Vol] 0.7 mg/dL Normal 0.5-1.0 [facility] Comment on above: Performed By: #### C ADILENE GALLEGO TROPI #### [address] [place] [address] [employer] Worker: Darci Castle MD GFR/1.73 sq M.predicted among non-blacks MDRD (S/P/Bld) [Vol rate/Area] mL/min/{1.73_m2} Normal >60 [facility] Comment on above: Result Comment: These results [...] renal tubular secretion. Performed By: #### C ADILENE GALLEGO TROPI #### [address] [place] [address] [employer] Worker: Darci Castle MD Glucose [Mass/Vol] 119 mg/dL High 74-99 [facility] Comment on above: Performed By: #### C ADILENE GALLEGO TROPI #### [address] [place] [address] [employer] Worker: Darci Castle MD Potassium [Moles/Vol] 4.1 mmol/L Normal 3.5-5.1 [facility] Comment on above: Result Comment: Spec imen hemolyzed, results may be adversely affected. Performed By: #### C ADILENE GALLEGO TROPI #### [address] [address] [employer] Worker: Darci Castle MD Protein [Mass/Vol] 6.6 g/dL Normal 6.4-8.3 [facility] Comment on above: Performed By: #### C ADILENE GALLEGO TROPI #### [facility] [address] [place] [address] [employer] Worker: Darci Castle MD Sodium [Moles/Vol] 138 mmol/L Normal 136-145 [facility] Comment on above: Performed By: #### C ADILENE GALLEGO, TROPI #### [address] [place] [address] [employer] Worker: Darci Castle MD Urea nitrogen [Mass/Vol] 10 mg/dL Normal 6-20 [facility] Comment on above: Performed By: #### C ADILENE GALLEGO TROPI #### [address] [place] [address] [employer] Worker: Darci Castle MD MRI SHOULDER LEFT WO CONTRAS Ton 10-27-2024 MRI SHOULDER LEFT WO CONTRAST EXAM: MRI OF THE LEFT SHOULDER WITHOUT CONTRAST 10/27/2024 01:34:24 PM TECHNIQUE: Multiplanar multisequence MRI of the left shoulder was performed without the administration of intravenous contrast. COMPARISON: None available. CLINICAL HISTORY: Strain of tendon of left rotator cuff, initial encounter. ORDERING SYSTEM PROVIDED HISTORY:Strain of tendon of left rotator cuff, initial encounter; TECHNOLOGIST PROVIDED HISTORY: Reason for exam:->pain FINDINGS: ROTATOR CUFF: There is a 1.9 cm segment of moderate tendinosis of the supraspinatus and infraspinatus. No significant muscle edema or atrophy. BICEPS TENDON: Long head biceps tendon is intact and normally located. LABRUM: The glenoid labrum is intact to the extent that it is visualized. No paralabral cyst. GLENOHUMERAL JOINT: Physiologic amount of joint fluid. No high-grade cartilage loss. Normal alignment. AC JOINT AND ACROMIOCLAVICULAR ARCH: Mild acromioclavicular hypertrophic change. No significant acromial downsloping or subacromial spur. Intact acromioclavicular and coracoclavicular ligaments. BURSA: Mild subacromial bursal distention. BONE MARROW: No acute fracture or aggressive marrow replacing lesion. OUTLET SPACES: Normal MRI appearance of the quadrilateral space. No significant narrowing of the supraspinatus outlet. SOFT TISSUES: No focal abnormality of the subcutaneous soft tissues. IMPRESSION: 1. Moderate tendinosis of the supraspinatus and infraspinatus, involving a 1.9 cm segment. 2. Mild subacromial bursal distention. 3. Mild acromioclavicular hypertrophic change. Interpreted by: Fernanda Lutz MD Signed by: Fernanda Lutz MD 10/27/24 Final result Normal [facility] Comment on above: Order Comment: Reaso n for exam:->pain Microscopic Urinalysison Bacteria LM Ql (Urine sed) TRACE Abnormal None [facility] Epithelial cells LM.HPF (Urine sed) [#/Area] 0 TO 2 /HPF [facility] Interpretation and review of laboratory results Abnormal [facility] RBC LM.HPF (Urine sed) [#/Area] 0 TO 2 0 TO 2 /HPF [facility] WBC LM.HPF (Urine sed) [#/Area] 0 TO 5 0 TO 5 /HPF [facility] No Panel Informationon 10-27 Radiology Study observation (narrative) [facility] Urinalysison 10-27-2024 Bilirubin Ql (U) Negative NEGATIVE [facility] Clarity (U) Clear Clear [facility] Color (U) Yellow Yellow [facility] Glucose Test strip (U) [Mass/Vol] Negative NEGATIVE mg/dL [facility] Hemoglobin Auto test strip Ql (U) Negative NEGATIVE [facility] Interpretation and review of laboratory results Abnormal [facility] Ketones (U) [Mass/Vol] Negative NEGATIVE mg/dL [facility] Leukocyte esterase Test strip Ql (U) TRACE Abnormal NEGATIVE [facility] Nitrite Ql (U) Negative NEGATIVE [facility] pH (U) 6.0 [pH] 5.0 - 8.0 [facility] Protein (U) [Mass/Vol] Negative NEGATIVE mg/dL [facility] Specific gravity (U) [Rel density] 1.025 1.005 - 1.030 [facility] Urobilinogen Qn (U) 0.2 {Leonie'U}/dL 0. 0 - 1.0 EU/dL [facility] Urinalysis, Routineon 2024 Bilirubin, SemiQt,Ur Negative Normal NEG [facility] Comment on above: Performed By: #### C LASHONDA, CP, TROPI #### [address] [place] [address] [employer] Worker: Darci Castle MD Blood, Urine Negative Normal NEG [facility] Comment on above: Performed By: #### C LASHONDA, CP, TROPI #### [address] [place] [address] [employer] Worker: Darci Castle MD Clarity (U) Clear Normal CLEAR [facility] Comment on above: Performed By: #### C LASHONDA, CP, TROPI #### [address] [place] [address] [employer] Worker: Darci Castle MD Color (U) Yellow Normal YEL [facility] Comment on above: Performed By: #### C LASHONDA, CP, TROPI #### [address] [place] [address] [employer] Worker: Darci Castle MD Glucose Ql (U) Negative Normal NEG [facility] Comment on above: Performed By: #### C LASHONDA, CP, TROPI #### [address] [place] [address] [employer] Worker: Darci Castle MD Ketones Ql (U) Negative Normal NEG [facility] Comment on above: Performed By: #### C LASHONDA, CP, TROPI #### [address] [place] [address] [employer] Worker: Darci Castle MD Leukocyte esterase Test strip Ql (U) TRACE Abnormal NEG [facility] Comment on above: Performed By: #### C BCWD, CP, TROPI #### [address] [place] [address] [employer] Worker: Darci Castle MD Nitrite,Ur Negative Normal NEG [facility] Comment on above: Performed By: #### C BCWD, CP, TROPI #### [address] [place] [address] [employer] Worker: Darci Castle MD PH,Ur 6.0 Normal 5.0-8.0 [facility] Comment on above: Performed By: #### C BCWD, CP, TROPI #### [address] [place] [address] [employer] Worker: Darci Castle MD Protein Ql (U) Negative Normal NEG [facility] Comment on above: Performed By: #### C BCWD, CP, TROPI #### [address] [place] [address] [employer] Worker: Darci Castle MD Spec. Thayer,Ur 1.025 Normal 1.005-1.030 [facility] Comment on above: Performed By: #### C BCWD, CP, TROPI #### [address] [place] [address] [employer] Worker: Darci Castle MD Urobilinogen,Ur 0.2 EU/dL Normal 0.0-1.0 [facility] Comment on above: Performed By: #### C BCWD, CP, TROPI #### [address] [place] [address] [employer] Worker: Darci Castle MD Urinalysis,Microon 5 Bacteria TRACE Abnormal NONE [facility] Comment on above: Performed By: #### C ADILENE GALLEGO, TROPI #### [address] [place] [address] [employer] Worker: Darci Castle MD Epithelial cells LM Ql (Urine sed) 0 TO 2 Normal [facility] Comment on above: Performed By: #### C ADILENE GALLEGO, TROPI #### [address] [place] [address] [employer] Worker: Darci Castel MD Urine RBC's 0 TO 2 Normal R02 [facility] Comment on above: Performed By: #### Maximino GALLEGO CP, TROPI #### [address] [place] [address] [employer] Worker: Darci Castle MD Urine WBC's 0 TO 5 Normal R05 [facility] Comment on above: Performed By: #### Maximino GALLEGO CP, TROPI ####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 on 07-07-2024 Bile acid Ql (U) Negative NEG [facility] Buprenorphine Ur QlOrdered B y: Edwarjuan j Raygoza on 07-07-2024 Buprenorphine Ql (U) Not detected None Detect [facility] Comment on above: Cut-off 5 ng/mLThis is a screening test and the results should be used formedical purposes only. Cannabinoids Ur QlOrdered By : Edwar Raygoza on 07-07-2024 Cannabinoids Ql (U) Present None Detect [facility] Comment on above: RESULTS RECHECKEDCut -off 50 ng/mLThis is a screening test and the results should be used formedical purposes only. Cocaine Ur QlOrdered By: Regina Raygoza on 07-07-2024 Cocaine Ql (U) Not detected None Detect [facility] Comment on above: Cut-off 300 ng/mLThi s is a screening test and the results should be used formedical purposes only. Color UrOrdered By: Edwar browne on 07-07-2024 Color (U) YELLOW YELLOW [facility] DRUG SCREEN URINEon 07-08-19 25 6-ACETYL MORPHPHINE SCREEN Not detected Normal None Detect [facility] Comment on above: Result Comment: Cut- off 10 ng/mL This is a screening test and the results should be used for medical purposes only. Performed By: #### D RSCREEN ####[address] [address] AMPHETAMINE SCREEN Not detected Normal None Detect [facility] Comment on above: Result Comment: Cut- off 1000 ng/mL This is a screening test and the results should be used for medical purposes only. Performed By: #### D RSCREEN ####[address] [address] BARBITURATE SCREEN Not detected Normal None Detect [facility] Comment on above: Result Comment: Cut- off 200 ng/mL This is a screening test and the results should be used for medical purposes only. Performed By: #### D RSCREEN ####[address] [address] BENZODIAZEPINE SCREEN Not detected Normal None Detect [facility] Comment on above: Result Comment: Cut- off 200 ng/mL This is a screening test and the results should be used for medical purposes only. Performed By: #### D RSCREEN ####[address] [address] BUPRENORPHINE (SUBOXONE) Not detected Normal None Detect [facility] Comment on above: Result Comment: Cut- off 5 ng/mL This is a screening test and the results should be used for medical purposes only. Performed By: #### D RSCREEN ####[address] [address] Cannabinoids Screen Ql (U) Present Abnormal None Detect [facility] Comment on above: Result Comment: RESU LTS RECHECKED Cut-off 50 ng/mL This is a screening test and the results should be used for medical purposes only. Performed By: #### D RSCREEN ####[address] [address] COCAINE METABOLITE SCREEN Not detected Normal None Detect [facility] Comment on above: Result Comment: Cut- off 300 ng/mL This is a screening test and the results should be used for medical purposes only. Performed By: #### D RSCREEN ####[address] [address] FENTANYL SCREEN Not detected Normal NONE DETECT [facility] Comment on above: Result Comment: Cut- off 1 ng/mL This is a screening test and the results should be used for medical purposes only. Performed By: #### D RSCREEN ####[address] [address] METHADONE SCREEN Not detected Normal None Detect [facility] Comment on above: Result Comment: Cut- off 300 ng/mL This is a screening test and the results should be used for medical purposes only. Performed By: #### D RSCREEN ####[address] [address] Opiates Ql (U) Not detected Normal None Detect [facility] Comment on above: Result Comment: Cut- off 300 ng/mL This is a screening test and the results should be used for medical purposes only. Performed By: #### D RSCREEN ####[address] [address] OXYCODONE SCREEN Not detected Normal None Detect [facility] Comment on above: Result Comment: Cut- off 100 ng/mL This is a screening test and the results should be used for medical purposes only. This test will detect other related compounds; Codeine, Dihydrocodeine, Hydrocodone, Hydromorphone, and Oxymorphone. Performed By: #### D RSCREEN ####[address] [address] Specific gravity (U) [Rel density] 1.010 Normal 1.002-1.030 [facility] Comment on above: Result Comment: This is a screening test and the results should be used for medical purposes only. Performed By: #### D RSCREEN ####[address] [address] EDon 07-07-2024 ED [facility] 07/07/24 [place], [place] [address] [id number] DB DOAN None EMERGENCY ROOM REPORT MR [id number] History of Present Illness Date of [...] was seeing a pain specialist at the nine months ago. She states the specialist [...] 101 99 07/07 0402 97.7 101 20 131/ 101 99 Room Air General Appearance: Alert [...] Diop MD) Exam Diagnostic Studies Laboratory Tests 07/07 06 Toxicology Opiates Screen (None Detect) None Detected [...] Detected Cannabinoids (None Detect) Present Urine Specific Thayer (1.002 - 1.030) 1.010 Urines Urine Color (YELLOW) YELLOW Urine Appearance (CLEAR) CLEAR Urine pH (4.6 - 8.0) 6.0 Ur Specific Thayer (1.002 - 1.030) 1.012 Urine Protein (NEG) [...] DRUG SCREEN (more content not included)... Normal [facility] Glucose Ur Ql Strip.autoOrde red By: Edwar Raygoza on 07-07-2024 Glucose Auto test strip Ql (U) Negative NEG [facility] Hgb Ur Ql Strip.autoOrdered By: Edwar Raygoza on 07-07-2024 Hemoglobin Auto test strip Ql (U) Negative NEG [facility] Ketones Ur Ql Strip.autoOrde red By: Edwar Raygoza on 07-07-2024 Ketones Auto test strip Ql (U) Negative NEG [facility] Laboratory - Chemistry and C hemistry - challengeOrdered By: Edwar Raygoza on 07-07-2024 Specific gravity (U) [Rel density] 1.010 1.002-1.030 [facility] Comment on above: This is a screening test and the results should be used formedical purposes only. Methadone Ur QlOrdered By: Jonatan Raygoza on 07-07-2024 Methadone Ql (U) Not detected None Detect [facility] Comment on above: Cut-off 300 ng/mLThi s is a screening test and the results should be used formedical purposes only. Nitrite Ur Ql Strip.autoOrde red By: Edwar Raygoza on 07-07-2024 Nitrite Auto test strip Ql (U) Negative NEG [facility] No Panel InformationOrdered By: Edwar Raygoza on 07-07-2024 Urine 6-Acetylmorphine Screen Not detected None Detect [facility] Comment on above: Cut-off 10 ng/mLThis is a screening test and the results should be used formedical purposes only. Urine Ascorbic Acid Level Negative NEG [facility] Urine Fentanyl Screen Not detected NONE DETECT [facility] Comment on above: Cut-off 1 ng/mLThis is a screening test and the results should be used formedical purposes only. Opiates Ur QlOrdered By: Regina Raygoza on 07-07-2024 Opiates Ql (U) Not detected None Detect [facility] Comment on above: Cut-off 300 ng/mLThi s is a screening test and the results should be used formedical purposes only. Oxycodone Ur QlOrdered By: Jonatan Raygoza on 07-07-2024 oxyCODONE Ql (U) Not detected None Detect [facility] Comment on above: Cut-off 100 ng/mLThi s is a screening test and the results should be used formedical purposes only.This test will detect other related compounds; Codeine,Dihydrocodeine, Hydrocodone, Hydromorphone, and Oxymorphone. Prot Ur Ql Strip.autoOrdered By: Edwar Raygoza on 07-07-2024 Protein Auto test strip Ql (U) Negative NEG [facility] RBC #/area UrnS HPFOrdered B y: Edwar Raygoza on 07-07-2024 RBC LM.HPF (Urine sed) [#/Area] 0-2 NEG [facility] ROUTINE URINE WITH RFLX CULT on 07-07-2024 Appearance (U) CLEAR Normal CLEAR [facility] Comment on above: Performed By: #### U RREFLEX ####[address] [address] Color (U) YELLOW Normal YELLOW [facility] Comment on above: Performed By: #### U RREFLEX ####[address] [address] Glucose Ql (U) Negative Normal NEG [facility] Comment on above: Performed By: #### U RREFLEX ####[address] [address] Nitrite Ql (U) Negative Normal NEG [facility] Comment on above: Performed By: #### U RREFLEX ####[address] [address] pH (U) 6.0 [pH] Normal 4.6-8.0 [facility] Comment on above: Performed By: #### U RREFLEX ####[address] [address] Protein Ql (U) Negative Normal NEG [facility] Comment on above: Performed By: #### U RREFLEX ####[address] [address] Specific gravity (U) [Rel density] 1.012 Normal 1.002-1.030 [facility] Comment on above: Performed By: #### U RREFLEX ####[address] [address] URINE ASCORBIC ACID Negative Normal NEG [facility] Comment on above: Performed By: #### U RREFLEX ####[address] [address] URINE BILE Negative Normal NEG [facility] Comment on above: Performed By: #### U RREFLEX ####[address] [address] URINE HEMOGLOBIN Negative Normal [facility] Comment on above: Performed By: #### U RREFLEX ####[address] [address] URINE KETONE Negative Normal NEG [facility] Comment on above: Performed By: #### U RREFLEX ####[address] [address] URINE LEUKOCYTES TR Abnormal NEG [facility] Comment on above: Performed By: #### U RREFLEX ####[address] [address] URINE RED BLOOD CELLS 0-2 Normal NEG [facility] Comment on above: Performed By: #### U RREFLEX ####[address] [address] URINE SQUAMOUS EPITHELIAL 0-5 Abnormal [facility] [facility] Comment on above: Performed By: #### U RREFLEX ####[address] [address] URINE WBC 0-5 Normal NEG [facility] Comment on above: Performed By: #### U RREFLEX ####[address] [address] Urobilinogen (U) [Mass/Vol] Negative Normal <2.0 [facility] Comment on above: Performed By: #### U RREFLEX ####[address] [address] Specific gravity Auto test s trip (U) [Rel density]Ordered By: Edwar Raygoza on 07-07-2024 Specific gravity (U) [Rel density] 1.012 1.002-1.030 [facility] Squamous #/area UrnS HPFOrde red By: Edwar Raygoza on 07-07-2024 Epithelial cells.squamous LM.HPF (Urine sed) [#/Area] 0-5 NEG [facility] URINE CULTUREon 07-07-2024 Bacteria identified Cx Nom (U) RUN DATE: 07/08/24 Laboratory LIVE PAGE 1 RUN TIME: 923 Specimen Inquiry RUN USER: INTERFACE [facility] Department of Laboratories [address] [place] [address] PATIENT: DB DOAN LOC: [facility] U #: [id number] HOME PHONE: AGE/SX: 54/F ROOM: RE07/07/[address]: Edwar Raygoza MD : 74 BED: DIS: STATUS: DEP ER LAB O/S: Specimen: [id number] Collected: 07/07/24 Status: COMP Req#: [id number] Received: 07/07/24 Source: LISA Alcantar Desc: Subm Dr: Edwar Raygoza MD Ordered: URINE CULTURE Procedure Result Verified > URINE CULTURE Final 07/08/24 COLONY COUNT > 100,000 COLONIES/ML HEAVY LACTOBACILLUS SPECIES RARE YEAST END OF REPORT Normal [facility] Comment on above: Performed By: #### C ULTLISA ####[address] [address] Urobilinogen Test strip Ql ( U)Ordered By: Edwar Raygoza on 07-07-2024 Urobilinogen Ql (U) Negative <2.0 [facility] WBC #/area UrnS HPFOrdered B y: Edwar Raygoza on 07-07-2024 WBC LM.HPF (Urine sed) [#/Area] 0-5 NEG [facility] WBC Ur Ql AutoOrdered By: Kristen Raygoza on 07-07-2024 WBC Auto Ql (U) TR NEG [facility] Auto test strip (U)Ordere d By: Edwar Raygoza on 07-07-2024 pH (U) 6.0 [pH] 4.6-8.0 [facility] CBC with DIFFERENTIALon Basophils (Bld) [#/Vol] 0.0 10*3/uL Normal 0.0-0.1 [facility] Comment on above: Performed By: #### C BCD, HS TROP I, CMP, MG, PT ####[facility] [address] [place] [address] Basophils/100 WBC (Bld) 0.1 % Normal 0.0-1.0 [facility] Comment on above: Performed By: #### C BCD, HS TROP I, CMP, MG, PT ####[facility] [address] [place] [address] Eosinophils (Bld) [#/Vol] 0.0 10*3/uL Normal 0.0-0.4 [facility] Comment on above: Performed By: #### C BCD, HS TROP I, CMP, MG, PT ####[facility] [address] [place] [address] Eosinophils/100 WBC (Bld) 0.0 % Low 1.0-4.0 [facility] Comment on above: Performed By: #### C BCD, HS TROP I, CMP, MG, PT ####[facility] [address] [place] [address] Hematocrit (Bld) [Volume fraction] 39.2 % Normal 37.0-47.0 [facility] Comment on above: Performed By: #### C BCD, HS TROP I, CMP, MG, PT ####[facility] [address] [place] [address] Hemoglobin (Bld) [Mass/Vol] 13.3 g/dL Normal 12.0-16.0 [facility] Comment on above: Performed By: #### C BCD, HS TROP I, CMP, MG, PT ####[facility] [address] [place] [address] IG # 0.0 10*3/uL Normal 0.0-0.1 [facility] Comment on above: Performed By: #### C BCD, HS TROP I, CMP, MG, PT ####[facility] [address] [place] [address] IG % 0.5 % Normal 0.0-1.0 [facility] Comment on above: Performed By: #### C BCD, HS TROP I, CMP, MG, PT ####[facility] [address] [place] [address] Lymphocytes (Bld) [#/Vol] 1.3 10*3/uL Normal 1.3-4.4 [facility] Comment on above: Performed By: #### C BCD, HS TROP I, CMP, MG, PT ####[facility] [address] [place] [address] Lymphocytes/100 WBC (Bld) 16.4 % Low 27.0-41.0 [facility] Comment on above: Performed By: #### C BCD, HS TROP I, CMP, MG, PT ####[facility] [address] [place] [address] MCV (RBC) [Entitic vol] 92.2 fL Normal 81.0-99.0 [facility] Comment on above: Performed By: #### C BCD, HS TROP I, CMP, MG, PT ####[facility] [address] [place] [address] MEAN CORPUSCULAR HGB 31.3 pg High 27.0-31.0 [facility] Comment on above: Performed By: #### C BCD, HS TROP I, CMP, MG, PT ####[facility] [address] [place] [address] MEAN CORPUSCULAR HGB CONC 33.9 g/dl Normal 33.0-37.0 [facility] Comment on above: Performed By: #### C BCD, HS TROP I, CMP, MG, PT ####[facility] [address] [place] [address] Monocytes (Bld) [#/Vol] 0.4 10*3/uL Normal 0.1-1.0 [facility] Comment on above: Performed By: #### C BCD, HS TROP I, CMP, MG, PT ####[facility] [address] [place] [address] Monocytes/100 WBC (Bld) 4.9 % Normal 3.0-9.0 [facility] Comment on above: Performed By: #### C BCD, HS TROP I, CMP, MG, PT ####[facility] [address] [place] [address] Neutrophils (Bld) [#/Vol] 6.4 10*3/uL Normal 2.3-7.9 [facility] Comment on above: Performed By: #### C BCD, HS TROP I, CMP, MG, PT ####[facility] [address] [place] [address] Neutrophils/100 WBC (Bld) 78.1 % High 47.0-73.0 [facility] Comment on above: Performed By: #### C BCD, HS TROP I, CMP, MG, PT ####[facility] [address] [place] [address] NUCLEATED RED BLOOD CELL 0.0 10*3/uL Normal 0.0-0.0 [facility] Comment on above: Performed By: #### C BCD, HS TROP I, CMP, MG, PT ####[facility] [address] [place] [address] NUCLEATED RED BLOOD CELL 0.0 % Normal 0.0-0.0 [facility] Comment on above: Performed By: #### C BCD, HS TROP I, CMP, MG, PT ####[facility] [address] [place] [address] PLATELET COUNT AUTOMATED 302 10*3/uL Normal 130-400 [facility] Comment on above: Performed By: #### C BCD, HS TROP I, CMP, MG, PT ####[facility] [address] [place] [address] Platelet mean volume (Bld) [Entitic vol] 7.7 fL Low 9.6-12.3 [facility] Comment on above: Performed By: #### C BCD, HS TROP I, CMP, MG, PT ####[facility] [address] [place] [address] RBC (Bld) [#/Vol] 4.25 10*6/uL Normal 4.10-5.10 [facility] Comment on above: Performed By: #### C BCD, HS TROP I, CMP, MG, PT ####[facility] [address] [place] [address] RED CELL DISTRI WIDTH 13.2 % Normal 0-14.5 [facility] Comment on above: Performed By: #### C BCD, HS TROP I, CMP, MG, PT ####[facility] [address] [place] [address] WBC (Bld) [#/Vol] 8.1 10*3/uL Normal 4.8-10.8 [facility] Comment on above: Performed By: #### C BCD, HS TROP I, CMP, MG, PT ####[facility] [address] [place] [address] CHEST AP ONLY (1 V)on 2024 [id number] Name: DB DOAN Phys: DEBORA ACOSTA DO. : 1970 Age: 54 Sex: F Acct: [id number] Loc: ED Exam Date: 07/05/2024 Status: REG ER Radiology No: [id number] Unit No: [id number] EXAM# TYPE/EXAM RESULT [id number] EDRAD/CHEST AP ONLY (1 V) SEE REPORT [...] cardiopulmonary process. Signed by Georgina Gordon MD [facility] [address] [place] [address] REPORT SIGNED IN OTHER VENDOR SYSTEM 07/05/2024 Reported By: GEORGINA GORDON MD CC: MARIA ELENA MONTALVO Technologist: ASAEL MORALES Transcribed Date/Time: 07/05/2024 (025) Center Mgr: BRUCE Printed Date/Time: 07/05/2024 (256) PAGE 1 Signed Report Normal [facility] COMPREHENSIVE METABOLIC PANE Walt 07-05-2024 Albumin [Mass/Vol] 4.1 g/dL Normal 3.4-5.0 [facility] Comment on above: Performed By: #### C BCD, HS TROP I, CMP, MG, PT ####[facility] [address] [place] [address] ALP [Catalytic activity/Vol] 89 U/L Normal 46-116 [facility] Comment on above: Performed By: #### C BCD, HS TROP I, CMP, MG, PT ####[facility] [address] [place] [address] ALT [Catalytic activity/Vol] 18 U/L Normal 5-49 [facility] Comment on above: Performed By: #### C BCD, HS TROP I, CMP, MG, PT ####[facility] [address] [place] [address] AST [Catalytic activity/Vol] 16 U/L Normal 0-34 [facility] Comment on above: Performed By: #### C BCD, HS TROP I, CMP, MG, PT ####[facility] [address] [place] [address] Bilirubin [Mass/Vol] 0.5 mg/dL Normal 0.3-1.2 [facility] Comment on above: Performed By: #### C BCD, HS TROP I, CMP, MG, PT ####[facility] [address] [place] [address] CALCIUM,TOTAL 10.1 md/dL Normal 8.7-10.4 [facility] Comment on above: Performed By: #### C BCD, HS TROP I, CMP, MG, PT ####[facility] [address] [place] [address] Chloride [Moles/Vol] 104 mmol/L Normal 98-107 [facility] Comment on above: Performed By: #### C BCD, HS TROP I, CMP, MG, PT ####[facility] [address] [place] [address] CO2 [Moles/Vol] 27 mmol/L Normal 20-31 [facility] Comment on above: Performed By: #### C BCD, HS TROP I, CMP, MG, PT ####[facility] [address] [place] [address] Creatinine [Mass/Vol] 0.57 mg/dL Normal 0.55-1.02 [facility] Comment on above: Performed By: #### C BCD, HS TROP I, CMP, MG, PT ####[facility] [address] [place] [address] EST GLOM FILT > 60 Normal [facility] Comment on above: Result Comment: Result Units: [...] failure < 15 . Performed By: #### C BCD, HS TROP I, CMP, MG, PT ####[facility] [address] [place] [address] ESTIMATED GLOM FILT RATE > 60 Normal [facility] Comment on above: Performed By: #### C BCD, HS TROP I, CMP, MG, PT ####[facility] [address] [place] [address] Glucose [Mass/Vol] 126 mg/dL High 65-99 [facility] Comment on above: Performed By: #### C BCD, HS TROP I, CMP, MG, PT ####[facility] [address] [place] [address] Potassium [Moles/Vol] 3.6 mmol/L Normal 3.4-5.1 [facility] Comment on above: Performed By: #### C BCD, HS TROP I, CMP, MG, PT ####[facility] [address] [place] [address] Protein [Mass/Vol] 7.1 g/dL Normal 6.0-8.0 [facility] Comment on above: Performed By: #### C BCD, HS TROP I, CMP, MG, PT ####[facility] [address] [place] [address] Sodium [Moles/Vol] 138 mmol/L Normal 136-145 [facility] Comment on above: Performed By: #### C BCD, HS TROP I, CMP, MG, PT ####[facility] [address] [place] [address] Urea nitrogen [Mass/Vol] 13 mg/dL Normal 9- [facility] Comment on above: Performed By: #### C BCD, HS TROP I, CMP, MG, PT ####[facility] [address] [place] [address] ELECTROCARDIOGRAM REPORTon 0 07-05-2024 [employer] Fire Watcher Report [place], [place] ELECTROCARDIOGRAM REPORT NAME: DB DOAN UNIT #: [id number] ROOM: DOCTOR: DEBORA ACOSTA DO BIRTHDATE: [birth year] [facility] Test Date: 2024-07-05 Test Time: 02:05:42 Pat Name: DB PARISHFLOR Department: ED Room: Gender: Female 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: MELISSA : 1970 Requested By: DEBORA ACOSTA Order Number: [id number] Reading MD: Debora Acosta DO Measurements Intervals [place] Rate: 90 P: 77 CA: 171 QRS: 10 QRSD: 91 T: 57 QT: 377 QTc: 462 Interpretive Statements Sinus rhythm Probable left atrial enlargement RSR' in V1 or V2, probably normal variant Compared to ECG 06/07/2024 08:11:11 No significant changes Rate of [address] Elevations READ AT:0211 Electronically Signed On 07-05-2024 16:00:00 PDT by Debora Acosta DO CM:EKGRPT:ELECTROCARDIO GRAM REPORT [id number] [address] HARRINGTONEBER OMALLEY DEBORA ACOSTA DO Normal [facility] HIP RIGHT (2-3 V)on 07-06-19 25 [id number] Name: DB DOAN Phys: AURELIANO ACOSTA DOLENJonatan Enamorado : 1970 Age: 54 Sex: F Acct: [id number] Loc: ED Exam Date: 07/05/2024 Status: REG ER Radiology No: [id number] Unit No: [id number] EXAM# TYPE/EXAM RESULT [id number] EDRAD/HIP RIGHT (2-3 V) SEE REPORT INDICATION: Injury at work, fell onto hip. Throbbing right hip joint. TECHNIQUE: Two view(s) of the right hip. COMPARISON: XR Right Hip 03/13/2023. FINDINGS: There is no displaced fracture. The alignment is anatomic. No soft tissue abnormality is seen. IMPRESSION: No acute osseous abnormality. Signed by Lino Junior MD [facility] [address] [place] [address] REPORT SIGNED IN OTHER VENDOR SYSTEM 07/05/2024 Reported By: LINO JUNIOR MD CC: MARIA ELENA MONTALVO Technologist: ASAEL MORALES Transcribed Date/Time: 07/05/2024 (0439) Center Mgr: BRUCE Printed Date/Time: 07/05/2024 (9489) PAGE 1 Signed Report Normal [facility] HS TROPONIN Ion 07-05-2024 HS TROPONIN I 5 ng/L Normal 0-34 [facility] Comment on above: Result Comment: Inte rpretation [...] By: #### H S TROP I #### [facility] [address] [place] [address] HS TROPONIN I 5 ng/L Normal 0-34 [facility] Comment on above: Result Comment: Inte rpretation [...] value is considered significant. Performed By: #### C BCD, HS TROP I, CMP, MG, PT ####[facility] [address] [place] [address] MAGNESIUMon 07-05-2024 Magnesium [Mass/Vol] 2.1 mg/dL Normal 1.6-2.6 [facility] Comment on above: Performed By: #### C BCD, HS TROP I, CMP, MG, PT ####[facility] [address] [place] [address] PROTHROMBIN TIMEon INTERNATIONAL NORM RATIO 0.9 Low 2.0-3.5 [facility] Comment on above: Result Comment: INR THERAPEUTIC RANGE: GROUP A 2.0-3.0 INR GROUP B 2.5-3.5 INR GROUP A SUGGESTED INDICATIONS: PROPHYLAXIS AND TREATMENT OF VENOUS THROMBOSIS TREATMENT OF PULMONARY EMBOLISM ATRIAL FIBRILLATION GROUP B SUGGESTED INDICATIONS: MECHANICAL PROSTHETIC VALVES Performed By: #### C BCD, HS TROP I, CMP, MG, PT ####[facility] [address] [place] [address] PT Coag (PPP) [Time] 10.0 s Normal 8.9-12.2 [facility] Comment on above: Performed By: #### C BCD, HS TROP I, CMP, MG, PT ####[facility] [address] [place] [address] XR hand RT min 3Von 07-06-19 25 XR hand RT min 3V [facility] al [address] [place], [place] [address] XRay Report Signed Patient: DB DOAN MR#: [id number] 32 : 1970 Acct:[id number] Age/Sex: 54 / F Admit Date: 07/04/24 Loc: ER Attending Dr: Ordering Physician: Buck Unger MD Date of Service: 07/05/24 Procedure(s): XR hand RT min 3V Accession Number(s): [id number] cc: Buck Unger MD INDICATION: Right thumb pain after injury yesterday. TECHNIQUE: Three views of the right hand. COMPARISON: None Available. FINDINGS: There is no displaced fracture. The alignment is anatomic. No soft tissue abnormality is seen. IMPRESSION: No evidence for acute injury. Signed by Bartolo Garcia MD [address] [place] [address] Dictated By: Bartolo Garcia MD DD/ Signed By: Bartolo Garcia MD 07/05/2440 Center Mgr: STACY 07/05/2440 [facility] ([place]) Portable XR Chest AP single viewon 07-01-2024 No acute cardiopulmonary disease. No significant change. [facility] EXAMINATION: ONE XRAY VIEW OF THE CHEST 07/01/2024 8:26 am COMPARISON: 06/10/2024 HISTORY: ORDERING SYSTEM PROVIDED HISTORY: r/o pneumonia TECHNOLOGIST PROVIDED HISTORY: Reason for exam:->r/o pneumonia FINDINGS: No significant change. Normal heart size. No acute pulmonary infiltrate. No vascular congestion or pleural effusion. No pneumothorax. [facility] Nuno Calzada MD - 07/01/2024 EXAMINATION: ONE XRAY VIEW OF THE CHEST 07/01/2024 8:26 am COMPARISON: 06/10/2024 HISTORY: ORDERING SYSTEM PROVIDED HISTORY: r/o pneumonia TECHNOLOGIST PROVIDED HISTORY: Reason for exam:->r/o pneumonia FINDINGS: No significant change. Normal heart size. No acute pulmonary infiltrate. No vascular congestion or pleural effusion. No pneumothorax. IMPRESSION: No acute cardiopulmonary disease. No significant change. [facility] Radiology Study observation (narrative) [facility] XR CHEST PORTABLEon 07-02-19 XR CHEST [...] Nuno Calzada MD 07/01/24 Final result Normal [facility] Comment on above: Order Comment: Reaso n [...] Nuno Calzada MD 07/01/24 Final result Normal [facility] Comment on above: Order Comment: Reaso n for exam:->injury XR Shoulder - left 2 Viewson 07-01-2024 1. No fracture or dislocation. 2. Left shoulder focal calcific tendinosis, unchanged. [facility] EXAMINATION: TWO XRAY VIEWS OF [...] appears preserved. No focal soft tissue swelling. [facility] Nuno Calzada MD - 07/01/2024 [...] 2. Left shoulder focal calcific tendinosis, unchanged. [facility] Radiology Study observation (narrative) [facility] XR Shoulder - left 2 ViewsOr dered By: Nuno Calzada on 07-01-2024 [facility] Work Phone: XR HIP BILATERAL W AP [...] Jaja Weaver MD 06/17/24 Final result Normal [facility] Comment on above: Order Comment: Reaso n for exam:->hip pain XR Pelvis and Hip - bilatera l Viewson 06-17-2024 No acute abnormality of the pelvis. [facility] EXAMINATION: ONE XRAY VIEW OF THE PELVIS AND TWO XRAY VIEWS OF EACH OF THE BILATERAL HIPS 06/17/2024 4:56 am COMPARISON: None. HISTORY: ORDERING SYSTEM PROVIDED HISTORY: hip pain TECHNOLOGIST PROVIDED HISTORY: Reason for exam:->hip pain FINDINGS: No evidence of pelvic fracture. Bilateral hips demonstrate normal alignment. No focal osseous lesion. SI joints are symmetric. [facility] Jaja Weaver MD - 06/17/2024 EXAMINATION: [...] IMPRESSION: No acute abnormality of the pelvis. [facility] Radiology Study observation (narrative) [facility] - bilatera l ViewsOrdered By: Jaja Weaver on 06-17-2024 [facility] [employer] Work Phone: CBC with Auto Differentialon 06-10-2024 Basophils (Bld) [#/Vol] 0.02 10*3/uL [facility] Basophils/100 WBC (Bld) 0 % 0.0 - 2.0 % [facility] Eosinophils (Bld) [#/Vol] 0.01 10*3/uL Low [facility] Eosinophils/100 WBC (Bld) 0 % 0 - 6 % [facility] Erythrocyte distribution width (RBC) [Ratio] 13.1 % 11.5 - 15.0 % [facility] Hematocrit (Bld) [Volume fraction] 40.6 % 34.0 - 48.0 % [facility] Hemoglobin (Bld) [Mass/Vol] 14.1 g/dL 11.5 - 15.5 g/dL [facility] Immature granulocytes (Bld) [#/Vol] 0.18 10*3/uL [facility] Immature granulocytes/100 WBC (Bld) 2 % 0.0 - 5.0 % [facility] Interpretation and review of laboratory results Abnormal [facility] Lymphocytes/100 WBC (Bld) 18 % Low 20.0 - 42.0 % [facility] Lymphocytes/100 WBC (Bld) 1.52 % [facility] MCH (RBC) [Entitic mass] 31.4 pg 26.0 - 35.0 pg [facility] MCHC (RBC) [Mass/Vol] 34.7 g/dL High 32.0 - 34.5 g/dL [facility] MCV (RBC) [Entitic vol] 90.4 fL 80.0 - 99.9 fL [facility] Monocytes/100 WBC (Bld) 10 % 2.0 - 12.0 % [facility] Monocytes/100 WBC (Bld) 0.87 % [facility] Neutrophils/100 WBC (Bld) 69 % 43.0 - 80.0 % [facility] Platelet mean volume (Bld) [Entitic vol] 7.7 fL 7.0 - 12.0 fL [facility] Platelets (Bld) [#/Vol] 352 10*3/uL [facility] RBC (Bld) [#/Vol] 4.49 10*6/uL 3.50 - 5.5 0 m/uL [facility] Segmented neutrophils/100 WBC (Bld) 5.88 % [facility] WBC other (Bld) [#/Vol] 8.5 [facility] CBC with Diffon 06-10-2024 Abs. Basophil 0.02 k/uL Normal 0.00-0.20 [facility] Comment on above: Performed By: #### C ADILENE GALLEGO TROPI #### [place] [address] [employer] Worker: Darci Castle MD Abs.Imm.Granulocyte 0.18 k/uL Normal 0.00-0.58 [facility] Comment on above: Performed By: #### C ADILENE GALLEGO TROPI #### [place] [address] [employer] Worker: Darci Castle MD Abs.Neutrophil (Seg) 5.88 k/uL Normal 1.80-7.30 [facility] Comment on above: Performed By: #### C ADILENE GALLEGO, TROPI #### [place] [address] [employer] Worker: Darci Castle MD Basophils/100 WBC (Bld) 0 % Normal 0.0-2.0 [facility] Comment on above: Performed By: #### C ADILENE GALLEGO, TROPI #### [place] [address] [employer] Worker: Darci Castle MD Eosinophils (Bld) [#/Vol] 0.01 10*3/uL Low 0.05-0.50 [facility] Comment on above: Performed By: #### C ADILENE GALLEGO, TROPI #### [place] [address] [employer] Worker: Darci Castle MD Eosinophils/100 WBC (Bld) 0 % Normal 0-6 [facility] Comment on above: Performed By: #### Maximino GALLEGO CP, TROPI #### [place] [address] [employer] Worker: Darci Castle MD Erythrocyte distribution width (RBC) [Ratio] 13.1 % Normal 11.5-15.0 [facility] Comment on above: Performed By: #### Maximino GALLEGO CP, TROPI #### [place] [address] [employer] Worker: Darci Castle MD Hematocrit (Bld) [Volume fraction] 40.6 % Normal 34.0-48.0 [facility] Comment on above: Performed By: #### Maximino GALLEGO CP, TROPI #### [place] [address] [employer] Worker: Darci Castle MD Hemoglobin (Bld) [Mass/Vol] 14.1 g/dL Normal 11.5-15.5 [facility] Comment on above: Performed By: #### C NORASHAMA, CP, TROPI #### [address] [place] [address] [employer] Worker: Darci Castle MD Immature granulocytes/100 WBC (Bld) 2 % Normal 0.0-5.0 [facility] Comment on above: Performed By: #### C LASHONDA, CP, TROPI #### [address] [place] [address] [employer] Worker: Darci Castle MD Lymphocytes (Bld) [#/Vol] 1.52 10*3/uL Normal 1.50-4.00 [facility] Comment on above: Performed By: #### C LASHONDA, CP, TROPI #### [address] [place] [address] [employer] Worker: Darci Castle MD Lymphocytes/100 WBC (Bld) 18 % Low 20.0-42.0 [facility] Comment on above: Performed By: #### C LASHONDA, CP, TROPI #### [address] [place] [address] [employer] Worker: Darci Castle MD MCH (RBC) [Entitic mass] 31.4 pg Normal 26.0-35.0 [facility] Comment on above: Performed By: #### C LASHONDA, CP, TROPI #### [address] [place] [id number] [employer] Worker: Darci Castle MD MCHC (RBC) [Mass/Vol] 34.7 g/dL High 32.0-34.5 [facility] Comment on above: Performed By: #### C LASHONDA, CP, TROPI #### [address] [place] [address] [employer] Worker: Darci Castle MD MCV (RBC) [Entitic vol] 90.4 fL Normal 80.0-99.9 [facility] Comment on above: Performed By: #### C ADILENE GALLEGO, TROPI #### [address] [place] [address] [employer] Worker: Darci Castle MD Monocytes (Bld) [#/Vol] 0.87 10*3/uL Normal 0.10-0.95 [facility] Comment on above: Performed By: #### C ADILENE GALLEGO, TROPI #### [address] [address] [employer] Worker: Darci Castle MD Monocytes/100 WBC (Bld) 10 % Normal 2.0-12.0 [facility] Comment on above: Performed By: #### C ADIELNE GALLEGO, TROPI #### [address] [address] [employer] Worker: Darci Castle MD Neutrophil (Seg) 69 % Normal 43.0-80.0 [facility] Comment on above: Performed By: #### C ADILENE GALLEGO, TROPI #### [address] [address] [employer] Worker: Darci Castle MD Platelet mean volume (Bld) [Entitic vol] 7.7 fL Normal 7.0-12.0 [facility] Comment on above: Performed By: #### C LASHONDA, ADILENE, TROPI #### [address] [place] [address] [employer] Worker: Darci Castle MD Platelets (Bld) [#/Vol] 352 10*3/uL Normal 130-450 [facility] Comment on above: Performed By: #### C LASHONDA, ADILENE, TROPI #### [place] [address] [facility] [address] [place], [place] [address] [employer] Worker: Darci Castle MD RBC (Bld) [#/Vol] 4.49 10*6/uL Normal 3.50-5.50 [facility] Comment on above: Performed By: #### C LASHONDA, ADILENE, TROPI #### [place] [address] [facility] [address] [place], [place] [id number] [employer] Worker: Darci Castle MD WBC (Bld) [#/Vol] 8.5 10*3/uL Normal 4.5-11.5 [facility] Comment on above: Performed By: #### C LASHONDA, ADILENE, TROPI #### [address] [place], [place] [id number] [employer] Worker: Darci Castle MD [facility] 06-10-2024 Albumin [Mass/Vol] 4 g/dL 3.5 - 5.2 g/dL [facility] ALP [Catalytic activity/Vol] 98 U/L 35 - 104 U/L [facility] ALT [Catalytic activity/Vol] 17 U/L 0 - 32 U/L [facility] Anion gap [Moles/Vol] 10 mmol/L 7 - 16 mmol/L [facility] AST [Catalytic activity/Vol] 17 U/L 0 - 31 U/L [facility] Bilirubin [Mass/Vol] 0.2 mg/dL 0.0 - 1 .2 mg/dL [facility] Calcium [Mass/Vol] 9.5 mg/dL 8.6 - 10. 2 mg/dL [facility] Chloride [Moles/Vol] 103 mmol/L 98 - 10 7 mmol/L [facility] CO2 [Moles/Vol] 27 mmol/L 22 - 29 mmol/L [facility] Creatinine [Mass/Vol] 0.7 mg/dL 0.50 - 1.00 mg/dL [facility] Est, Glom Filt Rate - PINF [facility] Comment on above: These results are not [...] [Mass/Vol] 87 mg/dL 74 - 99 mg/dL [facility] [employer] Potassium [Moles/Vol] 3.7 mmol/L 3.5 - 5.0 mmol/L [facility] Protein [Mass/Vol] 7.1 g/dL 6.4 - 8.3 g/dL [facility] Sodium [Moles/Vol] 140 mmol/L 132 - 146 mmol/L [facility] Urea nitrogen [Mass/Vol] 13 mg/dL 6 - 20 mg/dL [facility] CT LUMBAR SPINE WO CONTRASTo n 06-10-2024 [...] Siddhartha Vazquez MD 06/10/24 Final result Normal [facility] Comment on above: Order Comment: Reaso n for exam:->acute on chronic painDecision Support Exception - unselect if not a suspected or confirmed emergency medical condition->Emergency Medical Condition (MA) CT Lumbar spine WO contrasto n 06-10-2024 1. No acute fracture or malalignment of the lumbar spine. 2. New focal alveolar consolidation in the posteromedial left lung costophrenic angle. Consider pneumonia. [facility] EXAMINATION: CT OF THE LUMBAR [...] mildly distended with fluid. Kidneys appear normal. [facility] Siddhartha Vazquez MD - 06/10/2024 EXAMINATION: CT OF THE [...] posteromedial left lung costophrenic angle. Consider pneumonia. [facility] Radiology Study observation (narrative) [facility] CT Lumbar spine WO contrastO rdered By: Siddhartha Vazquez on 06-10-2024 [facility] Work Phone: Comp Metabolic Profon 2024 Albumin [Mass/Vol] 4.0 g/dL Normal 3.5-5.2 [facility] Comment on above: Performed By: #### C ADILENE GALLEGO, TROPI #### [facility] [address] [facility] [place] [address] [employer] Worker: Darci Castle MD Alkaline Phos 98 U/L Normal 35-104 [facility] Comment on above: Performed By: #### C ADILENE GALLEGO, TROPI #### [facility] [address] [place] [address] [employer] Worker: Darci Caslte MD ALT [Catalytic activity/Vol] 17 U/L Normal 0-32 [facility] Comment on above: Performed By: #### C ADILENE GALLEGO, TROPI #### [facility] [address] [facility] [place] [address] [employer] Worker: Darci Castle MD Anion gap [Moles/Vol] 10 mmol/L Normal 7-16 [facility] Comment on above: Performed By: #### C BCWD, CP, TROPI #### [facility] [address] [place] [address] [employer] Worker: Darci Castle MD AST [Catalytic activity/Vol] 17 U/L Normal 0-31 [facility] Comment on above: Performed By: #### C BCWD, CP, TROPI #### [address] [place] [address] [employer] Worker: Darci Castle MD Bilirubin [Mass/Vol] 0.2 mg/dL Normal 0.0-1.2 [facility] Comment on above: Performed By: #### C BCSHAMA, CP, TROPI #### [place] [address] [facility] [place] [address] [employer] Worker: Darci Castle MD Calcium [Mass/Vol] 9.5 mg/dL Normal 8.6-10.2 [facility] Comment on above: Performed By: #### C BCWD, CP, TROPI #### [address] [place] [address] [employer] Worker: Darci Castle MD Chloride [Moles/Vol] 103 mmol/L Normal 98-107 [facility] Comment on above: Performed By: #### C BCSHAMA, CP, TROPI #### [facility] [address] [place] [address] [employer] Worker: Darci Castle MD CO2 [Moles/Vol] 27 mmol/L Normal 22-29 [facility] Comment on above: Performed By: #### C BCWD, CP, TROPI #### [address] [place] [address] [employer] Worker: Darci Castle MD Creatinine [Mass/Vol] 0.7 mg/dL Normal 0.50-1.00 [facility] Comment on above: Performed By: #### C ADILENE GALLEGO TROPI #### [address] [place] [address] [employer] Worker: Darci Castle MD GFR/1.73 sq M.predicted among non-blacks MDRD (S/P/Bld) [Vol rate/Area] mL/min/{1.73_m2} Normal >60 [facility] Comment on above: Result Comment: These results [...] renal tubular secretion. Performed By: #### C ADILENE GALLEGO TROPI #### [address] [place] [address] [employer] Worker: Darci Castle MD Glucose [Mass/Vol] 87 mg/dL Normal 74-99 [facility] Comment on above: Performed By: #### Maximino GALLEGO CP TROPI #### [address] [place] [address] [employer] Worker: Darci Castle MD Potassium [Moles/Vol] 3.7 mmol/L Normal 3.5-5.0 [facility] Comment on above: Performed By: #### C ADILENE GALLEGO TROPI #### [address] [address] [employer] Worker: Darci Castle MD Protein [Mass/Vol] 7.1 g/dL Normal 6.4-8.3 [facility] Comment on above: Performed By: #### C ADILENE GALLEGO, TROPI #### [address] [place] [address] [employer] Worker: Darci Castle MD Sodium [Moles/Vol] 140 mmol/L Normal 132-146 [facility] Comment on above: Performed By: #### C ADILENE GALLEGO, TROPI #### [address] [place] [address] [employer] Worker: Darci Castle MD Urea nitrogen [Mass/Vol] 13 mg/dL Normal 6-20 [facility] Comment on above: Performed By: #### Maximino GALLEGO CP, TROPI #### [address] [place] [address] [employer] Worker: Darci Castle MD HCG Screen, Urineon 06-11-19 25 Beta HCG ( test) Ql (U) Negative Normal NEG [facility] Comment on above: Result Comment: Test results should always be evaluated with all available clinical data. If a urine sample is too dilute, it may not contain a customer service representative teacher urinary hCG concentration. If a negative result is obtained and is still suspected, a first morning sample should be obtained and tested. Performed By: #### Maximino GALLEGO CP TROPI #### [address] [place] [address] [employer] Worker: Darci Castle MD Magnesiumon 06-10-2024 Magnesium [Mass/Vol] 2.1 mg/dL 1.6 - 2 .6 mg/dL [facility] Magnesium [Mass/Vol] 2.1 mg/dL Normal 1.6-2.6 [facility] Comment on above: Performed By: #### C ADILENE GALLEGO, TROPI #### [address] [place] [address] [employer] Worker: Darci Castle MD No Panel Informationon 06-10 [facility] Portable XR Chest AP single viewon 06-10-2024 1. No acute cardiopulmonary disease. 2. Resolution of the previously seen moderate focal area of consolidation of the lingula. [facility] EXAMINATION: ONE XRAY VIEW OF [...] normal in appearance for the patient's age. [facility] Manish Gandara MD - 06/10/2024 [...] focal area of consolidation of the lingula. [facility] Radiology Study observation (narrative) [facility] Portable XR Chest AP single viewOrdered By: Manish Gandara on 06-10-2024 [facility] Work Phone: , urineon 04-09-202 5 HCG ( test) Ql (U) Negative NEGATIVE [facility] Comment on above: Test results should always be evaluated with all available clinical data. If a urine sample is too dilute, it may not contain a customer service representative teacher urinary hCG concentration. If a negative result is obtained and is still suspected, a first morning sample should be obtained and tested. Troponinon 06-10-2024 Troponin I.cardiac High sensitivity method [Mass/Vol] ng/L 0 - 9 ng/L [facility] Comment on above: High Sensitivity Troponin values cannot be compared with other Troponin methodologies. Patients with high levels of Biotin oral intake (i.e >5mg/day) may have falsely decreased Troponin levels. Samples collected within 8 hours of biotin intake may require additional information for diagnosis. [facility] Troponin, High Sens <6 Normal 0-9 [facility] Comment on above: Result Comment: High Sensitivity Troponin values cannot be compared with other Troponin methodologies. Patients with high levels of Biotin oral intake (i.e >5mg/day) may have falsely decreased Troponin levels. Samples collected within 8 hours of biotin intake may require additional information for diagnosis. Performed By: #### C BCWD, CP, TROPI #### [place] [address] [place] [address] [employer] Worker: Darci Castle MD XR CHEST PORTABLEon 06-11-19 [...] Manish Gandara MD 06/10/24 Final result Normal [facility] Comment on above: Order Comment: Reaso n [...] Manish Gandara MD 06/10/24 Final result Normal [facility] Comment on above: Order Comment: Reaso n for exam:->fall XR Hip - right 2 Viewson Normal examination o f the right hip. [facility] CON[facility] EXAMINATION: TWO XRAY VIEWS OF [...] and soft tissues are normal in appearance. [facility] Manish Gandara MD - 06/10/2024 [...] IMPRESSION: Normal examination of the right hip. [facility] Radiology Study observation (narrative) [facility] BASIC METABOLIC PANELon 04-0 CALCIUM,TOTAL 10.5 md/dL High 8.7-10.4 [facility] Comment on above: Performed By: #### B MP, HS TROP I, MG, CBCD ####[facility] [address] [place] [address] Chloride [Moles/Vol] 102 mmol/L Normal 98-107 [facility] Comment on above: Performed By: #### B MP, HS TROP I, MG, CBCD ####[facility] [address] [place] [address] CO2 [Moles/Vol] 26 mmol/L Normal 20-31 [facility] Comment on above: Performed By: #### B MP, HS TROP I, MG, CBCD ####[facility] [address] [place] [address] Creatinine [Mass/Vol] 0.66 mg/dL Normal 0.55-1.02 [facility] Comment on above: Performed By: #### B MP, HS TROP I, MG, CBCD ####[facility] [address] [place] [address] EST GLOM FILT > 60 Normal [facility] Comment on above: Result Comment: Result Units: [...] B MP, HS TROP I, MG, CBCD ####[facility] [address] [place] [address] ESTIMATED GLOM FILT RATE > 60 Normal [facility] Comment on above: Performed By: #### B MP, HS TROP I, MG, CBCD ####[facility] [address] [place] [address] Glucose [Mass/Vol] 92 mg/dL Normal 65-99 [facility] Comment on above: Performed By: #### B MP, HS TROP I, MG, CBCD ####[facility] [address] [place] [address] Potassium [Moles/Vol] 3.2 mmol/L Low 3.4-5.1 [facility] Comment on above: Performed By: #### B MP, HS TROP I, MG, CBCD ####[facility] [address] [place] [address] Sodium [Moles/Vol] 137 mmol/L Normal 136-145 [facility] Comment on above: Performed By: #### B MP, HS TROP I, MG, CBCD ####[facility] [address] [place] [address] Urea nitrogen [Mass/Vol] 9 mg/dL Normal 9-23 [facility] Comment on above: Performed By: #### B MP, HS TROP I, MG, CBCD ####[facility] [address] [place] [address] CBC with DIFFERENTIALon 04-0 -2024 Basophils (Bld) [#/Vol] 0.0 10*3/uL Normal 0.0-0.1 [facility] Comment on above: Performed By: #### B MP, HS TROP I, MG, CBCD ####[facility] [address] [place] [address] Basophils/100 WBC (Bld) 0.2 % Normal 0.0-1.0 [facility] Comment on above: Performed By: #### B MP, HS TROP I, MG, CBCD ####[facility] [address] [place] [address] Eosinophils (Bld) [#/Vol] 0.0 10*3/uL Normal 0.0-0.4 [facility] Comment on above: Performed By: #### B MP, HS TROP I, MG, CBCD ####[facility] [address] [place] [address] Eosinophils/100 WBC (Bld) 0.1 % Low 1.0-4.0 [facility] Comment on above: Performed By: #### B MP, HS TROP I, MG, CBCD ####[facility] [address] [place] [address] Hematocrit (Bld) [Volume fraction] 39.9 % Normal 37.0-47.0 [facility] Comment on above: Performed By: #### B MP, HS TROP I, MG, CBCD ####[facility] [address] [place] [address] Hemoglobin (Bld) [Mass/Vol] 13.8 g/dL Normal 12.0-16.0 [facility] Comment on above: Performed By: #### B MP, HS TROP I, MG, CBCD ####[facility] [address] [place] [address] IG # 0.1 10*3/uL Normal 0.0-0.1 [facility] Comment on above: Performed By: #### B MP, HS TROP I, MG, CBCD ####[facility] [address] [place] [address] IG % 0.9 % Normal 0.0-1.0 [facility] Comment on above: Performed By: #### B MP, HS TROP I, MG, CBCD ####[facility] [address] [place] [address] Lymphocytes (Bld) [#/Vol] 1.9 10*3/uL Normal 1.3-4.4 [facility] Comment on above: Performed By: #### B MP, HS TROP I, MG, CBCD ####[facility] [address] [place] [address] Lymphocytes/100 WBC (Bld) 14.8 % Low 27.0-41.0 [facility] Comment on above: Performed By: #### B MP, HS TROP I, MG, CBCD ####[facility] [address] [place] [address] MCV (RBC) [Entitic vol] 91.1 fL Normal 81.0-99.0 [facility] Comment on above: Performed By: #### B MP, HS TROP I, MG, CBCD ####[facility] [address] [place] [address] MEAN CORPUSCULAR HGB 31.5 pg High 27.0-31.0 [facility] Comment on above: Performed By: #### B MP, HS TROP I, MG, CBCD ####[facility] [address] [place] [address] MEAN CORPUSCULAR HGB CONC 34.6 g/dl Normal 33.0-37.0 [facility] Comment on above: Performed By: #### B MP, HS TROP I, MG, CBCD ####[facility] [address] [place] [address] Monocytes (Bld) [#/Vol] 0.7 10*3/uL Normal 0.1-1.0 [facility] Comment on above: Performed By: #### B MP, HS TROP I, MG, CBCD ####[facility] [address] [place] [address] Monocytes/100 WBC (Bld) 5.4 % Normal 3.0-9.0 [facility] Comment on above: Performed By: #### B MP, HS TROP I, MG, CBCD ####[facility] [address] [place] [address] Neutrophils (Bld) [#/Vol] 9.8 10*3/uL High 2.3-7.9 [facility] Comment on above: Performed By: #### B MP, HS TROP I, MG, CBCD ####[facility] [address] [place] [address] Neutrophils/100 WBC (Bld) 78.6 % High 47.0-73.0 [facility] Comment on above: Performed By: #### B MP, HS TROP I, MG, CBCD ####[facility] [address] [place] [address] NUCLEATED RED BLOOD CELL 0.0 10*3/uL Normal 0.0-0.0 [facility] Comment on above: Performed By: #### B MP, HS TROP I, MG, CBCD ####[facility] [address] [place] [address] NUCLEATED RED BLOOD CELL 0.0 % Normal 0.0-0.0 [facility] Comment on above: Performed By: #### B MP, HS TROP I, MG, CBCD ####[facility] [address] [place] [address] PLATELET COUNT AUTOMATED 369 10*3/uL Normal 130-400 [facility] Comment on above: Performed By: #### B MP, HS TROP I, MG, CBCD ####[facility] [address] [place] [address] Platelet mean volume (Bld) [Entitic vol] 7.9 fL Low 9.6-12.3 [facility] Comment on above: Performed By: #### B MP, HS TROP I, MG, CBCD ####[facility] [address] [place] [address] RBC (Bld) [#/Vol] 4.38 10*6/uL Normal 4.10-5.10 [facility] Comment on above: Performed By: #### B MP, HS TROP I, MG, CBCD ####[facility] [address] [place] [address] RED CELL DISTRI WIDTH 12.9 % Normal 0-14.5 [facility] Comment on above: Performed By: #### B MP, HS TROP I, MG, CBCD ####[facility] [address] [place] [address] WBC (Bld) [#/Vol] 12.5 10*3/uL High 4.8-10.8 [facility] Comment on above: Performed By: #### B MP, HS TROP I, MG, CBCD ####[facility] [address] [place] [address] CHEST AP ONLY (1 V)on 2024 [id number] Name: DB DOAN Phys: BELLO ALARCON MD : 1970 Age: 54 Sex: F Acct: [id number] Loc: ED Exam Date: 06/07/2024 Status: REG ER Radiology No: [id number] Unit No: [id number] EXAM# TYPE/EXAM RESULT [id number] EDRAD/CHEST AP ONLY (1 V) SEE REPORT INDICATION: Chest pain. TECHNIQUE: Frontal chest was obtained at 8:15 hours. COMPARISON: XR chest 04/23/2023 FINDINGS: The cardiomediastinal silhouette is normal in size. There is no consolidation or atelectasis in either lung. There are no pleural effusions. There is no pneumothorax. No acute osseous process. IMPRESSION: No acute cardiopulmonary abnormality. Signed by Yovanny Addison MD [place] [address] [place] [id number] REPORT SIGNED IN OTHER VENDOR SYSTEM 06/07/2024 Reported By: YOVANYN ADDISON MD CC: MARIA ELENA MONTALVO Technologist: ROCIO POOLE Transcribed Date/Time: 06/07/2024 (826) Center Mgr: BRUCE Printed Date/Time: 06/07/2024 (826) PAGE 1 Signed Report Normal [facility] ELECTROCARDIOGRAM REPORTon 0 06-07-2024 [employer] Watcher Report [place], [place] ELECTROCARDIOGRAM REPORT NAME: DB DOAN UNIT #: [id number] ROOM: DOCTOR: EPIPHANY DRAFT REPORT BIRTHDATE: [birth year] [facility] Test Date: 2024-06-07 Test Time: 08:11:11 Pat Name: DB DOAN Department: ED Room: Gender: Female 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: NYASIAKatelynDW1 : 1970 Requested By: BELLO ALARCON Order Number: [id number] Reading MD: Measurements Intervals [place] Rate: 82 P: 78 CA: 155 QRS: 4 QRSD: 98 T: 51 QT: 406 QTc: 475 Interpretive Statements Sinus rhythm Probable left atrial enlargement RSR' in V1 or V2, probably normal variant CM:EKGRPT:ELECTROCARDIO GRAM REPORT 0 2 BELLO ALARCON MD [facility] BELLO ALARCON MD Normal [facility] HS TROPONIN Ion 06-07-2024 HS TROPONIN I 4 ng/L Normal 0-34 [facility] Comment on above: Result Comment: Inte rpretation [...] B MP, HS TROP I, MG, CBCD ####[facility] [address] [place] [address] MAGNESIUMon 06-07-2024 Magnesium [Mass/Vol] 2.3 mg/dL Normal 1.6-2.6 [facility] Comment on above: Performed By: #### B MP, HS TROP I, MG, CBCD ####[facility] [address] [place] [address] Brain Natri. Peptideon 06-05 Natriuretic peptide B (Bld) [Mass/Vol] 54 pg/mL Normal 0-125 [facility] Comment on above: Result Comment: An a ge-independent cutoff point of 300 pg/ml has a 98% negative predictive value excluding acute heart failure. Performed By: #### C BCWD, CP, TROPI #### [facility] [address] [place] [address] [employer] Worker: Darci Castle MD Brain Natriuretic Peptideon 06-05-2024 Natriuretic peptide B (Bld) [Mass/Vol] 54 pg/mL 0 - 125 pg/mL [facility] Comment on above: An age-independent c utoff point of 300 pg/ml has a 98% negative predictive value excluding acute heart failure. CBC with Auto Differentialon 06-05-2024 Basophils (Bld) [#/Vol] 0.01 10*3/uL [facility] Basophils/100 WBC (Bld) 0 % 0.0 - 2.0 % [facility] Eosinophils (Bld) [#/Vol] 0 10*3/uL Low [facility] Eosinophils/100 WBC (Bld) 0 % 0 - 6 % [facility] Erythrocyte distribution width (RBC) [Ratio] 13.2 % 11.5 - 15.0 % [facility] Hematocrit (Bld) [Volume fraction] 36.4 % 34.0 - 48.0 % [facility] Hemoglobin (Bld) [Mass/Vol] 12.6 g/dL 11.5 - 15.5 g/dL [facility] Immature granulocytes (Bld) [#/Vol] 0.09 10*3/uL [facility] Immature granulocytes/100 WBC (Bld) 1 % 0.0 - 5.0 % [facility] Interpretation and review of laboratory results Abnormal [facility] Lymphocytes/100 WBC (Bld) 11 % Low 20.0 - 42.0 % [facility] Lymphocytes/100 WBC (Bld) 1.16 % Low [facility] MCH (RBC) [Entitic mass] 31.5 pg 26.0 - 35.0 pg [facility] MCHC (RBC) [Mass/Vol] 34.6 g/dL High 32.0 - 34.5 g/dL [facility] MCV (RBC) [Entitic vol] 91 fL 80.0 - 99.9 fL [facility] Monocytes/100 WBC (Bld) 10 % 2.0 - 12.0 % [facility] Monocytes/100 WBC (Bld) 0.98 % High [facility] Neutrophils/100 WBC (Bld) 78 % 43.0 - 80.0 % [facility] Platelet mean volume (Bld) [Entitic vol] 8.1 fL 7.0 - 12.0 fL [facility] Platelets (Bld) [#/Vol] 345 10*3/uL [facility] RBC (Bld) [#/Vol] 4 10*6/uL 3.50 - 5.5 0 m/uL [facility] Segmented neutrophils/100 WBC (Bld) 8 % High [facility] WBC other (Bld) [#/Vol] 10.2 [facility] CBC with Diffon 06-05-2024 Abs. Basophil 0.01 k/uL Normal 0.00-0.20 [facility] Comment on above: Performed By: #### C BCADILENE SESAY, TROPI #### [place] [address] [employer] Worker: Darci Castle MD Abs.Imm.Granulocyte 0.09 k/uL Normal 0.00-0.58 [facility] Comment on above: Performed By: #### C ADILENE GALLEGO, TROPI #### [place] [address] [employer] Worker: Darci Castle MD Abs.Neutrophil (Seg) 8.00 k/uL High 1.80-7.30 [facility] Comment on above: Performed By: #### C ADILENE GALLEGO, TROPI #### [place] [address] [employer] Worker: Darci Castle MD Basophils/100 WBC (Bld) 0 % Normal 0.0-2.0 [facility] Comment on above: Performed By: #### Maximino GALLEGO CP, TROPI #### [place] [address] [employer] Worker: Darci Castle MD Eosinophils (Bld) [#/Vol] 0.00 10*3/uL Low 0.05-0.50 [facility] Comment on above: Performed By: #### Maximino GALLEGO CP, TROPI #### [place] [address] [employer] Worker: Darci Castle MD Eosinophils/100 WBC (Bld) 0 % Normal 0-6 [facility] Comment on above: Performed By: #### Maximino GALLEGO CP, TROPI #### [place] [address] [employer] Worker: Darci Castle MD Erythrocyte distribution width (RBC) [Ratio] 13.2 % Normal 11.5-15.0 [facility] Comment on above: Performed By: #### C LASHONDA, CP, TROPI #### [address] [place] [address] [employer] Worker: Darci Castle MD Hematocrit (Bld) [Volume fraction] 36.4 % Normal 34.0-48.0 [facility] Comment on above: Performed By: #### C LASHONDA, CP, TROPI #### [address] [place] [address] [employer] Worker: Darci Castle MD Hemoglobin (Bld) [Mass/Vol] 12.6 g/dL Normal 11.5-15.5 [facility] Comment on above: Performed By: #### C LASHONDA, CP, TROPI #### [address] [place] [address] [employer] Worker: Darci Castle MD Immature granulocytes/100 WBC (Bld) 1 % Normal 0.0-5.0 [facility] Comment on above: Performed By: #### C LASHONDA, CP, TROPI #### [address] [place] [address] [employer] Worker: Darci Castle MD Lymphocytes (Bld) [#/Vol] 1.16 10*3/uL Low 1.50-4.00 [facility] Comment on above: Performed By: #### C LASHONDA, CP, TROPI #### [address] [place] [address] [employer] Worker: Darci Castle MD Lymphocytes/100 WBC (Bld) 11 % Low 20.0-42.0 [facility] Comment on above: Performed By: #### C LASHONDA, CP, TROPI #### [address] [place] [address] [employer] Worker: Darci Castle MD MCH (RBC) [Entitic mass] 31.5 pg Normal 26.0-35.0 [facility] Comment on above: Performed By: #### C ADILENE GALLEGO, TROPI #### [address] [place] [address] [employer] Worker: Darci Castle MD MCHC (RBC) [Mass/Vol] 34.6 g/dL High 32.0-34.5 [facility] Comment on above: Performed By: #### C ADLIENE GALLEGO, TROPI #### [address] [place] [address] [employer] Worker: Darci Castle MD MCV (RBC) [Entitic vol] 91.0 fL Normal 80.0-99.9 [facility] Comment on above: Performed By: #### Maximino GALLEGO CP, TROPI #### [address] [place] [address] [employer] Worker: Darci Castle MD Monocytes (Bld) [#/Vol] 0.98 10*3/uL High 0.10-0.95 [facility] Comment on above: Performed By: #### Maximino GALLEGO CP, TROPI #### [address] [place] [address] [employer] Worker: Darci Castle MD Monocytes/100 WBC (Bld) 10 % Normal 2.0-12.0 [facility] Comment on above: Performed By: #### Maximino GALLEGO CP, TROPI #### [address] [place] [address] [employer] Worker: Darci Castle MD Neutrophil (Seg) 78 % Normal 43.0-80.0 [facility] Comment on above: Performed By: #### C ADILENE GALLEGO, TROPI #### [address] [place] [address] [employer] Worker: Darci Castle MD Platelet mean volume (Bld) [Entitic vol] 8.1 fL Normal 7.0-12.0 [facility] Comment on above: Performed By: #### C ADILENE GALLEGO, TROPI #### [address] [place] [address] [employer] Worker: Darci Castle MD Platelets (Bld) [#/Vol] 345 10*3/uL Normal 130-450 [facility] Comment on above: Performed By: #### C ADILENE GALLEGO, TROPI #### [address] [place] [address] [employer] Worker: Darci Castle MD RBC (Bld) [#/Vol] 4.00 10*6/uL Normal 3.50-5.50 [facility] Comment on above: Performed By: #### C ADILENE GALLEGO, TROPI #### [address] [place] [address] [employer] Worker: Darci Castle MD WBC (Bld) [#/Vol] 10.2 10*3/uL Normal 4.5-11.5 [facility] Comment on above: Performed By: #### C ADILENE GALLEGO, TROPI #### [address] [place] [address] [employer] Worker: Daric Catsle MD [facility] Albumin [Mass/Vol] 4.3 g/dL 3.5 - 5.2 g/dL [facility] ALP [Catalytic activity/Vol] 112 U/L High 35 - 104 U/L [facility] ALT [Catalytic activity/Vol] 16 U/L 0 - 32 U/L [facility] Anion gap [Moles/Vol] 14 mmol/L 7 - 16 mmol/L [facility] AST [Catalytic activity/Vol] 13 U/L 0 - 31 U/L [facility] Bilirubin [Mass/Vol] 0.2 mg/dL 0.0 - 1 .2 mg/dL [facility] Calcium [Mass/Vol] 9.5 mg/dL 8.6 - 10. 2 mg/dL [facility] Chloride [Moles/Vol] 99 mmol/L 98 - 10 7 mmol/L [facility] CO2 [Moles/Vol] 22 mmol/L 22 - 29 mmol/L [facility] Creatinine [Mass/Vol] 0.6 mg/dL 0.50 - 1.00 mg/dL [facility] Shannon Valdez Rate - PINF [facility] Comment on above: These results are not [...] 105 mg/dL High 74 - 99 mg/dL [facility] Interpretation and review of laboratory results Abnormal [facility] Potassium [Moles/Vol] 3.9 mmol/L 3.5 - 5.0 mmol/L [facility] Protein [Mass/Vol] 6.8 g/dL 6.4 - 8.3 g/dL [facility] Sodium [Moles/Vol] 135 mmol/L 132 - 146 mmol/L [facility] Urea nitrogen [Mass/Vol] 7 mg/dL 6 - 20 mg/dL [facility] COVID-19 & Influenza Comboon 06-05-2024 FLUAV RNA KESHA+probe Ql (Resp) Not detected Not Detected [facility] FLUBV RNA KESHA+probe Ql (Resp) Not detected Not Detected [facility] SARS-CoV-2 (COVID-19) RNA KESHA+probe Ql (Resp) Not detected Not Detected [facility] Comment on above: Testing was performed [...] and epidemiological information. Fact sheet for Patients: https://www.fda.gov/media/686901/download Fact sheet for Healthcare Providers: https://www.fda.gov/media/243117/download Source .NASOPHARYNGEAL SWAB [facility] Specimen Description .NASOPHARYNGEAL SWAB [facility] Comp Metabolic Profon 2024 Albumin [Mass/Vol] 4.3 g/dL Normal 3.5-5.2 [facility] Comment on above: Performed By: #### C ADILENE GALLEGO, TROPI #### [place] [address] [employer] Worker: Darci Castle MD Alkaline Phos 112 U/L High 35-104 [facility] Comment on above: Performed By: #### C ADILENE GALLEGO TROPI #### [place] [address] [employer] Worker: Darci Castle MD ALT [Catalytic activity/Vol] 16 U/L Normal 0-32 [facility] Comment on above: Performed By: #### C ADILENE GALLEGO, TROPI #### [place] [id number] [employer] Worker: Darci Castle MD Anion gap [Moles/Vol] 14 mmol/L Normal 7-16 [facility] Comment on above: Performed By: #### C BCSHAMA, CP, TROPI #### [address] [place] [address] [employer] Worker: Darci Castle MD AST [Catalytic activity/Vol] 13 U/L Normal 0-31 [facility] Comment on above: Performed By: #### C LASHONDA, CP, TROPI #### [address] [place] [address] [employer] Worker: Darci Castle MD Bilirubin [Mass/Vol] 0.2 mg/dL Normal 0.0-1.2 [facility] Comment on above: Performed By: #### C BCSHAMA, CP, TROPI #### [address] [place] [address] [employer] Worker: Darci Castle MD Calcium [Mass/Vol] 9.5 mg/dL Normal 8.6-10.2 [facility] Comment on above: Performed By: #### C LASHONDA, CP, TROPI #### [address] [place] [address] [employer] Worker: Darci Castle MD Chloride [Moles/Vol] 99 mmol/L Normal 98-107 [facility] Comment on above: Performed By: #### C LASHONDA, CP, TROPI #### [address] [place] [address] [employer] Worker: Darci Castle MD CO2 [Moles/Vol] 22 mmol/L Normal 22-29 [facility] Comment on above: Performed By: #### C BCSHAMA, CP, TROPI #### [address] [place] [address] [employer] Worker: Darci Castle MD Creatinine [Mass/Vol] 0.6 mg/dL Normal 0.50-1.00 [facility] Comment on above: Performed By: #### Maximino GALLEGO CP TROPI #### [address] [place] [address] [employer] Worker: Darci Castle MD GFR/1.73 sq M.predicted among non-blacks MDRD (S/P/Bld) [Vol rate/Area] mL/min/{1.73_m2} Normal >60 [facility] Comment on above: Result Comment: These results [...] renal tubular secretion. Performed By: #### C ADILENE GALLEGO TROPI #### [address] [place] [address] [employer] Worker: Darci Castle MD Glucose [Mass/Vol] 105 mg/dL High 74-99 [facility] Comment on above: Performed By: #### Maximino GALLEGO CP TROPI #### [address] [address] [employer] Worker: Darci Castle MD Potassium [Moles/Vol] 3.9 mmol/L Normal 3.5-5.0 [facility] Comment on above: Performed By: #### Maximino GALLEGO CP TROPI #### [address] [place] [address] [employer] Worker: Darci Castle MD Protein [Mass/Vol] 6.8 g/dL Normal 6.4-8.3 [facility] Comment on above: Performed By: #### C ADILENE GALLEGO TROPI #### [facility] [address] [place] [address] [employer] Worker: Darci Castle MD Sodium [Moles/Vol] 135 mmol/L Normal 132-146 [facility] Comment on above: Performed By: #### C ADILENE GALLEGO, TROPI #### [address] [place] [address] [employer] Worker: Darci Castle MD Urea nitrogen [Mass/Vol] 7 mg/dL Normal 6-20 [facility] Comment on above: Performed By: #### C ADILENE GALLEGO, TROPI #### [address] [place] [address] [employer] Worker: Darci Castle MD D-Dimer, Quantitativeon 04- D-Dimer, Quant [facility] Comment on above: D-DIMER Interpretation: <230 ng/mL (D-DU) Indicates low probability for PE/DVT >= 4000/ng/mL (D-DU) This level could suggest the presence of DIC. Clinical correlation may be helpful. [facility] D-Dimer,Quantitativeon 06-05 D-dimer <200 Normal 0-230 [facility] Comment on above: Result Comment: D-DIMER Interpretation: <230 ng/mL (D-DU) Indicates low probability for PE/DVT >= 4000/ng/mL (D-DU) This level could suggest the presence of DIC. Clinical correlation may be helpful. Performed By: #### C ADILENE GALLEGO, TROPI #### [address] [place] [address] [employer] Worker: Darci Castel MD Magnesiumon 06-05-2024 Magnesium [Mass/Vol] 2.1 mg/dL 1.6 - 2 .6 mg/dL [facility] Magnesium [Mass/Vol] 2.1 mg/dL Normal 1.6-2.6 [facility] Comment on above: Performed By: #### C ADILENE GALLEGO, TROPI #### [address] [place] [address] [employer] Worker: Darci Castle MD No Panel Informationon 06-05 [facility] SARS-CoV-2 + Flu A/[facility] 06-05 Influenza A, RT-PCR Not detected Normal [facility] Comment on above: Performed By: #### C ADILENE GALLEGO, TROPI #### [address] [place] [address] [employer] Worker: Darci Castle MD Influenza B, RT-PCR Not detected Normal [facility] Comment on above: Performed By: #### C ADILENE GALLEGO, TROPI #### [address] [place] [address] [employer] Worker: Darci Castle MD SARS-CoV-2 (COVID-19) RNA KESHA+probe Ql (Unsp spec) Not detected Normal [facility] Comment on above: Result Comment: Testing [...] and epidemiological information. Fact sheet for Patients: https://www.fda.gov/media/012106/download Fact sheet for Healthcare Providers: https://www.fda.gov/media/343829/download Performed By: #### C LASHONDA, ADILENE, TROPI #### [address] [place] [address] [employer] Worker: Darci Castle MD Source .NASOPHARYNGEAL SWAB Normal [facility] Comment on above: Performed By: #### C BCWD, CP, TROPI #### [address] [address] [employer] Worker: Darci Castle MD Troponinon 06-05-2024 Troponin I.cardiac High sensitivity method [Mass/Vol] 6 ng/L 0 - 9 ng/L [facility] Comment on above: High Sensitivity Troponin values cannot be compared with other Troponin methodologies. Patients with high levels of Biotin oral intake (i.e >5mg/day) may have falsely decreased Troponin levels. Samples collected within 8 hours of biotin intake may require additional information for diagnosis. Troponin, High Sens 6 ng/L Normal 0-9 [facility] Comment on above: Result Comment: High Sensitivity Troponin values cannot be compared with other Troponin methodologies. Patients with high levels of Biotin oral intake (i.e >5mg/day) may have falsely decreased Troponin levels. Samples collected within 8 hours of biotin intake may require additional information for diagnosis. Performed By: #### C VFLU #### [facility] [address] [place] [id number] [employer] Worker: Liseth Doran MD Brain Natri. Peptideon 06-03 Natriuretic peptide B (Bld) [Mass/Vol] 166 pg/mL High 0-125 [facility] Comment on above: Result Comment: An a ge-independent cutoff point of 300 pg/ml has a 98% negative predictive value excluding acute heart failure. Performed By: #### U A, RADHA #### [address] [address] [employer] Worker: Darci Castle MD Brain Natriuretic Peptideon 06-03-2024 Natriuretic peptide B (Bld) [Mass/Vol] 166 pg/mL High 0 - 125 pg/mL [facility] Comment on above: An age-independent c utoff point of 300 pg/ml has a 98% negative predictive value excluding acute heart failure. CBC with Auto Differentialon 06-03-2024 Basophils (Bld) [#/Vol] 0.03 10*3/uL [facility] Basophils/100 WBC (Bld) 0 % 0.0 - 2.0 % [facility] Eosinophils (Bld) [#/Vol] 0.04 10*3/uL Low [facility] Eosinophils/100 WBC (Bld) 0 % 0 - 6 % [facility] Erythrocyte distribution width (RBC) [Ratio] 13.2 % 11.5 - 15.0 % [facility] Hematocrit (Bld) [Volume fraction] 41.5 % 34.0 - 48.0 % [facility] Hemoglobin (Bld) [Mass/Vol] 14.7 g/dL 11.5 - 15.5 g/dL [facility] Immature granulocytes (Bld) [#/Vol] 0.06 10*3/uL [facility] Immature granulocytes/100 WBC (Bld) 1 % 0.0 - 5.0 % [facility] Interpretation and review of laboratory results Abnormal [facility] Lymphocytes/100 WBC (Bld) 17 % Low 20.0 - 42.0 % [facility] Lymphocytes/100 WBC (Bld) 1.95 % [facility] MCH (RBC) [Entitic mass] 31.6 pg 26.0 - 35.0 pg [facility] MCHC (RBC) [Mass/Vol] 35.4 g/dL High 32.0 - 34.5 g/dL [facility] MCV (RBC) [Entitic vol] 89.2 fL 80.0 - 99.9 fL [facility] Monocytes/100 WBC (Bld) 9 % 2.0 - 12.0 % [facility] Monocytes/100 WBC (Bld) 1.05 % High [facility] Neutrophils/100 WBC (Bld) 72 % 43.0 - 80.0 % [facility] Platelet mean volume (Bld) [Entitic vol] 7.9 fL 7.0 - 12.0 fL [facility] Platelets (Bld) [#/Vol] 374 10*3/uL [facility] RBC (Bld) [#/Vol] 4.65 10*6/uL 3.50 - 5.5 0 m/uL [facility] Segmented neutrophils/100 WBC (Bld) 8.1 % High [facility] WBC other (Bld) [#/Vol] 11.2 [facility] CBC with Diffon 06-03-2024 Abs. Basophil 0.03 k/uL Normal 0.00-0.20 [facility] Comment on above: Performed By: #### U A, RADHA #### [place] [address] [employer] Worker: Darci Castle MD Abs.Imm.Granulocyte 0.06 k/uL Normal 0.00-0.58 [facility] Comment on above: Performed By: #### U A, RADHA #### [place] [address] [employer] Worker: Darci Castle MD Abs.Neutrophil (Seg) 8.10 k/uL High 1.80-7.30 [facility] Comment on above: Performed By: #### U A, RADHA #### [place] [address] [employer] Worker: Darci Castle MD Basophils/100 WBC (Bld) 0 % Normal 0.0-2.0 [facility] Comment on above: Performed By: #### U A, RADHA #### [place] [address] [employer] Worker: Darci Castle MD Eosinophils (Bld) [#/Vol] 0.04 10*3/uL Low 0.05-0.50 [facility] Comment on above: Performed By: #### U A, RADHA #### [address] [place] [address] [employer] Worker: Darci Castle MD Eosinophils/100 WBC (Bld) 0 % Normal 0-6 [facility] Comment on above: Performed By: #### U A, RADHA #### [address] [place] [address] [employer] Worker: Darci Castle MD Erythrocyte distribution width (RBC) [Ratio] 13.2 % Normal 11.5-15.0 [facility] Comment on above: Performed By: #### U A, RADHA #### [address] [place] [address] [employer] Worker: Darci Castle MD Hematocrit (Bld) [Volume fraction] 41.5 % Normal 34.0-48.0 [facility] Comment on above: Performed By: #### U A, RADHA #### [address] [place] [address] [employer] Worker: Darci Castle MD Hemoglobin (Bld) [Mass/Vol] 14.7 g/dL Normal 11.5-15.5 [facility] Comment on above: Performed By: #### U A, RADHA #### [address] [place] [address] [employer] Worker: Darci Castle MD Immature granulocytes/100 WBC (Bld) 1 % Normal 0.0-5.0 [facility] Comment on above: Performed By: #### U A, RADHA #### [address] [place] [address] [employer] Worker: Darci Castle MD Lymphocytes (Bld) [#/Vol] 1.95 10*3/uL Normal 1.50-4.00 [facility] Comment on above: Performed By: #### U A, RADHA #### [address] [place] [address] [employer] Worker: Darci Castle MD Lymphocytes/100 WBC (Bld) 17 % Low 20.0-42.0 [facility] Comment on above: Performed By: #### U A, RADHA #### [place] [address] [employer] Worker: Darci Castle MD MCH (RBC) [Entitic mass] 31.6 pg Normal 26.0-35.0 [facility] Comment on above: Performed By: #### U A, RADHA #### [place] [address] [employer] Worker: Darci Castle MD MCHC (RBC) [Mass/Vol] 35.4 g/dL High 32.0-34.5 [facility] Comment on above: Performed By: #### U A, RADHA #### [place] [address] [employer] Worker: Darci Castle MD MCV (RBC) [Entitic vol] 89.2 fL Normal 80.0-99.9 [facility] Comment on above: Performed By: #### U A, RADHA #### [place] [address] [employer] Worker: Darci Castle MD Monocytes (Bld) [#/Vol] 1.05 10*3/uL High 0.10-0.95 [facility] Comment on above: Performed By: #### U A, RADHA #### [place] [address] [employer] Worker: Darci Castle MD Monocytes/100 WBC (Bld) 9 % Normal 2.0-12.0 [facility] Comment on above: Performed By: #### U A, RADHA #### [address] [place] [address] [employer] Worker: Darci Castle MD Neutrophil (Seg) 72 % Normal 43.0-80.0 [facility] Comment on above: Performed By: #### U A, RADHA #### [place] [address] [employer] Worker: Darci Castle MD Platelet mean volume (Bld) [Entitic vol] 7.9 fL Normal 7.0-12.0 [facility] Comment on above: Performed By: #### U A, RADHA #### [place] [address] [employer] Worker: Darci Castle MD Platelets (Bld) [#/Vol] 374 10*3/uL Normal 130-450 [facility] Comment on above: Performed By: #### U A, RADHA #### [address] [place] [address] [employer] Worker: Darci Castle MD RBC (Bld) [#/Vol] 4.65 10*6/uL Normal 3.50-5.50 [facility] Comment on above: Performed By: #### U A, RADHA #### [place] [address] [employer] Worker: Darci Castle MD WBC (Bld) [#/Vol] 11.2 10*3/uL Normal 4.5-11.5 [facility] Comment on above: Performed By: #### U A, RADHA #### [place] [address] [employer] Worker: Darci Castle MD [facility] 06-03-2024 Albumin [Mass/Vol] 4.7 g/dL 3.5 - 5.2 g/dL [facility] ALP [Catalytic activity/Vol] 125 U/L High 35 - 104 U/L [facility] ALT [Catalytic activity/Vol] 16 U/L 0 - 32 U/L [facility] Anion gap [Moles/Vol] 16 mmol/L 7 - 16 mmol/L [facility] AST [Catalytic activity/Vol] 19 U/L 0 - 31 U/L [facility] Bilirubin [Mass/Vol] 0.4 mg/dL 0.0 - 1 .2 mg/dL [facility] Calcium [Mass/Vol] 10.2 mg/dL 8.6 - 10. 2 mg/dL [facility] Chloride [Moles/Vol] 96 mmol/L Low 98 - 10 7 mmol/L [facility] CO2 [Moles/Vol] 25 mmol/L 22 - 29 mmol/L [facility] Creatinine [Mass/Vol] 0.6 mg/dL 0.50 - 1.00 mg/dL [facility] Est, Glom Jean Claudet Rate - PINF [facility] Comment on above: These results are not [...] [Mass/Vol] 88 mg/dL 74 - 99 mg/dL [facility] Potassium [Moles/Vol] 3 mmol/L Low 3.5 - 5.0 mmol/L [facility] Protein [Mass/Vol] 7.8 g/dL 6.4 - 8.3 g/dL [facility] Sodium [Moles/Vol] 137 mmol/L 132 - 146 mmol/L [facility] Urea nitrogen [Mass/Vol] 13 mg/dL 6 - 20 mg/dL [facility] COVID-19 & Influenza Comboon 06-03-2024 FLUAV RNA KESHA+probe Ql (Resp) Not detected Not Detected [facility] FLUBV RNA KESHA+probe Ql (Resp) Not detected Not Detected [facility] SARS-CoV-2 (COVID-19) RNA KESHA+probe Ql (Resp) Not detected Not Detected [facility] Comment on above: Testing was performed [...] and epidemiological information. Fact sheet for Patients: https://www.fda.gov/media/354035/download Fact sheet for Healthcare Providers: https://www.fda.gov/media/632403/download Source .NASOPHARYNGEAL SWAB [facility] Specimen Description .NASOPHARYNGEAL SWAB [facility] CTA PULMONARY W CONTRASTon 0 06-03-2024 CTA [...] Stanford Barger DO 06/03/24 Final result Normal [facility] Comment on above: Order Comment: Reaso n [...] Benign (v2022) Management: 12 month screening LDCT [facility] CONSOLIDATED EXAMINATION: CTA OF THE CHEST 06/03/2024 [...] No acute bone or soft tissue abnormality. [facility] Stanford Henry DO - 06/03/2024 EXAMINATION: CTA OF THE [...] Benign (v2022) Management: 12 month screening LDCT [facility] Radiology Study observation (narrative) [facility] CTA Pulmonary arteries W con trast IVOrdered By: Stanford Barger on 06-03-2024 [facility] Work Phone: Comp Metabolic Profon 2024 Albumin [Mass/Vol] 4.7 g/dL Normal 3.5-5.2 [facility] Comment on above: Performed By: #### U A, RADHA #### [place] [address] [place] [address] [employer] Worker: Darci Castle MD Alkaline Phos 125 U/L High 35-104 [facility] Comment on above: Performed By: #### U A, RADHA #### [address] [place] [address] [employer] Worker: Darci Castle MD ALT [Catalytic activity/Vol] 16 U/L Normal 0-32 [facility] Comment on above: Performed By: #### U A, RADHA #### [address] [place] [address] [employer] Worker: Darci Castle MD Anion gap [Moles/Vol] 16 mmol/L Normal 7-16 [facility] Comment on above: Performed By: #### U A, RADHA #### [address] [place] [address] [employer] Worker: Darci Castle MD AST [Catalytic activity/Vol] 19 U/L Normal 0-31 [facility] Comment on above: Performed By: #### U A, RADHA #### [address] [place] [address] [employer] Worker: Darci Castle MD Bilirubin [Mass/Vol] 0.4 mg/dL Normal 0.0-1.2 [facility] Comment on above: Performed By: #### U A, RADHA #### [address] [place] [address] [employer] Worker: Darci Castle MD Calcium [Mass/Vol] 10.2 mg/dL Normal 8.6-10.2 [facility] Comment on above: Performed By: #### U A, RADHA #### [address] [place] [address] [employer] Worker: Darci Castle MD Chloride [Moles/Vol] 96 mmol/L Low 98-107 [facility] Comment on above: Performed By: #### U A, RADHA #### [address] [place] [address] [employer] Worker: Darci Castle MD CO2 [Moles/Vol] 25 mmol/L Normal 22-29 [facility] Comment on above: Performed By: #### U A, RADHA #### [place] [address] [employer] Worker: Darci Castle MD Creatinine [Mass/Vol] 0.6 mg/dL Normal 0.50-1.00 [facility] Comment on above: Performed By: #### U A, RADHA #### [address] [place] [address] [employer] Worker: Darci Castle MD GFR/1.73 sq M.predicted among non-blacks MDRD (S/P/Bld) [Vol rate/Area] mL/min/{1.73_m2} Normal >60 [facility] Comment on above: Result Comment: These results [...] affects renal tubular secretion. Performed By: #### U A, RADHA #### [address] [place] [address] [employer] Worker: Darci Castle MD Glucose [Mass/Vol] 88 mg/dL Normal 74-99 [facility] Comment on above: Performed By: #### U A, RADHA #### [address] [place] [address] [employer] Worker: Darci Castle MD Potassium [Moles/Vol] 3.0 mmol/L Low 3.5-5.0 [facility] Comment on above: Performed By: #### U A, RADHA #### [address] [address] [employer] Worker: Darci Castle MD Protein [Mass/Vol] 7.8 g/dL Normal 6.4-8.3 [facility] Comment on above: Performed By: #### U A, RADHA #### [address] [place] [address] [employer] Worker: Darci Castle MD Sodium [Moles/Vol] 137 mmol/L Normal 132-146 [facility] Comment on above: Performed By: #### U A, RADHA #### [address] [place] [address] [employer] Worker: Darci Castle MD Urea nitrogen [Mass/Vol] 13 mg/dL Normal 6-20 [facility] Comment on above: Performed By: #### U A, RADHA #### [address] [place] [address] [employer] Worker: Darci Castle MD D-Dimer, Quantitativeon 04-0 D-Dimer, Quant 273 [facility] Comment on above: D-DIMER Interpretation: <230 ng/mL (D-DU) Indicates low probability for PE/DVT >= 4000/ng/mL (D-DU) This level could suggest the presence of DIC. Clinical correlation may be helpful. Interpretation and review of laboratory results Abnormal [facility] D-Dimer,Quantitativeon 06-03 D-dimer 273 ng/mL DDU High 0-230 [facility] Comment on above: Result Comment: D-DIMER Interpretation: <230 ng/mL (D-DU) Indicates low probability for PE/DVT >= 4000/ng/mL (D-DU) This level could suggest the presence of DIC. Clinical correlation may be helpful. Performed By: #### U A, RADHA #### [place] [address] [place], [place] [id number] [employer] Worker: Darci Castle MD HCG Screen, Urineon 06-04-19 25 Beta HCG ( test) Ql (U) Negative Normal NEG [facility] Comment on above: Result Comment: Test results should always be evaluated with all available clinical data. If a urine sample is too dilute, it may not contain a customer service representative teacher urinary hCG concentration. If a negative result is obtained and is still suspected, a first morning sample should be obtained and tested. Performed By: #### H CGUB #### [facility] [address] [place] [address] [employer] Worker: Liseth Doran MD No Panel Informationon 06-03 Interpretation and review of laboratory results Abnormal [facility] , urineon 5 HCG ( test) Ql (U) Negative NEGATIVE [facility] Comment on above: Test results should always be evaluated with all available clinical data. If a urine sample is too dilute, it may not contain a customer service representative teacher urinary hCG concentration. If a negative result is obtained and is still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 11.5-15.5 [facility] Comment on above: Performed By: #### C BCSHAMA, CP, TROPI, DDIMER, BNP ####[place], [place] [id number])[phone] Director: Jewell Tse MD Immature granulocytes/100 WBC (Bld) 1 % Normal 0.0-5.0 [facility] Comment on above: Performed By: #### C BCWD, CP, TROPI, DDIMER, BNP ####[place] [address] Lab Director: Jewell Tse MD Lymphocytes (Bld) [#/Vol] 1.62 10*3/uL Normal 1.50-4.00 [facility] Comment on above: Performed By: #### C BCWD, CP, TROPI, DDIMER, BNP ####[place] [address] Lab Director: Jewell Tse MD Lymphocytes/100 WBC (Bld) 19 % Low 20.0-42.0 [facility] Comment on above: Performed By: #### C BCWD, CP, TROPI, DDIMER, BNP ####[place] [address] Lab Director: Jewell Tse MD MCH (RBC) [Entitic mass] 30.8 pg Normal 26.0-35.0 [facility] Comment on above: Performed By: #### C BCWD, CP, TROPI, DDIMER, BNP ####[place] [address] Lab Director: Jewell Tse MD MCHC (RBC) [Mass/Vol] 33.4 g/dL Normal 32.0-34.5 [facility] Comment on above: Performed By: #### C BCWD, CP, TROPI, DDIMER, BNP ####[place] [address] Lab Director: Jewell Tse MD MCV (RBC) [Entitic vol] 92.1 fL Normal 80.0-99.9 [facility] Comment on above: Performed By: #### C BCWD, CP, TROPI, DDIMER, BNP ####[place], [place] [address])[phone] Director: Jewell Tse MD Monocytes (Bld) [#/Vol] 0.55 10*3/uL Normal 0.10-0.95 [facility] Comment on above: Performed By: #### C BCWD, CP, TROPI, DDIMER, BNP ####[place], [place] [address])[phone] Director: Jewell Tse MD Monocytes/100 WBC (Bld) 7 % Normal 2.0-12.0 [facility] Comment on above: Performed By: #### C BCWD, CP, TROPI, DDIMER, BNP ####[place], [place] [address])[phone] Director: Jewell Tse MD Neutrophil (Seg) 73 % Normal 43.0-80.0 [facility] Comment on above: Performed By: #### C BCWD, CP, TROPI, DDIMER, BNP ####[place], [place] [address])[phone] Director: Jewell Tse MD Platelet mean volume (Bld) [Entitic vol] 7.9 fL Normal 7.0-12.0 [facility] Comment on above: Performed By: #### C BCSHAMA, CP, TROPI, DDIMER, BNP ####[place], [place] [address])[phone] Director: Jewell Tse MD Platelets (Bld) [#/Vol] 338 10*3/uL Normal 130-450 [facility] Comment on above: Performed By: #### C BCSHAMA, CP, TROPI, DDIMER, BNP ####[place], [place] [id number])[phone] Director: Jewell Tse MD RBC (Bld) [#/Vol] 4.45 10*6/uL Normal 3.50-5.50 [facility] Comment on above: Performed By: #### C BCWD, CP, TROPI, DDIMER, BNP ####[facility] [place] [address] lab Director: Jewell Tse MD WBC (Bld) [#/Vol] 8.3 10*3/uL Normal 4.5-11.5 [facility] Comment on above: Performed By: #### C BCWD, CP, TROPI, DDIMER, BNP ####[id number] [place] [address] lab Director: Jewell Tse MD [facility] Albumin [Mass/Vol] 4.2 g/dL 3.5 - 5.2 g/dL [facility] ALP [Catalytic activity/Vol] 73 U/L 35 - 104 U/L [facility] ALT [Catalytic activity/Vol] 16 U/L 0 - 32 U/L [facility] Anion gap [Moles/Vol] 13 mmol/L 7 - 16 mmol/L [facility] AST [Catalytic activity/Vol] 15 U/L 0 - 31 U/L [facility] Bilirubin [Mass/Vol] 0.4 mg/dL 0.0 - 1 .2 mg/dL [facility] Calcium [Mass/Vol] 9.5 mg/dL 8.6 - 10. 2 mg/dL [facility] Chloride [Moles/Vol] 101 mmol/L 98 - 10 7 mmol/L [facility] CO2 [Moles/Vol] 25 mmol/L 22 - 29 mmol/L [facility] Creatinine [Mass/Vol] 0.6 mg/dL 0.50 - 1.00 mg/dL [facility] Est, Glom Filt Rate - PINF [facility] Comment on above: These results are not [...] 116 mg/dL High 74 - 99 mg/dL [facility] Interpretation and review of laboratory results Abnormal [facility] Potassium [Moles/Vol] 4.0 mmol/L 3.5 - 5.0 mmol/L [facility] Protein [Mass/Vol] 7.1 g/dL 6.4 - 8.3 g/dL [facility] Sodium [Moles/Vol] 139 mmol/L 132 - 146 mmol/L [facility] Urea nitrogen [Mass/Vol] 15 mg/dL 6 - 20 mg/dL [facility] Comp Metabolic Profon 2024 Albumin [Mass/Vol] 4.2 g/dL Normal 3.5-5.2 [facility] Comment on above: Performed By: #### C LASHONDA, CP, TROPI, DDIMER, BNP ####[place], [place] [address])[phone] Director: Jewell Tse MD Alkaline Phos 73 U/L Normal 35-104 [facility] Comment on above: Performed By: #### C LASHONDA, CP, TROPI, DDIMER, BNP ####[place], [place] [address])[phone] Director: Jewell Tse MD ALT [Catalytic activity/Vol] 16 U/L Normal 0-32 [facility] Comment on above: Performed By: #### C LASHONDA, CP, TROPI, DDIMER, BNP ####[place] [phone] Director: Jewell Tse MD Anion gap [Moles/Vol] 13 mmol/L Normal 7-16 [facility] Comment on above: Performed By: #### C LASHONDA, CP, TROPI, DDIMER, BNP ####[place] [address] Lab Director: Jewell Tse MD AST [Catalytic activity/Vol] 15 U/L Normal 0-31 [facility] Comment on above: Performed By: #### C BCWD, CP, TROPI, DDIMER, BNP ####[address] [phone])[phone] Director: Jewell Tse MD Bilirubin [Mass/Vol] 0.4 mg/dL Normal 0.0-1.2 [facility] Comment on above: Performed By: #### C BCWD, CP, TROPI, DDIMER, BNP ####[address] [address] [facility] Director: Jewell Tse MD Calcium [Mass/Vol] 9.5 mg/dL Normal 8.6-10.2 [facility] Comment on above: Performed By: #### C BCWD, CP, TROPI, DDIMER, BNP ####[address] [phone] Director: Jewell Tse MD Chloride [Moles/Vol] 101 mmol/L Normal 98-107 [facility] Comment on above: Performed By: #### C BCWD, CP, TROPI, DDIMER, BNP ####[address] [phone] Director: Jewell Tse MD CO2 [Moles/Vol] 25 mmol/L Normal 22-29 [facility] Comment on above: Performed By: #### C BCWD, CP, TROPI, DDIMER, BNP ####[address] [phone] Director: Jewell Tse MD Creatinine [Mass/Vol] 0.6 mg/dL Normal 0.50-1.00 [facility] Comment on above: Performed By: #### C BCWD, CP, TROPI, DDIMER, BNP ####[place] [address] Lab Director: Jewell Tse MD GFR/1.73 sq M.predicted among non-blacks MDRD (S/P/Bld) [Vol rate/Area] mL/min/{1.73_m2} Normal >60 [facility] Comment on above: Result Comment: These [...] renal tubular secretion. Performed By: #### C LASHONDA, CP, TROPI, DDIMER, BNP ####[place] [address] Lab Director: Jewell Tse MD Glucose [Mass/Vol] 116 mg/dL High 74-99 [facility] Comment on above: Performed By: #### C LASHONDA, CP, TROPI, DDIMER, BNP ####[place] [address] Lab Director: Jewell Tse MD Potassium [Moles/Vol] 4.0 mmol/L Normal 3.5-5.0 [facility] Comment on above: Performed By: #### C LASHONDA, CP, TROPI, DDIMER, BNP ####[place] [phone] Lab Director: Jewell Tse MD Protein [Mass/Vol] 7.1 g/dL Normal 6.4-8.3 [facility] Comment on above: Performed By: #### C LASHONDA, CP, TROPI, DDIMER, BNP ####[place] [phone] Lab Director: Jewell Tse MD Sodium [Moles/Vol] 139 mmol/L Normal 132-146 [facility] Comment on above: Performed By: #### C LASHONDA, CP, TROPI, DDIMER, BNP ####[address] [address] lab Director: Jewell Tse MD Urea nitrogen [Mass/Vol] 15 mg/dL Normal 6-20 [facility] Comment on above: Performed By: #### C LASHONDA, CP, TROPI, DDIMER, BNP ####[address] [address] lab Director: Jewell Tse MD D-Dimer, Quantitativeon 03-0 D-Dimer, Quant [facility] Comment on above: D-DIMER Interpretation: <230 ng/mL (D-DU) Indicates low probability for PE/DVT >= 4000/ng/mL (D-DU) This level could suggest the presence of DIC. Clinical correlation may be helpful. [facility] D-Dimer,Quantitativeon 05-02 D-dimer <200 Normal 0-230 [facility] Comment on above: Result Comment: D-DIMER Interpretation: <230 ng/mL (D-DU) Indicates low probability for PE/DVT >= 4000/ng/mL (D-DU) This level could suggest the presence of DIC. Clinical correlation may be helpful. Performed By: #### C LASHONDA, ADILENE, TROPI, DDIMER, BNP ####[address] [address] Lab Director: Jewell Tse MD No Panel Informationon 05-02 [facility] Portable XR Chest AP single viewon 05-02-2024 No acute process. [facility] EXAMINATION: ONE XRAY VIEW OF THE CHEST 05/02/2024 4:41 am COMPARISON: 04/20/2024 HISTORY: ORDERING SYSTEM PROVIDED HISTORY: pleurisy TECHNOLOGIST PROVIDED HISTORY: Reason for exam:->pleurisy FINDINGS: The lungs are without acute focal process. There is no effusion or pneumothorax. The cardiomediastinal silhouette is without acute process. The osseous structures are without acute process. [facility] Jaja Weaver MD - 05/02/2024 EXAMINATION: ONE XRAY VIEW OF THE CHEST 05/02/2024 4:41 am COMPARISON: 04/20/2024 HISTORY: ORDERING SYSTEM PROVIDED HISTORY: pleurisy TECHNOLOGIST PROVIDED HISTORY: Reason for exam:->pleurisy FINDINGS: The lungs are without acute focal process. There is no effusion or pneumothorax. The cardiomediastinal silhouette is without acute process. The osseous structures are without acute process. IMPRESSION: No acute process. [facility] Radiology Study observation (narrative) [employer] Portable XR Chest AP single viewOrdered By: Jaja Weaver on 05-02-2024 [facility] Work Phone: Troponinon 05-02-2024 Troponin I.cardiac High sensitivity method [Mass/Vol] 7 ng/L 0 - 9 ng/L [facility] [employer] Comment on above: High Sensitivity Troponin values cannot be compared with other Troponin methodologies. Patients with high levels of Biotin oral intake (i.e >5mg/day) may have falsely decreased Troponin levels. Samples collected within 8 hours of biotin intake may require additional information for diagnosis. Troponin, High Sens 7 ng/L Normal 0-9 [facility] Comment on above: Result Comment: High Sensitivity Troponin values cannot be compared with other Troponin methodologies. Patients with high levels of Biotin oral intake (i.e >5mg/day) may have falsely decreased Troponin levels. Samples collected within 8 hours of biotin intake may require additional information for diagnosis. Performed By: #### C BCWD, CP, TROPI, DDIMER, BNP ####[facility] [place] [address] [facility] Director: Jewell Tse MD XR [...] Jaja Weaver MD 05/02/24 Final result Normal [facility] Comment on above: Order Comment: Reaso n for exam:->pleurisy ED Nursing Noteon 04-29-2024 ED Nursing Note Discharge paperwork completed. Pt verbalized understanding regarding follow-up care. Normal [facility] ED Provider Noteon ED Provider Note EMERGENCY DEPARTMENT ENCOUNTER Pt Name: Db Doan Birthdate 1970 Date of evaluation: 04/29/2024 ED Provider: Jan Smith DO CHIEF COMPLAINT Chief Complaint Patient presents with Back Pain Lower back pain, pt states she has a torn rotator cuff injury and is now having increased pain HISTORY OF PRESENT ILLNESS (Location/Symptom, Timing/Onset, Context/Setting, Quality, Duration, Modifying Factors, Severity) Note limiting factors. I wore appropriate PPE for the entirety of this encounter. HPI Db Doan is a 54 y.o. who presents to the emergency department for left shoulder pain and low back pain. Patient has a history of torn rotator cuff on the left. 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 She states the incident happened yesterday. Patient follows with orthopedic surgery and is supposed to do physical therapy prior to MRI. She states that previous injury improved with physical therapy and [id number] medications. Patient stating that her low back pain is from compensation from her torn rotator cuff and remote history of back fracture. She endorses chronic nausea issues requesting Zofran. Patient requesting 10 mg of oxycodone for her chronic pain is not prescribed opiates. She also states that she needs refills on other controlled medications. She denies any fevers recent spine instrumentation incontinence of bowel or bladder saddle anesthesia or trauma to her back. Patient able to ambulate without issue. 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 Limitations to history: Outside historians: REVIEW OF SYSTEMS Review of Systems Pertinent positives and negatives as per HPI PAST MEDICAL HISTORY Past Medical History: Diagnosis Date H/O section Incomplete tear of left rotator cuff Sciatica Seizures (HCC) Spinal stenosis SURGICAL HISTORY Past Surgical History: Procedure Laterality Date HERNIA REPAIR CURRENT MEDICATIONS Discharge Medication List as of 04/29/2024 4:18 AM CONTINUE these medications which have NOT CHANGED Details DULoxetine (Cymbalta) [address] capsule Take 60 mg by mouth daily. Do not crush or chew., Historical Med lamoTRIgine (LaMICtal) 25 MG tablet Take 150 mg by mouth daily., Historical Med methocarbamol (Robaxin) 500 MG tablet Take 1 tablet (500 mg) by mouth 2 times daily for 10 days., Starting Sat09/21/2022, Until Sat10/01/2022, Print ALLERGIES Patient has no known allergies. FAMILY HISTORY No family history on file. SOCIAL HISTORY Social History Socioeconomic History Marital status: Single Tobacco Use Smoking status: Some Days Types: Cigarettes Smokeless tobacco: Never Vaping Use Vaping status: Never Used Substance and Sexual Activity Alcohol use: Never Drug use: Never Social Drivers of Health Financial Resource Strain: Low Risk (11/01/2022) Received from [facility] Overall Financial Resource Strain (CARDIA) Difficulty of Paying Living Expenses: Not very hard Food Insecurity: No Food Insecurity (10/23/2023) Received from Hunger Vital Sign Worried About Running Out of Food in the Last Year: Never true Ran Out of Food in the Last Year: Never true Transportation Needs: No Transportation Needs (10/23/2023) Received from PRAPARE - Transportation Lack of Transportation (Medical): No Lack of Transportation (Non-Medical): No Housing Stability: Unknown (10/23/2023) Received from Housing Stability Vital Sign Unable to Pay for Housing in the Last Year: No Homeless in the Last Year: No PHYSICAL EXAM ED Triage Vitals [04/29/24 0337] Temp Heart Rate Resp BP 36.6 ?C (97.8 ?F) 97 18 124/86 SpO2 Temp Source Heart Rate Source Patient Position 99 % Temporal Monitor -- BP Location FiO2 (%) -- -- Physical Exam Vitals and nursing note reviewed. Constitutional: General: She is not in acute distress. Appearance: She is not toxic-appearing. HENT: Head: Normocephalic and atraumatic. Mouth/Throat: Pharynx: Oropharynx is clear. Eyes: Conjunctiva/sclera: Conjunctivae normal. Pupils: Pupils are equal, round, and reactive to light. Cardiovascular: Rate and Rhythm: Normal rate and regular rhythm. Pulmonary: Effort: Pulmonary effort is normal. Breath sounds: Normal breath sounds. Abdominal: Tenderness: There is no abdominal tenderness. There is no right CVA tenderness, left CVA tenderness, guarding or rebound. Musculoskeletal: General: Normal range of motion. Comments: High Sensitivity Neuro Exam Spine L1 through S5 grossly intact without any neuro deficits. Patient has normal sensation in thigh denying saddle anesthesia. Normal bladder and bowel control without retention. Able to ambulate with normal gate (more content not included)... Normal [facility] Portable XR Chest AP single viewon 04-20-2024 No acute process. No significant interval change. [facility] EXAMINATION: ONE XRAY VIEW OF THE CHEST 04/20/2024 2:45 pm COMPARISON: March 12, 2024 HISTORY: ORDERING SYSTEM PROVIDED HISTORY: cough TECHNOLOGIST PROVIDED HISTORY: Reason for exam:->cough FINDINGS: The lungs are without acute focal process. There is no effusion or pneumothorax. The cardiomediastinal silhouette is without acute process. The osseous structures are without acute process. [facility] Tapan Tyler MD - 04/20/2024 [...] No acute process. No significant interval change. [facility] Radiology Study observation (narrative) [facility] Portable XR Chest AP single viewOrdered By: Tapan Tyler on 04-20-2024 [facility] Work Phone: XR CHEST PORTABLEon 04-20-19 [...] Tapan Tyler MD 04/20/24 Final result Normal [facility] Comment on above: Order Comment: Reaso n [...] Ismael Hurst DO 04/20/24 Final result Normal [facility] Comment on above: Order Comment: Reaso n for exam:->injury,pain XR Shoulder - left 2 Viewson 04-20-2024 1. No evidence of shoulder fracture or dislocation. 2. Calcifications are seen along superolateral margin of proximal humerus likely related to chronic calcific tendinitis. [facility] EXAMINATION: THREE XRAY VIEWS OF THE LEFT SHOULDER 04/20/2024 2:28 pm COMPARISON: 03/12/2024. HISTORY: ORDERING SYSTEM PROVIDED HISTORY: injury,pain TECHNOLOGIST PROVIDED HISTORY: Reason for exam:->injury,pain FINDINGS: No fracture or dislocation of the shoulder. Acromioclavicular joint is intact. Calcifications are seen along superolateral margin of proximal humerus. [facility] Ismael Hurst DO - 04/20/2024 EXAMINATION: [...] humerus likely related to chronic calcific tendinitis. [facility] [employer] Radiology Study observation (narrative) [facility] XR Shoulder - left 2 ViewsOr dered By: Ismael Hurst on 04-20-2024 [facility] Work Phone: XR shoulder LT min 2Von XR shoulder LT min 2V [address] [phone] XRay Report Signed Patient: DB DOAN MR#: [id number] 32 : 1970 Acct:[id number] Age/Sex: 53 / F Admit Date: 04/12/24 Loc: ER Attending Dr: Ordering Physician: Siddahrtha Siddiqi DO Date of Service: 04/12/24 Procedure(s): XR shoulder LT min 2V Accession Number(s): [id number] cc: Siddhartha Siddiqi DO INDICATION: Left shoulder pain. TECHNIQUE: Four views of the left shoulder. COMPARISON: None Available. FINDINGS: There is moderate chronic degenerative arthrosis in the AC joint. No displaced fracture. The alignment is anatomic. No soft tissue abnormality is seen. 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 Signed by Yovanny Addison MD [address] [place], [place] [phone] Dictated By: Yovanny Addison DD/ 3 Signed By: Yovanny Addison 04/12/24843 Center Mgr: STACY 04/12/24843 [facility] ([place]) XR HIP RIGHT W/PELVIS 4 VIEW Son [...] Sign Date: 04/11/2024 9:28:58 AM Ordering Provider: [facility] XR SACRUM/COCCYX MINIMUM 2 V IEWS 04-11-2024 XR SACRUM/COCCYX MINIMUM 2 VIEWS ORIGINAL [...] Sign Date: 04/11/2024 9:30:58 AM Ordering Provider: [facility] XR SHOULDER MINIMUM 2 VIEWS LEFTon 04-11-2024 [...] 04/11/2024 9:26:10 AM Ordering Provider: JOCELYN ROA [facility] MAIN XR HIP 2-3 VW W PELVIS [...] Jimy Conner MD 04/07/24 Final result Normal [facility] Comment on above: Order Comment: Devon n for exam:->PAIN SHOULDER LEFT (MIN 2 V)on CRSHOUL Name: DB DOAN Phys: DEYSI NOLASCO JR, DO : 1970 Age: 53 Sex: F Acct: [id number] Loc: ED Exam Date: 04/06/2024 Status: REG ER Radiology No: [id number] Unit No: [id number] EXAM# TYPE/EXAM RESULT [id number] EDRAD/SHOULDER LEFT (MIN 2 V) SEE REPORT [...] calcific tendinitis. Signed by Bello Parker MD [facility] [address] [place] [address] REPORT SIGNED IN OTHER VENDOR SYSTEM 04/06/2024 Reported By: BELLO PARKER MD CC: MARIA ELENA MONTALVO Technologist: JASVIR WHITLEY Transcribed Date/Time: 04/06/2024 (0427) Center Mgr: BRUCE Printed Date/Time: 04/06/2024 (0427) PAGE 1 Signed Report [facility] CNPN Telephone (NSCAMN) DB DOAN ([id number]) 1970 F Date Time Provider Department 03/30/24 SELF NSCAMN During your visit today, we recorded the following information about you: Corona Blumystle 03/30/2024 12:01 PM Signed Records requested from [facility] 03/30 @ 11:58am 1. Circular Saw Filer: Who is requesting this appointment?patient 2. Circular Saw Filer: Please indicate the best contact information for our team to reach you with any questions/concerns we may have? cell 3. Circular Saw Filer: What is your diagnosis? Pituitary Tumor 4. Circular Saw Filer: Have you ever been seen at our center before? No 5. Circular Saw Filer: Is there a specific doctor you were referred to? No 6. Circular Saw Filer: What facility and/or hospital have you been seen at? [facility] Name of facility/name of provider where patient was treated. Dr. Maria Elena Montalvo 7. Circular Saw Filer: For this appointment, we will need to request a few records from you. This will help our triage team be able to select the best provider for your treatment. a. Please provide: Most recent MRI- spine/Brain (Circular Saw Filer will check CareEverywhere for records). 8. Circular Saw Filer: Where was your last imaging completed:[facility] March 2024(Ideally should be completed within the last six months). 9. Circular Saw Filer: Have you had any surgeries pertaining to this appointment? No If yes, please obtain pathology report. 10. Circular Saw Filer: Please allow up to 48-72 hours for our triage team to review your records. Once they reviewed your records, we will be in contact with you. a. Was the patient made aware of the turnaround time? Yes 11. Circular Saw Filer: Our department offers virtual visits depending on the provider you are recommended to see and the state that you live in. If able to schedule, would you like a virtual visit? Yes a. If answered yes: Does the patient have MyChart access: Yes If not, then crew scheduler will walk patient through getting access to [employer]. b. If no, Are you interested in [...] lesion Patient: Db Doan Address: Db Doan [id number] [place] [address] Per Triage: Db Doan is a 53 year old female that requests evaluation of previously diagnosed pituitary lesion. Patient expectations: New Consult Tumor Specifics: Location: pituitary Previous Evaluations: MRI w/wo contrast (03/08/24): @ [facility] 1. No evidence of acute intracranial [...] the 3rd time was sent to (Left VM With Appt details , Mailed Patient Appointment Reminder AND Sent [employer] Message) Kyle Bagley March 30, 2024 1:57 PM Aylin AshEfrainAtiya 04/01/2024 8:22 AM Addendum Requested images from [facility]'s Spk w [place]. DOS Requested 03/08/2024 Multiple [...] (HCC) [E23.7] Order(s):ESTRADIOL-17B BLD [SQE2] Order #: [id number] FUTURE PROLACTIN [SQPROL] Order #: [id number] FUTURE THYROID STIMULATING HORMONE [SQTSH] Order #: [id number] FU (more content not included)... Normal [facility] CBC with Auto Differentialon 03-29-2024 Basophils (Bld) [#/Vol] 0.01 10*3/uL [facility] Basophils/100 WBC (Bld) 0 % 0.0 - 2.0 % [facility] Eosinophils (Bld) [#/Vol] 0.00 10*3/uL Low [facility] Eosinophils/100 WBC (Bld) 0 % 0 - 6 % [facility] Erythrocyte distribution width (RBC) [Ratio] 12.7 % 11.5 - 15.0 % [facility] Hematocrit (Bld) [Volume fraction] 42.3 % 34.0 - 48.0 % [facility] Hemoglobin (Bld) [Mass/Vol] 14.0 g/dL 11.5 - 15.5 g/dL [facility] Immature granulocytes (Bld) [#/Vol] [facility] Immature granulocytes/100 WBC (Bld) 0 % 0.0 - 5.0 % [facility] Interpretation and review of laboratory results Abnormal [facility] Lymphocytes/100 WBC (Bld) 11 % Low 20.0 - 42.0 % [facility] Lymphocytes/100 WBC (Bld) 1.02 % Low [facility] MCH (RBC) [Entitic mass] 30.0 pg 26.0 - 35.0 pg [facility] MCHC (RBC) [Mass/Vol] 33.1 g/dL 32.0 - 34.5 g/dL [facility] MCV (RBC) [Entitic vol] 90.8 fL 80.0 - 99.9 fL [facility] Monocytes/100 WBC (Bld) 3 % 2.0 - 12.0 % [facility] Monocytes/100 WBC (Bld) 0.28 % [facility] Neutrophils/100 WBC (Bld) 86 % High 43.0 - 80.0 % [facility] Platelet mean volume (Bld) [Entitic vol] 8.1 fL 7.0 - 12.0 fL [facility] Platelets (Bld) [#/Vol] 375 10*3/uL [facility] RBC (Bld) [#/Vol] 4.66 10*6/uL 3.50 - 5.5 0 m/uL [facility] Segmented neutrophils/100 WBC (Bld) 8.13 % High [facility] WBC other (Bld) [#/Vol] 9.5 [facility] CBC with Diffon 03-29-2024 Abs. Basophil 0.01 k/uL Normal 0.00-0.20 [facility] Comment on above: Performed By: #### C P, CBCWD, PT #### [place] [address] [employer] Worker: Jewell Tse MD Abs.Imm.Granulocyte <0.03 Normal 0.00-0.58 [facility] Comment on above: Performed By: #### C P, CBCWD, PT #### [place] [address] [employer] Worker: Jewell Tse MD Abs.Neutrophil (Seg) 8.13 k/uL High 1.80-7.30 [facility] Comment on above: Performed By: #### C P, CBCWD, PT #### [place] [address] [employer] Worker: Jewell Tse MD Basophils/100 WBC (Bld) 0 % Normal 0.0-2.0 [facility] Comment on above: Performed By: #### C P, CBCWD, PT #### [place] [address] [employer] Worker: Jewell Tse MD Eosinophils (Bld) [#/Vol] 0.00 10*3/uL Low 0.05-0.50 [facility] Comment on above: Performed By: #### C P, CBCWD, PT #### [place] [address] [employer] Worker: Jewell Tse MD Eosinophils/100 WBC (Bld) 0 % Normal 0-6 [facility] Comment on above: Performed By: #### C P, CBCWD, PT #### [place] [address] [employer] Worker: Jewell Tse MD Erythrocyte distribution width (RBC) [Ratio] 12.7 % Normal 11.5-15.0 [facility] Comment on above: Performed By: #### C P, CBCWD, PT #### [place] [address] [employer] Worker: Jewell Tse MD Hematocrit (Bld) [Volume fraction] 42.3 % Normal 34.0-48.0 [facility] Comment on above: Performed By: #### C P, CBCWD, PT #### [place] [address] [employer] Worker: Jewell Tse MD Hemoglobin (Bld) [Mass/Vol] 14.0 g/dL Normal 11.5-15.5 [facility] Comment on above: Performed By: #### C P, CBCWD, PT #### [place]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 Screen Ql (U) Negative NEGATIVE [facility] Comment on above: Cutoff: 300 [...] should not be considered definitive or confirmed. [facility] Comment on above: The drug methodology concentration value must be greater than or equal to the cutoff to be reported as positive. Confirmtory testing orders and/or interpretive sceening questions can be directed to toxicology at [phone]. The absence of expected drug(s) and/or metabolite(s) may be due to inappropriate timing of specimen collection relative to drug administration, poor drug absorption, diluted/adulterated urine, or limitations of screening methodology. [facility] Urinalysison 03-08-2024 Bilirubin Ql (U) Negative NEGATIVE [facility] Clarity (U) Clear Clear [facility] Color (U) Yellow Yellow [facility] Comment Microscopic exam not performed based on chemical results unless requested in original order. [facility] Glucose Test strip (U) [Mass/Vol] Negative NEGATIVE mg/dL [facility] Hemoglobin Auto test strip Ql (U) Negative NEGATIVE [facility] Interpretation and review of laboratory results Abnormal [facility] Ketones (U) [Mass/Vol] Negative NEGATIVE mg/dL [facility] Leukocyte esterase Test strip Ql (U) Negative NEGATIVE [facility] Nitrite Ql (U) Negative NEGATIVE [facility] pH (U) 6.5 [pH] 5.0 - 9.0 [facility] Protein (U) [Mass/Vol] Negative NEGATIVE mg/dL [facility] Specific gravity (U) [Rel density] Low 1.005 - 1.030 [facility] Urobilinogen Qn (U) 0.2 {Leonie'U}/dL 0. 0 - 1.0 EU/dL [facility] Urinalysis, Routineon 2024 Bilirubin, SemiQt,Ur Negative Normal NEG [facility] Comment on above: Performed By: #### U A, RADHA #### [address] [address] [employer] Worker: Darci Castle MD Blood, Urine Negative Normal NEG [facility] Comment on above: Performed By: #### U A, RADHA #### [address] [address] [employer] Worker: Darci Castle MD Clarity (U) Clear Normal CLEAR [facility] Comment on above: Performed By: #### U A, RADHA #### [address] [address] [employer] Worker: Darci Castle MD Color (U) Yellow Normal YEL [facility] Comment on above: Performed By: #### U A, RADHA #### [address] [address] [employer] Worker: Darci Castle MD Comment Microscopic exam not performed based on chemical results unless requested in Normal [facility] Comment on above: Result Comment: orig inal order. Performed By: #### U A, RADHA #### [address] [place] [address] [employer] Worker: Darci Castle MD Glucose Ql (U) Negative Normal NEG [facility] Comment on above: Performed By: #### U A, RADHA #### [address] [place] [address] [employer] Worker: Darci Castle MD Ketones Ql (U) Negative Normal NEG [facility] Comment on above: Performed By: #### U A, RADHA #### [address] [place] [address] [employer] Worker: Darci Castle MD Leukocyte esterase Test strip Ql (U) Negative Normal NEG [facility] Comment on above: Performed By: #### U A, RADHA #### [place] [address] [employer] Worker: Darci Castle MD Nitrite,Ur Negative Normal NEG [facility] Comment on above: Performed By: #### U A, RADHA #### [address] [place] [address] [employer] Worker: Darci Castle MD PH,Ur 6.5 Normal 5.0-9.0 [facility] Comment on above: Performed By: #### U A, RADHA #### [address] [place] [address] [employer] Worker: Darci Castle MD Protein Ql (U) Negative Normal NEG [facility] Comment on above: Performed By: #### U A, RADHA #### [address] [place] [address] [employer] Worker: Darci Castle MD Spec. Thayer,Ur <1.005 Low 1.005-1.030 [facility] Comment on above: Performed By: #### U A, RADHA #### [address] [place] [address] [employer] Worker: Darci Castle MD Urobilinogen,Ur 0.2 EU/dL Normal 0.0-1.0 [facility] Comment on above: Performed By: #### U Lesly, RADHA #### [address] [id number] [employer] Worker: Darci Castle MD CBC with Auto Differentialon 03-07-2024 Basophils (Bld) [#/Vol] 0.03 10*3/uL [facility] Basophils/100 WBC (Bld) 1 % 0.0 - 2.0 % [facility] Eosinophils (Bld) [#/Vol] 0.10 10*3/uL [...] % 0.0 - 5.0 % [facility] Interpretation and review of laboratory results Abnormal [facility] Lymphocytes/100 WBC (Bld) 44 % [...] [facility] Monocytes/100 WBC (Bld) 0.54 % [facility] Neutrophils/100 WBC (Bld) 41 % Low 43.0 - 80.0 % [facility] Platelet mean volume (Bld) [Entitic vol] 8.0 fL 7.0 - 12.0 fL [facility] Platelets (Bld) [#/Vol] 305 10*3/uL [facility] RBC (Bld) [#/Vol] 4.13 10*6/uL 3.50 - 5.5 0 m/uL [facility] Segmented neutrophils/100 WBC (Bld) 1.87 % [facility] WBC other (Bld) [#/Vol] 4.6 [facility] CBC with Diffon 03-07-2024 Abs. Basophil 0.03 k/uL Normal 0.00-0.20 [facility] Comment on above: Performed By: #### Maximino GALLEGO CP TROPI #### [place] [address] [employer] Worker: Darci Castle MD Abs.Imm.Granulocyte <0.03 Normal 0.00-0.58 [facility] Comment on above: Performed By: #### Maximino GALLEGO CP TROPI #### [place] [address] [employer] Worker: Darci Castle MD Abs.Neutrophil (Seg) 1.87 k/uL Normal 1.80-7.30 [facility] Comment on above: Performed By: #### Maximino GALLEGO CP TROPI #### [place] [address] [employer] Worker: Darci Castle MD Basophils/100 WBC (Bld) 1 % Normal 0.0-2.0 [facility] Comment on above: Performed By: #### C BCWD, CP, TROPI #### [address] [place] [address] [employer] Worker: Darci Castle MD Eosinophils (Bld) [#/Vol] 0.10 10*3/uL Normal 0.05-0.50 [facility] Comment on above: Performed By: #### Maximino GALLEGO CP, TROPI #### [address] [place] [address] [employer] Worker: Darci Castle MD Eosinophils/100 WBC (Bld) 2 % Normal 0-6 [facility] Comment on above: Performed By: #### Maximino GALLEGO CP, TROPI #### [place] [address] [employer] Worker: Darci Castle MD Erythrocyte distribution width (RBC) [Ratio] 12.7 % Normal 11.5-15.0 [facility] Comment on above: Performed By: #### Maximino GALLEGO CP, TROPI #### [place] [address] [employer] Worker: Darci Castle MD Hematocrit (Bld) [Volume fraction] 37.6 % Normal 34.0-48.0 [facility] Comment on above: Performed By: #### Maximino GALLEGO CP, TROPI #### [address] [place] [address] [employer] Worker: Darci Castle MD Hemoglobin (Bld) [Mass/Vol] 12.5 g/dL Normal 11.5-15.5 [facility] Comment on above: Performed By: #### Maximino GALLEGO CP, TROPI #### [address] [place] [address] [employer] Worker: Darci Castle MD Immature granulocytes/100 WBC (Bld) 0 % Normal 0.0-5.0 [facility] Comment on above: Performed By: #### C BCSHAMA, CP, TROPI #### [address] [place] [address] [employer] Worker: Darci Castle MD Lymphocytes (Bld) [#/Vol] 2.02 10*3/uL Normal 1.50-4.00 [facility] Comment on above: Performed By: #### C BCSHAMA, CP, TROPI #### [address] [place] [address] [employer] Worker: Darci Castle MD Lymphocytes/100 WBC (Bld) 44 % High 20.0-42.0 [facility] Comment on above: Performed By: #### C BCSHAMA, CP, TROPI #### [place] [address] [employer] Worker: Darci Castle MD MCH (RBC) [Entitic mass] 30.3 pg Normal 26.0-35.0 [facility] Comment on above: Performed By: #### C LASHONDA, CP, TROPI #### [place] [address] [employer] Worker: Darci Castle MD MCHC (RBC) [Mass/Vol] 33.2 g/dL Normal 32.0-34.5 [facility] Comment on above: Performed By: #### C BCSHAMA, CP, TROPI #### [place] [address] [employer] Worker: Darci Castle MD MCV (RBC) [Entitic vol] 91.0 fL Normal 80.0-99.9 [facility] Comment on above: Performed By: #### C BCSHAMA, CP, TROPI #### [address] [place] [address] [employer] Worker: Darci Castle MD Monocytes (Bld) [#/Vol] 0.54 10*3/uL Normal 0.10-0.95 [facility] Comment on above: Performed By: #### Maximino GALLEGO CP, TROPI #### [address] [place] [address] [employer] Worker: Darci Castle MD Monocytes/100 WBC (Bld) 12 % Normal 2.0-12.0 [facility] Comment on above: Performed By: #### Maximino GALLEGO CP, TROPI #### [place] [address] [employer] Worker: Darci Castle MD Neutrophil (Seg) 41 % Low 43.0-80.0 [facility] Comment on above: Performed By: #### Maximino GALLEGO CP, TROPI #### [address] [place] [address] [employer] Worker: Darci Castle MD Platelet mean volume (Bld) [Entitic vol] 8.0 fL Normal 7.0-12.0 [facility] Comment on above: Performed By: #### Maximino GALLEGO CP, TROPI #### [address] [place] [address] [employer] Worker: Darci Castle MD Platelets (Bld) [#/Vol] 305 10*3/uL Normal 130-450 [facility] Comment on above: Performed By: #### Maximino GALLEGO CP, TROPI #### [place] [id number] [employer] Worker: Darci Castle MD RBC (Bld) [#/Vol] 4.13 10*6/uL Normal 3.50-5.50 [facility] Comment on above: Performed By: #### C LASHONDA, CP, TROPI #### [address] [place] [address] [employer] Worker: Darci Castle MD WBC (Bld) [#/Vol] 4.6 10*3/uL Normal 4.5-11.5 [facility] Comment on above: Performed By: #### C LASHONDA, CP, TROPI #### [address] [place] [address] [employer] Worker: Darci Castle MD Comp Metabolic Profon 2024 Albumin [Mass/Vol] 3.9 g/dL Normal 3.5-5.2 [facility] Comment on above: Performed By: #### C LASHONDA, CP, TROPI #### [address] [place] [address] [employer] Worker: Darci Castle MD Alkaline Phos 79 U/L Normal 35-104 [facility] Comment on above: Performed By: #### C LASHONDA, CP, TROPI #### [address] [place] [address] [employer] Worker: Darci Castle MD ALT [Catalytic activity/Vol] 14 U/L Normal 0-32 [facility] Comment on above: Performed By: #### C LASHONDA, CP, TROPI #### [address] [place] [address] [employer] Worker: Darci Castle MD Anion gap [Moles/Vol] 7 mmol/L Normal 7-16 [facility] Comment on above: Performed By: #### C LASHONDA, CP, TROPI #### [address] [place] [address] [employer] Worker: Darci Castle MD AST [Catalytic activity/Vol] 16 U/L Normal 0-31 [facility] Comment on above: Performed By: #### C LASHONDA CP, TROPI #### [address] [place] [address] [employer] Worker: Darci Castle MD Bilirubin [Mass/Vol] 0.3 mg/dL Normal 0.0-1.2 [facility] Comment on above: Performed By: #### C LASHONDA, CP, TROPI #### [address] [place] [address] [employer] Worker: Darci Castle MD Calcium [Mass/Vol] 9.1 mg/dL Normal 8.6-10.2 [facility] Comment on above: Performed By: #### C LASHONDA, CP, TROPI #### [address] [place] [address] [employer] Worker: Darci Castle MD Chloride [Moles/Vol] 102 mmol/L Normal 98-107 [facility] Comment on above: Performed By: #### C LASHONDA, CP, TROPI #### [address] [place] [address] [employer] Worker: Darci Castle MD CO2 [Moles/Vol] 30 mmol/L High 22-29 [facility] Comment on above: Performed By: #### C LASHONDA, CP, TROPI #### [address] [place] [address] [employer] Worker: Darci Castle MD Creatinine [Mass/Vol] 0.7 mg/dL Normal 0.50-1.00 [facility] Comment on above: Performed By: #### C LASHONDA, CP, TROPI #### [place] [address] [employer] Worker: Darci Castle MD GFR/1.73 sq M.predicted among non-blacks MDRD (S/P/Bld) [Vol rate/Area] mL/min/{1.73_m2} Normal >60 [facility] Comment on above: Result Comment: These results [...] renal tubular secretion. Performed By: #### C ADILENE GALLEGO TROPI #### [address] [place] [address] [employer] Worker: Darci Castle MD Glucose [Mass/Vol] 105 mg/dL High 74-99 [facility] Comment on above: Performed By: #### Maximino GALLEGO CP TROPI #### [address] [place] [address] [employer] Worker: Darci Castle MD Potassium [Moles/Vol] 3.9 mmol/L Normal 3.5-5.0 [facility] Comment on above: Performed By: #### Maximino GALLEGO CP TROPI #### [address] [place] [id number] [employer] Worker: Darci Castle MD Protein [Mass/Vol] 6.1 g/dL Low 6.4-8.3 [facility] Comment on above: Performed By: #### Maximino GALLEGO CP TROPI #### [address] [place] [id number] [employer] Worker: Darci Castle MD Sodium [Moles/Vol] 139 mmol/L Normal 132-146 [facility] Comment on above: Performed By: #### C LASHONDA, ADILENE, TROPI #### [facility] [address] [place] [address] [employer] Worker: Darci Castle MD Urea nitrogen [Mass/Vol] 3 mg/dL Low 6-20 [facility] Comment on above: Performed By: #### C LASHONDA, CP, TROPI #### [facility] [address] [place] [address] [employer] Worker: Darci Castle MD Comprehensive Metabolic Pane [facility] 03-07-2024 Albumin [Mass/Vol] 3.9 g/dL 3.5 - 5.2 g/dL [facility] ALP [Catalytic activity/Vol] 79 U/L 35 - 104 U/L [facility] ALT [Catalytic activity/Vol] 14 U/L 0 - 32 U/L [facility] Anion gap [Moles/Vol] 7 mmol/L 7 - 16 mmol/L [facility] AST [Catalytic activity/Vol] 16 U/L 0 - 31 U/L [facility] Bilirubin [Mass/Vol] 0.3 mg/dL 0.0 - 1 .2 mg/dL [facility] Calcium [Mass/Vol] 9.1 mg/dL 8.6 - 10. 2 mg/dL [facility] Chloride [Moles/Vol] 102 mmol/L 98 - 10 7 mmol/L [facility] CO2 [Moles/Vol] 30 mmol/L High 22 - 29 mmol/L [facility] Creatinine [Mass/Vol] 0.7 mg/dL 0.50 - 1.00 mg/dL [facility] Est, Glom Filt Rate - PINF [facility] Comment on above: These results are not [...] 105 mg/dL High 74 - 99 mg/dL [facility] Potassium [Moles/Vol] 3.9 mmol/L 3.5 - 5.0 mmol/L [facility] Protein [Mass/Vol] 6.1 g/dL Low 6.4 - 8.3 g/dL [facility] Sodium [Moles/Vol] 139 mmol/L 132 - 146 mmol/L [facility] Urea nitrogen [Mass/Vol] 3 mg/dL Low 6 - 20 mg/dL [facility] No Panel Informationon 03-07 Radiology Study observation (narrative) [facility] Interpretation and review of laboratory results Abnormal [facility] Troponinon 03-07-2024 Troponin I.cardiac High sensitivity method [Mass/Vol] 17 ng/L High 0 - 9 ng/L [facility] Comment on above: High Sensitivity Troponin values cannot be compared with other Troponin methodologies. Patients with high levels of Biotin oral intake (i.e >5mg/day) may have falsely decreased Troponin levels. Samples collected within 8 hours of biotin intake may require additional information for diagnosis. Troponin, High Sens 17 ng/L High 0-9 [facility] Comment on above: Result Comment: High Sensitivity Troponin values cannot be compared with other Troponin methodologies. Patients with high levels of Biotin oral intake (i.e >5mg/day) may have falsely decreased Troponin levels. Samples collected within 8 hours of biotin intake may require additional information for diagnosis. Performed By: #### C BCWD, CP, TROPI #### [facility] [address] [facility] [facility] [place] [address] [employer] Worker: Darci Castle MD XR SHOULDER LEFT (MIN [...] Bello Peralta MD 03/07/24 Final result Normal [facility] Comment on above: Order Comment: Reaso n for exam:->fall, pain XR Shoulder - left 2 Viewson 03-07-2024 No acute abnormality . [facility] EXAMINATION: THREE XRAY VIEWS OF THE LEFT SHOULDER 03/07/2024 11:07 pm COMPARISON: 01/10/2023 HISTORY: ORDERING SYSTEM PROVIDED HISTORY: fall, pain TECHNOLOGIST PROVIDED HISTORY: Reason for exam:->fall, pain FINDINGS: Glenohumeral joint is normally aligned. No evidence of acute fracture or dislocation. Rotator cuff periarticular calcifications. AC joint degenerative changes. Visualized lung is unremarkable. [facility] Bello Peralta MD - 03/07/2024 EXAMINATION: THREE XRAY VIEWS OF THE LEFT SHOULDER 03/07/2024 11:07 pm COMPARISON: 01/10/2023 HISTORY: ORDERING SYSTEM PROVIDED HISTORY: fall, pain TECHNOLOGIST PROVIDED HISTORY: Reason for exam:->fall, pain FINDINGS: Glenohumeral joint is normally aligned. No evidence of acute fracture or dislocation. Rotator cuff periarticular calcifications. AC joint degenerative changes. Visualized lung is unremarkable. IMPRESSION: No acute abnormality. [facility] Radiology Study observation (narrative) [facility] XR Shoulder - left 2 ViewsOr dered By: Bello Peralta on 03-07-2024 [facility] Work Phone: COVID-19, Rapidon 02-20-2024 SARS-CoV-2 (COVID-19) RdRp gene KESHA+probe Ql (Resp) Not detected Not Detected [facility] Comment on above: Rapid NATT: Negative [...] authorized laboratories. Fact sheet for Healthcare Providers: https://www.fda.gov/media/419375/download Fact sheet for Patients: https://www.fda.gov/media/180727/download Methodology: Isothermal Nucleic Acid Amplification Specimen Description .NASOPHARYNGEAL SWAB [facility] Influenza A and [facility] 02-20-20 24 Influenza A by MOL Detected Abnormal [facility] Comment on above: Result Comment: Meth odology: Isothermal Nucleic Acid Amplification Performed By: #### F LUABP #### [address] [id number] [employer] Worker: Jewell Tse MD Influenza B by MOL Not detected Normal [facility] Comment on above: Result Comment: Meth odology: Isothermal Nucleic Acid Amplification Performed By: #### F LUABP #### [address] [address] [employer] Worker: Jewell Tse MD Influenza A+B, PCRon 024 Influenza A by PCR Detected Abnormal Not Detected [facility] Comment on above: Methodology: Isother mal Nucleic Acid Amplification Influenza B by PCR Not detected Not Detected [facility] Comment on above: Methodology: Isother mal Nucleic Acid Amplification Interpretation and review of laboratory results Abnormal [facility] No Panel Informationon 02-19 [facility] [id number] 02-20-2024 SARS-CoV-2 (COVID-19) RNA KESHA+probe Ql (Unsp spec) Not detected Normal [facility] Comment on above: Result Comment: Rapid NATT: [...] authorized laboratories. Fact sheet for Healthcare Providers: https://www.fda.gov/media/612415/download Fact sheet for Patients: https://www.Healthcentrix.gov/media/970208/download Methodology: Isothermal Nucleic Acid Amplification Performed By: #### C OVRB #### [facility] [address] [place] [address] Fiber Optic Assembly Worker: Jewell Tse MD XR CHEST (2 VW)on [...] Mckayla Ha MD 02/20/24 Final result Normal [facility] Comment on above: Order Comment: Reaso n for exam:->pleurisy XR Chest 2 Viewson Some peribronchial cuffing to suggest a nonspecific bronchiolitis. No acute parenchymal disease.. [facility] EXAMINATION: TWO XRAY VIEWS OF [...] unremarkable. Pulmonary vascularity is within normal limits. [facility] Mckayla Ha MD - 02/20/2024 [...] a nonspecific bronchiolitis. No acute parenchymal disease.. [facility] Study observation (narrative) [facility] XR Chest 2 ViewsOrdered By: Mckayla Ha on 02-20-2024 [facility] Work Phone: MR-ANKLE LEFT WO CONTRASTon 02-12-2024 MR-ANKLE LEFT WO CONTRAST Name: DB DOAN Phys: Ryne Ramirez MD : 1970 Age: 53 Sex: F Acct: [id number] Loc: [facility] Exam Date: 02/12/2024 Status: PRE REF Radiology No: Unit No: [id number] PH: [phone] Diagnosis: INSTABILITY LEFT ANKLE EXAM: [id number] MR-ANKLE LEFT WO CONTRAST Reason For Procedure: [...] Ron Coon MD CC: Technologist: KOJO MAE, RT/R/MR Transcribed Date/Time: 02/12/2024 (329) Center Mgr: NAFISA Printed Date/Time: 02/12/2024 (7365) PAGE 1 Signed Report Normal [facility] CT CERVICAL SPINE WO CONTRAS Ton 02-11-2024 CT CERVICAL SPINE WO CONTRAST [...] Jaja Weaver MD 02/11/24 Final result Normal [facility] Comment on above: Order Comment: Reaso n for exam:->eval neck pain c7, fall Decision Support Exception - unselect if not a suspected or confirmed emergency medical condition->Emergency Medical Condition (MA) CT Cervical spine WO contras ton 02-11-2024 No acute abnormality of the cervical spine. [facility] CONSOLIDATED EXAMINATION: CT OF THE CERVICAL [...] There is no prevertebral soft tissue swelling. [facility] Jaja Hernandez MD - 02/11/2024 EXAMINATION: CT OF THE [...] No acute abnormality of the cervical spine. [facility] Radiology Study observation (narrative) [facility] CT Cervical spine WO contras tOrdered By: Jaja Weaver on 02-11-2024 [facility] Work Phone: XR CERVICAL SPINE 2-3 VIEWSo n 02-10-2024 XR CERVICAL SPINE 2-3 VIEWS Interpreted By: Monae Owens, STUDY: XR CERVICAL SPINE 2-3 VIEWS; ; 02/10/2024 4:56 am INDICATION: Signs/Symptoms:fall. COMPARISON: None. ACCESSION NUMBER(S): [id number] ORDERING CLINICIAN: CHRIS TIWARI FINDINGS: Three views [...] Monae Owens 02/10/2024 5:41 AM Dictation workstation: [id number] [facility] XR HIP RIGHT WITH PELVIS WHE N PERFORMED 2 OR 3 VIEWSon 02-10-2024 XR HIP RIGHT WITH PELVIS WHEN PERFORMED 2 OR 3 VIEWS Interpreted By: Monae Owens, STUDY: XR HIP RIGHT WITH PELVIS WHEN PERFORMED 2 OR 3 VIEWS; ; 02/10/2024 4:56 am INDICATION: Signs/Symptoms:fall. COMPARISON: 08/04/2022 ACCESSION NUMBER(S): [id number] ORDERING CLINICIAN: CHRIS TIWARI FINDINGS: AP pelvis and two views of the right hip. No acute fracture or dislocation identified. Mild degenerative changes noted. Soft tissues are grossly unremarkable. IMPRESSION: No acute osseous abnormality identified. MACRO: None Signed by: Monae Owens 02/10/2024 5:44 AM Dictation workstation: [id number] [facility] XR SHOULDER RIGHT 2+ VIEWSon 02-10-2024 XR SHOULDER RIGHT 2+ VIEWS Interpreted By: Monae Owens, STUDY: XR SHOULDER RIGHT 2+ VIEWS; ; 02/10/2024 4:56 am INDICATION: Signs/Symptoms:fall. COMPARISON: None. ACCESSION NUMBER(S): [id number] ORDERING CLINICIAN: CHRIS TIWARI FINDINGS: Two views of the right shoulder Mild degenerative changes of the acromioclavicular joint. No acute fracture dislocation identified within constraints of limited projection. Soft tissues are within normal limits. The visualized right chest is grossly unremarkable. IMPRESSION: No acute osseous abnormality identified within constraints of limited projection. MACRO: None Signed by: Monae Owens 02/10/2024 5:45 AM Dictation workstation: [id number] [facility] ED Provider Noteon ED Provider Note [facility] ED EMERGENCY DEPARTMENT ENCOUNTER Pt Name: Db Doan Birthdate 1970 Date of evaluation: 02/05/2024 Provider: Jennifre Mae MD CHIEF COMPLAINT Chief Complaint Patient presents with Fall Patient arrived to ED c/o hip and back pain from a fall yesterday. Denies hitting head or LOC. States she fell onto her right hip. Not on thinners. Pain 12/11 HISTORY OF PRESENT ILLNESS (Location/Symptom, Timing/Onset,Context/Se tting, Quality, Duration, Modifying Factors, Severity) Note limiting factors. Db Doan is a 53 y.o. female who presents to the emergency department with hip pain. Fell yesterday. Complains of right hip pain. When I go into the room she is up walking around says it hurts in her right buttocks. She has long history of back pain. Long history of sciatica. She did not hit her head. No numbness or tingling. She said she fell and hurt her hip. While I am talking to her and interviewing her she says that she wants something for pain. I said that obviously I will examine her and give her something for pain. HPI Historian is patient Nurse's notes for past medical history, surgical history, social history were reviewed. Medications and allergies reviewed. PAST MEDICAL HISTORY Past Medical History: Diagnosis Date H/O section Incomplete tear of left rotator cuff Sciatica Seizures (HCC) Spinal stenosis SURGICALHISTORY Past Surgical History: Procedure Laterality Date HERNIA REPAIR CURRENT MEDICATIONS Previous Medications DULOXETINE (CYMBALTA) [address] CAPSULE Take 60 mg by mouth daily. Do not crush or chew. LAMOTRIGINE (LAMICTAL) 25 MG TABLET Take 150 mg by mouth daily. METHOCARBAMOL (ROBAXIN) 500 MG TABLET Take 1 tablet (500 mg) by mouth 2 times daily for 10 days. Patient has no known allergies. FAMILY HISTORY No family history on file. SOCIAL HISTORY Social History Socioeconomic History Marital status: Single Tobacco Use Smoking status: Some Days Types: Cigarettes Smokeless tobacco: Never Vaping Use Vaping status: Never Used Substance and Sexual Activity Alcohol use: Never Drug use: Never Social Drivers of Health Financial Resource Strain: Low Risk (11/01/2022) [facility] Overall Financial Resource Strain (CARDIA) Difficulty of Paying Living Expenses: Not very hard Food Insecurity: No Food Insecurity (10/23/2023) Received from [facility] Hunger Vital Sign Worried About Running Out of Food in the Last Year: Never true Ran Out of Food in the Last Year: Never true Transportation Needs: No Transportation Needs (10/23/2023) Received from [facility] - Transportation Lack of Transportation (Medical): No Lack of Transportation (Non-Medical): No Housing Stability: Unknown (10/23/2023) Received from Housing Stability Vital Sign Unable to Pay for Housing in the Last Year: No Homeless in the Last Year: No SCREENINGS PHYSICAL EXAM (up to 7 for level 4, 8 or more for level 5) @EDTRIAGEVSS@ Appropriate PPE including n 95, gown, gloves, goggles where worn when appropriate with this patient. Physical Exam General awake alert appropriate ambulatory without limp. She does have tenderness in right sciatic notch. No midline lumbar tenderness. Strength sensation is intact in her lower extremities. She then stopped me from completing my exam because she said that she wanted something for pain. I was unable to do further examination DIAGNOSTIC RESULTS RADIOLOGY: Interpretation per the Radiologist below, if availableat the time of this note: No orders to display ED BEDSIDE ULTRASOUND: Performed by ED Physician - none LABS: Labs Reviewed - No data to display All other labs were within normal range or not returned as of thisdictation. EMERGENCYDEPARTMENT COURSE and DIFFERENTIAL DIAGNOSIS/MDM: Vitals: Vitals: 02/05/24 0323 02/05/24323 BP: 137/82 Pulse: 94 Resp: 16 Temp: 36.6 ?C (97.9 ?F) TempSrc: Temporal SpO2: 100% Weight: 63.5 kg (140 lb) Height: 1.702 m (5' 7) Medical Decision Making EMERGENCY DEPARTMENT COURSE and DIFFERENTIAL DIAGNOSIS/MDM: Vitals: Vitals: 02/05/24 0323 02/05/24323 BP: 137/82 Pulse: 94 Resp: 16 Temp: 36.6 ?C (97.9 ?F) TempSrc: Temporal SpO2: 100% Weight: 63.5 kg (140 lb) Height: 1.702 m (5' 7) The patient presented with a chief complaint of hip pain. The differential diagnosis associated with this patient's presentation includes hip fracture pelvis fracture muscle strain contusion sciatica cauda equina. Our workup consisted of ordering/reviewing x-rays of the right hip and pelvis. Patient declined x-rays. She interrupts me several times during the history of present illness and physical examination asking for something for pain. I explained to her that we could get her some Motrin she then said sh (more content not included)... Normal [facility] Emergency Department Summary on 01-24-2024 Emergency Department Summary [facility] Medical Records Department [address] [place] [address] Emergency Department Summary 01/24/24 MR#: [id number] Acct: [id number] Name: DB DOAN Rep #: [id number] : 1970 53 From: Edwar Fitzpatrick DO [...] bladder changes. Patient denies any saddle anesthesia. [facility] Medical History (Updated 01/24/24 @ 17:[address] Edwar Fitzpatrick, ) Depression Anxiety Fibromyalgia Ankylosing spondylitis Epilepsy Home [...] ED: N (more content not included)... Normal [facility] HIP, UNI W/ Pelvis 2-3 Views on 01-24-2024 HIP, UNI W/ Pelvis 2-3 Views [facility] Imaging Services [address] [place] [address] HIP, UNI W/ Pelvis 2-3 Views MR#: [id number] Acct: [id number] Name: DB DOAN Timoteo Rep #: [id number] : 1970 F 53 From: Ron Solano MD PCP: Maria Elena Montalvo MD Status: REG ER Study: HIP, UNI W/ Pelvis 2-3 Views Date of Exam: Exam# [id number] Ordering Dr: [place] [id number] STUDY: X-RAY - PELVIS AND RIGHT HIP [...] Signed: Ron Solano MD at 16:50 EST Reading Location ID and State: [address] [place] [address] Tel , Service support , CC: Maria Elena Montalvo MD; Dr. Edwar Fitzpatrick, Center Mgr: Signed Normal [facility] COVID-19 & Influenza Comboon 01-21-2024 FLUAV RNA KESHA+probe Ql (Resp) Not detected Not Detected [facility] Comment on above: Note: Influenza A an d Influenza B negative results should be considered presumptive in samples that have a Detected SARS-CoV-2 result. Consider re-testing with an alternate FDA-approved test if clinically indicated. FLUBV RNA KESHA+probe Ql (Resp) Not detected Not Detected [facility] Comment on above: Note: Influenza A an d Influenza B negative results should be considered presumptive in samples that have a Detected SARS-CoV-2 result. Consider re-testing with an alternate FDA-approved test if clinically indicated. Interpretation and review of laboratory results Abnormal [facility] SARS-CoV-2 (COVID-19) RNA KESHA+probe Ql (Resp) Detected Abnormal Not Detected [facility] Comment on above: Testing was performed [...] with other pathogens. Fact sheet for Patients: https://www.fda.gov/media/939405/download Fact sheet for Healthcare Providers: https://www.fda.gov/media/495954/download Source .NASOPHARYNGEAL SWAB [facility] Specimen Description .NASOPHARYNGEAL SWAB [facility] ED Nursing Noteon 01-21-2024 ED Nursing Note Pt given discharge instructions both written and oral gait steady upon dc Normal [facility] ED Nursing Note Pt in with complaint of low back pain pt states she fell last night pt alert and oriented skin warm and dry no resp idstress pt rates pain 10/10 gait steady upon arrival Normal [facility] ED Provider Noteon ED Provider Note EMERGENCY DEPARTMENT ENCOUNTER Pt Name: Db Doan Birthdate 1970 Date of evaluation: 01/21/2024 ED Provider: Samuel Lopez MD CHIEF COMPLAINT Chief Complaint Patient presents with Back Pain HISTORY OF PRESENT ILLNESS (Location/Symptom, Timing/Onset, Context/Setting, Quality, Duration, Modifying Factors, Severity) Note limiting factors. I wore appropriate PPE for the entirety of this encounter. HPI Db Doan is a 53 y.o. who presents to the emergency department with chief complaint of chronic low back pain. The patient has had issues with her back for a long time. She recently had COVID. She thinks some kind of inflammatory reaction set off something in her back. She gets these yohm-lym-toktwai sensations going up and down. She said she slipped and fell when she was outside in the [place] last night looking for her cat. She has problems with her left ankle because of a torn ligament. She asked if we had an MRI machine. She was concerned because she had some issues with bowel control couple weeks ago. She has had back injections before, but they have not really helped her. She went to 3 different emergency departments yesterday and seems to go to different places looking for help and pain medication. Yesterday she had a CT of her pelvis at the [facility] which showed no acute bony abnormality. No other acute complaints described. 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 Limitations to history: None Outside historians: None REVIEW OF SYSTEMS Review of Systems Constitutional: Negative. HENT: Negative. Eyes: Negative. Respiratory: Negative. Cardiovascular: Negative. Gastrointestinal: Negative. Genitourinary: Negative. Musculoskeletal: Positive for back pain. Skin: Negative for color change and rash. Neurological: Negative. All other systems reviewed and are negative. Pertinent positives and negatives as per HPI. PAST MEDICAL HISTORY Past Medical History: Diagnosis Date H/O section Incomplete tear of left rotator cuff Sciatica Seizures (HCC) Spinal stenosis SURGICAL HISTORY Past Surgical History: Procedure Laterality Date HERNIA REPAIR CURRENT MEDICATIONS Previous Medications DULOXETINE (CYMBALTA) [address] CAPSULE Take 60 mg by mouth daily. Do not crush or chew. LAMOTRIGINE (LAMICTAL) 25 MG TABLET Take 150 mg by mouth daily. METHOCARBAMOL (ROBAXIN) 500 MG TABLET Take 1 tablet (500 mg) by mouth 2 times daily for 10 days. ALLERGIES Patient has no known allergies. FAMILY HISTORY No family history on file. SOCIAL HISTORY Social History Socioeconomic History Marital status: Single Tobacco Use Smoking status: Some Days Types: Cigarettes Smokeless tobacco: Never Vaping Use Vaping status: Never Used Substance and Sexual Activity Alcohol use: Never Drug use: Never Social Drivers of Health Financial Resource Strain: Low Risk (11/01/2022) Received from [facility] Overall Financial Resource Strain (CARDIA) Difficulty of Paying Living Expenses: Not very hard Food Insecurity: No Food Insecurity (10/23/2023) Received from Hunger Vital Sign Worried About Running Out of Food in the Last Year: Never true Ran Out of Food in the Last Year: Never true Transportation Needs: No Transportation Needs (10/23/2023) Received from [facility] - Transportation Lack of Transportation (Medical): No Lack of Transportation (Non-Medical): No Housing Stability: Unknown (10/23/2023) Received from Housing Stability Vital Sign Unable to Pay for Housing in the Last Year: No Homeless in the Last Year: No SCREENINGS PHYSICAL EXAM ED Triage Vitals [01/21/24 0607] Temp Heart Rate Resp BP 36.2 ?C (97.1 ?F) 99 18 (!) 143/100 SpO2 Temp src Heart Rate Source Patient Position 99 % -- -- -- BP Location FiO2 (%) -- -- Physical Exam Vitals and nursing note reviewed. Constitutional: Appearance: Normal appearance. She is well-developed and normal weight. She is not toxic-appearing. Comments: Patient is tearful and upset although nontoxic. HENT: Head: Normocephalic and atraumatic. Right Ear: External ear normal. Left Ear: External ear normal. Nose: Nose normal. Mouth/Throat: Mouth: Mucous membranes are moist. Pharynx: Oropharynx is clear. Eyes: Extraocular Movements: Extraocular movements intact. Conjunctiva/sclera: Conjunctivae normal. Pupils: Pupils are equal, round, and reactive to light. Cardiovascular: Rate and Rhythm: Normal rate and regular rhythm. Heart sounds: No murmur heard. Pulmonary: Effort: Pulmonary effort is normal. No respiratory distress. Breath sounds: Normal breath sounds. Abdominal: Palpations: Abdomen is soft. Tenderness: There is no abdominal tenderness. Musculoskeletal: General: Normal range of motion. Cervical back: Normal range of motion (more content not included)... Normal [facility] SARS-CoV-2 + Flu A/Bon 01-20 Influenza A, RT-PCR Not detected Normal [facility] Comment on above: Result Comment: Note : Influenza A and Influenza B negative results should be considered presumptive in samples that have a Detected SARS-CoV-2 result. Consider re-testing with an alternate FDA-approved test if clinically indicated. Performed By: #### C VFLU #### [facility] [address] [place] [id number] [employer]ic Assembly Worker: Liseth Doran MD Influenza B, RT-PCR Not detected Normal [facility] Comment on above: Result Comment: Note : Influenza A and Influenza B negative results should be considered presumptive in samples that have a Detected SARS-CoV-2 result. Consider re-testing with an alternate FDA-approved test if clinically indicated. Performed By: #### C VFLU #### [facility] [address] [place] [id number] [employer] Worker: Liseth Doran MD SARS-CoV-2 (COVID-19) RNA KESHA+probe Ql (Unsp spec) Detected Abnormal [facility] Comment on above: Result Comment: Testing [...] with other pathogens. Fact sheet for Patients: https://www.fda.gov/media/403344/download Fact sheet for Healthcare Providers: https://www.fda.gov/media/185939/download Performed By: #### C VFLU #### [facility] [address] [place], [place] [id number] [employer] Assembly Worker: Liseth Doran MD Source .NASOPHARYNGEAL SWAB Normal [facility] Comment on above: Performed By: #### C VFLU #### [facility] [address] [place] [address] [employer]ic Assembly Worker: Liseth Doran MD [facility] 01-20-2024 [facility] HNO ID: [id number] Author: DYLAN COBURN RT(R) Service: Radiology Author [...] PATIENT PRESENTS WITH AN IMPLANTABLE OR ATTACHED BI APPLICATION DEVELOPER: No RADIOLOGY DEPARTMENT: CT; Exam(s) Completed: Pelvis PERIPHERAL IV DATA: Not applicable SIGNED BY: RT Alisa(R) January 20, 2024 1:25 PM [facility] HNO ID: [id number] Author: DYLAN COBURN RT(R) Service: Radiology Author Type: Technologist Type: Allied Health Filed: 01/20/2024 13:08 Note Text: Spoke to ED, patient can come to CT when ready Normal [facility] CT PELVIS WO IVCONon 024 CT [...] malalignment or other deformity of pelvic bones. Center Mgr: MARSHALL Transcribe Date/Time: Jan 20 2024 2:19P Dictated by : ARYO COUCH MD This examination was interpreted and the report reviewed and electronically signed by: RAYO COUCH MD on Jan 20 2024 2:29PM EST [id number] [facility] ED NOTEon 01-20-2024 ED NOTE HNO ID: [id number] Author: LUIS HOWARD RN Service: ? Author Type: Registered Nurse Type: ED Notes Filed: 01/20/2024 14:42 Note Text: Left without paper copies of discharge instructions. [facility] ED NOTE HNO ID: [id number] Author: JUDE RIVAS RN Service: ? Author Type: Registered Nurse Type: ED Notes Filed: 01/20/2024 11:50 Note Text: Patient reports that she has an Autoimmune disease. Normal [facility] ED NOTE HNO ID: [id number] Author: JUDE RIVAS RN Service: ? Author Type: Registered Nurse Type: ED Notes Filed: 01/20/2024 11:50 Note Text: Patient is ambulatory to ER for concerns of I feel like I am being electrocuted going up my spine and also a mole on her chest. Normal [facility] ED PROV NOTEon 01-20-2024 ED PROV NOTE HNO ID: [id number] Author: LATANYA HELM MD Service: Emergency Medicine [...] noted that she was [facility] an [facility] approximately 5 hours prior to arrival. History provided by: Patient History limited by: n/a. public welfare director used: No PAST MEDICAL HISTORY Diagnosis Date [...] bowel o (more content not included)... Normal [facility] EDon 01-19-2024 ED 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 She reports that the reason doctors do not take her seriously is because the mafia has gotten to them all. Patient reports that despite the litany of opioid prescription she has been given over the past year, she has not gotten any of these prescriptions as she states that the mafia is stealing my narcotics. Denies any suicidal [...] or splenomegaly (more content not included)... Normal [facility] COVID-19 & Influenza Comboon 01-18-2024 FLUAV RNA KESHA+probe Ql (Resp) Not detected Not Detected [facility] Comment on above: Note: Influenza A an d Influenza B negative results should be considered presumptive in samples that have a Detected SARS-CoV-2 result. Consider re-testing with an alternate FDA-approved test if clinically indicated. FLUBV RNA KESHA+probe Ql (Resp) Not detected Not Detected [facility] Comment on above: Note: Influenza A an d Influenza B negative results should be considered presumptive in samples that have a Detected SARS-CoV-2 result. Consider re-testing with an alternate FDA-approved test if clinically indicated. Interpretation and review of laboratory results Abnormal [facility] SARS-CoV-2 (COVID-19) RNA KESHA+probe Ql (Resp) Detected Abnormal Not Detected [facility] Comment on above: Testing was performed [...] with other pathogens. Fact sheet for Patients: https://www.fda.gov/media/597796/download Fact sheet for Healthcare Providers: https://www.fda.gov/media/111440/download Source .NASOPHARYNGEAL SWAB [facility] Specimen Description .NASOPHARYNGEAL SWAB [facility] Portable XR Chest AP single viewon 01-18-2024 1. Small infiltrate within the right lung base. [facility] CONSOL[facility] EXAMINATION: ONE XRAY VIEW OF THE CHEST 01/18/2024 8:03 am COMPARISON: None. HISTORY: ORDERING SYSTEM PROVIDED HISTORY: covid, cough TECHNOLOGIST PROVIDED HISTORY: Reason for exam:->covid, cough FINDINGS: The cardiac silhouette is within normal limits. There is a small infiltrate seen within the right lung base. The left lung is clear. There is no right or left pleural effusion. [facility] Wilmer Wray MD - 01/18/2024 EXAMINATION: [...] Small infiltrate within the right lung base. [facility] Radiology Study observation (narrative) [facility] Portable XR Chest AP single viewOrdered By: Wilmer Wray on 01-18-2024 [facility] Work Phone: Rapid Strep Screenon 024 Specimen source Nom (Unsp spec) .THROAT SWAB [facility] Strep A, Molecular Negative NEGATIVE [facility] SARS-CoV-2 + Flu A/[facility] 01-17 Influenza A, RT-PCR Not detected Normal [facility] Comment on above: Result Comment: Note : Influenza A and Influenza B negative results should be considered presumptive in samples that have a Detected SARS-CoV-2 result. Consider re-testing with an alternate FDA-approved test if clinically indicated. Performed By: #### C LASHONDA, CP, TROPI #### [facility] [address] [place] [address] [employer] Worker: Darci Castle MD Influenza B, RT-PCR Not detected Normal [facility] Comment on above: Result Comment: Note : Influenza A and Influenza B negative results should be considered presumptive in samples that have a Detected SARS-CoV-2 result. Consider re-testing with an alternate FDA-approved test if clinically indicated. Performed By: #### C ADILENE GALLEGO TROPI #### [address] [place] [address] [employer] Worker: Darci Castle MD SARS-CoV-2 (COVID-19) RNA KESHA+probe Ql (Unsp spec) Detected Abnormal [facility] Comment on above: Result Comment: Testing [...] with other pathogens. Fact sheet for Patients: https://www.fda.gov/media/326974/download Fact sheet for Healthcare Providers: https://www.fda.gov/media/888800/download Performed By: #### C ADILENE GALLEGO TROPI #### [address] [address] [employer] Worker: Darci Castle MD Source .NASOPHARYNGEAL SWAB Normal [facility] Comment on above: Performed By: #### C ADILENE GALLEGO TROPI #### [address] [place] [address] [employer] Worker: Darci Castle MD Strep Group A, Rapidon 01-17 Strep A, Molecular Negative Normal NEG [facility] Comment on above: Performed By: #### R SAB #### [facility] [address] [place] [address] [employer] Worker: Liseth Doran MD Source .THROAT SWAB Normal [facility] Comment on above: Performed By: #### R SAB #### [facility] [address] [place], [place] [id number] [employer] Worker: Liseth Doran MD XR CHEST PORTABLEon 01-18-20 [...] Wilmer Wray MD 01/18/24 Final result Normal [facility] Comment on above: Order Comment: Devon dominique for exam:->covid, cough ANKLE LEFT-MIN 3 VWSon 01-15 ANKLE LEFT-MIN 3 VWS Name: DB DOAN Phys: Suraj Cevallos MD : 1970 Age: 53 Sex: F Acct: [id number] Loc: SAT Exam Date: 01/16/2024 Status: DEP ER Radiology No: Unit No: [id number] PH: [phone] Diagnosis: L ANKLE PAIN, L KNEE PAIN EXAM: [id number] ANKLE LEFT-MIN 3 VWS Reason For Procedure: [...] By: Brandon Morales DO CC: Technologist: AGUILAR HOLDER, RT/R Transcribed Date/Time: 01/16/2024 (0727) Center Mgr: NAFISA Printed Date/Time: 01/16/2024 (0727) PAGE 1 Signed Report Normal [facility] Gian QUINTANAon 01-16-2024 ED [facility] ROSALBA Benedict 01/16/24 [place], [place] [address] [id number] DB DOAN None EMERGENCY ROOM REPORT MR [id number] History of Present Illness Date of [...] 145/97 118 99 Diagnostic Studies Recent Impressions [facility] - ANKLE LEFT-MIN 3 VWS 01/15 329 Report Impression - Status: SIGNED Entered: 01/16/2024726 IMPRESSION: NO ACUTE FRACTURE SITE: O Impression By: Brandon Baxter DO [facility] - KNEE LEFT 4 VWS OR [...] Referrals: Bob Lees MD: 1-2 Days Micah Kent MD: 1-2 Days Patient Instructions: DI for Knee Pain Additional Instructions: At this time, your knee x-ray and ankle x-ray do not appear significantly changed from prior studies. We do not believe there is any acute fracture or disloca (more content not included)... Normal [facility] KNEE LEFT 4 VWS OR MOREon KNEE LEFT 4 VWS OR MORE Name: DB DOAN Phys: Suraj Cevallos MD : 1970 Age: 53 Sex: F Acct: [id number] Loc: SAT Exam Date: 01/16/2024 Status: DEP ER Radiology No: Unit No: [id number] PH: [phone] Diagnosis: L ANKLE PAIN, L KNEE PAIN EXAM: [id number] KNEE LEFT 4 VWS OR MORE Reason [...] By: Brandon Morales DO CC: Technologist: AGUILAR HOLDER, RT/Jennifer Transcribed Date/Time: 01/16/2024 (07) Center Mgr: NAFISA Printed Date/Time: 01/16/2024 (717) PAGE 1 Signed Report Normal [facility] Gian HAND RIGHT (MIN 3 V)on 01-13 CRHANDR Name: DB DOAN Phys: DEYSI NOLASCO JR, DO : 1970 Age: 53 Sex: F Acct: [id number] Loc: ED Exam Date: 01/14/2024 Status: REG ER Radiology No: [id number] Unit No: [id number] EXAM# TYPE/EXAM RESULT [id number] EDRAD/HAND RIGHT (MIN 3 V) SEE REPORT INDICATION: Right hand pain and swelling to the fourth and fifth metacarpals after punching a wall. TECHNIQUE: Three view(s) of the right hand. COMPARISON: XR hand 04/23/2023. FINDINGS: There is no displaced fracture. The alignment is anatomic. No soft tissue abnormality is seen. IMPRESSION: No acute osseous abnormality identified. Signed by Robel Dumont [place] [id number] REPORT SIGNED IN OTHER VENDOR SYSTEM 01/14/2024 Reported By: ROBEL DUMONT M.D. CC: MARIA ELENA MONTALVO Technologist: ASAEL MORALES Transcribed Date/Time: 01/14/2024 (0430) Center Mgr: BRUCE Printed Date/Time: 01/14/2024 (0430) PAGE 1 Signed Report Normal [facility] XR ANKLE MINIMUM 3 VIEWS LEF [...] 01/13/2024 7:38:36 AM Ordering Provider: PAULINA THORPE [facility] XR Ankle left 3 plus viewon 01-13-2024 [...] GALLO WHITLOCK MD, MD Date: 01/13/2024 06:01 [facility] XR Foot Left complete 3 plus [...] GALLO WHITLOCK MD, MD Date: 01/13/2024 06:01 [facility] XR HAND RIGHT (MIN 3 VIEWS)o [...] Wilmer Wray MD 01/13/24 Final result Normal [facility] Comment on above: Order Comment: Reaso n for exam:->ro fx XR Hand - right 3 Viewson 1. There is no acute fracture or dislocation of the right hand 2. Minimal soft tissue swelling adjacent to the 5th metacarpophalangeal joint. [facility] CONSOL[facility] EXAMINATION: THREE XRAY VIEWS OF [...] noted adjacent to the 5th metacarpophalangeal joint. [facility] Wilmer Wray MD - 01/13/2024 [...] swelling adjacent to the 5th metacarpophalangeal joint. [facility] Radiology Study observation (narrative) [facility] XR Hand - right 3 ViewsOrder ed By: Wilmer Wray on 01-13-2024 [facility] Work Phone: XR Hand Right 3 plus [...] GALLO WHITLOCK MD, MD Date: 01/13/2024 05:57 [facility] ED Nursing Noteon 01-06-2024 ED Nursing Note Patient reports fall ing onto left shoulder last night. C/o back pain, left shoulder pain, and left ankle pain. [facility] ED Provider Noteon ED Provider Note EMERGENCY DEPARTMENT ENCOUNTER Pt Name: Db Doan Birthdate 1970 Date of evaluation: 01/06/2024 ED Provider: Samuel Lopez MD CHIEF COMPLAINT Chief Complaint Patient presents with Fall Patient reports falling onto left shoulder last night. C/o back pain, left shoulder pain, and left ankle pain. HISTORY OF PRESENT ILLNESS (Location/Symptom, Timing/Onset, Context/Setting, Quality, Duration, Modifying Factors, Severity) Note limiting factors. I wore appropriate PPE for the entirety of this encounter. ELIANA Doan is a 53 y.o. who presents to the emergency department with chief complaint of left shoulder pain from a fall. The patient has a history of prior ankle injury. She says she tore some tendons in her ankle. She frequently twists her ankle. She has a walking boot and Aircast at home, but she says it hurts when she wears those. She took it off yesterday. She said her ankle gave out and she fell onto her left shoulder and her lower back. She mostly complains of pain in her left shoulder. She says her back always hurts. She took gabapentin at home for this. She is supposed to be going to a resource conservation specialist through the [facility]. She says she has not seen the pain management doctor yet for what ever reason. She wanted something for pain here. She is right-hand dominant. She denies any other injuries. She denies any current illnesses or any other associated complaints. 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 Limitations to history: None Outside historians: None REVIEW OF SYSTEMS Review of Systems Constitutional: Negative. Musculoskeletal: Positive for arthralgias. Skin: Positive for wound. Neurological: Negative. Negative for weakness and numbness. Pertinent positives and negatives as per HPI. PAST MEDICAL HISTORY Past Medical History: Diagnosis Date H/O section Incomplete tear of left rotator cuff Sciatica Seizures (HCC) Spinal stenosis SURGICAL HISTORY Past Surgical History: Procedure Laterality Date HERNIA REPAIR CURRENT MEDICATIONS Previous Medications DULOXETINE (CYMBALTA) [address] CAPSULE Take 60 mg by mouth daily. Do not crush or chew. LAMOTRIGINE (LAMICTAL) 25 MG TABLET Take 150 mg by mouth daily. METHOCARBAMOL (ROBAXIN) 500 MG TABLET Take 1 tablet (500 mg) by mouth 2 times daily for 10 days. ALLERGIES Patient has no known allergies. FAMILY HISTORY No family history on file. SOCIAL HISTORY Social History Socioeconomic History Marital status: Single Tobacco Use Smoking status: Some Days Types: Cigarettes Smokeless tobacco: Never Vaping Use Vaping status: Never Used Substance and Sexual Activity Alcohol use: Never Drug use: Never Social Drivers of Health Financial Resource Strain: Low Risk (11/01/2022) Received from [facility] Overall Financial Resource Strain (CARDIA) Difficulty of Paying Living Expenses: Not very hard Food Insecurity: No Food Insecurity (10/23/2023) Received from Hunger Vital Sign Worried About Running Out of Food in the Last Year: Never true Ran Out of Food in the Last Year: Never true Transportation Needs: No Transportation Needs (10/23/2023) Received from PRAPARE - Transportation Lack of Transportation (Medical): No Lack of Transportation (Non-Medical): No Housing Stability: Unknown (10/23/2023) Received from Housing Stability Vital Sign Unable to Pay for Housing in the Last Year: No Homeless in the Last Year: No SCREENINGS PHYSICAL EXAM ED Triage Vitals [01/06/24 1722] Temp Heart Rate Resp BP 36.4 ?C (97.5 ?F) 96 18 127/87 SpO2 Temp Source Heart Rate Source Patient Position 97 % Temporal Monitor -- BP Location FiO2 (%) -- -- Physical Exam Vitals and nursing note reviewed. Constitutional: Appearance: Normal appearance. She is normal weight. She is not toxic-appearing. Comments: Patient appears uncomfortable although nontoxic. Musculoskeletal: General: Tenderness present. No deformity. Normal range of motion. Comments: There is tenderness to palpation of the left anterior shoulder. There is no bruising or swelling of the shoulder. There is no crepitus or deformity. The left clavicle and elbow are stable and nontender. She is neurovascular intact in the left upper extremity. There is no reproducible palpable spinal tenderness. There were no other signs of extremity injury. There is no palpable ankle tenderness. She is neurovascular intact distally. There is swelling and erythema mainly of the medial aspect of the left great toe. There is no pointing or purulent drainage. Findings appear consistent with localized infection of her left medial toe. Findings are likely consistent with a paronychia. Skin: General: Skin is warm and dry. Neurological: General: No focal deficit present. Mental Status: She is (more content not included)... Normal [facility] XR Shoulder - left 2 Viewson 01-06-2024 1. No significant finding. Report Dictated on Electronically Signed By: Siddhartha Go MD Electronically Signed Date/Time: 01/06/2024 8:02 PM EST [facility] [email or web address] Patient Name: DB DOAN : 1970 Exam Date/Time: 01/06/2024 19:54 Procedure: XR SHOULDER 2+ VIEWS LEFT Ordering Provider: LOPEZ TARAS Reason For Exam: SHOULDER PAIN LEFT SHOULDER THREE VIEWS CLINICAL INDICATION: SHOULDER PAIN TECHNIQUE: Three views of the left shoulder. COMPARISON: 06/12/2023 FINDINGS: Normal AC joint, glenohumeral joint, and subacromial space. No acute fracture or dislocation. [facility] Siddhartha Go MD - 01/06/2024 Patient Name: DB DOAN : 1970 Exam Date/Time: 01/06/2024 19:54 Procedure: XR SHOULDER 2+ VIEWS LEFT Ordering Provider: LOPEZ TARAS Reason For Exam: SHOULDER PAIN LEFT SHOULDER THREE VIEWS CLINICAL INDICATION: SHOULDER PAIN TECHNIQUE: Three views of the left shoulder. COMPARISON: 06/12/2023 FINDINGS: Normal AC joint, glenohumeral joint, and subacromial space. No acute fracture or dislocation. IMPRESSION: 1. No significant finding. Report Dictated on Electronically Signed By: Siddhartha Go MD Electronically Signed Date/Time: 01/06/2024 8:02 PM EST [facility] [employer] Radiology Study observation (narrative) [facility] XR Shoulder - left 2 ViewsOr dered By: Siddhartha Go on 01-06-2024 [employer] Work Phone: Anion Gap SerPl-sCncOrdered By: Lorne Ruvalcaba on 01-04-2024 Anion gap [Moles/Vol] 9.0 mmol/L 0-16 [facility] Appearance UrOrdered By: Fan Ruvalcaba on 01-04-2024 Appearance (U) CLEAR CLEAR [facility] BASIC METABOLICon 01-04-2024 Anion gap [Moles/Vol] 9.0 mmol/L Normal 0-16 [facility] Comment on above: Performed By: #### C HEM7 #### [facility] [address] [address] Calcium [Mass/Vol] 9.8 mg/dL Normal 8.5-10.1 [facility] Comment on above: Performed By: #### C HEM7 #### [facility] [address] [address] Chloride [Moles/Vol] 107 mmol/L Normal 98-107 [facility] Comment on above: Performed By: #### C HEM7 #### [facility] [address] [address] CO2 [Moles/Vol] 30 mmol/L Normal 21-32 [facility] Comment on above: Result Comment: TCO2 test measures total amount of CO2 in the blood, which occurs mostly in the form of bicarbonate (HCO3). Performed By: #### C HEM7 #### [facility] [address] [address] Creatinine [Mass/Vol] 0.63 mg/dL Normal 0.55-1.02 [facility] Comment on above: Performed By: #### C HEM7 #### [facility] [address] [address] GFR/1.73 sq M.predicted among non-blacks MDRD (S/P/Bld) [Vol rate/Area] 107 mL/min/{1.73_m2} Normal >60 [facility] Comment on above: Result Comment: Aver [...] Performed By: #### C HEM7 #### [facility] [address] [address] Glucose [Mass/Vol] 82 mg/dL Normal 70-110 [facility] Comment on above: Result Comment: Fals eligio [...] Performed By: #### C HEM7 #### [facility] [address] [address] Potassium [Moles/Vol] 4.0 mmol/L Normal 3.5-5.1 [facility] Comment on above: Performed By: #### C HEM7 #### [facility] [address] [address] Sodium [Moles/Vol] 142 mmol/L Normal 136-145 [facility] Comment on above: Performed By: #### C HEM7 #### [facility] [address] [address] Urea nitrogen [Mass/Vol] 7 mg/dL Normal 7-18 [facility] Comment on above: Performed By: #### C HEM7 #### [facility] [address] [address] Urea nitrogen/Creatinine [Mass ratio] 11.2 mg/mg Normal 0-30 [facility] Comment on above: Performed By: #### C HEM7 #### [facility] [address] [address] BUN SerPl-mCncOrdered By: Shara Ruvalcaba on 01-04-2024 Urea nitrogen [Mass/Vol] 7 mg/dL 7-18 [facility] BUN/creat SerPl-mRtoOrdered By: Lorne Ruvalcaba on 01-04-2024 Urea nitrogen/Creatinine [Mass ratio] 11.2 mg/mg 0-30 [facility] Basophils Auto (Bld) [#/Vol] Ordered By: Lorne Ruvalcaba on 01-04-2024 Basophils (Bld) [#/Vol] 0.00 10*3/uL 0.0-0.2 [facility] Basophils/100 WBC Auto (Bld) Ordered By: Lorne Ruvalcaba on 01-04-2024 Basophils/100 WBC (Bld) 0.2 % 0.0-1.5 [facility] Bile Ac Ur QlOrdered By: Fan Ruvalcaba on 01-04-2024 Bile acid Ql (U) Negative NEG [facility] CBC AUTO DIFF (REFLEX MANUAL )on 01-04-2024 BASOPHIL # 0.00 x10 3/uL Normal 0.0-0.2 [facility] Comment on above: Performed By: #### C BCAD #### [facility] [address] [address] BASOPHIL % 0.2 % Normal 0.0-1.5 [facility] Comment on above: Performed By: #### C BCAD #### [facility] [address] [address] EOSINOPHIL % 2.0 % Normal 0.0-10.0 [facility] Comment on above: Performed By: #### C BCAD #### [facility] [address] [address] LYMPHOCYTE # 1.30 x10 3/uL Normal 1.0-4.8 [facility] Comment on above: Performed By: #### C BCAD #### [facility] [address] [address] LYMPHOCYTE % 17.7 % Normal 13.0-47.0 [facility] Comment on above: Performed By: #### C BCAD #### [facility] [address] [place] [address] MEAN SHELLY HGB CONC 34.5 g/dl Normal 31.0-37.0 [facility] Comment on above: Performed By: #### C BCAD #### [facility] [address] [address] MEAN CORPUSCULAR HGB 32.0 pg Normal 26.0-34.0 [facility] Comment on above: Performed By: #### C BCAD #### [facility] [address] [address] MEAN CORPUSCULAR VOLUME 92.8 fl Normal 78-102 [facility] Comment on above: Performed By: #### C BCAD #### [facility] [address] [address] MEAN PLATELET VOLUME 6.1 fl Low 7.5-10.7 [facility] Comment on above: Performed By: #### C BCAD #### [facility] [address] [address] MONOCYTE # 0.70 x10 3/uL Normal 0.0-1.0 [facility] Comment on above: Performed By: #### C BCAD #### [facility] [address] [address] MONOCYTE % 9.7 % Normal 0.0-10.0 [facility] Comment on above: Performed By: #### C BCAD #### [facility] [address] [address] NEUT# 5.30 x10 3/uL Normal 1.8-7.7 [facility] Comment on above: Performed By: #### C BCAD #### [facility] [address] [address] NEUTROPHIL % 70.4 % Normal 40.0-80.0 [facility] Comment on above: Performed By: #### C BCAD #### [facility] [address] [address] PLATELET 385 x10 3/uL High 150-350 [facility] Comment on above: Performed By: #### C BCAD #### [facility] [address] [address] RED BLOOD CELL COUNT 4.16 x10 6/uL Normal 4.00-5.20 [facility] Comment on above: Performed By: #### C BCAD #### [facility] [address] [address] RED CELL WIDTH 12.9 % Normal 11.5-14.5 [facility] Comment on above: Performed By: #### C BCAD #### [facility] [address] [address] TOTAL EO 0.20 x10 3/uL Normal 0-1.0 [facility] Comment on above: Performed By: #### C BCAD #### [facility] [address] [address] WHITE BLOOD CELL COUNT 7.5 x10 3/uL Normal 4.5-11.0 [facility] Comment on above: Performed By: #### C BCAD #### [facility] [address] [address] CO2 SerPl-sCncOrdered By: Shara Ruvalcaba on 01-04-2024 CO2 [Moles/Vol] 30 mmol/L 21-32 [facility] Comment on above: TCO2 test measures t otal amount of CO2 in the blood, whichoccurs mostly in the form of bicarbonate (HCO3). Calcium SerPl-mCncOrdered By : Lorne Ruvalcaba on 01-04-2024 Calcium [Mass/Vol] 9.8 mg/dL 8.5-10.1 [facility] Chloride SerPl-sCncOrdered B y: Lorne Ruvalcaba on 01-04-2024 Chloride [Moles/Vol] 107 mmol/L 98-107 [facility] Color UrOrdered By: Lorne krishna on 01-04-2024 Color (U) STRAW YELLOW [facility] Creat SerPl-mCncOrdered By: Lorne Ruvalcaba on 01-04-2024 Creatinine [Mass/Vol] 0.63 mg/dL 0.55-1.02 [facility] EDon 01-04-2024 ED [facility] SYSTE M 01/04/24 [place], [place] [address] [id number] DB DOAN None EMERGENCY ROOM REPORT MR [id number] History of Present Illness Date of [...] work. She has been following in the [facility] for her ankylosing spondylitis treatment. Past [...] 0746 98.0 106 18 134/92 108 99 / 0726 98.0 106 18 134/92 108 99 [...] WEST EMERGENCY/RADIOLOGY - SHOULDER LEFT-MIN 2 VWS 01/03 825 Report Impression - Status: SIGNED Entered: 01/04/2024 0849 IMPRESSION: INTACT SKELETAL STRUCTURES AND JOINT SPACES. SMALL FOCUS OF CALCIFICATION ADJACENT TO THE GREATER TUBEROSITY THAT MAY BE THE SEQUELA OF TENDINITIS. SITE O Impression By: WILL/Homer Owens M.D. Laboratory Tests 01/03 644 Chemistry Sodium (136 - 145 MMOL/L) 142 [...] 0.70 Urines (more content not included)... Normal [facility] Eosinophils Manual cnt (Bld) [#/Vol]Ordered By: Lorne Ruvalcaba on 01-04-2024 Eosinophils (Bld) [#/Vol] 0.20 10*3/uL 0-1.0 [facility] Glucose SerPl-mCncOrdered By : Lorne Ruvalcaba on 01-04-2024 Glucose [Mass/Vol] 82 mg/dL 70-110 [facility] Comment on above: Falsely depressed or falsely [...] Auto test strip Ql (U) Negative NEG [facility] Hgb Bld-mCncOrdered By: Clare Unger on 01-04-2024 Hemoglobin (Bld) [Mass/Vol] 13.3 g/dL 12.0-16.0 [facility] Hgb Ur Ql Strip.autoOrdered By: Lorne Ruvalcaba on 01-04-2024 Hemoglobin Auto test strip Ql (U) Negative NEG [facility] Ketones Ur Ql Strip.autoOrde red By: Lorne Ruvalcaba on 01-04-2024 Ketones Auto test strip Ql (U) Negative NEG [facility] Laboratory - Chemistry and C hemistry - challengeOrdered By: Lorne Ruvalcaba on 01-04-2024 GFR/1.73 sq M.predicted MDRD (S/P/Bld) [Vol rate/Area] 107 mL/min/{1.73_m2} >60 [facility] Comment on above: Average GFR for [...] 60-89 Mild decrease*G3a 45-59 Mild to moderate zgndrnazG2y 30-44 Moderate to severe decreaseG4 15-29 Severe [...] 01-04-2024 Eosinophils/100 WBC (Bld) 2.0 % 0.0-10.0 Annalisa [employer] [facility] Erythrocyte distribution width (RBC) [Ratio] 12.9 % 11.5-14.5 An[facility] [employer] Hematocrit Auto (Bld) [Pure volume fraction] 38.6 36-46 [facility] Lymphocytes/100 WBC (Bld) 17.7 % 13.0-47.0 [facility] Monocytes/100 WBC (Bld) 9.7 % 0.0-10.0 [facility] Neutrophils/100 WBC (Bld) 70.4 % 40.0-80.0 [facility] Platelet mean volume (Bld) [Entitic vol] 6.1 fL 7.5-10.7 [facility] Lymphocytes Auto (Bld) [#/Vo l]Ordered By: Lorne Ruvalcaba on 01-04-2024 Lymphocytes (Bld) [#/Vol] 1.30 10*3/uL 1.0-4.8 [facility] MCH Auto (RBC) [Entitic mass ]Ordered By: Lorne Ruvalcaba on 01-04-2024 MCH (RBC) [Entitic mass] 32.0 pg 26.0-34.0 [facility] MCHC Auto (RBC) [Mass/Vol]Or dered By: Lorne Ruvalcaba on 01-04-2024 MCHC (RBC) [Mass/Vol] 34.5 g/dL 31.0-37.0 [facility] MCV Auto (RBC) [Entitic vol] Ordered By: Lorne Ruvalcaba on 01-04-2024 MCV (RBC) [Entitic vol] 92.8 fL 78-102 [facility] Monocytes Auto (Bld) [#/Vol] Ordered By: Lorne Ruvalcaba on 01-04-2024 Monocytes (Bld) [#/Vol] 0.70 10*3/uL 0.0-1.0 [facility] Neutrophils Auto (Bld) [#/Vo l]Ordered By: Lorne Ruvalcaba on 01-04-2024 Neutrophils (Bld) [#/Vol] 5.30 10*3/uL 1.8-7.7 [facility] Nitrite Ur Ql Strip.autoOrde red By: Lorne Ruvalcaba on 01-04-2024 Nitrite Auto test strip Ql (U) Negative NEG [facility] No Panel InformationOrdered By: Lorne Ruvalcaba on 01-04-2024 Urine Ascorbic Acid Level Negative NEG [facility] Platelet # BldOrdered By: Shara Ruvalcaba on 01-04-2024 Platelets (Bld) [#/Vol] 385 10*3/uL 150-350 [facility] Potassium SerPl-sCncOrdered By: Lorne Ruvalcaba on 01-04-2024 Potassium [Moles/Vol] 4.0 mmol/L 3.5-5.1 [facility] Prot Ur Ql Strip.autoOrdered By: Lorne Ruvalcaba on 01-04-2024 Protein Auto test strip Ql (U) Negative NEG [facility] RBC Auto (Bld) [#/Vol]Ordere d By: Lorne Ruvalcaba on 01-04-2024 RBC (Bld) [#/Vol] 4.16 10*6/uL 4.00-5.20 [facility] ROUTINE URINE WITH RFLX CULT on 01-04-2024 Appearance (U) CLEAR Normal CLEAR [facility] [place] Comment on above: Performed By: #### U RREFLEX ####[address] [address] Color (U) STRAW Abnormal YELLOW [facility] Comment on above: Performed By: #### U RREFLEX ####[address] [address] Glucose Ql (U) Negative Normal NEG [facility] [place] Comment on above: Performed By: #### U RREFLEX ####[address] [address] Nitrite Ql (U) Negative Normal NEG [facility] [place] Comment on above: Performed By: #### U RREFLEX ####[address] [address] pH (U) 7.0 [pH] Normal 4.6-8.0 [facility] Comment on above: Performed By: #### U RREFLEX ####[address] [address] Protein Ql (U) Negative Normal NEG [facility] [place] Comment on above: Performed By: #### U RREFLEX ####[address] [address] Specific gravity (U) [Rel density] 1.003 Normal 1.002-1.030 [facility] Comment on above: Performed By: #### U RREFLEX ####[address] [address] URINE ASCORBIC ACID Negative Normal NEG [facility] Comment on above: Performed By: #### U RREFLEX ####[address] [address] URINE BILE Negative Normal NEG [facility] Comment on above: Performed By: #### U RREFLEX ####[address] [address] URINE HEMOGLOBIN Negative Normal NEG [facility] Comment on above: Performed By: #### U RREFLEX ####[address] [address] URINE KETONE Negative Normal NEG [facility] Comment on above: Performed By: #### U RREFLEX ####[address] [address] URINE LEUKOCYTES Negative Normal NEG [facility] Comment on above: Performed By: #### U RREFLEX ####[address] [address] Urobilinogen (U) [Mass/Vol] Negative Normal <2.0 [facility] Comment on above: Performed By: #### U RREFLEX ####[address] [address] SHOULDER LEFT-MIN 2 VWSon SHOULDER LEFT-MIN 2 VWS Name: FRANKIDB L Phys: Lorne Ruvalcaba MD : 1970 Age: 53 Sex: F Acct: [id number] Loc: SAT Exam Date: 01/04/2024 Status: REG ER Radiology No: Unit No: [id number] PH: [phone] Diagnosis: BACK PAIN EXAM: [id number] SHOULDER LEFT-MIN 2 VWS Reason For Procedure: [...] Homer Chamorro M.D. CC: Technologist: GERMAN JULIAN, RT/R Transcribed Date/Time: 01/04/2024 (0849) Center Mgr: NAFISA Printed Date/Time: 01/04/2024 (0839) PAGE 1 Signed Report Normal [facility] Sodium SerPl-sCncOrdered By: Lorne Ruvalcaba on 01-04-2024 Sodium [Moles/Vol] 142 mmol/L 136-145 [facility] Specific gravity Auto test s trip (U) [Rel density]Ordered By: Lorne Ruvalcaba on 01-04-2024 Specific gravity (U) [Rel density] 1.003 1.002-1.030 [facility] Urobilinogen Test strip Ql ( U)Ordered By: Lorne Ruvalcaba on 01-04-2024 Urobilinogen Ql (U) Negative <2.0 [facility] WBC Auto (Bld) [#/Vol]Ordere d By: Lorne Ruvalcaba on 01-04-2024 WBC (Bld) [#/Vol] 7.5 10*3/uL 4.5-11.0 [facility] WBC Ur Ql AutoOrdered By: Shara Ruvalcaba on 01-04-2024 WBC Auto Ql (U) Negative NEG [facility] pH Auto test strip (U)Ordere d By: Lorne Ruvalcaba on 01-04-2024 pH (U) 7.0 [pH] 4.6-8.0 [facility] CNPNon 12-31-2023 CNPN Telephone (AGSPINE3) DB DOAN ([id number]) 1970 F Date Time Provider Department 12/31/23 [...] other than patient: n/a Best contact number: [phone] Thank you, Marie Greco December 31, 2023 12:16 PM Brandy Samuel 12/31/2023 2:05 PM Signed LVM with patient to call back/reschedule her procedures. Brandy Hoffman 01/01/2024 11:18 AM Signed LVM with patient to call back/reschedule her MBBs and VV follow ups. Brandy Samuel Allergies As of Date: 12/31/2023 (No Known Allergies) Date Reviewed: 12/19/2023 Reviewed by: Bayron Fields APRN.BARRATTE OPERATOR - Fully Assessed Reason for Visit: Returning [...] [M51.36*12/03/2018 Sprain or strain of cervical spine [LHD9463] 07/16/2014 Sacroiliitis (HCC) [M46.1] 05/02/2022 Primary osteoarthritis [...] 10/23/2023 Encounter Status:Closed by RIDDLE, DB on 12/31/23 Normal [facility] CBC with Auto Differentialon 12-29-2023 Basophils (Bld) [#/Vol] 0.01 10*3/uL [facility] Basophils/100 WBC (Bld) 0 % 0.0 - 2.0 % [facility] Eosinophils (Bld) [#/Vol] 0.00 10*3/uL Low [facility] Eosinophils/100 WBC (Bld) 0 % 0 - 6 % [facility] Erythrocyte distribution width (RBC) [Ratio] 12.1 % 11.5 - 15.0 % [facility] Hematocrit (Bld) [Volume fraction] 36.8 % 34.0 - 48.0 % [facility] Hemoglobin (Bld) [Mass/Vol] 13.0 g/dL 11.5 - 15.5 g/dL [facility] Immature granulocytes (Bld) [#/Vol] 0.03 10*3/uL [facility] Immature granulocytes/100 WBC (Bld) 0 % 0.0 - 5.0 % [facility] Interpretation and review of laboratory results Abnormal [facility] Lymphocytes/100 WBC (Bld) 20 % 20.0 - 42.0 % [facility] Lymphocytes/100 WBC (Bld) 1.81 % [facility] MCH (RBC) [Entitic mass] 31.6 pg 26.0 - 35.0 pg [facility] MCHC (RBC) [Mass/Vol] 35.3 g/dL High 32.0 - 34.5 g/dL [facility] MCV (RBC) [Entitic vol] 89.5 fL 80.0 - 99.9 fL [facility] Monocytes/100 WBC (Bld) 8 % 2.0 - 12.0 % [facility] Monocytes/100 WBC (Bld) 0.72 % [facility] Neutrophils/100 WBC (Bld) 72 % 43.0 - 80.0 % [facility] Platelet mean volume (Bld) [Entitic vol] 7.9 fL 7.0 - 12.0 fL [facility] Platelets (Bld) [#/Vol] 322 10*3/uL [facility] RBC (Bld) [#/Vol] 4.11 10*6/uL 3.50 - 5.5 0 m/uL [facility] Segmented neutrophils/100 WBC (Bld) 6.46 % [facility] WBC other (Bld) [#/Vol] 9.0 [facility] CBC with Diffon 12-29-2023 Abs. Basophil 0.01 k/uL Normal 0.00-0.20 [facility] Comment on above: Performed By: #### C VFLU #### [facility] [address] [place] [address] [employer] Worker: Liseth Doran MD Abs.Imm.Granulocyte 0.03 k/uL Normal 0.00-0.58 [facility] Comment on above: Performed By: #### C VFLU #### [facility] [address] [place] [address] [employer] Worker: Liseth Doran MD Abs.Neutrophil (Seg) 6.46 k/uL Normal 1.80-7.30 [facility] Comment on above: Performed By: #### C VFLU #### [facility] [address] [place] [address] [employer] Worker: Liseth Doran MD Basophils/100 WBC (Bld) 0 % Normal 0.0-2.0 [facility] Comment on above: Performed By: #### C VFLU #### [facility] [address] [place] [address] [employer] Worker: Liseth Doran MD Eosinophils (Bld) [#/Vol] 0.00 10*3/uL Low 0.05-0.50 [facility] Comment on above: Performed By: #### C VFLU #### [facility] [address] [place] [address] [employer] Worker: Liseth Doran MD Eosinophils/100 WBC (Bld) 0 % Normal 0-6 [facility] Comment on above: Performed By: #### C VFLU #### [facility] [address] [place] [address] [employer] Worker: Liseth Doran MD Erythrocyte distribution width (RBC) [Ratio] 12.1 % Normal 11.5-15.0 [facility] Comment on above: Performed By: #### C VFLU #### [facility] [address] [place], [place] [id number] [employer] Worker: Liseth Doran MD Hematocrit (Bld) [Volume fraction] 36.8 % Normal 34.0-48.0 [facility] Comment on above: Performed By: #### C VFLU #### [facility] [address] [place] [address] [employer] Worker: Liseth Doran MD Hemoglobin (Bld) [Mass/Vol] 13.0 g/dL Normal 11.5-15.5 [facility] Comment on above: Performed By: #### C VFLU #### [facility] [address] [place], [place] [id number] [employer] Worker: Liseth Doran MD Immature granulocytes/100 WBC (Bld) 0 % Normal 0.0-5.0 [facility] Comment on above: Performed By: #### C VFLU #### [facility] [address] [place], [place] [id number] [employer] Worker: Liseth Doran MD Lymphocytes (Bld) [#/Vol] 1.81 10*3/uL Normal 1.50-4.00 [facility] Comment on above: Performed By: #### C VFLU #### [facility] [address] [place], [place] [id number] [employer] Worker: Liseth Doran MD Lymphocytes/100 WBC (Bld) 20 % Normal 20.0-42.0 [facility] Comment on above: Performed By: #### C VFLU #### [facility] [address] [place] [address] [employer] Worker: Liseth Doran MD MCH (RBC) [Entitic mass] 31.6 pg Normal 26.0-35.0 [facility] Comment on above: Performed By: #### C VFLU #### [facility] [address] [place], [place] [id number] [employer] Worker: Liseth Doran MD MCHC (RBC) [Mass/Vol] 35.3 g/dL High 32.0-34.5 [facility] Comment on above: Performed By: #### C VFLU #### [facility] [address] [place] [address] [employer] Worker: Liseth Doran MD MCV (RBC) [Entitic vol] 89.5 fL Normal 80.0-99.9 [facility] Comment on above: Performed By: #### C VFLU #### [facility] [address] [place] [address] [employer] Worker: Liseth Doran MD Monocytes (Bld) [#/Vol] 0.72 10*3/uL Normal 0.10-0.95 [facility] Comment on above: Performed By: #### C VFLU #### [facility] [address] [place] [address] [employer] Worker: Liseth Doran MD Monocytes/100 WBC (Bld) 8 % Normal 2.0-12.0 [facility] Comment on above: Performed By: #### C VFLU #### [facility] [address] [place] [address] [employer] Worker: Liseth Doran MD Neutrophil (Seg) 72 % Normal 43.0-80.0 [facility] Comment on above: Performed By: #### C VFLU #### [facility] [address] [place] [address] [employer] Worker: Liseth Doran MD Platelet mean volume (Bld) [Entitic vol] 7.9 fL Normal 7.0-12.0 [facility] Comment on above: Performed By: #### C VFLU #### [facility] [address] [place] [address] [employer] Worker: Liseth Doran MD Platelets (Bld) [#/Vol] 322 10*3/uL Normal 130-450 [facility] Comment on above: Performed By: #### C VFLU #### [facility] [address] [place] [address] [employer] Worker: Liseth Doran MD RBC (Bld) [#/Vol] 4.11 10*6/uL Normal 3.50-5.50 [facility] Comment on above: Performed By: #### C VFLU #### [facility] [address] [place] [address] [employer] Worker: Liseth Doran MD WBC (Bld) [#/Vol] 9.0 10*3/uL Normal 4.5-11.5 [facility] Comment on above: Performed By: #### C VFLU #### [facility] [address] [place], [place] [id number] [employer] Worker: Liseth Doran MD Comp Metabolic Profon 2023 Albumin [Mass/Vol] 4.6 g/dL Normal 3.5-5.[address] [facility] Comment on above: Performed By: #### C VFLU #### [facility] [address] [place] [address] [employer] Worker: Liseth Doran MD ALT [Catalytic activity/Vol] 16 U/L Normal 0-32 [facility] Comment on above: Performed By: #### C VFLU #### [facility] [address] [place] [address] [employer] Worker: Liseth Doran MD Anion gap [Moles/Vol] 15 mmol/L Normal 7-16 [facility] Comment on above: Performed By: #### C VFLU #### [facility] [address] [place], [place] [id number] [employer] Worker: Liseth Doran MD AST [Catalytic activity/Vol] 18 U/L Normal 0-31 [facility] Comment on above: Performed By: #### C VFLU #### [facility] [address] [place] [address] [employer] Worker: Liseth Doran MD Bilirubin [Mass/Vol] 0.2 mg/dL Normal 0.0-1.2 [facility] Comment on above: Performed By: #### C VFLU #### [facility] [address] [place] [address] [employer] Worker: Liseth Doran MD Calcium [Mass/Vol] 10.1 mg/dL Normal 8.6-10.[address] [facility] Comment on above: Performed By: #### C VFLU #### [facility] [address] [place], [place] [id number] [employer] Worker: Liseth Doran MD Chloride [Moles/Vol] 103 mmol/L Normal 98-107 [facility] Comment on above: Performed By: #### C VFLU #### [facility] [address] [place], [place] [id number] [employer] Worker: Liseth Doran MD CO2 [Moles/Vol] 25 mmol/L Normal 22-29 [facility] Comment on above: Performed By: #### C VFLU #### [facility] [address] [place] [address] [employer] Worker: Liseth Doran MD Creatinine [Mass/Vol] 0.6 mg/dL Normal 0.50-1.00 [facility] Comment on above: Performed By: #### C VFLU #### [facility] [address] [place] [address] [employer] Worker: Liseth Doran MD Glucose [Mass/Vol] 95 mg/dL Normal 74-[address] [facility] Comment on above: Performed By: #### C VFLU #### [facility] [address] [place] [address] [employer] Worker: Liseth Doran MD Potassium [Moles/Vol] 3.5 mmol/L Normal 3.5-5.0 [facility] Comment on above: Performed By: #### C VFLU #### [facility] [address] [place] [address] [employer] Worker: Liseth Doran MD Protein [Mass/Vol] 6.8 g/dL Normal 6.4-8.[address] [facility] Comment on above: Performed By: #### C VFLU #### [facility] [address] [place] [address] [employer] Worker: Liseth Doran MD Sodium [Moles/Vol] 143 mmol/L Normal 132-[address] [facility] Comment on above: Performed By: #### C VFLU #### [facility] [address] [place], [place] [id number] [employer] Worker: Liseth Doran MD Urea nitrogen [Mass/Vol] 8 mg/dL Normal 6-20 [facility] Comment on above: Performed By: #### C VFLU #### [facility] [address] [place], [place] [id number] [employer] Worker: Liseth Doran MD Alkaline Phos 81 U/L Normal 35-104 [facility] Comment on above: Performed By: #### C VFLU #### [facility] [address] [place], [place] [id number] [employer] Worker: Liseth Doran MD GFR/1.73 sq M.predicted among non-blacks MDRD (S/P/Bld) [Vol rate/Area] mL/min/{1.73_m2} Normal >60 [facility] Comment on above: Result Comment: These results [...] renal tubular secretion. Performed By: #### C VFLU #### [facility] [address] [place], [place] [id number] [employer] Worker: Liseth Doran MD Comprehensive Metabolic Pane [facility] 12-29-2023 ALP [Catalytic activity/Vol] 81 U/L 35 - 104 U/L [facility] Est, Glom Filt Rate - PINF [facility] Comment on above: These results are not [...] CK [Catalytic activity/Vol] 98 U/L Normal 20-180 [facility] Comment on above: Performed By: #### C VFLU #### [facility] [address] [place] [address] [employer] Worker: Liseth Doran MD Lactic Acidon 12-29-2023 Interpretation and review of laboratory results Abnormal [facility] Lactate (BldV) [Moles/Vol] 2.3 mmol/L High 0.5 - 2.2 mmol/L [facility] Lactate [Moles/Vol] 2.3 mmol/L High 0.5-2.2 [facility] Comment on above: Performed By: #### C VFLU #### [facility] [place] [address] [employer] Worker: Liseth Doran MD No Panel Informationon 12-28 [facility] XR ANKLE MINIMUM 3 VIEWS LEF [...] Sign Date: 12/22/2023 12:26:35 AM Ordering Provider: DEYSI US [facility] XR SPINE LUMBAR AP/LATon XR SPINE [...] 12/22/2023 12:31:22 AM Ordering Provider: DEYSI US [facility] CNCOon 12-20-2023 CNCO Letter Text [facility]-2023 [facility] DB DOAN ([id number]) 1970 F Date Time Provider Department 12/20/23 BAYRON FIELDS AGSPHWG During your visit today, we recorded the following information about you: Brandy Samuel 12/20/2023 4:20 PM Signed Procedure(s) being scheduled: [...] No 9. Does this procedure require a speedboat driver? Yes If yes, has patient been notified that a speedboat driver is needed and must be present at check in? yes 10. Were the pre-procedure instructions explained and provided to the patient? Yes 11. Do you have a pacemaker? No 12. Do you have an internal stimulator of any kind? No Brandy Samuel Allergies As of Date: 12/20/2023 (No Known Allergies) Date Reviewed: 12/19/2023 Reviewed by: Bayron Fields APRN.BARRATTE OPERATOR - Fully Assessed Reason for Visit: Injections [...] [M51.36*12/03/2018 Sprain or strain of cervical spine [[id number]] 07/16/2014 Sacroiliitis (HCC) [M46.1] 05/02/2022 Primary osteoarthritis [...] Encounter Status:Closed by BRANDY SAMUEL on 12/20/23 [facility] 12-18-2023 [facility] (AGSPINE3) DB DOAN ([id number]) 1970 F Date Time Provider Department 12/18/23 BAYRON FIELDS AGSPINE3 During your visit today, we recorded the following information about you: Db Chavez 12/18/2023 12:52 PM Signed ----- Message from [employer] sent at 12/18/2023 12:41 PM EDT ----- Regarding: Spine Julio Cesardledemel Virtual Issue Spine Sindledecker Virtual Issue Patient: Db oDan Date of : 1970 Primary Care Provider: [...] questionnaire. I gave her the number to [facility] customer service but she said she needs to be seen so she wants to make sure she can be seen Was Patient Referred to [facility]/Seek Emergency Treatment (Y/N): n Did Patient Agree (Y/N): n/a Was An Attempt Made To Transfer The Patient To The Office (Y/N): n Were You Able To Reach Someone At The Office (Y/N): n.a If Yes - Patient Was Transferred To (Caregivers Name): n/a If No - Which [facility] Leadership Automotive Painter Helper Did You Speak With Regarding This Patient: n/a Was an appointment scheduled (Y/N): n Reason patient was requesting visit (RFV/signs and symptoms/diagnosis) : n/a Person calling if other than patient: self Return call to if other than patient: self Best contact number: [phone] Thank you, Alma Villar December 18, 2023 12:41 PM Brandy Samuel 12/18/2023 1:54 PM Signed Spoke with the patient, who said [facility] already spoke with her and made sure she's all set for her VV with Bayron on 12/19/23. Brandy Samuel Allergies As of Date: 12/18/2023 (No Known Allergies) Date Reviewed: 10/27/2023 Reviewed by: Marlena Hampton RN - Fully Assessed Reason for Visit: [...] [M51.36*12/03/2018 Sprain or strain of cervical spine [TME6007] 07/16/2014 Sacroiliitis (HCC) [M46.1] 05/02/2022 Primary osteoarthritis [...] Encounter Status:Closed by RIDDLE, DB on 12/18/23 Normal [facility] [place] LUMBAR SPINE WO CONTRASTo n 12-17-2023 [...] Stanford Barger DO 12/17/23 Final result Normal [facility] Comment on above: Order Comment: Reaso [...] base of the 5th metatarsal. Interpreted by: Rajat Putnam MD Signed by: Rajat Putnam MD 12/17/23 Final result Normal [facility] Comment on above: Order Comment: Devon dominique for exam:->concern for fracture Decision Support Exception - unselect if not a suspected or confirmed emergency medical condition->Emergency Medical Condition (MA) ANKLE LEFT (MIN3-V)on 2023 TAMERA Name: DB DOAN Timoteo Phys: BELLO ALARCON MD : 1970 Age: 53 Sex: F Acct: [id number] Loc: ED Exam Date: 12/13/2023 Status: [facility] ER Radiology No: [id number] Unit No: [id number] EXAM# TYPE/EXAM RESULT [id number] EDRAD/ANKLE LEFT (MIN3-V) SEE REPORT INDICATION: Generalized left lower ankle pain. TECHNIQUE: Four views of the left ankle. COMPARISON: None Available. FINDINGS: Deformity at the proximal portion of the fifth metatarsal may represent old fracture. The alignment is anatomic. Mild lateral soft tissue swelling is. IMPRESSION: Question old fracture of the fifth metatarsal. Soft tissue swelling. Signed by Parker Nuñez MD [facility] [address] [place] [address] REPORT SIGNED IN OTHER VENDOR SYSTEM 12/13/2023 Reported By: PARKER NUÑEZ MD CC: MARIA ELENA MONTALVO Technologist: GILLIAN CONNER Transcribed Date/Time: 12/13/2023 (1326) Center Mgr: [employer] Printed Date/Time: 12/13/2023 (0296) PAGE 1 Signed Report Normal [facility] LUMBAR SPINE AP/LAT (2 OR 3 V)on 12-13-2023 [id number] Name: DB DOAN Phys: BELLO ALARCON MD : 1970 Age: 53 Sex: F Acct: [id number] Loc: ED Exam Date: 12/13/2023 Status: DEP ER Radiology No: [id number] Unit No: [id number] EXAM# TYPE/EXAM RESULT [id number] EDRAD/LUMBAR SPINE AP/LAT (2 OR SEE REPORT [...] bony findings. Signed by Catalina Watts MD [facility] [address] [place] [address] REPORT SIGNED IN OTHER VENDOR SYSTEM 12/13/2023 Reported By: CATALINA WATTS DO CC: MARIA ELENA MONTALVO Technologist: GILLIAN CONNER Transcribed Date/Time: 12/13/2023 (1324) Center Mgr: [place] Printed Date/Time: 12/13/2023 (5309) PAGE 1 Signed Report Normal [facility] ANKLon 12-07-2023 ANKL Name: DB DOAN Phys: Suraj Cevallos MD : 1970 Age: 53 Sex: F Acct: [id number] Loc: WED Exam Date: 12/07/2023 Status: PRE ER Radiology No: Unit No: [id number] PH: [phone] Diagnosis: L ANKLE PAIN / RIGHT SIDE BACK PAIN EXAM: [id number] ANKLE LEFT-MIN 3 VWS Reason For Procedure: [...] Technologist: GISELLA MAYS, RT/R Transcribed Date/Time: 12/07/2023 (075) Center Mgr: NAFISA Printed Date/Time: 12/07/2023 (075) PAGE 1 Signed Report Normal [facility] 12-07-2023 ED [facility] 12/07/23 [place], [place] [address] [id number] DB DOAN EMERGENCY ROOM REPORT MR [id number] History of Present Illness Date of Service 12/07/23 Provider Siddhartha Criosstomo MD, Colton MD Chief Complaint Pain, Body [...] 820 98.4 82 14 126/72 99 12/06 0757 85 16 132/88 114 100 Room Air 12/06 0703 98.7 102 18 149/96 115 98 12/06 0701 98.7 102 149/96 115 98 Last Menstrual [...] Oriented X 3 Diagnostic Studies Recent Impressions [facility] - HIP BILATERAL W/PELVIS 5 VWS 12/06 736 Report Impression - Status: SIGNED Entered: 12/07/202346 IMPRESSION: INTACT SKELETAL STRUCTURES AND JOINT SPACES. SITE O Impression By: Homer Mcnair M.D. [facility]OLOGY - FOOT LEFT-MIN 3 VWS 12/06 736 Report Impression - Status: SIGNED Entered: 12/07/2023750 IMPRESSION: TRANSVERSE FRACTURE OF THE BASE OF THE 5TH METATARSAL OF INDETERMINATE AGE. SMALL BONY ELEMENT INFERIOR TO THE LATERAL MALLEOLUS THAT IS FELT TO BE DEVELOPMENTAL OR THE SEQUELA OF OLD TRAUMA. INTACT JOINT SPACES. SITE O Impression By: Homer Mcnair M.D. [facility]IOLOGY - ANKLE LEFT-MIN 3 VWS 12/06 [...] presents for (more content not included)... Normal [facility] 12-07-2023 FTL Name: DB DOAN Phys: Suraj Cevallos MD : 1970 Age: 53 Sex: F Acct: [id number] Loc: WED Exam Date: 12/07/2023 Status: PRE ER Radiology No: Unit No: [id number] PH: [phone] Diagnosis: L ANKLE PAIN / RIGHT SIDE BACK PAIN EXAM: [id number] FOOT LEFT-MIN 3 VWS Reason For Procedure: [...] Reported By: Homer Chamorro M.D. CC: Technologist: RT VAMSHI/R Transcribed Date/Time: 12/07/2023 (0751) Center Mgr: NAFISA Printed Date/Time: 12/07/2023 (0751) PAGE 1 Signed Report Normal [facility] HIPBP#on 12-07-2023 HIPBP# Name: DB DOAN Phys: Suraj Cevallos MD : 1970 Age: 53 Sex: F Acct: [id number] Loc: SAT Exam Date: 12/07/2023 Status: PRE ER Radiology No: Unit No: [id number] PH: [phone] Diagnosis: L ANKLE PAIN / RIGHT SIDE BACK PAIN EXAM: [id number] HIP BILATERAL W/PELVIS 5 VWS Reason For Procedure: Fall, prior injury PELVIS AND BILATERAL HIPS - 6 VIEWS: CLINICAL INDICATION: Fall. COMPARISON: None. IMPRESSION: INTACT SKELETAL STRUCTURES AND JOINT SPACES. SITE O REPORT SIGNED IN OTHER VENDOR SYSTEM 12/07/2023 Reported By: Homer Chamorro M.D. CC: Technologist: RT VAMSHI/R Transcribed Date/Time: 12/07/2023 (0746) Center Mgr: NAFISA Printed Date/Time: 12/07/2023 (0746) PAGE 1 Signed Report Normal [facility] ED.PDOCon 11-23-2023 ED.PDOC DB DOAN Female [id number] Attending provider: [facility] [id number] Elizabeth Santos 1970 53 DOS: 11/23/23 Hx/Exam - History [...] gabapentin for it. She is currently under care and they are trying to refer [...] for Exam: PAIN FINDINGS: There are 5 doi-gmd-wclfycn lumbar type vertebral (more content not included)... [facility] LUMBAR SPINE-2 OR 3 VIEWon 0 11-23-2023 LUMBAR SPINE-2 OR 3 VIEW DB DOAN Female [id number] Ordering physician: Elizabeth Santos LOC:ER [id number] Attending physician: 1970 53 DO S: 11/23/23 Acc#: [id number] Exam/Proc: LUMBAR SPINE-2 OR 3 VIEW Dept: RADIOLOGY EXAMINATION: 2 XRAY VIEWS OF THE LUMBAR SPINE11/23/2023 4:08 pm COMPARISON: CT lumbar spine 09/30/2023 HISTORY: ORDERING SYSTEM PROVIDED HISTORY: TECHNOLOGIST PROVIDED HISTORY: Reason for Exam: PAIN FINDINGS: There are 5 dfc-upr-vklzyoo lumbar type vertebral bodies. Alignment and curvature [...] resident's findings and interpretation. Electronically signed By Rajat Delgado 11/23/2023 4:20:03 PM EST Workstation ID : [id number] REPORT SIGNATURE ON FILE Electronically Signed Date/Time: 11/23/23 1620 Dictated Date/time: 11/23/23 1615 CC: [facility] PELVIS-1 OR 2 VIEWSon 2023 PELVIS-1 OR 2 VIEWS DB DOAN Female [id number] Ordering physician: Elizabeth Santos LOC:ER [id number] Attending physician: 1970 53 DO S: 11/23/23 Acc#: [id number] Exam/Proc: PELVIS-1 OR 2 VIEWS Dept: RADIOLOGY [...] 11/23/2023 4:24:06 PM EST Workstation ID : [id number] REPORT SIGNATURE ON FILE Electronically Signed Date/Time: 11/23/23 1624 Dictated Date/time: 11/23/23 1609 CC: [facility] ABDLV Name: DB DOAN Phys: Kade Prince DO : 1970 Age: 53 Sex: F Acct: [id number] Loc: SAT Exam Date: 11/20/2023 Status: REG ER Radiology No: Unit No: [id number] PH: [phone] Diagnosis: FELL ON RIGHT SIDE/ R KNEE, HIP AND BACK PAIN EXAM: [id number] ABD PELV W/O ORAL IV CONTR Reason [...] Reported By: Brandon Morales DO CC: Technologist: PRISCILA MAE, RT/R Transcribed Date/Time: 11/20/2023 (0834) Center Mgr: NAFISA Printed Date/Time: 11/20/2023 (0834) PAGE 1 [facility]igned [facility] Name: DB DOAN Phys: Kade Prince DO : 1970 Age: 53 Sex: F Acct: [id number] Loc: SAT Exam Date: 11/20/2023 Status: REG ER Radiology No: Unit No: [id number] PH: [phone] Diagnosis: FELL ON RIGHT SIDE/ R KNEE, HIP AND BACK PAIN EXAM: [id number] CHEST W/O CONTRAST Reason For Procedure: fall, [...] Reported By: Brandon Morales DO CC: Technologist: PRISCILA MAE, RT/R Transcribed Date/Time: 11/20/2023 (0834) Center Mgr: NAFISA Printed Date/Time: 11/20/2023 (0823) PAGE 1 Signed Report Normal [facility] EDon 11-20-2023 ED [facility] 11/20/23 [place], [place] [address] [id number] DB DOAN None EMERGENCY ROOM REPORT MR [id number] History of Present Illness Date of [...] Report Impression - Status: SIGNED Entered: 11/20/2023 0834 IMPRESSION: NO ACUTE ABNORMALITY CHEST, ABDOMEN OR PELVIS. SITE: P Impression By: Brandon Baxter DO CT SCAN WEST - CHEST W/O CONTRAST 11/20 799 Report Impression - Status: SIGNED Entered: 11/20/2023 0834 IMPRESSION: NO ACUTE ABNORMALITY CHEST, ABDOMEN OR PELVIS. SITE: P Impression By: Brandon Baxter DO [facility]Y - KNEE RIGHT 4 VWS OR [...] with pa (more content not included)... Normal [facility] KNEERon 11-20-2023 KNEER Name: DB DOAN Phys: Kade Prince DO : 1970 Age: 53 Sex: F Acct: [id number] Loc: SAT Exam Date: 11/20/2023 Status: REG ER Radiology No: Unit No: [id number] PH: [phone] Diagnosis: FELL ON RIGHT SIDE/ R KNEE, HIP AND BACK PAIN EXAM: [id number] KNEE RIGHT 4 VWS OR MORE Reason [...] Reported By: Brandon Morales DO CC: Technologist: JEFE CARMICHAEL, RT/R Transcribed Date/Time: 11/20/2023 (0864) Center Mgr: NAFISA Printed Date/Time: 11/20/2023 (0882) PAGE 1 Signed Report Normal [facility] 11-10-2023 ED [facility] 11/10/23 [place], [place] [address] [id number] DB DOAN EMERGENCY ROOM REPORT MR [id number] History of Present Illness Date of [...] Last Tetanus: UNK Diagnostic Studies Recent Impressions [facility] - LIMITED SPINE/LUMBR 2 OR 3 VWS 11/09 1553 Report Impression - Status: SIGNED Entered: 11/10/2023 1602 IMPRESSION: NEAR ANATOMIC ALIGNMENT OF THE CURVATURE. INTACT VERTEBRA AND INTERVERTEBRAL DISC SPACES. SITE O Impression By: Homer Mcnair M.D. [facility]Y - WRIST RIGHT-MIN 3 VWS 11/09 [...] skin disruptions, no rashes. (Kade Prince DO) (Adrian,Clive DO) Assessment / Plan, ED Clinical Impression: Wrist sprain, low back strain Diagnosis: Wrist sprain Low back strain Orders: All Orders Procedure Date/time Status WRIST RIGHT-MIN 3 VWS 11/09 1552 Complete LIMITED SPINE/LUMBAR 2 OR 3 VW 11/09 155 Complete SEEN BY PHYSICIAN / PROVIDER 11/09 [...] my attending, Dr. Campbell. Condition: Good Disposition: HOME/SKILLED NURSING/ASSIST.ANUSHA() Referrals: None (PCP/Family): As Needed [facility] Medicine Patient Instructions: DI for Back Strain or Sprai (more content not included)... Normal [facility] LSPLALon 11-10-2023 LSPLAL Name: ANITA DOANSandhya Mahmood Phys: SureshKade : 1970 Age: 53 Sex: F Acct: [id number] Loc: SAT Exam Date: 11/10/2023 Status: PRE ER Radiology No: Unit No: [id number] PH: [phone] Diagnosis: RIGHT WRIST PAIN EXAM: [id number] LIMITED SPINE/LUMBR 2 OR 3 VWS Reason For Procedure: sacral and SI pain, fall onto glut LUMBAR SPINE - 3 VIEWS: CLINICAL INDICATION: Injury/pain. COMPARISON: None. IMPRESSION: NEAR ANATOMIC ALIGNMENT OF THE CURVATURE. INTACT VERTEBRA AND INTERVERTEBRAL DISC SPACES. SITE O REPORT SIGNED IN OTHER VENDOR SYSTEM 11/10/2023 Reported By: Homer Chamorro M.D. CC: Technologist: RT ENIO/Jennifer Transcribed Date/Time: 11/10/2023 (160) Center Mgr: NAFISA Printed Date/Time: 11/10/2023 (1602) PAGE 1 Signed Report Normal [facility] WRSTRon 11-10-2023 WRSTR Name: DB DOAN Phys: Kade Prince DO : 1970 Age: 53 Sex: F Acct: [id number] Loc: SAT Exam Date: 11/10/2023 Status: PRE ER Radiology No: Unit No: [id number] PH: [phone] Diagnosis: RIGHT WRIST PAIN EXAM: [id number] WRIST RIGHT-MIN 3 VWS Reason For Procedure: FOOSH, distal radius/ulna ttp RIGHT WRIST - 4 VIEWS: CLINICAL INDICATION: Fall/pain. COMPARISON: None. IMPRESSION: INTACT SKELETAL STRUCTURES AND JOINT SPACES. SITE O REPORT SIGNED IN OTHER VENDOR SYSTEM 11/10/2023 Reported By: Homer Chamorro M.D. CC: Technologist: LIN STEEN Transcribed Date/Time: 11/10/2023 (160) Center Mgr: NAFISA Printed Date/Time: 11/10/2023 (1603) PAGE 1 Signed Report Normal [facility] ED NOTEon 10-27-2023 ED NOTE HNO ID: [id number] Author: ROBERTO GOLDBERG RN Service: Emergency Medicine Author Type: Registered Nurse Type: ED Notes Filed: 10/27/2023 04:11 Note Text: Pt provided discharge paperwork. No PIV in place. VSS. Normal [facility] ED Noteson 10-27-2023 Look Out Tower Fire Watcher Authentication Interface Message Text Went to give the patient her sulfamethoxazole-trimet hoprim and the patient was not in her room. The patient left without her antibiotic or her discharge papers. Normal [facility] ED PROV NOTEon 10-27-2023 ED PROV NOTE HNO ID: [id number] Author: MARTA KENT MD Service: Emergency Medicine Author Type: Physician Type: ED Provider Notes Filed: 10/29/2023 00:16 Note Text: ED Provider Note Patient Name: bD Doan : 1970 SERVICE DATE: 10/27/23 History [...] or IV drug use. Has tried multiple zyyg-xmg-gwfnxln meds without relief. Has been able to [...] prescribe Augmentin (more content not included)... Normal [facility] ED Provider Noteson 10-27-19 Look Out Tower Fire Watcher Authentication Interface Message Text EMERGENCY DEPARTMENT - [...] room at the time of the evaluation. Senior Electronics Design Engineer: not needed - patient preferred language is Montenegrin. The history is provided by the Patient. [...] speech recognition software. Jose Bennett. Normal [facility] Emergency Department Summary on 10-27-2023 Emergency Department Summary [facility] Medical Records Department [address] [place] [address] Emergency Department Summary 10/27/23 MR#: [id number] Acct: [id number] Name: DB DOAN Rep #: [id number] : 1970 53 From: Jose Alfaro DO [...] events and despite taking her medications and lpwd-drp-rgufscy medications there has been no improvement of the pain so she is concerned for potential injury and comes in for evaluation [facility] Medical History (Updated 10/28/23 @ 02:[address] Jose Alfaro DO) Ankylosing spondylitis Epilepsy Home Medications ???Medication ???Instructions [...] Exam: stren (more content not included)... Normal [facility] HIP, UNI W/ Pelvis 2-3 Views on 10-27-2023 HIP, UNI W/ Pelvis 2-3 Views [facility] Imaging Services [address] [place], [place] [id number] HIP, UNI W/ Pelvis 2-3 Views MR#: [id number] Acct: [id number] Name: DB DOAN Timoteo Rep #: [id number] : 1970 F 53 From: Ron Iqbal MD PCP: Care Physician,No Primary Status: REG ER Study: HIP, UNI W/ Pelvis 2-3 Views Date of Exam: Exam# [id number] Ordering Dr: [place] [id number] INDICATION: FALL EXAMINATION/TECHNIQUE: X-RAY - LEFT XR Hip Unilateral with Pelvis when performed; 2-3 Views COMPARISON: None. FINDINGS: SOFT TISSUES: Unremarkable. BONES/JOINTS: No fracture or dislocation. No significant degenerative changes. No erosive changes. RAD/HIP, UNI W/ Pelvis 2-3 Views IMPRESSION: No fracture or dislocation. Electronically Signed: Ron Iqbal DO at 6:48 EDT , CC: Jose Alfaro DO; No Primary Care Physician Center Mgr: Signed Normal [facility] Shoulder min 2 Viewson 10-26 Shoulder min 2 Views [facility] Imaging Services [address] [place], [place] [id number] Shoulder min 2 Views MR#: [id number] Acct: [id number] Name: DB DOAN Rep #: [id number] : 1970 F 53 From: Ron Iqbal MD PCP: Care Physician,No Primary Status: REG ER Study: Shoulder min 2 Views Date of Exam: 10/27/23 Exam# [id number] Ordering Dr: [place] [id number] INDICATION: FALL EXAMINATION/TECHNIQUE: X-RAY - LEFT XR [...] Jose Alfaro DO; No Primary Care Physician Center Mgr: Signed [facility] ED NOTEon 10-26-2023 ED NOTE HNO ID: [id number] Author: JESSICA MCKEON RN Service: ? Author Type: Registered Nurse Type: ED Notes Filed: 10/26/2023 05:17 Note Text: Pt left after being evaluated by EDMD. [facility] ED PROV NOTEon 10-26-2023 ED PROV NOTE HNO ID: [id number] Author: SHRUTHI HURT MD Service: ? Author Type: Physician Type: ED Provider Notes Filed: 10/26/2023 05:18 Note Text: ED Provider Note Patient Name: Db Doan : 1970 SERVICE DATE: 10/26/23 History Patient presents with: Fall: Patient states she has recurrent falls onto right hip, was seen at in [place] for syncope on Saturday. Patient also states [...] been in multiple area emergency departments including [facility], [facility], [facility], [facility] emergency department, [facility]. It appears that patient was at [facility] emergency department. She was complaining that she felt like she had had a seizure. She was requesting Percocet. She was offered nonsedating medication and it was explained that opioids were not indicated. She became agitated and eloped. She was then seen at [facility] emergency department. She was asking the nurse [...] MD - SHRUTHI HURT 10/26/23 0518 [facility] ED Physician Documentationon 10-26-2023 ED Physician Documentation [address] [address] Physician Documentation Signed: Name: DB DOAN MRUN: [id number] : 1970 Loc: ED Age / Sex: [...] this past Saturday. She was admitted to [facility] and observed overnight. They did not [...] this past Saturday. She was admitted to [facility] and observed overnight. They did not [...] was ordered. Patient is actually from the [facility] but indicates that she is here visiting her brother. She was just seen in the [facility] on Saturday overnight. Prior to completion [...] RACHEL, Jia Benedict; PCP DO, Unknown Normal [facility] CBC with Auto Differentialon 10-18-2023 Basophils (Bld) [#/Vol] 0.02 10*3/uL [facility] Basophils/100 WBC (Bld) 0 % 0.0 - 2.0 % [facility] Eosinophils (Bld) [#/Vol] 0.09 10*3/uL [facility] Eosinophils/100 WBC (Bld) 1 % 0 [...] 0 % 0.0 - 5.0 % [facility] Interpretation and review of laboratory results Abnormal [facility] Lymphocytes/100 WBC (Bld) 29 % 20.0 - 42.0 % [facility] Lymphocytes/100 WBC (Bld) 2.26 % [facility] MCH (RBC) [Entitic mass] 33.0 pg 26.0 - 35.0 pg [facility] MCHC (RBC) [Mass/Vol] 34.7 g/dL High 32.0 - 34.5 g/dL [facility] MCV (RBC) [Entitic vol] 95.2 fL 80.0 - 99.9 fL [facility] Monocytes/100 WBC (Bld) 9 % 2.0 - 12.0 % [facility] Monocytes/100 WBC (Bld) 0.72 % [facility] Neutrophils/100 WBC (Bld) 59 % 43.0 - 80.0 % [facility] Platelet mean volume (Bld) [Entitic vol] 7.9 fL 7.0 - 12.0 fL [facility] Platelets (Bld) [#/Vol] 331 10*3/uL [facility] RBC (Bld) [#/Vol] 4.18 10*6/uL 3.50 - 5.5 0 m/uL [facility] Segmented neutrophils/100 WBC (Bld) 4.56 % [facility] WBC other (Bld) [#/Vol] 7.7 [facility] CNCOon 10-18-2023 CNCO Letter Text Normal [facility] Comprehensive Metabolic Pane l w/ Reflex to MGon 10-18-2023 Albumin [Mass/Vol] 4.1 g/dL 3.5 - 5.2 g/dL [facility] ALP [Catalytic activity/Vol] 69 U/L 35 - 104 U/L [facility] ALT [Catalytic activity/Vol] 21 U/L 0 - 32 U/L [facility] Anion gap [Moles/Vol] 13 mmol/L 7 - 16 mmol/L [facility] AST [Catalytic activity/Vol] 20 U/L 0 - 31 U/L [facility] Bilirubin [Mass/Vol] 0.2 mg/dL 0.0 - 1 .2 mg/dL [facility] Calcium [Mass/Vol] 9.3 mg/dL 8.6 - 10. 2 mg/dL [facility] Chloride [Moles/Vol] 100 mmol/L 98 - 10 7 mmol/L [facility] CO2 [Moles/Vol] 27 mmol/L 22 - 29 mmol/L [facility] Creatinine [Mass/Vol] 0.7 mg/dL 0.50 - 1.00 mg/dL [facility] EstShannon Rate - [facility] Comment on above: These results are [...] 57 mg/dL Low 74 - 99 mg/dL [facility] Interpretation and review of laboratory results Abnormal [facility] Potassium [Moles/Vol] 3.5 mmol/L 3.5 - 5.0 mmol/L [facility] Protein [Mass/Vol] 6.3 g/dL Low 6.4 - 8.3 g/dL [facility] Sodium [Moles/Vol] 140 mmol/L 132 - 146 mmol/L [facility] Urea nitrogen [Mass/Vol] 5 mg/dL Low 6 - 20 mg/dL [facility] D-Dimer, Quantitativeon 10-02 D-Dimer, Quant [facility] Comment on above: D-DIMER Interpretation: <230 ng/mL (D-DU) Indicates low probability for PE/DVT >= 4000/ng/mL (D-DU) This level could suggest the presence of DIC. Clinical correlation may be helpful. Lactic Acidon 10-18-2023 Lactate (BldV) [Moles/Vol] 2.1 mmol/L 0.5 - 2.2 mmol/L [facility] MR Lumbar spine WO and W con trast Maryann 10-18-2023 1. No evidence of epidural mass or abscess. 2. No central canal stenosis. 3. Mild bilateral neural foraminal narrowing present at L4/L5 more significant on the left and mild bilateral neural foraminal narrowing at L5/S1. 4. Tiny annular fissures are seen at L4/L5 and L5/S1. [facility] EXAMINATION: MRI OF THE LUMBAR [...] There is mild bilateral neural foraminal narrowing. [facility] Ismael Hurst DO - 10/18/2023 [...] fissures are seen at L4/L5 and L5/S1. [facility] [employer] Radiology Study observation (narrative) [facility] MR Lumbar spine WO and W con trast IVOrdered By: Ismael Hurst on 10-18-2023 [facility] Work Phone: Magnesiumon 10-18-2023 Magnesium [Mass/Vol] 2.1 mg/dL 1.6 - 2 .6 mg/dL [facility] No Panel InformationOrdered By: Sheree Isaac on 10-18-2023 [facility] POC Urine QualOrde red By: Sheree Isaac on 10-18-2023 Beta HCG ( test) Ql (U) Negative Negative [facility] Lot Number [id number] [facility] Negative QC Pass/Fail Pass [facility] Positive QC Pass/Fail Pass [facility] Sedimentation Rateon 024 ESR (Bld) [Velocity] 1 mm/h [facility] Troponinon 10-18-2023 Troponin I.cardiac High sensitivity method [Mass/Vol] 6 ng/L 0 - 9 ng/L [facility] Comment on above: High Sensitivity Troponin values cannot be compared with other Troponin methodologies. Patients with high levels of Biotin oral intake (i.e >5mg/day) may have falsely decreased Troponin levels. Samples collected within 8 hours of biotin intake may require additional information for diagnosis. Urinalysis with Microscopico n 10-18-2023 Bilirubin Ql (U) Negative NEGATIVE [facility] Clarity (U) Clear Clear [facility] Color (U) Yellow Yellow [facility] Glucose Test strip (U) [Mass/Vol] Negative NEGATIVE mg/dL [facility] Hemoglobin Auto test strip Ql (U) Negative NEGATIVE [facility] Interpretation and review of laboratory results Abnormal [facility] Ketones (U) [Mass/Vol] Negative NEGATIVE mg/dL [facility] Leukocyte esterase Test strip Ql (U) Negative NEGATIVE [facility] Nitrite Ql (U) Negative NEGATIVE [facility] pH (U) 6.5 [pH] 5.0 - 9.0 [facility] Protein (U) [Mass/Vol] Negative NEGATIVE mg/dL [facility] RBC LM.HPF (Urine sed) [#/Area] 0 TO 2 0 TO 2 /HPF [facility] Specific gravity (U) [Rel density] Low 1.005 - 1.030 [facility] Urobilinogen Qn (U) 0.2 {Leonie'U}/dL 0. 0 - 1.0 EU/dL [facility] WBC LM.HPF (Urine sed) [#/Area] 0 TO 5 0 TO 5 /HPF [facility] ALLIED HEALTHon 10-17-2023 ALLIED HEALTH HNO ID: [id number] Author: ARI ESTEBAN RT(R) Service: Radiology Author Type: 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 Type: Allied Health Filed: 10/17/2023 08:03 Note Text: Radiology Service [...] PATIENT PRESENTS WITH AN IMPLANTABLE OR ATTACHED BI APPLICATION DEVELOPER: No ALLERGIES: Reviewed and unchanged CONTRAST ALLERGY: [...] October 17, 2023 TIME: 7:30 AM Normal [facility] ALLIED HEALTH HNO ID: [id number] Author: ARI ESTEBAN RT(R) Service: Radiology Author Type: 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 Type: Allied Health Filed: 10/17/2023 07:12 Note Text: CT waiting on labs to scan. Normal [facility] CBCDIFon 10-17-2023 Abs Baso 0.02 k/uL Normal 0-0.2 [facility] Comment on above: Performed By: #### L IPA, CMP, CBCDIF, TROPI ####[facility] [id number] [place], [place] [phone] Abs Harrison 0.70 k/uL Normal 0-0.8 [facility] Comment on above: Performed By: #### L IPA, CMP, CBCDIF, TROPI ####[facility] [id number], [place] [phone] Abs Neut 3.72 k/uL Normal 1.8-7.7 [facility] Comment on above: Performed By: #### L IPA, CMP, CBCDIF, TROPI ####[facility] [id number], [place] [phone] Basophils/100 WBC (Bld) 0.3 % Normal 0-1 [facility] Comment on above: Performed By: #### L IPA, CMP, CBCDIF, TROPI ####[facility] [id number], [place] [phone] Eosinophils (Bld) [#/Vol] 0.03 10*3/uL Normal 0-0.4 [facility] Comment on above: Performed By: #### L IPA, CMP, CBCDIF, TROPI ####[facility] Clinical [id number], [place] [phone] Eosinophils/100 WBC (Bld) 0.4 % Normal 0-4 [facility] Comment on above: Performed By: #### L IPA, CMP, CBCDIF, TROPI ####[facility] Clinical [id number], [place] [phone] Erythrocyte distribution width (RBC) [Ratio] 12.7 % Normal 11.5-14.5 [facility] Comment on above: Performed By: #### L IPA, CMP, CBCDIF, TROPI ####[facility] Clinical [id number], [place] [phone] Hematocrit (Bld) [Volume fraction] 38.3 % Normal 36.0-46.0 [facility] Comment on above: Performed By: #### L IPA, CMP, CBCDIF, TROPI ####[facility] [id number], [place] [phone] Hemoglobin (Bld) [Mass/Vol] 13.7 g/dL Normal 12.0-16.0 [facility] Comment on above: Performed By: #### L IPA, CMP, CBCDIF, TROPI ####[facility] Clinical [id number], [place] [phone] Immature Gran 0.40 % Normal 0-1.9 [facility] Comment on above: Performed By: #### L IPA, CMP, CBCDIF, TROPI ####[facility] Clinical [id number] [address], [place] [phone] Lymphocytes (Bld) [#/Vol] 3.01 10*3/uL Normal 1.0-4.0 [facility] Comment on above: Performed By: #### L IPA, CMP, CBCDIF, TROPI ####[facility] [id number], [place] [phone] Lymphocytes/100 WBC (Bld) 40.1 % Normal 22-44 [facility] Comment on above: Performed By: #### L IPA, CMP, CBCDIF, TROPI ####[facility] Clinical [id number], [place] [phone] MCH 32.9 pG Normal 26-34 [facility] Comment on above: Performed By: #### L IPA, CMP, CBCDIF, TROPI ####[facility] [id number] [address], [place] [phone] MCHC (RBC) [Mass/Vol] 35.8 g/dL Normal 31-37 [facility] Comment on above: Performed By: #### L IPA, CMP, CBCDIF, TROPI ####[facility] [id number] [address], [place] [phone] MCV (RBC) [Entitic vol] 91.8 fL Normal 80-100 [facility] Comment on above: Performed By: #### L IPA, CMP, CBCDIF, TROPI ####[facility] Clinical Usy50579 [address], [place] [phone] Monocytes/100 WBC (Bld) 9.3 % Normal 4-12 [facility] Comment on above: Performed By: #### L IPA, CMP, CBCDIF, TROPI ####[facility] Clinical [id number] [place], [place] [phone] Neutrophils/100 WBC (Bld) 49.5 % Normal 40-70 [facility] Comment on above: Performed By: #### L IPA, CMP, CBCDIF, TROPI ####[facility] Clinical Obi[address]64 [address], [place] [phone] NRBCs 0 /100 WBC Normal 0-0.9 [facility] Comment on above: Performed By: #### L IPA, CMP, CBCDIF, TROPI ####[facility] Clinical [id number] [address], [place] [phone] Platelets (Bld) [#/Vol] 310 10*3/uL Normal 150-450 [facility] Comment on above: Performed By: #### L IPA, CMP, CBCDIF, TROPI ####[facility] Oik[address], [place] [phone] RBC (Bld) [#/Vol] 4.17 10*6/uL Normal 4.00-5.20 [facility] Comment on above: Performed By: #### L IPA, CMP, CBCDIF, TROPI ####[facility] Rnx[address], [place] [phone] WBC (Bld) [#/Vol] 7.51 10*3/uL Normal 4.5-11.0 [facility] Comment on above: Performed By: #### L IPA, CMP, CBCDIF, TROPI ####[facility] Clinical Fja59716 [address], [place] [phone] CT ABD/PEL W IVCONon 024 CT ABD/PEL [...] amount of stool and fluid present throughout. Center Mgr: MARSHALL Transcribe Date/Time: Oct 17 2023 10:08A Dictated by : DANIA QUIROZ MD This examination was interpreted and the report reviewed and electronically signed by: DANIA QUIROZ MD on Oct 17 2023 10:12AM EST [id number] Normal [facility] CT CHEST W IVCON PEon 2023 [...] the inferior right middle lobe and lingula Center Mgr: MARSHALL Transcribe Date/Time: Oct 17 2023 10:06A Dictated by : DANIA QUIROZ MD This examination was interpreted and the report reviewed and electronically signed by: DANIA QUIROZ MD on Oct 17 2023 10:08AM EST [id number] Normal [facility] Comp Metabolic Panelon 10-16 Albumin [Mass/Vol] 4.1 g/dL Normal 3.5-5.[address] [facility] Comment on above: Performed By: #### L IPA, CMP, CBCDIF, TROPI ####[facility] Clinical Zik[address], [place] [phone] Alkaline Phos 53 U/L Normal 38-125 [facility] Comment on above: Performed By: #### L IPA, CMP, CBCDIF, TROPI ####[facility] Clinical Qsk00348 [address], [place] [phone] ALT [Catalytic activity/Vol] 23 U/L Normal 0-34 [facility] Comment on above: Performed By: #### L IPA, CMP, CBCDIF, TROPI ####[facility] Clinical Fyz[address]694 [address], [place] [phone] Anion gap [Moles/Vol] 6 mmol/L Normal 0-15 [facility] Comment on above: Performed By: #### L IPA, CMP, CBCDIF, TROPI ####[facility] Clinical Swq50663 [address] [facility], [place] [phone] AST [Catalytic activity/Vol] 24 U/L Normal 17-59 [facility] Comment on above: Performed By: #### L IPA, CMP, CBCDIF, TROPI ####[facility] Cec[address]34 [address], [place] [phone] Bilirubin [Mass/Vol] 0.5 mg/dL Normal 0.2-1.3 [facility] Comment on above: Performed By: #### L IPA, CMP, CBCDIF, TROPI ####[facility] Mit[address], [place] [phone] Calcium [Mass/Vol] 9.4 mg/dL Normal 8.4-10.[address] [facility] Comment on above: Performed By: #### L IPA, CMP, CBCDIF, TROPI ####[facility] Clinical Irh21304 [address], [place] [phone] Chloride [Moles/Vol] 105 mmol/L Normal 98-107 [facility] Comment on above: Performed By: #### L IPA, CMP, CBCDIF, TROPI ####[facility] Clinical Hyl[address], [place] [phone] CO2 [Moles/Vol] 31 mmol/L High 22-30 [facility] Comment on above: Performed By: #### L IPA, CMP, CBCDIF, TROPI ####[facility] Chn70400 [facility] [phone] Creatinine [Mass/Vol] 0.67 mg/dL Normal 0.52-1.04 [facility] Comment on above: Performed By: #### L IPA, CMP, CBCDIF, TROPI ####[facility] Mrp26983 [facility] [place] [phone] eGFR Amer >60 Normal >60 [facility] Comment on above: Result Comment: MDRD calculation used for eGFR results. Performed By: #### L IPA, CMP, CBCDIF, TROPI ####[facility] Jjk66786 [facility] [place], [place] [phone] eGFR non Am >60 Normal >60 [facility] Comment on above: Performed By: #### L IPA, CMP, CBCDIF, TROPI ####[facility] Dqd80944 [facility] [place], [place] [phone] Glucose [Mass/Vol] 85 mg/dL Normal 74-[address] [facility] Comment on above: Performed By: #### L IPA, CMP, CBCDIF, TROPI ####[facility] Ulc58511 [facility] [place], [place] [phone] Potassium [Moles/Vol] 3.5 mmol/L Normal 3.5-5.1 [facility] Comment on above: Performed By: #### L IPA, CMP, CBCDIF, TROPI ####[facility] Vwq16166 [facility] [place] [phone] Protein [Mass/Vol] 6.4 g/dL Normal 6.2-8.[address] [facility] Comment on above: Performed By: #### L IPA, CMP, CBCDIF, TROPI ####[facility] [address] [place], [place] [phone] Sodium [Moles/Vol] 138 mmol/L Normal 137-[address] [facility] Comment on above: Performed By: #### L IPA, CMP, CBCDIF, TROPI ####[facility] [address] [place], [place] [phone] Urea nitrogen [Mass/Vol] 9 mg/dL Normal 7-17 [facility] Comment on above: Performed By: #### L IPA, CMP, CBCDIF, TROPI ####[facility] Ujc16628 [facility] [place] [place] [phone] ED NOTEon 10-17-2023 ED NOTE HNO ID: [id number] Author: MACI BAILON RN Service: Nursing Author [...] review discharge at this time. IV removed. Normal [facility] ED NOTE HNO ID: [id number] Author: MACI BAILON RN Service: Nursing Author Type: Registered Nurse Type: ED Notes Filed: 10/17/2023 10:40 Note Text: Called to bedside by patient. Patient requesting to be discharged to make her scheduled appointment this afternoon. notified. Awaiting radiology results at this time. Patient updated. Normal [facility] ED NOTE HNO ID: [id number] Author: MACI BAILON RN Service: Nursing Author [...] carrillo within reach, will continue to monitor. [facility] ED NOTE HNO ID: [id number] Author: GALLO ROLDAN RN Service: ? Author Type: Registered Nurse Type: ED Notes Filed: 10/17/2023 05:16 Note Text: Patient to ed for lower back pain, received an inject to her back on 10/10/2023. [facility] ED PROV NOTEon 10-17-2023 ED PROV NOTE HNO ID: [id number] Author: AUSTEN SALAZAR JR, MD Service: ? [...] - AUSTEN SALAZAR JR, MD 10/17/23 1030 [facility] ED PROV NOTE HNO ID: [id number] Author: LATANYA HELM MD Service: Emergency Medicine [...] epidural shot done on 10/09 at the [facility] complains of a 2-day histor (more content not included)... Normal [facility] Lipaseon 10-17-2023 Lipase [Catalytic activity/Vol] 69 U/L Normal 23-300 [facility] Comment on above: Performed By: #### L IPA, CMP, CBCDIF, TROPI ####[facility] [id number] [place], [place] [phone] Troponin Ion 10-17-2023 Troponin I.cardiac [Mass/Vol] ng/mL Normal [facility] Comment on above: Result Comment: Troponin [...] L IPA, CMP, CBCDIF, TROPI ####[facility] Oqk85775 [place], [place] [phone] [facility] 10-10-2023 [facility] Telephone (AGSPINE3) DB DOAN ([id number]) 1970 F Date Time Provider Department 10/10/23 [...] [M51.36]12/03/2018 Sprain or strain of cervical spine [JKL5805] 07/16/2014 Sacroiliitis (HCC) [M46.1] 05/02/2022 Primary osteoarthritis of left hip [M16.12] 01/08/2019 Lymphadenopathy [R59.1] 06/30/2020 Disorder of sacrum [M53.3] 01/08/2019 Centrilobular emphysema (HCC) [J43.2] 03/23/2022 Brachial neuritis or radiculitis [M54.12] 08/14/2011 Anxiety attack [F41.0] 09/16/2014 Encounter Status:Closed by MINNA SANDOVAL on 10/10/23 [facility] ANKLE-LEFT MIN 3 VIEWSon ANKLE-LEFT MIN 3 VIEWS DB DOAN Female [id number] Ordering physician: Shakeel Stephens LOC:ER [id number] Attending physician: 1970 53 DO S: 09/30/23 Acc#: [id number] Exam/Proc: ANKLE-LEFT MIN 3 VIEWS Dept: RADIOLOGY [...] 09/30/2023 3:17:49 PM EST Workstation ID : [id number] REPORT SIGNATURE ON FILE Electronically Signed Date/Time: 09/30/23 1517 Dictated Date/time: 09/30/23 1516 CC: [facility] ED.PDOCon 09-30-2023 ED.PDOC DB DOAN Female [id number] Attending provider: DEANDRE ER [id number] Nolan Stephensgoldie 1970 53 DOS: 09/30/23 Hx/Exam - History [...] gait, normal strength, normal sensation, speech clear/fluent, 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 Electronically signed By [employer] 09/30/2023 3:18:[address] THREE XRAY VIEWS OF THE LEFT ANKLE09/30/2023 3:15 pm COMPARISON: None. HISTORY: ORDERING SYSTEM PROVIDED HISTORY: TECHNOLOGIST PROVIDED HISTORY: Reason for Exam: PAIN FINDINGS: There is no ac (more content not included)... [facility] FOOT-LEFT MIN 3 VIEWSon 09-02 FOOT-LEFT MIN 3 VIEWS JEMFLORDB Femal e [id number] Ordering physician: Shakeel Stephens LOC:ER [id number] Attending physician: 1970 53 DO S: 09/30/23 Acc#: [id number] Exam/Proc: FOOT-LEFT MIN 3 VIEWS Dept: RADIOLOGY EXAMINATION: THREE XRAY VIEWS OF THE LEFT FOOT09/30/2023 3:16 pm COMPARISON: None. HISTORY: ORDERING SYSTEM PROVIDED HISTORY: TECHNOLOGIST PROVIDED HISTORY: Reason for Exam: PAIN FINDINGS: No acute fracture dislocation or destructive bony process. No evidence of degenerative or erosive arthritic changes. Soft tissues are normal. IMPRESSION: No acute bony abnormality. Electronically signed By [employer] 09/30/2023 3:18:56 PM EST Workstation ID : [id number] REPORT SIGNATURE ON FILE Electronically Signed Date/Time: 09/30/231517 Dictated Date/time: 09/30/238 CC: [facility] LUMBAR SPINE W/O CONTRASTon 09-30-2023 LUMBAR SPINE W/O CONTRAST DB DOAN Female [id number] Ordering physician: Shakeel Stephens LOC:ER [id number] Attending physician: 1970 53 DO S: 09/30/23 Acc#: [id number] Exam/Proc: LUMBAR SPINE W/O CONTRAST Dept: COMPUTED [...] 09/30/2023 3:33:35 PM EST Workstation ID : [id number] REPORT SIGNATURE ON FILE Electronically Signed Date/Time: 09/30/23 1533 Dictated Date/time: 09/30/23 1530 CC: Normal [facility] CBC with Auto Differentialon 09-29-2023 Basophils (Bld) [#/Vol] 0.01 10*3/uL [employer] Basophils/100 WBC (Bld) 0 % 0.0 - 2.0 % [employer] Eosinophils (Bld) [#/Vol] 0.02 10*3/uL Low [employer] Eosinophils/100 WBC (Bld) 0 % 0 - 6 % [employer] Erythrocyte distribution width (RBC) [Ratio] 12.1 % 11.5 - 15.0 % [facility] Hematocrit (Bld) [Volume fraction] 39.2 % 34.0 - 48.0 % [facility] Hemoglobin (Bld) [Mass/Vol] 13.9 g/dL 11.5 - 15.5 g/dL [facility] Immature granulocytes (Bld) [#/Vol] 0.03 10*3/uL [facility] Immature granulocytes/100 WBC (Bld) 0 % 0.0 - 5.0 % [facility] Interpretation and review of laboratory results Abnormal [facility] Lymphocytes/100 WBC (Bld) 11 % Low 20.0 - 42.0 % [facility] Lymphocytes/100 WBC (Bld) 0.96 % Low [facility] MCH (RBC) [Entitic mass] 32.6 pg 26.0 - 35.0 pg [facility] MCHC (RBC) [Mass/Vol] 35.5 g/dL High 32.0 - 34.5 g/dL [facility] MCV (RBC) [Entitic vol] 92.0 fL 80.0 - 99.9 fL [facility] Monocytes/100 WBC (Bld) 3 % 2.0 - 12.0 % [facility] Monocytes/100 WBC (Bld) 0.21 % [facility] Neutrophils/100 WBC (Bld) 86 % High 43.0 - 80.0 % [facility] Platelet mean volume (Bld) [Entitic vol] 8.1 fL 7.0 - 12.0 fL [facility] Platelets (Bld) [#/Vol] 371 10*3/uL [facility] RBC (Bld) [#/Vol] 4.26 10*6/uL 3.50 - 5.5 0 m/uL [facility] Segmented neutrophils/100 WBC (Bld) 7.26 % [facility] WBC other (Bld) [#/Vol] 8.5 [facility] Comprehensive Metabolic Pane l w/ Reflex to MGon 09-29-2023 Albumin [Mass/Vol] 4.4 g/dL 3.5 - 5.2 g/dL [facility] ALP [Catalytic activity/Vol] 76 U/L 35 - 104 U/L [facility] ALT [Catalytic activity/Vol] 17 U/L 0 - 32 U/L [facility] Anion gap [Moles/Vol] 17 mmol/L High 7 - 16 mmol/L [facility] AST [Catalytic activity/Vol] 17 U/L 0 - 31 U/L [facility] Bilirubin [Mass/Vol] 0.2 mg/dL 0.0 - 1 .2 mg/dL [facility] Calcium [Mass/Vol] 9.7 mg/dL 8.6 - 10. 2 mg/dL [facility] Chloride [Moles/Vol] 97 mmol/L Low 98 - 10 7 mmol/L [facility] CO2 [Moles/Vol] 21 mmol/L Low 22 - 29 mmol/L [facility] Creatinine [Mass/Vol] 0.7 mg/dL 0.50 - 1.00 mg/dL [facility] Est, Glo[place]ouard Silveriot Rate - PINF [facility] Comment on above: These results are [...] 152 mg/dL High 74 - 99 mg/dL [facility] Interpretation and review of laboratory results Abnormal [facility] Potassium [Moles/Vol] 3.7 mmol/L 3.5 - 5.0 mmol/L [facility] Protein [Mass/Vol] 6.9 g/dL 6.4 - 8.3 g/dL [facility] Sodium [Moles/Vol] 135 mmol/L 132 - 146 mmol/L [facility] Urea nitrogen [Mass/Vol] 10 mg/dL 6 - 20 mg/dL [facility] Lactic Acidon 09-29-2023 Interpretation and review of laboratory results Abnormal [facility] Lactate (BldV) [Moles/Vol] 3.9 mmol/L Critically high 0.5 - 2.2 mmol/L [facility] Comment on above: Results called to an d read back by: ARI MARTIN RN ON AT 1412 [facility] Lipaseon 09-29-2023 Lipase [Catalytic activity/Vol] 17 U/L 13 - 60 U/L [facility] No Panel Informationon 09-28 [facility] Urinalysis with Microscopico n 09-29-2023 Bacteria LM Ql (Urine sed) 2+ Abnormal None [facility] Bilirubin Ql (U) Negative [facility]GATIVE [facility] Clarity (U) Clear Clear [facility] Color (U) Yellow Yellow [facility] Epithelial cells LM.HPF (Urine sed) [#/Area] 0 TO 2 /HPF [facility] Glucose Test strip (U) [Mass/Vol] Negative NEGATIVE mg/dL [facility] Hemoglobin Auto test strip Ql (U) Negative NEGATIVE [facility] Interpretation and review of laboratory results Abnormal [facility] Ketones (U) [Mass/Vol] TRACE Abnormal NEGATIVE mg/dL [facility] Leukocyte esterase Test strip Ql (U) Negative NEGATIVE [facility] Mucus Ql (Urine sed) PRESENT [facility] Nitrite Ql (U) Negative NEGATIVE [facility] pH (U) 6.0 [pH] 5.0 - 9.0 [facility] Protein (U) [Mass/Vol] Negative NEGATIVE mg/dL [facility] RBC LM.HPF (Urine sed) [#/Area] 0 TO 2 0 TO 2 /HPF [facility] Specific gravity (U) [Rel density] 1.025 1.005 - 1.030 [facility] Urobilinogen Qn (U) 0.2 {Leonie'U}/dL 0. 0 - 1.0 EU/dL [facility] WBC LM.HPF (Urine sed) [#/Area] 0 TO 5 0 TO 5 /HPF [facility] XR Foot - left 3 Viewson Fracture at the base of the 5th metatarsal bone again identified, when compared to the previous study performed 09/23/2023. No significant interval change in alignment and position. [facility] EXAMINATION: THREE XRAY VIEWS OF [...] or surrounding soft tissue abnormality is appreciated. [facility] Ron Oviedo MD - 09/29/2023 [...] significant interval change in alignment and position. [facility] Radiology Study observation (narrative) [facility] XR Foot - left 3 ViewsOrdere d By: Ron Oviedo on 09-29-2023 [facility] Work Phone: CNOVon 09-19-2023 CNOV Office Visit (AGSPIN E2) DB DOAN ([id number]) 1970 F Date Time Provider Department 09/19/23 12:30 PM BELLO LIM AGSPINE2 During your visit today, we recorded the following information about you: Bello Lim, [place] 09/20/2023 8:57 AM Signed Chiropractor Progress/Procedure Note Db Doan is a [...] 12:37 Time out: 140 Dr. Bello Lim, [place] Allergies As of Date: 09/19/2023 (No [...] region [M99.04] Order(s):ACUPUNCT W/O STIMUL 15 MIN [[id number]] Order #: [id number] ACUPUNCT W/O STIMUL ADDL 15M [[id number]] Order #: [id number]: 2 CHIROPRAC MANIP,SPINAL,3-4 REGIONS [[id number]] Order #: [id number] Prescriptions as of 09/20/2023 - gabapentin (NEURONTIN) [...] [M51.36]12/03/2018 Sprain or strain of cervical spine [[id number]] 07/16/2014 Sacroiliitis (HCC) [M46.1] 05/02/2022 Primary osteoarthritis of left hip [M16.12] 01/08/2019 Lymphadenopathy [R59.1] 06/30/2020 Disorder of sacrum [M53.3] 01/08/2019 Centrilobular emphysema (HCC) [J43.2] 03/23/2022 Brachial neuritis or radiculitis [M54.12] 08/14/2011 Anxiety attack [F41.0] 09/16/2014 Encounter Status:Closed by BELLO LIM on 09/20/23 Normal [facility] XR Sacrum and Coccyx 2 Views on 09-15-2023 No acute bony abnormalities. No change since the prior exam MACRO: None Signed by: Kailee Leach 09/15/2023 10:47 AM Dictation workstation: [id number] [facility] Interpreted By: Kailee Gallardo ch, STUDY: XR SACRUM COCCYX 2+ VIEWS; ; 09/15/2023 10:20 am INDICATION: Signs/Symptoms:fall. COMPARISON: 04/14/2023 ACCESSION NUMBER(S): [id number] ORDERING CLINICIAN: JATIN DAVIS FINDINGS: Three views sacrum show sacroiliac joints and sacrum appear intact. Pubic symphysis appears normal. Tubal ligation clips noted. No fracture. Alignment satisfactory. [facility] Kailee Leach MD - 09/15/2023 Interpreted By: Kailee Leach, STUDY: XR SACRUM COCCYX 2+ VIEWS; ; 09/15/2023 10:20 am INDICATION: Signs/Symptoms:fall. COMPARISON: 04/14/2023 ACCESSION NUMBER(S): [id number] ORDERING CLINICIAN: JATIN DAVIS FINDINGS: Three views sacrum show sacroiliac joints and sacrum appear intact. Pubic symphysis appears normal. Tubal ligation clips noted. No fracture. Alignment satisfactory. IMPRESSION: No acute bony abnormalities. No change since the prior exam MACRO: None Signed by: Kailee Leach 09/15/2023 10:47 AM Dictation workstation: [id number] [facility] Work Phone: Radiology Study observation (narrative) [facility] Work Phone: XR Sacrum and Coccyx 2 Views Ordered By: Kailee Leach on 09-15-[address] [facility] Work Phone: Oneil 09-10-2023 CNPN Telephone (AGSPINE3) JEMDB CHEUNG ([id number]) 1970 F Date Time Provider Department 09/10/23 BLELO LIM AGSPINE3 During your visit today, we recorded the following information about you: Scott Db 09/10/2023 10:41 AM Signed ----- Message from Jase [place] sent at 09/10/2023 10:08 AM EDT ----- Regarding: Spine AND Pain / Bello Lim, ISSAC / Cancellation of Visits on 09/09 and [...] with Dr Lim. Was Patient Referred to [facility]/Seek Emergency Treatment (Y/N): n Did Patient Agree (Y/N): n Was An Attempt Made To Transfer The Patient To The Office (Y/N): n Were You Able To Reach Someone At The Office (Y/N): n If Yes - Patient Was Transferred To (Caregivers Name): n If No - Which [facility] Leadership Automotive Painter Helper Did You Speak With Regarding This Patient: n Was an appointment scheduled (Y/N): n Reason patient was requesting visit (RFV/signs and symptoms/diagnosis) : acu and manip Person calling if other than patient: self Return call to if other than patient: n Best contact number: [phone] Thank you, Jase Hemphill September 10, 2023 [...] [M51.36]12/03/2018 Sprain or strain of cervical spine [[id number]] 07/16/2014 Sacroiliitis (HCC) [M46.1] 05/02/2022 Primary osteoarthritis of left hip [M16.12] 01/08/2019 Lymphadenopathy [R59.1] 06/30/2020 Disorder of sacrum [M53.3] 01/08/2019 Centrilobular emphysema (HCC) [J43.2] 03/23/2022 Brachial neuritis or radiculitis [M54.12] 08/14/2011 Anxiety attack [F41.0] 09/16/2014 Encounter Status:Closed by RIDDLE, DB on 09/10/23 Normal [facility] XR Lumbar spine 2 or 3 Views on 09-02-2023 Mild multilevel degenerative disc disease in the mid lumbar spine. Otherwise unremarkable lumbar spine radiographs. If there are neurologic symptoms, MRI could be performed for further evaluation. [facility] EXAMINATION: XRAY VIEWS OF THE [...] identified. The SI joints are grossly unremarkable. [facility] Mike Baron MD - 09/02/2023 [...] MRI could be performed for further evaluation. [facility] Radiology Study observation (narrative) [facility] XR Lumbar spine 2 or 3 Views Ordered By: Mike Baron on 09-02-2023 [facility] Work Phone: CNCOon 08-27-2023 CNCO Letter Text Normal [facility] CNOVon 08-27-2023 CNOV Office Visit (AGSPIN E2) DB DOAN ([id number]) 1970 F Date Time Provider Department 08/27/23 10:00 AM BELLO LIM AGSPINE2 During your visit today, we recorded the following information about you: Bello Lim, [place] 08/28/2023 2:10 PM Signed New Patient Chiropractor Progress Note Db Doan [...] and muscle weakness. 04/02 acu 03/18 mp Ca Pain Intensity 4 - The pain is [...] Bello Lim [place] Referring Provider: TRISHA TENORIO [[id number]] Allergies As of Date: 08/27/2023 (No Known [...] region [M99.04] Order(s):ACUPUNCT W/O STIMUL 15 MIN [[id number]] Order #: [id number] ACUPUNCT W/O STIMUL ADDL 15M [[id number]] Order #: [id number]: 2 CHIROPRAC MANIP,SPINAL,3-4 REGIONS [[id number]] Order #: [id number] XR LUMBAR SPNE COMP 6V AP/LAT/BOTH OBL/FLEX/EXT (AK) [[id number]] Order #: [id number] (more content not included)... Normal [facility] CNPNon 08-27-2023 CNPN Telephone (AGSPINE2) DB DOAN ([id number]) 1970 F Date Time Provider Department 08/27/23 TRISHA TENORIO AGSPINE2 During your visit today, [...] No 9. Does this procedure require a speedboat driver? Yes If yes, has patient been notified that a speedboat driver is needed and must be present [...] [M51.36]12/03/2018 Sprain or strain of cervical spine [JCL9215] 07/16/2014 Sacroiliitis (HCC) [M46.1] 05/02/2022 Primary osteoarthritis of left hip [M16.12] 01/08/2019 Lymphadenopathy [R59.1] 06/30/2020 Disorder of sacrum [M53.3] 01/08/2019 Centrilobular emphysema (HCC) [J43.2] 03/23/2022 Brachial neuritis or radiculitis [M54.12] 08/14/2011 Anxiety attack [F41.0] 09/16/2014 Encounter Status:Closed by MARY ELLEN CAVAZOS on 08/27/23 [facility] CNPN Telephone (AGSPINE2) DB DOAN ([id number]) 1970 F Date Time Provider Department 08/27/23 BRIDGETTE FRASER AGSPINE2 During your visit today, we recorded the following information about you: Bridgette Fraser LMT 08/27/2023 6:40 AM Signed INSURANCE CO. ID # GROUP # CO-PAY DEDUCTIBLE COINSUR. OUT OF POCKET MAX PRIOR AUTH REQU'D LIMITATIONS REFERENCE # SPOKE TO: [place] [employer] [phone] [id number] - - -- - AFTER VISIT LIMIT MET 15 MP 30 U [id number] MARIYA C 2 XRAYS IN CALENDAR YEAR Is this a Medicare or Medicaid product? N Does this follow Medicare guidelines? N Is this a [facility] product? N Does this require clinical submission through [employer]? N Chiropractor: Dr. Raphael Contracted: Y Chiropractic benefits: In network Are the billable benefits a HARD LIMIT? NO If yes, how do we ask for more visits? Fax: Mail: Phone: Website: Ask for the managed care department for benefits Be sure to ask: Are these supervised or unsupervised therapeutic modalities covered if billed by a chiropractor? CPT CODE NAME COVERED? 96417 Manual manipulations spine 1-2 Y 59856 22585 Manual manipulations spine 3-4 Manual manipulations spine 5 Y Y 65852 Manual manipulations of extremities 84229 Hot/cold packs 95890 Mechanical traction 03915 Electrical stimulation 71422 Therapeutic exercises 55520 Neuromuscular re-education 94846 97435 Dry needling 1-2 Muscles Dry needling 3-4 muscles 48491 Massage therapy 10358 Manual therapy 37366 Acupuncture < 15 minutes Y 21213 86204 15765 Acupuncture > 15 minutes Acupuncture with stim < 15 minutes Acupuncture with stim > 15 minutes Y Bridgette Fraser LMT Allergies As of Date: 08/27/2023 (No Known Allergies) Date Reviewed: 08/20/2023 Reviewed by: Trisha Tenorio APRN.BARRATTE OPERATOR - Fully Assessed Reason for Visit: Insurance Authorization [[id number]] Cmt: CHIRO 2023 Prescriptions as of 08/27/2023 [...] [M51.36]12/03/2018 Sprain or strain of cervical spine [IKL0279] 07/16/2014 Sacroiliitis (HCC) [M46.1] 05/02/2022 Primary osteoarthritis of left hip [M16.12] 01/08/2019 Lymphadenopathy [R59.1] 06/30/2020 Disorder of sacrum [M53.3] 01/08/2019 Centrilobular emphysema (HCC) [J43.2] 03/23/2022 Brachial neuritis or radiculitis [M54.12] 08/14/2011 Anxiety attack [F41.0] 09/16/2014 Encounter Status:Closed by BRIDGETTE FRASER on 08/27/23 [facility] Oneil 08-20-2023 [facility] Telephone (AGSPINE2) DB DOAN ([id number]) 1970 F Date Time Provider Department 08/20/23 [...] Date Reviewed: 08/20/2023 Reviewed by: Trisha Tenorio APRN.BARRATTE OPERATOR - Fully Assessed Reason for Visit: Appointment [...] [M51.36]12/03/2018 Sprain or strain of cervical spine [SPW1830] 07/16/2014 Sacroiliitis (HCC) [M46.1] 05/02/2022 Primary osteoarthritis of left hip [M16.12] 01/08/2019 Lymphadenopathy [R59.1] 06/30/2020 Disorder of sacrum [M53.3] 01/08/2019 Centrilobular emphysema (HCC) [J43.2] 03/23/2022 Brachial neuritis or radiculitis [M54.12] 08/14/2011 Anxiety attack [F41.0] 09/16/2014 Encounter Status:Closed by BRIDGETTE FRASER on 08/20/23 [facility] Noelle 08-19-2023 CNOV Office Visit (AGSPIN E2) DB DOAN ([id number]) 1970 F Date Time Provider Department 08/19/23 1:00 PM TRISHA TENORIO AGSPINE2 During your visit today, we recorded the following information about you: Trisha Tenorio, KRYSTAL[facility] 08/07/2023 7:33 AM Signed Ice and heat [...] [M51.36]12/03/2018 Sprain or strain of cervical spine [GWO8328] 07/16/2014 Sacroiliitis (HCC) [M46.1] 05/02/2022 Primary osteoarthritis of left hip [M16.12] 01/08/2019 Lymphadenopathy [R59.1] 06/30/2020 Disorder of sacrum [M53.3] 01/08/2019 Centrilobular emphysema (HCC) [J43.2] 03/23/2022 Brachial neuritis or radiculitis [M54.12] 08/14/2011 Anxiety attack [F41.0] 09/16/2014 Other instructions from your clinician: Ice and heat as tolerated Activity as tolerated Encounter Status:Closed by TRISHA TENORIO on 08/20/23 [facility] ED Prov Noteon 08-13-2023 ED Prov Note ED PROVIDER NOTE [facility] NAME: Db Doan AGE: 53 y.o. : 1970 VISIT DATE: 08/13/2023 CSN: [id number] PCP: System, Provider Not In Chief Complaint [...] stepped i (more content not included)... Normal [facility] US DUPLEX VENOUS LEG LEFTon 08-13-2023 US DUPLEX VENOUS LEG LEFT Patient Info Name: DB DOAN Age: 53 years : 1970 Gender: Female Exam Date: 08/13/2023 7:38 AM Patient Status: Emergency Compliance Director: Kelly Lyon RVT Referring Physician: NICK Lara; Indications M79.605 - Pain in left leg Procedure Description 77084 Duplex examination using B-mode, color and spectral [...] Saphenous: - Small Saphenous: - - Normal [facility] XR ANKLE LEFT 3+ VIEWS (ANATOLIY JESUS)on [...] on SatAug 13, 2023 7:41:26 AM EDT [facility] Comment on above: Order Comment: Injur y/Trauma or Illness?:Illness/Other How long have you had these symptoms (acute/chronic)?:Acute Reason for exam?:lt ankle pain History of cancer?:u Surgeries, chemotherapy, or radiation?:u Type of Exam?:Initial Additional signs and symptoms?:numbness in lt ankle, hx of fractues [facility] 08-12-2023 [facility] HNO ID: [id number] Author: GILLIAN MUNOZ RT(R) Service: Radiology Author Type: Technologist Type: [...] PATIENT PRESENTS WITH AN IMPLANTABLE OR ATTACHED BI APPLICATION DEVELOPER: No RADIOLOGY DEPARTMENT: General X-ray: Exam(s) Completed: Lower Extremity X-Ray(s): Ankle, Left Upper Extremity X-Ray(s): Hand, right PERIPHERAL IV DATA: Not applicable SIGNED BY: RT AMINA(R) August 12, 2023 10:12 AM [facility] ED NOTEon 08-12-2023 ED NOTE HNO ID: [id number] Author: SUJEY HINKLE RN Service: ? Author Type: Registered Nurse Type: ED Notes Filed: 08/12/2023 11:34 Note Text: Patient is requesting another Percocet to hold her over all day. notified-no new orders received. [facility] ED NOTE HNO ID: [id number] Author: SUJEY HINKLE, RN Service: ? Author Type: Registered Nurse Type: ED Notes Filed: 08/12/2023 10:07 Note Text: Xray completed. [facility] ED NOTE HNO ID: [id number] Author: SUJEY HINKLE, RN Service: ? Author [...] spine and is seeing a neurosurgeon soon. Normal [facility] ED NOTE HNO ID: [id number] Author: MARLENY RODRIGUEZ RN Service: Nursing Author Type: Registered Nurse Type: ED Notes Filed: 08/12/2023 09:28 Note Text: Pt presents to ED from home with c/o low back pain, left ankle and foot pain, and right thumb pain after fall 4 days ago. Pt states the pain in the low back is increasingly worse and having difficulty walking. Normal [facility] ED PROV NOTEon 08-12-2023 ED PROV NOTE HNO ID: [id number] Author: LATANYA HELM MD Service: Emergency Medicine [...] Code status: (more content not included)... Normal [facility] XR ANKLE 3V AP/LAT/OBL LTon 08-12-2023 [...] is seen. IMPRESSION: No acute osseous abnormality. Center Mgr: PSCB Transcribe Date/Time: Aug 12 2023 11:40A Dictated by : DEYSI JOSE MD This examination was interpreted and the report reviewed and electronically signed by: DEYSI JOSE MD on Aug 12 2023 11:42AM EST [id number] Normal [facility] XR HAND 3V PA/LAT/OBL RTon 0 08-12-2023 [...] is seen. IMPRESSION: No acute osseous abnormality. Center Mgr: PSCB Transcribe Date/Time: Aug 12 2023 11:42A Dictated by : DEYSI JOSE MD This examination was interpreted and the report reviewed and electronically signed by: DEYSI JOSE MD on Aug 12 2023 11:43AM EST [id number] Normal [facility] ED.PDOCon 08-10-2023 ED.PDOC DB DOAN Female [id number] Attending provider: PRE ER ER [id number] Babs Lou 1970 53 DOS: 08/10/23 Hx/Exam [...] (Tenderness left lateral ankle) Neurologic: speech clear/fluent, installer apprentice II-XII intact Psychiatric: oriented x3, normal affect, [...] Date/Time:08/10/23 0956 Electronically Signed Date/Time: 08/10/23 1019 [facility] No Panel Informationon 08-09 FINDINGS/IMPRESSION: Limitations: No significant limitations. Left ankle: Ankle mortise and talar dome appear intact. Healed fracture deformity involving the distal left fibula/lateral malleolus. Adjacent ossific fragments appear to be well corticated which suggests chronicity. Recommend correlation with point tenderness. No dislocation. Soft tissue swelling most pronounced laterally. Left foot: Chronic appearing but age indeterminant fracture deformity involving the base of the fifth metatarsal. Recommend correlation with point tenderness. No dislocation. No significant arthropathy. Soft tissue swelling most pronounced along the lateral mid foot. Report Dictated on Electronically Signed By: Polo Barakat MD Electronically Signed Date/Time: 08/10/2023 12:13 PM EDT [facility] No Panel InformationOrdered By: Nilsa Barakat on 08-10-2023 [facility] [employer] Work Phone: XR Ankle - left 3 Viewson Patient Name: DB DOAN : 1970 Exam Date/Time: 08/10/2023 12:13 Procedure: XR ANKLE 3+ VIEWS LEFT Ordering Provider: MAR MATTHEW Reason For Exam: ANKLE PAIN COMBINED REPORT: Left ankle Left foot CLINICAL INDICATION: Status post injury with left ankle and left foot pain. TECHNIQUE: Three views left ankle, three views left foot COMPARISON: None. [facility] Nilsa Barakat MD - 08/10/2023 Patient Name: DB DOAN : 1970 Exam Date/Time: 08/10/2023 12:13 Procedure: XR ANKLE 3+ VIEWS LEFT Ordering Provider: MAR MATTHEW Reason For Exam: ANKLE PAIN COMBINED REPORT: Left ankle Left foot CLINICAL INDICATION: Status post injury with left ankle and left foot pain. TECHNIQUE: Three views left ankle, three views left foot COMPARISON: None. IMPRESSION: FINDINGS/IMPRESSION: Limitations: No significant limitations. Left ankle: Ankle mortise and talar dome appear intact. Healed fracture deformity involving the distal left fibula/lateral malleolus. Adjacent ossific fragments appear to be well corticated which suggests chronicity. Recommend correlation with point tenderness. No dislocation. Soft tissue swelling most pronounced laterally. Left foot: Chronic appearing but age indeterminant fracture deformity involving the base of the fifth metatarsal. Recommend correlation with point tenderness. No dislocation. No significant arthropathy. Soft tissue swelling most pronounced along the lateral mid foot. Report Dictated on Electronically Signed By: Polo Barakat MD Electronically Signed Date/Time: 08/10/2023 12:[address] [facility] Radiology Study observation (narrative) [facility] XR Foot - left 3 Viewson Patient Name: DB DOAN : 1970 Exam Date/Time: 08/10/2023 11:37 Procedure: XR FOOT 3+ VIEWS LEFT Ordering Provider: MAR MATTHEW Reason For Exam: Ankle trauma, no prior imaging (Age >= 5y) COMBINED REPORT: Left ankle Left foot CLINICAL INDICATION: Status post injury with left ankle and left foot pain. TECHNIQUE: Three views left ankle, three views left foot COMPARISON: None. [facility] Nilsa Barakat MD - 08/10/2023 Patient Name: DB DOAN : 1970 Exam Date/Time: 08/10/2023 11:37 Procedure: XR FOOT 3+ VIEWS LEFT Ordering Provider: MAR MATTHEW Reason For Exam: Ankle trauma, no prior imaging (Age >= 5y) COMBINED REPORT: Left ankle Left foot CLINICAL INDICATION: Status post injury with left ankle and left foot pain. TECHNIQUE: Three views left ankle, three views left foot COMPARISON: None. IMPRESSION: FINDINGS/IMPRESSION: Limitations: No significant limitations. Left ankle: Ankle mortise and talar dome appear intact. Healed fracture deformity involving the distal left fibula/lateral malleolus. Adjacent ossific fragments appear to be well corticated which suggests chronicity. Recommend correlation with point tenderness. No dislocation. Soft tissue swelling most pronounced laterally. Left foot: Chronic appearing but age indeterminant fracture deformity involving the base of the fifth metatarsal. Recommend correlation with point tenderness. No dislocation. No significant arthropathy. Soft tissue swelling most pronounced along the lateral mid foot. Report Dictated on Electronically Signed By: Polo Barakat MD Electronically Signed Date/Time: 08/10/2023 12:[address] [facility] Radiology Study observation (narrative) [facility] ED NOTEon 08-03-2023 ED NOTE HNO ID: [id number] Author: GALLO ROLDAN RN Service: ? Author Type: Registered Nurse Type: ED Notes Filed: 08/03/2023 04:10 Note Text: Patient to ed for chronic back pain. [facility] ED PROV NOTEon 08-03-2023 ED PROV NOTE HNO ID: [id number] Author: LATANYA HELM MD Service: Emergency Medicine [...] an appointment to see the neurosurgeon at [facility]. Examination she is awake she is [...] None Dispositio (more content not included)... Normal [facility] CNOVon 07-25-2023 CNOV Office Visit (AGSPIN E2) DB DOAN ([id number]) 1970 F Date Time Provider Department 07/25/23 9:00 AM TRISHA TENORIO AGSPINE2 During your visit today, we recorded the following information about you: Trisha Tenorio APRN.[facility] 07/22/2023 7:07 AM Signed Ice and heat as tolerated Activity as tolerated Referring Provider: SELF [200] Allergies As of Date: 07/25/2023 (No Known Allergies) Date Reviewed: 03/09/2023 Reviewed by: Luis Howard RN - Fully Assessed Primary Visit Diagnosis:APPOINTMENT CANCELLED [...] [M51.36]12/03/2018 Sprain or strain of cervical spine [AJW8289] 07/16/2014 Sacroiliitis (HCC) [M46.1] 05/02/2022 Primary osteoarthritis [...] Encounter Status:Closed by TRISHA TENORIO on 07/29/23 [facility] ABD GB/PANC/LIVERon 06-15-19 24 ABD GB/PANC/LIVER DB DOAN Female [id number] Ordering physician: Babs Lou LOC:ER [id number] Attending physician: 1970 53 DO S: 06/15/23 Acc#: [id number] Exam/Proc: ABD GB/PANC/LIVER Dept: ULTRASOUND EXAMINATION: ULTRASOUND [...] 06/15/2023 12:51:21 PM EST Workstation ID : [id number] REPORT SIGNATURE ON FILE Electronically Signed Date/Time: 06/15/23 1251 Dictated Date/time: 06/15/23 1247 CC: [facility] ABDOMEN/PELVIS W/CONTRASTon 06-15-2023 ABDOMEN/PELVIS W/CONTRAST DB DOAN Female [id number] Ordering physician: Babs Lou LOC:ER [id number] Attending physician: 1970 53 DO S: 06/15/23 Acc#: [id number] Exam/Proc: ABDOMEN/PELVIS W/CONTRAST Dept: COMPUTED TOMOGRAPHY EXAMINATION: [...] 06/15/2023 11:17:09 AM EST Workstation ID : [id number] REPORT SIGNATURE ON FILE Electronically Signed Date/Time: 06/15/23 1117 Dictated Date/time: 06/15/23 1110 CC: Normal [facility] Bilirubin Test strip Ql (U)O rdered By: Babs Lou on 06-15-2023 Bilirubin Ql (U) Negative NEGATIVE [facility] CBC with AUTO DIFFon 024 BAS0 % 0.10 % Normal 0-2 [facility] Comment on above: Performed By: #### D IFF (MANUAL), CBC #### [address] [address] Basophils (Bld) [#/Vol] 0.0 10*3/uL Normal 0-0.1 [facility] Comment on above: Performed By: #### D IFF (MANUAL), CBC #### [address] [address] Eosinophils (Bld) [#/Vol] 0.0 10*3/uL Normal 0.0-1.80 [facility] Comment on above: Performed By: #### D IFF (MANUAL), CBC #### [address] [address] Eosinophils/100 WBC (Bld) 0 % Normal 0-8 [facility] Comment on above: Performed By: #### D IFF (MANUAL), CBC #### [address] [address] GRAN # 12.5 K/uL High 2.2-9.1 [facility] Comment on above: Performed By: #### D IFF (MANUAL), CBC #### [address] [address] GRAN % 86.1 % High 42-80 [facility] Comment on above: Performed By: #### D IFF (MANUAL), CBC #### [address] [address] Hematocrit (Bld) [Volume fraction] 38.8 % Normal 37.0-47.0 [facility] Comment on above: Performed By: #### D IFF (MANUAL), CBC #### [facility] [address] [place] [address] Hemoglobin (Bld) [Mass/Vol] 13.7 g/dL Normal 12.0-16.0 [facility] Comment on above: Performed By: #### D IFF (MANUAL), CBC #### [facility] [address] [place] [address] Lymphocytes (Bld) [#/Vol] 1.2 10*3/uL Normal 1.0-4.0 [facility] Comment on above: Performed By: #### D IFF (MANUAL), CBC #### [facility] [address] [place] [address] Lymphocytes/100 WBC (Bld) 8.6 % Low 16-48 [facility] Comment on above: Performed By: #### D IFF (MANUAL), CBC #### [address] [place] [address] MCV (RBC) [Entitic vol] 93.5 fL Normal 80-97 [facility] Comment on above: Performed By: #### D IFF (MANUAL), CBC #### [address] [place] [address] MEAN CORPUSCULAR HGB 33.0 pg High 26.0-32.0 [facility] Comment on above: Performed By: #### D IFF (MANUAL), CBC #### [address] [place] [address] MEAN CORPUSCULAR HGB CONC 35.3 g/dL Normal 31.0-36.0 [facility] Comment on above: Performed By: #### D IFF (MANUAL), CBC #### [address] [place] [address] MONO DISTRIB WIDTH 16.15 Normal 0-20 [facility] Comment on above: Result Comment: For ED adult patients suspected of sepsis, MDW<=20.0 does not rule out sepsis or risk of sepsis Performed By: #### D IFF (MANUAL), CBC #### [facility] [address] [place] [address] Monocytes (Bld) [#/Vol] 0.8 10*3/uL Normal 0.1-1.7 [facility] Comment on above: Performed By: #### D IFF (MANUAL), CBC #### [facility] [address] [place] [address] Monocytes/100 WBC (Bld) 5.2 % Normal 3-9 [facility] Comment on above: Performed By: #### D IFF (MANUAL), CBC #### [facility] [address] [place] [address] Platelet mean volume (Bld) [Entitic vol] 5.8 fL Low 6.6-10.5 [facility] Comment on above: Performed By: #### D IFF (MANUAL), CBC #### [facility] [address] [place] [address] Platelets (Bld) [#/Vol] 429 10*3/uL Normal 140-450 [facility] Comment on above: Performed By: #### D IFF (MANUAL), CBC #### [facility] [address] [place] [address] RBC (Bld) [#/Vol] 4.15 10*6/uL Low 4.20-5.50 [facility] Comment on above: Performed By: #### D IFF (MANUAL), CBC #### [facility] [address] [place] [address] RED CELL DISTRI WIDTH 13.1 % Normal 11.0-15.5 [facility] Comment on above: Performed By: #### D IFF (MANUAL), CBC #### [facility] [address] [place] [address] WBC (Bld) [#/Vol] 14.5 10*3/uL High 4.0-11.0 [facility] Comment on above: Performed By: #### D IFF (MANUAL), CBC #### [facility] [address] [place] [address] COMPREHENSIVE METABOLIC PANE Walt 06-15-2023 Albumin [Mass/Vol] 3.2 g/dL Low 3.4-5.0 [facility] Comment on above: Performed By: #### M N, HCG, LIP ####[facility] [place] [address] Albumin/Globulin [Mass ratio] 1.1 {ratio} Normal 1.1-1.8 [facility] Comment on above: Performed By: #### M N, HCG, LIP ####[facility] [place] [address] ALP [Catalytic activity/Vol] 47 U/L Normal 45-117 [facility] Comment on above: Performed By: #### M N, HCG, LIP ####[facility] [place] [address] ALT [Catalytic activity/Vol] 30 U/L Normal 12-78 [facility] Comment on above: Performed By: #### M N, HCG, LIP ####[facility] [place] [address] Anion gap [Moles/Vol] 13.1 mmol/L Normal 11-23 [facility] Comment on above: Performed By: #### M N, HCG, LIP ####[facility] [place] [address] AST [Catalytic activity/Vol] 16 U/L Normal 15-37 [facility] Comment on above: Performed By: #### M N, HCG, LIP ####[facility] [place] [address] Bilirubin [Mass/Vol] 0.5 mg/dL Normal 0.2-1.0 [facility] Comment on above: Performed By: #### M N, HCG, LIP ####[facility] [place] [address] Calcium [Mass/Vol] 9.0 mg/dL Normal 8.5-10.1 [facility] Comment on above: Performed By: #### M N, HCG, LIP ####[facility] [place] [address] Chloride [Moles/Vol] 108 mmol/L High 98-107 [facility] Comment on above: Performed By: #### M N, HCG, LIP ####[facility] [place] [address] CO2 [Moles/Vol] 23.0 mmol/L Normal 21-32 [facility] Comment on above: Performed By: #### M N, HCG, LIP ####[facility] [place] [address] Creatinine [Mass/Vol] 0.90 mg/dL Normal 0.55-1.02 [facility] Comment on above: Performed By: #### M N, HCG, LIP ####[place] [address] [place] [address] GFR > 60.0 [facility] Comment on above: Performed By: #### M N, HCG, LIP ####[address] [place] [address] GFR AM > 60.0 [facility] Comment on above: Result Comment: THE NORMAL LEVEL OF GFR VARIES ACCORDING TO AGE, SEX, AND BODY SIZE. A GFR LEVEL OF LESS THAN 60 ML/MIN REPRESENTS LOSS OF THE ADULT LEVEL OF NORMAL KIDNEY FUNCTION. Performed By: #### M N, HCG, LIP ####[address] [place] [address] Globulin (S) [Mass/Vol] 2.8 g/dL Normal 2.5-4.6 [facility] Comment on above: Performed By: #### M N HCG, LIP ####[address] [place] [address] Glucose [Mass/Vol] 143 mg/dL High 70-100 [facility] Comment on above: Performed By: #### M N HCG, LIP ####[address] [place] [address] Potassium [Moles/Vol] 3.4 mmol/L Low 3.5-5.1 [facility] Comment on above: Performed By: #### M N HCG, LIP ####[address] [place] [address] Protein [Mass/Vol] 6.0 g/dL Normal 6.0-8.3 [facility] Comment on above: Performed By: #### M N, HCG, LIP ####[address] [place] [address] Sodium [Moles/Vol] 141 mmol/L Normal 136-145 [facility] [facility] Comment on above: Performed By: #### M N, HCG, LIP ####[facility] [place] [address] Urea nitrogen [Mass/Vol] 9.0 mg/dL Normal 7-18 [facility] Comment on above: Performed By: #### M N, HCG, LIP ####[address] [place] [address] DIFFERENTIALon 06-15-2023 IMMATURE GRANS NONE SEEN [facility] Comment on above: Performed By: #### D IFF (MANUAL), CBC #### [facility] [address] [place] [address] Lymphocytes/100 WBC (Bld) 9 % Low 16-48 [facility] Comment on above: Performed By: #### D IFF (MANUAL), CBC #### [facility] [address] [place] [address] Monocytes/100 WBC (Bld) 5 % Normal 3-9 [facility] Comment on above: Performed By: #### D IFF (MANUAL), CBC #### [facility] [address] [place] [address] Neutrophils/100 WBC (Bld) 86 % High 42-80 [facility] Comment on above: Performed By: #### D IFF (MANUAL), CBC #### [facility] [address] [place] [address] PLATELET ESTIMATE NORMAL Normal [facility] Comment on above: Performed By: #### D IFF (MANUAL), CBC #### [facility] [address] [place] [address] RBC morphology finding Nom (Bld) ESSENTIALLY NORMAL Normal [facility] Comment on above: Performed By: #### D IFF (MANUAL), CBC #### [facility] [address] [place] [address] TOTAL CELLS COUNTED 100 #CELLS Normal [facility] Comment on above: Performed By: #### D IFF (MANUAL), CBC #### [facility] [address] [place] [address] Determination of erythrocyte mean corpuscular volume (MCV)Ordered By: Babs Lou on 06-15-2023 MCV (RBC) [Entitic vol] 93.5 fL 80-97 [facility] ED.PDOCon 06-15-2023 ED.PDOC DB DOAN Female [id number] Attending provider: [employer] [id number] Babs Lou 1970 53 DOS: 06/15/23 Hx/Exam - History of Present Illness Chief Complaint: HEADACHE Additional Comments: 53-year-old female states [place] [facility] last night and was in the hospital. [...] here and then decided to come to [place]. 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 Normal [facility] EGFR non- AmericanOrd ered By: Babs Lou on 06-15-2023 GFR/1.73 sq M.predicted among non-blacks MDRD (S/P/Bld) [Vol rate/Area] mL/min/{1.73_m2} [facility] Eosinophil percentOrdered By : Babs Lou on 06-15-2023 Basophils/100 WBC (Bld) 0.10 % 0-2 [facility] Bilirubin [Mass/Vol] 0.5 mg/dL 0.2-1.0 [facility] Chloride [Moles/Vol] 108 mmol/L High 98-107 [facility] Eosinophils/100 WBC (Bld) 0 % 0-8 [facility] Hemoglobin (Bld) [Mass/Vol] 13.7 g/dL 12.0-16.0 [facility] Lactate [Moles/Vol] 4.5 mmol/L High 0.4-2.0 [facility] Lymphocytes (Bld) [#/Vol] 1.2 10*3/uL 1.0-4.0 [facility] Lymphocytes/100 WBC (Bld) 8.6 % Low 16-48 [facility] Monocytes (Bld) [#/Vol] 0.8 10*3/uL 0.1-1.7 [facility] Monocytes/100 WBC (Bld) 5.2 % 3-9 [facility] Potassium [Moles/Vol] 3.4 mmol/L Low 3.5-5.1 [facility] Protein [Mass/Vol] 6.0 g/dL 6.0-8.3 [facility] Sodium [Moles/Vol] 141 mmol/L 136-145 [facility] Fluoroscopic guidance for danny mbar puncture (LP)Ordered By: Babs Lou on 06-15-2023 Albumin [Mass/Vol] 3.2 g/dL Low 3.4-5.0 [facility] Basophils (Bld) [#/Vol] 0.0 10*3/uL 0-0.1 [facility] Eosinophils (Bld) [#/Vol] 0.0 10*3/uL 0.0-1.80 [facility] Glucose Test strip Ql (U)Ord ered By: Babs Carmine on 06-15-2023 Glucose Ql (U) Negative NEGATIVE [facility] Granulocytes/100 WBC Auto (B ld)Ordered By: Babs Lou on 06-15-2023 Granulocytes/100 WBC (Bld) 86.1 % High 42-80 [facility] HCG SERUM,QUALITATIVEon 06-02 HCG SERUM,QUALITATIVE Negative Normal [facility] Comment on above: Performed By: #### M N, HCG, LIP ####[address] [address] HCG ser/plasOrdered By: Sabas Lou on 06-15-2023 HCG Qn Negative [facility] HEAD W/O CONTRASTon 06-15-19 HEAD W/O CONTRAST FRANKIDB Female [id number] Ordering physician: Babs Lou LOC:ER [id number] Attending physician: 1970 53 DO S: 06/15/23 Acc#: [id number] Exam/Proc: HEAD W/O CONTRAST Dept: COMPUTED TOMOGRAPHY [...] 06/15/2023 11:10:38 AM EST Workstation ID : [id number] REPORT SIGNATURE ON FILE Electronically Signed Date/Time: 06/15/23 1110 Dictated Date/time: 06/15/23 1108 CC: Normal [facility] LACTIC ACIDon 06-15-2023 Lactate [Moles/Vol] 4.5 mmol/L High 0.4-2.0 [facility] Comment on above: Order Comment: Y Performed By: #### L A ####[facility] [place] [address] LIPASEon 06-15-2023 Lipase [Catalytic activity/Vol] 15 U/L Normal [facility] Comment on above: Performed By: #### M N, HCG, LIP ####[facility] [place] [address] Laboratory - Chemistry and C hemistry - challengeOrdered By: Babs Lou on 06-15-2023 Albumin/Globulin [Mass ratio] 1.1 {ratio} 1.1-1.8 [facility] ALP [Catalytic activity/Vol] 47 U/L 45-117 [facility] ALT [Catalytic activity/Vol] 30 U/L 12-78 [facility] AST [Catalytic activity/Vol] 16 U/L 15-37 [facility] Calcium [Mass/Vol] 9.0 mg/dL 8.5-10.1 [facility] CO2 [Moles/Vol] 23.0 mmol/L 21-32 [facility] Creatinine [Mass/Vol] 0.90 mg/dL 0.55-1.02 [facility] GFR/1.73 sq M.predicted MDRD (S/P/Bld) [Vol rate/Area] mL/min/{1.73_m2} [facility] Comment on above: THE NORMAL LEVEL OF GFR VARIES ACCORDING TO AGE, SEX, AND BODY SIZE. A GFR LEVEL OF LESS THAN 60 ML/MIN REPRESENTS LOSS OF THE ADULT LEVEL OF NORMAL KIDNEY FUNCTION. Globulin (S) [Mass/Vol] 2.8 g/dL 2.5-4.6 [facility] Glucose [Mass/Vol] 143 mg/dL High 70-100 [facility] Lipase [Catalytic activity/Vol] 15 U/L 13-75 [facility] Urea nitrogen [Mass/Vol] 9.0 mg/dL 7-18 [facility] Laboratory - Hematology and Cell countsOrdered By: Babs Lou on 06-15-2023 Erythrocyte distribution width (RBC) [Ratio] 13.1 % 11.0-15.5 [facility] Granulocytes (Bld) [#/Vol] 12.5 10*3/uL High 2.2-9.1 [facility] Hematocrit (Bld) [Volume fraction] 38.8 % 37.0-47.0 [facility] MCH (RBC) [Entitic mass] 33.0 pg High 26.0-32.0 [facility] MCHC (RBC) [Mass/Vol] 35.3 g/dL 31.0-36.0 [facility] Platelet mean volume (Bld) [Entitic vol] 5.8 fL Low 6.6-10.5 [facility] Platelets (Bld) [#/Vol] 429 10*3/uL 140-450 [facility] RBC (Bld) [#/Vol] 4.15 10*6/uL Low 4.20-5.50 [facility] Segmented neutrophils/100 WBC (Bld) 86 % High 42-80 [facility] WBC (Bld) [#/Vol] 14.5 10*3/uL High 4.0-11.0 [facility] Laboratory - UrinalysisOrder ed By: Babs Lou on 06-15-2023 Protein Ql (U) Negative NEGATIVE [facility] Laboratory StudiesOrdered By : Babs Lou on 06-15-2023 Urobilinogen Ql (U) 0.2 E.U./dL <=1.0 [facility] pH (U) 6.5 [pH] Normal 5.0-9.0 [facility] Comment on above: Order Comment: What Is Urine Source? Random Performed By: #### U A ####[address] [address] Laboratory studies (set)on 0 06-15-2023 Appearance (U) CLEAR [facility] Bilirubin Ql (U) NEGATIVE [facility] Color (U) [facility] Glucose Ql (U) NEGATIVE [facility] Hemoglobin Ql (U) NEGATIVE [facility] Ketones Ql (U) NEGATIVE [facility] Leukocyte esterase Test strip Ql (U) NEGATIVE [facility] Nitrite Ql (U) NEGATIVE [facility] Protein Ql (U) NEGATIVE [facility] Specific gravity (U) [Rel density] 1.003-1.035 [facility] Albumin [Mass/Vol] 3.2 g/dL Low 3.4-5.0 [facility] Albumin/Globulin [Mass ratio] 1.1 {ratio} 1.1-1.8 [facility] ALP [Catalytic activity/Vol] 47 U/L 45-117 [facility] ALT [Catalytic activity/Vol] 30 U/L 12-78 [facility] Anion gap [Moles/Vol] 13.1 mmol/L 11-23 [facility] AST [Catalytic activity/Vol] 16 U/L 15-37 [facility] Basophils (Bld) [#/Vol] 0.0 10*3/uL 0-0.1 [facility] Basophils/100 WBC (Bld) 0.10 % 0-2 [facility] Bilirubin [Mass/Vol] 0.5 mg/dL 0.2-1.0 [facility] Calcium [Mass/Vol] 9.0 mg/dL 8.5-10.1 [facility] Chloride [Moles/Vol] 108 mmol/L High 98-107 Josué ance [facility] CO2 [Moles/Vol] 23.0 mmol/L 21-32 [facility] Creatinine [Mass/Vol] 0.90 mg/dL 0.55-1.02 [facility] Differential Total Cells Counted 100 #CELLS [facility] Eosinophils (Bld) [#/Vol] 0.0 10*3/uL 0.0-1.80 [facility] Eosinophils/100 WBC (Bld) 0 % 0-8 [facility] Erythrocyte distribution width (RBC) [Ratio] 13.1 % 11.0-15.5 [facility] Estimated GFR () [facility] Comment on above: THE NORMAL LEVEL OF GFR VARIES ACCORDING TO AGE, SEX, AND BODY SIZE. A GFR LEVEL OF LESS THAN 60 ML/MIN REPRESENTS LOSS OF THE ADULT LEVEL OF NORMAL KIDNEY FUNCTION. GFR/1.73 sq M.predicted among non-blacks MDRD (S/P/Bld) [Vol rate/Area] [facility] Globulin (S) [Mass/Vol] 2.8 g/dL 2.5-4.6 [facility] Glucose [Mass/Vol] 143 mg/dL High 70-100 [facility] Granulocytes (Bld) [#/Vol] 12.5 10*3/uL High 2.2-9.1 [facility] Granulocytes/100 WBC (Bld) 86.1 % High 42-80 [facility] HCG Qn [facility] Hematocrit (Bld) [Volume fraction] 38.8 % 37.0-47.0 [facility] Hemoglobin (Bld) [Mass/Vol] 13.7 g/dL 12.0-16.0 [facility] Immature Granulocytes [facility] Lactate [Moles/Vol] 4.5 mmol/L High 0.4-2.0 [facility] Lipase [Catalytic activity/Vol] 15 U/L 13-75 [facility] Lymphocytes (Bld) [#/Vol] 1.2 10*3/uL 1.0-4.0 [facility] Lymphocytes Auto (Unsp spec) [#/Vol] 9 % Low 16-48 [facility] Lymphocytes/100 WBC (Bld) 8.6 % Low 16-48 [facility] MCH (RBC) [Entitic mass] 33.0 pg High 26.0-32.0 [facility] MCHC (RBC) [Mass/Vol] 35.3 g/dL 31.0-36.0 [facility] MCV (RBC) [Entitic vol] 93.5 fL 80-97 [facility] Monocyte distribution width Auto (Bld) [Entitic vol] 16.15 0-20 [facility] Comment on above: For ED adult patient s suspected of sepsis, MDW<=20.0 does not rule out sepsis or risk of sepsis Monocytes (Bld) [#/Vol] 0.8 10*3/uL 0.1-1.7 [facility] Monocytes/100 WBC (Bld) 5 % 3-9 [facility] Monocytes/100 WBC (Bld) 5.2 % 3-9 [facility] Platelet mean volume (Bld) [Entitic vol] 5.8 fL Low 6.6-10.5 [facility] Platelets (Bld) [#/Vol] 429 10*3/uL 140-450 [facility] Platelets LM Ql (Bld) [facility] Potassium [Moles/Vol] 3.4 mmol/L Low 3.5-5.1 [facility] Protein [Mass/Vol] 6.0 g/dL 6.0-8.3 [facility] RBC (Bld) [#/Vol] 4.15 10*6/uL Low 4.20-5.50 [facility] RBC morphology finding Nom (Bld) [facility] Segmented neutrophils/100 WBC (Bld) 86 % High 42-80 [facility] Sodium [Moles/Vol] 141 mmol/L 136-145 [facility] Urea nitrogen [Mass/Vol] 9.0 mg/dL 7-18 [facility] WBC (Bld) [#/Vol] 14.5 10*3/uL High 4.0-11.0 [facility] LymphoOrdered By: Babs narayan on 06-15-2023 Lymphocytes Auto (Unsp spec) [#/Vol] 9 % Low 16-48 [facility] Monocyte distribution width [Entitic volume] in Blood by AutomatedOrdered By: Babs Lou on 06-15-2023 Monocyte distribution width Auto (Bld) [Entitic vol] 16.15 0-20 [facility] Comment on above: For ED adult patient s suspected of sepsis, MDW<=20.0 does not rule out sepsis or risk of sepsis Monocytes (Bld) [#/Vol]Order ed By: Babs Lou on 06-15-2023 Monocytes/100 WBC (Bld) 5 % 3-9 [facility] Nitrite Test strip Ql (U)Ord ered By: Babs Lou on 06-15-2023 Nitrite Ql (U) Negative NEGATIVE [facility] No Panel InformationOrdered By: Babs Lou on 06-15-2023 Differential Total Cells Counted 100 #CELLS [facility] Immature Granulocytes None seen [facility] Platelet estimateOrdered By: Babs Lou on 06-15-2023 Platelets LM Ql (Bld) Normal [facility] RBC morphologyOrdered By: St maryellen Lou on 06-15-2023 RBC morphology finding Nom (Bld) Essentially normal [facility] Serum or plasma anion gapOrd ered By: Babs Lou on 06-15-2023 Anion gap [Moles/Vol] 13.1 mmol/L 01-24 [facility] Specific gravity Test strip (U) [Rel density]Ordered By: Babs oLu on 06-15-2023 Specific gravity (U) [Rel density] <= 1.005 1.003-1.035 [facility] URINALYSISon 06-15-2023 URINE BILIRUBIN - DIPSTICK Negative Normal NEGATIVE [facility] Comment on above: Order Comment: What Is Urine Source? Random Performed By: #### U A ####[address] [place] [address] URINE GLUCOSE -DIPSTICK Negative Normal NEGATIVE [facility] Comment on above: Order Comment: What Is Urine Source? Random Performed By: #### U A ####[address] [place] [address] URINE KETONE Negative Normal NEGATIVE [facility] Comment on above: Order Comment: What Is Urine Source? Random Performed By: #### U A ####[address] [place] [address] URINE LEUK ESTERASE Negative Normal NEGATIVE [facility] Comment on above: Order Comment: What Is Urine Source? Random Performed By: #### U A ####[address] [place] [address] URINE NITRITE - DIPSTICK Negative Normal NEGATIVE [facility] Comment on above: Order Comment: What Is Urine Source? Random Performed By: #### U A ####[address] [place] [address] URINE PROTEIN - DIPSTICK Negative Normal NEGATIVE [facility] Comment on above: Order Comment: What Is Urine Source? Random Performed By: #### U A ####[address] [place] [address] URINE SPEC GRAVITY, DIPSTICK <= 1.005 Normal 1.003-1.035 [facility] Comment on above: Order Comment: What Is Urine Source? Random Performed By: #### U A ####[address] [place] [address] URINE UROBILINOGEN - DIPSTICK 0.2 E.U./dL Normal <=1.0 [facility] Comment on above: Order Comment: What Is Urine Source? Random Performed By: #### U A ####[address] [place] [address] Urine appearance determinati onOrdered By: Babs Lou on 06-15-2023 Appearance (U) Clear Normal CLEAR [facility] Comment on above: Order Comment: What Is Urine Source? Random Performed By: #### U A ####[address] [place] [address] Urine blood detection by dip stickOrdered By: Babs Lou on 06-15-2023 Hemoglobin Ql (U) Negative Normal NEGATIVE [facility] Comment on above: Order Comment: What Is Urine Source? Random Performed By: #### U A ####[address] [place] [address] Urine colorOrdered By: Bigg Lou on 06-15-2023 Color (U) Lt. yellow Normal [facility] Comment on above: Order Comment: What Is Urine Source? Random Performed By: #### U A ####[address] [place] [address] Urine ketones detectionOrder ed By: Babs Lou on 06-15-2023 Ketones Ql (U) Negative NEGATIVE [facility] Urine leukocyte esterase det ection by dipstickOrdered By: Babs Lou on 06-15-2023 Leukocyte esterase Test strip Ql (U) Negative NEGATIVE [facility] XR Sacrum and Coccyx 2 Views on 05-24-2023 No acute fracture or dislocation identified. Report Dictated on Electronically Signed By: Itz Garcia MD Electronically Signed Date/Time: 05/24/2023 6:23 AM [facility] Patient Name: DB DOAN : 1970 Exam Date/Time: 05/24/2023 06:09 Procedure: XR SACRUM COCCYX 2+ VIEWS Ordering Provider: VELÁZQUEZ KATHRYN Reason For Exam: tail bone pain after fall SACRUM/COCCYX SERIES CLINICAL INDICATION: Pain TECHNIQUE: 3 views COMPARISON: 03/30/2023 FINDINGS: There is no evidence for fracture or bone lesion. No osseous lesions are identified. The sacroiliac joints are unremarkable. There is no soft tissue abnormality. [facility] Itz Garcia MD - 05/24/2023 Patient Name: DB DOAN : 1970 Exam Date/Time: 05/24/2023 06:09 Procedure: XR SACRUM COCCYX 2+ VIEWS Ordering Provider: VELÁZQUEZ KATHRYN Reason For Exam: tail bone pain after fall SACRUM/COCCYX SERIES CLINICAL INDICATION: Pain TECHNIQUE: 3 views COMPARISON: 03/30/2023 FINDINGS: There is no evidence for fracture or bone lesion. No osseous lesions are identified. The sacroiliac joints are unremarkable. There is no soft tissue abnormality. IMPRESSION: No acute fracture or dislocation identified. Report Dictated on Electronically Signed By: Itz Garcia MD Electronically Signed Date/Time: 05/24/2023 6:[address] [facility] Radiology Study observation (narrative) [facility] XR Sacrum and Coccyx 2 Views Ordered By: Itz Garcia on 05-24-2023 [facility] Work Phone: Appearance UrOrdered By: Richard Murphy on 05-17-2023 Appearance (U) SLIGHTLY-CLOUDY CLEAR [facility] Bacteria UrnS Ql MicroOrdere d By: Kendra Murphy on 05-17-2023 Bacteria LM Ql (Urine sed) TR NEG [facility] Bile Ac Ur QlOrdered By: Richard Murphy on 05-17-2023 Bile acid Ql (U) Negative NEG [facility] Color UrOrdered By: Kendra juarez on 05-17-2023 Color (U) YELLOW YELLOW [facility] Glucose Ur Ql Strip.autoOrde red By: Kendra Murphy on 05-17-2023 Glucose Auto test strip Ql (U) Negative NEG [facility] HCG Ur QlOrdered By: Kendra rascon on 05-17-2023 HCG ( test) Ql (U) Negative NEG [facility] Hgb Ur Ql Strip.autoOrdered By: Kendra Murphy on 05-17-2023 Hemoglobin Auto test strip Ql (U) Negative NEG [facility] Ketones Ur Ql Strip.autoOrde red By: Kendra Murphy on 05-17-2023 Ketones Auto test strip Ql (U) Negative NEG [facility] Nitrite Ur Ql Strip.autoOrde red By: Kendra Murphy on 05-17-2023 Nitrite Auto test strip Ql (U) Negative NEG [facility] No Panel InformationOrdered By: Kendra Murphy on 05-17-2023 Urine Ascorbic Acid Level Negative NEG [facility] Prot Ur Ql Strip.autoOrdered By: Kendra Murphy on 05-17-2023 Protein Auto test strip Ql (U) Negative NEG [facility] RBC #/area UrnS HPFOrdered B y: Kendra Murphy on 05-17-2023 RBC LM.HPF (Urine sed) [#/Area] 0-2 NEG [facility] Specific gravity Auto test s trip (U) [Rel density]Ordered By: Kendra Murphy on 05-17-2023 Specific gravity (U) [Rel density] 1.003 1.002-1.030 [facility] Squamous #/area UrnS HPFOrde red By: Kendra Murphy on 05-17-2023 Epithelial cells.squamous LM.HPF (Urine sed) [#/Area] 6-10 NEG [facility] Urobilinogen Test strip Ql ( U)Ordered By: Kendra Murphy on 05-17-2023 Urobilinogen Ql (U) Negative <2.0 [facility] WBC #/area UrnS HPFOrdered B y: Kendra Murphy on 05-17-2023 WBC LM.HPF (Urine sed) [#/Area] 6-10 NEG [facility] WBC Ur Ql AutoOrdered By: Nimisha Murphy on 05-17-2023 WBC Auto Ql (U) TR NEG [facility] pH Auto test strip (U)Ordere d By: Kendra Murphy on 05-17-2023 pH (U) 7.0 [pH] 4.6-8.0 [facility] XR SPINE LUMBOSACRAL MINIMUM 4 VIEWSon 05-16-2023 [...] 05/16/2023 5:46:11 AM Ordering Provider: YAMILET Briceno [facility] CT Lumbar spine WO contrasto n 05-06-2023 1. No acute osseous abnormality. 2. No central canal stenosis or obvious neural foraminal narrowing. [facility] EXAMINATION: CT OF THE LUMBAR [...] No evidence of prevertebral soft tissue edema. [facility] Kutlick, Ismael A, DO - 05/06/2023 EXAMINATION: CT OF THE [...] canal stenosis or obvious neural foraminal narrowing. [facility] [employer] Radiology Study observation (narrative) [facility] [employer] [facility] CT Lumbar spine WO contrastO rdered By: Ismael Hurst on 05-06-2023 [facility] [employer] Work Phone: CT Lumbar wo contraston 04-05 [...] by: ITZ GARCIA MD, Date: 05/02/2023 08:44 [facility] BMPon 04-25-2023 Anion gap [Moles/Vol] 10 mmol/L 7 - 16 mmol/L [facility] Calcium [Mass/Vol] 9.5 mg/dL 8.6 - 10. 2 mg/dL [facility] Chloride [Moles/Vol] 104 mmol/L 98 - 10 7 mmol/L [facility] CO2 [Moles/Vol] 28 mmol/L 22 - 29 mmol/L [facility] Creatinine [Mass/Vol] 0.7 mg/dL 0.50 - 1.00 mg/dL [facility] GFR/1.73 sq M.predicted MDRD (S/P/Bld) [Vol rate/Area] - PINF [facility] Comment on above: These results are not [...] [Mass/Vol] 97 mg/dL 74 - 99 mg/dL [facility] Potassium [Moles/Vol] 4.1 mmol/L 3.5 - 5.0 mmol/L [facility] HEALTHCARE Sodium [Moles/Vol] 142 mmol/L 132 - 146 mmol/L [facility] Urea nitrogen [Mass/Vol] 8 mg/dL 6 - 20 mg/dL [facility] CBC with Auto Differentialon 04-25-2023 Basophils (Bld) [#/Vol] 0.02 10*3/uL [facility] Basophils/100 WBC (Bld) 1 % 0.0 - 2.0 % [facility] Eosinophils (Bld) [#/Vol] 0.05 10*3/uL [facility] Eosinophils/100 WBC (Bld) 1 % 0 - 6 % [facility] Erythrocyte distribution width (RBC) [Ratio] 11.9 % 11.5 - 15.0 % [facility] Hematocrit (Bld) [Volume fraction] 37.9 % 34.0 - 48.0 % [facility] Hemoglobin (Bld) [Mass/Vol] 13.6 g/dL 11.5 - 15.5 g/dL [facility] Immature granulocytes (Bld) [#/Vol] [facility] Immature granulocytes/100 WBC (Bld) 0 % 0.0 - 5.0 % [facility] Interpretation and review of laboratory results Abnormal [facility] Lymphocytes/100 WBC (Bld) 40 % 20.0 - 42.0 % [facility] Lymphocytes/100 WBC (Bld) 1.67 % [facility] MCH (RBC) [Entitic mass] 32.4 pg 26.0 - 35.0 pg [facility] MCHC (RBC) [Mass/Vol] 35.9 g/dL High 32.0 - 34.5 g/dL [facility] MCV (RBC) [Entitic vol] 90.2 fL 80.0 - 99.9 fL [facility] Monocytes/100 WBC (Bld) 10 % 2.0 - 12.0 % [facility] Monocytes/100 WBC (Bld) 0.42 % [facility] Neutrophils/100 WBC (Bld) 48 % 43.0 - 80.0 % [facility] Platelet mean volume (Bld) [Entitic vol] 7.8 fL 7.0 - 12.0 fL [facility] Platelets (Bld) [#/Vol] 319 10*3/uL [facility] RBC (Bld) [#/Vol] 4.20 10*6/uL 3.50 - 5.5 0 m/uL [facility] Segmented neutrophils/100 WBC (Bld) 2.01 % [facility] WBC other (Bld) [#/Vol] 4.2 Low [facility] Magnesiumon 04-25-2023 Magnesium [Mass/Vol] 2.1 mg/dL 1.6 - 2 .6 mg/dL [facility] No Panel Informationon 04-25 [facility] Portable XR Chest AP single viewon 04-25-2023 No acute process. HP RIS CONSOLIDATED EXAMINATION: ONE XRAY VIEW OF THE CHEST 04/25/2023 12:01 pm COMPARISON: None. HISTORY: ORDERING SYSTEM PROVIDED HISTORY: cp TECHNOLOGIST PROVIDED HISTORY: Reason for exam:->cp FINDINGS: The lungs are without acute focal process. There is no effusion or pneumothorax. The cardiomediastinal silhouette is without acute process. The osseous structures are without acute process. [facility] Tapan Pinzon MD - 04/25/2023 EXAMINATION: ONE XRAY VIEW OF THE CHEST 04/25/2023 12:01 pm COMPARISON: None. HISTORY: ORDERING SYSTEM PROVIDED HISTORY: cp TECHNOLOGIST PROVIDED HISTORY: Reason for exam:->cp FINDINGS: The lungs are without acute focal process. There is no effusion or pneumothorax. The cardiomediastinal silhouette is without acute process. The osseous structures are without acute process. IMPRESSION: No acute process. [facility] Radiology Study observation (narrative) [facility] [employer] Portable XR Chest AP single viewOrdered By: Tapan Tyler on 04-25-2023 [facility] Work Phone: Protime-INRon 04-25-2023 INR Coag (PPP) [Relative time] 1.1 {INR} [facility] Comment on above: Therapeutic Range: Moderate Anticoagulant Intensity: INR = 2.0-3.0 High Anticoagulant Intensity: INR = 2.5-3.5 PT Coag (PPP) [Time] 11.8 s [facility] Troponinon 04-25-2023 Troponin I.cardiac High sensitivity method [Mass/Vol] ng/L 0 - 9 ng/L [facility] Comment on above: High Sensitivity Troponin values cannot be compared with other Troponin methodologies. Patients with high levels of Biotin oral intake (i.e >5mg/day) may have falsely decreased Troponin levels. Samples collected within 8 hours of biotin intake may require additional information for diagnosis. [facility] [employer] [facility] No Panel Informationon 03-30 Spondylosis. No appreciable acute process. Report Dictated on Electronically Signed By: Slim Phelps MD Electronically Signed Date/Time: 03/30/2023 7:49 PM [facility] No Panel InformationOrdered By: Slim Phelps on 03-30-2023 [facility] [employer] Phone: XR Lumbar spine 2 or 3 Views on 03-30-2023 Patient Name: DB DOAN : 1970 Exam Date/Time: 03/30/2023 19:38 Procedure: XR LUMBAR SPINE 2-3 VIEWS Ordering Provider: MARTINEZ BRIGID Reason For Exam: fall/injury LIMITED LUMBAR SPINE SACROCOCCYGEAL SPINE History: Low back/tailbone pain, fall injury Comparison: 09/04/2022 Findings: Frontal, lateral, and spot lateral lumbar spine views show five lumbar type vertebrae. There is mild L5-S1 disc space narrowing and probably endplate sclerosis. There are small multilevel vertebral spurs. Evaluation of the posterior elements is limited without oblique views but there is facet joint sclerosis/arthropathy at L5-S1. There remaining lumbar vertebral bodies, disc spaces, and vertebral alignment are otherwise unremarkable. Additional frontal and lateral views of the sacrococcygeal spine are provided. On the frontal views, the sacrum is partially obscured by overlying stools. The lateral view shows no appreciable acute sacrococcygeal fracture or subluxation and its appearance is similar to last exam. The bilateral SI joint spaces are maintained. [facility] Slim Phelps MD - 03/30/2023 Patient Name: DB DOAN : 1970 Exam Date/Time: 03/30/2023 19:38 Procedure: XR LUMBAR SPINE 2-3 VIEWS Ordering Provider: MARTINEZ BRIGID Reason For Exam: fall/injury LIMITED LUMBAR SPINE SACROCOCCYGEAL SPINE History: Low back/tailbone pain, fall injury Comparison: 09/04/2022 Findings: Frontal, lateral, and spot lateral lumbar spine views show five lumbar type vertebrae. There is mild L5-S1 disc space narrowing and probably endplate sclerosis. There are small multilevel vertebral spurs. Evaluation of the posterior elements is limited without oblique views but there is facet joint sclerosis/arthropathy at L5-S1. There remaining lumbar vertebral bodies, disc spaces, and vertebral alignment are otherwise unremarkable. Additional frontal and lateral views of the sacrococcygeal spine are provided. On the frontal views, the sacrum is partially obscured by overlying stools. The lateral view shows no appreciable acute sacrococcygeal fracture or subluxation and its appearance is similar to last exam. The bilateral SI joint spaces are maintained. IMPRESSION: Spondylosis. No appreciable acute process. Report Dictated on Electronically Signed By: Slim Phelps MD Electronically Signed Date/Time: 03/30/2023 7:[address] [facility] Radiology Study observation (narrative) [facility] XR Sacrum and Coccyx 2 Views on 03-30-2023 Patient Name: DB DOAN : 1970 Exam Date/Time: 03/30/2023 19:38 Procedure: XR SACRUM COCCYX 2+ VIEWS Ordering Provider: MARTINEZ BRIGID Reason For Exam: fal/injury LIMITED LUMBAR SPINE SACROCOCCYGEAL SPINE History: Low back/tailbone pain, fall injury Comparison: 09/04/2022 Findings: Frontal, lateral, and spot lateral lumbar spine views show five lumbar type vertebrae. There is mild L5-S1 disc space narrowing and probably endplate sclerosis. There are small multilevel vertebral spurs. Evaluation of the posterior elements is limited without oblique views but there is facet joint sclerosis/arthropathy at L5-S1. There remaining lumbar vertebral bodies, disc spaces, and vertebral alignment are otherwise unremarkable. Additional frontal and lateral views of the sacrococcygeal spine are provided. On the frontal views, the sacrum is partially obscured by overlying stools. The lateral view shows no appreciable acute sacrococcygeal fracture or subluxation and its appearance is similar to last exam. The bilateral SI joint spaces are maintained. [facility] Slim Phelps MD - 03/30/2023 Patient Name: DB DOAN : 1970 Exam Date/Time: 03/30/2023 19:38 Procedure: XR SACRUM COCCYX 2+ VIEWS Ordering Provider: MARTINEZ BRIGID Reason For Exam: fal/injury LIMITED LUMBAR SPINE SACROCOCCYGEAL SPINE History: Low back/tailbone pain, fall injury Comparison: 09/04/2022 Findings: Frontal, lateral, and spot lateral lumbar spine views show five lumbar type vertebrae. There is mild L5-S1 disc space narrowing and probably endplate sclerosis. There are small multilevel vertebral spurs. Evaluation of the posterior elements is limited without oblique views but there is facet joint sclerosis/arthropathy at L5-S1. There remaining lumbar vertebral bodies, disc spaces, and vertebral alignment are otherwise unremarkable. Additional frontal and lateral views of the sacrococcygeal spine are provided. On the frontal views, the sacrum is partially obscured by overlying stools. The lateral view shows no appreciable acute sacrococcygeal fracture or subluxation and its appearance is similar to last exam. The bilateral SI joint spaces are maintained. IMPRESSION: Spondylosis. No appreciable acute process. Report Dictated on Electronically Signed By: Slim Phelps MD Electronically Signed Date/Time: 03/30/2023 7:[address] [facility] Rad[facility]narrative[facility] HNO [facility]: [id number] Author: KELVIN WRIGHT RT(R) Service: ? Author Type: Technologist Type: [...] PERIPHERAL IV DATA: Not applicable SIGNED BY: Kelvin Wright, RT(R) March 09, 2023 12:43 PM Normal [facility] ED NOTEon 03-09-2023 ED NOTE HNO ID: [id number] Author: LUIS HOWARD RN Service: ? Author Type: Registered Nurse Type: ED Notes Filed: 03/09/2023 11:49 Note Text: Left shoulder pain after lifting yesterday. History of torn rotator cuff. Normal [facility] ED PROV NOTEon 03-09-2023 ED PROV NOTE HNO ID: [id number] Author: ELIF THOMAS DO Service: Emergency Medicine [...] AM ED Provider Note Patient Name: Db Doan : 1970 SERVICE DATE: 03/09/23 History Patient presents with: Shoulder Injury: left This is a 52-year-old female that presents to emergency department with left shoulder pain after lifting items over head developing intense pain in left shoulder. She reports history of left tear and rotator cuff and was being managed by orthopedic Dr. Leidy Davis in [place]. Rates pain 8/10 sudden onset worse with movement. Right hand dominant. History provided by: Patient History limited by: n/a. public welfare director used: No PAST MEDICAL HISTORY Diagnosis Date [...] managed by orthopedic Dr. Leidy Davis in [place]. Rates pain 8/10 sudden onset worse with movement. Right hand dominant. Imaging obtained and demonstrates no acute findings. Patient will be discharged to home advised follow-up for PCP in 1 to 2 days and/or if worsening symptoms return to emergency department. Patient verbalized understanding. Shared decision making: POC discussed with patient (more content not included)... Normal [facility] XR SHLDR >/=3V AP/DAMARI AP/OTH R [...] IMPRESSION: No acute fracture/ Possible calcific tendinitis/bursitis Center Mgr: MARSHALL Transcribe Date/Time: Mar 09 2023 12:46P Dictated by : ERICA MARIE MD This examination was interpreted and the report reviewed and electronically signed by: ERICA MARIE MD on Mar 09 2023 12:47PM EST [id number] Normal [facility] ALT (SGPT) ser/plasOrdered B y: Kathia Gallego on 03-07-2023 ALT [Catalytic activity/Vol] 16 U/L 7-52 [facility] Absolute lymphocyte countOrd ered By: Kathia Gallego on 03-07-2023 Lymphocytes Auto (Unsp spec) [#/Vol] 2.9 10*3/uL 1.10-4.80 [facility] Albumin [Mass/volume] in Ser um or PlasmaOrdered By: Kathia Gallego on 03-07-2023 Albumin [Mass/Vol] 4.4 g/dL 3.5-5.0 [facility] Albumin/Globulin [Mass Ratio ] in Serum or PlasmaOrdered By: Kathia Gallego on 03-07-2023 Albumin/Globulin [Mass ratio] 2.8 {ratio} 1.1-2.2 [facility] Alkaline phosphatase [Enzyma tic activity/volume] in Serum or PlasmaOrdered By: Kathia Gallego on 03-07-2023 ALP [Catalytic activity/Vol] 42 U/L 42-121 [facility] Appearance urOrdered By: Angle Gallego on 03-07-2023 Appearance (U) Clear [facility] Aspartate aminotransferase [ Enzymatic activity/volume] in Serum or PlasmaOrdered By: Kathia Gallego on 03-07-2023 AST [Catalytic activity/Vol] 15 U/L 10-41 [facility] Basophils Auto (Bld) [#/Vol] Ordered By: Kathia Gallego on 03-07-2023 Basophils (Bld) [#/Vol] 6.3 10*3/uL 4.5-11.0 [facility] Basophils (Bld) [#/Vol] 0.0 10*3/uL 0.00-0.20 [facility] Basophils/100 WBC Auto (Bld) Ordered By: Kathia Gallego on 03-07-2023 Basophils/100 WBC (Bld) 0.5 % 0.0-1.5 [facility] Bilirubin.total [Mass/volume ] in Serum or PlasmaOrdered By: Kathia Gallego on 03-07-2023 Bilirubin [Mass/Vol] 0.4 mg/dL 0.3-1.5 [facility] Carbon dioxide, total [Moles /volume] in Serum or PlasmaOrdered By: Kathia Gallego on 03-07-2023 CO2 [Moles/Vol] 27 mmol/L 21-31 [facility] Chloride [Moles/volume] in S yeimy or PlasmaOrdered By: Kathia Gallego on 03-07-2023 Chloride [Moles/Vol] 105 mmol/L 98-107 [facility] Creatinine and Glomerular fi ltration rate.predicted panel (S/P/Bld)Ordered By: Kathia Gallego on 03-07-2023 GFR/1.73 sq M.predicted MDRD (S/P/Bld) [Vol rate/Area] 123 mL/min/{1.73_m2} >60 [facility] Detection in urine of either or both bilirubin and urobilinogenOrdered By: Kathia Gallego on 03-07-2023 Bilirubin+Urobilinoge n Ql (U) Negative Negative [facility] Eosinophils Auto (Bld) [#/Vo l]Ordered By: Kathia Gallego on 03-07-2023 Eosinophils (Bld) [#/Vol] 0.1 10*3/uL 0.00-0.33 [facility] Eosinophils/100 WBC Auto (Bl d)Ordered By: Kathia Gallego on 03-07-2023 Eosinophils/100 WBC (Bld) 1.9 % 0.0-3.0 [facility] Erythrocyte distribution wid th Auto (RBC) [Ratio]Ordered By: Kathia Gallego on 03-07-2023 Erythrocyte distribution width (RBC) [Ratio] 12.7 % 10.9-14.3 [facility] Estimated glomerular filtrat ion rate (GFR) non- AmericanOrdered By: Kathia Gallego on 03-07-2023 GFR/1.73 sq M.predicted among non-blacks MDRD (S/P/Bld) [Vol rate/Area] 102 mL/min/{1.73_m2} >60 [facility] Fibrin D-dimer FEU measureme nt in platelet poor plasma (mass/volume)Ordered By: Kathia Gallego on 03-07-2023 Fibrin D-dimer FEU (PPP) [Mass/Vol] 478 ng/mLFEU 0-499 [facility] Comment on above: Patient D-Dimer resu lt is negative. The Laboratory Department recommends utilization of this test only for its NEGATIVE PREDICTIVE VALUE. Negative predictive value is >95%. Specificity of positive result is <50%. Clinical correlation is essential. Glucose [Mass/volume] in Uri ne by Automated test stripOrdered By: Kathia Gallego on 03-07-2023 Glucose Auto test strip (U) [Mass/Vol] Negative Negative [facility] Hematocrit Auto (Bld) [Volum e fraction]Ordered By: Kathia Gallego on 03-07-2023 Hematocrit (Bld) [Volume fraction] 39.3 % 36.0-44.0 [facility] Hemoglobin [Mass/volume] in BloodOrdered By: Kathia Gallego on 03-07-2023 Hemoglobin (Bld) [Mass/Vol] 13.7 g/dL 12.0-15.0 [facility] Lymphocytes/100 WBC Auto (Bl d)Ordered By: Kathia Gallego on 03-07-2023 Lymphocytes/100 WBC (Bld) 46.9 % 24.0-44.0 [facility] MCH Auto (RBC) [Entitic mass ]Ordered By: Kathia Gallego on 03-07-2023 MCH (RBC) [Entitic mass] 32.8 pg 28.0-34.0 [facility] MCHC Auto (RBC) [Mass/Vol]Or dered By: Kathia Gallego on 03-07-2023 MCHC (RBC) [Mass/Vol] 35.0 g/dL 33.0-37.0 [facility] MCV (mean corpuscular volume ) determinationOrdered By: Kathia Gallego on 03-07-2023 MCV (RBC) [Entitic vol] 93.9 fL 80.0-100.0 [facility] Monocytes Auto (Bld) [#/Vol] Ordered By: Kathia Gallego on 03-07-2023 Monocytes (Bld) [#/Vol] 0.7 10*3/uL 0.20-0.70 [facility] Monocytes/100 WBC Auto (Bld) Ordered By: Kathia Gallego on 03-07-2023 Monocytes/100 WBC (Bld) 10.4 % 3.4-9.0 [facility] Neutrophils Auto (Bld) [#/Vo l]Ordered By: Kathia Gallego on 03-07-2023 Neutrophils (Bld) [#/Vol] 2.5 10*3/uL 1.83-8.70 [facility] Neutrophils/100 WBC Auto (Bl d)Ordered By: Kathia Gallego on 03-07-2023 Neutrophils/100 WBC (Bld) 40.3 % 40.0-74.0 [facility] No Panel InformationOrdered By: Kathia Gallego on 03-07-2023 Troponin I High Sensitivity < 2 pg/mL 0-15 [facility] Platelet mean volume Auto (B ld) [Entitic vol]Ordered By: Kathia Gallego on 03-07-2023 Platelet mean volume (Bld) [Entitic vol] 5.7 fL 7.4-10.4 [facility] Platelets Auto (Bld) [#/Vol] Ordered By: Kathai Gallego on 03-07-2023 Platelets (Bld) [#/Vol] 409 10*3/uL 150-450 [facility] Potassium [Moles/volume] in Serum or PlasmaOrdered By: Kathia Gallego on 03-07-2023 Potassium [Moles/Vol] 4.2 mmol/L 3.6-5.0 [facility] RBC Auto (Bld) [#/Vol]Ordere d By: Kathia Gallego on 03-07-2023 RBC (Bld) [#/Vol] 4.18 10*6/uL 4.00-4.90 [facility] Serum globulin measurement ( mass/volume)Ordered By: Kathia Gallego on 03-07-2023 Globulin (S) [Mass/Vol] 1.6 g/dL 1.9-3.9 [facility] Serum glucose measurement (m ass/volume)Ordered By: Kathia Gallego on 03-07-2023 Glucose [Mass/Vol] 95 mg/dL 70-99 [facility] Serum or plasma anion gap de termination (moles/volume)Ordered By: Kathia Gallego on 03-07-2023 Anion gap [Moles/Vol] 9 mmol/L 4-14 [facility] Serum or plasma calcium minh urement (mass/volume)Ordered By: Kathia Gallego on 03-07-2023 Calcium [Mass/Vol] 9.5 mg/dL 8.5-10.5 [facility] Serum or plasma creatinine m easurement (moles/volume)Ordered By: Kathia Gallego on 03-07-2023 Creatinine [Moles/Vol] 0.62 mg/dL 0.60-1.20 [facility] Serum or plasma sodium measu rement (moles/volume)Ordered By: Kathia Gallego on 03-07-2023 Sodium [Moles/Vol] 141 mmol/L 135-145 [facility] Serum or plasma urea nitroge n measurement (mass/volume)Ordered By: Kathia Gallego on 03-07-2023 Urea nitrogen [Mass/Vol] 9 mg/dL 7-25 [facility] Specific gravity of UrineOrd ered By: Kathia Gallego on 03-07-2023 Specific gravity (U) [Rel density] 1.008 1.001-1.035 [facility] Total protein bloodOrdered B y: Kathia Gallego on 03-07-2023 Protein [Mass/Vol] 6.0 g/dL 6.2-8.0 [facility] Urine blood detectionOrdered By: Kathia Gallego on 03-07-2023 RBC Ql (U) Negative Negative [facility] Urine colorOrdered By: Kathia Gallego on 03-07-2023 Color (U) Straw [facility] Urine ketones detectionOrder ed By: Kathia Gallego on 03-07-2023 Ketones Ql (U) Negative Negative [facility] Urine leukocytes detection b y microscopyOrdered By: Kathia Gallego on 03-07-2023 WBC Visual Ql (U) Negative Negative [facility] Urine nitrate detectionOrder ed By: Kathia Gallego on 03-07-2023 Nitrate Ql (U) Negative Negative [facility] Urine pHOrdered By: Kathia moura on 03-07-2023 pH (U) 5.0 [pH] 4.6-8.0 [facility] Urine protein detection by a utomated test stripOrdered By: Kathia Gallego on 03-07-2023 Protein Auto test strip Ql (U) Negative Negative [facility] Urobilinogen Test strip (U) [Mass/Vol]Ordered By: Kathia Gallego on 03-07-2023 Urobilinogen (U) [Mass/Vol] Negative Negative [facility] Basic metabolic 1998 panelon 03-05-2023 Anion gap [Moles/Vol] 10 mmol/L 3 - 13 mmol/L [facility] Calcium [Mass/Vol] 9.1 mg/dL 8.4 - 10. 4 mg/dL [facility] Chloride [Moles/Vol] 103 mmol/L 98 - 10 7 mmol/L [facility] CO2 [Moles/Vol] 25 mmol/L 22 - 30 mmol/L [facility] Creatinine [Mass/Vol] 0.57 mg/dL 0.52 - 1.04 mg/dL [facility] GFR/1.73 sq M.predicted MDRD (S/P/Bld) [Vol rate/Area] - PINF [facility] Comment on above: Calculation based on the Chronic Kidney Disease Epidemiology Collaboration (CKD-EPI) equation refit without adjustment for race Glucose [Mass/Vol] 114 mg/dL High 70 - 100 mg/dL [facility] Interpretation and review of laboratory results Abnormal [facility] Potassium [Moles/Vol] 3.9 mmol/L 3.5 - 5.1 mmol/L [facility] Sodium [Moles/Vol] 137 mmol/L 135 - 145 mmol/L [facility] Urea nitrogen [Mass/Vol] 14 mg/dL 7 - 17 mg/dL [facility] CBC W Auto Differential pane l (Bld)Ordered By: Adriana Aly on 03-05-2023 Basophils (Bld) [#/Vol] 0.0 10*3/uL 0.0 - 0.2 10*3/uL [facility] Basophils/100 WBC (Bld) 0.2 % 0.0 - 2.0 % [facility] Eosinophils (Bld) [#/Vol] 0.1 10*3/uL 0.0 - 0.5 10*3/uL [facility] Eosinophils/100 WBC (Bld) 1.2 % 1.0 - 6.0 % [facility] Erythrocyte distribution width (RBC) [Ratio] 12.9 % 11.5 - 14.5 % [facility] Hematocrit (Bld) [Volume fraction] 40.1 % 35.0 - 47.0 % [facility] Hemoglobin (Bld) [Mass/Vol] 14.3 g/dL 11.7 - 16.0 g/dL [facility] Interpretation and review of laboratory results Abnormal [facility] Lymphocytes (Bld) [#/Vol] 2.5 10*3/uL 1.0 - 4.3 10*3/uL [facility] Lymphocytes/100 WBC (Bld) 34.6 % 20.0 - 40.0 % [facility] MCH (RBC) [Entitic mass] 33.9 pg 26.0 - 34.[address] [facility] MCHC (RBC) [Mass/Vol] 35.6 % 32.0 - 36.0 % [facility] MCV (RBC) [Entitic vol] 95.3 fL 80.0 - 98.[address] [facility] Monocytes (Bld) [#/Vol] 0.6 10*3/uL 0.0 - 0.8 10*3/uL [facility] Monocytes/100 WBC (Bld) 7.8 % 2.0 - 10.0 % [facility] Neutrophils (Bld) [#/Vol] 4.1 10*3/uL 1.8 - 7.0 10*3/uL [facility] Neutrophils/100 WBC (Bld) 56.2 % 40.0 - 80.0 % [facility] Nucleated RBC/100 WBC (Bld) [Ratio] 0.1 % [facility] Platelet mean volume (Bld) [Entitic vol] 6.0 fL Low 7.4 - 12.[address] [facility] Platelets (Bld) [#/Vol] 446 10*3/uL High 140 - 440 10*3/uL [facility] RBC (Bld) [#/Vol] 4.21 10*6/uL 3.8 - 5.20 10*6/uL [facility] WBC (Bld) [#/Vol] 7.3 10*3/uL 3.6 - 10.7 10*3/uL [facility] Fibrin D-dimer FEU (PPP) [Ma ss/Vol]on 03-05-2023 Interpretation and review of laboratory results Normal [facility] D-Dimer values of <0.50 mg/L FEU can be used in combination with a pre-test probability model (e.g. Well's) to exclude pulmonary embolism (PE) disease, as well as an aid in the diagnosis of deep vein thrombosis (DVT). [facility] Laboratory - Chemistry and C hemistry - challengeon 03-05-2023 Troponin I.cardiac [Mass/Vol] ng/mL NINF - 0.034 ng/mL [facility] Laboratory - Coagulationon 0 03-05-2023 Fibrin D-dimer FEU (PPP) [Mass/Vol] 0.25 mg/[facility]/L [facility] No Panel Informationon 03-05 P [place] [address] [facility] CA Interval [address] [facility] QRS [place] [address] [facility] QRSD Interval 85 ms [facility] QT Interval [address] [facility] QTC Interval [address] [facility] T Wave [place] [address] [facility] Sinus rhythm Compared to ECG 09/09/2022 12:21:41 No significant changes Electronically Signed On 03-05-2023 23:01:26 EST by Lilibeth Martinez CV Lilibeth Brody D O - 03/05/2023 IMPRESSION: Sinus rhythm Compared to ECG 09/09/2022 12:21:41 No significant changes Electronically Signed On 03-05-2023 23:01:26 EST by Lilibeth Martinez [facility] Troponin I.cardiac [Mass/Vol ]on 03-05-2023 Interpretation and review of laboratory results Normal [facility] Patients with high levels of Biotin oral intake (ie >5 mg/day) may have falsely decreased Troponin levels. [facility] Vital signson 03-05-2023 Heart rate 94 /min bpm [facility] XR Chest Single viewon 03-05 No acute cardiopulmonary process. Report Dictated on Electronically Signed By: Buck Ramsay MD Electronically Signed Date/Time: 03/05/2023 5:25 PM EST [facility] RADIOLOGY SYSTEM Patient Name: DB DOAN : 1970 Exam Date/Time: 03/05/2023 17:16 Procedure: XR CHEST 1 VIEW Ordering Provider: MARTINEZ BRIGID Reason For Exam: CHEST PAIN CHEST RADIOGRAPH CLINICAL INDICATION: Chest pain TECHNIQUE: AP COMPARISON: 09/16/2022 chest radiograph FINDINGS: Cardiomediastinal: Cardiomediastinal silhouette is normal in size and configuration. Lungs: No sizable pleural effusion, focal consolidation or pneumothorax. Osseous structures: No acute osseous abnormality. [facility] Buck Ramsay MD - 03/05/2023 Patient Name: DB DOAN : 1970 Exam Date/Time: 03/05/2023 17:16 Procedure: XR CHEST 1 VIEW Ordering Provider: MARTINEZ BRIGID Reason For Exam: CHEST PAIN CHEST RADIOGRAPH CLINICAL INDICATION: Chest pain TECHNIQUE: AP COMPARISON: 09/16/2022 chest radiograph FINDINGS: Cardiomediastinal: Cardiomediastinal silhouette is normal in size and configuration. Lungs: No sizable pleural effusion, focal consolidation or pneumothorax. Osseous structures: No acute osseous abnormality. IMPRESSION: No acute cardiopulmonary process. Report Dictated on Electronically Signed By: Buck Ramsay MD Electronically Signed Date/Time: 03/05/2023 5:25 PM [facility] [employer] Radiology Study observation (narrative) [employer] XR Chest Single viewOrdered By: Buck Ramsay on 03-05-2023 [employer] Work Phone: No Panel Informationon 03-04 Radiology Study observation (narrative) [facility] XR Lumbar spine 2 or 3 Views on 03-04-2023 1. There is no fract ure of the lumbar spine or sacrum 2. Minimal degenerative disc disease at the L5-S1 level. [facility] EXAMINATION: XRAY VIEWS OF THE [...] There is no fracture of the sacrum. [facility] Wilmer Wray MD - 03/04/2023 [...] degenerative disc disease at the L5-S1 level. [facility] [employer] [facility] XR Lumbar spine 2 or 3 Views Ordered By: Wilmer Wray on 03-04-2023 [facility] Work Phone: XR Pelvis 1 or 2 Viewson No acute abnormality of the pelvis. [facility] EXAMINATION: ONE XRAY VIEW OF [...] on lumbar spine exam from same day. [facility] Siddhartha Vazquez MD - 03/04/2023 [...] IMPRESSION: No acute abnormality of the pelvis. [facility] XR Pelvis 1 or 2 ViewsOrdere d By: Siddhartha Vazquez on 03-04-2023 [facility] Work Phone: XR Shoulder - left 2 Viewson 03-04-2023 No acute abnormality . [facility] EXAMINATION: THREE XRAY VIEWS OF THE LEFT SHOULDER 03/04/2023 12:21 pm COMPARISON: None. HISTORY: ORDERING SYSTEM PROVIDED HISTORY: pain post fall TECHNOLOGIST PROVIDED HISTORY: Reason for exam:->pain post fall FINDINGS: Glenohumeral joint is normally aligned. No evidence of acute fracture or dislocation. No abnormal periarticular calcifications. The AC joint is unremarkable in appearance. Visualized lung is unremarkable. [facility] Wilmer Wray MD - 03/04/2023 [...] is unremarkable. IMPRESSION: No acute abnormality. [facility] ED.PDOCon 12-23-2022 ED.PDOC DB DOAN Female [id number] Attending provider: PRE ER ER [id number] Donald Lainez 1970 52 DOS: 12/23/22 Hx/Exam [...] CARE Additional Instructions: Pursue follow-up with orthopedist environmental communications specialist and pain management as discussed. Condition: Good Referrals: Jaime Davis [Primary Care Provider] - Dictated By: Donald Lainez DO Dictated Date/Time:12/23/22 1550 Electronically Signed Date/Time: 12/23/22 1610 [facility] Absolute lymphocyte countOrd ered By: Homer Soria on 12-21-2022 Lymphocytes Auto (Unsp spec) [#/Vol] 3.1 10*3/uL 1.10-4.80 [facility] Basophils Auto (Bld) [#/Vol] Ordered By: Homer Soria on 12-21-2022 Basophils (Bld) [#/Vol] 12.1 10*3/uL 4.5-11.0 [facility] Basophils (Bld) [#/Vol] 0.1 10*3/uL 0.00-0.20 [facility] Basophils/100 WBC Auto (Bld) Ordered By: Homer Soria on 12-21-2022 Basophils/100 WBC (Bld) 0.6 % 0.0-1.5 [facility] Eosinophils Auto (Bld) [#/Vo l]Ordered By: Homer Soria on 12-21-2022 Eosinophils (Bld) [#/Vol] 0.1 10*3/uL 0.00-0.33 [facility] Eosinophils/100 WBC Auto (Bl d)Ordered By: Homer Soria on 12-21-2022 Eosinophils/100 WBC (Bld) 0.8 % 0.0-3.0 [facility] Erythrocyte distribution wid th Auto (RBC) [Ratio]Ordered By: Homer Soria on 12-21-2022 Erythrocyte distribution width (RBC) [Ratio] 13.0 % 10.9-14.3 [facility] Hematocrit Auto (Bld) [Volum e fraction]Ordered By: Homer Soria on 12-21-2022 Hematocrit (Bld) [Volume fraction] 42.0 % 36.0-44.0 [facility] Hemoglobin [Mass/volume] in BloodOrdered By: Homer Soria on 12-21-2022 Hemoglobin (Bld) [Mass/Vol] 14.9 g/dL 12.0-15.0 [facility] Lymphocytes/100 WBC Auto (Bl d)Ordered By: Homer Soria on 12-21-2022 Lymphocytes/100 WBC (Bld) 25.7 % 24.0-44.0 [facility] MCH Auto (RBC) [Entitic mass ]Ordered By: Homer Soria on 12-21-2022 MCH (RBC) [Entitic mass] 32.8 pg 28.0-34.0 [facility] MCHC Auto (RBC) [Mass/Vol]Or dered By: Homer Soria on 12-21-2022 MCHC (RBC) [Mass/Vol] 35.4 g/dL 33.0-37.0 [facility] MCV (mean corpuscular volume ) determinationOrdered By: Homer Soria on 12-21-2022 MCV (RBC) [Entitic vol] 92.7 fL 80.0-100.0 [facility] Monocytes Auto (Bld) [#/Vol] Ordered By: Homer Soria on 12-21-2022 Monocytes (Bld) [#/Vol] 0.8 10*3/uL 0.20-0.70 [facility] Monocytes/100 WBC Auto (Bld) Ordered By: Homer Soria on 12-21-2022 Monocytes/100 WBC (Bld) 6.6 % 3.4-9.0 [facility] Neutrophils Auto (Bld) [#/Vo l]Ordered By: Homer Soria on 12-21-2022 Neutrophils (Bld) [#/Vol] 8.0 10*3/uL 1.83-8.70 [facility] Neutrophils/100 WBC Auto (Bl d)Ordered By: Homer Soria on 12-21-2022 Neutrophils/100 WBC (Bld) 66.3 % 40.0-74.0 [facility] Platelet mean volume Auto (B ld) [Entitic vol]Ordered By: Homer Soria on 12-21-2022 Platelet mean volume (Bld) [Entitic vol] 5.9 fL 7.4-10.4 [facility] Platelets Auto (Bld) [#/Vol] Ordered By: Homer Soria on 12-21-2022 Platelets (Bld) [#/Vol] 396 10*3/uL 150-450 [facility] RBC Auto (Bld) [#/Vol]Ordere d By: Homer Soria on 12-21-2022 RBC (Bld) [#/Vol] 4.53 10*6/uL 4.00-4.90 [facility] Serum or plasma C reactive p rotein measurement (mass/volume)Ordered By: Homer Soria on 12-21-2022 CRP [Mass/Vol] mg/L <9.9 [facility] MR Pelvis WO and W contrast Maryann [...] any questions regarding this interpretation, please call [phone]. If you are unable to reach us at the number above, please feel free to contact [facility] at [phone]. DIVISION OF RADIOLOGY * * *Final Report* [...] pathologic marrow replacing lesion. HIP JOINTS: Large [id number]-[id number] images precludes optimal assessment of hip joint [...] other significant findings. DIVISION OF RADIOLOGY Provider, Antonio madrid Milo - 11/15/2022 * * *Final Report* * * DATE OF EXAM: Nov 14 2022 5:09PM [facility] 0230 - MRI PELVIS ORTHO GEN WO/W [...] pathologic marrow replacing lesion. HIP JOINTS: Large [id number]-[id number]-tmfa images precludes optimal assessment of hip joint [...] any questions regarding this interpretation, please call [phone]. If you are unable to reach us at the number above, please feel free to contact [facility] at [phone]. MR Pelvis WO and W contrast IVOrdered By: Ccf Provider on 11-15-2022 XR Shoulder - left 2 Viewson 11-15-2022 No acute osseous abnormality. Report Dictated on Electronically Signed By: Ralph Lunsford MD Electronically Signed Date/Time: 11/15/2022 4:23 PM EDT [facility] RADIOLOGY SYSTEM Patient Name: DB DOAN : 1970 Exam Date/Time: 11/15/2022 16:17 Procedure: XR SHOULDER 2+ VIEWS LEFT Ordering Provider: BACON JAY Reason For Exam: fall, pain with ROM EXAMINATION: XR SHOULDER 2+ VIEWS LEFT HISTORY: fall, pain with ROM. TECHNIQUE: XR SHOULDER 2+ VIEWS LEFT COMPARISON:Radiographs of 11/09/2022 and 09/25/2022 RESULT: No acute fracture or dislocation. Glenohumeral joint is intact. Acromiohumeral humeral interval is within normal limits. Small degenerative osteophytes of the acromioclavicular joint which otherwise is grossly intact. [facility] RADIOLOG[facility] Ralph Lunsford MD - 11/15/2022 Patient Name: DB DOAN : 1970 Exam Date/Time: 11/15/2022 16:17 Procedure: XR SHOULDER 2+ VIEWS LEFT Ordering Provider: BACON JAY Reason For Exam: fall, pain with ROM EXAMINATION: XR SHOULDER 2+ VIEWS LEFT HISTORY: fall, pain with ROM. TECHNIQUE: XR SHOULDER 2+ VIEWS LEFT COMPARISON:Radiographs of 11/09/2022 and 09/25/2022 RESULT: No acute fracture or dislocation. Glenohumeral joint is intact. Acromiohumeral humeral interval is within normal limits. Small degenerative osteophytes of the acromioclavicular joint which otherwise is grossly intact. IMPRESSION: No acute osseous abnormality. Report Dictated on Electronically Signed By: Ralph Lunsford MD Electronically Signed Date/Time: 11/15/2022 4:23 PM EDT [facility] [employer] Radiology Study observation (narrative) [employer] XR Shoulder - left 2 ViewsOr dered By: Ralph Lunsford on 11-15-2022 [employer] Work Phone: MR Pelvis WO and W contrast Maryann 11-14-2022 Radiology Study observation (narrative) XR Shoulder - left 2 Viewson 11-09-2022 Mild arthritic giordano es at the AC joint. No acute process. Report Dictated on Electronically Signed By: Sandeep Medina DO Electronically Signed Date/Time: 11/09/2022 7:06 AM EDT [employer] RADIOLOGY SYSTEM Patient Name: DB DOAN : 1970 Exam Date/Time: 11/09/2022 06:49 Procedure: XR SHOULDER 2+ VIEWS LEFT Ordering Provider: GARRISON ANIS Reason For Exam: left shoulder injury LEFT SHOULDER, 3 VIEWS: INDICATION: Left shoulder pain COMPARISON: No previous studies are available for comparison. Grashey, axillary and Y views of the left shoulder were obtained. Bone density appears normal. No fracture or dislocation is noted. Mild arthritic changes are seen involving the AC joint. There are no significant soft tissue abnormalities. The left lung apex is clear. [employer] [facility] RADIOLOGY [facility] Sandeep Medina DO - 11/09/2022 Patient Name: DB DOAN : 1970 Exam Date/Time: 11/09/2022 06:49 Procedure: XR SHOULDER 2+ VIEWS LEFT Ordering Provider: GARRISON ANIS Reason For Exam: left shoulder injury LEFT SHOULDER, 3 VIEWS: INDICATION: Left shoulder pain COMPARISON: No previous studies are available for comparison. Grashey, axillary and Y views of the left shoulder were obtained. Bone density appears normal. No fracture or dislocation is noted. Mild arthritic changes are seen involving the AC joint. There are no significant soft tissue abnormalities. The left lung apex is clear. IMPRESSION: Mild arthritic changes at the AC joint. No acute process. Report Dictated on Electronically Signed By: Sandeep Medina DO Electronically Signed Date/Time: 11/09/2022 7:[address] [facility] Radiology Study observation (narrative) [facility] XR Shoulder - left 2 ViewsOr dered By: Sandeep Medina on 11-09-2022 [facility] Work Phone: BASIC METABOLIC PANELon 08-0 Anion gap [Moles/Vol] 9 mmol/L Low 10 - 20 [facility] Comment on above: Performed By: #### B MP #### [address] [address] Calcium [Mass/Vol] 8.7 mg/dL Normal 8.6 - 10.3 [facility] Comment on above: Performed By: #### B MP #### [address] [address] Chloride [Moles/Vol] 106 mmol/L Normal 98 - 107 [facility] Comment on above: Performed By: #### B MP #### [address] [address] Creatinine [Mass/Vol] 0.57 mg/dL Normal 0.50 - 1.05 [facility] Comment on above: Performed By: #### B MP #### [address] [address] eGFR FEMALE >90 Normal >90 [place]/[facility] Comment on above: Result Comment: CALC ULATIONS OF ESTIMATED GFR ARE PERFORMED USING THE 2020 CKD-EPI STUDY REFIT EQUATION WITHOUT THE RACE VARIABLE FOR THE IDMS-TRACEABLE CREATININE METHODS. https://jasn.asnjournals.org/content//ASN.181528 6703 Performed By: #### B MP #### [address] [address] Glucose [Mass/Vol] 84 mg/dL Normal 74 - 99 [facility] Comment on above: Performed By: #### B MP #### [address] [address] HCO3 (Bld) [Moles/Vol] 26 mmol/L Normal 21 - 32 [facility] Comment on above: Performed By: #### B MP #### [address] [address] Potassium [Moles/Vol] 3.4 mmol/L Low 3.5 - 5.3 [place] [facility] Comment on above: Performed By: #### B MP #### [address] [address] Sodium [Moles/Vol] 138 mmol/L Normal 136 - 145 [facility] Comment on above: Performed By: #### B MP #### [address] [address] Urea nitrogen [Mass/Vol] 6 mg/dL Normal 6 - 23 [facility] Comment on above: Performed By: #### B MP #### [address] [address] CBC AND DIFFERENTIALon 10-06 % AUTOMATED IMMATURE GRAN 0.5 % Normal 0.0 - 0.9 [facility] Comment on above: Result Comment: Anahi ture Granulocyte Count (IG) includes promyelocytes, myelocytes and metamyelocytes but does not include bands. Percent differential counts (%) should be interpreted in the context of the absolute cell counts (cells/L). Performed By: #### C BCDF #### [address] [address] Basophils (Bld) [#/Vol] 0.03 10*3/uL Normal 0.00 - 0.10 [facility] Comment on above: Performed By: #### C BCDF #### [address] [address] Basophils/100 WBC (Bld) 0.3 % Normal 0.0 - 2.0 [facility] Comment on above: Performed By: #### C BCDF #### [address] [address] Eosinophils (Bld) [#/Vol] 0.04 10*3/uL Normal 0.00 - 0.70 [facility] Comment on above: Performed By: #### C BCDF #### [address] [address] Eosinophils/100 WBC (Bld) 0.4 % Normal 0.0 - 6.0 [facility] Comment on above: Performed By: #### C BCDF #### [address] [address] Erythrocyte distribution width (RBC) [Ratio] 12.9 % Normal 11.5 - 14.5 [facility] Comment on above: Performed By: #### C BCDF #### [address] [address] Hematocrit (Bld) [Volume fraction] 39.2 % Normal 36.0 - 46.0 [facility] Comment on above: Performed By: #### C BCDF #### [address] [address] Hemoglobin (Bld) [Mass/Vol] 13.7 g/dL Normal 12.0 - 16.0 [facility] Comment on above: Performed By: #### C BCDF #### [address] [address] Lymphocytes (Bld) [#/Vol] 2.20 10*3/uL Normal 1.20 - 4.80 [facility] Comment on above: Performed By: #### C BCDF #### [address] [address] Lymphocytes/100 WBC (Bld) 23.9 % Normal 13.0 - 44.0 [facility] Comment on above: Performed By: #### C BCDF #### [address] [address] MCHC (RBC) [Mass/Vol] 34.9 g/dL Normal 32.0 - 36.0 [facility] Comment on above: Performed By: #### C BCDF #### [address] [address] MCV (RBC) [Entitic vol] 95 fL Normal 80 - 100 [facility] Comment on above: Performed By: #### C BCDF #### [address] [address] Monocytes (Bld) [#/Vol] 0.59 10*3/uL Normal 0.10 - 1.00 [facility] Comment on above: Performed By: #### C BCDF #### [address] [address] Monocytes/100 WBC (Bld) 6.4 % Normal 2.0 - 10.0 [facility] Comment on above: Performed By: #### C BCDF #### [address] [address] Neutrophils (Bld) [#/Vol] 6.31 10*3/uL Normal 1.20 - 7.70 [facility] Comment on above: Performed By: #### C BCDF #### [address] [address] Neutrophils/100 WBC (Bld) 68.5 % Normal 40.0 - 80.0 [facility] Comment on above: Performed By: #### C BCDF #### [address] [address] Platelets (Bld) [#/Vol] 350 10*3/uL Normal 150 - 450 [facility] Comment on above: Performed By: #### C BCDF #### [address] [address] RBC 4.13 x10E12/L Normal 4.00 - 5.20 [place]/[facility] Comment on above: Performed By: #### C BCDF #### [address] [address] WBC (Bld) [#/Vol] 9.2 10*3/uL Normal 4.4 - 11.3 [facility] Comment on above: Performed By: #### C BCDF #### [address] [address] CREATINE KINASEon 10-06-2022 CK [Catalytic activity/Vol] 46 U/L Normal 0 - 215 [facility] Comment on above: Performed By: #### C K #### [address] [address] HEPATIC FUNCTION PANELon Albumin [Mass/Vol] 3.8 g/dL Normal 3.4 - 5.0 [facility] Comment on above: Performed By: #### H EPFP #### [address] [address] ALP [Catalytic activity/Vol] 39 U/L Normal 33 - 110 [facility] Comment on above: Performed By: #### H EPFP #### [address] [address] ALT [Catalytic activity/Vol] 13 U/L Normal 7 - 45 [facility] Comment on above: Result Comment: Risa ents treated with Sulfasalazine may generate falsely decreased results for ALT. Performed By: #### H EPFP #### [address] [address] AST [Catalytic activity/Vol] 15 U/L Normal 9 - 39 [facility] Comment on above: Performed By: #### H EPFP #### [address] [address] Bilirubin [Mass/Vol] 0.5 mg/dL Normal 0.0 - 1.2 [facility] [facility] Comment on above: Performed By: #### H EPFP #### [place] [address] Bilirubin.indirect [Mass/Vol] 0.1 mg/dL Normal 0.0 - 0.3 [place]/[facility] Comment on above: Performed By: #### H EPFP #### [place] [address] Protein [Mass/Vol] 5.5 g/dL Low 6.4 - 8.2 [place]/[facility] Comment on above: Performed By: #### H EPFP #### [place] [address] TSHon 10-06-2022 TSH Qn 0.43 m[IU]/L Low 0.44 - 3.98 [place]/[facility] Comment on above: Result Comment: TSH testing is performed using different testing methodology at [facility] than at other [facility]. Direct result comparisons should only be made within the same method. Performed By: #### B MP #### [place] [address] Triage - EDon 10-06-2022 Triage - ED [...] BMI (kg/m2): 21.255 Calculated BSA (m2) 1.70 [place] Coma Scale: Best Eye Response: (E4) spontaneous Best Motor Response: (M6) obeys commands Best Verbal Response: (V5) oriented [place] Score: 15 Allergies: no Patient has homicidal [...] Medical History Reviewedyes Electronic Signatures: Lourdes Espinosa (NIK) (Signed 06-Oct-2022 15:31) Entered: Risk Screens, Pain, Travel History, Chart Review, Scores, Past Medical History Authored: Quick Triage, Risk Screens, Pain, Travel History, Chart Review, Scores, Past Medical History Parker Talamantes) (Signed 06-Oct-2022 18:48) Authored: Quick Triage, Chart Review Last Updated: 06-Oct-2022 18:48 by Parker Talamantes (RN) Normal [place]/Tayo [facility] URINALYSIS WITH CULTURE IF I NDICATEDon 10-06-2022 Appearance (U) Clear Normal CLEAR Rouse/P diomedes [facility] Comment on above: Performed By: #### U ARFX #### [address] [address] Bilirubin Ql (U) Negative Normal NEGATIVE [place] /Tayo [facility] Comment on above: Performed By: #### U ARFX #### [address] [address] Color (U) Straw Normal STRAW,YELLOW Rouse/Por ta [facility] Comment on above: Performed By: #### U ARFX #### [address] [address] Glucose Ql (U) Negative Normal NEGATIVE Rouse/P diomedes [facility] Comment on above: Performed By: #### U ARFX #### [address] [address] Hemoglobin Ql (U) Negative Normal NEGATIVE [place] n/Tayo [facility] Comment on above: Performed By: #### U ARFX #### [address] [address] Ketones Ql (U) 20(1+) Abnormal NEGATIVE Rouse/P diomedes [facility] Comment on above: Performed By: #### U ARFX #### [address] [address] Leukocyte esterase Test strip Ql (U) Negative Normal NEGATIVE Rouse/Tayo [facility] Comment on above: Performed By: #### U ARFX #### [address] [address] Nitrite Ql (U) Negative Normal NEGATIVE Rouse/P diomedes [facility] Comment on above: Performed By: #### U ARFX #### [address] [address] pH (U) 6.0 [pH] Normal 5.0 - 8.0 [facility]/Tayo [facility] Comment on above: Performed By: #### U ARFX #### [address] [address] Protein Ql (U) Negative Normal NEGATIVE [facility] Comment on above: Performed By: #### U ARFX #### [address] [address] Specific gravity (U) [Rel density] 1.008 Normal 1.005 - 1.035 [facility] Comment on above: Performed By: #### U ARFX #### [address] [address] Urobilinogen (U) [Mass/Vol] mg/dL Normal 0.0 - 1.9 [facility] Comment on above: Performed By: #### U ARFX #### [address] [address] VENOUS FULL PANELon 10-07-19 Anion gap [Moles/Vol] 11 mmol/L Normal 10 - 25 [facility] Comment on above: Performed By: #### H EPFP #### [address] [address] BASE EXCESS-BLOOD 1.2 mmol/L Normal -2.0 - 3.0 [facility] Comment on above: Performed By: #### H EPFP #### [address] [address] BICARB, CALCULATED 26.0 mmol/L Normal 22.0 - 26.0 [facility] Comment on above: Performed By: #### H EPFP #### [address] [address] CALCIUM,IONIZED 1.19 mmol/L Normal 1.10 - 1.33 [facility] Comment on above: Performed By: #### H EPFP #### [address] [address] Chloride [Moles/Vol] 105 mmol/L Normal 98 - 107 [facility] Comment on above: Performed By: #### H EPFP #### [address] [address] Glucose [Mass/Vol] 86 mg/dL Normal 74 - 99 [facility] Comment on above: Performed By: #### H EPFP #### [address] [address] Hematocrit (Bld) [Volume fraction] 39.0 % Normal 36.0 - 46.0 [facility] Comment on above: Performed By: #### H EPFP #### [address] [address] Hemoglobin (Bld) [Mass/Vol] 12.9 g/dL Normal 12.0 - 16.0 [facility] Comment on above: Performed By: #### H EPFP #### [address] [address] Lactate [Moles/Vol] 0.7 mmol/L Normal 0.4 - 2.0 [facility] Comment on above: Performed By: #### H EPFP #### [address] [address] OXY HGB 84.2 % High 45.0 - 75.0 [facility] Comment on above: Performed By: #### H EPFP #### [address] [address] Oxygen (Bld) [Partial pressure] 53 mm[Hg] High 35 - 45 [facility] Comment on above: Performed By: #### H EPFP #### [address] [address] PATIENT TEMPERATURE 37.0 degrees C Normal R [facility] Comment on above: Result Comment: NOTE : PATIENT RESULTS ARE NOT CORRECTED FOR TEMPERATURE. Performed By: #### H EPFP #### [address] [address] PCO2 41 mmHg Normal 41 - 51 [facility] Comment on above: Performed By: #### H EPFP #### [address] [address] pH (Bld) 7.41 [pH] Normal 7.33 - 7.43 [facility] Comment on above: Performed By: #### H EPFP #### [address] [address] Potassium [Moles/Vol] 3.6 mmol/L Normal 3.5 - 5.3 [place] Comment on above: Performed By: #### H EPFP #### [address] [address] SO2 88 % High 45 - 75 [facility] Comment on above: Performed By: #### H EPFP #### [address] [id number] Sodium [Moles/Vol] 138 mmol/L Normal 136 - 145 [place] [facility] Comment on above: Performed By: #### H EPFP #### [address] [address] [address] Head WO contraston [address] evidence of ac jennifer intracranial abnormality. Report Dictated on Electronically Signed By: Ale Cordero MD Electronically Signed Date/Time: 09/26/2022 3:48 PM [facility] Patient Name: DB DOAN : 1970 [facility]#: [id number] Exam Date/Time: 09/26/2022 15:33 Procedure: CT HEAD WO IV CONTRAST Ordering Provider: ROSADO KEVIN Reason For Exam: Head trauma, abnormal mental status (Age 18-64y) EXAMINATION: CT head TECHNIQUE: Axial CT images of the head were obtained without IV contrast at 3 mm intervals. Coronal and sagittal reconstructions were also provided. Dose reduction was employed with automated exposure control. INDICATION: Head trauma, abnormal mental status (Age 18-64y) Findings: The ventricles, sulci and cisterns are grossly normal in size and configuration. The boogie-white differentiation is grossly intact. There are no extra-axial fluid collections or acute intracranial hemorrhage appreciated. There is no midline shift identified. The posterior fossa is grossly unremarkable. Small air-fluid level is present within the sphenoid sinus. Otherwise, the paranasal sinuses and mastoid air cells are grossly clear. The bones are grossly unremarkable. [facility] Ael Cordero MD - 09/26/2022 Patient Name: DB DOAN : 1970 Exam Date/Time: 09/26/2022 15:33 Procedure: CT HEAD WO IV CONTRAST Ordering Provider: ROSADO KEVIN Reason For Exam: Head trauma, abnormal mental status (Age 18-64y) EXAMINATION: CT head TECHNIQUE: Axial CT images of the head were obtained without IV contrast at 3 mm intervals. Coronal and sagittal reconstructions were also provided. Dose reduction was employed with automated exposure control. INDICATION: Head trauma, abnormal mental status (Age 18-64y) Findings: The ventricles, sulci and cisterns are grossly normal in size and configuration. The boogie-white differentiation is grossly intact. There are no extra-axial fluid collections or acute intracranial hemorrhage appreciated. There is no midline shift identified. The posterior fossa is grossly unremarkable. Small air-fluid level is present within the sphenoid sinus. Otherwise, the paranasal sinuses and mastoid air cells are grossly clear. The bones are grossly unremarkable. IMPRESSION: No CT evidence of acute intracranial abnormality. Report Dictated on Electronically Signed By: Ale Cordero MD Electronically Signed Date/Time: 09/26/2022 3:[address] [facility] Radiology Study observation (narrative) [facility] CT Head WO contrastOrdered B y: Ale Cordero on 09-26-2022 [facility] [employer] Work Phone: XR Chest 2 Viewson 3 No focal consolidati on or pulmonary edema. Report Dictated on Electronically Signed By: Matt Maya MD Electronically Signed Date/Time: 09/16/2022 2:33 PM EDT [facility] Patient Name: DB DOAN : 1970 Exam Date/Time: 09/16/2022 14:36 Procedure: XR CHEST 2 VIEWS Ordering Provider: LAY DANIEL Reason For Exam: cough, supraclavicular lymphadenopathy CHEST: CLINICAL INDICATION: cough, supraclavicular lymphadenopathy TECHNIQUE: PA and Lateral COMPARISON: None FINDINGS: No focal consolidation or pulmonary edema. No pleural effusions or pneumothorax. The cardiac and mediastinal silhouettes are normal. Degenerative change of the thoracic spine is noted. [facility] Matt Maya MD - 09/16/2022 Patient Name: DB DOAN : 1970 Exam Date/Time: 09/16/2022 14:36 Procedure: XR CHEST 2 VIEWS Ordering Provider: LAY DANIEL Reason For Exam: cough, supraclavicular lymphadenopathy CHEST: CLINICAL INDICATION: cough, supraclavicular lymphadenopathy TECHNIQUE: PA and Lateral COMPARISON: None FINDINGS: No focal consolidation or pulmonary edema. No pleural effusions or pneumothorax. The cardiac and mediastinal silhouettes are normal. Degenerative change of the thoracic spine is noted. IMPRESSION: No focal consolidation or pulmonary edema. Report Dictated on Electronically Signed By: Matt Maya MD Electronically Signed Date/Time: 09/16/2022 2:[address] [facility] Radiology Study observation (narrative) [facility] XR Chest 2 ViewsOrdered By: Matt Maya on 09-16-2022 [facility] [employer] Work Phone: XR Knee - right 3 Viewson No fracture or dislocation of the right knee is identified. Slight osteoarthritis of the right knee. Report Dictated on Electronically Signed By: Paulino Mancilla MD Electronically Signed Date/Time: 09/13/2022 4:56 PM EDT [facility] Patient Name: DB DOAN : 1970 Exam Date/Time: 09/13/2022 16:42 Procedure: XR KNEE 3 VIEWS RIGHT Ordering Provider: CARDONA JESSE Reason For Exam: Blunt injury RIGHT KNEE CLINICAL INDICATION: Pain AP, lateral, and tunnel plain film views of the right knee were obtained. COMPARISON: None FINDINGS: No fracture or dislocation of the right knee is identified. Joint spaces are relatively well-preserved. There is slight degenerative spurring. No joint effusion is seen on the lateral view. There is no abnormal soft tissue swelling or radiopaque foreign body. [facility] Paulino Mancilla MD - 09/13/2022 Patient Name: DB DOAN : 1970 Exam Date/Time: 09/13/2022 16:42 Procedure: XR KNEE 3 VIEWS RIGHT Ordering Provider: CARDONA JESSE Reason For Exam: Blunt injury RIGHT KNEE CLINICAL INDICATION: Pain AP, lateral, and tunnel plain film views of the right knee were obtained. COMPARISON: None FINDINGS: No fracture or dislocation of the right knee is identified. Joint spaces are relatively well-preserved. There is slight degenerative spurring. No joint effusion is seen on the lateral view. There is no abnormal soft tissue swelling or radiopaque foreign body. IMPRESSION: No fracture or dislocation of the right knee is identified. Slight osteoarthritis of the right knee. Report Dictated on Electronically Signed By: Paulino Mancilla MD Electronically Signed Date/Time: 09/13/2022 4:[address] [facility] Radiology Study observation (narrative) [facility] [employer] XR Knee - right 3 ViewsOrder ed By: Paulino Mancilla on 09-13-2022 [employer] Work Phone: CBC W Auto Differential pane l (Bld)Ordered By: Kristyn Doss on 09-09-2022 Basophils (Bld) [#/Vol] 0.0 10*3/uL 0.0 - 0.2 10*3/uL [facility] [employer] Basophils/100 WBC (Bld) 0.3 % 0.0 - 2.0 % [facility] Eosinophils (Bld) [#/Vol] 0.1 10*3/uL 0.0 - 0.5 10*3/uL [facility] Eosinophils/100 WBC (Bld) 0.4 % Low 1.0 - 6.0 % [facility] Erythrocyte distribution width (RBC) [Ratio] 14.5 % 11.5 - 14.5 % [facility] Hematocrit (Bld) [Volume fraction] 43.9 % 35.0 - 47.0 % [facility] Hemoglobin (Bld) [Mass/Vol] 15.0 g/dL 11.7 - 16.0 g/dL [facility] Interpretation and review of laboratory results Abnormal [facility] Lymphocytes (Bld) [#/Vol] 3.4 10*3/uL 1.0 - 4.3 10*3/uL [facility] Lymphocytes/100 WBC (Bld) 25.1 % 20.0 - 40.0 % [facility] MCH (RBC) [Entitic mass] 32.4 pg 26.0 - 34.[address] [facility] MCHC (RBC) [Mass/Vol] 34.3 % 32.0 - 36.0 % [facility] MCV (RBC) [Entitic vol] 94.7 fL 80.0 - 98.[address] [facility] Monocytes (Bld) [#/Vol] 0.8 10*3/uL 0.0 - 0.8 10*3/uL [facility] Monocytes/100 WBC (Bld) 6.2 % 2.0 - 10.0 % [facility] Neutrophils (Bld) [#/Vol] 9.2 10*3/uL High 1.8 - 7.0 10*3/uL [facility] Neutrophils/100 WBC (Bld) 68.0 % 40.0 - 80.0 % [facility] Nucleated RBC/100 WBC (Bld) [Ratio] 0.0 % [facility] Platelet mean volume (Bld) [Entitic vol] 6.0 fL Low 7.4 - 12.[address] [facility] Platelets (Bld) [#/Vol] 451 10*3/uL High 140 - 440 10*3/uL [facility] RBC (Bld) [#/Vol] 4.63 10*6/uL 3.8 - 5.20 10*6/uL [facility] WBC (Bld) [#/Vol] 13.6 10*3/uL High 3.6 - 10.7 10*3/uL [facility] CRP [Mass/Vol]on 09-09-2022 Interpretation and review of laboratory results Normal [facility] Comprehensive metabolic 1998 panelon 09-09-2022 Albumin [Mass/Vol] 4.6 g/dL 3.5 - 5.0 g/dL [facility] ALP [Catalytic activity/Vol] 43 U/L 38 - 126 U/L [facility] ALT [Catalytic activity/Vol] 27 U/L 0 - 34 U/L [facility] Anion gap [Moles/Vol] 8 mmol/L 3 - 13 mmol/L [facility] AST [Catalytic activity/Vol] 25 U/L 15 - 46 U/L [facility] Bilirubin [Mass/Vol] 0.5 mg/dL 0.2 - 1 .3 mg/dL [facility] Calcium [Mass/Vol] 9.0 mg/dL 8.4 - 10. 4 mg/dL [facility] Chloride [Moles/Vol] 101 mmol/L 98 - 10 7 mmol/L [facility] CO2 [Moles/Vol] 27 mmol/L 22 - 30 mmol/L [facility] Creatinine [Mass/Vol] 0.76 mg/dL 0.52 - 1.04 mg/dL [facility] GFR/1.73 sq M.predicted MDRD (S/P/Bld) [Vol rate/Area] - PINF [facility] Comment on above: Calculation based on the Chronic Kidney Disease Epidemiology Collaboration (CKD-EPI) equation refit without adjustment for race Glucose [Mass/Vol] 105 mg/dL High 70 - 100 mg/dL [facility] Interpretation and review of laboratory results Abnormal [facility] Potassium [Moles/Vol] 4.2 mmol/L 3.5 - 5.1 mmol/L [facility] Protein [Mass/Vol] 7.4 g/dL 6.3 - 8.2 g/dL [facility] Sodium [Moles/Vol] 136 mmol/L 135 - 145 mmol/L [facility] Urea nitrogen [Mass/Vol] 13 mg/dL 7 - 17 mg/dL [facility] ESR (Bld) [Velocity]on 09-09 Interpretation and review of laboratory results Normal [facility] - Chemistry and C hemistry - challengeon 09-09-2022 CRP [Mass/Vol] mg/L NINF - 10.0 mg/L [facility] - Hematology and Cell countson 09-09-2022 ESR (Bld) [Velocity] 2 mm/h [employer] No Panel Informationon 09-09 [employer] Sinus rhythm Probable left atrial enlargement No ST segment elevations Electronically Signed On 09-09-2022 15:09:09 EDT by Bello Harris CV Bello Dupont MD - 09/09/2022 IMPRESSION: Sinus rhythm Probable left atrial enlargement No ST segment elevations Electronically Signed On 09-09-2022 15:09:09 EDT by Bello Harris [employer] No Panel InformationOrdered By: Bello Harris on 09-09-2022 P [place] 81 degrees [employer] Work Phone: CA Interval 144 ms [employer] Work Phone: QRS [place] 40 degrees [employer] Work Phone: QRSD Interval 88 ms [employer] Work Phone: QT Interval 361 ms [employer] Work Phone: QTC Interval 439 ms [employer] Work Phone: T Wave [place] 47 degrees [employer] Work Phone: [employer] Work Phone: Vital signsOrdered By: Bello Harris on 09-09-2022 Heart rate 89 /min bpm [employer] Work Phone: XR Pelvis 1 or 2 Viewson No acute osseous abnormality. Report Dictated on Electronically Signed By: Destiny Engel Electronically Signed Date/Time: 09/09/2022 1:39 PM EDT [facility] Patient Name: DB DOAN : 1970 Exam Date/Time: 09/09/2022 13:21 Procedure: XR PELVIS 1-2 VIEWS Ordering Provider: HURT CONNOR Reason For Exam: hip pain after fall PELVIS: CLINICAL INDICATION: hip pain after fall TECHNIQUE: AP COMPARISON: None. FINDINGS: There is no evidence for acute fracture or dislocation. No significant hip joint DJD. Mild right sacroiliac joint DJD. Mild degenerative change of the lower lumbar spine. No worrisome osseous lesion is identified. Calcified pelvic phleboliths. [facility] Destiny Engel M D - 09/09/2022 Patient Name: DB DOAN : 1970 Exam Date/Time: 09/09/2022 13:21 Procedure: XR PELVIS 1-2 VIEWS Ordering Provider: HURT CONNOR Reason For Exam: hip pain after fall PELVIS: CLINICAL INDICATION: hip pain after fall TECHNIQUE: AP COMPARISON: None. FINDINGS: There is no evidence for acute fracture or dislocation. No significant hip joint DJD. Mild right sacroiliac joint DJD. Mild degenerative change of the lower lumbar spine. No worrisome osseous lesion is identified. Calcified pelvic phleboliths. IMPRESSION: No acute osseous abnormality. Report Dictated on Electronically Signed By: Destiny Engel Electronically Signed Date/Time: 09/09/2022 1:39 PM EDT [employer] Radiology Study observation (narrative) [employer] XR Pelvis 1 or 2 ViewsOrdere d By: Destiny Engel on 09-09-2022 [employer] Work Phone: XR Lumbar spine 2 or 3 Views on 09-04-2022 Negative examination of the lumbar spine. Report Dictated on Electronically Signed By: Sandeep Medina Electronically Signed Date/Time: 09/04/2022 3:49 PM EDT [facility] Patient Name: DB DOAN : 1970 Exam Date/Time: 09/04/2022 15:43 Procedure: XR LUMBAR SPINE 2-3 VIEWS Ordering Provider: FLORES RACHEL Reason For Exam: fall back pain LUMBAR SPINE, AP & LATERAL VIEWS: INDICATION: Back pain, fall COMPARISON: None Frontal, lateral and coned-down lumbosacral spot views of the lumbar spine were obtained. The bone mineral density is normal. There are 5 lumbar type vertebrae. The vertebral body heights are within normal limits. The disc spaces are well preserved. No subluxations or fractures are noted. [facility] Sandeep Medina DO - 09/04/2022 Patient Name: DB DOAN : 1970 Exam Date/Time: 09/04/2022 15:43 Procedure: XR LUMBAR SPINE 2-3 VIEWS Ordering Provider: FLORES RACHEL Reason For Exam: fall back pain LUMBAR SPINE, AP & LATERAL VIEWS: INDICATION: Back pain, fall COMPARISON: None Frontal, lateral and coned-down lumbosacral spot views of the lumbar spine were obtained. The bone mineral density is normal. There are 5 lumbar type vertebrae. The vertebral body heights are within normal limits. The disc spaces are well preserved. No subluxations or fractures are noted. IMPRESSION: Negative examination of the lumbar spine. Report Dictated on Electronically Signed By: Sandeep Medina Electronically Signed Date/Time: 09/04/2022 3:[address] [facility] Radiology Study observation (narrative) [employer] XR Lumbar spine 2 or 3 Views Ordered By: Sandeep Medina on 09-04-2022 [employer] Work Phone: XR Sacrum and Coccyx 2 Views on 09-04-2022 No significant radiographic abnormality. Report Dictated on Electronically Signed By: Sandeep Medina Electronically Signed Date/Time: 09/04/2022 4:01 PM EDT [facility] Patient Name: DB DOAN : 1970 Exam Date/Time: 09/04/2022 15:43 Procedure: XR SACRUM COCCYX 2+ VIEWS Ordering Provider: FLORES RACHEL Reason For Exam: fall back pain SACRUM & COCCYX: INDICATION: Fall, back pain COMPARISON: No previous studies are available for comparison. AP and lateral views demonstrate no evidence of acute fracture. No gross abnormality of the sacroiliac joints is seen. The sacral neural foramina appear to be grossly intact. [facility] Sandeep MedinaDO - 09/04/2022 Patient Name: DB DOAN : 1970 Exam Date/Time: 09/04/2022 15:43 Procedure: XR SACRUM COCCYX 2+ VIEWS Ordering Provider: FLORES RACHEL Reason For Exam: fall back pain SACRUM & COCCYX: INDICATION: Fall, back pain COMPARISON: No previous studies are available for comparison. AP and lateral views demonstrate no evidence of acute fracture. No gross abnormality of the sacroiliac joints is seen. The sacral neural foramina appear to be grossly intact. IMPRESSION: No significant radiographic abnormality. Report Dictated on Electronically Signed By: Sandeep Medina Electronically Signed Date/Time: 09/04/2022 4:01 PM EDT [facility] Radiology Study observation (narrative) [facility] XR Thoracic spine 3 Viewson 09-04-2022 No significant radiographic abnormality. Report Dictated on Electronically Signed By: Sandeep Medina Electronically Signed Date/Time: 09/04/2022 4:02 PM EDT [facility] Patient Name: DB DOAN : 1970 Exam Date/Time: 09/04/2022 15:43 Procedure: XR THORACIC SPINE 3 VIEWS Ordering Provider: FLORES RACHEL Reason For Exam: fall backpain THORACIC SPINE: INDICATION: Fall, back pain COMPARISON: No previous studies are available for comparison. AP, swimmers and lateral views of the thoracic spine demonstrate no evidence of acute fracture or subluxation. The intervertebral discs are well maintained. The bone mineral density is normal. The pedicles are intact. There is no paraspinal mass. [facility] Sandeep MedinaDO - 09/04/2022 Patient Name: DB DOAN : 1970 Exam Date/Time: 09/04/2022 15:43 Procedure: XR THORACIC SPINE 3 VIEWS Ordering Provider: FLORES RACHEL Reason For Exam: fall backpain THORACIC SPINE: INDICATION: Fall, back pain COMPARISON: No previous studies are available for comparison. AP, swimmers and lateral views of the thoracic spine demonstrate no evidence of acute fracture or subluxation. The intervertebral discs are well maintained. The bone mineral density is normal. The pedicles are intact. There is no paraspinal mass. IMPRESSION: No significant radiographic abnormality. Report Dictated on Electronically Signed By: Sandeep Medina Electronically Signed Date/Time: 09/04/2022 4:02 PM EDT [facility] Radiology Study observation (narrative) [facility] Provider Note - ED v3on 07-0 Provider [...] different ERs she has been seen at [facility] on August 28 also on the also seen at [facility] on the and back to [place] on the then [facility] on the also seen at [facility] on the [place] on the also seen in the ED at [facility] on the also seen on 09 August at [facility]. Patient has been witnessed by me [...] HIV; latex (more content not included)... Normal [facility] Risk Screen - Adult Emergenc yon 09-03-2022 [...] instruction; written material Cultural Considerationsnone Developmental Considerationsnone Muslim Considerationsnone Learning Assessment (Other Learner): Learning Assessment (Other Learner): Other learner availableno Pressure Injury/TB/Substance: Pressure Injury: Do you have a coughno Smoking Statusnever smoker Alcohol Usedenies Drug Usedenies Admission Risk Screen: Significant IndicatorsComplete CAGE: CAGE: Is this an injured patient at a Trauma Center [place] no Electronic Signatures: Daksha Call (RN) (Signed 03-Sep-2022 14:32) Authored: Preferred Language, Patient Preferred Pharmacy, Advanced Directives, Family Violence Adult, Learning Assessment (Patient), Learning Assessment (Other Learner), Pressure Injury/TB/Substance, Pressure Injury, CAGE Last Updated: 03-Sep-2022 14:32 by Daksha Call (RN) Normal [facility] Triage - EDon 09-03-2022 Triage - ED [...] BMI (kg/m2): 22.464 Calculated BSA (m2) 1.75 Mary Coma Scale: Best Eye Response: (E4) spontaneous Best Motor Response: (M6) obeys commands Best Verbal Response: (V5) oriented [place] Score: 15 Patient has homicidal thoughts: no [...] Past Medical History Reviewedyes Electronic Signatures: Purnima Heredia (NIK) (Signed 03-Sep-2022 12:33) Entered: Risk Screens, Pain, ABCD, Travel History, Chart Review, Scores, Past Medical History Authored: Quick Triage, Risk Screens, Pain, ABCD, Travel History, Chart Review, Scores, Past Medical History Last Updated: 03-Sep-2022 12:33 by Purnima Heredia (NIK) Normal [facility] HCG,URINEon 08-07-2022 Beta HCG ( test) Ql (U) Negative Normal Negative [facility] Comment on above: Performed By: #### H U #### [facility] [address] [place] [address] Provider Note - ED v3on Provider Note - ED v3 Provider Note: Chart Review: HISTORY OF PRESENTING ILLNESS DB is a 52 year old Female and was seen by me at 07-Aug-2022 12:38 for a chief complaint of (left hip/back pain radiating to leg) . Other complaints include: increased pain after walking at concert in [place] last night. 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 Normal [place] Triage - EDon 08-07-2022 Triage - ED [...] increased pain after walking at concert in [place] last night. Triage Date/Time: 07-Aug-2022 11:57 EDNA: 4 Pain Rating (0-10): 10 = Severe Pain location: left back Vital Signs: Temperature: 98.7F ( 37.0C) taken temporal Blood Pressure: 133/82 Mean: Heart Rate: 89 Respiratory Rate: 18 Pulse Oximetry: 99% Height: 5 feet 7.00 inches. 170.1 CM Weight: 141.0 pounds. Calculated 64.0 kg. (scale measurement) Calculated BMI (kg/m2): 22.119 Calculated BSA (m2) 1.74 [place] Coma Scale: Best Eye Response: (E4) spontaneous Best Motor Response: (M6) obeys commands Best Verbal Response: (V5) oriented [place] Score: 15 Cough lasting greater than 3 [...] Past Medical History Reviewedno Electronic Signatures: Anjana Yanez) (Signed 07-Aug-2022 12:01) Entered: Risk Screens, Pain, Travel History, Chart Review, Past Medical History Authored: Quick Triage, Risk Screens, Pain, Travel History, Chart Review, Past Medical History Last Updated: 07-Aug-2022 12:01 by Anjana Yanez (RN) Normal [place] Triage - ED Pedson 3 Triage - ED Peds This report has been cancelled. Normal [place] URINALYSISon 08-07-2022 Appearance (U) CLEAR Normal CLEAR [place]/P diomedes [facility] Comment on above: Performed By: #### B MP #### [address] [address] Bilirubin Ql (U) Negative Normal NEGATIVE [place] /[place] Comment on above: Performed By: #### B MP #### [address] [address] Color (U) YELLOW Normal STRAW,YELLOW [place]/Por ta [facility] Comment on above: Performed By: #### B MP #### [address] [address] Glucose Ql (U) Negative Normal NEGATIVE [place]/P diomedes [facility] Comment on above: Performed By: #### B MP #### [address] [address] Hemoglobin Ql (U) Negative Normal NEGATIVE [place] Comment on above: Performed By: #### B MP #### [address] [address] Ketones Ql (U) Negative Normal NEGATIVE [place]/P diomedes [facility] Comment on above: Performed By: #### B MP #### [address] [address] Leukocyte esterase Test strip Ql (U) Negative Normal NEGATIVE [place] Comment on above: Performed By: #### B MP #### [address] [address] Nitrite Ql (U) Negative Normal NEGATIVE [place]/P diomedes [facility] Comment on above: Performed By: #### B MP #### [address] [address] pH (U) 7.0 [pH] Normal 5.0 - 8.0 [facility] Comment on above: Performed By: #### B MP #### [address] [address] Protein Ql (U) Negative Normal NEGATIVE [facility] Comment on above: Performed By: #### B MP #### [address] [address] Specific gravity (U) [Rel density] 1.010 Normal 1.005 - 1.035 [facility] Comment on above: Performed By: #### B MP #### [address] [address] Urobilinogen (U) [Mass/Vol] mg/dL Normal 0.0 - 1.9 [facility] Comment on above: Performed By: #### B MP #### [address] [address] HIP, BILATERAL W/PELVIS WHEN PERFORMED 3-4 VIEWSon 08-04-2022 HIP, BILATERAL W/PELVIS WHEN PERFORMED 3-4 VIEWS Patient Name: DB DOAN STUDY: HIP, BILATERAL W/PELVIS WHEN PERFORMED 3-4 VIEWS; ; 08/04/2022 10:17 am INDICATION: fall, injury, pain . COMPARISON: CT abdomen pelvis dated 06/02/2022. ACCESSION NUMBER(S): [id number] ORDERING CLINICIAN: EUGENE THOMAS FINDINGS: AP pelvis and two views of the bilateral hips. No acute fracture or dislocation. Hip joints are well maintained. Overlapping soft tissues are unremarkable. IMPRESSION: No acute osseous abnormality of the bilateral hips/pelvis. Electronically signed by: BRANDY GAINES MD Normal [facility] Provider Note - ED v3on 06-0 Provider Note - ED v3 Provider Note: [...] Hips Bilatera (more content not included)... Normal [place]/Tayo [facility] Triage - EDon 08-04-2022 Triage - ED [...] Accompanied By: self Language: Spoken Language Preferred: Montenegrin Reading Language Preferred: Montenegrin CHIEF COMPLAINT DB DOAN is a Female [...] BMI (kg/m2): 21.773 Calculated BSA (m2) 1.73 [place] Coma Scale: Best Eye Response: (E4) spontaneous Best Motor Response: (M6) obeys commands Best Verbal Response: (V5) oriented [place] Score: 15 Cough lasting greater than 3 [...] Last Updated: 04-Aug-2022 09:25 by Karla Lin) [facility] Provider Note - ED v3on 05 Provider Note - ED v3 Provider Note: [...] she was evaluated at an ED in [place] yesterday. Reports to having an appointment with [...] OF FLUI (more content not included)... Normal [place]/[facility] Triage - EDon 07-02-2022 Triage - ED [...] Updated: 02-Jul-2022 11:05 by Faina Vega (NIK) [facility] Triage - EDon 06-30-2022 Triage - ED [...] BMI (kg/m2): 22.119 Calculated BSA (m2) 1.74 [place] Coma Scale: Best Eye Response: (E4) spontaneous Best Motor Response: (M6) obeys commands Best Verbal Response: (V5) oriented [place] Score: 15 Cough lasting greater than 3 [...] Medical History Reviewedno Electronic Signatures: Anjana Yanez (RN) (Signed 30-Jun-2022 16:57) Entered: Risk Screens, Pain, Travel History, Chart Review, Past Medical History Authored: Quick Triage, Risk Screens, Pain, Travel History, Chart Review, Past Medical History Last Updated: 30-Jun-2022 16:57 by Anjana Yanez (NIK) [facility] Provider Note - ED v3on 04- Provider [...] PRBP SpO2O (more content not included)... Normal [place]/[facility] Triage - EDon 06-25-2022 Triage - ED [...] anything to end your life no Interventions: Husam Fall Interventions: MODERATE INTERVENTIONS: *Low Interventions Plus: [...] 25-Jun-2022 14:45 by Daniel Guadarrama (RN) Normal [place]/[facility] CT CERVICAL SPINE WO PETERAS Marcelino 06-23-2022 No acute abnormality of the cervical spine. Minimal degenerative disc disease at the C5-6 level. [facility] EXAMINATION: CT OF THE CERVICAL [...] There is no prevertebral soft tissue swelling. [facility] Wilmer Wray MD - 06/23/2022 [...] degenerative disc disease at the C5-6 level. [employer] Phone: Radiology Study observation (narrative) [employer] Phone: CT CERVICAL SPINE WO CONTRAS TOrdered By: Wilmer Wray on 06-23-2022 [employer] Phone: XR HIP 2-3 VW W PELVIS LEFTo n 06-23-2022 No acute osseous findings of the pelvis or dedicated imaging of the left hip which appears grossly well approximating the acetabular cup without acute fracture [facility] EXAMINATION: ONE XRAY VIEW OF THE PELVIS AND TWO XRAY VIEWS LEFT HIP 06/23/2022 2:01 pm COMPARISON: X-ray dated 09/28/2021 HISTORY: ORDERING SYSTEM PROVIDED HISTORY: pain TECHNOLOGIST PROVIDED HISTORY: Reason for exam:->pain FINDINGS: SI joints symmetric without widening. No displaced pelvic ring fracture. [id number] DJD of the bilateral hips with dedicated imaging of the left hip AP and frog-lateral views fail to demonstrate acute fracture or cortical irregularity. [facility] Stanford Barger DO - 06/23/2022 EXAMINATION: ONE XRAY VIEW OF THE PELVIS AND TWO XRAY VIEWS LEFT HIP 06/23/2022 2:01 pm COMPARISON: X-ray dated 09/28/2021 HISTORY: ORDERING SYSTEM PROVIDED HISTORY: pain TECHNOLOGIST PROVIDED HISTORY: Reason for exam:->pain FINDINGS: SI joints symmetric without widening. No displaced pelvic ring fracture. [id number] DJD of the bilateral hips with dedicated imaging of the left hip AP and frog-lateral views fail to demonstrate acute fracture or cortical irregularity. IMPRESSION: No acute osseous findings of the pelvis or dedicated imaging of the left hip which appears grossly well approximating the acetabular cup without acute fracture [employer] Phone: Radiology Study observation (narrative) [employer] Phone: XR HIP 2-3 VW W PELVIS LEFTO rdered By: Stanford Barger on 06-23-[address] [facility] [employer] Work Phone: CBC AND DIFFERENTIALon 06-02 % AUTOMATED IMMATURE GRAN 0.3 % Normal 0.0 - 0.9 [facility] Comment on above: Result Comment: Anahi ture Granulocyte Count (IG) includes promyelocytes, myelocytes and metamyelocytes but does not include bands. Percent differential counts (%) should be interpreted in the context of the absolute cell counts (cells/L). Performed By: #### C BCDF #### [address] [address] Basophils (Bld) [#/Vol] 0.03 10*3/uL Normal 0.00 - 0.10 [facility] Comment on above: Performed By: #### C BCDF #### [address] [address] Basophils/100 WBC (Bld) 0.4 % Normal 0.0 - 2.0 [facility] Comment on above: Performed By: #### C BCDF #### [address] [address] Eosinophils (Bld) [#/Vol] 0.11 10*3/uL Normal 0.00 - 0.70 [facility] Comment on above: Performed By: #### C BCDF #### [address] [address] Eosinophils/100 WBC (Bld) 1.5 % Normal 0.0 - 6.0 [facility] Comment on above: Performed By: #### C BCDF #### [address] [address] Erythrocyte distribution width (RBC) [Ratio] 13.1 % Normal 11.5 - 14.5 [facility] Comment on above: Performed By: #### C BCDF #### [address] [address] Hematocrit (Bld) [Volume fraction] 38.9 % Normal 36.0 - 46.0 [facility] Comment on above: Performed By: #### C BCDF #### [address] [address] Hemoglobin (Bld) [Mass/Vol] 13.2 g/dL Normal 12.0 - 16.0 [facility] Comment on above: Performed By: #### C BCDF #### [address] [address] Lymphocytes (Bld) [#/Vol] 2.50 10*3/uL Normal 1.20 - 4.80 [facility] Comment on above: Performed By: #### C BCDF #### [address] [address] Lymphocytes/100 WBC (Bld) 34.3 % Normal 13.0 - 44.0 [facility] Comment on above: Performed By: #### C BCDF #### [address] [address] MCHC (RBC) [Mass/Vol] 33.9 g/dL Normal 32.0 - 36.0 [facility] Comment on above: Performed By: #### C BCDF #### [address] [address] MCV (RBC) [Entitic vol] 91 fL Normal 80 - 100 [facility] Comment on above: Performed By: #### C BCDF #### [address] [address] Monocytes (Bld) [#/Vol] 0.47 10*3/uL Normal 0.10 - 1.00 [facility] Comment on above: Performed By: #### C BCDF #### [address] [address] Monocytes/100 WBC (Bld) 6.4 % Normal 2.0 - 10.0 [facility] Comment on above: Performed By: #### C BCDF #### [address] [address] Neutrophils (Bld) [#/Vol] 4.16 10*3/uL Normal 1.20 - 7.70 [facility] Comment on above: Performed By: #### C BCDF #### [address] [address] Neutrophils/100 WBC (Bld) 57.1 % Normal 40.0 - 80.0 [facility] Comment on above: Performed By: #### C BCDF #### [address] [address] Platelets (Bld) [#/Vol] 310 10*3/uL Normal 150 - 450 [facility] Comment on above: Performed By: #### C BCDF #### [address] [address] RBC 4.26 x10E12/L Normal 4.00 - 5.20 [place] Comment on above: Performed By: #### C BCDF #### [address] [address] WBC (Bld) [#/Vol] 7.3 10*3/uL Normal 4.4 - 11.3 [facility] Comment on above: Performed By: #### C BCDF #### [address] [address] COMPREHENSIVE PANELon 2022 Anion gap [Moles/Vol] 9 mmol/L Low 10 - 20 [facility] Comment on above: Performed By: #### B MP #### [address] [address] Chloride [Moles/Vol] 108 mmol/L High 98 - 107 [facility] Comment on above: Performed By: #### B MP #### [address] [address] HCO3 (Bld) [Moles/Vol] 25 mmol/L Normal 21 - 32 [facility] Comment on above: Performed By: #### B MP #### [address] [address] Potassium [Moles/Vol] 4.4 mmol/L Normal 3.5 - 5.3 [place] [facility] Comment on above: Performed By: #### B MP #### [address] [address] Sodium [Moles/Vol] 138 mmol/L Normal 136 - 145 [place] [facility] Comment on above: Performed By: #### B MP #### [address] [address] Albumin [Mass/Vol] 3.8 g/dL Normal 3.4 - 5.0 [place]/[facility] Comment on above: Performed By: #### B MP #### [address] [address] ALP [Catalytic activity/Vol] 55 U/L Normal 33 - 110 [facility] Comment on above: Performed By: #### B MP #### [address] [address] ALT [Catalytic activity/Vol] 11 U/L Normal 7 - 45 [facility] Comment on above: Result Comment: Risa ents treated with Sulfasalazine may generate falsely decreased results for ALT. Performed By: #### B MP #### [address] [address] AST [Catalytic activity/Vol] 13 U/L Normal 9 - 39 [facility] Comment on above: Performed By: #### B MP #### [address] [address] Bilirubin [Mass/Vol] 0.2 mg/dL Normal 0.0 - 1.2 [facility] Comment on above: Performed By: #### B MP #### [address] [address] Calcium [Mass/Vol] 8.3 mg/dL Low 8.6 - 10.3 [place]/[facility] Comment on above: Performed By: #### B MP #### [address] [address] Creatinine [Mass/Vol] 0.74 mg/dL Normal 0.50 - 1.05 [facility] Comment on above: Performed By: #### B MP #### [address] [address] eGFR FEMALE >90 Normal >90 [facility] Comment on above: Result Comment: CALC ULATIONS OF ESTIMATED GFR ARE PERFORMED USING THE 2020 CKD-EPI STUDY REFIT EQUATION WITHOUT THE RACE VARIABLE FOR THE IDMS-TRACEABLE CREATININE METHODS. https://jasn.asnjournals.org/content/early//ASN.510621 1966 Performed By: #### B MP #### [address] [address] Glucose [Mass/Vol] 88 mg/dL Normal 74 - 99 [facility] Comment on above: Performed By: #### B MP #### [address] [address] Protein [Mass/Vol] 5.6 g/dL Low 6.4 - 8.2 [facility] Comment on above: Performed By: #### B MP #### [address] [address] Urea nitrogen [Mass/Vol] 12 mg/dL Normal 6 - 23 [facility] Comment on above: Performed By: #### B MP #### [address] [address] HCG,URINEon 06-02-2022 Beta HCG ( test) Ql (U) Negative Normal Negative [facility] Comment on above: Performed By: #### H CGU #### [address] [address] LACTATEon 06-02-2022 Lactate [Moles/Vol] 0.8 mmol/L Normal 0.4 - 2.0 [facility] Comment on above: Result Comment: Jen puncture immediately after or during the administration of Metamizole may lead to falsely low results. Testing should be performed immediately prior to Metamizole dosing. Performed By: #### L ACT #### [id number] [place] [address] Provider Note - ED v3on 04-0 Provider [...] a day SIGNIFICANT EVENTS: No documented data. 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 Normal [place]/[facility] Triage - EDon 06-02-2022 Triage - ED [...] BMI (kg/m2): 21.773 Calculated BSA (m2) 1.73 [place] Coma Scale: Best Eye Response: (E4) spontaneous Best Motor Response: (M6) obeys commands Best Verbal Response: (V5) oriented [place] Score: 15 Cough lasting greater than 3 [...] Medical History Reviewedno Electronic Signatures: Anjana Yanez (RN) (Signed 02-Jun-2022 13:56) Entered: Risk Screens, Pain, Travel History, Chart Review, Past Medical History Authored: Quick Triage, Risk Screens, Pain, Travel History, Chart Review, Past Medical History Last Updated: 02-Jun-2022 13:56 by Anjana Yanez (RN) Normal [place] [facility] URINALYSISon 06-02-2022 Appearance (U) Clear Normal CLEAR [place]/P [facility] Comment on above: Performed By: #### B MP #### [address] [address] Bilirubin Ql (U) Negative Normal NEGATIVE [place] /[place] [facility] Comment on above: Performed By: #### B MP #### [address] [address] Color (U) Straw Normal STRAW,YELLOW [place] [facility] Comment on above: Performed By: #### B MP #### [address] [address] Glucose Ql (U) Negative Normal NEGATIVE [place]/P [facility] Comment on above: Performed By: #### B MP #### [address] [address] Hemoglobin Ql (U) Negative Normal NEGATIVE [place] [facility] Comment on above: Performed By: #### B MP #### [address] [address] Ketones Ql (U) Negative Normal NEGATIVE [facility] on above: Performed By: #### B MP #### [address] [address] Leukocyte esterase Test strip Ql (U) Negative Normal NEGATIVE [place] [facility] Comment on above: Performed By: #### B MP #### [address] [address] Nitrite Ql (U) Negative Normal NEGATIVE [facility] Comment on above: Performed By: #### B MP #### [address] [address] pH (U) 5.0 [pH] Normal 5.0 - 8.0 [facility] Comment on above: Performed By: #### B MP #### [address] [address] Protein Ql (U) Negative Normal NEGATIVE [facility] Comment on above: Performed By: #### B MP #### [address] [address] Specific gravity (U) [Rel density] 1.005 Normal 1.005 - 1.035 [facility] Comment on above: Performed By: #### B MP #### [address] [address] Urobilinogen (U) [Mass/Vol] mg/dL Normal 0.0 - 1.9 [facility] Comment on above: Performed By: #### B MP #### [address] [address] MRI LUMBAR SPINE WO CONTRAST on 03-22-2022 1. No fracture or brendan ny destructive lesion. 2. Disc bulges in the lower lumbar spine, associated with annular tears at L4-5 and L5-S1. 3. Mild neural foraminal stenoses at L4-5. 4. No significant central canal or lateral recess stenosis. RECOMMENDATIONS: Unavailable [facility] EXAMINATION: MRI OF THE LUMBAR SPINE [...] canal, lateral recess or neural foraminal stenoses. [facility] Nina Lima MD - 03/22/2022 EXAMINATION: MRI OF THE [...] canal or lateral recess stenosis. RECOMMENDATIONS: Unavailable [employer] Phone: Radiology Study observation (narrative) [employer] Phone: MRI LUMBAR SPINE WO CONTRAST Ordered By: Nina Patel on 03-22-2022 [employer] Phone: No Panel Informationon 03-[address] [...] the abdomen pelvis. Distended gallbladder. Consider ultrasonography [facility] EXAMINATION: CT OF THE CHEST WITHOUT [...] There is constipation. The appendix is normal. [facility] Wilmer Sky MD - 03/22/2022 EXAMINATION: [...] the abdomen pelvis. Distended gallbladder. Consider ultrasonography [employer] Phone: Radiology Study observation (narrative) [employer] Phone: No Panel InformationOrdered By: Wilmer Sky on 03-22-2022 [employer] Phone: XR CHEST (2 VW)on 03-22-2022 No acute process. Specifically, there is no right pleural effusion [facility] EXAMINATION: TWO XRAY VIEWS OF THE CHEST 03/22/2022 2:13 pm COMPARISON: None. HISTORY: ORDERING SYSTEM PROVIDED HISTORY: Chronic bronchitis, unspecified chronic bronchitis type (HCC) FINDINGS: The lungs are without acute focal process. There is no effusion or pneumothorax. The cardiomediastinal silhouette is without acute process. The osseous structures are without acute process. [facility] Wilmer Wray MD - 03/22/2022 EXAMINATION: [...] Specifically, there is no right pleural effusion [employer] Phone: Radiology Study observation (narrative) [employer] Phone: XR CHEST (2 VW)Ordered By: Carolann Wray on 03-22-2022 [employer] Phone: XR PELVIS (1-2 VIEWS)on 09-02 Unremarkable pelvis. [facility] EXAMINATION: ONE XRAY VIEW OF THE PELVIS 09/28/2021 1:04 pm COMPARISON: 11 December 2018 HISTORY: ORDERING SYSTEM PROVIDED HISTORY: Other osteoarthritis involving multiple joints FINDINGS: No significant hip or SI joint arthropathy. No fracture or dislocation. Normal soft tissues. [facility] Shruthi Johnson MD - 09/28/2021 EXAMINATION: ONE XRAY VIEW OF THE PELVIS 09/28/2021 1:04 pm COMPARISON: 11 December 2018 HISTORY: ORDERING SYSTEM PROVIDED HISTORY: Other osteoarthritis involving multiple joints FINDINGS: No significant hip or SI joint arthropathy. No fracture or dislocation. Normal soft tissues. IMPRESSION: Unremarkable pelvis. [employer] Phone: Radiology Study observation (narrative) [employer] Phone: XR PELVIS (1-2 VIEWS)Ordered By: Shruthi Johnson on 09-28-2021 [employer] Phone: US HEAD NECK SOFT TISSUE THY [...] superficial ultrasound in 8-10 weeks to reassess. [employer] Phone: EXAMINATION: Superficial neck ULTRASOUND 07/26/2020 COMPARISON: [...] identified. The surrounding soft tissues are unremarkable. [employer] Phone: Tristin, Mhy Incoming Radiant Results From [employer] - 07/26/2020 5:37 PM EDT EXAMINATION: Superficial [...] superficial ultrasound in 8-10 weeks to reassess. [employer] Phone: [employer] Phone: Basic Metabolic Panel w/ Ref luke to MGOrdered By: Jia Ellis on 07-01-2020 Anion gap [Moles/Vol] 9 mmol/L 7 - 16 mmol/L [employer] Phone: Calcium [Mass/Vol] 8.3 mg/dL Low 8.6 - 10. 2 mg/dL [employer] Phone: Chloride [Moles/Vol] 101 mmol/L 98 - 10 7 mmol/L [employer] Phone: CO2 [Moles/Vol] 24 mmol/L 22 - 29 mmol/L [employer] Phone: Creatinine [Mass/Vol] 0.6 mg/dL 0.5 - 1.0 mg/dL [employer] Phone: GFR >60 [employer] Phone: GFR Non- >60 >=60 mL/min/1.73 [employer] Phone: Comment on above: Chronic Kidney Disea se: less than 60 ml/min/1.73 sq.m. Kidney Failure: less than 15 ml/min/1.73 sq.m. Results valid for patients 18 years and older. Glucose [Mass/Vol] 89 mg/dL 74 - 99 mg/dL [employer] Phone: Interpretation and review of laboratory results Abnormal [employer] Phone: Potassium [Moles/Vol] 4.3 mmol/L 3.5 - 5.0 mmol/L [employer] Phone: Sodium [Moles/Vol] 134 mmol/L 132 - 146 mmol/L [employer] Phone: Urea nitrogen (BldV) [Mass/Vol] 7 mg/dL 6 - 20 mg/dL [employer] Phone: CBCOrdered By: Jia weaver on 07-01-2020 Hematocrit (Bld) [Volume fraction] 33.6 % Low 34.0 - 48.0 % [employer] Phone: Hemoglobin.gastrointe stinal spec 1 Ql (Stl) 11.7 g/dL 11.5 - 15.5 g/dL [employer] Phone: Interpretation and review of laboratory results Abnormal [employer] Phone: MCH (RBC) [Entitic mass] 32.2 pg 26.0 - 35.0 pg [employer] Phone: MCHC (RBC) [Mass/Vol] 34.8 % High 32.0 - 34.5 % [employer] Phone: MCV (RBC) [Entitic vol] 92.6 fL 80.0 - 99.9 fL [employer] Phone: Platelet distribution width (Bld) [Ratio] 12.1 fL 11.5 - 15.0 fL [employer] Phone: Platelet mean volume (Bld) [Entitic vol] 8.7 fL 7.0 - 12.0 fL [employer] Phone: Platelets (Bld) [#/Vol] 258 10*3/uL [employer] Phone: RBC (Bld) [#/Vol] 3.63 10*6/uL [employer] Phone: WBC (Bld) [#/Vol] 3.8 10*3/uL Low [employer] Phone: CBC Auto DifferentialOrdered By: Sigrid Forbes on 06-30-2020 Basophils (Bld) [#/Vol] 0.03 10*3/uL [employer] Phone: Basophils/100 WBC (Bld) 0.7 % 0.0 - 2.0 % [employer] Phone: Eosinophils Absolute 0.15 [employer] Phone: Eosinophils/100 WBC (Bld) 3.5 % 0.0 - 6.0 % [employer] Phone: Hematocrit (Bld) [Volume fraction] 38.1 % 34.0 - 48.0 % [employer] Phone: Hemoglobin.gastrointe stinal spec 1 Ql (Stl) 13.4 g/dL 11.5 - 15.5 g/dL [employer] Phone: Immature Granulocytes # 0.01 E9/L [employer] Phone: Immature granulocytes/100 WBC (Bld) 0.2 % 0.0 - 5.0 % [employer] Phone: Interpretation and review of laboratory results Abnormal [employer] Phone: Lymphocytes Absolute 1.24 Low [employer] Phone: Lymphocytes/100 WBC (Bld) 28.8 % 20.0 - 42.0 % [employer] Phone: MCH (RBC) [Entitic mass] 32.6 pg 26.0 - 35.0 pg [employer] Phone: MCHC (RBC) [Mass/Vol] 35.2 % High 32.0 - 34.5 % [employer] Phone: MCV (RBC) [Entitic vol] 92.7 fL 80.0 - 99.9 fL [employer] Phone: Monocytes Absolute 0.35 [employer] Phone: Monocytes/100 WBC (Bld) 8.1 % 2.0 - 12.0 % [employer] Phone: Neutrophils Absolute 2.53 [employer] Phone: Neutrophils/100 WBC (Bld) 58.7 % 43.0 - 80.0 % [employer] Phone: Platelet distribution width (Bld) [Ratio] 12.3 fL 11.5 - 15.0 fL [employer] Phone: Platelet mean volume (Bld) [Entitic vol] 8.6 fL 7.0 - 12.0 fL [employer] Phone: Platelets (Bld) [#/Vol] 251 10*3/uL [employer] Phone: RBC (Bld) [#/Vol] 4.11 10*6/uL [employer] Phone: WBC (Bld) [#/Vol] 4.3 10*3/uL Low [employer] Phone: CT CHEST W CONTRASTOrdered B y: Sigrid Forbes on 06-30-2020 An asymmetric soft tissue mass in the left supraclavicular region which is vascular enhancing which is worrisome for malignancy. Adjacent left axillary lymph nodes are noted. Further assessment by PET-CT scan and or MRI is recommended. Tissue sampling may be indicated. [employer] Phone: EXAMINATION: CT OF T HE CHEST [...] measuring up to 1.1 cm are identified. [employer] Phone: Tristin, Mhy Incoming Radiant Results From [employer] - 06/30/2020 5:58 PM EDT EXAMINATION: CT [...] is recommended. Tissue sampling may be indicated. [employer] Phone: Comprehensive Metabolic Pane l w/ Reflex to MGOrdered By: Sigrid Forbes on 06-30-2020 Albumin [Mass/Vol] 4.3 g/dL 3.5 - 5.2 g/dL [employer] Phone: ALP (Bld) [Catalytic activity/Vol] 61 U/L 35 - 104 U/L [employer] Phone: ALT [Catalytic activity/Vol] 16 U/L 0 - 32 U/L [employer] Phone: Anion gap [Moles/Vol] 10 mmol/L 7 - 16 mmol/L [employer] Phone: AST [Catalytic activity/Vol] 26 U/L 0 - 31 U/L [employer] Phone: Comment on above: Specimen is moderate ly Hemolyzed. Result may be artificially increased. Bilirubin [Mass/Vol] 0.2 mg/dL 0.0 - 1 .2 mg/dL [employer] Phone: Calcium [Mass/Vol] 9.2 mg/dL 8.6 - 10. 2 mg/dL [employer] Phone: Chloride [Moles/Vol] 100 mmol/L 98 - 10 7 mmol/L [employer] Phone: CO2 [Moles/Vol] 26 mmol/L 22 - 29 mmol/L [employer] Phone: Creatinine [Mass/Vol] 0.7 mg/dL 0.5 - 1.0 mg/dL [employer] Phone: Free PSA/Total PSA [Mass fraction] 7.2 g/dL 6.4 - 8.3 g/dL [employer] Phone: GFR >60 [employer] Phone: GFR Non- >60 >=60 mL/min/1.73 [employer] Phone: Comment on above: Chronic Kidney Disea se: less than 60 ml/min/1.73 sq.m. Kidney Failure: less than 15 ml/min/1.73 sq.m. Results valid for patients 18 years and older. Glucose [Mass/Vol] 90 mg/dL 74 - 99 mg/dL [employer] Phone: Potassium [Moles/Vol] 5.0 mmol/L 3.5 - 5.0 mmol/L [employer] Phone: Comment on above: Specimen is moderate ly Hemolyzed. Result may be artificially increased. Sodium [Moles/Vol] 136 mmol/L 132 - 146 mmol/L [employer] Phone: Urea nitrogen (BldV) [Mass/Vol] 7 mg/dL 6 - 20 mg/dL [employer] Phone: ANAon 12-01-2019 Nuclear Ab IF (S) [Titer] Negative NEGATIVE [employer] [place], [place] Comment on above: NEGATIVE: <=16 years <1:10 >16 years <1:40 Test done by Indirect fluorescent antibody (HEp-2). Lipid Panelon 12-01-2019 Cholesterol [Mass/Vol] 283 mg/dL High 0 - 199 mg/dL [place], [place] Cholesterol in HDL [Mass/Vol] 66 mg/dL >40 [place], [place] Cholesterol in LDL [Mass/Vol] 168 mg/dL High 0 - 99 mg/dL [place] Interpretation and review of laboratory results Abnormal [place] Triglyceride [Mass/Vol] 244 mg/dL High 0 - 149 mg/dL [place] VLDL Cholesterol Calculated 49 mg/dL [place] Sedimentation Rateon 020 Sed Rate 5 [place] C-Reactive Proteinon 020 CRP [Mass/Vol] mg/L 0 - 0.4 mg/dL [place] Rheumatoid Factoron 11-30-19 20 Rheumatoid Factor 10 [place] CBC Auto Differentialon 07-03 Basophils (Bld) [#/Vol] 0.04 10*3/uL [place] Basophils/100 WBC (Bld) 0.6 % 0 - 2 % [place] Eosinophils (Bld) [#/Vol] 0.23 10*3/uL [place] Eosinophils/100 WBC (Bld) 3.7 % 0 - 6 % [place] Erythrocyte distribution width (RBC) [Ratio] 13.0 fL 11.5 - 15 fL [place] Hematocrit (Bld) [Volume fraction] 40.3 % 34 - 48 % [place] Hemoglobin (Bld) [Mass/Vol] 13.1 g/dL 11.5 - 15.5 g/dL [place] Immature granulocytes (Bld) [#/Vol] 0.02 10*3/uL E9/L [place] Immature granulocytes/100 WBC (Bld) 0.3 % 0 - 5 % [place] Lymphocytes (Bld) [#/Vol] 2.08 10*3/uL [place] Lymphocytes/100 WBC (Bld) 33.2 % 20 - 42 % [place] MCH (RBC) [Entitic mass] 31.2 pg 26 - 35 pg [place] MCHC (RBC) [Mass/Vol] 32.5 % 32 - 34.5 % [place] MCV (RBC) [Entitic vol] 96.0 fL 80 - 99.9 fL [place] Monocytes (Bld) [#/Vol] 0.57 10*3/uL [place] Monocytes/100 WBC (Bld) 9.1 % 2 - 12 % [place] Neutrophils Absolute 3.32 [place] Neutrophils/100 WBC (Bld) 53.1 % 43 - 80 % [place] Platelet mean volume (Bld) [Entitic vol] 8.8 fL 7 - 12 fL [place] Platelets (Bld) [#/Vol] 343 10*3/uL [place] RBC (Bld) [#/Vol] 4.20 10*6/uL [place] WBC (Bld) [#/Vol] 6.3 10*3/uL [place] Comprehensive Metabolic Pane walt 07-30-2019 Albumin [Mass/Vol] 4.6 g/dL 3.5 - 5.2 g/dL [place] ALP [Catalytic activity/Vol] 50 U/L 35 - 104 U/L [place] ALT [Catalytic activity/Vol] 10 U/L 0 - 32 U/L [place] Anion gap [Moles/Vol] 20 mmol/L High 7 - 16 mmol/L [place] AST [Catalytic activity/Vol] 14 U/L 0 - 31 U/L [place] Bilirubin Ql (U) 0.3 mg/dL 0 - 1.2 mg/dL [place] Calcium [Mass/Vol] 9.8 mg/dL 8.6 - 10. 2 mg/dL [place] Chloride [Moles/Vol] 103 mmol/L 98 - 10 7 mmol/L [place] CO2 [Moles/Vol] 19 mmol/L Low 22 - 29 mmol/L [place] Creatinine [Mass/Vol] 0.8 mg/dL 0.5 - 1 mg/dL [place] GFR >60 [place] GFR Non- >60 >=60 mL/min/1.73 [place] Comment on above: Chronic Kidney Disea se: less than 60 ml/min/1.73 sq.m. Kidney Failure: less than 15 ml/min/1.73 sq.m. Results valid for patients 18 years and older. Glucose [Mass/Vol] 96 mg/dL 74 - 99 mg/dL [place] Interpretation and review of laboratory results Abnormal [place] Potassium [Moles/Vol] 4.5 mmol/L 3.5 - 5 mmol/L [place] Protein [Mass/Vol] 7.3 g/dL 6.4 - 8.3 g/dL [place] Sodium [Moles/Vol] 142 mmol/L 132 - 146 mmol/L [place] Urea nitrogen [Mass/Vol] 10 mg/dL 6 - 20 mg/dL [place] Hemoglobin A1Con 07-30-2019 HbA1c (Bld) [Mass fraction] 4.8 % 4 - 5.6 % [place] TSH without Reflexon 020 TSH Qn 0.692 m[IU]/L [place] Fluoro For Surgical Procedur esOrdered By: Khoa Gallagher on 03-17-2019 Radiology exam is complete. No Radiologist dictation. Please follow up with ordering provider. [facility] Work Phone: Fluoro For Surgical Procedur eson 02-02-2019 Radiology exam is complete. No Radiologist dictation. Please follow up with ordering provider. [place] CBC Auto Differentialon 11-0 Basophils (Bld) [#/Vol] 0.02 10*3/uL [place] Basophils/100 WBC (Bld) 0.2 % 0 - 2 % [place] Eosinophils (Bld) [#/Vol] 0.04 10*3/uL [place] Eosinophils/100 WBC (Bld) 0.5 % 0 - 6 % [place] Erythrocyte distribution width (RBC) [Ratio] 11.8 fL 11.5 - 15 fL [place] Hematocrit (Bld) [Volume fraction] 39.7 % 34 - 48 % [place] Hemoglobin (Bld) [Mass/Vol] 13.4 g/dL 11.5 - 15.5 g/dL [place] Immature granulocytes (Bld) [#/Vol] 0.03 10*3/uL E9/L [place] Immature granulocytes/100 WBC (Bld) 0.3 % 0 - 5 % [place] Interpretation and review of laboratory results Abnormal [place] Lymphocytes (Bld) [#/Vol] 2.22 10*3/uL [place] Lymphocytes/100 WBC (Bld) 25.5 % 20 - 42 % [place] MCH (RBC) [Entitic mass] 30.7 pg 26 - 35 pg [place] MCHC (RBC) [Mass/Vol] 33.8 % 32 - 34.5 % [place] MCV (RBC) [Entitic vol] 91.1 fL 80 - 99.9 fL [place] Monocytes (Bld) [#/Vol] 0.55 10*3/uL [place] Monocytes/100 WBC (Bld) 6.3 % 2 - 12 % [place] Neutrophils Absolute 5.86 [place] Neutrophils/100 WBC (Bld) 67.2 % 43 - 80 % [place] Platelet mean volume (Bld) [Entitic vol] 8.2 fL 7 - 12 fL [place] Platelets (Bld) [#/Vol] 299 10*3/uL [place] RBC (Bld) [#/Vol] 4.36 10*6/uL [place] WBC (Bld) [#/Vol] 8.7 10*3/uL [place] CHEST W WO CONTRASTon Scattered bilateral parenchymal scars. No acute intrathoracic process is noted [place] Patient 9 : 1970 Age: 48 [...] are identified. Visualized upper abdomen is normal. [place], M[place] Incoming Radiant Results From [employer] - 01/07/2019 10:43 AM EST Patient : [...] scars. No acute intrathoracic process is noted [place] Comprehensive Metabolic Pane walt 01-07-2019 Albumin [Mass/Vol] 4.3 g/dL 3.5 - 5.2 g/dL [place] ALP [Catalytic activity/Vol] 59 U/L 35 - 104 U/L [place] ALT [Catalytic activity/Vol] 15 U/L 0 - 32 U/L [place] Anion gap [Moles/Vol] 14 mmol/L 7 - 16 mmol/L [place] AST [Catalytic activity/Vol] 17 U/L 0 - 31 U/L [place] Bilirubin Ql (U) 0.5 mg/dL 0 - 1.2 mg/dL [place] Calcium [Mass/Vol] 9.3 mg/dL 8.6 - 10. 2 mg/dL [place] Chloride [Moles/Vol] 102 mmol/L 98 - 10 7 mmol/L [place] CO2 [Moles/Vol] 23 mmol/L 22 - 29 mmol/L [place] Creatinine [Mass/Vol] 0.7 mg/dL 0.5 - 1 mg/dL [place] GFR >60 [place] GFR Non- >60 >=60 mL/min/1.73 [place] Comment on above: Chronic Kidney Disea se: less than 60 ml/min/1.73 sq.m. Kidney Failure: less than 15 ml/min/1.73 sq.m. Results valid for patients 18 years and older. Glucose [Mass/Vol] 91 mg/dL 74 - 99 mg/dL [place] Potassium [Moles/Vol] 4.1 mmol/L 3.5 - 5 mmol/L [place] Protein [Mass/Vol] 7.3 g/dL 6.4 - 8.3 g/dL [place] Sodium [Moles/Vol] 139 mmol/L 132 - 146 mmol/L [place] Urea nitrogen [Mass/Vol] 6 mg/dL 6 - 20 mg/dL [place] Hemoglobin A1Con 01-07-2019 HbA1c (Bld) [Mass fraction] 4.8 % 4 - 5.6 % [place] Lipid Panelon 01-07-2019 Cholesterol [Mass/Vol] 231 mg/dL High 0 - 199 mg/dL [place] Cholesterol in HDL [Mass/Vol] 70 mg/dL >40 [place] Cholesterol in LDL [Mass/Vol] 137 mg/dL High 0 - 99 mg/dL [place] Interpretation and review of laboratory results Abnormal [place] Triglyceride [Mass/Vol] 118 mg/dL 0 - 149 mg/dL [place] VLDL Cholesterol Calculated 24 mg/dL [place] MRI Lumbar Spine WO Contrast on 01-07-2019 1. Mild disc degenerative changes, with associated annular tears at L4-5 and L5-S1. 2. No significant central canal, lateral recess or neural foraminal stenoses. [facility] [place] Patient 9 : 1970 Age: 48 years [...] canal, lateral recess or neural foraminal stenoses. [place], [place] Incoming Radiant Results From [employer] - 01/09/2019 3:32 PM EST Patient : [...] canal, lateral recess or neural foraminal stenoses. LUIS Roblero TSH without Reflexon 019 TSH Qn 0.900 m[IU]/L Charlee Melo LUIS GRIFFIN XR CHEST STANDARD (2 VW)on No acute infiltrate The exam has been dictated and signed by EVON Ha and Jamal Merino II, MD, reviewed and concurred with these findings. LUIS Roblero Patient 9 : 1970 Age: 48 years [...] the lung whitfield. Chronic changes are noted [facility] LUIS MATIAS Tristin, Mhy Incoming Radiant Results From [employer] - 12/11/2018 4:04 PM EDT Patient : [...] MD, reviewed and concurred with these findings. LUIS Roblero XR HIP LEFT (2-3 VIEWS)on Mild degenerative changes of the left hip. The exam has been dictated and signed by EVON Ha and Jamal Merino II, MD, reviewed and concurred with these findings. [facility] LUIS MATIAS Patient 9 : 1970 Age: 48 years Gender: Female Order Date: 12/11/2018 2:06 PM EXAM: XR HIP LEFT (2-3 VIEWS) NUMBER OF IMAGES: 2 views INDICATION: M51.36 Annular tear of lumbar disc COMPARISON: 09/29/2018 The bones appear to be in anatomic alignment. No foreign body is identified. No fracture is identified. There is mild joint space loss. There are mild degenerative changes present [employer] Tr[place], y Incoming Radiant Results From [facility] - 12/11/2018 4:01 PM EDT Patient : [...] MD, reviewed and concurred with these findings. [facility] XR LUMBAR SPINE (2-3 VIEWS)o n 12-11-2018 Findings consistent with mild degenerative disc disease and moderate degenerative facet disease The exam has been dictated and signed by EVON Ha and Jamal Merino II, MD, reviewed and concurred with these findings. [facility] Patient 9 : 1970 Age: 48 years [...] are moderate degenerative changes involving the facets. [employer] [place], Mhy Incoming Radiant Results From [facility] - 12/11/2018 4:08 PM EDT Patient : [...] has been dictated and signed by Jaja Blum APRN-XUAN and Jamal Merino II, MD, reviewed and concurred with these findings. [facility] [place] Vital Signs Date Time Vital Sign Value Performing Clinician Trevon titus 10-29-2024 06:00-0400 Body weight 59.1 kg Non-Staff physician [facility] 10-29-2024 04:47-0400 Body temperature 98.5 [degF] Non-Staff physician [facility] 10-29-2024 04:47-0400 Diastolic blood pressure 96 mm[Hg] Non-Staff physician [facility] 10-29-2024 04:47-0400 Heart rate 108 /min Non-Staff physician [facility] 10-29-2024 04:47-0400 Respiratory rate 16 /min Non-Staff physician [facility] 10-29-2024 04:47-0400 SaO2% (BldA) [Mass fraction] 99 % Non-Staff physician [facility] 10-29-2024 04:47-0400 Systolic blood pressure 135 mm[Hg] Non-Staff physician [facility] 10-27-2024 21:02-0400 Body temperature 98.01 [degF] Sophia Mancilla DO Work Phone: [facility] 10-27-2024 21:02-0400 Diastolic blood pressure 80 mm[Hg] Sophia Mancilla DO Work Phone: [facility] [employer] 10-27-2024 21:02-0400 Heart rate 98 /min Sophia Mancilla DO Work Phone: [facility] 10-27-2024 21:02-0400 Respiratory rate 17 /min Sophia Mancilla DO Work Phone: [facility] [employer] 10-27-2024 21:02-0400 SaO2% (BldA) [Mass fraction] 100 % Sophia Mancilla DO Work Phone: [facility] [employer] 10-27-2024 21:02-0400 Systolic blood pressure 112 mm[Hg] Sophia Mancilla DO Work Phone: [facility] [employer] 10-27-2024 11:30-0400 Heart rate 99 /min Masoud Cardinal DO Work Phone: [facility] [employer] 10-27-2024 11:30-0400 SaO2% (BldA) [Mass fraction] 97 % Masoud Cardinal DO Work Phone: [facility] [employer] 10-27-2024 10:37-0400 Body temperature 97.59 [degF] Masoud Cardinal DO Work Phone: [facility] [employer] 10-27-2024 10:37-0400 Diastolic blood pressure 91 mm[Hg] Masoud Cardinal DO Work Phone: [facility] [employer] 10-27-2024 10:37-0400 Respiratory rate 19 /min Masoud Cardinal DO Work Phone: [facility] [employer] 10-27-2024 10:37-0400 Systolic blood pressure 117 mm[Hg] Masoud Cardinal DO Work Phone: [facility] [employer] 10-21-2024 11:42-0400 Diastolic blood pressure 78 mm[Hg] Basem Selvin Work Phone: [facility] [employer] 10-21-2024 11:42-0400 Respiratory rate 20 /min Humairam Selvin Work Phone: [facility] [employer] 10-21-2024 11:42-0400 Systolic blood pressure 132 mm[Hg] Basem Selvin Work Phone: [employer] 10-21-2024 10:59-0400 Body temperature 96.91 [degF] Humairam Selvin RACHEL Work Phone: [facility] [employer] 10-21-2024 10:59-0400 Heart rate 81 /min Baseedouard Montalvo MD Work Phone: [facility] [employer] 10-21-2024 10:59-0400 SaO2% (BldA) [Mass fraction] 99 % Basem Selvin RACHEL Work Phone: [facility] [employer] 10-20-2024 12:56-0400 Body temperature 98.71 [degF] Carmenza Vincent MD [facility] Phone: [facility] 10-20-2024 12:56-0400 Diastolic blood pressure 92 mm[Hg] Carmenza Vincent MD Work Phone[facility] 10-20-2024 12:56-0400 Heart rate 92 /min Carmenza Vincent MD Work Phone[facility] 10-20-2024 12:56-0400 Respiratory rate 19 /min Carmenza Vincent MD Work Phone[facility] 10-20-2024 12:56-0400 SaO2% (BldA) [Mass fraction] 99 % Carmenza Vincent MD Work Phone[facility] 10-20-2024 12:56-0400 Systolic blood pressure 139 mm[Hg] Carmenza Vincent MD Work Phone[facility] 10-20-2024 12:54-0400 Body height 170.2 cm Carmenza Vincent MD Work Phone: [employer] 10-20-2024 12:54-0400 Body mass index (BMI) [Ratio] 19.58 kg/m2 Carmenza Vincent MD Work Phone: [facility] 10-20-2024 12:54-0400 Body weight 56.7 kg Carmenza Vincent MD Work Phone: [facility] [employer] 10-20-2024 11:17-0400 Body height 170.2 cm Casey cortes MD Work Phone: [facility] 10-20-2024 11:17-0400 Body mass index (BMI) [Ratio] 19.58 kg/m2 Casey Duncan MD Work Phone: [facility] 10-20-2024 11:17-0400 Body weight 56.7 kg Casey cortes MD Work Phone: [facility] 10-20-2024 11:16-0400 Body temperature 98.1 [degF] Casey cortes MD Work Phone: [facility] 10-20-2024 11:16-0400 Diastolic blood pressure 64 mm[Hg] Casey Duncan MD Work Phone: [facility] 10-20-2024 11:16-0400 Heart rate 104 /min Casey cortes MD Work Phone: [facility] 10-20-2024 11:16-0400 Respiratory rate 18 /min Casey cortes MD Work Phone: [facility] 10-20-2024 11:16-0400 SaO2% (BldA) [Mass fraction] 99 % Casey Duncan MD Work Phone: [facility] 10-20-2024 11:16-0400 Systolic blood pressure 107 mm[Hg] Casey Duncan MD Work Phone: [facility] 10-16-2024 14:24-0400 Body temperature 98.01 [degF] Shady Suarez DO Work Phone: [facility] 10-16-2024 14:24-0400 Diastolic blood pressure 84 mm[Hg] Shady Suarez DO Work Phone: [employer] 10-16-2024 14:24-0400 Heart rate 110 /min Shadyyessi Suarez DO Work Phone: [facility] [employer] 10-16-2024 14:24-0400 Respiratory rate 18 /min Shadyyessi Suarez DO Work Phone: [facility] [employer] 10-16-2024 14:24-0400 SaO2% (BldA) [Mass fraction] 99 % Shadyyessi Suarez DO Work Phone: [facility] [employer] 10-16-2024 14:24-0400 Systolic blood pressure 116 mm[Hg] Shadyyessi Suarez DO Work Phone: [facility] [employer] 10-13-2024 13:28-0400 Heart rate 107 /min Basem Selvin Work Phone: [employer] 10-13-2024 12:59-0400 Diastolic blood pressure 75 mm[Hg] Basem Selvin Work Phone: [employer] 10-13-2024 12:59-0400 Respiratory rate 20 /min Basem Selvin Work Phone: [facility] [employer] 10-13-2024 12:59-0400 SaO2% (BldA) [Mass fraction] 100 % Basem Selvin Work Phone: [facility] [employer] 10-13-2024 12:59-0400 Systolic blood pressure 105 mm[Hg] Basem Selvin Work Phone: [employer] 10-13-2024 11:09-0400 Body height 170.2 cm Basem Selvin Work Phone: [facility] [employer] 10-13-2024 11:09-0400 Body mass index (BMI) [Ratio] 19.58 kg/m2 Basem Selvin Work Phone: [employer] 10-13-2024 11:09-0400 Body temperature 98.2 [degF] Basem Selvin RACHEL Work Phone: [facility] 10-13-2024 11:09-0400 Body weight 56.7 kg Basem Selvin RACHEL Work Phone: [facility] 10-10-2024 11:16-0400 Body height 170.2 cm Basem Selvin RACHEL Work Phone: [facility] 10-10-2024 11:16-0400 Body mass index (BMI) [Ratio] 19.58 kg/m2 Humairam Selvin RACHEL Work Phone: [facility] 10-10-2024 11:16-040 Body temperature 97.9 [degF] Humairam Selvin RACHEL Work Phone: [facility] 10-10-2024 11:16-0400 Body weight 56.7 kg Humairam Selvin RACHEL Work Phone: [facility] 10-10-2024 11:16-0400 Diastolic blood pressure 66 mm[Hg] Humairam Selvin RACHEL Work Phone: [facility] 10-10-2024 11:16-0400 Heart rate 99 /min Maria Elena Montalvo MD Work Phone: [facility] 10-10-2024 11:16-0400 Respiratory rate 16 /min Humairam Selvin RACHEL Work Phone: [facility] 10-10-2024 11:16-0400 SaO2% (BldA) [Mass fraction] 95 % Basem Selvin RACHEL Work Phone: [facility] 10-10-2024 11:16-0400 Systolic blood pressure 116 mm[Hg] Humairam Selvin RACHEL Work Phone: [facility] 10-10-2024 08:17-0400 Body temperature 97.59 [degF] Jorge Luis Forbes MD Work Phone: [facility] 10-10-2024 08:17-0400 Body weight 63.5 kg Jorge Luis Forbes MD Work Phone: [employer] 10-10-2024 08:17-0400 Diastolic blood pressure 82 mm[Hg] Jorge Luis Forbes MD Work Phone: [employer] 10-10-2024 08:17-0400 Heart rate 76 /min Jorge Luis Forbes MD Work Phone: [employer] 10-10-2024 08:17-0400 Respiratory rate 16 /min Jorge Luis Forbes MD Work Phone: [employer] 10-10-2024 08:17-0400 SaO2% (BldA) [Mass fraction] 99 % Jorge Luis Forbes MD Work Phone: [employer] 10-10-2024 08:17-0400 Systolic blood pressure 125 mm[Hg] Jorge Luis Forbes MD Work Phone: [employer] 10-07-2024 12:45-0400 Diastolic blood pressure 74 mm[Hg] Maria Elena Montalvo MD Work Phone: [employer] 10-07-2024 12:45-0400 Systolic blood pressure 127 mm[Hg] Maria Elena Montalvo MD Work Phone: [employer] 10-07-2024 12:16-0400 Body temperature 98.6 [degF] Maria Elena Montalvo MD Work Phone: [employer] 10-07-2024 12:16-0400 Heart rate 100 /min Maria Elena Montalvo MD Work Phone: [employer] 10-07-2024 12:16-0400 Respiratory rate 16 /min Maria Elena Montalvo MD Work Phone: [employer] 10-07-2024 12:16-0400 SaO2% (BldA) [Mass fraction] 98 % Maria Elena Montalvo MD Work Phone: [employer] 10-06-2024 09:12-0400 Body height 172.7 cm Basem Selvin Work Phone: [facility] [employer] 10-06-2024 09:12-0400 Body mass index (BMI) [Ratio] 19.16 kg/m2 Basem Selvin Work Phone: [facility] [employer] 10-06-2024 09:12-0400 Body weight 57.15 kg Basem Selvin Work Phone: [facility] [employer] 10-06-2024 09:10-0400 Body temperature 97.9 [degF] Basem Selvin Work Phone: [facility] [employer] 10-06-2024 09:10-0400 Diastolic blood pressure 73 mm[Hg] Basem Selvin Work Phone: [facility] [employer] 10-06-2024 09:10-0400 Heart rate 100 /min Basem Selvin Work Phone: [facility] [employer] 10-06-2024 09:10-0400 Respiratory rate 16 /min Basem Selvin Work Phone: [facility] [employer] 10-06-2024 09:10-0400 SaO2% (BldA) [Mass fraction] 100 % Basem Selvin Work Phone: [facility] [employer] 10-06-2024 09:10-0400 Systolic blood pressure 103 mm[Hg] Basem Selvin Work Phone: [facility] [employer] 09-27-2024 00:19-0400 Body height 172.7 cm Rosi Petersen DO Work Phone: [facility] [employer] 09-27-2024 00:19-0400 Body mass index (BMI) [Ratio] 19.16 kg/m2 Rosi Petersen DO Work Phone: [facility] [employer] 09-27-2024 00:19-0400 Body temperature 98.6 [degF] Rosi HatchGranados DO Work Phone: [employer] 09-27-2024 00:19-0400 Body weight 57.15 kg Rosi Petersen DO Work Phone: [employer] 09-27-2024 00:19-0400 Diastolic blood pressure 95 mm[Hg] Rosi ScottganoRomiGranados DO Work Phone: [employer] 09-27-2024 00:19-0400 Heart rate 110 /min Rosi ScottganladyGranados DO Work Phone: [employer] 09-27-2024 00:19-0400 Respiratory rate 16 /min Rosi Petersen DO Work Phone: [facility] [employer] 09-27-2024 00:19-0400 SaO2% (BldA) [Mass fraction] 100 % Rosi Petersen DO Work Phone: [employer] 09-27-2024 00:19-0400 Systolic blood pressure 139 mm[Hg] Rosi HatchGranados DO Work Phone: [employer] 09-25-2024 11:19-0400 Diastolic blood pressure 70 mm[Hg] Babs Dung DO Work Phone: [employer] 09-25-2024 11:19-0400 Heart rate 80 /min Babs Thomas DO Work Phone: [facility] [employer] 09-25-2024 11:19-0400 Systolic blood pressure 123 mm[Hg] Babs Thomas DO Work Phone: [facility] [employer] 09-25-2024 11:15-0400 Respiratory rate 20 /min Babs Thomas DO Work Phone: [facility] [employer] 09-25-2024 10:00-0400 Body temperature 97.59 [degF] Babs Thomas DO Work Phone: [facility] 09-25-2024 10:00-0400 SaO2% (BldA) [Mass fraction] 96 % Babs Thomas DO Work Phone: [facility] 09-23-2024 14:34-0400 Body height 170.18 cm Maria Elena Montalvo MD Work Phone: [facility] 09-23-2024 14:34-0400 Body mass index (BMI) [Ratio] 19.7 kg/m2 Humairam Selvin RACHEL Work Phone: [facility] 09-23-2024 14:34-0400 Body temperature 98 [degF] Maria Elena Montalvo MD Work Phone: [facility] 09-23-2024 14:34-0400 Body weight 57.15 kg Maria Elena Montalvo MD Work Phone: [facility] 09-23-2024 14:34-0400 Diastolic blood pressure 72 mm[Hg] Maria Elena Montalvo MD Work Phone: [facility] 09-23-2024 14:34-0400 SaO2% (BldA) [Mass fraction] 96 % Maria Elena Montalvo MD Work Phone: [facility] 09-23-2024 14:34-0400 Systolic blood pressure 118 mm[Hg] Maria Elena Montalvo MD Work Phone: [facility] [facility] 09-21-2024 14:32-0400 Heart rate 82 /min Maria Elena Montalvo MD Work Phone: [facility] [employer] 09-21-2024 12:51-0400 Body height 172.7 cm Maria Elena Montalvo MD Work Phone: [facility] [employer] 09-21-2024 12:51-0400 Body mass index (BMI) [Ratio] 19.01 kg/m2 Maria Elena Montalvo MD Work Phone: [facility] [employer] 09-21-2024 12:51-0400 Body temperature 98.1 [degF] Basem Selvin Work Phone: [facility] [employer] 09-21-2024 12:51-0400 Body weight 56.7 kg Basem Selvin Work Phone: [facility] [employer] 09-21-2024 12:51-0400 Diastolic blood pressure 105 mm[Hg] Basem Selvin Work Phone: [facility] [employer] 09-21-2024 12:51-0400 Respiratory rate 16 /min Basem Selvin Work Phone: [facility] [employer] 09-21-2024 12:51-0400 SaO2% (BldA) [Mass fraction] 100 % Basem Selvin Work Phone: [facility] [employer] 09-21-2024 12:51-0400 Systolic blood pressure 160 mm[Hg] Basem Selvin Work Phone: [facility] [employer] 09-11-2024 18:17-0400 Body temperature 98.4 [degF] Basem Selvin Work Phone: [facility] [employer] 09-11-2024 18:17-0400 Diastolic blood pressure 88 mm[Hg] Basem Selvin Work Phone: [facility] [employer] 09-11-2024 18:17-0400 Heart rate 90 /min Basem Selvin Work Phone: [facility] [employer] 09-11-2024 18:17-0400 Respiratory rate 16 /min Basem Selvin Work Phone: [facility] [employer] 09-11-2024 18:17-0400 SaO2% (BldA) [Mass fraction] 97 % Basem Selvin Work Phone: [facility] [employer] 09-11-2024 18:17-0400 Systolic blood pressure 128 mm[Hg] Basem Selvin Work Phone: [facility] [employer] 09-10-2024 09:00-0400 Diastolic blood pressure 92 mm[Hg] Basem Selvin Work Phone: [facility] [employer] 09-10-2024 09:00-0400 Heart rate 86 /min Basem Selvin Work Phone: [facility] [employer] 09-10-2024 09:00-0400 Systolic blood pressure 124 mm[Hg] Basem Selvin Work Phone: [facility] [employer] 09-10-2024 07:49-0400 Body temperature 97.3 [degF] Basem Selvin Work Phone: [facility] [employer] 09-10-2024 07:49-0400 Respiratory rate 18 /min Basem Selvin Work Phone: [facility] [employer] 09-10-2024 07:49-0400 SaO2% (BldA) [Mass fraction] 97 % Basem Selvin MD Work Phone: [facility] [employer] 09-04-2024 10:22-0400 Body temperature 97.7 [degF] Keena Ybarra MD Work Phone: [facility] [employer] 09-04-2024 10:22-0400 Diastolic blood pressure 84 mm[Hg] Keena Ybarra MD Work Phone: [facility] [employer] 09-04-2024 10:22-0400 Heart rate 85 /min Keena Ybarra MD Work Phone: [facility] [employer] 09-04-2024 10:22-0400 Respiratory rate 18 /min Keena Ybarra MD Work Phone: [facility] [employer] 09-04-2024 10:22-0400 SaO2% (BldA) [Mass fraction] 97 % Keena Ybarra MD Work Phone: [facility] [employer] 09-04-2024 10:22-0400 Systolic blood pressure 140 mm[Hg] Keena Ybarra MD Work Phone: [employer] 09-04-2024 10:22-0400 Body height 172.7 cm Keena Ybarra MD Work Phone: [facility] [employer] 09-04-2024 10:22-0400 Body mass index (BMI) [Ratio] 19.01 kg/m2 Keena Ybarra MD Work Phone: [facility] [employer] 09-04-2024 10:22-0400 Body weight 56.7 kg Keena Ybarra MD Work Phone: [facility] [employer] 08-29-2024 02:58-0400 Body temperature 98.01 [degF] Brandy Kwan Work Phone: [employer] 08-29-2024 02:58-0400 Diastolic blood pressure 72 mm[Hg] Brandy Sanches MD Work Phone: [employer] 08-29-2024 02:58-0400 Heart rate 92 /min Brandy Kwan Work Phone: [employer] 08-29-2024 02:58-0400 Respiratory rate 14 /min Brandy Kwan Work Phone: [employer] 08-29-2024 02:58-0400 SaO2% (BldA) [Mass fraction] 98 % Brandy Sanches MD Work Phone: [employer] 08-29-2024 02:58-0400 Systolic blood pressure 138 mm[Hg] Brandy Sanches MD Work Phone: [facility] [employer] 08-24-2024 16:44-0400 Body height 172.7 cm Maria Elena Montalvo MD Work Phone: [employer] 08-24-2024 16:44-0400 Body mass index (BMI) [Ratio] 18.85 kg/m2 Basem Selvin MD Work Phone: [facility] 08-24-2024 16:44-0400 Body weight 56.25 kg Basem Selvin MD Work Phone: [facility] 08-24-2024 16:12-0400 Body temperature 98.01 [degF] Basem Selvin Work Phone: [facility] 08-24-2024 16:12-0400 Diastolic blood pressure 84 mm[Hg] Basem Selvin Work Phone: [facility] 08-24-2024 16:12-0400 Heart rate 85 /min Basem Selvin MD Work Phone: [facility] 08-24-2024 16:12-0400 Respiratory rate 18 /min Basem Selvin Work Phone: [facility] 08-24-2024 16:12-0400 SaO2% (BldA) [Mass fraction] 95 % Basem Selvin MD Work Phone: [facility] 08-24-2024 16:12-0400 Systolic blood pressure 125 mm[Hg] Basem Selvin Work Phone: [facility] 08-21-2024 05:27-0400 Body temperature 98.1 [degF] Out [facility] 08-21-2024 05:27-0400 Diastolic blood pressure 74 mm[Hg] Out [facility] 08-21-2024 05:27-0400 Heart rate 100 /min Out [facility] 08-21-2024 05:27-0400 Respiratory rate 16 /min Out [facility] 08-21-2024 05:27-0400 SaO2% (BldA) [Mass fraction] 98 % Out [facility] 08-21-2024 05:27-0400 Systolic blood pressure 152 mm[Hg] Out [facility] 08-21-2024 03:32-0400 Body height 170.18 cm Out [facility] Doctor [facility] 08-21-2024 03:32-0400 Body mass index (BMI) [Ratio] 20.4 kg/m2 Out [facility] Doctor [facility] 08-21-2024 03:32-0400 Body weight 59.1 kg Out [facility] Doctor [facility] 08-20-2024 11:54-0400 Diastolic blood pressure 94 mm[Hg] Maria Elena Montalvo MD Work Phone: [facility] 08-20-2024 11:54-0400 Heart rate 74 /min Maria Elena Montalvo MD Work Phone: [phone] [place] [address] 08-20-2024 11:54-0400 Respiratory rate 16 /min Maria Elena Montalvo MD Work Phone: [phone] [place] [address] 08-20-2024 11:54-0400 SaO2% (BldA) [Mass fraction] 99 % Maria Elena Montalvo MD Work Phone: [facility] 08-20-2024 11:54-0400 Systolic blood pressure 148 mm[Hg] Maria Elena Montalvo MD Work Phone: [facility] 08-20-2024 10:03-0400 Body height 172.7 cm Maria Elena Montalvo MD Work Phone: [facility] 08-20-2024 10:03-0400 Body mass index (BMI) [Ratio] 18.85 kg/m2 Maria Elena Montalvo MD Work Phone: [facility] 08-20-2024 10:03-0400 Body temperature 98.2 [degF] Maria Elena Montalvo MD Work Phone: [facility] 08-20-2024 10:03-0400 Body weight 56.25 kg Maria Elena Montalvo MD Work Phone: [facility] 08-08-2024 20:20-0400 Diastolic blood pressure 81 mm[Hg] Lourdes Cardoza MD Work Phone: [facility] [employer] 08-08-2024 20:20-0400 Heart rate 83 /min Lourdes Cardoza MD Work Phone: [facility] [employer] 08-08-2024 20:20-0400 Respiratory rate 18 /min Lourdes Cardoza MD Work Phone: [facility] [employer] 08-08-2024 20:20-0400 SaO2% (BldA) [Mass fraction] 97 % Lourdes Cardoza MD Work Phone: [facility] [employer] 08-08-2024 20:20-0400 Systolic blood pressure 134 mm[Hg] Lourdes Cardoza MD Work Phone: [facility] [employer] 08-08-2024 17:45-0400 Body temperature 98.49 [degF] Lourdes Cardoza MD Work Phone: [facility] [employer] 08-06-2024 04:30-0400 Body temperature 98.1 [degF] Kayode Glozman DO Work Phone: [facility] [employer] 08-06-2024 04:30-0400 Diastolic blood pressure 71 mm[Hg] Kayode Glozman DO Work Phone: [facility] [employer] 08-06-2024 04:30-0400 Heart rate 72 /min Kayode Glozman DO Work Phone: [facility] [employer] 08-06-2024 04:30-0400 Respiratory rate 16 /min Kayode Glozman DO Work Phone: [facility] [employer] 08-06-2024 04:30-0400 SaO2% (BldA) [Mass fraction] 98 % Kayode Glozman DO Work Phone: [facility] [employer] 08-06-2024 04:30-0400 Systolic blood pressure 108 mm[Hg] Kayode Glozman DO Work Phone: [facility] [employer] 08-01-2024 04:34-0400 Diastolic blood pressure 84 mm[Hg] [facility]ia [facility]erta DO [facility] 08-01-2024 04:34-0400 Heart rate 94 /min Jia Huerta DO [facility] Phone[facility] [employer] 08-01-2024 04:34-0400 Respiratory rate 17 /min Jia Huerta DO Work Phone: [facility] 08-01-2024 04:34-0400 SaO2% (BldA) [Mass fraction] 100 % Jia Huerta DO Work Phone: [facility] [employer] 08-01-2024 04:34-0400 Systolic blood pressure 110 mm[Hg] Jia Huerta DO Work Phone: [facility] [employer] 07-12-2024 04:15-0400 Body temperature 98.1 [degF] Lesley Taylor DO Work Phone: [facility] 07-12-2024 04:15-0400 Diastolic blood pressure 91 mm[Hg] Lesley Taylor DO Work Phone: [facility] 07-12-2024 04:15-0400 Heart rate 93 /min Lesley Taylor DO Work Phone: [facility] 07-12-2024 04:15-0400 Respiratory rate 16 /min Lesley Taylor DO Work Phone: [facility] 07-12-2024 04:15-0400 SaO2% (BldA) [Mass fraction] 97 % Lesley Taylor DO Work Phone: [facility] 07-12-2024 04:15-0400 Systolic blood pressure 128 mm[Hg] Lesley Taylor DO Work Phone: [facility] 07-12-2024 02:13-0400 Body height 172.7 cm Lesley Taylor DO Work Phone: [facility] 07-12-2024 02:13-0400 Body mass index (BMI) [Ratio] 19.46 kg/m2 Lesley Taylor DO Work Phone: [facility] 07-12-2024 02:13-0400 Body weight 58.06 kg Lesley Taylor DO Work Phone: [facility] 07-08-2024 21:23-0400 Respiratory rate 16 /min Kev sHu DO Work Phone: [employer] 07-08-2024 19:56-0400 Body mass index (BMI) [Ratio] 19.01 kg/m2 Kevharper Hsu DO Work Phone: [facility] [employer] 07-08-2024 19:56-0400 Body weight 56.7 kg Kev Hsu DO Work Phone: [facility] [employer] 07-08-2024 19:38-0400 Body temperature 98.4 [degF] Kev Hsu DO Work Phone: [employer] 07-08-2024 19:38-0400 Diastolic blood pressure 91 mm[Hg] Kev Hsu DO Work Phone: [facility] [employer] 07-08-2024 19:38-0400 Heart rate 102 /min Kev Hsu DO Work Phone: [facility] [employer] 07-08-2024 19:38-0400 SaO2% (BldA) [Mass fraction] 98 % Kev Hsu DO Work Phone: [employer] 07-08-2024 19:38-0400 Systolic blood pressure 138 mm[Hg] Kev Hsu DO Work Phone: [employer] 07-07-2024 08:19-0400 Diastolic blood pressure 75 mm[Hg] Annalisa [employer] [facility] 07-07-2024 08:19-0400 Systolic blood pressure 128 mm[Hg] [facility] 07-07-2024 04:16-0400 Body height 172.72 cm [facility] 07-07-2024 04:16-0400 Body mass index (BMI) [Ratio] 18.8 kg/m2 [facility] 07-07-2024 04:16-0400 Body temperature 97.7 [degF] [facility] 07-07-2024 04:16-0400 Body weight 56.1 kg [facility] 07-07-2024 04:16-0400 Heart rate 101 /min [facility] 07-07-2024 04:16-0400 Respiratory rate 20 /min [facility] 07-07-2024 04:16-0400 SaO2% (BldA) [Mass fraction] 99 % [facility] 07-01-2024 07:53-0400 Diastolic blood pressure 70 mm[Hg] Cara [facility]jeda DO [facility] 07-01-2024 07:53-0400 Heart rate 86 /min Cara [facility]jeda DO [facility] 07-01-2024 07:53-0400 Respiratory rate 16 /min Cara [facility]jeda DO [facility] 07-01-2024 07:53-0400 SaO2% (BldA) [Mass fraction] 98 % Cara Ojeda DO Work Phone: [facility] 07-01-2024 07:53-0400 Systolic blood pressure 133 mm[Hg] Cara Ojeda DO Work Phone: [facility] 07-01-2024 07:48-0400 Body height 172.7 cm Cara [facility]jeda DO [facility] 07-01-2024 07:48-0400 Body mass index (BMI) [Ratio] 20.53 kg/m2 Cara Ojeda DO Work Phone: [facility] 07-01-2024 07:48-0400 Body weight 61.24 kg Cara Ojeda DO Work Phone: [facility] [employer] 07-01-2024 07:39-0400 Body temperature 98.2 [degF] Cara Ojeda DO Work Phone: [facility] [employer] 06-17-2024 03:52-0400 Body mass index (BMI) [Ratio] 19.98 kg/m2 Kevharper Hsu DO Work Phone: [facility] [employer] 06-17-2024 03:52-0400 Body weight 57.88 kg Kev Shadi DO Work Phone: [facility] [employer] 06-17-2024 03:40-0400 Body temperature 98.2 [degF] Kev Hsu DO Work Phone: [facility] [employer] 06-17-2024 03:40-0400 Diastolic blood pressure 98 mm[Hg] Kevharper Hsu DO Work Phone: [facility] [employer] 06-17-2024 03:40-0400 Heart rate 95 /min Kev Shadi DO Work Phone: [facility] [employer] 06-17-2024 03:40-0400 Respiratory rate 16 /min Kev Shadi DO Work Phone: [facility] [employer] 06-17-2024 03:40-0400 SaO2% (BldA) [Mass fraction] 97 % Kev Hsu DO Work Phone: [facility] [employer] 06-17-2024 03:40-0400 Systolic blood pressure 174 mm[Hg] Kev Shadi DO Work Phone: [employer] 06-10-2024 15:30-0400 Diastolic blood pressure 75 mm[Hg] Cara De Pazne DO Work Phone: [facility] [employer] 06-10-2024 15:30-0400 Heart rate 92 /min Cara De Pazne DO Work Phone: [facility] [employer] 06-10-2024 15:30-0400 Respiratory rate 17 /min Cara Ojeda DO Work Phone: [employer] 06-10-2024 15:30-0400 SaO2% (BldA) [Mass fraction] 95 % Cara Ojeda DO Work Phone: [facility] [employer] 06-10-2024 15:30-0400 Systolic blood pressure 100 mm[Hg] Cara Ojeda DO Work Phone: [employer] 06-10-2024 12:43-0400 Body temperature 98.4 [degF] Cara De Pazne DO Work Phone: [facility] [employer] 06-05-2024 16:06-0400 Body mass index (BMI) [Ratio] 20.36 kg/m2 Cara Ojeda DO Work Phone: [employer] 06-05-2024 16:06-0400 Body weight 58.97 kg Cara Ojeda DO Work Phone: [employer] 06-05-2024 16:06-0400 Diastolic blood pressure 90 mm[Hg] Cara De Pazne DO Work Phone: [facility] [employer] 06-05-2024 16:06-0400 Respiratory rate 18 /min Cara Ojeda DO Work Phone: [employer] 06-05-2024 16:06-0400 Systolic blood pressure 118 mm[Hg] Cara Ojeda DO Work Phone: [employer] 06-05-2024 15:46-0400 Body temperature 98.4 [degF] Cara eD Pazne DO Work Phone: [employer] 06-05-2024 15:46-0400 Heart rate 113 /min Cara Ojeda DO Work Phone: [employer] 06-05-2024 15:46-0400 SaO2% (BldA) [Mass fraction] 98 % Cara Ojeda DO Work Phone: [facility] [employer] 06-03-2024 10:50-0400 Body height 170.2 cm Kev Hsu DO Work Phone: [facility] [employer] 06-03-2024 10:50-0400 Body mass index (BMI) [Ratio] 21.14 kg/m2 Kevharper Hsu DO Work Phone: [facility] [employer] 06-03-2024 10:50-0400 Body weight 61.24 kg Kev Hsu DO Work Phone: [facility] [employer] 06-03-2024 10:16-0400 Body temperature 98.01 [degF] Kev Hsu DO Work Phone: [facility] [employer] 06-03-2024 10:16-0400 Diastolic blood pressure 86 mm[Hg] Kev Hsu DO Work Phone: [facility] [employer] 06-03-2024 10:16-0400 Heart rate 100 /min Kev Hsu DO Work Phone: [facility] [employer] 06-03-2024 10:16-0400 Respiratory rate 20 /min Kev Hsu DO Work Phone: [facility] [employer] 06-03-2024 10:16-0400 SaO2% (BldA) [Mass fraction] 97 % Kev Hsu DO Work Phone: [facility] [employer] 06-03-2024 10:16-0400 Systolic blood pressure 125 mm[Hg] Kev Hsu DO Work Phone: [employer] 05-25-2024 13:06-0400 Body temperature 98.2 [degF] Hu Hannah DO Work Phone: [facility] [employer] 05-25-2024 13:06-0400 Diastolic blood pressure 89 mm[Hg] Hu Hannah DO Work Phone: [facility] [employer] 05-25-2024 13:06-0400 Heart rate 91 /min Hu Hannah DO Work Phone: [employer] 05-25-2024 13:06-0400 Respiratory rate 18 /min Hu Hannah DO Work Phone: [facility] [employer] 05-25-2024 13:06-0400 SaO2% (BldA) [Mass fraction] 100 % Huestella Hannah DO Work Phone: [employer] 05-25-2024 13:06-0400 Systolic blood pressure 142 mm[Hg] Hu Hannah DO Work Phone: [employer] 05-25-2024 10:22-0400 Diastolic blood pressure 107 mm[Hg] Basem Selvin RACHEL Work Phone: [employer] 05-25-2024 10:22-0400 Heart rate 92 /min Basem Selvin RACHEL Work Phone: [employer] 05-25-2024 10:22-0400 Systolic blood pressure 145 mm[Hg] Basem Selvin MD Work Phone: [employer] 05-25-2024 10:20-0400 Respiratory rate 20 /min Basem Selvin RACHEL Work Phone: [employer] 05-25-2024 09:56-0400 Body temperature 98.29 [degF] Basem Selvin MD Work Phone: [employer] 05-25-2024 09:56-0400 SaO2% (BldA) [Mass fraction] 98 % Humairam Selvin RACHEL Work Phone: [employer] 05-22-2024 11:28-0400 Body mass index (BMI) [Ratio] 21.93 kg/m2 Jae Sommer MD Work Phone: [employer] 05-22-2024 11:28-0400 Body weight 63.5 kg Jae Sommer MD Work Phone: [employer] 05-22-2024 11:26-0400 Diastolic blood pressure 101 mm[Hg] Jae Sommer MD Work Phone: [facility] [employer] 05-22-2024 11:26-0400 Respiratory rate 20 /min Jae Sommer MD Work Phone: [facility] [employer] 05-22-2024 11:26-0400 Systolic blood pressure 145 mm[Hg] Jae Sommer MD Work Phone: [facility] [employer] 05-22-2024 11:03-0400 Body temperature 97.5 [degF] Jae Sommer MD Work Phone: [facility] [employer] 05-22-2024 11:03-0400 Heart rate 67 /min Jae Sommer MD Work Phone: [facility] [employer] 05-22-2024 11:03-0400 SaO2% (BldA) [Mass fraction] 100 % Jae Sommer MD Work Phone: [facility] [employer] 05-20-2024 13:12-0400 Body temperature 97.9 [degF] Don Queen MD Work Phone: [facility] [employer] 05-20-2024 13:12-0400 Diastolic blood pressure 74 mm[Hg] Don Queen MD Work Phone: [facility] [employer] 05-20-2024 13:12-0400 Heart rate 95 /min Don Queen MD Work Phone: [facility] [employer] 05-20-2024 13:12-0400 Respiratory rate 24 /min Don Queen MD Work Phone: [facility] [employer] 05-20-2024 13:12-0400 SaO2% (BldA) [Mass fraction] 97 % Don Queen MD Work Phone: [facility] [employer] 05-20-2024 13:12-0400 Systolic blood pressure 116 mm[Hg] Don Queen MD Work Phone: [facility] 05-20-2024 11:13-0400 Body height 170.18 cm [facility] 05-20-2024 11:13-0400 Body mass index (BMI) [Ratio] 20.5 kg/m2 [facility] 05-20-2024 11:13-0400 Body temperature 97.3 [degF] [facility] 05-20-2024 11:13-0400 Body weight 59.42 kg [facility] 05-20-2024 11:13-0400 Diastolic blood pressure 84 mm[Hg] [facility] 05-20-2024 11:13-0400 Heart rate 88 /min [facility] 05-20-2024 11:13-0400 SaO2% (BldA) [Mass fraction] 99 % [facility] 05-20-2024 11:13-0400 Systolic blood pressure 136 mm[Hg] [facility] 05-17-2024 08:15-0400 Diastolic blood pressure 70 mm[Hg] Lesley Taylor DO Work Phone: [facility] 05-17-2024 08:15-0400 Heart rate 78 /min Lesley Taylor DO Work Phone: [facility] 05-17-2024 08:15-0400 Respiratory rate 20 /min Lesley Taylor DO Work Phone: [facility] 05-17-2024 08:15-0400 SaO2% (BldA) [Mass fraction] 97 % Lesley Taylor DO Work Phone: [facility] 05-17-2024 08:15-0400 Systolic blood pressure 132 mm[Hg] Lesley Taylor DO Work Phone: [facility] 05-17-2024 07:30-0400 Body temperature 98.6 [degF] Lesley Taylor DO Work Phone: [facility] 05-17-2024 03:00-0400 Body height 170.2 cm Lesley Taylor DO Work Phone: [facility] 05-17-2024 03:00-0400 Body mass index (BMI) [Ratio] 21.62 kg/m2 Lesley Taylor DO Work Phone: [facility] 05-17-2024 03:00-0400 Body weight 62.6 kg Lesley Taylor DO Work Phone: [facility] 05-15-2024 11:18-0400 Diastolic blood pressure 92 mm[Hg] Kevharper Hsu DO Work Phone: [facility] [employer] 05-15-2024 11:18-0400 Heart rate 68 /min Kev Hsu DO Work Phone: [facility] [employer] 05-15-2024 11:18-0400 Respiratory rate 18 /min Kev Hsu DO Work Phone: [facility] [employer] 05-15-2024 11:18-0400 SaO2% (BldA) [Mass fraction] 99 % Kev Hsu DO Work Phone: [employer] 05-15-2024 11:18-0400 Systolic blood pressure 147 mm[Hg] Kev Hsu DO Work Phone: [employer] 05-15-2024 09:41-0400 Body height 170.2 cm Kev Hsu DO Work Phone: [facility] [employer] 05-15-2024 09:41-0400 Body mass index (BMI) [Ratio] 21.14 kg/m2 Kev Hsu DO Work Phone: [employer] 05-15-2024 09:41-0400 Body weight 61.24 kg Kev Hsu DO Work Phone: [employer] 05-15-2024 09:35-0400 Body temperature 97.9 [degF] Kev Hsu DO Work Phone: [employer] 05-02-2024 06:22-0500 Diastolic blood pressure 71 mm[Hg] Kev Hsu DO Work Phone: [facility] [employer] 05-02-2024 06:22-0500 Heart rate 79 /min Kevharper Hsu DO Work Phone: [facility] [employer] 05-02-2024 06:22-0500 Respiratory rate 16 /min Kev Shadi DO Work Phone: [facility] [employer] 05-02-2024 06:22-0500 SaO2% (BldA) [Mass fraction] 98 % Kevharper Hsu DO Work Phone: [facility] [employer] 05-02-2024 06:22-0500 Systolic blood pressure 112 mm[Hg] Kev Shadi DO Work Phone: [facility] [employer] 05-02-2024 03:52-0500 Body height 170.2 cm Kevharper Hsu DO Work Phone: [facility] [employer] 05-02-2024 03:52-0500 Body mass index (BMI) [Ratio] 22.71 kg/m2 Kev Hsu DO Work Phone: [facility] [employer] 05-02-2024 03:52-0500 Body temperature 98.2 [degF] Kev Hsu DO Work Phone: [facility] [employer] 05-02-2024 03:52-0500 Body weight 65.77 kg Kev Hsu DO Work Phone: [facility] [employer] 04-30-2024 04:06-0500 Body height 172.7 cm Tonya Kwan Work Phone: [facility] 04-30-2024 04:06-0500 Body mass index (BMI) [Ratio] 21.29 kg/m2 Tonya Tran MD Work Phone: [facility] 04-30-2024 04:06-0500 Body temperature 97.9 [degF] Tonya Tran M D Work Phone: [facility] 04-30-2024 04:06-0500 Body weight 63.5 kg Tonya Kwan Work Phone: [facility] 04-30-2024 04:06-0500 Diastolic blood pressure 86 mm[Hg] Tonya Tran MD Work Phone: [facility] 04-30-2024 04:06-0500 Heart rate 94 /min Tonya Tran M D Work Phone: [facility] 04-30-2024 04:06-0500 Respiratory rate 18 /min Tonya Tarn M D Work Phone: [facility] 04-30-2024 04:06-0500 SaO2% (BldA) [Mass fraction] 98 % Tonya Tran MD Work Phone: [facility] 04-30-2024 04:06-0500 Systolic blood pressure 121 mm[Hg] Tonya Tran MD Work Phone: [facility] 04-29-2024 03:37-0500 Body temperature 97.81 [degF] Jan Floresffey DO Work Phone: [facility] [employer] 04-29-2024 03:37-0500 Diastolic blood pressure 86 mm[Hg] Jan Skiffey DO Work Phone: [employer] 04-29-2024 03:37-0500 Heart rate 97 /min Jan Skiffey DO Work Phone: [employer] 04-29-2024 03:37-0500 Respiratory rate 18 /min Jan Skiffey DO Work Phone: [employer] 04-29-2024 03:37-0500 SaO2% (BldA) [Mass fraction] 99 % Jan Skiffey DO Work Phone: [facility] [employer] 04-29-2024 03:37-0500 Systolic blood pressure 124 mm[Hg] Jan Smith DO Work Phone: [facility] [employer] 04-24-2024 04:31-0500 Body height 170.2 cm [facility] 04-24-2024 04:31-0500 Body mass index (BMI) [Ratio] 21.14 kg/m2 Kayode Glozman DO [facility] 04-24-2024 04:31-0500 Body temperature 98.6 [degF] Kayode [facility]ozman DO [facility] 04-24-2024 04:31-0500 Body weight 61.24 kg Kayode Caicedoman DO [facility] 04-24-2024 04:31-0500 Diastolic blood pressure 84 mm[Hg] Kayode [facility]ozman DO [facility] 04-24-2024 04:31-0500 Heart rate 89 /min Kayode [facility]ozman DO [facility] 04-24-2024 04:31-0500 Respiratory rate 20 /min Kayode Caicedoman DO [facility] 04-24-2024 04:31-0500 SaO2% (BldA) [Mass fraction] 97 % Kayode Glozman DO [facility] 04-24-2024 04:31-0500 Systolic blood pressure 143 mm[Hg] Kayode [facility]ozman DO [facility] 04-20-2024 14:07-0500 Body mass index (BMI) [Ratio] 21.14 kg/m2 Maria Elena Montalvo MD [facility] 04-20-2024 14:07-0500 Body weight 61.24 kg Maria Elena Montalvo MD Work Phone: [facility] 04-20-2024 13:55-0500 Body temperature 98.1 [degF] Maria Elena Montalvo MD Work Phone: [facility] 04-20-2024 13:55-0500 Diastolic blood pressure 84 mm[Hg] Maria Elena Montalvo MD Work Phone: [facility] 04-20-2024 13:55-0500 Heart rate 91 /min Maria Elena Montalvo MD Work Phone: [facility] 04-20-2024 13:55-0500 Respiratory rate 14 /min Maria Elena Montalvo MD Work Phone: [facility] 04-20-2024 13:55-0500 SaO2% (BldA) [Mass fraction] 98 % Baseedouard Montalvo MD Work Phone: [facility] 04-20-2024 13:55-0500 Systolic blood pressure 137 mm[Hg] Maria Elena Montalvo MD Work Phone: [facility] 04-11-2024 10:59-0500 Diastolic Blood Pressure Non-Invasive 83 mm[Hg] DR SANTA LESTER MD [facility] 04-11-2024 10:59-0500 Respiratory rate 20 /min DR SANTA LESTER MD [facility] 04-11-2024 10:59-0500 Systolic Blood Pressure Non-Invasive 147 mm[Hg] DR SANTA LESTER MD [facility] 04-11-2024 06:35-05[address] Blood Pressure Cuff Size DR SANTA LESTER MD [facility] 04-11-2024 06:35-[address] SANTA LESTER MD [facility] 04-11-2024 06:35-[address] SANTA LESTER MD [facility] 04-11-2024 06:35-0500 Body temperature 96.8 [degF] DR SANTA LESTER MD [facility] 04-11-2024 06:35-0500 Body weight 60.[address] SANTA LESTER MD [facility] 04-11-2024 06:35-0500 Diastolic Blood Pressure Non-Invasive 88 mm[Hg] DR SANTA LESTER MD [facility] 04-11-2024 06:35-0500 Respiratory rate 18 /min DR SANTA LESTER MD [facility] 04-11-2024 06:35-0500 Systolic Blood Pressure Non-Invasive 129 mm[Hg] DR SANTA LESTER MD [facility] 04-10-2024 02:57-0500 Diastolic blood pressure 89 mm[Hg] Maria Elena Montalvo MD Work Phone: [facility] 04-10-2024 02:57-0500 Heart rate 95 /min Maria Elena Montalvo MD Work Phone: [facility] 04-10-2024 02:57-0500 Respiratory rate 18 /min Maria Elena Montalvo MD Work Phone: [facility] 04-10-2024 02:57-0500 SaO2% (BldA) [Mass fraction] 98 % Maria Elena Montalvo MD Work Phone: [facility] 04-10-2024 02:57-0500 Systolic blood pressure 132 mm[Hg] Maria Elena Montalvo MD Work Phone: [facility] 04-10-2024 02:08-0500 Body height 170.2 cm Maria Elena Montalvo MD Work Phone: [facility] 04-10-2024 02:08-0500 Body mass index (BMI) [Ratio] 21.93 kg/m2 Maria Elena Montalvo MD Work Phone: [employer] 04-10-2024 02:08-0500 Body temperature 98.8 [degF] Maria Elena Montalvo MD Work Phone: [facility] [employer] 04-10-2024 02:08-0500 Body weight 63.5 kg Maria Elena Montalvo MD Work Phone: [facility] [employer] 04-07-2024 04:26-0500 Body temperature 97.9 [degF] Brandy Kwan Work Phone: [employer] 04-07-2024 04:26-0500 Diastolic blood pressure 75 mm[Hg] Brandy Sanches MD Work Phone: [facility] [employer] 04-07-2024 04:26-0500 Heart rate 95 /min Brandy Kwan Work Phone: [employer] 04-07-2024 04:26-0500 Respiratory rate 16 /min Brandy Kwan Work Phone: [employer] 04-07-2024 04:26-0500 SaO2% (BldA) [Mass fraction] 98 % Brandy Sanches MD Work Phone: [facility] [employer] 04-07-2024 04:26-0500 Systolic blood pressure 140 mm[Hg] Brandy Sanches MD Work Phone: [employer] 03-29-2024 09:56-0500 SaO2% (BldA) [Mass fraction] 98 % Kev Hsu DO Work Phone: [employer] 03-29-2024 09:55-0500 Diastolic blood pressure 86 mm[Hg] Kev Hsu DO Work Phone: [facility] [employer] 03-29-2024 09:55-0500 Systolic blood pressure 148 mm[Hg] Kev Hsu DO Work Phone: [facility] [employer] 03-29-2024 08:29-0500 Heart rate 94 /min Kevharper Hsu DO Work Phone: [facility] [employer] 03-29-2024 08:29-0500 Respiratory rate 10 /min Kev Hsu [employer] Work Phone: [facility] [employer] 03-29-2024 07:10-0500 Body height 170.2 cm Kevharper Hsu [employer] [facility] 03-29-2024 07:10-0500 Body mass index (BMI) [Ratio] 21.93 kg/m2 Kevharper Hsu DO Work Phone: [facility] [employer] 03-29-2024 07:10-0500 Body temperature 98.2 [degF] Kevharper Hsu [employer] Work Phone: [facility] [employer] 03-29-2024 07:10-0500 Body weight 63.5 kg Kevharper Hsu [employer] Work Phone: [facility] [employer] 03-25-2024 09:08-0500 Body height 170.18 cm [facility] 03-25-2024 09:08-0500 Body mass index (BMI) [Ratio] 21.3 kg/m2 [facility] 03-25-2024 09:08-0500 Body temperature 97.3 [degF] [facility] 03-25-2024 09:08-0500 Body weight 61.8 kg [facility] 03-25-2024 09:08-0500 Diastolic blood pressure 76 mm[Hg] [facility] 03-25-2024 09:08-0500 Heart rate 85 /min [facility] 03-25-2024 09:08-0500 SaO2% (BldA) [Mass fraction] 99 % [facility] 03-25-2024 09:08-0500 Systolic blood pressure 116 mm[Hg] [facility] 03-19-2024 05:57-0500 Diastolic blood pressure 86 mm[Hg] [facility] 03-19-2024 05:57-0500 Systolic blood pressure 141 mm[Hg] [facility] 03-19-2024 05:24-0500 Heart rate 92 /min [facility] 03-19-2024 05:24-0500 Respiratory rate 16 /min [facility] 03-19-2024 05:24-0500 SaO2% (BldA) [Mass fraction] 100 % [facility] 03-19-2024 03:20-0500 Body temperature 98.5 [degF] [facility] 03-18-2024 04:57-0500 Body temperature 97.9 [degF] Rosi Mayito DO Work Phone: [facility] [employer] 03-18-2024 04:57-0500 Diastolic blood pressure 99 mm[Hg] Rosi Petersen DO Work Phone: [facility] [employer] 03-18-2024 04:57-0500 Heart rate 100 /min Rosi Petersen DO Work Phone: [facility] [employer] 03-18-2024 04:57-0500 Respiratory rate 18 /min Rosi Mayito DO Work Phone: [facility] [employer] 03-18-2024 04:57-0500 SaO2% (BldA) [Mass fraction] 99 % Rosi ScottganoRomiDarwin DO Work Phone: [employer] 03-18-2024 04:57-0500 Systolic blood pressure 154 mm[Hg] Rosi Mayito DO Work Phone: [employer] 03-17-2024 04:48-0500 Diastolic blood pressure 89 mm[Hg] Jia Huerta DO Work Phone: [employer] 03-17-2024 04:48-0500 Heart rate 87 /min Jia Huerta DO Work Phone: [employer] 03-17-2024 04:48-0500 Respiratory rate 16 /min Jia Huerta DO Work Phone: [employer] 03-17-2024 04:48-0500 SaO2% (BldA) [Mass fraction] 100 % Jia Huerta DO Work Phone: [facility] [employer] 03-17-2024 04:48-0500 Systolic blood pressure 154 mm[Hg] Jia Huerta DO Work Phone: [facility] [employer] 03-17-2024 03:01-0500 Body height 170.2 cm Jia Huerta DO Work Phone: [facility] [employer] 03-17-2024 03:01-0500 Body mass index (BMI) [Ratio] 21.93 kg/m2 Jia Huerta DO Work Phone: [facility] [employer] 03-17-2024 03:01-0500 Body temperature 97.7 [degF] Jia Huerta DO Work Phone: [facility] [employer] 03-17-2024 03:01-0500 Body weight 63.5 kg Jia Huerta DO Work Phone: [employer] 03-13-2024 16:36-0500 Body temperature 97.2 [degF] Basem Selvin RACHEL Work Phone: [employer] 03-13-2024 16:36-0500 Diastolic blood pressure 97 mm[Hg] Basem Selvin Work Phone: [facility] [employer] 03-13-2024 16:36-0500 Heart rate 88 /min Basem Selvin Work Phone: [employer] 03-13-2024 16:36-0500 Respiratory rate 18 /min Humairam Selvin MD Work Phone: [facility] [employer] 03-13-2024 16:36-0500 SaO2% (BldA) [Mass fraction] 99 % Basem Selvin MD Work Phone: [employer] 03-13-2024 16:36-0500 Systolic blood pressure 152 mm[Hg] Basem Selvin Work Phone: [facility] [employer] 03-13-2024 16:35-0500 Body height 170.2 cm Basem Selvin Work Phone: [facility] [employer] 03-13-2024 16:35-0500 Body mass index (BMI) [Ratio] 21.93 kg/m2 Basem Selvin Work Phone: [facility] [employer] 03-13-2024 16:35-0500 Body weight 63.5 kg Basem Selvin Work Phone: [facility] [employer] 03-12-2024 16:13-0500 Body height 170.2 cm Basem Selvin Work Phone: [facility] [employer] 03-12-2024 16:13-0500 Body mass index (BMI) [Ratio] 21.93 kg/m2 Basem Selvin Work Phone: [employer] 03-12-2024 16:13-0500 Body temperature 99.3 [degF] Basem Selvin Work Phone: [facility] [employer] 03-12-2024 16:13-0500 Body weight 63.5 kg Basem Selvin Work Phone: [facility] [employer] 03-12-2024 16:13-0500 Diastolic blood pressure 104 mm[Hg] Basem Selvin Work Phone: [facility] [employer] 03-12-2024 16:13-0500 Heart rate 98 /min Basem Selvin Work Phone: [facility] [employer] 03-12-2024 16:13-0500 Respiratory rate 16 /min Basem Selvin Work Phone: [facility] [employer] 03-12-2024 16:13-0500 SaO2% (BldA) [Mass fraction] 99 % Basem Selvin MD Work Phone: [facility] 03-12-2024 16:13-0500 Systolic blood pressure 147 mm[Hg] Maria Elena Montalvo MD Work Phone: [facility] 03-09-2024 10:52-0500 Body temperature 97.9 [degF] Emelia Melendez MD [facility] 03-09-2024 10:52-0500 Diastolic blood pressure 86 mm[Hg] Emelia Melendez MD [facility] 03-09-2024 10:52-0500 Heart rate 76 /min Emelia Melendez MD [facility] 03-09-2024 10:52-0500 Respiratory rate 13 /min [facility] 03-09-2024 10:52-0500 SaO2% (BldA) [Mass fraction] 97 % Emelia Melendez MD [facility] 03-09-2024 10:52-0500 Systolic blood pressure 126 mm[Hg] Emelia Melendez MD [facility] 02-28-2024 04:05-0500 Body temperature 98.4 [degF] Maria Elena Montalvo MD Work Phone: [facility] 02-28-2024 04:05-0500 Diastolic blood pressure 75 mm[Hg] Maria Elena Montalvo MD Work Phone: [facility] 02-28-2024 04:05-0500 Heart rate 90 /min Maria Elena Montalvo MD Work Phone: [facility] 02-28-2024 04:05-0500 Respiratory rate 18 /min Maria Elena Montalvo MD Work Phone: [facility] 02-28-2024 04:05-0500 SaO2% (BldA) [Mass fraction] 96 % Maria Elena [facility]alvo MD [facility] 02-28-2024 04:05-0500 Systolic blood pressure 119 mm[Hg] Maria Elena Montalvo MD Work Phone: [employer] 02-20-2024 04:50-0500 Body temperature 99.3 [degF] [facility] Clare Rod DO Work Phone: [employer] 02-20-2024 04:50-0500 Diastolic blood pressure 84 mm[Hg] [facility] Clare Rod DO Work Phone: [employer] 02-20-2024 04:50-0500 Heart rate 116 /min [facility] Clare Rod DO Work Phone: [employer] 02-20-2024 04:50-0500 Respiratory rate 20 /min [facility] Clare Rod DO Work Phone: [employer] 02-20-2024 04:50-0500 SaO2% (BldA) [Mass fraction] 99 % [facility] Clare Rod DO Work Phone: [employer] 02-20-2024 04:50-0500 Systolic blood pressure 110 mm[Hg] [facility] Clare Rod DO Work Phone: [employer] 02-20-2024 04:48-0500 Body height 170.2 cm [facility] Clare Rod [employer] Work Phone: [employer] 02-20-2024 04:48-0500 Body mass index (BMI) [Ratio] 21.93 kg/m2 [facility] Clare Rod DO Work Phone: [employer] 02-20-2024 04:48-0500 Body weight 63.5 kg [facility] Clare Rod DO Work Phone: [employer] 02-12-2024 09:07-0500 Body height 170.2 cm Siddhartha Zarco MD Work Phone: [facility] 02-12-2024 09:07-0500 Body mass index (BMI) [Ratio] 22.71 kg/m2 Siddhartha Zarco MD Work Phone: [facility] 02-12-2024 09:07-0500 Body weight 65.77 kg Siddhartha Zarco MD Work Phone: [facility] 02-12-2024 09:07-0500 Diastolic blood pressure 87 mm[Hg] Siddhartha Zarco MD Work Phone: [facility] 02-12-2024 09:07-0500 Heart rate 88 /min Siddhartha Zarco MD Work Phone: [facility] 02-12-2024 09:07-0500 Respiratory rate 16 /min Siddhartha Zarco MD Work Phone: [facility] 02-12-2024 09:07-0500 SaO2% (BldA) [Mass fraction] 97 % Siddhartha Zarco MD Work Phone: [facility] 02-12-2024 09:07-0500 Systolic blood pressure 125 mm[Hg] Siddhartha Zarco MD Work Phone: [facility] 02-11-2024 03:38-0500 Diastolic blood pressure 105 mm[Hg] Kayode Glozman DO Work Phone: [employer] 02-11-2024 03:38-0500 Heart rate 99 /min Kayode Glozman DO Work Phone: [employer] 02-11-2024 03:38-0500 Respiratory rate 16 /min Kayode Glozman DO Work Phone: [employer] 02-11-2024 03:38-0500 SaO2% (BldA) [Mass fraction] 99 % Kayode Glozman DO Work Phone: [employer] 02-11-2024 03:38-0500 Systolic blood pressure 151 mm[Hg] Kayode Glozman DO Work Phone: [employer] 02-11-2024 03:29-0500 Body temperature 97.9 [degF] Kayode Glozman DO Work Phone: [facility] 02-10-2024 03:48-0500 Body height 170.2 cm Chris Kwan Work Phone: 7(550)[phone] [place] [address] 02-10-2024 03:48-0500 Body mass index (BMI) [Ratio] 21.93 kg/m2 Chris Tiwari MD Work Phone: 4(646)088-677497 [place] [address] 02-10-2024 03:48-0500 Body temperature 97.5 [degF] Chris Kwan Work Phone: 4(402)823-043297 [place] [address] 02-10-2024 03:48-0500 Body weight 63.5 kg Chris Kwan Work Phone: 4(736)[phone] [place] [address] 02-10-2024 03:48-0500 Diastolic blood pressure 88 mm[Hg] Chris Tiwari MD Work Phone: 7(758)716-912497 [place] [address] 02-10-2024 03:48-0500 Heart rate 96 /min Chris Kwan Work Phone: 0(063)552-305358 [place] [address] 02-10-2024 03:48-0500 Respiratory rate 16 /min Chris Kwan Work Phone: 3(529)179-772797 [place] [address] 02-10-2024 03:48-0500 SaO2% (BldA) [Mass fraction] 98 % Chris Tiwari MD Work Phone: 6(178)[phone] [place] [address] 02-10-2024 03:48-0500 Systolic blood pressure 124 mm[Hg] Chris Tiwari MD Work Phone: 1(563)[phone] [place] [address] 02-06-2024 02:38-0500 Body height 170.2 cm Brandy Kwan Work Phone: [facility] 02-06-2024 02:38-0500 Body mass index (BMI) [Ratio] 21.93 kg/m2 Brandy Sanches MD Work Phone: [employer] 02-06-2024 02:38-0500 Body temperature 97.9 [degF] Brandy Kwan Work Phone: [facility] [employer] 02-06-2024 02:38-0500 Body weight 63.5 kg Brandy Kwna Work Phone: [employer] 02-06-2024 02:38-0500 Diastolic blood pressure 92 mm[Hg] Brandy Sanches MD Work Phone: [employer] 02-06-2024 02:38-0500 Heart rate 95 /min Brandy Kwan Work Phone: [facility] [employer] 02-06-2024 02:38-0500 Respiratory rate 18 /min Brandy Kwan Work Phone: [employer] 02-06-2024 02:38-0500 SaO2% (BldA) [Mass fraction] 99 % Brandy Sanches MD Work Phone: [employer] 02-06-2024 02:38-0500 Systolic blood pressure 130 mm[Hg] Brandy Sanches MD Work Phone: [employer] 02-05-2024 03:24-0500 Body height 170.2 cm Jennifer Mae MD Work Phone: [employer] 02-05-2024 03:24-0500 Body mass index (BMI) [Ratio] 21.93 kg/m2 Jennifer Mae MD Work Phone: [employer] 02-05-2024 03:24-0500 Body weight 63.5 kg Jennifer Mae MD Work Phone: [employer] 02-05-2024 03:23-0500 Body temperature 97.9 [degF] Jennifer Mae MD Work Phone: [employer] 02-05-2024 03:23-0500 Diastolic blood pressure 82 mm[Hg] Jennifer Mae MD Work Phone: [facility] [employer] 02-05-2024 03:23-0500 Heart rate 94 /min Jennifer Mae MD Work Phone: [facility] [employer] 02-05-2024 03:23-0500 Respiratory rate 16 /min Jennifer Mae MD Work Phone: [facility] [employer] 02-05-2024 03:23-0500 SaO2% (BldA) [Mass fraction] 100 % Jennifer Mae MD Work Phone: [facility] [employer] 02-05-2024 03:23-0500 Systolic blood pressure 137 mm[Hg] Jennifer Mae MD Work Phone: [facility] [employer] 01-21-2024 17:15-0500 Body temperature 98.6 [degF] Earnest Shearer MD Work Phone: [facility] [employer] 01-21-2024 17:15-0500 Diastolic blood pressure 99 mm[Hg] Earnest Shearer MD Work Phone: [facility] [employer] 01-21-2024 17:15-0500 Heart rate 99 /min Earnest Shearer MD Work Phone: [facility] [employer] 01-21-2024 17:15-0500 Respiratory rate 18 /min Earnest Shearer MD Work Phone: [facility] [employer] 01-21-2024 17:15-0500 SaO2% (BldA) [Mass fraction] 98 % Earnest Shearer MD Work Phone: [facility] [employer] 01-21-2024 17:15-0500 Systolic blood pressure 160 mm[Hg] Earnest Shearer MD Work Phone: [facility] [employer] 01-21-2024 06:07-0500 Body height 170.2 cm Samuel Lopez MD Work Phone: [facility] [employer] 01-21-2024 06:07-0500 Body mass index (BMI) [Ratio] 21.93 kg/m2 Samuel Lopez MD Work Phone: [facility] 01-21-2024 06:07-0500 Body temperature 97.11 [degF] Samuel Lopez MD Work Phone: [facility] 01-21-2024 06:07-0500 Body weight 63.5 kg Samuel Lopez MD Work Phone: [facility] 01-21-2024 06:07-0500 Diastolic blood pressure 100 mm[Hg] Samuel Lopez MD Work Phone: [facility] 01-21-2024 06:07-0500 Heart rate 99 /min Samuel Lopez MD Work Phone: [facility] 01-21-2024 06:07-0500 Respiratory rate 18 /min Samuel Lopez MD Work Phone: [facility] 01-21-2024 06:07-0500 SaO2% (BldA) [Mass fraction] 99 % Samuel Lopez MD Work Phone: [facility] 01-21-2024 06:07-0500 Systolic blood pressure 143 mm[Hg] Samuel Lopez MD Work Phone: [facility] 01-20-2024 10:48-0500 Body height 170.2 cm Greg Zamarripa MD Work Phone: [facility] 01-20-2024 10:48-0500 Body mass index (BMI) [Ratio] 22.44 kg/m2 Greg Zamarripa MD Work Phone: [facility] 01-20-2024 10:48-0500 Body weight 65 kg Greg Zamarripa MD Work Phone: [facility] 01-20-2024 10:47-0500 Body temperature 97.59 [degF] Greg Zamarripa MD Work Phone: [facility] 01-20-2024 10:47-0500 Diastolic blood pressure 74 mm[Hg] Greg Zamarripa MD Work Phone: [facility] 01-20-2024 10:47-0500 Heart rate 84 /min Greg Zamarripa MD Work Phone: [facility] 01-20-2024 10:47-0500 Respiratory rate 18 /min Greg Zamarripa MD Work Phone: [facility] 01-20-2024 10:47-0500 SaO2% (BldA) [Mass fraction] 97 % Greg Zamarripa MD Work Phone: [facility] 01-20-2024 10:47-0500 Systolic blood pressure 132 mm[Hg] Greg Zamarripa MD Work Phone: [facility] 01-19-2024 16:07-0500 Diastolic blood pressure 92 mm[Hg] [facility] 01-19-2024 16:07-0500 Heart rate 94 /min [facility] 01-19-2024 16:07-0500 Respiratory rate 12 /min [facility] 01-19-2024 16:07-0500 Systolic blood pressure 145 mm[Hg] [facility] 01-19-2024 15:14-0500 Body temperature 98 [degF] [facility] 01-19-2024 15:14-0500 SaO2% (BldA) [Mass fraction] 98 % [facility] 01-18-2024 07:45-0500 Body height 170.2 cm Hu Hannah DO Work Phone: [facility] [employer] 01-18-2024 07:45-0500 Body mass index (BMI) [Ratio] 21.93 kg/m2 Hu Hannah DO Work Phone: [employer] 01-18-2024 07:45-0500 Body weight 63.5 kg Hu [facility] 01-18-2024 07:44-0500 Body temperature 98.6 [degF] Hu Hannah DO [facility] 01-18-2024 07:44-0500 Diastolic blood pressure 61 mm[Hg] Hu Hannah DO Work Phone: [facility] [employer] 01-18-2024 07:44-0500 Heart rate 95 /min Hu Hannah DO [facility] 01-18-2024 07:44-0500 Respiratory rate 16 /min Hu Hannah DO [facility] 01-18-2024 07:44-0500 SaO2% (BldA) [Mass fraction] 98 % Hu Hannah DO [facility] 01-18-2024 07:44-0500 Systolic blood pressure 122 mm[Hg] Hu Hannah DO [facility] 01-16-2024 03:00-0500 Body temperature 98.8 [degF] [facility] 01-16-2024 03:00-0500 Diastolic blood pressure 97 mm[Hg] [facility] 01-16-2024 03:00-0500 Heart rate 110 /min [facility] 01-16-2024 03:00-0500 Respiratory rate 20 /min [facility] 01-16-2024 03:00-0500 SaO2% (BldA) [Mass fraction] 99 % [facility] 01-16-2024 03:00-0500 Systolic blood pressure 145 mm[Hg] [facility] 01-14-2024 03:27-0500 Body temperature 97.4 [degF] [facility] 01-14-2024 03:27-0500 Diastolic blood pressure 83 mm[Hg] [facility] 01-14-2024 03:27-0500 Heart rate 93 /min [facility] 01-14-2024 03:27-0500 Respiratory rate 14 /min [facility] 01-14-2024 03:27-0500 SaO2% (BldA) [Mass fraction] 94 % [facility] 01-14-2024 03:27-0500 Systolic blood pressure 126 mm[Hg] [facility] 01-13-2024 08:43-0500 Body mass index (BMI) [Ratio] 21.93 kg/m2 Babs Thomas DO Work Phone: [facility] [employer] 01-13-2024 08:43-0500 Body weight 63.5 kg Babs Thomas DO [facility] 01-13-2024 08:33-0500 Body temperature 97.9 [degF] Babs Thomas DO Work Phone: [facility] [employer] 01-13-2024 08:33-0500 Diastolic blood pressure 92 mm[Hg] Babs Thomas DO Work Phone: [facility] [employer] 01-13-2024 08:33-0500 Heart rate 86 /min Babs Thomas DO Work Phone: [facility] [employer] 01-13-2024 08:33-0500 Respiratory rate 14 /min Babs Thomas DO [facility] 01-13-2024 08:33-0500 SaO2% (BldA) [Mass fraction] 98 % Babs Thomas DO Work Phone[facility] 01-13-2024 08:33-0500 Systolic blood pressure 162 mm[Hg] Babs Thomas DO Work Phone[facility] 01-10-2024 14:54-0500 Body height 170.2 cm Basem Selvin RACHEL Work Phone: [facility] 01-10-2024 14:54-0500 Body mass index (BMI) [Ratio] 21.93 kg/m2 Humairam Selvin RACHEL Work Phone: [facility] 01-10-2024 14:54-0500 Body temperature 97.9 [degF] Maria Elena Montalvo MD Work Phone: [facility] 01-10-2024 14:54-0500 Body weight 63.5 kg Humairam Selvin RACHEL Work Phone: [facility] 01-10-2024 14:54-0500 Diastolic blood pressure 72 mm[Hg] Maria Elena Montalvo MD Work Phone: [facility] 01-10-2024 14:54-0500 Heart rate 107 /min Maria Elena Montalvo MD Work Phone: [facility] 01-10-2024 14:54-0500 Respiratory rate 18 /min Humairam Selvin RACHEL Work Phone: [facility] 01-10-2024 14:54-0500 SaO2% (BldA) [Mass fraction] 97 % Maria Elena Montalvo MD Work Phone: [facility] 01-10-2024 14:54-0500 Systolic blood pressure 111 mm[Hg] Humairam Selvin RACHEL Work Phone: [facility] 01-09-2024 04:44-0500 Body temperature 98.4 [degF] Kayode Glozman DO Work Phone: [facility] [employer] 01-09-2024 04:44-0500 Diastolic blood pressure 79 mm[Hg] Kayode Glozman DO Work Phone: [facility] [employer] 01-09-2024 04:44-0500 Heart rate 89 /min Kayode Glozman DO [facility] 01-09-2024 04:44-0500 Respiratory rate 16 /min Kayode Glozman DO Work Phone: [facility] [employer] 01-09-2024 04:44-0500 SaO2% (BldA) [Mass fraction] 98 % Kayode Glozman DO Work Phone: [facility] [employer] 01-09-2024 04:44-0500 Systolic blood pressure 118 mm[Hg] Kayode Glozman DO [facility] 01-06-2024 20:52-0500 Diastolic blood pressure 74 mm[Hg] Samuel Lopez MD Work Phone: [facility] [employer] 01-06-2024 20:52-0500 Heart rate 84 /min Samuel Lopez MD Work Phone: [facility] [employer] 01-06-2024 20:52-0500 Respiratory rate 18 /min Samuel Lopez MD Work Phone: [facility] [employer] 01-06-2024 20:52-0500 SaO2% (BldA) [Mass fraction] 99 % Samuel Lopez MD Work Phone: [facility] [employer] 01-06-2024 20:52-0500 Systolic blood pressure 124 mm[Hg] Samuel Lopez MD Work Phone: [facility] [employer] 01-06-2024 17:22-0500 Body temperature 97.5 [degF] Samuel Lopez MD Work Phone: [facility] [employer] 01-04-2024 09:50-0400 Diastolic blood pressure 92 mm[Hg] [facility] 01-04-2024 09:50-0400 Heart rate 106 /min [facility] 01-04-2024 09:50-0400 Respiratory rate 18 /min [facility] 01-04-2024 09:50-0400 SaO2% (BldA) [Mass fraction] 99 % [facility] 01-04-2024 09:50-0400 Systolic blood pressure 134 mm[Hg] [facility] 01-04-2024 08:46-0400 Body height 170.18 cm [facility] 01-04-2024 08:46-0400 Body mass index (BMI) [Ratio] 22 kg/m2 [facility] 01-04-2024 08:46-0400 Body temperature 98 [degF] [facility] 01-04-2024 08:46-0400 Body weight 63.6 kg [facility] 12-29-2023 09:15-0400 Diastolic blood pressure 95 mm[Hg] Hu Hannah DO Work Phone: [facility] [employer] 12-29-2023 09:15-0400 Heart rate 80 /min Hu Hannah DO Work Phone: [facility] [employer] 12-29-2023 09:15-0400 Respiratory rate 18 /min Hu Hannah DO Work Phone: [facility] [employer] 12-29-2023 09:15-0400 SaO2% (BldA) [Mass fraction] 100 % Hu Hannah DO Work Phone: [facility] 12-29-2023 09:15-0400 Systolic blood pressure 164 mm[Hg] Hu Hannah DO Work Phone: [facility] 12-29-2023 07:35-0400 Body mass index (BMI) [Ratio] 21.93 kg/m2 Hu Hannah DO Work Phone: [facility] 12-29-2023 07:35-0400 Body weight 63.5 kg Hu Hannah DO Work Phone: [facility] 12-29-2023 07:27-0400 Body temperature 98.01 [degF] Hu Hannah DO Work Phone[facility] 12-22-2023 01:30-0400 Diastolic Blood Pressure Non-Invasive 79 mm[Hg] ARLYN VIDAL MD [facility] 12-22-2023 01:30-0400 Heart rate 90 /min ARLYN VIDAL MD [facility] 12-22-2023 01:30-0400 Respiratory rate 16 /min ARLYN VIDAL MD [facility] 12-22-2023 01:30-0400 Systolic Blood Pressure Non-Invasive 144 mm[Hg] ARLYN VIDAL MD [facility] 12-21-2023 23:16-0400 Body weight 64.3 kg ARLYN VIDAL MD [facility] 12-21-2023 23:16-0400 Diastolic Blood Pressure Non-Invasive 81 mm[Hg] ARLYN VIDAL MD [facility] 12-21-2023 23:16-0400 Heart rate 97 /min ARLYN VIDAL MD [facility] 12-21-2023 23:16-0400 Respiratory rate 18 /min ARLYN VIDAL MD [facility] 12-21-2023 23:16-0400 Systolic Blood Pressure Non-Invasive 114 mm[Hg] ARLYN VIDAL MD [facility] 12-20-2023 03:40-0400 Body height 170.2 cm Humairam Selvin RACHEL Work Phone: [phone] [place] [address] 12-20-2023 03:40-0400 Body mass index (BMI) [Ratio] 21.93 kg/m2 Maria Elena Montalvo MD Work Phone: [facility] 12-20-2023 03:40-0400 Body temperature 97.2 [degF] Humairam Selvin RACHEL Work Phone: [facility] 12-20-2023 03:40-0400 Body weight 63.5 kg Maria Elena Montalvo MD Work Phone: [facility] 12-20-2023 03:40-0400 Diastolic blood pressure 78 mm[Hg] Maria Elena Montalvo MD Work Phone: [facility] 12-20-2023 03:40-0400 Heart rate 102 /min Maria Elena Montalvo MD Work Phone: [facility] 12-20-2023 03:40-0400 Respiratory rate 18 /min Maria Elena Montalvo MD Work Phone: [facility] 12-20-2023 03:40-0400 SaO2% (BldA) [Mass fraction] 100 % Maria Elena Montalvo MD Work Phone: [facility] 12-20-2023 03:40-0400 Systolic blood pressure 130 mm[Hg] Maria Elena Montalvo MD Work Phone: [phone] [place] [address] 12-07-2023 08:21-0400 Body temperature 98.4 [degF] [facility] 12-07-2023 08:21-0400 Diastolic blood pressure 72 mm[Hg] [facility] 12-07-2023 08:21-0400 Heart rate 82 /min [facility] 12-07-2023 08:21-0400 Respiratory rate 14 /min [facility] 12-07-2023 08:21-0400 SaO2% (BldA) [Mass fraction] 99 % [facility] 12-07-2023 08:21-0400 Systolic blood pressure 126 mm[Hg] [facility] 12-07-2023 07:56-0400 Body weight 64 kg [facility] 12-03-2023 04:14-0400 Body temperature 98.4 [degF] Brandy Kwan Work Phone: [facility] 12-03-2023 04:14-0400 Diastolic blood pressure 76 mm[Hg] Brandy Sanches MD Work Phone: [facility] 12-03-2023 04:14-0400 Heart rate 105 /min Brandy Kwan Work Phone: [facility] 12-03-2023 04:14-0400 Respiratory rate 16 /min Brandy Kwan Work Phone: [facility] 12-03-2023 04:14-0400 SaO2% (BldA) [Mass fraction] 97 % Brandy Sanches MD Work Phone: [facility] 12-03-2023 04:14-0400 Systolic blood pressure 125 mm[Hg] Brandy Sanches MD Work Phone: [facility] 11-23-2023 15:57-0400 Diastolic blood pressure 89 mm[Hg] Jaime Davis Work Phone: [facility] 11-23-2023 15:57-0400 Heart rate 84 /min Jaime Davis Work Phone: [facility] 11-23-2023 15:57-0400 Respiratory rate 16 /min Jaime Davis Work Phone: [facility] 11-23-2023 15:57-0400 SaO2% (BldA) [Mass fraction] 98 % Jaime Davis Work Phone: [facility] 11-23-2023 15:57-0400 Systolic blood pressure 145 mm[Hg] Jaime Davis Work Phone: [facility] 11-23-2023 14:39-0400 Body height 170.18 cm Jaime Davis Work Phone: [facility] 11-23-2023 14:39-0400 Body temperature 97.52 [degF] Jaime Davis Work Phone: [facility] 11-23-2023 14:39-0400 Body weight 63.5 kg Jaime Davis Work Phone: [facility] 11-20-2023 09:42-0400 Body temperature 97.3 [degF] [facility] 11-20-2023 09:42-0400 Diastolic blood pressure 103 mm[Hg] [facility] 11-20-2023 09:42-0400 Heart rate 81 /min [facility] 11-20-2023 09:42-0400 Respiratory rate 16 /min [facility] 11-20-2023 09:42-0400 SaO2% (BldA) [Mass fraction] 96 % [facility] 11-20-2023 09:42-0400 Systolic blood pressure 141 mm[Hg] [facility] 11-10-2023 15:42-0400 Body height 170.18 cm [facility] 11-10-2023 15:42-0400 Body mass index (BMI) [Ratio] 21.8 kg/m2 [facility] 11-10-2023 15:42-0400 Body temperature 98.4 [degF] [facility] 11-10-2023 15:42-0400 Body weight 63 kg [facility] 11-10-2023 15:42-0400 Diastolic blood pressure 101 mm[Hg] [facility] 11-10-2023 15:42-0400 Heart rate 102 /min [facility] 11-10-2023 15:42-0400 Respiratory rate 20 /min [facility] 11-10-2023 15:42-0400 SaO2% (BldA) [Mass fraction] 99 % [facility] 11-10-2023 15:42-0400 Systolic blood pressure 154 mm[Hg] [facility] 10-27-2023 01:38-0400 Body temperature 98.4 [degF] Jose Resendes DO Work Phone: [employer] 10-27-2023 01:38-0400 Diastolic blood pressure 104 mm[Hg] Jose Resendes DO Work Phone: [employer] 10-27-2023 01:38-0400 Heart rate 118 /min Jose Resendes DO Work Phone: [employer] 10-27-2023 01:38-0400 Respiratory rate 18 /min [facility] 10-27-2023 01:38-0400 SaO2% (BldA) [Mass fraction] 100 % Jose Resendes DO Work Phone: [employer] 10-27-2023 01:38-0400 Systolic blood pressure 154 mm[Hg] Jose Resendes DO Work Phone: [employer] 10-26-2023 06:13-0400 Body height 170.18 cm DO Unknown [facility] Work Phone: 10-26-2023 06:13-0400 Body mass index (BMI) [Ratio] 21.9 kg/m2 DO Unknown [facility] Work Phone: 10-26-2023 06:13-0400 Body temperature 98 [degF] DO Unknown [facility] Work Phone: 10-26-2023 06:13-0400 Body weight 63.5 kg DO Unknown [facility] Work Phone: 10-26-2023 06:13-0400 Diastolic blood pressure 85 mm[Hg] DO Unknown [facility] Work Phone: 10-26-2023 06:13-0400 Heart rate 108 /min DO Unknown [facility] Work Phone: 10-26-2023 06:13-0400 Respiratory rate 20 /min DO Unknown PCP [facility] Work Phone: 10-26-2023 06:13-0400 SaO2% (BldA) [Mass fraction] 98 % DO Unknown [facility]CP [facility] Work Phone: 10-26-2023 06:13-0400 Systolic blood pressure 138 mm[Hg] DO Unknown [facility] Work Phone: 10-18-2023 11:21-0400 Diastolic blood pressure 99 mm[Hg] Basem Selvin RACHEL Work Phone: [employer] 10-18-2023 11:21-0400 Heart rate 85 /min Basem Selvin RACHEL Work Phone: [employer] 10-18-2023 11:21-0400 Respiratory rate 13 /min Humairam Selvin RACHEL Work Phone: [employer] 10-18-2023 11:21-0400 SaO2% (BldA) [Mass fraction] 100 % Baseedouard Montalvo MD Work Phone: [employer] 10-18-2023 11:21-0400 Systolic blood pressure 142 mm[Hg] Maria Elena Montalvo MD Work Phone: [employer] 10-18-2023 09:20-0400 Body mass index (BMI) [Ratio] 21.93 kg/m2 Maria Elena Montalvo MD Work Phone: [employer] 10-18-2023 09:20-0400 Body weight 63.5 kg Maria Elena Montalvo MD Work Phone: [employer] 10-18-2023 09:03-0400 Body temperature 97 [degF] Basem Selvin MD Work Phone: [facility] 10-17-2023 13:23-0400 Body temperature 98.01 [degF] Basem Selvin Other Phone: [facility] [employer] 10-17-2023 13:23-0400 Diastolic blood pressure 103 mm[Hg] Basem Selvin Other Phone: [facility] [employer] 10-17-2023 13:23-0400 Heart rate 109 /min Basem Selvin MD Other Phone: [facility] [employer] 10-17-2023 13:23-0400 Respiratory rate 20 /min Basem Selvin Other Phone: [facility] [employer] 10-17-2023 13:23-0400 SaO2% (BldA) [Mass fraction] 97 % Basem Selvin Other Phone: [facility] [employer] 10-17-2023 13:23-0400 Systolic blood pressure 154 mm[Hg] Basem Selvin Other Phone: [facility] [employer] 10-17-2023 13:22-0400 Body height 170.2 cm Basem Selvin Other Phone: [facility] [employer] 10-17-2023 13:22-0400 Body mass index (BMI) [Ratio] 21.93 kg/m2 Basem Selvin Other Phone: [facility] [employer] 10-17-2023 13:22-0400 Body weight 63.5 kg Basem Selvin Other Phone: [facility] [employer] 10-11-2023 11:20-0400 Diastolic blood pressure 91 mm[Hg] [facility] 10-11-2023 11:20-0400 Heart rate 85 /min [facility] 10-11-2023 11:20-0400 Systolic blood pressure 157 mm[Hg] [facility] 10-11-2023 10:30-0400 Respiratory rate 18 /min [facility] 10-11-2023 10:30-0400 SaO2% (BldA) [Mass fraction] 98 % [facility] 10-11-2023 09:47-0400 Body height 170.18 cm [facility] 10-11-2023 09:47-0400 Body mass index (BMI) [Ratio] 21.8 kg/m2 [facility] 10-11-2023 09:47-0400 Body temperature 97.5 [degF] [facility] 10-11-2023 09:47-0400 Body weight 63 kg [facility] 10-08-2023 13:18-0400 Diastolic blood pressure 79 mm[Hg] Jocelyne Albert MD Work Phone: 10-08-2023 13:18-0400 Heart rate 77 /min Jocelyne Albert MD Work Phone: 10-08-2023 13:18-0400 Respiratory rate 17 /min Jocelyne Albert MD Work Phone: 10-08-2023 13:18-0400 SaO2% (BldA) [Mass fraction] 99 % Jocelyne Albert MD Work Phone: 10-08-2023 13:18-0400 Systolic blood pressure 123 mm[Hg] Jocelyne Albert MD Work Phone: 09-30-2023 14:24-0400 Body height 170.18 cm Jaime Davis Work Phone: [facility] 09-30-2023 14:24-0400 Body temperature 98.78 [degF] Jaime Davis Work Phone: [facility] 09-30-2023 14:24-0400 Body weight 63.32 kg Jaime Davis Work Phone: [facility] 09-30-2023 14:24-0400 Diastolic blood pressure 98 mm[Hg] Jaime Davis Work Phone: [facility] 09-30-2023 14:24-0400 Heart rate 105 /min Jaime Davis Work Phone: [facility] 09-30-2023 14:24-0400 Respiratory rate 18 /min Jaime Davis Work Phone: [facility] 09-30-2023 14:24-0400 SaO2% (BldA) [Mass fraction] 100 % Jaime Davis Work Phone: [facility] 09-30-2023 14:24-0400 Systolic blood pressure 144 mm[Hg] Jaime Davis Work Phone: [facility] 09-29-2023 13:05-0400 Diastolic blood pressure 76 mm[Hg] Mariely Viera DO Work Phone: [facility] 09-29-2023 13:05-0400 Heart rate 95 /min Mariely Viera DO Work Phone: [facility] 09-29-2023 13:05-0400 Respiratory rate 20 /min Mariely Viera DO Work Phone: [facility] 09-29-2023 13:05-0400 SaO2% (BldA) [Mass fraction] 100 % Mariely Viera DO Work Phone: [facility] 09-29-2023 13:05-0400 Systolic blood pressure 130 mm[Hg] Mariely Viera DO Work Phone: [facility] 09-29-2023 10:04-0400 Body temperature 97.39 [degF] Mariely Viera DO Work Phone: [facility] 09-19-2023 09:40-0400 Diastolic blood pressure 75 mm[Hg] Nathan Prince MD Work Phone: [facility] 09-19-2023 09:40-0400 Heart rate 94 /min Nathan Prince MD Work Phone: [facility] 09-19-2023 09:40-0400 SaO2% (BldA) [Mass fraction] 96 % Nathan Prince MD Work Phone: [facility] 09-19-2023 09:40-0400 Systolic blood pressure 111 mm[Hg] Nathan Prince MD Work Phone: [facility] 09-15-2023 11:49-0400 Body temperature 97.81 [degF] Karen Rees MD Work Phone: [facility] 09-15-2023 11:49-0400 Diastolic blood pressure 84 mm[Hg] Karen Rees MD Work Phone: [facility] 09-15-2023 11:49-0400 Heart rate 97 /min Karen Rees MD Work Phone: [facility] 09-15-2023 11:49-0400 Respiratory rate 16 /min Karen Rees MD Work Phone: [facility] 09-15-2023 11:49-0400 SaO2% (BldA) [Mass fraction] 97 % Karen Rees MD Work Phone: [facility] 09-15-2023 11:49-0400 Systolic blood pressure 116 mm[Hg] Karen Rees MD Work Phone: [facility] 09-15-2023 09:29-0400 Body height 170.2 cm Jaime Davis MD Work Phone: [facility] 09-15-2023 09:29-0400 Body mass index (BMI) [Ratio] 21.93 kg/m2 Jaime Davis MD Work Phone: [facility] 09-15-2023 09:29-0400 Body temperature 97.39 [degF] Jaime Davis MD Work Phone: [facility] 09-15-2023 09:29-0400 Body weight 63.5 kg Jaime Davis MD Work Phone: [facility] 09-15-2023 09:29-0400 Diastolic blood pressure 76 mm[Hg] Jaime Davis MD Work Phone: [facility] 09-15-2023 09:29-0400 Heart rate 98 /min Jaime Davis MD Work Phone: [facility] 09-15-2023 09:29-0400 Respiratory rate 17 /min Jaime Davis MD Work Phone: [facility] 09-15-2023 09:29-0400 SaO2% (BldA) [Mass fraction] 100 % Jaime Davis MD Work Phone: [facility] 09-15-2023 09:29-0400 Systolic blood pressure 137 mm[Hg] Jaime Davis MD Work Phone: [facility] 09-06-2023 06:34-0400 Body height 170.2 cm Jaime Davis MD Work Phone: [facility] 09-06-2023 06:34-0400 Body mass index (BMI) [Ratio] 21.93 kg/m2 Jaime Davis MD Work Phone: [facility] 09-06-2023 06:34-0400 Body temperature 97.3 [degF] Jaime Davis MD Work Phone: [facility] 09-06-2023 06:34-0400 Body weight 63.5 kg Jaime Davis MD Work Phone: [facility] 09-06-2023 06:34-0400 Diastolic blood pressure 75 mm[Hg] Jaime Davis MD Work Phone: [facility] 09-06-2023 06:34-0400 Heart rate 89 /min Jaime Davis MD Work Phone: [facility] 09-06-2023 06:34-0400 Respiratory rate 16 /min Jaime Davis MD Work Phone: [facility] 09-06-2023 06:34-0400 SaO2% (BldA) [Mass fraction] 100 % Jaime Davis MD Work Phone: [facility] 09-06-2023 06:34-0400 Systolic blood pressure 123 mm[Hg] Jaime Davis MD Work Phone: [facility] 09-06-2023 05:07-0400 Body temperature 98.2 [degF] Lauren Batista MD Work Phone: [facility] 09-06-2023 05:07-0400 Body weight 63.5 kg Lauren Batista MD Work Phone: [facility] 09-06-2023 05:07-0400 Diastolic blood pressure 86 mm[Hg] Lauren Batista MD Work Phone: [facility] 09-06-2023 05:07-0400 Heart rate 99 /min Lauren Batista MD Work Phone: [facility] 09-06-2023 05:07-0400 Respiratory rate 16 /min Lauren Batista MD Work Phone: [facility] 09-06-2023 05:07-0400 SaO2% (BldA) [Mass fraction] 100 % Lauren Batista MD [facility] 09-06-2023 05:07-0400 Systolic blood pressure 139 mm[Hg] Lauren Batista MD Work Phone: [facility] 09-05-2023 07:12-0400 Diastolic blood pressure 60 mm[Hg] [facility] 09-05-2023 07:12-0400 Heart rate 89 /min [facility] 09-05-2023 07:12-0400 Respiratory rate 19 /min [facility] 09-05-2023 07:12-0400 SaO2% (BldA) [Mass fraction] 100 % [facility] 09-05-2023 07:12-0400 Systolic blood pressure 155 mm[Hg] [facility] 09-05-2023 05:40-0400 Body height 170.18 cm [facility] 09-05-2023 05:40-0400 Body mass index (BMI) [Ratio] 21.8 kg/m2 [facility] 09-05-2023 05:40-0400 Body temperature 97.4 [degF] [facility] 09-05-2023 05:40-0400 Body weight 63 kg [facility] 09-02-2023 11:30-0400 Body mass index (BMI) [Ratio] 21.93 kg/m2 Jae Sommer MD Work Phone: [facility] [employer] 09-02-2023 11:30-0400 Body weight 63.5 kg Jae Sommer MD Work Phone: [facility] [employer] 09-02-2023 11:24-0400 Body temperature 98.4 [degF] Jae Sommer MD Work Phone: [facility] [employer] 09-02-2023 11:24-0400 Diastolic blood pressure 72 mm[Hg] Jae Sommer MD Work Phone: [facility] [employer] 09-02-2023 11:24-0400 Heart rate 86 /min Jae Sommer MD Work Phone: [facility] [employer] 09-02-2023 11:24-0400 Respiratory rate 18 /min Jae Sommer MD Work Phone: [facility] [employer] 09-02-2023 11:24-0400 SaO2% (BldA) [Mass fraction] 97 % Jae Sommer MD Work Phone: [facility] [employer] 09-02-2023 11:24-0400 Systolic blood pressure 113 mm[Hg] Jae Sommer MD Work Phone: [facility] [employer] 08-20-2023 08:13-0400 Body height 170.2 cm Trisha Tenorio APRN.CNP Work Phone: 08-20-2023 08:13-0400 Body mass index (BMI) [Ratio] 21.93 kg/m2 Trisha Tenorio APRN.CNP Work Phone: 08-20-2023 08:13-0400 Body weight 63.5 kg Trisha Tenorio PAGE TECHNICIAN.BARRATTE OPERATOR Work Phone: 08-15-2023 10:45-0400 Diastolic Blood Pressure Non-Invasive 88 mm[Hg] BRO CASSIDYT DO [facility] 08-15-2023 10:45-0400 Heart rate 88 /min [facility] 08-15-2023 10:45-0400 Systolic Blood Pressure Non-Invasive 168 mm[Hg] BRO CASSIDYT DO [facility] 08-15-2023 06:58-0400 Diastolic Blood Pressure Non-Invasive 142 mm[Hg] BRO CASSIDYT DO [facility] 08-15-2023 06:58-0400 Systolic Blood Pressure Non-Invasive 173 mm[Hg] [facility] 08-15-2023 06:55-0400 Diastolic Blood Pressure Non-Invasive 135 mm[Hg] BRO CASSIDYT DO [facility] 08-15-2023 06:55-0400 Heart rate 88 /min BRO CASSIDYT [facility] 08-15-2023 06:55-0400 Systolic Blood Pressure Non-Invasive 163 mm[Hg] BRO CASSIDYT DO [facility] 08-15-2023 04:30-0400 Body temperature 97.52 [degF] BRO CASSIDYT DO [facility] 08-15-2023 04:30-0400 Body weight 62.8 kg BRO CASSIDYT DO [facility] 08-15-2023 04:30-0400 Heart rate 110 /min [facility] 08-15-2023 04:30-0400 Respiratory rate 20 /min [facility] 08-13-2023 15:56-0400 Diastolic blood pressure 78 mm[Hg] Jaime Davis MD Work Phone: [facility] 08-13-2023 15:56-0400 Systolic blood pressure 122 mm[Hg] Jaime Davis MD Work Phone: [facility] 08-13-2023 15:54-0400 Body height 170.2 cm Jaime Davis MD Work Phone: [facility] 08-13-2023 15:54-0400 Body mass index (BMI) [Ratio] 21.93 kg/m2 Jaime Davis MD Work Phone: [facility] 08-13-2023 15:54-0400 Body temperature 97.39 [degF] Jaime Davis MD Work Phone: [facility] 08-13-2023 15:54-0400 Body weight 63.5 kg Jaime Davis MD Work Phone: [facility] 08-13-2023 15:54-0400 Heart rate 117 /min Jaime Davis MD Work Phone: [facility] 08-13-2023 15:54-0400 Respiratory rate 18 /min Jaime Davis MD Work Phone: [facility] 08-13-2023 15:54-0400 SaO2% (BldA) [Mass fraction] 98 % Jaime Davis MD Work Phone: [facility] 08-13-2023 05:26-0400 Body height 162.6 cm [email or web address] 08-13-2023 05:26-0400 Body mass index (BMI) [Ratio] 24.03 kg/m2 [employer] [facility] 08-13-2023 05:26-0400 Body weight 63.5 kg [email or web address] 08-13-2023 05:25-0400 Body temperature 98.29 [degF] [email or web address] 08-13-2023 05:25-0400 Diastolic blood pressure 103 mm[Hg] [facility] [employer] [facility] 08-13-2023 05:25-0400 Heart rate 80 /min [employer] [facility] 08-13-2023 05:25-0400 Respiratory rate 20 /min [employer] [facility] 08-13-2023 05:25-0400 SaO2% (BldA) [Mass fraction] 99 % [facility] [employer] [facility] 08-13-2023 05:25-0400 Systolic blood pressure 180 mm[Hg] [facility] [employer] [facility] 08-12-2023 08:23-0400 Body height 162.6 cm Gillian Sosa DO Work Phone: [facility] 08-12-2023 08:23-0400 Body mass index (BMI) [Ratio] 25.06 kg/m2 Gillian Sosa DO Work Phone: [facility] 08-12-2023 08:23-0400 Body temperature 98.2 [degF] Gillian Sosa DO Work Phone: [facility] 08-12-2023 08:23-0400 Body weight 66.22 kg Gillian Sosa DO Work Phone: [facility] 08-12-2023 08:23-0400 Diastolic blood pressure 88 mm[Hg] Gillian Sosa DO Work Phone: [facility] 08-12-2023 08:23-0400 Heart rate 113 /min Gillian Sosa DO Work Phone: [facility] 08-12-2023 08:23-0400 Respiratory rate 19 /min Gillian Sosa DO Work Phone: [facility] 08-12-2023 08:23-0400 SaO2% (BldA) [Mass fraction] 98 % Gillian Sosa DO Work Phone: [facility] 08-12-2023 08:23-0400 Systolic blood pressure 152 mm[Hg] Gillian Shoemakerrey DO Work Phone: [facility] 08-10-2023 11:21-0400 Body temperature 97.7 [degF] Nuno Voll DO Work Phone: [facility] 08-10-2023 11:21-0400 Diastolic blood pressure 84 mm[Hg] Nuno Voll DO Work Phone: [facility] 08-10-2023 11:21-0400 Heart rate 101 /min Nuno Voll DO Work Phone: [facility] 08-10-2023 11:21-0400 Respiratory rate 20 /min Nuno Voll DO Work Phone: [facility] 08-10-2023 11:21-0400 SaO2% (BldA) [Mass fraction] 100 % Nuno Voll DO Work Phone: [facility] 08-10-2023 11:21-0400 Systolic blood pressure 150 mm[Hg] Nuno Voll DO Work Phone: [facility] 08-10-2023 09:37-0400 Body height 170.18 cm Babs Lou Work Phone: [facility] 08-10-2023 09:37-0400 Body temperature 98.06 [degF] Babs Lou Work Phone: [facility] 08-10-2023 09:37-0400 Body weight 63.04 kg Babs Lou Work Phone: [facility] 08-10-2023 09:37-0400 Diastolic blood pressure 95 mm[Hg] Babs Lou Work Phone: [facility] 08-10-2023 09:37-0400 Heart rate 106 /min Babs Lou Work Phone: [facility] 08-10-2023 09:37-0400 Respiratory rate 18 /min Babs Lou Work Phone: [facility] 08-10-2023 09:37-0400 SaO2% (BldA) [Mass fraction] 100 % Babs Lou Work Phone: [facility] 08-10-2023 09:37-0400 Systolic blood pressure 167 mm[Hg] Babs Lou Work Phone: [facility] 08-06-2023 06:19-0400 Body temperature 98.2 [degF] Rosalie Vesta DO Work Phone: [facility] 08-06-2023 06:19-0400 Diastolic blood pressure 100 mm[Hg] [facility] 08-06-2023 06:19-0400 Heart rate 112 /min Rosalie [facility]esta DO [facility]: [facility] 08-06-2023 06:19-0400 Respiratory rate 18 /min Rosalie Chevy [facility] 08-06-2023 06:19-0400 SaO2% (BldA) [Mass fraction] 98 % Rosalie Vesta DO [facility] 08-06-2023 06:19-0400 Systolic blood pressure 149 mm[Hg] Rosalie [facility]esta DO [facility] 08-01-2023 08:24-0400 Diastolic blood pressure 79 mm[Hg] [facility] 08-01-2023 08:24-0400 Heart rate 89 /min [facility] 08-01-2023 08:24-0400 Respiratory rate 18 /min [facility] 08-01-2023 08:24-0400 SaO2% (BldA) [Mass fraction] 99 % [facility] 08-01-2023 08:24-0400 Systolic blood pressure 120 mm[Hg] [facility] 08-01-2023 06:36-0400 Body height 170.18 cm [facility] 08-01-2023 06:36-0400 Body mass index (BMI) [Ratio] 22.3 kg/m2 [facility] 08-01-2023 06:36-0400 Body temperature 97.9 [degF] [facility] 08-01-2023 06:36-0400 Body weight 64.7 kg [facility] 07-12-2023 05:45-0400 Body temperature 97.1 [degF] [facility] 07-12-2023 05:45-0400 Diastolic blood pressure 92 mm[Hg] [facility] 07-12-2023 05:45-0400 Heart rate 110 /min [facility] 07-12-2023 05:45-0400 Respiratory rate 18 /min [facility] 07-12-2023 05:45-0400 SaO2% (BldA) [Mass fraction] 99 % [facility] 07-12-2023 05:45-0400 Systolic blood pressure 169 mm[Hg] [facility] 07-12-2023 04:46-0400 Body height 170.18 cm [facility] 07-12-2023 04:46-0400 Body mass index (BMI) [Ratio] 9.9 kg/m2 [facility] 07-12-2023 04:46-0400 Body weight 28.89 kg [facility] 07-09-2023 08:34-0400 Body mass index (BMI) [Ratio] 21.93 kg/m2 Shady Jeremy DO Work Phone: [facility] 07-09-2023 08:34-0400 Body weight 63.5 kg Shady Jeremy DO Work Phone: [facility] 07-09-2023 08:22-0400 Body temperature 98.29 [degF] Shady Jeremy DO Work Phone: [facility] 07-09-2023 08:22-0400 Diastolic blood pressure 106 mm[Hg] Shady Jeremy DO Work Phone: [facility] 07-09-2023 08:22-0400 Heart rate 92 /min Shady Jeremy DO Work Phone: [facility] 07-09-2023 08:22-0400 Respiratory rate 16 /min Shady Jeremy DO Work Phone: [facility] 07-09-2023 08:22-0400 SaO2% (BldA) [Mass fraction] 97 % Shadyyessi Suarez DO Work Phone: [facility] 07-09-2023 08:22-0400 Systolic blood pressure 160 mm[Hg] Shady Suarez DO Work Phone: [facility] 06-15-2023 14:22-0400 Diastolic blood pressure 79 mm[Hg] Babs Lou [facility] 06-15-2023 14:22-0400 Heart rate 75 /min Babs Lou [facility] 06-15-2023 14:22-0400 Respiratory rate 18 /min Babs Lou [facility] 06-15-2023 14:22-0400 SaO2% (BldA) [Mass fraction] 100 % Babs Lou [facility] 06-15-2023 14:22-0400 Systolic blood pressure 131 mm[Hg] Babs Lou [facility] 06-15-2023 12:22-0400 Diastolic blood pressure 79 mm[Hg] Babs Lou Work Phone: [facility] 06-15-2023 12:22-0400 Heart rate 75 /min Babs Lou Work Phone: [facility] 06-15-2023 12:22-0400 Respiratory rate 18 /min Babs Lou Work Phone: [facility] 06-15-2023 12:22-0400 SaO2% (BldA) [Mass fraction] 100 % Babs Lou Work Phone: [facility] 06-15-2023 12:22-0400 Systolic blood pressure 131 mm[Hg] Babs Lou Work Phone: [facility] 06-15-2023 11:29-0400 Body temperature 98 [degF] Babs Carmine [facility] 06-15-2023 11:29-0400 Body weight 63.049 Babs Lou [facility] 06-15-2023 09:29-0400 Body temperature 98.06 [degF] Babs Carmine Work Phone: [facility] 06-15-2023 09:29-0400 Body weight 63.04 kg Babs Carmine Work Phone: [facility] 06-02-2023 04:43-0400 Body height 170.18 cm [facility] 06-02-2023 04:43-0400 Body mass index (BMI) [Ratio] 24.9 kg/m2 [facility] 06-02-2023 04:43-0400 Body temperature 96.4 [degF] [facility] 06-02-2023 04:43-0400 Body weight 72 kg [facility] 06-02-2023 04:43-0400 Diastolic blood pressure 118 mm[Hg] [facility] 06-02-2023 04:43-0400 Heart rate 88 /min [facility] 06-02-2023 04:43-0400 Respiratory rate 20 /min [facility] 06-02-2023 04:43-0400 SaO2% (BldA) [Mass fraction] 100 % [facility] 06-02-2023 04:43-0400 Systolic blood pressure 143 mm[Hg] [facility] 06-02-2023 03:35-0400 Body height 170.18 cm Jaime Davis Work Phone: [facility] 06-02-2023 03:35-0400 Body weight 61.24 kg Jaime Davis Work Phone: [facility] 06-02-2023 03:06-0400 Body temperature 97.9 [degF] Jaime Davis Work Phone: [facility] 06-02-2023 03:06-0400 Diastolic blood pressure 97 mm[Hg] Jaime Davis Work Phone: [facility] 06-02-2023 03:06-0400 Heart rate 98 /min Jaime Davis Work Phone: [facility] 06-02-2023 03:06-0400 Respiratory rate 16 /min Jaime Davis Work Phone: [facility] 06-02-2023 03:06-0400 SaO2% (BldA) [Mass fraction] 100 % Jaime Jones Work Phone: [facility] 06-02-2023 03:06-0400 Systolic blood pressure 164 mm[Hg] Jaime Davis Work Phone: [facility] 05-31-2023 09:45-0400 Body height 170.2 cm Maria Elena Montalvo MD Work Phone: [facility] [employer] 05-31-2023 09:45-0400 Body mass index (BMI) [Ratio] 21.14 kg/m2 Maria Elena Montalvo MD Work Phone: [facility] [employer] 05-31-2023 09:45-0400 Body weight 61.24 kg Maria Elena Montalvo MD Work Phone: [facility] [employer] 05-31-2023 09:45-0400 Diastolic blood pressure 99 mm[Hg] Maria Elena Montalvo MD Work Phone: [facility] [employer] 05-31-2023 09:45-0400 Heart rate 99 /min Maria Elena Montalvo MD Work Phone: [facility] [employer] 05-31-2023 09:45-0400 Respiratory rate 18 /min Maria Elena Montalvo MD Work Phone: [facility] [employer] 05-31-2023 09:45-0400 SaO2% (BldA) [Mass fraction] 100 % Basem Selvin MD Work Phone: [facility] 05-31-2023 09:45-0400 Systolic blood pressure 157 mm[Hg] Maria Elena Montalvo MD Work Phone: [facility] 05-31-2023 09:38-0400 Body temperature 97.2 [degF] Maria Elena Montalvo MD Work Phone: [facility] 05-30-2023 17:34-0400 Body temperature 97.9 [degF] [facility] 05-30-2023 17:34-0400 Diastolic blood pressure 78 mm[Hg] [facility] 05-30-2023 17:34-0400 Heart rate 80 /min [facility] 05-30-2023 17:34-0400 Respiratory rate 16 /min [facility] 05-30-2023 17:34-0400 SaO2% (BldA) [Mass fraction] 100 % [facility] 05-30-2023 17:34-0400 Systolic blood pressure 140 mm[Hg] [facility] 05-30-2023 15:49-0400 Body height 170.18 cm [facility] 05-30-2023 15:49-0400 Body mass index (BMI) [Ratio] 21.1 kg/m2 [facility] 05-30-2023 15:49-0400 Body weight 61.23 kg [facility] 05-24-2023 05:25-0400 Body temperature 97.59 [degF] Jessica Velázquez DO Work Phone: [facility] 05-24-2023 05:25-0400 Diastolic blood pressure 90 mm[Hg] Jessica Velázquez DO Work Phone: [facility] 05-24-2023 05:25-0400 Heart rate 103 /min Jessica Velázquez DO Work Phone: [facility] 05-24-2023 05:25-0400 Respiratory rate 18 /min Jessica Velázquez DO Work Phone: [facility] 05-24-2023 05:25-0400 SaO2% (BldA) [Mass fraction] 99 % Jessica Velázquez DO Work Phone: [facility] [employer] 05-24-2023 05:25-0400 Systolic blood pressure 130 mm[Hg] Jessica Velázquez DO Work Phone: [facility] 05-24-2023 05:24-0400 Body height 170.2 cm Jessica Velázquez DO Work Phone: [facility] 05-24-2023 05:24-0400 Body mass index (BMI) [Ratio] 21.14 kg/m2 Jessica Velázquez DO Work Phone: [facility] [employer] 05-24-2023 05:24-0400 Body weight 61.24 kg Jessica Velázquez DO Work Phone: [facility] 05-17-2023 11:29-0400 Diastolic blood pressure 92 mm[Hg] [facility] 05-17-2023 11:29-0400 Heart rate 99 /min [facility] 05-17-2023 11:29-0400 Respiratory rate 20 /min [facility] 05-17-2023 11:29-0400 SaO2% (BldA) [Mass fraction] 100 % [facility] 05-17-2023 11:29-0400 Systolic blood pressure 142 mm[Hg] [facility] 05-17-2023 08:26-0400 Body height 162.56 cm [facility] 05-17-2023 08:26-0400 Body mass index (BMI) [Ratio] 24.6 kg/m2 [facility] 05-17-2023 08:26-0400 Body temperature 98 [degF] [facility] 05-17-2023 08:26-0400 Body weight 65 kg [facility] 05-16-2023 06:08-0400 Diastolic Blood Pressure Non-Invasive 90 mm[Hg] RYANNE HENLEY MD [facility] 05-16-2023 06:08-0400 Heart rate 104 /min RYANNE HENLEY MD [facility] 05-16-2023 06:08-0400 Respiratory rate 18 /min RYANNE HENLEY MD [facility] 05-16-2023 06:08-0400 Systolic Blood Pressure Non-Invasive 128 mm[Hg] RYANNE HENLEY MD [facility] 05-16-2023 04:33-0400 Body temperature 98.06 [degF] RYANNE HENLEY MD [facility] 05-16-2023 04:33-0400 Body weight 63.5 kg RYANNE HENLEY MD [facility] 05-16-2023 04:33-0400 Diastolic Blood Pressure Non-Invasive 90 mm[Hg] RYANNE HENLEY MD [facility] 05-16-2023 04:33-0400 Heart rate 122 /min RYANNE HENLEY MD [facility] 05-16-2023 04:33-0400 Respiratory rate 18 /min RYANNE HENLEY MD [facility] 05-16-2023 04:33-0400 Systolic Blood Pressure Non-Invasive 129 mm[Hg] RYANNE HENLEY MD [facility] 05-06-2023 17:07-0500 Diastolic blood pressure 71 mm[Hg] Bro Mckinley Work Phone: [employer] 05-06-2023 17:07-0500 Heart rate 98 /min Bro Mckinley DO Work Phone: [employer] 05-06-2023 17:07-0500 Systolic blood pressure 109 mm[Hg] Bro Mckinley Work Phone: [employer] 05-06-2023 13:48-0500 Body height 170.2 cm Bro Leungrell Work Phone: [employer] 05-06-2023 13:48-0500 Body mass index (BMI) [Ratio] 21.14 kg/m2 Bro Mckinley Work Phone: [facility] [employer] 05-06-2023 13:48-0500 Body temperature 98.8 [degF] Bro Mckinley DO Work Phone: [facility] [employer] 05-06-2023 13:48-0500 Body weight 61.24 kg Bro Mckinley DO Work Phone: [facility] [employer] 05-06-2023 13:48-0500 Respiratory rate 16 /min Bro Mckinley DO Work Phone: [facility] [employer] 05-06-2023 13:48-0500 SaO2% (BldA) [Mass fraction] 100 % Bro Mckinley DO Work Phone: [facility] [employer] 04-25-2023 12:52-0500 Diastolic blood pressure 68 mm[Hg] Jae Sommer MD Work Phone: [facility] [employer] 04-25-2023 12:52-0500 Heart rate 84 /min Jae Sommer MD Work Phone: [facility] [employer] 04-25-2023 12:52-0500 Respiratory rate 14 /min Jae Sommer MD Work Phone: [facility] [employer] 04-25-2023 12:52-0500 SaO2% (BldA) [Mass fraction] 100 % Jae Sommer MD Work Phone: [facility] [employer] 04-25-2023 12:52-0500 Systolic blood pressure 116 mm[Hg] Jae Sommer MD Work Phone: [facility] [employer] 04-25-2023 11:07-0500 Body temperature 98.4 [degF] Jae Sommer MD Work Phone: [facility] [facility] [employer] 04-04-2023 08:14-0500 Diastolic blood pressure 90 mm[Hg] [facility] 04-04-2023 08:14-0500 Heart rate 94 /min [facility] 04-04-2023 08:14-0500 Respiratory rate 18 /min [facility] 04-04-2023 08:14-0500 SaO2% (BldA) [Mass fraction] 98 % [facility] 04-04-2023 08:14-0500 Systolic blood pressure 130 mm[Hg] [facility] 04-04-2023 06:33-0500 Body temperature 97.2 [degF] [facility] 04-04-2023 06:31-0500 Body height 170.18 cm [facility] 04-04-2023 06:31-0500 Body mass index (BMI) [Ratio] 21.1 kg/m2 [facility] 04-04-2023 06:31-0500 Body weight 61 kg [facility] 03-30-2023 18:11-0500 Body temperature 97.5 [degF] Lilibeth Michelle DO [facility] Phone[facility] 03-30-2023 18:11-0500 Diastolic blood pressure 76 mm[Hg] Lilibeth Michelle DO [facility] Phone[facility] 03-30-2023 18:11-0500 Heart rate 98 /min Lilibeth Michelle DO Work Phone: [employer] 03-30-2023 18:11-0500 Respiratory rate 19 /min Lilibeth Michelle DO Work Phone: [employer] 03-30-2023 18:11-0500 SaO2% (BldA) [Mass fraction] 99 % Lilibeth Michelle DO [facility] 03-30-2023 18:11-0500 Systolic blood pressure 110 mm[Hg] Lilibeth Michelle DO Work Phone: [facility] [employer] 03-10-2023 04:40-0500 Body height 170.2 cm Saul Kuhn MD Work Phone: [facility] 03-10-2023 04:40-0500 Body mass index (BMI) [Ratio] 21.14 kg/m2 Saul Kuhn MD Work Phone: [facility] 03-10-2023 04:40-0500 Body temperature 97.39 [degF] Saul Kuhn MD Work Phone: [facility] 03-10-2023 04:40-0500 Body weight 61.24 kg Saul Kuhn MD Work Phone: [facility] 03-10-2023 04:40-0500 Diastolic blood pressure 81 mm[Hg] Saul Kuhn MD Work Phone: [facility] 03-10-2023 04:40-0500 Heart rate 100 /min Saul Kuhn MD Work Phone: [facility] 03-10-2023 04:40-0500 Respiratory rate 18 /min Saul Kuhn MD Work Phone: [facility] 03-10-2023 04:40-0500 SaO2% (BldA) [Mass fraction] 99 % Saul Kuhn MD Work Phone: [facility] 03-10-2023 04:40-0500 Systolic blood pressure 113 mm[Hg] Saul Kuhn MD Work Phone: [facility] 03-07-2023 07:56-0500 Diastolic blood pressure 81 mm[Hg] Jaime Davis Work Phone: [facility] 03-07-2023 07:56-0500 Heart rate 95 /min Jaime Davis Work Phone: [facility] 03-07-2023 07:56-0500 Respiratory rate 18 /min Jaime Davis Work Phone: [facility] 03-07-2023 07:56-0500 SaO2% (BldA) [Mass fraction] 97 % Jaime Davis Work Phone: [facility] 03-07-2023 07:56-0500 Systolic blood pressure 116 mm[Hg] Jaime Davis Work Phone: [facility] 03-07-2023 07:37-0500 Body height 170.18 cm Jaime Davis Work Phone: [facility] 03-07-2023 07:37-0500 Body weight 61.24 kg Jaime Davis Work Phone: [facility] 03-07-2023 02:04-0500 Body temperature 97.7 [degF] Jaime Davis Work Phone: [facility] 03-05-2023 16:37-0500 Body temperature 97.59 [degF] Lilibeth Martinez DO [facility] Phone[facility] 03-05-2023 16:37-0500 Diastolic blood pressure 102 mm[Hg] Lilibeth Martinez DO Work Phone: [employer] 03-05-2023 16:37-0500 Heart rate 98 /min Lilibeth Martinez DO Work Phone: [employer] 03-05-2023 16:37-0500 Respiratory rate 18 /min Lilibeth Martinez DO Work Phone: [employer] 03-05-2023 16:37-0500 SaO2% (BldA) [Mass fraction] 99 % Lilibeth Martinez DO Work Phone: [employer] 03-05-2023 16:37-0500 Systolic blood pressure 175 mm[Hg] Lilibeth Martinez DO Work Phone: [employer] 03-04-2023 11:31-0500 Body height 170.2 cm Jessenia Ramirezjoy Work Phone: [employer] 03-04-2023 11:31-0500 Body mass index (BMI) [Ratio] 21.14 kg/m2 Jessenia Miller DO Work Phone: [employer] 03-04-2023 11:31-0500 Body temperature 99 [degF] Jessenia Miller DO Work Phone: [facility] [employer] 03-04-2023 11:31-0500 Body weight 61.24 kg Jessenia Miller DO Work Phone: [facility] [employer] 03-04-2023 11:31-0500 Diastolic blood pressure 92 mm[Hg] Jessenia Miller DO Work Phone: [facility] [employer] 03-04-2023 11:31-0500 Heart rate 105 /min Jessenia Miller DO Work Phone: [facility] [employer] 03-04-2023 11:31-0500 Respiratory rate 16 /min Jessenia Miller DO Work Phone: [facility] [employer] 03-04-2023 11:31-0500 SaO2% (BldA) [Mass fraction] 99 % Jessenia Miller DO Work Phone: [facility] [employer] 03-04-2023 11:31-0500 Systolic blood pressure 132 mm[Hg] Jessenia Miller DO Work Phone: [facility] [employer] 02-09-2023 15:42-0500 Body temperature 98.2 [degF] Tapan Bacon MD Work Phone: [facility] [employer] 02-09-2023 15:42-0500 Diastolic blood pressure 92 mm[Hg] Tapan Bacon MD Work Phone: [facility] [employer] 02-09-2023 15:42-0500 Heart rate 104 /min Tapan Bacon MD Work Phone: [facility] [employer] 02-09-2023 15:42-0500 Respiratory rate 20 /min Tapan Bacon MD Work Phone: [employer] 02-09-2023 15:42-0500 SaO2% (BldA) [Mass fraction] 100 % Tapan Bacon MD Work Phone: [facility] [employer] 02-09-2023 15:42-0500 Systolic blood pressure 150 mm[Hg] Tapan Bacon MD Work Phone: [facility] [employer] 02-07-2023 17:45-0500 Body temperature 98.2 [degF] Jaime Davis [facility] 02-07-2023 17:45-0500 Body weight 60.328 Jaime Davis [facility] 02-07-2023 17:45-0500 Diastolic blood pressure 85 mm[Hg] Jaime Davis [facility] 02-07-2023 17:45-0500 Heart rate 99 /min Jaime Davis [facility] 02-07-2023 17:45-0500 Respiratory rate 16 /min Jaime Davis [facility] 02-07-2023 17:45-0500 SaO2% (BldA) [Mass fraction] 100 % Jaime Davis [facility] 02-07-2023 17:45-0500 Systolic blood pressure 125 mm[Hg] Jaime Davis [facility] 02-07-2023 15:45-0500 Body temperature 98.24 [degF] Babs Lou Work Phone: [facility] 02-07-2023 15:45-0500 Body weight 60.32 kg Babs Lou Work Phone: [facility] 02-07-2023 15:45-0500 Diastolic blood pressure 85 mm[Hg] Babs Lou Work Phone: [facility] 02-07-2023 15:45-0500 Heart rate 99 /min Babs Lou Work Phone: [facility] 02-07-2023 15:45-0500 Respiratory rate 16 /min Babs Lou Work Phone: [facility] 02-07-2023 15:45-0500 SaO2% (BldA) [Mass fraction] 100 % Babs Lou Work Phone: [facility] 02-07-2023 15:45-0500 Systolic blood pressure 125 mm[Hg] Babs Lou Work Phone: [facility] 02-05-2023 17:38-0500 Diastolic blood pressure 70 mm[Hg] Jaime Davis MD Work Phone: [facility] 02-05-2023 17:38-0500 Heart rate 90 /min Jaime Davis MD Work Phone: [facility] 02-05-2023 17:38-0500 Respiratory rate 20 /min Jaime Davis MD Work Phone: [facility] 02-05-2023 17:38-0500 SaO2% (BldA) [Mass fraction] 98 % Jaime Davis MD Work Phone: [facility] 02-05-2023 17:38-0500 Systolic blood pressure 138 mm[Hg] Jaime Davis MD Work Phone: [facility] 02-05-2023 16:09-0500 Body height 170.2 cm Jaime Davis MD Work Phone: [facility] 02-05-2023 16:09-0500 Body mass index (BMI) [Ratio] 21.14 kg/m2 Jaime Davis MD Work Phone: [facility] 02-05-2023 16:09-0500 Body temperature 98.29 [degF] Jaime Davis MD Work Phone: [facility] 02-05-2023 16:09-0500 Body weight 61.24 kg Jaime Davis MD Work Phone: [facility] 12-23-2022 15:29-0400 Body temperature 97.52 [degF] Babs Lou Work Phone: [facility] 12-23-2022 15:29-0400 Body weight 60.69 kg Babs Lou Work Phone: [facility] 12-23-2022 15:29-0400 Diastolic blood pressure 90 mm[Hg] Babs Lou Work Phone: [facility] 12-23-2022 15:29-0400 Heart rate 107 /min Babs Lou Work Phone: [facility] 12-23-2022 15:29-0400 Respiratory rate 20 /min Babs Lou Work Phone: [facility] 12-23-2022 15:29-0400 SaO2% (BldA) [Mass fraction] 100 % Babs Lou Work Phone: [facility] 12-23-2022 15:29-0400 Systolic blood pressure 132 mm[Hg] Babs Lou Work Phone: [facility] 12-21-2022 15:49-0400 Diastolic blood pressure 76 mm[Hg] Jaime Davis Work Phone: [facility] 12-21-2022 15:49-0400 Heart rate 90 /min Jaime Davis Work Phone: [facility] 12-21-2022 15:49-0400 Respiratory rate 20 /min Jaime Davis Work Phone: [facility] 12-21-2022 15:49-0400 SaO2% (BldA) [Mass fraction] 100 % Jaime Davis Work Phone: [facility] 12-21-2022 15:49-0400 Systolic blood pressure 150 mm[Hg] Jaime Davis Work Phone: [facility] 12-21-2022 14:32-0400 Body height 170.18 cm Jaime Davis Work Phone: [facility] 12-21-2022 14:32-0400 Body weight 61.24 kg Jaime Davis Work Phone: [facility] 12-21-2022 13:21-0400 Body temperature 97.9 [degF] Jaime Davis Work Phone: [facility] 12-04-2022 09:17-0400 Body height 170 cm Saul Kuhn MD Work Phone: [facility] 12-04-2022 09:17-0400 Body mass index (BMI) [Ratio] 21.11 kg/m2 Saul Kuhn MD Work Phone: [facility] 12-04-2022 09:17-0400 Body temperature 98.01 [degF] Saul Kuhn MD Work Phone: [facility] 12-04-2022 09:17-0400 Body weight 61 kg Saul Kuhn MD Work Phone: [facility] 12-04-2022 09:17-0400 Diastolic blood pressure 80 mm[Hg] Saul Kuhn MD Work Phone: [facility] 12-04-2022 09:17-0400 Heart rate 88 /min Saul Kuhn MD Work Phone: [facility] 12-04-2022 09:17-0400 Respiratory rate 18 /min Saul Kuhn MD Work Phone: [facility] 12-04-2022 09:17-0400 SaO2% (BldA) [Mass fraction] 99 % Saul Kuhn MD Work Phone: [facility] 12-04-2022 09:17-0400 Systolic blood pressure 123 mm[Hg] Saul Kuhn MD Work Phone: [facility] 11-25-2022 14:35-0400 Diastolic blood pressure 82 mm[Hg] Jaime Davis Work Phone: [facility] 11-25-2022 14:35-0400 Heart rate 82 /min Jaime Davis Work Phone: [facility] 11-25-2022 14:35-0400 Respiratory rate 18 /min Jaime Davis Work Phone: [facility] 11-25-2022 14:35-0400 SaO2% (BldA) [Mass fraction] 99 % Jaime Davis Work Phone: [facility] 11-25-2022 14:35-0400 Systolic blood pressure 126 mm[Hg] Jaime Davis Work Phone: [facility] 11-25-2022 11:16-0400 Body height 170.18 cm Jaime Davis Work Phone: [facility] 11-25-2022 11:16-0400 Body weight 61.24 kg Jaime Davis Work Phone: [facility] 11-25-2022 10:50-0400 Body temperature 97.8 [degF] Jaime Davis Work Phone: [facility] 11-19-2022 20:42-0400 Body temperature 97.1 [degF] Jaime Davis [facility] 11-19-2022 20:42-0400 Body weight 61.235 Jaime Davis [facility] 11-19-2022 20:42-0400 Diastolic blood pressure 91 mm[Hg] Jaime Davis [facility] 11-19-2022 20:42-0400 Heart rate 87 /min Jaime Davis [facility] 11-19-2022 20:42-0400 Respiratory rate 19 /min Jaime Davis [facility] 11-19-2022 20:42-0400 SaO2% (BldA) [Mass fraction] 99 % Jaime Davis [facility] 11-19-2022 20:42-0400 Systolic blood pressure 131 mm[Hg] Jaime Davis [facility] 11-19-2022 18:42-0400 Body temperature 97.16 [degF] Babs Lou Work Phone: [facility] 11-19-2022 18:42-0400 Body weight 61.23 kg Babs Lou Work Phone: [facility] 11-19-2022 18:42-0400 Diastolic blood pressure 91 mm[Hg] Babs Lou Work Phone: [facility] 11-19-2022 18:42-0400 Heart rate 87 /min Babs Lou Work Phone: [facility] 11-19-2022 18:42-0400 Respiratory rate 19 /min Babs Lou Work Phone: [facility] 11-19-2022 18:42-0400 SaO2% (BldA) [Mass fraction] 99 % Babs Lou Work Phone: [facility] 11-19-2022 18:42-0400 Systolic blood pressure 131 mm[Hg] Babs Lou Work Phone: [facility] 11-15-2022 15:40-0400 Body temperature 97.3 [degF] Tapan Bacon MD Work Phone: [facility] 11-15-2022 15:40-0400 Diastolic blood pressure 90 mm[Hg] Tapan Bacon MD Work Phone: [facility] 11-15-2022 15:40-0400 Heart rate 87 /min Tapan Bacon MD Work Phone: [facility] 11-15-2022 15:40-0400 Respiratory rate 16 /min Tapan Bacon MD Work Phone: [facility] 11-15-2022 15:40-0400 SaO2% (BldA) [Mass fraction] 96 % Tapan Bacon MD Work Phone: [facility] [employer] 11-15-2022 15:40-0400 Systolic blood pressure 128 mm[Hg] Tapan Bacon MD Work Phone: [facility] [employer] 11-09-2022 06:09-0400 Diastolic blood pressure 99 mm[Hg] Edgardo Bedoya MD Work Phone: [facility] [employer] 11-09-2022 06:09-0400 Heart rate 96 /min Edgardo Bedoya MD Work Phone: [facility] [employer] 11-09-2022 06:09-0400 Respiratory rate 19 /min Edgardo Bedoya MD Work Phone: [facility] [employer] 11-09-2022 06:09-0400 SaO2% (BldA) [Mass fraction] 99 % Edgadro Bedoya MD Work Phone: [facility] [employer] 11-09-2022 06:09-0400 Systolic blood pressure 146 mm[Hg] Edgardo Bedoya MD Work Phone: [facility] [employer] 11-09-2022 06:08-0400 Body mass index (BMI) [Ratio] 21.41 kg/m2 Edgardo Bedoya MD Work Phone: [facility] [employer] 11-09-2022 06:08-0400 Body weight 62 kg Edgardo Bedoya MD Work Phone: [facility] [employer] 10-31-2022 08:00-0400 Body temperature 97 [degF] Venecia Bacon MD Work Phone: [employer] 10-31-2022 08:00-0400 Body weight 66.68 kg Venecia Bacon MD Work Phone: [employer] 10-31-2022 08:00-0400 Diastolic blood pressure 82 mm[Hg] Venecia Bacon MD Work Phone: [employer] 10-31-2022 08:00-0400 Heart rate 96 /min Venecia Bacon MD Work Phone: [employer] 10-31-2022 08:00-0400 Respiratory rate 16 /min [facility] 10-31-2022 08:00-0400 SaO2% (BldA) [Mass fraction] 100 % Venecia Bacon MD Work Phone: [facility] 10-31-2022 08:00-0400 Systolic blood pressure 114 mm[Hg] Venecia Bacon MD Work Phone: [facility] 10-24-2022 08:19-0400 Body height 170.2 cm Mariam Stoll PAGE TECHNICIAN.BARRATTE OPERATOR, DNP Work Phone: 10-24-2022 08:19-0400 Body weight 61.69 kg Mariam Stoll PAGE TECHNICIAN.BARRATTE OPERATOR, DNP Work Phone: 10-24-2022 08:19-0400 Diastolic blood pressure 86 mm[Hg] Mariam Sotll PAGE TECHNICIAN.BARRATTE OPERATOR, DNP Work Phone: 10-24-2022 08:19-0400 Heart rate 84 /min Mariam Stoll PAGE TECHNICIAN.BARRATTE OPERATOR, DNP Work Phone: 10-24-2022 08:19-0400 SaO2% (BldA) [Mass fraction] 98 % Mariam Stoll PAGE TECHNICIAN.BARRATTE OPERATOR, DNP Work Phone: 10-24-2022 08:19-0400 Systolic blood pressure 122 mm[Hg] Mariam Stoll PAGE TECHNICIAN.BARRATTE OPERATOR, DNP Work Phone: 10-22-2022 09:05-0400 Body temperature 98.01 [degF] Ahmed Elghawy DO Work Phone: 10-22-2022 09:05-0400 Body weight 61.83 kg Ahmed Elghawy DO Work Phone: 10-22-2022 09:05-0400 Diastolic blood pressure 84 mm[Hg] Ahmed Elghawy DO Work Phone: 10-22-2022 09:05-0400 Heart rate 97 /min Jeri Ellizetawy DO Work Phone: 10-22-2022 09:05-0400 Systolic blood pressure 129 mm[Hg] Jeri Ellizetawy DO Work Phone: 10-06-2022 21:40-0400 Body temperature 97.7 [degF] Jaime Davis [facility] 10-06-2022 21:40-0400 Diastolic blood pressure 87 mm[Hg] Jaime Davis [facility] 10-06-2022 21:40-0400 Heart rate 80 /min Jaime Davis [facility] 10-06-2022 21:40-0400 Respiratory rate 18 /min Jaime Davis [facility] 10-06-2022 21:40-0400 SaO2% (BldA) [Mass fraction] 99 % Jaime Davis [facility] 10-06-2022 21:40-0400 Systolic blood pressure 129 mm[Hg] Jaime Davis [facility] 10-06-2022 17:22-0400 Body height 170.1 cm Jaime Davis [facility] 10-06-2022 17:22-0400 Body weight 61.5 kg Jaime Davis [facility] 09-26-2022 14:53-0400 Body mass index (BMI) [Ratio] 21.93 kg/m2 Jaime Davsi Work Phone: [facility] 09-26-2022 14:53-0400 Body temperature 97.39 [degF] Jaime Davis Work Phone: [facility] 09-26-2022 14:53-0400 Body weight 63.5 kg Jaime Davis Work Phone: [facility] 09-26-2022 14:53-0400 Diastolic blood pressure 89 mm[Hg] Jaime Davis Work Phone: [facility] 09-26-2022 14:53-0400 Heart rate 95 /min Jaime Davis Work Phone: [facility] 09-26-2022 14:53-0400 Respiratory rate 20 /min Jaime Davis Work Phone: [facility] 09-26-2022 14:53-0400 SaO2% (BldA) [Mass fraction] 98 % Jaime Davis Work Phone: [facility] 09-26-2022 14:53-0400 Systolic blood pressure 139 mm[Hg] Jaime Davis Work Phone: [facility] 09-25-2022 13:37-0400 Body height 170.18 cm Jaime Jones [facility] 09-25-2022 11:37-0400 Body height 170.18 cm Babs Lou Work Phone: [facility] 09-25-2022 11:37-0400 Body temperature 98.42 [degF] Babs Lou Work Phone: [facility] 09-25-2022 11:37-0400 Body weight 61.68 kg Babs Lou Work Phone: [facility] 09-25-2022 11:37-0400 Diastolic blood pressure 92 mm[Hg] Babs Lou Work Phone: [facility] 09-25-2022 11:37-0400 Heart rate 102 /min Babs Lou Work Phone: [facility] 09-25-2022 11:37-0400 Respiratory rate 19 /min Babs Lou Work Phone: [facility] 09-25-2022 11:37-0400 SaO2% (BldA) [Mass fraction] 100 % Babs Lou Work Phone: [facility] 09-25-2022 11:37-0400 Systolic blood pressure 142 mm[Hg] Babs Lou Work Phone: [facility] 09-20-2022 08:49-0400 Body height 170.18 cm [facility] 09-20-2022 08:49-0400 Body mass index (BMI) [Ratio] 21.9 kg/m2 [facility] 09-20-2022 08:49-0400 Body weight 63.5 kg [facility] 09-20-2022 08:49-0400 Diastolic blood pressure 75 mm[Hg] [facility] 09-20-2022 08:49-0400 Systolic blood pressure 116 mm[Hg] [facility] 09-16-2022 13:37-0400 Body mass index (BMI) [Ratio] 22.71 kg/m2 Jaime Davis Work Phone: [facility] 09-16-2022 13:37-0400 Body temperature 97.5 [degF] Jaime Davis Work Phone: [facility] 09-16-2022 13:37-0400 Body weight 65.77 kg Jaime Davis Work Phone: [facility] 09-16-2022 13:37-0400 Diastolic blood pressure 94 mm[Hg] Jaime Davis Work Phone: [facility] [employer] 09-16-2022 13:37-0400 Heart rate 98 /min Jaime Davis Work Phone: [facility] 09-16-2022 13:37-0400 Respiratory rate 16 /min Jaime Davis Work Phone: [facility] 09-16-2022 13:37-0400 SaO2% (BldA) [Mass fraction] 100 % Jaime Davis Work Phone: [facility] [employer] 09-16-2022 13:37-0400 Systolic blood pressure 131 mm[Hg] Jaime Davis Work Phone: [facility] 09-13-2022 17:45-0400 Body temperature 98.1 [degF] Ephraim Cardona MD Work Phone: [facility] [employer] 09-13-2022 17:45-0400 Diastolic blood pressure 84 mm[Hg] Ephraim Cardona MD Work Phone: [facility] [employer] 09-13-2022 17:45-0400 Heart rate 82 /min Ephraim Cardona MD Work Phone: [facility] 09-13-2022 17:45-0400 Respiratory rate 16 /min Ephraim Cardona MD Work Phone: [facility] [employer] 09-13-2022 17:45-0400 SaO2% (BldA) [Mass fraction] 97 % Ephraim Cardona MD Work Phone: [facility] [employer] 09-13-2022 17:45-0400 Systolic blood pressure 142 mm[Hg] Ephraim Cardona MD Work Phone: [facility] 09-13-2022 15:45-0400 Body height 170.2 cm Ephraim Cardona MD Work Phone: [facility] [employer] 09-13-2022 15:45-0400 Body mass index (BMI) [Ratio] 21.93 kg/m2 Ephraim Cardona MD Work Phone: [facility] [employer] 09-13-2022 15:45-0400 Body weight 63.5 kg Ephraim Cardona MD Work Phone: [facility] [employer] 09-09-2022 18:27-0400 Diastolic blood pressure 90 mm[Hg] Matt Rosado MD Work Phone: [facility] [employer] 09-09-2022 18:27-0400 Heart rate 84 /min Matt Rosado MD Work Phone: [facility] [employer] 09-09-2022 18:27-0400 Respiratory rate 18 /min Matt Rosado MD Work Phone: [facility] [employer] 09-09-2022 18:27-0400 SaO2% (BldA) [Mass fraction] 99 % Matt Rosado MD Work Phone: [facility] [employer] 09-09-2022 18:27-0400 Systolic blood pressure 144 mm[Hg] Matt Rosado MD Work Phone: [facility] 09-09-2022 12:04-0400 Body height 170.2 cm Matt Rosado MD Work Phone: [facility] 09-09-2022 12:04-0400 Body mass index (BMI) [Ratio] 21.93 kg/m2 Matt Rosado MD Work Phone: [facility] 09-09-2022 12:04-0400 Body temperature 97.59 [degF] Matt Rosado MD Work Phone: [facility] 09-09-2022 12:04-0400 Body weight 63.5 kg Matt Rosado MD Work Phone: [facility] 09-04-2022 14:02-0400 Body height 170.[address] [facility] 09-04-2022 14:02-0400 Body mass index (BMI) [Ratio] 21.93 kg/m2 [facility] 09-04-2022 14:02-0400 Body temperature 99.39 [degF] [facility] 09-04-2022 14:02-0400 Body weight 63.[address] [facility] 09-04-2022 14:02-0400 Diastolic blood pressure 91 mm[Hg] [facility] 09-04-2022 14:02-0400 Heart rate 97 /min [facility] 09-04-2022 14:02-0400 Respiratory rate 14 /min [facility] 09-04-2022 14:02-0400 SaO2% (BldA) [Mass fraction] 98 % [facility] 09-04-2022 14:02-0400 Systolic blood pressure 143 mm[Hg] [facility] 09-03-2022 14:31-0400 Body height 170.1 cm Text Entry Free [facility] 09-03-2022 14:31-0400 Body temperature 97.34 [degF] Text Entry Free [facility] 09-03-2022 14:31-0400 Body weight 65 kg Text Entry Free [facility] 09-03-2022 14:31-0400 Diastolic blood pressure 103 mm[Hg] Text Entry Free [facility] 09-03-2022 14:31-0400 Heart rate 116 /min Text Entry Free [facility] 09-03-2022 14:31-0400 Respiratory rate 18 /min Text Entry Free [facility] 09-03-2022 14:31-0400 SaO2% (BldA) [Mass fraction] 99 % Text Entry Free [facility] 09-03-2022 14:31-0400 Systolic blood pressure 136 mm[Hg] Text Entry Free [facility] 08-28-2022 08:44-0400 Body temperature 96.98 [degF] Babs Lou Work Phone: [facility] 08-28-2022 08:44-0400 Body weight 63.5 kg Babs Lou Work Phone: [facility] 08-28-2022 08:44-0400 Diastolic blood pressure 93 mm[Hg] Babs Lou Work Phone: [facility] 08-28-2022 08:44-0400 Heart rate 86 /min Babs Lou Work Phone: [facility] 08-28-2022 08:44-0400 Respiratory rate 19 /min Babs Lou Work Phone: [facility] 08-28-2022 08:44-0400 SaO2% (BldA) [Mass fraction] 100 % Babs Lou Work Phone: [facility] 08-28-2022 08:44-0400 Systolic blood pressure 150 mm[Hg] Babs Lou Work Phone: [facility] 08-20-2022 11:30-0400 Body temperature 97.3 [degF] Jaime Davis [facility] 08-20-2022 11:30-0400 Body weight 66.678 Jaime Davis [facility] 08-20-2022 11:30-0400 Diastolic blood pressure 92 mm[Hg] Jaime Davis [facility] 08-20-2022 11:30-0400 Heart rate 109 /min Jaime Davis [facility] 08-20-2022 11:30-0400 Respiratory rate 16 /min Jaime Davis [facility] 08-20-2022 11:30-0400 SaO2% (BldA) [Mass fraction] 100 % Jaime Davis [facility] 08-20-2022 11:30-0400 Systolic blood pressure 152 mm[Hg] Jaime Davis [facility] 08-20-2022 09:30-0400 Body temperature 97.34 [degF] Babs Lou Work Phone: [facility] 08-20-2022 09:30-0400 Body weight 66.67 kg Babs Lou Work Phone: [facility] 08-20-2022 09:30-0400 Diastolic blood pressure 92 mm[Hg] Babs Lou Work Phone: [facility] 08-20-2022 09:30-0400 Heart rate 109 /min Babs Lou Work Phone: [facility] 08-20-2022 09:30-0400 Respiratory rate 16 /min Babs Lou Work Phone: [facility] 08-20-2022 09:30-0400 SaO2% (BldA) [Mass fraction] 100 % Babs Lou Work Phone: [facility] 08-20-2022 09:30-0400 Systolic blood pressure 152 mm[Hg] Babs Lou Work Phone: [facility] 08-18-2022 10:17-0400 Body height 170.18 cm Jaime Davis [facility] 08-18-2022 10:17-0400 Body temperature 96.9 [degF] Jaime Davis [facility] 08-18-2022 10:17-0400 Body weight 61.235 Jaime Davis [facility] 08-18-2022 10:17-0400 Diastolic blood pressure 98 mm[Hg] Jaime Davis [facility] 08-18-2022 10:17-0400 Heart rate 92 /min Jaime Davis [facility] 08-18-2022 10:17-0400 Respiratory rate 20 /min Jaime Davis [facility] 08-18-2022 10:17-0400 SaO2% (BldA) [Mass fraction] 100 % Jaime Davis [facility] 08-18-2022 10:17-0400 Systolic blood pressure 148 mm[Hg] Jaime Davis [facility] 08-18-2022 08:17-0400 Body height 170.18 cm Babs Lou Work Phone: [facility] 08-18-2022 08:17-0400 Body temperature 96.98 [degF] Babs Lou Work Phone: [facility] 08-18-2022 08:17-0400 Body weight 61.23 kg Babs Lou Work Phone: [facility] 08-18-2022 08:17-0400 Diastolic blood pressure 98 mm[Hg] Babs Lou Work Phone: [facility] 08-18-2022 08:17-0400 Heart rate 92 /min Babs Lou Work Phone: [facility] 08-18-2022 08:17-0400 Respiratory rate 20 /min Babsmedina Lou Work Phone: [facility] 08-18-2022 08:17-0400 SaO2% (BldA) [Mass fraction] 100 % Babs Lou Work Phone: [facility] 08-18-2022 08:17-0400 Systolic blood pressure 148 mm[Hg] Babs Lou Work Phone: [facility] 08-17-2022 18:16-0400 Heart rate 78 /min Jaime Davis [facility] 08-17-2022 18:11-0400 Body temperature 98 [degF] Jaime Davis [facility] 08-17-2022 18:11-0400 Body weight 63.503 Jaime Jones [facility] 08-17-2022 18:11-0400 Diastolic blood pressure 100 mm[Hg] Jaime Davis [facility] 08-17-2022 18:11-0400 Respiratory rate 16 /min Jaime Davis [facility] 08-17-2022 18:11-0400 SaO2% (BldA) [Mass fraction] 100 % Jaime Davis [facility] 08-17-2022 18:11-0400 Systolic blood pressure 139 mm[Hg] Jaime Davis [facility] 08-17-2022 16:16-0400 Heart rate 78 /min Babs Lou Work Phone: [facility] 08-17-2022 16:11-0400 Body temperature 98.06 [degF] Babs Carmine Work Phone: [facility] 08-17-2022 16:11-0400 Body weight 63.5 kg Babs Carmine Work Phone: [facility] 08-17-2022 16:11-0400 Diastolic blood pressure 100 mm[Hg] Babs Lou Work Phone: [facility] 08-17-2022 16:11-0400 Respiratory rate 16 /min Babs Carmine Work Phone: [facility] 08-17-2022 16:11-0400 SaO2% (BldA) [Mass fraction] 100 % Babsmedina Lou Work Phone: [facility] 08-17-2022 16:11-0400 Systolic blood pressure 139 mm[Hg] Babs Lou Work Phone: [facility] 08-17-2022 07:15-0400 Body height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 encounter Start: 09-25-2022 End: 09-25-2022 Emergency department patient visit Jaime Davis [facility] Start: 09-25-2022 End: 09-25-2022 Emergency department patient visit Babs Lou Work Phone: [facility]-EMERGENCY Work Phone: Start: 09-20-2022 End: 09-20-[address] [facility] Work Phone: Start: 09-20-2022 End: 09-20-[address] [facility] [id number] [place] [address] Start: 09-16-2022 End: 09-16-2022 Emergency department patient visit Jaime Davis Work Phone: [facility] ED Comment on above: Acute exacerbation o f chronic low back pain (Primary Dx); Supraclavicular lymphadenopathy Start: 09-13-2022 End: 09-13-2022 Emergency department patient visit Ephraim Cardona MD Work Phone: [facility] EM[facility]GENCY [facility]PT Comment on above: Acute exacerbation o f chronic low back pain (Primary Dx) Start: 09-09-2022 End: 09-09-2022 Emergency department patient visit Matt Rosado MD Work Phone: [facility] EMERGENCY [facility]PT Comment on above: History of ankylosin g spondylitis (Primary Dx) Start: 09-09-2022 End: 09-09-2022 Subsequent hospital visit by physician Adama [facility] Non-Invasive Cardiology Comment on above: Arrived Start: 09-04-2022 End: 09-04-2022 Emergency department patient visit [facility] EMERGENCY [facility]PT Comment on above: Sciatic nerve pain, right (Primary Dx); Fall, initial encounter Start: 09-04-2022 Telephone encounter Fely alvares RN [facility] Comment on above: Appointment Request Start: 09-03-2022 End: 09-03-2022 [facility] Start: 08-28-2022 End: 08-28-2022 Emergency department patient visit Jaime Davis [facility] Start: 08-28-2022 End: 08-28-2022 Emergency department patient visit Babs Lou Work Phone: [facility]-EMERGENCY Work Phone: Start: 08-20-2022 End: 08-20-2022 Emergency department patient visit Jaime Davis [facility] Start: 08-20-2022 End: 08-20-2022 Emergency department patient visit Babs Lou Work Phone: [facility]EMERGENC[facility] Work Phone: Start: 08-18-2022 End: 08-18-2022 Emergency department patient visit Jaime Davis [facility] Start: 08-18-2022 End: 08-18-2022 Emergency department patient visit Babs Lou Work Phone: [facility]EMERG[facility] Work Phone: Start: 08-17-2022 End: 08-17-2022 Emergency department patient visit Jaime Davis [facility] Start: 08-17-2022 End: 08-17-2022 Emergency department patient visit Babs Lou Work Phone: [facility]EMERGENC[facility] Work Phone: Start: 08-17-2022 End: 08-17-2022 Emergency department patient visit Babs Thomas DO Work Phone: [facility] Emergency Department Comment on above: Acute exacerbation o f chronic low back pain (Primary Dx) Start: 08-12-2022 End: 08-12-2022 Emergency department patient visit Jaime Davis [facility] Start: 08-12-2022 End: 08-12-2022 Emergency department patient visit Babs Lou Work Phone: [facility]EMERGENC[facility] Work Phone: Start: 08-09-2022 End: 08-09-2022 Emergency department patient visit Donald Lainez [facility] Start: 08-07-2022 End: 08-07-2022 Emergency department patient visit Saul Kuhn [facility] [employer] Start: 08-04-2022 End: 08-04-2022 Emergency department patient visit Eugene Thomas [facility] 10 Start: 08-01-2022 End: 08-01-[address] [facility] Work Phone: Start: 08-01-2022 End: 08-01-[address] [facility] [address] Start: 07-31-2022 End: 07-31-2022 Emergency department patient visit Jessenia Moris DO Work Phone: [facility] Emergency Department Comment on above: Acute exacerbation o f chronic low back pain (Primary Dx) Start: 07-02-2022 End: 07-02-2022 Emergency department patient visit Saul Kuhn [facility] [employer] Start: 06-30-2022 End: 06-30-2022 Emergency department patient visit Bridgette Al Other Phone (unformatted): [phone] [facility] Wait Start: 06-25-2022 End: 06-25-2022 Emergency department patient visit Mr. Amandeep Perez Zifchak Facility:[id number] Start: 06-23-2022 End: 06-23-2022 Emergency department patient visit Jessenia Moris OMALLEY Work Phone: [facility] Emergency Department Comment on above: Pain of [...] End: 03-24-2022 Subsequent hospital visit by physician Ian Hurtado M[facility] MRI Comment on above: Sacroiliitis (HCC) Chronic bronchitis, unspecified chronic bronchitis type (HCC) Generalized abdomina l pain; Lung mass Start: 09-28-2021 End: 09-30-2021 Subsequent hospital visit by physician Jf Torres Xr Rm 1 [facility] Comment on above: Other osteoarthritis involving multiple joints Start: 07-26-2020 End: 07-28-2020 Subsequent hospital visit by physician Ian Rm 2 [facility] Ultrasound Comment on above: Supraclavicular radha opathy Start: 06-30-2020 End: 07-01-2020 Subsequent hospital visit by physician Jia Ellis MD Work Phone: [facility] Comment on above: Lymphadenopathy (Sophia jan Dx) Start: 06-30-2020 End: 06-30-2020 Emergency department patient visit Jessenia Miller DO Work Phone: [facility] Emergency Department Start: 11-30-2019 End: 12-02-2019 Subsequent hospital visit by physician Jessenia [facility] Comment on above: Joint swelling; [...] visit by physician Khoa Gallagher Work Phone: [facility] Comment on above: Sacroiliitis (HCC) Start: [...] visit by physician Jf Ct Scan [address] [facility] CT Scan Comment on above: Chest pain, unspecif ied type Arrived Start: 12-11-2018 End: 12-13-2018 Subsequent hospital visit by physician Jf Torres [facility] Comment on above: Annular tear of lumb ar disc; DDD (degenerative disc disease), lumbar Cough Procedures Date Procedure Procedure Detail Performing Clinician Start: 10-27-2024 Ct abdomen & pelvis w/contrast material Sophia Mancilla DO Work Phone: Start: 10-27-2024 Ct lumbar spine w/o contrast material Sophia Mancilla DO Work Phone: Start: 10-27-2024 Urinalysis microscopic only Sophia Mancilla DO Work Phone: Start: 10-27-2024 Urnls dip stick/tabl et rgnt auto w/o microscopy Sophia Mancilla DO Work Phone: Start: 10-27-2024 Comprehensive metabo lic panel Sophia Mancilla DO Work Phone: Start: 10-21-2024 Comprehensive metabo lic panel Suraj Grace Roberto PA-C Work Phone: Start: 10-21-2024 Urnls dip stick/tabl et reagent auto microscopy Suraj Grace Roberto PA-C Work Phone: Start: 10-20-2024 Radex shoulder compl ete minimum 2 views Deya Tyler MD Work Phone: Start: 10-13-2024 Radex shoulder compl ete minimum 2 views Samira Valera PAGE TECHNICIAN - BARRATTE OPERATOR Work Phone: Start: 10-10-2024 Radex hip unilateral with pelvis 2-3 views Nena Carrillo PA-C Work Phone: Start: 09-04-2024 Ct head/brain w/o co ntrast material Ron Nuñez MD Work Phone: Start: 08-29-2024 Ecg routine ecg w/le ast 12 lds w/i&r Brandy Sanches MD Work Phone: Start: 08-24-2024 Ct cervical spine w/ o contrast material Dewayne Lesly Ambriz PAGE TECHNICIAN - BARRATTE OPERATOR Work Phone: Start: 08-24-2024 Ct head/brain w/o co ntrast material Dewayne A Jacekuntsandro PAGE TECHNICIAN - BARRATTE OPERATOR Work Phone: Start: 08-24-2024 Radiologic exam knee complete 4/more views Dewayne Ambriz PAGE TECHNICIAN - BARRATTE OPERATOR Work Phone: Start: 08-21-2024 Plain x-ray of pelvi s and lower extremity [facility] Start: 08-21-2024 Plain X-ray of shoulder [facility] Start: 08-20-2024 Radex spine thoracic 2 views Amandeep Marcial PAGE TECHNICIAN-BARRATTE OPERATOR Work Phone: Start: 08-08-2024 End: 08-08-2024 Radiologic [...] Start: 06-05-2024 COVID-19 & INFLUENZA COMBO Cara Bynumrne DO Work Phone: Start: 06-03-2024 Ct angiography chest w/contrast/noncontrast Kev Shadi DO Work Phone: Start: 06-03-2024 Urine test visual color cmprsn indigo Mancilla DO Work Phone: Start: 06-03-2024 Radiologic exam ches t 2 views Kev Hsu DO Work Phone: Start: 06-03-2024 End: 06-03-2024 Comprehensive metabolic panel Kev Shadi DO Work Phone: Start: 06-03-2024 COVID-19 & INFLUENZA COMBO Kevharper Hsu DO Work Phone: Start: 06-03-2024 Ecg routine ecg w/le ast 12 lds w/i&r Kev Shadi [employer] Work Phone: Start: 05-25-2024 Comprehensive metabo lic panel Suraj Greshamid PA-C Work Phone: Start: 05-25-2024 Ecg routine ecg w/le ast 12 lds w/i&r Suraj Grace Roberto PA-C Work Phone: Start: 05-22-2024 Ct head/brain [...] Radiologic exam ches t single view Kev Hsu DO Work Phone: Start: 04-20-2024 Radiologic exam ches t single view Sigrid Forbes PAGE TECHNICIAN - BARRATTE OPERATOR Work Phone: Start: 04-20-2024 Radex shoulder compl ete minimum 2 views Sigrid Forbes PAGE TECHNICIAN - BARRATTE OPERATOR Work Phone: Start: 03-29-2024 Comprehensive metabo lic panel Kev Hsu DO Work Phone: Start: 03-12-2024 Radiologic examinati on femur minimum 2 views Ninoska Munoz PAGE TECHNICIAN - BARRATTE OPERATOR Start: 03-12-2024 Ct cervical spine w/ o contrast material Samira L Geiselman PAGE TECHNICIAN - BARRATTE OPERATOR Work Phone: Start: 03-12-2024 Ct head/brain w/o co ntrast material Samira L Geiselman PAGE TECHNICIAN - BARRATTE OPERATOR Work Phone: Start: 03-12-2024 Ct pelvis w/o contra st material Samira L Geiselman PAGE TECHNICIAN - BARRATTE OPERATOR Work Phone: Start: 03-12-2024 Radex ribs uni w/pos teroant ch minimum 3 views Samira L Geiselman PAGE TECHNICIAN - BARRATTE OPERATOR Work Phone: Start: 03-08-2024 End: 03-08-2024 Mri orbit face & neck w/o & w/contrast matrl Erica Alvarez DO Work Phone: Start: 03-08-2024 Assay [...] 01-18-2024 Iaad ia streptococcu s group a Hu Hannah DO Work Phone: Start: 01-18-2024 Radiologic exam ches t single view Hu Hannah DO Work Phone: Start: 01-13-2024 Radex hand minimum 3 views Abbs Thomas DO Work Phone: Start: 01-06-2024 Radex shoulder compl ete minimum 2 views Samuel Lopez MD Work Phone: Start: 01-04-2024 Blood count hemoglobin Michele Ramirez Comment on above: Performed By: #### C BCAD #### [facility] [place] [phone] Start: 12-29-2023 Comprehensive metabo lic panel Hu Hannah DO Work Phone: Start: 11-23-2023 Pelvis X-ray Jaime galvan Work Phone: Start: 11-23-2023 X-ray of lumbar [...] Phone: Start: 09-30-2023 X-ray of left ankle Miryam Davis Work Phone: Start: 09-30-2023 X-ray of left foot Ricco Davis Work Phone: Start: 09-29-2023 Assay of [...] views Jae Sommer MD Work Phone: Start: 08-10-2023 End: 08-10-2023 Radex ankle complete minimum 3 views Nuno Mar DO Work Phone: Start: 08-06-2023 End: 08-06-2023 Radex ankle complete minimum 3 views Rosalie Nelson DO Work Phone: Start: 07-12-2023 X-ray of lumbosacral spine Start: 06-15-2023 End: 06-15-2023 Computed tomography of abdomen and pelvis with contrast Babs Lou Start: 06-15-2023 End: 06-15-2023 CT of head without contrast Babs Lou Start: 06-15-2023 End: 06-15-2023 Ultrasonography of abdomen Babs Lou Start: 05-30-2023 X-ray of lumbar spin e, two or three views Start: 05-24-2023 Radex sacrum & coccy x minimum 2 views Jessica Alexander DO Work Phone: Start: 05-06-2023 Ct lumbar spine w/o contrast material Angela Burkett PA-C Work Phone: Start: 04-25-2023 Radiologic exam ches t single view Jae Sommer MD Work Phone: Start: 04-25-2023 Basic metabolic pane l calcium total Jae Sommer MD Work Phone: Start: 03-30-2023 End: 03-30-2023 Radex spine lumbosacral 2/3 views Lilibeth Michelle DO Work Phone: Start: 03-05-2023 Ecg routine ecg w/le ast 12 lds trcg only w/o i&r Lilibeth Michelle DO Work Phone: Start: 03-05-2023 Radiologic exam ches t single view Lilibeth Michelle DO Work Phone: Start: 03-05-2023 Basic metabolic pane l calcium total Lilibeth Michelle DO Work Phone: Start: 03-04-2023 Radex spine lumbosac ral 2/3 views Lam Bray APRN - BARRATTE OPERATOR Work Phone: Start: 11-15-2022 Radex shoulder compl ete minimum 2 views Tapan Bacon MD Work Phone: Start: 11-14-2022 Mri pelvis w/o & w/c ontrast material Jeri Mendes DO Work Phone: Start: 11-09-2022 Radex shoulder compl ete minimum 2 views Joe Garrison MD Work Phone: Start: 10-06-2022 End: 10-06-2022 EKG impression Ary Main Start: 09-26-2022 Ct head/brain w/o co ntrast material Matt Rosado MD Work Phone: Start: 09-16-2022 Radiologic exam ches t 2 views Rajat Melvina PAGE TECHNICIAN - BARRATTE OPERATOR Work Phone: Start: 09-13-2022 Radiologic examinati on knee 3 views Ephraim Cardona MD Work Phone: Start: 09-09-2022 C-reactive protein Conn or Hurt PA-C Work Phone: Start: 09-09-2022 Comprehensive metabo lic panel Mario Hurt PA-C Work Phone: Start: 09-09-2022 Radiologic examinati on pelvis 1/2 views Mario Tinsleyis PA-C Work Phone: Start: 09-09-2022 Ecg routine ecg w/le ast 12 lds trcg only w/o i&r Matt Rosado MD Work Phone: Start: 09-04-2022 End: 09-04-2022 Radex spine thoracic 3 views Angela Flores PA-C Work Phone: Start: 08-17-2022 Mri spinal canal lum bar w/o & w/contr matrl Babs Thomas DO Work Phone: Start: 08-09-2022 LUMBAR SPINE-2 OR 3 VIEW Jaime Davis Start: 08-09-2022 Pelvis X-ray Jaime galvan Start: 08-01-2022 X-ray of lumbar spin e, four views Start: 06-23-2022 Ct cervical spine w/ o contrast material Linette Muellern PAGE TECHNICIAN - BARRATTE OPERATOR Work Phone: Start: 06-23-2022 Radex hip unilateral with pelvis 2-3 views Linette Muellern PAGE TECHNICIAN - BARRATTE OPERATOR Work Phone: Start: 03-22-2022 Mri spinal canal [...] tissue head & neck real time imge docm Umer Adams MD Work Phone: Start: 07-01-2020 BASIC METABOLIC PANE L W/ REFLEX TO MG FOR LOW K Jia Ellis MD Work Phone: Start: 07-01-2020 Blood count complete automated Jia Ellis MD Work Phone: Start: 06-30-2020 Ct thorax w/contrast material Sigrid Forbes PAGE TECHNICIAN - BARRATTE OPERATOR Work Phone: Start: 06-30-2020 Blood count complete auto&auto difrntl wbc Sigrid Forbes PAGE TECHNICIAN - BARRATTE OPERATOR Work Phone: Start: 06-21-2020 Microscopic observat ion [Identifier] in Cervix by Cyto stain Maria Elena Montalvo MD Work Phone: Start: 11-30-2019 [facility]inuclear antibodies red [facility] Work Phone: Start: 11-30-2019 C-reactive protein Rich nandini Miller Work Phone: Start: 11-30-2019 Lipid panel Jessenia Sommers Work Phone: Start: 11-30-2019 MISCELLANEOUS SENDOUT 1 Jessenia Miller Work Phone: Start: 11-30-2019 Rheumatoid factor quantitative Jessenia Miller Work Phone: Start: 11-30-2019 Sedimentation rate r bc automated Jessenia Miller Work Phone: Start: 11-30-2019 Lipid 1996 panel - S yeimy or Plasma Trisha Tenorio PAGE TECHNICIAN.BARRATTE OPERATOR Work Phone: Start: 07-30-2019 Assay of thyroid stimulating hormone tsh Jessenia Ramirezjoy Work Phone: Start: 07-30-2019 Blood count complete auto&auto difrntl wbc Jessenia Ramirezjoy Work Phone: Start: 07-30-2019 Comprehensive metabo lic panel Jessenia Ramirezavivarobert Work Phone: Start: 07-30-2019 Hemoglobin glycosylated a1c Jessenia Jayson Miller Work Phone: Start: 03-17-2019 FLUORO FOR SURGICAL PROCEDURES Khoa Gallagher MD Work Phone: Start: 02-02-2019 FLUORO FOR SURGICAL PROCEDURES Khoa Gallagher Work Phone: Start: 01-07-2019 Mri spinal canal lum bar w/o contrast material Jessenia Miller Work Phone: Start: 01-07-2019 Assay of thyroid stimulating hormone tsh Jessenia Jayson Miller Work Phone: Start: 01-07-2019 Blood count complete auto&auto difrntl wbc Jessenia Tyler Moris Work Phone: Start: 01-07-2019 Comprehensive metabo lic panel Jessenia Jayson Miller Work Phone: Start: 01-07-2019 Hemoglobin glycosylated a1c Jessenia Miller Work Phone: Start: 01-07-2019 Lipid panel Jessenia Vy Miller Work Phone: Start: 01-07-2019 Ct thorax w/o & w/co ntrast material Jessenia Ramirezjoy Work Phone: Start: 12-11-2018 Radex spine lumbosac ral 2/3 views Jessenia Jayson Miller Work Phone: Start: 12-11-2018 Radex hip unilateral with pelvis 2-3 views Jessenia Tyler Moris Work Phone: Start: 12-11-2018 Radiologic exam ches t 2 views Jessenia Tyler Moris Work Phone: Plan of Treatment Date Care Activity Detail Author Start: 2047 RSV Immunization for Adults (1 - 1-dose 75+ series) RSV Immunization for Adults (1 - 1-dose 75+ series) [facility] Start: 02-27-2034 DTaP/Tdap/Td Vaccines (3 - Td or Tdap) DTaP/Tdap/Td Vaccines (3 - Td or Tdap) [facility] Start: 09-13-2032 DTaP/Tdap/Td Vaccines (2 - Td or Tdap) DTaP/Tdap/Td Vaccines (2 - Td or Tdap) [facility] Start: 2032 RSV Immunization aged 60 or older (1 - 1-dose 60+ series) RSV Immunization aged 60 or older (1 - 1-dose 60+ series) [facility] Start: 06-11-2027 Diabetes Screening Diabetes Screening Start: 05-26-2027 Diabetes Screening Diabetes Screening Start: 03-29-2027 Diabetes Screening Diabetes Screening Start: 10-22-2026 Diabetes Screening Diabetes Screening Start: 09-28-2026 Diabetes Screening Diabetes Screening Start: 07-29-2026 Diabetes Screening Diabetes Screening Start: 03-05-2026 Diabetes Screening Diabetes Screening Start: 10-06-2025 DIABETES SCREEN DIABETES SCREEN Start: 10-06-2025 Diabetes Screening Diabetes Screening Start: 12-02-2024 Influenza vaccination Influenza Vaccine (#1) [facility] Start: 11-29-2024 Lipid panel [facility] Start: 11-02-2024 Influenza vaccination [facility] Start: 10-27-2024 End: 10-27-2024 Professional / ancillary services management [facility] Comment on above: W/C APPROVED Arrived Start: 10-14-2024 End: 10-14-2024 Patient encounter procedure 10/14/2024 4:00 PM EDT Office Visit [facility] [address] [place] [address] Fidencio Penny DO [address] [place] [address] Concussion and left shoulder f/u [facility] Comment on above: Concussion and left shoulder f/u Start: 10-13-2024 End: 10-13-2024 Patient encounter procedure 10/13/2024 1:15 PM EDT Office Visit [facility] [address] [place] [address] Fidencio Penny DO [address] [place] [address] Concussion and left shoulder f/u [facility] Comment on above: Concussion and left shoulder f/u Start: 10-04-2024 End: 10-04-2024 Patient encounter procedure 10/04/2024 11:15 AM EDT Appointment [facility] MRI [address] [place] [address] Fidencio Penny DO [address] [place], [place] [address] epic pt [facility] Comment on above: epic pt Start: 10-02-2024 Influenza vaccination Flu vaccine (#1) [facility] Start: 09-25-2024 End: 09-25-2024 Patient encounter procedure 09/25/2024 9:15 AM EDT Office Visit [facility] [address] [place] [address] Sameer Tamez DO [address] [place] [address] [employer] OPERATOR ED follow up nasal bone fx [facility] Comment on above: [employer]A [employer] OPERATOR ED follow up nasal bone fx Start: 09-15-2024 End: 09-15-2024 Patient encounter procedure 09/15/2024 1:30 PM EDT Office Visit [facility] [address] [place] [address] Fidencio Penny DO [address] [place] [address] Concussion and Left Shoulder Injury [facility] Comment on above: Concussion and Left Shoulder Injury Start: 08-21-2024 [facility] Start: 08-14-2024 End: 08-14-2024 Patient encounter procedure 08/14/2024 3:00 PM EDT Office Visit [facility] [address] [place] [address] Jaime Davis MD [address] [place] [address], [address] [address] right hip pain, xrays at [facility] Comment on above: right hip pain, xrays at [facility] Start: 08-11-2024 End: 08-11-2024 Patient encounter procedure 08/11/2024 1:45 PM EDT Office Visit [facility] [address] [place] [address] Jaime Davis MD [address] [place] [address], [address] [address] right hip pain, xrays at [facility] Comment on above: right hip pain, xrays at [facility] Start: 07-08-2024 End: 07-08-2024 ambulatory 07/08/2024 1:00 PM EDT [facility] [address] [place] [address] Tenisha Palacios MD [address] [place] [address] Time Frame: Next available Endocrinology Comment on above: Time Frame: Next available Start: 06-12-2024 End: 06-12-2024 ambulatory 06/12/2024 1:30 PM EDT [facility] [address] [place] [address] Tenisha Palacios MD [address] [place] [address] Time Frame: Next available Endocrinology Comment on above: Time Frame: Next available Start: 06-03-2024 End: 06-03-2024 ambulatory 06/03/2024 9:30 AM EDT [facility] [address] [place] [address] Cece Stewart MD [address] [place] [address] Time Frame: Next available [facility] Comment on above: Time Frame: Next available Start: 05-29-2024 End: 05-29-2024 ambulatory 05/29/2024 8:00 AM EDT Results Only [facility] [address] [place] [address] Labs [facility] Comment on above: Labs Start: 05-20-[address] [facility] Work Phone: Start: 05-06-2024 End: 05-06-2024 ambulatory 05/06/2024 2:30 PM EST [facility] [address] [place] [address] Tenisha Palacios MD [address] [place] [address] Time Frame: Next available Endocrinology Comment on above: Time Frame: Next available Start: 05-04-2024 End: 05-04-2024 ambulatory 05/04/2024 8:30 AM EST Results Only [facility] [address] [place] [address] Labs [facility] Comment on above: Labs Start: 04-06-2024 End: 03-30-2025 Corticotropin [Mass/volume] in Plasma ACTH BLD Lab Routine Pituitary lesion ([facility]) Expected: 04/06/2024 (Approximate), Expires: 03/30/2025 Comment on above: Expected: 04/06/2024 (Approximate), Expi res: 03/30/2025 Start: 04-06-2024 End: 03-30-2025 Cortisol [Mass/volume] in Serum or Plasma CORTISOL, SERUM Lab Routine Pituitary lesion ([facility]) Expected: 04/06/2024 (Approximate), Expires: 03/30/2025 Comment on above: Expected: 04/06/2024 (Approximate), Expi res: 03/30/2025 Start: 04-06-2024 End: 03-30-2025 Estradiol (E2) [Mass/volume] in Serum or Plasma ESTRADIOL-17B BLD Lab Routine Pituitary lesion ([facility]) Expected: 04/06/2024 (Approximate), Expires: 03/30/2025 [facility] Work Phone: Comment on above: Expected: 04/06/2024 (Approximate), Expi res: 03/30/2025 Start: 04-06-2024 End: 03-30-2025 Follitropin [Units/volume] in Serum or Plasma FOLLICLE STIMULATING HORMONE Lab Routine Pituitary lesion ([facility]) Expected: 04/06/2024 (Approximate), Expires: 03/30/2025 Comment on above: Expected: 04/06/2024 (Approximate), Expi res: 03/30/2025 Start: 04-06-2024 End: 01-27-2026 INSULIN LIK GR FAC I INSULIN LIK GR FAC I Lab Routine Pituitary lesion ([facility]) Expected: 04/06/2024 (Approximate), Expires: 03/30/2025 Comment on above: Expected: 04/06/2024 (Approximate), Expi res: 03/30/2025 Start: 04-06-2024 End: 03-30-2025 Lutropin [Units/volume] in Serum or Plasma LUTEINIZING HORMONE Lab Routine Pituitary lesion ([facility]) Expected: 04/06/2024 (Approximate), Expires: 03/30/2025 Comment on above: Expected: 04/06/2024 (Approximate), Expi res: 03/30/2025 Start: 04-06-2024 End: 03-30-2025 Prolactin [Mass/volume] in Serum or Plasma PROLACTIN Lab Routine Pituitary lesion ([facility]) Expected: 04/06/2024 (Approximate), Expires: 03/30/2025 Comment on above: Expected: 04/06/2024 (Approximate), Expi res: 03/30/2025 Start: 04-06-2024 End: 03-30-2025 Somatostatin [Mass/volume] in Plasma GROWTH HORMONE Lab Routine Pituitary lesion ([facility]) Expected: 04/06/2024 (Approximate), Expires: 03/30/2025 Comment on above: Expected: 04/06/2024 (Approximate), Expi res: 03/30/2025 Start: 04-06-2024 End: 03-30-2025 Thyrotropin [Units/volume] in Serum or Plasma THYROID STIMULATING HORMONE Lab Routine Pituitary lesion ([facility]) Expected: 04/06/2024 (Approximate), Expires: 03/30/2025 Comment on above: Expected: 04/06/2024 (Approximate), Expi res: 03/30/2025 Start: 04-06-2024 End: 03-30-2025 Thyroxine (T4) free [Mass/volume] in Serum or Plasma T4 FREE/FREE THYROXINE Lab Routine Pituitary lesion ([facility]) Expected: 04/06/2024 (Approximate), Expires: 03/30/2025 Comment on above: Expected: 04/06/2024 (Approximate), Expi res: 03/30/2025 Start: 03-25-[address] [facility] Work Phone: Start: 03-23-2024 Yearly Adult Physical Yearly Adult Physical [facility] Start: 02-29-2024 DTaP/Tdap/Td vaccine (1 - Tdap) DTaP/Tdap/Td vaccine (1 - Tdap) [employer] Start: 02-29-2024 DTaP/Tdap/Td Vaccines (1 - Tdap) DTaP/Tdap/Td Vaccines (1 - Tdap) [facility] Start: 02-29-2024 Urine microalbumin profile DTaP,Tdap,Td Vaccine (1 - Tdap) Start: 02-12-2024 End: 02-12-2024 Patient encounter procedure 02/12/2024 9:00 AM EST Office Visit [facility] [address] [facility] [address] [place] [address] [place] [address] [place] [address] [facility] Start: 01-23-2024 End: 01-23-2024 Patient encounter procedure 01/23/2024 10:45 AM EST Office [facility] [address] [facility] [address] [place], [place] [address] Jocelyne Albert MD [address] [facility] [address] [place] [address] [place] [address] 2nd MBB follow up [facility] Comment on above: 2nd MBB follow up Start: 01-17-2024 End: 01-17-2024 ambulatory [facility] Comment on above: Bilateral MBBs at L4-5 and L5-S1 (2 of 2 ) AUTH GOOD SR (NPCR) Bilateral MBBs at L4-5 and L5-S1 (2 of 2) Start: 01-11-2024 Depression Monitoring Depression Monitoring [employer] Start: 01-10-2024 End: 01-10-2024 Follow-up encounter 01/10/2024 4:00 PM EST [facility] [address] [place] [address] Bayron Fields, PAGE TECHNICIAN.BARRATTE OPERATOR [address] [place] [phone] 1st MBB follow up [facility] Comment on above: 1st MBB follow up Start: 01-08-2024 Lipid panel Lipid screen [place], [place] Start: 01-08-2024 Lipid screen Lipid screen [place] Start: 01-03-2024 End: 01-03-2024 ambulatory [facility] Comment on above: Bilateral MBBs at L4-5 and L5-S1 (1 of 2 ) AUTH GOOD SR (NPCR) Bilateral MBBs at L4-5 and L5-S1 (1 of 2) Start: 12-19-2023 End: 12-19-2023 ambulatory 12/19/2023 4:15 PM EDT [facility] [address] [place] [address] Bayron Fields, PAGE TECHNICIAN.BARRATTE OPERATOR [address] [place] [phone] est pt pain managment [facility] Comment on above: est pt pain managment Start: 12-03-2023 Influenza vaccination Influenza Vaccine (#1) [facility] Start: 11-03-2023 COVID-19 Vaccine ( season) COVID-19 Vaccine () [facility] Start: 11-03-2023 COVID-19 Vaccine ( season) COVID-19 Vaccine ( season) [facility] Start: 11-03-2023 Covid-19 Vaccine () Covid-19 Vaccine () Start: 11-03-2023 Covid-19 Vaccine ( season) Covid-19 Vaccine ( season) Start: 11-03-2023 Influenza vaccination Start: 10-26-2023 Plain X-ray of right hip XR HIP/PELVIS, RIGHT AP/LAT [facility] Work Phone: Start: 10-24-2023 End: 10-24-2023 Patient encounter procedure 10/24/2023 9:45 AM EDT Office Visit [facility] [address] [place], [place] [phone] Trisha Tenorio, KRYSTAL.BARRATTE OPERATOR [address] [place] [phone] follow up from [facility] and bilateral leg emg [facility] Comment on above: follow up from [facility] and bilateral leg emg Start: 10-22-2023 End: 10-22-2023 Follow-up encounter 10/22/2023 1:30 PM EDT [facility] [address] [place], [place] [phone] Trisha Tenorio, KRYSTAL.BARRATTE OPERATOR [address] [place] [phone] follow up from [facility] and bilateral leg emg [facility] Comment on above: follow up from [facility] EDNA and bilateral leg emg Start: 10-17-2023 End: 10-17-2023 ambulatory [facility] Comment on above: Bilateral Leg EMG PENDING LMS - Bilate ral Leg EMG AUTH GOOD LMS - Bila teral Leg EMG Start: 10-08-2023 End: 10-08-2023 ambulatory 10/08/2023 1:00 PM EDT Procedure [facility] [address] [place], [place] [phone] Jocelyne Albert MD [address] [address] [facility] Comment on above: [facility] Start: 10-03-2023 Influenza vaccination [facility] Start: 09-27-2023 End: 09-27-2023 Patient encounter procedure 09/27/2023 12:00 PM EDT Office Visit [facility] [address] [place] [address] Bello Lim, DC [address] [place] [phone] acu manip [facility] Comment on above: acu manip Start: 09-24-2023 End: 09-24-2023 Patient encounter procedure 09/24/2023 9:30 AM EDT Office Visit [facility] [address] [place] [address] Bello Lim, ISSAC [address] [place] [phone] acu manip [facility] Comment on above: acu manip Start: 09-19-2023 End: 09-19-2023 Patient encounter procedure 09/19/2023 12:30 PM EDT Office Visit [facility] [address] [place] [address] Bello Lim, ISSAC [address] [place] [phone] acu manip [facility] Comment on above: acu manip Start: 09-18-2023 End: 09-18-2023 Patient encounter procedure 09/18/2023 10:30 AM EDT Office Visit [address] [phone] Yovanny Feliciano MD [address] [address] [facility] Start: 09-17-2023 End: 09-17-2023 Patient encounter procedure 09/17/2023 2:30 PM EDT Office Visit [facility] [address] [place] [address] Bello Lim, ISSAC [address] [place] [phone] acu manip [facility] Comment on above: acu manip Start: 09-12-2023 End: 09-12-2023 Patient encounter procedure 09/12/2023 1:30 PM EDT Office Visit [facility] [address] [place] [address] Bello Lim, DC [address] [place] [phone] acu manip [facility] Comment on above: acu manip Start: 09-10-2023 End: 09-10-2023 Patient encounter procedure 09/10/2023 1:30 PM EDT Office Visit [facility] [address] [place] [address] Bello Lim, DC [address] [place] [phone] acu manip [facility] Comment on above: acu manip Start: 09-04-2023 End: 09-04-2023 Patient encounter procedure 09/04/2023 8:30 AM EDT Office Visit [facility] [address] [place] [address] Bello Lim, DC [address] [place] [phone] acu manip [facility] Comment on above: acu manip Start: 08-29-2023 End: 08-29-2023 Patient encounter procedure 08/29/2023 8:30 AM EDT Office Visit [facility] [address] [place] [address] Bello Lim, DC [address] [place] [phone] acu & manip [facility] Comment on above: acu & manip Start: 08-19-2023 End: 08-19-2023 Patient encounter procedure 08/19/2023 1:00 PM EDT Office Visit [facility] [address] [place] [address] Trisha Tenorio APRN.BARRATTE OPERATOR [address] [place] [phone] New nigmfqf-Uglp-sogsgg disease, 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 Start: 06-22-2023 Screening for malignant neoplasm of [facility] Start: 05-30-2023 [facility] Start: 04-10-2023 End: 04-10-2023 Patient encounter procedure 04/10/2023 2:45 PM EST Office Visit [facility] [address] [place] [phone] Jacobo Sharp MD [address] [place], [place] [phone] [facility] Start: 03-07-2023 Depression Monitoring Depression Monitoring [facility] Start: 03-04-2023 Behavioral Health Screening Behavioral Health Screening Start: 12-12-2022 End: 12-12-2022 Patient encounter procedure [facility] Start: 12-02-2022 Influenza vaccination Influenza Vaccine (#1) [facility] Start: 11-02-2022 COVID-19 VACCINE () COVID-19 VACCINE () [facility] Start: 11-02-2022 COVID-19 Vaccine ( season) COVID-19 Vaccine ( season) [facility] Start: 11-02-2022 COVID-19 Vaccine ( season) COVID-19 Vaccine ( season) [facility] Start: 11-02-[address] [facility] Start: 10-02-2022 Influenza vaccination Flu vaccine (#1) [facility] Start: 08-22-2022 End: 08-22-2022 Patient encounter procedure 08/22/2022 Office Visit Family Medicine Jessenia Miller, [address] [place] [address] [facility] Start: 08-09-2022 LUMBAR SPINE-2 OR 3 VIEW LUMBAR SPINE-2 OR 3 VIEW [facility] Start: 08-09-2022 Pelvis X-ray PELVIS-1 OR 2 VIEWS [facility] Start: 07-29-2022 Diabetes mellitus screening Diabetes Screening [facility] Start: 06-21-2022 Screening for malignant neoplasm of breast Breast cancer screen [facility] Start: 2022 Pneumococcal vaccination Pneumococcal Vaccine(s) (50+ yrs) (2 of 2 - PCV) [facility] Start: 2022 Shingles (RZV) Vaccine (1 of 2) Shingles (RZV) Vaccine (1 of 2) [facility] [facility] Start: 2022 Shingles vaccine (1 of 2) Shingles vaccine (1 of 2) [facility] Start: 2022 SHINGRIX VACCINE (1 of 2) SHINGRIX VACCINE (1 of 2) Start: 2022 Zoster vaccine hzv live for subcutaneous use ZOSTER (SHINGLES) VACCINE (1 of 2) [facility] Start: 2022 Zoster Vaccines (1 of 2) Zoster Vaccines (1 of 2) [facility] Start: 03-04-2022 DEPRESSION ASSESSMENT DEPRESSION ASSESSMENT Start: 02-24-2022 COVID-19 Vaccine (5 - Moderna series) COVID-19 Vaccine (5 - Moderna series) [facility] Start: 12-30-2021 COVID-19 Vaccine (#1) COVID-19 Vaccine (#1) [facility] Start: 11-02-2021 Influenza vaccination [facility] Start: 07-19-2021 Pneumococcal 0-64 years Vaccine (2 - PCV) Pneumococcal 0-64 years Vaccine (2 - PCV) [facility] Start: 07-19-2021 Pneumococcal 0-64 years Vaccine (2 of 2 - PCV) Pneumococcal 0-64 years Vaccine (2 of 2 - PCV) [facility] Start: 07-19-2021 Pneumococcal 50+ years Vaccine (2 of 2 - PCV) Pneumococcal 50+ years Vaccine (2 of 2 - PCV) [facility] Start: 07-19-2021 Pneumococcal vaccination Pneumococcal Vaccine (2 of 2 - PCV) Start: 07-19-2021 Pneumococcal Vaccine: 50+ (2 of 2 - PCV) Pneumococcal Vaccine: 50+ (2 of 2 - PCV) Start: 07-19-2021 Pneumococcal Vaccine: 50+ Years (2 of 2 - PCV) Pneumococcal Vaccine: 50+ Years (2 of 2 - PCV) [facility] Start: 07-19-2021 Pneumococcal Vaccine: Pediatrics (0 to 5 Years) and At-Risk Patients (6 to 64 Years) (2 - PCV) Pneumococcal Vaccine: Pediatrics (0 to 5 Years) and At-Risk Patients (6 to 64 Years) (2 - PCV) [facility] Start: 07-19-2021 Pneumococcal Vaccine: Pediatrics (0 to 5 Years) and At-Risk Patients (6 to 64 Years) (2 of 2 - PCV) Pneumococcal Vaccine: Pediatrics (0 to 5 Years) and At-Risk Patients (6 to 64 Years) (2 of 2 - PCV) [facility] Start: 06-21-2021 Screening for malignant neoplasm of breast Mammography [facility] Start: 05-01-2021 COVID-19 Vaccine (4 - Moderna series) COVID-19 Vaccine (4 - Moderna series) [facility] Start: 11-23-2020 Pneumococcal Vaccine: Pediatrics (0 to 5 Years) and At-Risk Patients (6 to 64 Years) (2 - PCV) Pneumococcal Vaccine: Pediatrics (0 to 5 Years) and At-Risk Patients (6 to 64 Years) (2 - PCV) [facility] Start: 11-02-2020 Influenza vaccination Flu vaccine (Season Ended) [facility] Work Phone: Start: 08-15-2020 COVID-19 Vaccine (2 - Mixed Product series) COVID-19 Vaccine (2 - Mixed Product series) [facility] Start: 11-04-2019 Lipid screen Lipid screen [facility], [place] Start: 11-03-2019 Influenza vaccination [facility] [place] Start: 04-01-2019 End: 04-01-2019 Patient encounter procedure 04/01/2019 Office Visit Pain Management Khoa Gallagher MD [address] [place] [address] [phone] [facility] Start: 03-09-2019 End: 03-09-2019 Office Visit 03/09/2019 Office Visit Pain Management Khoa Gallagher MD [address] [place] [address] [phone] [facility] Start: 01-12-2019 End: 01-12-2019 Office Visit 01/12/2019 Office Visit Physical Medicine and Rehab Bib Medrano, DO [address] [place] [address] [phone] [facility] PMR Start: 01-08-2019 End: 01-08-2019 Office Visit 01/08/2019 Office Visit Pain Management Khoa Gallagher MD [address] [place], [place] [address] [facility] Start: 12-26-2018 End: 12-26-2018 Ancillary Procedure 12/26/2018 Ancillary Procedure Radiology [facility] Start: 11-02-2018 Influenza vaccination Flu vaccine (#1) [place], [place] Start: 2017 Cholesterol [Mass/volume] in Serum or Plasma Cholesterol [facility] Start: 2017 COLOGUARD (FIT-DNA) COLOGUARD (FIT-DNA) Start: 2017 Colonoscopy COLONOSCOPY Start: 2017 COLORECTAL CANCER SCREENING COLORECTAL CANCER SCREENING Start: [address] COLONOGRAPHY Start: 2017 DIABETES SCREEN DIABETES SCREEN Start: 2017 FECAL OCCULT BLOOD FECAL OCCULT BLOOD Start: 2017 Lipid 1996 panel - Serum or Plasma Lipid Screening Start: 2017 LIPID SCREEN LIPID SCREEN Start: 2017 Screening for malignant neoplasm of colon [facility] Start: 2017 SIGMOIDOSCOPY SIGMOIDOSCOPY Start: 2012 Lipid panel LIPID SCREENING [facility] Start: 2012 Mammography Start: 2012 Screening for malignant neoplasm of breast [facility] Start: 2002 HPV TESTING HPV TESTING Start: 2002 Screening for malignant neoplasm of cervix [facility] Start: 2002 Zoledronic acid therapy ALPHA-1 ANTITRYPSIN DEFICIENCY SCREENING Start: 1994 DTaP/Tdap/Td Vaccines (1 - Tdap) DTaP/Tdap/Td Vaccines (1 - Tdap) [facility] Start: 1993 Cervical cancer screen Cervical cancer screen [place], [place] Start: 1993 PAP TESTING PAP TESTING Start: 1993 Screening for malignant neoplasm of cervix [facility] Start: 1991 DTaP/Tdap/Td vaccine (1 - Tdap) DTaP/Tdap/Td vaccine (1 - Tdap) [facility] Start: 1991 DTaP/Tdap/Td Vaccines (1 - Tdap) DTaP/Tdap/Td Vaccines (1 - Tdap) [facility] Start: 1991 Hepatitis A (HAV) Vaccine (optional start 19+ years) Hepatitis A (HAV) Vaccine (optional start 19+ years) [facility] Start: 1991 Hepatitis B vaccination [facility] Start: 1991 Hepatitis B Vaccine (1 of 3 - 19+ 3-dose series) Hepatitis B Vaccine (1 of 3 - 19+ 3-dose series) Start: 1991 Hepatitis B Vaccines (1 of 3 - 19+ 3-dose series) Hepatitis B Vaccines (1 of 3 - 19+ 3-dose series) [facility] Start: 1991 Third diphtheria, tetanus and acellular pertussis (DTaP) vaccination TDAP (ADULT) [facility] Start: 1991 Urine microalbumin profile Start: 1990 ANNUAL PCP TEAM CHRONIC DISEASE VISIT ANNUAL PCP TEAM CHRONIC DISEASE VISIT Start: 1990 Depression Screening Depression Screening Start: 1990 [facility] Start: 1990 HEPATITIS C SCREENING HEPATITIS C SCREENING Start: 1990 HIV SCREENING HIV SCREENING Start: 1990 HIV screening HIV Screening Start: 1990 SPIROMETRY SPIROMETRY Start: 1990 Tetanus + diphtheria + acellular pertussis vaccine (product) Tdap Booster [facility] Start: 1988 COVID-19 Vaccine (1) COVID-19 Vaccine (1) [employer] Phone: Start: 1987 HIV screen [facility] [place] Start: 1987 HIV screening [facility] [employer] Start: 1984 COVID-19 Vaccine (1) COVID-19 Vaccine (1) [employer] Phone: Start: 1984 Depression Monitoring Depression Monitoring [facility] [employer] Start: 1984 Depression Screening Depression Screening [facility] Start: 1983 DTaP/Tdap/Td vaccine (1 - Tdap) DTaP/Tdap/Td vaccine (1 - Tdap) [place] Start: 1978 PNEUMOCOCCAL (1 - PCV) PNEUMOCOCCAL (1 - PCV) [facility] Start: 1978 Pneumococcal vaccination Pneumococcal Vaccine (1 - PCV) Start: 1978 Pneumococcal Vaccine: Pediatrics (0 to 5 Years) and At-Risk Patients (6 to 64 Years) (1 - PCV) Pneumococcal Vaccine: Pediatrics (0 to 5 Years) and At-Risk Patients (6 to 64 Years) (1 - PCV) [facility] Start: 1973 MMR Vaccines (1 of 1 - Standard series) MMR Vaccines (1 of 1 - Standard series) [facility] Start: 1972 COVID-19 VACCINE (#1) COVID-19 VACCINE (#1) Start: 1972 HEPATITIS B (1 of 3 - 3-dose series) HEPATITIS B (1 of 3 - 3-dose series) Start: 1972 Hepatitis B Vaccine (1 of 3 - 3-dose series) Hepatitis B Vaccine (1 of 3 - 3-dose series) Start: 1972 Hepatitis B Vaccines (1 of 3 - 3-dose series) Hepatitis B Vaccines (1 of 3 - 3-dose series) [facility] Start: 1972 Hepatitis C screening [facility] Start: 1972 HIV screening HIV Screening [facility] Start: 1972 [address] Panel [facility] Start: 1972 Screening for malignant neoplasm of colon [facility] Start: 1972 Tetanus vaccination TETANUS [facility] Start: 1972 Yearly Adult Physical Yearly Adult Physical [facility] Acupuncture 1/> ndle s w/o elec stimj init 15 min ACUPUNCT W/O STIMUL 15 MIN Procedures Routine Chronic bilateral low back pain without sciatica Ordered: 08/28/2023 [facility] Work Phone: Comment on above: Ordered: 08/28/2023 Acupuncture 1/> ndle s w/o elec stimj init 15 min ACUPUNCT W/O STIMUL 15 MIN Procedures Routine Chronic bilateral low back pain without sciatica Ordered: 09/20/2023 [facility] Work Phone: Comment on above: Ordered: 09/20/2023 Acupuncture 1/> ndls w/o elec stimj ea 15 min ACUPUNCT W/O STIMUL ADDL 15M Procedures Routine Chronic bilateral low back pain without sciatica Ordered: 08/28/2023 Comment on above: Ordered: 08/28/2023 Acupuncture 1/> ndls w/o elec stimj ea 15 min ACUPUNCT W/O STIMUL ADDL 15M Procedures Routine Chronic bilateral low back pain without sciatica Ordered: 09/20/2023 Comment on above: Ordered: 09/20/2023 B12/folate level [facility] Bacteria identified in Urine by Culture [facility] Bacteria identified in Urine by Culture [facility] CBC W Auto Different ial panel - Blood [facility] End: 06-17-2024 CBC W Auto Differential panel - Blood CBC with Auto Differential Lab STAT One Time for 1 Occurrences starting 06/17/2024 until 06/17/2024 [facility] [employer] Comment on above: One Time for 1 Occurrences starting 06/02 until 06/17/2024 End: 09-27-2024 CBC W Auto Differential panel - Blood CBC with Auto Differential Lab STAT One Time for 1 Occurrences starting 09/27/2024 until 09/27/2024 [employer] Comment on above: One Time for 1 Occurrences starting 09/02 until 09/27/2024 Chiropractic manipulative tx spinal 3-4 regions CHIROPRAC MANIP,SPINAL,3-4 REGIONS Procedures Routine Segmental and somatic dysfunction of cervical region Segmental and somatic dysfunction of pelvic region Segmental and somatic dysfunction of sacral region Ordered: 08/28/2023 Comment on above: Ordered: 08/28/2023 Chiropractic manipulative tx spinal 3-4 regions CHIROPRAC MANIP,SPINAL,3-4 REGIONS Procedures Routine Segmental and somatic dysfunction of cervical region Segmental and somatic dysfunction of pelvic region Segmental and somatic dysfunction of sacral region Ordered: 09/20/2023 Comment on above: Ordered: 09/20/2023 End: 09-27-2024 CK CK Lab STAT One Time for 1 Occurrences starting 09/27/2024 until 09/27/2024 [employer] Comment on above: One Time for 1 Occurrences starting 09/02 until 09/27/2024 Comprehensive metabo lic 1999 panel - Serum or Plasma [facility] End: 06-17-2024 Comprehensive metabolic 2000 panel - Serum or Plasma CMP Lab STAT One Time for 1 Occurrences starting 06/17/2024 until 06/17/2024 [facility] Comment on above: One Time for 1 Occurrences starting 06/02 until 06/17/2024 End: 09-27-2024 Comprehensive metabolic 2000 panel - Serum or Plasma Comprehensive Metabolic Panel Lab STAT One Time for 1 Occurrences starting 09/27/2024 until 09/27/2024 [facility] Comment on above: One Time for 1 Occurrences starting 09/02 until 09/27/2024 End: 04-10-2024 CT Head WO contrast [facility] Comment on above: Once for 1 Occurrences starting 04/10/19 until 04/10/2024 End: 04-10-2024 CT Lumbar spine WO contrast [facility] Comment on above: Once for 1 Occurrences starting 04/10/19 until 04/10/2024 End: 05-15-2024 CT Lumbar spine WO contrast [facility] Work Phone: Comment on above: Once for 1 Occurrences starting 05/16/19 until 05/15/2024 End: 10-18-2023 Culture, Urine [facility] Comment on above: One Time for 1 Occurrences starting 10/02 until 10/18/2023 End: 10-21-2024 Culture, Urine [facility] Work Phone: Comment on above: One Time for 1 Occurrences starting 10/03 until 10/21/2024 ECG 12 lead ECG 12 lead ECG STAT 05/17/2024 6:34 AM EDT [facility] Work Phone: EKG 12 Lead EKG 12 Lead ECG STAT 10/18/2023 10:03 AM EDT [facility] EKG 12 Lead EKG 12 Lead ECG STAT 05/20/2024 1:27 PM EDT [facility] EKG 12 Lead EKG 12 Lead ECG STAT 06/03/2024 9:57 AM EDT [facility] Work Phone: EKG 12 Lead EKG 12 Lead ECG STAT 06/10/2024 1:27 PM EDT [employer] End: 06-17-2024 EKG 12 Lead EKG 12 Lead ECG STAT One Time for 1 Occurrences starting 06/17/2024 until 06/17/2024 [employer] Comment on above: One Time for 1 Occurrences starting 06/02 until 06/17/2024 EKG 12 Lead EKG 12 Lead ECG STAT 08/29/2024 4:45 AM EDT [facility] EKG 12 Lead (Abn HR) EKG 12 Lead (Abn HR) ECG STAT 05/22/2024 12:45 PM EDT [facility] EKG 12 Lead (Chest Pain) EKG 12 Lead (Chest Pain) ECG STAT 05/25/2024 10:26 AM EDT [facility] End: 05-17-2024 Electrocardiogram, 12-lead [facility] Work Phone: Comment on above: As needed until discontinued starting Once for 1 Occurrenc es starting 05/17/2024 until 05/17/2024 End: 05-17-2024 Extra Urine [employer] Extra Urine [facility] [employer] Lab Timed Once for 1 Occurrences starting 05/17/2024 until 05/17/[address] [facility] Work Phone: Comment on above: Once for 1 Occurrences starting 05/18/19 until 05/17/2024 Hemoglobin A1c/Hemoglobin.total in Blood [facility] Lipid panel [facility] End: 09-27-2024 Magnesium [Mass/volume] in Serum or Plasma Magnesium Lab STAT One Time for 1 Occurrences starting 09/27/2024 until 09/27/2024 [employer] Comment on above: One Time for 1 Occurrences starting 09/02 until 09/27/2024 Magnesium measurement [facility] Miscellaneous Sendout 1 Miscella neous Sendout 1 Lab Routine Joint swelling Fatigue, unspecified type Elevated erythrocyte sedimentation rate RED positive 11/30/2019 2:49 PM EDT [employer] [place], [place] End: 10-27-2024 MR Shoulder - left WO contrast [facility] Comment on above: Once for 1 Occurrences starting 10/28/19 until 10/27/2024 End: 01-07-2019 MRI BRAIN W WO CONTRAST MRI BRAIN W WO CONTRAST Imaging Routine Nonintractable headache, unspecified chronicity pattern, unspecified headache type 1 Occurrences starting 01/07/2019 until 01/07/2019 [facility] [employer] [place], [place] Comment on above: 1 Occurrences starting 01/07/2019 until 01/07/2019 MRI LUMBAR SPINE W W O CONTRAST MRI LUMBAR SPINE W WO CONTRAST Imaging STAT 08/17/2022 9:53 AM EDT [facility] [employer] Work Phone: End: 11-21-2023 Mri pelvis w/o & w/contrast material MRI PELVIS ORTHO GENERAL WO/W IVCON Radiology Routine Chronic low back pain with sciatica, sciatica laterality unspecified, unspecified back pain laterality Sacroiliac pain Disorder of bone 1 Occurrences starting 10/22/2022 until 11/21/2023 [facility] Work Phone: Comment on above: 1 Occurrences starting 10/22/2022 until 11/21/2023 Nebulizer therapy [facility] Work Phone: Comment on above: Every 6hr As Needed until discontinued s tarting 06/30/2020 Q12H until discontin ued starting 06/30/2020 Njx dx/ther sbst intrlmnr lmbr/sac w/img gdn EPI LUMBAR OR SACRAL W/IMAGING Procedures Routine Lumbar radiculopathy Ordered: 10/08/2023 [facility] Work Phone: Comment on above: Ordered: 10/08/2023 Oxygen therapy [Mini mum Data Set] Initiate Oxygen Therapy Protocol Respiratory Care Routine Daily until discontinued starting 06/30/2020 [employer] Work Phone: Comment on above: Daily until discontinued starting 2020 Oxygen therapy [Mini mum Data Set] Initiate Oxygen Therapy Protocol Respiratory Care Routine As Needed until discontinued starting 03/08/2024 [facility] [employer] Work Phone: Comment on above: As Needed until discontinued starting Patient Education [facility] Patient referral [facility] Work Phone: End: 02-02-2019 , urine POCT , urine POCT Point of Care Testing Routine One Time for 1 Occurrences starting 02/02/2019 until 02/02/2019 [employer] [place], [place] Comment on above: One Time for 1 Occurrences starting 04/2018 until 02/02/2019 End: 03-17-2019 , urine POCT , urine POCT Point of Care Testing Routine One Time for 1 Occurrences starting 03/17/2019 until 03/17/2019 [employer] Work Phone: Comment on above: One Time for 1 Occurrences starting 03/04 until 03/17/2019 Thyroid stimulating hormone measurement [facility] End: 03-09-2024 Thyrotropin [Units/volume] in Serum or Plasma [employer] Work Phone: Comment on above: One Time for 1 Occurrences starting 08/2024 until 03/09/2024 End: 03-09-2024 Thyroxine (T4) free [Mass/volume] in Serum or Plasma [facility] Comment on above: One Time for 1 Occurrences starting 08/2024 until 03/09/2024 End: 06-05-2024 Troponin I.cardiac [Mass/volume] in Serum or Plasma Troponin Lab STAT One Time for 1 Occurrences starting 06/05/2024 until 06/05/2024 [employer] Comment on above: One Time for 1 Occurrences starting 06/2024 until 06/05/2024 End: 06-17-2024 Troponin I.cardiac [Mass/volume] in Serum or Plasma Troponin Lab STAT One Time for 1 Occurrences starting 06/17/2024 until 06/17/2024 [employer] Comment on above: One Time for 1 Occurrences starting 06/02 until 06/17/2024 End: 05-17-2024 Troponin I.cardiac panel - Serum or Plasma by High sensitivity method [facility] Work Phone: Comment on above: STAT (Lab) for 1 Occurrences starting until 05/17/2024 Urinalysis complete W Reflex Culture panel - Urine [facility] End: 05-17-2024 Urinalysis complete W Reflex Culture panel - Urine [facility] Work Phone: Comment on above: Once (Lab) for 1 Occurrences starting until 05/17/2024 Once for 1 Occurrenc es starting 05/17/2024 until 05/17/2024 End: 10-21-2024 US Retroperitoneum [facility] [employer] Comment on above: Once for 1 Occurrences starting 10/22/19 until 10/21/2024 End: 03-09-2024 Vitamin B12 & Folate [facility] [employer] [facility] Comment on above: One Time for 1 Occurrences starting 08/2024 until 03/09/2024 Vitamin D, 25-hydrox y measurement [facility] End: 01-07-2019 VL DUP CAROTID BILATERAL VL DUP CAROTID BILATERAL Imaging Routine Syncope and collapse 1 Occurrences starting 01/07/2019 until 01/07/2019 [facility] [place] Comment on above: 1 Occurrences starting 01/07/2019 until 01/07/2019 XR Ankle - left 3 Views XR ANKLE LEFT 3 VIEWS Imaging STAT 08/06/2023 7:05 AM EDT [employer] Work Phone: End: 02-10-2024 XR Cervical spine 2 or 3 Views [facility] Service [facility] Work Phone: Comment on above: Once for 1 Occurrences starting 02/10/20 24 until 02/10/2024 End: 06-05-2024 XR Chest 2 Views XR CHEST (2 VW) Imaging STAT Once for 1 Occurrences starting 06/05/2024 until 06/05/2024 [facility] [employer] [facility] Work Phone: Comment on above: Once for 1 Occurrences starting 06/06/19 25 until 06/05/2024 End: 02-05-2023 XR Hip Views XR hip left with pelvis when performed 2 or 3 views Imaging STAT Once for 1 Occurrences starting 02/05/2023 until 02/05/2023 [facility] Service [facility] Work Phone: Comment on above: Once for 1 Occurrences starting 02/06/20 23 until 02/05/2023 End: 02-10-2024 XR Hip Views [facility] Work Phone: Comment on above: Once for 1 Occurrences starting 02/10/20 until 02/10/2024 End: 08-24-2024 XR Knee - right 3 Views [facility] Comment on above: Once for 1 Occurrences starting 08/25/19 until 08/24/2024 End: 04-07-2024 XR Pelvis and Hip - right 2 Views [facility] Comment on above: Once for 1 Occurrences starting 04/07/19 until 04/07/2024 XR Sacrum and Coccyx Views XR SACRUM-COCCYX 3 VIEWS Imaging STAT 08/06/2023 7:04 AM EDT [facility] End: 02-10-2024 XR Shoulder - right [address] [facility] Work Phone: Comment on above: Once for 1 Occurrences starting 02/10/20 until 02/10/2024 End: 09-25-2024 XR Spine Lumbar and Sacrum GE 6 Views XR LUMBAR SPNE COMP 6V AP/LAT/BOTH OBL/FLEX/EXT (AK) Radiology Routine Chronic bilateral low back pain without sciatica 1 Occurrences starting 08/28/2023 until 09/25/2024 Comment on above: 1 Occurrences starting 08/28/2023 until 09/25/2024 [facility] Immunizations Immunization Date Immunization Notes Care Provider [facility] 02-28-2024 tetanus and diphther ia toxoids, adsorbed, preservative free, for adult use (5 Lf of tetanus toxoid and 2 Lf of diphtheria toxoid) Maria Elena Montalvo MD Work Phone: [facility] 12-04-2023 influenza, seasonal, injectable [facility] 12-04-2023 influenza virus vaccine, unspecified formulation Bayron Fields APRN.CNP Work Phone: 12-30-2021 Influenza, injectabl e, Madin Cindy Canine Kidney, preservative free, quadrivalent Rosalie Vesta DO Work Phone: [facility] 12-30-2021 influenza virus vaccine, unspecified formulation Matt Rosado MD Work Phone: [facility] 06-06-2021 influenza, seasonal, injectable Mri Bore/1.5t) Work Phone: 03-06-2021 Moderna Monovalent (12+ yrs) COVID-19 vaccine, mRNA, spike protein, LNP, PF, 100 mcg/0.5 mL (WVQ=223) Rosalie Vesta DO Work Phone: [facility] 01-30-2021 Influenza, injectabl e, Madin Cindy Canine Kidney, preservative free, quadrivalent [facility] 1 [facility] 01-30-2021 influenza virus vaccine, unspecified formulation [facility] 07-19-2020 influenza, seasonal, injectable Mri Bore/1.5t) Work Phone: 07-19-2020 pneumococcal vaccine , unspecified formulation Mri Bore/1.5t) Work Phone: 07-18-2020 COVID-19 vaccine, unspecified formulation Mri Bore/1.5t) Work Phone: 06-28-2020 Moderna Monovalent (12+ yrs) COVID-19 vaccine, mRNA, spike protein, LNP, PF, 100 mcg/0.5 mL (QGQ=450) Rosalie Vesta DO Work Phone: [facility] 05-31-2020 Moderna Monovalent (12+ yrs) COVID-19 vaccine, mRNA, spike protein, LNP, PF, 100 mcg/0.5 mL (LXK=534) Rosalie Vesta DO Work Phone: [facility] 11-24-2019 influenza, injectabl e, quadrivalent, preservative free Rosalie Vesta DO Work Phone: [facility] 11-24-2019 pneumococcal polysaccharide vaccine, 23 valent Rosalie Vesta DO Work Phone: [facility] 12-24-2018 influenza, injectabl e, quadrivalent, preservative free Rosalie Chevy DO Work Phone: [facility] 12-16-2017 Influenza, injectabl e, Madin Cindy Canine Kidney, preservative free, quadrivalent Rosalie Chevy DO Work Phone: [facility] Payers Date Payer Category Payer Unknown [id number] 08-24-2024 Unknown [place] daniel [id number] 08-24-2024 Unknown [id number] 05-17-2024 Legal Liability / Liability Insurance ACCIDENT RELATED NON-MEDICARE [id number] 05-17-2024 Unknown GENERIC [employer] INS URANCE [id number] 12-23-2022 Self-pay [id number] 04-04-2022 Medicaid [id number] 05-17-2021 Unknown GENERIC AUTO INS URANCE [id number] 05-17-2021 Unknown GENERIC AUTO INS URANCE [place] [id number] 01-02-2019 Medicaid (Managed Care) 1.2. 840.930741.1.13.647.2 .7.9.788808.919415.315 01-02-2019 Medicaid HMO 1.2.840.899429. 1.13.680.2 .7.9.336414.988089.315 01-02-2019 Unknown 03-04-2014 Unknown [facility] xxxxxxxxxxxx 2014-Present [phone] [facility] [address] [place] [address] xxxxxxxxxxxx 1.2.840.630633.1.13.239.2 .7.3.072967.315 1972 Unknown [id number] 2.16.840.1.419881.3.579.2 .356 1972 Unknown [id number] 2.16.840.1.242379.3.579.2 .9 1972 Unknown [id number] 2.16.840.1.661916.3.579.2 .9 1972 Unknown [id number] 2.16.840.1.574558.3.579.2 .9 1972 Unknown [id number] 2.16.840.1.000896.3.579.2 .1069 1972 Unknown [id number] 2.16.840.1.751361.3.579.2 .9 1972 Unknown [id number] 2.16.840.1.337665.3.579.2 .9 1972 Unknown [id number] 2.16.840.1.931610.3.579.2 .1069 1972 Unknown [id number] 2.16.840.1.532888.3.579.2 .204 1972 Unknown [id number] 2.16.840.1.889504.3.579.2 .204 1972 Unknown [id number] 2.16.840.1.430269.3.579.2 .204 1972 Unknown [id number] 2.16.840.1.305087.3.579.2 .204 1972 Unknown [id number] 2.16.840.1.575504.3.579.2 .204 1972 Unknown [id number] 2.16.840.1.467101.3.579.2 .204 1972 Unknown [id number] 2.16.840.1.840706.3.579.2 .204 1972 Unknown [id number] 2.16.840.1.161890.3.579.2 .204 1972 Unknown [id number] 2.16.840.1.384499.3.579.2 .204 1972 Unknown [id number] 2.16.840.1.413237.3.579.2 .204 1972 Unknown [id number] 2.16.840.1.345280.3.579.2 .204 1972 Unknown [id number] 2.16840.1.424419.3.579.2 .983 1972 Unknown [id number] 2.16840.1.927128.3.579.2 .903 1972 Unknown [id number] 2.16.840.1.695306.3.579.2 .627 1972 Unknown [id number] 2.16.840.1.906555.3.579.2 .627 1972 Unknown [id number] 2.16840.1.082936.3.579.2 .627 1972 Unknown [id number] 2.16.840.1.471855.3.579.2 .1245 1972 Unknown [id number] 2.16.840.1.078963.3.579.2 .1244 1972 Unknown [id number] 2.16.840.1.424310.3.579.2 .1242 1972 Unknown [id number] 2.16840.1.552728.3.579.2 .1242 1972 Unknown [id number] 2.16.840.1.209113.3.579.2 .598 1972 Unknown [id number] 2.16.840.1.051613.3.579.2 .598 1972 Unknown [id number] 2.16.840.1.003237.3.579.2 .627 1972 Unknown [id number] 2.16840.1.775370.3.579.2 .627 1972 Unknown [id number] 2.16840.1.161011.3.579.2 .1243 1972 Unknown [id number] 2.840.1.400497.3.579.2 .732 1972 Unknown [id number] 2.840.1.402574.3.579.2 .732 1972 Unknown [id number] 2.840.1.907644.3.579.2 .204 1972 Unknown [id number] 2.840.1.622122.3.579.2 .204 1972 Unknown [id number] 2.840.1.577136.3.579.2 .204 1972 Unknown [id number] 2.840.1.284274.3.579.2 .204 1972 Unknown [id number] 2.840.1.342921.3.579.2 .204 1972 Unknown [id number] 2.16840.1.222360.3.579.2 .204 1972 Unknown [id number] 2.16840.1.712219.3.579.2 .204 1972 Unknown [id number] 2.16840.1.379371.3.579.2 .204 1972 Unknown [id number] 2.16840.1.017726.3.579.2 .204 1972 Unknown [id number] 2.16.840.1.326775.3.579.2 .204 1972 Unknown [id number] 2.16.840.1.851566.3.579.2 .204 1972 Unknown [id number] 2.16.840.1.531399.3.579.2 .204 1972 Unknown [id number] 2.16.840.1.626591.3.579.2 .204 1972 Unknown [id number] 2.16.840.1.385659.3.579.2 .204 1972 Unknown [id number] 2.16840.1.486471.3.579.2 .204 1972 Unknown [id number] 2.16840.1.635539.3.579.2 .204 1972 Unknown [id number] 2.16840.1.924656.3.579.2 .204 1972 Unknown [id number] 2.16840.1.247747.3.579.2 .204 1972 Unknown [id number] 2.16840.1.444333.3.579.2 .204 1972 Unknown [id number] 2.16840.1.934977.3.579.2 .204 1972 Unknown [id number] 2.16840.1.178011.3.579.2 .204 1972 Unknown [id number] 2.16840.1.114853.3.579.2 .204 1972 Unknown [id number] 2.16840.1.198421.3.579.2 .204 1972 Unknown [id number] 2.16840.1.268134.3.579.2 .204 1972 Unknown [id number] 2.16840.1.621056.3.579.2 .204 1972 Unknown [id number] 2.16840.1.310093.3.579.2 .204 1972 Unknown [id number] 2.16.840.1.379060.3.579.2 .627 1972 Unknown [id number] 2.16.840.1.014110.3.579.2 .627 1972 Unknown [id number] 2.16.840.1.858051.3.579.2 .627 1972 Unknown [id number] 2.16.840.1.418143.3.579.2 .627 1972 Unknown [id number] 2.16840.1.977606.3.579.2 .1242 1972 Unknown [id number] 2.16840.1.486887.3.579.2 .1242 1972 Unknown [id number] 2.16840.1.824705.3.579.2 .1242 1972 Unknown [id number] 2.16840.1.455737.3.579.2 .1242 1972 Unknown [id number] 2.16840.1.779295.3.579.2 .1242 1972 Unknown [id number] 2.16.840.1.783753.3.579.2 .1242 1972 Unknown [id number] 2.16840.1.942304.3.579.2 .1242 1972 Unknown [id number] 2.16.840.1.977071.3.579.2 .124 1972 Unknown [id number] 2.16.840.1.239498.3.579.2 .1242 1972 Unknown [id number] 2.16.840.1.881146.3.579.2 .1244 1972 Unknown [id number] 2.16.840.1.986696.3.579.2 .204 1972 Unknown [id number] 2.16840.1.181787.3.579.2 .204 1972 Unknown [id number] 2.16840.1.925204.3.579.2 .204 1972 Unknown [id number] 2.16.840.1.638228.3.579.2 .204 1972 Unknown [id number] 2.16840.1.000364.3.579.2 .204 1972 Unknown [id number] 2.16840.1.609204.3.579.2 .204 1972 Unknown [id number] 2.16840.1.877117.3.579.2 .1972 Unknown [id number] 2.16840.1.097618.3.579.2 .204 1972 Unknown [id number] 2.840.1.910282.3.579.2 .1972 Unknown [id number] 2.840.1.231991.3.579.2 .204 1972 Unknown [id number] 2.840.1.475478.3.579.2 .1972 Unknown [id number] 2.16840.1.842529.3.579.2 .204 1972 Unknown [id number] 2.840.1.066941.3.579.2 .204 1972 Unknown [id number] 2.16840.1.562937.3.579.2 .204 1972 Unknown [id number] 2.16840.1.989111.3.579.2 .204 1972 Unknown [id number] 2.16840.1.244179.3.579.2 .204 1972 Unknown [id number] 2.16840.1.289119.3.579.2 .204 1972 Unknown [id number] 2.16840.1.854136.3.579.2 .204 1972 Unknown [id number] 2.16.840.1.256574.3.579.2 .204 1972 Unknown [id number] 2.16.840.1.887624.3.579.2 .204 1972 Unknown [id number] 2.16.840.1.165850.3.579.2 .204 1972 Unknown [id number] 2.16.840.1.578631.3.579.2 .204 1972 Unknown [id number] 2.16.840.1.862814.3.579.2 .204 1972 Unknown [id number] 2.16.840.1.107608.3.579.2 .204 1972 Unknown [id number] 2.16.840.1.644120.3.579.2 .1972 Unknown [id number] 2.16.840.1.422304.3.579.2 .204 1972 Unknown [id number] 2.16.840.1.760437.3.579.2 .204 1972 Unknown [id number] 2.16.840.1.677230.3.579.2 .204 1972 Unknown [id number] 2.16.840.1.513452.3.579.2 .204 1972 Unknown [id number] 2.16.840.1.393961.3.579.2 .204 1972 Unknown [id number] 2.16.840.1.655471.3.579.2 .204 1972 Unknown [id number] 2.16.840.1.753745.3.579.2 .204 1972 Unknown [id number] 2.16.840.1.903205.3.579.2 .204 1972 Unknown [id number] 2.16.840.1.298571.3.579.2 .204 1972 Unknown [id number] 2.16840.1.905368.3.579.2 .204 1972 Unknown [id number] 2.16840.1.852233.3.579.2 .204 1972 Unknown [id number] 2.16840.1.659848.3.579.2 .204 1972 Unknown [id number] 2.16840.1.877704.3.579.2 .1972 Unknown [id number] 2.840.1.226492.3.579.2 .1972 Unknown [id number] 2.840.1.854293.3.579.2 .1972 Unknown [id number] 2.840.1.211589.3.579.2 .1972 Unknown [id number] 2.840.1.609904.3.579.2 .1972 Unknown [id number] 2.840.1.275370.3.579.2 .1972 Unknown [id number] 2.840.1.785665.3.579.2 .1972 Unknown [id number] 2.840.1.203997.3.579.2 .204 1972 Unknown [id number] 2.840.1.008603.3.579.2 .204 1972 Unknown [id number] 2.840.1.295234.3.579.2 .204 1972 Unknown [id number] 2.16840.1.303787.3.579.2 .1972 Unknown [id number] 2.16840.1.593523.3.579.2 .204 1972 Unknown [id number] 2.16840.1.809173.3.579.2 .204 1972 Unknown [id number] 2.16.840.1.485572.3.579.2 .204 1972 Unknown [id number] 2.16.840.1.764809.3.579.2 .204 1972 Unknown [id number] 2.16.840.1.298160.3.579.2 .204 1972 Unknown [id number] 2.16.840.1.221980.3.579.2 .204 1972 Unknown [id number] 2.16.840.1.052872.3.579.2 .204 1972 Unknown [id number] 2.16840.1.081354.3.579.2 .204 1972 Unknown [id number] 2.16840.1.821188.3.579.2 .204 1972 Unknown [id number] 2.16840.1.888469.3.579.2 .204 1972 Unknown [id number] 2.16840.1.727561.3.579.2 .204 1972 Unknown [id number] 2.16840.1.010960.3.579.2 .204 1972 Unknown [id number] 2.16840.1.659746.3.579.2 .204 1972 Unknown [id number] 2.16840.1.759133.3.579.2 .204 1972 Unknown [id number] 2.16.840.1.055558.3.579.2 .204 1972 Unknown [id number] 2.16840.1.854847.3.579.2 .204 1972 Unknown [id number] 2.16840.1.891580.3.579.2 .204 1972 Unknown [id number] 2.16840.1.460287.3.579.2 .204 1972 Unknown [id number] 2.16.840.1.240799.3.579.2 .204 1972 Unknown [id number] 2.16.840.1.724755.3.579.2 .204 1972 Unknown [id number] 2.16.840.1.138026.3.579.2 .204 1972 Unknown [id number] 2.16840.1.715248.3.579.2 .204 1972 Unknown [id number] 2.16.840.1.442581.3.579.2 .204 1972 Unknown [id number] 2.16840.1.634419.3.579.2 .204 1972 Unknown [id number] 2.16840.1.913414.3.579.2 .204 1972 Unknown [id number] 2.840.1.167040.3.579.2 .204 03-04-1957 Unknown [id number] 1.2.840.149366.1.13.239.2 .7.3.069840.315 Unknown [id number] 2.840.1.220101.3.579.2 .443 Unknown [id number] 2.840.1.163407.3.579.2 .630 Unknown [id number] 2840.1.008323.3.579.2 .630 Unknown [id number] 2.16840.1.258823.3.579.2 .630 Unknown [id number] 2.16840.1.657278.3.579.2 .630 Unknown [id number] 2.16840.1.844981.3.579.2 .630 Unknown [id number] 2.16840.1.205819.3.579.2 .630 Unknown [id number] 2.840.1.743193.3.579.2 .462 Unknown [id number] 2.16.840.1.744174.3.579.2 .462 Unknown [id number] 2.16.840.1.389452.3.579.2 .462 Unknown [id number] 2.16.840.1.641808.3.579.2 .921 Unknown [id number] 2.16.840.1.385202.3.579.2 .921 Unknown [id number] 2.16.840.1.151177.3.579.2 .921 Unknown [id number] 2.16.840.1.818871.3.579.2 .921 Unknown [id number] 2.16.840.1.273215.3.579.2 .921 Unknown [id number] 2.16.840.1.650935.3.579.2 .921 Unknown [id number] 2.16.840.1.089856.3.579.2 .579 Unknown [id number] 2.16.840.1.325099.3.579.2 .579 Unknown [id number] 2.16.840.1.799551.3.579.2 .579 Unknown [id number] 2.16.840.1.509089.3.579.2 .579 Unknown [id number] 2.16.840.1.359345.3.579.2 .579 Unknown [id number] 2.16.840.1.779129.3.579.2 .579 Unknown [id number] 2.16.840.1.768216.3.579.2 .579 Unknown [id number] 2.16.840.1.619267.3.579.2 .579 Unknown [id number] 2.16.840.1.157643.3.579.2 .579 Unknown [id number] 2.16.840.1.940260.3.579.2 .579 Unknown [id number] 2.16.840.1.417862.3.579.2 .579 Unknown [id number] 2.16.840.1.190910.3.579.2 .579 Unknown [id number] 2.16.840.1.869143.3.579.2 .212 Unknown [id number] 2.16.840.1.579904.3.579.2 .212 Unknown [id number] 2.16.840.1.451831.3.579.2 .212 Unknown [id number] 2.16.840.1.858264.3.579.2 .212 Unknown [id number] 2.16.840.1.338105.3.579.2 .212 Unknown [id number] 2.16.840.1.088454.3.579.2 .212 Unknown [id number] 2.16.840.1.968023.3.579.2 .212 Unknown [id number] 2.16.840.1.316236.3.579.2 .212 Unknown [id number] 2.16.840.1.609325.3.579.2 .212 Unknown [id number] 2.16.840.1.841927.3.579.2 .212 Unknown [id number] 2.16.840.1.953830.3.579.2 .212 Unknown [id number] 2.16.840.1.577866.3.579.2 .212 Unknown [id number] 2.16.840.1.121444.3.579.2 .212 Social History Date Type Detail Facility Start: 12-03-2018 End: 03-17-2019 Tobacco smoking status NHIS Former smoker [place] Start: 03-04-2015 End: 06-03-2018 History of tobacco use Current smoker [place] Start: 03-04-2015 End: 06-03-2018 History of tobacco use Cigarette Smoker [place] Start: 12-03-2018 End: 10-16-2024 Cigarettes smoked current (pack per day) - Reported [place] Start: 12-03-2018 End: 10-16-2024 Alcohol intake No [employer] [facility] Start: 08-14-2011 Alcohol Comment rarely [facility] Start: 1970 Sex Assigned At Not on file [facility] Start: 01-08-2019 End: 09-02-2023 Alcohol intake Current non-drinker of alcohol (finding) [facility] Start: 11-17-2019 End: 07-25-2024 Tobacco use and exposure [facility] Start: 06-13-2022 End: 07-12-2024 Exposure to SARS-CoV-2 (event) Not sure [employer] Start: 11-04-2020 End: 03-07-2022 History SDOH Financial [employer] Phone: Start: 11-04-2020 End: 03-07-2022 History SDOH Food Worry 1 [employer] Phone: Start: 10-26-2021 End: 09-26-2022 Tobacco smoking status NHIS Occasional tobacco smoker [employer] Start: 10-28-2014 End: 08-13-2023 Tobacco smoking status INIS Never smoked tobacco Start: 11-19-2014 Alcohol intake Not Asked [facility] Start: 05-02-2022 End: 10-27-2024 Alcohol intake Lifetime non-drinker (finding) Start: 04-04-2023 End: 10-29-2024 Tobacco smoking consumption unknown [facility] Start: 08-01-2022 Never Smoker [facility] Start: 1970 Sex Assigned At Female [facility] How often to you have a drink containing alcohol? Never [facility] Start: 01-26-2022 How many standard drinks containing alcohol do you have on a typical day? Patient does not drink [facility] Start: 09-04-2022 Gender identity Identifies as female gender (finding) [facility] Start: 03-04-2015 End: 07-25-2024 Tobacco smoking status NHIS Smokes tobacco daily (finding) [facility] Start: 08-12-2022 No [facility] How hard is it for you to pay for the very basics like food, housing, medical care, and heating Not very hard [facility] (I/We) worried whether (my/our) food would run out before (I/we) got money to buy more. Never true [employer] At any time in the past 12 months, were you homeless or living in long-term [including now]? No [facility] Start: 04-04-2023 N [facility] Work Phone: Start: 04-04-2023 Y [facility] Work Phone: Tobacco smoking status [facility] Start: 08-01-2023 DENIES [facility] Work Phone: Start: 08-01-2023 DEBIES [facility] Work Phone: Start: 08-01-2023 Y - 1/2 PPD [facility] Work Phone: Start: 09-05-2023 YES. ABOUT 1/2 PPD [facility] Work Phone: Start: 09-29-2023 End: 07-12-2024 Alcohol intake Ex-drinker (finding) [facility] Work Phone: Start: 10-26-2023 Light Tobacco Smoker (< 10 cigarettes per day) [facility] Work Phone: Start: 10-26-2023 Yes Radha zaragoza [facility] Work Phone: Start: 12-16-2023 Tobacco smoking status Heavy tobacco smoker (finding) [facility] Start: 04-12-2012 End: 09-04-2022 Sex Female (finding) [facility] How often to you have a drink containing alcohol? Monthly or less [employer] How many standard drinks containing alcohol do you have on a typical day? 1 or 2 [facility] Start: 01-16-2024 1/2PPD [facility] Work Phone: Start: 03-19-2024 YES [facility] Work Phone: Start: 03-25-2024 Current Every Day Smoker Current Every Day Smoker [facility] Start: 07-07-2024 2 A DAY [facility] Work Phone: Start: 10-29-2024 0.5 PPD [facility] Work Phone: NEGATED: Highlighted row [facility] Functional Status Date Assessment Result Facility 10-20-2024 Total score [AUDIT-C] 0 10/21/19 25 12:55 PM Yamilet Toth, NIK [facility] 10-20-2024 [place] - suicide severity rating scale screener - recent [C-SSRS] [facility] Work Phone: 10-10-2024 [place] - suicide severity rating scale screener - recent [C-SSRS] [facility] Work Phone: 08-20-2024 [facility] - suicide severity rating scale screener - recent [C-SSRS] [facility] Work Phone: 07-12-2024 [place] - suicide severity rating scale screener - recent [C-SSRS] [facility] Work Phone: 04-11-2024 Functional Status Repositions self [facility] 12-22-2023 Functional Status Room check performed [facility] 10-23-2023 Are you deaf, or do you have serious difficulty hearing No 10/23/2023 4:29 PM Heidy Florence, RN [facility] 10-23-2023 Are you blind, or do you have serious difficulty seeing, even when wearing glasses No 10/23/2023 4:29 PM Heidy Florence, RN [facility] 10-23-2023 Do you have serious difficulty walking or climbing stairs No 10/23/2023 4:29 PM Heidy Florence, RN [facility] 10-23-2023 Do you have difficul ty dressing or bathing No 10/23/2023 4:29 PM EDHeidy Kinsey RN No 10-23-2023 Because of a physica l, mental, or emotional condition, do you have difficulty doing errands alone such as visiting a physician's office or shopping No 10/23/2023 4:29 PM Heidy Florence RN No 08-15-2023 Functional Status Awake [facility] 08-15-2023 Functional Status Standard Safet y ID band on, Call device within reach, Bed in low position, Wheels locked [facility] 06-02-2023 Functional status Normal [facility] Work Phone: 05-16-2023 Functional Status Assistive Device None [facility] 05-16-2023 Functional Status Repositions self [facility] 03-06-2023 Functional status Normal [facility] Work Phone: 12-21-2022 Functional status Normal [facility] Work Phone: 11-25-2022 Functional status Parent [facility] Work Phone: [facility] Mental Status Date Assessment Result Facility 04-11-2024 Mental Status Oriented x 4 [facility] 10-23-2023 Because of a physica l, mental, or emotional condition, do you have serious difficulty concentrating, remembering, or making decisions No 10/23/2023 4:29 PM Heidy Florence RN No 08-15-2023 Mental Status [facility]ed x [facility] 08-15-2023 [facility] 06-15-2023 Cognitive function Patient [employer] Person;Place;Time;Location /Situation [facility] Work Phone: 05-16-2023 Mental Status Orientation Oriented x 4 [facility] 05-16-2023 Mental Status [facility] 12-21-2022 Cognitive function Appropriate;Cooperativ e [facility] Work Phone: 11-25-2022 Cognitive function Mood Description Anxio us [facility] Work Phone: 09-25-2022 Cognitive function Patient Orien tation Person;Place;Time;Location /Situation [facility] Work Phone: 08-18-2022 Cognitive function Patient Orien tation Person;Place;Time;Location /Situation [facility] Work Phone: 08-17-2022 Cognitive function Patient Orien tation Person;Place;Time;Location /Situation [facility] Work Phone: Clinical Notes 03-17-2019 to 10-26-2024 Edward Parker MD PhD - 10/26/2024 1:15 PM EDTDischarge Aime Vincent MD - 10/20/2024 12:51 PM Libia Tyler MD - 10/20/2024 12:51 PM Libia Tyler MD - 10/20/2024 12:51 PM EDT Note Date & Type Note Facility 10-26-2024 History of Present illness Narrative Patient ID: Db Doan is a 54 y.o. female with a past medical history of ankylosing spondylitis who presents for initial evaluation of lumbar Back Pain. Referred by Dr. Duncan. Patient reports the lumbar and sacral pain began approximately 2 years ago with no inciting incident. She says that the pain has worsened over the last 5 days and is now 10/10 constant low back, R hip, R groin, and R leg pain. She has not attempted physical therapy. Has Lidoderm patches on today which do not help with pain. OTC medications, heat therapy, and ice therapy have been ineffective in treating pain. She has gone to the ED many times over the past 6 months seeking medication for pain relief. Onset, traumatic event: Location: Lumbar and sacral spine Radiation: right hip, right leg, and anterior and medial right leg Quality: dull,achy sharp stabbing Intensity: currently 10/10 Exacerbated by: Movement Relieved by: NA Treatment To Date: - Physical therapy: NA - Home exercise program after PT: NA - Previous injections/interventions: NA - Medications: Naproxen, flexoril, tylenol, duloxetine, gabapentin Patient denies bowel/bladder incontinence, denies fever, denies unintentional weight loss, denies clumsiness of hands, feet, or dropping things. Denies any constitutional or myelopathic symptomatology. Imaging: === 06/02/22 === MR LUMBAR SPINE WO CONTRAST - Impression - Mild lumbar spondylosis at L4-L5 and L5-S1 as detailed. === 10/10/24 === XR HIP RIGHT WITH PELVIS WHEN PERFORMED 2 OR 3 VIEWS - Impression - No acute findings. MACRO: None Signed by: Shabbir Law 10/10/2024 12:35 PM Dictation workstation: [id number] === 05/17/24 === CT THORACIC SPINE RETROSPECTIVE RECONSTRUCTION PROTOCOL - Impression - 1.No acute process in the chest, abdomen, or pelvis. 2.No acute osseous findings of the thoracic or lumbar spine. Signed by Siddhartha Barton MD Lab Results Component Value Date HGBA1C 4.8 07/30/2019 Current Outpatient Medications Medication Instructions acetaminophen (TYLENOL) 650 mg, oral, Every 6 hours PRN cyclobenzaprine (FLEXERIL) 10 mg, oral, 3 times daily PRN cyclobenzaprine (FLEXERIL) 10 mg, oral, 3 times daily PRN DULoxetine (CYMBALTA) 60 mg, Daily RT fcolnzvyeun-nyqsrnwmj-pwupeeyq (TRELEGY-ELLIPTA) 200-62.5-25 mcg blister with device 1 puff, inhalation, Daily gabapentin (NEURONTIN) 800 mg, 3 times daily hydrOXYzine pamoate (VISTARIL) 25 mg, 3 times daily PRN lamoTRIgine (LAMICTAL) 150 mg, Daily RT lidocaine (Lidoderm) 5 % patch 1 patch, transdermal, Daily, Remove & discard patch within 12 hours or as directed by . naproxen (NAPROSYN) 500 mg, oral, Every 12 hours predniSONE (Deltasone) 10 mg tablet Take three tablets orally day 1-3, two tablets day 4-6, and one tablet day 7-9 Medical History[1] Surgical History[2] Family History[3] RX Allergies[4] Objective There were no vitals filed for this visit. Physical Exam GENERAL EXAM Vital Signs: Vital signs to include heart rate, respiration rate, blood pressure, and temperature were reviewed. General Appearance: Awake, alert, healthy appearing, well developed, No acute distress. Head: Normocephalic without evidence of head injury. Neck: The appearance of the neck was normal without swelling with a midline trachea. Eyes: The eyelids and eyebrows exhibited no abnormalities. Pupils were not pin-point. Sclera was without icterus. Lungs: Respiration rhythm [...] regions were without ecchymosis or skin lesions. Musculoskeletal Exam: RLE strength: 5/5 hip flexors, 5/5 knee extensors, 5/5 ankle dorsiflexors, 5/5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 Right arm -- Physical Exam Constitutional: General: She is not in acute distress. Appearance: Normal appearance. She is normal weight. Cardiovascular: Rate and Rhythm: Normal rate and regular rhythm. Pulses: Normal pulses. Heart sounds: No murmur heard. Pulmonary: Effort: Pulmonary effort is normal. No respiratory distress. Breath sounds: Wheezing present. Abdominal: General: Abdomen is flat. Bowel sounds are normal. There is no distension. Palpations: Abdomen is soft. Tenderness: There is no abdominal tenderness. There is no guarding. Musculoskeletal: Right shoulder: Normal. Left shoulder: Tenderness and bony tenderness present. No swelling, deformity, effusion, laceration or crepitus. Decreased range of motion. Normal strength. Normal pulse. Right hip: Tenderness and bony tenderness present. No deformity, lacerations or crepitus. Decreased range of motion. Normal strength. Left hip: Normal. Right lower leg: No edema. Left lower leg: No edema. Skin: General: Skin is warm and dry. Coloration: Skin is not jaundiced. Neurological: Mental Status: She is alert. DIAGNOSTIC RESULTS RADIOLOGY (Per Emergency Physician): Interpretation per the Radiologist below, if available at the time of this note: XR shoulder 2+ views left Final Result No acute fracture or dislocation identified. Report Dictated on Electronically Signed By: Itz Garcia MD Electronically Signed Date/Time: 10/20/2024 2:09 PM EDT LABS: Labs Reviewed - No data to display All other labs were within normal range or not returned as of this dictation. EMERGENCY DEPARTMENT COURSE and DIFFERENTIAL DIAGNOSIS/MDM: Vitals: Vitals: 10/20/24 1254 10/20/24 1256 BP: (!) 139/92 BP Location: Right arm Patient Position: Sitting Pulse: 92 Resp: 19 Temp: 37.1 C (98.7 F) TempSrc: Oral SpO2: 99% Weight: 56.7 kg (125 lb) Height: 1.702 m (5' 7) The patient presented with a chief complaint of L shoulder injury. The differential diagnosis associated with this patient's presentation includes rotator cuff tear exacerbation, fracture, dislocation. Our workup consisted of ordering/reviewing XR L shoulder. Will rule out dislocation and fracture. Will discharge on pain medication and referral to pain medicine. ED Course as of 10/20/242047Oct 20, 2024 1334 Senting with worsening of her left shoulder pain after known rotator cuff injury as well as worsening of her right hip pain. Patient reports this was aggravated after trying to lift her father off the floor 2 days ago. Patient does get seen frequently at other facilities for the symptoms and has been prescribed narcotics multiple times in the last 2 months. Patient previously followed with pain management, but has since stopped. Lower suspicion for fracture given lack of traumatic injury, suspect patient likely has aggravated her previous injuries due to lifting the weight of her father. X-ray ordered to rule out dislocation, pain medication ordered. [JS] 1411 XR shoulder 2+ views left No acute fracture or dislocation [JS] 1519 The above information was discussed with the patient. Discussed a short course of narcotics upon discharge. Will refer patient to pain clinic given her recurrent ER visits due to this pain. Discussed continuing her home anti-inflammatories and to only use the narcotic pain medication as a last resort medication. Also discussed the need to continue using topical pain control agents such as lidocaine patches. PDMP was reviewed prior to narcotic prescription being provided. Strict return precautions were discussed. [JS] ED Course User Index [JS] Carmenza Vincent MD Diagnoses as of 10/20/242047 Left shoulder pain, unspecified chronicity Right hip pain External records reviewed: none Diagnostics interpreted by me: none Discussions with other clinicians: none Chronic conditions impacting care: none Social determinants of health affecting care: none ED Medications managed: Medications HYDROcodone-acetaminophen ([place]) 5-325 MG per tablet 1 tablet (1 tablet Oral Given 10/20/24 1344) ibuprofen tablet 600 mg (600 mg Oral Given 10/20/24 1344) acetaminophen (Tylenol) tablet 650 mg (650 mg Oral Given 10/20/24 1344) oxyCODONE (Roxicodone) immediate release tablet 5 mg (5 mg Oral Given 10/20/24 1414) Prescription drugs considered: Pain medication Percocet 10mg PROCEDURES: Unless otherwise noted below, none FINAL IMPRESSION No diagnosis found. DISPOSITION PATIENT REFERRED TO: No follow-up provider specified. DISCHARGE MEDICATIONS: New Prescriptions No medications on file (Comment: Please note this report has been produced using speech recognition software and may contain errors related to that system including errors in grammar, punctuation, and spelling, as well as words and phrases that may be inappropriate. If there are any questions or concerns please feel free to contact the dictating provider for clarification.) Deya Tyler MD (electronically signed) Emergency Medicine Provider Deya Tyler MD Resident 10/20/24 5200 [1] Past Medical History: Diagnosis Date H/O section Incomplete tear of left rotator cuff Sciatica Seizures (HCC) Spinal stenosis [2] Past Surgical History: Procedure Laterality Date HERNIA REPAIR [3] No family history on file. [4] Social History Socioeconomic History Marital status: Single Tobacco Use Smoking status: Some Days Types: Cigarettes Smokeless tobacco: Never Vaping Use Vaping status: Never Used Substance and Sexual Activity Alcohol use: Never Drug use: Never Social Drivers of Health Financial Resource Strain: Low Risk (11/01/2022) Received from [facility] Overall Financial Resource Strain (CARDIA) Difficulty of Paying Living Expenses: Not very hard Food Insecurity: Low Risk (09/11/2024) Received from [facility] ([facility]) Food Insecurity Within the past 12 months we worried whether our food would run out before we got the money to buy more.: Never true Within the past 12 months the food we bought just didn't last and we didn't have money to get more. : Never true Transportation Needs: Low Risk (09/11/2024) Received from [facility] ([facility]) Transportation Has a lack of transportation kept you from medical appointments, meetings, work, or from getting things needed for daily living. Check all that apply. : No Housing Stability: Low Risk (09/11/2024) Received from [facility] ([facility]) Housing Stability Are you worried about losing your housing?: No In the past 12 months has the electric, gas, oil, or water company threatened to shut off services in your home?: No Cosigned by Carmenza Vincent MD at 10/20/2024 8:[address] [facility] 10-20-2024 Emergency department Note Per dr nunez, pt chose to leave without DC paperwork. Pt gone before this nurse could DC them. Sabine Cox RN 10/20/[address] [facility] 10-20-2024 Emergency department Note Per dr nunez, pt chose to leave without DC paperwork. Pt gone before this nurse could DC them. Sabine Cox RN 10/20/24 1157 Images from the original note were not included. HPI Chief Complaint Patient presents with Shoulder Pain Hip Pain HPI: Patient is a 54-year-old female, patient has a past medical history of ankylosing spondylitis, anxiety, COPD, fibromyalgia, chronic pain with a history of chronic opiate use disorder, she is presenting to the emergency department today for pain. Of note this will be the patient's seventh ER visit to 4 different ERs this month alone. She is presenting to the emergency department because of left shoulder and right hip pain that says this got exacerbated after assisting her accauz-ai-gct after a fall last week. She states she has been taking naproxen, ibuprofen, and Tylenol at home without much improvement. She did states she used a marijuana gummy last evening which did seem to help. She reports that she is scheduled for an MRI on 27 October. She denies any recent falls. She denies any paresthesias associated with the symptoms. She denies any chest pain or belly pain, she denies any headaches, lightheadedness or dizziness. ROS: Complete 12 point review of systems performed, otherwise negative except as noted in the history of present illness PMH: Reviewed, documented below in note. Pertinents in HPI PSH: Reviewed and documented below in note. Pertinents in HPI SH: No illicits. Not homeless Fam: Reviewed, noncontributory to patients current complaint MEDS: Reviewed and documented below in note. Pertinents in HPI ALLERGIES: Reviewed and documented below in note. History provided by: Patient public welfare director used: No [place] Coma Scale Score: 15 Patient History Medical History[1] Surgical History[2] Family History[3] Social History[4] Physical Exam Visit Vitals BP 107/64 Pulse (!) 104 Temp 36.7 C (98.1 F) Resp 18 Ht 1.702 m (5' 7) Wt 56.7 kg (125 lb) SpO2 99% BMI 19.58 kg/m OB Status Ablation Smoking Status Every Day BSA 1.64 m Physical Exam Vitals and nursing note reviewed. Constitutional: Appearance: Normal appearance. HENT: Head: Normocephalic and atraumatic. Neck: Vascular: No carotid bruit. Cardiovascular: Rate and Rhythm: Normal rate and regular rhythm. Pulses: Normal pulses. Heart sounds: Normal heart sounds. Pulmonary: Effort: Pulmonary effort is normal. Breath sounds: Normal breath sounds. Abdominal: General: There is no distension. Palpations: Abdomen is soft. Tenderness: There is no abdominal tenderness. There is no guarding or rebound. Musculoskeletal: General: Tenderness present. No deformity or signs of injury. Normal range of motion. Cervical back: Normal range of motion. No rigidity. Comments: TTP of L shoulder and R hip and SI joint, full ROM noted Skin: General: Skin is warm and dry. Capillary Refill: Capillary refill takes less than 2 seconds. Findings: No bruising. Neurological: General: No focal deficit present. Mental Status: She is alert and oriented to person, place, and time. Sensory: No sensory deficit. Motor: No weakness. Gait: Gait normal. Psychiatric: Mood and Affect: Mood normal. Behavior: Behavior normal. No orders to display Labs Reviewed - No data to display ED Course & MDM Diagnoses as of 10/20/24 1159 Acute pain of left shoulder Right hip pain Other chronic pain Medical Decision Making All mentioned lab results, ECGs, and imaging were independently reviewed by myself - Patient evaluated. Patient is presenting to the emergency department for an acute exacerbation of what appears to be chronic pain. She is requesting something for pain at this time. She has no registered allergies, I reviewed the patient's recent hospital records from multiple various institutions, and it appears that the patient is requesting narcotics at each of them. I offer the patient anti-inflammatories, muscle relaxants, and nonopiate therapies here in the emergency department. She stated that she does not want this and wants pain medicine that will truly take away her pain. When I ask her what specific medication has worked for her in the past, she says Percocet or oxycodone. I discussed with the patient that managing her symptoms that appear to be chronic, with opiate medications is not recommended. I discussed with her the benefits of anti-inflammatory medications and her, also discussed physical therapy, and putting in a referral for pain management. The patient is adamant that she wants narcotic medications which I discussed with her that I will not be giving to her or prescribing at present time, but did offer other alternatives. I did review the patient's recent hospital visits to other institutions that have noticed recent imaging which did not show any evidence of acute pathology. She has not had any direct trauma or new injuries since the recent imaging and I do not believe additional imaging at present time is indicated. The patient is choosing to leave at this time without any further workup as she is upset that I am not giving her narcotic pain medicine. I do have concerns given the multiple visits to multiple ER's that the patient may have some drug seeking behavior. I do feel she likely has true underlying pathology causing her discomfort and offered options that are non-narcotic but she had no interest in these at present time. Patient choose to be discharged - Monitored for any changes in stability or symptomatology. Patient remained stable. *Disclaimer: This note was dictated by speech recognition. Minor errors in polysomnographer may be present. Please call with questions. Max Duncan MD Your medication list ASK your doctor about [...] muscle spasms for up to 5 days. cyclobenzaprine 10 mg tablet Commonly known as: Flexeril Take 1 tablet (10 mg) by mouth 3 times a day as needed for muscle spasms. DULoxetine [address] capsule Commonly known as: Cymbalta raqzlkuhnee-oniotuluh-xlwwcxgu 200-62.5-25 mcg blister with device Commonly known as: TRELEGY-ELLIPTA Inhale 1 puff once daily. gabapentin 800 mg tablet Commonly known as: Neurontin hydrOXYzine pamoate 25 mg capsule Commonly known as: Vistaril lamoTRIgine 150 mg tablet Commonly known as: LaMICtal lidocaine 5 % patch Commonly known as: Lidoderm Place 1 patch over 12 hours on the skin once daily. Remove & discard patch within 12 hours or as directed by MD. naproxen 500 mg tablet Commonly known as: Naprosyn Take 1 tablet (500 mg) by mouth every 12 hours. predniSONE 10 mg tablet Commonly known as: Deltasone Take three tablets orally day 1-3, two tablets day 4-6, and one tablet day 7-9 Procedure Procedures *This report was transcribed using voice recognition software. Every effort was made to ensure accuracy; however, inadvertent computerized polysomnographer errors may be present.* Casey Duncan MD 10/20/24 [1] Past Medical History: Diagnosis Date Epilepsy Rotator cuff disorder [2] Past Surgical History: Procedure Laterality Date HERNIA REPAIR [3] No family history on file. [4] Social History Tobacco Use Smoking status: Every Day Current packs/day: 0.50 Types: Cigarettes Smokeless tobacco: Never Vaping Use Vaping status: Never Used Substance Use Topics Alcohol use: Not Currently Drug use: Never Casey Duncan MD 10/20/24 1159 Pt presents for left shoulder and right hip pain. She states that she has rotator cuff problems and picked up her father in law when he fell last week re-injuring it. She also has chronic hip pain. Ambulatory with a steady gait. Alert and oriented x's 4. documented in this encounter [facility] Work Phone: 10-20-2024 Physician Emergency department Note Images from the original note were not included. HPI Chief Complaint Patient presents with Shoulder Pain Hip Pain HPI: Patient is a 54-year-old female, patient has a past medical history of ankylosing spondylitis, anxiety, COPD, fibromyalgia, chronic pain with a history of chronic opiate use disorder, she is presenting to the emergency department today for pain. Of note this will be the patient's seventh ER visit to 4 different ERs this month alone. She is presenting to the emergency department because of left shoulder and right hip pain that says this got exacerbated after assisting her gvzrzw-if-qon after a fall last week. She states she has been taking naproxen, ibuprofen, and Tylenol at home without much improvement. She did states she used a marijuana gummy last evening which did seem to help. She reports that she is scheduled for an MRI on 27 October. She denies any recent falls. She denies any paresthesias associated with the symptoms. She denies any chest pain or belly pain, she denies any headaches, lightheadedness or dizziness. ROS: Complete 12 point review of systems performed, otherwise negative except as noted in the history of present illness PMH: Reviewed, documented below in note. Pertinents in HPI PSH: Reviewed and documented below in note. Pertinents in HPI SH: No illicits. Not homeless Fam: Reviewed, noncontributory to patients current complaint MEDS: Reviewed and documented below in note. Pertinents in HPI ALLERGIES: Reviewed and documented below in note. History provided by: Patient public welfare director used: No [place] Coma Scale Score: 15 Patient History Medical History[1] Surgical History[2] Family History[3] Social History[4] Physical Exam Visit Vitals BP 107/64 Pulse (!) 104 Temp 36.7 C (98.1 F) Resp 18 Ht 1.702 m (5' 7) Wt 56.7 kg (125 lb) SpO2 99% BMI 19.58 kg/m OB Status Ablation Smoking Status Every Day BSA 1.64 m Physical Exam Vitals and nursing note reviewed. Constitutional: Appearance: Normal appearance. HENT: Head: Normocephalic and atraumatic. Neck: Vascular: No carotid bruit. Cardiovascular: Rate and Rhythm: Normal rate and regular rhythm. Pulses: Normal pulses. Heart sounds: Normal heart sounds. Pulmonary: Effort: Pulmonary effort is normal. Breath sounds: Normal breath sounds. Abdominal: General: There is no distension. Palpations: Abdomen is soft. Tenderness: There is no abdominal tenderness. There is no guarding or rebound. Musculoskeletal: General: Tenderness present. No deformity or signs of injury. Normal range of motion. Cervical back: Normal range of motion. No rigidity. Comments: TTP of L shoulder and R hip and SI joint, full ROM noted Skin: General: Skin is warm and dry. Capillary Refill: Capillary refill takes less than 2 seconds. Findings: No bruising. Neurological: General: No focal deficit present. Mental Status: She is alert and oriented to person, place, and time. Sensory: No sensory deficit. Motor: No weakness. Gait: Gait normal. Psychiatric: Mood and Affect: Mood normal. Behavior: Behavior normal. No orders to display Labs Reviewed - No data to display ED Course & MDM Diagnoses as of 10/20/24 1159 Acute pain of left shoulder Right hip pain Other chronic pain Medical Decision Making All mentioned lab results, ECGs, and imaging were independently reviewed by myself - Patient evaluated. Patient is presenting to the emergency department for an acute exacerbation of what appears to be chronic pain. She is requesting something for pain at this time. She has no registered allergies, I reviewed the patient's recent hospital records from multiple various institutions, and it appears that the patient is requesting narcotics at each of them. I offer the patient anti-inflammatories, muscle relaxants, and nonopiate therapies here in the emergency department. She stated that she does not want this and wants pain medicine that will truly take away her pain. When I ask her what specific medication has worked for her in the past, she says Percocet or oxycodone. I discussed with the patient that managing her symptoms that appear to be chronic, with opiate medications is not recommended. I discussed with her the benefits of anti-inflammatory medications and her, also discussed physical therapy, and putting in a referral for pain management. The patient is adamant that she wants narcotic medications which I discussed with her that I will not be giving to her or prescribing at present time, but did offer other alternatives. I did review the patient's recent hospital visits to other institutions that have noticed recent imaging which did not show any evidence of acute pathology. She has not had any direct trauma or new injuries since the recent imaging and I do not believe additional imaging at present time is indicated. The patient is choosing to leave at this time without any further workup as she is upset that I am not giving her narcotic pain medicine. I do have concerns given the multiple visits to multiple ER's that the patient may have some drug seeking behavior. I do feel she likely has true underlying pathology causing her discomfort and offered options that are non-narcotic but she had no interest in these at present time. Patient choose to be discharged - Monitored for any changes in stability or symptomatology. Patient remained stable. *Disclaimer: This note was dictated by speech recognition. Minor errors in polysomnographer may be present. Please call with questions. Max Duncan MD Your medication list ASK your doctor about [...] muscle spasms for up to 5 days. cyclobenzaprine 10 mg tablet Commonly known as: Flexeril Take 1 tablet (10 mg) by mouth 3 times a day as needed for muscle spasms. DULoxetine [address] capsule Commonly known as: Cymbalta bfzilhbuigp-kkcdzmdos-qsgounue 200-62.5-25 mcg blister with device Commonly known as: TRELEGY-ELLIPTA Inhale 1 puff once daily. gabapentin 800 mg tablet Commonly known as: Neurontin hydrOXYzine pamoate 25 mg capsule Commonly known as: Vistaril lamoTRIgine 150 mg tablet Commonly known as: LaMICtal lidocaine 5 % patch Commonly known as: Lidoderm Place 1 patch over 12 hours on the skin once daily. Remove & discard patch within 12 hours or as directed by MD. naproxen 500 mg tablet Commonly known as: Naprosyn Take 1 tablet (500 mg) by mouth every 12 hours. predniSONE 10 mg tablet Commonly known as: Deltasone Take three tablets orally day 1-3, two tablets day 4-6, and one tablet day 7-9 Procedure Procedures *This report was transcribed using voice recognition software. Every effort was made to ensure accuracy; however, inadvertent computerized polysomnographer errors may be present.* Casey Duncan MD 10/20/24 [1] Past Medical History: Diagnosis Date Epilepsy Rotator cuff disorder [2] Past Surgical History: Procedure Laterality Date HERNIA REPAIR [3] No family history on file. [4] Social History Tobacco Use Smoking status: Every Day Current packs/day: 0.50 Types: Cigarettes Smokeless tobacco: Never Vaping Use Vaping status: Never Used Substance Use Topics Alcohol use: Not Currently Drug use: Never Casey Duncan MD 10/20/24 9744 [facility] Work Phone: 10-20-2024 Emergency department Triage note Pt presents for left shoulder and right hip pain. She states that she has rotator cuff problems and picked up her father in law when he fell last week re-injuring it. She also has chronic hip pain. Ambulatory with a steady gait. Alert and oriented x's 4. [facility] Work Phone: 10-10-2024 Emergency department Note Pt eloped from ER before visit prior to vital signs and papers could be given. Dasia Iyer LPN 10/10/[address] [facility] 10-10-2024 Emergency department Note Pt eloped from ER before visit prior to vital signs and papers could be given. Dasia Iyer LPN 10/10/24 1316 documented in this encounter [facility] Work Phone: 10-10-2024 Hospital Discharge instructions Nena Carrillo PA-C - 10/10/2024 1:05 PM EDT You were seen today for hip pain. Your x-ray did not show any evidence of degenerative changes, fractures, dislocations. You are given Toradol for pain. Follow-up with pain management for better pain control. Return to ED if symptoms worsen or new symptoms arise. The following attachments cannot be sent through Care Everywhere.Chronic pain (Mont[place]grin)documented in this encounter [facility] Work Phone: 10-10-2024 Emergency department Note Patient eloped [facility] 10-10-2024 Emergency department Note Patient eloped documented in this encounter [facility] 09-10-2024 Hospital Discharge instructions Cammie Colbert PA-C - 09/10/2024 9:04 AM EDT [facility] Address: [address], [place] [address] Address: [address], [place] [address] Address: [address], [place] [address] [facility] [address] [facility] [address] [facility] Address: [address], [place] [address] Hours: ? Opens 8AM Address: [address], [place] [address] Hours: Opens ? 7AM Address: [address] [place] [address] Hours: Closed ? Opens 8AM documented in this encounter [facility] 09-04-2024 Hospital Discharge instructions Ron Nuñez MD - 09/04/2024 1:36 PM EDT Thank you for the opportunity to serve in your medical care today. Please be sure to take your prescribed medication as directed. Follow up with your doctor is critical for optimal healing. Should you have any new or worsening symptoms, please return to the Emergency Department for further work-up and evaluation. The following attachments cannot be sent through Care Everywhere.Nose Fracture ([place]enegrin)Headache (Montenegrin)documented in this encounter [facility] 08-24-2024 Hospital Discharge instructions Dewayne Ambriz APRN - CNP - 08/24/2024 6:55 PM EDT Ibuprofen tylenol as needed Muscle relaxers as needed See occupational therapy when to return back to work Ice to face Rarely use the ultram and no work driving alcohol on same +right nasal front fracture Ct head neck and neck stable no acute findings The following attachments cannot be sent through Care Everywhere.Nose Fracture ([place]grin)documented in this encounter [facility] 08-21-2024 Radiology Diagnostic study note [facility] Imaging Services [address] [place] [id number] HIP, UNI W/ Pelvis 2-3 Views MR#: [id number] Acct: [id number] Name: DB DONA Rep #: [id number] : 1970 F 54 From: Michelle Goldstein MD PCP: OUT OF TOWN DOCTOR Status: REG ER Study:HIP, UNI W/ Pelvis 2-3 Views Date of Ex am: 08/21/24 Exam# [id number] Ordering Dr: Felicity Alfaro DO PROCEDURE: HIP, UNI W/ PELVIS 2-3 VIEWS 08/21/2024 REASON FOR EXAM: PAIN TECHNIQUE: HIP, UNI W/ PELVIS 2-3 VIEWS COMPARISON: 01/24/2024. FINDINGS: Mild osteopenia of the visualized bones. Degenerative joint disease. No fracture or dislocation is seen. No lytic or blastic bone lesion is noted. RAD/HIP, UNI W/ Pelvis 2-3 Views IMPRESSION: No evidence for acute abnormality. Reading Location: [place] [address] CC: DO Joanna Romero Center Mgr: Signed [facility] 08-21-2024 Radiology Diagnostic study note [facility] Imaging Services [address] [place] [address] Shoulder min 2 Views MR#: [id number] Acct: [id number] Name: DB DOAN Rep #: [id number] : 1970 F 54 From: Michelle Goldstein MD PCP: OUT OF TOWN DOCTOR Status: REG ER Study:Shoulder min 2 Views Date of Exam: 08/21/24 Exam# [id number] Ordering Dr: Felicity Alfaro DO PROCEDURE: SHOULDER MIN 2 VIEWS 08/21/2024 REASON FOR EXAM: PAIN TECHNIQUE: SHOULDER MIN 2 VIEWS COMPARISON: None. FINDINGS: Calcific tendinosis at the humeral insertion of the rotator cuff tendons. Mild osteopenia of the visualized bones. Degenerative joint disease. No fracture or dislocation is seen. No lytic or blastic bone lesion is noted. RAD/Shoulder min 2 Views IMPRESSION: No evidence for acute abnormality. Reading Location: [place] [address] CC: Jose Alfaro DO ~ Center Mgr: Signed [facility] 08-20-2024 Physician Emergency department Note Chief Complaint [...] is to be evaluated by a new environmental communications specialist soon. History provided by: Patient Patient History Medical History[1] Surgical History[2] Family History[3] Social History[4] Physical Exam Constitutional: Appearance: Normal appearance. HENT: Head: Normocephalic. Right Ear: External ear normal. Left Ear: External ear normal. Nose: Nose normal. No septal deviation. Right Turbinates: Not enlarged. Left Turbinates: Not enlarged. Mouth/Throat: Lips: [place]. Mouth: Mucous membranes are moist. Dentition: No [...] Shashank Bettencourt 08/20/2024 11:14 AM Dictation workstation: [id number] XR shoulder left 2+ views Final Result No acute abnormality seen. Findings suggestive of calcific tendinitis in the distal infraspinatus MACRO: None Signed by: Shashank Bettencourt 08/20/2024 11:15 AM Dictation workstation: [id number] XR thoracic spine 2 views Final Result No acute abnormality in the thoracic spine MACRO: None Signed by: Shashank Bettencourt 08/20/2024 11:16 AM Dictation workstation: [id number] XR lumbar spine 2-3 views Final Result Mild facet disease and minimal spondylosis lower lumbar spine MACRO: None Signed by: Shashank Bettencourt 08/20/2024 11:15 AM Dictation workstation: [id number] ED Course & MDM Diagnoses as of [...] that I would refer her to an marine cargo specialist and resource conservation specialist. Follow up with their doctor in [...] mg DR capsule Commonly known as: Cymbalta lxjiozksrqk-gxbaxmldu-vszpbtml 200-62.5-25 mcg blister with device Commonly known [...] Drug use: Never EVON Sylvester 08/20/[address] [facility] Work Phone: 08-20-2024 Emergency department Note Chief [...] is to be evaluated by a new environmental communications specialist soon. History provided by: Patient Patient History Medical History[1] Surgical History[2] Family History[3] Social History[4] Physical Exam Constitutional: Appearance: Normal appearance. HENT: Head: Normocephalic. Right Ear: External ear normal. Left Ear: External ear normal. Nose: Nose normal. No septal deviation. Right Turbinates: Not enlarged. Left Turbinates: Not enlarged. Mouth/Throat: Lips: [place]. Mouth: Mucous membranes are moist. Dentition: No [...] Shashank Bettencourt 08/20/2024 11:14 AM Dictation workstation: [id number] XR shoulder left 2+ views Final Result No acute abnormality seen. Findings suggestive of calcific tendinitis in the distal infraspinatus MACRO: None Signed by: Shashank Bettencourt 08/20/2024 11:15 AM Dictation workstation: [id number] XR thoracic spine 2 views Final Result No acute abnormality in the thoracic spine MACRO: None Signed by: Shashank Bettencourt 08/20/2024 11:16 AM Dictation workstation: [id number] XR lumbar spine 2-3 views Final Result Mild facet disease and minimal spondylosis lower lumbar spine MACRO: None Signed by: Shashank Bettencourt 08/20/2024 11:15 AM Dictation workstation: [id number] ED Course & MDM Diagnoses as of [...] that I would refer her to an marine cargo specialist and resource conservation specialist. Follow up with their doctor in [...] mg DR capsule Commonly known as: Cymbalta tbnwxqftugt-kulqpsehu-pxkerrwb 200-62.5-25 mcg blister with device Commonly known [...] Alcohol use: Not Currently Drug use: Never Amandeep Marcial APRN-XUAN 08/20/24 1150 documented in this encounter [facility] Work Phone: 08-06-2024 Hospital Discharge instructions Kayode Jansen DO - 08/06/2024 4:42 AM EDT Come back for worsening symptoms. Please follow-up with primary doctor. The following attachments cannot be sent through Care Everywhere.Hip Pain ([place]grin)Dyspepsia ([place]grin)documented in this encounter [facility] 08-01-2024 Hospital Discharge instructions Isatu Hairston MD - 08/01/2024 5:14 AM EDT Please return to the emergency department for medical emergencies. Please follow-up with PCP. Please take your medications as prescribed. documented in this encounter [facility] 07-12-2024 Hospital Discharge instructions Lesley Taylor DO - 07/12/2024 4:02 AM EDT I recommend continuing the tylenol, naproxen OR mobic, flexeril, and gabapentin. It is important to follow up with your spine doctor and pain management to get better control of your symptoms. The following attachments cannot be sent through Care Everywhere.Managing acute pain at home ([place]grin)How to Keep Track of Your Pain ([place]grin)documented in this encounter [facility] Work Phone: 06-17-2024 Hospital Discharge instructions Kev Hsu DO - 06/17/2024 5:29 AM EDT Follow-up with your family physician. Despite leaving AGAINST MEDICAL ADVICE, if symptoms worsen or concern arises please return for reevaluation. 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 No Past Surgical History: Past Surgical History: Procedure Laterality Date SECTION SECTION 08/09/1999 &12/11/[address] PACHECO HC INJECTION PROCEDURE FOR SACROILIAC JOINT Left 02/02/2019 LEFT SACROILIAC JOINT INJECTION WITHOUT SEDATION (CPT 96089) performed by Khoa Gallagher MD at [facility] OR HERNIA REPAIR HIP SURGERY Left 03/17/2019 LEFT HIP INJECTION WITHOUT SEDATION (CPT 85483,95588) performed by Khoa Gallagher MD at [facility] OR NERVE BLOCK Left 02/02/2019 sacroiliac [...] F43.10 Sprain or strain of cervical spine [id number] Reactive depression F32.9 Low back pain M54.50 Anxiety attack F41.0 Intervertebral disc disorders with radiculopathy, lumbar region M51.16 Generalized seizure disorder ([facility]) G40.309 Annular tear of lumbar disc M51.369 [...] bursitis of left hip M70.62 Centrilobular emphysema ([facility]) J43.2 Contusion of back S20.229A Sciatica M54.30 Other chronic pain G89.29 Diplopia H53.2 Pituitary adenoma ([facility]) D35.2 Dizziness R42 Sprain of left ankle [...] MENTAL STATUS:} IV Access: { YEYO IV ACCESS:353942895} Nursing Mobility/ADLs: Walking {CHP DME ADLs:198490902} Transfer {CHP DME ADLs:754778193} Bathing {CHP DME ADLs:034730403} Dressing {CHP DME ADLs:952943801} Toileting {CHP DME ADLs:833284796} Feeding {CHP DME ADLs:559846922} Crusher Plant Operator {CHP DME ADLs:783869970} Med Delivery { YEYO MED Delivery:754582237} Wound Care Documentation and Therapy: Elimination: Continence: Bowel: {YES / NO:} Bladder: {YES / NO:} Urinary Catheter: {Urinary Catheter:274389727} Colostomy/Ileostomy/Ileal Conduit: {YES / NO:} Date of Last BM: Intake/Output Summary (Last 24 hours) at 06/10/2024 1546 Last data filed at 06/10/2024 1447 Gross per 24 hour Intake 1000 ml Output -- Net 1000 ml No intake/output data recorded. Safety Concerns: { YEYO Safety Concerns:728968625} Impairments/Disabilities: { YEYO Impairments/Disabilities:0398749 73} Nutrition Therapy: Current Nutrition Therapy: { YEYO Diet List:129150830} Routes of Feeding: {P DME Other Feedings:166941329} Liquids: {[facility] liquid thickness:43311} Daily Fluid Restriction: {CHP DME Yes amt example:163543428} Last Modified Barium Swallow with Video (Video Swallowing Test): {Done Not Done Date:235003543} Treatments at the Time of Hospital Discharge: Respiratory Treatments: Oxygen Therapy: {Therapy; copd oxygen:71682} Ventilator: { CC Vent List:171083990} Rehab Therapies: {THERAPEUTIC INTERVENTION:3952082106} Weight Bearing Status/Restrictions: { CC Weight Bearin} Other Medical Equipment (for information only, NOT a DME order): {EQUIPMENT:302869420} Other Treatments: Patient's personal belongings (please select all that are sent with patient): {CHP DME Belongings:642471350} RN SIGNATURE: {Esignature:656326539} CASE MANAGEMENT/SOCIAL WORK SECTION Inpatient Status Date: Readmission Risk Assessment Score: [facility] RISK OF UNPLANNED READMISSION 2.0 0 Total Score Discharging to Facility/ Agency Name: Address: Phone: Fax: Dialysis Facility (if applicable) Name: Address: Dialysis Schedule: Phone: Fax: Coal Shooter/Kinesiologist signature: {Esignature:998046325} PHYSICIAN SECTION Prognosis: {Prognosis:3583762610} Condition at Discharge: { Patient Condition:945279211} Rehab Potential (if transferring to Rehab): {Prognosis:2262890016} Recommended Labs or Other Treatments After Discharge: Physician Certification: I certify the above information and transfer of Db Doan is necessary for the continuing treatment of the diagnosis listed and that she requires {Admit to Appropriate Level of Care:07661} for {GREATER/LESS:161999199} 30 days. Update Admission H&P: {CHP DME Changes in HandP:855381210} PHYSICIAN SIGNATURE: {Esignature:834505191} The following attachments cannot be sent through Care Everywhere.Anxiety Disorders: General Info (Montenegrin)Chest Pain: Musculoskeletal ([place]grin)documented in this encounter [facility] 06-03-2024 History of Present illness Narrative Images from the original note were not included. SECTION OF SKULL BASE SURGERY MINIMALLY INVASIVE CRANIAL BASE & PITUITARY SURGERY PROGRAM [facility] [place], [facility] TELEMEDICINE NEW VISIT This is a virtual visit. It required patient-provider interaction for the medical decision making as documented below. Db Doan has consented for this telemedicine encounter. I have communicated my name and active licensure. The patient's identity and physical location were verified at the time of this visit. Either the patient or their legal customer service representative teacher has been informed of the risks and [...] which included preparing to see the patient, cieq-aj-iloz patient care, completing clinical documentation, obtaining and/or [...] Clonic Seizures - Seen on 11/19/2014 at [facility] Neurology for GTC seizures medication management . [...] by mouth every 6 hours as needed. rfwffqsuwiy-egqcgantd-giwubces (TRELEGY ELLIPTA) 200-62.5-25 mcg inhalation powder Inhale [...] mass described above. documented in this encounter 06-03-2024 Note HNO ID: [id number] Author: CECE STEWART MD Service: ? Author Type: Physician Type: Progress Notes Filed: 06/23/2024 08:01 Note Text: SECTION OF SKULL BASE SURGERY MINIMALLY INVASIVE CRANIAL BASE AND PITUITARY SURGERY PROGRAM [facility] TELEMEDICINE NEW VISIT This is a virtual visit. It required patient-provider interaction for the medical decision making as documented below. Db Doan has consented for this telemedicine encounter. I have communicated my name and active licensure. The patient's identity and physical location were verified at the time of this visit. Either the patient or their legal customer service representative teacher has been informed of the risks and [...] which included preparing to see the patient, facm-kq-ypxk patient care, completing clinical documentation, obtaining and/or [...] Clonic Seizures - Seen on 11/19/2014 at [facility] Neurology for GTC seizures medication management . [...] by mouth every 6 hours as needed. owtwuvkollk-pjfsscnza-pojbdywd (TRELEGY ELLIPTA) 200-62.5-25 mcg inhalation powder Inhale [...] No current facility-admini (more content not included)... [facility] 05-25-2024 Hospital Discharge instructions Arlyn Pelayo [...] cannot be sent through Care Everywhere.Chronic Pain ([place])Pain Diary: General Info ([place]grin)Sympathetic Nerve Block: General Info ([place]grin)documented in this encounter [facility] 05-20-2024 Hospital Discharge instructions Don Queen MD - 05/20/2024 3:27 PM EDT Return if any new or worsening symptoms. Follow up on pain management. The following attachments cannot be sent through Care Everywhere.Chest Pain ([place])documented in this encounter [facility] 05-11-2024 Telephone encounter Note Called the patient to make her aware that the VV appt with Dr. Stewart on 06/03 would have to be in-person or rescheduled for the next available VV. No ans/left msg to call the office back. JOSE Jones 05-11-2024 Miscellaneous Notes Called the patient to make her aware that the VV appt with Dr. Stewart on 06/03 would have to be in-person or rescheduled for the next available VV. No ans/left msg to call the office back. JOSE Jones documented in this encounter 04-30-2024 Physician Emergency department Note Images from [...] is unable to control her pain with mqtl-nhb-epxvxhc medications. She has no acute neurologic symptoms. She has chronic intermittent paresthesia of the right leg. No loss of bowel or bladder control. No chest pain or shortness of breath. No fever or chills. No other complaints at this time. She states that she has attempted to get into pain management physicians and has not been able to be helped. [place] Coma Scale Score: 15 Patient History Past [...] Course & MDM Diagnoses as of 04/30/24 044 Other chronic pain Medical Decision Making Patient [...] week. Procedure Procedures Tonya Tran MD 04/30/[address] [facility] Work Phone: 04-30-2024 Emergency department Note Images [...] is unable to control her pain with gouv-hev-tosrcby medications. She has no acute neurologic symptoms. She has chronic intermittent paresthesia of the right leg. No loss of bowel or bladder control. No chest pain or shortness of breath. No fever or chills. No other complaints at this time. She states that she has attempted to get into pain management physicians and has not been able to be helped. [place] Coma Scale Score: 15 Patient History Past [...] Course & MDM Diagnoses as of 04/30/24 044 Other chronic pain Medical Decision Making Patient [...] pain is worse. documented in this encounter [facility] Work Phone: 04-30-2024 Emergency department Triage note [...] flared and her shoulder pain is worse. [facility] Work Phone: 04-29-2024 Emergency department Note Discharge paperwork completed. Pt verbalized understanding regarding follow-up care. [facility] 04-29-2024 Emergency department Note Discharge paperwork completed. Pt verbalized understanding regarding follow-up care. EMERGENCY DEPARTMENT ENCOUNTER Pt Name: Db Doan Birthdate 1970 Date of evaluation: 04/29/2024 ED Provider: Jan Smith DO CHIEF COMPLAINT Chief Complaint Patient presents with Back Pain Lower back pain, pt states she has a torn rotator cuff injury and is now having increased pain HISTORY OF PRESENT ILLNESS (Location/Symptom, Timing/Onset, Context/Setting, Quality, Duration, Modifying Factors, Severity) Note limiting factors. I wore appropriate PPE for the entirety of this encounter. HPI Db Doan is a 54 y.o. who presents to the emergency department for left shoulder pain and low back pain. Patient has a history of torn rotator cuff on the left. She states she works with [employer] and was restraining them when she injured her left rotator cuff again has a history of a torn rotator cuff chronically. She states the incident happened yesterday. Patient follows with orthopedic surgery and is supposed to do physical therapy prior to MRI. She states that previous injury improved with physical therapy and xkln-uxr-jeyrvav medications. Patient stating that her low back pain is from compensation from her torn rotator cuff and remote history of back fracture. She endorses chronic nausea issues requesting Zofran. Patient requesting 10 mg of oxycodone for her chronic pain is not prescribed opiates. She also states that she needs refills on other controlled medications. She denies any fevers recent spine instrumentation incontinence of bowel or bladder saddle anesthesia or trauma to her back. Patient able to ambulate without issue. 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 Limitations to history: Outside historians: REVIEW OF SYSTEMS Review of Systems Pertinent positives and negatives as per [facility] PAST MEDICAL HISTORY Past Medical History: Diagnosis Date H/O section Incomplete tear of left rotator cuff Sciatica Seizures (HCC) Spinal stenosis SURGICAL HISTORY Past Surgical History: Procedure Laterality Date HERNIA REPAIR CURRENT MEDICATIONS Discharge Medication List as of 04/29/2024 4:18 AM CONTINUE these medications which have NOT CHANGED Details DULoxetine (Cymbalta) [address] capsule Take 60 mg by mouth daily. Do not crush or chew., Historical Med lamoTRIgine (LaMICtal) 25 MG tablet Take 150 mg by mouth daily., Historical Med methocarbamol (Robaxin) 500 MG tablet Take 1 tablet (500 mg) by mouth 2 times daily for 10 days., Starting Sat09/21/2022, Until Sat10/01/2022, Print ALLERGIES Patient has no known allergies. FAMILY HISTORY No family history on file. SOCIAL HISTORY Social History Socioeconomic History Marital status: Single Tobacco Use Smoking status: Some Days Types: Cigarettes Smokeless tobacco: Never Vaping Use Vaping status: Never Used Substance and Sexual Activity Alcohol use: Never Drug use: Never Social Drivers of Health Financial Resource Strain: Low Risk (11/01/2022) Received from [facility] Overall Financial Resource Strain (CARDIA) Difficulty of Paying Living Expenses: Not very hard Food Insecurity: No Food Insecurity (10/23/2023) Received from Hunger Vital Sign Worried About Running Out of Food in the Last Year: Never true Ran Out of Food in the Last Year: Never true Transportation Needs: No Transportation Needs (10/23/2023) Received from PRAPARE - Transportation Lack of Transportation (Medical): No Lack of Transportation (Non-Medical): No Housing Stability: Unknown (10/23/2023) Received from Housing Stability Vital Sign Unable to Pay for Housing in the Last Year: No Homeless in the Last Year: No PHYSICAL EXAM ED Triage Vitals [04/29/24 0337] Temp Heart Rate Resp BP 36.6 C (97.8 F) 97 18 124/86 SpO2 Temp Source Heart Rate Source Patient Position 99 % Temporal Monitor -- BP Location FiO2 (%) -- -- Physical Exam Vitals and nursing note reviewed. Constitutional: General: She is not in acute distress. Appearance: She is not toxic-appearing. HENT: Head: Normocephalic and atraumatic. Mouth/Throat: Pharynx: Oropharynx is clear. Eyes: Conjunctiva/sclera: Conjunctivae normal. Pupils: Pupils are equal, round, and reactive to light. Cardiovascular: Rate and Rhythm: Normal rate and regular rhythm. Pulmonary: Effort: Pulmonary effort is normal. Breath sounds: Normal breath sounds. Abdominal: Tenderness: There is no abdominal tenderness. There is no right CVA tenderness, left CVA tenderness, guarding or rebound. Musculoskeletal: General: Normal range of motion. Comments: High Sensitivity Neuro Exam Spine L1 through S5 grossly intact without any neuro deficits. Patient has normal sensation in thigh denying saddle anesthesia. Normal bladder and bowel control without retention. Able to ambulate with normal gate and no difficulty No distal parestesia Skin: General: Skin is warm and dry. Neurological: General: No focal deficit present. Mental Status: She is alert and oriented to person, place, and time. GCS: GCS eye subscore is 4. GCS verbal subscore is 5. GCS motor subscore is 6. Sensory: Sensation is intact. Motor: Motor function is intact. Gait: Gait is intact. Psychiatric: Behavior: Behavior is cooperative. DIAGNOSTIC RESULTS RADIOLOGY (Per Emergency Physician): Interpretation per the Radiologist below, if available at the time of this note: No orders to display LABS: Labs Reviewed - No data to display All other labs were within normal range or not returned as of this dictation. EMERGENCY DEPARTMENT COURSE and DIFFERENTIAL DIAGNOSIS/MDM: Vitals: Vitals: 04/29/24 0337 BP: 124/86 Pulse: 97 Resp: 18 Temp: 36.6 C (97.8 F) TempSrc: Temporal SpO2: 99% Medications Lidocaine 4 % patch 1 patch (has no administration in time range) ketorolac (Toradol) injection 30 mg (30 mg IntraMUSCular Given 04/29/24426) acetaminophen (Tylenol) tablet 1,000 mg (1,000 mg Oral Given 04/29/24426) ondansetron ODT (Zofran-ODT) disintegrating tablet 4 mg (4 mg Oral Given 04/29/24426) 54-year-old female presented to the ED complaining of left shoulder pain and low back pain detailed above. Exam as above with intact high-sensitivity neuroexam. No evidence of life-threatening or emergent condition. Differential diagnosis includes chronic pain, torn rotator cuff, sciatica, low back pain, drug-seeking behavior. On chart review patient has a history of drug-seeking behavior with similar complaints additionally patient is requesting 10 mg oxycodone by name and refills on medications that are controlled substances. Discussed with patient that there is no indication for narcotics. Above nonnarcotic medication ordered. As patient has had multiple x-rays of shoulder and back without acute trauma pain is chronic follows with orthopedic surgery who she just saw last week no indication for further imaging. Patient stable for discharge with supportive care, return precautions, outpatient follow-up with orthopedic surgery. Patient in agreement with plan. SCREENINGS PROCEDURES: Unless otherwise noted below, none Procedures CRITICAL CARE TIME FINAL IMPRESSION 1. Low back pain, unspecified back pain laterality, unspecified chronicity, unspecified whether sciatica present 2. Left shoulder pain, unspecified chronicity DISPOSITION Discharge 04/29/2024 04:16:44 AM PATIENT REFERRED TO: Maria Elena Montalvo MD [address] [place] [address] [place] [address] DISCHARGE MEDICATIONS: Discharge Medication List as of 04/29/2024 4:18 AM (Comment: Please note this report has been produced using speech recognition software and may contain errors related to that system including errors in grammar, punctuation, and spelling, as well as words and phrases that may be inappropriate. If there are any questions or concerns please feel free to contact the dictating provider for clarification.) Jan Smith DO (electronically signed) Emergency Medicine Provider Jan Smith DO 04/29/24 0454 Jan Smith DO 04/29/24 0455 documented in this encounter [facility] 04-29-2024 Hospital Discharge instructions Jan Smith DO - 04/29/2024 4:17 AM EST Call your marine cargo specialist for further testing and medication management. documented in this encounter [facility] 04-29-2024 Physician Emergency department Note EMERGENCY DEPARTMENT ENCOUNTER Pt Name: Db Doan Birthdate 1970 Date of evaluation: 04/29/2024 ED Provider: Jan Smith DO CHIEF COMPLAINT Chief Complaint Patient presents with Back Pain Lower back pain, pt states she has a torn rotator cuff injury and is now having increased pain HISTORY OF PRESENT ILLNESS (Location/Symptom, Timing/Onset, Context/Setting, Quality, Duration, Modifying Factors, Severity) Note limiting factors. I wore appropriate PPE for the entirety of this encounter. HPI Db Doan is a 54 y.o. who presents to the emergency department for left shoulder pain and low back pain. Patient has a history of torn rotator cuff on the left. 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 She states the incident happened yesterday. Patient follows with orthopedic surgery and is supposed to do physical therapy prior to MRI. She states that previous injury improved with physical therapy and oycn-cms-uuhnsmq medications. Patient stating that her low back pain is from compensation from her torn rotator cuff and remote history of back fracture. She endorses chronic nausea issues requesting Zofran. Patient requesting 10 mg of oxycodone for her chronic pain is not prescribed opiates. She also states that she needs refills on other controlled medications. She denies any fevers recent spine instrumentation incontinence of bowel or bladder saddle anesthesia or trauma to her back. Patient able to ambulate without issue. 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 Limitations to history: Outside historians: REVIEW OF SYSTEMS Review of Systems Pertinent positives and negatives as per [facility] PAST MEDICAL HISTORY Past Medical History: Diagnosis Date H/O section Incomplete tear of left rotator cuff Sciatica Seizures (HCC) Spinal stenosis SURGICAL HISTORY Past Surgical History: Procedure Laterality Date HERNIA REPAIR CURRENT MEDICATIONS Discharge Medication List as of 04/29/2024 4:18 AM CONTINUE these medications which have NOT CHANGED Details DULoxetine (Cymbalta) [address] capsule Take 60 mg by mouth daily. Do not crush or chew., Historical Med lamoTRIgine (LaMICtal) 25 MG tablet Take 150 mg by mouth daily., Historical Med methocarbamol (Robaxin) 500 MG tablet Take 1 tablet (500 mg) by mouth 2 times daily for 10 days., Starting Sat09/21/2022, Until Sat10/01/2022, Print ALLERGIES Patient has no known allergies. FAMILY HISTORY No family history on file. SOCIAL HISTORY Social History Socioeconomic History Marital status: Single Tobacco Use Smoking status: Some Days Types: Cigarettes Smokeless tobacco: Never Vaping Use Vaping status: Never Used Substance and Sexual Activity Alcohol use: Never Drug use: Never Social Drivers of Health Financial Resource Strain: Low Risk (11/01/2022) Received from [facility] Overall Financial Resource Strain (CARDIA) Difficulty of Paying Living Expenses: Not very hard Food Insecurity: No Food Insecurity (10/23/2023) Received from Hunger Vital Sign Worried About Running Out of Food in the Last Year: Never true Ran Out of Food in the Last Year: Never true Transportation Needs: No Transportation Needs (10/23/2023) Received from PRAPARE - Transportation Lack of Transportation (Medical): No Lack of Transportation (Non-Medical): No Housing Stability: Unknown (10/23/2023) Received from Housing Stability Vital Sign Unable to Pay for Housing in the Last Year: No Homeless in the Last Year: No PHYSICAL EXAM ED Triage Vitals [04/29/24 0337] Temp Heart Rate Resp BP 36.6 C (97.8 F) 97 18 124/86 SpO2 Temp Source Heart Rate Source Patient Position 99 % Temporal Monitor -- BP Location FiO2 (%) -- -- Physical Exam Vitals and nursing note reviewed. Constitutional: General: She is not in acute distress. Appearance: She is not toxic-appearing. HENT: Head: Normocephalic and atraumatic. Mouth/Throat: Pharynx: Oropharynx is clear. Eyes: Conjunctiva/sclera: Conjunctivae normal. Pupils: Pupils are equal, round, and reactive to light. Cardiovascular: Rate and Rhythm: Normal rate and regular rhythm. Pulmonary: Effort: Pulmonary effort is normal. Breath sounds: Normal breath sounds. Abdominal: Tenderness: There is no abdominal tenderness. There is no right CVA tenderness, left CVA tenderness, guarding or rebound. Musculoskeletal: General: Normal range of motion. Comments: High Sensitivity Neuro Exam Spine L1 through S5 grossly intact without any neuro deficits. Patient has normal sensation in thigh denying saddle anesthesia. Normal bladder and bowel control without retention. Able to ambulate with normal gate and no difficulty No distal parestesia Skin: General: Skin is warm and dry. Neurological: General: No focal deficit present. Mental Status: She is alert and oriented to person, place, and time. GCS: GCS eye subscore is 4. GCS verbal subscore is 5. GCS motor subscore is 6. Sensory: Sensation is intact. Motor: Motor function is intact. Gait: Gait is intact. Psychiatric: Behavior: Behavior is cooperative. DIAGNOSTIC RESULTS RADIOLOGY (Per Emergency Physician): Interpretation per the Radiologist below, if available at the time of this note: No orders to display LABS: Labs Reviewed - No data to display All other labs were within normal range or not returned as of this dictation. EMERGENCY DEPARTMENT COURSE and DIFFERENTIAL DIAGNOSIS/MDM: Vitals: Vitals: 04/29/24 0337 BP: 124/86 Pulse: 97 Resp: 18 Temp: 36.6 C (97.8 F) TempSrc: Temporal SpO2: 99% Medications Lidocaine 4 % patch 1 patch (has no administration in time range) ketorolac (Toradol) injection 30 mg (30 mg IntraMUSCular Given 04/29/24426) acetaminophen (Tylenol) tablet 1,000 mg (1,000 mg Oral Given 04/29/24426) ondansetron ODT (Zofran-ODT) disintegrating tablet 4 mg (4 mg Oral Given 04/29/24426) 54-year-old female presented to the ED complaining of left shoulder pain and low back pain detailed above. Exam as above with intact high-sensitivity neuroexam. No evidence of life-threatening or emergent condition. Differential diagnosis includes chronic pain, torn rotator cuff, sciatica, low back pain, drug-seeking behavior. On chart review patient has a history of drug-seeking behavior with similar complaints additionally patient is requesting 10 mg oxycodone by name and refills on medications that are controlled substances. Discussed with patient that there is no indication for narcotics. Above nonnarcotic medication ordered. As patient has had multiple x-rays of shoulder and back without acute trauma pain is chronic follows with orthopedic surgery who she just saw last week no indication for further imaging. Patient stable for discharge with supportive care, return precautions, outpatient follow-up with orthopedic surgery. Patient in agreement with plan. SCREENINGS PROCEDURES: Unless otherwise noted below, none Procedures CRITICAL CARE TIME FINAL IMPRESSION 1. Low back pain, unspecified back pain laterality, unspecified chronicity, unspecified whether sciatica present 2. Left shoulder pain, unspecified chronicity DISPOSITION Discharge 04/29/2024 04:16:44 AM PATIENT REFERRED TO: Maria Elena Montalvo MD [address] [facility] [address] [place] [id number] DISCHARGE MEDICATIONS: Discharge Medication List as of 04/29/2024 4:18 AM (Comment: Please note this report has been produced using speech recognition software and may contain errors related to that system including errors in grammar, punctuation, and spelling, as well as words and phrases that may be inappropriate. If there are any questions or concerns please feel free to contact the dictating provider for clarification.) Jan Smith DO (electronically signed) Emergency Medicine Provider Jan Smith DO 04/29/24 0454 Jan Smith DO 04/29/[address] [facility] 04-20-2024 Hospital Discharge instructions Dewayne Ambriz APRN - CNP - 04/20/2024 3:38 PM EST Continue with muscle relaxer Use lidoderm patch as needed Keep appt with Dr Davis this week Use zofran as needed for nausea documented in this encounter [facility] 04-11-2024 Hospital Discharge instructions Patient Education [...] less able to do your daily activities [phone] [employer]. [address] [place] [address]. All rights reserved. This information is not intended as a substitute for professional medical care. Always follow your healthcare professional's instructions. Follow Up Care 04/11/2024 06:33:36 With:VALARIE MARTIN DO Address: [address] [place] [address]- [phone] When:2-4 days With:MARIA ELENA MONTALVO MD Address: [address] [place] [address] [phone] When:2-4 days [facility] 04-11-2024 Emergency department Discharge summary Discharge Instructions Thank you for allowing [facility] to assist you with your healthcare needs. The following is important discharge information regarding your hospital visit. What to Do Next Instructions from Your Care Team No qualifying data available. Post Acute Orders No qualifying data available. You Need to Schedule the Following Appointments Follow Up with VALARIE MARTIN DO When:Within 2-4 days Where:[address] [place] [address] [phone] Follow Up with MARIA ELENA MONTALVO MD When:Within 2-4 days Where:[address] [place] [id number] [phone] Allergies No Known Medication Allergies Medications Please [...] less able to do your daily activities [phone] [employer]. [address] [place] [address]. All rights reserved. This information is not intended as a substitute for professional medical care. Always follow your healthcare professional's instructions. Additional Information VACCINATE! IT SAVES LIVES! Members of the community who have not yet received the COVID-19 vaccine and would like to receive it can visit one of [facility] vaccine clinics. There are many vaccine clinic locations within the [facility]. For locations and available times, please visit [email or web address] It is important to note that some COVID mobile vaccine clinics are held outdoors and may be canceled in rainy or stormy conditions. To learn more about pediatric vaccinations (ages 5-11), we invite you to visit the [facility] webpage. [email or web address] [email or web address] [email or web address]-[email or web address]-[email or web address].[email or web address] To learn more about the COVID-19 vaccine, we invite you to visit the CDC website for a list of frequently asked questions. https://www.cdc.gov/coronavirus/ 2019-ncov/vaccines/faq.html [facility] Patient Portal Access Instructions: Stay connected with your healthcare team and access your personal medical information anytime with the [facility] Patient Portal. If you would like a full copy of your medical records please contact the [facility] Medical Records Department Saturday through Saturday between 8a.m. and 4:30p.m. Please follow the directions below to access the portal: 1.Access the email account you provided upon registration to the [facility].2.Look for an invitation email from [facility].3.Open the email and access the invitation link: Accept Invitation to [facility]4.Fill in the required whitfield to create your account. Sign into [email or web address] with your username and password that you [...] you will allow to register on the [facility] Patient Portal for access to your information. You can also access the [facility] Patient Portal on the [employer] surinder. Simply click on Health Records under Health Data and then click on the [facility] logo. HOW TO SAFELY DISPOSE OF PRESCRIPTION [...] Call your local pharmacy or go to [email or web address] to find one close to you.3.Make use of household items: Use cat litter or old coffee grounds to dispose medications if other options are not available. Mix your drugs with these household products, seal them in an airtight container and throw it into the garbage. Call [facility]: [phone] to be sure your drugs can be [...] aware that I should contact my doctor. Patient/Website Admin Signature: Date/Time: Relationship to Patient: Witness Name/Signature: Date/Time: [facility] 04-11-2024 Note Exam Date Time Procedure Performing Provider Status 04/11/24 9:18 AM XR Shoulder Minimum 2 Views Left BELLO CHAVARRIA DO; Auth (Verified) [id number] ORIGINAL EXAMINATION: TWO XRAY VIEWS OF THE [...] Sign Date: 04/11/2024 9:26:10 AM Ordering Provider: [facility]02-08-2025 Note* Exam Date Time Procedure Performing Provider Status 04/11/24 9:14 AM XR Sacrum/Coccyx Minimum 2 Views BELLO CHAVARRIA DO; Auth (Verified) [id number] ORIGINAL EXAMINATION: THREE XRAY VIEWS OF THE [...] Date: 04/11/2024 9:30:58 AM Ordering Provider: [facility]02-08-2025 Note* Exam Date Time Procedure Performing Provider Status 04/11/24 9:13 AM XR Hip Right w/Pelvis 4 Views BELLO FOLEY DO; Auth (Verified) [id number] ORIGINAL EXAMINATION: 2 XRAY VIEWS OF THE [...] Sign Date: 04/11/2024 9:28:58 AM Ordering Provider: JOCELYN ROA [id number] Telephone encounter Note* Telephone Encounter - Kyle Bagley - 03/30/2024 1:56 PM EST Called Patient 2 times Patient ended call called for the 3rd time was sent to (Left With Apptdetails , Mailed Patient Appointment Reminder & Sent MyChart Message) Kyle Bagley March 30, 2024 1:57 PM 01-27-2025 Miscellaneous Notes* Telephone Encounter - Kyle Bagley - 03/30/2024 1:56 PM EST Called Patient 2 times Patient ended call called for the 3rd time was sent to (Left With Apptdetails , Mailed Patient Appointment Reminder & Sent MyChart Message) Kyle Bagley March 30, 2024 1:57 [...] lesion Patient: Db Doan Address: Db Doan [phone] [place] [address] Per Triage: Db Doan is a 53 year old female that requests evaluation of previously diagnosed pituitary lesion. Patient expectations: New Consult Tumor Specifics: Location: pituitary Previous Evaluations: MRI w/wo contrast (03/08/24): @ [facility] 1. No evidence of acute intracranial [...] March 30, 2024 * Telephone Encounter - Fiona Blum - 03/30/2024 11:51 AM EST Records requested from [facility] 03/30 @ 11:58am 1. Circular Saw Filer: Who is requesting this appointment?patient 2. Circular Saw Filer: Please indicate the best contact information for our team to reach you with any questions/concerns we may have? cell 3. Circular Saw Filer: What is your diagnosis? Pituitary Tumor 4. Circular Saw Filer: Have you ever been seen at our center before? No 5. Circular Saw Filer: Is there a specific doctor you were referred to? No 6. Circular Saw Filer: What facility and/or hospital have you been seen at? [facility] Name offacility/name of provider where patient was treated. Dr. Maria Elena Montalvo 7. Circular Saw Filer: For this appointment, we will need to request a few records from you. This will help our triage team be able to select the best provider for your treatment. a. Please provide: Most recent MRI- spine/Brain (Circular Saw Filer will check CareEverywhere for records). 8. Circular Saw Filer: Where was your last imaging completed:[facility] March 2024(Ideally should be completed within the last six months). 9. Circular Saw Filer: Have you had any surgeries pertaining to this appointment? No If yes, please obtain pathology report. 10. Circular Saw Filer: Please allow up to 48-72 hours for our triage team to review your records. Once theyreviewed your records, we will be in contact with you. a. Was the patient made aware of the turnaround time? Yes 11. Circular Saw Filer: Our department offers virtual visits depending on the provider you are recommended to see and the state that you live in. If able to schedule, would you like a virtual visit? Yes a. If answered yes: Does the patient have MyChart access: Yes If not, then crew scheduler will walk patient through getting access to [facility]. b. If no, Are you interested in In Person (If not, please indicate patient refused to schedule at this time and the reason to not proceed with scheduling). 12. Sent to triage pool. (Waiting approval). documented in this encounter01-27-2025 Note* Addendum Note - Ra Abbott APRN.CNP - 03/30/2024 12:22 PM ESTAddended by: RA ABBOTT on: 03/30/2024 12:22 PM Modules accepted: Orders 01-27-2025 Telephone encounter Note* Telephone Encounter - Ra Abbott APRN.CNP - 03/30/2024 12:17 PM EST Time Frame: Next available Orders: Blood work (must be drawn @ 8AM any day prior to appt) Provider: Dr. Melgoza or Dr. Stewart & Dr. Tenisha Palacios Referring: Self Please instruct patient to hand carry/ upload images prior to appt Dx: Pituitary lesion Patient: Db Doan Address: Db Doan [id number] [place], [place] [address] [place] [address] Per Triage: Db Doan is a 53 year old female that requests evaluation of previously diagnosed pituitary lesion. Patient expectations: New Consult Tumor Specifics: Location: pituitary Previous Evaluations: MRI w/wo contrast (03/08/24): @ [facility] 1. No evidence of acute intracranial [...] above. Ra Abbott APRN.CNP March 30, 2024 01-27-2025 Telephone encounter Note* Telephone Encounter - Corona Blumystle - 03/30/2024 11:51 AM EST Records requested from [facility] 03/30 @ 11:58am 1. Circular Saw Filer: Who is requesting this appointment?patient 2. Circular Saw Filer: Please indicate the best contact information for our team to reach you with any questions/concerns we may have? cell 3. Circular Saw Filer: What is your diagnosis? Pituitary Tumor 4. Circular Saw Filer: Have you ever been seen at our center before? No 5. Circular Saw Filer: Is there a specific doctor you were referred to? No 6. Circular Saw Filer: What facility and/or hospital have you been seen at? [facility] Name offacility/name of provider where patient was treated. Dr. [place] Elena Montalvo 7. Circular Saw Filer: For this appointment, we will need to request a few records from you. This will help our triage team be able to select the best provider for your treatment. a. Please provide: Most recent MRI- spine/Brain (Circular Saw Filer will check CareEverywhere for records). 8. Circular Saw Filer: Where was your last imaging completed:[facility] March 2024(Ideally should be completed within the last six months). 9. Circular Saw Filer: Have you had any surgeries pertaining to this appointment? No If yes, please obtain pathology report. 10. Circular Saw Filer: Please allow up to 48-72 hours for our triage team to review your records. Once theyreviewed your records, we will be in contact with you. a. Was the patient made aware of the turnaround time? Yes 11. Circular Saw Filer: Our department offers virtual visits depending on the provider you are recommended to see and the state that you live in. If able to schedule, would you like a virtual visit? Yes a. If answered yes: Does the patient have MyChart access: Yes If not, then crew scheduler will walk patient through getting access to [facility]. b. If no, Are you interested in In Person (If not, please indicate patient refused to schedule at this time and the reason to not proceed with scheduling). 12. Sent to triage pool. (Waiting approval). 01-26-2025 [facility] Discharge instructions* Discharge Instructions* Ron Nuñez MD [...] sent through Care Everywhere. * Back Pain (Montenegrin) * Back: Preventing Injuries (Montenegrin) [facility] Discharge instructions* Discharge Instructions* Rosi Petersen DO - 03/18/2024 5:12 AM EST Follow-up with family doctor. Return for any significant worsening symptoms or other acute symptomsor concerns. * Attachments The following attachments cannot be sent through Care Everywhere. * Sciatica ([place]enegrin) [facility] Discharge instructions* Discharge Instructions* Ninoska Munoz APRN - XUAN - 03/12/2024 8:10 PM EST Do not drink alcohol, drive or operate heavy equipment while taking narcotics. * Attachments The following attachments cannot be sent through Care Everywhere. * Low Back Contusion (Montenegrin) * Cervical Strain or Sprain: Rehab Exercises (Montenegrin) * Head Injury (Montenegrin) * Postconcussion Syndrome (Montenegrin) * Quadriceps Contusion (Montenegrin) * Abrasions (Montenegrin) * Opioids: General Info (Montenegrin) [facility] History of Present illness Narrative* Wong [...] sodium chloride infusion, , IntraVENous, PRN, Erica Alvarez, DO potassium chloride (KLOR-CON M) extended release tablet 40 mEq, 40 mEq, Oral, PRN OR potassium bicarb-citric acid (EFFER-K) effervescent tablet 40 mEq, 40 mEq, Oral, PRN OR potassium [id number] mEq/100 mL IVPB (Peripheral Line), 10 mEq, IntraVENous, PRN, Erica Alvarez DO magnesium sulfate 2000 mg in 50 mL IVPB premix, 2,000 mg, IntraVENous, PRN, Erica Alvarez, enoxaparin (LOVENOX) injection 40 mg, 40 mg, SubCUTAneous, Daily, Erica Alvarez DO, 40 mg at 03/09/24 0840 polyethylene glycol (GLYCOLAX) packet 17 g, 17 g, Oral, Daily PRN, Erica Alvarez DO acetaminophen (TYLENOL) tablet 650 mg, 650 mg, Oral, Q6H PRN OR acetaminophen (TYLENOL) suppository 650 mg, 650 mg, Rectal, Q6H PRN, Eriac Alvarez DO albuterol (PROVENTIL) (2.5 MG/3ML) 0.083% nebulizer solution 2.5 mg, 2.5 mg, Nebulization, 4x DailyPRN, Erica Alvarez DO lamoTRIgine (LAMICTAL) tablet 150 mg, 150 mg, Oral, Daily, Erica Alvarez, , 150 mg at 03/09/24 0840 DULoxetine (CYMBALTA) extended release capsule 60 mg, 60 mg, Oral, BID, Erica Alvarez, , 60 mg at 03/09/24 0840 ADULT DIET; [...] input noted Neurosurgery facilitating referral to a CART DRIVER tumor specialist at [place] Patient now requesting narcotics Defer this to her PCP Wong Castillo MD 3:02 PM 03/09/2024 NOTE: This report was transcribed using voice recognition software. Every effort was made to ensureaccuracy; however, inadvertent polysomnographer errors may be present RTO * Rev. Lino Rivers - 03/09/2024 10:54 AM EST Spiritual Health History and Assessment/Progress Note Sandhya Booker (P) Initial Encounter, , , Name: Db Daon Age: 53 y.o. Sex: female Language: Montenegrin Catholic: None Diplopia Date: 03/09/2024 Spiritual Assessment began in [address] PICU Referral/Consult From: (P) Rounding Encounter [...] theological reflection, Affirmed coping skills/support systems,and Provided sacramental/zoroastrian ritual Family/Friends Interventions include: No family/friends present [...] needs completed, thank you. [facility] Discharge instructions* Discharge Instructions* Kayode Jansen DO - 02/28/2024 4:17 AM EST If you develop redness, swelling at the bite sites, drainage go to emergency department for evaluation as this may mean is infected * Attachments The following attachments cannot be sent through Care Everywhere. * Cervical Strain (Montenegrin) * Bite: Human (Montenegrin) [facility] History of Present illness Narrative* Siddhartha [...] bilateral hips. Was recently in ER for 10/10 pain to hips, back, and neck Pain [...] personally reviewed the OARRS report for Db Doan. I have considered the risks of abuse, dependence, addiction and diversion Review of Systems Current Outpatient Medications Medication Instructions acetaminophen (TYLENOL) 650 mg, oral, Every 6 hours PRN cyclobenzaprine (FEXMID) 7.5 mg, 3 times daily PRN cyclobenzaprine (FLEXERIL) 10 mg, oral, 3 times daily PRN DULoxetine (CYMBALTA) 60 mg, Daily RT jqfyapbxfeq-gvnlkwajm-diusemcv (TRELEGY-ELLIPTA) 200-62.5-25 mcg blister with device 1 [...] am INDICATION: Signs/Symptoms:fall. COMPARISON: 08/04/2022 ACCESSION NUMBER(S): [id number] ORDERING CLINICIAN: CHRIS TIWARI FINDINGS: AP pelvis and two views of the right hip. No acute fracture or dislocation identified. Mild degenerative changes noted. Soft tissues are grossly unremarkable. Impression No acute osseous abnormality identified. MACRO: None Signed by: Monae Owens 02/10/2024 5:44 AM Dictation workstation: [id number] XR cervical spine 2-3 views 02/10/2024 Narrative Interpreted By: Monae Owens, STUDY: XR CERVICAL SPINE 2-3 VIEWS; ; 02/10/2024 4:56 am INDICATION: Signs/Symptoms:fall. COMPARISON: None. ACCESSION NUMBER(S): [id number] ORDERING CLINICIAN: CHRIS TIWARI FINDINGS: Three views [...] Monae Owens 02/10/2024 5:41 AM Dictation workstation: [id number] XR cervical spine 2-3 views 02/26/2023 Narrative [...] Narrative [facility] 1970 [id number] Exam Date/Time: 09/21/2022 17:18 Procedure: MR LUMBAR SPINE WO CONTRAST Ordering Provider: [facility] Reason For Exam: Low back pain, cauda [...] clinical exam . COMPARISON: None. ACCESSION NUMBER(S): [id number] ORDERING CLINICIAN: LISA ROQUE TECHNIQUE: Sagittal and [...] above recommend patient see addiction medicine Geraldine Auguste, DO - Pain Fellow This note was [...] documentation and discussed the patient with the resident/roselyn patel. I agree with the resident/fellow's medical decision making as documented in the note. Siddhartha Zarco MD documented [facility] Work Phone: [phone]) 352-748612-05-2024 Hospital Discharge instructions* Discharge Instructions* Brandy Sanches MD - 02/06/2024 2:49 AM EST Need to follow-up with the spine surgeon as soon as possible return if problems urinating or bowel movements or any new symptoms fevers vomiting * Attachments The following attachments cannot be sent through Care Everywhere. * Back Pain (Montenegrin) * Cervical Strain (Montenegrin) * Chronic Pain ([place]grin) [facility] Note* Jennifer Mae MD - 02/05/2024 3:20 AM EST [facility] ED EMERGENCY DEPARTMENT ENCOUNTER Pt Name: Db Doan Birthdate 1970 Date of evaluation: 02/05/2024 Provider: Jennifer Mae MD CHIEF COMPLAINT Chief Complaint Patient presents with Fall Patient arrived to ED c/o hip and back pain from a fall yesterday. Denies hitting head or LOC. States she fell onto her right hip. Not on thinners. Pain 10 HISTORY OF PRESENT ILLNESS (Location/Symptom, Timing/Onset,Context/Setting, Quality, Duration, Modifying Factors, Severity) Note limiting factors. Db Doan is a 53 y.o. female who presents to the emergency department with hip pain. Fell yesterday. Complains of right hip pain. When I go into the room she is up walking around says it hurts inher right buttocks. She has long history of back pain. Long history of sciatica. She did not hit her head. No numbness or tingling. She said she fell and hurt her hip. While I am talking to her and interviewing her she says that she wants something for pain. I said that obviously I will examine herand give her something for pain. HPI Historian is patient Nurse's notes for past medical history, surgical history, social history were reviewed. Medicationsand allergies reviewed. PAST MEDICAL HISTORY Past Medical History: Diagnosis Date H/O section Incomplete tear of left rotator cuff Sciatica Seizures (HCC) Spinal stenosis SURGICALHISTORY Past Surgical History: Procedure Laterality Date HERNIA REPAIR CURRENT MEDICATIONS Previous Medications DULOXETINE (CYMBALTA) [address] CAPSULE Take 60 mg by mouth daily. Do not crush or chew. LAMOTRIGINE (LAMICTAL) 25 MG TABLET Take 150 mg by mouth daily. METHOCARBAMOL (ROBAXIN) 500 MG TABLET Take 1 tablet (500 mg) by mouth 2 times daily for 10 days. Patient has no known allergies. FAMILY HISTORY No family history on file. SOCIAL HISTORY Social History Socioeconomic History Marital status: Single Tobacco Use Smoking status: Some Days Types: Cigarettes Smokeless tobacco: Never Vaping Use Vaping status: Never Used Substance and Sexual Activity Alcohol use: Never Drug use: Never Social Drivers of Health Financial Resource Strain: Low Risk (11/01/2022) Received from [facility] [employer] [facility] Overall Financial Resource Strain (CARDIA) Difficulty of Paying Living Expenses: Not very hard Food Insecurity: No Food Insecurity (10/23/2023) Received from Hunger Vital Sign Worried About Running Out of Food in the Last Year: Never true Ran Out of Food in the Last Year: Never true Transportation Needs: No Transportation Needs (10/23/2023) Received from PRAPARE - Transportation Lack of Transportation (Medical): No Lack of Transportation (Non-Medical): No Housing Stability: Unknown (10/23/2023) Received from Housing Stability Vital Sign Unable to Pay for Housing in the Last Year: No Homeless in the Last Year: No SCREENINGS PHYSICAL EXAM (up to 7 for level 4, 8 or more for level 5) @EDTRIAGEVSS@ Appropriate PPE including n 95, gown, gloves, goggles where worn when appropriate with this patient. Physical Exam General awake alert appropriate ambulatory without limp. She does have tenderness in right sciatic notch. No midline lumbar tenderness. Strength sensation is intact in her lower extremities. She thenstopped me from completing my exam because she said that she wanted something for pain. I was unable to do further examination DIAGNOSTIC RESULTS RADIOLOGY: Interpretation per the Radiologist below, if availableat the time of this note: No orders to display ED BEDSIDE ULTRASOUND: Performed by ED Physician - none LABS: Labs Reviewed - No data to display All other labs were within normal range or not returned as of thisdictation. EMERGENCYDEPARTMENT COURSE and DIFFERENTIAL DIAGNOSIS/MDM: Vitals: Vitals: 02/05/24 0323 02/05/24323 BP: 137/82 Pulse: 94 Resp: 16 Temp: 36.6 C (97.9 F) TempSrc: Temporal SpO2: 100% Weight: 63.5 kg (140 lb) Height: 1.702 m (5' 7) Medical Decision Making EMERGENCY DEPARTMENT COURSE and DIFFERENTIAL DIAGNOSIS/MDM: Vitals: Vitals: 02/05/24 0323 02/05/24323 BP: 137/82 Pulse: 94 Resp: 16 Temp: 36.6 C (97.9 F) TempSrc: Temporal SpO2: 100% Weight: 63.5 kg (140 lb) Height: 1.702 m (5' 7) The patient presented with a chief complaint of hip pain. The differential diagnosis associated with this patient's presentation includes hip fracture pelvis fracture muscle strain contusion sciaticacauda equina. Our workup consisted of ordering/reviewing x-rays of the right hip and pelvis. Patient declined x-rays. She interrupts me several times during the history of present illness and physical examination asking for something for pain. I explained to her that we could get her some Motrin she then said she wanted something stronger she is already on Naprosyn and gabapentin. She reports [facility] pain manage appointment next week. I explained to her that I can give her Motrin here and get her x-rays she said if she is not can have something stronger she is art leave. I explained to her that happy to treat her but I want to get x-rays and she decided to leave. She did not stay for paperwork otherwise. My suspicion that anything was fractured was low but is unable to complete my examination. Diagnoses as of 02/05/24350 Pain of right hip Diagnostics considered but not indicated based on history, physical, testing: None External records reviewed: Outpatient records reviewed she has visit at [facility] on 01/21/2024. She has visit at [facility] on 01/21/2024. She has a visit in [place] on 01/20/2024. She has [facility] 01/20/2024. Visit at [facility] on 01/20/2024. All of these for pain and back pain. Radiologic diagnostics interpreted by me: film images such as CT, Ultrasound and MRI are read by the radiologist. Plain radiographic images are visualized and preliminarily interpreted by the emergency physician with the below findings: Xray(s) x-rays offered she declined Discussions with other clinicians: none Chronic conditions impacting care: Sciatica seizures Social determinants of health affecting care: Smokes Shared decision making: Patient did not stay for x-rays. I explained to her that she needs to follow-up with her primary care physician and keep her appointment pain management. She did not want to stay for discharge papers but I did give her verbal instructions. ED Medications managed: Medications - No data to display Prescription drugs prescribed: PROCEDURES: Unless otherwise noted below, none Procedures IMPRESSION 1. Pain of right hip DISPOSITION/PLAN DISPOSITION Discharge 02/05/2024 03:50:40 AM PATIENT REFERRED TO: No follow-up provider specified. DISCHARGE MEDICATIONS: New Prescriptions No medications on file @[facility]([id number]:LAST:1)@ (Comment: Please notethis report has been produced using speech recognition software and may contain errors related to that system including errors in grammar, punctuation, and spelling, as well as words and phrases that may be inappropriate.If there is any questions or concerns please feel free tocontact the dictating provider for clarification). Jennifer Mae MD (electronically signed) Attending Emergency Physician Jennifer Mae MD 02/05/24350 documented in this [facility]12-04-2024 Physician Emergency department Note* Jennifer Mae MD - 02/05/2024 3:20 AM EST [facility] ED EMERGENCY DEPARTMENT ENCOUNTER Pt Name: Db Doan Birthdate 1970 Date of evaluation: 02/05/2024 Provider: Jennifer Mae MD CHIEF COMPLAINT Chief Complaint Patient presents with Fall Patient arrived to ED c/o hip and back pain from a fall yesterday. Denies hitting head or LOC. States she fell onto her right hip. Not on thinners. Pain 10/10 HISTORY OF PRESENT ILLNESS (Location/Symptom, Timing/Onset,Context/Setting, Quality, Duration, Modifying Factors, Severity) Note limiting factors. Db Doan is a 53 y.o. female who presents to the emergency department with hip pain. Fell yesterday. Complains of right hip pain. When I go into the room she is up walking around says it hurts inher right buttocks. She has long history of back pain. Long history of sciatica. She did not hit her head. No numbness or tingling. She said she fell and hurt her hip. While I am talking to her and interviewing her she says that she wants something for pain. I said that obviously I will examine herand give her something for pain. HPI Historian is patient Nurse's notes for past medical history, surgical history, social history were reviewed. Medicationsand allergies reviewed. PAST MEDICAL HISTORY Past Medical History: Diagnosis Date H/O section Incomplete tear of left rotator cuff Sciatica Seizures (HCC) Spinal stenosis SURGICALHISTORY Past Surgical History: Procedure Laterality Date HERNIA REPAIR CURRENT MEDICATIONS Previous Medications DULOXETINE (CYMBALTA) [address] CAPSULE Take 60 mg by mouth daily. Do not crush or chew. LAMOTRIGINE (LAMICTAL) 25 MG TABLET Take 150 mg by mouth daily. METHOCARBAMOL (ROBAXIN) 500 MG TABLET Take 1 tablet (500 mg) by mouth 2 times daily for 10 days. Patient has no known allergies. FAMILY HISTORY No family history on file. SOCIAL HISTORY Social History Socioeconomic History Marital status: Single Tobacco Use Smoking status: Some Days Types: Cigarettes Smokeless tobacco: Never Vaping Use Vaping status: Never Used Substance and Sexual Activity Alcohol use: Never Drug use: Never Social Drivers of Health Financial Resource Strain: Low Risk (11/01/2022) Received from [facility] [employer] [facility] Financial Resource Strain (CARDIA) Difficulty of Paying Living Expenses: Not very hard Food Insecurity: No Food Insecurity (10/23/2023) Received from Hunger Vital Sign Worried About Running Out of Food in the Last Year: Never true Ran Out of Food in the Last Year: Never true Transportation Needs: No Transportation Needs (10/23/2023) Received from PRAPARE - Transportation Lack of Transportation (Medical): No Lack of Transportation (Non-Medical): No Housing Stability: Unknown (10/23/2023) Received from Housing Stability Vital Sign Unable to Pay for Housing in the Last Year: No Homeless in the Last Year: No SCREENINGS PHYSICAL EXAM (up to 7 for level 4, 8 or more for level 5) @EDTRIAGEVSS@ Appropriate PPE including n 95, gown, gloves, goggles where worn when appropriate with this patient. Physical Exam General awake alert appropriate ambulatory without limp. She does have tenderness in right sciatic notch. No midline lumbar tenderness. Strength sensation is intact in her lower extremities. She thenstopped me from completing my exam because she said that she wanted something for pain. I was unable to do further examination DIAGNOSTIC RESULTS RADIOLOGY: Interpretation per the Radiologist below, if availableat the time of this note: No orders to display ED BEDSIDE ULTRASOUND: Performed by ED Physician - none LABS: Labs Reviewed - No data to display All other labs were within normal range or not returned as of thisdictation. EMERGENCYDEPARTMENT COURSE and DIFFERENTIAL DIAGNOSIS/MDM: Vitals: Vitals: 02/05/24 0323 02/05/24323 BP: 137/82 Pulse: 94 Resp: 16 Temp: 36.6 C (97.9 F) TempSrc: Temporal SpO2: 100% Weight: 63.5 kg (140 lb) Height: 1.702 m (5' 7) Medical Decision Making EMERGENCY DEPARTMENT COURSE and DIFFERENTIAL DIAGNOSIS/MDM: Vitals: Vitals: 02/05/24 0323 02/05/24323 BP: 137/82 Pulse: 94 Resp: 16 Temp: 36.6 C (97.9 F) TempSrc: Temporal SpO2: 100% Weight: 63.5 kg (140 lb) Height: 1.702 m (5' 7) The patient presented with a chief complaint of hip pain. The differential diagnosis associated with this patient's presentation includes hip fracture pelvis fracture muscle strain contusion sciaticacauda equina. Our workup consisted of ordering/reviewing x-rays of the right hip and pelvis. Patient declined x-rays. She interrupts me several times during the history of present illness and physical examination asking for something for pain. I explained to her that we could get her some Motrin she then said she wanted something stronger she is already on Naprosyn and gabapentin. She reports [facility] pain manage appointment next week. I explained to her that I can give her Motrin here and get her x-rays she said if she is not can have something stronger she is art leave. I explained to her that happy to treat her but I want to get x-rays and she decided to leave. She did not stay for paperwork otherwise. My suspicion that anything was fractured was low but is unable to complete my examination. Diagnoses as of 02/05/24 0351 Pain of right hip Diagnostics considered but not indicated based on history, physical, testing: None External records reviewed: Outpatient records reviewed she has visit at [facility] on 01/21/2024. She has visit at [facility] on 01/21/2024. She has a visit in [place] on 01/20/2024. She has [facility] 01/20/2024. Visit at [facility] on 01/20/2024. All of these for pain and back pain. Radiologic diagnostics interpreted by me: film images such as CT, Ultrasound and MRI are read by the radiologist. Plain radiographic images are visualized and preliminarily interpreted by the emergency physician with the below findings: Xray(s) x-rays offered she declined Discussions with other clinicians: none Chronic conditions impacting care: Sciatica seizures Social determinants of health affecting care: Smokes Shared decision making: Patient did not stay for x-rays. I explained to her that she needs to follow-up with her primary care physician and keep her appointment pain management. She did not want to stay for discharge papers but I did give her verbal instructions. ED Medications managed: Medications - No data to display Prescription drugs prescribed: PROCEDURES: Unless otherwise noted below, none Procedures IMPRESSION 1. Pain of right hip DISPOSITION/PLAN DISPOSITION Discharge 02/05/2024 03:50:40 AM PATIENT REFERRED TO: No follow-up provider specified. DISCHARGE MEDICATIONS: New Prescriptions No medications on file @[facility]([id number]:LAST:1)@ (Comment: Please notethis report has been produced using speech recognition software and may contain errors related to that system including errors in grammar, punctuation, and spelling, as well as words and phrases that may be inappropriate.If there is any questions or concerns please feel free tocontact the dictating provider for clarification). Jennifer Mae MD (electronically signed) Attending Emergency Physician Jennifer Mae MD 02/05/[address] [id number] Emergency department Note* Bay Jackson RN - 01/21/2024 6:36 AM EST Pt given discharge instructions both written and oral gait steady upon dc [id number] Emergency department Note* Bay Jackson RN - 01/21/2024 6:36 AM EST Pt given discharge instructions both written and oral gait steady upon dc * Samuel Lopez MD - 01/21/2024 6:01 AM EST EMERGENCY DEPARTMENT ENCOUNTER Pt Name: Db Doan Birthdate 1970 Date of evaluation: 01/21/2024 ED Provider: Samuel Lopez MD CHIEF COMPLAINT Chief Complaint Patient presents with Back Pain HISTORY OF PRESENT ILLNESS (Location/Symptom, Timing/Onset, Context/Setting, Quality, Duration, Modifying Factors, Severity) Note limiting factors. I wore appropriate PPE for the entirety of this encounter. HPI Db Doan is a 53 y.o. who presents to the emergency department with chief complaint of chronic low back pain. The patient has had issues with her back for a long time. She recently had COVID. Shethinks some kind of inflammatory reaction set off something in her back. She gets these acsy-cxl-wvhfdad sensations going up and down. She said she slipped and fell when [place] her [place]. She has problems with her left ankle because of a torn ligament. Sheasked if we had an MRI machine. She was concerned because she had some issues with bowel control couple weeks ago. She has had back injections before, but they have not really helped her. She went to 3 different emergency departments yesterday and seems to go to different places looking for help and pain medication. Yesterday she had a CT of her pelvis at the [facility] which showed no acute bony abnormality. No other acute complaints described. 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 Limitations to history: None Outside historians: None REVIEW OF SYSTEMS Review of Systems Constitutional: Negative. HENT: Negative. Eyes: Negative. Respiratory: Negative. Cardiovascular: Negative. Gastrointestinal: Negative. Genitourinary: Negative. Musculoskeletal: Positive for back pain. Skin: Negative for color change and rash. Neurological: Negative. All other systems reviewed and are negative. Pertinent positives and negatives as per HPI. PAST MEDICAL HISTORY Past Medical History: Diagnosis Date H/O section Incomplete tear of left rotator cuff Sciatica Seizures (HCC) Spinal stenosis SURGICAL HISTORY Past Surgical History: Procedure Laterality Date HERNIA REPAIR CURRENT MEDICATIONS Previous Medications DULOXETINE (CYMBALTA) [address] CAPSULE Take 60 mg by mouth daily. Do not crush or chew. LAMOTRIGINE (LAMICTAL) 25 MG TABLET Take 150 mg by mouth daily. METHOCARBAMOL (ROBAXIN) 500 MG TABLET Take 1 tablet (500 mg) by mouth 2 times daily for 10 days. ALLERGIES Patient has no known allergies. FAMILY HISTORY No family history on file. SOCIAL HISTORY Social History Socioeconomic History Marital status: Single Tobacco Use Smoking status: Some Days Types: Cigarettes Smokeless tobacco: Never Vaping Use Vaping status: Never Used Substance and Sexual Activity Alcohol use: Never Drug use: Never Social Drivers of Health Financial Resource Strain: Low Risk (11/01/2022) Received from [facility] [employer] [facility] Overall Financial Resource Strain (CARDIA) Difficulty of Paying Living Expenses: Not very hard Food Insecurity: No Food Insecurity (10/23/2023) Received from Hunger Vital Sign Worried About Running Out of Food in the Last Year: Never true Ran Out of Food in the Last Year: Never true Transportation Needs: No Transportation Needs (10/23/2023) Received from PRAPARE - Transportation Lack of Transportation (Medical): No Lack of Transportation (Non-Medical): No Housing Stability: Unknown (10/23/2023) Received from Housing Stability Vital Sign Unable to Pay for Housing in the Last Year: No Homeless in the Last Year: No SCREENINGS PHYSICAL EXAM ED Triage Vitals [01/21/24 0607] Temp Heart Rate Resp BP 36.2 C (97.1 F) 99 18 (!) 143/100 SpO2 Temp src Heart Rate Source Patient Position 99 % -- -- -- BP Location FiO2 (%) -- -- Physical Exam Vitals and nursing note reviewed. Constitutional: Appearance: Normal appearance. She is well-developed and normal weight. She is not toxic-appearing. Comments: Patient is tearful and upset although nontoxic. HENT: Head: Normocephalic and atraumatic. Right Ear: External ear normal. Left Ear: External ear normal. Nose: Nose normal. Mouth/Throat: Mouth: Mucous membranes are moist. Pharynx: Oropharynx is clear. Eyes: Extraocular Movements: Extraocular movements intact. Conjunctiva/sclera: Conjunctivae normal. Pupils: Pupils are equal, round, and reactive to light. Cardiovascular: Rate and Rhythm: Normal rate and regular rhythm. Heart sounds: No murmur heard. Pulmonary: Effort: Pulmonary effort is normal. No respiratory distress. Breath sounds: Normal breath sounds. Abdominal: Palpations: Abdomen is soft. Tenderness: There is no abdominal tenderness. Musculoskeletal: General: Normal range of motion. Cervical back: Normal range of motion and neck supple. Skin: General: Skin is warm and dry. Neurological: General: No focal deficit present. Mental Status: She is alert and oriented to person, place, and time. GCS: GCS eye subscore is 4. GCS verbal subscore is 5. GCS motor subscore is 6. Cranial Nerves: Cranial nerves 2-12 are intact. Sensory: Sensation is intact. Motor: Motor function is intact. Coordination: Coordination is intact. Psychiatric: Mood and Affect: Mood normal. DIAGNOSTIC RESULTS Interpretation per the Radiologist below, if available at the time of this note: No orders to display ED BEDSIDE ULTRASOUND: Performed by ED Physician - none LABS: Labs Reviewed - No data to display All other labs were within normal range or not returned as of this dictation. EMERGENCY DEPARTMENT COURSE and DIFFERENTIAL DIAGNOSIS/MDM: Vitals: Vitals: 01/21/24 0607 BP: (!) 143/100 Pulse: 99 Resp: 18 Temp: 36.2 C (97.1 F) SpO2: 99% Weight: 63.5 kg (140 lb) Height: 1.702 m (5' 7) Diagnoses as of 01/21/24 0625 Chronic back pain, unspecified back location, unspecified back pain laterality The patient presented with chief complaint of back pain. The differential diagnosis associated with this patient's presentation includes chronic back pain, drug-seeking behavior, unlikely sciatica versus lumbar radiculopathy, unlikely epidural abscess. Our workup consisted of ordering/reviewing: No imaging studies indicated. Patient is in agreement with this plan. Medications ketorolac (Toradol) injection 30 mg (has no administration in time range) REVAL: I told the patient that I would not be giving her narcotic pain medication. We will give her a shotof Toradol even though I offered her p.o. ibuprofen. She said she would rather have the shot. I told her that we do not have an MRI machine. She would have to go to the hospital for that. I told her that she needs to contact her primary physician to manage her care. I reaffirmed to her that the role the emergency department is to not refill pain medications. It is very suspicious that she is driving around to multiple different locations for the same complaint. Patient will be discharged home and recommend outpatient follow-up. CRITICAL CARE TIME None CONSULTS: None PROCEDURES: Unless otherwise noted below, none FINAL IMPRESSION 1. Chronic back pain, unspecified back location, unspecified back pain laterality DISPOSITION Discharge 01/21/2024 06:24:15 AM PATIENT REFERRED TO: Maria Elena Montalvo MD [address] [place] [address] [address] [place] [address] Schedule an appointment as soon as possible for a visit DISCHARGE MEDICATIONS: New Prescriptions No medications on file (Comment: Please note this report has been produced using speech recognition software and may contain errors related to that system including errors in grammar, punctuation, and spelling, as well as words and phrases that may be inappropriate. If there are any questions or concerns please feel freeto contact the dictating provider for clarification.) Samuel Lopez MD (electronically signed) Emergency Medicine Provider Samuel Lopez MD 01/21/24 0633 * Bay Jackson RN - 01/21/2024 6:01 AM EST Pt in with complaint of low back pain pt states she fell last night pt alert and oriented skin warmand dry no resp idstress pt rates pain 10/10 gait steady upon arrival documented in this [facility]11-19-2024 Emergency department Triage note* Bay Jackson RN - 01/21/2024 6:01 AM EST Pt in with complaint of low back pain pt states she fell last night pt alert and oriented skin warmand dry no resp idstress pt rates pain 10/10 gait steady [id number] Emergency department Note* Samuel Lopez MD - 01/21/2024 6:01 AM EST EMERGENCY DEPARTMENT ENCOUNTER Pt Name: Db Doan Birthdate 1970 Date of evaluation: 01/21/2024 ED Provider: Samuel Lopez MD CHIEF COMPLAINT Chief Complaint Patient presents with Back Pain HISTORY OF PRESENT ILLNESS (Location/Symptom, Timing/Onset, Context/Setting, Quality, Duration, Modifying Factors, Severity) Note limiting factors. I wore appropriate PPE for the entirety of this encounter. HPI Db Doan is a 53 y.o. who presents to the emergency department with chief complaint of chronic low back pain. The patient has had issues with her back for a long time. She recently had COVID. Shethinks some kind of inflammatory reaction set off something in her back. She gets these [id number] sensations going up and down. She said she slipped and fell when she [place] her cat. She has problems with her left ankle because of a torn ligament. Sheasked if we had an MRI machine. She was concerned because she had some issues with bowel control couple weeks ago. She has had back injections before, but they have not really helped her. She went to 3 different emergency departments yesterday and seems to go to different places looking for help and pain medication. Yesterday she had a CT of her pelvis at the [facility] which showed no acute bony abnormality. No other acute complaints described. 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 Limitations to history: None Outside historians: None REVIEW OF SYSTEMS Review of Systems Constitutional: Negative. HENT: Negative. Eyes: Negative. Respiratory: Negative. Cardiovascular: Negative. Gastrointestinal: Negative. Genitourinary: Negative. Musculoskeletal: Positive for back pain. Skin: Negative for color change and rash. Neurological: Negative. All other systems reviewed and are negative. Pertinent positives and negatives as per HPI. PAST MEDICAL HISTORY Past Medical History: Diagnosis Date H/O section Incomplete tear of left rotator cuff Sciatica Seizures (HCC) Spinal stenosis SURGICAL HISTORY Past Surgical History: Procedure Laterality Date HERNIA REPAIR CURRENT MEDICATIONS Previous Medications DULOXETINE (CYMBALTA) [address] CAPSULE Take 60 mg by mouth daily. Do not crush or chew. LAMOTRIGINE (LAMICTAL) 25 MG TABLET Take 150 mg by mouth daily. METHOCARBAMOL (ROBAXIN) 500 MG TABLET Take 1 tablet (500 mg) by mouth 2 times daily for 10 days. ALLERGIES Patient has no known allergies. FAMILY HISTORY No family history on file. SOCIAL HISTORY Social History Socioeconomic History Marital status: Single Tobacco Use Smoking status: Some Days Types: Cigarettes Smokeless tobacco: Never Vaping Use Vaping status: Never Used Substance and Sexual Activity Alcohol use: Never Drug use: Never Social Drivers of Health Financial Resource Strain: Low Risk (11/01/2022) [facility] Overall Financial Resource Strain (CARDIA) Difficulty of Paying Living Expenses: Not very hard Food Insecurity: No Food Insecurity (10/23/2023) Received from [facility] Vital Sign Worried About Running Out of Food in the Last Year: Never true Ran Out of Food in the Last Year: Never true Transportation Needs: No Transportation Needs (10/23/2023) Received from [facility] - Transportation Lack of Transportation (Medical): No Lack of Transportation (Non-Medical): No Housing Stability: Unknown (10/23/2023) Received from Housing Stability Vital Sign Unable to Pay for Housing in the Last Year: No Homeless in the Last Year: No SCREENINGS PHYSICAL EXAM ED Triage Vitals [01/21/24 0607] Temp Heart Rate Resp BP 36.2 C (97.1 F) 99 18 (!) 143/100 SpO2 Temp src Heart Rate Source Patient Position 99 % -- -- -- BP Location FiO2 (%) -- -- Physical Exam Vitals and nursing note reviewed. Constitutional: Appearance: Normal appearance. She is well-developed and normal weight. She is not toxic-appearing. Comments: Patient is tearful and upset although nontoxic. HENT: Head: Normocephalic and atraumatic. Right Ear: External ear normal. Left Ear: External ear normal. Nose: Nose normal. Mouth/Throat: Mouth: Mucous membranes are moist. Pharynx: Oropharynx is clear. Eyes: Extraocular Movements: Extraocular movements intact. Conjunctiva/sclera: Conjunctivae normal. Pupils: Pupils are equal, round, and reactive to light. Cardiovascular: Rate and Rhythm: Normal rate and regular rhythm. Heart sounds: No murmur heard. Pulmonary: Effort: Pulmonary effort is normal. No respiratory distress. Breath sounds: Normal breath sounds. Abdominal: Palpations: Abdomen is soft. Tenderness: There is no abdominal tenderness. Musculoskeletal: General: Normal range of motion. Cervical back: Normal range of motion and neck supple. Skin: General: Skin is warm and dry. Neurological: General: No focal deficit present. Mental Status: She is alert and oriented to person, place, and time. GCS: GCS eye subscore is 4. GCS verbal subscore is 5. GCS motor subscore is 6. Cranial Nerves: Cranial nerves 2-12 are intact. Sensory: Sensation is intact. Motor: Motor function is intact. Coordination: Coordination is intact. Psychiatric: Mood and Affect: Mood normal. DIAGNOSTIC RESULTS Interpretation per the Radiologist below, if available at the time of this note: No orders to display ED BEDSIDE ULTRASOUND: Performed by ED Physician - none LABS: Labs Reviewed - No data to display All other labs were within normal range or not returned as of this dictation. EMERGENCY DEPARTMENT COURSE and DIFFERENTIAL DIAGNOSIS/MDM: Vitals: Vitals: 01/21/24 0607 BP: (!) 143/100 Pulse: 99 Resp: 18 Temp: 36.2 C (97.1 F) SpO2: 99% Weight: 63.5 kg (140 lb) Height: 1.702 m (5' 7) Diagnoses as of 01/21/24 0625 Chronic back pain, unspecified back location, unspecified back pain laterality The patient presented with chief complaint of back pain. The differential diagnosis associated with this patient's presentation includes chronic back pain, drug-seeking behavior, unlikely sciatica versus lumbar radiculopathy, unlikely epidural abscess. Our workup consisted of ordering/reviewing: No imaging studies indicated. Patient is in agreement with this plan. Medications ketorolac (Toradol) injection 30 mg (has no administration in time range) REVAL: I told the patient that I would not be giving her narcotic pain medication. We will give her a shotof Toradol even though I offered her p.o. ibuprofen. She said she would rather have the shot. I told her that we do not have an MRI machine. She would have to go to the hospital for that. I told her that she needs to contact her primary physician to manage her care. I reaffirmed to her that the role the emergency department is to not refill pain medications. It is very suspicious that she is driving around to multiple different locations for the same complaint. Patient will be discharged home and recommend outpatient follow-up. CRITICAL CARE TIME None CONSULTS: None PROCEDURES: Unless otherwise noted below, none FINAL IMPRESSION 1. Chronic back pain, unspecified back location, unspecified back pain laterality DISPOSITION Discharge 01/21/2024 06:24:15 AM PATIENT REFERRED TO: Maria Elena Montalvo MD [address] [facility] [address] [place] [address] Schedule an appointment as soon as possible for a visit DISCHARGE MEDICATIONS: New Prescriptions No medications on file (Comment: Please note this report has been produced using speech recognition software and may contain errors related to that system including errors in grammar, punctuation, and spelling, as well as words and phrases that may be inappropriate. If there are any questions or concerns please feel freeto contact the dictating provider for clarification.) Samuel Lopez MD (electronically signed) Emergency Medicine Provider Samuel Lopez MD 01/21/[address] 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 No Past Surgical History: Past Surgical History: Procedure Laterality Date SECTION SECTION 08/09/1999 &12/11/[address] PACHECO HC INJECTION PROCEDURE FOR SACROILIAC JOINT Left 02/02/2019 LEFT SACROILIAC JOINT INJECTION WITHOUT SEDATION (CPT 29114) performed by Khoa Gallagher MD at [facility] OR HERNIA REPAIR HIP SURGERY Left 03/17/2019 LEFT HIP INJECTION WITHOUT SEDATION (CPT 51576,45266) performed by Khoa Gallagher MD at [facility] OR NERVE BLOCK Left 02/02/2019 sacroiliac [...] F43.10 Sprain or strain of cervical spine [id number] Reactive depression F32.9 Acute exacerbation of chronic [...] Status: {IP PT MENTAL STATUS:} IV Access: {[facility] IV ACCESS:794407451} Nursing Mobility/ADLs: Walking {[facility] DME ADLs:505552134} Transfer {[facility] DME ADLs:758897591} Bathing {[facility] DME ADLs:966818015} Dressing {P DME ADLs:174132656} Toileting {[facility] DME ADLs:358675610} Feeding {[facility] DME ADLs:486452629} Crusher Plant Operator {P DME ADLs:057477060} Med Delivery { YEYO MED Delivery:252171512} Wound Care Documentation and Therapy: Elimination: Continence: Bowel: {YES / NO:} Bladder: {YES / NO:} Urinary Catheter: {Urinary Catheter:397718890} Colostomy/Ileostomy/Ileal Conduit: {YES / NO:} Date of Last BM: No intake or output data in the 24 hours ending 01/13/24938 No intake/output data recorded. Safety Concerns: { YEYO Safety Concerns:783981664} Impairments/Disabilities: { YEYO Impairments/Disabilities:262386264} Nutrition Therapy: Current Nutrition Therapy: {[facility] Diet List:524000358} Routes of Feeding: {[facility] DME Other Feedings:631605402} Liquids: {[facility] liquid thickness:07167} Daily Fluid Restriction: {[facility] DME Yes amt example:427795010} Last Modified Barium Swallow with Video (Video Swallowing Test): {Done Not Done Date:} Treatments at the Time of Hospital Discharge: Respiratory Treatments: Oxygen Therapy: {Therapy; copd oxygen:01873} Ventilator: {[facility] Vent List:918084253} Rehab Therapies: {THERAPEUTIC INTERVENTION:4076155801} Weight Bearing Status/Restrictions: {[facility] Weight Bearin} Other Medical Equipment (for information only, NOT a DME order): {EQUIPMENT:917874086} Other Treatments: Patient's personal belongings (please select all that are sent with patient): {[facility] DME Belongings:413278324} RN SIGNATURE: {Esignature:719025228} CASE MANAGEMENT/SOCIAL WORK SECTION Inpatient Status Date: Readmission Risk Assessment Score: Readmission Risk Risk of Unplanned Readmission: 0 Discharging to Facility/ Agency Name: Address: Phone: Fax: Dialysis Facility (if applicable) Name: Address: Dialysis Schedule: Phone: Fax: Coal Shooter/Kinesiologist signature: {Esignature:044085135} PHYSICIAN SECTION Prognosis: {Prognosis:3680223837} Condition at Discharge: { Patient Condition:519061102} Rehab Potential (if transferring to Rehab): {Prognosis:6933621598} Recommended Labs or Other Treatments After Discharge: Physician Certification: I certify the above information and transfer of Db Doan is necessary for the continuing treatment of the diagnosis listed and that she requires {Admit to Appropriate Level of Care:94531} for {GREATER/LESS:299269623} 30 days. Update Admission H&P: {[facility] DME Changes in HandP:927934978} PHYSICIAN SIGNATURE: {Esignature:020127409} * Attachments The following attachments cannot be sent through Care Everywhere. * [facility] ([place] Discharge [facility]* Discharge Instructions* Kayode Jansen DO - 01/09/2024 4:58 AM EST You may use over the counter medications such as Tylenol for pain. You may apply heat to the area * Attachments The following attachments cannot be sent through Care Everywhere. * Hip Pain ([place]) [facility] Emergency department Note* Samuel Lopez MD - 01/06/2024 5:18 PM EST EMERGENCY DEPARTMENT ENCOUNTER Pt Name: Db Doan Birthdate 1970 Date of evaluation: 01/06/2024 ED Provider: Samuel Lopez MD CHIEF COMPLAINT Chief Complaint Patient presents with Fall Patient reports falling onto left shoulder last night. C/o back pain, left shoulder pain, and left ankle pain. HISTORY OF PRESENT ILLNESS (Location/Symptom, Timing/Onset, Context/Setting, Quality, Duration, Modifying Factors, Severity) Note limiting factors. I wore appropriate PPE for the entirety of this encounter. HPI Db Doan is a 53 y.o. who presents to the emergency department with chief complaint of left shoulder pain from a fall. The patient has a history of prior ankle injury. She says she tore some tendons in her ankle. She frequently twists her ankle. She has a walking boot and Aircast at home, but she says it hurts when she wears those. She took it off yesterday. She said her ankle gave out and she fell onto her left shoulder and her lower back. She mostly complains of pain in her left shoulder.She says her back always hurts. She took gabapentin at home for this. She is supposed to be going to a resource conservation specialist through the [facility]. She says she has not seen the pain management doctor yet for what ever reason. She wanted something for pain here. She is right-hand dominant. She denies any other injuries. She denies any current illnesses or any other associated complaints. 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 Limitations to history: None Outside historians: None REVIEW OF SYSTEMS Review of Systems Constitutional: Negative. Musculoskeletal: Positive for arthralgias. Skin: Positive for wound. Neurological: Negative. Negative for weakness and numbness. Pertinent positives and negatives as per HPI. PAST MEDICAL HISTORY Past Medical History: Diagnosis Date H/O section Incomplete tear of left rotator cuff Sciatica Seizures (HCC) Spinal stenosis SURGICAL HISTORY Past Surgical History: Procedure Laterality Date HERNIA REPAIR CURRENT MEDICATIONS Previous Medications DULOXETINE (CYMBALTA) [address] CAPSULE Take 60 mg by mouth daily. Do not crush or chew. LAMOTRIGINE (LAMICTAL) 25 MG TABLET Take 150 mg by mouth daily. METHOCARBAMOL (ROBAXIN) 500 MG TABLET Take 1 tablet (500 mg) by mouth 2 times daily for 10 days. ALLERGIES Patient has no known allergies. FAMILY HISTORY No family history on file. SOCIAL HISTORY Social History Socioeconomic History Marital status: Single Tobacco Use Smoking status: Some Days Types: Cigarettes Smokeless tobacco: Never Vaping Use Vaping status: Never Used Substance and Sexual Activity Alcohol use: Never Drug use: Never Social Drivers of Health Financial Resource Strain: Low Risk (11/01/2022) Received from [facility] Overall Financial Resource Strain (CARDIA) Difficulty of Paying Living Expenses: Not very hard Food Insecurity: No Food Insecurity (10/23/2023) Received from [facility] Vital Sign Worried About Running Out of Food in the Last Year: Never true Ran Out of Food in the Last Year: Never true Transportation Needs: No Transportation Needs (10/23/2023) Received from [facility] - Transportation Lack of Transportation (Medical): No Lack of Transportation (Non-Medical): No Housing Stability: Unknown (10/23/2023) Received from Housing Stability Vital Sign Unable to Pay for Housing in the Last Year: No Homeless in the Last Year: No SCREENINGS PHYSICAL EXAM ED Triage Vitals [01/06/24 1722] Temp Heart Rate Resp BP 36.4 C (97.5 F) 96 18 127/87 SpO2 Temp Source Heart Rate Source Patient Position 97 % Temporal Monitor -- BP Location FiO2 (%) -- -- Physical Exam Vitals and nursing note reviewed. Constitutional: Appearance: Normal appearance. She is normal weight. She is not toxic-appearing. Comments: Patient appears uncomfortable although nontoxic. Musculoskeletal: General: Tenderness present. No deformity. Normal range of motion. Comments: There is tenderness to palpation of the left anterior shoulder. There is no bruising or swelling of the shoulder. There is no crepitus or deformity. The left clavicle and elbow are stable and nontender. She is neurovascular intact in the left upper extremity. There is no reproducible palpable spinal tenderness. There were no other signs of extremity injury. There is no palpable ankle tenderness. She is neurovascular intact distally. There is swelling and erythema mainly of the medial aspect of the left great toe. There is no pointing or purulent drainage. Findings appear consistent with localized infection of her left medial toe. Findings are likely consistent with a paronychia. Skin: General: Skin is warm and dry. Neurological: General: No focal deficit present. Mental Status: She is alert and oriented to person, place, and time. GCS: GCS eye subscore is 4. GCS verbal subscore is 5. GCS motor subscore is 6. Cranial Nerves: Cranial nerves 2-12 are intact. Sensory: Sensation is intact. Motor: Motor function is intact. Coordination: Coordination is intact. Psychiatric: Mood and Affect: Mood normal. DIAGNOSTIC RESULTS RADIOLOGY (Per Emergency Physician): X-ray of the left shoulder interpreted by me shows no evidence of fracture or dislocation. Interpretation per the Radiologist below, if available at the time of this note: XR shoulder 2+ views left Final Result 1. No significant finding. Report Dictated on Electronically Signed By: Siddhartha Go MD Electronically Signed Date/Time: 01/06/2024 8:02 PM EST ED BEDSIDE ULTRASOUND: Performed by ED Physician - none LABS: Labs Reviewed - No data to display All other labs were within normal range or not returned as of this dictation. EMERGENCY DEPARTMENT COURSE and DIFFERENTIAL DIAGNOSIS/MDM: Vitals: Vitals: 01/06/24 1722 BP: 127/87 Pulse: 96 Resp: 18 Temp: 36.4 C (97.5 F) TempSrc: Temporal SpO2: 97% Diagnoses as of 01/06/242038 Fall, initial encounter Left shoulder pain, unspecified chronicity Toe infection The patient presented with chief complaint of fall with left shoulder pain. The differential diagnosis associated with this patient's presentation includes left shoulder contusion, less likely left shoulder fracture. Our workup consisted of ordering/reviewing: X-rays will be obtained. Patient is in agreement with this plan. Medications ibuprofen tablet 600 mg (600 mg Oral Given 01/06/242005) oxyCODONE-acetaminophen (Percocet) 5-325 MG per tablet 1 tablet (1 tablet Oral Given 01/06/242005) cephalexin (Keflex) capsule 500 mg (500 mg Oral Given 01/06/242005) REVAL: For what appears to be an wound infection or early paronychia, I ordered p.o. Keflex for her. I ordered ibuprofen for pain as well as 1 Percocet. X-ray of the left shoulder showed nothing acute. I reassured her and told her that there is no fracture. I gave her wound care instructions for her greattoe. I will write her for Keflex for home. I will refer her Percocet dispense 5 only. I told her that our job is to not to refill pain medication. She needs to follow-up with her primary care provider, pain management doctor or orthopedist. Patient is comfortable with the plan. No other tests or imaging studies were necessary or indicated. CRITICAL CARE TIME None CONSULTS: None PROCEDURES: Unless otherwise noted below, none FINAL IMPRESSION 1. Fall, initial encounter 2. Left shoulder pain, unspecified chronicity 3. Toe infection DISPOSITION Discharge 01/06/2024 08:37:40 PM [facility] [address] [place] [address] Schedule an appointment as soon as possible for a visit Maria Elena Montalvo MD [address] [facility] [address] [facility] [address] Call If symptoms worsen DISCHARGE MEDICATIONS: New Prescriptions CEPHALEXIN (KEFLEX) 500 MG CAPSULE Take 1 capsule (500 mg) by mouth in the morning and 1 capsule (500 mg) at noon and 1 capsule (500 mg) in the evening and 1 capsule (500 mg) before bedtime. Do all this for 7 days. OXYCODONE-ACETAMINOPHEN (PERCOCET) 5-325 MG TABLET Take 1 tablet by mouth every 6 hours as needed for severe pain (7-10) for up to 5 days. (Comment: Please note this report has been produced using speech recognition software and may contain errors related to that system including errors in grammar, punctuation, and spelling, as well as words and phrases that may be inappropriate. If there are any questions or concerns please feel freeto contact the dictating provider for clarification.) Samuel Lopez MD (electronically signed) Emergency Medicine Provider Samuel Lopez MD 01/06/242040 * Shellie Heredia RN - 01/06/2024 5:18 PM EST Patient reports falling onto left shoulder last night. C/o back pain, left shoulder pain, and left ankle pain. documented in this [facility]11-04-2024 Emergency department Triage note* Shellie Heredia RN - 01/06/2024 5:18 PM EST Patient reports falling onto left shoulder last night. C/o back pain, left shoulder pain, and left ankle pain. [id number] Physician Emergency department Note* Samuel Lopez MD - 01/06/2024 5:18 PM EST EMERGENCY DEPARTMENT ENCOUNTER Pt Name: Db Doan Birthdate 1970 Date of evaluation: 01/06/2024 ED Provider: Samuel Lopez MD CHIEF COMPLAINT Chief Complaint Patient presents with Fall Patient reports falling onto left shoulder last night. C/o back pain, left shoulder pain, and left ankle pain. HISTORY OF PRESENT ILLNESS (Location/Symptom, Timing/Onset, Context/Setting, Quality, Duration, Modifying Factors, Severity) Note limiting factors. I wore appropriate PPE for the entirety of this encounter. HPI Db Doan is a 53 y.o. who presents to the emergency department with chief complaint of left shoulder pain from a fall. The patient has a history of prior ankle injury. She says she tore some tendons in her ankle. She frequently twists her ankle. She has a walking boot and Aircast at home, but she says it hurts when she wears those. She took it off yesterday. She said her ankle gave out and she fell onto her left shoulder and her lower back. She mostly complains of pain in her left shoulder.She says her back always hurts. She took gabapentin at home for this. She is supposed to be going to a resource conservation specialist through the [facility]. She says she has not seen the pain management doctor yet for what ever reason. She wanted something for pain here. She is right-hand dominant. She denies any other injuries. She denies any current illnesses or any other associated complaints. 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 Limitations to history: None Outside historians: None REVIEW OF SYSTEMS Review of Systems Constitutional: Negative. Musculoskeletal: Positive for arthralgias. Skin: Positive for wound. Neurological: Negative. Negative for weakness and numbness. Pertinent positives and negatives as per HPI. PAST MEDICAL HISTORY Past Medical History: Diagnosis Date H/O section Incomplete tear of left rotator cuff Sciatica Seizures (HCC) Spinal stenosis SURGICAL HISTORY Past Surgical History: Procedure Laterality Date HERNIA REPAIR CURRENT MEDICATIONS Previous Medications DULOXETINE (CYMBALTA) [address] CAPSULE Take 60 mg by mouth daily. Do not crush or chew. LAMOTRIGINE (LAMICTAL) 25 MG TABLET Take 150 mg by mouth daily. METHOCARBAMOL (ROBAXIN) 500 MG TABLET Take 1 tablet (500 mg) by mouth 2 times daily for 10 days. ALLERGIES Patient has no known allergies. FAMILY HISTORY No family history on file. SOCIAL HISTORY Social History Socioeconomic History Marital status: Single Tobacco Use Smoking status: Some Days Types: Cigarettes Smokeless tobacco: Never Vaping Use Vaping status: Never Used Substance and Sexual Activity Alcohol use: Never Drug use: Never Social Drivers of Health Financial Resource Strain: Low Risk (11/01/2022) Received from [facility] Overall Financial Resource Strain (CARDIA) Difficulty of Paying Living Expenses: Not very hard Food Insecurity: No Food Insecurity (10/23/2023) Received from Hunger Vital Sign Worried About Running Out of Food in the Last Year: Never true Ran Out of Food in the Last Year: Never true Transportation Needs: No Transportation Needs (10/23/2023) Received from PRAPARE - Transportation Lack of Transportation (Medical): No Lack of Transportation (Non-Medical): No Housing Stability: Unknown (10/23/2023) Received from Housing Stability Vital Sign Unable to Pay for Housing in the Last Year: No Homeless in the Last Year: No SCREENINGS PHYSICAL EXAM ED Triage Vitals [01/06/24 1722] Temp Heart Rate Resp BP 36.4 C (97.5 F) 96 18 127/87 SpO2 Temp Source Heart Rate Source Patient Position 97 % Temporal Monitor -- BP Location FiO2 (%) -- -- Physical Exam Vitals and nursing note reviewed. Constitutional: Appearance: Normal appearance. She is normal weight. She is not toxic-appearing. Comments: Patient appears uncomfortable although nontoxic. Musculoskeletal: General: Tenderness present. No deformity. Normal range of motion. Comments: There is tenderness to palpation of the left anterior shoulder. There is no bruising or swelling of the shoulder. There is no crepitus or deformity. The left clavicle and elbow are stable and nontender. She is neurovascular intact in the left upper extremity. There is no reproducible palpable spinal tenderness. There were no other signs of extremity injury. There is no palpable ankle tenderness. She is neurovascular intact distally. There is swelling and erythema mainly of the medial aspect of the left great toe. There is no pointing or purulent drainage. Findings appear consistent with localized infection of her left medial toe. Findings are likely consistent with a paronychia. Skin: General: Skin is warm and dry. Neurological: General: No focal deficit present. Mental Status: She is alert and oriented to person, place, and time. GCS: GCS eye subscore is 4. GCS verbal subscore is 5. GCS motor subscore is 6. Cranial Nerves: Cranial nerves 2-12 are intact. Sensory: Sensation is intact. Motor: Motor function is intact. Coordination: Coordination is intact. Psychiatric: Mood and Affect: Mood normal. DIAGNOSTIC RESULTS RADIOLOGY (Per Emergency Physician): X-ray of the left shoulder interpreted by me shows no evidence of fracture or dislocation. Interpretation per the Radiologist below, if available at the time of this note: XR shoulder 2+ views left Final Result 1. No significant finding. Report Dictated on Electronically Signed By: Siddhartha Go MD Electronically Signed Date/Time: 01/06/2024 8:02 PM EST ED BEDSIDE ULTRASOUND: Performed by ED Physician - none LABS: Labs Reviewed - No data to display All other labs were within normal range or not returned as of this dictation. EMERGENCY DEPARTMENT COURSE and DIFFERENTIAL DIAGNOSIS/MDM: Vitals: Vitals: 01/06/24 1722 BP: 127/87 Pulse: 96 Resp: 18 Temp: 36.4 C (97.5 F) TempSrc: Temporal SpO2: 97% Diagnoses as of 01/06/242038 Fall, initial encounter Left shoulder pain, unspecified chronicity Toe infection The patient presented with chief complaint of fall with left shoulder pain. The differential diagnosis associated with this patient's presentation includes left shoulder contusion, less likely left shoulder fracture. Our workup consisted of ordering/reviewing: X-rays will be obtained. Patient is in agreement with this plan. Medications ibuprofen tablet 600 mg (600 mg Oral Given 01/06/242005) oxyCODONE-acetaminophen (Percocet) 5-325 MG per tablet 1 tablet (1 tablet Oral Given 01/06/242005) cephalexin (Keflex) capsule 500 mg (500 mg Oral Given 01/06/242005) REVAL: For what appears to be an wound infection or early paronychia, I ordered p.o. Keflex for her. I ordered ibuprofen for pain as well as 1 Percocet. X-ray of the left shoulder showed nothing acute. I reassured her and told her that there is no fracture. I gave her wound care instructions for her greattoe. I will write her for Keflex for home. I will refer her Percocet dispense 5 only. I told her that our job is to not to refill pain medication. She needs to follow-up with her primary care provider, pain management doctor or orthopedist. Patient is comfortable with the plan. No other tests or imaging studies were necessary or indicated. CRITICAL CARE TIME None CONSULTS: None PROCEDURES: Unless otherwise noted below, none FINAL IMPRESSION 1. Fall, initial encounter 2. Left shoulder pain, unspecified chronicity 3. Toe infection DISPOSITION Discharge 01/06/2024 08:37:40 PM PATIENT REFERRED TO: [facility] [id number] Schedule an appointment as soon as possible for a visit Maria Elena Montalvo MD [address] [facility] [address] [place] [address] Call If symptoms worsen DISCHARGE MEDICATIONS: New Prescriptions CEPHALEXIN (KEFLEX) 500 MG CAPSULE Take 1 capsule (500 mg) by mouth in the morning and 1 capsule (500 mg) at noon and 1 capsule (500 mg) in the evening and 1 capsule (500 mg) before bedtime. Do all this for 7 days. OXYCODONE-ACETAMINOPHEN (PERCOCET) 5-325 MG TABLET Take 1 tablet by mouth every 6 hours as needed for severe pain (7-10) for up to 5 days. (Comment: Please note this report has been produced using speech recognition software and may contain errors related to that system including errors in grammar, punctuation, and spelling, as well as words and phrases that may be inappropriate. If there are any questions or concerns please feel freeto contact the dictating provider for clarification.) Samuel Lopez MD (electronically signed) Emergency Medicine Provider Samuel Lopez MD 01/06/242040 [facility] Telephone encounter Note* Telephone Encounter - Brandy Samuel - 12/31/2023 2:04 PM EDT LVM with patient to call back/reschedule her procedures. Brandy Samuel 10-29-2024 Miscellaneous Notes* Telephone Encounter - Brandy Samuel - 12/31/2023 2:04 PM EDT LVM with patient to call back/reschedule her procedures. Brandy Samuel * Telephone Encounter - Db [...] other than patient: n/a Best contact number: [phone] Thank you, Marie Greco December 31, 2023 12:16 PM documented in this encounter10-29-2024 Telephone encounter Note * Telephone Encounter - [...] other than patient: n/a Best contact number: [phone] Thank you, Marie Fannie December 31, 2023 12:16 PM 10-27-2024 Hospital Discharge instructions* Discharge Instructions* Hu Hannah [...] through Care Everywhere. * Opioids: Safe Use (Montenegrin) * Back Pain: Urgent Symptoms (Montenegrin) * Chronic Pain (Montenegrin) documented [facility] [id number] Hospital Discharge instructions Patient Education 12/22/2023 02:17:11 [...] are taking other medicines. You may use uymf-yow-lxegmlh medicine to control pain, unless another pain medicine was prescribed.If you have chronic conditions like diabetes, liver or kidney disease, stomach ulcers, gastrointestinal bleeding, or are taking blood thinner medicines. Be careful if you are given pain medicines, narcotics, or medicine for muscle spasm. They can causedrowsiness, and can affect your coordination, reflexes, and judgment. Do not drive or operate heavyNova Specialty Hospitals. Follow-up care Follow up with your healthcare [...] or as directed by your healthcare provider [phone] [employer]. [address] [place] [address]88. All rights reserved. This information is not intended as a substitute for professional medical care. Always follow yourhealthcare professional's instructions. Follow Up Care 12/21/2023 23:12:28 With:MARIA ELENA MONTALVO MD Address: [address] [place] [id number] [phone] When:2-4 days [facility] 10-20-2024 Note ORIGINAL EXAMINATION: 2 XRAY [...] Sign Date: 12/22/2023 12:31:22 AM Ordering Provider: [facility]10-20-2024 Note ORIGINAL EXAMINATION: THREE XRAY VIEWS OF [...] Sign Date: 12/22/2023 12:26:35 AM Ordering Provider: [facility]10-18-2024 Telephone encounter Note* Telephone Encounter - Brandy Samuel - 12/20/2023 [...] No 9. Does this procedure require a speedboat driver? Yes If yes, has patient been notified that a speedboat driver is needed and must be present at check in? yes 10. Were the pre-procedure instructions explained and provided to the patient? Yes 11. Do you have a pacemaker? No 12. Do you have an internal stimulator of any kind? Lizbet Samuel 10-18-2024 Miscellaneous Notes* Telephone Encounter - Brandy Samuel [...] No 9. Does this procedure require a speedboat driver? Yes If yes, has patient been notified that a speedboat driver is needed and must be present at check in? yes 10. Were the pre-procedure instructions explained and provided to the patient? Yes 11. Do you have a pacemaker? No 12. Do you have an internal stimulator of any kind? No Brandy Samuel documented in this encounter10-18-2024 Emergency department Note * Eli Merino RN - 12/20/2023 3:36 AM EDT Pt BIBA c/c of L ankle pain and lower R sided back pain. Pt has hx of sciatica and has chronic backpain is suppose to have surgery on back soon at [facility]. pt also states she rolled L [...] was 20 years ago [facility] Work Phone: [phone] Emergency department Triage note* Eli Merino RN - 12/20/2023 3:36 AM EDT Pt BIBA c/c of L ankle pain and lower R sided back pain. Pt has hx of sciatica and has chronic backpain is suppose to have surgery on back soon at [facility]. pt also states she rolled L [...] pain- last seizure was [address] [facility] Work Phone: [phone] NoteHNO ID: [id number] Author: BAYRON FIELDS APRN.XUAN Service: ? Author Type: Nurse Practitioner Type: Progress Notes Filed: 12/19/2023 17:35 Note Text: This is a virtual visit using Fototwicshart Zoom Video Visit. It required patient-provider interaction for the medical decision making as documented below. I have communicated my name and active licensure. The patient's identity and physical location were verified at the time of this visit. Either the patient or their legal customer service representative teacher has been informed of the risks and benefits of -- and alternatives to -- treatment through a remote evaluation and consents to proceed with the evaluation remotely. [facility] Today's Date: 12/19/2023 Name: Db Doan : 1970 Purpose: Follow-up Patient Evaluation - This is an established patient, returning today for continued evaluation and management of the chief complaint noted below (Telemedicine) Chief complaint: lower back pain Pertinent Past Medical History: Anxiety, PTSD, depression, emphysema, migraine generalized convulsive epilepsy Pertinent Past Surgeries: None This is a virtual visit via Zoom, Phone and/or Fototwicshart. It required patient-provider interaction for the medical decision making as documented below. Patient understands that privacy cannot be guaranteed. Note: Examination was limited today due to this being a virtual/telemedicine encounter Plan at last visit: (Seen on 08/20/23 by Trisha Hodakievic, BARRATTE OPERATOR) 53 year old female presents with complaint(s) [...] Cramping, Shooting, Stabbing, Throbbin (more content not included)...[facility]10-17-2024 History of Present illness Narrative* Bayron Fields APRN.BARRATTE OPERATOR - 12/19/2023 4:07 PM EDT Images from the original note were not included. This is a virtual visit using Sharingforceom Video Visit. It required patient- provider interaction for the medical decision making as documented below. I have communicated my name and active licensure. The patient's identity and physical location wereverified at the time of this visit. Either the patient or their legal customer service representative teacher has been informed of the risks and benefits of -- and alternatives to -- treatment through a remote evaluation andconsents to proceed with the evaluation remotely. [facility] Today's Date: 12/19/2023 Name: Db Doan : 1970 Purpose: Follow-up Patient Evaluation - This is an established patient, returning today for continued evaluation and management of the chief complaint noted below (Telemedicine) Chief complaint: lower back pain Pertinent Past Medical History: Anxiety, PTSD, depression, emphysema, migraine generalized convulsive epilepsy Pertinent Past Surgeries: None This is a virtual visit via Zoom, Phone and/or Fototwicshart. It required patient- provider interaction for the [...] COMBINATION Questionnaire GREENLIGHT Comments next visit, today SODA COLUMN OPERATOR was a VV No question data found. [...] COMBINATION Questionnaire GREENLIGHT Comments next visit, today SODA COLUMN OPERATOR was a VV No question data found. Compliance: PDMP website checked and validated on 12/19/2023 by Bayron Fields APRN.BARRATTE OPERATOR All prescriptions have been APPROPRIATELY filled. No [...] L4/L5 and L5/S1. CT [facility] Order: [id number] Impression Unremarkable non-contrast CT of the lumbar [...] is seen. XR SACRUM/COCCYX 3V AP/LAT Order: [id number] Narrative EXAMINATION: XR SACRUM-COCCYX 3 VIEWS 08/06/2023 [...] are maintained. MACRO: None Images on Order [id number] XR SHOULDER LIMITED 2V AP/TRUE AP LEFT Order: [id number] Impression No acute abnormality. No significant arthritic [...] Narrative Patient Name: DB DOAN : 1970 Exam Date/Time: 06/12/2023 05:48 Procedure: XR SHOULDER 2+ VIEWS LEFT Ordering Provider: MCCARTHY DUSTIN Reason For Exam: left shoulder pain, fall CT PELVIS ORTHO WO IVCON Order: [id number] Impression No acute osseous abnormality in the [...] AM XR CERV INJURY 3V AP/LAT/ODON Order: [id number] Impression Only minimal anterior marginal osteophytosis. No [...] of C1 on C2. Images on Order [id number] Electrodiagnostic Study (EMG): None Recent Labs: Creatinine [...] guidance BILATERAL SIDES at L4-5 and L5-S1 [employer] Bi Developer Needed: Medial Branch Blocks - YES Anticoagulant - Hold Needed: N/A (Not currently on Anticoagulants), NO HOLD REQUIRED FOR THIS PROCEDURE Anticoagulant - Currently Taking: None Allergies (relevant): None Scheduling - Mobility (Can Patient independently transfer on/off an OR or Procedure table?): YES (May schedule at any location) Scheduling - Additional Info: Diagnostic Block - Needs a virtual visit with an SURIDNER within 7 days (preferably within 2-3 days) of the injection (x2 if MBB), Diagnostic Block - Needs 2 session scheduled, each 2 weeks apart Studies: None Functional Amish: NONE Referrals: No additional considerations at present [...] decision making from today's date. Bayron Fields APRN.BARRATTE OPERATOR Pain Management [facility] documented in this encounter10-16-2024 Telephone encounter Note * Telephone Encounter - SamuelBrandy cortes - 12/18/2023 1:53 PM EDT Spoke with the patient, who said Mychart technical support already spoke with her and made sure she's all set for her VV with Bayron on 12/19/23. Brandy Lizzie 10-16-2024 Miscellaneous Notes* Telephone Encounter - Brandy Samuel - 12/18/2023 1:53 PM EDT Spoke with the patient, who said Mychart technical support already spoke with her and [...] Patient stated that her appointment with Bayron Harrellmarlenikristen isn't showing up on her MyChart anymore after she did the pre visit questionnaire. I gave her the number toMyChart customer service but she said she needs to be seen so she wants to make sure she can be seen Was Patient Referred to [facility]/Seek Emergency Treatment (Y/N): n Did Patient Agree (Y/N): n/a Was An Attempt Made To Transfer The Patient To The Office (Y/N): n Were You Able To Reach Someone At The Office (Y/N): n.a If Yes - Patient Was Transferred To (Caregivers Name): n/a If No - Which [facility] Leadership Automotive Painter Helper Did You Speak With Regarding This Patient: n/a Was an appointment scheduled (Y/N): n Reason patient was requesting visit (RFV/signs and symptoms/diagnosis) : n/a Person calling if other than patient: self Return call to if other than patient: self Best contact number: [phone] Thank you, Alma Villar December 18, 2023 12:41 PM documented in this encounter10-16-2024 Telephone encounter Note * Telephone Encounter - Db Chavez - 12/18/2023 12:52 PM EDT ----- Message from Alma Cortes sent at 12/18/2023 12:41 PM EDT ----- Regarding: Spine Elizabeter Virtual Issue Spine Sindledecker Virtual Issue Patient: [...] visit questionnaire. I gave her the number Kwasi customer service but she said she needs to be seen so she wants to make sure she can be seen Was Patient Referred to [facility]/Seek Emergency Treatment (Y/N): n Did Patient Agree (Y/N): n/a Was An Attempt Made To Transfer The Patient To The Office (Y/N): n Were You Able To Reach Someone At The Office (Y/N): n.a If Yes - Patient Was Transferred To (Caregivers Name): n/a If No - Which [facility] Leadership Automotive Painter Helper Did You Speak With Regarding This Patient: n/a Was an appointment scheduled (Y/N): n Reason patient was requesting visit (RFV/signs and symptoms/diagnosis) : n/a Person calling if other than patient: self Return call to if other than patient: self Best contact number: [phone] Thank you, Amla Villar December 18, 2023 12:41 PM 10-01-2024 Hospital Discharge instructions* Discharge Instructions* Brandy Sanches [...] sent through Care Everywhere. * Back Pain (Montenegrin) * Low Back Pain: Exercises (Montenegrin) * Sciatica (Montenegrin) documented in this encounterB[facility] History and physical note Author Elizabeth Santos [facility] November 23, 2023 5:43pm Note Date/Time November 23, 2023 3:44pm DB DOAN Female [id number] Attending provider: [facility] [id number] Elizabeth Santos 1970 53 DOS: 11/23/23 Hx/Exam - History [...] gabapentin for it. She is currently under care and they are trying to refer [...] for Exam: PAIN FINDINGS: There are 5 pnv-bpp-ojxhcmt lumbar type vertebral bodies. Alignment and curvature [...] resident's findings and interpretation. Electronically signed By Rajat Delgado 11/23/2023 4:20:03 PM EST Workstation ID : [id number] REPORT SIGNATURE ON FILE Electronically Signed Date/Time: [...] 11/23/2023 4:24:06 PM EST Workstation ID : [id number] REPORT SIGNATURE ON FILE Electronically Signed Date/Time: 11/23/23 1624 Dictated Date/time: 11/23/23 1609 11/23/23 16:34 11/23/23 16:42 At this time patient instructed to continue her gabapentin and she can continue [id number]-ihmvpnp medications for pain. She is definitely showing drug-seeking behavior. She can follow-up with the clinic to discuss other alternatives to her pain management. She is up and ambulating here without any assistant clinical nurse manager without any signs of discomfort. Return precautions [...] - 2-3 Days <Electronically signed by Elizabeth Santos > Dictated By: MALIA Sims Dictated Date/Time:11/23/23 1444 Electronically Signed Date/Time: 11/23/23 1645 [facility] Work Phone: [phone] Emergency department Note* Gillian Mcnamara RN - 10/27/2023 2:15 AM EDT Went to give the patient her sulfamethoxazole-trimethoprim and the patient was not in her room. Thepatient left without her antibiotic or her discharge papers. [id number] Emergency department Note* Gillian Mcnamara RN - 10/27/2023 2:15 AM EDT Went to give the patient her sulfamethoxazole-trimethoprim and the patient was not in her room. Thepatient left without her antibiotic or her discharge papers. documented in this [id number] Hospital Discharge instructions* Discharge Instructions* Jose Villagomez [...] Care Everywhere. * Ingrown Toenail Discharge Instructions (Montenegrin) documented in this [id number] Hospital Discharge instructions* Discharge Instructions* Minna Darby PA - 10/18/2023 1:06 PM EDT Continue with muscle relaxer prednisone burst Lidoderm patch as previously pressure * Attachments The following attachments cannot be sent through Care Everywhere. * Back Pain (Montenegrin) * Sciatica (Montenegrin) * Headache (Montenegrin) documented in this encounterBON [facility]08-[facility] Emergency department Note* Mere Palomo RN - 10/17/2023 1:50 PM EDT Patient left without notifying staff. Mere Palomo RN 10/17/[address] [id number] Emergency department Note* Mere Palomo RN - 10/17/2023 1:50 PM EDT Patient left without notifying staff. Mere Palomo RN 10/17/23 1350 * KRYSTAL Santana CNP - 10/17/2023 1:20 PM EDT EMERGENCY DEPARTMENT ENCOUNTER Pt Name: Db Doan Birthdate 1970 Date of evaluation: 10/17/2023 ED Provider: KRYSTAL Santana CNP I have evaluated this patient on my own, per my scope of practice with an attending physician available for consultation. CHIEF COMPLAINT Chief Complaint Patient presents with Back Pain Recent epidural HISTORY OF PRESENT ILLNESS (Location/Symptom, Timing/Onset, Context/Setting, Quality, Duration, Modifying Factors, Severity) Note limiting factors. I wore appropriate PPE for the entirety of this encounter. HPI Db Spahn is a 53 y.o. who presents to the emergency department with chief complaint of back pain, patient complains of low back pain that goes to the right and left sciatic region. States it alsogoes up her back to her right shoulder. She was seen at [place] emergency room today, I did review the notes labs and CAT scan from there she had normal labs, no leukocytosis normal CT abdomen pelvis. She had got into an argument with the provider there about prescribing opiate medication. She isalleging that someone has stolen her identity and is filling prescriptions under the name Ligia Benitez which was her prior name however the prescriptions are clearly filled under her name Ligia Doan and is here requesting opiate pain medication to help deal with her chronic pain. 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 Limitations to history: None Outside historians: None REVIEW OF SYSTEMS Review of Systems Constitutional: Negative for activity change, appetite change, chills and fever. HENT: Negative for congestion, nosebleeds, sinus pain and trouble swallowing. Eyes: Negative for pain and visual disturbance. Respiratory: Negative for cough, chest tightness and shortness of breath. Cardiovascular: Negative for chest pain. Gastrointestinal: Negative for abdominal pain, diarrhea, nausea and vomiting. Genitourinary: Negative for dysuria, hematuria, pelvic pain, vaginal bleeding, vaginal discharge and vaginal pain. Musculoskeletal: Positive for arthralgias, back pain and myalgias. Skin: Negative for rash and wound. Neurological: Negative for syncope, weakness, light-headedness and headaches. Hematological: Negative for adenopathy. Psychiatric/Behavioral: Negative for agitation and confusion. All other systems reviewed and are negative. Pertinent positives and negatives as per HPI. PAST MEDICAL HISTORY Past Medical History: Diagnosis Date H/O section Incomplete tear of left rotator cuff Sciatica Seizures (HCC) Spinal stenosis SURGICAL HISTORY Past Surgical History: Procedure Laterality Date HERNIA REPAIR CURRENT MEDICATIONS Previous Medications DULOXETINE (CYMBALTA) [address] CAPSULE Take 60 mg by mouth daily. Do not crush or chew. LAMOTRIGINE (LAMICTAL) 25 MG TABLET Take 150 mg by mouth daily. METHOCARBAMOL (ROBAXIN) 500 MG TABLET Take 1 tablet (500 mg) by mouth 2 times daily for 10 days. ALLERGIES Patient has no known allergies. FAMILY HISTORY No family history on file. SOCIAL HISTORY Social History Socioeconomic History Marital status: Single Tobacco Use Smoking status: Some Days Types: Cigarettes Smokeless tobacco: Never Vaping Use Vaping status: Never Used Substance and Sexual Activity Alcohol use: Never Drug use: Never Social Determinants of Health Financial Resource Strain: Low Risk (11/01/2022) Received from [facility] [employer] [facility] Overall Financial Resource Strain (CARDIA) Difficulty of Paying Living Expenses: Not very hard Food Insecurity: No Food Insecurity (11/01/2022) Re[facility] Hunger Vital Sign Worried About Running Out of Food in the Last Year: Never true Ran Out of Food in the Last Year: Never true Transportation Needs: Unknown (11/01/2022) [facility] PRAPARE - Transportation Lack of Transportation (Non-Medical): No SCREENINGS PHYSICAL EXAM ED Triage Vitals [10/17/23 1323] Temp Heart Rate Resp BP 36.7 C (98 F) 109 20 (!) 154/103 SpO2 Temp Source Heart Rate Source Patient Position 97 % Temporal Monitor -- BP Location FiO2 (%) -- -- Physical Exam Vitals and nursing note reviewed. Constitutional: General: She is not in acute distress. Appearance: Normal appearance. She is normal weight. She is not ill-appearing or toxic-appearing. HENT: Head: Normocephalic and atraumatic. Right Ear: External ear normal. Left Ear: External ear normal. Mouth/Throat: Mouth: Mucous membranes are moist. Pharynx: Oropharynx is clear. Eyes: Extraocular Movements: Extraocular movements intact. Conjunctiva/sclera: Conjunctivae normal. Pupils: Pupils are equal, round, and reactive to light. Cardiovascular: Rate and Rhythm: Regular rhythm. Tachycardia present. Pulses: Normal pulses. Heart sounds: Normal heart sounds. No murmur heard. Pulmonary: Effort: Pulmonary effort is normal. No respiratory distress. Breath sounds: Normal breath sounds. No stridor. No wheezing or rhonchi. Abdominal: Comments: The abdomen is soft, nondistended and nontender. There is no rebound tenderness or guarding. Bowel sounds are normal. Musculoskeletal: Cervical back: Normal range of motion and neck supple. No rigidity or tenderness. Comments: There is no tenderness to the cervical spine. There is 5 out of 5 strength with shoulder flexion, elbow flexion, elbow extension. There is 5 out of 5 strength with flexion and extension of the wrist and abduction and abduction of the fingers. Radial pulses are 2+ and symmetric, there are no temperature or sensory deficits to the upper extremities. There is no pain on palpation to the spine. Straight leg raise is negative on the left and right. There is no weakness noted with adduction of either thigh. There is no weakness noted hip flexion, knee extension, knee flexion. There is no weakness noted to dorsiflexion of the foot, dorsiflexion of the great toe or plantarflexion of the foot. Patellar reflexes are 2+ bilaterally. DP pulses are 2+.There are no sensory deficits to the lower extremities, no saddle anesthesia. Sensation is intact to the groin, perianal sensation is intact. Lymphadenopathy: Cervical: No cervical adenopathy. Skin: General: Skin is warm and dry. Coloration: Skin is not jaundiced or pale. Findings: No bruising or erythema. Neurological: General: No focal deficit present. Mental Status: She is alert and oriented to person, place, and time. Mental status is at baseline. Cranial Nerves: No cranial nerve deficit. Sensory: No sensory deficit. Motor: No weakness. Coordination: Coordination normal. Psychiatric: Mood and Affect: Mood normal. DIAGNOSTIC RESULTS Procedures/EKG: EKG was reviewed by myself. Physician EKG interpretation can be found in [facility] RADIOLOGY (Per Emergency Physician): Interpretation per the Radiologist below, if available at the time of this note: No orders to display ED BEDSIDE ULTRASOUND: Performed by ED Physician - none LABS: Labs Reviewed - No data to display All other labs were within normal range or not returned as of this dictation. EMERGENCY DEPARTMENT COURSE and DIFFERENTIAL DIAGNOSIS/MDM: Vitals: Vitals: 10/17/23 1322 10/17/23 1323 BP: (!) 154/103 Pulse: 109 Resp: 20 Temp: 36.7 C (98 F) TempSrc: Temporal SpO2: 97% Weight: 63.5 kg (140 lb) Height: 1.702 m (5' 7) Diagnoses as of 10/17/23 1349 Acute exacerbation of chronic low back pain The patient presented with chief complaint of with chief complaint of back pain, patient complains of low back pain that goes to the right and left sciatic region. States it also goes up her back to her right shoulder. She was seen at [place] emergency room today, I did review the notes labs and CAT scan from there she had normal labs, no leukocytosis normal CT abdomen pelvis. She had got into an argument with the provider there about prescribing opiate medication. She is alleging that someone has stolen her identity and is filling prescriptions under the name Ligia Benitez which was her prior name however the prescriptions are clearly filled under her name Ligia Doan and is here requesting opiate pain medication to help deal with her chronic pain.. The differential diagnosis associated with this patient's presentation includes just revision of chronic pain. Our workup consisted of ordering/reviewing: No diagnostic testing. I also reviewed external records from reviewed all laboratory studies and imaging done at [facility] system today. The patient will be discharged home she repeatedly asked for opiate pain medication I told her I would be happy to treat her with anything for her pain that is chronic but is not an opiate pain medication I recommended that she follow-up with the provider that ordered the epidural and did the epidural and she was discharged. Patient is in agreement with this plan. Medications - No data to display REVAL: CRITICAL CARE TIME None CONSULTS: None PROCEDURES: Unless otherwise noted below, none Procedures Patients symptoms are consistent with sepsis, severe sepsis, or septic shock (If yes use .sepsiscoremeasure): no FINAL IMPRESSION 1. Acute exacerbation of chronic low back pain DISPOSITION Discharge 10/17/2023 01:49:02 PM PATIENT REFERRED TO: No follow-up provider specified. DISCHARGE MEDICATIONS: New Prescriptions No medications on file (Comment: Please note this report has been produced using speech recognition software and may contain errors related to that system including errors in grammar, punctuation, and spelling, as well as words and phrases that may be inappropriate. If there are any questions or concerns please feel freeto contact the dictating provider for clarification.) KRYSTAL Santana CNP (electronically signed) Emergency Medicine Provider KRYSTAL Santana CNP 10/17/23 1352 * Felipa Arzola RN - 10/17/2023 1:20 PM EDT Pt states she's having increased pain and pressure in back that radiates up into her shoulder aftera epidural this week also endorses diarrhea/nausea x 2 months documented in this [facility]08[facility]15-2024 Emergency department Triage note* Felipa Arzola RN - 10/17/2023 1:20 PM EDT Pt states she's having increased pain and pressure in back that radiates up into her shoulder aftera epidural this week also endorses diarrhea/nausea [facility] [address] [id number] Emergency department Note* KRYSTAL Santana CNP - 10/17/2023 1:20 PM EDT EMERGENCY DEPARTMENT ENCOUNTER Pt Name: Db Doan Birthdate 1970 Date of evaluation: 10/17/2023 ED Provider: KRYSTAL Santana CNP I have evaluated this patient on my own, per my scope of practice with an attending physician available for consultation. CHIEF COMPLAINT Chief Complaint Patient presents with Back Pain Recent epidural HISTORY OF PRESENT ILLNESS (Location/Symptom, Timing/Onset, Context/Setting, Quality, Duration, Modifying Factors, Severity) Note limiting factors. I wore appropriate PPE for the entirety of this encounter. HPI Db Doan is a 53 y.o. who presents to the emergency department with chief complaint of back pain, patient complains of low back pain that goes to the right and left sciatic region. States it alsogoes up her back to her right shoulder. She was seen at [place] emergency room today, I did review the notes labs and CAT scan from there she had normal labs, no leukocytosis normal CT abdomen pelvis. She had got into an argument with the provider there about prescribing opiate medication. She isalleging that someone has stolen her identity and is filling prescriptions under the name Ligia Benitez which was her prior name however the prescriptions are clearly filled under her name Ligia Doan and is here requesting opiate pain medication to help deal with her chronic pain. 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 Limitations to history: None Outside historians: None REVIEW OF SYSTEMS Review of Systems Constitutional: Negative for activity change, appetite change, chills and fever. HENT: Negative for congestion, nosebleeds, sinus pain and trouble swallowing. Eyes: Negative for pain and visual disturbance. Respiratory: Negative for cough, chest tightness and shortness of breath. Cardiovascular: Negative for chest pain. Gastrointestinal: Negative for abdominal pain, diarrhea, nausea and vomiting. Genitourinary: Negative for dysuria, hematuria, pelvic pain, vaginal bleeding, vaginal discharge and vaginal pain. Musculoskeletal: Positive for arthralgias, back pain and myalgias. Skin: Negative for rash and wound. Neurological: Negative for syncope, weakness, light-headedness and headaches. Hematological: Negative for adenopathy. Psychiatric/Behavioral: Negative for agitation and confusion. All other systems reviewed and are negative. Pertinent positives and negatives as per HPI. PAST MEDICAL HISTORY Past Medical History: Diagnosis Date H/O section Incomplete tear of left rotator cuff Sciatica Seizures (HCC) Spinal stenosis SURGICAL HISTORY Past Surgical History: Procedure Laterality Date HERNIA REPAIR CURRENT MEDICATIONS Previous Medications DULOXETINE (CYMBALTA) [address] CAPSULE Take 60 mg by mouth daily. Do not crush or chew. LAMOTRIGINE (LAMICTAL) 25 MG TABLET Take 150 mg by mouth daily. METHOCARBAMOL (ROBAXIN) 500 MG TABLET Take 1 tablet (500 mg) by mouth 2 times daily for 10 days. ALLERGIES Patient has no known allergies. FAMILY HISTORY No family history on file. SOCIAL HISTORY Social History Socioeconomic History Marital status: Single Tobacco Use Smoking status: Some Days Types: Cigarettes Smokeless tobacco: Never Vaping Use Vaping status: Never Used Substance and Sexual Activity Alcohol use: Never Drug use: Never Social Determinants of Health Financial Resource Strain: Low Risk (11/01/2022) Received from [facility] [employer] [facility] Overall Financial Resource Strain (CARDIA) Difficulty of Paying Living Expenses: Not very hard Food Insecurity: No Food Insecurity (11/01/2022) Received from [facility] Hunger Vital Sign Worried About Running Out of Food in the Last Year: Never true Ran Out of Food in the Last Year: Never true Transportation Needs: Unknown (11/01/2022) Received from [facility] PRAPARE - Transportation Lack of Transportation (Non-Medical): No SCREENINGS PHYSICAL EXAM ED Triage Vitals [10/17/23 1323] Temp Heart Rate Resp BP 36.7 C (98 F) 109 20 (!) 154/103 SpO2 Temp Source Heart Rate Source Patient Position 97 % Temporal Monitor -- BP Location FiO2 (%) -- -- Physical Exam Vitals and nursing note reviewed. Constitutional: General: She is not in acute distress. Appearance: Normal appearance. She is normal weight. She is not ill-appearing or toxic-appearing. HENT: Head: Normocephalic and atraumatic. Right Ear: External ear normal. Left Ear: External ear normal. Mouth/Throat: Mouth: Mucous membranes are moist. Pharynx: Oropharynx is clear. Eyes: Extraocular Movements: Extraocular movements intact. Conjunctiva/sclera: Conjunctivae normal. Pupils: Pupils are equal, round, and reactive to light. Cardiovascular: Rate and Rhythm: Regular rhythm. Tachycardia present. Pulses: Normal pulses. Heart sounds: Normal heart sounds. No murmur heard. Pulmonary: Effort: Pulmonary effort is normal. No respiratory distress. Breath sounds: Normal breath sounds. No stridor. No wheezing or rhonchi. Abdominal: Comments: The abdomen is soft, nondistended and nontender. There is no rebound tenderness or guarding. Bowel sounds are normal. Musculoskeletal: Cervical back: Normal range of motion and neck supple. No rigidity or tenderness. Comments: There is no tenderness to the cervical spine. There is 5 out of 5 strength with shoulder flexion, elbow flexion, elbow extension. There is 5 out of 5 strength with flexion and extension of the wrist and abduction and abduction of the fingers. Radial pulses are 2+ and symmetric, there are no temperature or sensory deficits to the upper extremities. There is no pain on palpation to the spine. Straight leg raise is negative on the left and right. There is no weakness noted with adduction of either thigh. There is no weakness noted hip flexion, knee extension, knee flexion. There is no weakness noted to dorsiflexion of the foot, dorsiflexion of the great toe or plantarflexion of the foot. Patellar reflexes are 2+ bilaterally. DP pulses are 2+.There are no sensory deficits to the lower extremities, no saddle anesthesia. Sensation is intact to the groin, perianal sensation is intact. Lymphadenopathy: Cervical: No cervical adenopathy. Skin: General: Skin is warm and dry. Coloration: Skin is not jaundiced or pale. Findings: No bruising or erythema. Neurological: General: No focal deficit present. Mental Status: She is alert and oriented to person, place, and time. Mental status is at baseline. Cranial Nerves: No cranial nerve deficit. Sensory: No sensory deficit. Motor: No weakness. Coordination: Coordination normal. Psychiatric: Mood and Affect: Mood normal. DIAGNOSTIC RESULTS Procedures/EKG: EKG was reviewed by myself. Physician [facility] RAD[facility]OLOGY (Per Emergency Physician): Interpretation per the Radiologist below, if available at the time of this note: No orders to display ED BEDSIDE ULTRASOUND: Performed by ED Physician - none LABS: Labs Reviewed - No data to display All other labs were within normal range or not returned as of this dictation. EMERGENCY DEPARTMENT COURSE and DIFFERENTIAL DIAGNOSIS/MDM: Vitals: Vitals: 10/17/23 1322 10/17/23 1323 BP: (!) 154/103 Pulse: 109 Resp: 20 Temp: 36.7 C (98 F) TempSrc: Temporal SpO2: 97% Weight: 63.5 kg (140 lb) Height: 1.702 m (5' 7) Diagnoses as of 10/17/23 1349 Acute exacerbation of chronic low back pain The patient presented with chief complaint of with chief complaint of back pain, patient complains of low back pain that goes to the right and left sciatic region. States it also goes up her back to her right shoulder. She was seen at [place] emergency room today, I did review the notes labs and CAT scan from there she had normal labs, no leukocytosis normal CT abdomen pelvis. She had got into an argument with the provider there about prescribing opiate medication. She is alleging that someone has stolen her identity and is filling prescriptions under the name Ligia Benitez which was her prior name however the prescriptions are clearly filled under her name Ligia Doan and is here requesting opiate pain medication to help deal with her chronic pain.. The differential diagnosis associated with this patient's presentation includes just revision of chronic pain. Our workup consisted of ordering/reviewing: No diagnostic testing. I also reviewed external records from reviewed all laboratory studies and imaging done at [facility] today. The patient will be discharged home she repeatedly asked for opiate pain medication I told her I would be happy to treat her with anything for her pain that is chronic but is not an opiate pain medication I recommended that she follow-up with the provider that ordered the epidural and did the epidural and she was discharged. Patient is in agreement with this plan. Medications - No data to display REVAL: CRITICAL CARE TIME None CONSULTS: None PROCEDURES: Unless otherwise noted below, none Procedures Patients symptoms are consistent with sepsis, severe sepsis, or septic shock (If yes use .sepsiscoremeasure): no FINAL IMPRESSION 1. Acute exacerbation of chronic low back pain DISPOSITION Discharge 10/17/2023 01:49:02 PM PATIENT REFERRED TO: No follow-up provider specified. DISCHARGE MEDICATIONS: New Prescriptions No medications on file (Comment: Please note this report has been produced using speech recognition software and may contain errors related to that system including errors in grammar, punctuation, and spelling, as well as words and phrases that may be inappropriate. If there are any questions or concerns please feel freeto contact the dictating provider for clarification.) KRYSTAL Santana CNP (electronically signed) Emergency Medicine Provider KRYSTAL Santana CNP 10/17/[address] [id number] Telephone encounter Note* Telephone Encounter - Jocelyne [...] clinically relevant. Jocelyne Albert III, MD, MBA Work Phone: 1(105) 112-311408-08-2024 Miscellaneous Notes* Telephone Encounter - Jocelyne Albert [...] advise. Minna Sandoval LPN documented in this encounter08-08-2024 Telephone encounter Note * Telephone Encounter - [...] full effect. Please advise. Minna Sandoval LPN 08-06-2024 Nurse Note* Ny Lea LPN - 10/08/2023 [...] ambulatory method. Patient left in good condition. 08-06-2024 Nurse Note* Ny Lea LPN - 10/08/2023 [...] tablePatient s procedure was performed in an [facility] Procedure room. Pause completed at each level [...] Abraham LPN - 10/08/2023 12:40 PM EDT [employer]'s Name: ISIAH Are you on a blood [...] to receive one? NO documented in this encounter08-06-2024 History of Present illness Narrative* Jocelyne Albert MD - 10/08/2023 1:00 PM EDT [facility] Date: 10/08/2023 Patient name: Db Doan [...] or double vision) Respiratory: Negative (No Cough, Rcezgkoml-[id number], Dyspnea on exertion, wheezing) Cardiovascular: Negative (No [...] appropriate Assessment and Plan: As noted above [facility] protocol documentation / Pre-Procedure Checklist: Consent: Obtained [...] instructions was offered to the patient. Jocelyne Ablert MD, MBA Pain Management [facility] * Leti Abraham LPN - 10/08/2023 [...] The patient is nervous/anxious. documented in this encounter08-06-2024 NoteHNO ID: [id number] Author: JOCELYNE ALBERT MD Service: ? Author Type: Physician Type: Progress Notes Filed: 10/08/2023 13:51 Note Text: [facility] Date: 10/08/2023 Patient name: Db Doan [...] procedure: as per nursing report HPI: Db oDan is an 53 year old FEMALE who presents today, in pain, for the procedure noted above. Review of Systems: Pertinent Positives: MSK: pain in the region being treated Neuro: weakness or numbness in the region being treated (unless otherwise noted) Skin: Negative (No itching) Eyes: Negative (No blurred or double vision) Respiratory: Negative (No Cough, Fjngdvyou-bn-yasyyv, Dyspnea on exertion, wheezing) Cardiovascular: Negative (No [...] appropriate Assessment and Plan: As noted above [facility] protocol documentation / Pre-Procedure Checklist: Consent: Obtained [...] anticoagulants and allergies Procedure: (more content not included)...[facility]08-06-2024 Nurse Note* Minna Sandoval LPN - 10/08/2023 12:52 PM EDT Procedure to be performed: Caudal Epidural Steroid Injection Patient was walked from exam room to procedure room and assisted onto the procedure tablePatient s procedure was performed in an [facility] Procedure room. Pause completed at each level [...] allergies Procedure Start: 1306 Procedure End: 1314 08-06-2024 Instructions* Patient Instructions* Ny Lea LPN - [...] emergency care and why. documented in this encounter08-06-2024 NoteHNO ID: [id number] Author: LETI ABRAHAM LPN Service: ? Author [...] Negative for suicidal ideas. The patient is nervous/anxious.[facility]08-06-2024 Nurse Note* Leti Abraham LPN - 10/08/2023 12:40 PM EDT [employer]'s Name: ISIAH Are you on a blood [...] are you scheduled to receive one? 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 Electronically signed By [employer] 09/30/2023 3:17:49 PM EST 09/30/23 15:37 LUMBAR [...] of acute posttraumatic spondylolysis. Electronically signed By [employer] 09/30/2023 3:33:35 PM EST Is discharged home. [...] Q12HR #4 pad Transmission Status: Pending to [facility] #[id number] Methylprednisolone [Medrol Dosepak] 4 mg PO ASDIR #1 tab Transmission Status: Pending to [facility] #[id number] TiZANidine HCL [Zanaflex] 4 mg PO TID PRN PRN #20 tab PRN Reason: Transmission Status: Pending to [facility] #[id number] Referrals: provider (Unknown),Unlisted [Primary Care Provider] - 2-3 Days <Electronically signed by Shakeel Stephens > Dictated By: MALIA ZIMMERMAN Dictated Date/Time:09/30/23 1429 Electronically Signed Date/Time: 09/30/23 1539 [facility] Work Phone: 1(172) 669-413807-28-2024 Hospital Discharge instructions* Discharge Instructions* Ron Nuñez [...] sent through Care Everywhere. * Metatarsal Fracture (Montenegrin) * Back Pain ([place]gr[place]) [facility] NoteHNO ID: [id number] Author: BELLO LIM DC Service: ? Author [...] Time out: 140 Dr. Bello Lim, [facility]07-18-2024 History of Present illness Narrative* Bello Lim, [place] - 09/19/2023 12:37 PM EDT Chiropractor Progress/Procedure [...] pain better? Chiro care Current pain level? 10 How low has your pain level been on the pain scale since your last visit? /10 How high has your pain level been on the pain scale since your last visit? 10. Since your last visit with Dr. Lim [...] Dr. 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 [id number] Emergency department Note* DEVORAH Fuentes - 09/15/2023 11:49 AM EDT Pt states she took flexeril 45min PARARESCUE MANAGER DEVORAH Fuentes 09/15/23 1149 * Karen Rees MD - 09/15/2023 11:45 AM EDT [facility] ED EMERGENCY DEPARTMENT ENCOUNTER Pt Name: Db Doan Birthdate 1970 Date of evaluation: 09/15/2023 Provider: Karen Rees MD CHIEF COMPLAINT Chief Complaint Patient presents with Fall Pt presents to ED for L hip/back pain after a fall on Saturday. Pt states she has sciatica and it hasbeen worse since fall. PT denies incontinence, LOC, thinners HISTORY OF PRESENT ILLNESS (Location/Symptom, Timing/Onset, Context/Setting, Quality, Duration, Modifying Factors, Severity) Note limiting factors. I wore a surgical mask for the entirety of this encounter. Db Doan is a 53 y.o. female with a past medical history of sciatica presenting with left buttock pain after a fall on Saturday. She has no midline tenderness or pain, pain is on her left buttock and radiates down her left leg is consistent with her prior sciatica pain. She denies any saddle anesthesia, urinary or bowel incontinence, and currently denies IV drug abuse. She states that she wanted to come here to get a prescription filled so that she could block a archana that she knew from her childhood who is currently getting her prescriptions under her name, and that [facility]. Denies any difficulty walking. Patient denies any historyof IV drug use, personal history of cancer, fevers, saddle anesthesia, urinary or bowel incontinence, lower extremity weakness. Past Medical history reviewed. REVIEW OF SYSTEMS Negative except for above HPI Review of Systems PAST MEDICAL HISTORY Past Medical History: Diagnosis Date H/O section Incomplete tear of left rotator cuff Sciatica Seizures (HCC) Spinal stenosis SURGICAL HISTORY Past Surgical History: Procedure Laterality Date HERNIA REPAIR CURRENT MEDICATIONS Previous Medications DULOXETINE (CYMBALTA) [address] CAPSULE Take 60 mg by mouth daily. Do not crush or chew. LAMOTRIGINE (LAMICTAL) 25 MG TABLET Take 150 mg by mouth daily. METHOCARBAMOL (ROBAXIN) 500 MG TABLET Take 1 tablet (500 mg) by mouth 2 times daily for 10 days. ALLERGIES Patient has no known allergies. FAMILY HISTORY No family history on file. SOCIAL HISTORY Social History Socioeconomic History Marital status: Single Tobacco Use Smoking status: Some Days Types: Cigarettes Smokeless tobacco: Never Vaping Use Vaping status: Never Used Substance and Sexual Activity Alcohol use: Never Drug use: Never Social Determinants of Health Financial Resource Strain: Low Risk (11/01/2022) Received from [facility] Overall Financial Resource Strain (CARDIA) Difficulty of Paying Living Expenses: Not very hard Food Insecurity: No Food Insecurity (11/01/2022) Received from [facility] Hunger Vital Sign Worried About Running Out of Food in the Last Year: Never true Ran Out of Food in the Last Year: Never true Transportation Needs: Unknown (11/01/2022) Received from [facility] PRAPARE - Transportation Lack of Transportation (Non-Medical): No SCREENINGS PHYSICAL EXAM (up to 7 for level 4, 8 or more for level 5) @EDTRIAGEVSS@ Physical Exam Vitals and nursing note reviewed. Constitutional: General: She is not in acute distress. Appearance: Normal appearance. HENT: Head: Normocephalic and atraumatic. Nose: Nose normal. Eyes: Conjunctiva/sclera: Conjunctivae normal. Cardiovascular: Rate and Rhythm: Normal rate. Pulmonary: Effort: Pulmonary effort is normal. No respiratory distress. Abdominal: General: Abdomen is flat. There is no distension. Musculoskeletal: Comments: Ambulates without difficulty or apparent pain or even a limp. Walks normally. When palpating, she has absolutely no tenderness to palpation, sits upright in a chair and is tearful when she talks about this, but she is clearly well-appearing and there are no focal neurologic deficits, her tenderness and discomfort is not in the midline. Skin: General: Skin is warm and dry. Capillary Refill: Capillary refill takes less than 2 seconds. Neurological: Mental Status: She is alert. Psychiatric: Behavior: Behavior normal. EMERGENCY DEPARTMENT COURSE and DIFFERENTIAL DIAGNOSIS/MDM: Vitals: Vitals: 09/15/23 1149 BP: 116/84 Pulse: 97 Resp: 16 Temp: 36.6 C (97.8 F) TempSrc: Temporal SpO2: 97% Medications ketorolac (Toradol) injection 30 mg (has no administration in time range) Medical Decision Making Db Doan is a 53 y.o. female with a past medical history of sciatica presenting with left buttock pain after a fall on Saturday. She has no midline tenderness or pain, pain is on her left buttock and radiates down her left leg is consistent with her prior sciatica pain. She denies any saddle anesthesia, urinary or bowel incontinence, and currently denies IV drug abuse. She states that she wanted to come here to get a prescription filled so that she could block a archana that she knew from her childhood who is currently getting her prescriptions under her name, and that [facility] and get this [facility]. Denies any difficulty walking. Patient denies any historyof IV drug use, personal history of cancer, fevers, saddle anesthesia, urinary or bowel incontinence, lower extremity weakness. During her interview I was interrupted for a phone call and I had to leave the triage area to answer it. On my way back, upon reaching for the door to enter, I could see through the window patient had walked up almost to the door looking around the corner as of looking for me ambulating with absolutely no distress. She saw me through the window and made an abrupt turn and walk back to her seat inno distress. On physical exam otherwise when palpating, she has absolutely no tenderness to palpation, sits upright in a chair and is tearful when she talks about this, but she is clearly well-appearing and there are no focal neurologic deficits, her tenderness and discomfort is not in the midline,and with the injury being on Saturday, have no clinical suspicion for cauda equina or other serious spinal cord issue based on her presentation to prior ED with negative x- ray, lack of red flag signs and overall excellent clinical appearance. From Care everywhere review of external ED visit earlier this mornin During patient's interview I did have some [...] 48 hours pain at various locations from [facility] to [facility] with multiple hospitals on the route in [...] she will get them filled tomorrow. [CJ] I agree with the above assessment based on my own independent evaluation and interview with the patient. Patient requested Toradol prior to discharge. She starts with [facility] pain management on Saturday and believes that she can make it there without a prescription. Problems Addressed: Fall, initial encounter: complicated acute illness or injury Sciatica of left side: complicated acute illness or injury Amount and/or Complexity of Data Reviewed External Data Reviewed: notes. Details: I reviewed various ED notes from various, frequent presentations to emergency departments locally in the area, particularly the ED note from today in care everywhere dated 09/15/2023. This note corroborates her story to me today that she is not having any red flag signs, but they were also very concerned about drug-seeking behavior because of what they are reviewed the PDMP she has been visiting various hospitals between her home address and [place], various hospitals along the way, seeking narcotic pain medication has had multiple prescriptions filled. I also reviewed her PDMP in which she has gone through various locations and prescribers to get small doses of narcotics between August and September. Total 34 prescribers. Risk Prescription drug management. . All independent interpretations of EKGs are documented in [facility]. Diagnoses as of 09/15/23 1213 Fall, initial encounter Sciatica of left side CONSULTS: None PROCEDURES: Unless otherwise noted below, none Procedures FINAL IMPRESSION 1. Fall, initial encounter 2. Sciatica of left side DISPOSITION/PLAN DISPOSITION Discharge 09/15/2023 12:06:02 PM PATIENT REFERRED TO: No follow-up provider specified. DISCHARGE MEDICATIONS: New Prescriptions No medications on file @[facility]([id number]:LAST:1)@ (Please note: Portions of this note were completed with a voice recognition program. Efforts were made to edit the dictations but occasionally words and phrases are mis-transcribed.) Form [id number] Karen Rees MD (electronically signed) Emergency Medicine Provider Karen Rees MD 09/15/231212 documented in this [facility]07-14-2024 Physician Emergency department Note* Karen Rees MD - 09/15/2023 11:45 AM EDT [facility] ED EMERGENCY DEPARTMENT ENCOUNTER Pt Name: Db Doan Birthdate 1970 Date of evaluation: 09/15/2023 Provider: Karen Rees MD CHIEF COMPLAINT Chief Complaint Patient presents with Fall Pt presents to ED for L hip/back pain after a fall on Saturday. Pt states she has sciatica and it hasbeen worse since fall. PT denies incontinence, LOC, thinners HISTORY OF PRESENT ILLNESS (Location/Symptom, Timing/Onset, Context/Setting, Quality, Duration, Modifying Factors, Severity) Note limiting factors. I wore a surgical mask for the entirety of this encounter. Db Doan is a 53 y.o. female with a past medical history of sciatica presenting with left buttock pain after a fall on Saturday. She has no midline tenderness or pain, pain is on her left buttock and radiates down her left leg is consistent with her prior sciatica pain. She denies any saddle anesthesia, urinary or bowel incontinence, and currently denies IV drug abuse. She states that she wanted to come here to get a prescription filled so that she could block a archana that she knew from her childhood who is currently getting her prescriptions under her name, and that she [facility] and get this [facility]. Denies any difficulty walking. Patient denies any historyof IV drug use, personal history of cancer, fevers, saddle anesthesia, urinary or bowel incontinence, lower extremity weakness. Past Medical history reviewed. REVIEW OF SYSTEMS Negative except for above HPI Review of Systems PAST MEDICAL HISTORY Past Medical History: Diagnosis Date H/O section Incomplete tear of left rotator cuff Sciatica Seizures (HCC) Spinal stenosis SURGICAL HISTORY Past Surgical History: Procedure Laterality Date HERNIA REPAIR CURRENT MEDICATIONS Previous Medications DULOXETINE (CYMBALTA) [address] CAPSULE Take 60 mg by mouth daily. Do not crush or chew. LAMOTRIGINE (LAMICTAL) 25 MG TABLET Take 150 mg by mouth daily. METHOCARBAMOL (ROBAXIN) 500 MG TABLET Take 1 tablet (500 mg) by mouth 2 times daily for 10 days. ALLERGIES Patient has no known allergies. FAMILY HISTORY No family history on file. SOCIAL HISTORY Social History Socioeconomic History Marital status: Single Tobacco Use Smoking status: Some Days Types: Cigarettes Smokeless tobacco: Never Vaping Use Vaping status: Never Used Substance and Sexual Activity Alcohol use: Never Drug use: Never Social Determinants of Health Financial Resource Strain: Low Risk (11/01/2022) Re[facility] from [facility] Overall Financial Resource Strain (CARDIA) Difficulty of Paying Living Expenses: Not very hard Food Insecurity: No Food Insecurity (11/01/2022) Received from [facility] Hunger Vital Sign Worried About Running Out of Food in the Last Year: Never true Ran Out of Food in the Last Year: Never true Transportation Needs: Unknown (11/01/2022) Received from [facility] PRAPARE - Transportation Lack of Transportation (Non-Medical): No SCREENINGS PHYSICAL EXAM (up to 7 for level 4, 8 or more for level 5) @EDTRIAGRADYVSS@ Physical Exam Vitals and nursing note reviewed. Constitutional: General: She is not in acute distress. Appearance: Normal appearance. HENT: Head: Normocephalic and atraumatic. Nose: Nose normal. Eyes: Conjunctiva/sclera: Conjunctivae normal. Cardiovascular: Rate and Rhythm: Normal rate. Pulmonary: Effort: Pulmonary effort is normal. No respiratory distress. Abdominal: General: Abdomen is flat. There is no distension. Musculoskeletal: Comments: Ambulates without difficulty or apparent pain or even a limp. Walks normally. When palpating, she has absolutely no tenderness to palpation, sits upright in a chair and is tearful when she talks about this, but she is clearly well-appearing and there are no focal neurologic deficits, her tenderness and discomfort is not in the midline. Skin: General: Skin is warm and dry. Capillary Refill: Capillary refill takes less than 2 seconds. Neurological: Mental Status: She is alert. Psychiatric: Behavior: Behavior normal. EMERGENCY DEPARTMENT COURSE and DIFFERENTIAL DIAGNOSIS/MDM: Vitals: Vitals: 09/15/23 1149 BP: 116/84 Pulse: 97 Resp: 16 Temp: 36.6 C (97.8 F) TempSrc: Temporal SpO2: 97% Medications ketorolac (Toradol) injection 30 mg (has no administration in time range) Medical Decision Making Db Doan is a 53 y.o. female with a past medical history of sciatica presenting with left buttock pain after a fall on Saturday. She has no midline tenderness or pain, pain is on her left buttock and radiates down her left leg is consistent with her prior sciatica pain. She denies any saddle anesthesia, urinary or bowel incontinence, and currently denies IV drug abuse. She states that she wanted to come here to get a prescription filled so that she could block a archana that she knew from her childhood who is currently getting her prescriptions under her name, and that she is [facility] and get this [facility]. Denies any difficulty walking. Patient denies any historyof IV drug use, personal history of cancer, fevers, saddle anesthesia, urinary or bowel incontinence, lower extremity weakness. During her interview I was interrupted for a phone call and I had to leave the triage area to answer it. On my way back, upon reaching for the door to enter, I could see through the window patient had walked up almost to the door looking around the corner as of looking for me ambulating with absolutely no distress. She saw me through the window and made an abrupt turn and walk back to her seat inno distress. On physical exam otherwise when palpating, she has absolutely no tenderness to palpation, sits upright in a chair and is tearful when she talks about this, but she is clearly well-appearing and there are no focal neurologic deficits, her tenderness and discomfort is not in the midline,and with the injury being on Saturday, have no clinical suspicion for cauda equina or other serious spinal cord issue based on her presentation to prior ED with negative x- ray, lack of red flag signs and overall excellent clinical appearance. From Care everywhere review of external ED visit earlier this mornin During patient's interview I did have some [...] 48 hours pain at various locations from [facility] to [facility] with multiple hospitals on the route in [...] she will get them filled tomorrow. [CJ] I agree with the above assessment based on my own independent evaluation and interview with the patient. Patient requested Toradol prior to discharge. She starts with pain management on Saturday and believes that she can make it there without a prescription. Problems Addressed: Fall, initial encounter: complicated acute illness or injury Sciatica of left side: complicated acute illness or injury Amount and/or Complexity of Data Reviewed External Data Reviewed: notes. Details: I reviewed various ED notes from various, frequent presentations to emergency departments locally in the area, particularly the ED note from today in [facility] everywhere dated 09/15/2023. This note corroborates her story to me today that she is not having any red flag signs, but they were also very concerned about drug-seeking behavior because of what they are reviewed the PDMP she has been visiting various hospitals between her home address and [place], various hospitals along the way, seeking narcotic pain medication has had multiple prescriptions filled. I also reviewed her PDMP in which she has gone through various locations and prescribers to get small doses of narcotics between August and September. Total 34 prescribers. Risk Prescription drug management. . All independent interpretations of EKGs are documented in [facility]. Diagnoses as of 09/15/23 121 Fall, initial encounter Sciatica of left side CONSULTS: None PROCEDURES: Unless otherwise noted below, none Procedures FINAL IMPRESSION 1. Fall, initial encounter 2. Sciatica of left side DISPOSITION/PLAN DISPOSITION Discharge 09/15/2023 12:06:02 PM PATIENT REFERRED TO: No follow-up provider specified. DISCHARGE MEDICATIONS: New Prescriptions No medications on file @[facility]([id number]:LAST:1)@ (Please note: Portions of this note were completed with a voice recognition program. Efforts were made to edit the dictations but occasionally words and phrases are mis-transcribed.) Form [id number] Karen Rees MD (electronically signed) Emergency Medicine Provider Karen Rees MD 09/15/231212 [id number] Discharge instructions* Discharge Instructions* Jatin Davis PA-C - 09/15/2023 11:04 AM EDT Please follow-up with your primary care provider 1 to 2 days, or return to the emergency departmentimmediately with any worsening symptoms. If any medications were prescribed please take them as instructed. * Attachments The following attachments cannot be sent through Care Everywhere. * Coccyx Injury Discharge Instructions (Montenegrin) documented [facility] Work Phone: 1(704) 541-385207-14-2024 Emergency department Note* Jatin Davis PA-C - [...] Patient reports that she has been taking icfs-nmv-pxcxsmg meds but nothing is controlling her pain [...] DULoxetine (CYMBALTA) 60 mg, oral, Daily RT hlikvhskdvs-rucacmbas-czwjpioz (TRELEGY-ELLIPTA) 200-62.5-25 mcg blister with device 1 [...] Kailee Leach 09/15/2023 10:47 AM Dictation workstation: [id number] ED Course & Medical Decision Making Medications [...] 48 hours pain at various locations from [facility] to [facility] with multiple hospitals on the route in [...] dictated by speech recognition. Minor errors in polysomnographer may be present. Please call if questions. Jatin Davis PA-C 09/15/23 1104 documented in this [facility] Work Phone: [phone]) 377-952007-14-2024 Physician Emergency department Note* Jatin Davis PA-C [...] Patient reports that she has been taking iqji-ccc-xqaljmc meds but nothing is controlling her pain [...] DULoxetine (CYMBALTA) 60 mg, oral, Daily RT eyppalparii-qypjojacn-yyvbsgqa (TRELEGY-ELLIPTA) 200-62.5-25 mcg blister with device 1 [...] Kailee Leach 09/15/2023 10:47 AM Dictation workstation: [id number] ED Course & Medical Decision Making Medications [...] 48 hours pain at various locations from [facility] to [facility] with multiple hospitals on the route in [...] dictated by speech recognition. Minor errors in polysomnographer may be present. Please call if questions. Jatin Davis PA-C 09/15/[address] [facility] Work Phone: [phone]) 840-943307-09-2024 Telephone encounter Note* Telephone Encounter - Db [...] with Dr Lim. Was Patient Referred to 911/Seek Emergency Treatment (Y/N): n Did Patient Agree (Y/N): n Was An Attempt Made To Transfer The Patient To The Office (Y/N): n Were You Able To Reach Someone At The Office (Y/N): n If Yes - Patient Was Transferred To (Caregivers Name): n If No - Which [facility] Leadership [employer] Painter Helper Did You Speak With Regarding This Patient: n Was an appointment scheduled (Y/N): n Reason patient was requesting visit (RFV/signs and symptoms/diagnosis) : acu and manip Person calling if other than patient: self Return call to if other than patient: n Best contact number: [phone] Thank you, Jase Hemphill September 10, 2023 10:08 AM 07-09-2024 Miscellaneous Notes* Telephone Encounter - Db Chavez [...] with Dr Lim. Was Patient Referred to 911/Seek Emergency Treatment (Y/N): n Did Patient Agree (Y/N): n Was An Attempt Made To Transfer The Patient To The Office (Y/N): n Were You Able To Reach Someone At The Office (Y/N): n If Yes - Patient Was Transferred To (Caregivers Name): n If No - Which [facility] Leadership Autom[employer] Painter Helper Did You Speak With Regarding This Patient: n Was an appointment scheduled (Y/N): n Reason patient was requesting visit (RFV/signs and symptoms/diagnosis) : acu and manip Person calling if other than patient: self Return call to if other than patient: n Best contact number: [phone] Thank you, Jase Hemphill September 10, 2023 10:08 AM documented in this encounter07-05-2024 Hospital Discharge instructions* Discharge Instructions* Shruthi Osborn PA-C - 09/06/2023 7:27 AM EDT Referral is entered for orthopedic spine clinic as well as pain management clinic. If you have not heard from them call: Orthopedic spine - [phone] Pain management - [phone] [address] [facility] Work Phone: 1(765) 859-582207-05-2024 Emergency department Note* Shruthi Osborn PA-C - [...] hard time getting good follow-up care at [facility] pain and spine clinic. Was referred to [...] is recommended to follow up with her [facility] painand spine clinic provider as they referred [...] reading to minimize errors, minor errors in polysomnographer may be present call for questions. Shruthi Osborn PA-C 09/06/2333 * Agnieszka Martin RN - 09/06/2023 6:31 AM EDT Pt. Reports that she sustained an injury to her tailbone last fall and felt as if it has never healed. Patient was watching fireworks last night when she fell on her butt and has been having pain since then. Took ibuprofen and toradol at home without relief. documented in this [facility] Work Phone: [phone]) [phone] Emergency department Triage note* Agnieszka Martin RN - 09/06/2023 6:31 AM EDT Pt. Reports that she sustained an injury to her tailbone last fall and felt as if it has never healed. Patient was watching fireworks last night when she fell on her butt and has been having pain since then. Took ibuprofen and toradol at home without relief. [facility]07-05-2024 Physician Emergency department Note * Shruthi Osborn [...] hard time getting good follow-up care at [facility] pain and spine clinic. Was referred to [...] is recommended to follow up with her [facility] painand spine clinic provider as they referred [...] reading to minimize errors, minor errors in polysomnographer may be present call for questions. Shruthi Osborn PA-C 09/06/[address] [facility] Work Phone: [phone] Hospital Discharge instructions* Discharge Instructions* Lauren Batista MD - 09/06/2023 5:54 AM EDT For [...] Care Everywhere. * Chronic Pain Discharge Instructions (Montenegrin) documented in this [id number] Telephone encounter Note* Telephone Encounter - Mary [...] No 9. Does this procedure require a speedboat driver? Yes If yes, has patient been notified that a speedboat driver is needed and must be present [...] of the COVID vaccine.) Mary Ellen Cavazos 06-25-2024 Miscellaneous Notes* Telephone Encounter - Mary Ellen [...] No 9. Does this procedure require a speedboat driver? Yes If yes, has patient been notified that a speedboat driver is needed and must be present [...] 2nd dose of the COVID vaccine.) Mary Eleln Cavazos documented in this encounter06-25-2024 NoteHNO ID: [id number] Author: BELLO LIM DC Service: ? Author [...] and muscle weakness. 04/02 acu 03/18 mp Ca Pain Intensity 4 - The pain is [...] Time out: 1100 Dr. Bello Lim [facility]06-25-2024 History of Present illness Narrative* Bello Lim [...] and muscle weakness. 04/02 acu 03/18 mp Ca Pain Intensity 4 - The pain is [...] Dr. Bello Lim DC documented in this encounter06-25-2024 Telephone encounter Note * Telephone Encounter - Bridgette Fraser LMT - 08/27/2023 6:39 AM EDT INSURANCE CO. ID # GROUP # CO-PAY DEDUCTIBLE COINSUR. OUT OF POCKET MAX PRIOR AUTH REQU'D LIMITATIONS REFERENCE # SPOKE TO: [place] [employer] [phone] [id number] - - -- - AFTER VISIT LIMIT MET 15 MP 30 ACU [id number] MARIYA C 2 XRAYS IN CALENDAR YEAR Is this a Medicare or Medicaid product? N Does this follow Medicare guidelines? N Is this a [facility] product? N Does this require clinical submission through [employer]? N Chiropractor: Dr. Lim Contracted: Y Chiropractic benefits: In network Are the billable benefits a HARD LIMIT? NO If yes, how do we ask for more visits? Fax: Mail: Phone: Website: Ask for the [facility] care department for benefits Be sure to ask: Are these supervised or unsupervised therapeutic modalities covered if billed by [facility]? CPT CODE NAME COVERED? 74310 Manual manipulations spine 1-2 Y 09284 93356 Manual manipulations spine 3-4 Manual manipulations spine 5 Y Y 75345 Manual manipulations of extremities 17080 Hot/cold packs 00995 Mechanical traction 08196 Electrical stimulation 81611 Therapeutic exercises 03009 Neuromuscular re-education 26871 24473 Dry needling 1-2 Muscles Dry needling 3-4 muscles 10352 Massage therapy 10954 Manual therapy 07541 Acupuncture < 15 minutes Y 74748 44928 18304 Acupuncture > 15 minutes Acupuncture with stim < 15 minutes Acupuncture with stim > 15 minutes Y Bridgette Fraser LMT 06-25-2024 Miscellaneous Notes* Telephone Encounter - Bridgette Fraser LMT - 08/27/2023 6:39 AM EDT INSURANCE CO. ID # GROUP # CO-PAY DEDUCTIBLE COINSUR. OUT OF POCKET MAX PRIOR AUTH REQU'D LIMITATIONS REFERENCE # SPOKE TO: [place] [employer] [phone] [id number] - - -- - AFTER VISIT LIMIT MET 15 MP 30 ACU [id number] MARIYA C 2 XRAYS IN CALENDAR YEAR Is this a Medicare or Medicaid product? N Does this follow Medicare guidelines? N Is this a [place] [employer] product? N Does this require clinical submission through [employer]? N Chiropractor: Dr. Lim Contracted: Y Chiropractic benefits: In network Are the billable benefits a HARD LIMIT? NO If yes, how do we ask for more visits? Fax: Mail: Phone: Website: Ask for the managed care department for benefits Be sure to ask: Are these supervised or unsupervised therapeutic modalities covered if billed by achiropractor? CPT CODE NAME COVERED? 87529 Manual manipulations spine 1-2 Y 98580 73446 Manual manipulations spine 3-4 Manual manipulations spine 5 Y Y 53639 Manual manipulations of extremities 72044 Hot/cold packs 85189 Mechanical traction 39101 Electrical stimulation 54857 Therapeutic exercises 04098 Neuromuscular re-education 49408 34144 Dry needling 1-2 Muscles Dry needling 3-4 muscles 50087 Massage therapy 53348 Manual therapy 85194 Acupuncture < 15 minutes Y 28905 66063 79633 Acupuncture > 15 minutes Acupuncture with stim < 15 minutes Acupuncture with stim > 15 minutes Y Bridgette Fraser LMT documented in this encounter06-18-2024 Telephone encounter Note * Telephone Encounter - Bridgette Fraser LMT - 08/20/2023 2:58 PM EDT LVM for patient to schedule with chiro Bridgette Fraser LMT 06-18-2024 Miscellaneous Notes* Telephone Encounter - Bridgette Fraser LMT - 08/20/2023 2:58 PM EDT LVM for patient to schedule with chiro Bridgette Fraser LMT documented in this encounter06-18-2024 NoteHNO ID: [id number] Author: TRISHA TENORIO APRN.XUAN Service: ? Author Type: Nurse Practitioner Type: Progress Notes Filed: 08/20/2023 08:14 Note Text: VIRTUAL VISIT PROGRESS NOTE This is a virtual visit using Sharing[employer] Video Visit. It required patient-provider interaction for the medical decision making as documented below. I have communicated my name and active licensure. The patient's identity and physical location were verified at the time of this visit. Either the patient or their legal customer service representative teacher has been informed of the risks and benefits of -- and alternatives to -- treatment through a remote evaluation and consents to proceed with the evaluation remotely. . [facility] Today's Date: 08/07/2023 Name: Db Mahmood Franki : 1970 Purpose: New Patient Evaluation Chief [...] and validated on 08/07/2023 by Trisha Tenorio APRN.BARRATTE OPERATOR All prescriptions have been APPROPRIATELY filled. Multiple providers, multiple locations/states Diagnostic Studies: Relevant Imaging: MRI Spine Report MRI LUMBAR SPINE WO IVCON Exam End: 09/21/2022 5:18 PM (Final result) Narrative: Patient Name: DB DOAN : 1970 Exam Date/Time: 09/21/2022 17:18 Procedure: MR LUMBAR SPINE WO CONTRAST [facility] Reason For Exam: Low back pain, cauda [...] There is a g (more content not included)...[facility]06-18-2024 History of Present illness Narrative* Trisha Tenorio APRN.BARRATTE OPERATOR - 08/20/2023 7:48 AM EDT VIRTUAL VISIT PROGRESS NOTE This is a virtual visit using MyChart Zoom Video Visit. It required patient- provider interaction for the medical decision making as documented below. I have communicated my name and active licensure. The patient's identity and physical location wereverified at the time of this visit. Either the patient or their legal customer service representative teacher has been informed of the risks and benefits of -- and alternatives to -- treatment through a remote evaluation andconsents to proceed with the evaluation remotely. . [facility] Today's Date: 08/07/2023 Name: Db Doan : 1970 Purpose: New Patient Evaluation Chief complaint: neck and back pain, 12/11 Referring Clinician: Self Pertinent Past Medical History: Anxiety, PTSD, depression, emphysema, migraine generalized convulsive epilepsy Pertinent Past Surgeries: None History of Present Illness (HPI): 08/20/2023 - Initial HPI (Obtained by Trisha Tenorio BARRATTE OPERATOR). DURATION AND ONSET: The pain complaint has [...] and validated on 08/07/2023 by Trisha Tenorio APRN.BARRATTE OPERATOR All prescriptions have been APPROPRIATELY filled. Multiple providers, multiple locations/states Diagnostic Studies: Relevant Imaging: MRI Spine Report MRI LUMBAR SPINE WO IVCON Exam End: 09/21/2022 5:18 PM (Final result) Narrative: Patient Name: DB DOAN : 1970 Exam Date/Time: 09/21/2022 17:18 Procedure: MR LUMBAR SPINE WO CONTRAST Ordering Provider: [facility] Reason For Exam: Low back pain, [...] PM EDT XR SACRUM/COCCYX 3V AP/LAT Order: [id number] Narrative EXAMINATION: XR SACRUM-COCCYX 3 VIEWS 08/06/2023 07:04 AM CLINICAL HISTORY: upper sacrum tenderness, left SI joint tenderness s/p fall ASSOCIATED DIAGNOSIS: ORDERING PROVIDER: ROSALIE ENGEL NOTE: COMPARISON: XR L-SPINE AP+LATERAL 2-3 VIEWS 04/08/2023, 8:50 AM IMPRESSION: There is no evidence for a fracture or bone destruction. The coccygeal segments appear intact. The remaining visualized bones are maintained. MACRO: None Images on Order [id number] XR SHOULDER LIMITED 2V AP/TRUE AP LEFT Order: [id number] Impression No acute abnormality. No significant arthritic [...] Narrative [facility]: [facility]AN [facility] 1970 [id number] Exam Date/Time: 06/12/2023 05:48 Procedure: XR SHOULDER 2+ VIEWS LEFT Ordering Provider: MCCARTHY DUSTIN Reason For Exam: left shoulder pain, fall CT PELVIS ORTHO WO IVCON Order: [id number] Impression No acute osseous abnormality in the [...] AM XR CERV INJURY 3V AP/LAT/ODON Order: [id number] Impression Only minimal anterior marginal osteophytosis. No [...] of C1 on C2. Images on Order [id number] Electrodiagnostic Study (EMG): None Recent Labs: No [...] DDD (degenerative disc disease), cervical PLAN: Db Doan would benefit from the following to reach personal goals for decreasing pain, improving function and work participation, and/or improving quality of life: Medications: No Changes - Continue Current Medications Interventional Procedures: Epidural Steroid Injection - Caudal Approach under fluoroscopic guidance MIDLINE at Sacral Hiatus [employer] Developer Needed: Epidural - YES Anticoagulant - Hold Needed: N/A (Not currently on Anticoagulants) Anticoagulant - Currently Taking: None Allergies (relevant): None Scheduling - Mobility (Can Patient independently transfer on/off an OR or Procedure table?): YES (May schedule at any location) Scheduling - Additional Info: None Studies: Electrodiagnostic Study (EMG): Lumbosacral Radiculopathy - 2 limb (Bilateral Lower) Functional Amish: Chiropractic Consultation Acupuncture Consultation (Chiropractic) Referrals: No [...] decision making from today's date. Trisha Tenorio APRN.BARRATTE OPERATOR Pain Management [facility] I have communicated my name and active licensure. The patient's identity and physical location wereverified at the time of this visit. Either the patient or their legal customer service representative teacher has been informed of the risks and benefits of -- and alternatives to -- treatment through a remote evaluation andconsents to proceed with the evaluation remotely. documented in this encounter06-17-2024 Telephone encounter Note * Telephone Encounter - Krys Cosby MA - 08/19/2023 3:52 PM EDT Left message for patient to call to reschedule new patient appointment [id number] Miscellaneous Notes* Telephone Encounter - Krys Cosby MA - 08/19/2023 3:52 PM EDT Left message for patient to call to reschedule new patient appointment * Telephone Encounter - Timoteo Naidu MA - 08/15/2023 1:09 PM EDT Noted, office will contact patient to reschedule * Telephone Encounter - Mariely Wagner - 08/15/2023 12:56 PM EDT Name of caller: Db Contact phone number: [phone] Relationship to Patient: patient Provider: [facility] Practice: pain management Chief Complaint/Reason for Call: patient is calling in to confirm appt had not idea it was today they thought it was tomorrow. They are needing to cancel their appointment they are in [place] and will not make it in time. They are very sorry they would like a callback to reschedule. Please advise and thank you Best time of day caller can be reached: any Patient advised that office/PCP has 24-48 business hours to return their call: Yes documented in this encounterSPark[facility] HospitalKmsaqa12-32-9785 Telephone encounter Note* Telephone Encounter - Timoteo Naidu MA - 08/15/2023 1:09 PM EDT Noted, office will contact patient to reschedule [id number] Telephone encounter Note* Telephone Encounter - Mariely Wagner - 08/15/2023 12:56 PM EDT Name of caller: Db Contact phone number: [phone] Relationship to Patient: patient Provider: [facility] Practice: pain management Chief Complaint/Reason for Call: patient is calling in to confirm appt had not idea it was today they thought it was tomorrow. They are needing to cancel their appointment they are in [place] and will not make it in time. They are very sorry they would like a callback to reschedule. Please advise and thank you Best time of day caller can be reached: any Patient advised that office/PCP has 24-48 business hours to return their call: Yes [id number] Hospital Discharge instructions Patient Education 08/15/2023 10:27:34 [...] or legs Numbness in the groin area 6001-9[address] [employer] [place] [address]. All rights reserved. This information is not intended as a substitute for professional medical care. Always follow yourhealthcare professional's instructions. Follow Up Care 08/15/2023 04:06:40 With:MARK SINGH MD, Neurosurgery Address: [address] [facility] [address] [facility] [address]- [phone] When:2-4 days With:MARIA ELENA MONTALVO MD Address: [address] [place] [address]- [phone] When:2-4 days [facility] 06-13-2024 Emergency department Discharge summary Discharge Instructions Thank you for allowing [facility] to assist you with your healthcare needs. The following is importantdischarge information regarding your hospital visit. Diagnosis from Today's Visit Back pain What to Do Next Instructions from Your Care Team No qualifying data available. Post Acute Orders No qualifying data available. You Need to Schedule the Following Appointments Follow Up with MARK SINGH MD, Neurosurgery When:Within 2-4 days Where:[address] [facility] [address] [facility] [address]- [phone] Follow Up with MARIA ELENA MONTALVO MD When:Within 2-4 days Where:[address] [place] [address]- [phone] Allergies No Known Medication Allergies Medications Please [...] or legs Numbness in the groin area 8748-8725 [employer]. [address] [place] [address]. All rights reserved. This information is not intended as a substitute for professional medical care. Always follow yourhealthcare professional's instructions. Additional Information VACCINATE! IT SAVES LIVES! Members of the community who have not yet received the COVID-19 vaccine and would like to receive it can visit one of [facility] vaccine clinics. There are many vaccine clinic locations within the [facility]. For locations and available times, please visit www.[email or web address].[place].gov/. It is important to note that some COVID mobile vaccine clinics are held outdoors and may be canceled in rainy or stormy conditions. To learn more about pediatric vaccinations (ages 5-11), we invite you to visit the [facility] webpage. [email or web address]/[email or web address] learn more about the COVID-19 vaccine, we invite you to visit the CDC website for a list of frequently asked questions. https://www.cdc.gov/coronavirus/2019-ncov/vaccines/faq.html [facility] Patient Portal Access Instructions: Stay connected with your healthcare team and access your personal medical information anytime with the [facility] Patient Portal. If you would like a full copy of your medical records please contact the [facility] Medical Records Department Saturday through Saturday between 8a.m. and 4:30p.m. Please follow the directions below to access the portal: 1.Access the email account you provided upon registration to the [facility].2.Look for an invitation email from [facility].3.Open the email and access the invitation link: Accept Invitation to [facility]4.Fill in the required whitfield to create your account. Sign into www.[employer] with your username and password that you [...] you will allow to register on the [facility] Patient Portal for access to your information. You can also access the [facility] Patient Portal on the [facility]. Simply click on Health Records under [employer] and then click on the [employer] logo. HOW TO SAFELY DISPOSE OF PRESCRIPTION [...] Call your local pharmacy or go to [email or web address] to find one close to you.3.Make use of household items: Use cat litter or old coffee grounds to dispose medications if other options arenot available. Mix your drugs with these household products, seal them in an airtight container andthrow it into the garbage. Call [facility]: [phone] to be sure your drugs can be [...] aware that I should contact my doctor. Patient/Website Admin Signature: Date/Time: Relationship to Patient: Witness Name/Signature: Date/Time: [facility] [id number] Hospital Discharge instructions* Discharge Instructions* Siddhartha Partida APRN-BARRATTE OPERATOR - 08/13/2023 4:29 PM EDT Please follow-up with your pain management as well as your your orthopedic physicians as scheduled * Attachments The following attachments cannot be sent through Care Everywhere. * Chronic pain (Montenegrin) documented in this [facility] Work Phone: 1(803) 306-696706-11-2024 Emergency department Note* EVON Caceres - 08/13/2023 [...] symptoms or complaints History provided by: Patient public welfare director used: No PmHx, PsHx, Allergies, Family Hx, [...] src Heart Rate Source Patient Position 08/13/23 1554 -- -- -- 98 % BP Location FiO2 (%) -- -- Vitals: 08/13/23 1554 08/13/23 1556 BP: 122/78 Pulse: (!) 117 Resp: 18 Temp: 36.3 C (97.4 F) SpO2: 98% Weight: 63.5 kg (140 lb) Height: 1.702 m (5' 7) EVON Caceres 08/13/23 1642 documented in this [facility] Work Phone: 1(512) 409-827506-11-2024 Physician Emergency department Note* EVON Caceres - 08/13/2023 [...] symptoms or complaints History provided by: Patient public welfare director used: No PmHx, PsHx, Allergies, Family Hx, [...] src Heart Rate Source Patient Position 08/13/23 1554 -- -- -- 98 % BP Location FiO2 (%) -- -- Vitals: 08/13/23 1554 08/13/23 1556 BP: 122/78 Pulse: (!) 117 Resp: 18 Temp: 36.3 C (97.4 F) SpO2: 98% Weight: 63.5 kg (140 lb) Height: 1.702 m (5' 7) EVON Caceres 08/13/[address] [facility] Work Phone: 1(995) 176-576306-11-2024 Emergency department Note* Gillian Ayala RN - 08/13/2023 5:53 AM EDT Patient discharged by dr harrison. Patient unhappy with discharge and wants an MRI. Patient seen at three separate facilities yesterday for the same pain. Patient walked out of ed, steady gait, nad. [facility]06-11-2024 Emergency department Note* Gillian Ayala RN - 08/13/2023 5:53 AM EDT Patient discharged by dr harrison. Patient unhappy with discharge and wants an MRI. Patient seen at three separate facilities yesterday for the same pain. Patient walked out of ed, steady gait, nad. * Erica Harrison MD - 08/13/2023 5:49 AM EDT Emergency Department Report [facility] EMERGENCY DEPARTMENT Service Date:.08/13/23 PCP: No primary [...] her home to follow up with her paint tinter on Saturday at [facility]. Review of Systems: Review of Systems Constitutional: [...] Resource Strain: Low Risk (11/01/2022) Received from [facility] Overall Financial Resource Strain (CARDIA) Difficulty of Paying Living Expenses: Not very hard Food Insecurity: No Food Insecurity (11/01/2022) Received from [facility] Hunger Vital Sign Worried About Running Out of Food in the Last Year: Never true Ran Out of Food in the Last Year: Never true Transportation Needs: Unknown (11/01/2022) Received from [facility] PRAPARE - Transportation Lack of Transportation (Medical): Not on file Lack of Transportation (Non-Medical): No Physical Activity: Not on file Stress: Not on file Social Connections: Not on file Intimate Partner Violence: Not on file Housing Stability: Unknown (11/01/2022) Received from [facility] Housing Stability Vital Sign Unable to [...] bedischarged home to follow up with a paint tinter as scheduled on Saturday. Clinical Impression: Ankle Pain Chronic Pain No follow-ups on file. New Prescriptions No medications on file Discontinued Medications No medications on file An After Visit Summary was printed and given to the patient with above information. Erica Harrison MD 08/13/23 0552 [facility] Physician Emergency department Note* Erica Harrison MD - 08/13/2023 5:49 AM EDT Emergency Department Report [facility] EMERGENCY DEPARTMENT Service Date:.08/13/23 PCP: No primary [...] her home to follow up with her paint tinter on Saturday at [facility]. Review of Systems: Review of Systems Constitutional: [...] Resource Strain: Low Risk (11/01/2022) Received from [facility] Overall Financial Resource Strain (CARDIA) Difficulty of Paying Living Expenses: Not very hard Food Insecurity: No Food Insecurity (11/01/2022) Received from [facility] Hunger Vital Sign Worried About Running Out of Food in the Last Year: Never true Ran Out of Food in the Last Year: Never true Transportation Needs: Unknown (11/01/2022) Received from [facility] PRAPARE - Transportation Lack of Transportation (Medical): Not on file Lack of Transportation (Non-Medical): No Physical Activity: Not on file Stress: Not on file Social Connections: Not on file Intimate Partner Violence: Not on file Housing Stability: Unknown (11/01/2022) Received from [facility] Housing Stability Vital Sign Unable to [...] bedischarged home to follow up with a paint tinter as scheduled on Saturday. Clinical Impression: Ankle Pain Chronic Pain No follow-ups on file. New Prescriptions No medications on file Discontinued Medications No medications on file An After Visit Summary was printed and given to the patient with above information. Erica Harrison MD 08/13/23 0552 [facility]06-08-2024 Emergency department Note* Katie Kent RN - 08/10/2023 12:29 PM EDT Walking boot given Katie Kent RN 08/10/[address] [facility]-1731 Emergency department Note* Katie Kent RN - 08/10/2023 12:29 PM EDT Walking boot given Katie Kent RN 08/10/23 1229 * Nuno Mar DO - 08/10/2023 11:17 AM EDT EMERGENCY DEPARTMENT ENCOUNTER Pt Name: Db Doan Birthdate 1970 Date of evaluation: 08/10/2023 ED Provider: Nuno Mar DO CHIEF COMPLAINT Chief Complaint Patient presents with Ankle Pain Patient reports rolling her left ankle. Patient reports pain is causing her to have a gait imbalance which is causing back pain. HISTORY OF PRESENT ILLNESS (Location/Symptom, Timing/Onset, Context/Setting, Quality, Duration, Modifying Factors, Severity) Note limiting factors. I wore appropriate PPE for the entirety of this encounter. HPI Db Doan is a 53 y.o. who presents to the emergency department for left ankle pain. She states that she rolled her left ankle and it is causing her to walk abnormally. She states this is causing worsening back pain. The patient is starting pain management next week, is stating the abnormal gaitis causing worsening back pain. 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 Limitations to history: Outside historians: REVIEW OF SYSTEMS Review of Systems Pertinent positives and negatives as per HPI PAST MEDICAL HISTORY Past Medical History: Diagnosis Date H/O section Incomplete tear of left rotator cuff Sciatica Seizures (HCC) Spinal stenosis SURGICAL HISTORY Past Surgical History: Procedure Laterality Date HERNIA REPAIR CURRENT MEDICATIONS Previous Medications DULOXETINE (CYMBALTA) [address] CAPSULE Take 60 mg by mouth daily. Do not crush or chew. LAMOTRIGINE (LAMICTAL) 25 MG TABLET Take 150 mg by mouth daily. METHOCARBAMOL (ROBAXIN) 500 MG TABLET Take 1 tablet (500 mg) by mouth 2 times daily for 10 days. ALLERGIES Patient has no known allergies. FAMILY HISTORY No family history on file. SOCIAL HISTORY Social History Socioeconomic History Marital status: Single Tobacco Use Smoking status: Some Days Types: Cigarettes Smokeless tobacco: Never Vaping Use Vaping Use: Never used Substance and Sexual Activity Alcohol use: Never Drug use: Never PHYSICAL EXAM ED Triage Vitals [08/10/23 1121] Temp Heart Rate Resp BP 36.5 C (97.7 F) 101 20 (!) 150/84 SpO2 Temp Source Heart Rate Source Patient Position 100 % Temporal Monitor -- BP Location FiO2 [...] is no abdominal tenderness. Musculoskeletal: General: No swelling, tenderness or signs of injury. Cervical back: Neck supple. Comments: No edema or erythema noted, relatively unremarkable appearing ankle. Normal sensation, normal pulses, normal cap refill Skin: General: Skin is warm and dry. Capillary Refill: Capillary refill takes less than 2 seconds. Neurological: General: No focal deficit present. Mental Status: She is alert. Psychiatric: Mood and Affect: Mood normal. DIAGNOSTIC RESULTS RADIOLOGY (Per Emergency Physician): Interpretation per the Radiologist below, if available at the time of this note: XR ankle 3+ views left Final Result FINDINGS/IMPRESSION: Limitations: No significant limitations. Left ankle: Ankle mortise and talar dome appear intact. Healed fracture deformity involving the distal left fibula/lateral malleolus. Adjacent ossific fragments appear to be well corticated which suggests chronicity. Recommend correlation with point tenderness. No dislocation. Soft tissue swelling most pronounced laterally. Left foot: Chronic appearing but age indeterminant fracture deformity involving the base of the fifth metatarsal. Recommend correlation with point tenderness. No dislocation. No significant arthropathy. Soft tissue swelling most pronounced along the lateral mid foot. Report Dictated on Electronically Signed By: Polo Barakat MD Electronically Signed Date/Time: 08/10/2023 12:13 PM EDT XR foot 3+ views left Final Result FINDINGS/IMPRESSION: Limitations: No significant limitations. Left ankle: Ankle mortise and talar dome appear intact. Healed fracture deformity involving the distal left fibula/lateral malleolus. Adjacent ossific fragments appear to be well corticated which suggests chronicity. Recommend correlation with point tenderness. No dislocation. Soft tissue swelling most pronounced laterally. Left foot: Chronic appearing but age indeterminant fracture deformity involving the base of the fifth metatarsal. Recommend correlation with point tenderness. No dislocation. No significant arthropathy. Soft tissue swelling most pronounced along the lateral mid foot. Report Dictated on Electronically Signed By: Polo Barakat MD Electronically Signed Date/Time: 08/10/2023 12:13 PM EDT LABS: Labs Reviewed - No data to display All other labs were within normal range or not returned as of this dictation. EMERGENCY DEPARTMENT COURSE and DIFFERENTIAL DIAGNOSIS/MDM: Vitals: Vitals: 08/10/23 1121 BP: (!) 150/84 Pulse: 101 Resp: 20 Temp: 36.5 C (97.7 F) TempSrc: Temporal SpO2: 100% Medications oxyCODONE-acetaminophen (Percocet) 5-325 MG per tablet 2 tablet (has no administration in time range) The patient presented for ankle pain. Was concerned that the abnormal gait was inflaming her back pain. The patient states that she was having significant back pain and had acknowledged that she doeshave a very high tolerance to opioid medications and was kindly inquiring about additional pain medication. I explained to the patient that we could prescribe some oral opioid medication here in the emergency department but we would not be able to give her prescription, which she was kindly amenable to. The patient is going to be given a walking boot and will be discharged home at this time. SCREENINGS PROCEDURES: Unless otherwise noted below, none Procedures CRITICAL CARE TIME FINAL IMPRESSION 1. Sprain of left ankle, initial encounter DISPOSITION Discharge 08/10/2023 12:20:46 PM PATIENT REFERRED TO: Maria Elena Montalvo MD [address] [place] [address] [place] [address] DISCHARGE MEDICATIONS: New Prescriptions No medications on file (Comment: Please note this report has been produced using speech recognition software and may contain errors related to that system including errors in grammar, punctuation, and spelling, as well as words and phrases that may be inappropriate. If there are any questions or concerns please feel freeto contact the dictating provider for clarification.) Nuno Mar DO (electronically signed) Emergency Medicine Provider Nuno Mar DO 08/10/23 1223 * Shellie Heredia RN - 08/10/2023 11:17 AM EDT Patient reports rolling her left ankle. Patient reports pain is causing her to have a gait imbalance which is causing back pain. Patient endorses previous back surgery. documented in this [facility]06-08-2024 Hospital Discharge instructions* Discharge Instructions* Nuno Mar DO - 08/10/2023 12:21 PM EDT Please use Tylenol and/or Motrin at home. Any worsening changing symptoms feel free to return to the ED. * Attachments The following attachments cannot be sent through Care Everywhere. * Ankle Sprain (Montenegrin) documented in this [facility]06-08-2024 Emergency department Triage note* Shellie Heredia RN - 08/10/2023 11:17 AM EDT Patient reports rolling her left ankle. Patient reports pain is causing her to have a gait imbalance which is causing back pain. Patient endorses previous back surgery. [id number] Emergency department Note* Nuno Mar DO - 08/10/2023 11:17 AM EDT EMERGENCY DEPARTMENT ENCOUNTER Pt Name: Db Doan Birthdate 1970 Date of evaluation: 08/10/2023 ED Provider: Nuno Mar DO CHIEF COMPLAINT Chief Complaint Patient presents with Ankle Pain Patient reports rolling her left ankle. Patient reports pain is causing her to have a gait imbalance which is causing back pain. HISTORY OF PRESENT ILLNESS (Location/Symptom, Timing/Onset, Context/Setting, Quality, Duration, Modifying Factors, Severity) Note limiting factors. I wore appropriate PPE for the entirety of this encounter. HPI Db Doan is a 53 y.o. who presents to the emergency department for left ankle pain. She states that she rolled her left ankle and it is causing her to walk abnormally. She states this is causing worsening back pain. The patient is starting pain management next week, is stating the abnormal gaitis causing worsening back pain. 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 Limitations to history: Outside historians: REVIEW OF SYSTEMS Review of Systems Pertinent positives and negatives as per HPI PAST MEDICAL HISTORY Past Medical History: Diagnosis Date H/O section Incomplete tear of left rotator cuff Sciatica Seizures (HCC) Spinal stenosis SURGICAL HISTORY Past Surgical History: Procedure Laterality Date HERNIA REPAIR CURRENT MEDICATIONS Previous Medications DULOXETINE (CYMBALTA) [address] CAPSULE Take 60 mg by mouth daily. Do not crush or chew. LAMOTRIGINE (LAMICTAL) 25 MG TABLET Take 150 mg by mouth daily. METHOCARBAMOL (ROBAXIN) 500 MG TABLET Take 1 tablet (500 mg) by mouth 2 times daily for 10 days. ALLERGIES Patient has no known allergies. FAMILY HISTORY No family history on file. SOCIAL HISTORY Social History Socioeconomic History Marital status: Single Tobacco Use Smoking status: Some Days Types: Cigarettes Smokeless tobacco: Never Vaping Use Vaping Use: Never used Substance and Sexual Activity Alcohol use: Never Drug use: Never PHYSICAL EXAM ED Triage Vitals [08/10/23 1121] Temp Heart Rate Resp BP 36.5 C (97.7 F) 101 20 (!) 150/84 SpO2 Temp Source Heart Rate Source Patient Position 100 % Temporal Monitor -- BP Location FiO2 [...] is no abdominal tenderness. Musculoskeletal: General: No swelling, tenderness or signs of injury. Cervical back: Neck supple. Comments: No edema or erythema noted, relatively unremarkable appearing ankle. Normal sensation, normal pulses, normal cap refill Skin: General: Skin is warm and dry. Capillary Refill: Capillary refill takes less than 2 seconds. Neurological: General: No focal deficit present. Mental Status: She is alert. Psychiatric: Mood and Affect: Mood normal. DIAGNOSTIC RESULTS RADIOLOGY (Per Emergency Physician): Interpretation per the Radiologist below, if available at the time of this note: XR ankle 3+ views left Final Result FINDINGS/IMPRESSION: Limitations: No significant limitations. Left ankle: Ankle mortise and talar dome appear intact. Healed fracture deformity involving the distal left fibula/lateral malleolus. Adjacent ossific fragments appear to be well corticated which suggests chronicity. Recommend correlation with point tenderness. No dislocation. Soft tissue swelling most pronounced laterally. Left foot: Chronic appearing but age indeterminant fracture deformity involving the base of the fifth metatarsal. Recommend correlation with point tenderness. No dislocation. No significant arthropathy. Soft tissue swelling most pronounced along the lateral mid foot. Report Dictated on Electronically Signed By: Polo Barakat MD Electronically Signed Date/Time: 08/10/2023 12:13 PM EDT XR foot 3+ views left Final Result FINDINGS/IMPRESSION: Limitations: No significant limitations. Left ankle: Ankle mortise and talar dome appear intact. Healed fracture deformity involving the distal left fibula/lateral malleolus. Adjacent ossific fragments appear to be well corticated which suggests chronicity. Recommend correlation with point tenderness. No dislocation. Soft tissue swelling most pronounced laterally. Left foot: Chronic appearing but age indeterminant fracture deformity involving the base of the fifth metatarsal. Recommend correlation with point tenderness. No dislocation. No significant arthropathy. Soft tissue swelling most pronounced along the lateral mid foot. Report Dictated on Electronically Signed By: Polo Barakat MD Electronically Signed Date/Time: 08/10/2023 12:13 PM EDT LABS: Labs Reviewed - No data to display All other labs were within normal range or not returned as of this dictation. EMERGENCY DEPARTMENT COURSE and DIFFERENTIAL DIAGNOSIS/MDM: Vitals: Vitals: 08/10/23 1121 BP: (!) 150/84 Pulse: 101 Resp: 20 Temp: 36.5 C (97.7 F) TempSrc: Temporal SpO2: 100% Medications oxyCODONE-acetaminophen (Percocet) 5-325 MG per tablet 2 tablet (has no administration in time range) The patient presented for ankle pain. Was concerned that the abnormal gait was inflaming her back pain. The patient states that she was having significant back pain and had acknowledged that she doeshave a very high tolerance to opioid medications and was kindly inquiring about additional pain medication. I explained to the patient that we could prescribe some oral opioid medication here in the emergency department but we would not be able to give her prescription, which she was kindly amenable to. The patient is going to be given a walking boot and will be discharged home at this time. SCREENINGS PROCEDURES: Unless otherwise noted below, none Procedures CRITICAL CARE TIME FINAL IMPRESSION 1. Sprain of left ankle, initial encounter DISPOSITION Discharge 08/10/2023 12:20:46 PM PATIENT REFERRED TO: Maria Elena Montalvo MD [address] [facility] [address] [place] [address] DISCHARGE MEDICATIONS: New Prescriptions No medications on file (Comment: Please note this report has been produced using speech recognition software and may contain errors related to that system including errors in grammar, punctuation, and spelling, as well as words and phrases that may be inappropriate. If there are any questions or concerns please feel freeto contact the dictating provider for clarification.) Nuno Mar DO (electronically signed) Emergency Medicine Provider Nuno Mar DO 08/10/[address] [id number] Instructions* Patient Instructions* Trisha Tenorio APRN.XUAN - 08/07/2023 7:33 AM EDT Ice and heat as tolerated Activity as tolerated documented in this encounter06-04-2024 Physician Emergency department Note* Santa Pelayo DO [...] scheduled to see a spine surgeon at onAugust 18. She also has epilepsy and [...] needed. Dispo: dc home Santa Pelayo DO [id number] Emergency department Note* Santa Pelayo DO - [...] scheduled to see a spine surgeon at onAugust 18. She also has epilepsy and [...] [S30.0XXA] Ankylosing spondylitis, unspecified site of spine ([facility]) [M45.9] New Prescriptions KETOROLAC (TORADOL) 10 MG TABLET Take 1 Tablet by mouth every 6 hours as needed for Pain. LIDOCAINE (LIDODERM) 5 % PATCH Place 1 Patch on the skin every 24 hours for 7 days. METHOCARBAMOL (ROBAXIN) 500 MG TABLET Take 2 Tablets by mouth 4 times daily as needed. Dispo: ca home Santa Pelayo DO documented in this [id number] Hospital Discharge instructions* Discharge Instructions* Santa Pelayo DO - 08/06/2023 7:34 AM EDT Procedures done during this visit: None * Attachments The following attachments cannot be sent through Care Everywhere. * Coccyx Injury (Montenegrin) documented in this [id number] Instructions* Patient Instructions* Trisha Tenorio APRN.XUAN - 07/22/2023 7:07 AM EDT Ice and heat as tolerated Activity as tolerated documented in this encounter05-07-2024 Hospital Discharge instructions* Discharge Instructions* Sophia Mancilla DO - 07/09/2023 10:22 AM EDT Please call and follow-up with your family physician as soon as possible. Return to emergency department if symptoms persist or worsen. Take medications as prescribed and follow stretches as instructed. Follow-up with your pain specialist. * Attachments The following attachments cannot be sent through Care Everywhere. * Cervical: Exercises (Montenegrin) * Back Care Basics: General Info (Montenegrin) [facility] Discharge summary Author Addy Faith [facility] May 30, 2023 5:24pm Note Date/Time May 30, 2023 4:0 7pm [facility] Medical Records Department [address] [place] [address] Emergency Department Summary 05/30/23 MR#: [id number] Acct: [id number] Name: DB DOAN Rep #:[id number] : 1970 53 From: Addy Faith MD [...] She was medicated with oral Naprosyn and Grinnell. She requested no injections. History & Record [...] 17:05 EDT Reading Location ID and State: [facility] / [place] Tel [phone], Service support , Treatment and Re-Evaluation Narrative: [...] your insurance card issued to you by [employer]. Disposition Disposition: Home, Self Care What to do if you have Problems For any increased pain, shortness of breath, bleeding, nausea or vomiting, chestpain, or any unexpected problems, contact your Primary Care Provider. Call [facility] ([phone]) or report to the closest Emergency Room. Call 911 if necessary. 05/30/23 1724 <Electronically signed by Addy Faith MD> Cosigner Signature (if applicable): CC: No Primary Care Physician ~ Signed [facility] Work Phone: 1(379) 245-575403-28-2024 Hospital Discharge instructions Additional Instructions 1. Apply ice to your low back 6-10 times a day for the next 3 to 5 days 2. Take medicine as prescribed 3. The name of your primary care provider is listed on your insurance card issued to you by [employer].[facility] Work Phone: 1(316) 356-720403-22-2024 Emergency department Note* Jessica Velázquez, - 05/24/2023 5:23 AM EDT EMERGENCY DEPARTMENT ENCOUNTER Pt Name: Db Doan Birthdate 1970 Date of evaluation: 05/24/2023 ED Provider: Jessica Velázquez DO CHIEF COMPLAINT Chief Complaint Patient presents with Tailbone Pain Pt states that the nerve in her tailbone are pinched off. States that the pain began yesterday. Pt ambulatory in triage. Pt takes muscle relaxer/naproxen and finished a steroid pack 2 days ago. Pt ispending appt with pain management for nerve pain HISTORY OF PRESENT ILLNESS (Location/Symptom, Timing/Onset, Context/Setting, Quality, Duration, Modifying Factors, Severity) Note limiting factors. I wore appropriate PPE for the entirety of this encounter. HPI Db Doan is a 53 y.o. female with history of spinal stenosis with sciatica, ankylosing spondylitis, ongoing coccydynia secondary to tailbone fracture from fall last summer/ has appointment to establish with pain medicine 08/15/2023 who presents to the emergency department with complaint of worsened sacral pain over the last 2 months. Denies recurrent traumatic injury aside from mechanical fall onto buttock about 1 week ago from slipping on the ice. Did not hit her head. States that she is used to her right-sided sacral pain with radiation into right buttock but has more recently developed left-sided sacral pain with radiation down posterior leg and into posterior thigh. States that she was recently started on Flexeril, gabapentin, prednisone burst, and increase Cymbalta by PCP for her symptoms. Given referral by PCP for orthopedic spine and is currently in the process of scheduling an appointment. Endorses subjective numbness right medial thigh and episode of fecal incontinence 1.5mo ago for which she had recent out of area MRI that showed no acute surgical process. Patient denies fevers. Requesting pain control. Per chart review, this is patient's ninth ED visit in the last 2 months. Has had 3 x-rays of spine and pelvis and 2 CTs of lumbar spine. Has had 6 short course narcotic prescriptions in the last 3 months all by different providers. 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 Limitations to history: None Outside historians: None REVIEW OF SYSTEMS Review of Systems Negative except per HPI PAST MEDICAL HISTORY Past Medical History: Diagnosis Date H/O section Incomplete tear of left rotator cuff Sciatica Seizures (HCC) Spinal stenosis SURGICAL HISTORY Past Surgical History: Procedure Laterality Date HERNIA REPAIR CURRENT MEDICATIONS Previous Medications DULOXETINE (CYMBALTA) [address] CAPSULE Take 60 mg by mouth daily. Do not crush or chew. LAMOTRIGINE (LAMICTAL) 25 MG TABLET Take 150 mg by mouth daily. METHOCARBAMOL (ROBAXIN) 500 MG TABLET Take 1 tablet (500 mg) by mouth 2 times daily for 10 days. ALLERGIES Patient has no known allergies. FAMILY HISTORY No family history on file. SOCIAL HISTORY Social History Socioeconomic History Marital status: Single Tobacco Use Smoking status: Some Days Types: Cigarettes Smokeless tobacco: Never Vaping Use Vaping Use: Never used Substance and Sexual Activity Alcohol use: Never Drug use: Never SCREENINGS PHYSICAL EXAM ED Triage Vitals [05/24/23 0525] Temp Heart Rate Resp BP 36.4 C (97.6 F) 103 18 (!) 130/90 SpO2 Temp Source Heart Rate Source Patient Position 99 % Temporal Monitor -- BP Location FiO2 (%) -- -- Physical Exam BP (!) 130/90 Pulse 103 Temp 36.4 C (97.6 F) (Temporal) Resp 18 Ht 1.702 m (5' 7) Wt 61.2 kg (135 lb) SpO2 99% BMI 21.14 kg/m Back: TTP at tip of coccyx and the bilateral SI joints, no deformities or step- offs of the thoracicor lumbar spine. No abrasions or bruising. No erythema, induration or fluctuance. Neuro: musculoskeletal strength: LE 5/5 symmetric to hip flexion/extension, knee flexion/extension,elliott/plantar flexion, EHL of great toe. Sensation grossly intact throughout LE dermatomes, coordination grossly intact, normal cerebellar testing. Gait normal. Extremities: Distal capillary refill takes less than 2 seconds. DP, PT pulses are 2+ bilaterally. Distal sensation and motor intact. DIAGNOSTIC RESULTS RADIOLOGY (Per Emergency Physician): XR Sacrum No acute fracture Interpretation per the Radiologist below, if available at the time of this note: XR sacrum coccyx 2+ views Final Result No acute fracture or dislocation identified. Report Dictated on Electronically Signed By: Itz Garcia MD Electronically Signed Date/Time: 05/24/2023 6:23 AM EDT LABS: Labs Reviewed - No data to display All other labs were within normal range or not returned as of this dictation. EMERGENCY DEPARTMENT COURSE and DIFFERENTIAL DIAGNOSIS/MDM: Vitals: Vitals: 05/24/23 0524 05/24/23 0525 BP: (!) 130/90 Pulse: 103 Resp: 18 Temp: 36.4 C (97.6 F) TempSrc: Temporal SpO2: 99% Weight: 61.2 kg (135 lb) Height: 1.702 m (5' 7) 53 y.o. female with history of spinal stenosis with sciatica, ankylosing spondylitis, ongoing coccydynia secondary to tailbone fracture from fall last summer/ has appointment to establish with pain medicine 08/15/2023 who presents to the emergency department with complaint of worsened sacral pain over the last 2 months. Endorses fall onto buttock 1 week ago. States that she was recently started onFlexeril, gabapentin, prednisone burst, and increase Cymbalta by PCP for her symptoms. Given referral by PCP for orthopedic spine and is currently in the process of scheduling an appointment. Endorses subjective numbness right medial thigh and episode of fecal incontinence 1.5 mo ago for which she had recent nonlocal MRI that showed no acute surgical process. Requesting pain control. Per chart review, this is patient's ninth ED visit in the last 2 months. Has had 3 x-rays of spine and pelvis and 2 CTs of lumbar spine. Has had 6 short course narcotic prescriptions in the last 3 months all by different providers. Considered chronic neuropathic pain from spinal stenosis/ankylosing spondylitis. Given no endorsed new neurologic complaints and absence of saddle anesthesia/urinary/fecal incontinence since recent MRI revealing no process, repeat imaging to evaluate for cord compression not warranted. Exam benign. Strength and sensation intact bilaterally. Tip of coccyx tenderness to palpation. Given recurrent fall, x-ray coccyx obtained and as per my independent interpretation verified by radiologist no acutefracture. Treated symptomatically in the emergency department with lidocaine patch and dose of Percocet. Given concerning OAR[facility] report, patient advised that narcotics would not be prescribed from ED encounter. Advised to follow-up with primary care provider for further management of ongoing chroniccoccyx pain. PROCEDURES: Unless otherwise noted below, none Procedures FINAL IMPRESSION 1. Chronic coccygeal pain DISPOSITION Discharge 05/24/2023 05:52:37 AM PATIENT REFERRED TO: Maria Elena Montalvo MD [address] [place] [address] [address] [place] [address] DISCHARGE MEDICATIONS: New Prescriptions LIDOCAINE 4 % PATCH Place 1 patch on the skin daily. (Comment: Please note this report has been produced using speech recognition software and may contain errors related to that system including errors in grammar, punctuation, and spelling, as well as words and phrases that may be inappropriate. If there are any questions or concerns please feel freeto contact the dictating provider for clarification.) Jessica Velázquez DO (electronically signed) Emergency Medicine Provider Jessica Velázquez DO 05/24/23 0705 documented in this [facility]03-22-2024 Physician Emergency department Note* Jessica Velázquez DO - 05/24/2023 5:23 AM EDT EMERGENCY DEPARTMENT ENCOUNTER Pt Name: Db Doan Birthdate 1970 Date of evaluation: 05/24/2023 ED Provider: Jessica Velázquez DO CHIEF COMPLAINT Chief Complaint Patient presents with Tailbone Pain Pt states that the nerve in her tailbone are pinched off. States that the pain began yesterday. Pt ambulatory in triage. Pt takes muscle relaxer/naproxen and finished a steroid pack 2 days ago. Pt ispending appt with pain management for nerve pain HISTORY OF PRESENT ILLNESS (Location/Symptom, Timing/Onset, Context/Setting, Quality, Duration, Modifying Factors, Severity) Note limiting factors. I wore appropriate PPE for the entirety of this encounter. HPI Db Doan is a 53 y.o. female with history of spinal stenosis with sciatica, ankylosing spondylitis, ongoing coccydynia secondary to tailbone fracture from fall last summer/ has appointment to establish with pain medicine 08/15/2023 who presents to the emergency department with complaint of worsened sacral pain over the last 2 months. Denies recurrent traumatic injury aside from mechanical fall onto buttock about 1 week ago from slipping on the ice. Did not hit her head. States that she is used to her right-sided sacral pain with radiation into right buttock but has more recently developed left-sided sacral pain with radiation down posterior leg and into posterior thigh. States that she was recently started on Flexeril, gabapentin, prednisone burst, and increase Cymbalta by PCP for her symptoms. Given referral by PCP for orthopedic spine and is currently in the process of scheduling an appointment. Endorses subjective numbness right medial thigh and episode of fecal incontinence 1.5mo ago for which she had recent out of area MRI that showed no acute surgical process. Patient denies fevers. Requesting pain control. Per chart review, this is patient's ninth ED visit in the last 2 months. Has had 3 x-rays of spine and pelvis and 2 CTs of lumbar spine. Has had 6 short course narcotic prescriptions in the last 3 months all by different providers. 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 Limitations to history: None Outside historians: None REVIEW OF SYSTEMS Review of Systems Negative except per HPI PAST MEDICAL HISTORY Past Medical History: Diagnosis Date H/O section Incomplete tear of left rotator cuff Sciatica Seizures (HCC) Spinal stenosis SURGICAL HISTORY Past Surgical History: Procedure Laterality Date HERNIA REPAIR CURRENT MEDICATIONS Previous Medications DULOXETINE (CYMBALTA) [address] CAPSULE Take 60 mg by mouth daily. Do not crush or chew. LAMOTRIGINE (LAMICTAL) 25 MG TABLET Take 150 mg by mouth daily. METHOCARBAMOL (ROBAXIN) 500 MG TABLET Take 1 tablet (500 mg) by mouth 2 times daily for 10 days. ALLERGIES Patient has no known allergies. FAMILY HISTORY No family history on file. SOCIAL HISTORY Social History Socioeconomic History Marital status: Single Tobacco Use Smoking status: Some Days Types: Cigarettes Smokeless tobacco: Never Vaping Use Vaping Use: Never used Substance and Sexual Activity Alcohol use: Never Drug use: Never SCREENINGS PHYSICAL EXAM ED Triage Vitals [05/24/23 0525] Temp Heart Rate Resp BP 36.4 C (97.6 F) 103 18 (!) 130/90 SpO2 Temp Source Heart Rate Source Patient Position 99 % Temporal Monitor -- BP Location FiO2 (%) -- -- Physical Exam BP (!) 130/90 Pulse 103 Temp 36.4 C (97.6 F) (Temporal) Resp 18 Ht 1.702 m (5' 7) Wt 61.2 kg (135 lb) SpO2 99% BMI 21.14 kg/m Back: TTP at tip of coccyx and the bilateral SI joints, no deformities or step- offs of the thoracicor lumbar spine. No abrasions or bruising. No erythema, induration or fluctuance. Neuro: musculoskeletal strength: LE 5/5 symmetric to hip flexion/extension, knee flexion/extension,elliott/plantar flexion, EHL of great toe. Sensation grossly intact throughout LE dermatomes, coordination grossly intact, normal cerebellar testing. Gait normal. Extremities: Distal capillary refill takes less than 2 seconds. DP, PT pulses are 2+ bilaterally. Distal sensation and motor intact. DIAGNOSTIC RESULTS RADIOLOGY (Per Emergency Physician): XR Sacrum No acute fracture Interpretation per the Radiologist below, if available at the time of this note: XR sacrum coccyx 2+ views Final Result No acute fracture or dislocation identified. Report Dictated on Electronically Signed By: Itz Garcia MD Electronically Signed Date/Time: 05/24/2023 6:23 AM EDT LABS: Labs Reviewed - No data to display All other labs were within normal range or not returned as of this dictation. EMERGENCY DEPARTMENT COURSE and DIFFERENTIAL DIAGNOSIS/MDM: Vitals: Vitals: 05/24/23 0524 05/24/23 0525 BP: (!) 130/90 Pulse: 103 Resp: 18 Temp: 36.4 C (97.6 F) TempSrc: Temporal SpO2: 99% Weight: 61.2 kg (135 lb) Height: 1.702 m (5' 7) 53 y.o. female with history of spinal stenosis with sciatica, ankylosing spondylitis, ongoing coccydynia secondary to tailbone fracture from fall last summer/ has appointment to establish with pain medicine 08/15/2023 who presents to the emergency department with complaint of worsened sacral pain over the last 2 months. Endorses fall onto buttock 1 week ago. States that she was recently started onFlexeril, gabapentin, prednisone burst, and increase Cymbalta by PCP for her symptoms. Given referral by PCP for orthopedic spine and is currently in the process of scheduling an appointment. Endorses subjective numbness right medial thigh and episode of fecal incontinence 1.5 mo ago for which she had recent nonlocal MRI that showed no acute surgical process. Requesting pain control. Per chart review, this is patient's ninth ED visit in the last 2 months. Has had 3 x-rays of spine and pelvis and 2 CTs of lumbar spine. Has had 6 short course narcotic prescriptions in the last 3 months all by different providers. Considered chronic neuropathic pain from spinal stenosis/ankylosing spondylitis. Given no endorsed new neurologic complaints and absence of saddle anesthesia/urinary/fecal incontinence since recent MRI revealing no process, repeat imaging to evaluate for cord compression not warranted. Exam benign. Strength and sensation intact bilaterally. Tip of coccyx tenderness to palpation. Given recurrent fall, x-ray coccyx obtained and as per my independent interpretation verified by radiologist no acutefracture. Treated symptomatically in the emergency department with lidocaine patch and dose of Percocet. Given concerning OARRS report, patient advised that narcotics would not be prescribed from ED encounter. Advised to follow-up with primary care provider for further management of ongoing chroniccoccyx pain. PROCEDURES: Unless otherwise noted below, none Procedures FINAL IMPRESSION 1. Chronic coccygeal pain DISPOSITION Discharge 05/24/2023 05:52:37 AM PATIENT REFERRED TO: Maria Elena Montalvo MD [address] [place] [address] [address] [place] [address] DISCHARGE MEDICATIONS: New Prescriptions LIDOCAINE 4 % PATCH Place 1 patch on the skin daily. (Comment: Please note this report has been produced using speech recognition software and may contain errors related to that system including errors in grammar, punctuation, and spelling, as well as words and phrases that may be inappropriate. If there are any questions or concerns please feel freeto contact the dictating provider for clarification.) Jessica Velázquez DO (electronically signed) Emergency Medicine Provider Jessica Velázquez DO 05/24/[address] [id number] Discharge instructions Patient Education 05/16/2023 05:56:05 [...] Numbness in the groin or genital area [id number] [employer]. [address] [place] [address]. All rights reserved. This information is not intended as a substitute for professional medical care. Always follow yourhealthcare professional's instructions. Follow Up Care 05/16/2023 04:33:43 With:MARIA ELENA MONTALVO MD Address: [address] [place] [address]- [phone] When:2-4 days [facility] 03-14-2024 Emergency department Discharge summary Discharge Instructions Thank you for allowing [facility] to assist you with your healthcare needs. [...] Within 2-4 days Where: [place] [address] [place] [address]- [phone] Allergies No Known Medication Allergies Medications Please [...] Numbness in the groin or genital area [id number] [employer] [place] [address], [place] [address]. All rights reserved. This information is not intended as a substitute for professional medical care. Always follow yourhealthcare professional's instructions. Additional Information VACCINATE! IT SAVES LIVES! Members of the community who have not yet received the COVID-19 vaccine and would like to receive it can visit one of [facility] vaccine clinics. There are many vaccine clinic locations within the [facility]. For locations and available times, please visit [email or web address].[email or web address] It is important to note that some COVID mobile vaccine clinics are held outdoors and may be canceled in rainy or stormy conditions. To learn more about pediatric vaccinations (ages 5-11), we invite you to visit the [facility] webpage. [email or web address] learn more about the COVID-19 vaccine, we invite you to visit the CDC website for a list of frequently asked questions. https://www.cdc.gov/coronavirus/2019-ncov/vaccines/faq.html [facility] Patient Portal Access Instructions: Stay connected with your healthcare team and access your personal medical information anytime with the [facility] Patient Portal. If you would like a full copy of your medical records please contact the [facility] Medical Records Department Saturday through Saturday between 8a.m. and 4:30p.m. Please follow the directions below to access the portal: 1.Access the email account you provided upon registration to the hospital.2.Look for an invitation email from [facility].3.Open the email and access the invitation link: Accept Invitation to [facility]4.Fill in the required whitfield to create your account. Sign into www.[employer] with your username and password that you [...] you will allow to register on the [facility] Patient Portal for access to your information. You can also access the [facility] Patient Portal on the [employer] surinder. Simply click on Health Records under [employer] and then click on the [facility] logo. HOW TO SAFELY DISPOSE OF PRESCRIPTION [...] Call your local pharmacy or go to [email or web address] to find one close to you.3.Make use of household items: Use cat litter or old coffee grounds to dispose medications if other options arenot available. Mix your drugs with these household products, seal them in an airtight container andthrow it into the garbage. Call [facility]: [phone] to be sure your drugs can be [...] aware that I should contact my doctor. Patient/Website Admin Signature: Date/Time: Relationship to Patient: Witness Name/Signature: Date/Time: [facility]47-[facility]-7810 Note ORIGINAL EXAMINATION: 4 XRAY VIEWS OF [...] Sign Date: 05/16/2023 5:46:11 AM Ordering Provider: [facility]03-[facility]24 Hospital Discharge instructions* Discharge Instructions* Ninoska Munoz APRN - CNP - 05/06/2023 4:43 PM EST Continue taking your Cymbalta, naproxen, Tylenol, Lidoderm patches and muscle relaxants as prescribed. * Discharge Instr - YEYO* Anayeli Nguyen RN - 05/06/2023 5:17 PM EST Continuity of Care Form Patient Name: Db Doan : 1970 Admit date: 05/06/2023 Discharge date: Code Status Order: Prior Advance Directives: Admitting Physician: No admitting provider for patient encounter. 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 Past Surgical History: Past Surgical History: Procedure Laterality Date SECTION SECTION 08/09/1999 &12/11/[address] PACHECO HC INJECTION PROCEDURE FOR SACROILIAC JOINT Left 02/02/2019 LEFT SACROILIAC JOINT INJECTION WITHOUT SEDATION (CPT 43845) performed by Khoa Gallagher MD at [facility] OR HERNIA REPAIR HIP SURGERY Left 03/17/2019 LEFT HIP INJECTION WITHOUT SEDATION (CPT 44446,64967) performed by Khoa Gallagher MD at [facility] OR NERVE BLOCK Left 02/02/2019 sacroiliac [...] F43.10 Sprain or strain of cervical spine [id number] Reactive depression F32.9 Other chronic pain G89.29 [...] MENTAL STATUS:} IV Access: { YEYO IV ACCESS:476926646} Nursing Mobility/ADLs: Walking {CHP DME ADLs:241260222} Transfer {CHP DME ADLs:957504733} Bathing {CHP DME ADLs:453833175} Dressing {CHP DME ADLs:033631077} Toileting {CHP DME ADLs:399004024} Feeding {CHP DME ADLs:908869197} Crusher Plant Operator {CHP DME ADLs:426940998} Med Delivery { YEYO MED Delivery:382319550} Wound Care Documentation and Therapy: Elimination: Continence: Bowel: {YES / NO:} Bladder: {YES / NO:} Urinary Catheter: {Urinary Catheter:754683677} Colostomy/Ileostomy/Ileal Conduit: {YES / NO:} Date of Last BM: No intake or output data in the 24 hours ending 05/06/23 1717 No intake/output data recorded. Safety Concerns: { YEYO Safety Concerns:525667751} Impairments/Disabilities: { YEYO Impairments/Disabilities:447042239} Nutrition Therapy: Current Nutrition Therapy: { YEYO Diet List:300095373} Routes of Feeding: {CHP DME Other Feedings:524154437} Liquids: {Disease And Insect Control Boss liquid thickness:58460} Daily Fluid Restriction: {CHP DME Yes amt example:799135424} Last Modified Barium Swallow with Video (Video Swallowing Test): {Done Not Done Date:} Treatments at the Time of Hospital Discharge: Respiratory Treatments: Oxygen Therapy: {Therapy; copd oxygen:63206} Ventilator: { CC Vent List:346738902} Rehab Therapies: {THERAPEUTIC INTERVENTION:5571558982} Weight Bearing Status/Restrictions: {[facility] Weight Bearin} Other Medical Equipment (for information only, NOT a DME order): {EQUIPMENT:303866227} Other Treatments: Patient's personal belongings (please select all that are sent with patient): {P DME Belongings:697287618} RN SIGNATURE: {Esignature:908837605} CASE MANAGEMENT/SOCIAL WORK SECTION Inpatient Status Date: Readmission Risk Assessment Score: Readmission Risk Risk of Unplanned Readmission: 0 Discharging to Facility/ Agency Name: Address: Phone: Fax: Dialysis Facility (if applicable) Name: Address: Dialysis Schedule: Phone: Fax: Coal Shooter/Kinesiologist signature: {Esignature:952332460} PHYSICIAN SECTION Prognosis: {Prognosis:3430819978} Condition at Discharge: { Patient Condition:179403825} Rehab Potential (if transferring to Rehab): {Prognosis:9887735502} Recommended Labs or Other Treatments After Discharge: Physician Certification: I certify the above information and transfer of Db Doan is necessary for the continuing treatment of the diagnosis listed and that she requires {Admit to Appropriate Level of Care:04682} for {GREATER/LESS:025748619} 30 days. Update Admission H&P: {CHP DME Changes in HandP:609164094} PHYSICIAN SIGNATURE: {Esignature:068679254} * Attachments The following attachments cannot be sent through Care Everywhere. 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 Past Surgical History: Past Surgical History: Procedure Laterality Date SECTION SECTION 08/09/1999 &12/11/[address] PACHECO HC INJECTION PROCEDURE FOR SACROILIAC JOINT Left 02/02/2019 LEFT SACROILIAC JOINT INJECTION WITHOUT SEDATION (CPT 32482) performed by Khoa Gallagher MD at [facility] OR HERNIA REPAIR HIP SURGERY Left 03/17/2019 LEFT HIP INJECTION WITHOUT SEDATION (CPT 92140,52702) performed by Khoa Gallagher MD at [facility] OR NERVE BLOCK Left 02/02/2019 sacroiliac [...] F43.10 Sprain or strain of cervical spine [id number] Reactive depression F32.9 Other chronic pain G89.29 [...] MENTAL STATUS:} IV Access: { YEYO IV ACCESS:517615561} Nursing Mobility/ADLs: Walking {CHP DME ADLs:669260058} Transfer {CHP DME ADLs:373256005} Bathing {CHP DME ADLs:592129895} Dressing {CHP DME ADLs:200922664} Toileting {CHP DME ADLs:280736625} Feeding {CHP DME ADLs:383087806} Crusher Plant Operator {[facility] DME ADLs:259875877} Med Delivery { YEYO MED Delivery:892606075} Wound Care Documentation and Therapy: Elimination: Continence: Bowel: {YES / NO:} Bladder: {YES / NO:} Urinary Catheter: {Urinary Catheter:379400166} Colostomy/Ileostomy/Ileal Conduit: {YES / NO:} Date of Last BM: No intake or output data in the 24 hours ending 04/25/23 1311 No intake/output data recorded. Safety Concerns: { YEYO Safety Concerns:176025542} Impairments/Disabilities: { YEYO Impairments/Disabilities:306765404} Nutrition Therapy: Current Nutrition Therapy: { YEYO Diet List:657946070} Routes of Feeding: {P DME Other Feedings:591252637} Liquids: {Disease And Insect Control Boss liquid thickness:62928} Daily Fluid Restriction: {[facility] DME Yes amt example:235061903} Last Modified Barium Swallow with Video (Video Swallowing Test): {Done Not Done Date:944163439} Treatments at the Time of Hospital Discharge: Respiratory Treatments: Oxygen Therapy: {Therapy; copd oxygen:95316} Ventilator: {[facility] Vent List:604239825} Rehab Therapies: {THERAPEUTIC INTERVENTION:9105252206} Weight Bearing Status/Restrictions: {[facility] Weight Bearin} Other Medical Equipment (for information only, NOT a DME order): {EQUIPMENT:276892911} Other Treatments: Patient's personal belongings (please select all that are sent with patient): {[facility] DME Belongings:907829418} RN SIGNATURE: {Esignature:498005383} CASE MANAGEMENT/SOCIAL WORK SECTION Inpatient Status Date: Readmission Risk Assessment Score: Readmission Risk Risk of Unplanned Readmission: 0 Discharging to Facility/ Agency Name: Address: Phone: Fax: Dialysis Facility (if applicable) Name: Address: Dialysis Schedule: Phone: Fax: Coal Shooter/Kinesiologist signature: {Esignature:593621021} PHYSICIAN SECTION Prognosis: {Prognosis:7800320205} Condition at Discharge: { Patient Condition:712267252} Rehab Potential (if transferring to Rehab): {Prognosis:9365221712} Recommended Labs or Other Treatments After Discharge: Physician Certification: I certify the above information and transfer of Db Doan is necessary for the continuing treatment of the diagnosis listed and that she requires {Admit to Appropriate Level of Care:94729} for {GREATER/LESS:793630029} 30 days. Update Admission H&P: {CHP DME Changes in HandP:780101099} PHYSICIAN SIGNATURE: {Esignature:076363893} * Attachments The following attachments cannot be sent through Care Everywhere. * Chest Pain (Montenegrin) * Anxiety Disorders: General Info (Montenegrin) [facility] Telephone encounter Note* Telephone Encounter - Krys Cosby MA - 04/15/2023 12:10 PM EST Left message for patient to call to schedule new patient appointment [facility]Wnbjpd30-99-9552 Miscellaneous Notes* Telephone Encounter - Krys Cosby MA - 04/15/2023 12:10 PM EST Left message for patient to call to schedule new patient appointment * Telephone Encounter - Jacobo Sharp MD - 04/12/2023 6:10 PM EST Does not meet criteria for urgent referral * Telephone Encounter - Krys Cosby MA - 04/12/2023 5:04 PM EST Spoke to patient sent to provider for review * Telephone Encounter - Jessica Amezcua - 04/12/2023 4:51 PM EST Name of Caller: Db Contact Reason for Appointment: Patient returning a call to reschedule her 04/10/23 appointment. Patient states that she was told she could be squeezed in next week. Office Name: Interventional Pain Management * Telephone Encounter - Krys Cosby MA - 04/12/2023 4:33 PM EST Left message for patient to call to schedule new patient appointment * Telephone Encounter - Vianey Maier - 04/12/2023 10:06 AM EST Name of Caller: Db Contact Reason for Appointment: Referral in chart Office Name: Pain Management documented in this encounterSPark[facility] [id number] Telephone encounter Note* Telephone Encounter - Jacobo Sharp MD - 04/12/2023 6:10 PM EST Does not meet criteria for urgent referral [facility] [employer] Phone: [phone] 934-353402-09-2024 Telephone encounter Note* Telephone Encounter - Krys Cosby MA - 04/12/2023 5:04 PM EST Spoke to patient sent to provider for review [facility] [id number] Telephone encounter Note* Telephone Encounter - Jessica Amezcua - 04/12/2023 4:51 PM EST Name of Caller: Db Contact Reason for Appointment: Patient returning a call to reschedule her 04/10/23 appointment. Patient states that she was told she could be squeezed in next week. Office Name: Interventional Pain Management [facility]Rcwkxp12-22-8799 Telephone encounter Note* Telephone Encounter - Krys Cosby MA - 04/12/2023 4:33 PM EST Left message for patient to call to schedule new patient appointment [facility] HospitalQdzdms43-59-3937 Telephone encounter Note* Telephone Encounter - Vianey Maier - 04/12/2023 10:06 AM EST Name of Caller: Db Contact Reason for Appointment: Referral in chart Office Name: Pain Management [facility] HospitalEbmbmb28-05-5542 Hospital Discharge instructions* Discharge Instructions* Lilibeth Martinez DO - 03/30/2023 7:53 PM EST No evidence of fracture on your x-rays. Please follow-up with pain management and do not drive or operate heavy machinery while taking pain medication. * Attachments The following attachments cannot be sent through Care Everywhere. * Sciatica Discharge Instructions (Montenegrin) documented in this [facility]01-27-[facility]24 Emergency department Note* Lilibeth Martinez DO - 03/30/2023 5:46 PM EST EMERGENCY DEPARTMENT ENCOUNTER Pt Name: Db Doan Birthdate 1970 Date of evaluation: 03/30/2023 ED Provider: Lilibeth Martinez DO CHIEF COMPLAINT Chief Complaint Patient presents with Fall Tailbone Pain HISTORY OF PRESENT ILLNESS (Location/Symptom, Timing/Onset, Context/Setting, Quality, Duration, Modifying Factors, Severity) Note limiting factors. I wore appropriate PPE for the entirety of this encounter. HPI 52-year-old presents emergency department today with lower back and tailbone pain after mechanical trip and fall today. She states she had a recent tailbone fracture and had already followed up with orthopedic surgery regarding this. It is best to have pain management follow-up in the near future but is only been taking naproxen at home for pain. 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 Limitations to history: None Outside historians: None REVIEW OF SYSTEMS Review of Systems Genitourinary: Negative for difficulty urinating. Musculoskeletal: Positive for back pain. Neurological: Negative for weakness. Right foot paresthesias Pertinent positives and negatives as per HPI. PAST MEDICAL HISTORY Past Medical History: Diagnosis Date H/O section Incomplete tear of left rotator cuff Sciatica Seizures (HCC) Spinal stenosis SURGICAL HISTORY Past Surgical History: Procedure Laterality Date HERNIA REPAIR CURRENT MEDICATIONS Discharge Medication List as of 03/30/2023 7:57 PM CONTINUE these medications which have NOT CHANGED Details DULoxetine (Cymbalta) [address] capsule Take 60 mg by mouth daily. Do not crush or chew., HistoricalMed lamoTRIgine (LaMICtal) 25 MG tablet Take 150 mg by mouth daily., Historical Med methocarbamol (Robaxin) 500 MG tablet Take 1 tablet (500 mg) by mouth 2 times daily for 10 days., Starting Sat09/21/2022, Until Sat10/01/2022, Print ALLERGIES Patient has no known allergies. FAMILY HISTORY No family history on file. SOCIAL HISTORY Social History Socioeconomic History Marital status: Single Tobacco Use Smoking status: Some Days Types: Cigarettes Smokeless tobacco: Never Vaping Use Vaping Use: Never used Substance and Sexual Activity Alcohol use: Never Drug use: Never SCREENINGS PHYSICAL EXAM ED Triage Vitals [03/30/23 1811] Temp Heart Rate Resp BP 36.4 C (97.5 F) 98 19 110/76 SpO2 Temp src Heart Rate Source Patient Position 99 % -- -- -- BP Location FiO2 (%) -- -- Physical Exam Vitals and nursing note reviewed. Constitutional: General: She is not in acute distress. Appearance: She is well-developed. HENT: Head: Normocephalic and atraumatic. Eyes: Conjunctiva/sclera: Conjunctivae normal. Cardiovascular: Rate and Rhythm: Normal rate. Pulmonary: Effort: Pulmonary effort is normal. Musculoskeletal: General: Tenderness present. No swelling. Comments: Midline lumbar and coccyx tenderness, right paraspinal lumbar tenderness. 5 out of 5 strength in bilateral lower extremities, equal sensation in bilateral lower extremities Skin: General: Skin is warm and dry. Neurological: General: No focal deficit present. Mental Status: She is alert. Mental status is at baseline. Sensory: No sensory deficit. Motor: No weakness. Gait: Gait normal. Psychiatric: Mood and Affect: Mood normal. DIAGNOSTIC RESULTS Procedures/EKG: RADIOLOGY (Per Emergency Physician): Interpretation per the Radiologist below, if available at the time of this note: XR lumbar spine 2 or 3 views Final Result Spondylosis. No appreciable acute process. Report Dictated on Electronically Signed By: Slim Phelps MD Electronically Signed Date/Time: 03/30/2023 7:49 PM EST XR sacrum coccyx 2+ views Final Result Spondylosis. No appreciable acute process. Report Dictated on Electronically Signed By: Slim Phelps MD Electronically Signed Date/Time: 03/30/2023 7:49 PM EST ED BEDSIDE ULTRASOUND: Performed by ED Physician - none LABS: Labs Reviewed - No data to display All other labs were within normal range or not returned as of this dictation. EMERGENCY DEPARTMENT COURSE and DIFFERENTIAL DIAGNOSIS/MDM: Vitals: Vitals: 03/30/23 1811 BP: 110/76 Pulse: 98 Resp: 19 Temp: 36.4 C (97.5 F) SpO2: 99% ED Course as of 03/30/238 Sat Mar 30, 2023 1915 52-year-old presents emergency department today with lower back and tailbone pain after mechanical trip and fall today. She states she had a recent tailbone fracture and had already followed up with orthopedic surgery regarding this. It is best to have pain management follow-up in the near future but is only been taking naproxen at home for pain. On exam does have some right paraspinal lumbar tenderness as well as midline lumbar tenderness and sacral tenderness. No bowel or bladder incontinence or retention. Does have some paresthesias in right foot. Denies any weakness. On exam, equal strength and sensation in bilateral lower extremities. 5 out of 5 strength bilaterally. Will give oxycodone orally here for pain and obtain x-ray lumbar and sacrum and coccyx. [BM] 1951 Lumbar spine and coccyx x-ray showing no acute fracture. Will discharge home with short courseof pain control and outpatient follow-up with pain management. [BM] ED Course User Index [BM] Lilibeth Martinez DO Diagnoses as of 03/30/232107 Fall, initial encounter Chronic 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 EMERGENCY DEPARTMENT COURSE and DIFFERENTIAL DIAGNOSIS/MDM: Vitals: Vitals: 03/30/23 1811 BP: 110/76 Pulse: 98 Resp: 19 Temp: 36.4 C (97.5 F) SpO2: 99% The patient presented with a chief complaint of tailbone pain and low back pain. The differential diagnosis associated with this patient's presentation includes fracture, strain, bone bruising. Our workup consisted of ordering/reviewing lumbar x-ray, sacrum and coccyx x-ray. ED Course as of 03/30/232107 Sat Mar 30, 20231914 52-year-old presents emergency department today with lower back and tailbone pain after mechanical trip and fall today. She states she had a recent tailbone fracture and had already followed up with orthopedic surgery regarding this. It is best to have pain management follow-up in the near future but is only been taking naproxen at home for pain. On exam does have some right paraspinal lumbar tenderness as well as midline lumbar tenderness and sacral tenderness. No bowel or bladder incontinence or retention. Does have some paresthesias in right foot. Denies any weakness. On exam, equal strength and sensation in bilateral lower extremities. 5 out of 5 strength bilaterally. Will give oxycodone orally here for pain and obtain x-ray lumbar and sacrum and coccyx. [BM] 1951 Lumbar spine and coccyx x-ray showing no acute fracture. Will discharge home with short courseof pain control and outpatient follow-up with pain management. [BM] ED Course User Index [BM] Lilibeth Martinez DO Diagnoses as of 03/30/232107 Fall, initial encounter Chronic 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 External records reviewed: External ED note seen on 03/28/2023 by [facility] emergency department where she had been diagnosed with a chronic coccygeal pain Diagnostics interpreted by me: Xray(s) no acute fracture of lumbar or sacrum Discussions with other clinicians: none Chronic conditions impacting care: Recent coccyx fracture Social determinants of health affecting care: none ED Medications managed: Medications oxyCODONE (Roxicodone) immediate release tablet 10 mg (10 mg Oral Given 03/30/231932) Prescription drugs considered: Pain medication oxycodone p.o. as needed for 2 days Medications oxyCODONE (Roxicodone) immediate release tablet 10 mg (10 mg Oral Given 03/30/231932) REVAL: CRITICAL CARE TIME FINAL IMPRESSION 1. Fall, initial encounter 2. Chronic 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 DISPOSITION Discharge 03/30/2023 07:52:34 PM PATIENT REFERRED TO: Jaime Davis [address] [place] [address], [address] [facility] [address] In 1 week [facility] ED [address] [facility] [address] As needed, If symptoms worsen [facility] [address] [facility] [address] DISCHARGE MEDICATIONS: Discharge Medication List as of 03/30/2023 7:57 PM (Comment: Please note this report has been produced using speech recognition software and may contain errors related to that system including errors in grammar, punctuation, and spelling, as well as words and phrases that may be inappropriate. If there are any questions or concerns please feel freeto contact the dictating provider for clarification.) Lilibeth Martinez DO (electronically signed) Emergency Medicine Provider Lilibeth Martinez DO 03/30/232108 * Bridgette May RN - 03/30/2023 5:46 PM EST Pt presents with taibone pain after fall down one stair today. Pt c/o right foot numbness, denies loss of B/B. Pt reports she fractured her tailbone Dec 2022. Pt states the pain radiates down RLE andup spine. documented in this encounterSumma [id number] Emergency department Triage note* Bridgette May RN - 03/30/2023 5:46 PM EST Pt presents with taibone pain after fall down one stair today. Pt c/o right foot numbness, denies loss of B/B. Pt reports she fractured her tailbone Dec 2022. Pt states the pain radiates down RLE andup spine. [id number] Emergency department Note* Lilibeth Martinez DO - 03/30/2023 5:46 PM EST EMERGENCY DEPARTMENT ENCOUNTER Pt Name: Db Doan Birthdate 1970 Date of evaluation: 03/30/2023 ED Provider: Lilibeth Martinez DO CHIEF COMPLAINT Chief Complaint Patient presents with Fall Tailbone Pain HISTORY OF PRESENT ILLNESS (Location/Symptom, Timing/Onset, Context/Setting, Quality, Duration, Modifying Factors, Severity) Note limiting factors. I wore appropriate PPE for the entirety of this encounter. HPI 52-year-old presents emergency department today with lower back and tailbone pain after mechanical trip and fall today. She states she had a recent tailbone fracture and had already followed up with orthopedic surgery regarding this. It is best to have pain management follow-up in the near future but is only been taking naproxen at home for pain. 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 Limitations to history: None Outside historians: None REVIEW OF SYSTEMS Review of Systems Genitourinary: Negative for difficulty urinating. Musculoskeletal: Positive for back pain. Neurological: Negative for weakness. Right foot paresthesias Pertinent positives and negatives as per HPI. PAST MEDICAL HISTORY Past Medical History: Diagnosis Date H/O section Incomplete tear of left rotator cuff Sciatica Seizures (HCC) Spinal stenosis SURGICAL HISTORY Past Surgical History: Procedure Laterality Date HERNIA REPAIR CURRENT MEDICATIONS Discharge Medication List as of 03/30/2023 7:57 PM CONTINUE these medications which have NOT CHANGED Details DULoxetine (Cymbalta) [address] capsule Take 60 mg by mouth daily. Do not crush or chew., HistoricalMed lamoTRIgine (LaMICtal) 25 MG tablet Take 150 mg by mouth daily., Historical Med methocarbamol (Robaxin) 500 MG tablet Take 1 tablet (500 mg) by mouth 2 times daily for 10 days., Starting Sat09/21/2022, Until Sat10/01/2022, Print ALLERGIES Patient has no known allergies. FAMILY HISTORY No family history on file. SOCIAL HISTORY Social History Socioeconomic History Marital status: Single Tobacco Use Smoking status: Some Days Types: Cigarettes Smokeless tobacco: Never Vaping Use Vaping Use: Never used Substance and Sexual Activity Alcohol use: Never Drug use: Never SCREENINGS PHYSICAL EXAM ED Triage Vitals [03/30/23 1811] Temp Heart Rate Resp BP 36.4 C (97.5 F) 98 19 110/76 SpO2 Temp src Heart Rate Source Patient Position 99 % -- -- -- BP Location FiO2 (%) -- -- Physical Exam Vitals and nursing note reviewed. Constitutional: General: She is not in acute distress. Appearance: She is well-developed. HENT: Head: Normocephalic and atraumatic. Eyes: Conjunctiva/sclera: Conjunctivae normal. Cardiovascular: Rate and Rhythm: Normal rate. Pulmonary: Effort: Pulmonary effort is normal. Musculoskeletal: General: Tenderness present. No swelling. Comments: Midline lumbar and coccyx tenderness, right paraspinal lumbar tenderness. 5 out of 5 strength in bilateral lower extremities, equal sensation in bilateral lower extremities Skin: General: Skin is warm and dry. Neurological: General: No focal deficit present. Mental Status: She is alert. Mental status is at baseline. Sensory: No sensory deficit. Motor: No weakness. Gait: Gait normal. Psychiatric: Mood and Affect: Mood normal. DIAGNOSTIC RESULTS Procedures/EKG: RADIOLOGY (Per Emergency Physician): Interpretation per the Radiologist below, if available at the time of this note: XR lumbar spine 2 or 3 views Final Result Spondylosis. No appreciable acute process. Report Dictated on Electronically Signed By: Slim Phelps MD Electronically Signed Date/Time: 03/30/2023 7:49 PM EST XR sacrum coccyx 2+ views Final Result Spondylosis. No appreciable acute process. Report Dictated on Electronically Signed By: Slim Phelps MD Electronically Signed Date/Time: 03/30/2023 7:49 PM EST ED BEDSIDE ULTRASOUND: Performed by ED Physician - none LABS: Labs Reviewed - No data to display All other labs were within normal range or not returned as of this dictation. EMERGENCY DEPARTMENT COURSE and DIFFERENTIAL DIAGNOSIS/MDM: Vitals: Vitals: 03/30/231810 BP: 110/76 Pulse: 98 Resp: 19 Temp: 36.4 C (97.5 F) SpO2: 99% ED Course as of 03/30/232107 Sat Mar 30, 20231914 52-year-old presents emergency department today with lower back and tailbone pain after mechanical trip and fall today. She states she had a recent tailbone fracture and had already followed up with orthopedic surgery regarding this. It is best to have pain management follow-up in the near future but is only been taking naproxen at home for pain. On exam does have some right paraspinal lumbar tenderness as well as midline lumbar tenderness and sacral tenderness. No bowel or bladder incontinence or retention. Does have some paresthesias in right foot. Denies any weakness. On exam, equal strength and sensation in bilateral lower extremities. 5 out of 5 strength bilaterally. Will give oxycodone orally here for pain and obtain x-ray lumbar and sacrum and coccyx. [BM] 1951 Lumbar spine and coccyx x-ray showing no acute fracture. Will discharge home with short courseof pain control and outpatient follow-up with pain management. [BM] ED Course User Index [BM] Lilibeth Martinez DO Diagnoses as of 03/30/232107 Fall, initial encounter Chronic 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 EMERGENCY DEPARTMENT COURSE and DIFFERENTIAL DIAGNOSIS/MDM: Vitals: Vitals: 03/30/231810 BP: 110/76 Pulse: 98 Resp: 19 Temp: 36.4 C (97.5 F) SpO2: 99% The patient presented with a chief complaint of tailbone pain and low back pain. The differential diagnosis associated with this patient's presentation includes fracture, strain, bone bruising. Our workup consisted of ordering/reviewing lumbar x-ray, sacrum and coccyx x-ray. ED Course as of 03/30/232107 [facility] [place] Mar 30, 20231914 52-year-old presents emergency department today with lower back and tailbone pain after mechanical trip and fall today. She states she had a recent tailbone fracture and had already followed up with orthopedic surgery regarding this. It is best to have pain management follow-up in the near future but is only been taking naproxen at home for pain. On exam does have some right paraspinal lumbar tenderness as well as midline lumbar tenderness and sacral tenderness. No bowel or bladder incontinence or retention. Does have some paresthesias in right foot. Denies any weakness. On exam, equal strength and sensation in bilateral lower extremities. 5 out of 5 strength bilaterally. Will give oxycodone orally here for pain and obtain x-ray lumbar and sacrum and coccyx. [BM] 1951 Lumbar spine and coccyx x-ray showing no acute fracture. Will discharge home with short courseof pain control and outpatient follow-up with pain management. [BM] ED Course User Index [BM] Lilibeth Martinez DO Diagnoses as of 03/30/232107 Fall, initial encounter Chronic 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 External records reviewed: External ED note seen on 03/28/2023 by [facility] emergency department where she had been diagnosed with a chronic coccygeal pain Diagnostics interpreted by me: Xray(s) no acute fracture of lumbar or sacrum Discussions with other clinicians: none Chronic conditions impacting care: Recent coccyx fracture Social determinants of health affecting care: none ED Medications managed: Medications oxyCODONE (Roxicodone) immediate release tablet 10 mg (10 mg Oral Given 03/30/231932) Prescription drugs considered: Pain medication oxycodone p.o. as needed for 2 days Medications oxyCODONE (Roxicodone) immediate release tablet 10 mg (10 mg Oral Given 03/30/231932) REVAL: CRITICAL CARE TIME FINAL IMPRESSION 1. Fall, initial encounter 2. Chronic 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 DISPOSITION Discharge 03/30/2023 07:52:34 PM PATIENT REFERRED TO: Jaiem Davis [address] [place] [address], [address] [facility] [address] In 1 week [facility] ED [address] [facility] [address] As needed, If symptoms worsen [facility] [address] [place] [address] DISCHARGE MEDICATIONS: Discharge Medication List as of 03/30/2023 7:57 PM (Comment: Please note this report has been produced using speech recognition software and may contain errors related to that system including errors in grammar, punctuation, and spelling, as well as words and phrases that may be inappropriate. If there are any questions or concerns please feel freeto contact the dictating provider for clarification.) Lilibeth Martinez DO (electronically signed) Emergency Medicine Provider Lilibeth Martinez DO 03/30/232108 [id number] Emergency department Note* Saul Kuhn MD - 03/10/2023 4:32 AM EST HPI Chief Complaint Patient presents with Shoulder Injury Patient presents with shoulder pain. It appears that she has had this chronically. She describes pain in the left shoulder that radiates up into the left side of her neck and head. She denies any newinjury. She was seen at a [facility] facility. She had an x-ray at that time. She was told that there were no abnormalities. She has tried her home meloxicam without any relief. No elbow pain. Denies any fevers. [place] Coma Scale Score: 15 Patient History Past [...] ED Course & MDM Diagnoses as of 03/10/23514 Chronic left shoulder pain Medical Decision Making [...] follow-up. Procedure Procedures Saul Kuhn MD 03/10/23514 * Celeste Hurtado RN - 03/10/2023 4:32 AM EST Pt reports that she is having intense left shoulder pain. She has a hx of a rotator cuff tear and left shoulder fracture. Pt reports that she recently started working and has been lifting heavy boxesand felt a pop. [facility] Work Phone: 1(901) 118-425001-07-2024 Emergency department Triage note* Celeste Hurtado RN - 03/10/2023 4:32 AM EST Pt reports that she is having intense left shoulder pain. She has a hx of a rotator cuff tear and left shoulder fracture. Pt reports that she recently started working and has been lifting heavy boxesand felt a pop. [facility] Work Phone: 1(177) 498-989701-07-2024 Physician Emergency department Note* Saul Kuhn MD - 03/10/2023 4:32 AM EST HPI Chief Complaint Patient presents with Shoulder Injury Patient presents with shoulder pain. It appears that she has had this chronically. She describes pain in the left shoulder that radiates up into the left side of her neck and head. She denies any newinjury. She was seen at a [facility] facility. She had an x-ray at [...] Procedure Procedures Saul Kuhn MD 03/10/[address] [facility] Work Phone: 1(646) 352-644201-02-2024 Hospital Discharge instructions* Discharge Instructions* Lilibeth Martinez DO - 03/05/2023 5:55 PM EST Return for any new or concerning symptoms. Your workup here today including cardiac enzyme and testto rule out blood clot was negative. Chest x-ray also showed no evidence of collapsed lung or pneumonia. It was otherwise unremarkable. Take meloxicam or Motrin as needed for pain control. You can also try muscle relaxers such as your home Robaxin but NSAIDs will probably work better. * Attachments The following attachments cannot be sent through Care Everywhere. 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 I wore appropriate PPE for the entirety of this encounter. HPI 52-year-old female presents emergency department today with shortness of breath and chest discomfort on her right chest and midsternal region. She states he has a history of a lung collapse of 4 and pleurisy and is very anxious that this will happen again she is tearful on exam. 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 Limitations to history: None Outside historians: None REVIEW OF SYSTEMS Review of Systems Respiratory: Positive for shortness of breath. Negative for cough. Cardiovascular: Positive for chest pain. Pertinent positives and negatives as per HPI. PAST MEDICAL HISTORY Past Medical History: Diagnosis Date H/O section Incomplete tear of left rotator cuff Sciatica Seizures (HCC) Spinal stenosis SURGICAL HISTORY Past Surgical History: Procedure Laterality Date HERNIA REPAIR CURRENT MEDICATIONS Previous Medications DULOXETINE (CYMBALTA) [address] CAPSULE Take 60 mg by mouth daily. Do not crush or chew. LAMOTRIGINE (LAMICTAL) 25 MG TABLET Take 150 mg by mouth daily. METHOCARBAMOL (ROBAXIN) 500 MG TABLET Take 1 tablet (500 mg) by mouth 2 times daily for 10 days. OXYCODONE (ROXICODONE) 5 MG IMMEDIATE RELEASE TABLET Take 1 tablet (5 mg) by mouth every 6 hours asneeded for severe pain (7-10) for up to 3 doses. ALLERGIES Patient has no known allergies. FAMILY HISTORY No family history on file. SOCIAL HISTORY Social History Socioeconomic History Marital status: Single Tobacco Use Smoking status: Some Days Types: Cigarettes Smokeless tobacco: Never Vaping Use Vaping Use: Never used Substance and Sexual Activity Alcohol use: Never Drug use: Never SCREENINGS HEART Score History: Slightly suspicious ECG: Normal Age: 45-64 Risk Factors: No known risk factors Troponin: Less than or equal to normal limit HEART Score: 1 PHYSICAL EXAM ED Triage Vitals [03/05/23 1637] Temp Heart Rate Resp BP 36.4 C (97.6 F) 98 18 (!) 175/102 SpO2 Temp Source Heart Rate Source Patient Position 99 % Temporal Monitor -- BP Location FiO2 [...] distress. Breath sounds: Normal breath sounds. Abdominal: Tenderness: There is abdominal tenderness. Musculoskeletal: General: No swelling. Cervical back: Neck supple. Skin: General: Skin is warm and dry. Neurological: Mental Status: She is alert. Psychiatric: Mood and Affect: Mood is anxious. DIAGNOSTIC RESULTS Procedures/EKG: EKG was reviewed by myself. Physician EKG interpretation can be found in [facility] RADIOLOGY (Per Emergency Physician): Interpretation per the Radiologist below, if available at the time of this note: XR chest 1 view Final Result No acute cardiopulmonary process. Report Dictated on Electronically Signed By: Buck Ramsay MD Electronically Signed Date/Time: 03/05/2023 5:25 PM EST ED BEDSIDE ULTRASOUND: Performed by ED Physician - none LABS: Labs Reviewed BASIC METABOLIC PANEL - Abnormal Result Value SODIUM 137 POTASSIUM 3.9 CHLORIDE 103 CARBON DIOXIDE 25 UREA NITROGEN 14 CREATININE 0.57 GLUCOSE 114 (*) CALCIUM 9.1 ANION GAP 10 eGFR >90.0 CBC WITH AUTO DIFFERENTIAL - Abnormal Auto WBC 7.3 RBC 4.21 Hemoglobin 14.3 Hematocrit 40.1 MCV 95.3 MCH 33.9 MCHC 35.6 RDW 12.9 Platelets 446 (*) MPV 6.0 (*) nRBC 0.1 Neutrophils Relative 56.2 Lymphocytes Relative 34.6 Monocytes Relative 7.8 Eosinophils Relative 1.2 Basophils Relative 0.2 Neutrophils Absolute 4.1 Lymphocytes Absolute 2.5 Monocytes Absolute 0.6 Eosinophils Absolute 0.1 Basophils Absolute 0.0 TROPONIN I - Normal TROPONIN I <0.012 Narrative: Patients with high levels of Biotin oral intake (ie >5 mg/day) may have falsely decreased Troponin levels. D-DIMER,QUANTITATIVE - Normal D-DIMER, INNOVANCE 0.25 Narrative: Innovance D-Dimer values of <0.50 mg/L FEU can be used in combination with a pre-test probability model (e.g. Well's) to exclude pulmonary embolism (PE) disease, as well as an aid in the diagnosisof deep vein thrombosis (DVT). All other labs were within normal range or not returned as of this dictation. EMERGENCY DEPARTMENT COURSE and DIFFERENTIAL DIAGNOSIS/MDM: Vitals: Vitals: 03/05/23 1637 BP: (!) 175/102 Pulse: 98 Resp: 18 Temp: 36.4 C (97.6 F) TempSrc: Temporal SpO2: 99% ED Course as of 03/05/231816Mar 05, 20231700 52-year-old female presents emergency department today with shortness of breath and chest discomfort on her right chest and midsternal region. She states he has a history of a lung collapse of 4and pleurisy and is very anxious that this will happen again she is tearful on exam. On exam she ishypertensive to 175/102, vital signs otherwise stable saturating 100% on room air, lungs clear to auscultation bilaterally heart regular rate. Does not have any reproducible tenderness to palpation. Will obtain D-dimer and troponin to evaluate for ACS and PE. Will obtain chest x-ray to evaluate forpneumonia, pneumothorax. Will give Toradol for pain control. [BM] 175 Labs including CBC, BMP, troponin and D-dimer are all within normal limits. [BM] 175 Chest x-ray showing no acute cardiopulmonary process. Feel that she is safe for discharge homewith outpatient follow-up. Will discharge home with prescription for meloxicam. [BM] 181 Patient requesting [place] or Percocet prior to discharge. Will not give as she is driving home we will send a 2-day course to her pharmacy for pain management. Patient has history of pain seekingbehavior in the past, did have recent Percocet prescription filled with 30-day tablet so am hesitant to provide further opiate prescription outside of the short course. [BM] ED Course User Index [BM] Lilibeth Martinez DO Diagnoses as of 03/05/231816 Chest wall pain EMERGENCY DEPARTMENT COURSE and DIFFERENTIAL DIAGNOSIS/MDM: Vitals: Vitals: 03/05/23 1637 BP: (!) 175/102 Pulse: 98 Resp: 18 Temp: 36.4 C (97.6 F) TempSrc: Temporal SpO2: 99% The patient presented with a chief complaint of right-sided chest pain. The differential diagnosis associated with this patient's presentation includes pleuritis, ACS, PE, pneumothorax, pneumonia. Our workup consisted of ordering/reviewing CBC, BMP, troponin, D-dimer, chest x-ray. ED Course as of 03/05/231816Mar 05, 2023 170 52-year-old female presents emergency department today with shortness of breath and chest discomfort on her right chest and midsternal region. She states he has a history of a lung collapse of 4and pleurisy and is very anxious that this will happen again she is tearful on exam. On exam she ishypertensive to 175/102, vital signs otherwise stable saturating 100% on room air, lungs clear to auscultation bilaterally heart regular rate. Does not have any reproducible tenderness to palpation. Will obtain D-dimer and troponin to evaluate for ACS and PE. Will obtain chest x-ray to evaluate forpneumonia, pneumothorax. Will give Toradol for pain control. [BM] 1754 Labs including CBC, BMP, troponin and D-dimer are all within normal limits. [BM] 1754 Chest x-ray showing no acute cardiopulmonary process. Feel that she is safe for discharge homewith outpatient follow-up. Will discharge home with prescription for meloxicam. [BM] 1812 Patient requesting Grinnell or Percocet prior to discharge. Will not give as she is driving home we will send a 2-day course to her pharmacy for pain management. Patient has history of pain seekingbehavior in the past, did have recent Percocet prescription filled with 30-day tablet so am hesitant to provide further opiate prescription outside of the short course. [BM] ED Course User Index [BM] Lilibeth Martinez DO Diagnoses as of 03/05/231816 Chest wall pain Given that she is low risk heart score of 1 feel that she is appropriate for outpatient follow-up. External records reviewed: External ED note patient seen yesterday at [facility] emergency department for mechanical fall with left shoulder pain with negative shoulder x-ray. On record review it looks like patient has visited multiple ERs for left shoulder pain in the past which is chronic. Diagnostics interpreted by me: Xray(s) no acute cardiopulmonary process Discussions with other clinicians: none Chronic conditions impacting care: Pleurisy, chronic shoulder pain, anxiety Social determinants of health affecting care: none ED Medications managed: Medications ketorolac (Toradol) injection 30 mg (30 mg IntraVENous Given 03/05/231710) Prescription drugs considered: Pain medication meloxicam, 2 days of Percocet Medications ketorolac (Toradol) injection 30 mg (30 mg IntraVENous Given 03/05/231710) REVAL: CRITICAL CARE TIME FINAL IMPRESSION 1. Chest wall pain DISPOSITION Discharge 03/05/2023 05:54:41 PM PATIENT REFERRED TO: Jaime Davis [address], [address] [facility] [address] In 1 week [facility] ED [address] [facility] [address] As needed, If symptoms worsen DISCHARGE MEDICATIONS: New Prescriptions MELOXICAM (MOBIC) 15 MG TABLET Take 1 tablet (15 mg) by mouth daily for 10 days. OXYCODONE-ACETAMINOPHEN (PERCOCET) 5-325 MG TABLET Take 1 tablet by mouth every 6 hours as needed for severe pain (7-10) for up to 2 days. (Comment: Please note this report has been produced using speech recognition software and may contain errors related to that system including errors in grammar, punctuation, and spelling, as well as words and phrases that may be inappropriate. If there are any questions or concerns please feel freeto contact the dictating provider for clarification.) Lilibeth Martinez DO (electronically signed) Emergency Medicine Provider Lilibeth Martinez DO 03/05/23 1818 documented in this [facility] [place]01-02-2024 Physician Emergency department Note* Lilibeth Martinez DO - 03/05/2023 4:35 PM EST EMERGENCY DEPARTMENT ENCOUNTER Pt Name: Db Doan Birthdate 1970 Date of evaluation: 03/05/2023 ED Provider: Lilibeth Martinez DO CHIEF COMPLAINT Chief Complaint Patient presents with Shortness of Breath Pt comes to the ED today due to having a 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 I wore appropriate PPE for the entirety of this encounter. HPI 52-year-old female presents emergency department today with shortness of breath and chest discomfort on her right chest and midsternal region. She states he has a history of a lung collapse of 4 and pleurisy and is very anxious that this will happen again she is tearful on exam. 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 Limitations to history: None Outside historians: None REVIEW OF SYSTEMS Review of Systems Respiratory: Positive for shortness of breath. Negative for cough. Cardiovascular: Positive for chest pain. Pertinent positives and negatives as per HPI. PAST MEDICAL HISTORY Past Medical History: Diagnosis Date H/O section Incomplete tear of left rotator cuff Sciatica Seizures (HCC) Spinal stenosis SURGICAL HISTORY Past Surgical History: Procedure Laterality Date HERNIA REPAIR CURRENT MEDICATIONS Previous Medications DULOXETINE (CYMBALTA) [address] CAPSULE Take 60 mg by mouth daily. Do not crush or chew. LAMOTRIGINE (LAMICTAL) 25 MG TABLET Take 150 mg by mouth daily. METHOCARBAMOL (ROBAXIN) 500 MG TABLET Take 1 tablet (500 mg) by mouth 2 times daily for 10 days. OXYCODONE (ROXICODONE) 5 MG IMMEDIATE RELEASE TABLET Take 1 tablet (5 mg) by mouth every 6 hours asneeded for severe pain (7-10) for up to 3 doses. ALLERGIES Patient has no known allergies. FAMILY HISTORY No family history on file. SOCIAL HISTORY Social History Socioeconomic History Marital status: Single Tobacco Use Smoking status: Some Days Types: Cigarettes Smokeless tobacco: Never Vaping Use Vaping Use: Never used Substance and Sexual Activity Alcohol use: Never Drug use: Never SCREENINGS HEART Score History: Slightly suspicious ECG: Normal Age: 45-64 Risk Factors: No known risk factors Troponin: Less than or equal to normal limit HEART Score: 1 PHYSICAL EXAM ED Triage Vitals [03/05/23 1637] Temp Heart Rate Resp BP 36.4 C (97.6 F) 98 18 (!) 175/102 SpO2 Temp Source Heart Rate Source Patient Position 99 % Temporal Monitor -- BP Location FiO2 [...] distress. Breath sounds: Normal breath sounds. Abdominal: Tenderness: There is abdominal tenderness. Musculoskeletal: General: No swelling. Cervical back: Neck supple. Skin: General: Skin is warm and dry. Neurological: Mental Status: She is alert. Psychiatric: Mood and Affect: Mood is anxious. DIAGNOSTIC RESULTS Procedures/EKG: EKG was reviewed by myself. Physician EKG interpretation can be found in [facility] RADIOLOGY (Per Emergency Physician): Interpretation per the Radiologist below, if available at the time of this note: XR chest 1 view Final Result No acute cardiopulmonary process. Report Dictated on Electronically Signed By: Buck Ramsay MD Electronically Signed Date/Time: 03/05/2023 5:25 PM EST ED BEDSIDE ULTRASOUND: Performed by ED Physician - none LABS: Labs Reviewed BASIC METABOLIC PANEL - Abnormal Result Value SODIUM 137 POTASSIUM 3.9 CHLORIDE 103 CARBON DIOXIDE 25 UREA NITROGEN 14 CREATININE 0.57 GLUCOSE 114 (*) CALCIUM 9.1 ANION GAP 10 eGFR >90.0 CBC WITH AUTO DIFFERENTIAL - Abnormal Auto WBC 7.3 RBC 4.21 Hemoglobin 14.3 Hematocrit 40.1 MCV 95.3 MCH 33.9 MCHC 35.6 RDW 12.9 Platelets 446 (*) MPV 6.0 (*) nRBC 0.1 Neutrophils Relative 56.2 Lymphocytes Relative 34.6 Monocytes Relative 7.8 Eosinophils Relative 1.2 Basophils Relative 0.2 Neutrophils Absolute 4.1 Lymphocytes Absolute 2.5 Monocytes Absolute 0.6 Eosinophils Absolute 0.1 Basophils Absolute 0.0 TROPONIN I - Normal TROPONIN I <0.012 Narrative: Patients with high levels of Biotin oral intake (ie >5 mg/day) may have falsely decreased Troponin levels. D-DIMER,QUANTITATIVE - Normal D-DIMER, INNOVANCE 0.25 Narrative: Innovance D-Dimer values of <0.50 mg/L FEU can be used in combination with a pre-test probability model (e.g. Well's) to exclude pulmonary embolism (PE) disease, as well as an aid in the diagnosisof deep vein thrombosis (DVT). All other labs were within normal range or not returned as of this dictation. EMERGENCY DEPARTMENT COURSE and DIFFERENTIAL DIAGNOSIS/MDM: Vitals: Vitals: 03/05/23 1637 BP: (!) 175/102 Pulse: 98 Resp: 18 Temp: 36.4 C (97.6 F) TempSrc: Temporal SpO2: 99% ED Course as of 03/05/231816Mar 05, 20231700 52-year-old female presents emergency department today with shortness of breath and chest discomfort on her right chest and midsternal region. She states he has a history of a lung collapse of 4and pleurisy and is very anxious that this will happen again she is tearful on exam. On exam she ishypertensive to 175/102, vital signs otherwise stable saturating 100% on room air, lungs clear to auscultation bilaterally heart regular rate. Does not have any reproducible tenderness to palpation. Will obtain D-dimer and troponin to evaluate for ACS and PE. Will obtain chest x-ray to evaluate forpneumonia, pneumothorax. Will give Toradol for pain control. [BM] 175 Labs including CBC, BMP, troponin and D-dimer are all within normal limits. [BM] 1753 Chest x-ray showing no acute cardiopulmonary process. Feel that she is safe for discharge homewith outpatient follow-up. Will discharge home with prescription for meloxicam. [BM] 181 Patient requesting [place] or Percocet prior to discharge. Will not give as she is driving home we will send a 2-day course to her pharmacy for pain management. Patient has history of pain seekingbehavior in the past, did have recent Percocet prescription filled with 30-day tablet so am hesitant to provide further opiate prescription outside of the short course. [BM] ED Course User Index [BM] Lilibeth Martinez DO Diagnoses as of 03/05/231816 Chest wall pain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 (LAMICTAL) 25 MG TABLET Take 150 mg by mouth daily. METHOCARBAMOL (ROBAXIN) 500 MG TABLET Take 1 tablet (500 mg) by mouth 2 times daily for 10 days. NAPROXEN (NAPROSYN) 500 MG TABLET Take 1 tablet (500 mg) by mouth in the morning and 1 tablet (500 mg) in the evening. Take with meals. Do all this for 15 days. OXYCODONE (ROXICODONE) 5 MG IMMEDIATE RELEASE TABLET Take 1 tablet (5 mg) by mouth every 6 hours asneeded for severe pain (7-10) for up to 3 doses. ALLERGIES Patient has no known allergies. FAMILY HISTORY No family history on file. SOCIAL HISTORY Social History Socioeconomic History Marital status: Single Tobacco Use Smoking status: Some Days Types: Cigarettes Smokeless tobacco: Never Vaping Use Vaping Use: Never used Substance and Sexual Activity Alcohol use: Never Drug use: Never SCREENINGS PHYSICAL EXAM ED Triage Vitals [11/15/22 1540] Temp Heart Rate Resp BP 36.3 C (97.3 F) 87 16 (!) 128/90 SpO2 Temp Source Heart Rate Source Patient [...] There is no abdominal tenderness. Musculoskeletal: General: Tenderness present. No swelling. Cervical back: Neck supple. Comments: Tenderness of left anterior shoulder and decreased range of motion. Positive empty can test Skin: General: Skin is warm and dry. Capillary Refill: Capillary refill takes less than 2 seconds. Neurological: Mental Status: She is alert. Psychiatric: Mood and Affect: Mood normal. DIAGNOSTIC RESULTS RADIOLOGY (Per Emergency Physician): Interpretation per the Radiologist below, if available at the time of this note: XR shoulder 2+ views left Final Result No acute osseous abnormality. Report Dictated on Electronically Signed By: Ralph Lunsford MD Electronically Signed Date/Time: 11/15/2022 4:23 PM EDT EKG Interpretation: LABS: Labs Reviewed - No data to display All other labs were within normal range or not returned as of this dictation. EMERGENCY DEPARTMENT COURSE and DIFFERENTIAL DIAGNOSIS/MDM: Vitals: Vitals: 11/15/22 1540 BP: (!) 128/90 Pulse: 87 Resp: 16 Temp: 36.3 C (97.3 F) TempSrc: Temporal SpO2: 96% Medications Administered in the ED: Medications oxyCODONE-acetaminophen (Percocet) 5-325 MG per tablet 1 tablet (1 tablet Oral Incomplete 11/15/22 1644) ketorolac (Toradol) injection 15 mg (15 mg IntraMUSCular Given 11/15/22 1622) Patient presents with acute on chronic left shoulder pain after injury PROCEDURES: Unless otherwise noted below, none Procedures Differential Diagnosis Considerations: Fracture, dislocation, tendon injury, rotator cuff injury Sources of History: Patient ED Course: On arrival vital signs normal and stable. Has decreased range of motion as expected with previous rotator cuff injury as well as positive empty can testing. X-rays were obtained and negative per radiology. Was given Toradol as well as Percocet for pain control. Will not discharge with anything as she has already taking pain medicine at home and will have her follow-up with her current providers Reassessment: None Consideration of Admission/Observation: none Independent Interpretation of Tests: none Diagnostic Tests Considered but not Performed: none Prescription Medications Considered but not Prescribed: none Chronic Conditions Affecting Care: none FINAL IMPRESSION 1. Left shoulder pain, unspecified chronicity DISPOSITION Discharge 11/15/2022 04:40:56 PM PATIENT REFERRED TO: Jaime Davis [address] [place] [address], [place] [address] DISCHARGE MEDICATIONS: New Prescriptions No medications on file (Comment: Please note this report has been produced using speech recognition software and may contain errors related to that system including errors in grammar, punctuation, and spelling, as well as words and phrases that may be inappropriate. If there are any questions or concerns please feel freeto contact the dictating provider for clarification.) Tapan Bacon MD (electronically signed) Emergency Medicine Provider [facility] Tapan Bacon MD 11/15/226 documented in this [facility]09-14-2023 Physician Emergency department Note* Tapan Bacon MD - 11/15/2022 3:37 PM EDT EMERGENCY DEPARTMENT ENCOUNTER Pt Name: Db Doan Birthdate 1970 Date of evaluation: 11/15/2022 ED Provider: Tapan Bacon MD CHIEF COMPLAINT Chief Complaint Patient presents with Shoulder Pain Pt coming in for left shoulder pain since falling onto it last night. Has hx of tear in rotator cuff so ortho recommended she be seen for x rays HISTORY OF PRESENT ILLNESS I wore appropriate PPE for the entirety of this encounter. HPI Db Doan is a 52 y.o. person who presents to the emergency department with concern for left shoulder pain. Patient has a history of ankylosing spondylitis and had recent MRI. Is following with pain management next week as well asPhysical therapy for her left shoulder issue that she is been dealing with for the last month after she had fallen on it. Was told she had a rotator cuff injury and is following with orthopedic surgery. Yesterday she tripped and fell onto her left shoulder with hyperextension. Denies any new or worsening numbness or tingling but has some limited range of motion. Told by orthopedic surgery to follow-up for possible injury Nursing Notes were reviewed. Limitations to history: None Outside historians: None REVIEW OF SYSTEMS Review of Systems Musculoskeletal: Positive for arthralgias. PAST MEDICAL HISTORY Past Medical History: Diagnosis Date H/O section Incomplete tear of left rotator cuff Sciatica Seizures (HCC) Spinal stenosis SURGICAL HISTORY Past Surgical History: Procedure Laterality Date HERNIA REPAIR CURRENT MEDICATIONS Previous Medications DULOXETINE (CYMBALTA) [address] CAPSULE Take 60 mg by mouth daily. Do not crush or chew. LAMOTRIGINE (LAMICTAL) 25 MG TABLET Take 150 mg by mouth daily. METHOCARBAMOL (ROBAXIN) 500 MG TABLET Take 1 tablet (500 mg) by mouth 2 times daily for 10 days. NAPROXEN (NAPROSYN) 500 MG TABLET Take 1 tablet (500 mg) by mouth in the morning and 1 tablet (500 mg) in the evening. Take with meals. Do all this for 15 days. OXYCODONE (ROXICODONE) 5 MG IMMEDIATE RELEASE TABLET Take 1 tablet (5 mg) by mouth every 6 hours asneeded for severe pain (7-10) for up to 3 doses. ALLERGIES Patient has no known allergies. FAMILY HISTORY No family history on file. SOCIAL HISTORY Social History Socioeconomic History Marital status: Single Tobacco Use Smoking status: Some Days Types: Cigarettes Smokeless tobacco: Never Vaping Use Vaping Use: Never used Substance and Sexual Activity Alcohol use: Never Drug use: Never SCREENINGS PHYSICAL EXAM ED Triage Vitals [11/15/22 1540] Temp Heart Rate Resp BP 36.3 C (97.3 F) 87 16 (!) 128/90 SpO2 Temp Source Heart Rate Source Patient [...] There is no abdominal tenderness. Musculoskeletal: General: Tenderness present. No swelling. Cervical back: Neck supple. Comments: Tenderness of left anterior shoulder and decreased range of motion. Positive empty can test Skin: General: Skin is warm and dry. Capillary Refill: Capillary refill takes less than 2 seconds. Neurological: Mental Status: She is alert. Psychiatric: Mood and Affect: Mood normal. DIAGNOSTIC RESULTS RADIOLOGY (Per Emergency Physician): Interpretation per the Radiologist below, if available at the time of this note: XR shoulder 2+ views left Final Result No acute osseous abnormality. Report Dictated on Electronically Signed By: Ralph Lunsford MD Electronically Signed Date/Time: 11/15/2022 4:23 PM EDT EKG Interpretation: LABS: Labs Reviewed - No data to display All other labs were within normal range or not returned as of this dictation. EMERGENCY DEPARTMENT COURSE and DIFFERENTIAL DIAGNOSIS/MDM: Vitals: Vitals: 11/15/22 1540 BP: (!) 128/90 Pulse: 87 Resp: 16 Temp: 36.3 C (97.3 F) TempSrc: Temporal SpO2: 96% Medications Administered in the ED: Medications oxyCODONE-acetaminophen (Percocet) 5-325 MG per tablet 1 tablet (1 tablet Oral Incomplete 11/15/22 1644) ketorolac (Toradol) injection 15 mg (15 mg IntraMUSCular Given 11/15/22 1622) Patient presents with acute on chronic left shoulder pain after injury PROCEDURES: Unless otherwise noted below, none Procedures Differential Diagnosis Considerations: Fracture, dislocation, tendon injury, rotator cuff injury Sources of History: Patient ED Course: On arrival vital signs normal and stable. Has decreased range of motion as expected with previous rotator cuff injury as well as positive empty can testing. X-rays were obtained and negative per radiology. Was given Toradol as well as Percocet for pain control. Will not discharge with anything as she has already taking pain medicine at home and will have her follow-up with her current providers Reassessment: None Consideration of Admission/Observation: none Independent Interpretation of Tests: none Diagnostic Tests Considered but not Performed: none Prescription Medications Considered but not Prescribed: none Chronic Conditions Affecting Care: none FINAL IMPRESSION 1. Left shoulder pain, unspecified chronicity DISPOSITION Discharge 11/15/2022 04:40:56 PM PATIENT REFERRED TO: Jaime Davis [address] [place] [address], [address] [place] [address] DISCHARGE MEDICATIONS: New Prescriptions No medications on file (Comment: Please note this report has been produced using speech recognition software and may contain errors related to that system including errors in grammar, punctuation, and spelling, as well as words and phrases that may be inappropriate. If there are any questions or concerns please feel freeto contact the dictating provider for clarification.) Tapan Bacon MD (electronically signed) Emergency Medicine Provider [facility] Tapan Bacon MD 11/15/221645 [id number] History of Present illness Narrative* Gallo Chandra [...] 2022 TIME: 4:46 PM documented in this encounter09-08-2023 Emergency department Note * Joe Garrison MD - 11/09/2022 6:01 AM EDT Emergency Department Encounter [facility] ED Patient: Db Doan : 1970 Date of Evaluation: 11/09/2022 ED Provider: JOE GARRISON MD I saw the patient as the Clinician in Triage and performed a brief history and physical exam, established acuity, and ordered appropriate tests to develop basic plan of care. Patient will be seen by SURINDER, resident and/or my physician partner who will evaluate the patient. If seen by the SURINDER I will manage the patient in a supervisory role and will be available for co-management and this will serve as my SURINDER Supervisory note as the painter set of record and shared attestation. I did perform a substantive portion of the visit including all aspects of the Medical Decision Making. Brief HPI: In brief, Db Doan is a 52 y.o. female that presents for evaluation of a left shoulder injury. Has a known history of ankylosing spondylosis and rotator cuff injury involving that leftshoulder. She fell 2 or 3 days ago and reinjured the left shoulder and has had worse pain since. No numbness or weakness. Focused Physical exam: Patient has diffuse tenderness of the left shoulder. No specific tenderness of the left clavicle. No C-spine tenderness. Radial, median, ulnar nerve distribution strength and sensation to light touch intact. 2+ radial pulse. Plan/MDM: Likely further injury of the left rotator cuff but will obtain an x- ray of the shoulder to ensure no evidence of fracture. Please see subsequent provider note for further details and disposition MD Joe Serrano MD 11/09/22 0640 * Edgardo Bedoya MD - 11/09/2022 6:01 AM EDT [facility] ED EMERGENCY DEPARTMENT ENCOUNTER Pt Name: Db Doan Birthdate 1970 Date of evaluation: 11/09/2022 Provider: Edgardo Bedoya MD CHIEF COMPLAINT Chief Complaint Patient presents with Shoulder Injury Fell 3-4 days ago and injured her left shoulder, pain 10/10 raduiating to neck. HX rotator cuff tear from a month ago. Called her ortho doc, miryam davis and was told to come to ED HISTORY OF PRESENT ILLNESS (Location/Symptom, Timing/Onset,Context/Setting, Quality, Duration, Modifying Factors, Severity) Note limiting factors. HPI Db Doan is a 52 y.o. female who presents to the emergency department with left shoulder pain. She has chronic pain issues in her spine, hips, other joints, she is seeing orthopedics and rheumatology, she has an appointment with pain management later in the month. Recently diagnosed with left shoulder rotator cuff injury but has not had MRI, is getting physical therapy which is causing pain, minor reinjury 2 days ago, seen by the night physician that x-ray is pending . Patient has poor range of motion of the left shoulder, no obvious deformity or effusion noted, no redness noted, no swelling in the arm, neurovascular intact, no neck injury noted Nursing Notes were reviewed. REVIEW OF SYSTEMS Review of Systems Pertinent positives and negatives as per HPI. PAST MEDICAL HISTORY Past Medical History: Diagnosis Date H/O section Incomplete tear of left rotator cuff Sciatica Seizures (HCC) Spinal stenosis SURGICAL HISTORY Past Surgical History: Procedure Laterality Date HERNIA REPAIR CURRENT MEDICATIONS Current Discharge Medication List CONTINUE these medications which have NOT CHANGED Details DULoxetine (Cymbalta) [address] capsule Take 60 mg by mouth daily. Do not crush or chew. lamoTRIgine (LaMICtal) 25 MG tablet Take 150 mg by mouth daily. methocarbamol (Robaxin) 500 MG tablet Take 1 tablet (500 mg) by mouth 2 times daily for 10 days. Qty: 20 tablet, Refills: 0 oxyCODONE (Roxicodone) 5 MG immediate release tablet Take 1 tablet (5 mg) by mouth every 6 hours asneeded for severe pain (7-10) for up to 3 doses. Qty: 3 tablet, Refills: 0 Comments: ICD10: M54.5 AMANDA: [id number] Associated Diagnoses: Low back pain, unspecified back pain laterality, unspecified chronicity, unspecified whether sciatica present ALLERGIES Patient has no known allergies. FAMILY HISTORY No family history on file. SOCIAL HISTORY Social History Socioeconomic History Marital status: Single Tobacco Use Smoking status: Some Days Types: Cigarettes Smokeless tobacco: Never Vaping Use Vaping Use: Never used Substance and Sexual Activity Alcohol use: Never Drug use: Never SCREENINGS PHYSICAL EXAM @EDTRIAGEVSS@ Physical Exam DIAGNOSTIC RESULTS EKG (Per my interpretation): (See Epiphany for full interpretation.0 RADIOLOGY: Interpretation per the Radiologist below, if available at the time of this note: XR shoulder 2+ views left Final Result Mild arthritic changes at the AC joint. No acute process. Report Dictated on Electronically Signed By: Sandeep Medina DO Electronically Signed Date/Time: 11/09/2022 7:06 AM EDT LABS: Labs Reviewed - No data to display All other labs were within normal range or not returned as of this dictation. EMERGENCY DEPARTMENT COURSE and DIFFERENTIAL DIAGNOSIS/MDM: Vitals: Vitals: 11/09/22 0608 11/09/22 0609 BP: (!) 146/99 Pulse: 96 Resp: 19 SpO2: 99% Weight: 62 kg (136 lb 11 oz) The patient presented with a chief complaint of shoulder pain. The differential diagnosis associated with this patient's presentation includes strain versus sprain, rotator cuff injury, fracture, etc. Our workup consisted of ordering/reviewing shoulder x-ray. Diagnoses as of 11/09/22 0729 Shoulder strain, left, initial encounter Diagnostic tests considered but not performed: Advanced imaging like MRI may be indicated but not emergently External records reviewed: Diagnostics interpreted by me: Shoulder x-ray per my interpretation shows normal bony anatomy, Discussions with other clinicians: Chronic conditions impacting care: Underlying rheumatologic pain Social determinants of health affecting care: ED Medications managed: Medications oxyCODONE-acetaminophen (Percocet) 5-325 MG per tablet 1 tablet (1 tablet Oral Given 11/09/22 0650) Prescription drugs considered: Prescription naproxen RECHECKS AND ADDITIONAL CARE: We will discharge with follow-up to her specialist, we will not put her in a shoulder sling at thistime for concern of restricted range of motion already present getting worse with strict immobilization Diagnoses as of 11/09/22 0729 Shoulder strain, left, initial encounter PROCEDURES: Unless otherwise noted below, none Procedures CRITICAL CARE TIME FINAL IMPRESSION 1. Shoulder strain, left, initial encounter DISPOSITION/PLAN Discharge 11/09/2022 07:26:17 AM REFERRED TO: Your orthopedist, your environmental communications specialist, or your pain specialist As scheduled and for ongoing care of this shoulder condition DISCHARGE MEDICATIONS: Current Discharge Medication List START taking these medications Details naproxen (Naprosyn) 500 MG tablet Take 1 tablet (500 mg) by mouth in the morning and 1 tablet (500 mg) in the evening. Take with meals. Do all this for 15 days. Qty: 30 tablet, Refills: 0 (Please note: Portions of this note were completed with a voice recognition program. Efforts were made to edit the dictations but occasionally words and phrases are mis-transcribed.) [email or web address] Edgardo Bedoya MD (electronically signed) Emergency Medicine Provider Edgardo Bedoya MD 11/09/22729 documented in this [facility] [place]09-08-2023 Physician Emergency department Note* Joe Garrison MD - 11/09/2022 6:01 AM EDT Emergency Department Encounter [facility] ED Patient: Db Doan : 1970 Date of Evaluation: 11/09/2022 ED Provider: JOE GARRISON MD I saw the patient as the Clinician in Triage and performed a brief history and physical exam, established acuity, and ordered appropriate tests to develop basic plan of care. Patient will be seen by SURINDER, resident and/or my physician partner who will evaluate the patient. If seen by the SURINDER I will manage the patient in a supervisory role and will be available for co-management and this will serve as my SURINDER Supervisory note as the painter set of record and shared attestation. I did perform a substantive portion of the visit including all aspects of the Medical Decision Making. Brief HPI: In brief, Db Doan is a 52 y.o. female that presents for evaluation of a left shoulder injury. Has a known history of ankylosing spondylosis and rotator cuff injury involving that leftshoulder. She fell 2 or 3 days ago and reinjured the left shoulder and has had worse pain since. No numbness or weakness. Focused Physical exam: Patient has diffuse tenderness of the left shoulder. No specific tenderness of the left clavicle. No C-spine tenderness. Radial, median, ulnar nerve distribution strength and sensation to light touch intact. 2+ radial pulse. Plan/MDM: Likely further injury of the left rotator cuff but will obtain an x- ray of the shoulder to ensure no evidence of fracture. Please see subsequent provider note for further details and disposition MD Joe Serrano MD 11/09/22 0640 [employer] Phone: 1(720) 892-663209-08-2023 Physician Emergency department Note* Edgardo Bedoya MD - 11/09/2022 6:01 AM EDT [facility] ED EMERGENCY DEPARTMENT ENCOUNTER Pt Name: Db Doan Birthdate 1970 Date of evaluation: 11/09/2022 Provider: Edgardo Bedoya MD CHIEF COMPLAINT Chief Complaint Patient presents with Shoulder Injury Fell 3-4 days ago and injured her left shoulder, pain 10/10 raduiating to neck. HX rotator cuff tear from a month ago. Called her ortho doc, miryam davis and was told to come to ED HISTORY OF PRESENT ILLNESS (Location/Symptom, Timing/Onset,Context/Setting, Quality, Duration, Modifying Factors, Severity) Note limiting factors. HPI Db Doan is a 52 y.o. female who presents to the emergency department with left shoulder pain. She has chronic pain issues in her spine, hips, other joints, she is seeing orthopedics and rheumatology, she has an appointment with pain management later in the month. Recently diagnosed with left shoulder rotator cuff injury but has not had MRI, is getting physical therapy which is causing pain, minor reinjury 2 days ago, seen by the night physician that x-ray is pending . Patient has poor range of motion of the left shoulder, no obvious deformity or effusion noted, no redness noted, no swelling in the arm, neurovascular intact, no neck injury noted Nursing Notes were reviewed. REVIEW OF SYSTEMS Review of Systems Pertinent positives and negatives as per HPI. PAST MEDICAL HISTORY Past Medical History: Diagnosis Date H/O section Incomplete tear of left rotator cuff Sciatica Seizures (HCC) Spinal stenosis SURGICAL HISTORY Past Surgical History: Procedure Laterality Date HERNIA REPAIR CURRENT MEDICATIONS Current Discharge Medication List CONTINUE these medications which have NOT CHANGED Details DULoxetine (Cymbalta) [address] capsule Take 60 mg by mouth daily. Do not crush or chew. lamoTRIgine (LaMICtal) 25 MG tablet Take 150 mg by mouth daily. methocarbamol (Robaxin) 500 MG tablet Take 1 tablet (500 mg) by mouth 2 times daily for 10 days. Qty: 20 tablet, Refills: 0 oxyCODONE (Roxicodone) 5 MG immediate release tablet Take 1 tablet (5 mg) by mouth every 6 hours asneeded for severe pain (7-10) for up to 3 doses. Qty: 3 tablet, Refills: 0 Comments: ICD10: M54.5 AMANDA: [id number] Associated Diagnoses: Low back pain, unspecified back pain laterality, unspecified chronicity, unspecified whether sciatica present ALLERGIES Patient has no known allergies. FAMILY HISTORY No family history on file. SOCIAL HISTORY Social History Socioeconomic History Marital status: Single Tobacco Use Smoking status: Some Days Types: Cigarettes Smokeless tobacco: Never Vaping Use Vaping Use: Never used Substance and Sexual Activity Alcohol use: Never Drug use: Never SCREENINGS PHYSICAL EXAM @EDTRIAGEVSS@ Physical Exam DIAGNOSTIC RESULTS EKG (Per my interpretation): (See Epiphany for full interpretation.0 RADIOLOGY: Interpretation per the Radiologist below, if available at the time of this note: XR shoulder 2+ views left Final Result Mild arthritic changes at the AC joint. No acute process. Report Dictated on Electronically Signed By: Sandeep Medina DO Electronically Signed Date/Time: 11/09/2022 7:06 AM EDT LABS: Labs Reviewed - No data to display All other labs were within normal range or not returned as of this dictation. EMERGENCY DEPARTMENT COURSE and DIFFERENTIAL DIAGNOSIS/MDM: Vitals: Vitals: 11/09/2260711/09/22608 BP: (!) 146/99 Pulse: 96 Resp: 19 SpO2: 99% Weight: 62 kg (136 lb 11 oz) The patient presented with a chief complaint of shoulder pain. The differential diagnosis associated with this patient's presentation includes strain versus sprain, rotator cuff injury, fracture, etc. Our workup consisted of ordering/reviewing shoulder x-ray. Diagnoses as of 11/09/22728 Shoulder strain, left, initial encounter Diagnostic tests considered but not performed: Advanced imaging like MRI may be indicated but not emergently External records reviewed: Diagnostics interpreted by me: Shoulder x-ray per my interpretation shows normal bony anatomy, Discussions with other clinicians: Chronic conditions impacting care: Underlying rheumatologic pain Social determinants of health affecting care: ED Medications managed: Medications oxyCODONE-acetaminophen (Percocet) 5-325 MG per tablet 1 tablet (1 tablet Oral Given 11/09/22649) Prescription drugs considered: Prescription naproxen RECHECKS AND ADDITIONAL CARE: We will discharge with follow-up to her specialist, we will not put her in a shoulder sling at thistime for concern of restricted range of motion already present getting worse with strict immobilization Diagnoses as of 11/09/22728 Shoulder strain, left, initial encounter PROCEDURES: Unless otherwise noted below, none Procedures CRITICAL CARE TIME FINAL IMPRESSION 1. Shoulder strain, left, initial encounter DISPOSITION/PLAN Discharge 11/09/2022 07:26:17 AM REFERRED TO: Your orthopedist, your environmental communications specialist, or your pain specialist As scheduled and for ongoing care of this shoulder condition DISCHARGE MEDICATIONS: Current Discharge Medication List START taking these medications Details naproxen (Naprosyn) 500 MG tablet Take 1 tablet (500 mg) by mouth in the morning and 1 tablet (500 mg) in the evening. Take with meals. Do all this for 15 days. Qty: 30 tablet, Refills: 0 (Please note: Portions of this note were completed with a voice recognition program. Efforts were made to edit the dictations but occasionally words and phrases are mis-transcribed.) [email or web address] Edgardo Bedoya MD (electronically signed) Emergency Medicine Provider Edgardo Bedoya MD 11/09/22729 [id number]charge [facility]* Discharge Instructions* Venecia Bacon MD - 10/31/2022 8:48 AM EDT Procedures done during this visit: None * Attachments The following attachments cannot be sent through Care Everywhere. 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 She was referred by Jeri Mendes DO (Rheumatology) [address] [facility] [address]. This consultation was shared with the referral source via the electronic medical record. The patient understanding of [...] Tendinopathy of gluteus medius (R53.81) Physical deconditioning Dbsandhya Doan is a 52 year old female [...] her spine medicine physician Dr. Gallagher in [place], [place] and has undergone multiple left SI joint and left hip injections without any relief. Goes to the emergency room regularly with concern for falls and significant, debilitating low back pain. Hasonly found relief with Grinnell or Percocet, no previous relief noted with [...] suspiciousactivity was identified. 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 Discussed participation in the [facility] (CPNP) and /or [...] was ordered. Patient was given the number ([phone]) to call and schedule appointment. Discussed ketamine infusions for chronic pain. Patient is interested, order placed. It was explained that a shared medical appointment (SMA) would be scheduled prior to the ketamine infusion to obtain current weight, answer questions and orient them to the treatment team. Patient understands a speedboat driver is required for the procedure who [...] which included preparing to see the patient, [id number] patient care, completing clinical documentation, obtaining and/or reviewing separately obtained history, performing a medically appropriate examination, counseling and educating the pat ient/family/caregiver, and ordering medications, tests, or procedures. Mariam Stoll APRN.JEANNETTE GOVEA documented in this encounter08-21-2023 Instructions* Patient Instructions* Jeri Mendes DO - [...] based on work up documented in this encounter08-21-2023 History of Present illness Narrative* Jeri Mendes DO - 10/22/2022 9:04 AM EDT Images from the original note were not included. Rheumatology Outpatient Clinic Date of Service: 10/22/2022 Patient: Db Doan Medical Record: [id number] Primary Care Physician: Jessenia Miller Last Rheumatology visit: None at History of Present Illness Db Doan is [...] her spine medicine physician Dr. Gallagher in [place], [place] and has undergone multiple left SI joint and left hip injections without any relief. Goes to the emergency room regularly with concern for falls and significant, debilitating low back pain. Hasonly found relief with Grinnell or Percocet, no previous relief noted with [...] her spine medicine physician Dr. Gallagher in [place], [place] and has undergone multiple left SI joint and left hip injections without any relief. Goes to the emergency room regularly with concern for falls and significant, debilitating low back pain. Hasonly found relief with Grinnell or Percocet, no previous relief noted with [...] which included preparing to see the patient, [id number] patient care, completing clinical documentation, obtaining and/or reviewing separately obtained history, performing a medically appropriate examination, counseling and educating the pat ient/family/caregiver, ordering medications, tests, or procedures, and communicating results to thepatient/family/caregiver. Jeri Mendes DO Rheumatology Date: October 22, 2022 Time: 9:05 AM documented in this encounter07-26-2023 Emergency department Note * Lucy Momin RN - 09/26/2022 2:49 PM EDT Bed: 23 Expected date: Expected time: Means of arrival: Comments: Lucy Momin RN 09/26/22 [id number] Emergency department Note* Matt Rosado MD - 09/26/2022 2:49 PM EDT Emergency Department Encounter [facility] EMERGENCY DEPT Patient: Db Doan : 1970 Date of Evaluation: 09/26/2022 ED Provider: Matt Rosado MD I saw the patient as the Clinician in Triage and performed a brief history and physical exam, established acuity, and ordered appropriate tests to develop basic plan of care. Patient will be seen by SURINDER, resident and/or my physician partner who will evaluate the patient. If seen by the SURINDER I will manage the patient in a supervisory role and will be available for co-management. I did perform a substantive portion of the visit including all aspects of the Medical Decision Making. I wore appropriate PPE for the entirety of this encounter. Brief HPI: In brief, Db Doan is a 52 y.o. that presents with chief complaint of fall and hitting her head. States she did not lose consciousness. States she has chronic back pain due to ankylosing spondylitis. This is causing her to shuffle her feet and made her fall. States her legs are giving out. States she feels generally weak. Focused Physical exam: Awake and alert. Afebrile. Nontoxic. She has bruising to the left forehead area. No palpable step-off. Patient has abrasions to her bilateral knees. Neurologic exam has no gross focal deficits. Plan/MDM: CT head is obtained. Patient's back pain is chronic. Her exam does not show any focal neurologic deficits Patients symptoms are consistent with sepsis, severe sepsis, or septic shock (If yes use .sepsiscoremeasure): no Please see subsequent provider note for further details and disposition (Comment: Please note this report has been produced using speech recognition software and may contain errors related to that system including errors in grammar, punctuation, and spelling as well as words and phrases that may be inappropriate. If there are any questions or concerns please feel free to contact the dictating provider for clarification) Matt Rosado MD [employer] Matt Rosado MD 09/26/222000 * KRYSTAL Santana CNP - 09/26/2022 2:49 PM EDT EMERGENCY DEPARTMENT ENCOUNTER Pt Name: Db Doan Birthdate 1970 Date of evaluation: 09/26/2022 ED Provider: KRYSTAL Santana CNP I have evaluated this patient on my own, per my scope of practice with an attending physician available for consultation. CHIEF COMPLAINT Chief Complaint Patient presents with Fall Pt presents to ED with c/o fall this afternoon, hit her head on wall, denies LOC, - thinners. Pt explains she has spinal fusions and stenosis and legs have been giving out HISTORY OF PRESENT ILLNESS (Location/Symptom, Timing/Onset, Context/Setting, Quality, Duration, Modifying Factors, Severity) Note limiting factors. I wore appropriate PPE for the entirety of this encounter. HPI Db Doan is a 52 y.o. who presents to the emergency department with chief complaint of being that her legs been giving out and she has been having frequent falls. This is an ongoing issue I had seen this patient September 16 for a similar issue. At that time I had made note that since beginning of June the patient had been seen over 20 times in multiple ERs, this included [facility], [facility], [facility], [facility], [facility], [facility], [facility], [facility], [facility], [facility], these are only the places that I can see in care everywhere. Patient tells me she has a history of spinal stenosis and ankylosing spondylitis however she has had multiple imaging studies done over the last 5 months and had an MRI of the lumbar spine which showed no abnormalities and no spinal stenosis on August 17 of this year she is also had CTs of the cervical and thoracic spine which were unremarkable in August of this year. She states she is now seeing a neurosurg gabriel in [place] who is having her do physical therapy, she also alleges that she has seen pain management in [place]. Patient was seen here on 21 September, seen here yesterday, also had a visit in [place] yesterday and today went to [facility] and then presented again here. She states this time her legs gave out and she hit her head on the wall she was already seen at [facility] had a CT of the head was unremarkable there was no loss of consciousness she denies any neck pain she is not on blood thinners. 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 Limitations to history: None Outside historians: None REVIEW OF SYSTEMS Review of Systems Constitutional: Negative for activity change, appetite change, chills and fever. HENT: Negative for congestion, nosebleeds, sinus pain and trouble swallowing. Eyes: Negative for pain and visual disturbance. Respiratory: Negative for cough, chest tightness and shortness of breath. Cardiovascular: Negative for chest pain. Gastrointestinal: Negative for abdominal pain, diarrhea, nausea and vomiting. Genitourinary: Negative for dysuria, hematuria, pelvic pain, vaginal bleeding, vaginal discharge and vaginal pain. Musculoskeletal: Positive for arthralgias and myalgias. Negative for back pain, joint swelling and neck stiffness. Skin: Positive for wound. Negative for pallor and rash. Neurological: Positive for headaches. Negative for seizures, syncope, speech difficulty, weakness and light-headedness. Hematological: Negative for adenopathy. Psychiatric/Behavioral: Negative for agitation and confusion. All other systems reviewed and are negative. Pertinent positives and negatives as per HPI. PAST MEDICAL HISTORY Past Medical History: Diagnosis Date Sciatica Seizures (HCC) Spinal stenosis SURGICAL HISTORY History reviewed. No pertinent surgical history. CURRENT MEDICATIONS Previous Medications METHOCARBAMOL (ROBAXIN) 500 MG TABLET Take 1 tablet (500 mg) by mouth 2 times daily for 10 days. OXYCODONE (ROXICODONE) 5 MG IMMEDIATE RELEASE TABLET Take 1 tablet (5 mg) by mouth every 6 hours asneeded for severe pain (7-10) for up to 3 doses. ALLERGIES Patient has no known allergies. FAMILY HISTORY No family history on file. SOCIAL HISTORY Social History Socioeconomic History Marital status: Unknown Tobacco Use Smoking status: Some Days Types: Cigarettes Smokeless tobacco: Never Substance and Sexual Activity Drug use: Never SCREENINGS PHYSICAL EXAM ED Triage Vitals [09/26/22 1453] Temp Heart Rate Resp BP 36.3 C (97.4 F) 95 20 139/89 SpO2 Temp Source Heart Rate Source Patient Position 98 % Temporal Monitor Sitting BP Location FiO2 (%) Left arm -- Physical Exam Vitals and nursing note reviewed. Constitutional: General: She is not in acute distress. Appearance: Normal appearance. She is normal weight. She is not ill-appearing or toxic-appearing. HENT: Head: Normocephalic. Right Ear: Tympanic membrane and external ear normal. Left Ear: Tympanic membrane and external ear normal. Mouth/Throat: Mouth: Mucous membranes are moist. Pharynx: Oropharynx is clear. Eyes: Conjunctiva/sclera: Conjunctivae normal. Pupils: Pupils are equal, round, and reactive to light. Cardiovascular: Rate and Rhythm: Normal rate and regular rhythm. Pulses: Normal pulses. Heart sounds: Normal heart sounds. No murmur heard. Pulmonary: Effort: Pulmonary effort is normal. No respiratory distress. Breath sounds: Normal breath sounds. No stridor. No wheezing or rhonchi. Musculoskeletal: Cervical back: Normal range of motion and neck supple. No rigidity or tenderness. Comments: No tenderness to the cervical, thoracic, lumbar spine, 5 out of 5 strength shoulder flexion extension elbow flexion extension, hematoma to the left side of the forehead. Pelvis stable hips are nontender abrasions noted over the knees but full range of motion of the hips knees and ankles without pain. Lymphadenopathy: Cervical: No cervical adenopathy. Skin: General: Skin is warm and dry. Capillary Refill: Capillary refill takes less than 2 seconds. Coloration: Skin is not jaundiced or pale. Findings: No bruising. Neurological: General: No focal deficit present. Mental Status: She is alert and oriented to person, place, and time. Mental status is at baseline. Cranial Nerves: No cranial nerve deficit. Sensory: No sensory deficit. Motor: No weakness. Coordination: Coordination normal. Psychiatric: Mood and Affect: Mood normal. DIAGNOSTIC RESULTS Procedures/EKG: EKG was reviewed by myself. Physician EKG interpretation can be found in Epiphany RADIOLOGY (Per Emergency Physician): Interpretation per the Radiologist below, if available at the time of this note: CT head wo IV contrast Final Result No CT evidence of acute intracranial abnormality. Report Dictated on Electronically Signed By: Ale Cordero MD Electronically Signed Date/Time: 09/26/2022 3:48 PM EDT ED BEDSIDE ULTRASOUND: Performed by ED Physician - none LABS: Labs Reviewed - No data to display All other labs were within normal range or not returned as of this dictation. EMERGENCY DEPARTMENT COURSE and DIFFERENTIAL DIAGNOSIS/MDM: Vitals: Vitals: 09/26/22 1453 BP: 139/89 BP Location: Left arm Patient Position: Sitting Pulse: 95 Resp: 20 Temp: 36.3 C (97.4 F) TempSrc: Temporal SpO2: 98% Weight: 63.5 kg (140 lb) Diagnoses as of 09/26/221923 Closed head injury, initial encounter Frequent falls Traumatic hematoma of forehead, initial encounter The patient presented with chief complaint of with chief complaint of being that her legs been giving out and she has been having frequent falls. This is an ongoing issue I had seen this patient for a similar issue. At that time I had made note that since beginning of June the patient had been seen over 20 times in multiple ERs, this included [facility], [facility], [facility], [facility], [facility], [facility], [facility], [facility], [facility], [facility], these are only the places that I can see in care everywhere. Patient tells me she has a history of spinal stenosis and ankylosing spondylitis however she has had multiple imaging studies done over the last 5 months and had an MRI of the lumbar spine which showed no abnormalities and no spinal stenosis on August 17 of this year she is also had CTs of the cervical and thoracic spine which were unremarkable in August of this year. She states she is now seeing a neurosurgeon in [place] who is having her do physical therapy, she also alleges that she has seen pain management in [place]. Patient was seen here on 21 September, seen here yesterday, also had a visit in [place] yesterday and today went to [facility] and then presented again here. She states this time her legs gave out and she hit her head on the wall she was already seen at [facility] had a CT of the head was unremarkable there was no loss of consciousness she denies any neck pain she is not on blood thinners.. The differential diagnosis associated with this patient's presentation includes subdural hematoma, closed head injury, frequent falls. The patient will be discharged home she has a normal neuro exam normal musculoskeletal exam she hasno strength deficits, I did advise her to talk with her neurosurgeon in [place] perhaps she needs to see neurology and get a work-up for MS there does not appear to be any emergent need at this time to admit the patient as she ambulated into the department with steady gait and out of the department with steady gait she is not on blood thinners her CT head is negative she was offered Tylenol for pain but declined, she will be discharged home in stable condition. Patient is in agreement with this plan. Medications - No data to display REVAL: CRITICAL CARE TIME None CONSULTS: None PROCEDURES: Unless otherwise noted below, none Procedures Patients symptoms are consistent with sepsis, severe sepsis, or septic shock (If yes use .sepsiscoremeasure): no FINAL IMPRESSION 1. Closed head injury, initial encounter 2. Frequent falls 3. Traumatic hematoma of forehead, initial encounter DISPOSITION Discharge 09/26/2022 07:23:25 PM PATIENT REFERRED TO: Your PCP and Neurosurgeon Schedule an appointment as soon as possible for a visit DISCHARGE MEDICATIONS: New Prescriptions No medications on file (Comment: Please note this report has been produced using speech recognition software and may contain errors related to that system including errors in grammar, punctuation, and spelling, as well as words and phrases that may be inappropriate. If there are any questions or concerns please feel freeto contact the dictating provider for clarification.) KRYSTAL Santana CNP (electronically signed) Emergency Medicine Provider KRYSTAL Santana CNP 09/26/221928 * Lucy Momin RN - 09/26/2022 2:49 PM EDT Bed: 23 Expected date: Expected time: Means of arrival: Comments: Lucy Momin RN 09/26/221851 documented in this [facility] [place]07-26-2023 Physician Emergency department Note* Matt Rosado MD - 09/26/2022 2:49 PM EDT Emergency Department Encounter [facility] EMERGENCY DEPT Patient: Db Doan : 1970 Date of Evaluation: 09/26/2022 ED Provider: Matt Rosado MD I saw the patient as the Clinician in Triage and performed a brief history and physical exam, established acuity, and ordered appropriate tests to develop basic plan of care. Patient will be seen by SURINDER, resident and/or my physician partner who will evaluate the patient. If seen by the SURINDER I will manage the patient in a supervisory role and will be available for co-management. I did perform a substantive portion of the visit including all aspects of the Medical Decision Making. I wore appropriate PPE for the entirety of this encounter. Brief HPI: In brief, Db Doan is a 52 y.o. that presents with chief complaint of fall and hitting her head. States she did not lose consciousness. States she has chronic back pain due to ankylosing spondylitis. This is causing her to shuffle her feet and made her fall. States her legs are giving out. States she feels generally weak. Focused Physical exam: Awake and alert. Afebrile. Nontoxic. She has bruising to the left forehead area. No palpable step-off. Patient has abrasions to her bilateral knees. Neurologic exam has no gross focal deficits. Plan/MDM: CT head is obtained. Patient's back pain is chronic. Her exam does not show any focal neurologic deficits Patients symptoms are consistent with sepsis, severe sepsis, or septic shock (If yes use .sepsiscoremeasure): no Please see subsequent provider note for further details and disposition (Comment: Please note this report has been produced using speech recognition software and may contain errors related to that system including errors in grammar, punctuation, and spelling as well as words and phrases that may be inappropriate. If there are any questions or concerns please feel free to contact the dictating provider for clarification) Matt Rosado MD [employer] Matt Rosado MD 09/26/222000 [employer] Phone: [phone]) 538-920907-26-2023 Physician Emergency department Note* Rajat Lay APRN - BARRATTE OPERATOR - 09/26/2022 2:49 PM EDT EMERGENCY DEPARTMENT ENCOUNTER Pt Name: Db Doan Birthdate 1970 Date of evaluation: 09/26/2022 ED Provider: Rajat Lay APRN - XUAN I have evaluated this patient on my own, per my scope of practice with an attending physician available for consultation. CHIEF COMPLAINT Chief Complaint Patient presents with Fall Pt presents to ED with c/o fall this afternoon, hit her head on wall, denies LOC, - thinners. Pt explains she has spinal fusions and stenosis and legs have been giving out HISTORY OF PRESENT ILLNESS (Location/Symptom, Timing/Onset, Context/Setting, Quality, Duration, Modifying Factors, Severity) Note limiting factors. I wore appropriate PPE for the entirety of this encounter. HPI Db Doan is a 52 y.o. who presents to the emergency department with chief complaint of being that her legs been giving out and she has been having frequent falls. This is an ongoing issue I had seen this patient September 16 for a similar issue. At that time I had made note that since beginning of June the patient had been seen over 20 times in multiple ERs, this included [facility], [facility], [facility], [facility], [facility], [facility], [facility], [facility], [facility], [facility], these are only the places that I can see in care everywhere. Patient tells me she has a history of spinal stenosis and ankylosing spondylitis however she has had multiple imaging studies done over the last 5 months and had an MRI of the lumbar spine which showed no abnormalities and no spinal stenosis on August 17 of this year she is also had CTs of the cervical and thoracic spine which were unremarkable in August of this year. She states she is now seeing a neurosurg gabriel in [place] who is having her do physical therapy, she also alleges that she has seen pain management in [place]. Patient was seen here on 21 September, seen here yesterday, also had a visit in [place] yesterday and today went to [facility] and then presented again here. She states this time her legs gave out and she hit her head on the wall she was already seen at [facility] had a CT of the head was unremarkable there was no loss of consciousness she denies any neck pain she is not on blood thinners. 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 Limitations to history: None Outside historians: None REVIEW OF SYSTEMS Review of Systems Constitutional: Negative for activity change, appetite change, chills and fever. HENT: Negative for congestion, nosebleeds, sinus pain and trouble swallowing. Eyes: Negative for pain and visual disturbance. Respiratory: Negative for cough, chest tightness and shortness of breath. Cardiovascular: Negative for chest pain. Gastrointestinal: Negative for abdominal pain, diarrhea, nausea and vomiting. Genitourinary: Negative for dysuria, hematuria, pelvic pain, vaginal bleeding, vaginal discharge and vaginal pain. Musculoskeletal: Positive for arthralgias and myalgias. Negative for back pain, joint swelling and neck stiffness. Skin: Positive for wound. Negative for pallor and rash. Neurological: Positive for headaches. Negative for seizures, syncope, speech difficulty, weakness and light-headedness. Hematological: Negative for adenopathy. Psychiatric/Behavioral: Negative for agitation and confusion. All other systems reviewed and are negative. Pertinent positives and negatives as per HPI. PAST MEDICAL HISTORY Past Medical History: Diagnosis Date Sciatica Seizures (HCC) Spinal stenosis SURGICAL HISTORY History reviewed. No pertinent surgical history. CURRENT MEDICATIONS Previous Medications METHOCARBAMOL (ROBAXIN) 500 MG TABLET Take 1 tablet (500 mg) by mouth 2 times daily for 10 days. OXYCODONE (ROXICODONE) 5 MG IMMEDIATE RELEASE TABLET Take 1 tablet (5 mg) by mouth every 6 hours asneeded for severe pain (7-10) for up to 3 doses. ALLERGIES Patient has no known allergies. FAMILY HISTORY No family history on file. SOCIAL HISTORY Social History Socioeconomic History Marital status: Unknown Tobacco Use Smoking status: Some Days Types: Cigarettes Smokeless tobacco: Never Substance and Sexual Activity Drug use: Never SCREENINGS PHYSICAL EXAM ED Triage Vitals [09/26/22 1453] Temp Heart Rate Resp BP 36.3 C (97.4 F) 95 20 139/89 SpO2 Temp Source Heart Rate Source Patient Position 98 % Temporal Monitor Sitting BP Location FiO2 (%) Left arm -- Physical Exam Vitals and nursing note reviewed. Constitutional: General: She is not in acute distress. Appearance: Normal appearance. She is normal weight. She is not ill-appearing or toxic-appearing. HENT: Head: Normocephalic. Right Ear: Tympanic membrane and external ear normal. Left Ear: Tympanic membrane and external ear normal. Mouth/Throat: Mouth: Mucous membranes are moist. Pharynx: Oropharynx is clear. Eyes: Conjunctiva/sclera: Conjunctivae normal. Pupils: Pupils are equal, round, and reactive to light. Cardiovascular: Rate and Rhythm: Normal rate and regular rhythm. Pulses: Normal pulses. Heart sounds: Normal heart sounds. No murmur heard. Pulmonary: Effort: Pulmonary effort is normal. No respiratory distress. Breath sounds: Normal breath sounds. No stridor. No wheezing or rhonchi. Musculoskeletal: Cervical back: Normal range of motion and neck supple. No rigidity or tenderness. Comments: No tenderness to the cervical, thoracic, lumbar spine, 5 out of 5 strength shoulder flexion extension elbow flexion extension, hematoma to the left side of the forehead. Pelvis stable hips are nontender abrasions noted over the knees but full range of motion of the hips knees and ankles without pain. Lymphadenopathy: Cervical: No cervical adenopathy. Skin: General: Skin is warm and dry. Capillary Refill: Capillary refill takes less than 2 seconds. Coloration: Skin is not jaundiced or pale. Findings: No bruising. Neurological: General: No focal deficit present. Mental Status: She is alert and oriented to person, place, and time. Mental status is at baseline. Cranial Nerves: No cranial nerve deficit. Sensory: No sensory deficit. Motor: No weakness. Coordination: Coordination normal. Psychiatric: Mood and Affect: Mood normal. DIAGNOSTIC RESULTS Procedures/EKG: EKG was reviewed by myself. Physician EKG interpretation can be found in [facility] RADIOLOGY (Per Emergency Physician): Interpretation per the Radiologist below, if available at the time of this note: CT head wo IV contrast Final Result No CT evidence of acute intracranial abnormality. Report Dictated on Electronically Signed By: Ale Cordero MD Electronically Signed Date/Time: 09/26/2022 3:48 PM EDT ED BEDSIDE ULTRASOUND: Performed by ED Physician - none LABS: Labs Reviewed - No data to display All other labs were within normal range or not returned as of this dictation. EMERGENCY DEPARTMENT COURSE and DIFFERENTIAL DIAGNOSIS/MDM: Vitals: Vitals: 09/26/22 1453 BP: 139/89 BP Location: Left arm Patient Position: Sitting Pulse: 95 Resp: 20 Temp: 36.3 C (97.4 F) TempSrc: Temporal SpO2: 98% Weight: 63.5 kg (140 lb) Diagnoses as of 09/26/221923 Closed head injury, initial encounter Frequent falls Traumatic hematoma of forehead, initial encounter The patient presented with chief complaint of with chief complaint of being that her legs been giving out and she has been having frequent falls. This is an ongoing issue I had seen this patient for a similar issue. At that time I had made note that since beginning of June the patient had been seen over 20 times in multiple ERs, this included [facility], [facility], [facility], [facility], [facility], [facility], [facility], [facility], [facility], [facility], these are only the places that I can see in care everywhere. Patient tells me she has a history of spinal stenosis and ankylosing spondylitis however she has had multiple imaging studies done over the last 5 months and had an MRI of the lumbar spine which showed no abnormalities and no spinal stenosis on August 17 of this year she is also had CTs of the cervical and thoracic spine which were unremarkable in August of this year. She states she is now seeing a neurosurgeon in [place] who is having her do physical therapy, she also alleges that she has seen pain management in [place]. Patient was seen here on 21 September, seen here yesterday, also had a visit in [place] yesterday and today went to [facility] and then presented again here. She states this time her legs gave out and she hit her head on the wall she was already seen at [facility] had a CT of the head was unremarkable there was no loss of consciousness she denies any neck pain she is not on blood thinners.. The differential diagnosis associated with this patient's presentation includes subdural hematoma, closed head injury, frequent falls. The patient will be discharged home she has a normal neuro exam normal musculoskeletal exam she hasno strength deficits, I did advise her to talk with her neurosurgeon in [place] perhaps she needs to see neurology and get a work-up for MS there does not appear to be any emergent need at this time to admit the patient as she ambulated into the department with steady gait and out of the department with steady gait she is not on blood thinners her CT head is negative she was offered Tylenol for pain but declined, she will be discharged home in stable condition. Patient is in agreement with this plan. Medications - No data to display REVAL: CRITICAL CARE TIME None CONSULTS: None PROCEDURES: Unless otherwise noted below, none Procedures Patients symptoms are consistent with sepsis, severe sepsis, or septic shock (If yes use .sepsiscoremeasure): no FINAL IMPRESSION 1. Closed head injury, initial encounter 2. Frequent falls 3. Traumatic hematoma of forehead, initial encounter DISPOSITION Discharge 09/26/2022 07:23:25 PM PATIENT REFERRED TO: Your PCP and Neurosurgeon Schedule an appointment as soon as possible for a visit DISCHARGE MEDICATIONS: New Prescriptions No medications on file (Comment: Please note this report has been produced using speech recognition software and may contain errors related to that system including errors in grammar, punctuation, and spelling, as well as words and phrases that may be inappropriate. If there are any questions or concerns please feel freeto contact the dictating provider for clarification.) KRYSTAL Santana CNP (electronically signed) Emergency Medicine Provider KRYSTAL Santana CNP 09/26/221928 [id number] Note* KRYSTAL Santana CNP - 09/16/2022 1:36 PM EDT EMERGENCY DEPARTMENT ENCOUNTER Pt Name: Db Doan Birthdate 1970 Date of evaluation: 09/16/2022 ED Provider: KRYSTAL Santana CNP I have evaluated this patient on my own, per my scope of practice with an attending physician available for consultation. CHIEF COMPLAINT Chief Complaint Patient presents with Back Pain Pt has hx of spinal stenosis, having acute on chronic back pain since helping her daughter move today Shoulder Pain Left shoulder pain since waking this morning Swollen Glands Lymph node in face & neck swelling x5 days Fall States she has been falling a lot on the past 6 weeks due to her shuffling because of b/l leg pain HISTORY OF PRESENT ILLNESS (Location/Symptom, Timing/Onset, Context/Setting, Quality, Duration, Modifying Factors, Severity) Note limiting factors. I wore appropriate PPE for the entirety of this encounter. ELIANA Doan is a 52 y.o. who presents to the emergency department with chief complaint of, she also states that she has ankylosing spondylitis and spinal stenosis. She also complains of she feels like she has swollen lymph nodes underneath her left clavicle. States has been falling a lot over the last 6 weeks. I did an extensive record review on this patient, since the beginning of June the patient has been seen 20 different times in an emergency room that I can see she has been seen at [facility], [facility], [facility], [facility], [facility], [facility], [facility], [place], [facility] emergency room. She has had multiple imaging studies done on the hips pelvis and on the spine she had an unremarkable MRI of the lumbar spine that showed no abnormalities and no spinal stenosis on August 17 of this year she also had CTs of the cervical and thoracic spine which were unremarkable on August 31 of this year. At one visit she stated she was post to see a spine surgeon instead went to [place] and was placed on steroids for her chronic pain, she tells me today that she has an appointment with pain management tomorrow for referral to physical therapy and she supposed to see a Dr. Latham through [facility] in [place] on for pain management. 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 Limitations to history: None Outside historians: None REVIEW OF SYSTEMS Review of Systems Constitutional: Negative for activity change, appetite change, chills and fever. HENT: Negative for congestion, nosebleeds, sinus pain and trouble swallowing. Eyes: Negative for pain and visual disturbance. Respiratory: Negative for cough, chest tightness and shortness of breath. Cardiovascular: Negative for chest pain. Gastrointestinal: Negative for abdominal pain, diarrhea, nausea and vomiting. Genitourinary: Negative for dysuria, hematuria, pelvic pain, vaginal bleeding, vaginal discharge and vaginal pain. Musculoskeletal: Positive for arthralgias, back pain and myalgias. Negative for joint swelling and neck stiffness. Skin: Negative for rash and wound. Neurological: Negative for syncope, weakness, light-headedness and headaches. Hematological: Negative for adenopathy. Psychiatric/Behavioral: Negative for agitation and confusion. All other systems reviewed and are negative. Pertinent positives and negatives as per HPI. PAST MEDICAL HISTORY No past medical history on file. SURGICAL HISTORY No past surgical history on file. CURRENT MEDICATIONS Previous Medications MELOXICAM (MOBIC) 7.5 MG TABLET Take 1 tablet (7.5 mg) by mouth daily for 10 days. ALLERGIES Patient has no known allergies. FAMILY HISTORY No family history on file. SOCIAL HISTORY Social History Socioeconomic History Marital status: Unknown SCREENINGS PHYSICAL EXAM ED Triage Vitals [09/16/22 1337] Temp Heart Rate Resp BP 36.4 C (97.5 F) 98 16 (!) 131/94 SpO2 Temp Source Heart Rate Source Patient Position 100 % Temporal Monitor -- BP Location FiO2 (%) -- -- Physical Exam Vitals and nursing note reviewed. Constitutional: General: She is not in acute distress. Appearance: Normal appearance. She is normal weight. She is not ill-appearing or toxic-appearing. HENT: Head: Normocephalic and atraumatic. Right Ear: External ear normal. Left Ear: External ear normal. Mouth/Throat: Mouth: Mucous membranes are moist. Pharynx: Oropharynx is clear. Eyes: Conjunctiva/sclera: Conjunctivae normal. Pupils: Pupils are equal, round, and reactive to light. Cardiovascular: Rate and Rhythm: Normal rate and regular rhythm. Pulses: Normal pulses. Heart sounds: Normal heart sounds. No murmur heard. Pulmonary: Effort: Pulmonary effort is normal. No respiratory distress. Breath sounds: Normal breath sounds. No stridor. No wheezing or rhonchi. Comments: Slight adenopathy noted in the left supraclavicular region Abdominal: Comments: The abdomen is soft, nondistended and nontender. There is no rebound tenderness or guarding. Bowel sounds are normal. Musculoskeletal: Cervical back: Normal range of motion and neck supple. No rigidity or tenderness. Comments: There is no tenderness to the cervical or thoracic spine. There is 5 out of 5 strength with shoulder flexion, elbow flexion, elbow extension. There is 5 out of 5 strength with flexion and extension of the wrist and abduction and abduction of the fingers. Radial pulses are 2+ and symmetric, there are no temperature or sensory deficits to the upper extremities. There is no pain on palpation to the spine. Straight leg raise is negative on the left and right. There is no weakness noted with adduction of either thigh. There is no weakness noted hip flexion, knee extension, knee flexion. There is no weakness noted to dorsiflexion of the foot, dorsiflexion of the great toe or plantarflexion of the foot. Patellar reflexes are 2+ bilaterally. DP pulses are 2+.There are no sensory deficits to the lower extremities, no saddle anesthesia. Sensation is intact to the groin, perianal sensation is intact. Lymphadenopathy: Cervical: No cervical adenopathy. Skin: General: Skin is warm and dry. Capillary Refill: Capillary refill takes less than 2 seconds. Coloration: Skin is not jaundiced or pale. Findings: No bruising or erythema. Neurological: General: No focal deficit present. Mental Status: She is alert and oriented to person, place, and time. Mental status is at baseline. Cranial Nerves: No cranial nerve deficit. Sensory: No sensory deficit. Psychiatric: Mood and Affect: Mood normal. DIAGNOSTIC RESULTS Procedures/EKG: EKG was reviewed by myself. Physician EKG interpretation can be found in [facility] RADIOLOGY (Per Emergency Physician): Interpretation per the Radiologist below, if available at the time of this note: XR chest 2 views Final Result No focal consolidation or pulmonary edema. Report Dictated on Electronically Signed By: Matt Maya MD Electronically Signed Date/Time: 09/16/2022 2:33 PM EDT ED BEDSIDE ULTRASOUND: Performed by ED Physician - none LABS: Labs Reviewed - No data to display All other labs were within normal range or not returned as of this dictation. EMERGENCY DEPARTMENT COURSE and DIFFERENTIAL DIAGNOSIS/MDM: Vitals: Vitals: 09/16/22 1337 BP: (!) 131/94 Pulse: 98 Resp: 16 Temp: 36.4 C (97.5 F) TempSrc: Temporal SpO2: 100% Weight: 65.8 kg (145 lb) Diagnoses as of 09/16/22 1600 Acute exacerbation of chronic low back pain Supraclavicular lymphadenopathy The patient presented with chief complaint of with chief complaint of, she also states that she hasankylosing spondylitis and spinal stenosis. She also complains of she feels like she has swollen lymph nodes underneath her left clavicle. States has been falling a lot over the last 6 weeks. I did an extensive record review on this patient, since the beginning of June the patient has been seen 20different times in an emergency room that I can see she has been seen at [facility], [facility], [facility], [facility], [facility], [facility], [facility], [place], [facility] emergencyroom. She has had multiple imaging studies done on the hips pelvis and on the spine she had an unremarkable MRI of the lumbar spine that showed no abnormalities and no spinal stenosis on August 17 of this year she also had CTs of the cervical and thoracic spine which were unremarkable on August 31 of this year. At one visit she stated she was post to see a spine surgeon instead went to [place] and was placed on steroids for her chronic pain, she tells me today that she has an appointment withpain management tomorrow for referral to physical therapy and she supposed to see a Dr. Latham through [facility] in [place] on for pain management.. The differential diagnosis associated with this patient's presentation includes acute exacerbation of chronic low back pain, supraclavicular lymphadenopathy. Our workup consisted of ordering/reviewin view chest x-ray. Diagnostic tests considered but not performed: Considered laboratory studies to evaluate for elevated white blood cell count but the patient had blood work done a few days ago which was normal she also had a normal sed rate and CRP done a couple days ago she has a normal high-sensitivity neuro examof the lower extremities I had a long and no conversation with this patient I advised her that she has been seen at almost 10 different facilities over the last 4 months in multiple different locations and in 3 [place] states and that is not a good look. She states this is because since she hurt her hip in June she keeps going to different facilities and no one will help her however this is also with the knowledge that she has been kicked out of pain management in the past. I advised her that she needs to try to manage her pain with nonopiate modalities consider physical therapy and follow-up with pain management for injections and she alleges that she is doing these in [place] this week. She will be discharged home in stable condition. The patient will be Discharged. Patient is in agreement with this plan. Medications oxyCODONE-acetaminophen (Percocet) 5-325 MG per tablet 1 tablet (1 tablet Oral Given 09/16/22 0615) REVAL: CRITICAL CARE TIME None CONSULTS: None PROCEDURES: Unless otherwise noted below, none Procedures Patients symptoms are consistent with sepsis, severe sepsis, or septic shock (If yes use .sepsiscoremeasure): no FINAL IMPRESSION 1. Acute exacerbation of chronic low back pain 2. Supraclavicular lymphadenopathy DISPOSITION Discharge 09/16/2022 03:49:32 PM PATIENT REFERRED TO: Jaime Davis [address] [place] [address], [address] [place] [address] Schedule an appointment as soon as possible for a visit Pain Management as scheduled DISCHARGE MEDICATIONS: New Prescriptions No medications on file (Comment: Please note this report has been produced using speech recognition software and may contain errors related to that system including errors in grammar, punctuation, and spelling, as well as words and phrases that may be inappropriate. If there are any questions or concerns please feel freeto contact the dictating provider for clarification.) KRYSTAL Santana CNP (electronically signed) Emergency Medicine Provider KRYSTAL Santana CNP 09/16/22 1727 documented in this [facility]07-16-2023 Physician Emergency department Note* KRYSTAL Santana CNP - 09/16/2022 1:36 PM EDT EMERGENCY DEPARTMENT ENCOUNTER Pt Name: Db Doan Birthdate 1970 Date of evaluation: 09/16/2022 ED Provider: KRYSTAL Santana CNP I have evaluated this patient on my own, per my scope of practice with an attending physician available for consultation. CHIEF COMPLAINT Chief Complaint Patient presents with Back Pain Pt has hx of spinal stenosis, having acute on chronic back pain since helping her daughter move today Shoulder Pain Left shoulder pain since waking this morning Swollen Glands Lymph node in face & neck swelling x5 days Fall States she has been falling a lot on the past 6 weeks due to her shuffling because of b/l leg pain HISTORY OF PRESENT ILLNESS (Location/Symptom, Timing/Onset, Context/Setting, Quality, Duration, Modifying Factors, Severity) Note limiting factors. I wore appropriate PPE for the entirety of this encounter. ELIANA Doan is a 52 y.o. who presents to the emergency department with chief complaint of, she also states that she has ankylosing spondylitis and spinal stenosis. She also complains of she feels like she has swollen lymph nodes underneath her left clavicle. States has been falling a lot over the last 6 weeks. I did an extensive record review on this patient, since the beginning of June the patient has been seen 20 different times in an emergency room that I can see she has been seen at [facility], [facility], [facility], [facility], [facility], [facility], [facility], [place], [facility] emergency room. She has had multiple imaging studies done on the hips pelvis and on the spine she had an unremarkable MRI of the lumbar spine that showed no abnormalities and no spinal stenosis on August 17 of this year she also had CTs of the cervical and thoracic spine which were unremarkable on August 31 of this year. At one visit she stated she was post to see a spine surgeon instead went to [place] and was placed on steroids for her chronic pain, she tells me today that she has an appointment with pain management tomorrow for referral to physical therapy and she supposed to see a Dr. Latham through [facility] in [place] on for pain management. 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 Limitations to history: None Outside historians: None REVIEW OF SYSTEMS Review of Systems Constitutional: Negative for activity change, appetite change, chills and fever. HENT: Negative for congestion, nosebleeds, sinus pain and trouble swallowing. Eyes: Negative for pain and visual disturbance. Respiratory: Negative for cough, chest tightness and shortness of breath. Cardiovascular: Negative for chest pain. Gastrointestinal: Negative for abdominal pain, diarrhea, nausea and vomiting. Genitourinary: Negative for dysuria, hematuria, pelvic pain, vaginal bleeding, vaginal discharge and vaginal pain. Musculoskeletal: Positive for arthralgias, back pain and myalgias. Negative for joint swelling and neck stiffness. Skin: Negative for rash and wound. Neurological: Negative for syncope, weakness, light-headedness and headaches. Hematological: Negative for adenopathy. Psychiatric/Behavioral: Negative for agitation and confusion. All other systems reviewed and are negative. Pertinent positives and negatives as per HPI. PAST MEDICAL HISTORY No past medical history on file. SURGICAL HISTORY No past surgical history on file. CURRENT MEDICATIONS Previous Medications MELOXICAM (MOBIC) 7.5 MG TABLET Take 1 tablet (7.5 mg) by mouth daily for 10 days. ALLERGIES Patient has no known allergies. FAMILY HISTORY No family history on file. SOCIAL HISTORY Social History Socioeconomic History Marital status: Unknown SCREENINGS PHYSICAL EXAM ED Triage Vitals [09/16/22 1337] Temp Heart Rate Resp BP 36.4 C (97.5 F) 98 16 (!) 131/94 SpO2 Temp Source Heart Rate Source Patient Position 100 % Temporal Monitor -- BP Location FiO2 (%) -- -- Physical Exam Vitals and nursing note reviewed. Constitutional: General: She is not in acute distress. Appearance: Normal appearance. She is normal weight. She is not ill-appearing or toxic-appearing. HENT: Head: Normocephalic and atraumatic. Right Ear: External ear normal. Left Ear: External ear normal. Mouth/Throat: Mouth: Mucous membranes are moist. Pharynx: Oropharynx is clear. Eyes: Conjunctiva/sclera: Conjunctivae normal. Pupils: Pupils are equal, round, and reactive to light. Cardiovascular: Rate and Rhythm: Normal rate and regular rhythm. Pulses: Normal pulses. Heart sounds: Normal heart sounds. No murmur heard. Pulmonary: Effort: Pulmonary effort is normal. No respiratory distress. Breath sounds: Normal breath sounds. No stridor. No wheezing or rhonchi. Comments: Slight adenopathy noted in the left supraclavicular region Abdominal: Comments: The abdomen is soft, nondistended and nontender. There is no rebound tenderness or guarding. Bowel sounds are normal. Musculoskeletal: Cervical back: Normal range of motion and neck supple. No rigidity or tenderness. Comments: There is no tenderness to the cervical or thoracic spine. There is 5 out of 5 strength with shoulder flexion, elbow flexion, elbow extension. There is 5 out of 5 strength with flexion and extension of the wrist and abduction and abduction of the fingers. Radial pulses are 2+ and symmetric, there are no temperature or sensory deficits to the upper extremities. There is no pain on palpation to the spine. Straight leg raise is negative on the left and right. There is no weakness noted with adduction of either thigh. There is no weakness noted hip flexion, knee extension, knee flexion. There is no weakness noted to dorsiflexion of the foot, dorsiflexion of the great toe or plantarflexion of the foot. Patellar reflexes are 2+ bilaterally. DP pulses are 2+.There are no sensory deficits to the lower extremities, no saddle anesthesia. Sensation is intact to the groin, perianal sensation is intact. Lymphadenopathy: Cervical: No cervical adenopathy. Skin: General: Skin is warm and dry. Capillary Refill: Capillary refill takes less than 2 seconds. Coloration: Skin is not jaundiced or pale. Findings: No bruising or erythema. Neurological: General: No focal deficit present. Mental Status: She is alert and oriented to person, place, and time. Mental status is at baseline. Cranial Nerves: No cranial nerve deficit. Sensory: No sensory deficit. Psychiatric: Mood and Affect: Mood normal. DIAGNOSTIC RESULTS Procedures/EKG: EKG was reviewed by myself. Physician EKG interpretation can be found in [facility] RADIOLOGY (Per Emergency Physician): Interpretation per the Radiologist below, if available at the time of this note: XR chest 2 views Final Result No focal consolidation or pulmonary edema. Report Dictated on Electronically Signed By: Matt Maya MD Electronically Signed Date/Time: 09/16/2022 2:33 PM EDT ED BEDSIDE ULTRASOUND: Performed by ED Physician - none LABS: Labs Reviewed - No data to display All other labs were within normal range or not returned as of this dictation. EMERGENCY DEPARTMENT COURSE and DIFFERENTIAL DIAGNOSIS/MDM: Vitals: Vitals: 09/16/22 1337 BP: (!) 131/94 Pulse: 98 Resp: 16 Temp: 36.4 C (97.5 F) TempSrc: Temporal SpO2: 100% Weight: 65.8 kg (145 lb) Diagnoses as of 09/16/22 1600 Acute exacerbation of chronic low back pain Supraclavicular lymphadenopathy The patient presented with chief complaint of with chief complaint of, she also states that she hasankylosing spondylitis and spinal stenosis. She also complains of she feels like she has swollen lymph nodes underneath her left clavicle. States has been falling a lot over the last 6 weeks. I did an extensive record review on this patient, since the beginning of June the patient has been seen 20different times in an emergency room that I can see she has been seen at [facility], [facility], [facility], [facility], [facility], [facility], [facility], [place], [facility] emergencyroom. She has had multiple imaging studies done on the hips pelvis and on the spine she had an unremarkable MRI of the lumbar spine that showed no abnormalities and no spinal stenosis on August 17 of this year she also had CTs of the cervical and thoracic spine which were unremarkable on August 31 of this year. At one visit she stated she was post to see a spine surgeon instead went to [place] and was placed on steroids for her chronic pain, she tells me today that she has an appointment withpain management tomorrow for referral to physical therapy and she supposed to see a Dr. Latham through [facility] in [place] on for pain management.. The differential diagnosis associated with this patient's presentation includes acute exacerbation of chronic low back pain, supraclavicular lymphadenopathy. Our workup consisted of ordering/reviewin view chest x-ray. Diagnostic tests considered but not performed: Considered laboratory studies to evaluate for elevated white blood cell count but the patient had blood work done a few days ago which was normal she also had a normal sed rate and CRP done a couple days ago she has a normal high-sensitivity neuro examof the lower extremities I had a long and no conversation with this patient I advised her that she has been seen at almost 10 different facilities over the last 4 months in multiple different locations and in 3 [place] states and that is not a good look. She states this is because since she hurt her hip in June she keeps going to different facilities and no one will help her however this is also with the knowledge that she has been kicked out of pain management in the past. I advised her that she needs to try to manage her pain with nonopiate modalities consider physical therapy and follow-up with pain management for injections and she alleges that she is doing these in [place] this week. She will be discharged home in stable condition. The patient will be Discharged. Patient is in agreement with this plan. Medications oxyCODONE-acetaminophen (Percocet) 5-325 MG per tablet 1 tablet (1 tablet Oral Given 09/16/22 1425) REVAL: CRITICAL CARE TIME None CONSULTS: None PROCEDURES: Unless otherwise noted below, none Procedures Patients symptoms are consistent with sepsis, severe sepsis, or septic shock (If yes use .sepsiscoremeasure): no FINAL IMPRESSION 1. Acute exacerbation of chronic low back pain 2. Supraclavicular lymphadenopathy DISPOSITION Discharge 09/16/2022 03:49:32 PM PATIENT REFERRED TO: Jaime Davis [address] [place] [address], [address] [place] [address] Schedule an appointment as soon as possible for a visit Pain Management as scheduled DISCHARGE MEDICATIONS: New Prescriptions No medications on file (Comment: Please note this report has been produced using speech recognition software and may contain errors related to that system including errors in grammar, punctuation, and spelling, as well as words and phrases that may be inappropriate. If there are any questions or concerns please feel freeto contact the dictating provider for clarification.) KRYSTAL Santana CNP (electronically signed) Emergency Medicine Provider KRYSTAL Santana CNP 09/16/[address] [id number] Telephone encounter Note* Telephone Encounter - Fely Ellington RN - 09/15/2022 5:[address] [id number] Miscellaneous Notes* Telephone Encounter - Fely Ellington RN - 09/15/2022 5:52 PM EDT error documented in this encounterSParkview Health Montpel[facility] [id number] Emergency department Note* Olivia Alvarez LPN - 09/13/2022 6:27 PM EDT Nurse went over discharge instructions, meds, and follow up care. Pt verbalized understanding and has now questions at this time. Pt discharged to home. Olivia Alvarez LPN 09/13/[address] [facility] [id number] Emergency department Note* Olivia Alvarez LPN - 09/13/2022 6:27 PM EDT Nurse went over discharge instructions, meds, and follow up care. Pt verbalized understanding and has now questions at this time. Pt discharged to home. Olivia Alvarez LPN 09/13/22 182 * Olivia Alvarez LPN - 09/13/2022 5:52 PM EDT Pt medicated. Olivia Alvarez LPN 09/13/22 175 * Ephraim Cardona MD - 09/13/2022 2:59 PM EDT Emergency Department Encounter [facility] EMERGENCY DEPT Patient: Db Doan : 1970 Date of Evaluation: 09/13/2022 ED Provider: EPHRAIM CARDONA MD COMBINED TRIAGE NOTE & SURINDER SUPERVISORY NOTE WITH SHARED ATTESTATION I independently saw the patient as the Clinician in Triage and performed a history and physical exam, established acuity, and ordered appropriate tests to develop a plan of care. Patient was subsequently seen by an SURINDER and I assumed a shared supervisory role. I personally saw the patient and performed a substantive portion of the visit including all aspectsof the Medical Decision Making. I wore appropriate PPE for the entirety of this encounter. Brief HPI: In brief, Db Doan is a 52 y.o. female that presents for injury to right knee and also chronic back pain. The patient has a longstanding history of ankylosing spondylosis, and has chronic pain issues she has had several recent falls was seen in the ER last week and had an x-ray of her pelvis because she tripped and fell. She says she has seen orthopedics and had steroid injections in both her hips and her lumbar spine she had an MRI within the last month and she has no surgical issues and they are going to proceed with physical therapy and pain management. Pain management actually called today and they are setting up an appointment and they are to discuss when that for spinalbe tomorrow. She is here now because she is having pain in her right lumbar region down the right buttock she slipped and fell and struck her right knee. She has an abrasion and knee pain. Nursing had noted that the patient complained of incontinence I discussed that with the patient she does not have any urinary or fecal incontinence now she said that she had some bladder issues about a month orso ago but she also noted that she had an MRI since then at [facility] and we will investigatethe findings of that. There is no new acute incontinence no fever chills or sweats no abdominal pain. No red flags for IV drug abuse leading to disc space or CART DRIVER infection and no anticoagulant use increasing risk for any CART DRIVER bleeding.. Focused Physical exam: HEART: Regular rate and rhythm no murmur or thrill or rub, strong heart tones ABDOMEN: Soft and nontender no guarding rebound liver and spleen normal there is no palpable massesor aneurysm identified BACK: There is mild diffuse paralumbar tenderness, no thoracic or flank pain. NEURO: Cranial nerves II through XII are intact, motor and sensory exams are intact and normal, muscle strength is 5/5, deep tendon reflexes are 2/4, sensation to touch and pain is intact and normal,no ataxia, normal gait, no focal findings noted. PSYCH: Awake alert oriented, normal mood and affect. EXTREMITIES: Good muscle tone and strength, reflexes are symmetric bilaterally, no signs of any muscle wasting, SLRs intact and normal without significant pain. She has tenderness with an abrasion onthe right lateral patellar region. Plan/MDM: Clinically there is no sign of spinal nerve root or cord compression, patient has normal reflexes, normal motor and sensory exam, no paraparesis or paraplegia, and no saddle anesthesia. Emergency magnetic resonance imaging/CT not indicated. In addition, no sign suggesting an acute abdominal process including aneurysm or significant renal dysfunction or abnormalities. She has tenderness in her right knee so I am going order an x-ray of that. External note reviewed through [facility] care everywhere MRI report dated 08/17/2022 shows a normal spinal cord no soft tissue abnormalities and only some annular disc bulging at L4-5 clearly not representing any spinal nerve root or cord compression. External note reviewed by myself through care everywhere on [facility] CT report on 08/31/2022 CT thoracicand lumbar spine no bony abnormalities. Clinically here given that she has no acute signs of benefit or cord compression and her physical exam is essentially normal she has had an MRI and CT imaging within the last month and I do not believe repeating any imaging studies clinically indicated at this point time. She will be treated symptomatically department but I will x-ray her knee to make sure there is no fracture. All diagnostic, treatment, and disposition decisions were made by myself in conjunction with the SURINDER. For all further details of the patient's emergency department visit, please see the full medical record and documentation. Comment: Please note this report has been produced using speech recognition software and may contain errors related to that system including errors in grammar, punctuation, and spelling as well as words and phrases that may be inappropriate. If there are any questions or concerns please feel free to contact the dictating provider for clarification EPHRAIM CARDONA MD Acute Care [facility] Ephraim Cardona MD 09/13/22 1624 documented in this [facility]07-13-2023 Hospital Discharge instructions* Discharge Instructions* Olga Weiner PA-C - 09/13/2022 6:17 PM EDT You were seen today for back pain. I sent Lon Corea to her pharmacy. Please take this as prescribed. Please follow-up with pain management/orthopedic team for further evaluation and management of your symptoms and pain. In the medical field, there is always a level of diagnostic uncertainty, even if this uncertainty is low. For this reason, it is important to immediately return to the emergency department if you have any new symptoms, worsening symptoms, change of symptoms, or if you have any other concerns. We would be happy to re- evaluate you. Otherwise, please take your medications as prescribed and follow-upas recommended. documented in this [facility]07-13-2023 Emergency department Note* Olivia Alvarez LPN - 09/13/2022 5:52 PM EDT Pt medicated. Olivia Alvarez LPN 09/13/[address] [facility] [id number] Physician Emergency department Note* Ephraim Cardona MD - 09/13/2022 2:59 PM EDT Emergency Department Encounter [facility] EMERGENCY DEPT Patient: Db Doan : 1970 Date of Evaluation: 09/13/2022 ED Provider: EPHRAIM CARDONA MD COMBINED TRIAGE NOTE & SURINDER SUPERVISORY NOTE WITH SHARED ATTESTATION I independently saw the patient as the Clinician in Triage and performed a history and physical exam, established acuity, and ordered appropriate tests to develop a plan of care. Patient was subsequently seen by an SURINDER and I assumed a shared supervisory role. I personally saw the patient and performed a substantive portion of the visit including all aspectsof the Medical Decision Making. I wore appropriate PPE for the entirety of this encounter. Brief HPI: In brief, Db Doan is a 52 y.o. female that presents for injury to right knee and also chronic back pain. The patient has a longstanding history of ankylosing spondylosis, and has chronic pain issues she has had several recent falls was seen in the ER last week and had an x-ray of her pelvis because she tripped and fell. She says she has seen orthopedics and had steroid injections in both her hips and her lumbar spine she had an MRI within the last month and she has no surgical issues and they are going to proceed with physical therapy and pain management. Pain management actually called today and they are setting up an appointment and they are to discuss when that for spinalbe tomorrow. She is here now because she is having pain in her right lumbar region down the right buttock she slipped and fell and struck her right knee. She has an abrasion and knee pain. Nursing had noted that the patient complained of incontinence I discussed that with the patient she does not have any urinary or fecal incontinence now she said that she had some bladder issues about a month orso ago but she also noted that she had an MRI since then at [facility] and we will investigatethe findings of that. There is no new acute incontinence no fever chills or sweats no abdominal pain. No red flags for IV drug abuse leading to disc space or CART DRIVER infection and no anticoagulant use increasing risk for any CART DRIVER bleeding.. Focused Physical exam: HEART: Regular rate and rhythm no murmur or thrill or rub, strong heart tones ABDOMEN: Soft and nontender no guarding rebound liver and spleen normal there is no palpable massesor aneurysm identified BACK: There is mild diffuse paralumbar tenderness, no thoracic or flank pain. NEURO: Cranial nerves II through XII are intact, motor and sensory exams are intact and normal, muscle strength is 5/5, deep tendon reflexes are 2/4, sensation to touch and pain is intact and normal,no ataxia, normal gait, no focal findings noted. PSYCH: Awake alert oriented, normal mood and affect. EXTREMITIES: Good muscle tone and strength, reflexes are symmetric bilaterally, no signs of any muscle wasting, SLRs intact and normal without significant pain. She has tenderness with an abrasion onthe right lateral patellar region. Plan/MDM: Clinically there is no sign of spinal nerve root or cord compression, patient has normal reflexes, normal motor and sensory exam, no paraparesis or paraplegia, and no saddle anesthesia. Emergency magnetic resonance imaging/CT not indicated. In addition, no sign suggesting an acute abdominal process including aneurysm or significant renal dysfunction or abnormalities. She has tenderness in her right knee so I am going order an x-ray of that. External note reviewed through [facility] care everywhere MRI report dated 08/17/2022 shows a normal spinal cord no soft tissue abnormalities and only some annular disc bulging at L4-5 clearly not representing any spinal nerve root or cord compression. External note reviewed by myself through care everywhere on [facility] CT report on 08/31/2022 CT thoracicand lumbar spine no bony abnormalities. Clinically here given that she has no acute signs of benefit or cord compression and her physical exam is essentially normal she has had an MRI and CT imaging within the last month and I do not believe repeating any imaging studies clinically indicated at this point time. She will be treated symptomatically department but I will x-ray her knee to make sure there is no fracture. All diagnostic, treatment, and disposition decisions were made by myself in conjunction with the SURINDER. For all further details of the patient's emergency department visit, please see the full medical record and documentation. Comment: Please note this report has been produced using speech recognition software and may contain errors related to that system including errors in grammar, punctuation, and spelling as well as words and phrases that may be inappropriate. If there are any questions or concerns please feel free to contact the dictating provider for clarification EPHRAIM CARDONA MD Acute Care [facility] Ephraim Cardona MD 09/13/22 3488 [facility] [employer] Phone: [phone] Hospital Discharge instructions* Discharge Instructions* Mario Hurt PA-C - 09/09/2022 6:54 PM EDT Follow up with your pain management doctor and spine doctor as soon as possible. documented in this [facility] [place]07-09-2023 Emergency department Note* Eli Pagan RN - 09/09/2022 6:47 PM EDT Provider at bedside Eli Pagan RN 09/09/[address] [id number] Emergency department Note* Eli Pagan RN - 09/09/2022 6:47 PM EDT Provider at bedside Eli Pagan RN 09/09/22 1847 * Eli Pagan RN - 09/09/2022 6:03 PM EDT Provider at [facility] Eli Pagan RN 09/09/22 9148 * Mario Hurt PA-C - 09/09/2022 11:56 AM EDT Emergency Department Encounter [facility] EMERGENCY DEPT Patient: Db Doan : 1970 Date of Evaluation: 09/09/2022 ED Provider: Mario Hurt PA-C As the [id number], I performed a medical screening history and physical exam on this patient. HISTORY OF PRESENT ILLNESS In brief, Db Doan is a 52 y.o. female that presents for generalized shakiness, has been falling more often recently, states she has history of ankylosing spondylitis, her spine surgeon referred her to pain management 2 weeks ago. They recommended steroid injections but she feels like these arenot working. A few weeks ago she fell onto her right hip and since then feels like she has some gait instability causing more falls. Today she tripped and fell and braced her right knee. She also ranout of her seizure medications recently and was off of them for 4 days, refilled them today and took them today. 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 She denies head or neck injury. Deniesbowel or bladder incontinence or retention or saddle anesthesia, recent spine access or surgery. PHYSICAL EXAM ED Triage Vitals [09/09/22 1204] Temp Heart Rate Resp BP 36.4 C (97.6 F) 103 18 (!) 146/92 SpO2 Temp src Heart Rate Source Patient Position 98 % -- -- -- BP Location FiO2 (%) -- -- On brief exam, anxious tearful female, heart borderline tachycardic with regular rhythm, lungs clear to auscultation. Paraspinous lumbar muscular tenderness noted. She is ambulatory with independent steady gait. We will initiate diagnostics/treatments as indicated and place in main ED as soon as available. Mario Hurt PA-C [employer] Mario Hurt PA-C 09/09/22 1829 * Matt Rosado MD - 09/09/2022 11:56 AM EDT Emergency Department Encounter [facility] EMERGENCY DEPT Patient: Db Doan : 1970 Date of Evaluation: 09/09/2022 ED Supervising Physician: Matt Rosado MD I independently examined and evaluated Db Doan. This will serve as my Supervisory note and shared attestation. I did perform a substantive portion of the visit including all aspects of the Medical Decision Making. I wore appropriate PPE for the entirety of this encounter. In brief, Db Doan is a 52 y.o. that presents to the emergency department with complaint of hippain and back pain. States her legs give out and she falls. No bowel or bladder incontinence. She has been seen for back problems and has disc disease. She is been recommended by orthopedic surgery to have evaluation by pain management, injections and physical therapy. Focused exam: Awake and alert. Afebrile. Nontoxic. Lungs clear to auscultation. Heart regular rate and rhythm. Tender in the bilateral low back. Straight leg raise causes back pain. Good range of motion of the hips and knees bilaterally. Neurologic exam is no gross deficits. X-ray of the pelvis shows no acute fracture or dislocation. Interpreted by this examiner Brief ED course/MDM: Patient has exacerbation of her musculoskeletal back pain. Clinically there isno signs of cauda equina. I do feel she can follow-up as an outpatient. Return if worse or new symptoms or problems. All diagnostic, treatment, and disposition decisions were made by myself in conjunction with the SURINDER. For all further details of the patient's emergency department visit, please see their documentation. (Comment: Please note this report has been produced using speech recognition software and may contain errors related to that system including errors in grammar, punctuation, and spelling, as well as words and phrases that may be inappropriate. If there are any questions or concerns please feel freeto contact the dictating provider for clarification.) Matt Rosado MD Acute Care [facility] Matt Rosado MD 09/09/22 181 * Priscila Hurtado RN - 09/09/2022 11:56 AM EDT Bed: 03 Expected date: Expected time: Means of arrival: Comments: triage Priscila Hurtado RN 09/09/22 1720 documented in this [facility] [place]07-09-2023 Emergency department Note* Eli Pagan RN - 09/09/2022 6:03 PM EDT Provider at [facility] Eli Pagan RN 09/09/[address] [id number] Emergency department Note* Priscila Hurtado RN - 09/09/2022 11:56 AM EDT Bed: 03 Expected date: Expected time: Means of arrival: Comments: triage Priscila Hurtado RN 09/09/[address] [id number] Physician Emergency department Note* Mario Hurt PA-C - 09/09/2022 11:56 AM EDT Emergency Department Encounter [facility] EMERGENCY DEPT Patient: Db Doan : 1970 Date of Evaluation: 09/09/2022 ED Provider: Mario Hurt PA-C As the [id number], I performed a medical screening history and physical exam on this patient. HISTORY OF PRESENT ILLNESS In brief, Db Doan is a 52 y.o. female that presents for generalized shakiness, has been falling more often recently, states she has history of ankylosing spondylitis, her spine surgeon referred her to pain management 2 weeks ago. They recommended steroid injections but she feels like these arenot working. A few weeks ago she fell onto her right hip and since then feels like she has some gait instability causing more falls. Today she tripped and fell and braced her right knee. She also ranout of her seizure medications recently and was off of them for 4 days, refilled them today and took them today. 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 She denies head or neck injury. Deniesbowel or bladder incontinence or retention or saddle anesthesia, recent spine access or surgery. PHYSICAL EXAM ED Triage Vitals [09/09/22 1204] Temp Heart Rate Resp BP 36.4 C (97.6 F) 103 18 (!) 146/92 SpO2 Temp src Heart Rate Source Patient Position 98 % -- -- -- BP Location FiO2 (%) -- -- On brief exam, anxious tearful female, heart borderline tachycardic with regular rhythm, lungs clear to auscultation. Paraspinous lumbar muscular tenderness noted. She is ambulatory with independent steady gait. We will initiate diagnostics/treatments as indicated and place in main ED as soon as available. Mario Hurt PA-C [facility] [place] [employer] Mario Hurt PA-C 09/09/[address] [facility] [id number] Physician Emergency department Note* Matt Rosado MD - 09/09/2022 11:56 AM EDT Emergency Department Encounter [facility] EMERGENCY DEPT Patient: Db Doan : 1970 Date of Evaluation: 09/09/2022 ED Supervising Physician: Matt Rosado MD I independently examined and evaluated Db Doan. This will serve as my Supervisory note and shared attestation. I did perform a substantive portion of the visit including all aspects of the Medical Decision Making. I wore appropriate PPE for the entirety of this encounter. In brief, Db Doan is a 52 y.o. that presents to the emergency department with complaint of hippain and back pain. States her legs give out and she falls. No bowel or bladder incontinence. She has been seen for back problems and has disc disease. She is been recommended by orthopedic surgery to have evaluation by pain management, injections and physical therapy. Focused exam: Awake and alert. Afebrile. Nontoxic. Lungs clear to auscultation. Heart regular rate and rhythm. Tender in the bilateral low back. Straight leg raise causes back pain. Good range of motion of the hips and knees bilaterally. Neurologic exam is no gross deficits. X-ray of the pelvis shows no acute fracture or dislocation. Interpreted by this examiner Brief ED course/MDM: Patient has exacerbation of her musculoskeletal back pain. Clinically there isno signs of cauda equina. I do feel she can follow-up as an outpatient. Return if worse or new symptoms or problems. All diagnostic, treatment, and disposition decisions were made by myself in conjunction with the SURINDER. For all further details of the patient's emergency department visit, please see their documentation. (Comment: Please note this report has been produced using speech recognition software and may contain errors related to that system including errors in grammar, punctuation, and spelling, as well as words and phrases that may be inappropriate. If there are any questions or concerns please feel freeto contact the dictating provider for clarification.) Matt Rosado MD [facility] Matt Rosado MD 09/09/221811 [employer] Phone: [phone] Telephone encounter Note* Telephone Encounter - Krys Cosby MA - 09/05/2022 12:25 PM EDT Scheduled new patient appointment [id number] Miscellaneous Notes* Telephone Encounter - Krys Cosby MA - 09/05/2022 12:25 PM EDT Scheduled new patient appointment * Telephone Encounter - Fely Ellington RN - 09/04/2022 5:22 PM EDT S: Aurelia FINLEY, from ED spoke with [facility] nurse regarding schedule appointment B: Onset of symptoms/concern today A: Requesting to have follow up pain management appointment scheduled. Pt seen in ED today for right Sciatica pain. R: Message to be sent to office for further assistance for Follow up ED appointment. Aurelia FINLEY, advised message to be sent to office and scheduling to follow up with patient tomorrow for appointment to be scheduled. documented in this [facility] [place]07-04-2023 Telephone encounter Note* Telephone Encounter - Fely Ellington RN - 09/04/2022 5:22 PM EDT S: Aurelia FINLEY, from ED spoke with [facility] nurse regarding schedule appointment B: Onset of symptoms/concern today A: Requesting to have follow up pain management appointment scheduled. Pt seen in ED today for right Sciatica pain. R: Message to be sent to office for further assistance for Follow up ED appointment. Aurelia FINLEY, advised message to be sent to office and scheduling to follow up with patient tomorrow for appointment to be scheduled. [id number] Hospital Discharge instructions* Discharge Instructions* Angela Flores PA-C - 09/04/2022 5:20 PM EDT Return to the ER with new or worsening symptoms including uncontrolled pain, numbness, tingling, orweakness of your arms or legs, inability to walk, or loss of control of your bowel or bladder function. Follow up with pain management for further evaluation and treatment of your pain. * Attachments The following attachments cannot be sent through Care Everywhere. * Sciatica (Montenegr[place]) documented in this [facility] [place]07-04-2023 Emergency department Note* Brenda Arthur RN - 09/04/2022 4:40 PM EDT Ambulating without difficulty. Brenda Arthur RN 09/04/221639 [facility] [id number] Emergency department Note* Brenda Arthur RN - 09/04/2022 4:40 PM EDT Ambulating without difficulty. Brenda Arthur RN 09/04/22 1640 * Angela Flores PA-C - 09/04/2022 1:58 PM EDT EMERGENCY DEPARTMENT ENCOUNTER Pt Name: Db Doan Birthdate 1970 Date of evaluation: 09/04/2022 ED Provider: Angela Flores PA-C Patient seen independently within my scope of practice with an Emergency Medicine attending available for supervision. CHIEF COMPLAINT Chief Complaint Patient presents with Fall Pt states hx of sciatica & spinal stenosis. Per pt she fell 3 wks ago which caused her everydaypain to radiate to her R side & since then she has gotten progressively worse everyday. Pt states 2 falls today and three yesterday but she falls most days. Denies ever hitting her head or LOC, states her back just gives out & she'll fall to her knees or on her butt. HISTORY OF PRESENT ILLNESS (Location/Symptom, Timing/Onset, Context/Setting, Quality, Duration, Modifying Factors, Severity) Note limiting factors. I wore appropriate PPE for the entirety of this encounter. HPI Db Doan is a 52 y.o. who presents to the emergency department with complaint of worsening backpain leading to falls. Patient says that she has a history of sciatic pain and spinal stenosis, shesaid that the pain has been making it difficult for her to walk which is led to her sustaining several falls. She says that today she fell twice onto her knees and yesterday she fell onto her tailbone, where she is having persistent pain. She otherwise denies any new or worsening numbness, tingling, weakness in her legs. No saddle anesthesia or loss control of her bowel or bladder function. No recent spinal surgeries or procedures. Denies any fevers, chills, nausea, vomiting. No chest pain, shor tness of breath, or any recent sick contacts. Denies history of diabetes or any immunocompromise status. 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 Limitations to history: None Outside historians: None REVIEW OF SYSTEMS Review of Systems Constitutional: Negative for chills and fever. HENT: Negative for congestion and sore throat. Eyes: Negative for visual disturbance. Respiratory: Negative for cough and shortness of breath. Cardiovascular: Negative for chest pain. Gastrointestinal: Negative for abdominal pain, nausea and vomiting. Genitourinary: Negative for dysuria and hematuria. Musculoskeletal: Positive for back pain and gait problem. Negative for arthralgias and myalgias. Skin: Negative for color change and rash. Neurological: Negative for dizziness and syncope. Psychiatric/Behavioral: Negative. All other systems reviewed and are negative. Pertinent positives and negatives as per HPI. PAST MEDICAL HISTORY No past medical history on file. SURGICAL HISTORY No past surgical history on file. CURRENT MEDICATIONS Previous Medications No medications on file ALLERGIES Patient has no known allergies. FAMILY HISTORY No family history on file. SOCIAL HISTORY Social History Socioeconomic History Marital status: Unknown SCREENINGS PHYSICAL EXAM ED Triage Vitals [09/04/22 1402] Temp Heart Rate Resp BP 37.4 C (99.4 F) 97 14 (!) 143/91 SpO2 Temp Source Heart Rate Source Patient Position 98 % Temporal Monitor -- BP Location FiO2 (%) -- -- Physical Exam Vitals and nursing note reviewed. Constitutional: General: She is not in acute distress. Appearance: She is well-developed. Cardiovascular: Rate and Rhythm: Normal rate and regular rhythm. Heart sounds: No murmur heard. Pulmonary: Effort: Pulmonary effort is normal. No respiratory distress. Breath sounds: Normal breath sounds. Abdominal: General: Bowel sounds are normal. There is no distension. Palpations: Abdomen is soft. Tenderness: There is no abdominal tenderness. There is no guarding or rebound. Musculoskeletal: Right lower leg: No edema. Left lower leg: No edema. Comments: No midline tenderness of the cervical, thoracic, lumbar spine. Generally tender palpationover the paraspinal muscles of the lumbar spine. Normal range of motion in the hips, knees, ankles,able to wiggle toes. Strength 5 out of 5 in hip flexion extension, knee flexion extension, plantar and dorsi flexion. Sensation intact through the L1-S1 distribution. Palpable DP and PT pulses bilaterally. Skin: General: Skin is warm and dry. Capillary Refill: Capillary refill takes less than 2 seconds. Neurological: Mental Status: She is alert and oriented to person, place, and time. Psychiatric: Mood and Affect: Mood normal. Behavior: Behavior normal. DIAGNOSTIC RESULTS RADIOLOGY (Per Emergency Physician): Interpretation per the Radiologist below, if available at the time of this note: XR thoracic spine 3 views Final Result No significant radiographic abnormality. Report Dictated on Electronically Signed By: Sandeep Medina Electronically Signed Date/Time: 09/04/2022 4:02 PM EDT XR sacrum coccyx 2+ views Final Result No significant radiographic abnormality. Report Dictated on Electronically Signed By: Sandeep Medina Electronically Signed Date/Time: 09/04/2022 4:01 PM EDT XR lumbar spine 2 or 3 views Final Result Negative examination of the lumbar spine. Report Dictated on Electronically Signed By: Sandeep Medina Electronically Signed Date/Time: 09/04/2022 3:49 PM EDT LABS: Labs Reviewed - No data to display All other labs were within normal range or not returned as of this dictation. EMERGENCY DEPARTMENT COURSE and DIFFERENTIAL DIAGNOSIS/MDM: Vitals: Vitals: 09/04/22 1402 BP: (!) 143/91 Pulse: 97 Resp: 14 Temp: 37.4 C (99.4 F) TempSrc: Temporal SpO2: 98% Weight: 63.5 kg (140 lb) Height: 1.702 m (5' 7) Medications Lidocaine 4 % patch 1 patch (1 patch TransDERmal Medication Applied 09/04/221628) ketorolac (Toradol) injection 15 mg (15 mg IntraMUSCular Given 09/04/221518) orphenadrine (Norflex) injection 60 mg (60 mg IntraMUSCular Given 09/04/221518) oxyCODONE-acetaminophen (Percocet) 5-325 MG per tablet 1 tablet (1 tablet Oral Given 09/04/221517) oxyCODONE-acetaminophen (Percocet) 5-325 MG per tablet 1 tablet (1 tablet Oral Given 09/04/221626) ketorolac (Toradol) injection 15 mg (15 mg IntraMUSCular Given 09/04/221627) MDM elements: The patient presented with chief complaint of worsening acute on chronic back pain causing her difficulty with ambulation. On my exam she is alert, oriented, no acute distress per vitalsigns are stable unremarkable. No focal neurological or vascular deficits noted in the bilateral lower extremities. No further evidence of injury or trauma. The differential diagnosis associated with this patient's presentation includes sciatic pain, rule out fracture, dislocation, consider strain, sprain, muscular spasm. Our workup consisted of ordering/reviewing: X-ray evaluation of the thoracic, lumbar spine, and coccyx obtained. Demonstrates no acute traumatic process. Patient provided with symptomatic management,reports improvement in her pain. She is ambulatory without difficulty in the emergency department. Reports that her symptoms have significantly improved. Says that she has an appointment coming up with pain management but she has not heard back from them, so we will provide another referral to do this. Discussed return precautions, outpatient follow-up, discharged in stable condition. The patient will be Discharged. Patient is in agreement with this plan. I completed a structured, evidence-based clinical evaluation to screen for acute non-traumatic spinal emergencies. The patient has a normal detailed neurologic exam and a low red flag score. The evidence indicates that the patient is very low risk for an acute spinal emergency and this is consistent with my clinical intuition. The risk of further workup is higher than the likelihood of the patient having a spinal epidural abscess or other dangerous emergency spinal condition. It is, therefore, in the patient s best interest not to do additional emergent testing at this time. PROCEDURES: Unless otherwise noted below, none Procedures CRITICAL CARE TIME FINAL IMPRESSION 1. Sciatic nerve pain, right 2. Fall, initial encounter DISPOSITION Discharge 09/04/2022 05:16:48 PM PATIENT REFERRED TO: [facility] [facility] [id number] DISCHARGE MEDICATIONS: New Prescriptions KETOROLAC (TORADOL) 10 MG TABLET Take 1 tablet (10 mg) by mouth every 6 hours as needed for moderate pain (4-6) for up to 5 days. LIDOCAINE (LIDODERM) 5 % PATCH Apply 1 patch topically daily for 5 days. Remove & discard patchwithin 12 hours or as directed by MD. OXYCODONE (ROXICODONE) 5 MG IMMEDIATE RELEASE TABLET Take 1 tablet (5 mg) by mouth every 6 hours asneeded for severe pain (7-10) for up to 3 days. (Comment: Please note this report has been produced using speech recognition software and may contain errors related to that system including errors in grammar, punctuation, and spelling, as well as words and phrases that may be inappropriate. If there are any questions or concerns please feel freeto contact the dictating provider for clarification.) Angela Flores PA-C (electronically signed) Emergency Medicine Provider Angela Flores PA-C 09/04/22 1734 * Kalpana Wong RN - 09/04/2022 1:58 PM EDT Bed: 07 Expected date: Expected time: Means of arrival: Comments: triage Kalpana Wong RN 09/04/22 1429 documented in this [facility] [place]07-04-2023 Emergency department Note* Kalpana Wong RN - 09/04/2022 1:58 PM EDT Bed: 07 Expected date: Expected time: Means of arrival: Comments: triage Kalpana Wong RN 09/04/[address] [id number] Emergency department Note* Angela Flores PA-C - 09/04/2022 1:58 PM EDT EMERGENCY DEPARTMENT ENCOUNTER Pt Name: Db Doan Birthdate 1970 Date of evaluation: 09/04/2022 ED Provider: Angela Flores PA-C Patient seen independently within my scope of practice with an Emergency Medicine attending available for supervision. CHIEF COMPLAINT Chief Complaint Patient presents with Fall Pt states hx of sciatica & spinal stenosis. Per pt she fell 3 wks ago which caused her everydaypain to radiate to her R side & since then she has gotten progressively worse everyday. Pt states 2 falls today and three yesterday but she falls most days. Denies ever hitting her head or LOC, states her back just gives out & she'll fall to her knees or on her butt. HISTORY OF PRESENT ILLNESS (Location/Symptom, Timing/Onset, Context/Setting, Quality, Duration, Modifying Factors, Severity) Note limiting factors. I wore appropriate PPE for the entirety of this encounter. HPI Db Doan is a 52 y.o. who presents to the emergency department with complaint of worsening backpain leading to falls. Patient says that she has a history of sciatic pain and spinal stenosis, shesaid that the pain has been making it difficult for her to walk which is led to her sustaining several falls. She says that today she fell twice onto her knees and yesterday she fell onto her tailbone, where she is having persistent pain. She otherwise denies any new or worsening numbness, tingling, weakness in her legs. No saddle anesthesia or loss control of her bowel or bladder function. No recent spinal surgeries or procedures. Denies any fevers, chills, nausea, vomiting. No chest pain, shor tness of breath, or any recent sick contacts. Denies history of diabetes or any immunocompromise status. 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 Limitations to history: None Outside historians: None REVIEW OF SYSTEMS Review of Systems Constitutional: Negative for chills and fever. HENT: Negative for congestion and sore throat. Eyes: Negative for visual disturbance. Respiratory: Negative for cough and shortness of breath. Cardiovascular: Negative for chest pain. Gastrointestinal: Negative for abdominal pain, nausea and vomiting. Genitourinary: Negative for dysuria and hematuria. Musculoskeletal: Positive for back pain and gait problem. Negative for arthralgias and myalgias. Skin: Negative for color change and rash. Neurological: Negative for dizziness and syncope. Psychiatric/Behavioral: Negative. All other systems reviewed and are negative. Pertinent positives and negatives as per HPI. PAST MEDICAL HISTORY No past medical history on file. SURGICAL HISTORY No past surgical history on file. CURRENT MEDICATIONS Previous Medications No medications on file ALLERGIES Patient has no known allergies. FAMILY HISTORY No family history on file. SOCIAL HISTORY Social History Socioeconomic History Marital status: Unknown SCREENINGS PHYSICAL EXAM ED Triage Vitals [09/04/22 1402] Temp Heart Rate Resp BP 37.4 C (99.4 F) 97 14 (!) 143/91 SpO2 Temp Source Heart Rate Source Patient Position 98 % Temporal Monitor -- BP Location FiO2 (%) -- -- Physical Exam Vitals and nursing note reviewed. Constitutional: General: She is not in acute distress. Appearance: She is well-developed. Cardiovascular: Rate and Rhythm: Normal rate and regular rhythm. Heart sounds: No murmur heard. Pulmonary: Effort: Pulmonary effort is normal. No respiratory distress. Breath sounds: Normal breath sounds. Abdominal: General: Bowel sounds are normal. There is no distension. Palpations: Abdomen is soft. Tenderness: There is no abdominal tenderness. There is no guarding or rebound. Musculoskeletal: Right lower leg: No edema. Left lower leg: No edema. Comments: No midline tenderness of the cervical, thoracic, lumbar spine. Generally tender palpationover the paraspinal muscles of the lumbar spine. Normal range of motion in the hips, knees, ankles,able to wiggle toes. Strength 5 out of 5 in hip flexion extension, knee flexion extension, plantar and dorsi flexion. Sensation intact through the L1-S1 distribution. Palpable DP and PT pulses bilaterally. Skin: General: Skin is warm and dry. Capillary Refill: Capillary refill takes less than 2 seconds. Neurological: Mental Status: She is alert and oriented to person, place, and time. Psychiatric: Mood and Affect: Mood normal. Behavior: Behavior normal. DIAGNOSTIC RESULTS RADIOLOGY (Per Emergency Physician): Interpretation per the Radiologist below, if available at the time of this note: XR thoracic spine 3 views Final Result No significant radiographic abnormality. Report Dictated on Electronically Signed By: Sandeep Medina Electronically Signed Date/Time: 09/04/2022 4:02 PM EDT XR sacrum coccyx 2+ views Final Result No significant radiographic abnormality. Report Dictated on Electronically Signed By: Sandeep Medina Electronically Signed Date/Time: 09/04/2022 4:01 PM EDT XR lumbar spine 2 or 3 views Final Result Negative examination of the lumbar spine. Report Dictated on Electronically Signed By: Sandeep Medina Electronically Signed Date/Time: 09/04/2022 3:49 PM EDT LABS: Labs Reviewed - No data to display All other labs were within normal range or not returned as of this dictation. EMERGENCY DEPARTMENT COURSE and DIFFERENTIAL DIAGNOSIS/MDM: Vitals: Vitals: 09/04/22 1402 BP: (!) 143/91 Pulse: 97 Resp: 14 Temp: 37.4 C (99.4 F) TempSrc: Temporal SpO2: 98% Weight: 63.5 kg (140 lb) Height: 1.702 m (5' 7) Medications Lidocaine 4 % patch 1 patch (1 patch TransDERmal Medication Applied 09/04/221628) ketorolac (Toradol) injection 15 mg (15 mg IntraMUSCular Given 09/04/221518) orphenadrine (Norflex) injection 60 mg (60 mg IntraMUSCular Given 09/04/221518) oxyCODONE-acetaminophen (Percocet) 5-325 MG per tablet 1 tablet (1 tablet Oral Given 09/04/221517) oxyCODONE-acetaminophen (Percocet) 5-325 MG per tablet 1 tablet (1 tablet Oral Given 09/04/221626) ketorolac (Toradol) injection 15 mg (15 mg IntraMUSCular Given 09/04/221627) MDM elements: The patient presented with chief complaint of worsening acute on chronic back pain causing her difficulty with ambulation. On my exam she is alert, oriented, no acute distress per vitalsigns are stable unremarkable. No focal neurological or vascular deficits noted in the bilateral lower extremities. No further evidence of injury or trauma. The differential diagnosis associated with this patient's presentation includes sciatic pain, rule out fracture, dislocation, consider strain, sprain, muscular spasm. Our workup consisted of ordering/reviewing: X-ray evaluation of the thoracic, lumbar spine, and coccyx obtained. Demonstrates no acute traumatic process. Patient provided with symptomatic management,reports improvement in her pain. She is ambulatory without difficulty in the emergency department. Reports that her symptoms have significantly improved. Says that she has an appointment coming up with pain management but she has not heard back from them, so we will provide another referral to do this. Discussed return precautions, outpatient follow-up, discharged in stable condition. The patient will be Discharged. Patient is in agreement with this plan. I completed a structured, evidence-based clinical evaluation to screen for acute non-traumatic spinal emergencies. The patient has a normal detailed neurologic exam and a low red flag score. The evidence indicates that the patient is very low risk for an acute spinal emergency and this is consistent with my clinical intuition. The risk of further workup is higher than the likelihood of the patient having a spinal epidural abscess or other dangerous emergency spinal condition. It is, therefore, in the patient s best interest not to do additional emergent testing at this time. PROCEDURES: Unless otherwise noted below, none Procedures CRITICAL CARE TIME FINAL IMPRESSION 1. Sciatic nerve pain, right 2. Fall, initial encounter DISPOSITION Discharge 09/04/2022 05:16:48 PM PATIENT REFERRED TO: [facility] [place] [address] DISCHARGE MEDICATIONS: New Prescriptions KETOROLAC (TORADOL) 10 MG TABLET Take 1 tablet (10 mg) by mouth every 6 hours as needed for moderate pain (4-6) for up to 5 days. LIDOCAINE (LIDODERM) 5 % PATCH Apply 1 patch topically daily for 5 days. Remove & discard patchwithin 12 hours or as directed by MD. OXYCODONE (ROXICODONE) 5 MG IMMEDIATE RELEASE TABLET Take 1 tablet (5 mg) by mouth every 6 hours asneeded for severe pain (7-10) for up to 3 days. (Comment: Please note this report has been produced using speech recognition software and may contain errors related to that system including errors in grammar, punctuation, and spelling, as well as words and phrases that may be inappropriate. If there are any questions or concerns please feel freeto contact the dictating provider for clarification.) Angela Flores PA-C (electronically signed) Emergency Medicine Provider Angela Flores PA-C 09/04/[address] [id number] Discharge instructions* Discharge Instructions* KRYSTAL Bell CNP - 07/31/2022 3:42 PM EDT You may continue ibuprofen as needed for pain, Lidoderm patches 12 hours on, 12 hours off for pain.Follow-up with your pain management doctor as planned tomorrow. * Attachments The following attachments cannot be sent through Care Everywhere. * Back: Preventing Injuries (Montenegrin) documented in this encounterBON [facility] Work Phone: 1(145) 465-229803-01-2023 Instructions* Patient Instructions* Kraig Gómez DO - [...] further multi-disciplinary treatment options. documented in this encounter03-01-2023 History of Present illness Narrative* Kraig Gómez DO - 05/02/2022 1:00 PM EST Images from the original note were not included. [facility] - Medical [...] patient of Dr. Khoa Gallagher MD in [facility] -Has undergone multiple left SI joint injections [...] Cymbalta Celebrex Therapies None Prior Treatment: Medications [place] Gabapentin-prior to hernia surgery Medrol dose pack Therapies Physical therapy years ago for low back pain Prior spine interventions: Left SI joint 02/02/19-no benefit Left SI joint 03/17/19-no benefit Left hip injection 03/07/19 Lumbar epidural injection 11/2014-no improvement Prior spine surgery: None Previously treated by: Dr Khoa Gallagher-pain management, [place], [place] Dr Doug Faustin-Spine Medicine, for neck [...] Previously treated by pain management physician in [place], [place]. Underwent left SI joint injection x2 [...] interventions local to her rather than at [facility] due to distance. Patient was encouraged to [...] improved after course of PT. -Patient states [facility] is too far from her, so she will seek treatment locally with Dr. Gallagher 5) Consultations: -None 6) Follow -up: -As needed after course of PT. -Patient instructed to call/seek urgent medical care with worsening of symptoms or change of neurological status. 7) Future treatment considerations: -XR lumbar if seeing further treatment at [facility] -[facility] for pain recovery Matt Serrano DO Spine Medicine Fellow Attending Note: Barger findings confirmed. Patient examined. Discussed with the fellow and the patient. All information in the note above was confirmed by me and edited as necessary for accurate information. Plan as outlined. I spent a total of 60 minutes on the date of the service which included preparing to see the patient, [id number] patient care, completing clinical documentation, obtaining and/or reviewing separately obtained history, performing a medically appropriate examination, counseling and educating the pat ient/family/caregiver, ordering medications, tests, or procedures, independently interpreting results (not separately reported), and communicating results to the patient/family/caregiver. SIGNATURE: Kraig Gómez DO PATIENT NAME: Db Doan DATE: May 02, 2022 TIME: 12:19 PM documented in this encounter02-17-2023 History of Present illness Narrative* Ghada Lincoln [...] Health Provider or Pain Management Provider at [facility]? No If answer is YES please schedule directly with surgeon, triage does not need to be completed. Is this a self-referral No If not, who is the Referring Provider Dr. Jessenia Poe's office referring the patient to be seen [...] the MRI/CT/myelogram was completed: imaging report in [facility] [place] [facility] [address], [place] [address] MRI/CT/myelogram viewable in Epic: No If not, please provide [phone] to fax in imaging reports for review. [...] where the surgery was completed: Additional Comments [phone] documented in this encounter04-30-2021 History of Present illness Narrative* Sheridan Sanchez - 07/01/2020 4:48 PM EDT CLINICAL PHARMACY NOTE: MEDS TO [facility] Patient?: No Total # of Prescriptions Filled: 0 The following medications were delivered to the patient: norco 5-325 mg Total # of Interventions Completed: 7 Time Spent (min): 60 Additional Documentation: * Ban Blanc OT - 07/01/2020 3:35 PM EDT Occupational Therapy Date:07/01/2020 Patient Name: Db Doan Room: [address] [place] [address]-A Occupational Therapy (OT) order received,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 Primary Care Provider Active Patric Dias MD Emergency Provider Active Automotive Painter Helper Relationship Specialty Start Date End Date Jessenia Miller [address] [facility] [place] [address] PCP - General Family Medicine 03/09/22 Jessenia Miller [address] [facility] [place] [address] Referring Family Medicine 03/09/22 Jaime Davis [address] [place] [phone] Referring Orthopedics 10/15/22 Automotive Painter Helper Relationship Specialty Start Date End Date Jaime Davis MD [address] [place] [id number] PCP - General 10/06/22 Team Status: Inactive [...] December 21, 2022 End: December 21, 2022 Automotive Painter Helper Relationship Specialty Start Date End Date Jaime Davis MD [address] [place] [address], [address] [id number] PCP - General 10/06/22 Automotive Painter Helper Relationship Specialty Start Date End Date Jaime Davis MD [address] [place] [address], [address] [id number] PCP - General 10/06/22 Automotive Painter Helper Relationship Specialty Start Date End Date Jessenia Miller DO [address] [place] [address] PCP - General Family Medicine 12/03/18 Automotive Painter Helper Relationship Specialty Start Date End Date Jaime Davis [address] [place] [address], [address] [address] PCP - General 09/13/22 Automotive Painter Helper Relationship Specialty Start Date End Date Jaime Davis [address] [place] [address], [address] [address] PCP - General 09/13/22 Team Status: Inactive Member Role Status Dates Jaime Davis Primary Care Provider Active Sta rt: December 21, 2022 End: December 21, 2022 Homer Soria MD Emergency Provider Active Sta rt: December 21, 2022 End: December 21, 2022 Raudel Chawla MD Attending Provider Active St art: December 21, 2022 Team Status: Inactive Member Role Status Dates Jaime Davis Primary Care Provider Active Sta rt: March 06, 2023 End: March 07, 2023 Kathia Gallego MD Emergency Provider Active Star t: March 06, 2023 End: March 07, 2023 Automotive Painter Helper Relationship Specialty Start Date End Date Jaime Davis MD [address] [place] [address], [address] [address] PCP - General 10/06/22 Automotive Painter Helper Relationship Specialty Start Date End Date Jaime Davis [address] [place] [address], [address] [phone] PCP - General 09/13/22 Team Status: Active Member Role Status Dates None primary care physician Active Start : April 04, 2023 Siddhartha Crisostomo MD EMERGENCY Active Start: harrogate 2023 None FAMILY Active Start: April 04, 2023 DB DOAN Guarantor Active Start: 2023 Automotive Painter Helper Relationship Specialty Start Date End Date Jaime Davis [address] [place] [address], [address] [place], [place] [address] PCP - General 09/13/22 Automotive Painter Helper Relationship Specialty Start Date End Date Jessenia Miller DO [address] [place], [place] [phone] PCP - General Family Medicine 12/03/18 Automotive Painter Helper Relationship Specialty Start Date End Date Maria Elena Montalvo MD [address] [place] [phone] PCP - General Internal Medicine 05/06/23 Team Status: Active Member Role Status Dates None primary care physician Active Start : May 17, 2023 Bob Dominguez MD EMERGENCY Active Start: May 17, 2023 None FAMILY Active Start: May 162023 DB DOAN Guarantor Active Start: May 17, 2023 Automotive Painter Helper Relationship Specialty Start Date End Date Maria Elena Montalvo MD [address] [address] PCP - General Internal Medicine 05/24/23 Team Status: Active Member Role Status Dates No Primary Care Physician Primary Care Provider Active Team Status: Inactive Member Role Status Dates Dr. Addy Faith MD Emergency Provider Active No Primary Care Physician Primary Care Provider Active Autom[employer] Painter Helper Relationship Specialty Start Date End Date Maria Elena Montalvo MD [address] [place] [phone] PCP - General Internal Medicine 05/06/23 Team [...] 2023 Edwar Raygoza MD EMERGENCY Active Start: Edouard reilly 2023 None FAMILY Active Start: June 012023 DB DOAN Guarantor Active Start: June 02, 2023 Automotive Painter Helper Relationship Specialty Start Date End Date Maria Elena Montalvo MD [address] [place] [address] PCP - General Internal Medicine 05/06/23 Team Status: Inactive Member Role Status Dates No Primary Care Physician Primary Care Provider Active Dr. Jose Alfaro , DO Emergency Provider Active Team Status: Inactive Member Role Status Dates Dr. Addy Faith MD Attending Provider, Emergency Provi isaiah Active No Primary Care Physician Primary Care Provider Active Autom[employer] Painter Helper Relationship Specialty Start Date End Date Jessenia Miller [address] [place] [address] PCP - General Family Medicine 03/09/22 Jessenia Miller [address] [place] [address] Referring Family Medicine 03/09/22 Jaime Davis [address] [place] [phone] Referring Orthopedics 10/15/22 Team Status: Active Member Role Status Dates None primary care physician Active Start : August 01, 2023 Siddhartha Crisostomo MD EMERGENCY Active Start: Sonya arthur 2023 None FAMILY Active Start: July DB DOAN Guarantor Active Start: July 312023 Automotive Painter Helper Relationship Specialty Start Date End Date Maria Elena Montalvo MD [address] [place] [address] [address] [place] [address] 08/06/23 Team Status: Active Member Role Status Dates Babs Lou Emergency Provider Active Start: Ju ne 2022 Jaime Davis Primary Care Provider Active Sta rt: August 12, 2022 ER WTBS Emergency Provider Active Start: Ju ne 2022 Mike Bowen Emergency Provider Active Start: Ju ne 2022 Donald Lainez Emergency Provider Active Start: Ju ne 2022 Cuca Thomas Emergency Provider Active Start: Ju ly 2022 Togoldie Stephens Emergency Provider Active Start: Se ptember 2022 Unlisted provider (Unknown) Primary Care Provider Acti ve Start: June 15, 2023 ISIAHCHANDLER STARKS Emergency Contact #1 Active JOESPH MODENA Emergency Contact #2 Active Automotive Painter Helper Relationship Specialty Start Date End Date Maria Elena Montalvo MD [address] [facility] [address] [place] [address] PCP - General Internal Medicine 05/24/23 Automotive Painter Helper Relationship Specialty Start Date End Date Jaime Davis MD [address] [place] [address], [address] [place], [place] [address] PCP - General 10/06/22 Automotive Painter Helper Relationship Specialty Start Date End Date Maria Elena Montalvo MD [address] [place] [address] PCP - General Internal Medicine 08/12/23 Jessenia Miller [address] [place] [address] Referring Family Medicine 03/09/22 Jaime Davis [address] [place] [address] [address] [place] [address] Referring Orthopedics 10/15/22 Automotive Painter Helper Relationship Specialty Start Date End Date Maria Elena Montalvo MD [address] [place] [address] PCP - General Internal Medicine 08/12/23 Jessenia Miller [address] [facility] [place] [address] Referring Family Medicine 03/09/22 Jaime Davis [address] [phone] Referring Orthopedics 10/15/22 Automotive Painter Helper Relationship Specialty Start Date End Date Maria Elena Montalvo MD [address] [place] [address] PCP - General Internal Medicine 08/12/23 Jessenia Miller [address] [facility] [place] [address] Referring Family Medicine 03/09/22 Jaime Davis [address] [phone] Referring Orthopedics 10/15/22 Automotive Painter Helper Relationship Specialty Start Date End Date Maria Elena Montalvo MD [address] [place] [address] PCP - General Internal Medicine 08/12/23 Jessenia Miller [address] [facility] [place] [address] Referring Family Medicine 03/09/[address] [facility] 101 [place] [phone] Referring Orthopedics 10/15/22 Automotive Painter Helper Relationship Specialty Start Date End Date Maria Elena Montalvo MD [address] [facility] [address] PCP - General Internal Medicine 08/12/23 Jessenia Miller [address] [place], [place] [address] Referring Family Medicine 03/09/[address] [facility] 101 [place] [phone] Referring Orthopedics 10/15/22 Automotive Painter Helper Relationship Specialty Start Date End Date Maria Elena Montalvo MD [address] [facility] [address] [address] [place] [address] PCP - General Internal Medicine 05/24/23 Automotive Painter Helper Relationship Specialty Start Date End Date Maria Elena Montalvo MD [address] [place] [phone] PCP - General Internal Medicine 05/06/23 Automotive Painter Helper Relationship Specialty Start Date End Date Maria Elena Montalvo MD [address] [facility] [address] [place] [address] 08/06/23 Team Status: Active Member Role Status Dates None primary care physician Active Start : September 05, 2023 Edwar Raygoza MD EMERGENCY Active Start: Nii short 2023 None FAMILY Active Start: September DB DOAN Guarantor Active Start: September 042023 Automotive Painter Helper Relationship Specialty Start Date End Date Maria Elena Montalvo MD [address] [place] [address] PCP - General Internal Medicine 08/12/23 Jessenia Miller [address] [place] [address] Referring Family Medicine 03/09/22 Jaime Davis [address] [phone] Referring Orthopedics 10/15/22 Automotive Painter Helper Relationship Specialty Start Date End Date Maria Elena Montalvo MD [address] [facility] [address] [place] [address] PCP - General Internal Medicine 05/24/23 Automotive Painter Helper Relationship Specialty Start Date End Date Maria Elena Montalvo MD [address] [place] [address] PCP - General Internal Medicine 08/12/23 Jessenia Miller [address] [place] [address] Referring Family Medicine 03/09/22 Jaime Davis [address] [phone] Referring Orthopedics 10/15/22 Automotive Painter Helper Relationship Specialty Start Date End Date Maria Elena Montalvo MD [address] [place] [phone] PCP - General Internal Medicine 05/06/23 Team Status: Active Member Role Status Dates Jaime Davis Primary Care Provider Active Sta rt: November 19, 2022 Togoldie Stephens Emergency Provider Active Start: Se ptember 2022 Donald Lainez Emergency Provider Active Start: Oc tober 2022 ER WTCARY Emergency Provider Active Start: De cember 2022 Babs Lou Emergency Provider Active Start: Ap ril 2023 Unlisted provider (Unknown) Primary Care Provider Acti ve Start: June 15, 2023 ISIAH STARKS Emergency Contact #1 Active JOESPH BENITEZ Emergency Contact #2 Active Automotive Painter Helper Relationship Specialty Start Date End Date Maria Elena Montalvo MD [address] [facility] [place] [address] PCP - General Internal Medicine 08/12/23 Jessenia Miller [address] [place], [place] [address] Referring Family Medicine 03/09/22 Jaime Davis [address] [phone] Referring Orthopedics 10/15/22 Automotive Painter Helper Relationship Specialty Start Date End Date Maria Elena Montalvo MD [address] [facility] [place] [address] PCP - General Internal Medicine 08/12/23 Jessenia Miller [address] [place] [address] Referring Family Medicine 03/09/[address] [facility] [address] [place] [phone] Referring Orthopedics 10/15/22 Team Status: Active Member Role Status Dates None primary care physician Active Start : October 11, 2023 Bob Dominguez MD EMERGENCY Active Start: October 11, 2023 None FAMILY Active Start: October 102023 DB DOAN Guarantor Active Start: October 11, 2023 Automotive Painter Helper Relationship Specialty Start Date End Date Maria Elena Montalvo MD [address] [place] [address] PCP - General Internal Medicine 05/24/23 Automotive Painter Helper Relationship Specialty Start Date End Date Maria Elena Montalvo MD [address] [place] [phone] PCP - General Internal Medicine 05/06/23 Automotive Painter Helper Relationship Specialty Start Date End Date Maria Elena Montalvo MD [address] [place] [address] 08/06/23 Team Status: Active Member Role Status [...] November 20, 2023 None FAMILY Active Start: 2023 DB DOAN Guarantor Active Start: 2023 Automotive Painter Helper Relationship Specialty Start Date End Date Maria Elena Montalvo MD [address] [place] [address] 08/06/23 Automotive Painter Helper Relationship Specialty Start Date End Date Jessenia Miller [address] [place] [address] PCP - General Family Medicine 03/09/22 08/11/23 Jessenia Miller [address] [place] [address] Referring Family Medicine 03/09/22 Jaime Davis [address] [facility] [address] [place] [address] Referring Orthopedics 10/15/22 Team Status: Active Member Role Status Dates Jaime Davis Primary Care Provider Active Sta rt: December 23, 2022 Donald Lainez Emergency Provider Active Start: Oc tober 2022 ER WTCARY Emergency Provider Active Start: De cember 2022 Babs Lou Emergency Provider Active Start: Ap ril 2023 Unlisted provider (Unknown) Primary Care Provider Acti ve Start: June 15, 2023 Shakeel Stephens Emergency Provider Active Start: Ju ly 2023 Elizabeth Santos Emergency Provider Active Start: November 23, 2023 ISIAH DONGTY Emergency Contact #1 Active JOESPH MODENA Emergency Contact #2 Active Automotive Painter Helper Relationship Specialty Start Date End Date Maria Elena Montalvo MD [address] [place] [phone] PCP - General Internal Medicine 05/06/23 Team Status: Active Member Role Status Dates None primary care physician Active Start : December 07, 2023 Siddhartha Crisostomo MD EMERGENCY Active Start: Oc tober 2023 None FAMILY Active Start: December 07, 2023 DB DOAN Guarantor Active Start: Decobe r 2023 Automotive Painter Helper Relationship Specialty Start Date End Date Maria Elena Montalvo MD [address] [facility] [place] [address] PCP - General Internal Medicine 08/12/23 Jessenia Miller [address] [place] [address] Referring Family Medicine 03/09/[address] [facility] [address] [place] [phone] Referring Orthopedics 10/15/22 Automotive Painter Helper Relationship Specialty Start Date End Date Maria Elena Montalvo MD [address] [facility] [place] [address] PCP - General Internal Medicine 08/12/23 Jessenia Miller [address] [place] [address] Referring Family Medicine 03/09/22 Jaime Davis [address] [phone] Referring Orthopedics 10/15/22 Automotive Painter Helper Relationship Specialty Start Date End Date Maria Elena Montalvo MD [address] [place] [phone] PCP - General Internal Medicine 12/20/23 Automotive Painter Helper Relationship Specialty Start Date End Date Maria Elena Montalvo MD [address] [facility] [address] PCP - General Internal Medicine 08/12/23 Jessenia Miller [address] [place] [address] Referring Family Medicine 03/09/22 Jaime Davis [address] [phone] Referring Orthopedics 10/15/22 Automotive Painter Helper Relationship Specialty Start Date End Date SelvinMaria Elena cortes MD [address] [place] [address] PCP - General Internal Medicine 05/06/23 Automotive Painter Helper Relationship Specialty Start Date End Date SelvinMaria Elena cortes MD [address] [place] [address] PCP - General Internal Medicine 08/12/23 Jessenia Miller [address] [place] [address] Referring Family Medicine 03/09/22 Jaime Davis [address] [place] [phone] Referring Orthopedics 10/15/22 Automotive Painter Helper Relationship Specialty Start Date End Date Maria Elena Montalvo MD [address] [facility] 204 [place] [address] PCP - General Internal Medicine 05/24/23 Automotive Painter Helper Relationship Specialty Start Date End Date SelvinMaria Elena cortes MD [address] [place] [address] PCP - General Internal Medicine 05/06/23 Automotive Painter Helper Relationship Specialty Start Date End Date Maria Elena Montalvo MD [address] [place] [address] PCP - General Internal Medicine 12/20/23 Automotive Painter Helper Relationship Specialty Start Date End Date Maria Elena Montalvo MD [address] [place] [phone] PCP - General Internal Medicine 05/06/23 Team Status: Active Member Role Status Dates None primary care physician Active Start : January 14, 2024 Edwar Raygoaz MD EMERGENCY Active Start: N ovember 2023 None FAMILY Active Start: January 14, 2024 DB DOAN Guarantor Active Start: er 2023 Team Status: Active Member Role Status Dates None primary care physician Active Start : January 16, 2024 Jayson Henry MD EMERGENCY Active Start: No vember 2023 None FAMILY Active Start: January 16, 2024 DB DOAN Guarantor Active Start: er 2023 Team Status: Active Member Role Status Dates None primary care physician Active Start : January 19, 2024 Clive Campbell DO EMERGENCY Active Start: January 19, 2024 None FAMILY Active Start: January 19, 2024 DB DOAN Guarantor Active Start: er 2023 Automotive Painter Helper Relationship Specialty Start Date End Date Maria Elena Montalvo MD [address] [place] [phone] PCP - General Internal Medicine 12/20/23 Automotive Painter Helper Relationship Specialty Start Date End Date Maria Elena Montalvo MD [address] [place] [address] PCP - General Internal Medicine 12/20/23 Automotive Painter Helper Relationship Specialty Start Date End Date Jaime Davis MD [address] [place] [address], [address] [place], [place] [address] PCP - General 10/06/22 Automotive Painter Helper Relationship Specialty Start Date End Date Maria Elena Montalvo MD [address] [place] [phone] PCP - General Internal Medicine 12/20/23 Automotive Painter Helper Relationship Specialty Start Date End Date Jaime Davis MD [address] [place] [address], [address] [address] PCP - General 10/06/22 Automotive Painter Helper Relationship Specialty Start Date End Date Jaime Davis MD [address] [place] [address], [address] [address] PCP - General 10/06/22 Automotive Painter Helper Relationship Specialty Start [place] [address] [place] [phone] PCP - General Internal Medicine 05/06/23 Automotive Painter Helper Relationship Specialty Start Date End Date Maria Elena Montalvo MD [address] [place] [phone] PCP - General Internal Medicine 05/06/23 Automotive Painter Helper Relationship Specialty Start Date End Date Maria Elena Montalvo MD [address] [place] [address] PCP - General Internal Medicine 05/06/23 Automotive Painter Helper Relationship Specialty Start Date End Date Maria Elena Montalvo MD [address] [place] [address] PCP - General Internal Medicine 05/06/23 Automotive Painter Helper Relationship Specialty Start Date End Date Maria Elena Montalvo MD [address] [place] [address] PCP - General Internal Medicine 05/06/23 Team Status: Active Member Role Status Dates None primary care physician Active Start : March 19, 2024 Jayson Henry MD EMERGENCY Active Start: Hakan tesfaye 2024 None FAMILY Active Start: March 19, 2024 DB Mahmood JEMFLOR Guarantor Active Start: Anabell arthur 2024 Automotive Painter Helper Relationship Specialty Start Date End Date Maria Elena Montalvo MD [address] [place] [address] PCP - General Internal Medicine 08/12/23 Jessenia Miller [address] [place], [place] [address] Referring Family Medicine 03/09/[address] [facility] 101 [place] [phone] Referring Orthopedics 10/15/22 Maria Elena Montalvo MD 264[address] [facility] 265[address] [place], [place] [address] Referring Internal Medicine 03/26/24 Automotive Painter Helper Relationship Specialty Start Date End Date Maria Elena Montalvo MD [address] [place] [address] PCP - General Internal Medicine 05/06/23 Automotive Painter Helper Relationship Specialty Start Date End Date Maria Elena Montalvo MD [address] [place] [address] PCP - General Internal Medicine 05/06/23 Automotive Painter Helper Relationship Specialty Start Date End Date Maria Elena Montalvo MD [address] [place] [address] PCP - General Internal Medicine 05/06/23 Automotive Painter Helper Relationship Specialty Start Date End Date Maria Elena Montalvo MD [address] [facility] [address] [place] [address] PCP - General Internal Medicine 05/24/23 Automotive Painter Helper Relationship Specialty Start Date End Date Maria Elena Montalvo MD [address] [place] [phone] PCP - General Internal Medicine 12/20/23 Automotive Painter Helper Relationship Specialty Start Date End Date Maria Elena Montalvo MD [address] [place] [phone] PCP - General Internal Medicine 05/06/23 Automotive Painter Helper Relationship Specialty Start Date End Date SelvinMaria Elena cortes MD [address] [place] [address] PCP - General Internal Medicine 08/12/23 Jessenia Miller [address] [place] [address] Referring Family Medicine 03/09/[address] [facility] 101 [place] [phone] Referring Orthopedics 10/15/22 Maria Elena Montalvo MD 2642 [facility] 2654 [place] [address] Referring Internal Medicine 03/26/24 Automotive Painter Helper Relationship Specialty Start Date End Date Maria Elena Montalvo MD [address] [place] [address] PCP - General Internal Medicine 12/20/23 Automotive Painter Helper Relationship Specialty Start Date End Date Maria Elena Montalvo MD [address] [place] [address] PCP - General Internal Medicine 05/06/23 Automotive Painter Helper Relationship Specialty Start Date End Date Maria Elena Montalvo MD [address] [place] [address] PCP - General Internal Medicine 05/06/23 Automotive Painter Helper Relationship Specialty Start [place] [address] [place] [phone] PCP - General Internal Medicine 05/06/23 Automotive Painter Helper Relationship Specialty Start Date End Date Maria Elena Montalvo MD [address] [place] [address] PCP - General Internal Medicine 05/06/23 Automotive Painter Helper Relationship Specialty Start Date End Date SelvinMaria Elena cortes MD [address] [place] [phone] PCP - General Internal Medicine 05/06/23 Automotive Painter Helper Relationship Specialty Start Date End Date SelvinMaria Elena MD [address] [place] [phone] PCP - General Internal Medicine 08/12/23 Jessenia Miller [address] [place] [address] Referring Family Medicine 03/09/22 Jaime Davis [address] [phone] Referring Orthopedics 10/15/22 Maria Elena Montalvo MD [address] [phone] Referring Internal Medicine 03/26/24 Automotive Painter Helper Relationship Specialty Start Date End Date Maria Elena Montalvo MD [address] [place] [phone] PCP - General Internal Medicine 05/06/23 Automotive Painter Helper Relationship Specialty Start Date End Date Maria Elena Montalvo MD [address] [phone] PCP - General Internal Medicine 08/12/23 Jessenia Miller [address] [place] [address] Referring Family Medicine 03/09/22 Jaime Davis [address] [phone] Referring Orthopedics 10/15/22 Maria Elena Montalvo MD [address] [phone] Referring Internal Medicine 03/26/24 Team Status: Active Member Role Status Dates None primary care physician Active Start : July 07, 2024 Edwar Raygoza MD EMERGENCY Active Start: daily 6th, 2025 None FAMILY Active Start: July 07, 2024 DB L JEMFLOR Guarantor Active Start: July Autom[employer] Painter Helper Relationship Specialty Start Date End Date Maria Elena Montalvo MD [address] [place] [phone] PCP - General Internal Medicine 05/06/23 Automotive Painter Helper Relationship Specialty Start Date End Date Maria Elena Montalvo MD [address] [place] [phone] PCP - General Internal Medicine 12/20/23 Automotive Painter Helper Relationship Specialty Start Date End Date Maria Elena Montalvo MD [address] [place] [phone] PCP - General Internal Medicine 05/06/23 Automotive Painter Helper Relationship Specialty Start Date End Date Maria Elena Montalvo MD [address] [place] [phone] PCP - General Internal Medicine 12/20/23 Team Status: Active Member Role Status Dates Out of [facility] Doctor Primary Care Provider Active Team Status: Inactive Member Role Status Dates Out of [facility] Doctor Primary Care Provider Active Start: August 21, 2024 End: August 21, 2024 Dr. Jose Alfaro , DO Emergency Provider Active Start: August 21, 2024 End: August 21, 2024 Automotive Painter Helper Relationship Specialty Start Date End Date Maria Elena Montalvo MD [address] [place] [phone] PCP - General Internal Medicine 05/06/23 Automotive Painter Helper Relationship Specialty Start Date End Date Maria Elena Montalvo MD [address] [place] [phone] PCP - General Internal Medicine 05/06/23 Team Status: Active Member Role/Relationship Status Dates Maria Elena Montalvo MD Primary Care Provider Active Team Status: Inactive Member Role/Relationship Status Dates Maria Elena Montalvo MD Primary Care Provide r, Attending Provider Active Start: September 23, 2024 End: September 23, 2024 Automotive Painter Helper Relationship Specialty Start Date End Date Maria Elena Montalvo MD [address] [place] [phone] PCP - General Internal Medicine 05/06/23 Automotive Painter Helper Relationship Specialty Start Date End Date Maria Elena Montalvo MD [address] 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 Start Date End Date Maria Elena Montalvo MD [address] [place] [phone] PCP - General Internal Medicine 12/20/23 Team Status: Active Member Role Status Dates Non-Staff physician primary care physician Active Start: October 29, 2024 Mone Roman , DO EMERGENCY Active Start: Aug st 2024 Non-Staff physician FAMILY Active Start: A ugust 2024 DB DOAN Guarantor Active Start: October 29, 2024 Source Comments (unrecognize d section and content) In the event this informatio n is protected by the Federal Confidentiality of Alcohol and Drug Abuse Patient Records regulations: The Federal rules restrict any use of the information to criminally investigate or prosecute any alcohol or drug abuse patient.In the event this information is protected by the Federal Confidentiality of Alcohol and Drug Abuse Patient Records regulations: The Federal rules restrict any use of the information to criminally investigate or prosecute any alcohol or drug abuse patient.In the event this information is protected by the Federal Confidentiality of Alcohol and Drug Abuse Patient Records regulations: The Federal rules restrict any use of the information to criminally investigate or prosecute any alcohol or drug abuse patient.In the event this information is protected by the Federal Confidentiality of Alcohol and Drug Abuse Patient Records regulations: The Federal rules restrict any use of the information to criminally investigate or prosecute any alcohol or drug abuse patient.In the event this information is protected by the Federal Confidentiality of Alcohol and Drug Abuse Patient Records regulations: The Federal rules restrict any use of the information to criminally investigate or prosecute any alcohol or drug abuse patient.In the event this information is protected by the Federal Confidentiality of Alcohol and Drug Abuse Patient Records regulations: The Federal rules restrict any use of the information to criminally investigate or prosecute any alcohol or drug abuse patient.In the event this information is protected by the Federal Confidentiality of Alcohol and Drug Abuse Patient Records regulations: The Federal rules restrict any use of the information to criminally investigate or prosecute any alcohol or drug abuse patient.In the event this information is protected by the Federal Confidentiality of Alcohol and Drug Abuse Patient Records regulations: The Federal rules restrict any use of the information to criminally investigate or prosecute any alcohol or drug abuse patient.In the event this information is protected by the Federal Confidentiality of Alcohol and Drug Abuse Patient Records regulations: The Federal rules restrict any use of the information to criminally investigate or prosecute any alcohol or drug abuse patient.In the event this information is protected by the Federal Confidentiality of Alcohol and Drug Abuse Patient Records regulations: The Federal rules restrict any use of the information to criminally investigate or prosecute any alcohol or drug abuse patient.In the event this information is protected by the Federal Confidentiality of Alcohol and Drug Abuse Patient Records regulations: The Federal rules restrict any use of the information to criminally investigate or prosecute any alcohol or drug abuse patient.In the event this information is protected by the Federal Confidentiality of Alcohol and Drug Abuse Patient Records regulations: The Federal rules restrict any use of the information to criminally investigate or prosecute any alcohol or drug abuse patient.In the event this information is protected by the Federal Confidentiality of Alcohol and Drug Abuse Patient Records regulations: The Federal rules restrict any use of the information to criminally investigate or prosecute any alcohol or drug abuse patient.In the event this information is protected by the Federal Confidentiality of Alcohol and Drug Abuse Patient Records regulations: The Federal rules restrict any use of the information to criminally investigate or prosecute any alcohol or drug abuse patient.In the event this information is protected by the Federal Confidentiality of Alcohol and Drug Abuse Patient Records regulations: The Federal rules restrict any use of the information to criminally investigate or prosecute any alcohol or drug abuse patient.In the event this information is protected by the Federal Confidentiality of Alcohol and Drug Abuse Patient Records regulations: The Federal rules restrict any use of the information to criminally investigate or prosecute any alcohol or drug abuse patient.In the event this information is protected by the Federal Confidentiality of Alcohol and Drug Abuse Patient Records regulations: The Federal rules restrict any use of the information to criminally investigate or prosecute any alcohol or drug abuse patient.In the event this information is protected by the Federal Confidentiality of Alcohol and Drug Abuse Patient Records regulations: The Federal rules restrict any use of the information to criminally investigate or prosecute any alcohol or drug abuse patient.In the event this information is protected by the Federal Confidentiality of Alcohol and Drug Abuse Patient Records regulations: The Federal rules restrict any use of the information to criminally investigate or prosecute any alcohol or drug abuse patient.In the event this information is protected by the Federal Confidentiality of Alcohol and Drug Abuse Patient Records regulations: The Federal rules restrict any use of the information to criminally investigate or prosecute any alcohol or drug abuse patient.In the event this information is protected by the Federal Confidentiality of Alcohol and Drug Abuse Patient Records regulations: The Federal rules restrict any use of the information to criminally investigate or prosecute any alcohol or drug abuse patient.In the event this information is protected by the Federal Confidentiality of Alcohol and Drug Abuse Patient Records regulations: The Federal rules restrict any use of the information to criminally investigate or prosecute any alcohol or drug abuse patient.In the event this information is protected by the Federal Confidentiality of Alcohol and Drug Abuse Patient Records regulations: The Federal rules restrict any use of the information to criminally investigate or prosecute any alcohol or drug abuse patient.In the event this information is protected by the Federal Confidentiality of Alcohol and Drug Abuse Patient Records regulations: The Federal rules restrict any use of the information to criminally investigate or prosecute any alcohol or drug abuse patient.In the event this information is protected by the Federal Confidentiality of Alcohol and Drug Abuse Patient Records regulations: The Federal rules restrict any use of the information to criminally investigate or prosecute any alcohol or drug abuse patient. Scheduled Active and Recently Administ ered Medications [...] mg (COMPLETED) 10 mg, IntraMUSCular, ONCE, On Sat07/31/22 at 1345, For 1 dose 1407 (Given - Provid er: Laverne Lutz RN) lidocaine 4 % external patch 1 [...] er: Kitty Cadena RN) Scheduled Medication Order 09/02/2022 09/03/2022 09/04/2022 ketorolac (Toradol) injection 15 mg (COMPLETED) 15 mg, IntraMUSCular, Once, On Sat09/04/22 at 1500, For 1 dose 151 (Given - Provid er: Brenda Arthur RN - Comment: right buttock) ketorolac (Toradol) injection 15 mg (COMPLETED) 15 mg, IntraMUSCular, Once, On Sat09/04/22 at 1630, For 1 dose 1628 (Given - Provid er: Brenda Arthur RN - Comment: left buttock) Lidocaine 4 % patch 1 patch 1 patch, TransDERmal, Administer over 12 Hours, Daily, First dose on Sat09/04/22 at 1625, Apply patch to hip. Patch may remain in place for up to 12 hours in any 24 hour period. 162 (Medication Surinder lied - Provider: Brenda Arthur RN - Comment: lower back)1743 (Due: Medication Removed - Provider: Automatic Discharge Provider - Comment: Time automatically adjusted from order being discontinued) orphenadrine (Norflex) injection 60 mg (COMPLETED) 60 mg, IntraMUSCular, Once, On Sat09/04/22 at 1500, For 1 dose 151 (Given - Provid er: Brenda Arthur RN - Comment: right buttock) oxyCODONE-acetaminophen (Percocet) 5-325 MG per tablet 1 tablet (COMPLETED) 1 tablet, Oral, Once, On Sat09/04/22 at 1500, For 1 dose, Maximum dose of acetaminophen is 4000 mg from all sources in 24 hours. 1518 (Given - Provid er: Brenda Arthur RN) oxyCODONE-acetaminophen (Percocet) 5-325 MG per tablet 1 tablet (COMPLETED) 1 tablet, Oral, Once, On Sat09/04/22 at 1625, For 1 dose, Maximum dose of acetaminophen is 4000 mg from all sources in 24 hours. 162 (Given - Provid er: Brenda Arthur RN) Scheduled Medication Order 09/07/2022 09/08/2022 09/09/2022 HYDROcodone-acetaminophen (Grinnell) 5-325 MG per tablet 1 tablet (COMPLETED) 1 tablet, Oral, Once, On 09/09/22 at 1725, For 1 dose, Maximum dose of acetaminophen is 4000 mg from all sources in 24 hours. 174 (Given - Provid er: Eli Pagan RN) HYDROcodone-acetaminophen (Grinnell) 5-325 MG per tablet 1 tablet (COMPLETED) 1 tablet, Oral, Once, On 09/09/22 at 1855, For 1 dose, Maximum dose of acetaminophen is 4000 mg from all sources in 24 hours. 1855 (Given - Provid er: Eli Pagan RN) ketorolac (Toradol) injection 15 mg (COMPLETED) 15 mg, IntraVENous, Once, On 09/09/22 at 1725, For 1 dose 1739 (Given - Provid er: Eli Pagan RN) Lidocaine 4 % patch 1 patch 1 patch, TransDERmal, Administer over 12 Hours, Daily, First dose on 09/09/22 at 1725, Apply patch to back. Patch may remain in place for up to 12 hours in any 24 hour period. 1739 (Medication Surinder lied - Provider: Eli Pagan RN - Comment: back)193 (Due: Medication Removed - Provider: Automatic Discharge Provider - Comment: Time automatically adjusted from order being discontinued) orphenadrine (Norflex) injection 60 mg (COMPLETED) 60 mg, IntraMUSCular, Once, On 09/09/22 at 1855, For 1 dose 185 (Given - Provid er: Eli Pagan RN) Scheduled Medication Order 09/11/2022 09/12/2022 09/13/2022 ketorolac (Toradol) injection 30 mg (COMPLETED) 30 mg, IntraMUSCular, Once, On Alicia 09/13/22 at 1625, For 1 dose 173 (Given - Provid er: Olivia Alvarez LPN) orphenadrine (Norflex) injection 60 mg (COMPLETED) 60 mg, IntraMUSCular, Once, On Alicia 09/13/22 at 1625, For 1 dose 173 (Given - Provid er: Olivia Alvarez LPN) oxyCODONE-acetaminophen (Percocet) 5-325 MG per tablet 1 tablet (COMPLETED) 1 tablet, Oral, Once, On Alicia 09/13/22 at 1625, For 1 dose, Maximum dose of acetaminophen is 4000 mg from all sources in 24 hours. 1739 (Given - Provid er: Olivia Alvarez LPN) Scheduled Medication Order 09/14/2022 09/15/2022 09/16/2022 oxyCODONE-acetaminophen (Percocet) 5-325 MG per tablet 1 tablet (COMPLETED) 1 tablet, Oral, Once, On Sat09/16/22 at 1420, For 1 dose, Maximum dose of acetaminophen is 4000 mg from all sources in 24 hours. 1425 (Given - Provid er: Kathia Boothe LPN) Scheduled Medication Order 10/29/2022 10/30/2022 10/31/2022 acetaminophen [...] dose on Sat10/31/22 at 0918, Until Discontinued 0859 (Patch Applied - Provider: Job Berg)2058 (Due: Patch Removal - Provider: Job Berg) Scheduled Medication Order 11/07/2022 11/08/2022 11/09/2022 oxyCODONE-acetaminophen (Percocet) 5-325 MG per tablet 1 tablet (COMPLETED) 1 tablet, Oral, Once, On Sat11/09/22 at 0640, For 1 dose, Maximum dose of acetaminophen is 4000 mg from all sources in 24 hours. 0650 (Given - Provid er: Jude Zeng RN) Scheduled Medication Order 11/13/2022 11/14/2022 11/15/2022 ketorolac (Toradol) injection 15 mg (COMPLETED) 15 mg, IntraMUSCular, Once, On Alicia 11/15/22 at 1605, For 1 dose 1622 (Given - Provid er: Melida Martinez RN) oxyCODONE-acetaminophen (Percocet) 5-325 MG per tablet 1 tablet (COMPLETED) 1 tablet, Oral, Once, On Alicia 11/15/22 at 1640, For 1 dose, Maximum dose of acetaminophen is 4000 mg from all sources in 24 hours. 1644 (Given - Provid er: Esha Martinez RN) Scheduled Medication Order 12/02/2022 12/03/2022 12/04/2022 [...] er: Junior Cartwright RN) Scheduled Medication Order 02/07/2023 02/08/2023 02/09/2023 HYDROcodone-acetaminophen (Grinnell) 5-325 MG per tablet 1 tablet (COMPLETED) 1 tablet, Oral, Once, On 02/09/23 at 1620, For 1 dose, Maximum dose of acetaminophen is 4000 mg from all sources in 24 hours. 1626 (Given - Provid er: Art Jerome RN) ketorolac (Toradol) injection 15 mg (COMPLETED) 15 mg, IntraMUSCular, Once, On 02/09/23 at 1620, For 1 dose 1626 (Given - Provid er: Art Jerome RN) orphenadrine (Norflex) injection 60 mg (COMPLETED) 60 mg, IntraMUSCular, Once, On 02/09/23 at 1620, For 1 dose 1626 (Given - Provid er: Art Jerome RN) Scheduled Medication Order 03/02/2023 03/03/2023 03/04/2023 ibuprofen (ADVIL;MOTRIN) tablet 800 mg (COMPLETED) 800 mg, Oral, ONCE, 1 dose, On Sat03/04/23 at 1215 1216 (Given - Provid er: Uyen Shah RN) Scheduled Medication Order 03/03/2023 03/04/2023 03/05/2023 HYDROcodone-acetaminophen (Grinnell) 5-325 MG per tablet 1 tablet (COMPLETED) 1 tablet, Oral, Once, On Sat03/05/23 at 1825, For 1 dose, Maximum dose of acetaminophen is 4000 mg from all sources in 24 hours. 1827 (Given - Provid er: Eli Callahan RN) ketorolac (Toradol) injection 30 mg (COMPLETED) 30 mg, IntraVENous, Once, On Sat03/05/23 at 1705, For 1 dose 1711 (Given - Provid er: Lucy Momin RN) Scheduled Medication Order 03/08/2023 03/09/2023 03/10/2023 ketorolac (Toradol) injection 30 mg (COMPLETED) 30 mg, intramuscular, Once, On Sat03/10/23 at 0450, For 1 dose 0517 (Given - Provid er: Ciara Seaman RN) Scheduled Medication Order 03/28/2023 03/29/2023 03/30/2023 oxyCODONE (Roxicodone) immediate release tablet 10 mg (COMPLETED) 10 mg, Oral, Once, On 03/30/23 at 1915, For 1 dose 1933 (Given - Provid er: Jeannine Viera LPN) Scheduled Medication Order 04/23/2023 04/24/2023 04/25/2023 aspirin [...] 1 tablet, Oral, ONCE, 1 dose, On 05/06/23 at 1645, Maximum dose of acetaminophen is 4000 mg from all sources in 24 hours. 1659 (Given - Provid er: Anayeli Nguyen RN) Scheduled Medication Order 05/22/2023 05/23/2023 05/24/2023 Lidocaine 4 % patch 1 patch 1 patch, TransDERmal, Administer over 12 Hours, Once, On Sat05/24/23 at 0620, For 1 dose, Apply patch to back. Patch may remain in place for up to 12 hours in any 24 hour period. 0620 (Medication Surinder lied - Provider: Priyanka Banuelos RN - Comment: buttocks)0745 (Due: Medication Removed - Provider: Automatic Discharge Provider - Comment: Time automatically adjusted from order being discontinued) oxyCODONE-acetaminophen (Percocet) 5-325 MG per tablet 2 tablet (COMPLETED) 2 tablet, Oral, Once, On Sat05/24/23 at 0600, For 1 dose, Maximum dose of acetaminophen is 4000 mg from all sources in 24 hours. 0610 (Given - Provid er: Priyanka Banuelos RN) Scheduled Medication Order 05/29/2023 05/30/2023 05/31/2023 [...] Provider: Nuno Byrne RN) Scheduled Medication Order 08/08/2023 08/09/2023 08/10/2023 oxyCODONE-acetaminophen (Percocet) 5-325 MG per tablet 2 tablet (COMPLETED) 2 tablet, Oral, Once, On Sat08/10/23 at 1220, For 1 dose, Maximum dose of acetaminophen is 4000 mg from all sources in 24 hours. 1228 (Given - Provid er: Katie Kent RN) Scheduled Medication Order 08/11/2023 08/12/2023 08/13/2023 [...] 0608 0553 (Given - Provid er: Maddy Castro, NIK) ketorolac (TORADOL) 30 MG/ML injection (COMPLETED) 30 mg, Intramuscular, ONCE, 1 dose, On Sat09/06/23 at 0617 0553 (Given - Provid er: Maddy Castro RN) lidocaine (LIDODERM) 4 % patch 1 Patch, Transdermal, EVERY 24 HOURS, First dose on Sat09/06/23 at 0610, Until Discontinued 0553 (Patch Applied - Provider: Maddy Castro RN)1753 (Due: Patch Removal - Provider: Maddy Castro RN) Scheduled Medication Order 09/13/2023 09/14/2023 09/15/2023 ketorolac (Toradol) injection 30 mg (COMPLETED) 30 mg, IntraMUSCular, Once, On Sat09/15/23 at 1205, For 1 dose 1246 (Given - Provid er: Jessenia Dunn, DEVORAH) Scheduled Medication Order 09/27/2023 09/28/2023 09/29/2023 dexAMETHasone (DECADRON) injection 10 mg (COMPLETED) 10 mg, IntraVENous, ONCE, On 09/29/23 at 1130, For 1 dose 1135 (Given - Provid er: Liseth Knutson RN) HYDROcodone-acetaminophen (NORCO) 5-325 MG per tablet 1 tablet (COMPLETED) 1 tablet, Oral, ONCE, 1 dose, On Sat09/29/23 at 1315, Maximum dose of acetaminophen is [...] 60 mg, IntraMUSCular, ONCE, 1 dose, On Sat09/29/23 at 1130 1135 (Given - Provid er: Liseth Knutson RN) prochlorperazine (COMPAZINE) injection 10 mg (COMPLETED) 10 mg, IntraVENous, ONCE, 1 dose, On Sat09/29/23 at 1315, If administering IV push, administer [...] 1 Tablet, Oral, ONCE, 1 dose, On Sat10/27/23 at 0239 0239 (Due) Scheduled Medication Order [...] 325 mg, Oral, ONCE, 1 dose, On Sat12/29/23 at 0800, Maximum dose of acetaminophen is 4000 mg from all sources in 24 hours. 0807 (Given - Provid er: Dewayne Trotter RN) ketorolac (TORADOL) injection 30 mg (COMPLETED) 30 mg, IntraVENous, ONCE, 1 dose, On 12/29/23 at 0800, Do not administer for more than 5 days. 08 (Given - Provid er: Dewayne Trotter RN) ondansetron (ZOFRAN) injection 4 mg (COMPLETED) 4 mg, IntraVENous, ONCE, 1 dose, On 12/29/23 at 0800 0806 (Given - Provid er: Dewayne Trotter RN) oxyCODONE (ROXICODONE) immediate release tablet 10 mg (COMPLETED)(Linked Group 1) 10 mg, Oral, ONCE, 1 dose, On 12/29/23 at 0800 0808 (Given - Provid er: Dewayne Trotter RN) sodium chloride 0.9 % bolus 1,000 mL (COMPLETED) 1,000 mL (15.7 mL/kg), IntraVENous, at 1,000 mL/hr, Administer over 1 Hours, ONCE, On 12/29/23 at 0800, For 1 dose 08 (New Bag - Prov ider: Dewayne Trotter RN)09 (Stopped - Provider: Dewayne Trotter RN) Linked Groups Order Group 1: oxyCODONE (ROXICODONE) immediate release tablet 10 mg (COMPLETED)Jump to med 10 mg, Oral, ONCE, 1 dose, On 12/29/23 at 0800 And acetaminophen (TYLENOL) tablet 325 mg (COMPLETED)Jump to med 325 mg, Oral, ONCE, 1 dose, On 12/29/23 at 0800, Maximum dose of acetaminophen is 4000 mg from all sources in 24 hours. Scheduled Medication Order 01/04/2024 01/05/2024 01/06/2024 cephalexin (Keflex) capsule 500 mg (COMPLETED) 500 mg, Oral, Once, On Sat01/06/24 at 1945, For 1 dose, Suspected Indication (Select all that apply): Skin and Soft Tissue Infection 2005 (Given - Provid er: Harriett Roca RN) ibuprofen tablet 600 mg (COMPLETED) 600 mg, Oral, Once, On Sat01/06/24 at 1945, For 1 dose 2005 (Given - Provid er: Harriett Roca RN) oxyCODONE-acetaminophen (Percocet) 5-325 MG per tablet 1 tablet (COMPLETED) 1 tablet, Oral, Once, On Sat01/06/24 at 1945, For 1 dose, Maximum dose of acetaminophen is 4000 mg from all sources in 24 hours. 2005 (Given - Provid er: Harriett Roca RN) Scheduled Medication Order 01/07/2024 01/08/2024 01/09/2024 ketorolac (TORADOL) injection 15 mg (COMPLETED) 15 mg, IntraMUSCular, ONCE, 1 dose, On Alicia 01/09/24 at 0500, Do not administer for more than 5 days. 050 (Given - Provid er: Annie Núñez RN) Scheduled Medication Order 01/11/2024 01/12/2024 01/13/2024 ketorolac (TORADOL) injection 30 mg (COMPLETED) 30 mg, IntraMUSCular, ONCE, 1 dose, On 01/13/24 at 0845, Do not administer for more than 5 days. 09 (Given - Provid er: Kathia Wong RN) Scheduled Medication Order 01/16/2024 01/17/2024 01/18/2024 ketorolac (TORADOL) injection 30 mg (COMPLETED) 30 mg, IntraMUSCular, ONCE, 1 dose, On 01/18/24 at 0815, Do not administer for more than 5 days. 08 (Given - Provid er: Norma Ibarra, NIK) Scheduled Medication Order 01/19/2024 01/20/2024 01/21/2024 ketorolac (Toradol) injection 30 mg (COMPLETED) 30 mg, IntraMUSCular, Once, On 01/21/24 at 0625, For 1 dose 0626 (Given - Provid er: Bay Jackson RN) Scheduled Medication Order 01/19/2024 01/20/2024 01/21/2024 ketorolac (TORADOL) injection 15 mg (COMPLETED) 15 mg, IntraMUSCular, ONCE, 1 dose, On 01/21/24 at 1815, Do not administer for more than 5 days. 183 (Given - Provid er: Masoud Hammer RN) [...] - Provider: Bridgette Butt RN - Comment: BACK)194 (Due: Medication Removed - Provider: Bridgette Butt [...] not chocolate. 1016 (Given - Provider: Bridget Miles RN)2129 (Given - Provider: Nadia Munoz RN) 0840 [...] Miles RN) 0840 (Given - Provider: Isabel Jenkins, NIK) gabapentin (NEURONTIN) capsule 600 mg 600 mg, Oral, 3 TIMES DAILY, First dose on 03/08/24 at 0900, Until Discontinued 1016 (Given - Provider: Bridget Miles RN)1508 (Given - Provider: Asael Matias, NIK)2129 (Given - Provider: Nadia Munoz, NIK) 0839 (Given - Provider: Isabel Jenkins, NIK)1452 (Given - Provider: Margaux Neal RN)2100 (Due) [...] Munoz RN) 0840 (Given - Provider: Isabel Jenkisn RN)2100 (Due) PRN Medication Order 03/07/2024 03/08/2024 [...] Hours, PRN, Other, Magnesium Replacement, Starting on Sat03/08/24 at 0819, Mag Lab Replacement Action 1.4-1.6 [...] mg from all sources in 24 hours. 08 (Given - Provider: Bridget Miles RN)1509 (Given - Provider: Asael Matias RN)2128 (Given - Provider: Nadia Munoz RN) 043 (Given - Provider: Nadia Munoz RN)105 (Given - Provider: Margaux Neal, NIK)162 (Given - Provider: Margaux Neal, NIK) oxyCODONE-acetaminophen [...] Munoz RN)1052 (See Alternative - Provider: Margaux Neal RN)1628 (See Alternative - Provider: Margaux Neal RN) polyethylene glycol (GLYCOLAX) packet 17 g 17 [...] 3) 40 mEq, Oral, PRN, Starting on Sat03/08/24 at 0819, Until Discontinued, Potassium Replacement, May [...] med 10 mEq, IntraVENous, PRN, Starting on 03/08/24 at 0819, Until Discontinued, at 100 mL/hr, [...] 24 hours. 1642 (Given - Provid er: Clarisse Flannery RN) Scheduled Medication Order 03/15/2024 03/16/2024 03/17/2024 dexAMETHasone (DECADRON) Oral 6 mg (COMPLETED) 6 mg, Oral, ONCE, On Sat03/17/24 at 0330, For 1 dose 034 (Given - Provid er: Liseth Kevin [...] 0500 0455 (Given - Provid er: Madelin Kearney RN) Scheduled Medication Order 04/08/2024 04/09/2024 04/10/2024 [...] dose, Apply patch to shoulder l The automatic gluing machine operator's recommendations for the number of patches that can be applied within a 24-hour period varies from 1 to 4 times daily and the duration of application varies from 8 to 24 hours; refer to the automatic gluing machine operator's labeling for product-specific recommendations. 1555 (Patch Applied - Provider: Su Mae RN) ondansetron (ZOFRAN-ODT) disintegrating tablet 4 mg (COMPLETED) 4 mg, Oral, ONCE, 1 dose, On Sat04/20/24 at 1545 1554 (Given - Provid er: Su Mae RN) orphenadrine (NORFLEX) injection 60 mg (COMPLETED) 60 mg, IntraMUSCular, ONCE, 1 dose, On Sat04/20/24 at 1545 1555 (Given - Provid er: Su Mae RN) Scheduled Medication Order 04/22/2024 04/23/2024 04/24/2024 ketorolac (TORADOL) injection 30 mg (COMPLETED) 30 mg, IntraMUSCular, ONCE, 1 dose, On Sat04/24/24 at 0500, Do not administer for more than 5 days. 0456 (Given - Provid er: Olga Lester RN) Scheduled Medication Order 04/27/2024 2024 04/29/2024 acetaminophen (Tylenol) tablet 1,000 mg (COMPLETED) 1,000 mg, Oral, Once, On Sat04/29/24 at 0420, For 1 dose, Maximum dose of acetaminophen is 4000 mg from all sources in 24 hours. 042 (Given - Provid er: Melida Collado RN) ketorolac (Toradol) injection 30 mg (COMPLETED) 30 mg, IntraMUSCular, Once, On Sat04/29/24 at 0420, For 1 dose 042 (Given - Provid er: Melida Collado RN) Lidocaine 4 % patch 1 patch 1 patch, TransDERmal, Administer over 12 Hours, Daily, First dose on Sat04/29/24 at 0900, Apply patch to back. Patch may remain in place for up to 12 hours in any 24 hour period. ondansetron ODT (Zofran-ODT) disintegrating tablet 4 mg (COMPLETED) 4 mg, Oral, Once, On 04/29/24 at 0420, For 1 dose 0427 (Given - Provid er: Melida Collado RN) Scheduled Medication Order 2024 04/29/2024 04/30/2024 [...] 24 hours. 1034 (Given - Provid er: Jan Delgado RN) ketorolac (TORADOL) injection 30 mg (COMPLETED) 30 mg, IntraMUSCular, ONCE, 1 dose, On Sat05/15/24 at 1115, Do not administer for more than 5 days. 1112 (Given - Provid er: Demetrice Taylor RN) Scheduled Medication Order 05/15/2024 05/16/2024 05/17/2024 HYDROmorphone (Dilaudid) injection 0.5 mg (COMPLETED) 0.5 mg, intravenous, Once, On Sat05/17/24 at 0355, For 1 dose 0422 (Given - Provid er: Glenda Thomas RN) iohexol (OMNIPaque) 350 mg iodine/mL solution 100 mL (COMPLETED) 100 mL, intravenous, Once in imaging, Starting on Sat05/17/24 at 0308, For 1 dose 0309 (Given - Provid er: Linda Oliva) ketorolac (Toradol) injection 15 mg (COMPLETED) 15 mg, intravenous, Once, On Sat05/17/24 at 0620, For 1 dose 0637 (Given - Provid er: Glenda Thomas RN) orphenadrine (Norflex) injection 60 mg 60 mg, intravenous, Once, On Sat05/17/24 at 0620, For 1 dose 0640 (Not [...] 24 hours. 1346 (Given - Provid er: Dewayne Trotter RN) ketorolac (TORADOL) injection 15 mg (COMPLETED) 15 mg, IntraMUSCular, ONCE, 1 dose, On Sat05/25/24 at 1345, Do not administer for more than 5 days. 1346 (Given - Provid er: Dewayne Trotter RN) Scheduled Medication Order 06/01/2024 06/02/2024 [...] mg from all sources in 24 hours. 822 (Given - Provid er: Jan Delgado RN) ketorolac (TORADOL) injection 30 mg (COMPLETED) 30 mg, IntraMUSCular, ONCE, 1 dose, On Sat07/01/24 at 0830 08 (Given - Provid er: Jan Delgado RN) lidocaine 4 % external patch 1 patch 1 patch, TransDERmal, Administer over 12 Hours, ONCE, On Sat07/01/24 at 0830, For 1 dose, Apply patch to low back. The automatic gluing machine operator's recommendations for the number of patches that can be applied within a 24-hour period varies from 1 to 4 times daily and the duration of application varies from 8 to 24 hours; refer to the automatic gluing machine operator's labeling for product-specific recommendations. 821 (Patch Applied - Provider: Jan Delgado RN)2021 (Due: Patch Removed - Provider: Jan Delgado RN) orphenadrine (NORFLEX) injection 60 mg (COMPLETED) 60 mg, IntraMUSCular, ONCE, 1 dose, On Sat07/01/24 at 0830 08 (Given - Provid er: Jan Delgado RN) predniSONE (DELTASONE) tablet 60 mg (COMPLETED) 60 mg, Oral, ONCE, 1 dose, On Sat07/01/24 at 0830 0825 (Given - Provid er: Jan Delgado RN) Scheduled Medication Order 07/06/2024 07/07/2024 07/08/2024 ketorolac (TORADOL) injection 30 mg (COMPLETED) 30 mg, IntraMUSCular, ONCE, 1 dose, On Sat07/08/24 at 2100, Do not administer for more than 5 days. 3 (Given - Provid er: Masoud Hammer RN) oxyCODONE-acetaminophen (PERCOCET) 5-325 MG per tablet 1 tablet (COMPLETED) 1 tablet, Oral, ONCE, 1 dose, On 07/08/24 at 2100, Maximum dose of acetaminophen is 4000 mg from all sources in 24 hours. 2122 (Given - Provid er: Masoud Hammer RN) Scheduled Medication Order 07/10/2024 07/11/2024 07/12/2024 gabapentin (Neurontin) capsule 300 mg (COMPLETED) 300 mg, oral, Once, On 07/12/24 at 0340, For 1 dose, Capsules may be opened and sprinkled on food (eg, applesauce, orange juice, pudding 0410 (Given - Provid er: Joe Salazar LPN) orphenadrine (Norflex) injection 60 mg 60 mg, intramuscular, Once, On 07/12/24 at 0340, For 1 dose 041 (Not Given - Pr ovider: Joe Salazar [...] mL (GI COCKTAIL) (COMPLETED) Oral, ONCE, On Alicia 08/06/24 at 0445, For 1 dose, Take 5 mL from lidocaine viscous 2% cup and mix with 30 mL of maalox and then administer. 0456 (Given - Provid er: Demetrice Taylor RN) ketorolac (TORADOL) injection 30 mg (COMPLETED) 30 mg, IntraMUSCular, ONCE, 1 dose, On Alicia 08/06/24 at 0445, Do not administer for more than 5 days. 045 (Given - Provid er: Demetrice Taylor RN) Scheduled Medication Order 08/06/2024 08/07/2024 08/08/2024 ketorolac (TORADOL) injection 30 mg (COMPLETED) 30 mg, IntraMUSCular, ONCE, 1 dose, On 08/08/24 at 2000, Do not administer for more than 5 days. 1955 (Given - Provid er: Keila Watson RN) lidocaine 4 % external patch 1 patch 1 patch, TransDERmal, Administer over 12 Hours, Once, On 08/08/24 at 2030, For 1 dose, Apply patch to right hip. The automatic gluing machine operator's recommendations for the number of patches that can be applied within a 24-hour period varies from 1 to 4 times daily and the duration of application varies from 8 to 24 hours; refer to the automatic gluing machine operator's labeling for product-specific recommendations. 2027 (Patch Applied - Provider: Keila Watson RN) Scheduled Medication Order 08/18/2024 08/19/2024 08/20/2024 ketorolac (Toradol) injection 60 mg (COMPLETED) 60 mg, intramuscular, Once, On Alicia 08/20/24 at 1055, For 1 dose 1114 (Given - Provid er: Nuno Castle RN) [...] Provider: Nuno Castle RN - Comment: back placement)231 (Due: Medication Removed - Provider: Nuno Castle RN) Scheduled Medication Order 08/22/2024 08/23/2024 08/24/2024 acetaminophen (TYLENOL) tablet 1,000 mg (COMPLETED) 1,000 mg, Oral, ONCE, 1 dose, On 08/24/24 at 1700, Maximum dose of acetaminophen is 4000 mg from all sources in 24 hours. 183 (Given - Provid er: Susan Peter RN) ibuprofen (ADVIL;MOTRIN) tablet 400 mg (COMPLETED) 400 mg, Oral, ONCE, 1 dose, On Sat08/24/24 at 1700 183 (Given - Provid er: Susan Peter RN) oxymetazoline (AFRIN) 0.05 % nasal spray 2 spray (COMPLETED) 2 spray, Left Nostril, ONCE, 1 dose, On Sat08/24/24 at 1700 183 (Given - Provid er: Susan Peter RN) traMADol (ULTRAM) tablet 50 mg (COMPLETED) 50 mg, Oral, ONCE, 1 dose, On Sat08/24/24 at 1915 1915 (Given - Provid er: Mary Srinivasan RN) Scheduled Medication Order 08/27/2024 08/28/2024 08/29/2024 amoxicillin-clavulanate (AUGMENTIN) 875-125 MG per tablet 1 tablet (COMPLETED) 1 tablet, Oral, ONCE, 1 dose, On 08/29/24 at 0430, Antimicrobial Indications: Other, Other Abx Indication: nasal 0443 (Given - Provid er: Dorys Hearn RN) oxyCODONE-acetaminophen (PERCOCET) 5-325 MG per tablet 2 tablet (COMPLETED) 2 tablet, Oral, ONCE, 1 dose, On 08/29/24 at 0445, Maximum dose of acetaminophen is 4000 mg from all sources in 24 hours. 0443 (Given - Provid er: Dorys Hearn RN) Scheduled Medication Order 09/02/2024 09/03/2024 09/04/2024 diphenhydrAMINE (BENADRYL) injection 50 mg 50 mg, IntraVENous, ONCE, 1 dose, On Sat09/04/24 at 1100, IV Push at rate not to exceed 25 mg/min. 1136 (Not Given - Pr ovider: Alan Oneill RN - Reason: Patient/family refused) metoclopramide (REGLAN) injection 10 mg (COMPLETED) 10 mg, IntraVENous, ONCE, 1 dose, On Sat09/04/24 at 1100, IV Push: Max 10 mg over 1-2 minutes. 1136 (Given - Provid er: Alan Oneill RN) oxyCODONE-acetaminophen (PERCOCET) 5-325 MG per tablet 1 tablet (COMPLETED) 1 tablet, Oral, ONCE, 1 dose, On Sat09/04/24 at 1130, Maximum dose of acetaminophen is 4000 mg from all sources in 24 hours. 1203 (Given - Provid er: Alan Oneill RN) sodium chloride 0.9 % bolus 1,000 mL (COMPLETED) 1,000 mL (17.6 mL/kg), IntraVENous, at 2,000 mL/hr, Administer over 30 Minutes, ONCE, On Sat09/04/24 at 1100, For 1 dose 1134 (New Bag - Prov ider: Alan Oneill RN)1343 (Stopped - Provider: Timoteo Hicks RN) Scheduled Medication Order 09/08/2024 09/09/2024 09/10/2024 ketorolac (TORADOL) injection 30 mg (COMPLETED) 30 mg, IntraMUSCular, ONCE, 1 dose, On Alicia 09/10/24 at 0845, Do not administer for more than 5 days. 0848 (Given - Provid er: Homer Underwood LPN) oxyCODONE-acetaminophen (PERCOCET) 5-325 MG per tablet 1 tablet (COMPLETED) 1 tablet, Oral, ONCE, 1 dose, On Alicia 09/10/24 at 0845, Maximum dose of acetaminophen is 4000 mg from all sources in 24 hours. 0847 (Given - Provid er: Homer Underwood LPN) predniSONE (DELTASONE) tablet 60 mg (COMPLETED) 60 mg, Oral, ONCE, 1 dose, On Alicia 09/10/24 at 0845 0847 (Given - Provid er: Homer Underwood LPN) Scheduled Medication Order 09/10/2024 09/11/2024 09/12/2024 lidocaine viscous hcl (XYLOCAINE) 2 % solution 15 mL (COMPLETED) 15 mL, Mouth/Throat, ONCE, 1 dose, On Sat09/11/24 at 2345 2357 (Given - Provider: Dewayne Trotter RN) oxyCODONE-acetaminophen (PERCOCET) 5-325 MG per tablet 2 tablet (COMPLETED) 2 tablet, Oral, ONCE, 1 dose, On Sat09/11/24 at 2345, Maximum dose of acetaminophen is 4000 mg from all sources in 24 hours. 2357 (Given - Provider: Dewayne Trotter RN) Scheduled Medication Order 09/19/2024 09/20/2024 09/21/2024 LORazepam (ATIVAN) tablet 1 mg (COMPLETED) 1 mg, Oral, ONCE, 1 dose, On Sat09/21/24 at 1400 1357 (Given - Provid er: Roxanne Sigala RN) oxyCODONE-acetaminophen (PERCOCET) 5-325 MG per tablet 1 tablet (COMPLETED) 1 tablet, Oral, ONCE, 1 dose, On Sat09/21/24 at 1400, Maximum dose of acetaminophen is 4000 mg from all sources in 24 hours. 1357 (Given - Provid er: Roxanne Sigala RN) Scheduled Medication Order 09/23/2024 09/24/2024 09/25/2024 LORazepam (ATIVAN) tablet 2 mg (COMPLETED) 2 mg, Oral, ONCE, 1 dose, On Sat09/25/24 at 1115 1125 (Given - Provid er: Jack Tyler RN) Scheduled Medication Order 09/25/2024 09/26/2024 09/27/2024 dexAMETHasone (DECADRON) IntraVENous 10 mg 10 mg, IntraVENous, ONCE, On 09/27/24 at 0115, For 1 dose 0141 (Not Given - Pr ovider: Masoud Lopez RN - Reason: Patient/family refused - Comment: PT. wants to go home) hydrOXYzine pamoate (VISTARIL) capsule 50 mg 50 mg, Oral, Once, 1 dose, On 09/27/24 at 0115 0115 (Due) ketorolac (TORADOL) injection 15 mg 15 mg, IntraVENous, ONCE, 1 dose, On 09/27/24 at 0115, Do not administer for more than 5 days. 0141 (Not Given - Pr ovider: Masoud Lopez RN - Reason: Patient/family refused - Comment: pt. changed her mind and wants to go home) lidocaine 4 % external patch 1 patch 1 patch, TransDERmal, Administer over 12 Hours, Once, On 09/27/24 at 0115, For 1 dose, Apply patch to left elbow. The automatic gluing machine operator's recommendations for the number of patches that can be applied within a 24-hour period varies from 1 to 4 times daily and the duration of application varies from 8 to 24 hours; refer to the automatic gluing machine operator's labeling for product-specific recommendations. 0141 (Patch Applied - Provider: Masoud Lopez RN)1341 (Due: Patch Removed - Provider: Masoud Lopez RN) sodium chloride 0.9 % bolus 1,000 mL 1,000 mL (17.5 mL/kg), IntraVENous, at 495.9 mL/hr, Administer over 121 Minutes, ONCE, On Sat09/27/24 at 0115, For 1 dose, May be administered over 30 minutes if well tolerated. 0115 (Due) Scheduled Medication Order 10/04/2024 10/05/2024 10/06/2024 ketorolac (TORADOL) injection 30 mg (COMPLETED) 30 mg, IntraMUSCular, ONCE, 1 dose, On Sat10/06/24 at 1030, Do not administer for more than 5 days. 1029 (Given - Provid er: Swathi Restrepo RN) oxyCODONE-acetaminophen (PERCOCET) 5-325 MG per tablet 1 tablet (COMPLETED) 1 tablet, Oral, ONCE, 1 dose, On Sat10/06/24 at 1030, Maximum dose of acetaminophen is 4000 mg from all sources in 24 hours. 1029 (Given - Provid er: Swathi Restrepo RN) predniSONE (DELTASONE) tablet 40 mg (COMPLETED) 40 mg, Oral, ONCE, 1 dose, On Sat10/06/24 at 1030 1029 (Given - Provid er: Swathi Restrepo RN) Scheduled Medication Order 10/05/2024 10/06/2024 10/07/2024 ketorolac (TORADOL) injection 30 mg (COMPLETED) 30 mg, IntraVENous, ONCE, 1 dose, On Sat10/07/24 at 1315 1308 (Given - Provid er: Ban Jacome RN - Comment: shoulder, jaw & teeth pain) Scheduled Medication Order 10/08/2024 10/09/2024 10/10/2024 acetaminophen (TYLENOL) tablet 1,000 mg, Oral, ONCE, 1 dose, On Sat10/10/24 at 0954 0954 (Due) ketorolac (TORADOL) 30 MG/ML injection 30 mg, Intramuscular, ONCE, 1 dose, On Sat10/10/24 at 0954 0954 (Due) lidocaine (LIDODERM) 4 % patch 1 Patch, Transdermal, EVERY 24 HOURS, First dose on Sat10/10/24 at 0954, Until Discontinued 0954 (Due) Scheduled Medication Order 10/08/2024 10/09/2024 10/10/2024 ketorolac (Toradol) injection 15 mg (COMPLETED) 15 mg, intramuscular, Once, On Sat10/10/24 at 1210, For 1 dose 1242 (Given - Provid er: Dasia Iyer LPN) Scheduled Medication Order 10/11/2024 10/12/2024 10/13/2024 acetaminophen (TYLENOL) tablet 650 mg (COMPLETED) 650 mg, Oral, ONCE, 1 dose, On Sat10/13/24 at 1330, Maximum dose of acetaminophen is 4000 mg from all sources in 24 hours. 1322 (Given - Provid er: Mary Vega RN) ketorolac (TORADOL) injection 30 mg (COMPLETED) 30 mg, IntraMUSCular, ONCE, 1 dose, On Sat10/13/24 at 1145, Do not administer for more than 5 days. 1146 (Given - Provid er: Yamilet Whitney RN) methocarbamol (ROBAXIN) tablet 750 mg (COMPLETED) 750 mg, Oral, ONCE, 1 dose, On Sat10/13/24 at 1145 1145 (Given - Provid er: Yamilet Whitney RN) Scheduled Medication Order 10/14/2024 10/15/2024 10/16/2024 ketorolac (TORADOL) injection 30 mg (COMPLETED) 30 mg, IntraMUSCular, ONCE, 1 dose, On Sat10/16/24 at 1500, Do not administer for more than 5 days. 1454 (Given - Provid er: Mariely Mcpherson RN) Scheduled Medication Order 10/18/2024 10/19/2024 10/20/2024 acetaminophen (Tylenol) tablet 650 mg (COMPLETED) 650 mg, Oral, Once, On Sat10/20/24 at 1340, For 1 dose, Maximum dose of acetaminophen is 4000 mg from all sources in 24 hours. 1344 (Given - Provid er: Damari Jack RN) HYDROcodone-acetaminophen ([place]) 5-325 MG per tablet 1 tablet (COMPLETED) 1 tablet, Oral, Once, On Sat10/20/24 at 1340, For 1 dose, Maximum dose of acetaminophen is 4000 mg from all sources in 24 hours. 1344 (Given - Provid er: Damari Jack RN) ibuprofen tablet 600 mg (COMPLETED) 600 mg, Oral, Once, On Sat10/20/24 at 1340, For 1 dose 1344 (Given - Provid er: Damari Jack RN) Lidocaine 4 % patch 1 patch 1 patch, TransDERmal, Administer over 12 Hours, Daily, First dose on Sat10/20/24 at 1445, Apply patch to Left shoulder. Patch may remain in place for up to 12 hours in any 24 hour period. 1446 (Medication Surinder lied - Provider: Damari Jack RN - Comment: shoulder l)1451 (Due: Medication Removed - Provider: Automatic Discharge Provider - Comment: Time automatically adjusted from order being discontinued) oxyCODONE (Roxicodone) immediate release tablet 5 mg (COMPLETED) 5 mg, Oral, Once, On Sat10/20/24 at 1410, For 1 dose 1414 (Given - Provid er: Damari Jack RN) Scheduled Medication Order 10/19/2024 10/20/2024 10/21/2024 acetaminophen (TYLENOL) tablet 1,000 mg (COMPLETED) 1,000 mg, Oral, ONCE, 1 dose, On Sat10/21/24 at 1330, Maximum dose of acetaminophen is 4000 mg from all sources in 24 hours. 1402 (Given - Provid er: Homer Underwood LPN) dexAMETHasone (DECADRON) IntraVENous 8 mg (COMPLETED) 8 mg, IntraVENous, ONCE, On Sat10/21/24 at 1200, For 1 dose 1208 (Given - Provid er: Pastor Masters RN) ketorolac (TORADOL) injection 15 mg (COMPLETED) 15 mg, IntraVENous, ONCE, 1 dose, On Sat10/21/24 at 1200, Do not administer for more than 5 days. 1208 (Given - Provid er: Pastor Masters RN) lidocaine 4 % external patch 1 patch 1 patch, TransDERmal, Administer over 12 Hours, ONCE, On Sat10/21/24 at 1200, For 1 dose, Apply patch to lower back. The automatic gluing machine operator's recommendations for the number of patches that can be applied within a 24-hour period varies from 1 to 4 times daily and the duration of application varies from 8 to 24 hours; refer to the automatic gluing machine operator's labeling for product-specific recommendations. 1209 (Patch Applied - Provider: Pastor Masters RN) methocarbamol (ROBAXIN) tablet 750 mg (COMPLETED) 750 mg, Oral, Once, 1 dose, On Sat10/21/24 at 1200 1208 (Given - Provid er: Pastor Masters RN) Scheduled Medication Order 10/25/2024 10/26/2024 10/27/2024 HYDROcodone-acetaminophen (NORCO) 5-325 MG per tablet 1 tablet (COMPLETED) 1 tablet, Oral, Once, 1 dose, On Sat10/27/24 at 1615, Maximum dose of acetaminophen is 4000 mg from all sources in 24 hours. 163 (Given - Provid er: Erica Hawkins RN) ketorolac (TORADOL) injection 15 mg (COMPLETED) 15 mg, IntraVENous, ONCE, 1 dose, On Sat10/27/24 at 2100, Do not administer for more than 5 days. 2101 (Given - Provid er: Margaux Velázquez RN) lidocaine 4 % external patch 1 patch 1 patch, TransDERmal, Administer over 12 Hours, Once, On Sat10/27/24 at 1615, For 1 dose, Apply patch to lower back pain, rt flank. The automatic gluing machine operator's recommendations for the number of patches that can be applied within a 24-hour period varies from 1 to 4 times daily and the duration of application varies from 8 to 24 hours; refer to the automatic gluing machine operator's labeling for product-specific recommendations. 1630 (Patch Applied - Provider: Erica Hawkins RN) PRN Medication Order 10/25/2024 10/26/2024 10/27/2024 iopamidol (ISOVUE-370) 76 % injection 75 mL (COMPLETED) 75 mL, IntraVENous, IMG ONCE PRN, 1 dose, Starting on Sat10/27/24 at 1847, Until Sat10/27/24 at 1903, Other 1903 (Given - Provid er: Arlyn Quitman) <item><item><item><item><item><item> Privacy Markings (unrecogniz ed section and [...] consent of such client. Section Author: Susana Hrenandez PROHIBITION ON REDISCLOSURE OF CONFIDENTIAL INFORMATION This [...] section and content) DATE CREATED AUTHOR 09/03/2022 [facility] DATE CREATED AUTHOR AUTHOR'S ORGANIZ ATION 10/09/2022 [facility] DATE CREATED AUTHOR AUTHOR'S ORGANIZ ATION 02/17/2023 [facility] DATE CREATED AUTHOR AUTHOR'S ORGANIZ ATION 05/03/2023 [facility] DATE CREATED AUTHOR AUTHOR'S ORGANIZ ATION 05/03/2023 [facility] DATE CREATED AUTHOR AUTHOR'S ORGANIZ ATION 05/12/2023 [facility] DATE CREATED AUTHOR AUTHOR'S ORGANIZ ATION 08/15/2023 [facility] DATE CREATED AUTHOR AUTHOR'S ORGANIZ ATION 08/30/2023 [facility] DATE CREATED AUTHOR AUTHOR'S ORGANIZ ATION 09/05/2023 [facility] DATE CREATED AUTHOR AUTHOR'S ORGANIZ ATION 09/18/2023 [facility] DATE CREATED AUTHOR AUTHOR'S ORGANIZ ATION 09/22/2023 [facility] DATE CREATED AUTHOR AUTHOR'S ORGANIZ ATION 10/20/2023 [facility] DATE CREATED AUTHOR AUTHOR'S ORGANIZ ATION 10/23/2023 [facility] DATE CREATED AUTHOR AUTHOR'S ORGANIZ ATION 10/28/2023 [facility] DATE CREATED AUTHOR AUTHOR'S ORGANIZ ATION 10/28/2023 [facility] DATE CREATED AUTHOR AUTHOR'S ORGANIZ ATION 11/01/2023 [facility] DATE CREATED AUTHOR AUTHOR'S ORGANIZ ATION 11/30/2023 [facility] DATE CREATED AUTHOR AUTHOR'S ORGANIZ ATION 01/01/2024 [facility] DATE CREATED AUTHOR AUTHOR'S ORGANIZ ATION 01/22/2024 [facility] DATE CREATED AUTHOR AUTHOR'S ORGANIZ ATION 01/26/2024 [facility] DATE CREATED AUTHOR AUTHOR'S ORGANIZ ATION 01/26/2024 [facility] DATE CREATED AUTHOR AUTHOR'S ORGANIZ ATION 03/27/2024 [facility] DATE CREATED AUTHOR AUTHOR'S ORGANIZ ATION 04/25/2024 [facility] DATE CREATED AUTHOR AUTHOR'S ORGANIZ ATION 05/19/2024 [facility] DATE CREATED AUTHOR AUTHOR'S ORGANIZ ATION 06/24/2024 [facility] DATE CREATED AUTHOR AUTHOR'S ORGANIZ ATION 09/01/2024 [facility] DATE CREATED AUTHOR AUTHOR'S ORGANIZ ATION 09/25/2024 [facility] DATE CREATED AUTHOR AUTHOR'S ORGANIZ ATION 10/12/2024 [facility] DATE CREATED AUTHOR AUTHOR'S ORGANIZ ATION 10/17/2024 [facility] DATE CREATED AUTHOR AUTHOR'S ORGANIZ ATION 10/19/2024 [facility] DATE CREATED AUTHOR AUTHOR'S ORGANIZ ATION 10/23/2024 [facility] DATE CREATED AUTHOR AUTHOR'S ORGANIZ ATION 10/24/2024 [facility] DATE CREATED AUTHOR AUTHOR'S ORGANIZ ATION 10/25/2024 [facility] DATE CREATED AUTHOR AUTHOR'S ORGANIZ ATION 10/26/2024 [facility] DATE CREATED AUTHOR AUTHOR'S ORGANIZ ATION 10/27/2024 [facility] DATE CREATED AUTHOR AUTHOR'S ORGANIZ ATION 10/30/2024 [facility] DATE CREATED AUTHOR AUTHOR'S ORGANIZ ATION 10/30/2024 [facility] DATE CREATED AUTHOR AUTHOR'S ORGANIZ ATION 10/30/2024 [facility] DATE CREATED AUTHOR AUTHOR'S ORGANIZ ATION 11/02/2024 [facility] DATE CREATED AUTHOR AUTHOR'S ORGANIZ ATION 11/02/2024 [facility] DATE CREATED AUTHOR AUTHOR'S ORGANLIBIA ATION 11/03/2024 [facility] FOR RECORDS PERTAINING TO PATIENTS WHO [...] BE BASED ON THE PRIMARY CLINICAL RECORDS. [facility] [employer] [facility]. provides no warranty or guarantee of the accuracy or completeness of information in this document.
== END 2024-11-05 05:05 | disposition home or self-care (01) ==
PROVIDERS: Emergency Provider Emergency Medicine; Visit Provider Emergency Medicine
DX: G89.29 Other chronic pain (principal); M45.2 Ankylosing spondylitis of cervical region; S16.1XXA Strain of muscle, fascia and tendon at neck level, initial encounter; X58.XXXA Exposure to other specified factors, initial encounter; Z76.5 Malingerer [conscious simulation]; M25.512 Pain in left shoulder; F41.9 Anxiety disorder, unspecified; M79.7 Fibromyalgia; F32.A Depression, unspecified; F17.210 Nicotine dependence, cigarettes, uncomplicated; Z79.899 Other long term (current) drug therapy
CPT/HCPCS: 99284